=== PATIENT | male | born 1935 | race Caucasian/White ===

== ENCOUNTER 2017-12-22 13:00 | Inpatient (IN) | payer MEDICARE, OTHER ==
[~2017-12-22] VITALS: Ht 172.7 cm; Wt 73.9 kg
[2017-12-22] VITALS (15 sets, daily range): BP systolic 91–165; BP diastolic 51–82
[2017-12-22] MEDS ORDERED: NS 1000ml 2,200 ML IVLG ONE (13:15)
[2017-12-22] MEDS ORDERED: Piperacillin/Tazobactam 3.375 GM in NS 110 ML IVPB ONE (13:15)
[2017-12-22] MEDS ORDERED: Vancomycin 1.5gm/D5W 250ml 250 ML IVPB ONE (13:15)
--- NOTE | 2017-12-22 13:18 | Emergency Room Report ---
History of Present Illness General Chief Complaint: Dyspnea/Respdistress Source: EMS Present Illness HPI 82-year-old male presents with respiratory arrest and agonal respirations according to EMS after choking in the senior care while eating. Patient became pulseless here in the department and underwent a round of CPR while being bag mask ventilations and concomitantly intubated. He had return of spontaneous circulation immediately after one round of compressions and a single dose of epi. Allergies: Coded Allergies: No Known Allergies (Unverified , 12/22/17) Patient History Past Medical History: see triage record Reviewed Nursing Documentation: PMH: Agreed, PSxH: Agreed Nursing Documentation-PMH Hx Hypertension: Yes Review of Systems All Other Systems: negative except mentioned in HPI Physical Exam Vital Signs Date Time Temp Pulse Resp B/P (MAP) Pulse Ox O2 Delivery O2 Flow Rate FiO2 12/22/17 12:56 97.5 109 11 73/38 Sp02 EP Interpretation: reviewed, abnormal General Appearance: severe distress, lethargic Head: normocephalic, atraumatic Eyes: bilateral eye normal inspection, bilateral eye PERRL ENT: normal ENT inspection, normal pharynx - ricotta cheese like food in oropharynx, dry mucus membranes Neck: normal inspection, full range of motion, supple, supple/symm/no masses Respiratory: chest non-tender, lungs clear, no rhonchi - bilateral coarse rhonchi, chest symmetrical, palpation of chest normal Cardiovascular #1: normal peripheral pulses, regular rate, rhythm Cardiovascular #2: 2+ carotid (R), 2+ carotid (L) Gastrointestinal: normal inspection, non tender, soft, no mass, no guarding, no rebound Rectal: deferred Genitourinary: normal inspection, no CVA tenderness Musculoskeletal: back normal, gait/station normal, normal range of motion, non- tender, no calf tenderness Neurologic: responsive - unresponsive, GCS 3T Psychiatric: judgement/insight normal, memory normal, mood/affect normal, no suicidal/homicidal ideation Skin: normal color, no rash, warm/dry, normal turgor, pallor, cyanosis - facial cyanosis Lymphatic: no adenopathy Procedures Critical Care Time Critical Care Time 35 minutes excluding all procedures for need for emergent eval and management given his critical risk of airway, respiratory, and circulatory systems failing Central Line Central Line : Consent: Emergent Central Line Lumen: triple Maximal Sterile Barrier Tech: yes cap, yes mask, yes sterile gown, yes sterile gloves, yes large sterile sheet, yes hand hygiene, yes chlorhexidine prep No Max Barrier Tech Because: emergency insertion Central Line Postion: femoral (R) Anesthesia: Lidocaine Complications: none Central Line Post Position: sutured, good blood return Attempts: One Complications: None Intubation Intubation : Consent: Emergent Intubation Method: orotracheal Tube Size (cm): 7.0 Medications: Etomidate, Succinylcholine Breath Sounds after Intubation: equal Intubation Complications: no complications Post Intubation Xray: Yes Attempts: One Patient Tolerated: Well Complications: None Medical Decision Making Diagnostic Impression: Primary Impression: Respiratory distress Additional Impressions: Aspiration into airway Aspiration into respiratory tract ER Course patient coded and had immediate ROSC with one round of CPR and Epi, was intubate prior to code, and had orders initiated including broad-spectrum antibx for aspiration pneumonia. He remained hemodynamically stable and was admitted to the ICU after I spoke with Dr. Soliz. Chest X-Ray Diagnostic Results Chest X-Ray Diagnostic Results #1: Chest X-Ray Ordered: Yes # of Views/Limited/Complete: 1 View Indication: Shortness of Breath EP Interpretation: Yes Interpretation: other - ETT above mary Chest X-Ray Diagnostic Results #2: Chest X-Ray Ordered: Yes # of Views/Limited/Complete: 1 View Indication: Shortness of Breath EP Interpretation: Yes Interpretation: other - ET tube advanced now beyond clavicles and above the mary, evidence of aspiration with bilateral consolidation Last Vital Signs Date Time Temp Pulse Resp B/P (MAP) Pulse Ox O2 Delivery O2 Flow Rate FiO2 12/22/17 12:56 97.5 109 11 73/38 Status: improved Reevaluation Impression Potassium elevated, but this is likely hemolysis, redraw sent to the lab Disposition: ADMITTED INPATIENT Condition: Critical Physician Consult: Dr. Soliz agreed to admit this patient to the ICU ARMOND GARCIA M.D Dec 22, 2017 13:18
[2017-12-22 13:26] LABS: BASOPHILS % (AUTO) 0.8 % (0.0-2.0); EOSINOPHILS % (AUTO) 3.1 % (0.0-3.0); HEMATOCRIT 44.7 % (42.0-52.0); HEMOGLOBIN 13.5 G/DL (14.2-18.0); LYMPHOCYTES % (AUTO) 46.1 % (20.0-45.0); MEAN CORPUSCULAR VOLUME 86 FL (80-99); MONOCYTES % (AUTO) 8.9 % (1.0-10.0); NEUTROPHILS % (AUTO) 41.1 % (45.0-75.0); PLATELET COUNT 228 K/UL (150-450); RED BLOOD COUNT 5.23 M/UL (4.70-6.10); RED CELL DISTRIBUTION WIDTH 12.5 % (11.6-14.8); WHITE BLOOD COUNT 11.5 K/UL (4.8-10.8)
[2017-12-22] MEDS ORDERED: LISINOPRIL5 MG ORAL (13:30)
[2017-12-22] MEDS ORDERED: ASPIR 8181 MG ORAL (13:30)
[2017-12-22] MEDS ORDERED: MILK OF MA400 MG/51 ORAL (13:30)
[2017-12-22] MEDS ORDERED: MULTIVITAMINS1 EA13 ORAL (13:30)
[2017-12-22] MEDS ORDERED: METOPROLOL TART25 MG ORAL (13:30)
[2017-12-22] MEDS ORDERED: KLONOPIN0.5 MG ORAL (13:30)
[2017-12-22] MEDS ORDERED: TAMSULOSIN HCL0.4 MG ORAL (13:30)
[2017-12-22] MEDS ORDERED: Zosyn 3.375gm inj ONE (13:38)
[2017-12-22] MEDS ORDERED: Succinylcholine 20mg/ml 10ml vial ONE (13:46)
[2017-12-22] MEDS ORDERED: Etomidate 40mg/20ml Inj IV ONE (13:46)
[2017-12-22 13:51] LABS: ALANINE AMINOTRANSFERASE 21 U/L (12-78); ALBUMIN 3.1 G/DL (3.4-5.0); ALBUMIN/GLOBULIN RATIO 0.8 (1.0-2.7); ALKALINE PHOSPHATASE 60 U/L (46-116); ANION GAP 6 mmol/L (5-15); ASPARTATE AMINO TRANSFERASE 42 U/L (15-37); BILIRUBIN,TOTAL 0.5 MG/DL (0.2-1.0); BLOOD UREA NITROGEN 16 mg/dL (7-18); CALCIUM 8.3 MG/DL (8.5-10.1); CARBON DIOXIDE 25 MMOL/L (21-32); CHLORIDE 106 MMOL/L (98-107); CREATINE KINASE 123 U/L (26-308); CREATININE 1.1 MG/DL (0.55-1.30); SODIUM 137 MMOL/L (136-145); TRIGLYCERIDES 71 MG/DL (30-150)
[2017-12-22 13:52] LABS: POTASSIUM 8.3 MMOL/L (3.5-5.1)
[2017-12-22] MEDS ORDERED: ZYPREXA2.5 MG ORAL (14:26)
[2017-12-22] MEDS ORDERED: TYLENOL EXTRA500 MG ORAL (14:26)
[2017-12-22] MEDS ORDERED: fentaNYL 100 mcg/2 mL IV ONE ×2 (14:35→15:15)
[2017-12-22 14:38] LABS: APPEARANCE,URINE CLEAR; BILIRUBIN, URINE NEGATIVE (NEGATIVE); COLOR,URINE PALE YELLOW; GLUCOSE, URINE (UA) 3+ (NEGATIVE); KETONES,URINE NEGATIVE (NEGATIVE); LEUKOCYTE ESTERASE ,URINE 2+ (NEGATIVE); NITRITE,URINE NEGATIVE (NEGATIVE); PH,URINE 6 (4.5-8.0); PROTEIN,URINE 3+ (NEGATIVE); UROBILINOGEN,URINE NORMAL MG/DL (0.0-1.0)
--- NOTE | 2017-12-22 15:56 | Diagnostic Imaging Report ---
Indication: Shortness breath, status post endotracheal tube placement Technique: One view of the chest Comparison: none Findings: There is an endotracheal tube in place, tip projecting at or just above the thoracic inlet and likely at the level of the vocal cords. Interstitial and alveolar infiltrates are seen in the right upper lobe. Perihilar infiltrate and possible mass/adenopathy is demonstrated on the left. There is also diffuse interstitial disease bilaterally. The pleural spaces are clear. The heart size is normal. There are overlying defibrillator paddles Impression: High position of endotracheal tube, as described Bilateral residual and alveolar infiltrates versus edema, as described. Left perihilar disease, most likely consolidation but underlying mass is stable. Recommend follow-up to resolution.
--- NOTE | 2017-12-22 16:27 | Consultation ---
Consult Note Consult Note 82-year-old male presents with respiratory arrest and agonal respirations after choking episode in the intermediate while eating. Patient became pulseless in the ER department and underwent a round of CPR and was intubated. Patient recovered and now admitted to ICU. I was called to assist with the ventilator. Patient unable to give any history at this time. Allergies: No Known Allergies (Unverified , 12/22/17) PMH hypertension possible dementia possible psychiatric disorder MEDS and ALLERGIES reviewed PHYSICAL Sp02 EP Interpretation: reviewed, normal General Appearance: unresponsive Head: normocephalic, atraumatic Eyes: bilateral eye normal inspection Neck: normal inspection, carotid 2+ Respiratory: decreased breath sounds, minimal rhonchi Cardiovascular #1: regular rate, rhythm, no murmur without MRG Gastrointestinal: non tender, soft, non-distended, no HSM Musculoskeletal: no CC Neurologic: reduced LOC Laboratory Tests Test 12/22/17 13:11 12/22/17 14:10 12/22/17 15:00 White Blood Count 11.5 K/UL (4.8-10.8) H Red Blood Count 5.23 M/UL (4.70-6.10) Hemoglobin 13.5 G/DL (14.2-18.0) L Hematocrit 44.7 % (42.0-52.0) Mean Corpuscular Volume 86 FL (80-99) Mean Corpuscular Hemoglobin 25.9 PG (27.0-31.0) L Mean Corpuscular Hemoglobin Concent 30.2 G/DL (32.0-36.0) L Red Cell Distribution Width 12.5 % (11.6-14.8) Platelet Count 228 K/UL (150-450) Mean Platelet Volume 6.8 FL (6.5-10.1) Neutrophils (%) (Auto) 41.1 % (45.0-75.0) L Lymphocytes (%) (Auto) 46.1 % (20.0-45.0) H Monocytes (%) (Auto) 8.9 % (1.0-10.0) Eosinophils (%) (Auto) 3.1 % (0.0-3.0) H Basophils (%) (Auto) 0.8 % (0.0-2.0) Prothrombin Time 10.2 SEC (9.30-11.50) Prothromb Time International Ratio 1.0 (0.9-1.1) Activated Partial Thromboplast Time 27 SEC (23-33) Sodium Level 137 MMOL/L (136-145) Potassium Level 8.3 MMOL/L (3.5-5.1) *H 3.3 MMOL/L (3.5-5.1) #L Chloride Level 106 MMOL/L (98-107) Carbon Dioxide Level 25 MMOL/L (21-32) Anion Gap 6 mmol/L (5-15) Blood Urea Nitrogen 16 mg/dL (7-18) Creatinine 1.1 MG/DL (0.55-1.30) Estimat Glomerular Filtration Rate mL/min (>60) Glucose Level 186 MG/DL (74-106) H Lactic Acid Level 6.50 mmol/L (0.66-2.22) H 1.20 mmol/L (0.66-2.22) Calcium Level 8.3 MG/DL (8.5-10.1) L Total Bilirubin 0.5 MG/DL (0.2-1.0) Aspartate Amino Transf (AST/SGOT) 42 U/L (15-37) H Alanine Aminotransferase (ALT/SGPT) 21 U/L (12-78) Alkaline Phosphatase 60 U/L (46-116) Total Creatine Kinase 123 U/L (26-308) Creatine Kinase MB 2.0 NG/ML (0.0-3.6) Creatine Kinase MB Relative Index 1.6 Troponin I 0.003 ng/mL (0.000-0.056) Pro-B-Type Natriuretic Peptide 134 pg/mL (0-125) H Total Protein 7.1 G/DL (6.4-8.2) Albumin 3.1 G/DL (3.4-5.0) L Globulin 4.0 g/dL Albumin/Globulin Ratio 0.8 (1.0-2.7) L Triglycerides Level 71 MG/DL (30-150) Urine Color Pale yellow Urine Appearance Clear Urine pH 6 (4.5-8.0) Urine Specific [place] 1.020 (1.005-1.035) Urine Protein 3+ (NEGATIVE) H Urine Glucose (UA) 3+ (NEGATIVE) H Urine Ketones Negative (NEGATIVE) Urine Occult Blood 1+ (NEGATIVE) H Urine Nitrite Negative (NEGATIVE) Urine Bilirubin Negative (NEGATIVE) Urine Urobilinogen Normal MG/DL (0.0-1.0) Urine Leukocyte Esterase 2+ (NEGATIVE) H Urine RBC 0-2 /HPF (0 - 0) H Urine WBC 10-15 /HPF (0 - 0) H Urine Squamous Epithelial Cells Occasional /LPF Urine Bacteria Occasional /HPF (NONE) IMPRESSION Respiratory failure choking episode hyperkalemia s/p CPA possible anoxia hypertension PLAN ventilator support support care DVT prophylaxis IV hydation monitor clinically impression, plan, and exam edited and reviewed in detail care discussed with CHIKI LIN Dec 22, 2017 16:27
[2017-12-22] MEDS: Dyna-Hex 2% Top Sol 2oz TOPIC SCH (20:04)
[2017-12-22] MEDS: Cefepime HCl 1 GM in NS 55 ML IVPB SCH (20:36)
[2017-12-22] MEDS: Heparin 5000 units/ml inj SUBQ SCH (20:37)
[2017-12-23] VITALS (39 sets, daily range): BP systolic 97–164; BP diastolic 47–96
[2017-12-23 04:35] LABS: HEMATOCRIT 33.8 % (42.0-52.0); HEMOGLOBIN 10.7 G/DL (14.2-18.0); MEAN CORPUSCULAR VOLUME 83 FL (80-99); PLATELET COUNT 169 K/UL (150-450); RED BLOOD COUNT 4.07 M/UL (4.70-6.10); RED CELL DISTRIBUTION WIDTH 11.9 % (11.6-14.8); WHITE BLOOD COUNT 10.5 K/UL (4.8-10.8)
[2017-12-23 04:47] LABS: ANION GAP 7 mmol/L (5-15); BLOOD UREA NITROGEN 13 mg/dL (7-18); CALCIUM 7.6 MG/DL (8.5-10.1); CARBON DIOXIDE 24 MMOL/L (21-32); CHLORIDE 107 MMOL/L (98-107); CREATININE 0.9 MG/DL (0.55-1.30); SODIUM 138 MMOL/L (136-145)
[2017-12-23] MEDS: Cefepime HCl 1 GM in NS 55 ML IVPB SCH ×2 (08:49→20:50)
[2017-12-23] MEDS: Pantoprazole Inj IVP SCH (08:52)
[2017-12-23] MEDS: Heparin 5000 units/ml inj SUBQ SCH ×2 (08:53→20:51)
--- NOTE | 2017-12-23 12:20 | Diagnostic Imaging Report ---
Indication: Dyspnea Technique: XRAY Chest 1v Comparison: 12/22/2017 Findings: Heart size and mediastinal contours are stable. ET tube tip above the mary. NG tube tip in the proximal stomach, side-port at the region of the gastroesophageal junction. Advancement recommended. There is interstitial opacification/edema, right greater than left. Patchy perihilar airspace opacities are again noted, slightly decreased. No pneumothorax. No acute osseous abnormality. Impression: Persistent interstitial and patchy perihilar airspace opacities, slightly decreased from the prior exam. Radiographic follow-up to resolution recommended. NG tube tip in the proximal stomach, side-port at the region of the gastroesophageal junction. Advancement is recommended.
--- NOTE | 2017-12-23 12:25 | Critical Care Progress Note ---
Assessment/Plan Assessment/Plan IMPRESSION Respiratory failure choking episode hyperkalemia s/p CPA possible anoxia hypertension PLAN ventilator support and monitor acid base support care DVT prophylaxis IV hydration monitor clinically continue to assist nutrition hope to wean next 48 hours follow up cultures impression, plan, and exam edited and reviewed in detail care discussed with RN medications/laboratory data/nursing notes/ICU care reviewed in detail note reviewed and edited care discussed with RN and RT ICU time spent 38 minutes Critical Care - Subjective Interval Events: overnight without distres care noted ICU care noted ROS Limited/Unobtainable: Yes Condition: critical EKG Rhythm: Sinus Rhythm I&O: Intake and Output 12/22/17 12/23/17 19:00 07:00 Intake Total 242.886 ml 1293.860 ml Output Total 405 ml 610 ml Balance -162.114 ml 683.860 ml Intake Oral 0 ml IV Total 192.886 ml 1263.860 ml Other 50 ml 30 ml Output Urine Total 405 ml 610 ml # Bowel Movements 1 Critical Care - Objective ET-Tube: 7.0 ET Position: 26 Last 24 Hour Vital Signs Date Time Temp Pulse Resp B/P (MAP) Pulse Ox O2 Delivery O2 Flow Rate FiO2 12/23/17 11:00 84 17 134/63 98 Mechanical Ventilator 28 12/23/17 10:31 71 15 28 12/23/17 10:30 83 17 108/54 100 Mechanical Ventilator 28 12/23/17 10:00 69 15 121/52 100 Mechanical Ventilator 28 12/23/17 10:00 15 12/23/17 09:45 73 15 119/57 99 Mechanical Ventilator 28 12/23/17 09:30 99.1 72 15 115/53 99 Mechanical Ventilator 28 12/23/17 09:15 70 15 106/48 99 Mechanical Ventilator 28 12/23/17 09:00 79 16 97/47 99 Mechanical Ventilator 28 12/23/17 08:52 14 12/23/17 08:39 81 16 28 12/23/17 08:18 28 12/23/17 08:17 28 12/23/17 08:00 84 17 129/73 99 Mechanical Ventilator 40 12/23/17 08:00 84 12/23/17 08:00 40 12/23/17 07:04 85 18 40 12/23/17 07:00 54 19 119/55 100 Mechanical Ventilator 40 12/23/17 06:00 19 1/27/18 06:00 87 19 112/54 100 Mechanical Ventilator 40 12/23/17 05:22 19 12/23/17 05:07 88 18 40 12/23/17 05:00 88 18 106/53 100 Mechanical Ventilator 40 12/23/17 05:00 21 12/23/17 04:00 100.0 98 21 114/53 100 Mechanical Ventilator 40 12/23/17 04:00 21 12/23/17 04:00 98 12/23/17 04:00 40 12/23/17 03:16 94 20 40 12/23/17 03:00 95 21 104/50 100 Mechanical Ventilator 40 12/23/17 03:00 21 12/23/17 02:00 90 21 117/50 100 Mechanical Ventilator 40 12/23/17 02:00 21 12/23/17 01:00 86 21 116/49 100 Mechanical Ventilator 40 12/23/17 01:00 21 12/23/17 00:52 85 21 40 12/23/17 00:00 99.7 83 20 103/59 100 Mechanical Ventilator 40 12/23/17 00:00 40 12/23/17 00:00 20 12/22/17 23:01 80 20 50 12/22/17 23:00 80 19 116/56 100 Mechanical Ventilator 50 12/22/17 23:00 19 12/22/17 22:00 77 17 108/51 100 Mechanical Ventilator 50 12/22/17 22:00 17 12/22/17 21:00 21 12/22/17 21:00 77 21 108/66 100 Mechanical Ventilator 50 12/22/17 20:59 77 20 50 12/22/17 20:01 19 12/22/17 20:00 77 12/22/17 20:00 50 12/22/17 20:00 77 20 112/57 100 Mechanical Ventilator 50 12/22/17 19:15 81 24 50 12/22/17 19:00 97.9 76 17 150/67 100 Mechanical Ventilator 50 12/22/17 19:00 17 12/22/17 18:00 66 20 101/53 100 Mechanical Ventilator 50 12/22/17 17:23 50 12/22/17 17:07 68 12/22/17 17:00 94.0 68 18 134/82 100 12/22/17 17:00 79 19 50 12/22/17 16:06 98.0 77 15 103/67 98 Mechanical Ventilator 12/22/17 15:56 98.0 77 16 98/65 98 Mechanical Ventilator 50 12/22/17 15:40 98.0 77 16 98/65 98 Mechanical Ventilator 12/22/17 15:23 97.5 12/22/17 15:15 77 15 91/52 97 Mechanical Ventilator 12/22/17 15:05 80 13 50 12/22/17 14:55 21 12/22/17 14:55 83 21 Mechanical Ventilator 50 12/22/17 14:45 98.0 80 18 93/53 97 Mechanical Ventilator 12/22/17 14:32 97.5 83 21 95/53 97 Mechanical Ventilator 12/22/17 14:15 97.5 85 20 103/65 96 Mechanical Ventilator 12/22/17 14:05 88 30 50 12/22/17 14:02 88 30 Mechanical Ventilator 50 12/22/17 14:02 21 12/22/17 14:00 97.5 86 20 146/75 96 Mechanical Ventilator 12/22/17 13:41 97.5 87 20 165/73 95 Mechanical Ventilator 12/22/17 13:40 20 12/22/17 13:34 20 12/22/17 12:56 97.5 109 11 73/38 Labs: Sp02 EP Interpretation: reviewed, normal General Appearance: unresponsive Head: normocephalic, atraumatic Eyes: bilateral eye normal inspection Neck: normal inspection, carotid 2+ Respiratory: decreased breath sounds, minimal rhonchi Cardiovascular #1: regular rate, rhythm, no murmur without MRG Gastrointestinal: non tender, soft, non-distended, no HSM Musculoskeletal: no CC Neurologic: reduced LOC Micro: Microbiology Date/Time Source Procedure Growth Status 12/22/17 13:11 Blood Blood Culture - Preliminary Resulted 12/22/17 14:15 Nasal Nares Influenza Types A,B Antigen (GUNJAN) - Final Complete 12/22/17 14:10 Urine,Clean Catch Urine Culture - Preliminary Resulted CHIKI VAZQUEZ Dec 23, 2017 12:25
[2017-12-23] MEDS ORDERED: 1/2 NS 1000ml IV ONE ×2 (15:36→15:38)
--- NOTE | 2017-12-23 15:36 | Infectious Diseases Prog Note ---
Assessment/Plan Assessment/Plan Full consult dictated: A) 1) sepsis, gram + bacteremia, aspiration pna, uti, leukocytosis, fevers 2) pmh noted 3) allergies - negative P) 1) vancomycin, cefepime and flagyl 2) check cultures, labs and chest x-ray 3) thank you Subjective Allergies: Coded Allergies: No Known Allergies (Unverified , 12/22/17) Objective Vital Signs Last 24 Hour Vital Signs Date Time Temp Pulse Resp B/P (MAP) Pulse Ox O2 Delivery O2 Flow Rate FiO2 12/23/17 14:32 73 12 21 12/23/17 14:30 85 17 146/72 99 Mechanical Ventilator 28 12/23/17 14:00 78 16 125/59 99 Mechanical Ventilator 28 12/23/17 13:30 80 14 121/56 99 Mechanical Ventilator 28 12/23/17 13:00 18 12/23/17 13:00 95 18 136/74 99 Mechanical Ventilator 28 12/23/17 12:36 17 12/23/17 12:30 98 18 162/80 99 Mechanical Ventilator 28 12/23/17 12:29 110 17 28 12/23/17 12:00 98 12/23/17 12:00 99.1 96 18 156/89 100 Mechanical Ventilator 28 12/23/17 11:30 90 19 151/71 100 Mechanical Ventilator 28 12/23/17 11:00 84 17 134/63 98 Mechanical Ventilator 28 12/23/17 11:00 17 12/23/17 10:31 71 15 28 12/23/17 10:30 83 17 108/54 100 Mechanical Ventilator 28 12/23/17 10:00 69 15 121/52 100 Mechanical Ventilator 28 12/23/17 10:00 15 12/23/17 09:45 73 15 119/57 99 Mechanical Ventilator 28 12/23/17 09:30 99.1 72 15 115/53 99 Mechanical Ventilator 28 12/23/17 09:15 70 15 106/48 99 Mechanical Ventilator 28 12/23/17 09:00 79 16 97/47 99 Mechanical Ventilator 28 12/23/17 08:52 14 12/23/17 08:39 81 16 28 12/23/17 08:18 28 12/23/17 08:17 28 12/23/17 08:00 84 17 129/73 99 Mechanical Ventilator 40 12/23/17 08:00 84 12/23/17 08:00 40 12/23/17 07:04 85 18 40 12/23/17 07:00 54 19 119/55 100 Mechanical Ventilator 40 12/23/17 06:00 19 12/23/17 06:00 87 19 112/54 100 Mechanical Ventilator 40 12/23/17 05:22 19 12/23/17 05:07 88 18 40 12/23/17 05:00 88 18 106/53 100 Mechanical Ventilator 40 12/23/17 05:00 21 12/23/17 04:00 100.0 98 21 114/53 100 Mechanical Ventilator 40 12/23/17 04:00 21 12/23/17 04:00 98 12/23/17 04:00 40 12/23/17 03:16 94 20 40 12/23/17 03:00 95 21 104/50 100 Mechanical Ventilator 40 12/23/17 03:00 21 12/23/17 02:00 90 21 117/50 100 Mechanical Ventilator 40 12/23/17 02:00 21 12/23/17 01:00 86 21 116/49 100 Mechanical Ventilator 40 12/23/17 01:00 21 12/23/17 00:52 85 21 40 12/23/17 00:00 99.7 83 20 103/59 100 Mechanical Ventilator 40 12/23/17 00:00 40 12/23/17 00:00 20 12/22/17 23:01 80 20 50 12/22/17 23:00 80 19 116/56 100 Mechanical Ventilator 50 12/22/17 23:00 19 12/22/17 22:00 77 17 108/51 100 Mechanical Ventilator 50 12/22/17 22:00 17 12/22/17 21:00 21 12/22/17 21:00 77 21 108/66 100 Mechanical Ventilator 50 12/22/17 20:59 77 20 50 12/22/17 20:01 19 12/22/17 20:00 77 12/22/17 20:00 50 12/22/17 20:00 77 20 112/57 100 Mechanical Ventilator 50 12/22/17 19:15 81 24 50 12/22/17 19:00 97.9 76 17 150/67 100 Mechanical Ventilator 50 12/22/17 19:00 17 12/22/17 18:00 66 20 101/53 100 Mechanical Ventilator 50 1/26/18 17:23 50 12/22/17 17:07 68 12/22/17 17:00 94.0 68 18 134/82 100 12/22/17 17:00 79 19 50 12/22/17 16:06 98.0 77 15 103/67 98 Mechanical Ventilator 12/22/17 15:56 98.0 77 16 98/65 98 Mechanical Ventilator 50 12/22/17 15:40 98.0 77 16 98/65 98 Mechanical Ventilator Height (Feet): 5 Height (Inches): 9.00 Weight (Pounds): 146 Microbiology Date/Time Source Procedure Growth Status 12/22/17 13:26 Blood Blood Culture - Preliminary Resulted 12/22/17 13:11 Blood Blood Culture - Preliminary Resulted 12/22/17 19:30 Sputum Induced Gram Stain - Final Resulted 12/22/17 19:30 Sputum Induced Sputum Culture Pending Resulted 12/22/17 14:15 Nasal Nares Influenza Types A,B Antigen (GUNJAN) - Final Complete 12/22/17 14:10 Urine,Clean Catch Urine Culture - Preliminary Resulted Laboratory Tests Test 12/22/17 17:14 12/23/17 04:00 Arterial Blood pH 7.336 (7.350-7.450) 7.430 (7.350-7.450) Arterial Blood Partial Pressure CO2 44.6 mmHg (35.0-45.0) 34.2 mmHg (35.0-45.0) L Arterial Blood Partial Pressure O2 86.8 mmHg (75.0-100.0) 154.4 mmHg (75.0-100.0) H Arterial Blood HCO3 23.3 mmol/L (22.0-26.0) 22.2 mmol/L (22.0-26.0) Arterial Blood Oxygen Saturation 95.7 % (92.0-98.0) 98.6 % (92.0-98.0) H Arterial Blood Base Excess -2.6 -1.5 Rhett Test Positive Positive White Blood Count 10.5 K/UL (4.8-10.8) Red Blood Count 4.07 M/UL (4.70-6.10) L Hemoglobin 10.7 G/DL (14.2-18.0) L Hematocrit 33.8 % (42.0-52.0) L Mean Corpuscular Volume 83 FL (80-99) Mean Corpuscular Hemoglobin 26.3 PG (27.0-31.0) L Mean Corpuscular Hemoglobin Concent 31.7 G/DL (32.0-36.0) L Red Cell Distribution Width 11.9 % (11.6-14.8) Platelet Count 169 K/UL (150-450) Mean Platelet Volume 6.8 FL (6.5-10.1) Neutrophils (%) (Auto) % (45.0-75.0) Lymphocytes (%) (Auto) % (20.0-45.0) Monocytes (%) (Auto) % (1.0-10.0) Eosinophils (%) (Auto) % (0.0-3.0) Basophils (%) (Auto) % (0.0-2.0) Differential Total Cells Counted 100 Neutrophils % (Manual) 90 % (45-75) H Lymphocytes % (Manual) 7 % (20-45) L Monocytes % (Manual) 3 % (1-10) Eosinophils % (Manual) 0 % (0-3) Basophils % (Manual) 0 % (0-2) Band Neutrophils 0 % (0-8) Platelet Estimate Adequate Platelet Morphology Normal Sodium Level 138 MMOL/L (136-145) Potassium Level 4.0 MMOL/L (3.5-5.1) Chloride Level 107 MMOL/L (98-107) Carbon Dioxide Level 24 MMOL/L (21-32) Anion Gap 7 mmol/L (5-15) Blood Urea Nitrogen 13 mg/dL (7-18) Creatinine 0.9 MG/DL (0.55-1.30) Estimat Glomerular Filtration Rate mL/min (>60) Glucose Level 105 MG/DL (74-106) Calcium Level 7.6 MG/DL (8.5-10.1) L Current Medications Medications (Trade) Dose Ordered Sig/Mckenzie Route PRN Reason Start Time Stop Time Status Last Admin Dose Admin Cefepime HCl 1 gm/ Sodium Chloride 55 ml @ 110 mls/hr EVERY 12 HOURS IVPB 12/22/17 21:00 12/29/17 20:59 12/23/17 08:49 Chlorhexidine Gluconate (Liz-Hex 2%) 1 applic Q24H TOPIC 12/22/17 20:00 01/21/18 19:59 12/22/17 20:04 Heparin Sodium (Porcine) (Heparin 5000 units/ml) 5,000 units EVERY 12 HOURS SUBQ 12/22/17 21:00 01/21/18 20:59 12/23/17 08:53 Metronidazole 100 ml @ 100 mls/hr Q8HR IVPB 12/22/17 22:00 12/29/17 21:59 12/23/17 14:39 Pantoprazole (Protonix) 40 mg DAILY IVP 12/23/17 09:00 01/22/18 08:59 12/23/17 08:52 Propofol 100 ml @ 0 mls/hr Q24H IV 12/23/17 07:30 12/25/17 07:29 12/23/17 08:52 Sodium Chloride 1,000 ml @ 100 mls/hr Q10H IV 12/22/17 16:30 01/21/18 16:29 12/23/17 12:36 Vancomycin HCl (Vanco rx to dose) 1 ea DAILY PRN MISC Per rx protocol 12/23/17 15:30 01/22/18 15:29 Vancomycin HCl 1 gm/Dextrose 275 ml @ 183.708 mls/hr Q24H IVPB 12/24/17 16:00 12/29/17 15:59 Vancomycin HCl/ Dextrose 250 ml @ 125 mls/hr ONCE ONCE IVPB 12/23/17 16:30 12/23/17 18:29 MIKKI VIVAS Dec 23, 2017 15:36
[2017-12-23] MEDS ORDERED: Tubing IV Secondary IV ONE (15:38)
[2017-12-23] MEDS ORDERED: Vancomycin 1.5 GM/D5W 250ML IVPB ONE (16:30)
--- NOTE | 2017-12-23 19:15 | History and Physical Report ---
DATE OF ADMISSION: 12/22/2017 CHIEF COMPLAINT: Choking on food. HISTORY OF PRESENT ILLNESS: This is an 82-year-old male, who is one of my patients from [facility]. The patient apparently choked on food, developed respiratory failure, and transported by paramedics to this hospital. The patient was already seen by Pulmonary Dr. Andrade. He had a full CPR in the ED. At this point, the microbiology show gram positive cocci blood cultures. The patient is intubated and he is on a ventilator. PAST MEDICAL HISTORY: 1. Organic brain syndrome. 2. Hypertensive cardiovascular disease. 3. Paranoid schizophrenia. 4. Hyperlipidemia. 5. Benign prostatic hypertrophy. MEDICATIONS: correction medications, Tylenol p.r.n., baby aspirin, Klonopin, lisinopril, milk of magnesia, metoprolol, multivitamin, Zyprexa, tamsulosin. ALLERGIES: No known drug allergies. FAMILY HISTORY: Unable to obtain secondary to mental status. REVIEW OF SYSTEMS: Unable to obtain secondary to mental status. PHYSICAL EXAMINATION: GENERAL: This is an elderly cachectic male, who is on the ventilator. VITAL SIGNS: Blood pressure 106/48, pulse 70, respirations 15, oxygen saturation is 99%. HEENT: Head is normocephalic and atraumatic. Pupils are equal, round, and reactive to light and accommodation consensually. The patient is intubated transorally. NECK: Supple. Trachea midline. There was no lymphadenopathy or thyromegaly. LUNGS: Bilateral rhonchi. HEART: Regular rate and rhythm without rubs, murmurs, or gallops. ABDOMEN: Soft and nontender. Bowel sounds were active. EXTREMITIES: No clubbing, cyanosis, or edema. NEUROLOGICAL: He is sedated. There are no gross focal findings. LABORATORY AND ANCILLARY DATA: From CBC white count 10,500, hemoglobin 10.7. On admission, his hemoglobin was 13.5. Serum chemistry within normal limits. Lactic acid on admission was 1.2. Urinalysis on admission was essentially negative. As mentioned, earlier blood culture is significantly positive for gram-positive cocci in clusters. EKG, sinus rhythm with premature atrial complexes, low-voltage QRS, could not rule out old anteroseptal myocardial infarction. ASSESSMENT: 1. Aspiration episode with most likely aspiration and pneumonia in progress. 2. Gram-positive cocci sepsis, rule out pneumococcal sepsis versus Staphylococcus aureus sepsis. 3. Organic brain syndrome. 4. Hypertensive cardiovascular disease. 5. Paranoid schizophrenia. 6. Hyperlipidemia. 7. Benign prostatic hypertrophy. PLAN: 1. Currently, the patient is intubated. 2. Broad-spectrum IV antibiotics with MRSA or MSSA and also pneumococcal sepsis in mind. 3. Infectious Disease and Pulmonary consults. Ervin Mario M.D. DR: Navid JOB#: [id number] CC: HUONG
[2017-12-23] MEDS: Dyna-Hex 2% Top Sol 2oz TOPIC SCH (20:02)
[2017-12-24] VITALS (40 sets, daily range): BP systolic 117–173; BP diastolic 50–93
--- NOTE | 2017-12-24 01:45 | Consultation ---
DATE OF CONSULTATION: 12/23/2017 INFECTIOUS DISEASES CONSULTATION CONSULTING PHYSICIAN: Reggie Mckinley M.D. ATTENDING PHYSICIAN: Ervin Mario M.D. REASON FOR CONSULTATION: Gram-positive bacteremia, sepsis, fevers, leukocytosis, pneumonia, and UTI. PATIENT'S CHIEF COMPLAINT COMING TO HOSPITAL: Choking episode and respiratory failure. HISTORY OF PRESENT ILLNESS: This is an 82-year-old male, who comes in from the [facility], who had a choking episode and now is in respiratory failure. The patient is on a bed in [facility] ICU. Infectious Disease consultation was requested because the patient also has gram-positive bacteremia. The patient's workup also shows in addition to pneumonia, he has UTI. The patient is septic with fevers and leukocytosis. He is currently not on pressors. He is on vent. The patient was placed on vancomycin, Rocephin, and Flagyl pending workup. MAR was noted. Orders were noted. Notes were reviewed. Case was discussed with RN. PAST MEDICAL HISTORY: The patient's past medical history obtained from the records includes history of the following. The patient has history of dementia, history of BPH, history of hypertension, osteoarthritis, paranoid schizophrenia, anemia, anxiety disorder, and hyperlipidemia. MEDICATIONS: Upon reviewing the MAR, he is on the following medications. He is on vancomycin. He is on Protonix. He is on propofol. He is on Flagyl, Rocephin, and vancomycin. He is on chlorhexidine. He is on potassium and sodium. Outside medications were noted and reconciliated. ALLERGIES: No known drug allergies. SOCIAL HISTORY: Per the records. No mention of smoking, alcohol, or drug abuse. FAMILY HISTORY: Per the records. No mention of exposure to tuberculosis or cancer. REVIEW OF SYSTEMS: CONSTITUTIONAL: The patient has generalized weakness and fatigue. He is poorly responsive. He also had fever. No pressors at this time. HEAD AND NECK: Orally intubated. CARDIAC: No pressors. GASTROINTESTINAL: No nausea, vomiting, or diarrhea. GENITOURINARY: He has a Anderson. PULMONARY: He is on a vent. Some secretions. SKIN: No new rash. NEUROLOGICAL: No seizures. PHYSICAL EXAMINATION: VITAL SIGNS: Temperature is 99.1 degrees, T-max is 100.0 degrees, pulse rate has been as high as 110, respiratory rate 12, blood pressure 146/72, saturation 99% on FiO2 of 21% to 28%. He is currently on a vent, in respiratory failure. HEAD AND NECK: Oral exam, no thrush. Eye exam, no icterus. Normocephalic. He is orally intubated. could not assess. Neck is supple. HEART: Regular. No obvious gallop or murmur. ABDOMEN: Soft. Positive bowel sounds. LUNGS: Few bilateral rhonchi and rales. SKIN: No rash. No scars. MUSCULOSKELETAL: No effusion. Legs are without cellulitis. PERIPHERAL VASCULAR: No cyanosis or gangrene. RECTAL: Deferred. GENITOURINARY: He has Anderson. Urine is slightly cloudy. LINES: Line sites without phlebitis. NEUROLOGICAL: Awake and responsive. LABORATORY DATA: Laboratory data as follows. White count was 11.5 and now it is 10.5, hemoglobin 10.7. Creatinine is 0.9. Chest x-ray shows persistent interstitial and patchy perihilar airspace disease chest x-ray was noted and reviewed. Previous chest x-ray showed bilateral alveolar infiltrates. Report was noted. White count on admission 11.5. UA had 10-15 white blood cells, 2+ leukocyte esterase. Cultures at this time, blood cultures in both bottles had gram-positive cocci in clusters, identification pending. Urine culture pending. Influenza is negative. Sputum culture is pending. ASSESSMENT AND PLAN: 1. The patient has gram-positive bacteremia, sepsis, leukocytosis, and fevers, likely aspiration pneumonia with possible healthcare-acquired pneumonia. The patient had a choking episode, which suggests aspiration pneumonia. There is risk of methicillin-resistant Staphylococcus aureus and gram-negatives also. The patient has what looks like urinary tract infection in addition to pneumonia with sepsis. Continue vancomycin, Rocephin, and Flagyl for possible antibiotic coverage. Check identification of blood cultures. Check urine culture and sputum culture. Check followup labs. Check chest x-ray. Continue vancomycin, Rocephin, and Flagyl for now. Continue intensive care unit care. 2. Respiratory failure, on ventilator. 3. Dementia. 4. Benign prostatic hypertrophy. 5. Essential hypertension. 6. Osteoarthritis. 7. Paranoid schizophrenia. 8. Anemia. 9. Anxiety. 10. Hyperlipidemia. 11. No known allergies. 12. Social history negative. 13. Family history noncontributory. 14. MAR was noted. 15. Case was discussed with RN. 16. Continue treatment per primary consultants. 17. Intensive care unit care. 18. Skin care protocol. 19. Notes and records were noted. 20. Orders were entered. Reggie Mckinley M.D. DR: William JOB#: [id number] CC:
[2017-12-24 04:29] LABS: BASOPHILS % (AUTO) 0.5 % (0.0-2.0); EOSINOPHILS % (AUTO) 1.6 % (0.0-3.0); HEMATOCRIT 35.3 % (42.0-52.0); HEMOGLOBIN 11.1 G/DL (14.2-18.0); LYMPHOCYTES % (AUTO) 16.1 % (20.0-45.0); MEAN CORPUSCULAR VOLUME 83 FL (80-99); MONOCYTES % (AUTO) 9.8 % (1.0-10.0); PLATELET COUNT 184 K/UL (150-450); RED BLOOD COUNT 4.27 M/UL (4.70-6.10); RED CELL DISTRIBUTION WIDTH 11.8 % (11.6-14.8); WHITE BLOOD COUNT 7.5 K/UL (4.8-10.8)
[2017-12-24 04:36] LABS: ANION GAP 6 mmol/L (5-15); BLOOD UREA NITROGEN 9 mg/dL (7-18); CALCIUM 8.2 MG/DL (8.5-10.1); CARBON DIOXIDE 27 MMOL/L (21-32); CHLORIDE 109 MMOL/L (98-107); CREATININE 0.8 MG/DL (0.55-1.30); POTASSIUM 3.5 MMOL/L (3.5-5.1); SODIUM 142 MMOL/L (136-145)
[2017-12-24] MEDS: Cefepime HCl 1 GM in NS 55 ML IVPB SCH ×2 (08:49→20:40)
[2017-12-24] MEDS: Pantoprazole Inj IVP SCH (08:49)
[2017-12-24] MEDS: Heparin 5000 units/ml inj SUBQ SCH ×2 (08:51→20:47)
--- NOTE | 2017-12-24 09:28 | General Progress Note ---
Assessment/Plan Assessment/Plan Resp. Failure secondary to massive aspiration - Vent. Trying to wean. Aspiration Pneumonia - IV Abx Gram Positive sepsis secondary to avove. R/O MRSA or VRE sepsis Subjective Allergies: Coded Allergies: No Known Allergies (Unverified , 12/22/17) Subjective Obtunded Objective Last 24 Hour Vital Signs Date Time Temp Pulse Resp B/P (MAP) Pulse Ox O2 Delivery O2 Flow Rate FiO2 12/24/17 07:00 84 18 121/65 97 Mechanical Ventilator 21 12/24/17 07:00 18 12/24/17 06:51 89 16 21 12/24/17 06:00 82 19 132/63 97 Mechanical Ventilator 21 12/24/17 06:00 19 12/24/17 05:08 89 17 21 12/24/17 05:00 20 12/24/17 05:00 88 19 158/68 95 Mechanical Ventilator 21 12/24/17 04:00 98.8 91 19 170/73 96 Mechanical Ventilator 21 12/24/17 04:00 21 12/24/17 04:00 19 12/24/17 04:00 91 12/24/17 03:31 23 12/24/17 03:01 87 16 21 12/24/17 03:00 92 19 158/61 100 Mechanical Ventilator 21 12/24/17 03:00 20 12/24/17 02:00 91 19 147/80 97 Mechanical Ventilator 21 12/24/17 02:00 19 12/24/17 01:00 87 18 173/89 98 Mechanical Ventilator 21 12/24/17 01:00 20 12/24/17 01:00 92 16 21 12/24/17 00:00 99.0 85 18 129/93 97 Mechanical Ventilator 21 12/24/17 00:00 19 12/24/17 00:00 21 12/24/17 00:00 85 12/23/17 23:08 88 19 21 12/23/17 23:01 18 12/23/17 23:00 90 18 150/78 97 Mechanical Ventilator 21 12/23/17 22:30 88 18 145/80 97 Mechanical Ventilator 21 12/23/17 22:00 90 18 140/81 97 Mechanical Ventilator 21 12/23/17 22:00 18 12/23/17 21:30 96 18 143/81 97 Mechanical Ventilator 21 12/23/17 21:19 72 16 21 12/23/17 21:00 18 12/23/17 21:00 90 18 130/65 97 Mechanical Ventilator 21 12/23/17 20:30 90 18 140/70 97 Mechanical Ventilator 21 12/23/17 20:00 21 12/23/17 20:00 99.7 92 17 146/67 97 Mechanical Ventilator 21 12/23/17 20:00 17 12/23/17 20:00 88 12/23/17 19:13 86 16 21 12/23/17 19:00 86 16 143/64 97 Mechanical Ventilator 21 12/23/17 18:30 85 15 137/63 96 Mechanical Ventilator 21 12/23/17 18:00 88 16 143/67 98 Mechanical Ventilator 21 12/23/17 17:30 81 15 135/62 98 Mechanical Ventilator 21 12/23/17 17:00 100 18 160/96 96 Mechanical Ventilator 21 12/23/17 16:58 76 16 21 12/23/17 16:52 16 12/23/17 16:30 98.7 74 14 135/65 99 Mechanical Ventilator 28 12/23/17 16:00 79 12/23/17 16:00 18 12/23/17 16:00 21 12/23/17 16:00 76 15 140/60 98 Mechanical Ventilator 28 12/23/17 15:30 80 17 140/63 97 Mechanical Ventilator 28 12/23/17 15:00 81 16 164/78 97 Mechanical Ventilator 28 12/23/17 15:00 17 12/23/17 14:39 16 12/23/17 14:32 73 12 21 12/23/17 14:30 85 17 146/72 99 Mechanical Ventilator 28 12/23/17 14:00 78 16 125/59 99 Mechanical Ventilator 28 12/23/17 13:30 80 14 121/56 99 Mechanical Ventilator 28 12/23/17 13:00 18 12/23/17 13:00 95 18 136/74 99 Mechanical Ventilator 28 12/23/17 12:36 17 12/23/17 12:30 98 18 162/80 99 Mechanical Ventilator 28 12/23/17 12:29 110 17 28 12/23/17 12:00 98 12/23/17 12:00 28 12/23/17 12:00 99.1 96 18 156/89 100 Mechanical Ventilator 28 12/23/17 11:30 90 19 151/71 100 Mechanical Ventilator 28 12/23/17 11:00 84 17 134/63 98 Mechanical Ventilator 28 12/23/17 11:00 17 12/23/17 10:31 71 15 28 12/23/17 10:30 83 17 108/54 100 Mechanical Ventilator 28 12/23/17 10:00 69 15 121/52 100 Mechanical Ventilator 28 12/23/17 10:00 15 12/23/17 09:45 73 15 119/57 99 Mechanical Ventilator 28 12/23/17 09:30 99.1 72 15 115/53 99 Mechanical Ventilator 28 Intake and Output 12/23/17 12/24/17 19:00 07:00 Intake Total 1181.96 ml 1738.488 ml Output Total 1500 ml 475 ml Balance -318.04 ml 1263.488 ml Free Water 30 ml IV Total 1121.96 ml 1368.488 ml Tube Feeding 60 ml 340 ml Output Urine Total 1500 ml 475 ml # Bowel Movements 1 Laboratory Tests 12/24/17 03:35: White Blood Count 7.5, Red Blood Count 4.27L, Hemoglobin 11.1L, Hematocrit 35.3L , Mean Corpuscular Volume 83, Mean Corpuscular Hemoglobin 26.1L, Mean Corpuscular Hemoglobin Concent 31.5L, Red Cell Distribution Width 11.8, Platelet Count 184, Mean Platelet Volume 6.5, Neutrophils (%) (Auto) 72.0, Lymphocytes (%) (Auto) 16.1L, Monocytes (%) (Auto) 9.8, Eosinophils (%) (Auto) 1.6, Basophils (%) (Auto) 0.5, Sodium Level 142, Potassium Level 3.5, Chloride Level 109H, Carbon Dioxide Level 27, Anion Gap 6, Blood Urea Nitrogen 9, Creatinine 0.8, Estimat Glomerular Filtration Rate , Glucose Level 90, Calcium Level 8.2L, Magnesium Level 1.6L Height (Feet): 5 Height (Inches): 9.00 Weight (Pounds): 139 Objective On Vent CV RR Lungs B Ronchi Abd SNT. BS + No HSM. E No CCE Neuro Nonfocal. JAYSHREE RODRIGUEZ Dec 24, 2017 09:28
--- NOTE | 2017-12-24 11:17 | Critical Care Progress Note ---
Assessment/Plan Assessment/Plan IMPRESSION Respiratory failure choking episode hyperkalemia s/p CPA possible anoxia hypertension PLAN ventilator support and monitor acid base support care DVT prophylaxis IV hydration noted monitor clinically continue to assist nutrition and monitor hope to wean in am follow up cultures guarded but improved impression, plan, and exam edited and reviewed in detail care discussed with RN medications/laboratory data/nursing notes/ICU care reviewed in detail note reviewed and edited care discussed with RN and RT ICU time spent 40 minutes Critical Care - Subjective Interval Events: care noted no distress on the ventilator ROS Limited/Unobtainable: Yes EKG Rhythm: Sinus Rhythm Residuals: minimal Tube Feeding Tolerated: yes I&O: Intake and Output 12/23/17 12/24/17 19:00 07:00 Intake Total 1181.96 ml 1738.488 ml Output Total 1500 ml 475 ml Balance -318.04 ml 1263.488 ml Free Water 30 ml IV Total 1121.96 ml 1368.488 ml Tube Feeding 60 ml 340 ml Output Urine Total 1500 ml 475 ml # Bowel Movements 1 Critical Care - Objective ET-Tube: 7.0 ET Position: 26 Last 24 Hour Vital Signs Date Time Temp Pulse Resp B/P (MAP) Pulse Ox O2 Delivery O2 Flow Rate FiO2 12/24/17 10:59 90 21 21 12/24/17 09:25 100 21 21 12/24/17 07:00 84 18 121/65 97 Mechanical Ventilator 21 12/24/17 07:00 18 12/24/17 06:51 89 16 21 12/24/17 06:00 82 19 132/63 97 Mechanical Ventilator 21 12/24/17 06:00 19 12/24/17 05:08 89 17 21 12/24/17 05:00 20 12/24/17 05:00 88 19 158/68 95 Mechanical Ventilator 21 12/24/17 04:00 98.8 91 19 170/73 96 Mechanical Ventilator 21 12/24/17 04:00 21 12/24/17 04:00 19 12/24/17 04:00 91 12/24/17 03:31 23 12/24/17 03:01 87 16 21 12/24/17 03:00 92 19 158/61 100 Mechanical Ventilator 21 12/24/17 03:00 20 12/24/17 02:00 91 19 147/80 97 Mechanical Ventilator 21 1/28/18 02:00 19 12/24/17 01:00 87 18 173/89 98 Mechanical Ventilator 21 12/24/17 01:00 20 12/24/17 01:00 92 16 21 12/24/17 00:00 99.0 85 18 129/93 97 Mechanical Ventilator 21 12/24/17 00:00 19 12/24/17 00:00 21 12/24/17 00:00 85 12/23/17 23:08 88 19 21 12/23/17 23:01 18 12/23/17 23:00 90 18 150/78 97 Mechanical Ventilator 21 12/23/17 22:30 88 18 145/80 97 Mechanical Ventilator 21 12/23/17 22:00 90 18 140/81 97 Mechanical Ventilator 21 12/23/17 22:00 18 12/23/17 21:30 96 18 143/81 97 Mechanical Ventilator 21 12/23/17 21:19 72 16 21 12/23/17 21:00 18 12/23/17 21:00 90 18 130/65 97 Mechanical Ventilator 21 12/23/17 20:30 90 18 140/70 97 Mechanical Ventilator 21 12/23/17 20:00 21 12/23/17 20:00 99.7 92 17 146/67 97 Mechanical Ventilator 21 12/23/17 20:00 17 12/23/17 20:00 88 12/23/17 19:13 86 16 21 12/23/17 19:00 86 16 143/64 97 Mechanical Ventilator 21 12/23/17 18:30 85 15 137/63 96 Mechanical Ventilator 21 12/23/17 18:00 88 16 143/67 98 Mechanical Ventilator 21 12/23/17 17:30 81 15 135/62 98 Mechanical Ventilator 21 12/23/17 17:00 100 18 160/96 96 Mechanical Ventilator 21 12/23/17 16:58 76 16 21 12/23/17 16:52 16 12/23/17 16:30 98.7 74 14 135/65 99 Mechanical Ventilator 28 12/23/17 16:00 79 12/23/17 16:00 18 12/23/17 16:00 21 12/23/17 16:00 76 15 140/60 98 Mechanical Ventilator 28 12/23/17 15:30 80 17 140/63 97 Mechanical Ventilator 28 12/23/17 15:00 81 16 164/78 97 Mechanical Ventilator 28 12/23/17 15:00 17 12/23/17 14:39 16 12/23/17 14:32 73 12 21 12/23/17 14:30 85 17 146/72 99 Mechanical Ventilator 28 12/23/17 14:00 78 16 125/59 99 Mechanical Ventilator 28 12/23/17 13:30 80 14 121/56 99 Mechanical Ventilator 28 12/23/17 13:00 18 12/23/17 13:00 95 18 136/74 99 Mechanical Ventilator 28 12/23/17 12:36 17 12/23/17 12:30 98 18 162/80 99 Mechanical Ventilator 28 12/23/17 12:29 110 17 28 12/23/17 12:00 98 12/23/17 12:00 28 12/23/17 12:00 99.1 96 18 156/89 100 Mechanical Ventilator 28 12/23/17 11:30 90 19 151/71 100 Mechanical Ventilator 28 Labs: Labs Test 12/22/17 13:11 12/22/17 14:10 12/22/17 15:00 12/22/17 17:14 White Blood Count 11.5 K/UL (4.8-10.8) Red Blood Count 5.23 M/UL (4.70-6.10) Hemoglobin 13.5 G/DL (14.2-18.0) Hematocrit 44.7 % (42.0-52.0) Mean Corpuscular Volume 86 FL (80-99) Mean Corpuscular Hemoglobin 25.9 PG (27.0-31.0) Mean Corpuscular Hemoglobin Concent 30.2 G/DL (32.0-36.0) Red Cell Distribution Width 12.5 % (11.6-14.8) Platelet Count 228 K/UL (150-450) Mean Platelet Volume 6.8 FL (6.5-10.1) Neutrophils (%) (Auto) 41.1 % (45.0-75.0) Lymphocytes (%) (Auto) 46.1 % (20.0-45.0) Monocytes (%) (Auto) 8.9 % (1.0-10.0) Eosinophils (%) (Auto) 3.1 % (0.0-3.0) Basophils (%) (Auto) 0.8 % (0.0-2.0) Prothrombin Time 10.2 SEC (9.30-11.50) Prothromb Time International Ratio 1.0 (0.9-1.1) Activated Partial Thromboplast Time 27 SEC (23-33) Sodium Level 137 MMOL/L (136-145) Potassium Level 8.3 MMOL/L (3.5-5.1) 3.3 MMOL/L (3.5-5.1) Chloride Level 106 MMOL/L (98-107) Carbon Dioxide Level 25 MMOL/L (21-32) Anion Gap 6 mmol/L (5-15) Blood Urea Nitrogen 16 mg/dL (7-18) Creatinine 1.1 MG/DL (0.55-1.30) Estimat Glomerular Filtration Rate mL/min (>60) Glucose Level 186 MG/DL (74-106) Lactic Acid Level 6.50 mmol/L (0.66-2.22) 1.20 mmol/L (0.66-2.22) Calcium Level 8.3 MG/DL (8.5-10.1) Total Bilirubin 0.5 MG/DL (0.2-1.0) Aspartate Amino Transf (AST/SGOT) 42 U/L (15-37) Alanine Aminotransferase (ALT/SGPT) 21 U/L (12-78) Alkaline Phosphatase 60 U/L (46-116) Total Creatine Kinase 123 U/L (26-308) Creatine Kinase MB 2.0 NG/ML (0.0-3.6) Creatine Kinase MB Relative Index 1.6 Troponin I 0.003 ng/mL (0.000-0.056) Pro-B-Type Natriuretic Peptide 134 pg/mL (0-125) Total Protein 7.1 G/DL (6.4-8.2) Albumin 3.1 G/DL (3.4-5.0) Globulin 4.0 g/dL Albumin/Globulin Ratio 0.8 (1.0-2.7) Triglycerides Level 71 MG/DL (30-150) Urine Color Pale yellow Urine Appearance Clear Urine pH 6 (4.5-8.0) Urine Specific Olds 1.020 (1.005-1.035) Urine Protein 3+ (NEGATIVE) Urine Glucose (UA) 3+ (NEGATIVE) Urine Ketones Negative (NEGATIVE) Urine Occult Blood 1+ (NEGATIVE) Urine Nitrite Negative (NEGATIVE) Urine Bilirubin Negative (NEGATIVE) Urine Urobilinogen Normal MG/DL (0.0-1.0) Urine Leukocyte Esterase 2+ (NEGATIVE) Urine RBC 0-2 /HPF (0 - 0) Urine WBC 10-15 /HPF (0 - 0) Urine Squamous Epithelial Cells Occasional /LPF Urine Bacteria Occasional /HPF (NONE) Arterial Blood pH 7.336 (7.350-7.450) Arterial Blood Partial Pressure CO2 44.6 mmHg (35.0-45.0) Arterial Blood Partial Pressure O2 86.8 mmHg (75.0-100.0) Arterial Blood HCO3 23.3 mmol/L (22.0-26.0) Arterial Blood Oxygen Saturation 95.7 % (92.0-98.0) Arterial Blood Base Excess -2.6 Rhett Test Positive Test 12/23/17 04:00 12/24/17 03:35 White Blood Count 10.5 K/UL (4.8-10.8) 7.5 K/UL (4.8-10.8) Red Blood Count 4.07 M/UL (4.70-6.10) 4.27 M/UL (4.70-6.10) Hemoglobin 10.7 G/DL (14.2-18.0) 11.1 G/DL (14.2-18.0) Hematocrit 33.8 % (42.0-52.0) 35.3 % (42.0-52.0) Mean Corpuscular Volume 83 FL (80-99) 83 FL (80-99) Mean Corpuscular Hemoglobin 26.3 PG (27.0-31.0) 26.1 PG (27.0-31.0) Mean Corpuscular Hemoglobin Concent 31.7 G/DL (32.0-36.0) 31.5 G/DL (32.0-36.0) Red Cell Distribution Width 11.9 % (11.6-14.8) 11.8 % (11.6-14.8) Platelet Count 169 K/UL (150-450) 184 K/UL (150-450) Mean Platelet Volume 6.8 FL (6.5-10.1) 6.5 FL (6.5-10.1) Neutrophils (%) (Auto) % (45.0-75.0) 72.0 % (45.0-75.0) Lymphocytes (%) (Auto) % (20.0-45.0) 16.1 % (20.0-45.0) Monocytes (%) (Auto) % (1.0-10.0) 9.8 % (1.0-10.0) Eosinophils (%) (Auto) % (0.0-3.0) 1.6 % (0.0-3.0) Basophils (%) (Auto) % (0.0-2.0) 0.5 % (0.0-2.0) Differential Total Cells Counted 100 Neutrophils % (Manual) 90 % (45-75) Lymphocytes % (Manual) 7 % (20-45) Monocytes % (Manual) 3 % (1-10) Eosinophils % (Manual) 0 % (0-3) Basophils % (Manual) 0 % (0-2) Band Neutrophils 0 % (0-8) Platelet Estimate Adequate Platelet Morphology Normal Arterial Blood pH 7.430 (7.350-7.450) Arterial Blood Partial Pressure CO2 34.2 mmHg (35.0-45.0) Arterial Blood Partial Pressure O2 154.4 mmHg (75.0-100.0) Arterial Blood HCO3 22.2 mmol/L (22.0-26.0) Arterial Blood Oxygen Saturation 98.6 % (92.0-98.0) Arterial Blood Base Excess -1.5 Rhett Test Positive Sodium Level 138 MMOL/L (136-145) 142 MMOL/L (136-145) Potassium Level 4.0 MMOL/L (3.5-5.1) 3.5 MMOL/L (3.5-5.1) Chloride Level 107 MMOL/L (98-107) 109 MMOL/L (98-107) Carbon Dioxide Level 24 MMOL/L (21-32) 27 MMOL/L (21-32) Anion Gap 7 mmol/L (5-15) 6 mmol/L (5-15) Blood Urea Nitrogen 13 mg/dL (7-18) 9 mg/dL (7-18) Creatinine 0.9 MG/DL (0.55-1.30) 0.8 MG/DL (0.55-1.30) Estimat Glomerular Filtration Rate mL/min (>60) mL/min (>60) Glucose Level 105 MG/DL (74-106) 90 MG/DL (74-106) Calcium Level 7.6 MG/DL (8.5-10.1) 8.2 MG/DL (8.5-10.1) Magnesium Level 1.6 MG/DL (1.8-2.4) Objective: Sp02 EP Interpretation: reviewed, normal General Appearance: unresponsive Head: normocephalic, atraumatic Eyes: bilateral eye normal inspection Neck: normal inspection, carotid 2+ Respiratory: decreased breath sounds, minimal rhonchi Cardiovascular #1: regular rate, rhythm, no murmur without MRG Gastrointestinal: non tender, soft, non-distended, no HSM Musculoskeletal: no CC Neurologic: reduced LOC Micro: Microbiology Date/Time Source Procedure Growth Status 12/22/17 13:26 Blood Blood Culture - Preliminary Staphylococcus Species Resulted 12/22/17 13:11 Blood Blood Culture - Preliminary Staphylococcus Species Resulted 12/22/17 19:30 Sputum Induced Gram Stain - Final Resulted 12/22/17 19:30 Sputum Induced Sputum Culture Pending Resulted 12/22/17 15:12 Nasal Nares MRSA Culture - Final NO METHICILLIN RESISTANT STAPH AUREUS... Complete 12/22/17 14:15 Nasal Nares Influenza Types A,B Antigen (GUNJAN) - Final Complete 12/22/17 14:10 Urine,Clean Catch Urine Culture - Preliminary Gram Negative Bacillus 1 Resulted 12/22/17 15:12 Rectum VRE Culture - Final NO VANCOMYCIN RESISTANT ENTEROCOCCUS ... Complete CHIKI VAZQUEZ Dec 24, 2017 11:17
[2017-12-24] MEDS: Vancomycin 1gm/D5W 275ml IVPB SCH ×2 (16:01)
[2017-12-24] MEDS: Dyna-Hex 2% Top Sol 2oz TOPIC SCH (19:55)
[2017-12-25] VITALS (40 sets, daily range): BP systolic 120–167; BP diastolic 54–81
--- NOTE | 2017-12-25 07:09 | General Progress Note ---
Assessment/Plan Assessment/Plan Resp. Failure secondary to massive aspiration - Vent. Trying to wean. Aspiration Pneumonia - IV Abx Gram Positive sepsis secondary to avove. R/O MRSA or VRE sepsis Check Labs Subjective Allergies: Coded Allergies: No Known Allergies (Unverified , 12/22/17) Subjective Obtunded Objective Last 24 Hour Vital Signs Date Time Temp Pulse Resp B/P (MAP) Pulse Ox O2 Delivery O2 Flow Rate FiO2 12/25/17 06:00 77 19 136/55 100 Mechanical Ventilator 21 12/25/17 06:00 18 12/25/17 05:37 76 20 21 12/25/17 05:30 80 18 134/55 100 Mechanical Ventilator 21 12/25/17 05:00 72 18 139/55 100 Mechanical Ventilator 21 12/25/17 05:00 18 12/25/17 04:00 73 12/25/17 04:00 20 12/25/17 04:00 21 12/25/17 04:00 99.0 73 17 134/55 100 Mechanical Ventilator 21 12/25/17 03:43 80 18 21 12/25/17 03:30 79 18 138/55 100 Mechanical Ventilator 21 12/25/17 03:00 18 12/25/17 03:00 86 19 166/71 100 Mechanical Ventilator 21 12/25/17 03:00 97 16 160/74 97 Mechanical Ventilator 21 12/25/17 02:30 98 20 167/65 95 Mechanical Ventilator 21 12/25/17 02:00 18 12/25/17 02:00 97 16 160/74 97 Mechanical Ventilator 21 12/25/17 01:30 94 18 125/60 97 Mechanical Ventilator 21 12/25/17 01:16 87 22 21 12/25/17 01:00 18 12/25/17 01:00 76 16 128/61 97 Mechanical Ventilator 21 12/25/17 00:30 77 16 130/61 97 Mechanical Ventilator 21 12/25/17 00:00 21 12/25/17 00:00 18 12/25/17 00:00 99.2 78 18 124/54 97 Mechanical Ventilator 21 12/25/17 00:00 78 12/24/17 23:30 80 18 126/56 96 Mechanical Ventilator 21 12/24/17 23:17 82 17 21 12/24/17 23:00 82 20 130/53 96 Mechanical Ventilator 21 12/24/17 23:00 18 12/24/17 22:30 85 20 143/66 97 Mechanical Ventilator 21 12/24/17 22:00 86 20 153/67 96 Mechanical Ventilator 21 12/24/17 22:00 17 12/24/17 21:30 86 18 147/67 97 Mechanical Ventilator 21 12/24/17 21:18 84 19 21 12/24/17 21:00 95 22 118/57 97 Mechanical Ventilator 21 12/24/17 21:00 17 12/24/17 20:30 95 22 118/57 97 Mechanical Ventilator 21 12/24/17 20:00 92 12/24/17 20:00 89 22 153/70 98 Mechanical Ventilator 21 12/24/17 20:00 21 12/24/17 20:00 18 12/24/17 19:28 22 12/24/17 19:20 88 21 21 12/24/17 19:00 89 22 153/70 98 Mechanical Ventilator 21 12/24/17 18:30 84 22 119/53 97 Mechanical Ventilator 21 12/24/17 18:00 99.7 86 22 139/63 97 Mechanical Ventilator 21 12/24/17 17:30 89 22 130/58 97 Mechanical Ventilator 21 12/24/17 17:00 100 23 154/78 96 Mechanical Ventilator 21 12/24/17 16:44 97 21 21 12/24/17 16:30 97 23 144/67 96 Mechanical Ventilator 21 12/24/17 16:01 23 12/24/17 16:00 21 12/24/17 16:00 95 12/24/17 16:00 100.0 95 24 141/68 97 Mechanical Ventilator 21 12/24/17 15:30 97 23 140/60 96 Mechanical Ventilator 21 12/24/17 15:00 104 23 163/70 96 Mechanical Ventilator 21 12/24/17 14:50 102 24 21 12/24/17 14:30 94 21 138/70 97 Mechanical Ventilator 21 12/24/17 14:00 93 18 147/67 97 Mechanical Ventilator 21 12/24/17 13:30 86 18 125/62 97 Mechanical Ventilator 21 12/24/17 13:00 82 18 117/63 97 Mechanical Ventilator 21 12/24/17 12:59 85 17 21 12/24/17 12:37 22 12/24/17 12:30 80 18 140/51 98 Mechanical Ventilator 21 12/24/17 12:00 98.7 81 18 129/54 98 Mechanical Ventilator 21 12/24/17 12:00 21 12/24/17 12:00 20 12/24/17 12:00 92 12/24/17 11:30 80 18 125/50 98 Mechanical Ventilator 21 12/24/17 11:00 75 16 123/52 97 Mechanical Ventilator 21 12/24/17 10:59 90 21 21 12/24/17 10:30 95 18 137/56 98 Mechanical Ventilator 21 12/24/17 10:00 97 18 143/91 95 Mechanical Ventilator 21 12/24/17 10:00 18 12/24/17 09:30 85 18 124/55 97 Mechanical Ventilator 21 12/24/17 09:25 100 21 21 12/24/17 09:00 82 18 130/58 98 Mechanical Ventilator 21 12/24/17 08:30 84 18 136/58 98 Mechanical Ventilator 21 12/24/17 08:00 86 12/24/17 08:00 21 12/24/17 08:00 98.5 81 18 127/56 98 Mechanical Ventilator 21 12/24/17 07:30 83 16 130/61 98 Mechanical Ventilator 21 Intake and Output 12/24/17 12/25/17 19:00 07:00 Intake Total 2139.941 ml 1859.653 ml Output Total 1790 ml 800 ml Balance 349.941 ml 1059.653 ml Free Water 50 ml 85 ml IV Total 1474.941 ml 1169.653 ml Tube Feeding 615 ml 605 ml Output Urine Total 1790 ml 800 ml Height (Feet): 5 Height (Inches): 9.00 Weight (Pounds): 143 Objective On Vent CV RR Lungs B Ronchi Abd SNT. BS + No HSM. E No CCE Neuro Nonfocal. JAYSHREE RODRIGUEZ Dec 25, 2017 07:09
--- NOTE | 2017-12-25 08:29 | Critical Care Progress Note ---
Assessment/Plan Assessment/Plan IMPRESSION Respiratory failure choking episode hyperkalemia s/p CPA possible anoxia hypertension PLAN ventilator support and monitor acid base support care DVT prophylaxis IV hydration noted monitor clinically continue to assist nutrition and monitor hope to wean today follow up cultures guarded but improved impression, plan, and exam edited and reviewed in detail care discussed with RN medications/laboratory data/nursing notes/ICU care reviewed in detail note reviewed and edited care discussed with RN and RT ICU time spent 38 minutes Critical Care - Subjective Interval Events: care noted findings noted ICU care noted ROS Limited/Unobtainable: Yes Condition: critical EKG Rhythm: Sinus Rhythm I&O: Intake and Output 12/24/17 12/25/17 19:00 07:00 Intake Total 2139.941 ml 2122.614 ml Output Total 1790 ml 880 ml Balance 349.941 ml 1242.614 ml Free Water 50 ml 85 ml IV Total 1474.941 ml 1377.614 ml Tube Feeding 615 ml 660 ml Output Urine Total 1790 ml 880 ml Critical Care - Objective ET-Tube: 7.0 ET Position: 26 Last 24 Hour Vital Signs Date Time Temp Pulse Resp B/P (MAP) Pulse Ox O2 Delivery O2 Flow Rate FiO2 12/25/17 08:14 21 12/25/17 08:00 82 12/25/17 08:00 21 12/25/17 08:00 98.6 82 21 136/59 97 Mechanical Ventilator 12/25/17 07:16 92 22 21 12/25/17 07:00 93 21 133/58 96 Mechanical Ventilator 12/25/17 07:00 21 12/25/17 06:00 77 19 136/55 100 Mechanical Ventilator 12/25/17 06:00 18 12/25/17 05:37 76 20 21 12/25/17 05:30 80 18 134/55 100 Mechanical Ventilator 12/25/17 05:00 72 18 139/55 100 Mechanical Ventilator 12/25/17 05:00 18 12/25/17 04:00 73 12/25/17 04:00 20 12/25/17 04:00 21 12/25/17 04:00 99.0 73 17 134/55 100 Mechanical Ventilator 12/25/17 03:43 80 18 21 12/25/17 03:30 79 18 138/55 100 Mechanical Ventilator 21 12/25/17 03:00 18 12/25/17 03:00 86 19 166/71 100 Mechanical Ventilator 21 12/25/17 03:00 97 16 160/74 97 Mechanical Ventilator 21 12/25/17 02:30 98 20 167/65 95 Mechanical Ventilator 21 12/25/17 02:00 18 12/25/17 02:00 97 16 160/74 97 Mechanical Ventilator 21 12/25/17 01:30 94 18 125/60 97 Mechanical Ventilator 21 12/25/17 01:16 87 22 21 12/25/17 01:00 18 12/25/17 01:00 76 16 128/61 97 Mechanical Ventilator 21 12/25/17 00:30 77 16 130/61 97 Mechanical Ventilator 21 12/25/17 00:00 21 12/25/17 00:00 18 12/25/17 00:00 99.2 78 18 124/54 97 Mechanical Ventilator 21 12/25/17 00:00 78 12/24/17 23:30 80 18 126/56 96 Mechanical Ventilator 21 12/24/17 23:17 82 17 21 12/24/17 23:00 82 20 130/53 96 Mechanical Ventilator 21 12/24/17 23:00 18 12/24/17 22:30 85 20 143/66 97 Mechanical Ventilator 21 12/24/17 22:00 86 20 153/67 96 Mechanical Ventilator 21 12/24/17 22:00 17 12/24/17 21:30 86 18 147/67 97 Mechanical Ventilator 21 12/24/17 21:18 84 19 21 12/24/17 21:00 95 22 118/57 97 Mechanical Ventilator 21 12/24/17 21:00 17 12/24/17 20:30 95 22 118/57 97 Mechanical Ventilator 21 12/24/17 20:00 92 12/24/17 20:00 89 22 153/70 98 Mechanical Ventilator 21 12/24/17 20:00 21 12/24/17 20:00 18 12/24/17 19:28 22 12/24/17 19:20 88 21 21 12/24/17 19:00 89 22 153/70 98 Mechanical Ventilator 21 12/24/17 18:30 84 22 119/53 97 Mechanical Ventilator 21 12/24/17 18:00 99.7 86 22 139/63 97 Mechanical Ventilator 21 12/24/17 17:30 89 22 130/58 97 Mechanical Ventilator 21 12/24/17 17:00 100 23 154/78 96 Mechanical Ventilator 21 12/24/17 16:44 97 21 21 12/24/17 16:30 97 23 144/67 96 Mechanical Ventilator 21 12/24/17 16:01 23 18 16:00 21 12/24/17 16:00 95 12/24/17 16:00 100.0 95 24 141/68 97 Mechanical Ventilator 21 12/24/17 15:30 97 23 140/60 96 Mechanical Ventilator 21 12/24/17 15:00 104 23 163/70 96 Mechanical Ventilator 21 12/24/17 14:50 102 24 21 12/24/17 14:30 94 21 138/70 97 Mechanical Ventilator 21 12/24/17 14:00 93 18 147/67 97 Mechanical Ventilator 21 12/24/17 13:30 86 18 125/62 97 Mechanical Ventilator 21 12/24/17 13:00 82 18 117/63 97 Mechanical Ventilator 21 12/24/17 12:59 85 17 21 12/24/17 12:37 22 12/24/17 12:30 80 18 140/51 98 Mechanical Ventilator 21 12/24/17 12:00 98.7 81 18 129/54 98 Mechanical Ventilator 21 12/24/17 12:00 21 12/24/17 12:00 20 12/24/17 12:00 92 12/24/17 11:30 80 18 125/50 98 Mechanical Ventilator 21 12/24/17 11:00 75 16 123/52 97 Mechanical Ventilator 21 12/24/17 10:59 90 21 21 12/24/17 10:30 95 18 137/56 98 Mechanical Ventilator 21 12/24/17 10:00 97 18 143/91 95 Mechanical Ventilator 21 12/24/17 10:00 18 12/24/17 09:30 85 18 124/55 97 Mechanical Ventilator 21 12/24/17 09:25 100 21 21 12/24/17 09:00 82 18 130/58 98 Mechanical Ventilator 21 12/24/17 08:30 84 18 136/58 98 Mechanical Ventilator 21 Labs: Labs Test 12/22/17 13:11 12/22/17 14:10 12/22/17 15:00 12/22/17 17:14 White Blood Count 11.5 K/UL (4.8-10.8) Red Blood Count 5.23 M/UL (4.70-6.10) Hemoglobin 13.5 G/DL (14.2-18.0) Hematocrit 44.7 % (42.0-52.0) Mean Corpuscular Volume 86 FL (80-99) Mean Corpuscular Hemoglobin 25.9 PG (27.0-31.0) Mean Corpuscular Hemoglobin Concent 30.2 G/DL (32.0-36.0) Red Cell Distribution Width 12.5 % (11.6-14.8) Platelet Count 228 K/UL (150-450) Mean Platelet Volume 6.8 FL (6.5-10.1) Neutrophils (%) (Auto) 41.1 % (45.0-75.0) Lymphocytes (%) (Auto) 46.1 % (20.0-45.0) Monocytes (%) (Auto) 8.9 % (1.0-10.0) Eosinophils (%) (Auto) 3.1 % (0.0-3.0) Basophils (%) (Auto) 0.8 % (0.0-2.0) Prothrombin Time 10.2 SEC (9.30-11.50) Prothromb Time International Ratio 1.0 (0.9-1.1) Activated Partial Thromboplast Time 27 SEC (23-33) Sodium Level 137 MMOL/L (136-145) Potassium Level 8.3 MMOL/L (3.5-5.1) 3.3 MMOL/L (3.5-5.1) Chloride Level 106 MMOL/L (98-107) Carbon Dioxide Level 25 MMOL/L (21-32) Anion Gap 6 mmol/L (5-15) Blood Urea Nitrogen 16 mg/dL (7-18) Creatinine 1.1 MG/DL (0.55-1.30) Estimat Glomerular Filtration Rate mL/min (>60) Glucose Level 186 MG/DL (74-106) Lactic Acid Level 6.50 mmol/L (0.66-2.22) 1.20 mmol/L (0.66-2.22) Calcium Level 8.3 MG/DL (8.5-10.1) Total Bilirubin 0.5 MG/DL (0.2-1.0) Aspartate Amino Transf (AST/SGOT) 42 U/L (15-37) Alanine Aminotransferase (ALT/SGPT) 21 U/L (12-78) Alkaline Phosphatase 60 U/L (46-116) Total Creatine Kinase 123 U/L (26-308) Creatine Kinase MB 2.0 NG/ML (0.0-3.6) Creatine Kinase MB Relative Index 1.6 Troponin I 0.003 ng/mL (0.000-0.056) Pro-B-Type Natriuretic Peptide 134 pg/mL (0-125) Total Protein 7.1 G/DL (6.4-8.2) Albumin 3.1 G/DL (3.4-5.0) Globulin 4.0 g/dL Albumin/Globulin Ratio 0.8 (1.0-2.7) Triglycerides Level 71 MG/DL (30-150) Urine Color Pale yellow Urine Appearance Clear Urine pH 6 (4.5-8.0) Urine Specific Crane 1.020 (1.005-1.035) Urine Protein 3+ (NEGATIVE) Urine Glucose (UA) 3+ (NEGATIVE) Urine Ketones Negative (NEGATIVE) Urine Occult Blood 1+ (NEGATIVE) Urine Nitrite Negative (NEGATIVE) Urine Bilirubin Negative (NEGATIVE) Urine Urobilinogen Normal MG/DL (0.0-1.0) Urine Leukocyte Esterase 2+ (NEGATIVE) Urine RBC 0-2 /HPF (0 - 0) Urine WBC 10-15 /HPF (0 - 0) Urine Squamous Epithelial Cells Occasional /LPF Urine Bacteria Occasional /HPF (NONE) Arterial Blood pH 7.336 (7.350-7.450) Arterial Blood Partial Pressure CO2 44.6 mmHg (35.0-45.0) Arterial Blood Partial Pressure O2 86.8 mmHg (75.0-100.0) Arterial Blood HCO3 23.3 mmol/L (22.0-26.0) Arterial Blood Oxygen Saturation 95.7 % (92.0-98.0) Arterial Blood Base Excess -2.6 Rhett Test Positive Test 12/23/17 04:00 12/24/17 03:35 White Blood Count 10.5 K/UL (4.8-10.8) 7.5 K/UL (4.8-10.8) Red Blood Count 4.07 M/UL (4.70-6.10) 4.27 M/UL (4.70-6.10) Hemoglobin 10.7 G/DL (14.2-18.0) 11.1 G/DL (14.2-18.0) Hematocrit 33.8 % (42.0-52.0) 35.3 % (42.0-52.0) Mean Corpuscular Volume 83 FL (80-99) 83 FL (80-99) Mean Corpuscular Hemoglobin 26.3 PG (27.0-31.0) 26.1 PG (27.0-31.0) Mean Corpuscular Hemoglobin Concent 31.7 G/DL (32.0-36.0) 31.5 G/DL (32.0-36.0) Red Cell Distribution Width 11.9 % (11.6-14.8) 11.8 % (11.6-14.8) Platelet Count 169 K/UL (150-450) 184 K/UL (150-450) Mean Platelet Volume 6.8 FL (6.5-10.1) 6.5 FL (6.5-10.1) Neutrophils (%) (Auto) % (45.0-75.0) 72.0 % (45.0-75.0) Lymphocytes (%) (Auto) % (20.0-45.0) 16.1 % (20.0-45.0) Monocytes (%) (Auto) % (1.0-10.0) 9.8 % (1.0-10.0) Eosinophils (%) (Auto) % (0.0-3.0) 1.6 % (0.0-3.0) Basophils (%) (Auto) % (0.0-2.0) 0.5 % (0.0-2.0) Differential Total Cells Counted 100 Neutrophils % (Manual) 90 % (45-75) Lymphocytes % (Manual) 7 % (20-45) Monocytes % (Manual) 3 % (1-10) Eosinophils % (Manual) 0 % (0-3) Basophils % (Manual) 0 % (0-2) Band Neutrophils 0 % (0-8) Platelet Estimate Adequate Platelet Morphology Normal Arterial Blood pH 7.430 (7.350-7.450) Arterial Blood Partial Pressure CO2 34.2 mmHg (35.0-45.0) Arterial Blood Partial Pressure O2 154.4 mmHg (75.0-100.0) Arterial Blood HCO3 22.2 mmol/L (22.0-26.0) Arterial Blood Oxygen Saturation 98.6 % (92.0-98.0) Arterial Blood Base Excess -1.5 Rhett Test Positive Sodium Level 138 MMOL/L (136-145) 142 MMOL/L (136-145) Potassium Level 4.0 MMOL/L (3.5-5.1) 3.5 MMOL/L (3.5-5.1) Chloride Level 107 MMOL/L (98-107) 109 MMOL/L (98-107) Carbon Dioxide Level 24 MMOL/L (21-32) 27 MMOL/L (21-32) Anion Gap 7 mmol/L (5-15) 6 mmol/L (5-15) Blood Urea Nitrogen 13 mg/dL (7-18) 9 mg/dL (7-18) Creatinine 0.9 MG/DL (0.55-1.30) 0.8 MG/DL (0.55-1.30) Estimat Glomerular Filtration Rate mL/min (>60) mL/min (>60) Glucose Level 105 MG/DL (74-106) 90 MG/DL (74-106) Calcium Level 7.6 MG/DL (8.5-10.1) 8.2 MG/DL (8.5-10.1) Magnesium Level 1.6 MG/DL (1.8-2.4) Objective: Sp02 EP Interpretation: reviewed, normal General Appearance: unresponsive Head: normocephalic, atraumatic Eyes: bilateral eye normal inspection Neck: normal inspection, carotid 2+ Respiratory: decreased breath sounds, minimal rhonchi; ETT in place Cardiovascular #1: regular rate, rhythm, no murmur without MRG Gastrointestinal: non tender, soft, non-distended, no HSM Musculoskeletal: no CC Neurologic: reduced LOC reviewed and edited Micro: Microbiology Date/Time Source Procedure Growth Status 12/22/17 13:26 Blood Blood Culture - Final Staph Hominis Ssp Hominis Complete 12/22/17 13:11 Blood Blood Culture - Final Staph Hominis Ssp Hominis Complete 12/22/17 19:30 Sputum Induced Gram Stain - Final Complete 12/22/17 19:30 Sputum Induced Sputum Culture - Final NORMAL UPPER RESPIRATORY CECILIO AT 46 ... Complete 1/26/18 15:12 Nasal Nares MRSA Culture - Final NO METHICILLIN RESISTANT STAPH AUREUS... Complete 12/22/17 14:15 Nasal Nares Influenza Types A,B Antigen (GUNJAN) - Final Complete 12/22/17 14:10 Urine,Clean Catch Urine Culture - Final Citrobacter Koseri Complete 12/22/17 15:12 Rectum VRE Culture - Final NO VANCOMYCIN RESISTANT ENTEROCOCCUS ... Complete CHIKI VAZQUEZ Dec 25, 2017 08:29
[2017-12-25] MEDS: Cefepime HCl 1 GM in NS 55 ML IVPB SCH ×2 (09:06→20:55)
[2017-12-25] MEDS: Pantoprazole Inj IVP SCH (09:44)
[2017-12-25] MEDS: Heparin 5000 units/ml inj SUBQ SCH ×2 (09:46→20:56)
--- NOTE | 2017-12-25 11:39 | Diagnostic Imaging Report ---
APPROVED REPORT CPT Code: 74388 Present Symptoms Lower Extremity Pain: Bilateral BILATERAL: Imaging reveals a patent deep venous system bilaterally. There is no evidence of thrombus within the femoral, popliteal or tibial segments. The greater saphenous veins are also within normal limits. Doppler indicates normal spontaneous flow within these segments.
[2017-12-25] MEDS: Vancomycin 1gm/D5W 275ml IVPB SCH ×2 (16:20)
--- NOTE | 2017-12-25 17:36 | Infectious Diseases Prog Note ---
Assessment/Plan Assessment/Plan ASSESSMENT AND PLAN: 1. 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 Respiratory failure, on ventilator. 3. Dementia. 4. Benign prostatic hypertrophy. 5. Essential hypertension. 6. Osteoarthritis. 7. Paranoid schizophrenia. 8. Anemia. 9. Anxiety. 10. Hyperlipidemia. 11. No known allergies. 12. Social history negative. 13. Family history noncontributory. 14. MAR was noted. 15. Case was discussed with RN. 16. Continue treatment per primary consultants. 17. Intensive care unit care. 18. Skin care protocol. 19. Notes and records were noted. 20. Orders were entered. Subjective Constitutional: Reports: fever, fatigue, other - extubated HEENT: Reports: congestion - mild Respiratory: Reports: shortness of breath - mild Cardiovascular: Denies: chest pain Gastrointestinal/Abdominal: Denies: nausea, vomiting, diarrhea Genitourinary: Reports: other - + aguilera Neurologic: Denies: headache Psychiatric: Denies: depression Skin: Denies: rash Hematologic: Denies: bleeding Musculoskeletal: Denies: pain Allergies: Coded Allergies: No Known Allergies (Unverified , 12/22/17) Objective Vital Signs Last 24 Hour Vital Signs Date Time Temp Pulse Resp B/P (MAP) Pulse Ox O2 Delivery O2 Flow Rate FiO2 12/25/17 16:15 2.0 12/25/17 16:15 17 12/25/17 16:15 92 17 155/68 96 Nasal Cannula 2.0 12/25/17 16:00 94 12/25/17 16:00 98.9 94 18 159/68 96 Mechanical Ventilator 12/25/17 15:15 89 25 21 12/25/17 15:00 90 19 138/68 98 Mechanical Ventilator 12/25/17 14:00 22 12/25/17 14:00 83 24 145/77 97 Mechanical Ventilator 12/25/17 13:36 21 12/25/17 13:13 85 24 21 12/25/17 13:00 19 12/25/17 13:00 79 19 147/75 96 Mechanical Ventilator 12/25/17 12:00 23 12/25/17 12:00 98.4 85 23 147/81 98 Mechanical Ventilator 21 12/25/17 12:00 85 12/25/17 11:19 81 21 21 12/25/17 11:00 80 22 131/59 97 Mechanical Ventilator 21 12/25/17 11:00 22 12/25/17 10:30 82 23 138/62 98 Mechanical Ventilator 21 12/25/17 10:15 80 24 141/66 98 Mechanical Ventilator 21 12/25/17 10:00 86 25 150/62 96 Mechanical Ventilator 21 12/25/17 10:00 25 12/25/17 09:45 86 25 148/64 98 Mechanical Ventilator 21 12/25/17 09:33 21 12/25/17 09:33 99 12/25/17 09:30 83 17 150/61 99 Mechanical Ventilator 21 12/25/17 09:30 17 12/25/17 09:16 80 23 21 12/25/17 09:06 21 12/25/17 09:00 79 21 146/63 97 Mechanical Ventilator 21 12/25/17 08:45 84 21 133/59 96 Mechanical Ventilator 21 12/25/17 08:30 83 21 135/59 98 Mechanical Ventilator 21 12/25/17 08:15 81 21 134/59 96 Mechanical Ventilator 21 12/25/17 08:14 21 12/25/17 08:00 82 12/25/17 08:00 21 12/25/17 08:00 98.6 82 21 136/59 97 Mechanical Ventilator 21 12/25/17 07:45 80 21 131/56 98 Mechanical Ventilator 21 12/25/17 07:30 84 21 134/66 97 Mechanical Ventilator 21 12/25/17 07:16 92 22 21 12/25/17 07:15 88 21 130/60 97 Mechanical Ventilator 21 12/25/17 07:00 93 21 133/58 96 Mechanical Ventilator 21 12/25/17 07:00 21 12/25/17 06:00 77 19 136/55 100 Mechanical Ventilator 21 12/25/17 06:00 18 12/25/17 05:37 76 20 21 12/25/17 05:30 80 18 134/55 100 Mechanical Ventilator 21 12/25/17 05:00 72 18 139/55 100 Mechanical Ventilator 21 12/25/17 05:00 18 12/25/17 04:00 73 12/25/17 04:00 20 12/25/17 04:00 21 12/25/17 04:00 99.0 73 17 134/55 100 Mechanical Ventilator 21 12/25/17 03:43 80 18 21 12/25/17 03:30 79 18 138/55 100 Mechanical Ventilator 21 12/25/17 03:00 18 12/25/17 03:00 86 19 166/71 100 Mechanical Ventilator 21 12/25/17 03:00 97 16 160/74 97 Mechanical Ventilator 21 12/25/17 02:30 98 20 167/65 95 Mechanical Ventilator 21 12/25/17 02:00 18 12/25/17 02:00 97 16 160/74 97 Mechanical Ventilator 21 12/25/17 01:30 94 18 125/60 97 Mechanical Ventilator 21 12/25/17 01:16 87 22 21 12/25/17 01:00 18 12/25/17 01:00 76 16 128/61 97 Mechanical Ventilator 21 12/25/17 00:30 77 16 130/61 97 Mechanical Ventilator 21 12/25/17 00:00 21 12/25/17 00:00 18 12/25/17 00:00 99.2 78 18 124/54 97 Mechanical Ventilator 21 12/25/17 00:00 78 12/24/17 23:30 80 18 126/56 96 Mechanical Ventilator 21 12/24/17 23:17 82 17 21 12/24/17 23:00 82 20 130/53 96 Mechanical Ventilator 21 12/24/17 23:00 18 12/24/17 22:30 85 20 143/66 97 Mechanical Ventilator 21 12/24/17 22:00 86 20 153/67 96 Mechanical Ventilator 21 12/24/17 22:00 17 12/24/17 21:30 86 18 147/67 97 Mechanical Ventilator 21 12/24/17 21:18 84 19 21 12/24/17 21:00 95 22 118/57 97 Mechanical Ventilator 21 12/24/17 21:00 17 12/24/17 20:30 95 22 118/57 97 Mechanical Ventilator 21 12/24/17 20:00 92 12/24/17 20:00 89 22 153/70 98 Mechanical Ventilator 21 12/24/17 20:00 21 12/24/17 20:00 18 12/24/17 19:28 22 12/24/17 19:20 88 21 21 12/24/17 19:00 89 22 153/70 98 Mechanical Ventilator 21 12/24/17 18:30 84 22 119/53 97 Mechanical Ventilator 21 12/24/17 18:00 99.7 86 22 139/63 97 Mechanical Ventilator 21 12/24/17 17:30 89 22 130/58 97 Mechanical Ventilator 21 Height (Feet): 5 Height (Inches): 9.00 Weight (Pounds): 143 General Appearance: other - mild congestion HEENT: normocephalic, atraumatic, anicteric, mucous membranes moist Respiratory/Chest: crackles/rales, rhonchi - bilaterally Cardiovascular: normal rate, regular rhythm, no gallop/murmur, no JVD Abdomen: normal bowel sounds, soft, non tender, no organomegaly, non distended Genitourinary: other - + aguilera Extremities: no cyanosis Skin: no rash 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 ET tube tip above the mary. NG tube tip in the proximal stomach, side-port at the region of the gastroesophageal junction. Advancement recommended. There is interstitial opacification/edema, right greater than left. Patchy perihilar airspace opacities are again noted, slightly decreased. No pneumothorax. No acute osseous abnormality. Impression: Persistent interstitial and patchy perihilar airspace opacities, slightly decreased from the prior exam. Radiographic follow-up to resolution recommended. NG tube tip in the proximal stomach, side-port at the region of the gastroesophageal junction. Advancement is recommended. Microbiology Date/Time Source Procedure Growth Status 12/22/17 13:26 Blood Blood Culture - Final Staph Hominis Ssp Hominis Complete 12/22/17 19:30 Sputum Induced Gram Stain - Final Complete 12/22/17 19:30 Sputum Induced Sputum Culture - Final NORMAL UPPER RESPIRATORY CECILIO AT 48 ... Complete 12/22/17 14:10 Urine,Clean Catch Urine Culture - Final Citrobacter Koseri Complete 12/22/17 15:12 Rectum VRE Culture - Final NO VANCOMYCIN RESISTANT ENTEROCOCCUS ... Complete Microbiology Date/Time Source Procedure Growth Status 12/22/17 19:30 Sputum Induced Gram Stain - Final Complete 12/22/17 19:30 Sputum Induced Sputum Culture - Final NORMAL UPPER RESPIRATORY CECILIO AT 48 ... Complete Labs Test 12/23/17 04:00 12/24/17 03:35 12/25/17 15:04 White Blood Count 10.5 K/UL (4.8-10.8) 7.5 K/UL (4.8-10.8) Red Blood Count 4.07 M/UL (4.70-6.10) 4.27 M/UL (4.70-6.10) Hemoglobin 10.7 G/DL (14.2-18.0) 11.1 G/DL (14.2-18.0) Hematocrit 33.8 % (42.0-52.0) 35.3 % (42.0-52.0) Mean Corpuscular Volume 83 FL (80-99) 83 FL (80-99) Mean Corpuscular Hemoglobin 26.3 PG (27.0-31.0) 26.1 PG (27.0-31.0) Mean Corpuscular Hemoglobin Concent 31.7 G/DL (32.0-36.0) 31.5 G/DL (32.0-36.0) Red Cell Distribution Width 11.9 % (11.6-14.8) 11.8 % (11.6-14.8) Platelet Count 169 K/UL (150-450) 184 K/UL (150-450) Mean Platelet Volume 6.8 FL (6.5-10.1) 6.5 FL (6.5-10.1) Neutrophils (%) (Auto) % (45.0-75.0) 72.0 % (45.0-75.0) Lymphocytes (%) (Auto) % (20.0-45.0) 16.1 % (20.0-45.0) Monocytes (%) (Auto) % (1.0-10.0) 9.8 % (1.0-10.0) Eosinophils (%) (Auto) % (0.0-3.0) 1.6 % (0.0-3.0) Basophils (%) (Auto) % (0.0-2.0) 0.5 % (0.0-2.0) Differential Total Cells Counted 100 Neutrophils % (Manual) 90 % (45-75) Lymphocytes % (Manual) 7 % (20-45) Monocytes % (Manual) 3 % (1-10) Eosinophils % (Manual) 0 % (0-3) Basophils % (Manual) 0 % (0-2) Band Neutrophils 0 % (0-8) Platelet Estimate Adequate Platelet Morphology Normal Arterial Blood pH 7.430 (7.350-7.450) 7.480 (7.350-7.450) Arterial Blood Partial Pressure CO2 34.2 mmHg (35.0-45.0) 36.8 mmHg (35.0-45.0) Arterial Blood Partial Pressure O2 154.4 mmHg (75.0-100.0) 82.2 mmHg (75.0-100.0) Arterial Blood HCO3 22.2 mmol/L (22.0-26.0) 27.1 mmol/L (22.0-26.0) Arterial Blood Oxygen Saturation 98.6 % (92.0-98.0) 95.9 % (92.0-98.0) Arterial Blood Base Excess -1.5 3.7 Rhett Test Positive Positive Sodium Level 138 MMOL/L (136-145) 142 MMOL/L (136-145) Potassium Level 4.0 MMOL/L (3.5-5.1) 3.5 MMOL/L (3.5-5.1) Chloride Level 107 MMOL/L (98-107) 109 MMOL/L (98-107) Carbon Dioxide Level 24 MMOL/L (21-32) 27 MMOL/L (21-32) Anion Gap 7 mmol/L (5-15) 6 mmol/L (5-15) Blood Urea Nitrogen 13 mg/dL (7-18) 9 mg/dL (7-18) Creatinine 0.9 MG/DL (0.55-1.30) 0.8 MG/DL (0.55-1.30) Estimat Glomerular Filtration Rate mL/min (>60) mL/min (>60) Glucose Level 105 MG/DL (74-106) 90 MG/DL (74-106) Calcium Level 7.6 MG/DL (8.5-10.1) 8.2 MG/DL (8.5-10.1) Magnesium Level 1.6 MG/DL (1.8-2.4) Laboratory Tests Test 12/25/17 15:04 Arterial Blood pH 7.480 (7.350-7.450) Arterial Blood Partial Pressure CO2 36.8 mmHg (35.0-45.0) Arterial Blood Partial Pressure O2 82.2 mmHg (75.0-100.0) Arterial Blood HCO3 27.1 mmol/L (22.0-26.0) H Arterial Blood Oxygen Saturation 95.9 % (92.0-98.0) Arterial Blood Base Excess 3.7 Rhett Test Positive Current Medications Medications (Trade) Dose Ordered Sig/Mckenzie Route PRN Reason Start Time Stop Time Status Last Admin Dose Admin Cefepime HCl 1 gm/ Sodium Chloride 55 ml @ 110 mls/hr EVERY 12 HOURS IVPB 12/22/17 21:00 12/29/17 20:59 12/25/17 09:06 Chlorhexidine Gluconate (Liz-Hex 2%) 1 applic Q24H TOPIC 12/22/17 20:00 01/21/18 19:59 12/24/17 19:55 Heparin Sodium (Porcine) (Heparin 5000 units/ml) 5,000 units EVERY 12 HOURS SUBQ 12/22/17 21:00 01/21/18 20:59 12/25/17 09:46 Metronidazole 100 ml @ 100 mls/hr Q8HR IVPB 12/22/17 22:00 12/29/17 21:59 12/25/17 13:56 Pantoprazole (Protonix) 40 mg DAILY IVP 12/23/17 09:00 01/22/18 08:59 12/25/17 09:44 Sodium Chloride 1,000 ml @ 100 mls/hr Q10H IV 12/22/17 16:30 01/21/18 16:29 12/25/17 14:29 Vancomycin HCl (Vanco rx to dose) 1 ea DAILY PRN MISC Per rx protocol 12/23/17 15:30 01/22/18 15:29 Vancomycin HCl 1 gm/Dextrose 275 ml @ 183.708 mls/hr Q24H IVPB 12/24/17 16:00 12/29/17 15:59 12/25/17 16:20 MIKKI VIVAS Dec 25, 2017 17:36
[2017-12-25] MEDS: Dyna-Hex 2% Top Sol 2oz TOPIC SCH (20:27)
[2017-12-26] VITALS (24 sets, daily range): BP systolic 121–163; BP diastolic 57–111
[2017-12-26 04:45] LABS: BASOPHILS % (AUTO) 0.4 % (0.0-2.0); EOSINOPHILS % (AUTO) 1.4 % (0.0-3.0); HEMATOCRIT 34.4 % (42.0-52.0); HEMOGLOBIN 10.8 G/DL (14.2-18.0); LYMPHOCYTES % (AUTO) 12.1 % (20.0-45.0); MEAN CORPUSCULAR VOLUME 83 FL (80-99); MONOCYTES % (AUTO) 7.1 % (1.0-10.0); NEUTROPHILS % (AUTO) 79.1 % (45.0-75.0); PLATELET COUNT 165 K/UL (150-450); RED BLOOD COUNT 4.15 M/UL (4.70-6.10); WHITE BLOOD COUNT 7.7 K/UL (4.8-10.8)
[2017-12-26 05:11] LABS: ANION GAP 6 mmol/L (5-15); BLOOD UREA NITROGEN 13 mg/dL (7-18); CARBON DIOXIDE 27 MMOL/L (21-32); CHLORIDE 106 MMOL/L (98-107); CREATININE 0.8 MG/DL (0.55-1.30); PHOSPHORUS 2.6 MG/DL (2.5-4.9); SODIUM 139 MMOL/L (136-145)
[2017-12-26] MEDS: Cefepime HCl 1 GM in NS 55 ML IVPB SCH ×2 (08:33→20:43)
[2017-12-26] MEDS: Pantoprazole Inj IVP SCH (08:33)
--- NOTE | 2017-12-26 08:33 | Critical Care Progress Note ---
Assessment/Plan Assessment/Plan IMPRESSION Respiratory failure choking episode hyperkalemia s/p CPA possible anoxia hypertension patchy infiltrates PLAN ventilator support off support care DVT prophylaxis monitor imaging monitor clinically continue to assist nutrition and monitor monitor off vent follow up cultures guarded but improved impression, plan, and exam edited and reviewed in detail care discussed with RN medications/laboratory data/nursing notes/ICU care reviewed in detail note reviewed and edited care discussed with RN and RT ICU time spent 38 minutes Critical Care - Subjective Interval Events: care noted off oxygen confused ROS Limited/Unobtainable: Yes Condition: critical EKG Rhythm: Sinus Rhythm I&O: Intake and Output 12/25/17 12/26/17 19:00 07:00 Intake Total 2881.324 ml 1920 ml Output Total 890 ml 1660 ml Balance 1991.324 ml 260 ml Free Water 540 ml 60 ml IV Total 1681.324 ml 1200 ml Tube Feeding 660 ml 660 ml Output Urine Total 890 ml 1660 ml Stool Total 0 ml Critical Care - Objective ET-Tube: 7.0 ET Position: 26 Last 24 Hour Vital Signs Date Time Temp Pulse Resp B/P (MAP) Pulse Ox O2 Delivery O2 Flow Rate FiO2 12/26/17 07:46 Nasal Cannula 2.0 28 12/26/17 07:46 95 Nasal Cannula 2.0 12/26/17 06:00 79 20 138/57 94 Nasal Cannula 2.0 12/26/17 05:00 80 20 130/86 94 Nasal Cannula 2.0 12/26/17 04:00 71 12/26/17 04:00 99.0 80 20 155/80 94 Nasal Cannula 2.0 12/26/17 03:00 83 20 143/81 94 Nasal Cannula 2.0 12/26/17 02:00 83 20 143/81 94 Nasal Cannula 2.0 12/26/17 01:00 85 20 133/63 94 Nasal Cannula 2.0 12/26/17 00:00 99.4 91 20 140/81 94 Nasal Cannula 2.0 12/25/17 23:00 91 20 149/81 93 Nasal Cannula 2.0 12/25/17 22:00 74 20 120/74 95 Nasal Cannula 2.0 12/25/17 21:00 75 20 130/76 95 Nasal Cannula 2.0 12/25/17 20:00 80 12/25/17 20:00 99.0 83 21 133/71 95 Nasal Cannula 2.0 12/25/17 19:00 87 20 160/68 97 Nasal Cannula 2.0 12/25/17 18:00 91 18 160/68 98 Nasal Cannula 2.0 12/25/17 17:00 85 18 139/55 96 Nasal Cannula 2.0 12/25/17 16:17 Nasal Cannula 2.0 12/25/17 16:15 Nasal Cannula 2.0 12/25/17 16:15 2.0 12/25/17 16:15 17 12/25/17 16:15 97 Nasal Cannula 2.0 12/25/17 16:15 92 17 155/68 96 Nasal Cannula 2.0 12/25/17 16:00 94 12/25/17 16:00 98.9 94 18 159/68 96 Mechanical Ventilator 21 12/25/17 15:15 89 25 21 12/25/17 15:00 90 19 138/68 98 Mechanical Ventilator 21 12/25/17 14:00 22 12/25/17 14:00 83 24 145/77 97 Mechanical Ventilator 21 12/25/17 13:36 21 12/25/17 13:13 85 24 21 12/25/17 13:00 19 12/25/17 13:00 79 19 147/75 96 Mechanical Ventilator 21 12/25/17 12:00 23 12/25/17 12:00 98.4 85 23 147/81 98 Mechanical Ventilator 21 12/25/17 12:00 85 12/25/17 11:19 81 21 21 12/25/17 11:00 80 22 131/59 97 Mechanical Ventilator 21 12/25/17 11:00 22 12/25/17 10:30 82 23 138/62 98 Mechanical Ventilator 21 12/25/17 10:15 80 24 141/66 98 Mechanical Ventilator 21 12/25/17 10:00 86 25 150/62 96 Mechanical Ventilator 21 12/25/17 10:00 25 12/25/17 09:45 86 25 148/64 98 Mechanical Ventilator 21 12/25/17 09:33 21 12/25/17 09:33 99 12/25/17 09:30 83 17 150/61 99 Mechanical Ventilator 21 12/25/17 09:30 17 12/25/17 09:16 80 23 21 12/25/17 09:06 21 12/25/17 09:00 79 21 146/63 97 Mechanical Ventilator 21 12/25/17 08:45 84 21 133/59 96 Mechanical Ventilator 21 Labs: Labs Test 12/24/17 03:35 12/25/17 15:04 12/26/17 03:20 White Blood Count 7.5 K/UL (4.8-10.8) 7.7 K/UL (4.8-10.8) Red Blood Count 4.27 M/UL (4.70-6.10) 4.15 M/UL (4.70-6.10) Hemoglobin 11.1 G/DL (14.2-18.0) 10.8 G/DL (14.2-18.0) Hematocrit 35.3 % (42.0-52.0) 34.4 % (42.0-52.0) Mean Corpuscular Volume 83 FL (80-99) 83 FL (80-99) Mean Corpuscular Hemoglobin 26.1 PG (27.0-31.0) 26.1 PG (27.0-31.0) Mean Corpuscular Hemoglobin Concent 31.5 G/DL (32.0-36.0) 31.5 G/DL (32.0-36.0) Red Cell Distribution Width 11.8 % (11.6-14.8) 12.0 % (11.6-14.8) Platelet Count 184 K/UL (150-450) 165 K/UL (150-450) Mean Platelet Volume 6.5 FL (6.5-10.1) 6.3 FL (6.5-10.1) Neutrophils (%) (Auto) 72.0 % (45.0-75.0) 79.1 % (45.0-75.0) Lymphocytes (%) (Auto) 16.1 % (20.0-45.0) 12.1 % (20.0-45.0) Monocytes (%) (Auto) 9.8 % (1.0-10.0) 7.1 % (1.0-10.0) Eosinophils (%) (Auto) 1.6 % (0.0-3.0) 1.4 % (0.0-3.0) Basophils (%) (Auto) 0.5 % (0.0-2.0) 0.4 % (0.0-2.0) Sodium Level 142 MMOL/L (136-145) 139 MMOL/L (136-145) Potassium Level 3.5 MMOL/L (3.5-5.1) 4.0 MMOL/L (3.5-5.1) Chloride Level 109 MMOL/L (98-107) 106 MMOL/L (98-107) Carbon Dioxide Level 27 MMOL/L (21-32) 27 MMOL/L (21-32) Anion Gap 6 mmol/L (5-15) 6 mmol/L (5-15) Blood Urea Nitrogen 9 mg/dL (7-18) 13 mg/dL (7-18) Creatinine 0.8 MG/DL (0.55-1.30) 0.8 MG/DL (0.55-1.30) Estimat Glomerular Filtration Rate mL/min (>60) mL/min (>60) Glucose Level 90 MG/DL (74-106) 108 MG/DL (74-106) Calcium Level 8.2 MG/DL (8.5-10.1) 8.0 MG/DL (8.5-10.1) Magnesium Level 1.6 MG/DL (1.8-2.4) 1.6 MG/DL (1.8-2.4) Arterial Blood pH 7.480 (7.350-7.450) Arterial Blood Partial Pressure CO2 36.8 mmHg (35.0-45.0) Arterial Blood Partial Pressure O2 82.2 mmHg (75.0-100.0) Arterial Blood HCO3 27.1 mmol/L (22.0-26.0) Arterial Blood Oxygen Saturation 95.9 % (92.0-98.0) Arterial Blood Base Excess 3.7 Rhett Test Positive Phosphorus Level 2.6 MG/DL (2.5-4.9) Objective: Sp02 EP Interpretation: reviewed, normal General Appearance: confused Head: normocephalic, atraumatic Eyes: bilateral eye normal inspection Neck: normal inspection, carotid 2+ Respiratory: decreased breath sounds, minimal rhonchi; extubated Cardiovascular #1: regular rate, rhythm, no murmur without MRG Gastrointestinal: non tender, soft, non-distended, no HSM Musculoskeletal: no CC Neurologic: reduced LOC reviewed and edited CHIKI VAZQUEZ Dec 26, 2017 08:33
[2017-12-26] MEDS: Heparin 5000 units/ml inj SUBQ SCH ×2 (08:37→20:44)
--- NOTE | 2017-12-26 09:52 | Diagnostic Imaging Report ---
Indication: Dyspnea Technique: One view of the chest Comparison: 12/23/2017 Findings: Right upper lung airspace opacity has improved. Interstitial and airspace opacities are again demonstrated in the left perihilar region, perhaps somewhat increased. The left lateral hemidiaphragm is somewhat obscured, small pleural effusion or basilar atelectasis possible. Nasogastric tube remains. Previously demonstrated endotracheal tube is no longer visualized Impression: Improving right upper lobe infiltrate Persistent and possibly increased left perihilar and left basilar parenchymal opacities and possible small left pleural effusion Interim endotracheal tube removal
--- NOTE | 2017-12-26 11:34 | General Progress Note ---
Assessment/Plan Assessment/Plan Resp. Failure secondary to massive aspiration - extubated Aspiration Pneumonia - IV Abx Gram Positive sepsis secondary to above. R/O MRSA or VRE sepsis Check Labs To Med Surg Subjective Allergies: Coded Allergies: No Known Allergies (Unverified , 12/22/17) Subjective More alert, extubated . Objective Last 24 Hour Vital Signs Date Time Temp Pulse Resp B/P (MAP) Pulse Ox O2 Delivery O2 Flow Rate FiO2 12/26/17 11:00 85 18 147/82 97 Nasal Cannula 2.0 12/26/17 10:00 81 19 128/62 98 Nasal Cannula 2.0 12/26/17 09:00 83 20 136/70 97 Nasal Cannula 2.0 12/26/17 08:00 98.8 80 20 143/78 96 Nasal Cannula 2.0 12/26/17 07:47 80 12/26/17 07:46 Nasal Cannula 2.0 28 12/26/17 07:46 95 Nasal Cannula 2.0 12/26/17 07:00 81 20 158/57 96 Nasal Cannula 2.0 12/26/17 06:00 79 20 138/57 94 Nasal Cannula 2.0 12/26/17 05:00 80 20 130/86 94 Nasal Cannula 2.0 12/26/17 04:00 71 12/26/17 04:00 99.0 80 20 155/80 94 Nasal Cannula 2.0 12/26/17 03:00 83 20 143/81 94 Nasal Cannula 2.0 12/26/17 02:00 83 20 143/81 94 Nasal Cannula 2.0 12/26/17 01:00 85 20 133/63 94 Nasal Cannula 2.0 12/26/17 00:00 99.4 91 20 140/81 94 Nasal Cannula 2.0 12/25/17 23:00 91 20 149/81 93 Nasal Cannula 2.0 12/25/17 22:00 74 20 120/74 95 Nasal Cannula 2.0 12/25/17 21:00 75 20 130/76 95 Nasal Cannula 2.0 12/25/17 20:00 80 12/25/17 20:00 99.0 83 21 133/71 95 Nasal Cannula 2.0 12/25/17 19:00 87 20 160/68 97 Nasal Cannula 2.0 12/25/17 18:00 91 18 160/68 98 Nasal Cannula 2.0 12/25/17 17:00 85 18 139/55 96 Nasal Cannula 2.0 12/25/17 16:17 Nasal Cannula 2.0 12/25/17 16:15 Nasal Cannula 2.0 12/25/17 16:15 2.0 12/25/17 16:15 17 12/25/17 16:15 97 Nasal Cannula 2.0 12/25/17 16:15 92 17 155/68 96 Nasal Cannula 2.0 12/25/17 16:00 94 12/25/17 16:00 98.9 94 18 159/68 96 Mechanical Ventilator 21 12/25/17 15:15 89 25 21 12/25/17 15:00 90 19 138/68 98 Mechanical Ventilator 21 12/25/17 14:00 22 12/25/17 14:00 83 24 145/77 97 Mechanical Ventilator 21 12/25/17 13:36 21 12/25/17 13:13 85 24 21 12/25/17 13:00 19 12/25/17 13:00 79 19 147/75 96 Mechanical Ventilator 21 12/25/17 12:00 23 12/25/17 12:00 98.4 85 23 147/81 98 Mechanical Ventilator 21 12/25/17 12:00 85 Intake and Output 12/25/17 12/26/17 19:00 07:00 Intake Total 2881.324 ml 1920 ml Output Total 890 ml 1660 ml Balance 1991.324 ml 260 ml Free Water 540 ml 60 ml IV Total 1681.324 ml 1200 ml Tube Feeding 660 ml 660 ml Output Urine Total 890 ml 1660 ml Stool Total 0 ml Laboratory Tests 12/25/17 15:04: Arterial Blood pH 7.480H, Arterial Blood Partial Pressure CO2 36.8, Arterial Blood Partial Pressure O2 82.2, Arterial Blood HCO3 27.1H, Arterial Blood Oxygen Saturation 95.9, Arterial Blood Base Excess 3.7, Rhett Test Positive 12/26/17 03:20: White Blood Count 7.7, Red Blood Count 4.15L, Hemoglobin 10.8L, Hematocrit 34.4L , Mean Corpuscular Volume 83, Mean Corpuscular Hemoglobin 26.1L, Mean Corpuscular Hemoglobin Concent 31.5L, Red Cell Distribution Width 12.0, Platelet Count 165, Mean Platelet Volume 6.3L, Neutrophils (%) (Auto) 79.1H, Lymphocytes (%) (Auto) 12.1L, Monocytes (%) (Auto) 7.1, Eosinophils (%) (Auto) 1.4, Basophils (%) (Auto) 0.4, Sodium Level 139, Potassium Level 4.0, Chloride Level 106, Carbon Dioxide Level 27, Anion Gap 6, Blood Urea Nitrogen 13, Creatinine 0.8, Estimat Glomerular Filtration Rate , Glucose Level 108H, Calcium Level 8.0L, Phosphorus Level 2.6, Magnesium Level 1.6L Height (Feet): 5 Height (Inches): 9.00 Weight (Pounds): 141 Objective Extubated CV RR Lungs B Ronchi Abd SNT. BS + No HSM. E No CCE Neuro Nonfocal. JAYSHREE RODRIGUEZ Dec 26, 2017 11:34
[2017-12-26] MEDS ORDERED: 1/2 NS 1000ml IV ONE (14:57)
[2017-12-26] MEDS: Vancomycin 1gm/D5W 275ml IVPB SCH ×2 (16:33)
[2017-12-26] MEDS ORDERED: Haloperidol 5mg/ml Inj IM PRN (17:00)
[2017-12-27] VITALS (10 sets, daily range): BP systolic 138–155; BP diastolic 65–91
[2017-12-27] MEDS ORDERED: Haloperidol 5mg/ml Inj IM PRN (09:00)
--- NOTE | 2017-12-27 09:17 | Critical Care Progress Note ---
Assessment/Plan Assessment/Plan IMPRESSION Respiratory failure choking episode hyperkalemia s/p CPA possible anoxia hypertension patchy infiltrates PLAN ventilator support off and monitor haldol PRN consider psych follow up support care DVT prophylaxis monitor imaging monitor clinically continue to assist nutrition and monitor as is for now follow up cultures guarded but improved impression, plan, and exam edited and reviewed in detail care discussed with RN medications/laboratory data/nursing notes/ICU care reviewed in detail note reviewed and edited care discussed with RN and RT ICU time spent 38 minutes Critical Care - Subjective Interval Events: care noted in detail no distress on oxygen confused and agitated ROS Limited/Unobtainable: Yes EKG Rhythm: Sinus Rhythm I&O: Intake and Output 12/26/17 12/27/17 19:00 07:00 Intake Total 1475.000 ml 815 ml Output Total 1250 ml 950 ml Balance 225.000 ml -135 ml Free Water 60 ml IV Total 755.000 ml 155 ml Tube Feeding 660 ml 660 ml Output Urine Total 1250 ml 950 ml # Bowel Movements 4 6 Critical Care - Objective CXR: improved RUL ET-Tube: 7.0 ET Position: 26 Last 24 Hour Vital Signs Date Time Temp Pulse Resp B/P (MAP) Pulse Ox O2 Delivery O2 Flow Rate FiO2 12/27/17 08:00 97.9 87 19 140/67 95 12/27/17 05:00 88 16 155/81 97 Nasal Cannula 2.0 12/27/17 04:00 81 12/27/17 04:00 99.0 81 20 150/71 97 Nasal Cannula 2.0 12/27/17 03:00 82 21 150/91 98 Nasal Cannula 2.0 12/27/17 02:00 84 20 138/66 97 Nasal Cannula 2.0 12/27/17 01:00 87 23 138/67 98 Nasal Cannula 2.0 12/27/17 00:00 98.5 87 19 139/65 98 Nasal Cannula 2.0 12/27/17 00:00 87 12/26/17 23:00 80 19 121/76 98 Nasal Cannula 2.0 12/26/17 22:00 79 20 141/72 100 Nasal Cannula 2.0 12/26/17 21:00 78 17 148/65 100 Nasal Cannula 2.0 12/26/17 20:00 79 18 163/111 98 Nasal Cannula 2.0 12/26/17 20:00 79 12/26/17 19:30 98 Nasal Cannula 2.0 28 12/26/17 19:30 Nasal Cannula 2.0 28 12/26/17 19:00 98.6 79 20 143/70 98 Nasal Cannula 2.0 12/26/17 18:00 81 20 139/61 99 Nasal Cannula 2.0 12/26/17 17:00 88 20 141/67 97 Nasal Cannula 2.0 12/26/17 16:00 98.8 85 20 142/61 97 Nasal Cannula 2.0 12/26/17 15:47 89 12/26/17 15:00 79 20 137/63 98 Nasal Cannula 2.0 12/26/17 14:00 78 21 132/59 95 Nasal Cannula 2.0 12/26/17 13:00 80 21 135/61 93 Nasal Cannula 2.0 12/26/17 12:00 99.2 83 21 156/63 97 Nasal Cannula 2.0 12/26/17 11:50 89 12/26/17 11:00 85 18 147/82 97 Nasal Cannula 2.0 12/26/17 10:00 81 19 128/62 98 Nasal Cannula 2.0 Objective: Sp02 EP Interpretation: reviewed, normal General Appearance: confused Head: normocephalic, atraumatic Eyes: bilateral eye normal inspection Neck: normal inspection, carotid 2+ Respiratory: decreased breath sounds, minimal rhonchi; stable Cardiovascular #1: regular rate, rhythm, no murmur without MRG Gastrointestinal: non tender, soft, non-distended, no HSM Musculoskeletal: no CC Neurologic: agitated and confused reviewed and edited Micro: Microbiology Date/Time Source Procedure Growth Status 12/25/17 18:30 Blood Blood Culture - Preliminary NO GROWTH AFTER 24 HOURS Resulted 12/25/17 17:45 Blood Blood Culture - Preliminary NO GROWTH AFTER 24 HOURS Resulted CHIKI VAZQUEZ Dec 27, 2017 09:16
[2017-12-27] MEDS: Cefepime HCl 1 GM in NS 55 ML IVPB SCH ×2 (09:38→21:11)
[2017-12-27] MEDS: Pantoprazole Inj IVP SCH (09:40)
[2017-12-27] MEDS: Heparin 5000 units/ml inj SUBQ SCH ×2 (09:43→20:58)
--- NOTE | 2017-12-27 10:39 | General Progress Note ---
Assessment/Plan Assessment/Plan Resp. Failure secondary to massive aspiration - extubated Aspiration Pneumonia - IV Abx Gram Positive sepsis secondary to above. R/O MRSA or VRE sepsis Check Labs Failed bedside swallow. Needs PEG. Subjective Allergies: Coded Allergies: No Known Allergies (Unverified , 12/22/17) Subjective More alert, extubated . NGT in. On Med Surg. Objective Last 24 Hour Vital Signs Date Time Temp Pulse Resp B/P (MAP) Pulse Ox O2 Delivery O2 Flow Rate FiO2 12/27/17 08:00 97.9 87 19 140/67 95 12/27/17 05:00 88 16 155/81 97 Nasal Cannula 2.0 12/27/17 04:00 81 12/27/17 04:00 99.0 81 20 150/71 97 Nasal Cannula 2.0 12/27/17 03:00 82 21 150/91 98 Nasal Cannula 2.0 12/27/17 02:00 84 20 138/66 97 Nasal Cannula 2.0 12/27/17 01:00 87 23 138/67 98 Nasal Cannula 2.0 12/27/17 00:00 98.5 87 19 139/65 98 Nasal Cannula 2.0 12/27/17 00:00 87 12/26/17 23:00 80 19 121/76 98 Nasal Cannula 2.0 12/26/17 22:00 79 20 141/72 100 Nasal Cannula 2.0 12/26/17 21:00 78 17 148/65 100 Nasal Cannula 2.0 12/26/17 20:00 79 18 163/111 98 Nasal Cannula 2.0 12/26/17 20:00 79 12/26/17 19:30 98 Nasal Cannula 2.0 28 12/26/17 19:30 Nasal Cannula 2.0 28 12/26/17 19:00 98.6 79 20 143/70 98 Nasal Cannula 2.0 12/26/17 18:00 81 20 139/61 99 Nasal Cannula 2.0 12/26/17 17:00 88 20 141/67 97 Nasal Cannula 2.0 12/26/17 16:00 98.8 85 20 142/61 97 Nasal Cannula 2.0 12/26/17 15:47 89 12/26/17 15:00 79 20 137/63 98 Nasal Cannula 2.0 12/26/17 14:00 78 21 132/59 95 Nasal Cannula 2.0 12/26/17 13:00 80 21 135/61 93 Nasal Cannula 2.0 12/26/17 12:00 99.2 83 21 156/63 97 Nasal Cannula 2.0 12/26/17 11:50 89 12/26/17 11:00 85 18 147/82 97 Nasal Cannula 2.0 Intake and Output 12/26/17 12/27/17 19:00 07:00 Intake Total 1475.000 ml 815 ml Output Total 1250 ml 950 ml Balance 225.000 ml -135 ml Free Water 60 ml IV Total 755.000 ml 155 ml Tube Feeding 660 ml 660 ml Output Urine Total 1250 ml 950 ml # Bowel Movements 4 6 Height (Feet): 5 Height (Inches): 9.00 Weight (Pounds): 147 Objective Extubated. Not cooperative bedside swallow. CV RR Lungs B Ronchi Abd SNT. BS + No HSM. E No CCE Neuro Nonfocal. JAYSHREE RODRIGUEZ Dec 27, 2017 10:39
--- NOTE | 2017-12-27 12:28 | GI Initial Consult Note ---
MaryTracey Ignacio N.PGumaro 12/27/17 1228: History of Present Illness General Date patient seen: Dec 27, 2017 Time patient seen: 12:24 Reason for Hospitalization: Dyspnea/Respdistress Referring physician: JAYSHREE JANG Reason for Consultation: PEG Present Illness HPI This is an 82-year-old male, who is one of my patients from [facility]. The patient apparently choked on food, developed respiratory failure, and transported by paramedics to this hospital. The patient was already seen by Pulmonary Dr. Andrade. He had a full CPR in the ED. At this point, the microbiology show gram positive cocci blood cultures. The patient is intubated and he is on a ventilator. GI consulted for PEG evaluation. HPI noted above. ROS limited, seen on floor awake NAD with no active s/sx of N/V/D. ST evaluation reviewed with initial impression of SEVERE OROPHARYNGEAL DYSPHAGIA WHICH INCLUDES DECREASED MENTATION, SEVERE SENSORI/MOTOR DEFICITS WHICH PREVENTS PATIENT FROM INDEPENDENTLY CLEARING UPPER AIRWAY SECRETIONS. PEG recommended. Patient presents today with anemia and hypomagnesemia. Unknown history of endoscopies / colonoscopies. Home Meds Reported Medications Olanzapine* (ZYPREXA*) 2.5 Mg Tablet, 2.5 MG ORAL DAILY, #30 TAB 0 Refills 12/22/17 Acetaminophen* (TYLENOL EXTRA STRENGTH*) 500 Mg Tablet, 500 MG ORAL Q4HR Y for Mild Pain/Temp > 100.5, TAB 0 Refills 12/22/17 Multivitamin with Minerals (Multivitamins with Minerals) 1 Each Tablet, 1 TAB ORAL DAILY, TAB 12/22/17 Magnesium Hydroxide* (MILK OF MAGNESIA*) 400 Mg/5 Ml Oral.susp, 30 ML ORAL DAILY , ML 12/22/17 Metoprolol Tartrate* (METOPROLOL TARTRATE*) 25 Mg Tablet, 25 MG ORAL EVERY 12 HOURS, TAB 12/22/17 Lisinopril (LISINOPRIL*) 5 Mg Tablet, 5 MG ORAL DAILY, TAB 12/22/17 Clonazepam* (KLONOPIN*) 0.5 Mg Tablet, 0.5 MG ORAL BID, #15 TAB 0 Refills 12/22/17 Tamsulosin Hcl (TAMSULOSIN HCL*) 0.4 Mg Cap.er.24h, 0.4 MG ORAL BEDTIME, CAP 12/22/17 Aspirin* (ASPIR 81*) 81 Mg Tablet.dr, 81 MG ORAL DAILY, TAB 12/22/17 Med list reviewed/reconciled: Yes Allergies: Coded Allergies: No Known Allergies (Unverified , 12/22/17) Patient History Limited by: medical condition History Provided By: Medical Record [facility] Narrative 1. Organic brain syndrome. 2. Hypertensive cardiovascular disease. 3. Paranoid schizophrenia. 4. Hyperlipidemia. 5. Benign prostatic hypertrophy. Review of Systems All Other Systems: limited Physical Exam Vital Signs Date Time Temp Pulse Resp B/P (MAP) Pulse Ox O2 Delivery O2 Flow Rate FiO2 12/23/17 07:00 54 19 119/55 100 Mechanical Ventilator 40 12/23/17 09:30 99.1 12/25/17 16:15 2.0 Sp02 EP Interpretation: normal General Appearance: well appearing, no apparent distress, alert Head: normocephalic EENT: normal ENT inspection Neck: supple Respiratory: normal breath sounds, no respiratory distress Cardiovascular: normal rate Gastrointestinal: soft Skin: normal inspection, normal color, no rash, warm/dry Lymphatic: normal inspection, no adenopathy Current Medications Current Medications Medications (Trade) Dose Ordered Sig/Mckenzie Route PRN Reason Start Time Stop Time Status Last Admin Dose Admin Cefepime HCl 1 gm/ Sodium Chloride 55 ml @ 110 mls/hr EVERY 12 HOURS IVPB 12/27/17 09:00 12/29/17 20:59 12/27/17 09:38 Haloperidol Lactate (Haldol) 2.5 mg Q4H PRN IM Agitation 12/27/17 09:00 01/25/18 16:59 Heparin Sodium (Porcine) (Heparin 5000 units/ml) 5,000 units EVERY 12 HOURS SUBQ 12/27/17 09:00 01/21/18 20:59 12/27/17 09:43 Metronidazole 100 ml @ 100 mls/hr Q8HR IVPB 12/27/17 14:00 12/29/17 21:59 Pantoprazole (Protonix) 40 mg DAILY IVP 12/27/17 09:00 01/22/18 08:59 12/27/17 09:40 Vancomycin HCl (Vanco rx to dose) 1 ea DAILY PRN MISC Per rx protocol 12/27/17 09:00 01/22/18 15:29 Vancomycin HCl 1 gm/Dextrose 275 ml @ 183.708 mls/hr Q24H IVPB 12/27/17 16:00 12/29/17 15:59 GI: Plan Problems: (1) Dysphagia (2) Encounter for PEG (percutaneous endoscopic gastrostomy) (3) Anemia Plan NGT removed by patient, on restraints. PEG scheduled for tomorrow. - NPO + IVFs - hold all blood thinners tonight anemia work up OB stool r/o GI bleed monitor H&H, prn transfusions bowel regime ppi fu labs Discussed with Dr. Barajas. Thank you for this patient referral, we will follow. TIFFANIE BARAJAS 12/28/17 1516: History of Present Illness General Reason for Hospitalization: Dyspnea/Respdistress Present Illness Home Meds Reported Medications Olanzapine* (ZYPREXA*) 2.5 Mg Tablet, 2.5 MG ORAL DAILY, #30 TAB 0 Refills 12/22/17 Acetaminophen* (TYLENOL EXTRA STRENGTH*) 500 Mg Tablet, 500 MG ORAL Q4HR Y for Mild Pain/Temp > 100.5, TAB 0 Refills 12/22/17 Multivitamin with Minerals (Multivitamins with Minerals) 1 Each Tablet, 1 TAB ORAL DAILY, TAB 12/22/17 Magnesium Hydroxide* (MILK OF MAGNESIA*) 400 Mg/5 Ml Oral.susp, 30 ML ORAL DAILY , ML 12/22/17 Metoprolol Tartrate* (METOPROLOL TARTRATE*) 25 Mg Tablet, 25 MG ORAL EVERY 12 HOURS, TAB 12/22/17 Lisinopril (LISINOPRIL*) 5 Mg Tablet, 5 MG ORAL DAILY, TAB 12/22/17 Clonazepam* (KLONOPIN*) 0.5 Mg Tablet, 0.5 MG ORAL BID, #15 TAB 0 Refills 12/22/17 Tamsulosin Hcl (TAMSULOSIN HCL*) 0.4 Mg Cap.er.24h, 0.4 MG ORAL BEDTIME, CAP 12/22/17 Aspirin* (ASPIR 81*) 81 Mg Tablet.dr, 81 MG ORAL DAILY, TAB 12/22/17 Allergies: Coded Allergies: No Known Allergies (Unverified , 12/22/17) GI: Plan Plan The patient was seen and examined at bedside and all new and available data was reviewed in the patients chart. I agree with the above findings, impression and plan. (Patient seen earlier today. Signature stamp does not reflect patient encounter time.). - [facility] Ignacio Moore Dec 27, 2017 12:28 TIFFANIE BARAJAS Dec 28, 2017 15:16
--- NOTE | 2017-12-27 14:45 | Infectious Diseases Prog Note ---
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 Respiratory failure, on ventilator. 3. Dementia. 4. Benign prostatic hypertrophy. 5. Essential hypertension. 6. Osteoarthritis. 7. Paranoid schizophrenia. 8. Anemia. 9. Anxiety. 10. Hyperlipidemia. 11. No known allergies. 12. Social history negative. 13. Family history noncontributory. 14. MAR was noted. 15. Case was discussed with RN. 16. Continue treatment per primary consultants. 17. Intensive care unit care. 18. Skin care protocol. 19. Notes and records were noted. 20. Orders were entered. Subjective Constitutional: Reports: fatigue, other - more alert, Denies: fever HEENT: Denies: congestion Respiratory: Denies: shortness of breath Cardiovascular: Denies: chest pain Gastrointestinal/Abdominal: Denies: nausea, vomiting, diarrhea Genitourinary: Reports: other - + aguilera Neurologic: Reports: weakness, other - more alert Psychiatric: Denies: depression Skin: Reports: no symptoms, Denies: rash Hematologic: Denies: bleeding Musculoskeletal: Denies: pain Allergies: Coded Allergies: No Known Allergies (Unverified , 12/22/17) Objective Vital Signs Last 24 Hour Vital Signs Date Time Temp Pulse Resp B/P (MAP) Pulse Ox O2 Delivery O2 Flow Rate FiO2 12/27/17 12:00 98.1 90 20 145/78 96 12/27/17 08:00 97.9 87 19 140/67 95 12/27/17 05:00 88 16 155/81 97 Nasal Cannula 2.0 12/27/17 04:00 81 12/27/17 04:00 99.0 81 20 150/71 97 Nasal Cannula 2.0 12/27/17 03:00 82 21 150/91 98 Nasal Cannula 2.0 12/27/17 02:00 84 20 138/66 97 Nasal Cannula 2.0 12/27/17 01:00 87 23 138/67 98 Nasal Cannula 2.0 12/27/17 00:00 98.5 87 19 139/65 98 Nasal Cannula 2.0 12/27/17 00:00 87 1/30/18 23:00 80 19 121/76 98 Nasal Cannula 2.0 12/26/17 22:00 79 20 141/72 100 Nasal Cannula 2.0 12/26/17 21:00 78 17 148/65 100 Nasal Cannula 2.0 12/26/17 20:00 79 18 163/111 98 Nasal Cannula 2.0 12/26/17 20:00 79 12/26/17 19:30 98 Nasal Cannula 2.0 28 12/26/17 19:30 Nasal Cannula 2.0 28 12/26/17 19:00 98.6 79 20 143/70 98 Nasal Cannula 2.0 12/26/17 18:00 81 20 139/61 99 Nasal Cannula 2.0 12/26/17 17:00 88 20 141/67 97 Nasal Cannula 2.0 12/26/17 16:00 98.8 85 20 142/61 97 Nasal Cannula 2.0 12/26/17 15:47 89 12/26/17 15:00 79 20 137/63 98 Nasal Cannula 2.0 Height (Feet): 5 Height (Inches): 9.00 Weight (Pounds): 147 General Appearance: no acute distress HEENT: normocephalic, atraumatic, anicteric, mucous membranes moist, EOMI, pharynx normal, supple, no JVD Respiratory/Chest: normal breath sounds, no respiratory distress, no accessory muscle use, crackles/rales, rhonchi - bilaterally Cardiovascular: normal rate, regular rhythm, no gallop/murmur, no JVD Abdomen: normal bowel sounds, soft, non tender, no organomegaly, non distended Genitourinary: other - + aguilera - urine clearer Extremities: no cyanosis Skin: no rash 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 ET tube tip above the mary. NG tube tip in the proximal stomach, side-port at the region of the gastroesophageal junction. Advancement recommended. There is interstitial opacification/edema, right greater than left. Patchy perihilar airspace opacities are again noted, slightly decreased. No pneumothorax. No acute osseous abnormality. Impression: Persistent interstitial and patchy perihilar airspace opacities, slightly decreased from the prior exam. Radiographic follow-up to resolution recommended. NG tube tip in the proximal stomach, side-port at the region of the gastroesophageal junction. Advancement is recommended. 12/26 - chest x-ray - Impression: Improving right upper lobe infiltrate Persistent and possibly increased left perihilar and left basilar parenchymal opacities and possible small left pleural effusion Interim endotracheal tube removal Microbiology Date/Time Source Procedure Growth Status 12/25/17 18:30 Blood Blood Culture - Preliminary NO GROWTH AFTER 24 HOURS Resulted 12/25/17 17:45 Blood Blood Culture - Preliminary NO GROWTH AFTER 24 HOURS Resulted previous cultures - noted Labs Test 12/25/17 15:04 12/26/17 03:20 Arterial Blood pH 7.480 (7.350-7.450) Arterial Blood Partial Pressure CO2 36.8 mmHg (35.0-45.0) Arterial Blood Partial Pressure O2 82.2 mmHg (75.0-100.0) Arterial Blood HCO3 27.1 mmol/L (22.0-26.0) Arterial Blood Oxygen Saturation 95.9 % (92.0-98.0) Arterial Blood Base Excess 3.7 Rhett Test Positive White Blood Count 7.7 K/UL (4.8-10.8) Red Blood Count 4.15 M/UL (4.70-6.10) Hemoglobin 10.8 G/DL (14.2-18.0) Hematocrit 34.4 % (42.0-52.0) Mean Corpuscular Volume 83 FL (80-99) Mean Corpuscular Hemoglobin 26.1 PG (27.0-31.0) Mean Corpuscular Hemoglobin Concent 31.5 G/DL (32.0-36.0) Red Cell Distribution Width 12.0 % (11.6-14.8) Platelet Count 165 K/UL (150-450) Mean Platelet Volume 6.3 FL (6.5-10.1) Neutrophils (%) (Auto) 79.1 % (45.0-75.0) Lymphocytes (%) (Auto) 12.1 % (20.0-45.0) Monocytes (%) (Auto) 7.1 % (1.0-10.0) Eosinophils (%) (Auto) 1.4 % (0.0-3.0) Basophils (%) (Auto) 0.4 % (0.0-2.0) Sodium Level 139 MMOL/L (136-145) Potassium Level 4.0 MMOL/L (3.5-5.1) Chloride Level 106 MMOL/L (98-107) Carbon Dioxide Level 27 MMOL/L (21-32) Anion Gap 6 mmol/L (5-15) Blood Urea Nitrogen 13 mg/dL (7-18) Creatinine 0.8 MG/DL (0.55-1.30) Estimat Glomerular Filtration Rate mL/min (>60) Glucose Level 108 MG/DL (74-106) Calcium Level 8.0 MG/DL (8.5-10.1) Phosphorus Level 2.6 MG/DL (2.5-4.9) Magnesium Level 1.6 MG/DL (1.8-2.4) Microbiology Date/Time Source Procedure Growth Status 12/25/17 18:30 Blood Blood Culture - Preliminary NO GROWTH AFTER 24 HOURS Resulted 12/22/17 19:30 Sputum Induced Gram Stain - Final Complete 12/22/17 19:30 Sputum Induced Sputum Culture - Final NORMAL UPPER RESPIRATORY CECILIO AT 48 ... Complete 12/22/17 14:10 Urine,Clean Catch Urine Culture - Final Citrobacter Koseri Complete 12/22/17 15:12 Rectum VRE Culture - Final NO VANCOMYCIN RESISTANT ENTEROCOCCUS ... Complete Current Medications Medications (Trade) Dose Ordered Sig/Mckenzie Route PRN Reason Start Time Stop Time Status Last Admin Dose Admin Cefepime HCl 1 gm/ Sodium Chloride 55 ml @ 110 mls/hr EVERY 12 HOURS IVPB 12/27/17 09:00 12/29/17 20:59 12/27/17 09:38 Haloperidol Lactate (Haldol) 2.5 mg Q4H PRN IM Agitation 12/27/17 09:00 01/25/18 16:59 Heparin Sodium (Porcine) (Heparin 5000 units/ml) 5,000 units EVERY 12 HOURS SUBQ 12/27/17 09:00 01/21/18 20:59 12/27/17 09:43 Metronidazole 100 ml @ 100 mls/hr Q8HR IVPB 12/27/17 14:00 12/29/17 21:59 Pantoprazole (Protonix) 40 mg DAILY IVP 12/27/17 09:00 01/22/18 08:59 12/27/17 09:40 Vancomycin HCl (Vanco rx to dose) 1 ea DAILY PRN MISC Per rx protocol 12/27/17 09:00 01/22/18 15:29 Vancomycin HCl 1 gm/Dextrose 275 ml @ 183.708 mls/hr Q24H IVPB 12/27/17 16:00 12/29/17 15:59 MIKKI VIVAS Dec 27, 2017 14:45
[2017-12-27] MEDS: Vancomycin 1 GM in D5W 275 ML IVPB SCH ×5 (17:23→17:31)
[2017-12-27] MEDS ORDERED: Sterile Water For Irrig 2000ml IRRIG ONE (17:32)
[2017-12-28] VITALS (10 sets, daily range): BP systolic 122–150; BP diastolic 62–82
[2017-12-28] MEDS: Vancomycin 1 GM in D5W 275 ML IVPB SCH ×2 (05:10→17:00)
[2017-12-28 07:05] LABS: BASOPHILS % (AUTO) 1.3 % (0.0-2.0); EOSINOPHILS % (AUTO) 3.7 % (0.0-3.0); HEMATOCRIT 38.6 % (42.0-52.0); HEMOGLOBIN 12.5 G/DL (14.2-18.0); LYMPHOCYTES % (AUTO) 14.3 % (20.0-45.0); MEAN CORPUSCULAR VOLUME 82 FL (80-99); MONOCYTES % (AUTO) 14.1 % (1.0-10.0); NEUTROPHILS % (AUTO) 66.6 % (45.0-75.0); PLATELET COUNT 211 K/UL (150-450); RED BLOOD COUNT 4.69 M/UL (4.70-6.10); RED CELL DISTRIBUTION WIDTH 11.8 % (11.6-14.8); WHITE BLOOD COUNT 5.1 K/UL (4.8-10.8)
[2017-12-28 07:37] LABS: ANION GAP 8 mmol/L (5-15); BLOOD UREA NITROGEN 14 mg/dL (7-18); CALCIUM 8.3 MG/DL (8.5-10.1); CARBON DIOXIDE 26 MMOL/L (21-32); CHLORIDE 103 MMOL/L (98-107); CREATININE 0.7 MG/DL (0.55-1.30); FERRITIN 208 NG/ML (8-388); POTASSIUM 3.9 MMOL/L (3.5-5.1); SODIUM 136 MMOL/L (136-145)
[2017-12-28 07:46] LABS: % IRON SATURATION 15 % (15-50); IRON 23 ug/dL (50-175); TOTAL IRON BINDING CAPACITY 157 ug/dL (250-450)
--- NOTE | 2017-12-28 08:09 | Critical Care Progress Note ---
Assessment/Plan Assessment/Plan IMPRESSION Respiratory failure choking episode hyperkalemia s/p CPA possible anoxia hypertension patchy infiltrates PLAN ventilator support off and monitor haldol PRN consider psych follow up support care DVT prophylaxis monitor imaging for change monitor clinically continue to assist nutrition and monitor as is for now follow up cultures guarded but stable in med floor impression, plan, and exam edited and reviewed in detail care discussed with RN medications/laboratory data/nursing notes/ICU care reviewed in detail note reviewed and edited care discussed with RN and RT ICU time spent 38 minutes Critical Care - Subjective Interval Events: care noted confused EKG Rhythm: Sinus Rhythm I&O: Intake and Output 12/27/17 12/28/17 19:00 07:00 Output Total 1400 ml 750 ml Balance -1400 ml -750 ml Output Urine Total 1400 ml 750 ml # Bowel Movements 2 2 Critical Care - Objective ET-Tube: 7.0 ET Position: 26 Last 24 Hour Vital Signs Date Time Temp Pulse Resp B/P (MAP) Pulse Ox O2 Delivery O2 Flow Rate FiO2 12/28/17 04:00 97.9 88 20 150/75 98 12/28/17 00:00 97.7 82 18 147/80 97 12/27/17 20:00 97.7 81 19 144/79 94 12/27/17 16:00 97.7 83 20 140/74 96 12/27/17 12:00 98.1 90 20 145/78 96 Labs: Labs Test 12/25/17 15:04 12/26/17 03:20 12/27/17 15:20 12/27/17 15:30 Arterial Blood pH 7.480 (7.350-7.450) Arterial Blood Partial Pressure CO2 36.8 mmHg (35.0-45.0) Arterial Blood Partial Pressure O2 82.2 mmHg (75.0-100.0) Arterial Blood HCO3 27.1 mmol/L (22.0-26.0) Arterial Blood Oxygen Saturation 95.9 % (92.0-98.0) Arterial Blood Base Excess 3.7 Rhett Test Positive White Blood Count 7.7 K/UL (4.8-10.8) Red Blood Count 4.15 M/UL (4.70-6.10) Hemoglobin 10.8 G/DL (14.2-18.0) Hematocrit 34.4 % (42.0-52.0) Mean Corpuscular Volume 83 FL (80-99) Mean Corpuscular Hemoglobin 26.1 PG (27.0-31.0) Mean Corpuscular Hemoglobin Concent 31.5 G/DL (32.0-36.0) Red Cell Distribution Width 12.0 % (11.6-14.8) Platelet Count 165 K/UL (150-450) Mean Platelet Volume 6.3 FL (6.5-10.1) Neutrophils (%) (Auto) 79.1 % (45.0-75.0) Lymphocytes (%) (Auto) 12.1 % (20.0-45.0) Monocytes (%) (Auto) 7.1 % (1.0-10.0) Eosinophils (%) (Auto) 1.4 % (0.0-3.0) Basophils (%) (Auto) 0.4 % (0.0-2.0) Sodium Level 139 MMOL/L (136-145) Potassium Level 4.0 MMOL/L (3.5-5.1) Chloride Level 106 MMOL/L (98-107) Carbon Dioxide Level 27 MMOL/L (21-32) Anion Gap 6 mmol/L (5-15) Blood Urea Nitrogen 13 mg/dL (7-18) Creatinine 0.8 MG/DL (0.55-1.30) Estimat Glomerular Filtration Rate mL/min (>60) Glucose Level 108 MG/DL (74-106) Calcium Level 8.0 MG/DL (8.5-10.1) Phosphorus Level 2.6 MG/DL (2.5-4.9) Magnesium Level 1.6 MG/DL (1.8-2.4) Vancomycin Level Trough 3.0 ug/mL (5.0-12.0) Test 12/28/17 04:55 White Blood Count 5.1 K/UL (4.8-10.8) Red Blood Count 4.69 M/UL (4.70-6.10) Hemoglobin 12.5 G/DL (14.2-18.0) Hematocrit 38.6 % (42.0-52.0) Mean Corpuscular Volume 82 FL (80-99) Mean Corpuscular Hemoglobin 26.7 PG (27.0-31.0) Mean Corpuscular Hemoglobin Concent 32.4 G/DL (32.0-36.0) Red Cell Distribution Width 11.8 % (11.6-14.8) Platelet Count 211 K/UL (150-450) Mean Platelet Volume 6.5 FL (6.5-10.1) Neutrophils (%) (Auto) 66.6 % (45.0-75.0) Lymphocytes (%) (Auto) 14.3 % (20.0-45.0) Monocytes (%) (Auto) 14.1 % (1.0-10.0) Eosinophils (%) (Auto) 3.7 % (0.0-3.0) Basophils (%) (Auto) 1.3 % (0.0-2.0) Prothrombin Time 10.8 SEC (9.30-11.50) Prothromb Time International Ratio 1.0 (0.9-1.1) Activated Partial Thromboplast Time 29 SEC (23-33) Sodium Level 136 MMOL/L (136-145) Potassium Level 3.9 MMOL/L (3.5-5.1) Chloride Level 103 MMOL/L (98-107) Carbon Dioxide Level 26 MMOL/L (21-32) Anion Gap 8 mmol/L (5-15) Blood Urea Nitrogen 14 mg/dL (7-18) Creatinine 0.7 MG/DL (0.55-1.30) Estimat Glomerular Filtration Rate mL/min (>60) Glucose Level 117 MG/DL (74-106) Calcium Level 8.3 MG/DL (8.5-10.1) Iron Level 23 ug/dL (50-175) Total Iron Binding Capacity 157 ug/dL (250-450) Percent Iron Saturation 15 % (15-50) Unsaturated Iron Binding 134 ug/dL (112-346) Ferritin 208 NG/ML (8-388) Vitamin B12 Level 876 PG/ML (193-986) Folate 17.9 NG/ML (8.6-58.9) Thyroid Stimulating Hormone (TSH) 1.366 uiU/mL (0.358-3.740) Free Thyroxine 1.56 NG/DL (0.76-1.46) Objective: Sp02 EP Interpretation: reviewed, normal General Appearance: confused Head: normocephalic, atraumatic Eyes: bilateral eye normal inspection Neck: normal inspection, carotid 2+ Respiratory: decreased breath sounds, minimal rhonchi; stable Cardiovascular #1: regular rate, rhythm, no murmur without MRG Gastrointestinal: non tender, soft, non-distended, no HSM Musculoskeletal: no CC Neurologic: agitated and confused reviewed and edited Micro: Microbiology Date/Time Source Procedure Growth Status 12/25/17 18:30 Blood Blood Culture - Preliminary NO GROWTH AFTER 48 HOURS Resulted 12/25/17 17:45 Blood Blood Culture - Preliminary NO GROWTH AFTER 48 HOURS Resulted CHIKI VAZQUEZ Dec 28, 2017 08:09
[2017-12-28] MEDS: Pantoprazole Inj IVP SCH (08:20)
[2017-12-28] MEDS: Cefepime HCl 1 GM in NS 55 ML IVPB SCH ×2 (08:20→21:00)
[2017-12-28] MEDS: Heparin 5000 units/ml inj SUBQ SCH ×2 (08:21→20:45)
--- NOTE | 2017-12-28 11:27 | Anethesia Preoperative Eval ---
Anesthesia Pre-op PMH/ROS General Date of Evaluation: Dec 28, 2017 Time of Evaluation: 11:02 Anesthesiologist: olga ASA Score: ASA 3 Mallampati Score Class I : Soft palate, uvula, fauces, pillars visible Class II: Soft palate, uvula, fauces visible Class III: Soft palate, base of uvula visible Class IV: Only hard plate visible Mallampati Classification: Class II Surgeon: rory Diagnosis: dysphagia Surgical Procedure: egd/peg Anesthesia History: none Social History: smoking - nonsmoker Family History: no anesthesia problems Allergies: Coded Allergies: No Known Allergies (Unverified , 12/22/17) Medications: see eMAR Past Medical History Cardiovascular: Reports: HTN, OR Pulmonary: Reports: other - respiratory distress Gastrointestinal/Genitourinary: Reports: other - dysphagia, bph Neurologic/Psychiatric: Reports: dementia, depression/anxiety Anesthesia Pre-op Phys. Exam Physician Exam Last Vital Signs Date Time Temp Pulse Resp B/P (MAP) Pulse Ox O2 Delivery O2 Flow Rate FiO2 12/28/17 04:00 97.9 88 20 150/75 98 12/27/17 05:00 Nasal Cannula 2.0 12/26/17 19:30 28 Constitutional: NAD Neurologic: CN 2-12 intact Cardiovascular: RRR Respiratory: CTA Gastrointestinal: S/NT/ND Airway Exam Mallampati Score: Class II MO: limited Neck: supple TMD: 2fb ROM: limited Teeth: missing, broken Anesthesia Pre-op A/P Labs Hematology Test 12/28/17 04:55 White Blood Count 5.1 K/UL (4.8-10.8) Red Blood Count 4.69 M/UL (4.70-6.10) L Hemoglobin 12.5 G/DL (14.2-18.0) L Hematocrit 38.6 % (42.0-52.0) L Mean Corpuscular Volume 82 FL (80-99) Mean Corpuscular Hemoglobin 26.7 PG (27.0-31.0) L Mean Corpuscular Hemoglobin Concent 32.4 G/DL (32.0-36.0) Red Cell Distribution Width 11.8 % (11.6-14.8) Platelet Count 211 K/UL (150-450) Mean Platelet Volume 6.5 FL (6.5-10.1) Neutrophils (%) (Auto) 66.6 % (45.0-75.0) Lymphocytes (%) (Auto) 14.3 % (20.0-45.0) L Monocytes (%) (Auto) 14.1 % (1.0-10.0) H Eosinophils (%) (Auto) 3.7 % (0.0-3.0) H Basophils (%) (Auto) 1.3 % (0.0-2.0) Reticulocyte Count Pending Coagulation Test 12/28/17 04:55 Prothrombin Time 10.8 SEC (9.30-11.50) Prothromb Time International Ratio 1.0 (0.9-1.1) Activated Partial Thromboplast Time 29 SEC (23-33) Chemistry Test 12/28/17 04:55 Sodium Level 136 MMOL/L (136-145) Potassium Level 3.9 MMOL/L (3.5-5.1) Chloride Level 103 MMOL/L (98-107) Carbon Dioxide Level 26 MMOL/L (21-32) Anion Gap 8 mmol/L (5-15) Blood Urea Nitrogen 14 mg/dL (7-18) Creatinine 0.7 MG/DL (0.55-1.30) Estimat Glomerular Filtration Rate mL/min (>60) Glucose Level 117 MG/DL (74-106) H Calcium Level 8.3 MG/DL (8.5-10.1) L Iron Level 23 ug/dL (50-175) L Total Iron Binding Capacity 157 ug/dL (250-450) L Percent Iron Saturation 15 % (15-50) Unsaturated Iron Binding 134 ug/dL (112-346) Ferritin 208 NG/ML (8-388) Vitamin B12 Level 876 PG/ML (193-986) Folate 17.9 NG/ML (8.6-58.9) Thyroid Stimulating Hormone (TSH) 1.366 uiU/mL (0.358-3.740) Free Thyroxine 1.56 NG/DL (0.76-1.46) H Risk Assessment & Plan Assessment: asa3 Plan: mac Status Change Before Surgery: No Pre-Antibiotics Drug: VALDEMAR Turcios Dec 28, 2017 11:27
[2017-12-28] MEDS ORDERED: Propofol 200mg/20ml IV ONE (11:30)
[2017-12-28] MEDS ORDERED: Lidocaine 1% MPF 10mg/ml 5ml ONE (11:30)
[2017-12-28] MEDS ORDERED: fentaNYL 100 mcg/2 mL IV PRN (11:45)
[2017-12-28] MEDS ORDERED: Midazolam 2mg/2ml Inj IVP PRN (11:45)
[2017-12-28] MEDS ORDERED: Atropine Inj 1mg/10ml Syr IV PRN (11:45)
[2017-12-28] MEDS ORDERED: DiphenhydrAMINE 50mg/ml Inj IVP PRN (11:45)
--- NOTE | 2017-12-28 11:52 | Pre-Procedure Note/Attestation ---
Pre-Procedure Note/Attestation Complete Prior to Procedure Planned Procedure: not applicable Procedure Narrative: EGD/PEG Indications for Procedure Pre-Operative Diagnosis: DYSPHAGIA Attestation I attest that I discussed the nature of the procedure; its benefits; risks and complications; and alternatives (and the risks and benefits of such alternatives ), prior to the procedure, with the patient (or the patient's legal benefits representative). I attest that, if there was a reasonable possibility of needing a blood transfusion, the patient (or the patient's legal benefits representative) was given the [facility] standardized written summary, pursuant to the Michi Haile Blood Safety Act ([place] Health and Safety Code # 1645, as amended). I attest that I re-evaluated the patient just prior to the surgery and that there has been no change in the patient's H&P, except as documented below: TIFFANIE BARAJAS Dec 28, 2017 11:52
[2017-12-28] MEDS ORDERED: NS 500ML IV ONE (11:55)
--- NOTE | 2017-12-28 11:56 | General Progress Note ---
Assessment/Plan Problem List: (1) Aspiration into respiratory tract ICD Codes: T17.908A - Unspecified foreign body in respiratory tract, part unspecified causing other injury, initial encounter SNOMED: 587468172 (2) Respiratory distress ICD Codes: R06.03 - Acute respiratory distress SNOMED: 341167984 (3) Anemia ICD Codes: D64.9 - Anemia, unspecified SNOMED: 645827132 (4) Dysphagia ICD Codes: R13.10 - Dysphagia, unspecified SNOMED: 26272521, 738051983 (5) Encounter for PEG (percutaneous endoscopic gastrostomy) ICD Codes: Z43.1 - Encounter for attention to gastrostomy SNOMED: 617220969, 060650935 Assessment/Plan PLAN FOR peg PLACEMENT TODAY Subjective ROS Limited/Unobtainable: No Allergies: Coded Allergies: No Known Allergies (Unverified , 12/22/17) Objective Last 24 Hour Vital Signs Date Time Temp Pulse Resp B/P (MAP) Pulse Ox O2 Delivery O2 Flow Rate FiO2 12/28/17 07:55 98 Nasal Cannula 2.0 28 12/28/17 07:55 Nasal Cannula 2.0 28 12/28/17 04:00 97.9 88 20 150/75 98 12/28/17 00:00 97.7 82 18 147/80 97 12/27/17 20:00 97.7 81 19 144/79 94 12/27/17 16:00 97.7 83 20 140/74 96 12/27/17 12:00 98.1 90 20 145/78 96 Intake and Output 12/27/17 12/28/17 19:00 07:00 Output Total 1400 ml 750 ml Balance -1400 ml -750 ml Output Urine Total 1400 ml 750 ml # Bowel Movements 2 2 Laboratory Tests 12/27/17 15:20: Vancomycin Level Trough 3.0L 12/27/17 15:30: Stool Occult Blood Negative 12/28/17 04:55: White Blood Count 5.1, Red Blood Count 4.69L, Hemoglobin 12.5L, Hematocrit 38.6L , Mean Corpuscular Volume 82, Mean Corpuscular Hemoglobin 26.7L, Mean Corpuscular Hemoglobin Concent 32.4, Red Cell Distribution Width 11.8, Platelet Count 211, Mean Platelet Volume 6.5, Neutrophils (%) (Auto) 66.6, Lymphocytes (% ) (Auto) 14.3L, Monocytes (%) (Auto) 14.1H, Eosinophils (%) (Auto) 3.7H, Basophils (%) (Auto) 1.3, Reticulocyte Count 0.7, Prothrombin Time 10.8, Prothromb Time International Ratio 1.0, Activated Partial Thromboplast Time 29, Sodium Level 136, Potassium Level 3.9, Chloride Level 103, Carbon Dioxide Level 26, Anion Gap 8, Blood Urea Nitrogen 14, Creatinine 0.7, Estimat Glomerular Filtration Rate , Glucose Level 117H, Calcium Level 8.3L, Iron Level 23L, Total Iron Binding Capacity 157L, Percent Iron Saturation 15, Unsaturated Iron Binding 134, Ferritin 208, Vitamin B12 Level 876, Folate 17.9, Thyroid Stimulating Hormone (TSH) 1.366, Free Thyroxine 1.56H Height (Feet): 5 Height (Inches): 8.00 Weight (Pounds): 170 General Appearance: no apparent distress EENT: normal ENT inspection Neck: supple Cardiovascular: normal rate Respiratory/Chest: decreased breath sounds Abdomen: normal bowel sounds, non tender, soft Extremities: non-tender TIFFANIE BARAJAS Dec 28, 2017 11:56
--- NOTE | 2017-12-28 12:09 | Endoscopy Procedure Note ---
Endoscopy Procedure Note Indication for Procedure: DYSPHAGIA Procedures Performed: EGD, PEG Operative Findings/Diagnosis: gu, S/P PEG Specimen: yes Pt Tolerated Procedure Well: Yes Estimated Blood Loss: none Anesthesiologist: YINA Anesthesia: MAC Implant(s) used?: No 50 yrs or older w/o bx or poly: Not Applicable 10yrs. F/U not recommended: Not Applicable TIFFANIE BARAJAS Dec 28, 2017 12:09
--- NOTE | 2017-12-28 12:35 | Immediate Post-Op Evaluation ---
Immediate Post-Op Evalulation Immediate Post-Op Evalulation Procedure: egd/peg Date of Evaluation: Dec 28, 2017 Time of Evaluation: 12:35 IV Fluids: 100ml 0.9ns Blood Products: none Estimated Blood Loss: negligible Blood Pressure Systolic: 135 Blood Pressure Diastolic: 71 Pulse Rate: 80 Respiratory Rate: 18 O2 Sat by Pulse Oximetry: 100 Temperature (Fahrenheit): 98.9 Pain Score (1-10): 0 Nausea: No Vomiting: No Complications none Patient Status: awake, reacts, patent Hydration Status: adequate Drug: VALDEMAR Turcios Dec 28, 2017 12:35
--- NOTE | 2017-12-28 12:36 | 48 Hour Post Anesthesia Eval ---
Post Anesthesia Evaluation Procedure: egd/peg Date of Evaluation: Dec 28, 2017 Time of Evaluation: 12:37 Blood Pressure Systolic: 122 0: 68 Pulse Rate: 74 Respiratory Rate: 18 Temperature (Fahrenheit): 98.9 O2 Sat by Pulse Oximetry: 100 Airway: patent Nausea: No Vomiting: No Pain Intensity: 0 Hydration Status: adequate Cardiopulmonary Status: stable Mental Status/LOC: patient returned to baseline Post-Anesthesia Complications: none Follow-up care needed: N/A VALDEMAR MADSEN Dec 28, 2017 12:36
--- NOTE | 2017-12-28 14:57 | General Progress Note ---
Assessment/Plan Assessment/Plan Resp. Failure secondary to massive aspiration - extubated Aspiration Pneumonia - IV Abx Gram Positive sepsis secondary to above. R/O MRSA or VRE sepsis Check Labs Post PEG. DC to SNF in AM if stable. Subjective Allergies: Coded Allergies: No Known Allergies (Unverified , 12/22/17) Subjective Post PEG. Objective Last 24 Hour Vital Signs Date Time Temp Pulse Resp B/P (MAP) Pulse Ox O2 Delivery O2 Flow Rate FiO2 12/28/17 13:45 98.0 79 18 137/62 100 Nasal Cannula 3.0 12/28/17 12:50 98.7 77 16 140/77 100 Nasal Cannula 3.0 12/28/17 12:40 79 16 134/68 100 Nasal Cannula 3.0 12/28/17 12:36 74 18 100 12/28/17 12:35 80 18 100 12/28/17 12:33 75 18 122/68 100 Nasal Cannula 3.0 12/28/17 12:28 76 17 130/69 100 Nasal Cannula 3.0 12/28/17 12:23 98.9 77 18 135/71 100 Nasal Cannula 3.0 12/28/17 07:55 98 Nasal Cannula 2.0 28 12/28/17 07:55 Nasal Cannula 2.0 28 12/28/17 04:00 97.9 88 20 150/75 98 12/28/17 00:00 97.7 82 18 147/80 97 12/27/17 20:00 97.7 81 19 144/79 94 12/27/17 16:00 97.7 83 20 140/74 96 Intake and Output 12/27/17 12/28/17 19:00 07:00 Output Total 1400 ml 750 ml Balance -1400 ml -750 ml Output Urine Total 1400 ml 750 ml # Bowel Movements 2 2 Laboratory Tests 12/27/17 15:20: Vancomycin Level Trough 3.0L 12/27/17 15:30: Stool Occult Blood Negative 12/28/17 04:55: White Blood Count 5.1, Red Blood Count 4.69L, Hemoglobin 12.5L, Hematocrit 38.6L , Mean Corpuscular Volume 82, Mean Corpuscular Hemoglobin 26.7L, Mean Corpuscular Hemoglobin Concent 32.4, Red Cell Distribution Width 11.8, Platelet Count 211, Mean Platelet Volume 6.5, Neutrophils (%) (Auto) 66.6, Lymphocytes (% ) (Auto) 14.3L, Monocytes (%) (Auto) 14.1H, Eosinophils (%) (Auto) 3.7H, Basophils (%) (Auto) 1.3, Reticulocyte Count 0.7, Prothrombin Time 10.8, Prothromb Time International Ratio 1.0, Activated Partial Thromboplast Time 29, Sodium Level 136, Potassium Level 3.9, Chloride Level 103, Carbon Dioxide Level 26, Anion Gap 8, Blood Urea Nitrogen 14, Creatinine 0.7, Estimat Glomerular Filtration Rate , Glucose Level 117H, Calcium Level 8.3L, Iron Level 23L, Total Iron Binding Capacity 157L, Percent Iron Saturation 15, Unsaturated Iron Binding 134, Ferritin 208, Vitamin B12 Level 876, Folate 17.9, Thyroid Stimulating Hormone (TSH) 1.366, Free Thyroxine 1.56H Height (Feet): 5 Height (Inches): 8.00 Weight (Pounds): 170 Objective Lungs B Ronchi Abd SNT. BS + No HSM. PEG in E No CCE Neuro Nonfocal. JAYSHREE RODRIGUEZ Dec 28, 2017 14:57
[2017-12-28] MEDS: Vancomycin 1.5 GM/D5W 250ML IVPB SCH (18:40)
[2017-12-29] MEDS: Vancomycin 1.5 GM/D5W 250ML IVPB SCH (06:07)
[2017-12-29 08:00] VITALS: BP 121/69
[2017-12-29] MEDS: Pantoprazole Inj IVP SCH (08:25)
[2017-12-29] MEDS: Cefepime HCl 1 GM in NS 55 ML IVPB SCH (08:25)
[2017-12-29] MEDS: Heparin 5000 units/ml inj SUBQ SCH (08:29)
--- NOTE | 2017-12-29 08:33 | Critical Care Progress Note ---
Assessment/Plan Assessment/Plan IMPRESSION Respiratory failure choking episode hyperkalemia s/p CPA possible anoxia hypertension patchy infiltrates PLAN ventilator support off and monitor haldol PRN support care DVT prophylaxis monitor imaging for change monitor clinically continue to assist nutrition and monitor as is for now follow up cultures guarded but stable in med floor and hope to proceed with dc planning impression, plan, and exam edited and reviewed in detail care discussed with RN medications/laboratory data/nursing notes/ICU care reviewed in detail note reviewed and edited care discussed with RN and RT ICU time spent 38 minutes Critical Care - Subjective Interval Events: all noted confused no distress ROS Limited/Unobtainable: Yes EKG Rhythm: Sinus Rhythm I&O: Intake and Output 12/28/17 12/29/17 19:00 07:00 Intake Total 375 ml 660 ml Output Total 940 ml Balance -565 ml 660 ml Free Water 100 ml IV Total 255 ml Tube Feeding 120 ml 560 ml Output Urine Total 940 ml # Bowel Movements 1 1 Critical Care - Objective ET-Tube: 7.0 ET Position: 26 Last 24 Hour Vital Signs Date Time Temp Pulse Resp B/P (MAP) Pulse Ox O2 Delivery O2 Flow Rate FiO2 12/29/17 08:00 97.5 79 19 121/69 96 12/28/17 20:00 98.1 78 19 143/63 99 12/28/17 19:54 98 Nasal Cannula 2.0 28 12/28/17 19:54 Nasal Cannula 2.0 28 12/28/17 16:00 98.1 93 21 143/82 98 12/28/17 13:45 98.0 79 18 137/62 100 Nasal Cannula 3.0 12/28/17 12:50 98.7 77 16 140/77 100 Nasal Cannula 3.0 12/28/17 12:40 79 16 134/68 100 Nasal Cannula 3.0 12/28/17 12:36 74 18 100 12/28/17 12:35 80 18 100 12/28/17 12:33 75 18 122/68 100 Nasal Cannula 3.0 12/28/17 12:28 76 17 130/69 100 Nasal Cannula 3.0 12/28/17 12:23 98.9 77 18 135/71 100 Nasal Cannula 3.0 Labs: Laboratory Tests Test 12/28/17 16:43 Vancomycin Level Trough 6.3 ug/mL (5.0-12.0) Objective: Sp02 EP Interpretation: reviewed, normal General Appearance: confused Head: normocephalic, atraumatic Eyes: bilateral eye normal inspection Neck: normal inspection, carotid 2+ Respiratory: decreased breath sounds, occasional rhonchi; stable Cardiovascular #1: regular rate, rhythm, no murmur without MRG Gastrointestinal: non tender, soft, non-distended, no HSM Musculoskeletal: no CC Neurologic: agitated and confused reviewed and edited CHIKI VAZQUEZ Dec 29, 2017 08:33
[2017-12-29 09:02] LABS: BASOPHILS % (AUTO) 1.2 % (0.0-2.0); EOSINOPHILS % (AUTO) 2.8 % (0.0-3.0); HEMATOCRIT 35.5 % (42.0-52.0); HEMOGLOBIN 11.9 G/DL (14.2-18.0); LYMPHOCYTES % (AUTO) 14.9 % (20.0-45.0); MEAN CORPUSCULAR VOLUME 83 FL (80-99); MONOCYTES % (AUTO) 11.5 % (1.0-10.0); NEUTROPHILS % (AUTO) 69.6 % (45.0-75.0); PLATELET COUNT 251 K/UL (150-450); RED CELL DISTRIBUTION WIDTH 11.8 % (11.6-14.8); WHITE BLOOD COUNT 5.6 K/UL (4.8-10.8)
[2017-12-29 09:24] LABS: ANION GAP 6 mmol/L (5-15); BLOOD UREA NITROGEN 15 mg/dL (7-18); CALCIUM 7.7 MG/DL (8.5-10.1); CARBON DIOXIDE 26 MMOL/L (21-32); CHLORIDE 101 MMOL/L (98-107); CREATININE 0.7 MG/DL (0.55-1.30); POTASSIUM 3.7 MMOL/L (3.5-5.1); SODIUM 133 MMOL/L (136-145)
--- NOTE | 2017-12-29 10:33 | General Progress Note ---
Assessment/Plan Assessment/Plan Resp. Failure secondary to massive aspiration - doing well post extubation. Aspiration Pneumonia - IV Abx Gram Positive sepsis resolving. Check Labs Post PEG. DC to [facility] Subjective Allergies: Coded Allergies: No Known Allergies (Unverified , 12/22/17) Subjective Post PEG. Confused. Objective Last 24 Hour Vital Signs Date Time Temp Pulse Resp B/P (MAP) Pulse Ox O2 Delivery O2 Flow Rate FiO2 12/29/17 08:00 97.5 79 19 121/69 96 12/28/17 20:00 98.1 78 19 143/63 99 12/28/17 19:54 98 Nasal Cannula 2.0 28 12/28/17 19:54 Nasal Cannula 2.0 28 12/28/17 16:00 98.1 93 21 143/82 98 12/28/17 13:45 98.0 79 18 137/62 100 Nasal Cannula 3.0 12/28/17 12:50 98.7 77 16 140/77 100 Nasal Cannula 3.0 12/28/17 12:40 79 16 134/68 100 Nasal Cannula 3.0 12/28/17 12:36 74 18 100 12/28/17 12:35 80 18 100 12/28/17 12:33 75 18 122/68 100 Nasal Cannula 3.0 12/28/17 12:28 76 17 130/69 100 Nasal Cannula 3.0 12/28/17 12:23 98.9 77 18 135/71 100 Nasal Cannula 3.0 Intake and Output 12/28/17 12/29/17 19:00 07:00 Intake Total 375 ml 660 ml Output Total 940 ml Balance -565 ml 660 ml Free Water 100 ml IV Total 255 ml Tube Feeding 120 ml 560 ml Output Urine Total 940 ml # Bowel Movements 1 1 Laboratory Tests 12/28/17 16:43: Vancomycin Level Trough 6.3 12/29/17 07:20: White Blood Count 5.6, Red Blood Count 4.30L, Hemoglobin 11.9L, Hematocrit 35.5L , Mean Corpuscular Volume 83, Mean Corpuscular Hemoglobin 27.6, Mean Corpuscular Hemoglobin Concent 33.4, Red Cell Distribution Width 11.8, Platelet Count 251, Mean Platelet Volume 6.8, Neutrophils (%) (Auto) 69.6, Lymphocytes (% ) (Auto) 14.9L, Monocytes (%) (Auto) 11.5H, Eosinophils (%) (Auto) 2.8, Basophils (%) (Auto) 1.2, Sodium Level 133L, Potassium Level 3.7, Chloride Level 101, Carbon Dioxide Level 26, Anion Gap 6, Blood Urea Nitrogen 15, Creatinine 0.7, Estimat Glomerular Filtration Rate , Glucose Level 147H, Calcium Level 7.7L Height (Feet): 5 Height (Inches): 8.00 Weight (Pounds): 163 Objective Lungs B Ronchi Christian SNT. BS + No HSM. PEG in E No CCE Neuro Nonfocal. JAYSHREE RODRIGUEZ Dec 29, 2017 10:33
[2017-12-29] MEDS ORDERED: HALDOL INJECT5 MG/ML IM (10:37)
[2017-12-29] MEDS ORDERED: HEPARIN SO5000 UNIT2 SUBQ (10:37)
[2017-12-29] MEDS ORDERED: MYLANTA30 M1 ORAL (10:37)
--- NOTE | 2017-12-29 12:30 | GI Progress Note ---
Assessment/Plan Problems: (1) Anemia ICD Codes: D64.9 - Anemia, unspecified SNOMED: 778930019 (2) Dysphagia ICD Codes: R13.10 - Dysphagia, unspecified SNOMED: 13271957, 562441110 (3) Encounter for PEG (percutaneous endoscopic gastrostomy) ICD Codes: Z43.1 - Encounter for attention to gastrostomy SNOMED: 319566208, 272506660 Status: stable Status Narrative Discussed with Dr. Medeiros. Assessment/Plan Endoscopy Procedure Note Indication for Procedure: DYSPHAGIA Procedures Performed: EGD, PEG Operative Findings/Diagnosis: gu, S/P PEG TIFFANIE MEDEIROS - Dec 28, 2017 12:[address] GT site care daily/prn prn transfusions cont ppi electrolyte replacement fu labs The patient was seen and examined at bedside and all new and available data was reviewed in the patients chart. I agree with the above findings, impression and plan. (Patient seen earlier today. Signature stamp does not reflect patient encounter time.). - Nell Medeiros MD Subjective Subjective limited Objective Last 24 Hour Vital Signs Date Time Temp Pulse Resp B/P (MAP) Pulse Ox O2 Delivery O2 Flow Rate FiO2 12/29/17 08:00 97.5 79 19 121/69 96 12/28/17 20:00 98.1 78 19 143/63 99 12/28/17 19:54 98 Nasal Cannula 2.0 28 12/28/17 19:54 Nasal Cannula 2.0 28 12/28/17 16:00 98.1 93 21 143/82 98 12/28/17 13:45 98.0 79 18 137/62 100 Nasal Cannula 3.0 12/28/17 12:50 98.7 77 16 140/77 100 Nasal Cannula 3.0 12/28/17 12:40 79 16 134/68 100 Nasal Cannula 3.0 12/28/17 12:36 74 18 100 12/28/17 12:35 80 18 100 12/28/17 12:33 75 18 122/68 100 Nasal Cannula 3.0 Intake and Output 12/28/17 12/29/17 19:00 07:00 Intake Total 375 ml 715 ml Output Total 940 ml Balance -565 ml 715 ml Free Water 100 ml IV Total 255 ml Tube Feeding 120 ml 615 ml Output Urine Total 940 ml # Bowel Movements 1 1 Laboratory Tests Test 12/28/17 16:43 12/29/17 07:20 Vancomycin Level Trough 6.3 ug/mL (5.0-12.0) White Blood Count 5.6 K/UL (4.8-10.8) Red Blood Count 4.30 M/UL (4.70-6.10) L Hemoglobin 11.9 G/DL (14.2-18.0) L Hematocrit 35.5 % (42.0-52.0) L Mean Corpuscular Volume 83 FL (80-99) Mean Corpuscular Hemoglobin 27.6 PG (27.0-31.0) Mean Corpuscular Hemoglobin Concent 33.4 G/DL (32.0-36.0) Red Cell Distribution Width 11.8 % (11.6-14.8) Platelet Count 251 K/UL (150-450) Mean Platelet Volume 6.8 FL (6.5-10.1) Neutrophils (%) (Auto) 69.6 % (45.0-75.0) Lymphocytes (%) (Auto) 14.9 % (20.0-45.0) L Monocytes (%) (Auto) 11.5 % (1.0-10.0) H Eosinophils (%) (Auto) 2.8 % (0.0-3.0) Basophils (%) (Auto) 1.2 % (0.0-2.0) Sodium Level 133 MMOL/L (136-145) L Potassium Level 3.7 MMOL/L (3.5-5.1) Chloride Level 101 MMOL/L (98-107) Carbon Dioxide Level 26 MMOL/L (21-32) Anion Gap 6 mmol/L (5-15) Blood Urea Nitrogen 15 mg/dL (7-18) Creatinine 0.7 MG/DL (0.55-1.30) Estimat Glomerular Filtration Rate mL/min (>60) Glucose Level 147 MG/DL (74-106) H Calcium Level 7.7 MG/DL (8.5-10.1) L Height (Feet): 5 Height (Inches): 8.00 Weight (Pounds): 163 General Appearance: no apparent distress Cardiovascular: normal rate Respiratory/Chest: normal breath sounds, no respiratory distress Abdominal Exam: normal bowel sounds, non tender, soft, GT site - c/d/i Extremities: non-tender Tracey Hernandez N.P. Dec 29, 2017 12:30 TIFFANIE MEDEIROS Jan 01, 2018 06:34
--- NOTE | 2017-12-29 12:56 | Procedure Note ---
DATE OF PROCEDURE: 12/28/2017 SURGEON: Davian Medeiros M.D. PROCEDURE: Upper endoscopy with biopsy and G-tube placement. ANESTHESIOLOGIST: Misty Calle M.D. INSTRUMENT: Olympus adult flexible upper endoscope. INDICATION: Dysphagia. REASON FOR PROCEDURE: The procedure, risks, benefits, and possible consequences, including hemorrhage, aspiration, perforation and infection, and alternative treatments, were explained to the patient/legal guardian by Dr. Davian Medeiros and the patient/legal guardian understood and accepted these risks. PROCEDURE: After informed consent was obtained and the patient was adequately sedated, Olympus upper endoscope was advanced from mouth into the second portion of the duodenum and retroflexion was performed in the stomach. The patient had multiple linear ulcerations, this is most probably stress-induced ulcerations that are linear, clear based, and no active bleeding at this time. Biopsy from antrum was obtained to rule out H. pylori infection. Then, under endoscopic guidance under sterile condition, a 20-Tajik pull type of G-tube was successfully placed in the epigastric area. The distance from the tip of the tube to skin was about 2.5 cm in size. The patient tolerated the procedure very well without any complication. SUMMARY OF FINDINGS: 1. Status post successful percutaneous endoscopic gastrostomy placement. 2. Linear gastric ulceration, most probably stress-induced ulcerations. RECOMMENDATIONS: 1. Follow up biopsy results and treat accordingly. 2. Continue on PPI twice a day. 3. Start G-tube feeding later today. 4. Abdominal binder. 5. Elevate the head of the bed at all times. 6. G-tube flush. 7. G-tube care. 8. The patient currently on antibiotics. We will continue. Davian Medeiros M.D. DR: NANETTE JOB#: [id number] CC:
--- NOTE | 2017-12-29 14:00 | Infectious Diseases Prog Note ---
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 Respiratory failure, on ventilator. 3. Dementia. 4. Benign prostatic hypertrophy. 5. Essential hypertension. 6. Osteoarthritis. 7. Paranoid schizophrenia. 8. Anemia. 9. Anxiety. 10. Hyperlipidemia. 11. No known allergies. 12. Social history negative. 13. Family history noncontributory. 14. MAR was noted. 15. Case was discussed with RN. 16. Continue treatment per primary consultants. 17. Intensive care unit care. 18. Skin care protocol. 19. Notes and records were noted. 20. Orders were entered. Subjective Constitutional: Reports: fatigue, Denies: fever HEENT: Denies: congestion Respiratory: Denies: shortness of breath, productive cough Cardiovascular: Denies: chest pain Gastrointestinal/Abdominal: Denies: nausea, vomiting, diarrhea Genitourinary: Reports: other - + aguilera Neurologic: Denies: headache Psychiatric: Reports: other - na Skin: Denies: rash Hematologic: Denies: bleeding Musculoskeletal: Denies: pain Allergies: Coded Allergies: No Known Allergies (Unverified , 12/22/17) Objective Vital Signs Last 24 Hour Vital Signs Date Time Temp Pulse Resp B/P (MAP) Pulse Ox O2 Delivery O2 Flow Rate FiO2 12/29/17 08:00 97.5 79 19 121/69 96 12/28/17 20:00 98.1 78 19 143/63 99 12/28/17 19:54 98 Nasal Cannula 2.0 28 12/28/17 19:54 Nasal Cannula 2.0 28 12/28/17 16:00 98.1 93 21 143/82 98 Height (Feet): 5 Height (Inches): 8.00 Weight (Pounds): 163 General Appearance: no acute distress HEENT: normocephalic, atraumatic, anicteric, mucous membranes moist Respiratory/Chest: crackles/rales, rhonchi - bilaterally Cardiovascular: normal rate, regular rhythm, no gallop/murmur, no JVD Abdomen: normal bowel sounds, soft, non tender, no organomegaly, non distended Genitourinary: other - +aguilera - urine slt cloudy Extremities: no cyanosis Skin: no rash, no ulcers Neurologic/Psychiatric: alert, responsive Lymphatic: no neck adenopathy Musculoskeletal: no effusion Objective 12/23 - chest x-ray - Findings: Heart size and mediastinal contours are stable. ET tube tip above the mary. NG tube tip in the proximal stomach, side-port at the region of the gastroesophageal junction. Advancement recommended. There is interstitial opacification/edema, right greater than left. Patchy perihilar airspace opacities are again noted, slightly decreased. No pneumothorax. No acute osseous abnormality. Impression: Persistent interstitial and patchy perihilar airspace opacities, slightly decreased from the prior exam. Radiographic follow-up to resolution recommended. NG tube tip in the proximal stomach, side-port at the region of the gastroesophageal junction. Advancement is recommended. 12/26 - chest x-ray - Impression: Improving right upper lobe infiltrate Persistent and possibly increased left perihilar and left basilar parenchymal opacities and possible small left pleural effusion Interim endotracheal tube removal Microbiology Date/Time Source Procedure Growth Status 12/25/17 18:30 Blood Blood Culture - Preliminary NO GROWTH AFTER 72 HOURS Resulted 12/22/17 19:30 Sputum Induced Gram Stain - Final Complete 12/22/17 19:30 Sputum Induced Sputum Culture - Final NORMAL UPPER RESPIRATORY CECILIO AT 48 ... Complete 12/22/17 14:10 Urine,Clean Catch Urine Culture - Final Citrobacter Koseri Complete 12/22/17 15:12 Rectum VRE Culture - Final NO VANCOMYCIN RESISTANT ENTEROCOCCUS ... Complete Laboratory Tests Test 12/28/17 16:43 12/29/17 07:20 Vancomycin Level Trough 6.3 ug/mL (5.0-12.0) White Blood Count 5.6 K/UL (4.8-10.8) Red Blood Count 4.30 M/UL (4.70-6.10) L Hemoglobin 11.9 G/DL (14.2-18.0) L Hematocrit 35.5 % (42.0-52.0) L Mean Corpuscular Volume 83 FL (80-99) Mean Corpuscular Hemoglobin 27.6 PG (27.0-31.0) Mean Corpuscular Hemoglobin Concent 33.4 G/DL (32.0-36.0) Red Cell Distribution Width 11.8 % (11.6-14.8) Platelet Count 251 K/UL (150-450) Mean Platelet Volume 6.8 FL (6.5-10.1) Neutrophils (%) (Auto) 69.6 % (45.0-75.0) Lymphocytes (%) (Auto) 14.9 % (20.0-45.0) L Monocytes (%) (Auto) 11.5 % (1.0-10.0) H Eosinophils (%) (Auto) 2.8 % (0.0-3.0) Basophils (%) (Auto) 1.2 % (0.0-2.0) Sodium Level 133 MMOL/L (136-145) L Potassium Level 3.7 MMOL/L (3.5-5.1) Chloride Level 101 MMOL/L (98-107) Carbon Dioxide Level 26 MMOL/L (21-32) Anion Gap 6 mmol/L (5-15) Blood Urea Nitrogen 15 mg/dL (7-18) Creatinine 0.7 MG/DL (0.55-1.30) Estimat Glomerular Filtration Rate mL/min (>60) Glucose Level 147 MG/DL (74-106) H Calcium Level 7.7 MG/DL (8.5-10.1) L Current Medications Medications (Trade) Dose Ordered Sig/Mckenzie Route PRN Reason Start Time Stop Time Status Last Admin Dose Admin Al Hydroxide/Mg Hydroxide (Mylanta) 15 ml Q1H PRN ORAL gi upset 12/28/17 11:45 Atropine Sulfate (Atropine) 0.5 mg Q5M PRN IV bpm less than 45 12/28/17 11:45 Cefepime HCl 1 gm/ Sodium Chloride 55 ml @ 110 mls/hr EVERY 12 HOURS IVPB 12/27/17 09:00 12/29/17 20:59 12/29/17 08:25 Diphenhydramine HCl (Benadryl) 25 mg Q15M PRN IVP Itching 12/28/17 11:45 Fentanyl Citrate (Sublimaze 100 mcg/2 mL) 25 mcg Q10M PRN IV Moderate Pain (Pain Scale 4-6) 12/28/17 11:45 Haloperidol Lactate (Haldol) 2.5 mg Q4H PRN IM Agitation 12/27/17 09:00 3/1/18 16:59 12/27/17 20:56 Heparin Sodium (Porcine) (Heparin 5000 units/ml) 5,000 units EVERY 12 HOURS SUBQ 12/27/17 09:00 01/21/18 20:59 12/29/17 08:29 Hydralazine HCl (Apresoline) 5 mg Q30M PRN IV SBP>160 OR___/DBP>90 OR___ 12/28/17 11:45 Metronidazole 100 ml @ 100 mls/hr Q8HR IVPB 12/27/17 22:00 12/29/17 21:59 12/29/17 13:04 Midazolam HCl (Versed 2mg/2ml vial) 1 mg Q15M PRN IVP For Anxiety 12/28/17 11:45 Ondansetron HCl (Zofran) 4 mg Q1H PRN IVP Nausea & Vomiting 12/28/17 11:45 Pantoprazole (Protonix) 40 mg DAILY IVP 12/27/17 09:00 01/22/18 08:59 12/29/17 08:25 Vancomycin HCl (Vanco rx to dose) 1 ea DAILY PRN MISC Per rx protocol 12/27/17 09:00 01/22/18 15:29 Vancomycin HCl/ Dextrose 250 ml @ 125 mls/hr Q12HR@0600,1800 IVPB 12/28/17 18:00 01/02/18 17:59 12/29/17 06:07 MIKKI VIVAS Dec 29, 2017 14:00
--- NOTE | 2017-12-29 14:17 | Diagnostic Imaging Report ---
Indication: Dyspnea Comparison: 12/26/2017 A single view chest radiograph was obtained. Findings: No definite infiltrate or pulmonary vascular congestion identified. The heart is enlarged. The aorta is mildly enlarged consistent with atherosclerotic vascular disease. Gastrostomy noted. The bones are osteopenic. Impression: No acute disease
[2017-12-29] MEDS ORDERED: Tubing IV Secondary IV ONE (16:04)
[2017-12-29] MEDS ORDERED: NS 500ML ONE (16:04)
[2017-12-29] MEDS ORDERED: Cefepime HCl 1 GM in NS 55 ML IVPB SCH (21:00)
--- NOTE | 2018-01-02 10:17 | Discharge Summary ---
Discharge Summary Hospital Course Date of Admission Dec 22, 2017 at 14:06 Date of Discharge Dec 29, 2017 at 16:05 Admitting Diagnosis respiratory distress HPI Rachana Smith is a 82 year old male who was admitted on Dec 22, 2017 at 14:06 for Respiratory Distress Hospital Course dc summary #[id number] Discharge Medications New Medications: Al Hydroxide/mg Hydroxide (Mag-Al Liquid) 30 Ml Oral.susp 15 ML ORAL Q1H PRN, #120 ML Haloperidol Lactate (Haloperidol Lactate) 5 Mg/1 Ml Vial 2.5 MG IM Q4H PRN, #10 VIAL Heparin Sod (Porcine) (Heparin Sodium*) 5 000/1 Ml Vial 5000 UNITS SUBQ EVERY 12 HOURS, #60 VIAL Discharge Condition Upon Discharge: stable Discharge Disposition Patient was discharged to SNF/Subacute Facility(03) Discharge Diagnoses: Discharge Instructions Discharge Instructions Special Instructions I have been assigned to complete a D/C Summary on this account. I was not involved in the patient management Chelsey Kumar NP (Vanchtein) Jan 02, 2018 10:17
--- NOTE | 2018-01-03 03:00 | Discharge Summary 2 SIG ---
DATE OF ADMISSION: 12/22/2017 DATE OF DISCHARGE: 12/29/2017 REASON FOR ADMISSION: 82-year-old male with a history of hypertension, hyperlipidemia, BPH, and organic brain syndrome, presented from the custodial facility after choking episode with respiratory distress . The patient required emergency oral intubation in the emergency room and placement of central line. Upon arrival, the patient had leukocytosis. Lactic acid -6.5. Potassium- 8.3. Troponin negative. ProBNP -134. Urinalysis showed evidence of pyuria and occasional bacteria. Chest x-ray revealed bilateral residual and alveolar infiltrates versus edema. Left perihilar disease, most likely consolidation. ADMITTING DIAGNOSES: , 1. Respiratory failure requiring intubation secondary to choking episode. 2. Status post cardiopulmonary arrest. 3. Aspiration. 4. Hyperkalemia. 5. Hypotension with history of hypertension. 6. Possible anoxia. 7. Possible sepsis. 8. Possible pneumonia. 9. Possible urinary tract infection. HOSPITAL COURSE: The patient was admitted to intensive care unit. Pulmonary and ID consults were requested. Ventilator support and pulmonary toilet were provided. The patient was closely followed by rn on site. The patient had regular ABGs and chest x-rays. The patient was on the IV fluids. Hyperkalemia was treated initially and resolved. Renal parameters and electrolytes were closely monitored. Nephrotoxics were avoided. Nutritional support provided. DVT prophylaxis provided. Eventually, the patient was able to be extubated. The patient was on the intravenous antibiotics. ID closely followed. Blood culture initially grew Staphylococcus hominis and urine culture grew Citrobacter. Influenza screen was negative. Sputum culture was negative. Surveillance blood culture were preliminary negative. Further antibiotic regimen as per ID recommendations. Continue antibiotics at the custodial facility to complete m the course. The patient with high aspiration risk. GI consult requested. The patient subsequently undergone esophagogastroduodenoscopy with percutaneous endoscopic gastrostomy placement. Abdominal binder applied. The patient was started slowly on tube feeding and advanced as tolerated. Patient was able to tolerate tube feeding. Pathology of the stomach antrum showed mild chronic gastritis, but was negative for Helicobacter infection. Strict aspiration and reflux precautions were maintained. G-tube site care provided. Hypotension resolved with IV fluids. Pulse oximetry prior to discharge was 98 % on two liters of nasal cannula. Leukocytosis resolved. Blood pressure -121/69. Hemoglobin and hematocrit were closely monitored. No need for transfusion. Stool OB was negative. Anemia workup revealed findings consistent with anemia of chronic disease. The patient was stable for discharge back to custodial facility. FINAL DIAGNOSES: 1. Acute respiratory failure requiring intubation (secondary to choking episode). 2. Status post cardiopulmonary arrest. 3. Status post extubation. 4. Aspiration. 5. Probably sepsis with bacteremia, Staphylococcus hominis. 6. Citrobacter urinary tract infection. 7. Probable aspiration pneumonia. 8. Hyperkalemia, resolved. 9. Hypotension, resolved. 10. Hypertensive heart disease. 11. Possible anoxia. 12. Dysphagia. 13. Status post esophagogastroduodenoscopy with percutaneous endoscopic gastrostomy. 14. Paranoid schizophrenia. 15. Dementia. 16. Anemia. DISCHARGE MEDICATIONS: See medication reconciliation list. DISCHARGE INSTRUCTIONS: The patient was discharged to custodial facility. FOLLOWUP: Follow up with medical doctor at the facility. Ervin Mario M.D. I have been assigned to dictate discharge summary on this account and I was not involved in the patient's management. Chelsey Kumar (Vanchtein) N.PGumaro DR: JETT JOB#: [id number] CC: HUONG
== END 2017-12-29 16:05 | DRG 208 ==
LOC: EDBD 13:00 → EMR 13:45 → ICU 14:06 → EDBEDREQ 14:16 → ICU 16:32 → 4W 12-27 05:38
PROC: 06HM33Z Insertion of Infusion Device into Right Femoral Vein, Percutaneous Approach (ICD-10-PCS; principal; 2017-12-22)
PROC: 5A1945Z Respiratory Ventilation, 24-96 Consecutive Hours (ICD-10-PCS; principal; 2017-12-22)
PROC: 5A12012 Performance of Cardiac Output, Single, Manual (ICD-10-PCS; principal; 2017-12-22)
PROC: 0BH17EZ Insertion of Endotracheal Airway into Trachea, Via Natural or Artificial Opening (ICD-10-PCS; principal; 2017-12-22)
PROC: 0DB78ZX Excision of Stomach, Pylorus, Via Natural or Artificial Opening Endoscopic, Diagnostic (ICD-10-PCS; 2017-12-28 11:59)
PROC: 0DH68UZ Insertion of Feeding Device into Stomach, Via Natural or Artificial Opening Endoscopic (ICD-10-PCS; 2017-12-28 11:59)
DX: J96.01 Acute respiratory failure with hypoxia (principal); J69.0 Pneumonitis due to inhalation of food and vomit; A41.89 Other specified sepsis; F20.0 Paranoid schizophrenia; E87.5 Hyperkalemia; R13.10 Dysphagia, unspecified; K25.9 Gastric ulcer, unspecified as acute or chronic, without hemorrhage or perforation; N39.0 Urinary tract infection, site not specified; F03.90 Unspecified dementia, unspecified severity, without behavioral disturbance, psychotic disturbance, mood disturbance, and anxiety; D64.9 Anemia, unspecified; T17.928A Food in respiratory tract, part unspecified causing other injury, initial encounter; N40.0 Benign prostatic hyperplasia without lower urinary tract symptoms; M19.90 Unspecified osteoarthritis, unspecified site; E78.5 Hyperlipidemia, unspecified; F41.9 Anxiety disorder, unspecified; X58.XXXA Exposure to other specified factors, initial encounter; Y92.129 Unspecified place in nursing home as the place of occurrence of the external cause; I11.9 Hypertensive heart disease without heart failure; F09 Unspecified mental disorder due to known physiological condition
CPT/HCPCS: 36415; 36600; 71045; 80048; 80053; 80202; 81003; 82270; 82550; 82553; 82607; 82728; 82746; 82803; 83540; 83550; 83605; 83735; 83880; 84100; 84132; 84439; 84443; 84478; 84484; 85007; 85025; 85044; 85610; 85730; 86710; 86850; 86900; 86901; 87040; 87070; 87081; 87086; 87181; 87205; 93005; 93970; 94002; 94003; 94150; 94664; 94760; 99291; J8499

== ENCOUNTER 2018-04-17 14:42 | Inpatient (IN) | payer MEDICARE, OTHER ==
[~2018-04-17] VITALS: Ht 165.1 cm; Wt 53.6 kg
[~2018-04-17 14:42] MED LIST: ASPIR 8181 MG ORAL; HALDOL INJECT5 MG/ML IM; HEPARIN SO5000 UNIT2 SUBQ; KLONOPIN0.5 MG ORAL; LISINOPRIL5 MG ORAL; METOPROLOL TART25 MG ORAL; MILK OF MA400 MG/51 ORAL; MULTIVITAMINS1 EA13 ORAL; MYLANTA30 M1 ORAL; TAMSULOSIN HCL0.4 MG ORAL; TYLENOL EXTRA500 MG ORAL; ZYPREXA2.5 MG ORAL
--- NOTE | 2018-04-17 14:53 | Emergency Room Report ---
History of Present Illness General Chief Complaint: General Complaint Source: Medical Record, EMS Present Illness HPI Patient presents from nursing facility with complaints of fever Patient himself has underlying encephalopathy Unable to provide history History of present illness remains significantly limited Unclear the duration of fever Patient has been more altered than usual as well Unknown regarding vomiting or diarrhea Allergies: Coded Allergies: No Known Allergies (Unverified , 12/22/17) Patient History Limited by: medical condition Past Medical History: see triage record Pertinent Family History: unable to obtain Reviewed Nursing Documentation: PMH: Agreed; PSxH: Agreed Nursing Documentation-PMH Hx Hypertension: Yes - [place] Hx COPD: Yes - ARDS, Pneumonitis Hx Dementia: Yes Review of Systems All Other Systems: limited - Other than the ones mentioned in the history of present illness all others are reviewed however they do stay limited due to the patient's mental status Physical Exam Vital Signs Date Time Temp Pulse Resp B/P (MAP) Pulse Ox O2 Delivery O2 Flow Rate FiO2 04/17/18 14:36 101.2 130 28 174/88 82 Room Air 101.1 Sp02 EP Interpretation: reviewed, abnormal - Document percentage is low on interpretation, on 3 L nasal cannula patient saturating at 93% which is normal General Appearance: mild distress - Appears uncomfortable Head: normocephalic, atraumatic Eyes: bilateral eye PERRL, bilateral eye EOMI ENT: dry mucus membranes Neck: supple, thyroid normal Respiratory: no respiratory distress, no retraction, no accessory muscle use, crackles - Both lower lobes Cardiovascular #1: regular rate, rhythm, no edema Gastrointestinal: non tender, soft Musculoskeletal: other - Patient does not follow commands however, reaches up purposefully with upper extremities Neurologic: responsive - To verbal and physical stimuli Skin: palpation normal, other - Poor turgor Lymphatic: no adenopathy Procedures Critical Care Time Critical Care Time 70 minutes for multiple re-evaluations Initial critical presentation findings concerning for cardiopulmonary acute pathology and possible not including any procedural time Medical Decision Making Diagnostic Impression: Primary Impression: Pneumonia Additional Impression: Respiratory distress ER Course Patient is a fairly complex patient with multiple differential to consideration including but not limited to cardiac cardiopulmonary and vascular emergencies Patient had ABG obtained Placed on BiPAP emergently Has been doing significantly better X-ray shows left-sided infiltrate In discussion with the patient's primary physician he was intubated last time in the hospital here At this time repeat ABG was done and shows improved findings patient remains awake and alert and at this time has not required intubation Patient provided with broad-spectrum antibiotics and admitted to stepdown unit for higher level of care Labs Test 04/17/18 15:10 04/17/18 15:20 04/17/18 16:40 04/17/18 16:50 White Blood Count 7.5 K/UL (4.8-10.8) Red Blood Count 5.67 M/UL (4.70-6.10) Hemoglobin 14.5 G/DL (14.2-18.0) Hematocrit 46.1 % (42.0-52.0) Mean Corpuscular Volume 81 FL (80-99) Mean Corpuscular Hemoglobin 25.5 PG (27.0-31.0) Mean Corpuscular Hemoglobin Concent 31.4 G/DL (32.0-36.0) Red Cell Distribution Width 15.9 % (11.6-14.8) Platelet Count 261 K/UL (150-450) Mean Platelet Volume 7.9 FL (6.5-10.1) Neutrophils (%) (Auto) 87.6 % (45.0-75.0) Lymphocytes (%) (Auto) 6.2 % (20.0-45.0) Monocytes (%) (Auto) 5.3 % (1.0-10.0) Eosinophils (%) (Auto) 0.0 % (0.0-3.0) Basophils (%) (Auto) 0.9 % (0.0-2.0) Sodium Level 139 MMOL/L (136-145) Potassium Level 4.1 MMOL/L (3.5-5.1) Chloride Level 103 MMOL/L (98-107) Carbon Dioxide Level 24 MMOL/L (21-32) Anion Gap 12 mmol/L (5-15) Blood Urea Nitrogen 28 mg/dL (7-18) Creatinine 1.0 MG/DL (0.55-1.30) Estimat Glomerular Filtration Rate mL/min (>60) Glucose Level 136 MG/DL (74-106) Lactic Acid Level 3.80 mmol/L (0.66-2.22) 3.90 mmol/L (0.66-2.22) Calcium Level 9.2 MG/DL (8.5-10.1) Total Bilirubin 0.9 MG/DL (0.2-1.0) Aspartate Amino Transf (AST/SGOT) 30 U/L (15-37) Alanine Aminotransferase (ALT/SGPT) 36 U/L (12-78) Alkaline Phosphatase 69 U/L (46-116) Total Creatine Kinase 89 U/L (26-308) Creatine Kinase MB 0.9 NG/ML (0.0-3.6) Creatine Kinase MB Relative Index 1.0 Troponin I 0.019 ng/mL (0.000-0.056) Pro-B-Type Natriuretic Peptide 231 pg/mL (0-125) Total Protein 8.0 G/DL (6.4-8.2) Albumin 2.9 G/DL (3.4-5.0) Globulin 5.1 g/dL Albumin/Globulin Ratio 0.6 (1.0-2.7) Lipase 154 U/L (73-393) Arterial Blood pH 7.519 (7.350-7.450) Arterial Blood Partial Pressure CO2 31.5 mmHg (35.0-45.0) Arterial Blood Partial Pressure O2 55.8 mmHg (75.0-100.0) Arterial Blood HCO3 25.1 mmol/L (22.0-26.0) Arterial Blood Oxygen Saturation 90.1 % (92.0-98.0) Arterial Blood Base Excess 2.9 Rhett Test Positive Urine Color Yellow Urine Appearance Slightly cloudy Urine pH 5 (4.5-8.0) Urine Specific [place] 1.020 (1.005-1.035) Urine Protein 2+ (NEGATIVE) Urine Glucose (UA) Negative (NEGATIVE) Urine Ketones Negative (NEGATIVE) Urine Occult Blood Negative (NEGATIVE) Urine Nitrite Negative (NEGATIVE) Urine Bilirubin Negative (NEGATIVE) Urine Urobilinogen 1 MG/DL (0.0-1.0) Urine Leukocyte Esterase 1+ (NEGATIVE) Urine RBC 0-2 /HPF (0 - 0) Urine WBC 2-4 /HPF (0 - 0) Urine Squamous Epithelial Cells None /LPF (NONE/OCC) Urine Calcium Oxalate Crystals Few /LPF (NONE) Urine Bacteria Moderate /HPF (NONE) Test 04/17/18 17:20 Arterial Blood pH 7.471 (7.350-7.450) Arterial Blood Partial Pressure CO2 31.9 mmHg (35.0-45.0) Arterial Blood Partial Pressure O2 70.3 mmHg (75.0-100.0) Arterial Blood HCO3 22.7 mmol/L (22.0-26.0) Arterial Blood Oxygen Saturation 93.7 % (92.0-98.0) Arterial Blood Base Excess -0.2 Rhett Test Positive Rhythm Strip Diag. Results EP Interpretation: yes Rate: 110 Rhythm: no PVC's, no ectopy, other - Sinus tach Chest X-Ray Diagnostic Results Chest X-Ray Diagnostic Results : Chest X-Ray Ordered: Yes # of Views/Limited/Complete: 1 View Indication: Chest Pain EP Interpretation: Yes Interpretation: no effusion, no pneumothorax, other - Left-sided infiltrate Impression: Other - Pneumonia Electronically Signed by: Kat Kruse DO Last Vital Signs Date Time Temp Pulse Resp B/P (MAP) Pulse Ox O2 Delivery O2 Flow Rate FiO2 04/17/18 14:36 101.2 130 28 174/88 82 Room Air 101.1 Status: improved Disposition: ADMITTED INPATIENT Condition: Critical Kat Kruse DO April 17, 2018 14:53
[2018-04-17] MEDS ORDERED: NS 1000ml 1,700 ML IVLG ONE (15:00)
[2018-04-17] MEDS ORDERED: Solu-MEDROL 125mg Inj IVP ONE (15:00)
[2018-04-17] MEDS ORDERED: Albuterol ud Inhalation HHN ONE (15:00)
[2018-04-17 15:30] VITALS: BP 90/57
[2018-04-17] MEDS ORDERED: Acetaminophen 650 MG SUPP RECTAL ONE (15:45)
[2018-04-17 15:46] LABS: HEMATOCRIT 46.1 % (42.0-52.0); HEMOGLOBIN 14.5 G/DL (14.2-18.0); MEAN CORPUSCULAR VOLUME 81 FL (80-99); PLATELET COUNT 261 K/UL (150-450); RED BLOOD COUNT 5.67 M/UL (4.70-6.10); RED CELL DISTRIBUTION WIDTH 15.9 % (11.6-14.8); WHITE BLOOD COUNT 7.5 K/UL (4.8-10.8)
[2018-04-17 15:50] LABS: BASOPHILS % (AUTO) 0.9 % (0.0-2.0); LYMPHOCYTES % (AUTO) 6.2 % (20.0-45.0); MONOCYTES % (AUTO) 5.3 % (1.0-10.0); NEUTROPHILS % (AUTO) 87.6 % (45.0-75.0)
[2018-04-17 16:02] LABS: ANION GAP 12 mmol/L (5-15); BLOOD UREA NITROGEN 28 mg/dL (7-18); CALCIUM 9.2 MG/DL (8.5-10.1); CARBON DIOXIDE 24 MMOL/L (21-32); CHLORIDE 103 MMOL/L (98-107); POTASSIUM 4.1 MMOL/L (3.5-5.1); SODIUM 139 MMOL/L (136-145)
[2018-04-17 16:08] LABS: ALANINE AMINOTRANSFERASE 36 U/L (12-78); ALBUMIN 2.9 G/DL (3.4-5.0); ALBUMIN/GLOBULIN RATIO 0.6 (1.0-2.7); ALKALINE PHOSPHATASE 69 U/L (46-116); ASPARTATE AMINO TRANSFERASE 30 U/L (15-37); BILIRUBIN,TOTAL 0.9 MG/DL (0.2-1.0); CKMB 0.9 NG/ML (0.0-3.6); CREATINE KINASE 89 U/L (26-308)
[2018-04-17] MEDS ORDERED: Vancomycin 1 GM in NS 275 ML IVPB ONE (16:15)
[2018-04-17] MEDS ORDERED: Piperacillin/Tazobactam 3.375 GM in NS 110 ML IVPB ONE (16:15)
--- NOTE | 2018-04-17 17:18 | Diagnostic Imaging Report ---
Indication: Chest pain Technique: One view of the chest Comparison: 12/29/2017 Findings: There is extensive infiltrate throughout the left mid and lower lung. The right lung and bilateral pleural spaces are clear. The heart size is normal Impression: Extensive left lung infiltrate, likely pneumonia, new since previous exam of December 2017
[2018-04-17 17:27] LABS: APPEARANCE,URINE SLIGHTLY CLOUDY; BILIRUBIN, URINE NEGATIVE (NEGATIVE); GLUCOSE, URINE (UA) NEGATIVE (NEGATIVE); KETONES,URINE NEGATIVE (NEGATIVE); LEUKOCYTE ESTERASE ,URINE 1+ (NEGATIVE); NITRITE,URINE NEGATIVE (NEGATIVE); PH,URINE 5 (4.5-8.0); PROTEIN,URINE 2+ (NEGATIVE); UROBILINOGEN,URINE 1 MG/DL (0.0-1.0)
[2018-04-17 17:30] LABS: COLOR,URINE YELLOW
[2018-04-17 18:00] VITALS: BP 124/63
[2018-04-17] MEDS ORDERED: NORCO 10-325 T1 EACH GT (18:16)
[2018-04-17] MEDS ORDERED: MULTI-DELYN237 ML GT (18:16)
[2018-04-17] MEDS ORDERED: WARFARIN SODIUM6 MG GT (18:16)
[2018-04-17] MEDS ORDERED: FLEET ENEMA133 ML RECTAL (18:16)
[2018-04-17] MEDS ORDERED: DUONEB 0.5-3(2.53 ML HHN (18:16)
[2018-04-17] MEDS ORDERED: CULTURELLE1 EACH GT (18:16)
[2018-04-17] MEDS ORDERED: MILK OF MA400 MG/51 GT (18:16)
[2018-04-17] MEDS ORDERED: DULCOLAX10 MG RC (18:16)
[2018-04-17] MEDS ORDERED: VITAMIN C500 M1 GT (18:17)
[2018-04-17] MEDS ORDERED: PROTONIX40 M2 GT (18:17)
[2018-04-17] MEDS ORDERED: NORCO 5-325 TA1 EACH GT (18:17)
[2018-04-17] MEDS ORDERED: ZYPREXA2.5 MG ORAL (18:17)
[2018-04-17] MEDS ORDERED: ZOFRAN4 M3 GT (18:17)
[2018-04-17] MEDS ORDERED: PRO-STAT AWC LI30 ML GT (18:17)
[2018-04-17] MEDS ORDERED: ACETAMINOPHEN325 M1 GT (18:17)
[2018-04-17 19:40] VITALS: BP 107/81
[2018-04-17 20:16] VITALS: BP 139/86
[2018-04-17 20:40] VITALS: BP 139/85
[2018-04-17] MEDS ORDERED: Albuterol/Ipratropium 3ml neb HHN PRN (21:00)
[2018-04-17] MEDS ORDERED: Enoxaparin 40mg Inj SUBQ SCH (22:00)
[2018-04-17] MEDS: 1/2NS w/KCl 20mEq 1000ml 1,000 ML IV SCH (22:32)
[2018-04-17] MEDS: Zoysn 3.37gm in NS 100ML IVPB SCH (22:40)
[2018-04-18] VITALS: BP 150/80
[2018-04-18] MEDS ORDERED: Piperacillin/Tazobactam 2.25 GM in D5W 55 ML IV SCH ×2
[2018-04-18 04:00] VITALS: BP 141/83
[2018-04-18 04:34] LABS: HEMATOCRIT 34.7 % (42.0-52.0); HEMOGLOBIN 11.2 G/DL (14.2-18.0); MEAN CORPUSCULAR VOLUME 80 FL (80-99); PLATELET COUNT 201 K/UL (150-450); RED BLOOD COUNT 4.31 M/UL (4.70-6.10); RED CELL DISTRIBUTION WIDTH 15.9 % (11.6-14.8); WHITE BLOOD COUNT 9.9 K/UL (4.8-10.8)
[2018-04-18 04:47] LABS: ANION GAP 9 mmol/L (5-15); BLOOD UREA NITROGEN 27 mg/dL (7-18); CALCIUM 8.4 MG/DL (8.5-10.1); CARBON DIOXIDE 23 MMOL/L (21-32); CHLORIDE 109 MMOL/L (98-107); CREATININE 0.8 MG/DL (0.55-1.30); POTASSIUM 3.8 MMOL/L (3.5-5.1); SODIUM 141 MMOL/L (136-145)
[2018-04-18] MEDS: Zoysn 3.37gm in NS 100ML IVPB SCH ×3 (05:30→22:00)
[2018-04-18 08:00] VITALS: BP 146/78
[2018-04-18] MEDS: Pantoprazole Inj IV SCH (08:36)
--- NOTE | 2018-04-18 09:24 | Consultation ---
Consult Note Consult Note 82 year old male present with shortness of breath and extensive left sided pneumonia. Patient initially placed on BIPAP but currently on NC oxygen and stable Patient started on antibiotics I was called to evaluate and recommend further ER notes reviewed care reviewed Patient is a poor historian and unable to assist no fevers noted Past Medical History: ARDS, pneumonia, COPD, dementia, [place], hypertension, [place] Pertinent Family History: unable to obtain Reviewed of systems: unable Physical WDWN NAD; on oxygen with some congestion reduced breath sounds with rhonchi left [id number] mildly tachy without MRG NABS nontender no HSM; GT no CCE; reduced ROM reduced LOC 143/81 106 98.4 14 94% Laboratory Tests Test 04/17/18 15:10 04/17/18 15:20 04/17/18 16:40 04/17/18 16:50 White Blood Count 7.5 K/UL (4.8-10.8) Red Blood Count 5.67 M/UL (4.70-6.10) Hemoglobin 14.5 G/DL (14.2-18.0) Hematocrit 46.1 % (42.0-52.0) Mean Corpuscular Volume 81 FL (80-99) Mean Corpuscular Hemoglobin 25.5 PG (27.0-31.0) L Mean Corpuscular Hemoglobin Concent 31.4 G/DL (32.0-36.0) L Red Cell Distribution Width 15.9 % (11.6-14.8) H Platelet Count 261 K/UL (150-450) Mean Platelet Volume 7.9 FL (6.5-10.1) Neutrophils (%) (Auto) 87.6 % (45.0-75.0) H Lymphocytes (%) (Auto) 6.2 % (20.0-45.0) L Monocytes (%) (Auto) 5.3 % (1.0-10.0) Eosinophils (%) (Auto) 0.0 % (0.0-3.0) Basophils (%) (Auto) 0.9 % (0.0-2.0) Sodium Level 139 MMOL/L (136-145) Potassium Level 4.1 MMOL/L (3.5-5.1) Chloride Level 103 MMOL/L (98-107) Carbon Dioxide Level 24 MMOL/L (21-32) Anion Gap 12 mmol/L (5-15) Blood Urea Nitrogen 28 mg/dL (7-18) H Creatinine 1.0 MG/DL (0.55-1.30) Estimat Glomerular Filtration Rate mL/min (>60) Glucose Level 136 MG/DL (74-106) H Lactic Acid Level 3.80 mmol/L (0.66-2.22) H 3.90 mmol/L (0.66-2.22) H Calcium Level 9.2 MG/DL (8.5-10.1) Total Bilirubin 0.9 MG/DL (0.2-1.0) Aspartate Amino Transf (AST/SGOT) 30 U/L (15-37) Alanine Aminotransferase (ALT/SGPT) 36 U/L (12-78) Alkaline Phosphatase 69 U/L (46-116) Total Creatine Kinase 89 U/L (26-308) Creatine Kinase MB 0.9 NG/ML (0.0-3.6) Creatine Kinase MB Relative Index 1.0 Troponin I 0.019 ng/mL (0.000-0.056) Pro-B-Type Natriuretic Peptide 231 pg/mL (0-125) H Total Protein 8.0 G/DL (6.4-8.2) Albumin 2.9 G/DL (3.4-5.0) L Globulin 5.1 g/dL Albumin/Globulin Ratio 0.6 (1.0-2.7) L Lipase 154 U/L (73-393) Arterial Blood pH 7.519 (7.350-7.450) Arterial Blood Partial Pressure CO2 31.5 mmHg (35.0-45.0) L Arterial Blood Partial Pressure O2 55.8 mmHg (75.0-100.0) L Arterial Blood HCO3 25.1 mmol/L (22.0-26.0) Arterial Blood Oxygen Saturation 90.1 % (92.0-98.0) L Arterial Blood Base Excess 2.9 Rhett Test Positive Urine Color Yellow Urine Appearance Slightly cloudy Urine pH 5 (4.5-8.0) Urine Specific [place] 1.020 (1.005-1.035) Urine Protein 2+ (NEGATIVE) H Urine Glucose (UA) Negative (NEGATIVE) Urine Ketones Negative (NEGATIVE) Urine Occult Blood Negative (NEGATIVE) Urine Nitrite Negative (NEGATIVE) Urine Bilirubin Negative (NEGATIVE) Urine Urobilinogen 1 MG/DL (0.0-1.0) H Urine Leukocyte Esterase 1+ (NEGATIVE) H Urine RBC 0-2 /HPF (0 - 0) H Urine WBC 2-4 /HPF (0 - 0) Urine Squamous Epithelial Cells None /LPF (NONE/OCC) Urine Calcium Oxalate Crystals Few /LPF (NONE) Urine Bacteria Moderate /HPF (NONE) H Test 04/17/18 17:20 04/18/18 04:00 Arterial Blood pH 7.471 (7.350-7.450) Arterial Blood Partial Pressure CO2 31.9 mmHg (35.0-45.0) L Arterial Blood Partial Pressure O2 70.3 mmHg (75.0-100.0) L Arterial Blood HCO3 22.7 mmol/L (22.0-26.0) Arterial Blood Oxygen Saturation 93.7 % (92.0-98.0) Arterial Blood Base Excess -0.2 Rhett Test Positive White Blood Count 9.9 K/UL (4.8-10.8) Red Blood Count 4.31 M/UL (4.70-6.10) L Hemoglobin 11.2 G/DL (14.2-18.0) L Hematocrit 34.7 % (42.0-52.0) L Mean Corpuscular Volume 80 FL (80-99) Mean Corpuscular Hemoglobin 26.0 PG (27.0-31.0) L Mean Corpuscular Hemoglobin Concent 32.3 G/DL (32.0-36.0) Red Cell Distribution Width 15.9 % (11.6-14.8) H Platelet Count 201 K/UL (150-450) Mean Platelet Volume 8.4 FL (6.5-10.1) Neutrophils (%) (Auto) % (45.0-75.0) Lymphocytes (%) (Auto) % (20.0-45.0) Monocytes (%) (Auto) % (1.0-10.0) Eosinophils (%) (Auto) % (0.0-3.0) Basophils (%) (Auto) % (0.0-2.0) Sodium Level 141 MMOL/L (136-145) Potassium Level 3.8 MMOL/L (3.5-5.1) Chloride Level 109 MMOL/L (98-107) H Carbon Dioxide Level 23 MMOL/L (21-32) Anion Gap 9 mmol/L (5-15) Blood Urea Nitrogen 27 mg/dL (7-18) H Creatinine 0.8 MG/DL (0.55-1.30) Estimat Glomerular Filtration Rate mL/min (>60) Glucose Level 142 MG/DL (74-106) H Calcium Level 8.4 MG/DL (8.5-10.1) L IMPRESSION extensive left sided pneumonia respiratory failure hypoxemia chronic encephalopathy aspiration GT PLAN agree with management ABG noted repeat cxr follow up culture ID evaluation IV antibiotics as is DVT prophylaxis impression, plan, and exam edited and reviewed in detail care discussed with Tim Jefferson MD April 18, 2018 09:24
--- NOTE | 2018-04-18 11:36 | Diagnostic Imaging Report ---
Indication: Dyspnea Comparison: 04/17/2018 A single view chest radiograph was obtained. Findings: There is infiltrate in the left lung consistent with pneumonia. Findings are unchanged. The heart is borderline enlarged. IMPRESSION: Extensive the left pneumonia. No change
[2018-04-18 12:00] VITALS: BP 138/89
[2018-04-18 12:53] LABS: INR 1.2 (0.9-1.1)
--- NOTE | 2018-04-18 13:02 | History and Physical Report ---
DATE OF ADMISSION: 04/17/2018 CHIEF COMPLAINT: Shortness of breath. HISTORY OF PRESENT ILLNESS: This is an 82-year-old male from [facility]. I was called yesterday by the nursing staff at [facility]. The patient became extremely short of breath and developed fever. The patient was admitted to [facility] about two months ago with aspiration pneumonia with similar presentation. He was admitted there for about three weeks and he was transferred back to [facility] after that admission. The patient re-presented to the emergency department with full-blown respiratory failure and was placed on BiPAP. The patient was seen already by Dr. Andrade, in Pulmonary consult. PAST MEDICAL HISTORY: 1. Organic brain syndrome. 2. COPD. 3. Status post G-tube placement. 4. History of DVT. 5. Psychosis. 6. Benign prostatic hypertrophy. 7. Malnutrition. 8. Onychomycosis. MEDICATIONS: 1. Coumadin, dose adjusted by the patient's INR. 2. [place] p.r.n. 3. supplements. 4. Protonix. 5. Tylenol p.r.n. 6. Vitamin C. 7. Zofran p.r.n. 8. Zyprexa. ALLERGIES: No known drug allergies. FAMILY HISTORY: Unable to obtain due to mental status. SOCIAL HISTORY: Unable to obtain due to mental status. REVIEW OF SYSTEMS: Unable to obtain due to mental status. PHYSICAL EXAMINATION: GENERAL: This is an elderly cachectic male, who is in no acute distress. VITAL SIGNS: Blood pressure 146/78, pulse 117, sinus tachycardia, respirations 16, and temperature 98.8 axillary. HEENT: The head is normocephalic and atraumatic. Pupils are equal, round, and reactive to light and accommodation consensually. NECK: Supple. Trachea midline. There was no lymphadenopathy or thyromegaly. LUNGS: Bilateral rhonchi. HEART: Tachycardia. S1 and S2. No rubs, murmurs, or gallops. ABDOMEN: Scaphoid, soft, and nontender. Bowel sounds were active. EXTREMITIES: He has onychomycosis. There is no clubbing, cyanosis, or edema. NEUROLOGICAL: He is confused. There were no gross focal findings. LABORATORY AND ANCILLARY DATA: CBC essentially within normal limits, although the hemoglobin on presentation was 14.5, today 11.2. Serum chemistry, BUN 27, creatinine 0.8, and glucose 142. Urinalysis essentially within normal limits. Chest x-ray, extensive left lung infiltrate likely pneumonia. ASSESSMENT: 1. Extensive left pneumonia. 2. Organic brain syndrome. 3. COPD. 4. Status post G-tube placement. 5. History of DVT. 6. Psychosis. 7. Benign prostatic hypertrophy. 8. Malnutrition. 9. Onychomycosis. PLAN: 1. IV antibiotics. 2. IV fluids. 3. Resume tube feeding. 4. Resume halfway medications. Ervin Mario M.D. DR: CLIFF JOB#: [id number] CC:
[2018-04-18] MEDS ORDERED: Enoxaparin 60mg Inj SUBQ SCH (15:00)
[2018-04-18 16:30] VITALS: BP 137/78
[2018-04-18] MEDS ORDERED: Warfarin Sodium 3mg ORAL ONE (17:00)
[2018-04-18] MEDS: 1/2NS w/KCl 20mEq 1000ml 1,000 ML IV SCH (18:00)
[2018-04-18] MEDS: Vancomycin 1gm/D5W 275ml IVPB SCH ×2 (18:00)
[2018-04-18 20:00] VITALS: BP 143/83
[2018-04-19] VITALS: BP 146/77
[2018-04-19 04:00] VITALS: BP 133/77
[2018-04-19] MEDS: Zoysn 3.37gm in NS 100ML IVPB SCH ×3 (05:54→21:22)
[2018-04-19 08:00] VITALS: BP 145/80
--- NOTE | 2018-04-19 08:12 | Pulmonology Progress Note ---
Assessment/Plan Assessment/Plan IMPRESSION extensive left sided pneumonia (lobar/basilar) respiratory failure hypoxemia chronic encephalopathy aspiration pneumonia GT reduced LOC PLAN in ASAF ABG noted and will monitor repeat cxr for clearing follow up culture ID evaluation IV antibiotics as is suction as needed d/w nursing DVT prophylaxis impression, plan, and exam edited and reviewed in detail care discussed with RN Subjective ROS Limited/Unobtainable: Yes Allergies: Coded Allergies: No Known Allergies (Unverified , 12/22/17) Subjective agitated on oxygen Objective Last 24 Hour Vital Signs Date Time Temp Pulse Resp B/P (MAP) Pulse Ox O2 Delivery O2 Flow Rate FiO2 04/19/18 07:20 83 18 Nasal Cannula 2.0 28 04/19/18 07:20 96 Nasal Cannula 2.0 28 04/19/18 07:20 Nasal Cannula 2.0 28 04/19/18 04:00 102 04/19/18 04:00 98.3 94 18 133/77 98 Nasal Cannula 4.0 98.3 04/19/18 00:00 98.4 94 22 146/77 96 Nasal Cannula 4.0 98.4 04/18/18 20:00 101 04/18/18 20:00 98.4 105 22 143/83 96 Nasal Cannula 4.0 98.4 04/18/18 18:59 Room Air 04/18/18 18:59 95 Room Air 21 04/18/18 18:59 89 18 Room Air 04/18/18 16:30 96.0 111 22 137/78 96 Room Air 96.0 04/18/18 16:00 4.0 04/18/18 15:27 106 04/18/18 12:00 4.0 04/18/18 12:00 98.9 116 20 138/89 94 Nasal Cannula 4.0 98.9 04/18/18 11:58 94 Nasal Cannula 2.0 28 04/18/18 11:58 Nasal Cannula 2.0 28 04/18/18 11:51 114 Intake and Output 04/18/18 04/19/18 19:00 07:00 Intake Total 1172.5 ml 1520.0 ml Output Total 900 ml 800 ml Balance 272.5 ml 720.0 ml Free Water 150 ml 350 ml IV Total 792.5 ml 660.0 ml Tube Feeding 230 ml 510 ml Output Urine Total 900 ml 800 ml # Bowel Movements 1 Objective WDWN NAD coarse breath sounds bilaterally without rhonchi or wheeze [id number] without MRG NABS nontender no HSM no CCE GT confused nonfocal Microbiology Date/Time Source Procedure Growth Status 04/17/18 15:10 Blood Blood Culture - Preliminary NO GROWTH AFTER 24 HOURS Resulted 04/17/18 14:55 Blood Blood Culture - Preliminary NO GROWTH AFTER 24 HOURS Resulted 04/17/18 16:50 Urine,Clean Catch Urine Culture - Preliminary NO GROWTH Resulted Laboratory Tests 04/18/18 09:22: Arterial Blood pH 7.482H, Arterial Blood Partial Pressure CO2 30.6L, Arterial Blood Partial Pressure O2 64.3L, Arterial Blood HCO3 22.4, Arterial Blood Oxygen Saturation 92.7, Arterial Blood Base Excess -0.3, Rhett Test Positive 04/18/18 12:15: Prothrombin Time 12.6H, Prothromb Time International Ratio 1.2H Current Medications Medications (Trade) Dose Ordered Sig/Mckenzie Route PRN Reason Start Time Stop Time Status Last Admin Dose Admin Acetaminophen (Tylenol) 650 mg Q4H PRN ORAL Mild Pain (Pain Scale 1-3) 04/17/18 21:00 05/17/18 20:59 04/18/18 02:41 Albuterol/ Ipratropium (Albuterol/ Ipratropium) 3 ml Q4HR PRN HHN Shortness of Breath 04/17/18 21:00 04/22/18 20:59 Dextrose (Dextrose 50%) 25 ml STAT PRN IV Hypoglycemia 04/17/18 21:00 05/17/18 20:59 Dextrose (Dextrose 50%) 50 ml STAT PRN IV Hypoglycemia 04/17/18 21:00 05/17/18 20:59 Enoxaparin Sodium (Lovenox) 60 mg Q12HR SUBQ 04/19/18 09:00 05/19/18 08:59 Pantoprazole (Protonix) 40 mg DAILY IV 04/18/18 09:00 05/18/18 08:59 04/18/18 08:36 Piperacillin Sod/ Tazobactam Sod 3.375 gm/Sodium Chloride 110 ml @ 27.5 mls/hr EVERY 8 HOURS IVPB 04/17/18 22:30 04/22/18 23:59 04/19/18 05:54 Sodium 1,000 ml @ 50 mls/hr Q20H IV 04/17/18 22:30 05/17/18 22:29 04/18/18 18:00 Vancomycin HCl (Vanco rx to dose) 1 ea DAILY PRN MISC Per rx protocol 04/17/18 21:00 05/17/18 20:59 Vancomycin HCl 1 gm/Dextrose 275 ml @ 183.708 mls/hr Q24H IVPB 04/18/18 18:00 04/23/18 23:59 04/18/18 18:00 Warfarin Sodium (Coumadin per pharmacy) 1 ea DAILY PRN MISC Per rx protocol 04/18/18 10:15 05/18/18 10:14 Tim Andrade MD April 19, 2018 08:12
[2018-04-19] MEDS: Pantoprazole Inj IV SCH (10:19)
[2018-04-19] MEDS: Enoxaparin 60mg Inj SUBQ SCH ×2 (10:21→21:23)
[2018-04-19 12:00] VITALS: BP 151/81
--- NOTE | 2018-04-19 12:37 | Physician Query ---
--------- THIS DOCUMENT IS A PERMANENT PART OF THE MEDICAL RECORD --------- PLEASE COMPLETE THE FORM BEFORE SIGNING Date: 04/19/2018 [employer] Bug[employer] Operator/CDS's Name: Roberto Alexander [employer] Bug[employer] Operator/CDS's Phone #: [phone] Andrade Exercise your independent professional judgment when responding to query. Questions asked do not imply particular answer is desired or expected. We greatly appreciate your clarification on this issue. Clinical Documentation States: Consult notes from 04/18/2018 impression includes "Extensive left sided pneumonia", also includes "aspiration". H&P documents patient was admitted to [facility] 2 months ago with aspiration pneumonia with similar presentation. Clinical Findings Show: Symptoms: Shortness of breath Antibiotics: Zosyn, Vancomycin Imaging: extensive infiltrate throughout the left mid and lower lung Can you please further specify known or suspected condition/type: [] Aspiration Pneumonia [] Lobar/Basilar Pneumonia [] Bacterial, other Specify organism if possible: [] Community Acquired Pneumonia [] Candidal Pneumonia [] Gram Negative Pneumonia [] Gram Positive Pneumonia [] MRSA Pneumonia [] Postoperative Pneumonia [] Pseudomonas Pneumonia [] Unable to determine [] Other Please also document response in your Progress Notes and/or Discharge Summary and indicate if the condition was present on admission. MTDD
[2018-04-19 14:02] LABS: INR 1.4 (0.9-1.1)
[2018-04-19 16:00] VITALS: BP 142/78
--- NOTE | 2018-04-19 16:07 | General Progress Note ---
Assessment/Plan Assessment/Plan Aspiration Pneumonia - IV Abx Subjective Allergies: Coded Allergies: No Known Allergies (Unverified , 12/22/17) Subjective Less SOB. Objective Last 24 Hour Vital Signs Date Time Temp Pulse Resp B/P (MAP) Pulse Ox O2 Delivery O2 Flow Rate FiO2 04/19/18 12:00 77 04/19/18 08:00 92 04/19/18 08:00 98.2 94 19 145/80 98 Nasal Cannula 4.0 98.2 04/19/18 07:20 83 18 Nasal Cannula 2.0 28 04/19/18 07:20 96 Nasal Cannula 2.0 28 04/19/18 07:20 Nasal Cannula 2.0 28 04/19/18 04:00 102 04/19/18 04:00 98.3 94 18 133/77 98 Nasal Cannula 4.0 98.3 04/19/18 00:00 98.4 94 22 146/77 96 Nasal Cannula 4.0 98.4 04/18/18 20:00 101 04/18/18 20:00 98.4 105 22 143/83 96 Nasal Cannula 4.0 98.4 04/18/18 18:59 Room Air 04/18/18 18:59 95 Room Air 21 04/18/18 18:59 89 18 Room Air 04/18/18 16:30 96.0 111 22 137/78 96 Room Air 96.0 Intake and Output 04/18/18 04/19/18 19:00 07:00 Intake Total 1172.5 ml 1520.0 ml Output Total 900 ml 800 ml Balance 272.5 ml 720.0 ml Free Water 150 ml 350 ml IV Total 792.5 ml 660.0 ml Tube Feeding 230 ml 510 ml Output Urine Total 900 ml 800 ml # Bowel Movements 1 Laboratory Tests 04/19/18 12:10: Prothrombin Time 14.7H, Prothromb Time International Ratio 1.4H Height (Feet): 5 Height (Inches): 5.00 Weight (Pounds): 125 Objective CV RR Lungs B Ronchi Abd SNT. BS + E No CCE Ervin Mario MD April 19, 2018 16:07
[2018-04-19] MEDS: 1/2NS w/KCl 20mEq 1000ml 1,000 ML IV SCH (16:12)
[2018-04-19] MEDS ORDERED: Warfarin Sodium 3mg ORAL ONE (17:00)
[2018-04-19] MEDS: Vancomycin 1gm/D5W 275ml IVPB SCH ×2 (17:39)
[2018-04-19 20:00] VITALS: BP 139/78
[2018-04-20] VITALS: BP 142/77
[2018-04-20 04:00] VITALS: BP 150/77
[2018-04-20 06:06] LABS: INR 1.5 (0.9-1.1)
[2018-04-20] MEDS: Zoysn 3.37gm in NS 100ML IVPB SCH ×3 (06:31→22:30)
[2018-04-20] MEDS: Vancomycin 1gm/D5W 275ml IVPB SCH ×4 (06:31→18:49)
[2018-04-20 08:00] VITALS: BP 155/96
--- NOTE | 2018-04-20 08:23 | Pulmonology Progress Note ---
Assessment/Plan Assessment/Plan IMPRESSION extensive left sided pneumonia (lobar/basilar) respiratory failure hypoxemia chronic encephalopathy aspiration pneumonia GT reduced LOC PLAN continue same ABG noted and will monitor repeat cxr for clearing and intervention follow up cultures reviewed IV antibiotics noted suction as needed d/w nursing DVT prophylaxis impression, plan, and exam edited and reviewed in detail care discussed with RN Subjective ROS Limited/Unobtainable: Yes Allergies: Coded Allergies: No Known Allergies (Unverified , 12/22/17) Subjective calmer no distress some congestion on oxygen Objective Last 24 Hour Vital Signs Date Time Temp Pulse Resp B/P (MAP) Pulse Ox O2 Delivery O2 Flow Rate FiO2 04/20/18 04:00 98.1 88 20 150/77 98 Nasal Cannula 4.0 98.1 04/20/18 04:00 90 04/20/18 00:00 94 04/20/18 00:00 98.6 88 20 142/77 98 Nasal Cannula 4.0 98.6 04/19/18 20:00 100 04/19/18 20:00 98.6 100 19 139/78 98 Nasal Cannula 4.0 98.6 04/19/18 19:30 90 18 Nasal Cannula 2.0 28 04/19/18 19:30 97 Nasal Cannula 2.0 28 04/19/18 19:30 Nasal Cannula 2.0 28 04/19/18 16:00 98.6 102 22 142/78 98 Nasal Cannula 4.0 98.6 04/19/18 16:00 109 04/19/18 12:00 77 04/19/18 12:00 99.3 102 19 151/81 98 Nasal Cannula 4.0 99.3 Intake and Output 04/19/18 04/20/18 19:00 07:00 Intake Total 1515 ml 1255 ml Output Total 850 ml 1200 ml Balance 665 ml 55 ml Free Water 300 ml 250 ml IV Total 600 ml 550 ml Tube Feeding 615 ml 455 ml Output Urine Total 850 ml 1200 ml # Bowel Movements 2 Objective WDWN NAD moderate breath sounds bilaterally with some rhonchi [id number] without MRG NABS nontender no HSM no CCE GT confused nonfocal Microbiology Date/Time Source Procedure Growth Status 04/17/18 15:10 Blood Blood Culture - Preliminary NO GROWTH AFTER 48 HOURS Resulted 04/17/18 14:55 Blood Blood Culture - Preliminary NO GROWTH AFTER 48 HOURS Resulted 04/17/18 16:35 Nasal Nares MRSA Culture - Final Staphylococcus Aureus - Mrsa Complete 04/17/18 16:50 Urine,Clean Catch Urine Culture - Final NO GROWTH AFTER 48 HOURS Complete 04/17/18 16:35 Rectum VRE Culture - Final Enterococcus Faecalis - Vre Complete Laboratory Tests 04/19/18 12:10: Prothrombin Time 14.7H, Prothromb Time International Ratio 1.4H 04/19/18 17:29: Vancomycin Level Trough 3.3L 04/20/18 04:30: Prothrombin Time 16.1H, Prothromb Time International Ratio 1.5H Current Medications Medications (Trade) Dose Ordered Sig/Mckenzie Route PRN Reason Start Time Stop Time Status Last Admin Dose Admin Acetaminophen (Tylenol) 650 mg Q4H PRN ORAL Mild Pain (Pain Scale 1-3) 04/17/18 21:00 05/17/18 20:59 04/18/18 02:41 Albuterol/ Ipratropium (Albuterol/ Ipratropium) 3 ml Q4HR PRN HHN Shortness of Breath 04/17/18 21:00 04/22/18 20:59 Dextrose (Dextrose 50%) 25 ml STAT PRN IV Hypoglycemia 04/17/18 21:00 05/17/18 20:59 Dextrose (Dextrose 50%) 50 ml STAT PRN IV Hypoglycemia 04/17/18 21:00 05/17/18 20:59 Enoxaparin Sodium (Lovenox) 60 mg Q12HR SUBQ 04/19/18 09:00 05/19/18 08:59 04/19/18 21:23 Pantoprazole (Protonix) 40 mg DAILY IV 04/18/18 09:00 05/18/18 08:59 04/19/18 10:19 Piperacillin Sod/ Tazobactam Sod 3.375 gm/Sodium Chloride 110 ml @ 27.5 mls/hr EVERY 8 HOURS IVPB 04/17/18 22:30 04/22/18 23:59 04/20/18 06:31 Sodium 1,000 ml @ 50 mls/hr Q20H IV 04/17/18 22:30 05/17/18 22:29 04/19/18 16:12 Vancomycin HCl (Vanco rx to dose) 1 ea DAILY PRN MISC Per rx protocol 04/17/18 21:00 05/17/18 20:59 Vancomycin HCl 1 gm/Dextrose 275 ml @ 183.708 mls/hr Q12HR@0600,1800 IVPB 04/20/18 06:00 04/25/18 05:59 04/20/18 06:31 Warfarin Sodium (Coumadin per pharmacy) 1 ea DAILY PRN MISC Per rx protocol 04/18/18 10:15 05/18/18 10:14 Tim Andrade MD April 20, 2018 08:23
[2018-04-20] MEDS: Enoxaparin 60mg Inj SUBQ SCH (09:00)
[2018-04-20 09:03] LABS: BASOPHILS % (AUTO) 0.5 % (0.0-2.0); EOSINOPHILS % (AUTO) 0.5 % (0.0-3.0); HEMATOCRIT 35.7 % (42.0-52.0); HEMOGLOBIN 11.2 G/DL (14.2-18.0); LYMPHOCYTES % (AUTO) 14.2 % (20.0-45.0); MEAN CORPUSCULAR VOLUME 82 FL (80-99); MONOCYTES % (AUTO) 6.5 % (1.0-10.0); NEUTROPHILS % (AUTO) 78.3 % (45.0-75.0); PLATELET COUNT 210 K/UL (150-450); RED BLOOD COUNT 4.36 M/UL (4.70-6.10); RED CELL DISTRIBUTION WIDTH 15.8 % (11.6-14.8); WHITE BLOOD COUNT 6.6 K/UL (4.8-10.8)
[2018-04-20] MEDS: Pantoprazole Inj IV SCH (10:15)
[2018-04-20] MEDS: 1/2NS w/KCl 20mEq 1000ml 1,000 ML IV SCH (11:49)
[2018-04-20 12:00] VITALS: BP 145/66
[2018-04-20 16:00] VITALS: BP 147/98
--- NOTE | 2018-04-20 16:29 | General Progress Note ---
Assessment/Plan Assessment/Plan Aspiration Pneumonia - IV Abx On Coumadin per Pharmacy due to h/o DVT. DW Pul. Subjective Allergies: Coded Allergies: No Known Allergies (Unverified , 12/22/17) Subjective Less SOB. Objective Last 24 Hour Vital Signs Date Time Temp Pulse Resp B/P (MAP) Pulse Ox O2 Delivery O2 Flow Rate FiO2 04/20/18 12:00 97.9 82 22 145/66 97 Nasal Cannula 2.0 97.9 04/20/18 12:00 70 04/20/18 08:29 97 Nasal Cannula 2.0 28 04/20/18 08:29 Nasal Cannula 2.0 28 04/20/18 08:29 88 18 Nasal Cannula 2.0 28 04/20/18 08:00 98.1 94 18 155/96 98 Nasal Cannula 2.0 98.1 04/20/18 08:00 84 04/20/18 04:00 98.1 88 20 150/77 98 Nasal Cannula 4.0 98.1 04/20/18 04:00 90 04/20/18 00:00 94 04/20/18 00:00 98.6 88 20 142/77 98 Nasal Cannula 4.0 98.6 04/19/18 20:00 100 04/19/18 20:00 98.6 100 19 139/78 98 Nasal Cannula 4.0 98.6 04/19/18 19:30 90 18 Nasal Cannula 2.0 28 04/19/18 19:30 97 Nasal Cannula 2.0 28 04/19/18 19:30 Nasal Cannula 2.0 28 Intake and Output 04/19/18 04/20/18 19:00 07:00 Intake Total 1515 ml 1255 ml Output Total 850 ml 1200 ml Balance 665 ml 55 ml Free Water 300 ml 250 ml IV Total 600 ml 550 ml Tube Feeding 615 ml 455 ml Output Urine Total 850 ml 1200 ml # Bowel Movements 2 Laboratory Tests 04/19/18 17:29: Vancomycin Level Trough 3.3L 04/20/18 04:30: White Blood Count 6.6, Red Blood Count 4.36L, Hemoglobin 11.2L, Hematocrit 35.7L , Mean Corpuscular Volume 82, Mean Corpuscular Hemoglobin 25.7L, Mean Corpuscular Hemoglobin Concent 31.4L, Red Cell Distribution Width 15.8H, Platelet Count 210, Mean Platelet Volume 7.6, Neutrophils (%) (Auto) 78.3H, Lymphocytes (%) (Auto) 14.2L, Monocytes (%) (Auto) 6.5, Eosinophils (%) (Auto) 0.5, Basophils (%) (Auto) 0.5, Prothrombin Time 16.1H, Prothromb Time International Ratio 1.5H Height (Feet): 5 Height (Inches): 5.00 Weight (Pounds): 125 Objective CV RR Lungs B Alana Gonzales SNT. BS + E No CCE Ervin Mario MD April 20, 2018 16:29
[2018-04-20] MEDS ORDERED: Warfarin Sodium 7.5mg ORAL SCH (17:00)
[2018-04-20 20:00] VITALS: BP 149/79
[2018-04-21] VITALS: BP 148/87
[2018-04-21 04:00] VITALS: BP 150/85
[2018-04-21] MEDS: Vancomycin 1gm/D5W 275ml IVPB SCH ×4 (05:06→19:12)
[2018-04-21 05:55] LABS: INR 1.4 (0.9-1.1)
[2018-04-21] MEDS: 1/2NS w/KCl 20mEq 1000ml 1,000 ML IV SCH (06:01)
[2018-04-21 06:04] LABS: BASOPHILS % (AUTO) 0.7 % (0.0-2.0); EOSINOPHILS % (AUTO) 3.1 % (0.0-3.0); HEMOGLOBIN 11.6 G/DL (14.2-18.0); LYMPHOCYTES % (AUTO) 17.8 % (20.0-45.0); MEAN CORPUSCULAR VOLUME 80 FL (80-99); MONOCYTES % (AUTO) 8.6 % (1.0-10.0); NEUTROPHILS % (AUTO) 69.9 % (45.0-75.0); PLATELET COUNT 224 K/UL (150-450); RED BLOOD COUNT 4.61 M/UL (4.70-6.10); WHITE BLOOD COUNT 6.3 K/UL (4.8-10.8)
[2018-04-21] MEDS: Zoysn 3.37gm in NS 100ML IVPB SCH ×3 (06:37→22:22)
[2018-04-21 08:00] VITALS: BP 164/78
[2018-04-21] MEDS: Pantoprazole Inj IV SCH (08:42)
[2018-04-21] MEDS: Enoxaparin 60mg Inj SUBQ SCH ×3 (10:00→21:00)
--- NOTE | 2018-04-21 10:29 | General Progress Note ---
Assessment/Plan Assessment/Plan Aspiration Pneumonia - IV Abx On Coumadin per Pharmacy due to h/o DVT. DW Pul. Subjective Allergies: Coded Allergies: No Known Allergies (Unverified , 12/22/17) Subjective Less SOB. Objective Last 24 Hour Vital Signs Date Time Temp Pulse Resp B/P (MAP) Pulse Ox O2 Delivery O2 Flow Rate FiO2 04/21/18 08:00 93 04/21/18 08:00 98.2 102 20 164/78 100 Nasal Cannula 2.0 98.2 04/21/18 07:35 96 16 Nasal Cannula 3.0 32 04/21/18 07:35 98 Nasal Cannula 3.0 32 04/21/18 07:35 Nasal Cannula 3.0 32 04/21/18 04:00 89 04/21/18 04:00 98.1 96 20 150/85 99 Nasal Cannula 2.0 98.1 04/21/18 00:00 98.1 85 20 148/87 99 Nasal Cannula 2.0 98.1 04/21/18 00:00 84 04/20/18 23:36 97.5 04/20/18 22:37 97.5 04/20/18 20:00 98.0 97 20 149/79 99 Nasal Cannula 2.0 98.0 04/20/18 20:00 97 04/20/18 19:59 98 Nasal Cannula 2.0 28 04/20/18 19:59 87 18 Nasal Cannula 2.0 28 04/20/18 19:59 Nasal Cannula 2.0 28 04/20/18 16:00 89 04/20/18 16:00 97.5 97 16 147/98 97 Nasal Cannula 2.0 97.5 04/20/18 12:00 97.9 82 22 145/66 97 Nasal Cannula 2.0 97.9 04/20/18 12:00 70 Intake and Output 04/20/18 04/21/18 19:00 07:00 Intake Total 1957.500 ml 1710.000 ml Output Total 1000 ml 1200 ml Balance 957.500 ml 510.000 ml Free Water 150 ml 300 ml IV Total 1027.500 ml 825.000 ml Tube Feeding 780 ml 585 ml Output Urine Total 1000 ml 1200 ml # Bowel Movements 2 2 Laboratory Tests 04/21/18 03:50: White Blood Count 6.3, Red Blood Count 4.61L, Hemoglobin 11.6L, Hematocrit 37.0L , Mean Corpuscular Volume 80, Mean Corpuscular Hemoglobin 25.3L, Mean Corpuscular Hemoglobin Concent 31.4L, Red Cell Distribution Width 15.0H, Platelet Count 224, Mean Platelet Volume 7.7, Neutrophils (%) (Auto) 69.9, Lymphocytes (%) (Auto) 17.8L, Monocytes (%) (Auto) 8.6, Eosinophils (%) (Auto) 3.1H, Basophils (%) (Auto) 0.7, Prothrombin Time 15.2H, Prothromb Time International Ratio 1.4H Height (Feet): 5 Height (Inches): 5.00 Weight (Pounds): 125 Objective CV RR Lungs B Alana Gonzales SNT. BS + E No CCE Ervin Mario MD April 21, 2018 10:29
[2018-04-21] MEDS ORDERED: NS 275ml ONE (11:09)
[2018-04-21] MEDS ORDERED: Tubing IV Secondary IV ONE (11:09)
[2018-04-21 12:00] VITALS: BP 141/79
--- NOTE | 2018-04-21 15:52 | Pulmonology Progress Note ---
Assessment/Plan Assessment/Plan IMPRESSION extensive left sided pneumonia (lobar/basilar) respiratory failure hypoxemia chronic encephalopathy aspiration pneumonia GT reduced LOC PLAN continue same for now ordered cxr for clearing and intervention follow up cultures reviewed IV antibiotics noted suction as needed d/w nursing DVT prophylaxis impression, plan, and exam edited and reviewed in detail care discussed with RN Subjective ROS Limited/Unobtainable: Yes Allergies: Coded Allergies: No Known Allergies (Unverified , 12/22/17) Subjective calmer no distress overall some congestion noted on oxygen Objective Last 24 Hour Vital Signs Date Time Temp Pulse Resp B/P (MAP) Pulse Ox O2 Delivery O2 Flow Rate FiO2 04/21/18 12:00 98.1 94 20 141/79 98 Nasal Cannula 2.0 98.1 04/21/18 11:54 93 04/21/18 08:00 93 04/21/18 08:00 98.2 102 20 164/78 100 Nasal Cannula 2.0 98.2 04/21/18 07:35 96 16 Nasal Cannula 3.0 32 04/21/18 07:35 98 Nasal Cannula 3.0 32 04/21/18 07:35 Nasal Cannula 3.0 32 04/21/18 04:00 89 04/21/18 04:00 98.1 96 20 150/85 99 Nasal Cannula 2.0 98.1 04/21/18 00:00 98.1 85 20 148/87 99 Nasal Cannula 2.0 98.1 04/21/18 00:00 84 04/20/18 23:36 97.5 04/20/18 22:37 97.5 04/20/18 20:00 98.0 97 20 149/79 99 Nasal Cannula 2.0 98.0 04/20/18 20:00 97 04/20/18 19:59 98 Nasal Cannula 2.0 28 04/20/18 19:59 87 18 Nasal Cannula 2.0 28 04/20/18 19:59 Nasal Cannula 2.0 28 04/20/18 16:00 89 04/20/18 16:00 97.5 97 16 147/98 97 Nasal Cannula 2.0 97.5 Intake and Output 04/20/18 04/21/18 19:00 07:00 Intake Total 1957.500 ml 1710.000 ml Output Total 1000 ml 1200 ml Balance 957.500 ml 510.000 ml Free Water 150 ml 300 ml IV Total 1027.500 ml 825.000 ml Tube Feeding 780 ml 585 ml Output Urine Total 1000 ml 1200 ml # Bowel Movements 2 2 Objective WDWN NAD moderate breath sounds bilaterally with some rhonchi [id number] without MRG NABS nontender no HSM no CCE GT confused nonfocal Laboratory Tests 04/21/18 03:50: White Blood Count 6.3, Red Blood Count 4.61L, Hemoglobin 11.6L, Hematocrit 37.0L , Mean Corpuscular Volume 80, Mean Corpuscular Hemoglobin 25.3L, Mean Corpuscular Hemoglobin Concent 31.4L, Red Cell Distribution Width 15.0H, Platelet Count 224, Mean Platelet Volume 7.7, Neutrophils (%) (Auto) 69.9, Lymphocytes (%) (Auto) 17.8L, Monocytes (%) (Auto) 8.6, Eosinophils (%) (Auto) 3.1H, Basophils (%) (Auto) 0.7, Prothrombin Time 15.2H, Prothromb Time International Ratio 1.4H Current Medications Medications (Trade) Dose Ordered Sig/Mckenzie Route PRN Reason Start Time Stop Time Status Last Admin Dose Admin Acetaminophen (Tylenol) 650 mg Q4H PRN ORAL Mild Pain (Pain Scale 1-3) 04/17/18 21:00 05/17/18 20:59 04/20/18 22:37 Albuterol/ Ipratropium (Albuterol/ Ipratropium) 3 ml Q4HR PRN HHN Shortness of Breath 04/17/18 21:00 04/22/18 20:59 Dextrose (Dextrose 50%) 25 ml STAT PRN IV Hypoglycemia 04/17/18 21:00 05/17/18 20:59 Dextrose (Dextrose 50%) 50 ml STAT PRN IV Hypoglycemia 04/17/18 21:00 05/17/18 20:59 Enoxaparin Sodium (Lovenox) 60 mg Q12HR SUBQ 04/19/18 09:00 05/19/18 08:59 Future hold 04/21/18 10:00 Pantoprazole (Protonix) 40 mg DAILY IV 04/18/18 09:00 05/18/18 08:59 04/21/18 08:42 Piperacillin Sod/ Tazobactam Sod 3.375 gm/Sodium Chloride 110 ml @ 27.5 mls/hr EVERY 8 HOURS IVPB 04/17/18 22:30 04/22/18 23:59 04/21/18 14:56 Sodium 1,000 ml @ 50 mls/hr Q20H IV 04/17/18 22:30 05/17/18 22:29 04/21/18 06:01 Vancomycin HCl (Vanco rx to dose) 1 ea DAILY PRN MISC Per rx protocol 04/17/18 21:00 05/17/18 20:59 Vancomycin HCl 1 gm/Dextrose 275 ml @ 183.708 mls/hr Q12HR@0600,1800 IVPB 04/20/18 06:00 04/25/18 05:59 04/21/18 05:06 Warfarin Sodium (Coumadin per pharmacy) 1 ea DAILY PRN MISC Per rx protocol 04/18/18 10:15 05/18/18 10:14 Warfarin Sodium (Coumadin) 7.5 mg COUMADIN ONCE ORAL 04/21/18 17:00 04/21/18 17:01 Tim Andrade MD April 21, 2018 15:52
[2018-04-21 16:00] VITALS: BP 135/78
[2018-04-21] MEDS ORDERED: Warfarin Sodium 7.5mg ORAL ONE (17:00)
[2018-04-21 20:00] VITALS: BP 147/84
[2018-04-22] VITALS: BP 160/85
[2018-04-22] MEDS: 1/2NS w/KCl 20mEq 1000ml 1,000 ML IV SCH ×2 (02:30→21:56)
[2018-04-22 04:00] VITALS: BP 151/80
[2018-04-22] MEDS: Zoysn 3.37gm in NS 100ML IVPB SCH ×3 (05:00→21:55)
[2018-04-22] MEDS: Vancomycin 1gm/D5W 275ml IVPB SCH ×4 (05:00→18:18)
[2018-04-22 06:18] LABS: INR 1.8 (0.9-1.1)
--- NOTE | 2018-04-22 06:55 | Pulmonology Progress Note ---
Assessment/Plan Assessment/Plan IMPRESSION extensive left sided pneumonia (lobar/basilar) respiratory failure hypoxemia chronic encephalopathy aspiration pneumonia GT reduced LOC PLAN continue same for now ordered cxr for clearing and intervention- 04/21 follow up cultures IV antibiotics noted suction as needed and monitor for change d/w nursing DVT prophylaxis impression, plan, and exam edited and reviewed in detail care discussed with RN Subjective ROS Limited/Unobtainable: Yes Allergies: Coded Allergies: No Known Allergies (Unverified , 12/22/17) Subjective calm and comfortable no distress overall on oxygen Objective Last 24 Hour Vital Signs Date Time Temp Pulse Resp B/P (MAP) Pulse Ox O2 Delivery O2 Flow Rate FiO2 04/22/18 04:00 98.1 89 20 151/80 98 Nasal Cannula 2.0 98.1 04/22/18 04:00 91 04/22/18 00:00 94 04/22/18 00:00 97.6 91 20 160/85 100 Nasal Cannula 2.0 97.6 04/21/18 20:00 98.4 93 24 147/84 96 Nasal Cannula 2.0 98.4 04/21/18 20:00 92 04/21/18 19:04 89 18 Nasal Cannula 3.0 32 04/21/18 19:04 Nasal Cannula 3.0 32 04/21/18 19:04 98 Nasal Cannula 3.0 32 04/21/18 16:17 90 04/21/18 16:00 98.3 92 21 135/78 96 Nasal Cannula 2.0 98.3 04/21/18 12:00 98.1 94 20 141/79 98 Nasal Cannula 2.0 98.1 04/21/18 11:54 93 04/21/18 08:00 93 04/21/18 08:00 98.2 102 20 164/78 100 Nasal Cannula 2.0 98.2 04/21/18 07:35 96 16 Nasal Cannula 3.0 32 04/21/18 07:35 98 Nasal Cannula 3.0 32 04/21/18 07:35 Nasal Cannula 3.0 32 Intake and Output 04/21/18 04/22/18 19:00 07:00 Intake Total 1800.0 ml 1650.0 ml Output Total 2000 ml 850 ml Balance -200.0 ml 800.0 ml Free Water 200 ml 100 ml IV Total 820.0 ml 835.0 ml Tube Feeding 780 ml 715 ml Output Urine Total 2000 ml 850 ml # Bowel Movements 3 1 Objective WDWN NAD moderate breath sounds bilaterally with only a few rhonchi [id number] without MRG NABS nontender no HSM no CCE GT confused; reduced ROM nonfocal Laboratory Tests 04/22/18 05:50: Prothrombin Time 18.7H, Prothromb Time International Ratio 1.8H Current Medications Medications (Trade) Dose Ordered Sig/Mckenzie Route PRN Reason Start Time Stop Time Status Last Admin Dose Admin Acetaminophen (Tylenol) 650 mg Q4H PRN ORAL Mild Pain (Pain Scale 1-3) 04/17/18 21:00 05/17/18 20:59 04/20/18 22:37 Albuterol/ Ipratropium (Albuterol/ Ipratropium) 3 ml Q4HR PRN HHN Shortness of Breath 04/17/18 21:00 04/22/18 20:59 Dextrose (Dextrose 50%) 25 ml STAT PRN IV Hypoglycemia 04/17/18 21:00 05/17/18 20:59 Dextrose (Dextrose 50%) 50 ml STAT PRN IV Hypoglycemia 04/17/18 21:00 05/17/18 20:59 Enoxaparin Sodium (Lovenox) 60 mg Q12HR SUBQ 04/19/18 09:00 05/19/18 08:59 Future hold 04/21/18 21:00 Pantoprazole (Protonix) 40 mg DAILY IV 04/18/18 09:00 05/18/18 08:59 04/21/18 08:42 Piperacillin Sod/ Tazobactam Sod 3.375 gm/Sodium Chloride 110 ml @ 27.5 mls/hr EVERY 8 HOURS IVPB 04/17/18 22:30 04/22/18 23:59 04/22/18 05:00 Sodium 1,000 ml @ 50 mls/hr Q20H IV 04/17/18 22:30 05/17/18 22:29 04/22/18 02:30 Vancomycin HCl (Vanco rx to dose) 1 ea DAILY PRN MISC Per rx protocol 04/17/18 21:00 05/17/18 20:59 Vancomycin HCl 1 gm/Dextrose 275 ml @ 183.708 mls/hr Q12HR@0600,1800 IVPB 04/20/18 06:00 04/25/18 05:59 04/22/18 05:00 Warfarin Sodium (Coumadin per pharmacy) 1 ea DAILY PRN MISC Per rx protocol 04/18/18 10:15 05/18/18 10:14 Tim Andrade MD April 22, 2018 06:55
[2018-04-22 08:00] VITALS: BP 148/84
--- NOTE | 2018-04-22 08:44 | Diagnostic Imaging Report ---
EXAM: XR Chest, 1 View CLINICAL HISTORY: SOB TECHNIQUE: Frontal view of the chest. COMPARISON: 04/18/18. FINDINGS: Extensive consolidation again noted to the left lung, more pronounced in the lower zones. Given differences in technique, this is not significantly changed in the interval. Redemonstrated unfolding of the thoracic aorta, though part of this appearance is clearly attributable to rotation. IMPRESSION: No significant interval change in left lung consolidation
[2018-04-22] MEDS: Pantoprazole Inj IV SCH (09:33)
[2018-04-22] MEDS: Enoxaparin 60mg Inj SUBQ SCH ×2 (09:36→21:58)
--- NOTE | 2018-04-22 11:46 | General Progress Note ---
Assessment/Plan Assessment/Plan Aspiration Pneumonia - IV Abx On Coumadin per Pharmacy due to h/o DVT. DW Pul. Subjective Allergies: Coded Allergies: No Known Allergies (Unverified , 12/22/17) Subjective Less SOB. Much more alert. Objective Last 24 Hour Vital Signs Date Time Temp Pulse Resp B/P (MAP) Pulse Ox O2 Delivery O2 Flow Rate FiO2 04/22/18 08:00 98.3 95 19 148/84 97 Room Air 98.3 04/22/18 07:54 95 04/22/18 04:00 98.1 89 20 151/80 98 Nasal Cannula 2.0 98.1 04/22/18 04:00 91 04/22/18 00:00 94 04/22/18 00:00 97.6 91 20 160/85 100 Nasal Cannula 2.0 97.6 04/21/18 20:00 98.4 93 24 147/84 96 Nasal Cannula 2.0 98.4 04/21/18 20:00 92 04/21/18 19:04 89 18 Nasal Cannula 3.0 32 04/21/18 19:04 Nasal Cannula 3.0 32 04/21/18 19:04 98 Nasal Cannula 3.0 32 04/21/18 16:17 90 04/21/18 16:00 98.3 92 21 135/78 96 Nasal Cannula 2.0 98.3 04/21/18 12:00 98.1 94 20 141/79 98 Nasal Cannula 2.0 98.1 04/21/18 11:54 93 Intake and Output 04/21/18 04/22/18 19:00 07:00 Intake Total 1800.0 ml 1792.5 ml Output Total 2000 ml 850 ml Balance -200.0 ml 942.5 ml Free Water 200 ml 100 ml IV Total 820.0 ml 912.5 ml Tube Feeding 780 ml 780 ml Output Urine Total 2000 ml 850 ml # Bowel Movements 3 1 Laboratory Tests 04/22/18 05:50: Prothrombin Time 18.7H, Prothromb Time International Ratio 1.8H Height (Feet): 5 Height (Inches): 5.00 Weight (Pounds): 125 Objective CV RR Lungs B Ronchi Abd SNT. BS + E No CCE Ervin Mario MD April 22, 2018 11:46
[2018-04-22 12:00] VITALS: BP 151/88
[2018-04-22 16:00] VITALS: BP 143/80
[2018-04-22] MEDS ORDERED: Warfarin Sodium 3mg ORAL ONE (17:00)
[2018-04-22 20:00] VITALS: BP 152/84
[2018-04-23] VITALS: BP 165/93
[2018-04-23 04:00] VITALS: BP 124/59
[2018-04-23 05:18] LABS: INR 2.2 (0.9-1.1)
[2018-04-23] MEDS: Zoysn 3.37gm in NS 100ML IVPB SCH ×2 (05:55→17:40)
[2018-04-23] MEDS: Vancomycin 1250mg/D5W 250ml IVPB SCH ×2 (06:40→17:57)
[2018-04-23 08:00] VITALS: BP 166/85
--- NOTE | 2018-04-23 08:14 | Pulmonology Progress Note ---
Assessment/Plan Assessment/Plan IMPRESSION extensive left sided pneumonia (lobar/basilar) respiratory failure hypoxemia chronic encephalopathy aspiration pneumonia GT reduced LOC PLAN continue same for now cxr wtih some infiltrates- no change follow up cultures IV antibiotics noted suction as needed and monitor for change d/w nursing monitor fluid status feeds; elevate head DVT prophylaxis impression, plan, and exam edited and reviewed in detail care discussed with RN Subjective ROS Limited/Unobtainable: Yes Allergies: Coded Allergies: No Known Allergies (Unverified , 12/22/17) Subjective calm and comfortable minimal congestion no distress overall on oxygen Objective Last 24 Hour Vital Signs Date Time Temp Pulse Resp B/P (MAP) Pulse Ox O2 Delivery O2 Flow Rate FiO2 04/23/18 04:00 98.7 95 20 124/59 99 Nasal Cannula 3.0 98.7 04/23/18 03:42 92 04/23/18 00:00 71 04/23/18 00:00 98.0 81 22 165/93 99 Nasal Cannula 3.0 98.0 04/22/18 20:00 98.5 89 18 152/84 99 Nasal Cannula 3.0 98.5 04/22/18 19:28 89 04/22/18 19:02 Nasal Cannula 3.0 32 04/22/18 19:02 91 20 Room Air 3.0 32 04/22/18 19:02 96 3.0 32 04/22/18 16:00 91 04/22/18 16:00 98.8 94 20 143/80 98 Nasal Cannula 2.0 98.8 04/22/18 12:00 97.7 93 19 151/88 97 Room Air 97.7 04/22/18 11:48 91 04/22/18 09:16 95 3.0 32 04/22/18 09:16 94 20 Room Air 3.0 32 04/22/18 09:16 Nasal Cannula 3.0 32 Intake and Output 04/22/18 04/23/18 19:00 07:00 Intake Total 1897.7 ml 1660.21 ml Output Total 1900 ml 1600 ml Balance -2.3 ml 60.21 ml Free Water 300 ml 450 ml IV Total 817.7 ml 690.21 ml Tube Feeding 780 ml 520 ml Output Urine Total 1900 ml 1600 ml # Bowel Movements 1 4 Objective WDWN NAD moderate breath sounds bilaterally with some scattered rhonchi [id number] without MRG NABS nontender no HSM no CCE GT confused; reduced ROM nonfocal Laboratory Tests 04/22/18 17:00: Vancomycin Level Trough 13.7H 04/23/18 04:05: Prothrombin Time 22.7H, Prothromb Time International Ratio 2.2H Current Medications Medications (Trade) Dose Ordered Sig/Mckenzie Route PRN Reason Start Time Stop Time Status Last Admin Dose Admin Acetaminophen (Tylenol) 650 mg Q4H PRN ORAL Mild Pain (Pain Scale 1-3) 04/17/18 21:00 05/17/18 20:59 04/20/18 22:37 Dextrose (Dextrose 50%) 25 ml STAT PRN IV Hypoglycemia 04/17/18 21:00 05/17/18 20:59 Dextrose (Dextrose 50%) 50 ml STAT PRN IV Hypoglycemia 04/17/18 21:00 05/17/18 20:59 Enoxaparin Sodium (Lovenox) 60 mg Q12HR SUBQ 04/19/18 09:00 05/19/18 08:59 Future hold 04/22/18 21:58 Pantoprazole (Protonix) 40 mg DAILY IV 04/18/18 09:00 05/18/18 08:59 04/22/18 09:33 Piperacillin Sod/ Tazobactam Sod 3.375 gm/Sodium Chloride 110 ml @ 27.5 mls/hr EVERY 8 HOURS IVPB 04/17/18 22:30 04/27/18 22:29 04/23/18 05:55 Sodium 1,000 ml @ 50 mls/hr Q20H IV 04/17/18 22:30 05/17/18 22:29 04/22/18 21:56 Vancomycin HCl (Vanco rx to dose) 1 ea DAILY PRN MISC Per rx protocol 04/17/18 21:00 05/17/18 20:59 Vancomycin HCl/ Dextrose 250 ml @ 166.667 mls/hr Q12H IVPB 04/23/18 06:00 04/28/18 23:59 04/23/18 06:40 Warfarin Sodium (Coumadin per pharmacy) 1 ea DAILY PRN MISC Per rx protocol 04/18/18 10:15 05/18/18 10:14 Tim Andrade MD April 23, 2018 08:14
[2018-04-23] MEDS: Pantoprazole Inj IV SCH (08:29)
[2018-04-23] MEDS: Enoxaparin 60mg Inj SUBQ SCH ×2 (08:33→21:20)
[2018-04-23 11:25] VITALS: BP 150/83
--- NOTE | 2018-04-23 12:31 | General Progress Note ---
Assessment/Plan Assessment/Plan Aspiration Pneumonia - IV Abx On Coumadin per Pharmacy due to h/o DVT. INR therapeutic. Subjective Allergies: Coded Allergies: No Known Allergies (Unverified , 12/22/17) Subjective Less SOB. Much more alert. Objective Last 24 Hour Vital Signs Date Time Temp Pulse Resp B/P (MAP) Pulse Ox O2 Delivery O2 Flow Rate FiO2 04/23/18 11:25 97.7 81 20 150/83 84 Nasal Cannula 1.0 97.7 04/23/18 08:56 Nasal Cannula 1.0 24 04/23/18 08:56 100 Nasal Cannula 1.0 24 04/23/18 08:55 88 20 Room Air 1.0 24 04/23/18 08:00 86 04/23/18 08:00 97.3 84 20 166/85 99 Nasal Cannula 3.0 97.3 04/23/18 04:00 98.7 95 20 124/59 99 Nasal Cannula 3.0 98.7 04/23/18 03:42 92 04/23/18 00:00 71 04/23/18 00:00 98.0 81 22 165/93 99 Nasal Cannula 3.0 98.0 04/22/18 20:00 98.5 89 18 152/84 99 Nasal Cannula 3.0 98.5 04/22/18 19:28 89 04/22/18 19:02 Nasal Cannula 3.0 32 04/22/18 19:02 91 20 Room Air 3.0 32 04/22/18 19:02 96 3.0 32 04/22/18 16:00 91 04/22/18 16:00 98.8 94 20 143/80 98 Nasal Cannula 2.0 98.8 Intake and Output 04/22/18 04/23/18 19:00 07:00 Intake Total 1897.7 ml 1660.21 ml Output Total 1900 ml 1600 ml Balance -2.3 ml 60.21 ml Free Water 300 ml 450 ml IV Total 817.7 ml 690.21 ml Tube Feeding 780 ml 520 ml Output Urine Total 1900 ml 1600 ml # Bowel Movements 1 4 Laboratory Tests 04/22/18 17:00: Vancomycin Level Trough 13.7H 04/23/18 04:05: Prothrombin Time 22.7H, Prothromb Time International Ratio 2.2H Height (Feet): 5 Height (Inches): 5.00 Weight (Pounds): 125 Objective CV RR Lungs B Alana Gonzales SNT. BS + E No CCE Ervin Mario MD April 23, 2018 12:31
[2018-04-23 16:00] VITALS: BP 138/87
[2018-04-23] MEDS ORDERED: Warfarin Sodium 3mg ORAL ONE (17:00)
[2018-04-23] MEDS: 1/2NS w/KCl 20mEq 1000ml 1,000 ML IV SCH (18:30)
[2018-04-23 20:00] VITALS: BP 128/99
[2018-04-24] VITALS: BP 162/93
[2018-04-24] MEDS: 1/2NS w/KCl 20mEq 1000ml 1,000 ML IV SCH ×2 (00:01→22:52)
[2018-04-24] MEDS: Zoysn 3.37gm in NS 100ML IVPB SCH ×3 (01:59→17:54)
[2018-04-24 03:20] LABS: INR 2.3 (0.9-1.1)
[2018-04-24 04:00] VITALS: BP 142/85
[2018-04-24] MEDS: Vancomycin 1250mg/D5W 250ml IVPB SCH ×2 (05:32→17:32)
[2018-04-24 08:00] VITALS: BP 134/89
--- NOTE | 2018-04-24 09:03 | General Progress Note ---
Assessment/Plan Assessment/Plan Aspiration Pneumonia - IV Abx On Coumadin per Pharmacy due to h/o DVT. INR therapeutic. Receck CXR Subjective Allergies: Coded Allergies: No Known Allergies (Unverified , 12/22/17) Subjective Less SOB. Much more alert. Objective Last 24 Hour Vital Signs Date Time Temp Pulse Resp B/P (MAP) Pulse Ox O2 Delivery O2 Flow Rate FiO2 04/24/18 06:40 82 18 Room Air 1.0 24 04/24/18 06:40 98 Nasal Cannula 1.0 24 04/24/18 06:40 Nasal Cannula 1.0 24 04/24/18 04:00 106 04/24/18 04:00 97.0 113 24 142/85 97 Nasal Cannula 1.0 97.0 04/24/18 00:00 98.1 97 20 162/93 99 Nasal Cannula 1.0 98.1 04/23/18 23:52 99 04/23/18 20:59 Nasal Cannula 1.0 24 04/23/18 20:59 98 Nasal Cannula 1.0 24 04/23/18 20:59 86 18 Room Air 1.0 24 04/23/18 20:00 98.4 88 22 128/99 99 Nasal Cannula 1.0 98.4 04/23/18 19:46 87 04/23/18 16:00 85 04/23/18 16:00 97.5 89 18 138/87 97 Nasal Cannula 1.0 97.5 04/23/18 12:00 81 04/23/18 11:25 97.7 81 20 150/83 84 Nasal Cannula 1.0 97.7 Intake and Output 04/23/18 04/24/18 19:00 07:00 Intake Total 1180 ml 1625.067 ml Output Total 2500 ml 1200 ml Balance -1320 ml 425.067 ml Free Water 400 ml 400 ml IV Total 705.067 ml Tube Feeding 780 ml 520 ml Output Urine Total 2500 ml 1200 ml # Bowel Movements 2 Laboratory Tests 04/24/18 01:35: Prothrombin Time 23.9H, Prothromb Time International Ratio 2.3H Height (Feet): 5 Height (Inches): 5.00 Weight (Pounds): 125 Objective CV RR Lungs B Ronchi Abd SNT. BS + E No CCE Ervin Mario MD April 24, 2018 09:03
[2018-04-24] MEDS: Pantoprazole Inj IV SCH (09:26)
--- NOTE | 2018-04-24 11:30 | Diagnostic Imaging Report ---
Indication: Dyspnea Comparison: 04/22/2018 A single view chest radiograph was obtained. Findings: Reticular densities noted focally at the left lung base. Consider pneumonia or infiltrate. There is no change. IMPRESSION: Suspected left basal infiltrate
--- NOTE | 2018-04-24 11:48 | Pulmonology Progress Note ---
Assessment/Plan Assessment/Plan IMPRESSION extensive left sided pneumonia (lobar/basilar) respiratory failure hypoxemia chronic encephalopathy aspiration pneumonia GT reduced LOC PLAN continue same for now cxr improved; expect clearing to lag follow up cultures IV antibiotics noted suction as needed and monitor for change aspiration precautions monitor fluid status feeds; elevate head DVT prophylaxis as is feeds impression, plan, and exam edited and reviewed in detail care discussed with RN Subjective ROS Limited/Unobtainable: Yes Allergies: Coded Allergies: No Known Allergies (Unverified , 12/22/17) Subjective calm and comfortable reduced congestion no distress overall on oxygen and feeds Objective Last 24 Hour Vital Signs Date Time Temp Pulse Resp B/P (MAP) Pulse Ox O2 Delivery O2 Flow Rate FiO2 04/24/18 08:00 107 04/24/18 08:00 97.8 112 26 134/89 98 Nasal Cannula 1.0 97.8 04/24/18 06:40 82 18 Room Air 1.0 24 04/24/18 06:40 98 Nasal Cannula 1.0 24 04/24/18 06:40 Nasal Cannula 1.0 24 04/24/18 04:00 106 04/24/18 04:00 97.0 113 24 142/85 97 Nasal Cannula 1.0 97.0 04/24/18 00:00 98.1 97 20 162/93 99 Nasal Cannula 1.0 98.1 04/23/18 23:52 99 04/23/18 20:59 Nasal Cannula 1.0 24 04/23/18 20:59 98 Nasal Cannula 1.0 24 04/23/18 20:59 86 18 Room Air 1.0 24 04/23/18 20:00 98.4 88 22 128/99 99 Nasal Cannula 1.0 98.4 04/23/18 19:46 87 04/23/18 16:00 85 04/23/18 16:00 97.5 89 18 138/87 97 Nasal Cannula 1.0 97.5 04/23/18 12:00 81 Intake and Output 04/23/18 04/24/18 19:00 07:00 Intake Total 1180 ml 1625.067 ml Output Total 2500 ml 1200 ml Balance -1320 ml 425.067 ml Free Water 400 ml 400 ml IV Total 705.067 ml Tube Feeding 780 ml 520 ml Output Urine Total 2500 ml 1200 ml # Bowel Movements 2 Objective WDWN NAD moderate breath sounds bilaterally- improved with minimal rhonchi [id number] without MRG NABS nontender no HSM no CCE GT confused; reduced ROM nonfocal Laboratory Tests 04/24/18 01:35: Prothrombin Time 23.9H, Prothromb Time International Ratio 2.3H Current Medications Medications (Trade) Dose Ordered Sig/Mckenzie Route PRN Reason Start Time Stop Time Status Last Admin Dose Admin Acetaminophen (Tylenol) 650 mg Q4H PRN ORAL Mild Pain (Pain Scale 1-3) 04/17/18 21:00 05/17/18 20:59 04/20/18 22:37 Dextrose (Dextrose 50%) 25 ml STAT PRN IV Hypoglycemia 04/17/18 21:00 05/17/18 20:59 Dextrose (Dextrose 50%) 50 ml STAT PRN IV Hypoglycemia 04/17/18 21:00 05/17/18 20:59 Pantoprazole (Protonix) 40 mg DAILY IV 04/18/18 09:00 05/18/18 08:59 04/24/18 09:26 Piperacillin Sod/ Tazobactam Sod 3.375 gm/Sodium Chloride 110 ml @ 27.5 mls/hr Q8HR@0200,1000,1800 IVPB 04/24/18 02:00 05/01/18 01:59 04/24/18 09:31 Sodium 1,000 ml @ 50 mls/hr Q20H IV 04/17/18 22:30 05/17/18 22:29 04/24/18 00:01 Vancomycin HCl (Vanco rx to dose) 1 ea DAILY PRN MISC Per rx protocol 04/17/18 21:00 05/17/18 20:59 Vancomycin HCl/ Dextrose 250 ml @ 166.667 mls/hr Q12H IVPB 04/23/18 06:00 04/28/18 23:59 04/24/18 05:32 Warfarin Sodium (Coumadin per pharmacy) 1 ea DAILY PRN MISC Per rx protocol 04/18/18 10:15 05/18/18 10:14 Warfarin Sodium (Coumadin) 6 mg COUMADIN ONCE ORAL 04/24/18 17:00 04/24/18 17:01 Tim Andrade MD April 24, 2018 11:48
[2018-04-24 12:00] VITALS: BP 127/76
[2018-04-24 16:00] VITALS: BP 120/78
[2018-04-24] MEDS ORDERED: Warfarin Sodium 3mg ORAL ONE (17:00)
[2018-04-24 19:48] VITALS: BP 124/76
[2018-04-25 00:48] VITALS: BP 136/88
[2018-04-25] MEDS: Piperacillin/Tazobactam 3.375 GM in NS 110 ML IVPB SCH ×3 (02:07→17:09)
[2018-04-25 04:00] VITALS: BP 122/73
[2018-04-25] MEDS: Vancomycin 1250mg/D5W 250ml 250 ML IVPB SCH ×2 (06:20→17:09)
[2018-04-25 08:00] VITALS: BP 132/74
[2018-04-25] MEDS ORDERED: Pantoprazole Inj IV SCH (09:00)
--- NOTE | 2018-04-25 09:14 | Pulmonology Progress Note ---
Assessment/Plan Assessment/Plan IMPRESSION extensive left sided pneumonia (lobar/basilar) respiratory failure hypoxemia chronic encephalopathy aspiration pneumonia GT reduced LOC PLAN continue same and monitor cxr -repeat in am follow up cultures IV antibiotics reviewed suction PRN aspiration precautions as is monitor fluid status feeds; elevate head DVT prophylaxis as is feeds as tolerate impression, plan, and exam edited and reviewed in detail care discussed with RN Subjective ROS Limited/Unobtainable: Yes Allergies: Coded Allergies: No Known Allergies (Unverified , 12/22/17) Subjective calm and comfortable minimal congestion no distress overall on oxygen and feeds Objective Last 24 Hour Vital Signs Date Time Temp Pulse Resp B/P (MAP) Pulse Ox O2 Delivery O2 Flow Rate FiO2 04/25/18 04:00 97.7 111 20 122/73 97 Nasal Cannula 1.0 97.7 04/25/18 03:50 110 04/25/18 00:48 97.7 123 20 136/88 96 Nasal Cannula 1.0 97.7 04/24/18 23:51 104 04/24/18 19:48 98.2 101 20 124/76 97 Nasal Cannula 1.0 98.2 04/24/18 19:36 Nasal Cannula 1.0 24 04/24/18 19:36 98 Nasal Cannula 1.0 24 04/24/18 19:35 84 18 Room Air 1.0 24 04/24/18 19:18 108 04/24/18 16:00 105 04/24/18 16:00 98.4 107 24 120/78 97 Nasal Cannula 1.0 98.4 04/24/18 12:00 98.2 104 24 127/76 97 Nasal Cannula 1.0 98.2 04/24/18 12:00 102 Intake and Output 04/24/18 04/25/18 19:00 07:00 Intake Total 1180 ml 1541.2 ml Output Total 1002 ml Balance 178 ml 1541.2 ml Free Water 400 ml 400 ml IV Total 621.2 ml Tube Feeding 780 ml 520 ml Output Urine Total 1000 ml Stool Total 2 ml # Voids 5 # Bowel Movements 2 3 Objective WDWN NAD moderate breath sounds bilaterally- minimal rhonchi [id number] without MRG NABS nontender no HSM no CCE GT confused; reduced ROM nonfocal Laboratory Tests 04/25/18 06:56: Prothrombin Time 31.7H, Prothromb Time International Ratio 3.0H Current Medications Medications (Trade) Dose Ordered Sig/Mckenzie Route PRN Reason Start Time Stop Time Status Last Admin Dose Admin Acetaminophen (Tylenol) 650 mg Q4H PRN ORAL Mild Pain (Pain Scale 1-3) 04/24/18 21:00 05/17/18 20:59 Dextrose (Dextrose 50%) 25 ml STAT PRN IV Hypoglycemia 04/24/18 21:00 05/17/18 20:59 Dextrose (Dextrose 50%) 50 ml STAT PRN IV Hypoglycemia 04/24/18 21:00 05/17/18 20:59 Pantoprazole (Protonix) 40 mg DAILY IV 04/25/18 09:00 05/18/18 08:59 04/25/18 09:04 Piperacillin Sod/ Tazobactam Sod 3.375 gm/Sodium Chloride 110 ml @ 27.5 mls/hr Q8HR@0200,1000,1800 IVPB 04/25/18 02:00 05/01/18 01:59 04/25/18 02:07 Sodium 1,000 ml @ 50 mls/hr Q20H IV 04/24/18 20:30 05/17/18 20:29 04/24/18 22:52 Vancomycin HCl (Vanco rx to dose) 1 ea DAILY PRN MISC Per rx protocol 04/25/18 09:00 05/17/18 20:59 Vancomycin HCl/ Dextrose 250 ml @ 166.667 mls/hr Q12H IVPB 04/25/18 06:00 04/28/18 23:59 04/25/18 06:20 Warfarin Sodium (Coumadin per pharmacy) 1 ea DAILY PRN MISC Per rx protocol 04/25/18 09:00 05/18/18 10:14 Tim Andrade MD April 25, 2018 09:14
[2018-04-25 12:00] VITALS: BP 142/73
[2018-04-25 14:58] LABS: CREATININE 0.6 MG/DL (0.55-1.30)
[2018-04-25 16:00] VITALS: BP 129/80
[2018-04-25] MEDS: 1/2NS w/KCl 20mEq 1000ml 1,000 ML IV SCH (16:29)
[2018-04-25] MEDS ORDERED: Warfarin Sodium 5mg ORAL SCH (17:00)
--- NOTE | 2018-04-25 17:29 | General Progress Note ---
Assessment/Plan Assessment/Plan Aspiration Pneumonia - IV Abx On Coumadin per Pharmacy due to h/o DVT. INR therapeutic. Repeat CXR improved. To [facility]m. Subjective Allergies: Coded Allergies: No Known Allergies (Unverified , 12/22/17) Subjective Less SOB. Much more alert. Objective Last 24 Hour Vital Signs Date Time Temp Pulse Resp B/P (MAP) Pulse Ox O2 Delivery O2 Flow Rate FiO2 04/25/18 16:00 98.4 100 20 129/80 99 Nasal Cannula 1.0 98.4 04/25/18 12:00 94 04/25/18 12:00 97.9 101 20 142/73 100 Nasal Cannula 1.0 97.9 04/25/18 08:00 103 04/25/18 08:00 98.2 101 20 132/74 100 Nasal Cannula 1.0 98.2 04/25/18 04:00 97.7 111 20 122/73 97 Nasal Cannula 1.0 97.7 04/25/18 03:50 110 04/25/18 00:48 97.7 123 20 136/88 96 Nasal Cannula 1.0 97.7 04/24/18 23:51 104 04/24/18 19:48 98.2 101 20 124/76 97 Nasal Cannula 1.0 98.2 04/24/18 19:36 Nasal Cannula 1.0 24 04/24/18 19:36 98 Nasal Cannula 1.0 24 04/24/18 19:35 84 18 Room Air 1.0 24 04/24/18 19:18 108 Intake and Output 04/24/18 04/25/18 19:00 07:00 Intake Total 1180 ml 1541.2 ml Output Total 1002 ml Balance 178 ml 1541.2 ml Free Water 400 ml 400 ml IV Total 621.2 ml Tube Feeding 780 ml 520 ml Output Urine Total 1000 ml Stool Total 2 ml # Voids 5 # Bowel Movements 2 3 Laboratory Tests 04/25/18 06:56: Prothrombin Time 31.7H, Prothromb Time International Ratio 3.0H, Creatinine 0.6 , Estimat Glomerular Filtration Rate Height (Feet): 5 Height (Inches): 5.00 Weight (Pounds): 130 Objective CV RR Lungs B Ronchi Abd SNT. BS + E No CCE Ervin Mario MD April 25, 2018 17:29
[2018-04-25 20:00] VITALS: BP 132/82
[2018-04-26] VITALS: BP 145/75
[2018-04-26] MEDS: Piperacillin/Tazobactam 3.375 GM in NS 110 ML IVPB SCH ×3 (02:08→17:31)
[2018-04-26 04:00] VITALS: BP 152/86
[2018-04-26] MEDS: Vancomycin 1250mg/D5W 250ml 250 ML IVPB SCH ×2 (05:30→17:31)
[2018-04-26 07:54] LABS: BASOPHILS % (AUTO) 0.5 % (0.0-2.0); EOSINOPHILS % (AUTO) 2.7 % (0.0-3.0); HEMATOCRIT 35.3 % (42.0-52.0); HEMOGLOBIN 11.5 G/DL (14.2-18.0); LYMPHOCYTES % (AUTO) 9.5 % (20.0-45.0); MEAN CORPUSCULAR VOLUME 80 FL (80-99); MONOCYTES % (AUTO) 6.8 % (1.0-10.0); NEUTROPHILS % (AUTO) 80.4 % (45.0-75.0); PLATELET COUNT 283 K/UL (150-450); RED BLOOD COUNT 4.39 M/UL (4.70-6.10); RED CELL DISTRIBUTION WIDTH 15.3 % (11.6-14.8); WHITE BLOOD COUNT 10.4 K/UL (4.8-10.8)
[2018-04-26 08:00] VITALS: BP 132/70
[2018-04-26 08:00] LABS: INR 2.5 (0.9-1.1)
[2018-04-26 08:09] LABS: ANION GAP 7 mmol/L (5-15); BLOOD UREA NITROGEN 7 mg/dL (7-18); CALCIUM 7.7 MG/DL (8.5-10.1); CARBON DIOXIDE 24 MMOL/L (21-32); CHLORIDE 105 MMOL/L (98-107); CREATININE 0.6 MG/DL (0.55-1.30); POTASSIUM 3.9 MMOL/L (3.5-5.1); SODIUM 136 MMOL/L (136-145)
--- NOTE | 2018-04-26 08:33 | Pulmonology Progress Note ---
Assessment/Plan Assessment/Plan IMPRESSION extensive left sided pneumonia (lobar/basilar) respiratory failure hypoxemia chronic encephalopathy aspiration pneumonia GT reduced LOC PLAN continue same and monitor cxr -repeat pending follow up cultures IV antibiotics reviewed suction PRN labs stable aspiration precautions as is monitor fluid status feeds; elevate head DVT prophylaxis as is feeds as tolerate dc planning impression, plan, and exam edited and reviewed in detail care discussed with RN Subjective ROS Limited/Unobtainable: Yes Allergies: Coded Allergies: No Known Allergies (Unverified , 12/22/17) Subjective calm and comfortable improving congestion no distress overall on oxygen and feeds Objective Last 24 Hour Vital Signs Date Time Temp Pulse Resp B/P (MAP) Pulse Ox O2 Delivery O2 Flow Rate FiO2 04/26/18 04:00 97.5 63 20 152/86 92 Nasal Cannula 1.0 97.5 04/26/18 03:53 92 04/26/18 00:00 93 04/26/18 00:00 97.0 96 20 145/75 96 Nasal Cannula 1.0 97.0 04/25/18 20:00 94 04/25/18 20:00 98.1 99 20 132/82 95 Nasal Cannula 1.0 98.1 04/25/18 18:27 Nasal Cannula 1.0 24 04/25/18 18:27 100 Nasal Cannula 1.0 24 04/25/18 18:26 97 24 Nasal Cannula 1.0 24 04/25/18 16:00 95 04/25/18 16:00 98.4 100 20 129/80 99 Nasal Cannula 1.0 98.4 04/25/18 12:00 94 04/25/18 12:00 97.9 101 20 142/73 100 Nasal Cannula 1.0 97.9 Intake and Output 04/25/18 04/26/18 19:00 07:00 Intake Total 1049.300 ml 1190.0 ml Output Total 1200 ml Balance -150.700 ml 1190.0 ml Free Water 400 ml IV Total 1049.300 ml 530.0 ml Tube Feeding 260 ml Output Urine Total 1200 ml # Bowel Movements 2 1 Objective WDWN NAD moderate breath sounds bilaterally- occasional rhonchi [id number] without MRG NABS nontender no HSM no CCE GT confused; reduced ROM nonfocal Laboratory Tests 04/26/18 07:30: White Blood Count 10.4, Red Blood Count 4.39L, Hemoglobin 11.5L, Hematocrit 35.3L, Mean Corpuscular Volume 80, Mean Corpuscular Hemoglobin 26.3L, Mean Corpuscular Hemoglobin Concent 32.6, Red Cell Distribution Width 15.3H, Platelet Count 283, Mean Platelet Volume 6.8, Neutrophils (%) (Auto) 80.4H, Lymphocytes (%) (Auto) 9.5L, Monocytes (%) (Auto) 6.8, Eosinophils (%) (Auto) 2.7, Basophils (%) (Auto) 0.5, Prothrombin Time 26.2H, Prothromb Time International Ratio 2.5H, Sodium Level 136, Potassium Level 3.9, Chloride Level 105, Carbon Dioxide Level 24, Anion Gap 7, Blood Urea Nitrogen 7, Creatinine 0.6 , Estimat Glomerular Filtration Rate , Glucose Level 134H, Calcium Level 7.7L Current Medications Medications (Trade) Dose Ordered Sig/Mckenzie Route PRN Reason Start Time Stop Time Status Last Admin Dose Admin Acetaminophen (Tylenol) 650 mg Q4H PRN ORAL Mild Pain (Pain Scale 1-3) 04/24/18 21:00 05/17/18 20:59 Dextrose (Dextrose 50%) 25 ml STAT PRN IV Hypoglycemia 04/24/18 21:00 05/17/18 20:59 Dextrose (Dextrose 50%) 50 ml STAT PRN IV Hypoglycemia 04/24/18 21:00 05/17/18 20:59 Pantoprazole (Protonix) 40 mg DAILY ORAL 04/26/18 09:00 05/26/18 08:59 Piperacillin Sod/ Tazobactam Sod 3.375 gm/Sodium Chloride 110 ml @ 27.5 mls/hr Q8HR@0200,1000,1800 IVPB 04/25/18 02:00 05/01/18 01:59 04/26/18 02:08 Sodium 1,000 ml @ 50 mls/hr Q20H IV 04/24/18 20:30 05/17/18 20:29 04/25/18 16:29 Vancomycin HCl (Vanco rx to dose) 1 ea DAILY PRN MISC Per rx protocol 04/25/18 09:00 05/17/18 20:59 Vancomycin HCl/ Dextrose 250 ml @ 166.667 mls/hr Q12H IVPB 04/25/18 06:00 04/28/18 23:59 04/26/18 05:30 Warfarin Sodium (Coumadin per pharmacy) 1 ea DAILY PRN MISC Per rx protocol 04/25/18 09:00 05/18/18 10:14 Warfarin Sodium (Coumadin) 5 mg COUMADIN ONCE ORAL 04/26/18 17:00 04/26/18 17:01 Tim Andrade MD April 26, 2018 08:33
[2018-04-26 12:00] VITALS: BP 127/84
[2018-04-26] MEDS: 1/2NS w/KCl 20mEq 1000ml 1,000 ML IV SCH (12:57)
[2018-04-26 16:00] VITALS: BP 129/92
--- NOTE | 2018-04-26 16:32 | General Progress Note ---
Assessment/Plan Assessment/Plan Aspiration Pneumonia - IV Abx On Coumadin per Pharmacy due to h/o DVT. INR therapeutic. Repeat CXR improved. To [facility]m. V Tach - Cardiology to advise. Subjective Allergies: Coded Allergies: No Known Allergies (Unverified , 12/22/17) Subjective Less SOB. Much more alert. Objective Last 24 Hour Vital Signs Date Time Temp Pulse Resp B/P (MAP) Pulse Ox O2 Delivery O2 Flow Rate FiO2 04/26/18 12:00 97.9 93 20 127/84 100 Nasal Cannula 1.0 97.9 04/26/18 08:00 90 04/26/18 08:00 98.0 89 20 132/70 97 Nasal Cannula 1.0 98.0 04/26/18 04:00 97.5 63 20 152/86 92 Nasal Cannula 1.0 97.5 04/26/18 03:53 92 04/26/18 00:00 93 04/26/18 00:00 97.0 96 20 145/75 96 Nasal Cannula 1.0 97.0 04/25/18 20:00 94 04/25/18 20:00 98.1 99 20 132/82 95 Nasal Cannula 1.0 98.1 04/25/18 18:27 Nasal Cannula 1.0 24 04/25/18 18:27 100 Nasal Cannula 1.0 24 04/25/18 18:26 97 24 Nasal Cannula 1.0 24 Intake and Output 04/25/18 04/26/18 19:00 07:00 Intake Total 1049.300 ml 1190.0 ml Output Total 1200 ml Balance -150.700 ml 1190.0 ml Free Water 400 ml IV Total 1049.300 ml 530.0 ml Tube Feeding 260 ml Output Urine Total 1200 ml # Bowel Movements 2 1 Laboratory Tests 04/26/18 07:30: White Blood Count 10.4, Red Blood Count 4.39L, Hemoglobin 11.5L, Hematocrit 35.3L, Mean Corpuscular Volume 80, Mean Corpuscular Hemoglobin 26.3L, Mean Corpuscular Hemoglobin Concent 32.6, Red Cell Distribution Width 15.3H, Platelet Count 283, Mean Platelet Volume 6.8, Neutrophils (%) (Auto) 80.4H, Lymphocytes (%) (Auto) 9.5L, Monocytes (%) (Auto) 6.8, Eosinophils (%) (Auto) 2.7, Basophils (%) (Auto) 0.5, Prothrombin Time 26.2H, Prothromb Time International Ratio 2.5H, Sodium Level 136, Potassium Level 3.9, Chloride Level 105, Carbon Dioxide Level 24, Anion Gap 7, Blood Urea Nitrogen 7, Creatinine 0.6 , Estimat Glomerular Filtration Rate , Glucose Level 134H, Calcium Level 7.7L Height (Feet): 5 Height (Inches): 5.00 Weight (Pounds): 130 Objective Monitor - episode of Vtach CV RR Lungs B Derianchi Christian SNT. BS + E No CCE Ervin Mario MD April 26, 2018 16:32
[2018-04-26] MEDS ORDERED: Warfarin Sodium 5mg ORAL ONE (17:00)
[2018-04-26 20:00] VITALS: BP 145/74
--- NOTE | 2018-04-26 22:28 | Cardiology Progress Note ---
Subjective Subjective [id number] The patient had two episodes of non sustained v tach, 5 beats twice. His Echo recently done at [facility] revealed EF 50%. Will check Mg level and add low dose of b -blcokers, Thank you Objective Last 24 Hour Vital Signs Date Time Temp Pulse Resp B/P (MAP) Pulse Ox O2 Delivery O2 Flow Rate FiO2 04/26/18 20:10 Nasal Cannula 1.0 24 04/26/18 20:10 98 Nasal Cannula 1.0 24 04/26/18 20:00 97.1 96 20 145/74 98 Nasal Cannula 1.0 97.1 04/26/18 20:00 92 04/26/18 16:00 98.2 91 20 129/92 100 Nasal Cannula 1.0 98.2 04/26/18 16:00 90 04/26/18 12:00 91 04/26/18 12:00 97.9 93 20 127/84 100 Nasal Cannula 1.0 97.9 04/26/18 08:00 90 04/26/18 08:00 98.0 89 20 132/70 97 Nasal Cannula 1.0 98.0 04/26/18 04:00 97.5 63 20 152/86 92 Nasal Cannula 1.0 97.5 04/26/18 03:53 92 04/26/18 00:00 93 04/26/18 00:00 97.0 96 20 145/75 96 Nasal Cannula 1.0 97.0 Intake and Output 04/25/18 04/26/18 19:00 07:00 Intake Total 1049.300 ml 1190.0 ml Output Total 1200 ml Balance -150.700 ml 1190.0 ml Free Water 400 ml IV Total 1049.300 ml 530.0 ml Tube Feeding 260 ml Output Urine Total 1200 ml # Bowel Movements 2 1 Laboratory Tests Test 04/26/18 07:30 White Blood Count 10.4 K/UL (4.8-10.8) Red Blood Count 4.39 M/UL (4.70-6.10) L Hemoglobin 11.5 G/DL (14.2-18.0) L Hematocrit 35.3 % (42.0-52.0) L Mean Corpuscular Volume 80 FL (80-99) Mean Corpuscular Hemoglobin 26.3 PG (27.0-31.0) L Mean Corpuscular Hemoglobin Concent 32.6 G/DL (32.0-36.0) Red Cell Distribution Width 15.3 % (11.6-14.8) H Platelet Count 283 K/UL (150-450) Mean Platelet Volume 6.8 FL (6.5-10.1) Neutrophils (%) (Auto) 80.4 % (45.0-75.0) H Lymphocytes (%) (Auto) 9.5 % (20.0-45.0) L Monocytes (%) (Auto) 6.8 % (1.0-10.0) Eosinophils (%) (Auto) 2.7 % (0.0-3.0) Basophils (%) (Auto) 0.5 % (0.0-2.0) Prothrombin Time 26.2 SEC (9.30-11.50) H Prothromb Time International Ratio 2.5 (0.9-1.1) H Sodium Level 136 MMOL/L (136-145) Potassium Level 3.9 MMOL/L (3.5-5.1) Chloride Level 105 MMOL/L (98-107) Carbon Dioxide Level 24 MMOL/L (21-32) Anion Gap 7 mmol/L (5-15) Blood Urea Nitrogen 7 mg/dL (7-18) Creatinine 0.6 MG/DL (0.55-1.30) Estimat Glomerular Filtration Rate mL/min (>60) Glucose Level 134 MG/DL (74-106) H Calcium Level 7.7 MG/DL (8.5-10.1) L Magnesium Level 2.0 MG/DL (1.8-2.4) Sally Doty MD April 26, 2018 22:28
[2018-04-26] MEDS: Metoprolol Tartrate 12.5mg TAB ORAL SCH (23:09)
[2018-04-27] VITALS: BP 137/69
[2018-04-27] MEDS: Piperacillin/Tazobactam 3.375 GM in NS 110 ML IVPB SCH ×3 (02:50→17:52)
[2018-04-27 04:00] VITALS: BP 142/79
[2018-04-27 06:02] LABS: INR 2.4 (0.9-1.1)
--- NOTE | 2018-04-27 06:16 | Consultation ---
DATE OF CONSULTATION: 04/26/2018 CARDIOLOGY CONSULTATION CONSULTING PHYSICIAN: Sally Doty M.D. REFERRING PHYSICIAN: Ervin Mario M.D. REASON FOR EVALUATION: Ventricular tachycardia. HISTORY OF PRESENT ILLNESS: The patient was admitted with acute respiratory distress. The admission was on 04/17/2018. He is treated for left lower lobe pneumonia and today on the monitor, there were noted that he had two episodes of nonsustained ventricular tachycardia, total number of 5 and the rate approximately 170 beats per minute, otherwise the patient is in sinus rhythm. The patient is nonverbal. He is a intermediate resident. The patient is demented and he is not able to give any history. His. PAST MEDICAL HISTORY: Significant for deep vein thrombosis, he is on Coumadin. He has a G tube, contractures, psychosis, dementia, chronic obstructive pulmonary disease, and recurrent pneumonia. MEDICATIONS: At present time include Zosyn, intravenous fluids, vancomycin, Tylenol, Protonix, and Coumadin. HABITS: Unknown. ALLERGIES: Unknown. Documented as no known allergies. REVIEW OF SYSTEMS: The patient is bedridden. He is incontinent. He has a G tube. He is cachectic. He is nonverbal, unable to give review of systems. PHYSICAL EXAMINATION: GENERAL: This is elderly male, lying in bed. VITAL SIGNS: His blood pressure is 140/70, his heart rate is 90, his temperature is normal, and oxygen saturation on 1 liter is 98%. HEENT: PERRLA. EOMI. NECK: Neck veins are not distended. He has brisk carotid upstrokes bilaterally. Neck is very stiff. LUNGS: He has posterior crackles more on the left. HEART: Regular with accentuated A2. ABDOMEN: Soft. G-tube present. EXTREMITIES: Lower extremity contracted. rash and no dependent edema. LABORATORY AND DIAGNOSTIC DATA: His laboratory data reviewed. White count 10.4, hemoglobin 11.5, and platelets 283. His lactic acid was 3.9 upon admission. His chest x-ray shows left lower lobe infiltrate. His INR is 2.5 and his urinalysis is noted. His ECG shows possible inferior infarct. I also reviewed his records from [facility]. He was there in December 2017 also for bilateral pneumonia and at that time the echocardiogram was done, which revealed ejection fraction of 50% with diastolic dysfunction, otherwise there was no any significant abnormality. There was no evidence of wall motion abnormality. There was no evidence of pulmonary hypertension. 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 Now reviewing his tracing, again the patient had evidence of on the rhythm strip, sinus tachycardia, sinus rhythm with short runs of VT, which were nonsustained. RECOMMENDATION: Based on that, he has preserved left ventricular ejection fraction and also for the reason that the patient is very ill, weak, bedridden, and probably to me any aggressive measures should be undertaken, I am going to give him a very low dose of metoprolol 12.5 mg twice a day and monitor his heart rate and his blood pressure. I am not going to repeat his echo, which was done in December because I believe that resolve did not change since the previous time. Thank you very much for your consultation. Sally Doty M.D. DR: OLEGARIO JOB#: [id number] CC:
[2018-04-27] MEDS: Vancomycin 1250mg/D5W 250ml 250 ML IVPB SCH ×2 (07:05→19:14)
[2018-04-27 08:00] VITALS: BP 157/88
--- NOTE | 2018-04-27 08:09 | Pulmonology Progress Note ---
Assessment/Plan Assessment/Plan IMPRESSION extensive left sided pneumonia (lobar/basilar) respiratory failure hypoxemia chronic encephalopathy aspiration pneumonia GT reduced LOC PLAN dc iv fluids continue same and monitor cxr -monitor follow up cultures IV antibiotics reviewed suction PRN labs stable aspiration precautions as is monitor fluid status feeds; elevate head DVT prophylaxis as is feeds as tolerate dc planning labs reviewed impression, plan, and exam edited and reviewed in detail care discussed with RN Subjective ROS Limited/Unobtainable: Yes Allergies: Coded Allergies: No Known Allergies (Unverified , 12/22/17) Subjective no distress no congestion on oxygen and feeds Objective Last 24 Hour Vital Signs Date Time Temp Pulse Resp B/P (MAP) Pulse Ox O2 Delivery O2 Flow Rate FiO2 04/27/18 04:00 90 04/27/18 04:00 97.7 95 20 142/79 100 Nasal Cannula 1.0 97.7 04/27/18 00:00 97.5 98 20 137/69 98 Nasal Cannula 1.0 97.5 04/27/18 00:00 92 04/26/18 23:09 92 145/74 04/26/18 20:10 Nasal Cannula 1.0 24 04/26/18 20:10 98 Nasal Cannula 1.0 24 04/26/18 20:00 97.1 96 20 145/74 98 Nasal Cannula 1.0 97.1 04/26/18 20:00 92 04/26/18 16:00 98.2 91 20 129/92 100 Nasal Cannula 1.0 98.2 04/26/18 16:00 90 04/26/18 12:00 91 04/26/18 12:00 97.9 93 20 127/84 100 Nasal Cannula 1.0 97.9 Intake and Output 04/26/18 04/27/18 19:00 07:00 Intake Total 769.634 ml 2060.867 ml Output Total 1800 ml 1000 ml Balance -1030.366 ml 1060.867 ml Free Water 400 ml IV Total 704.634 ml 945.867 ml Tube Feeding 65 ml 715 ml Output Urine Total 1800 ml 1000 ml # Bowel Movements 1 1 Objective WDWN NAD moderate breath sounds bilaterally- without wheeze or rhonchi [id number] without MRG NABS nontender no HSM no CCE GT confused; reduced ROM nonfocal reviewed Laboratory Tests 04/27/18 05:25: Prothrombin Time 25.9H, Prothromb Time International Ratio 2.4H Current Medications Medications (Trade) Dose Ordered Sig/Mckenzie Route PRN Reason Start Time Stop Time Status Last Admin Dose Admin Acetaminophen (Tylenol) 650 mg Q4H PRN ORAL Mild Pain (Pain Scale 1-3) 04/24/18 21:00 05/17/18 20:59 Dextrose (Dextrose 50%) 25 ml STAT PRN IV Hypoglycemia 04/24/18 21:00 05/17/18 20:59 Dextrose (Dextrose 50%) 50 ml STAT PRN IV Hypoglycemia 04/24/18 21:00 05/17/18 20:59 Metoprolol Tartrate (Lopressor) 12.5 mg Q12HR ORAL 04/26/18 22:30 05/26/18 22:29 04/26/18 23:09 Pantoprazole (Protonix) 40 mg DAILY ORAL 04/26/18 09:00 05/26/18 08:59 04/26/18 08:42 Piperacillin Sod/ Tazobactam Sod 3.375 gm/Sodium Chloride 110 ml @ 27.5 mls/hr Q8HR@0200,1000,1800 IVPB 04/25/18 02:00 05/01/18 01:59 04/27/18 02:50 Sodium 1,000 ml @ 50 mls/hr Q20H IV 04/24/18 20:30 05/17/18 20:29 04/26/18 12:57 Vancomycin HCl (Vanco rx to dose) 1 ea DAILY PRN MISC Per rx protocol 04/25/18 09:00 05/17/18 20:59 Vancomycin HCl/ Dextrose 250 ml @ 166.667 mls/hr Q12H IVPB 04/25/18 06:00 04/28/18 23:59 04/27/18 07:05 Warfarin Sodium (Coumadin per pharmacy) 1 ea DAILY PRN MISC Per rx protocol 04/25/18 09:00 05/18/18 10:14 Warfarin Sodium (Coumadin) 6 mg COUMADIN ORAL 04/27/18 17:00 04/27/18 18:00 Tim Andrade MD Apr 27, 2018 08:09
[2018-04-27] MEDS: Metoprolol Tartrate 12.5mg TAB ORAL SCH ×2 (09:06→20:28)
[2018-04-27 12:00] VITALS: BP 144/82
--- NOTE | 2018-04-27 13:45 | General Progress Note ---
Assessment/Plan Assessment/Plan Aspiration Pneumonia - IV Abx On Coumadin per Pharmacy due to h/o DVT. INR therapeutic. Repeat CXR improved. To [facility] Pulm. V Tach - Cardiologynoted. DC to SNF. Subjective Allergies: Coded Allergies: No Known Allergies (Unverified , 12/22/17) Subjective Less SOB. Much more alert. Objective Last 24 Hour Vital Signs Date Time Temp Pulse Resp B/P (MAP) Pulse Ox O2 Delivery O2 Flow Rate FiO2 04/27/18 12:00 97.7 92 19 144/82 100 Nasal Cannula 1.0 97.7 04/27/18 12:00 90 04/27/18 09:06 98 157/88 04/27/18 08:04 Nasal Cannula 1.0 24 04/27/18 08:04 98 Nasal Cannula 1.0 24 04/27/18 08:00 97.7 98 18 157/88 100 Nasal Cannula 1.0 97.7 04/27/18 08:00 91 04/27/18 04:00 90 04/27/18 04:00 97.7 95 20 142/79 100 Nasal Cannula 1.0 97.7 04/27/18 00:00 97.5 98 20 137/69 98 Nasal Cannula 1.0 97.5 04/27/18 00:00 92 04/26/18 23:09 92 145/74 04/26/18 20:10 Nasal Cannula 1.0 24 04/26/18 20:10 98 Nasal Cannula 1.0 24 04/26/18 20:00 97.1 96 20 145/74 98 Nasal Cannula 1.0 97.1 04/26/18 20:00 92 04/26/18 16:00 98.2 91 20 129/92 100 Nasal Cannula 1.0 98.2 04/26/18 16:00 90 Intake and Output 04/26/18 04/27/18 19:00 07:00 Intake Total 769.634 ml 2060.867 ml Output Total 1800 ml 1000 ml Balance -1030.366 ml 1060.867 ml Free Water 400 ml IV Total 704.634 ml 945.867 ml Tube Feeding 65 ml 715 ml Output Urine Total 1800 ml 1000 ml # Bowel Movements 1 1 Laboratory Tests 04/27/18 05:25: Prothrombin Time 25.9H, Prothromb Time International Ratio 2.4H Height (Feet): 5 Height (Inches): 5.00 Weight (Pounds): 130 Objective Monitor - episode of Vtach CV RR Lungs B Alana Gonzales SNT. BS + E No CCE Ervin Mario MD Apr 27, 2018 13:45
[2018-04-27] MEDS ORDERED: LOPRESSOR25 M1 ORAL (13:47)
[2018-04-27] MEDS ORDERED: PROTONIX40 MG ORAL (13:47)
[2018-04-27] MEDS ORDERED: ACETAMINOPHEN325 M1 ORAL (13:47)
[2018-04-27] MEDS ORDERED: Warfarin per pharmacy MISC (13:47)
[2018-04-27] MEDS ORDERED: COUMADIN3 MG ORAL (13:47)
[2018-04-27 16:00] VITALS: BP 149/73
[2018-04-27] MEDS ORDERED: Warfarin Sodium 3mg ORAL SCH (17:00)
[2018-04-27 19:53] VITALS: BP 144/75
[2018-04-28] VITALS: BP 136/75
[2018-04-28] MEDS: Piperacillin/Tazobactam 3.375 GM in NS 110 ML IVPB SCH ×3 (02:04→18:00)
[2018-04-28 04:00] VITALS: BP 120/75
[2018-04-28] MEDS: Vancomycin 1250mg/D5W 250ml 250 ML IVPB SCH ×2 (06:00→17:11)
[2018-04-28 08:00] VITALS: BP 129/100
[2018-04-28] MEDS: Metoprolol Tartrate 12.5mg TAB ORAL SCH ×2 (10:19→21:37)
--- NOTE | 2018-04-28 11:24 | General Progress Note ---
Assessment/Plan Assessment/Plan Aspiration Pneumonia - IV Abx On Coumadin per Pharmacy due to h/o DVT. INR therapeutic. Repeat CXR improved. To [facility]. V Tach - Cardiologynoted. DC to SNF on hold. TF resumed slowly 10 cc/hr. Subjective Allergies: Coded Allergies: No Known Allergies (Unverified , 12/22/17) Subjective High gastric residuals. TF on hold! Objective Last 24 Hour Vital Signs Date Time Temp Pulse Resp B/P (MAP) Pulse Ox O2 Delivery O2 Flow Rate FiO2 04/28/18 10:19 97 129/100 04/28/18 08:00 97.3 97 20 129/100 98 Nasal Cannula 1.0 97.3 04/28/18 04:00 98.7 96 20 120/75 97 Nasal Cannula 1.0 98.7 04/28/18 04:00 96 04/28/18 00:00 90 04/28/18 00:00 97.9 91 20 136/75 97 Nasal Cannula 1.0 97.9 04/27/18 20:28 102 144/75 04/27/18 20:00 101 04/27/18 19:53 98.7 102 20 144/75 97 Nasal Cannula 1.0 98.7 04/27/18 19:30 98 Nasal Cannula 2.0 28 04/27/18 19:30 Nasal Cannula 2.0 28 04/27/18 16:00 89 04/27/18 16:00 97.7 99 19 149/73 97 Nasal Cannula 1.0 97.7 04/27/18 12:00 97.7 92 19 144/82 100 Nasal Cannula 1.0 97.7 04/27/18 12:00 90 Intake and Output 04/27/18 04/28/18 19:00 07:00 Output Total 1200 ml 600 ml Balance -1200 ml -600 ml Output Urine Total 1200 ml 600 ml # Bowel Movements 1 1 Laboratory Tests 04/27/18 17:15: Vancomycin Level Trough 20.0H Height (Feet): 5 Height (Inches): 5.00 Weight (Pounds): 130 Objective Monitor - episode of Vtach CV RR Lungs B Ronchi Abd SNT. BS + E No CCE Ervin Mario MD Apr 28, 2018 11:24
[2018-04-28 11:50] LABS: INR 2.1 (0.9-1.1)
[2018-04-28 12:00] VITALS: BP 150/84
--- NOTE | 2018-04-28 13:11 | Pulmonology Progress Note ---
Assessment/Plan Assessment/Plan IMPRESSION extensive left sided pneumonia (lobar/basilar) respiratory failure hypoxemia chronic encephalopathy aspiration pneumonia GT reduced LOC PLAN continue same and monitor for change cxr -monitor follow up cultures for change IV antibiotics reviewed suction PRN labs stable aspiration precautions as is feeds tolerated; elevate head DVT prophylaxis as is feeds as tolerate dc planning labs reviewed impression, plan, and exam edited and reviewed in detail care discussed with RN Subjective ROS Limited/Unobtainable: Yes Allergies: Coded Allergies: No Known Allergies (Unverified , 12/22/17) Subjective no distress no significant congestion on oxygen and feeds Objective Last 24 Hour Vital Signs Date Time Temp Pulse Resp B/P (MAP) Pulse Ox O2 Delivery O2 Flow Rate FiO2 04/28/18 12:00 97.3 94 20 150/84 97 Nasal Cannula 1.0 97.3 04/28/18 12:00 88 04/28/18 10:19 97 129/100 04/28/18 08:00 97.3 97 20 129/100 98 Nasal Cannula 1.0 97.3 04/28/18 08:00 96 04/28/18 04:00 98.7 96 20 120/75 97 Nasal Cannula 1.0 98.7 04/28/18 04:00 96 04/28/18 00:00 90 04/28/18 00:00 97.9 91 20 136/75 97 Nasal Cannula 1.0 97.9 04/27/18 20:28 102 144/75 04/27/18 20:00 101 04/27/18 19:53 98.7 102 20 144/75 97 Nasal Cannula 1.0 98.7 04/27/18 19:30 98 Nasal Cannula 2.0 28 04/27/18 19:30 Nasal Cannula 2.0 28 04/27/18 16:00 89 04/27/18 16:00 97.7 99 19 149/73 97 Nasal Cannula 1.0 97.7 Intake and Output 04/27/18 04/28/18 19:00 07:00 Output Total 1200 ml 600 ml Balance -1200 ml -600 ml Output Urine Total 1200 ml 600 ml # Bowel Movements 1 1 Objective WDWN NAD moderate breath sounds bilaterally- without wheeze or rhonchi [id number] without MRG NABS nontender no HSM no CCE GT confused; reduced ROM nonfocal reviewed Laboratory Tests 04/27/18 17:15: Vancomycin Level Trough 20.0H 04/28/18 11:10: Prothrombin Time 22.3H, Prothromb Time International Ratio 2.1H Current Medications Medications (Trade) Dose Ordered Sig/Mckenzie Route PRN Reason Start Time Stop Time Status Last Admin Dose Admin Acetaminophen (Tylenol) 650 mg Q4H PRN ORAL Mild Pain (Pain Scale 1-3) 04/24/18 21:00 05/17/18 20:59 Dextrose (Dextrose 50%) 25 ml STAT PRN IV Hypoglycemia 04/24/18 21:00 05/17/18 20:59 Dextrose (Dextrose 50%) 50 ml STAT PRN IV Hypoglycemia 04/24/18 21:00 05/17/18 20:59 Metoprolol Tartrate (Lopressor) 12.5 mg Q12HR ORAL 04/26/18 22:30 05/26/18 22:29 04/28/18 10:19 Pantoprazole (Protonix) 40 mg DAILY ORAL 04/26/18 09:00 05/26/18 08:59 04/28/18 10:19 Piperacillin Sod/ Tazobactam Sod 3.375 gm/Sodium Chloride 110 ml @ 27.5 mls/hr Q8HR@0200,1000,1800 IVPB 04/25/18 02:00 05/01/18 01:59 04/28/18 10:20 Vancomycin HCl (Vanco rx to dose) 1 ea DAILY PRN MISC Per rx protocol 04/25/18 09:00 05/17/18 20:59 Vancomycin HCl/ Dextrose 250 ml @ 166.667 mls/hr Q12H IVPB 04/25/18 06:00 04/30/18 05:59 04/28/18 06:00 Warfarin Sodium (Coumadin per pharmacy) 1 ea DAILY PRN MISC Per rx protocol 04/25/18 09:00 05/18/18 10:14 Warfarin Sodium (Coumadin) 6 mg COUMADIN ONCE ORAL 04/28/18 17:00 04/28/18 17:01 Tim Andrade MD Apr 28, 2018 13:11
[2018-04-28 15:47] VITALS: BP 128/89
[2018-04-28] MEDS ORDERED: Warfarin Sodium 3mg ORAL ONE (17:00)
--- NOTE | 2018-04-28 17:06 | Cardiology Progress Note ---
Assessment/Plan Assessment/Plan nsvt pneumonia (lobar/basilar) chronic encephalopathy tele reviewed seems to be sinus no further vt / nsvt noted electolytes are ok Subjective ROS Limited/Unobtainable: Yes Objective Last 24 Hour Vital Signs Date Time Temp Pulse Resp B/P (MAP) Pulse Ox O2 Delivery O2 Flow Rate FiO2 04/28/18 15:47 97.8 90 20 128/89 98 Nasal Cannula 1.0 97.8 04/28/18 15:43 90 04/28/18 12:00 97.3 94 20 150/84 97 Nasal Cannula 1.0 97.3 04/28/18 12:00 88 04/28/18 10:19 97 129/100 04/28/18 08:00 97.3 97 20 129/100 98 Nasal Cannula 1.0 97.3 04/28/18 08:00 96 04/28/18 04:00 98.7 96 20 120/75 97 Nasal Cannula 1.0 98.7 04/28/18 04:00 96 04/28/18 00:00 90 04/28/18 00:00 97.9 91 20 136/75 97 Nasal Cannula 1.0 97.9 04/27/18 20:28 102 144/75 04/27/18 20:00 101 04/27/18 19:53 98.7 102 20 144/75 97 Nasal Cannula 1.0 98.7 04/27/18 19:30 98 Nasal Cannula 2.0 28 04/27/18 19:30 Nasal Cannula 2.0 28 General Appearance: no apparent distress Neck: supple Cardiovascular: normal rate Respiratory/Chest: lungs clear Abdomen: normal bowel sounds, non tender, soft Extremities: no swelling, other - contracted Intake and Output 04/27/18 04/28/18 19:00 07:00 Output Total 1200 ml 600 ml Balance -1200 ml -600 ml Output Urine Total 1200 ml 600 ml # Bowel Movements 1 1 Laboratory Tests Test 04/27/18 17:15 04/28/18 11:10 Vancomycin Level Trough 20.0 ug/mL (5.0-12.0) H Prothrombin Time 22.3 SEC (9.30-11.50) H Prothromb Time International Ratio 2.1 (0.9-1.1) H Arnulfo Rodarte MD Apr 28, 2018 17:06
[2018-04-28 20:00] VITALS: BP 148/74
[2018-04-29] VITALS: BP 156/90
[2018-04-29] MEDS: Piperacillin/Tazobactam 3.375 GM in NS 110 ML IVPB SCH ×3 (02:00→17:29)
[2018-04-29 04:00] VITALS: BP 144/92
[2018-04-29] MEDS: Vancomycin 1250mg/D5W 250ml 250 ML IVPB SCH (06:00)
[2018-04-29 08:40] LABS: BASOPHILS % (AUTO) 0.7 % (0.0-2.0); EOSINOPHILS % (AUTO) 1.1 % (0.0-3.0); HEMOGLOBIN 11.6 G/DL (14.2-18.0); LYMPHOCYTES % (AUTO) 11.5 % (20.0-45.0); MEAN CORPUSCULAR VOLUME 81 FL (80-99); MONOCYTES % (AUTO) 9.2 % (1.0-10.0); NEUTROPHILS % (AUTO) 77.6 % (45.0-75.0); PLATELET COUNT 355 K/UL (150-450); RED BLOOD COUNT 4.47 M/UL (4.70-6.10); WHITE BLOOD COUNT 8.9 K/UL (4.8-10.8)
[2018-04-29 08:45] LABS: INR 2.4 (0.9-1.1)
[2018-04-29 09:14] LABS: ANION GAP 8 mmol/L (5-15); BLOOD UREA NITROGEN 14 mg/dL (7-18); CALCIUM 8.5 MG/DL (8.5-10.1); CARBON DIOXIDE 25 MMOL/L (21-32); CHLORIDE 106 MMOL/L (98-107); POTASSIUM 3.5 MMOL/L (3.5-5.1); SODIUM 139 MMOL/L (136-145)
[2018-04-29] MEDS: Metoprolol Tartrate 12.5mg TAB ORAL SCH ×2 (10:28→22:00)
--- NOTE | 2018-04-29 10:28 | General Progress Note ---
Assessment/Plan Assessment/Plan Aspiration Pneumonia - IV Abx On Coumadin per Pharmacy due to h/o DVT. INR therapeutic. Repeat CXR improved. To [facility]. V Tach - Cardiology noted. DC to SNF on hold. TF resumed @ 60 ml/hr. DC planning Subjective Allergies: Coded Allergies: No Known Allergies (Unverified , 12/22/17) Subjective TF @ 60 ml/hr tolerated Objective Last 24 Hour Vital Signs Date Time Temp Pulse Resp B/P (MAP) Pulse Ox O2 Delivery O2 Flow Rate FiO2 04/29/18 04:00 108 04/29/18 04:00 98.6 111 22 144/92 99 Nasal Cannula 1.0 98.6 04/29/18 00:00 105 04/29/18 00:00 97.7 111 20 156/90 100 Nasal Cannula 1.0 97.7 04/28/18 21:37 110 148/74 04/28/18 20:00 107 04/28/18 20:00 97.7 110 22 148/74 98 Nasal Cannula 1.0 97.7 04/28/18 16:45 98 Nasal Cannula 1.0 24 04/28/18 16:45 Nasal Cannula 1.0 24 04/28/18 15:47 97.8 90 20 128/89 98 Nasal Cannula 1.0 97.8 04/28/18 15:43 90 04/28/18 12:00 97.3 94 20 150/84 97 Nasal Cannula 1.0 97.3 04/28/18 12:00 88 Intake and Output 04/28/18 04/29/18 19:00 07:00 Output Total 500 ml 1550 ml Balance -500 ml -1550 ml Output Urine Total 500 ml 1550 ml # Bowel Movements 1 1 Laboratory Tests 04/28/18 11:10: Prothrombin Time 22.3H, Prothromb Time International Ratio 2.1H 04/29/18 07:58: Prothrombin Time 25.4H, Prothromb Time International Ratio 2.4H, White Blood Count 8.9, Red Blood Count 4.47L, Hemoglobin 11.6L, Hematocrit 36.0L, Mean Corpuscular Volume 81, Mean Corpuscular Hemoglobin 26.1L, Mean Corpuscular Hemoglobin Concent 32.4, Red Cell Distribution Width 15.0H, Platelet Count 355, Mean Platelet Volume 6.6, Neutrophils (%) (Auto) 77.6H, Lymphocytes (%) (Auto) 11.5L, Monocytes (%) (Auto) 9.2, Eosinophils (%) (Auto) 1.1, Basophils (%) (Auto ) 0.7, Sodium Level 139, Potassium Level 3.5, Chloride Level 106, Carbon Dioxide Level 25, Anion Gap 8, Blood Urea Nitrogen 14, Creatinine 1.0, Estimat Glomerular Filtration Rate , Glucose Level 165H, Calcium Level 8.5 Height (Feet): 5 Height (Inches): 5.00 Weight (Pounds): 130 Objective Monitor - episode of Vtach CV RR Lungs B Alana Gonzales SNT. BS + E No CCE Ervin Mario MD Apr 29, 2018 10:28
[2018-04-29] MEDS ORDERED: Tubing IV Secondary IV ONE ×2 (10:51→11:09)
[2018-04-29] MEDS ORDERED: NS 275ml ONE ×2 (10:51→11:09)
[2018-04-29] MEDS ORDERED: Sterile Water Irrig 1000ml IRRIG ONE ×2 (10:51→11:09)
[2018-04-29 12:00] VITALS: BP 143/74
--- NOTE | 2018-04-29 12:49 | Cardiology Progress Note ---
Assessment/Plan Assessment/Plan nsvt pneumonia (lobar/basilar) chronic encephalopathy tele reviewed seems to be sinus no further vt / nsvt noted electolytes are ok Subjective ROS Limited/Unobtainable: Yes Objective Last 24 Hour Vital Signs Date Time Temp Pulse Resp B/P (MAP) Pulse Ox O2 Delivery O2 Flow Rate FiO2 04/29/18 12:00 97.5 101 24 143/74 98 97.5 04/29/18 10:28 108 144/92 04/29/18 04:00 108 04/29/18 04:00 98.6 111 22 144/92 99 Nasal Cannula 1.0 98.6 04/29/18 00:00 105 04/29/18 00:00 97.7 111 20 156/90 100 Nasal Cannula 1.0 97.7 04/28/18 21:37 110 148/74 04/28/18 20:00 107 04/28/18 20:00 97.7 110 22 148/74 98 Nasal Cannula 1.0 97.7 04/28/18 16:45 98 Nasal Cannula 1.0 24 04/28/18 16:45 Nasal Cannula 1.0 24 04/28/18 15:47 97.8 90 20 128/89 98 Nasal Cannula 1.0 97.8 04/28/18 15:43 90 General Appearance: no apparent distress Intake and Output 04/28/18 04/29/18 19:00 07:00 Output Total 500 ml 1550 ml Balance -500 ml -1550 ml Output Urine Total 500 ml 1550 ml # Bowel Movements 1 1 Laboratory Tests Test 04/29/18 07:58 White Blood Count 8.9 K/UL (4.8-10.8) Red Blood Count 4.47 M/UL (4.70-6.10) L Hemoglobin 11.6 G/DL (14.2-18.0) L Hematocrit 36.0 % (42.0-52.0) L Mean Corpuscular Volume 81 FL (80-99) Mean Corpuscular Hemoglobin 26.1 PG (27.0-31.0) L Mean Corpuscular Hemoglobin Concent 32.4 G/DL (32.0-36.0) Red Cell Distribution Width 15.0 % (11.6-14.8) H Platelet Count 355 K/UL (150-450) Mean Platelet Volume 6.6 FL (6.5-10.1) Neutrophils (%) (Auto) 77.6 % (45.0-75.0) H Lymphocytes (%) (Auto) 11.5 % (20.0-45.0) L Monocytes (%) (Auto) 9.2 % (1.0-10.0) Eosinophils (%) (Auto) 1.1 % (0.0-3.0) Basophils (%) (Auto) 0.7 % (0.0-2.0) Prothrombin Time 25.4 SEC (9.30-11.50) H Prothromb Time International Ratio 2.4 (0.9-1.1) H Sodium Level 139 MMOL/L (136-145) Potassium Level 3.5 MMOL/L (3.5-5.1) Chloride Level 106 MMOL/L (98-107) Carbon Dioxide Level 25 MMOL/L (21-32) Anion Gap 8 mmol/L (5-15) Blood Urea Nitrogen 14 mg/dL (7-18) Creatinine 1.0 MG/DL (0.55-1.30) Estimat Glomerular Filtration Rate mL/min (>60) Glucose Level 165 MG/DL (74-106) H Calcium Level 8.5 MG/DL (8.5-10.1) Arnulfo Rodarte MD Apr 29, 2018 12:49
--- NOTE | 2018-04-29 14:03 | Pulmonology Progress Note ---
Assessment/Plan Assessment/Plan IMPRESSION extensive left sided pneumonia (lobar/basilar) respiratory failure hypoxemia chronic encephalopathy aspiration pneumonia GT reduced LOC PLAN dc planning cxr -monitor for clearing regimen of antibiotics reviewed suction PRN labs stable aspiration precautions as is feeds tolerated; elevate head DVT prophylaxis as is feeds as tolerate impression, plan, and exam edited and reviewed in detail care discussed with RN Subjective ROS Limited/Unobtainable: Yes Allergies: Coded Allergies: No Known Allergies (Unverified , 12/22/17) Subjective no distress no significant congestion on oxygen and feeds same Objective Last 24 Hour Vital Signs Date Time Temp Pulse Resp B/P (MAP) Pulse Ox O2 Delivery O2 Flow Rate FiO2 04/29/18 12:00 90 04/29/18 12:00 97.5 101 24 143/74 98 97.5 04/29/18 10:28 108 144/92 04/29/18 08:00 105 04/29/18 04:00 108 04/29/18 04:00 98.6 111 22 144/92 99 Nasal Cannula 1.0 98.6 04/29/18 00:00 105 04/29/18 00:00 97.7 111 20 156/90 100 Nasal Cannula 1.0 97.7 04/28/18 21:37 110 148/74 04/28/18 20:00 107 04/28/18 20:00 97.7 110 22 148/74 98 Nasal Cannula 1.0 97.7 04/28/18 16:45 98 Nasal Cannula 1.0 24 04/28/18 16:45 Nasal Cannula 1.0 24 04/28/18 15:47 97.8 90 20 128/89 98 Nasal Cannula 1.0 97.8 04/28/18 15:43 90 Intake and Output 04/28/18 04/29/18 19:00 07:00 Output Total 500 ml 1550 ml Balance -500 ml -1550 ml Output Urine Total 500 ml 1550 ml # Bowel Movements 1 1 Objective WDWN NAD moderate breath sounds bilaterally- without wheeze or rhonchi [id number] without MRG NABS nontender no HSM no CCE GT confused; reduced ROM nonfocal reviewed Laboratory Tests 04/29/18 07:58: White Blood Count 8.9, Red Blood Count 4.47L, Hemoglobin 11.6L, Hematocrit 36.0L , Mean Corpuscular Volume 81, Mean Corpuscular Hemoglobin 26.1L, Mean Corpuscular Hemoglobin Concent 32.4, Red Cell Distribution Width 15.0H, Platelet Count 355, Mean Platelet Volume 6.6, Neutrophils (%) (Auto) 77.6H, Lymphocytes (%) (Auto) 11.5L, Monocytes (%) (Auto) 9.2, Eosinophils (%) (Auto) 1.1, Basophils (%) (Auto) 0.7, Prothrombin Time 25.4H, Prothromb Time International Ratio 2.4H, Sodium Level 139, Potassium Level 3.5, Chloride Level 106, Carbon Dioxide Level 25, Anion Gap 8, Blood Urea Nitrogen 14, Creatinine 1.0, Estimat Glomerular Filtration Rate , Glucose Level 165H, Calcium Level 8.5 Current Medications Medications (Trade) Dose Ordered Sig/Mckenzie Route PRN Reason Start Time Stop Time Status Last Admin Dose Admin Acetaminophen (Tylenol) 650 mg Q4H PRN ORAL Mild Pain (Pain Scale 1-3) 04/24/18 21:00 05/17/18 20:59 Dextrose (Dextrose 50%) 25 ml STAT PRN IV Hypoglycemia 04/24/18 21:00 05/17/18 20:59 Dextrose (Dextrose 50%) 50 ml STAT PRN IV Hypoglycemia 04/24/18 21:00 05/17/18 20:59 Metoprolol Tartrate (Lopressor) 12.5 mg Q12HR ORAL 04/26/18 22:30 05/26/18 22:29 04/29/18 10:28 Pantoprazole (Protonix) 40 mg DAILY ORAL 04/26/18 09:00 05/26/18 08:59 04/29/18 10:29 Piperacillin Sod/ Tazobactam Sod 3.375 gm/Sodium Chloride 110 ml @ 27.5 mls/hr Q8HR@0200,1000,1800 IVPB 04/25/18 02:00 05/01/18 01:59 04/29/18 10:30 Vancomycin HCl (Vanco rx to dose) 1 ea DAILY PRN MISC Per rx protocol 04/25/18 09:00 05/17/18 20:59 Vancomycin HCl/ Dextrose 250 ml @ 166.667 mls/hr Q12H IVPB 04/25/18 06:00 05/04/18 05:59 04/29/18 06:00 Warfarin Sodium (Coumadin per pharmacy) 1 ea DAILY PRN MISC Per rx protocol 04/25/18 09:00 05/18/18 10:14 Warfarin Sodium (Coumadin) 5 mg COUMADIN ONCE ORAL 04/29/18 17:00 04/29/18 17:01 Tim Andrade MD Apr 29, 2018 14:03
[2018-04-29 16:00] VITALS: BP 149/79
[2018-04-29] MEDS ORDERED: Warfarin Sodium 5mg ORAL ONE (17:00)
[2018-04-29 20:00] VITALS: BP 133/75
[2018-04-29] MEDS: Vancomycin 750mg/NS 250ml IVPB SCH (23:19)
[2018-04-30] VITALS: BP 122/70
[2018-04-30] MEDS: Piperacillin/Tazobactam 3.375 GM in NS 110 ML IVPB SCH ×3 (01:22→18:41)
[2018-04-30 04:00] VITALS: BP 148/74
[2018-04-30 06:49] LABS: INR 2.4 (0.9-1.1)
[2018-04-30 08:00] VITALS: BP 155/87
--- NOTE | 2018-04-30 08:05 | Pulmonology Progress Note ---
Assessment/Plan Assessment/Plan IMPRESSION extensive left sided pneumonia (lobar/basilar) respiratory failure hypoxemia chronic encephalopathy aspiration pneumonia GT reduced LOC PLAN dc planning noted cxr with need for snf follow up regimen of antibiotics reviewed suction PRN labs noted aspiration precautions as is feeds tolerated; per review DVT prophylaxis as is feeds as tolerate impression, plan, and exam edited and reviewed in detail care discussed with RN Subjective Allergies: Coded Allergies: No Known Allergies (Unverified , 12/22/17) Subjective no distress no significant congestion on oxygen and feeds care noted Objective Last 24 Hour Vital Signs Date Time Temp Pulse Resp B/P (MAP) Pulse Ox O2 Delivery O2 Flow Rate FiO2 04/30/18 04:00 98.6 88 24 148/74 100 Nasal Cannula 1.0 98.6 04/30/18 04:00 80 04/30/18 00:00 89 04/30/18 00:00 97.9 91 24 122/70 100 Nasal Cannula 1.0 97.9 04/29/18 22:00 92 133/75 04/29/18 20:00 98.5 92 24 133/75 99 Nasal Cannula 1.0 98.5 04/29/18 20:00 84 04/29/18 19:30 98 Nasal Cannula 2.0 28 04/29/18 19:30 Nasal Cannula 2.0 28 04/29/18 16:00 91 04/29/18 16:00 97.8 98 24 149/79 98 Nasal Cannula 1.0 97.8 04/29/18 12:00 90 04/29/18 12:00 97.5 101 24 143/74 98 97.5 04/29/18 10:28 108 144/92 Intake and Output 04/29/18 04/30/18 19:00 07:00 Output Total 700 ml 700 ml Balance -700 ml -700 ml Output Urine Total 700 ml 700 ml # Bowel Movements 1 1 Objective WDWN NAD moderate breath sounds bilaterally- without wheeze or rhonchi [id number] without MRG NABS nontender no HSM no CCE GT confused; reduced ROM nonfocal reviewed Laboratory Tests 04/29/18 17:50: Vancomycin Level Trough 23.8H 04/30/18 05:33: Prothrombin Time 25.5H, Prothromb Time International Ratio 2.4H Current Medications Medications (Trade) Dose Ordered Sig/Mckenzie Route PRN Reason Start Time Stop Time Status Last Admin Dose Admin Acetaminophen (Tylenol) 650 mg Q4H PRN ORAL Mild Pain (Pain Scale 1-3) 04/24/18 21:00 05/17/18 20:59 Dextrose (Dextrose 50%) 25 ml STAT PRN IV Hypoglycemia 04/24/18 21:00 05/17/18 20:59 Dextrose (Dextrose 50%) 50 ml STAT PRN IV Hypoglycemia 04/24/18 21:00 05/17/18 20:59 Metoprolol Tartrate (Lopressor) 12.5 mg Q12HR ORAL 04/26/18 22:30 05/26/18 22:29 04/29/18 22:00 Pantoprazole (Protonix) 40 mg DAILY ORAL 04/26/18 09:00 05/26/18 08:59 04/29/18 10:29 Piperacillin Sod/ Tazobactam Sod 3.375 gm/Sodium Chloride 110 ml @ 27.5 mls/hr Q8HR@0200,1000,1800 IVPB 04/25/18 02:00 05/01/18 01:59 04/30/18 01:22 Vancomycin HCl (Vanco rx to dose) 1 ea DAILY PRN MISC Per rx protocol 04/25/18 09:00 05/17/18 20:59 Vancomycin/Sodium Chloride 250 ml @ 166.667 mls/hr Q12HR@0000,1200 IVPB 04/30/18 00:00 05/05/18 00:00 04/29/18 23:19 Warfarin Sodium (Coumadin per pharmacy) 1 ea DAILY PRN MISC Per rx protocol 04/25/18 09:00 05/18/18 10:14 Warfarin Sodium (Coumadin) 5 mg COUMADIN ORAL 04/30/18 17:00 04/30/18 18:30 Tim Andrade MD Apr 30, 2018 08:05
--- NOTE | 2018-04-30 08:28 | General Progress Note ---
Assessment/Plan Assessment/Plan Aspiration Pneumonia - IV Abx On Coumadin per Pharmacy due to h/o DVT. INR therapeutic. Repeat CXR improved. To [facility]. V Tach - Cardiology noted. DC to SNF toda? [facility] "No beds". TF resumed @ 30 ml/hr. High residuals. Needs PEJ. GI to advise re PEJ. DC planning Subjective Allergies: Coded Allergies: No Known Allergies (Unverified , 12/22/17) Subjective TF @ 60 ml/hr tolerated Objective Last 24 Hour Vital Signs Date Time Temp Pulse Resp B/P (MAP) Pulse Ox O2 Delivery O2 Flow Rate FiO2 04/30/18 04:00 98.6 88 24 148/74 100 Nasal Cannula 1.0 98.6 04/30/18 04:00 80 04/30/18 00:00 89 04/30/18 00:00 97.9 91 24 122/70 100 Nasal Cannula 1.0 97.9 04/29/18 22:00 92 133/75 04/29/18 20:00 98.5 92 24 133/75 99 Nasal Cannula 1.0 98.5 04/29/18 20:00 84 04/29/18 19:30 98 Nasal Cannula 2.0 28 04/29/18 19:30 Nasal Cannula 2.0 28 04/29/18 16:00 91 04/29/18 16:00 97.8 98 24 149/79 98 Nasal Cannula 1.0 97.8 04/29/18 12:00 90 04/29/18 12:00 97.5 101 24 143/74 98 97.5 04/29/18 10:28 108 144/92 Intake and Output 04/29/18 04/30/18 19:00 07:00 Output Total 700 ml 700 ml Balance -700 ml -700 ml Output Urine Total 700 ml 700 ml # Bowel Movements 1 1 Laboratory Tests 04/29/18 17:50: Vancomycin Level Trough 23.8H 04/30/18 05:33: Prothrombin Time 25.5H, Prothromb Time International Ratio 2.4H Height (Feet): 5 Height (Inches): 5.00 Weight (Pounds): 130 Objective Monitor - episode of Vtach CV RR Lungs B Ronchi Abd SNT. BS + E No CCE Ervin Mario MD Apr 30, 2018 08:28
[2018-04-30] MEDS ORDERED: Metoclopramide 10mg/10ml Liq GT SCH (09:00)
[2018-04-30] MEDS: Metoprolol Tartrate 12.5mg TAB ORAL SCH ×2 (09:06→20:47)
--- NOTE | 2018-04-30 10:31 | GI Initial Consult Note ---
History of Present Illness General Date patient seen: Apr 30, 2018 Time patient seen: 11:58 Reason for Hospitalization: General Complaint Referring physician: ERVIN MARIO Reason for Consultation: GTFs Present Illness HPI This is an 82-year-old male from [facility]. I was called yesterday by the nursing staff at [facility]. The patient became extremely short of breath and developed fever. The patient was admitted to [facility] about two months ago with aspiration pneumonia with similar presentation. He was admitted there for about three weeks and he was transferred back to [facility] after that admission. The patient re-presented to the emergency department with full-blown respiratory failure and was placed on BiPAP. GI consulted for GTF management. ROS limited. Hx of dysphagia, s/p EGD PEG back in December 2017 also dx with a gastric ulcer. Patient currently pending dc to SNF, GI asked to evaluate patient for reports of high residuals for the GTFs. Pt seen, labs reviewed. Endoscopy hx as noted below. Indication for Procedure: DYSPHAGIA Procedures Performed: EGD, PEG Operative Findings/Diagnosis: gu, S/P PEG TIFFANIE BARAJAS - Dec 28, 2017 12:09 Home Meds Active Scripts Warfarin Sod* (COUMADIN*) 3 Mg Tablet, 6 MG ORAL COUMADIN for 30 Days, TAB Prov:Ervin Mario MD 04/27/18 [Warfarin per pharmacy] 1 [facility] No Conflict Check, 1 [place] [facility] [place] 30 Days Prov:Ervin Mario MD 04/27/18 Pantoprazole* (PROTONIX*) 40 Mg Tablet.dr, 40 MG ORAL DAILY for 30 Days, TAB Prov:Ervin Mario MD 04/27/18 Metoprolol Tartrate (Metoprolol Tartrate) 25 Mg Tablet, 12.5 MG ORAL Q12HR for 30 Days, TAB Prov:Ervin Mario MD 04/27/18 Acetaminophen* (ACETAMINOPHEN 325MG TABLET*) 325 Mg Tablet, 650 MG ORAL Q4H PRN for 30 Days, TAB Prov:Ervin Mario MD 04/27/18 Discontinued Reported Medications Olanzapine* (ZYPREXA*) 2.5 Mg Tablet, 2.5 MG ORAL BID 04/17/18 Ondansetron* (ZOFRAN*) 4 Mg Tablet, 4 MG GT Q8HR PRN for Nausea & Vomiting 04/17/18 Ascorbic Acid* (VITAMIN C*) 500 Mg Tablet, 500 MG GT DAILY 04/17/18 Acetaminophen* (ACETAMINOPHEN 325MG TABLET*) 325 Mg Tablet, 325 MG GT Q4H PRN for MILD PAIN/TEMP >101 04/17/18 Pantoprazole Sodium (Protonix) 40 Mg Granpkt., 40 MG GT DAILY for GIVEN @ 1830 04/17/18 Amino Acids/Protein Hydrolys (PRO-STAT AWC LIQUID PACKET) 30 Ml Liquid.pkt, 30 ML GT DAILY 04/17/18 Hydrocodone Bit/Acetaminophen 5-325* ([place] 5-325*) 1 Each Tablet, 1 TAB GT Q4H PRN for MODERATE PAIN 04/17/18 Hydrocodone Bit/Acetaminophen 10-325* ([place] 10-325*) 1 Each Tablet, 1 TAB GT Q4H PRN for SEVERE PAIN PRN PAIN 04/17/18 Multivitamin Liquid* (MULTI-DELYN*) 237 Ml Liquid, 5 ML GT DAILY 04/17/18 Magnesium Hydroxide* (MILK OF MAGNESIA*) 400 Mg/5 Ml Oral.susp, 30 ML GT BEDTIME PRN for IF STOOL SOFTNER INEFFECTIVE 04/17/18 Lactobacillus Rhamnosus Gg* (CULTURELLE*) 1 Each Capsule, 1 CAP GT BID 04/17/18 Na Phos,M-B/Na Phos,Di-Ba* (FLEET ENEMA*) 133 Ml Enema, 133 ML RECTAL EVERY OTHER DAY PRN for IF DULCOLAX INEFFECTIVE 04/17/18 Ipratropium/Albuterol Sulfate (DuoNeb 0.5-3(2.5)mg/3ml) 3 Ml Ampul.neb, 3 ML HHN Q6HR PRN for SOB/WHEEZING 04/17/18 Bisacodyl (DULCOLAX) 10 Mg Supp.rect, 10 MG RC BEDTIME PRN for IF MOM INEFFECTIVE 04/17/18 Warfarin Sod* (WARFARIN SOD*) 6 Mg Tablet, 6 MG GT DAILY for GIVEN @ 1700 04/17/18 Lisinopril (LISINOPRIL*) 5 Mg Tablet, 5 MG ORAL DAILY, TAB 12/22/17 Aspirin* (ASPIR 81*) 81 Mg Tablet., 81 MG ORAL DAILY, TAB 12/22/17 Med list reviewed/reconciled: Yes Allergies: Coded Allergies: No Known Allergies (Unverified , 12/22/17) Patient History Limited by: medical condition History Provided By: Medical Record [facility] Narrative PAST MEDICAL HISTORY: 1. Organic brain syndrome. 2. COPD. 3. Status post G-tube placement. 4. History of DVT. 5. Psychosis. 6. Benign prostatic hypertrophy. 7. Malnutrition. 8. Onychomycosis. Review of Systems All Other Systems: limited Physical Exam Vital Signs Date Time Temp Pulse Resp B/P (MAP) Pulse Ox O2 Delivery O2 Flow Rate FiO2 04/26/18 08:00 98.0 89 20 132/70 97 Nasal Cannula 1.0 98.0 04/26/18 20:10 24 Sp02 EP Interpretation: reviewed, normal Labs Laboratory Tests Test 04/29/18 17:50 04/30/18 05:33 Vancomycin Level Trough 23.8 ug/mL (5.0-12.0) H Prothrombin Time 25.5 SEC (9.30-11.50) H Prothromb Time International Ratio 2.4 (0.9-1.1) H General Appearance: well appearing, no apparent distress, alert Head: normocephalic EENT: PERRL/EOMI, normal ENT inspection Neck: supple Respiratory: normal breath sounds, no respiratory distress Cardiovascular: normal rate Gastrointestinal: normal inspection, non tender, soft, normal bowel sounds, non -distended, gt - present, c/d/i Rectal: deferred Genitourinary: deferred Musculoskeletal: normal inspection, back normal Neurologic: alert, responsive Skin: normal inspection, normal color, no rash, warm/dry, palpation normal, well hydrated Lymphatic: normal inspection, no adenopathy Current Medications Current Medications Medications (Trade) Dose Ordered Sig/Mckenzie Route PRN Reason Start Time Stop Time Status Last Admin Dose Admin Acetaminophen (Tylenol) 650 mg Q4H PRN ORAL Mild Pain (Pain Scale 1-3) 04/24/18 21:00 05/17/18 20:59 Dextrose (Dextrose 50%) 25 ml STAT PRN IV Hypoglycemia 04/24/18 21:00 05/17/18 20:59 Dextrose (Dextrose 50%) 50 ml STAT PRN IV Hypoglycemia 04/24/18 21:00 05/17/18 20:59 Metoclopramide HCl (Reglan) 10 mg AC+HS GT 04/30/18 16:30 05/30/18 16:29 Metoprolol Tartrate (Lopressor) 12.5 mg Q12HR ORAL 04/26/18 22:30 05/26/18 22:29 04/30/18 09:06 Pantoprazole (Protonix) 40 mg DAILY ORAL 04/26/18 09:00 05/26/18 08:59 04/30/18 09:06 Piperacillin Sod/ Tazobactam Sod 3.375 gm/Sodium Chloride 110 ml @ 27.5 mls/hr Q8HR@0200,1000,1800 IVPB 04/25/18 02:00 05/01/18 01:59 04/30/18 09:05 Vancomycin HCl (Vanco rx to dose) 1 ea DAILY PRN MISC Per rx protocol 04/25/18 09:00 05/17/18 20:59 Vancomycin/Sodium Chloride 250 ml @ 166.667 mls/hr Q12HR@0000,1200 IVPB 04/30/18 00:00 05/05/18 00:00 04/29/18 23:19 Warfarin Sodium (Coumadin per pharmacy) 1 ea DAILY PRN MISC Per rx protocol 04/25/18 09:00 05/18/18 10:14 Warfarin Sodium (Coumadin) 5 mg COUMADIN ORAL 04/30/18 17:00 04/30/18 18:30 GI: Plan Problems: (1) Gastroparesis (2) Dysphagia (3) Anemia (4) Encounter for PEG (percutaneous endoscopic gastrostomy) Plan s/p EGD PEG in December 2017. per report, patient is not tolerating GTFs labs reviewed >> Hyperglycemia >> possible gastroparesis 2/2 to DM will consider GJ placement if trial diet change + reglan does not work. d/w with RD, will change feeding to Glucerna given elevated glucose levels will add sliding scale, order HgA1C cont reglan ATC ppi GTFs per RD to goal prn transfusions fu labs Discussed with Dr. Barajas. Thank you for this patient referral, we will follow. The patient was seen and examined at bedside and all new and available data was reviewed in the patients chart. I agree with the above findings, impression and plan. (Patient seen earlier today. Signature stamp does not reflect patient encounter time.). - MD Mary YañezUnited [facility] [employer] Apr 30, 2018 10:31
--- NOTE | 2018-04-30 11:37 | Consultation ---
History of Present Illness General Date patient seen: Apr 30, 2018 Chief Complaint: General Complaint Present Illness HPI 82-year-old male with mmp who was admitted for shortness of breath and fever. The pt has been restraints for the past several days. the pt is agitated and confused. The pt was unable to provide hx. The pt was grabbing others. The was unable to answer the questions. The pt has impairment of memory. Allergies: Coded Allergies: No Known Allergies (Unverified , 12/22/17) Medication History Scheduled Metoprolol Tartrate (Metoprolol Tartrate), 12.5 MG ORAL Q12HR Pantoprazole* (Protonix*), 40 MG ORAL DAILY Warfarin Sod* (Coumadin*), 6 MG ORAL COUMADIN Scheduled PRN Acetaminophen* (Acetaminophen 325MG Tablet*), 650 MG ORAL Q4H PRN [Warfarin per pharmacy], 1 EA MISC DAILY PRN Discontinued Medications Acetaminophen* (Acetaminophen 325MG Tablet*), 325 MG GT Q4H PRN for MILD PAIN/ TEMP >101, (Reported) Discontinued Reason: MD discontinued med Amino Acids/Protein Hydrolys (Pro-Stat Awc Liquid Packet), 30 ML GT DAILY, ( Reported) Discontinued Reason: MD discontinued med Ascorbic Acid* (Vitamin C*), 500 MG GT DAILY, (Reported) Discontinued Reason: MD discontinued med Aspirin* (Aspir 81*), 81 MG ORAL DAILY, (Reported) Discontinued Reason: MD discontinued med Bisacodyl (Dulcolax), 10 MG RC BEDTIME PRN for IF MOM INEFFECTIVE, (Reported) Discontinued Reason: MD discontinued med Hydrocodone Bit/Acetaminophen 10-325* ([place] 10-325*), 1 TAB GT Q4H PRN for SEVERE PAIN, (Reported) Discontinued Reason: MD discontinued med Hydrocodone Bit/Acetaminophen 5-325* ([place] 5-325*), 1 TAB GT Q4H PRN for MODERATE PAIN, (Reported) Discontinued Reason: MD discontinued med Ipratropium/Albuterol Sulfate (DuoNeb 0.5-3(2.5)mg/3ml), 3 ML HHN Q6HR PRN for SOB/WHEEZING, (Reported) Discontinued Reason: MD discontinued med Lactobacillus Rhamnosus Gg* (Culturelle*), 1 CAP GT BID, (Reported) Discontinued Reason: MD discontinued med Lisinopril (Lisinopril*), 5 MG ORAL DAILY, (Reported) Discontinued Reason: MD discontinued med Magnesium Hydroxide* (Milk Of Magnesia*), 30 ML GT BEDTIME PRN for IF STOOL SOFTNER INEFFECTIVE, (Reported) Discontinued Reason: MD discontinued med Multivitamin Liquid* (Multi-Delyn*), 5 ML GT DAILY, (Reported) Discontinued Reason: MD discontinued med Na Phos,M-B/Na Phos,Di-Ba* (Fleet Enema*), 133 ML RECTAL EVERY OTHER DAY PRN for IF DULCOLAX INEFFECTIVE, (Reported) Discontinued Reason: MD discontinued med Olanzapine* (Zyprexa*), 2.5 MG ORAL BID, (Reported) Discontinued Reason: MD discontinued med Ondansetron* (Zofran*), 4 MG GT Q8HR PRN for Nausea & Vomiting, (Reported) Discontinued Reason: MD discontinued med Pantoprazole Sodium (Protonix), 40 MG GT DAILY, (Reported) Discontinued Reason: MD discontinued med Warfarin Sod* (Warfarin Sod*), 6 MG GT DAILY, (Reported) Discontinued Reason: MD discontinued med Patient History Limited by: medical condition History Provided By: Medical Record, PMD Healthcare decision maker KALEBRIANNA GREGORIO (SON) / Resuscitation status Full Code Advanced Directive on File Past Medical/Surgical History Past Medical/Surgical History: (1) Anemia (2) Dysphagia (3) Encounter for PEG (percutaneous endoscopic gastrostomy) (4) Sepsis (5) Respiratory distress (6) Pneumonia Review of Systems Psychiatric: Reports: prior hx, anxiety, hallucinations Physical Exam General Appearance: alert, confused, agitated Neurologic: disoriented Last 24 Hour Vital Signs Date Time Temp Pulse Resp B/P (MAP) Pulse Ox O2 Delivery O2 Flow Rate FiO2 04/30/18 09:06 112 155/87 04/30/18 08:00 99 04/30/18 08:00 97.1 112 21 155/87 98 Nasal Cannula 1.0 97.1 04/30/18 04:00 98.6 88 24 148/74 100 Nasal Cannula 1.0 98.6 04/30/18 04:00 80 04/30/18 00:00 89 04/30/18 00:00 97.9 91 24 122/70 100 Nasal Cannula 1.0 97.9 04/29/18 22:00 92 133/75 04/29/18 20:00 98.5 92 24 133/75 99 Nasal Cannula 1.0 98.5 04/29/18 20:00 84 04/29/18 19:30 98 Nasal Cannula 2.0 28 04/29/18 19:30 Nasal Cannula 2.0 28 04/29/18 16:00 91 04/29/18 16:00 97.8 98 24 149/79 98 Nasal Cannula 1.0 97.8 04/29/18 12:00 90 04/29/18 12:00 97.5 101 24 143/74 98 97.5 Intake and Output 04/29/18 04/30/18 19:00 07:00 Output Total 700 ml 700 ml Balance -700 ml -700 ml Output Urine Total 700 ml 700 ml # Bowel Movements 1 1 Laboratory Tests Test 04/29/18 17:50 04/30/18 05:33 Vancomycin Level Trough 23.8 ug/mL (5.0-12.0) H Prothrombin Time 25.5 SEC (9.30-11.50) H Prothromb Time International Ratio 2.4 (0.9-1.1) H Height (Feet): 5 Height (Inches): 5.00 Weight (Pounds): 130 Medications Current Medications Medications (Trade) Dose Ordered Sig/Mckenzie Route PRN Reason Start Time Stop Time Status Last Admin Dose Admin Acetaminophen (Tylenol) 650 mg Q4H PRN ORAL Mild Pain (Pain Scale 1-3) 04/24/18 21:00 05/17/18 20:59 Dextrose (Dextrose 50%) 25 ml STAT PRN IV Hypoglycemia 04/24/18 21:00 05/17/18 20:59 Dextrose (Dextrose 50%) 50 ml STAT PRN IV Hypoglycemia 04/24/18 21:00 05/17/18 20:59 Metoclopramide HCl (Reglan) 10 mg AC+HS GT 04/30/18 16:30 05/30/18 16:29 Metoprolol Tartrate (Lopressor) 12.5 mg Q12HR ORAL 04/26/18 22:30 05/26/18 22:29 04/30/18 09:06 Pantoprazole (Protonix) 40 mg DAILY ORAL 04/26/18 09:00 05/26/18 08:59 04/30/18 09:06 Piperacillin Sod/ Tazobactam Sod 3.375 gm/Sodium Chloride 110 ml @ 27.5 mls/hr Q8HR@0200,1000,1800 IVPB 04/25/18 02:00 05/01/18 01:59 04/30/18 09:05 Quetiapine Fumarate (SEROquel) 25 mg EVERY 6 HOURS PRN ORAL For Anxiety 04/30/18 11:30 05/30/18 11:29 UNV Vancomycin HCl (Vanco rx to dose) 1 ea DAILY PRN MISC Per rx protocol 04/25/18 09:00 05/17/18 20:59 Vancomycin/Sodium Chloride 250 ml @ 166.667 mls/hr Q12HR@0000,1200 IVPB 04/30/18 00:00 05/05/18 00:00 04/29/18 23:19 Warfarin Sodium (Coumadin per pharmacy) 1 ea DAILY PRN MISC Per rx protocol 04/25/18 09:00 05/18/18 10:14 Warfarin Sodium (Coumadin) 5 mg COUMADIN ORAL 04/30/18 17:00 04/30/18 18:30 Assessment/Plan Assessment/Plan encephalopathy Agitation -Seroquel 25mg gt q 6hr -the pt will be continued on restraints for Nan Coronado M.D. Apr 30, 2018 11:37
[2018-04-30 12:00] VITALS: BP 126/69
[2018-04-30] MEDS: Vancomycin 750mg/NS 250ml IVPB SCH ×2 (13:47→23:45)
[2018-04-30 16:00] VITALS: BP 127/67
[2018-04-30] MEDS ORDERED: Warfarin Sodium 5mg ORAL SCH (17:00)
[2018-04-30] MEDS: Metoclopramide 10mg/10ml Liq GT SCH ×2 (17:02→20:46)
[2018-04-30 20:00] VITALS: BP 142/92
[2018-05-01] VITALS: BP 148/80
[2018-05-01 04:00] VITALS: BP 137/72
[2018-05-01] MEDS: Metoclopramide 10mg/10ml Liq GT SCH ×4 (05:53→20:59)
[2018-05-01 07:24] LABS: BASOPHILS % (AUTO) 1.3 % (0.0-2.0); EOSINOPHILS % (AUTO) 1.1 % (0.0-3.0); HEMATOCRIT 34.5 % (42.0-52.0); HEMOGLOBIN 11.4 G/DL (14.2-18.0); MEAN CORPUSCULAR VOLUME 81 FL (80-99); MONOCYTES % (AUTO) 10.9 % (1.0-10.0); NEUTROPHILS % (AUTO) 73.7 % (45.0-75.0); PLATELET COUNT 340 K/UL (150-450); RED BLOOD COUNT 4.27 M/UL (4.70-6.10); RED CELL DISTRIBUTION WIDTH 15.3 % (11.6-14.8); WHITE BLOOD COUNT 7.6 K/UL (4.8-10.8)
[2018-05-01 07:35] LABS: ANION GAP 8 mmol/L (5-15); BLOOD UREA NITROGEN 15 mg/dL (7-18); CALCIUM 8.7 MG/DL (8.5-10.1); CARBON DIOXIDE 27 MMOL/L (21-32); CHLORIDE 110 MMOL/L (98-107); CREATININE 0.9 MG/DL (0.55-1.30); POTASSIUM 3.6 MMOL/L (3.5-5.1); SODIUM 145 MMOL/L (136-145)
[2018-05-01 07:55] LABS: INR 2.9 (0.9-1.1)
[2018-05-01 08:00] VITALS: BP 165/93
--- NOTE | 2018-05-01 08:23 | General Progress Note ---
Assessment/Plan Assessment/Plan Aspiration Pneumonia - IV Abx On Coumadin per Pharmacy due to h/o DVT. INR therapeutic. Repeat CXR improved. To [facility]. V Tach - Cardiology noted. DC to SNF? [facility] "No beds". TF resumed @ 30 ml/hr. High residuals. Needs PEJ. GI to advise re PEJ. DC planning Subjective Allergies: Coded Allergies: No Known Allergies (Unverified , 12/22/17) Subjective TF @ 60 ml/hr tolerated Objective Last 24 Hour Vital Signs Date Time Temp Pulse Resp B/P (MAP) Pulse Ox O2 Delivery O2 Flow Rate FiO2 05/01/18 04:00 104 05/01/18 04:00 97.5 104 18 137/72 96 Room Air 97.5 05/01/18 00:00 98 05/01/18 00:00 98.1 98 20 148/80 97 Room Air 98.1 04/30/18 20:47 97 142/92 04/30/18 20:00 94 04/30/18 20:00 97.9 97 17 142/92 98 Room Air 97.9 04/30/18 16:00 91 04/30/18 16:00 98.8 93 20 127/67 97 98.8 04/30/18 12:00 98.1 83 18 126/69 99 98.1 04/30/18 12:00 85 04/30/18 09:06 112 155/87 Intake and Output 04/30/18 05/01/18 19:00 07:00 Intake Total 995 ml Output Total 1000 ml 900 ml Balance -1000 ml 95 ml Free Water 300 ml IV Total 360 ml Tube Feeding 335 ml Output Urine Total 1000 ml 900 ml # Bowel Movements 1 1 Laboratory Tests 04/30/18 23:20: Vancomycin Level Trough 22.0H 05/01/18 06:00: White Blood Count 7.6, Red Blood Count 4.27L, Hemoglobin 11.4L, Hematocrit 34.5L , Mean Corpuscular Volume 81, Mean Corpuscular Hemoglobin 26.6L, Mean Corpuscular Hemoglobin Concent 32.8, Red Cell Distribution Width 15.3H, Platelet Count 340, Mean Platelet Volume 6.1L, Neutrophils (%) (Auto) 73.7, Lymphocytes (%) (Auto) 13.0L, Monocytes (%) (Auto) 10.9H, Eosinophils (%) (Auto ) 1.1, Basophils (%) (Auto) 1.3, Prothrombin Time 30.4H, Prothromb Time International Ratio 2.9H, Sodium Level 145, Potassium Level 3.6, Chloride Level 110H, Carbon Dioxide Level 27, Anion Gap 8, Blood Urea Nitrogen 15, Creatinine 0.9, Estimat Glomerular Filtration Rate , Glucose Level 119H, Hemoglobin A1c 6.0 , Calcium Level 8.7 Height (Feet): 5 Height (Inches): 5.00 Weight (Pounds): 130 Objective Monitor - episode of Vtach CV RR Lungs B Alana Gonzales SNT. BS + E No CCE Ervin Mario MD May 01, 2018 08:23
[2018-05-01] MEDS: Metoprolol Tartrate 12.5mg TAB ORAL SCH ×2 (08:55→21:00)
[2018-05-01 12:00] VITALS: BP 155/84
--- NOTE | 2018-05-01 15:06 | General Progress Note ---
Assessment/Plan Assessment/Plan encephalopathy Agitation -Seroquel 25mg gt q 6hr - continued on restraints for now Subjective Date patient seen: May 01, 2018 Neurologic/Psychiatric: Reports: anxiety Allergies: Coded Allergies: No Known Allergies (Unverified , 12/22/17) Subjective the pt still anxious however much less Objective Last 24 Hour Vital Signs Date Time Temp Pulse Resp B/P (MAP) Pulse Ox O2 Delivery O2 Flow Rate FiO2 05/01/18 12:00 98.7 101 20 155/84 100 Room Air 98.7 05/01/18 12:00 97 05/01/18 08:55 105 165/93 05/01/18 08:00 101 05/01/18 08:00 98.4 105 20 165/93 98 Room Air 98.4 05/01/18 04:00 104 05/01/18 04:00 97.5 104 18 137/72 96 Room Air 97.5 05/01/18 00:00 98 05/01/18 00:00 98.1 98 20 148/80 97 Room Air 98.1 04/30/18 20:47 97 142/92 04/30/18 20:00 94 04/30/18 20:00 97.9 97 17 142/92 98 Room Air 97.9 04/30/18 16:00 91 04/30/18 16:00 98.8 93 20 127/67 97 98.8 Intake and Output 04/30/18 05/01/18 19:00 07:00 Intake Total 995 ml Output Total 1000 ml 900 ml Balance -1000 ml 95 ml Free Water 300 ml IV Total 360 ml Tube Feeding 335 ml Output Urine Total 1000 ml 900 ml # Bowel Movements 1 1 Laboratory Tests 04/30/18 23:20: Vancomycin Level Trough 22.0H 05/01/18 06:00: White Blood Count 7.6, Red Blood Count 4.27L, Hemoglobin 11.4L, Hematocrit 34.5L , Mean Corpuscular Volume 81, Mean Corpuscular Hemoglobin 26.6L, Mean Corpuscular Hemoglobin Concent 32.8, Red Cell Distribution Width 15.3H, Platelet Count 340, Mean Platelet Volume 6.1L, Neutrophils (%) (Auto) 73.7, Lymphocytes (%) (Auto) 13.0L, Monocytes (%) (Auto) 10.9H, Eosinophils (%) (Auto ) 1.1, Basophils (%) (Auto) 1.3, Prothrombin Time 30.4H, Prothromb Time International Ratio 2.9H, Sodium Level 145, Potassium Level 3.6, Chloride Level 110H, Carbon Dioxide Level 27, Anion Gap 8, Blood Urea Nitrogen 15, Creatinine 0.9, Estimat Glomerular Filtration Rate , Glucose Level 119H, Hemoglobin A1c 6.0 , Calcium Level 8.7 05/01/18 11:50: Random Vancomycin Level 18.2 Height (Feet): 5 Height (Inches): 5.00 Weight (Pounds): 130 General Appearance: WD/WN, no apparent distress, alert, confused, agitated Nan Foreman M.D. May 01, 2018 15:06
[2018-05-01] MEDS: Vancomycin 750mg/NS 250ml IVPB SCH (15:44)
--- NOTE | 2018-05-01 15:55 | GI Progress Note ---
Assessment/Plan Problems: (1) Encounter for PEG (percutaneous endoscopic gastrostomy) ICD Codes: Z43.1 - Encounter for attention to gastrostomy SNOMED: 517789573, 153094523 (2) Dysphagia ICD Codes: R13.10 - Dysphagia, unspecified SNOMED: 72905928, 850096496 (3) Anemia ICD Codes: D64.9 - Anemia, unspecified SNOMED: 308809874 (4) Gastroparesis ICD Codes: K31.84 - Gastroparesis SNOMED: 514487213 Status: stable Status Narrative Discussed with Dr. Medeiros. Assessment/Plan s/p EGD PEG in December 2017. per report, patient is not tolerating GTFs >> pt now has normal residuals labs reviewed >> Hyperglycemia >> Hg A1C normal will consider GJ placement if residuals are high >> at this time most likely will defer placement cont GTFs per RD to goal on reglan ATC ppi prn transfusions fu labs The patient was seen and examined at bedside and all new and available data was reviewed in the patients chart. I agree with the above findings, impression and plan. (Patient seen earlier today. Signature stamp does not reflect patient encounter time.). - Davian Medeiros MD Subjective Subjective limited Objective Last 24 Hour Vital Signs Date Time Temp Pulse Resp B/P (MAP) Pulse Ox O2 Delivery O2 Flow Rate FiO2 05/01/18 12:00 98.7 101 20 155/84 100 Room Air 98.7 05/01/18 12:00 97 05/01/18 08:55 105 165/93 05/01/18 08:00 101 05/01/18 08:00 98.4 105 20 165/93 98 Room Air 98.4 05/01/18 04:00 104 05/01/18 04:00 97.5 104 18 137/72 96 Room Air 97.5 05/01/18 00:00 98 05/01/18 00:00 98.1 98 20 148/80 97 Room Air 98.1 04/30/18 20:47 97 142/92 04/30/18 20:00 94 04/30/18 20:00 97.9 97 17 142/92 98 Room Air 97.9 04/30/18 16:00 91 04/30/18 16:00 98.8 93 20 127/67 97 98.8 Intake and Output 04/30/18 05/01/18 19:00 07:00 Intake Total 995 ml Output Total 1000 ml 900 ml Balance -1000 ml 95 ml Free Water 300 ml IV Total 360 ml Tube Feeding 335 ml Output Urine Total 1000 ml 900 ml # Bowel Movements 1 1 Laboratory Tests Test 04/30/18 23:20 05/01/18 06:00 05/01/18 11:50 Vancomycin Level Trough 22.0 ug/mL (5.0-12.0) H White Blood Count 7.6 K/UL (4.8-10.8) Red Blood Count 4.27 M/UL (4.70-6.10) L Hemoglobin 11.4 G/DL (14.2-18.0) L Hematocrit 34.5 % (42.0-52.0) L Mean Corpuscular Volume 81 FL (80-99) Mean Corpuscular Hemoglobin 26.6 PG (27.0-31.0) L Mean Corpuscular Hemoglobin Concent 32.8 G/DL (32.0-36.0) Red Cell Distribution Width 15.3 % (11.6-14.8) H Platelet Count 340 K/UL (150-450) Mean Platelet Volume 6.1 FL (6.5-10.1) L Neutrophils (%) (Auto) 73.7 % (45.0-75.0) Lymphocytes (%) (Auto) 13.0 % (20.0-45.0) L Monocytes (%) (Auto) 10.9 % (1.0-10.0) H Eosinophils (%) (Auto) 1.1 % (0.0-3.0) Basophils (%) (Auto) 1.3 % (0.0-2.0) Prothrombin Time 30.4 SEC (9.30-11.50) H Prothromb Time International Ratio 2.9 (0.9-1.1) H Sodium Level 145 MMOL/L (136-145) Potassium Level 3.6 MMOL/L (3.5-5.1) Chloride Level 110 MMOL/L (98-107) H Carbon Dioxide Level 27 MMOL/L (21-32) Anion Gap 8 mmol/L (5-15) Blood Urea Nitrogen 15 mg/dL (7-18) Creatinine 0.9 MG/DL (0.55-1.30) Estimat Glomerular Filtration Rate mL/min (>60) Glucose Level 119 MG/DL (74-106) H Hemoglobin A1c 6.0 % (4.3-6.0) Calcium Level 8.7 MG/DL (8.5-10.1) Random Vancomycin Level 18.2 ug/mL Height (Feet): 5 Height (Inches): 5.00 Weight (Pounds): 130 General Appearance: WD/WN, no apparent distress, alert Cardiovascular: normal rate Respiratory/Chest: normal breath sounds, no respiratory distress Abdominal Exam: normal bowel sounds, non tender, soft, GT site - c/d/i Extremities: non-tender Mega Hernandez NP May 01, 2018 15:55
[2018-05-01 16:00] VITALS: BP 145/94
--- NOTE | 2018-05-01 16:57 | Pulmonology Progress Note ---
Assessment/Plan Assessment/Plan IMPRESSION extensive left sided pneumonia (lobar/basilar) respiratory failure hypoxemia chronic encephalopathy aspiration pneumonia GT reduced LOC PLAN dc planning noted cxr as needed regimen of antibiotics reviewed suction PRN labs noted aspiration precautions as is feeds tolerated; per review DVT prophylaxis as is impression, plan, and exam edited and reviewed in detail care discussed with RN Subjective ROS Limited/Unobtainable: Yes Allergies: Coded Allergies: No Known Allergies (Unverified , 12/22/17) Subjective no distress no significant congestion overnight on oxygen and feeds care noted Objective Last 24 Hour Vital Signs Date Time Temp Pulse Resp B/P (MAP) Pulse Ox O2 Delivery O2 Flow Rate FiO2 05/01/18 12:00 98.7 101 20 155/84 100 Room Air 98.7 05/01/18 12:00 97 05/01/18 08:55 105 165/93 05/01/18 08:00 101 05/01/18 08:00 98.4 105 20 165/93 98 Room Air 98.4 05/01/18 04:00 104 05/01/18 04:00 97.5 104 18 137/72 96 Room Air 97.5 05/01/18 00:00 98 05/01/18 00:00 98.1 98 20 148/80 97 Room Air 98.1 04/30/18 20:47 97 142/92 04/30/18 20:00 94 04/30/18 20:00 97.9 97 17 142/92 98 Room Air 97.9 Intake and Output 04/30/18 05/01/18 19:00 07:00 Intake Total 995 ml Output Total 1000 ml 900 ml Balance -1000 ml 95 ml Free Water 300 ml IV Total 360 ml Tube Feeding 335 ml Output Urine Total 1000 ml 900 ml # Bowel Movements 1 1 Objective WDWN NAD moderate breath sounds bilaterally- without wheeze or rhonchi [id number] without MRG NABS nontender no HSM no CCE GT confused; reduced ROM nonfocal reviewed Laboratory Tests 04/30/18 23:20: Vancomycin Level Trough 22.0H 05/01/18 06:00: White Blood Count 7.6, Red Blood Count 4.27L, Hemoglobin 11.4L, Hematocrit 34.5L , Mean Corpuscular Volume 81, Mean Corpuscular Hemoglobin 26.6L, Mean Corpuscular Hemoglobin Concent 32.8, Red Cell Distribution Width 15.3H, Platelet Count 340, Mean Platelet Volume 6.1L, Neutrophils (%) (Auto) 73.7, Lymphocytes (%) (Auto) 13.0L, Monocytes (%) (Auto) 10.9H, Eosinophils (%) (Auto ) 1.1, Basophils (%) (Auto) 1.3, Prothrombin Time 30.4H, Prothromb Time International Ratio 2.9H, Sodium Level 145, Potassium Level 3.6, Chloride Level 110H, Carbon Dioxide Level 27, Anion Gap 8, Blood Urea Nitrogen 15, Creatinine 0.9, Estimat Glomerular Filtration Rate , Glucose Level 119H, Hemoglobin A1c 6.0 , Calcium Level 8.7 05/01/18 11:50: Random Vancomycin Level 18.2 Current Medications Medications (Trade) Dose Ordered Sig/Mckenzie Route PRN Reason Start Time Stop Time Status Last Admin Dose Admin Acetaminophen (Tylenol) 650 mg Q4H PRN ORAL Mild Pain (Pain Scale 1-3) 04/24/18 21:00 05/17/18 20:59 Dextrose (Dextrose 50%) 25 ml STAT PRN IV Hypoglycemia 04/24/18 21:00 05/17/18 20:59 Dextrose (Dextrose 50%) 50 ml STAT PRN IV Hypoglycemia 04/24/18 21:00 05/17/18 20:59 Metoclopramide HCl (Reglan) 10 mg AC+HS GT 04/30/18 16:30 05/30/18 16:29 05/01/18 15:43 Metoprolol Tartrate (Lopressor) 12.5 mg Q12HR ORAL 04/26/18 22:30 05/26/18 22:29 05/01/18 08:55 Pantoprazole (Protonix) 40 mg DAILY ORAL 04/26/18 09:00 05/26/18 08:59 05/01/18 08:55 Piperacillin Sod/ Tazobactam Sod 3.375 gm/Sodium Chloride 110 ml @ 27.5 mls/hr Q8HR@0000,0800,1600 IVPB 05/01/18 16:00 05/08/18 15:59 Quetiapine Fumarate (SEROquel) 25 mg Q6H PRN ORAL For Anxiety 04/30/18 12:00 05/30/18 11:59 04/30/18 12:04 Vancomycin HCl (Vanco rx to dose) 1 ea DAILY PRN MISC Per rx protocol 04/25/18 09:00 05/17/18 20:59 Vancomycin/Sodium Chloride 250 ml @ 166.667 mls/hr Q12HR@0200,1400 IVPB 05/01/18 14:00 05/06/18 13:59 05/01/18 15:44 Warfarin Sodium (Coumadin per pharmacy) 1 ea DAILY PRN MISC Per rx protocol 04/25/18 09:00 05/18/18 10:14 Warfarin Sodium (Coumadin) 4 mg COUMADIN ONCE PO 05/01/18 17:00 05/01/18 17:01 Tim Andrade MD May 01, 2018 16:57
[2018-05-01] MEDS ORDERED: Warfarin Sodium 4mg PO ONE (17:00)
[2018-05-01] MEDS: Piperacillin/Tazobactam 3.375 GM in NS 110 ML IVPB SCH (18:20)
[2018-05-01 20:00] VITALS: BP 152/90
[2018-05-02] VITALS: BP 129/67
[2018-05-02] MEDS: Piperacillin/Tazobactam 3.375 GM in NS 110 ML IVPB SCH ×4 (00:56→23:47)
[2018-05-02] MEDS: Vancomycin 750mg/NS 250ml IVPB SCH ×2 (02:38→14:24)
[2018-05-02 04:00] VITALS: BP 158/81
[2018-05-02] MEDS: Metoclopramide 10mg/10ml Liq GT SCH ×4 (05:34→20:25)
[2018-05-02 07:59] LABS: BASOPHILS % (AUTO) 0.9 % (0.0-2.0); EOSINOPHILS % (AUTO) 0.6 % (0.0-3.0); HEMATOCRIT 34.5 % (42.0-52.0); HEMOGLOBIN 10.9 G/DL (14.2-18.0); LYMPHOCYTES % (AUTO) 12.2 % (20.0-45.0); MEAN CORPUSCULAR VOLUME 81 FL (80-99); MONOCYTES % (AUTO) 10.9 % (1.0-10.0); NEUTROPHILS % (AUTO) 75.5 % (45.0-75.0); PLATELET COUNT 358 K/UL (150-450); RED BLOOD COUNT 4.28 M/UL (4.70-6.10); RED CELL DISTRIBUTION WIDTH 15.5 % (11.6-14.8); WHITE BLOOD COUNT 7.2 K/UL (4.8-10.8)
[2018-05-02 08:00] VITALS: BP 155/108
[2018-05-02 08:09] LABS: INR 2.8 (0.9-1.1)
[2018-05-02 08:32] LABS: ANION GAP 8 mmol/L (5-15); BLOOD UREA NITROGEN 15 mg/dL (7-18); CALCIUM 8.6 MG/DL (8.5-10.1); CARBON DIOXIDE 27 MMOL/L (21-32); CHLORIDE 111 MMOL/L (98-107); CREATININE 0.9 MG/DL (0.55-1.30); POTASSIUM 3.7 MMOL/L (3.5-5.1); SODIUM 146 MMOL/L (136-145)
[2018-05-02] MEDS: Metoprolol Tartrate 12.5mg TAB ORAL SCH ×2 (09:39→20:25)
--- NOTE | 2018-05-02 10:17 | GI Progress Note ---
Assessment/Plan Problems: (1) Encounter for PEG (percutaneous endoscopic gastrostomy) ICD Codes: Z43.1 - Encounter for attention to gastrostomy SNOMED: 378609090, 603375083 (2) Dysphagia ICD Codes: R13.10 - Dysphagia, unspecified SNOMED: 51498500, 807694984 (3) Anemia ICD Codes: D64.9 - Anemia, unspecified SNOMED: 055949755 (4) Gastroparesis ICD Codes: K31.84 - Gastroparesis SNOMED: 834305601 Status: stable Status Narrative Discussed with Dr. Medeiros. Assessment/Plan s/p EGD PEG in December 2017. per report, patient is not tolerating GTFs >> pt now has normal residuals labs reviewed >> Hyperglycemia >> Hg A1C normal cont GTFs per RD to goal, tolerating on reglan ATC ppi prn transfusions fu labs dc planning The patient was seen and examined at bedside and all new and available data was reviewed in the patients chart. I agree with the above findings, impression and plan. (Patient seen earlier today. Signature stamp does not reflect patient encounter time.). - Davian Medeiros MD Subjective Subjective limited Objective Last 24 Hour Vital Signs Date Time Temp Pulse Resp B/P (MAP) Pulse Ox O2 Delivery O2 Flow Rate FiO2 05/02/18 09:39 113 155/108 05/02/18 08:00 97.5 113 20 155/108 100 Room Air 97.5 05/02/18 04:00 97.7 100 20 158/81 96 Room Air 97.7 05/02/18 04:00 101 05/02/18 00:00 99.3 92 20 129/67 98 Room Air 99.3 05/02/18 00:00 93 05/01/18 21:00 110 152/90 05/01/18 20:00 99.0 110 20 152/90 96 Room Air 99.0 05/01/18 20:00 103 05/01/18 16:00 104 05/01/18 16:00 97.6 105 20 145/94 96 Room Air 97.6 05/01/18 12:00 98.7 101 20 155/84 100 Room Air 98.7 05/01/18 12:00 97 Intake and Output 05/01/18 05/02/18 19:00 07:00 Intake Total 325 ml Output Total 600 ml 600 ml Balance -600 ml -275 ml Tube Feeding 325 ml Output Urine Total 600 ml 600 ml # Bowel Movements 1 1 Laboratory Tests Test 05/01/18 11:50 05/02/18 07:16 Random Vancomycin Level 18.2 ug/mL White Blood Count 7.2 K/UL (4.8-10.8) Red Blood Count 4.28 M/UL (4.70-6.10) L Hemoglobin 10.9 G/DL (14.2-18.0) L Hematocrit 34.5 % (42.0-52.0) L Mean Corpuscular Volume 81 FL (80-99) Mean Corpuscular Hemoglobin 25.5 PG (27.0-31.0) L Mean Corpuscular Hemoglobin Concent 31.6 G/DL (32.0-36.0) L Red Cell Distribution Width 15.5 % (11.6-14.8) H Platelet Count 358 K/UL (150-450) Mean Platelet Volume 6.6 FL (6.5-10.1) Neutrophils (%) (Auto) 75.5 % (45.0-75.0) H Lymphocytes (%) (Auto) 12.2 % (20.0-45.0) L Monocytes (%) (Auto) 10.9 % (1.0-10.0) H Eosinophils (%) (Auto) 0.6 % (0.0-3.0) Basophils (%) (Auto) 0.9 % (0.0-2.0) Prothrombin Time 29.2 SEC (9.30-11.50) H Prothromb Time International Ratio 2.8 (0.9-1.1) H Sodium Level 146 MMOL/L (136-145) H Potassium Level 3.7 MMOL/L (3.5-5.1) Chloride Level 111 MMOL/L (98-107) H Carbon Dioxide Level 27 MMOL/L (21-32) Anion Gap 8 mmol/L (5-15) Blood Urea Nitrogen 15 mg/dL (7-18) Creatinine 0.9 MG/DL (0.55-1.30) Estimat Glomerular Filtration Rate mL/min (>60) Glucose Level 114 MG/DL (74-106) H Calcium Level 8.6 MG/DL (8.5-10.1) Height (Feet): 5 Height (Inches): 5.00 Weight (Pounds): 118 General Appearance: alert Cardiovascular: normal rate Respiratory/Chest: normal breath sounds, no respiratory distress Abdominal Exam: site - c/d/i Mega Hernandez NP May 02, 2018 10:17
--- NOTE | 2018-05-02 10:21 | Pulmonology Progress Note ---
Assessment/Plan Assessment/Plan IMPRESSION extensive left sided pneumonia (lobar/basilar) respiratory failure hypoxemia chronic encephalopathy aspiration pneumonia GT reduced LOC PLAN dc planning noted cxr as needed for now regimen of antibiotics reviewed suction PRN labs noted and reviewed aspiration precautions as is feeds tolerated; per review overnight DVT prophylaxis as is impression, plan, and exam edited and reviewed in detail care discussed with RN Subjective ROS Limited/Unobtainable: Yes Allergies: Coded Allergies: No Known Allergies (Unverified , 12/22/17) Subjective no distress no significant change on oxygen and feeds care noted Objective Last 24 Hour Vital Signs Date Time Temp Pulse Resp B/P (MAP) Pulse Ox O2 Delivery O2 Flow Rate FiO2 05/02/18 09:39 113 155/108 05/02/18 08:00 97.5 113 20 155/108 100 Room Air 97.5 05/02/18 04:00 97.7 100 20 158/81 96 Room Air 97.7 05/02/18 04:00 101 05/02/18 00:00 99.3 92 20 129/67 98 Room Air 99.3 05/02/18 00:00 93 05/01/18 21:00 110 152/90 05/01/18 20:00 99.0 110 20 152/90 96 Room Air 99.0 05/01/18 20:00 103 05/01/18 16:00 104 05/01/18 16:00 97.6 105 20 145/94 96 Room Air 97.6 05/01/18 12:00 98.7 101 20 155/84 100 Room Air 98.7 05/01/18 12:00 97 Intake and Output 05/01/18 05/02/18 19:00 07:00 Intake Total 325 ml Output Total 600 ml 600 ml Balance -600 ml -275 ml Tube Feeding 325 ml Output Urine Total 600 ml 600 ml # Bowel Movements 1 1 Objective WDWN NAD moderate breath sounds bilaterally- without wheeze or rhonchi [id number] without MRG NABS nontender no HSM no CCE GT confused; reduced ROM nonfocal reviewed Laboratory Tests 05/01/18 11:50: Random Vancomycin Level 18.2 05/02/18 07:16: White Blood Count 7.2, Red Blood Count 4.28L, Hemoglobin 10.9L, Hematocrit 34.5L , Mean Corpuscular Volume 81, Mean Corpuscular Hemoglobin 25.5L, Mean Corpuscular Hemoglobin Concent 31.6L, Red Cell Distribution Width 15.5H, Platelet Count 358, Mean Platelet Volume 6.6, Neutrophils (%) (Auto) 75.5H, Lymphocytes (%) (Auto) 12.2L, Monocytes (%) (Auto) 10.9H, Eosinophils (%) (Auto ) 0.6, Basophils (%) (Auto) 0.9, Prothrombin Time 29.2H, Prothromb Time International Ratio 2.8H, Sodium Level 146H, Potassium Level 3.7, Chloride Level 111H, Carbon Dioxide Level 27, Anion Gap 8, Blood Urea Nitrogen 15, Creatinine 0.9, Estimat Glomerular Filtration Rate , Glucose Level 114H, Calcium Level 8.6 Current Medications Medications (Trade) Dose Ordered Sig/Mckenzie Route PRN Reason Start Time Stop Time Status Last Admin Dose Admin Acetaminophen (Tylenol) 650 mg Q4H PRN ORAL Mild Pain (Pain Scale 1-3) 04/24/18 21:00 05/17/18 20:59 Dextrose (Dextrose 50%) 25 ml STAT PRN IV Hypoglycemia 04/24/18 21:00 05/17/18 20:59 Dextrose (Dextrose 50%) 50 ml STAT PRN IV Hypoglycemia 04/24/18 21:00 05/17/18 20:59 Metoclopramide HCl (Reglan) 10 mg AC+HS GT 04/30/18 16:30 05/30/18 16:29 05/02/18 05:34 Metoprolol Tartrate (Lopressor) 12.5 mg Q12HR ORAL 04/26/18 22:30 05/26/18 22:29 05/02/18 09:39 Pantoprazole (Protonix) 40 mg DAILY ORAL 04/26/18 09:00 05/26/18 08:59 05/02/18 09:39 Piperacillin Sod/ Tazobactam Sod 3.375 gm/Sodium Chloride 110 ml @ 27.5 mls/hr Q8HR@0000,0800,1600 IVPB 05/01/18 16:00 05/08/18 15:59 05/02/18 09:38 Quetiapine Fumarate (SEROquel) 25 mg Q6H PRN ORAL For Anxiety 04/30/18 12:00 05/30/18 11:59 04/30/18 12:04 Vancomycin HCl (Vanco rx to dose) 1 ea DAILY PRN MISC Per rx protocol 04/25/18 09:00 05/17/18 20:59 Vancomycin/Sodium Chloride 250 ml @ 166.667 mls/hr Q12HR@0200,1400 IVPB 05/01/18 14:00 05/06/18 13:59 05/02/18 02:38 Warfarin Sodium (Coumadin per pharmacy) 1 ea DAILY PRN MISC Per rx protocol 04/25/18 09:00 05/18/18 10:14 Warfarin Sodium (Coumadin) 4 mg COUMADIN ONCE PO 05/02/18 17:00 05/02/18 17:01 Tim Andrade MD May 02, 2018 10:21
[2018-05-02 12:00] VITALS: BP 148/86
--- NOTE | 2018-05-02 12:17 | General Progress Note ---
Assessment/Plan Status: stable Assessment/Plan encephalopathy Agitation -Seroquel 25mg gt q 6hr - continued on restraints for now Subjective Date patient seen: May 02, 2018 Neurologic/Psychiatric: Reports: anxiety, depressed, emotional problems Allergies: Coded Allergies: No Known Allergies (Unverified , 12/22/17) Subjective the pt was calm during my eval. d/w nurse to dc restraints. Objective Last 24 Hour Vital Signs Date Time Temp Pulse Resp B/P (MAP) Pulse Ox O2 Delivery O2 Flow Rate FiO2 05/02/18 09:39 113 155/108 05/02/18 08:00 97.5 113 20 155/108 100 Room Air 97.5 05/02/18 07:38 108 05/02/18 04:00 97.7 100 20 158/81 96 Room Air 97.7 05/02/18 04:00 101 05/02/18 00:00 99.3 92 20 129/67 98 Room Air 99.3 05/02/18 00:00 93 05/01/18 21:00 110 152/90 05/01/18 20:00 99.0 110 20 152/90 96 Room Air 99.0 05/01/18 20:00 103 05/01/18 16:00 104 05/01/18 16:00 97.6 105 20 145/94 96 Room Air 97.6 Intake and Output 05/01/18 05/02/18 19:00 07:00 Intake Total 390 ml Output Total 600 ml 600 ml Balance -600 ml -210 ml Tube Feeding 390 ml Output Urine Total 600 ml 600 ml # Bowel Movements 1 1 Laboratory Tests 05/02/18 07:16: White Blood Count 7.2, Red Blood Count 4.28L, Hemoglobin 10.9L, Hematocrit 34.5L , Mean Corpuscular Volume 81, Mean Corpuscular Hemoglobin 25.5L, Mean Corpuscular Hemoglobin Concent 31.6L, Red Cell Distribution Width 15.5H, Platelet Count 358, Mean Platelet Volume 6.6, Neutrophils (%) (Auto) 75.5H, Lymphocytes (%) (Auto) 12.2L, Monocytes (%) (Auto) 10.9H, Eosinophils (%) (Auto ) 0.6, Basophils (%) (Auto) 0.9, Prothrombin Time 29.2H, Prothromb Time International Ratio 2.8H, Sodium Level 146H, Potassium Level 3.7, Chloride Level 111H, Carbon Dioxide Level 27, Anion Gap 8, Blood Urea Nitrogen 15, Creatinine 0.9, Estimat Glomerular Filtration Rate , Glucose Level 114H, Calcium Level 8.6 Height (Feet): 5 Height (Inches): 5.00 Weight (Pounds): 118 General Appearance: no apparent distress, alert, confused Nan Foreman M.D. May 02, 2018 12:17
--- NOTE | 2018-05-02 14:03 | General Progress Note ---
Assessment/Plan Assessment/Plan Aspiration Pneumonia - IV Abx On Coumadin per Pharmacy due to h/o DVT. INR therapeutic. Repeat CXR improved. To [facility]. V Tach - Cardiology noted. DC to SNF? [facility] "No beds". TF resumed @ 30 ml/hr. High residuals. Needs PEJ. GI to advise re PEJ. DC planning Subjective Allergies: Coded Allergies: No Known Allergies (Unverified , 12/22/17) Subjective TF @ 60 ml/hr tolerated Objective Last 24 Hour Vital Signs Date Time Temp Pulse Resp B/P (MAP) Pulse Ox O2 Delivery O2 Flow Rate FiO2 05/02/18 12:00 97.7 106 20 148/86 99 Room Air 97.7 05/02/18 11:53 111 05/02/18 09:39 113 155/108 05/02/18 08:00 97.5 113 20 155/108 100 Room Air 97.5 05/02/18 07:38 108 05/02/18 04:00 97.7 100 20 158/81 96 Room Air 97.7 05/02/18 04:00 101 05/02/18 00:00 99.3 92 20 129/67 98 Room Air 99.3 05/02/18 00:00 93 05/01/18 21:00 110 152/90 05/01/18 20:00 99.0 110 20 152/90 96 Room Air 99.0 05/01/18 20:00 103 05/01/18 16:00 104 05/01/18 16:00 97.6 105 20 145/94 96 Room Air 97.6 Intake and Output 05/01/18 05/02/18 19:00 07:00 Intake Total 390 ml Output Total 600 ml 600 ml Balance -600 ml -210 ml Tube Feeding 390 ml Output Urine Total 600 ml 600 ml # Bowel Movements 1 1 Laboratory Tests 05/02/18 07:16: White Blood Count 7.2, Red Blood Count 4.28L, Hemoglobin 10.9L, Hematocrit 34.5L , Mean Corpuscular Volume 81, Mean Corpuscular Hemoglobin 25.5L, Mean Corpuscular Hemoglobin Concent 31.6L, Red Cell Distribution Width 15.5H, Platelet Count 358, Mean Platelet Volume 6.6, Neutrophils (%) (Auto) 75.5H, Lymphocytes (%) (Auto) 12.2L, Monocytes (%) (Auto) 10.9H, Eosinophils (%) (Auto ) 0.6, Basophils (%) (Auto) 0.9, Prothrombin Time 29.2H, Prothromb Time International Ratio 2.8H, Sodium Level 146H, Potassium Level 3.7, Chloride Level 111H, Carbon Dioxide Level 27, Anion Gap 8, Blood Urea Nitrogen 15, Creatinine 0.9, Estimat Glomerular Filtration Rate , Glucose Level 114H, Calcium Level 8.6 Height (Feet): 5 Height (Inches): 5.00 Weight (Pounds): 118 Objective Monitor - episode of Vtach CV RR Lungs B Alana Gonzales SNT. BS + E No CCE Ervin Mario MD May 02, 2018 14:03
[2018-05-02] MEDS ORDERED: Tubing IV Secondary IV ONE (15:35)
[2018-05-02] MEDS ORDERED: NS 500ML ONE (15:35)
[2018-05-02 16:00] VITALS: BP 137/81
[2018-05-02] MEDS ORDERED: Warfarin Sodium 4mg PO ONE (17:00)
[2018-05-02 20:00] VITALS: BP 145/76
[2018-05-03] VITALS: BP 146/81
[2018-05-03] MEDS: Vancomycin 750mg/NS 250ml IVPB SCH ×2 (02:01→14:13)
[2018-05-03 04:00] VITALS: BP 123/86
[2018-05-03] MEDS: Metoclopramide 10mg/10ml Liq GT SCH ×4 (06:01→21:47)
[2018-05-03 06:49] LABS: INR 2.8 (0.9-1.1)
[2018-05-03 06:58] LABS: ANION GAP 7 mmol/L (5-15); BLOOD UREA NITROGEN 15 mg/dL (7-18); CALCIUM 9.1 MG/DL (8.5-10.1); CARBON DIOXIDE 29 MMOL/L (21-32); CHLORIDE 112 MMOL/L (98-107); POTASSIUM 3.9 MMOL/L (3.5-5.1); SODIUM 147 MMOL/L (136-145)
[2018-05-03 06:59] LABS: BASOPHILS % (AUTO) 0.5 % (0.0-2.0); EOSINOPHILS % (AUTO) 2.1 % (0.0-3.0); HEMATOCRIT 35.7 % (42.0-52.0); HEMOGLOBIN 12.1 G/DL (14.2-18.0); LYMPHOCYTES % (AUTO) 16.8 % (20.0-45.0); MEAN CORPUSCULAR VOLUME 81 FL (80-99); MONOCYTES % (AUTO) 11.5 % (1.0-10.0); NEUTROPHILS % (AUTO) 69.1 % (45.0-75.0); PLATELET COUNT 349 K/UL (150-450); RED BLOOD COUNT 4.39 M/UL (4.70-6.10); RED CELL DISTRIBUTION WIDTH 15.1 % (11.6-14.8); WHITE BLOOD COUNT 6.4 K/UL (4.8-10.8)
[2018-05-03 08:00] VITALS: BP 120/82
[2018-05-03] MEDS: Piperacillin/Tazobactam 3.375 GM in NS 110 ML IVPB SCH ×2 (10:34→16:28)
[2018-05-03] MEDS: Metoprolol Tartrate 12.5mg TAB ORAL SCH ×2 (10:35→21:47)
--- NOTE | 2018-05-03 11:22 | GI Progress Note ---
Assessment/Plan Problems: (1) Encounter for PEG (percutaneous endoscopic gastrostomy) ICD Codes: Z43.1 - Encounter for attention to gastrostomy SNOMED: 874078720, 174348925 (2) Dysphagia ICD Codes: R13.10 - Dysphagia, unspecified SNOMED: 86727867, 193298774 (3) Anemia ICD Codes: D64.9 - Anemia, unspecified SNOMED: 365464219 (4) Gastroparesis ICD Codes: K31.84 - Gastroparesis SNOMED: 336599585 Status: stable Status Narrative Discussed with Dr. Medeiros. Assessment/Plan s/p EGD PEG in December 2017. per report, patient is not tolerating GTFs >> pt now has normal residuals labs reviewed >> Hyperglycemia >> Hg A1C normal cont GTFs per RD to goal, tolerating cont reglan ATC ppi prn transfusions fu labs dc planning The patient was seen and examined at bedside and all new and available data was reviewed in the patients chart. I agree with the above findings, impression and plan. (Patient seen earlier today. Signature stamp does not reflect patient encounter time.). - Davian Medeiros MD Subjective Subjective limited Objective Last 24 Hour Vital Signs Date Time Temp Pulse Resp B/P (MAP) Pulse Ox O2 Delivery O2 Flow Rate FiO2 05/03/18 10:35 90 120/82 05/03/18 04:00 97.7 92 20 123/86 98 Room Air 97.7 05/03/18 04:00 94 05/03/18 00:00 89 05/03/18 00:00 97.8 91 20 146/81 97 Room Air 97.8 05/02/18 21:00 95 Nasal Cannula 1.0 24 05/02/18 21:00 Nasal Cannula 1.0 24 05/02/18 20:25 97 145/76 05/02/18 20:00 96 05/02/18 20:00 97.7 97 20 145/76 97 Room Air 97.7 05/02/18 16:00 97.7 106 20 137/81 98 Room Air 97.7 05/02/18 15:17 103 05/02/18 12:00 97.7 106 20 148/86 99 Room Air 97.7 05/02/18 11:53 111 Intake and Output 05/02/18 05/03/18 19:00 07:00 Intake Total 1435.834 ml 425 ml Output Total 550 ml 1000 ml Balance 885.834 ml -575 ml Free Water 250 ml 100 ml IV Total 470.834 ml Tube Feeding 715 ml 325 ml Output Urine Total 550 ml 1000 ml Laboratory Tests Test 05/03/18 01:15 05/03/18 05:10 Vancomycin Level Trough 18.8 ug/mL (5.0-12.0) H White Blood Count 6.4 K/UL (4.8-10.8) Red Blood Count 4.39 M/UL (4.70-6.10) L Hemoglobin 12.1 G/DL (14.2-18.0) L Hematocrit 35.7 % (42.0-52.0) L Mean Corpuscular Volume 81 FL (80-99) Mean Corpuscular Hemoglobin 27.5 PG (27.0-31.0) Mean Corpuscular Hemoglobin Concent 33.8 G/DL (32.0-36.0) Red Cell Distribution Width 15.1 % (11.6-14.8) H Platelet Count 349 K/UL (150-450) Mean Platelet Volume 6.7 FL (6.5-10.1) Neutrophils (%) (Auto) 69.1 % (45.0-75.0) Lymphocytes (%) (Auto) 16.8 % (20.0-45.0) L Monocytes (%) (Auto) 11.5 % (1.0-10.0) H Eosinophils (%) (Auto) 2.1 % (0.0-3.0) Basophils (%) (Auto) 0.5 % (0.0-2.0) Prothrombin Time 29.3 SEC (9.30-11.50) H Prothromb Time International Ratio 2.8 (0.9-1.1) H Sodium Level 147 MMOL/L (136-145) H Potassium Level 3.9 MMOL/L (3.5-5.1) Chloride Level 112 MMOL/L (98-107) H Carbon Dioxide Level 29 MMOL/L (21-32) Anion Gap 7 mmol/L (5-15) Blood Urea Nitrogen 15 mg/dL (7-18) Creatinine 1.0 MG/DL (0.55-1.30) Estimat Glomerular Filtration Rate mL/min (>60) Glucose Level 112 MG/DL (74-106) H Calcium Level 9.1 MG/DL (8.5-10.1) Height (Feet): 5 Height (Inches): 5.00 Weight (Pounds): 118 General Appearance: alert Cardiovascular: normal rate Respiratory/Chest: normal breath sounds, no respiratory distress Abdominal Exam: normal bowel sounds, non tender, soft, GT site - c/d/i Extremities: non-tender Mega Hernandez NP May 03, 2018 11:22
--- NOTE | 2018-05-03 11:34 | General Progress Note ---
Assessment/Plan Status: stable, progressing Assessment/Plan encephalopathy Agitation -Seroquel 25mg gt q 6hr -dc restraints Subjective Date patient seen: May 03, 2018 Allergies: Coded Allergies: No Known Allergies (Unverified , 12/22/17) Subjective the pt was calm. no restraints. Objective Last 24 Hour Vital Signs Date Time Temp Pulse Resp B/P (MAP) Pulse Ox O2 Delivery O2 Flow Rate FiO2 05/03/18 10:35 90 120/82 05/03/18 04:00 97.7 92 20 123/86 98 Room Air 97.7 05/03/18 04:00 94 05/03/18 00:00 89 05/03/18 00:00 97.8 91 20 146/81 97 Room Air 97.8 05/02/18 21:00 95 Nasal Cannula 1.0 24 05/02/18 21:00 Nasal Cannula 1.0 24 05/02/18 20:25 97 145/76 05/02/18 20:00 96 05/02/18 20:00 97.7 97 20 145/76 97 Room Air 97.7 05/02/18 16:00 97.7 106 20 137/81 98 Room Air 97.7 05/02/18 15:17 103 05/02/18 12:00 97.7 106 20 148/86 99 Room Air 97.7 05/02/18 11:53 111 Intake and Output 05/02/18 05/03/18 19:00 07:00 Intake Total 1435.834 ml 425 ml Output Total 550 ml 1000 ml Balance 885.834 ml -575 ml Free Water 250 ml 100 ml IV Total 470.834 ml Tube Feeding 715 ml 325 ml Output Urine Total 550 ml 1000 ml Laboratory Tests 05/03/18 01:15: Vancomycin Level Trough 18.8H 05/03/18 05:10: White Blood Count 6.4, Red Blood Count 4.39L, Hemoglobin 12.1L, Hematocrit 35.7L , Mean Corpuscular Volume 81, Mean Corpuscular Hemoglobin 27.5, Mean Corpuscular Hemoglobin Concent 33.8, Red Cell Distribution Width 15.1H, Platelet Count 349, Mean Platelet Volume 6.7, Neutrophils (%) (Auto) 69.1, Lymphocytes (%) (Auto) 16.8L, Monocytes (%) (Auto) 11.5H, Eosinophils (%) (Auto ) 2.1, Basophils (%) (Auto) 0.5, Prothrombin Time 29.3H, Prothromb Time International Ratio 2.8H, Sodium Level 147H, Potassium Level 3.9, Chloride Level 112H, Carbon Dioxide Level 29, Anion Gap 7, Blood Urea Nitrogen 15, Creatinine 1.0, Estimat Glomerular Filtration Rate , Glucose Level 112H, Calcium Level 9.1 Height (Feet): 5 Height (Inches): 5.00 Weight (Pounds): 118 General Appearance: WD/WN, no apparent distress, lethargic, confused Nan Foreman M.D. May 03, 2018 11:34
[2018-05-03 12:00] VITALS: BP 162/90
[2018-05-03 16:00] VITALS: BP 121/85
--- NOTE | 2018-05-03 16:36 | General Progress Note ---
Assessment/Plan Assessment/Plan Aspiration Pneumonia - IV Abx On Coumadin per Pharmacy due to h/o DVT. INR therapeutic. Repeat CXR improved. To [facility]. V Tach - Cardiology noted. DC to SNF? [facility] "No beds". TF resumed @ 30 ml/hr. High residuals. Needs PEJ. GI to advise re PEJ. DC planning Subjective Allergies: Coded Allergies: No Known Allergies (Unverified , 12/22/17) Subjective TF @ 60 ml/hr tolerated Objective Last 24 Hour Vital Signs Date Time Temp Pulse Resp B/P (MAP) Pulse Ox O2 Delivery O2 Flow Rate FiO2 05/03/18 12:00 97.7 92 20 162/90 97 Room Air 97.7 05/03/18 12:00 89 05/03/18 10:35 90 120/82 05/03/18 08:00 94 05/03/18 08:00 97.6 90 20 120/82 98 Room Air 97.6 05/03/18 04:00 97.7 92 20 123/86 98 Room Air 97.7 05/03/18 04:00 94 05/03/18 00:00 89 05/03/18 00:00 97.8 91 20 146/81 97 Room Air 97.8 05/02/18 21:00 95 Nasal Cannula 1.0 24 05/02/18 21:00 Nasal Cannula 1.0 24 05/02/18 20:25 97 145/76 05/02/18 20:00 96 05/02/18 20:00 97.7 97 20 145/76 97 Room Air 97.7 Intake and Output 05/02/18 05/03/18 19:00 07:00 Intake Total 1435.834 ml 425 ml Output Total 550 ml 1000 ml Balance 885.834 ml -575 ml Free Water 250 ml 100 ml IV Total 470.834 ml Tube Feeding 715 ml 325 ml Output Urine Total 550 ml 1000 ml Laboratory Tests 05/03/18 01:15: Vancomycin Level Trough 18.8H 05/03/18 05:10: White Blood Count 6.4, Red Blood Count 4.39L, Hemoglobin 12.1L, Hematocrit 35.7L , Mean Corpuscular Volume 81, Mean Corpuscular Hemoglobin 27.5, Mean Corpuscular Hemoglobin Concent 33.8, Red Cell Distribution Width 15.1H, Platelet Count 349, Mean Platelet Volume 6.7, Neutrophils (%) (Auto) 69.1, Lymphocytes (%) (Auto) 16.8L, Monocytes (%) (Auto) 11.5H, Eosinophils (%) (Auto ) 2.1, Basophils (%) (Auto) 0.5, Prothrombin Time 29.3H, Prothromb Time International Ratio 2.8H, Sodium Level 147H, Potassium Level 3.9, Chloride Level 112H, Carbon Dioxide Level 29, Anion Gap 7, Blood Urea Nitrogen 15, Creatinine 1.0, Estimat Glomerular Filtration Rate , Glucose Level 112H, Calcium Level 9.1 Height (Feet): 5 Height (Inches): 5.00 Weight (Pounds): 118 Objective Monitor - episode of Vtach CV RR Lungs B Alana Gonzales SNT. BS + E No CCE Ervin Mario MD May 03, 2018 16:36
[2018-05-03] MEDS ORDERED: Warfarin Sodium 3mg ORAL SCH (17:00)
--- NOTE | 2018-05-03 17:03 | Pulmonology Progress Note ---
Assessment/Plan Assessment/Plan IMPRESSION extensive left sided pneumonia (lobar/basilar) respiratory failure hypoxemia chronic encephalopathy aspiration pneumonia GT reduced LOC PLAN dc planning agreed to by pulm cxr as needed for now- monitor for change regimen of antibiotics reviewed suction PRN and elevate head labs noted and reviewed aspiration precautions as is feeds as tolerated; DVT prophylaxis as is impression, plan, and exam edited and reviewed in detail care discussed with RN Subjective Allergies: Coded Allergies: No Known Allergies (Unverified , 12/22/17) Subjective no distress no significant change on oxygen and feeds as prior care noted and reviewed Objective Last 24 Hour Vital Signs Date Time Temp Pulse Resp B/P (MAP) Pulse Ox O2 Delivery O2 Flow Rate FiO2 05/03/18 12:00 97.7 92 20 162/90 97 Room Air 97.7 05/03/18 12:00 89 05/03/18 10:35 90 120/82 05/03/18 08:00 94 05/03/18 08:00 97.6 90 20 120/82 98 Room Air 97.6 05/03/18 04:00 97.7 92 20 123/86 98 Room Air 97.7 05/03/18 04:00 94 05/03/18 00:00 89 05/03/18 00:00 97.8 91 20 146/81 97 Room Air 97.8 05/02/18 21:00 95 Nasal Cannula 1.0 24 05/02/18 21:00 Nasal Cannula 1.0 24 05/02/18 20:25 97 145/76 05/02/18 20:00 96 05/02/18 20:00 97.7 97 20 145/76 97 Room Air 97.7 Intake and Output 05/02/18 05/03/18 19:00 07:00 Intake Total 1435.834 ml 425 ml Output Total 550 ml 1000 ml Balance 885.834 ml -575 ml Free Water 250 ml 100 ml IV Total 470.834 ml Tube Feeding 715 ml 325 ml Output Urine Total 550 ml 1000 ml Objective WDWN NAD moderate breath sounds bilaterally- without wheeze or rhonchi [id number] without MRG NABS nontender no HSM no CCE GT confused; reduced ROM nonfocal reviewed Laboratory Tests 05/03/18 01:15: Vancomycin Level Trough 18.8H 05/03/18 05:10: White Blood Count 6.4, Red Blood Count 4.39L, Hemoglobin 12.1L, Hematocrit 35.7L , Mean Corpuscular Volume 81, Mean Corpuscular Hemoglobin 27.5, Mean Corpuscular Hemoglobin Concent 33.8, Red Cell Distribution Width 15.1H, Platelet Count 349, Mean Platelet Volume 6.7, Neutrophils (%) (Auto) 69.1, Lymphocytes (%) (Auto) 16.8L, Monocytes (%) (Auto) 11.5H, Eosinophils (%) (Auto ) 2.1, Basophils (%) (Auto) 0.5, Prothrombin Time 29.3H, Prothromb Time International Ratio 2.8H, Sodium Level 147H, Potassium Level 3.9, Chloride Level 112H, Carbon Dioxide Level 29, Anion Gap 7, Blood Urea Nitrogen 15, Creatinine 1.0, Estimat Glomerular Filtration Rate , Glucose Level 112H, Calcium Level 9.1 Current Medications Medications (Trade) Dose Ordered Sig/Mckenzie Route PRN Reason Start Time Stop Time Status Last Admin Dose Admin Acetaminophen (Tylenol) 650 mg Q4H PRN ORAL Mild Pain (Pain Scale 1-3) 04/24/18 21:00 05/17/18 20:59 Dextrose (Dextrose 50%) 25 ml STAT PRN IV Hypoglycemia 04/24/18 21:00 05/17/18 20:59 Dextrose (Dextrose 50%) 50 ml STAT PRN IV Hypoglycemia 04/24/18 21:00 05/17/18 20:59 Metoclopramide HCl (Reglan) 10 mg AC+HS GT 04/30/18 16:30 05/30/18 16:29 05/03/18 16:28 Metoprolol Tartrate (Lopressor) 12.5 mg Q12HR ORAL 04/26/18 22:30 05/26/18 22:29 05/03/18 10:35 Pantoprazole (Protonix) 40 mg DAILY ORAL 04/26/18 09:00 05/26/18 08:59 05/03/18 10:34 Piperacillin Sod/ Tazobactam Sod 3.375 gm/Sodium Chloride 110 ml @ 27.5 mls/hr Q8HR@0000,0800,1600 IVPB 05/01/18 16:00 05/08/18 15:59 05/03/18 16:28 Quetiapine Fumarate (SEROquel) 25 mg Q6H PRN ORAL For Anxiety 04/30/18 12:00 05/30/18 11:59 05/03/18 14:13 Vancomycin HCl (Vanco rx to dose) 1 ea DAILY PRN MISC Per rx protocol 04/25/18 09:00 05/17/18 20:59 Vancomycin/Sodium Chloride 250 ml @ 166.667 mls/hr Q12HR@0200,1400 IVPB 05/01/18 14:00 05/06/18 13:59 05/03/18 14:13 Warfarin Sodium (Coumadin per pharmacy) 1 ea DAILY PRN MISC Per rx protocol 04/25/18 09:00 05/18/18 10:14 Warfarin Sodium (Coumadin) 3 mg COUMADIN ORAL 05/03/18 17:00 05/03/18 18:00 Tim Andrade MD May 03, 2018 17:03
[2018-05-03 20:00] VITALS: BP 140/80
[2018-05-04] VITALS: BP 145/90
[2018-05-04] MEDS: Piperacillin/Tazobactam 3.375 GM in NS 110 ML IVPB SCH ×5 (02:01→23:41)
[2018-05-04] MEDS: Vancomycin 750mg/NS 250ml IVPB SCH ×2 (02:02→15:02)
[2018-05-04 04:00] VITALS: BP 132/78
[2018-05-04] MEDS: Metoclopramide 10mg/10ml Liq GT SCH ×4 (05:34→20:55)
--- NOTE | 2018-05-04 07:50 | General Progress Note ---
Assessment/Plan Assessment/Plan Aspiration Pneumonia - IV Abx On Coumadin per Pharmacy due to h/o DVT. INR therapeutic. Repeat CXR improved. To [facility]. V Tach - Cardiology noted. DC to SNF? [facility] "No beds". TF resumed @ 30 ml/hr. High residuals. Needs PEJ. GI to advise re PEJ. DC planning. [facility] [place] Subjective Allergies: Coded Allergies: No Known Allergies (Unverified , 12/22/17) Subjective TF @ 60 ml/hr tolerated Objective Last 24 Hour Vital Signs Date Time Temp Pulse Resp B/P (MAP) Pulse Ox O2 Delivery O2 Flow Rate FiO2 05/04/18 00:00 97.3 87 23 145/90 98 Room Air 97.3 05/04/18 00:00 102 05/03/18 21:47 121 121/85 05/03/18 20:00 101 05/03/18 20:00 98.2 87 22 140/80 98 Room Air 98.2 05/03/18 16:00 121 05/03/18 16:00 98.1 87 18 121/85 98 Room Air 98.1 05/03/18 12:00 97.7 92 20 162/90 97 Room Air 97.7 05/03/18 12:00 89 05/03/18 10:35 90 120/82 05/03/18 08:00 94 05/03/18 08:00 97.6 90 20 120/82 98 Room Air 97.6 Intake and Output 05/03/18 05/04/18 19:00 07:00 Intake Total 65 ml 620 ml Output Total 700 ml Balance -635 ml 620 ml Free Water 100 ml Tube Feeding 65 ml 520 ml Output Urine Total 700 ml Height (Feet): 5 Height (Inches): 5.00 Weight (Pounds): 118 Objective Monitor - episode of Vtach CV RR Lungs B Alana BATISTAT. BS + E No YONGE Ervin Mario MD May 04, 2018 07:50
[2018-05-04 08:00] VITALS: BP 147/86
[2018-05-04] MEDS: Metoprolol Tartrate 12.5mg TAB ORAL SCH ×2 (09:11→20:55)
[2018-05-04] MEDS ORDERED: NS 500ML ONE (09:47)
[2018-05-04] MEDS ORDERED: Tubing IV Secondary IV ONE (09:47)
[2018-05-04] MEDS ORDERED: Sterile Water For Irrig 2000ml IRRIG ONE (09:47)
[2018-05-04 09:56] LABS: ANION GAP 9 mmol/L (5-15); BLOOD UREA NITROGEN 16 mg/dL (7-18); CALCIUM 8.4 MG/DL (8.5-10.1); CARBON DIOXIDE 27 MMOL/L (21-32); CHLORIDE 110 MMOL/L (98-107); CREATININE 0.8 MG/DL (0.55-1.30); POTASSIUM 3.9 MMOL/L (3.5-5.1); SODIUM 146 MMOL/L (136-145)
[2018-05-04 09:57] LABS: BASOPHILS % (AUTO) 0.7 % (0.0-2.0); EOSINOPHILS % (AUTO) 4.5 % (0.0-3.0); HEMATOCRIT 36.1 % (42.0-52.0); HEMOGLOBIN 11.5 G/DL (14.2-18.0); LYMPHOCYTES % (AUTO) 19.5 % (20.0-45.0); MEAN CORPUSCULAR VOLUME 81 FL (80-99); MONOCYTES % (AUTO) 11.3 % (1.0-10.0); PLATELET COUNT 346 K/UL (150-450); RED BLOOD COUNT 4.43 M/UL (4.70-6.10); RED CELL DISTRIBUTION WIDTH 15.1 % (11.6-14.8); WHITE BLOOD COUNT 5.6 K/UL (4.8-10.8)
[2018-05-04 09:59] LABS: INR 2.7 (0.9-1.1)
--- NOTE | 2018-05-04 10:36 | GI Progress Note ---
Assessment/Plan Problems: (1) Encounter for PEG (percutaneous endoscopic gastrostomy) ICD Codes: Z43.1 - Encounter for attention to gastrostomy SNOMED: 267324051, 179673672 (2) Dysphagia ICD Codes: R13.10 - Dysphagia, unspecified SNOMED: 93666215, 816140793 (3) Anemia ICD Codes: D64.9 - Anemia, unspecified SNOMED: 344554721 (4) Gastroparesis ICD Codes: K31.84 - Gastroparesis SNOMED: 851687870 Status: stable Status Narrative Discussed with Dr. Medeiros. Assessment/Plan s/p EGD PEG in December 2017. per report, patient is not tolerating GTFs >> pt now has normal residuals labs reviewed >> Hyperglycemia >> Hg A1C normal cont GTFs per RD to goal, tolerating cont reglan ATC ppi prn transfusions fu labs dc planning The patient was seen and examined at bedside and all new and available data was reviewed in the patients chart. I agree with the above findings, impression and plan. (Patient seen earlier today. Signature stamp does not reflect patient encounter time.). - Davian Medeiros MD Subjective Subjective limited Objective Last 24 Hour Vital Signs Date Time Temp Pulse Resp B/P (MAP) Pulse Ox O2 Delivery O2 Flow Rate FiO2 05/04/18 09:11 99 132/78 05/04/18 08:00 98.4 102 20 147/86 98 Room Air 98.4 05/04/18 04:00 97.8 87 21 132/78 98 Room Air 97.8 05/04/18 04:00 99 05/04/18 00:00 97.3 87 23 145/90 98 Room Air 97.3 05/04/18 00:00 102 05/03/18 21:47 121 121/85 05/03/18 20:00 101 05/03/18 20:00 98.2 87 22 140/80 98 Room Air 98.2 05/03/18 16:00 121 05/03/18 16:00 98.1 87 18 121/85 98 Room Air 98.1 05/03/18 12:00 97.7 92 20 162/90 97 Room Air 97.7 05/03/18 12:00 89 Intake and Output 05/03/18 05/04/18 19:00 07:00 Intake Total 65 ml 980 ml Output Total 700 ml Balance -635 ml 980 ml Free Water 200 ml Tube Feeding 65 ml 780 ml Output Urine Total 700 ml Laboratory Tests Test 05/04/18 08:10 White Blood Count 5.6 K/UL (4.8-10.8) Red Blood Count 4.43 M/UL (4.70-6.10) L Hemoglobin 11.5 G/DL (14.2-18.0) L Hematocrit 36.1 % (42.0-52.0) L Mean Corpuscular Volume 81 FL (80-99) Mean Corpuscular Hemoglobin 25.9 PG (27.0-31.0) L Mean Corpuscular Hemoglobin Concent 31.8 G/DL (32.0-36.0) L Red Cell Distribution Width 15.1 % (11.6-14.8) H Platelet Count 346 K/UL (150-450) Mean Platelet Volume 6.6 FL (6.5-10.1) Neutrophils (%) (Auto) 64.0 % (45.0-75.0) Lymphocytes (%) (Auto) 19.5 % (20.0-45.0) L Monocytes (%) (Auto) 11.3 % (1.0-10.0) H Eosinophils (%) (Auto) 4.5 % (0.0-3.0) H Basophils (%) (Auto) 0.7 % (0.0-2.0) Prothrombin Time 28.4 SEC (9.30-11.50) H Prothromb Time International Ratio 2.7 (0.9-1.1) H Sodium Level 146 MMOL/L (136-145) H Potassium Level 3.9 MMOL/L (3.5-5.1) Chloride Level 110 MMOL/L (98-107) H Carbon Dioxide Level 27 MMOL/L (21-32) Anion Gap 9 mmol/L (5-15) Blood Urea Nitrogen 16 mg/dL (7-18) Creatinine 0.8 MG/DL (0.55-1.30) Estimat Glomerular Filtration Rate mL/min (>60) Glucose Level 112 MG/DL (74-106) H Calcium Level 8.4 MG/DL (8.5-10.1) L Height (Feet): 5 Height (Inches): 5.00 Weight (Pounds): 118 General Appearance: WD/WN, no apparent distress, alert Cardiovascular: normal rate Respiratory/Chest: normal breath sounds, no respiratory distress Abdominal Exam: normal bowel sounds, non tender, soft, GT site - c/d/i Extremities: non-tender Mega Hernandez NP May 04, 2018 10:36
--- NOTE | 2018-05-04 10:39 | General Progress Note ---
Assessment/Plan Assessment/Plan encephalopathy Agitation -Seroquel 25mg gt q 6hr -dc restraints Subjective Date patient seen: May 04, 2018 Neurologic/Psychiatric: Reports: anxiety, depressed, emotional problems Allergies: Coded Allergies: No Known Allergies (Unverified , 12/22/17) Subjective the pt was calm. no restraints. Objective Last 24 Hour Vital Signs Date Time Temp Pulse Resp B/P (MAP) Pulse Ox O2 Delivery O2 Flow Rate FiO2 05/04/18 09:11 99 132/78 05/04/18 08:00 98.4 102 20 147/86 98 Room Air 98.4 05/04/18 04:00 97.8 87 21 132/78 98 Room Air 97.8 05/04/18 04:00 99 05/04/18 00:00 97.3 87 23 145/90 98 Room Air 97.3 05/04/18 00:00 102 05/03/18 21:47 121 121/85 05/03/18 20:00 101 05/03/18 20:00 98.2 87 22 140/80 98 Room Air 98.2 05/03/18 16:00 121 05/03/18 16:00 98.1 87 18 121/85 98 Room Air 98.1 05/03/18 12:00 97.7 92 20 162/90 97 Room Air 97.7 05/03/18 12:00 89 Intake and Output 05/03/18 05/04/18 19:00 07:00 Intake Total 65 ml 980 ml Output Total 700 ml Balance -635 ml 980 ml Free Water 200 ml Tube Feeding 65 ml 780 ml Output Urine Total 700 ml Laboratory Tests 05/04/18 08:10: White Blood Count 5.6, Red Blood Count 4.43L, Hemoglobin 11.5L, Hematocrit 36.1L , Mean Corpuscular Volume 81, Mean Corpuscular Hemoglobin 25.9L, Mean Corpuscular Hemoglobin Concent 31.8L, Red Cell Distribution Width 15.1H, Platelet Count 346, Mean Platelet Volume 6.6, Neutrophils (%) (Auto) 64.0, Lymphocytes (%) (Auto) 19.5L, Monocytes (%) (Auto) 11.3H, Eosinophils (%) (Auto ) 4.5H, Basophils (%) (Auto) 0.7, Prothrombin Time 28.4H, Prothromb Time International Ratio 2.7H, Sodium Level 146H, Potassium Level 3.9, Chloride Level 110H, Carbon Dioxide Level 27, Anion Gap 9, Blood Urea Nitrogen 16, Creatinine 0.8, Estimat Glomerular Filtration Rate , Glucose Level 112H, Calcium Level 8.4L Height (Feet): 5 Height (Inches): 5.00 Weight (Pounds): 118 Nan Foreman M.D. May 04, 2018 10:39
[2018-05-04 12:00] VITALS: BP 139/78
[2018-05-04] MEDS: Vancomycin 750mg/NS 250ml 250 ML IVPB SCH (15:00)
[2018-05-04 16:00] VITALS: BP 145/83
[2018-05-04] MEDS ORDERED: Warfarin Sodium 4mg PO SCH (17:00)
--- NOTE | 2018-05-04 17:10 | Pulmonology Progress Note ---
Assessment/Plan Assessment/Plan IMPRESSION extensive left sided pneumonia (lobar/basilar) respiratory failure hypoxemia chronic encephalopathy aspiration pneumonia GT reduced LOC PLAN dc planning as per primary team PRN imaging regimen of antibiotics reviewed suction PRN and elevate head labs noted and reviewed meds noted feeds as tolerated; DVT prophylaxis as is impression, plan, and exam edited and reviewed in detail care discussed with RN Subjective ROS Limited/Unobtainable: Yes Allergies: Coded Allergies: No Known Allergies (Unverified , 12/22/17) Subjective no change on oxygen and feeds care noted and reviewed minimal congestion Objective Last 24 Hour Vital Signs Date Time Temp Pulse Resp B/P (MAP) Pulse Ox O2 Delivery O2 Flow Rate FiO2 05/04/18 16:00 98.2 100 20 145/83 96 98.2 05/04/18 12:00 97.7 96 20 139/78 97 97.7 05/04/18 09:11 99 132/78 05/04/18 08:00 98.4 102 20 147/86 98 Room Air 98.4 05/04/18 04:00 97.8 87 21 132/78 98 Room Air 97.8 05/04/18 04:00 99 05/04/18 00:00 97.3 87 23 145/90 98 Room Air 97.3 05/04/18 00:00 102 05/03/18 21:47 121 121/85 05/03/18 20:00 101 05/03/18 20:00 98.2 87 22 140/80 98 Room Air 98.2 Intake and Output 05/03/18 05/04/18 19:00 07:00 Intake Total 65 ml 980 ml Output Total 700 ml Balance -635 ml 980 ml Free Water 200 ml Tube Feeding 65 ml 780 ml Output Urine Total 700 ml Objective WDWN NAD moderate breath sounds bilaterally- without wheeze or rhonchi [id number] without MRG NABS nontender no HSM no CCE GT confused; reduced ROM nonfocal reviewed Laboratory Tests 05/04/18 08:10: White Blood Count 5.6, Red Blood Count 4.43L, Hemoglobin 11.5L, Hematocrit 36.1L , Mean Corpuscular Volume 81, Mean Corpuscular Hemoglobin 25.9L, Mean Corpuscular Hemoglobin Concent 31.8L, Red Cell Distribution Width 15.1H, Platelet Count 346, Mean Platelet Volume 6.6, Neutrophils (%) (Auto) 64.0, Lymphocytes (%) (Auto) 19.5L, Monocytes (%) (Auto) 11.3H, Eosinophils (%) (Auto ) 4.5H, Basophils (%) (Auto) 0.7, Prothrombin Time 28.4H, Prothromb Time International Ratio 2.7H, Sodium Level 146H, Potassium Level 3.9, Chloride Level 110H, Carbon Dioxide Level 27, Anion Gap 9, Blood Urea Nitrogen 16, Creatinine 0.8, Estimat Glomerular Filtration Rate , Glucose Level 112H, Calcium Level 8.4L Current Medications Medications (Trade) Dose Ordered Sig/Mckenzie Route PRN Reason Start Time Stop Time Status Last Admin Dose Admin Acetaminophen (Tylenol) 650 mg Q4H PRN ORAL Mild Pain (Pain Scale 1-3) 05/04/18 11:31 05/17/18 11:30 Dextrose (Dextrose 50%) 25 ml STAT PRN IV Hypoglycemia 05/04/18 11:31 05/17/18 11:30 Dextrose (Dextrose 50%) 50 ml STAT PRN IV Hypoglycemia 05/04/18 11:31 05/17/18 11:30 Metoclopramide HCl (Reglan) 10 mg AC+HS GT 05/04/18 11:30 05/30/18 16:29 05/04/18 17:01 Metoprolol Tartrate (Lopressor) 12.5 mg Q12HR ORAL 05/04/18 21:00 05/26/18 22:29 Pantoprazole (Protonix) 40 mg DAILY ORAL 05/05/18 09:00 05/26/18 08:59 Piperacillin Sod/ Tazobactam Sod 3.375 gm/Sodium Chloride 110 ml @ 27.5 mls/hr Q8HR@0000,0800,1600 IVPB 05/04/18 16:00 05/08/18 23:59 05/04/18 17:00 Quetiapine Fumarate (SEROquel) 25 mg Q6H PRN ORAL For Anxiety 05/04/18 12:00 05/30/18 11:59 Vancomycin HCl (Vanco rx to dose) 1 ea DAILY PRN MISC Per rx protocol 05/04/18 11:32 06/03/18 11:31 Vancomycin/Sodium Chloride 250 ml @ 166.667 mls/hr Q12HR@0200,1400 IVPB 05/04/18 14:00 05/06/18 23:59 05/04/18 15:00 Warfarin Sodium (Coumadin per pharmacy) 1 ea DAILY PRN MISC Per rx protocol 05/04/18 11:33 06/03/18 11:32 Warfarin Sodium (Coumadin) 4 mg COUMADIN PO 05/04/18 17:00 05/09/18 16:59 Tim Andrade MD May 04, 2018 17:10
[2018-05-04] MEDS: Warfarin Sodium 4mg PO SCH (17:22)
[2018-05-04 20:41] VITALS: BP 152/87
[2018-05-05] VITALS: BP 143/86
[2018-05-05] MEDS: Vancomycin 750mg/NS 250ml 250 ML IVPB SCH ×2 (02:03→13:19)
[2018-05-05 04:00] VITALS: BP 153/85
[2018-05-05] MEDS: Metoclopramide 10mg/10ml Liq GT SCH ×4 (06:17→21:03)
[2018-05-05 08:00] VITALS: BP 145/82
[2018-05-05] MEDS: Piperacillin/Tazobactam 3.375 GM in NS 110 ML IVPB SCH ×2 (08:28→15:50)
[2018-05-05] MEDS: Metoprolol Tartrate 12.5mg TAB ORAL SCH ×2 (08:28→21:04)
[2018-05-05 08:32] LABS: BASOPHILS % (AUTO) 0.5 % (0.0-2.0); EOSINOPHILS % (AUTO) 3.7 % (0.0-3.0); HEMATOCRIT 34.2 % (42.0-52.0); HEMOGLOBIN 11.4 G/DL (14.2-18.0); LYMPHOCYTES % (AUTO) 15.3 % (20.0-45.0); MEAN CORPUSCULAR VOLUME 81 FL (80-99); MONOCYTES % (AUTO) 8.7 % (1.0-10.0); NEUTROPHILS % (AUTO) 71.9 % (45.0-75.0); PLATELET COUNT 340 K/UL (150-450); RED BLOOD COUNT 4.23 M/UL (4.70-6.10); RED CELL DISTRIBUTION WIDTH 14.9 % (11.6-14.8); WHITE BLOOD COUNT 6.2 K/UL (4.8-10.8)
[2018-05-05 08:59] LABS: ANION GAP 7 mmol/L (5-15); BLOOD UREA NITROGEN 16 mg/dL (7-18); CALCIUM 8.7 MG/DL (8.5-10.1); CARBON DIOXIDE 28 MMOL/L (21-32); CHLORIDE 110 MMOL/L (98-107); CREATININE 0.9 MG/DL (0.55-1.30); POTASSIUM 3.7 MMOL/L (3.5-5.1); SODIUM 145 MMOL/L (136-145)
--- NOTE | 2018-05-05 09:18 | Pulmonology Progress Note ---
Assessment/Plan Assessment/Plan IMPRESSION extensive left sided pneumonia (lobar/basilar) respiratory failure hypoxemia chronic encephalopathy aspiration pneumonia GT reduced LOC PLAN dc planning as per primary team PRN imaging if increased congestion regimen of antibiotics reviewed suction PRN and elevate head labs noted and reviewed meds noted feeds as tolerated; reviewed DVT prophylaxis as is impression, plan, and exam edited and reviewed in detail care discussed with RN Subjective ROS Limited/Unobtainable: Yes Allergies: Coded Allergies: No Known Allergies (Unverified , 12/22/17) Subjective no change on oxygen and feeds as prior care noted and reviewed minimal congestion noted Objective Last 24 Hour Vital Signs Date Time Temp Pulse Resp B/P (MAP) Pulse Ox O2 Delivery O2 Flow Rate FiO2 05/05/18 08:28 87 153/85 05/05/18 04:00 98.2 87 20 153/85 98 98.2 05/05/18 00:00 97.9 85 19 143/86 100 97.9 05/04/18 20:55 92 152/87 05/04/18 20:41 98.1 92 20 152/87 95 98.1 05/04/18 16:00 98.2 100 20 145/83 96 98.2 05/04/18 12:00 97.7 96 20 139/78 97 97.7 Intake and Output 05/04/18 05/05/18 19:00 07:00 Intake Total 480 ml 65 ml Output Total 1200 ml 800 ml Balance -720 ml -735 ml Free Water 25 ml Tube Feeding 455 ml 65 ml Output Urine Total 1200 ml 800 ml Objective WDWN NAD moderate breath sounds bilaterally- without wheeze or rhonchi [id number] without MRG NABS nontender no HSM; no distention; feeding tub no CCE GT confused; reduced ROM nonfocal; awake reviewed Laboratory Tests 05/05/18 06:55: White Blood Count 6.2, Red Blood Count 4.23L, Hemoglobin 11.4L, Hematocrit 34.2L , Mean Corpuscular Volume 81, Mean Corpuscular Hemoglobin 27.0, Mean Corpuscular Hemoglobin Concent 33.4, Red Cell Distribution Width 14.9H, Platelet Count 340, Mean Platelet Volume 6.6, Neutrophils (%) (Auto) 71.9, Lymphocytes (%) (Auto) 15.3L, Monocytes (%) (Auto) 8.7, Eosinophils (%) (Auto) 3.7H, Basophils (%) (Auto) 0.5, Prothrombin Time [Pending], Prothromb Time International Ratio [Pending], Sodium Level 145, Potassium Level 3.7, Chloride Level 110H, Carbon Dioxide Level 28, Anion Gap 7, Blood Urea Nitrogen 16, Creatinine 0.9, Estimat Glomerular Filtration Rate , Glucose Level 123H, Calcium Level 8.7 Current Medications Medications (Trade) Dose Ordered Sig/Mckenzie Route PRN Reason Start Time Stop Time Status Last Admin Dose Admin Acetaminophen (Tylenol) 650 mg Q4H PRN ORAL Mild Pain (Pain Scale 1-3) 05/04/18 11:31 05/17/18 11:30 Dextrose (Dextrose 50%) 25 ml STAT PRN IV Hypoglycemia 05/04/18 11:31 05/17/18 11:30 Dextrose (Dextrose 50%) 50 ml STAT PRN IV Hypoglycemia 05/04/18 11:31 05/17/18 11:30 Metoclopramide HCl (Reglan) 10 mg AC+HS GT 05/04/18 11:30 05/30/18 16:29 05/05/18 06:17 Metoprolol Tartrate (Lopressor) 12.5 mg Q12HR ORAL 05/04/18 21:00 05/26/18 22:29 05/05/18 08:28 Pantoprazole (Protonix) 40 mg DAILY ORAL 05/05/18 09:00 05/26/18 08:59 05/05/18 08:29 Piperacillin Sod/ Tazobactam Sod 3.375 gm/Sodium Chloride 110 ml @ 27.5 mls/hr Q8HR@0000,0800,1600 IVPB 05/04/18 16:00 05/08/18 23:59 05/05/18 08:28 Quetiapine Fumarate (SEROquel) 25 mg Q6H PRN ORAL For Anxiety 05/04/18 12:00 05/30/18 11:59 Vancomycin HCl (Vanco rx to dose) 1 ea DAILY PRN MISC Per rx protocol 05/04/18 11:32 06/03/18 11:31 Vancomycin/Sodium Chloride 250 ml @ 166.667 mls/hr Q12HR@0200,1400 IVPB 05/04/18 14:00 05/06/18 23:59 05/05/18 02:03 Warfarin Sodium (Coumadin per pharmacy) 1 ea DAILY PRN MISC Per rx protocol 05/04/18 11:33 06/03/18 11:32 Warfarin Sodium (Coumadin) 4 mg COUMADIN PO 05/04/18 17:00 05/09/18 16:59 05/04/18 17:22 Tim Andrade MD May 05, 2018 09:18
--- NOTE | 2018-05-05 09:47 | General Progress Note ---
Assessment/Plan Problem List: (1) Gastroparesis ICD Codes: K31.84 - Gastroparesis SNOMED: 328641450 (2) Encounter for PEG (percutaneous endoscopic gastrostomy) ICD Codes: Z43.1 - Encounter for attention to gastrostomy SNOMED: 969936019, 862688518 (3) Dysphagia ICD Codes: R13.10 - Dysphagia, unspecified SNOMED: 12862209, 603944718 (4) Anemia ICD Codes: D64.9 - Anemia, unspecified SNOMED: 122039565 Assessment/Plan tolerating TF continue current regimen hold JT placement plans for now Subjective ROS Limited/Unobtainable: No Allergies: Coded Allergies: No Known Allergies (Unverified , 12/22/17) Objective Last 24 Hour Vital Signs Date Time Temp Pulse Resp B/P (MAP) Pulse Ox O2 Delivery O2 Flow Rate FiO2 05/05/18 08:28 87 153/85 05/05/18 08:00 97.9 91 20 145/82 100 97.9 05/05/18 04:00 98.2 87 20 153/85 98 98.2 05/05/18 00:00 97.9 85 19 143/86 100 97.9 05/04/18 20:55 92 152/87 05/04/18 20:41 98.1 92 20 152/87 95 98.1 05/04/18 16:00 98.2 100 20 145/83 96 98.2 05/04/18 12:00 97.7 96 20 139/78 97 97.7 Intake and Output 05/04/18 05/05/18 18:59 06:59 Intake Total 480 ml 65 ml Output Total 1200 ml 800 ml Balance -720 ml -735 ml Free Water 25 ml Tube Feeding 455 ml 65 ml Output Urine Total 1200 ml 800 ml Laboratory Tests 05/05/18 06:55: White Blood Count 6.2, Red Blood Count 4.23L, Hemoglobin 11.4L, Hematocrit 34.2L , Mean Corpuscular Volume 81, Mean Corpuscular Hemoglobin 27.0, Mean Corpuscular Hemoglobin Concent 33.4, Red Cell Distribution Width 14.9H, Platelet Count 340, Mean Platelet Volume 6.6, Neutrophils (%) (Auto) 71.9, Lymphocytes (%) (Auto) 15.3L, Monocytes (%) (Auto) 8.7, Eosinophils (%) (Auto) 3.7H, Basophils (%) (Auto) 0.5, Prothrombin Time [Pending], Prothromb Time International Ratio [Pending], Sodium Level 145, Potassium Level 3.7, Chloride Level 110H, Carbon Dioxide Level 28, Anion Gap 7, Blood Urea Nitrogen 16, Creatinine 0.9, Estimat Glomerular Filtration Rate , Glucose Level 123H, Calcium Level 8.7 Height (Feet): 5 Height (Inches): 5.00 Weight (Pounds): 118 General Appearance: no apparent distress EENT: normal ENT inspection Neck: supple Cardiovascular: normal rate Respiratory/Chest: decreased breath sounds Abdomen: normal bowel sounds, non tender, soft Extremities: non-tender Davian Medeiros MD May 05, 2018 09:47
[2018-05-05 10:08] LABS: INR 2.5 (0.9-1.1)
[2018-05-05 12:00] VITALS: BP 141/87
--- NOTE | 2018-05-05 12:03 | General Progress Note ---
Assessment/Plan Assessment/Plan Aspiration Pneumonia - IV Abx On Coumadin per Pharmacy due to h/o DVT. INR therapeutic. Repeat CXR improved. To [facility]. V Tach - Cardiology noted. DC to SNF? [facility] "No beds". TF resumed @ 30 ml/hr. High residuals. Needs PEJ. GI to advise re PEJ. DC planning. [facility]. Reluctant to take Pt. Subjective Allergies: Coded Allergies: No Known Allergies (Unverified , 12/22/17) Subjective TF @ 60 ml/hr tolerated Objective Last 24 Hour Vital Signs Date Time Temp Pulse Resp B/P (MAP) Pulse Ox O2 Delivery O2 Flow Rate FiO2 05/05/18 08:28 87 153/85 05/05/18 08:00 97.9 91 20 145/82 100 97.9 05/05/18 04:00 98.2 87 20 153/85 98 98.2 05/05/18 00:00 97.9 85 19 143/86 100 97.9 05/04/18 20:55 92 152/87 05/04/18 20:41 98.1 92 20 152/87 95 98.1 05/04/18 16:00 98.2 100 20 145/83 96 98.2 Intake and Output 05/04/18 05/05/18 19:00 07:00 Intake Total 480 ml 65 ml Output Total 1200 ml 800 ml Balance -720 ml -735 ml Free Water 25 ml Tube Feeding 455 ml 65 ml Output Urine Total 1200 ml 800 ml Laboratory Tests 05/05/18 06:55: White Blood Count 6.2, Red Blood Count 4.23L, Hemoglobin 11.4L, Hematocrit 34.2L , Mean Corpuscular Volume 81, Mean Corpuscular Hemoglobin 27.0, Mean Corpuscular Hemoglobin Concent 33.4, Red Cell Distribution Width 14.9H, Platelet Count 340, Mean Platelet Volume 6.6, Neutrophils (%) (Auto) 71.9, Lymphocytes (%) (Auto) 15.3L, Monocytes (%) (Auto) 8.7, Eosinophils (%) (Auto) 3.7H, Basophils (%) (Auto) 0.5, Prothrombin Time 26.1H, Prothromb Time International Ratio 2.5H, Sodium Level 145, Potassium Level 3.7, Chloride Level 110H, Carbon Dioxide Level 28, Anion Gap 7, Blood Urea Nitrogen 16, Creatinine 0.9, Estimat Glomerular Filtration Rate , Glucose Level 123H, Calcium Level 8.7 Height (Feet): 5 Height (Inches): 5.00 Weight (Pounds): 118 Objective Monitor - episode of Vtach CV RR Lungs B Alana Gonzales SNT. BS + E No CCE Ervin Mario MD May 05, 2018 12:03
[2018-05-05 16:00] VITALS: BP 136/82
[2018-05-05] MEDS: Warfarin Sodium 4mg PO SCH (17:00)
[2018-05-05 20:00] VITALS: BP 149/98
[2018-05-06] VITALS: BP 158/98
[2018-05-06] MEDS: Piperacillin/Tazobactam 3.375 GM in NS 110 ML IVPB SCH ×3 (00:06→16:03)
[2018-05-06] MEDS: Vancomycin 750mg/NS 250ml 250 ML IVPB SCH ×2 (01:36→13:02)
[2018-05-06 04:00] VITALS: BP 155/93
[2018-05-06] MEDS: Metoclopramide 10mg/10ml Liq GT SCH ×4 (05:38→21:12)
[2018-05-06 08:00] VITALS: BP 143/82
[2018-05-06] MEDS: Metoprolol Tartrate 12.5mg TAB ORAL SCH ×2 (08:05→21:12)
--- NOTE | 2018-05-06 08:19 | General Progress Note ---
Assessment/Plan Problem List: (1) Gastroparesis ICD Codes: K31.84 - Gastroparesis SNOMED: 151853026 (2) Encounter for PEG (percutaneous endoscopic gastrostomy) ICD Codes: Z43.1 - Encounter for attention to gastrostomy SNOMED: 243524723, 489217965 (3) Dysphagia ICD Codes: R13.10 - Dysphagia, unspecified SNOMED: 67083531, 708510562 (4) Anemia ICD Codes: D64.9 - Anemia, unspecified SNOMED: 671335208 Assessment/Plan tolerating TF continue current regimen hold JT placement plans for now Subjective ROS Limited/Unobtainable: No Allergies: Coded Allergies: No Known Allergies (Unverified , 12/22/17) Objective Last 24 Hour Vital Signs Date Time Temp Pulse Resp B/P (MAP) Pulse Ox O2 Delivery O2 Flow Rate FiO2 05/06/18 08:05 100 155/93 05/06/18 04:00 98.8 100 20 155/93 99 Nasal Cannula 2.0 98.8 05/06/18 00:00 98.9 104 18 158/98 97 98.9 05/05/18 21:04 110 149/98 05/05/18 20:00 98.8 110 20 149/98 97 98.8 05/05/18 16:00 98.2 100 20 136/82 98 98.2 05/05/18 12:00 97.9 93 20 141/87 100 97.9 05/05/18 08:28 87 153/85 Intake and Output 05/05/18 05/06/18 19:00 07:00 Intake Total 860 ml 1040 ml Output Total 1200 ml Balance 860 ml -160 ml Free Water 210 ml 260 ml Tube Feeding 650 ml 780 ml Blood Product 0 ml Output Urine Total 1200 ml # Bowel Movements 1 Laboratory Tests 05/06/18 06:50: Prothrombin Time [Pending], Prothromb Time International Ratio [Pending] Height (Feet): 5 Height (Inches): 5.00 Weight (Pounds): 118 General Appearance: no apparent distress EENT: normal ENT inspection Neck: supple Cardiovascular: normal rate Respiratory/Chest: decreased breath sounds Abdomen: normal bowel sounds, non tender, soft Extremities: non-tender Davian Medeiros MD May 06, 2018 08:19
[2018-05-06 08:29] LABS: INR 2.2 (0.9-1.1)
--- NOTE | 2018-05-06 11:09 | Pulmonology Progress Note ---
Assessment/Plan Assessment/Plan IMPRESSION extensive left sided pneumonia (lobar/basilar) respiratory failure hypoxemia chronic encephalopathy aspiration pneumonia GT reduced LOC PLAN dc planning as per primary team PRN imaging if increased congestion continue same pulmonary management as is labs noted and reviewed meds noted feeds as tolerated; reviewed DVT prophylaxis impression, plan, and exam edited and reviewed in detail care discussed with RN Subjective ROS Limited/Unobtainable: Yes Allergies: Coded Allergies: No Known Allergies (Unverified , 12/22/17) Subjective no change respiratory management noted and reviewed care noted and reviewed stable congestion Objective Last 24 Hour Vital Signs Date Time Temp Pulse Resp B/P (MAP) Pulse Ox O2 Delivery O2 Flow Rate FiO2 05/06/18 08:05 100 155/93 05/06/18 08:00 97.5 87 20 143/82 99 Nasal Cannula 2.0 97.5 05/06/18 04:00 98.8 100 20 155/93 99 Nasal Cannula 2.0 98.8 05/06/18 00:00 98.9 104 18 158/98 97 98.9 05/05/18 21:04 110 149/98 05/05/18 20:00 98.8 110 20 149/98 97 98.8 05/05/18 16:00 98.2 100 20 136/82 98 98.2 05/05/18 12:00 97.9 93 20 141/87 100 97.9 Intake and Output 05/05/18 05/06/18 19:00 07:00 Intake Total 860 ml 1040 ml Output Total 1200 ml Balance 860 ml -160 ml Free Water 210 ml 260 ml Tube Feeding 650 ml 780 ml Blood Product 0 ml Output Urine Total 1200 ml # Bowel Movements 1 Objective WDWN NAD moderate breath sounds bilaterally- without wheeze or rhonchi [id number] without MRG NABS nontender no HSM; no distention; feeding tub no CCE GT confused; reduced ROM nonfocal; awake reviewed Laboratory Tests 05/06/18 06:50: Prothrombin Time 23.0H, Prothromb Time International Ratio 2.2H Current Medications Medications (Trade) Dose Ordered Sig/Mckenzie Route PRN Reason Start Time Stop Time Status Last Admin Dose Admin Acetaminophen (Tylenol) 650 mg Q4H PRN ORAL Mild Pain (Pain Scale 1-3) 05/04/18 11:31 05/17/18 11:30 Dextrose (Dextrose 50%) 25 ml STAT PRN IV Hypoglycemia 05/04/18 11:31 05/17/18 11:30 Dextrose (Dextrose 50%) 50 ml STAT PRN IV Hypoglycemia 05/04/18 11:31 05/17/18 11:30 Metoclopramide HCl (Reglan) 10 mg AC+HS GT 05/04/18 11:30 05/30/18 16:29 05/06/18 11:01 Metoprolol Tartrate (Lopressor) 12.5 mg Q12HR ORAL 05/04/18 21:00 05/26/18 22:29 05/06/18 08:05 Pantoprazole (Protonix) 40 mg DAILY ORAL 05/05/18 09:00 05/26/18 08:59 05/06/18 08:05 Piperacillin Sod/ Tazobactam Sod 3.375 gm/Sodium Chloride 110 ml @ 27.5 mls/hr Q8HR@0000,0800,1600 IVPB 05/04/18 16:00 05/08/18 23:59 05/06/18 07:56 Quetiapine Fumarate (SEROquel) 25 mg Q6H PRN ORAL For Anxiety 05/04/18 12:00 05/30/18 11:59 Vancomycin HCl (Vanco rx to dose) 1 ea DAILY PRN MISC Per rx protocol 05/04/18 11:32 06/03/18 11:31 Vancomycin/Sodium Chloride 250 ml @ 166.667 mls/hr Q12HR@0200,1400 IVPB 05/04/18 14:00 05/06/18 23:59 05/06/18 01:36 Warfarin Sodium (Coumadin per pharmacy) 1 ea DAILY PRN MISC Per rx protocol 05/04/18 11:33 06/03/18 11:32 Warfarin Sodium (Coumadin) 4 mg COUMADIN PO 05/04/18 17:00 05/09/18 16:59 05/05/18 17:00 Tim Andrade MD May 06, 2018 11:09
[2018-05-06 12:09] VITALS: BP 138/76
--- NOTE | 2018-05-06 13:02 | General Progress Note ---
Assessment/Plan Assessment/Plan Aspiration Pneumonia - IV Abx On Coumadin per Pharmacy due to h/o DVT. INR therapeutic. Repeat CXR improved. To [facility] V Tach - Cardiology noted. DC to SNF? [facility] "No beds". TF resumed @ 30 ml/hr. High residuals. Needs PEJ. GI to advise re PEJ. DC planning. DW CV [place]. Reluctant to take Pt. Subjective Allergies: Coded Allergies: No Known Allergies (Unverified , 12/22/17) Subjective TF @ 60 ml/hr tolerated Objective Last 24 Hour Vital Signs Date Time Temp Pulse Resp B/P (MAP) Pulse Ox O2 Delivery O2 Flow Rate FiO2 05/06/18 12:09 97.8 89 19 138/76 99 Nasal Cannula 2.0 97.8 05/06/18 08:05 100 155/93 05/06/18 08:00 97.5 87 20 143/82 99 Nasal Cannula 2.0 97.5 05/06/18 04:00 98.8 100 20 155/93 99 Nasal Cannula 2.0 98.8 05/06/18 00:00 98.9 104 18 158/98 97 98.9 05/05/18 21:04 110 149/98 05/05/18 20:00 98.8 110 20 149/98 97 98.8 05/05/18 16:00 98.2 100 20 136/82 98 98.2 Intake and Output 05/05/18 05/06/18 19:00 07:00 Intake Total 860 ml 1040 ml Output Total 1200 ml Balance 860 ml -160 ml Free Water 210 ml 260 ml Tube Feeding 650 ml 780 ml Blood Product 0 ml Output Urine Total 1200 ml # Bowel Movements 1 Laboratory Tests 05/06/18 06:50: Prothrombin Time 23.0H, Prothromb Time International Ratio 2.2H Height (Feet): 5 Height (Inches): 5.00 Weight (Pounds): 118 Objective Monitor - episode of Vtach CV RR Lungs B Ronchi Abd SNT. BS + E No CCE Ervin Mario MD May 06, 2018 13:02
[2018-05-06 15:44] VITALS: BP 150/84
[2018-05-06] MEDS: Warfarin Sodium 4mg PO SCH (16:38)
[2018-05-06 20:17] VITALS: BP 153/82
[2018-05-07] VITALS (8 sets, daily range): BP systolic 127–166; BP diastolic 75–99
[2018-05-07] MEDS: Piperacillin/Tazobactam 3.375 GM in NS 110 ML IVPB SCH ×2 (00:01→08:00)
[2018-05-07 06:58] LABS: INR 2.1 (0.9-1.1)
[2018-05-07] MEDS: Metoclopramide 10mg/10ml Liq GT SCH ×4 (07:17→20:49)
--- NOTE | 2018-05-07 08:40 | Pulmonology Progress Note ---
Assessment/Plan Assessment/Plan IMPRESSION extensive left sided pneumonia (lobar/basilar) respiratory failure hypoxemia chronic encephalopathy aspiration pneumonia GT reduced LOC PLAN dc planning dc antibiotics PRN imaging if increased congestion continue same; noted labs pulmonary management as is labs noted and reviewed meds noted tolerating feeds DVT prophylaxis impression, plan, and exam edited and reviewed in detail care discussed with RN Subjective ROS Limited/Unobtainable: Yes Allergies: Coded Allergies: No Known Allergies (Unverified , 12/22/17) Subjective no change d/w primary MD care noted and reviewed stable without worsening congestion Objective Last 24 Hour Vital Signs Date Time Temp Pulse Resp B/P (MAP) Pulse Ox O2 Delivery O2 Flow Rate FiO2 05/07/18 04:03 98 Nasal Cannula 2.0 05/07/18 04:03 98.0 91 19 127/87 98 98.0 05/07/18 00:24 96 Nasal Cannula 2.0 05/07/18 00:09 98.5 91 20 155/85 96 98.5 05/06/18 21:12 91 153/82 05/06/18 20:46 Nasal Cannula 2.0 28 05/06/18 20:46 91 20 Nasal Cannula 2.0 28 05/06/18 20:46 97 2.0 28 05/06/18 20:17 98 Nasal Cannula 2.0 05/06/18 20:17 97.9 88 20 153/82 98 97.9 05/06/18 15:44 98.4 94 20 150/84 98 98.4 05/06/18 14:31 Nasal Cannula 2.0 28 05/06/18 12:31 97 Nasal Cannula 2.0 21 05/06/18 12:30 93 20 Nasal Cannula 2.0 28 05/06/18 12:09 97.8 89 19 138/76 99 Nasal Cannula 2.0 97.8 Intake and Output 05/06/18 05/07/18 19:00 07:00 Intake Total 1279.167 ml 1232.5 ml Output Total 1280 ml 850 ml Balance -0.833 ml 382.5 ml Free Water 400 ml 380 ml IV Total 359.167 ml 137.5 ml Tube Feeding 520 ml 715 ml Output Urine Total 1280 ml 850 ml # Bowel Movements 1 1 Objective WDWN NAD moderate breath sounds bilaterally- without wheeze or rhonchi [id number] without MRG NABS nontender no HSM; no distention; feeding tub no CCE GT no change in ROM nonfocal; awake but nonverbal reviewed Laboratory Tests 05/07/18 06:05: Prothrombin Time 22.6H, Prothromb Time International Ratio 2.1H Current Medications Medications (Trade) Dose Ordered Sig/Mckenzie Route PRN Reason Start Time Stop Time Status Last Admin Dose Admin Acetaminophen (Tylenol) 650 mg Q4H PRN ORAL Mild Pain (Pain Scale 1-3) 05/04/18 11:31 05/17/18 11:30 Dextrose (Dextrose 50%) 25 ml STAT PRN IV Hypoglycemia 05/04/18 11:31 05/17/18 11:30 Dextrose (Dextrose 50%) 50 ml STAT PRN IV Hypoglycemia 05/04/18 11:31 05/17/18 11:30 Metoclopramide HCl (Reglan) 10 mg AC+HS GT 05/04/18 11:30 05/30/18 16:29 05/07/18 07:17 Metoprolol Tartrate (Lopressor) 12.5 mg Q12HR ORAL 05/04/18 21:00 05/26/18 22:29 05/06/18 21:12 Pantoprazole (Protonix) 40 mg DAILY ORAL 05/05/18 09:00 05/26/18 08:59 05/06/18 08:05 Piperacillin Sod/ Tazobactam Sod 3.375 gm/Dextrose 110 ml @ 27.5 mls/hr Q8HR@0000,0800,1600 IVPB 05/08/18 00:00 05/15/18 00:00 Piperacillin Sod/ Tazobactam Sod 3.375 gm/Sodium Chloride 110 ml @ 27.5 mls/hr Q8HR@0000,0800,1600 IVPB 05/04/18 16:00 05/07/18 23:59 05/07/18 00:01 Quetiapine Fumarate (SEROquel) 25 mg Q6H PRN ORAL For Anxiety 05/04/18 12:00 05/30/18 11:59 Warfarin Sodium (Coumadin per pharmacy) 1 ea DAILY PRN MISC Per rx protocol 05/04/18 11:33 06/03/18 11:32 Warfarin Sodium (Coumadin) 4 mg COUMADIN PO 05/04/18 17:00 05/09/18 16:59 05/06/18 16:38 Tim Andrade MD May 07, 2018 08:40
[2018-05-07] MEDS: Metoprolol Tartrate 12.5mg TAB ORAL SCH ×2 (09:00→20:49)
--- NOTE | 2018-05-07 10:41 | GI Progress Note ---
Assessment/Plan Problems: (1) Encounter for PEG (percutaneous endoscopic gastrostomy) ICD Codes: Z43.1 - Encounter for attention to gastrostomy SNOMED: 853671396, 794218752 (2) Dysphagia ICD Codes: R13.10 - Dysphagia, unspecified SNOMED: 92790755, 846979881 (3) Anemia ICD Codes: D64.9 - Anemia, unspecified SNOMED: 484925904 (4) Gastroparesis ICD Codes: K31.84 - Gastroparesis SNOMED: 560430008 Status: stable Status Narrative Discussed with Dr. Medeiros. Assessment/Plan s/p EGD PEG in December 2017. per report, patient is not tolerating GTFs >> pt now has normal residuals labs reviewed >> Hyperglycemia >> Hg A1C normal tolerating TF continue current regimen hold JT placement plans for now dc planning The patient was seen and examined at bedside and all new and available data was reviewed in the patients chart. I agree with the above findings, impression and plan. (Patient seen earlier today. Signature stamp does not reflect patient encounter time.). - Davian Medeiros MD Subjective Subjective limited Objective Last 24 Hour Vital Signs Date Time Temp Pulse Resp B/P (MAP) Pulse Ox O2 Delivery O2 Flow Rate FiO2 05/07/18 09:00 96 166/90 05/07/18 08:00 98.3 96 20 166/90 99 98.3 05/07/18 04:03 98 Nasal Cannula 2.0 05/07/18 04:03 98.0 91 19 127/87 98 98.0 05/07/18 00:24 96 Nasal Cannula 2.0 05/07/18 00:09 98.5 91 20 155/85 96 98.5 05/06/18 21:12 91 153/82 05/06/18 20:46 Nasal Cannula 2.0 28 05/06/18 20:46 91 20 Nasal Cannula 2.0 28 05/06/18 20:46 97 2.0 28 05/06/18 20:17 98 Nasal Cannula 2.0 05/06/18 20:17 97.9 88 20 153/82 98 97.9 05/06/18 15:44 98.4 94 20 150/84 98 98.4 05/06/18 14:31 Nasal Cannula 2.0 28 05/06/18 12:31 97 Nasal Cannula 2.0 21 05/06/18 12:30 93 20 Nasal Cannula 2.0 28 05/06/18 12:09 97.8 89 19 138/76 99 Nasal Cannula 2.0 97.8 Intake and Output 05/06/18 05/07/18 19:00 07:00 Intake Total 1279.167 ml 1232.5 ml Output Total 1280 ml 850 ml Balance -0.833 ml 382.5 ml Free Water 400 ml 380 ml IV Total 359.167 ml 137.5 ml Tube Feeding 520 ml 715 ml Output Urine Total 1280 ml 850 ml # Bowel Movements 1 1 Laboratory Tests Test 05/07/18 06:05 Prothrombin Time 22.6 SEC (9.30-11.50) H Prothromb Time International Ratio 2.1 (0.9-1.1) H Height (Feet): 5 Height (Inches): 5.00 Weight (Pounds): 118 General Appearance: WD/WN, no apparent distress, alert Cardiovascular: normal rate Respiratory/Chest: normal breath sounds, no respiratory distress Abdominal Exam: normal bowel sounds, non tender, soft, GT site - c/d/i Extremities: normal range of motion, non-tender Mega Hernandez NP May 07, 2018 10:41
[2018-05-07] MEDS ORDERED: Tubing Blood Filter IV ONE (15:26)
[2018-05-07] MEDS ORDERED: NS 500ML ONE (15:26)
[2018-05-07] MEDS: Warfarin Sodium 4mg PO SCH (16:49)
--- NOTE | 2018-05-07 17:17 | General Progress Note ---
Assessment/Plan Status: stable Assessment/Plan encephalopathy Agitation -Seroquel 25mg gt q 6hr -dc restraints Subjective Date patient seen: May 07, 2018 Neurologic/Psychiatric: Reports: anxiety, depressed, emotional problems Allergies: Coded Allergies: No Known Allergies (Unverified , 12/22/17) Subjective the pt was calm. no restraints. Objective Last 24 Hour Vital Signs Date Time Temp Pulse Resp B/P (MAP) Pulse Ox O2 Delivery O2 Flow Rate FiO2 05/07/18 16:50 145/75 05/07/18 15:58 98.2 99 26 166/99 99 Nasal Cannula 2.0 98.2 05/07/18 12:01 Nasal Cannula 2.0 05/07/18 12:00 98.5 100 19 146/94 100 98.5 05/07/18 09:00 96 166/90 05/07/18 08:01 Nasal Cannula 2.0 05/07/18 08:00 98.3 96 20 166/90 99 98.3 05/07/18 04:03 98 Nasal Cannula 2.0 05/07/18 04:03 98.0 91 19 127/87 98 98.0 05/07/18 00:24 96 Nasal Cannula 2.0 05/07/18 00:09 98.5 91 20 155/85 96 98.5 05/06/18 21:12 91 153/82 05/06/18 20:46 Nasal Cannula 2.0 28 05/06/18 20:46 91 20 Nasal Cannula 2.0 28 05/06/18 20:46 97 2.0 28 05/06/18 20:17 98 Nasal Cannula 2.0 05/06/18 20:17 97.9 88 20 153/82 98 97.9 Intake and Output 05/06/18 05/07/18 19:00 07:00 Intake Total 1279.167 ml 1232.5 ml Output Total 1280 ml 850 ml Balance -0.833 ml 382.5 ml Free Water 400 ml 380 ml IV Total 359.167 ml 137.5 ml Tube Feeding 520 ml 715 ml Output Urine Total 1280 ml 850 ml # Bowel Movements 1 1 Laboratory Tests 05/07/18 06:05: Prothrombin Time 22.6H, Prothromb Time International Ratio 2.1H Height (Feet): 5 Height (Inches): 5.00 Weight (Pounds): 118 General Appearance: no apparent distress, alert, confused Nan Foreman M.D. May 07, 2018 17:17
--- NOTE | 2018-05-07 21:12 | General Progress Note ---
Assessment/Plan Problem List: (1) Alzheimer disease ICD Codes: G30.9 - Alzheimer's disease, unspecified; F02.80 - Dementia in other diseases classified elsewhere without behavioral disturbance SNOMED: 12761760 (2) Respiratory distress ICD Codes: R06.03 - Acute respiratory distress SNOMED: 345139104 (3) Pneumonia ICD Codes: J18.9 - Pneumonia, unspecified organism SNOMED: 515858760 (4) Encounter for PEG (percutaneous endoscopic gastrostomy) ICD Codes: Z43.1 - Encounter for attention to gastrostomy SNOMED: 252664263, 144285364 (5) Anemia ICD Codes: D64.9 - Anemia, unspecified SNOMED: 157031686 Assessment/Plan pneummonia better, placement Subjective ROS Limited/Unobtainable: Yes Allergies: Coded Allergies: No Known Allergies (Unverified , 12/22/17) Objective Last 24 Hour Vital Signs Date Time Temp Pulse Resp B/P (MAP) Pulse Ox O2 Delivery O2 Flow Rate FiO2 05/07/18 20:49 114 165/99 05/07/18 16:50 145/75 05/07/18 15:58 98.2 99 26 166/99 99 Nasal Cannula 2.0 98.2 05/07/18 12:01 Nasal Cannula 2.0 05/07/18 12:00 98.5 100 19 146/94 100 98.5 05/07/18 09:00 96 166/90 05/07/18 08:01 Nasal Cannula 2.0 05/07/18 08:00 98.3 96 20 166/90 99 98.3 05/07/18 04:03 98 Nasal Cannula 2.0 05/07/18 04:03 98.0 91 19 127/87 98 98.0 05/07/18 00:24 96 Nasal Cannula 2.0 05/07/18 00:09 98.5 91 20 155/85 96 98.5 05/06/18 21:12 91 153/82 Intake and Output 05/06/18 05/07/18 19:00 07:00 Intake Total 1279.167 ml 1232.5 ml Output Total 1280 ml 850 ml Balance -0.833 ml 382.5 ml Free Water 400 ml 380 ml IV Total 359.167 ml 137.5 ml Tube Feeding 520 ml 715 ml Output Urine Total 1280 ml 850 ml # Bowel Movements 1 1 Laboratory Tests 05/07/18 06:05: Prothrombin Time 22.6H, Prothromb Time International Ratio 2.1H Height (Feet): 5 Height (Inches): 5.00 Weight (Pounds): 118 General Appearance: no apparent distress, confused EENT: normal ENT inspection Neck: normal alignment Cardiovascular: regular rhythm Respiratory/Chest: lungs clear, decreased breath sounds Abdomen: non tender, soft Extremities: other - muscle atrophy Neurologic: disoriented MARITA FUENTES May 07, 2018 21:12
[2018-05-08] VITALS: BP 159/89
[2018-05-08] MEDS ORDERED: Piperacillin/Tazobactam 3.375 GM in D5W 110 ML IVPB SCH ×2
[2018-05-08 04:00] VITALS: BP 137/95
[2018-05-08] MEDS: Metoclopramide 10mg/10ml Liq GT SCH ×3 (06:21→16:26)
[2018-05-08 07:20] LABS: ANION GAP 5 mmol/L (5-15); BLOOD UREA NITROGEN 18 mg/dL (7-18); CALCIUM 8.8 MG/DL (8.5-10.1); CARBON DIOXIDE 30 MMOL/L (21-32); CHLORIDE 109 MMOL/L (98-107); CREATININE 0.9 MG/DL (0.55-1.30); POTASSIUM 4.5 MMOL/L (3.5-5.1); SODIUM 144 MMOL/L (136-145)
[2018-05-08 07:43] LABS: BASOPHILS % (AUTO) 0.7 % (0.0-2.0); EOSINOPHILS % (AUTO) 3.9 % (0.0-3.0); HEMATOCRIT 39.9 % (42.0-52.0); HEMOGLOBIN 12.6 G/DL (14.2-18.0); LYMPHOCYTES % (AUTO) 14.9 % (20.0-45.0); MEAN CORPUSCULAR VOLUME 82 FL (80-99); MONOCYTES % (AUTO) 9.5 % (1.0-10.0); NEUTROPHILS % (AUTO) 71.1 % (45.0-75.0); PLATELET COUNT 339 K/UL (150-450); RED BLOOD COUNT 4.87 M/UL (4.70-6.10); RED CELL DISTRIBUTION WIDTH 15.2 % (11.6-14.8); WHITE BLOOD COUNT 7.4 K/UL (4.8-10.8)
[2018-05-08 07:53] LABS: INR 2.3 (0.9-1.1)
[2018-05-08 08:00] VITALS: BP 158/91
[2018-05-08] MEDS: Metoprolol Tartrate 12.5mg TAB ORAL SCH (09:36)
--- NOTE | 2018-05-08 10:11 | Pulmonology Progress Note ---
Assessment/Plan Assessment/Plan IMPRESSION extensive left sided pneumonia (lobar/basilar) respiratory failure hypoxemia chronic encephalopathy aspiration pneumonia GT reduced LOC PLAN dc planning per primary off antibiotics PRN imaging if increased congestion continue same; noted labs pulmonary management as is labs noted and reviewed meds noted tolerating feeds at present DVT prophylaxis impression, plan, and exam edited and reviewed in detail care discussed with RN Subjective ROS Limited/Unobtainable: Yes Allergies: Coded Allergies: No Known Allergies (Unverified , 12/22/17) Subjective no change overnight events care noted and reviewed stable at present Objective Last 24 Hour Vital Signs Date Time Temp Pulse Resp B/P (MAP) Pulse Ox O2 Delivery O2 Flow Rate FiO2 05/08/18 09:36 106 158/91 05/08/18 08:00 97.7 106 18 158/91 97 Nasal Cannula 2.0 97.7 05/08/18 04:00 98.6 110 20 137/95 99 Nasal Cannula 2.0 98.6 05/08/18 00:00 98.8 98 20 159/89 99 Nasal Cannula 2.0 98.8 05/07/18 22:00 154/76 05/07/18 20:49 114 165/99 05/07/18 20:00 98.4 20 165/99 98 Nasal Cannula 2.0 98.4 05/07/18 16:50 145/75 05/07/18 15:58 98.2 99 26 166/99 99 Nasal Cannula 2.0 98.2 05/07/18 12:01 Nasal Cannula 2.0 05/07/18 12:00 98.5 100 19 146/94 100 98.5 Intake and Output 05/07/18 05/08/18 19:00 07:00 Intake Total 870 ml 1135 ml Output Total 650 ml 700 ml Balance 220 ml 435 ml Free Water 220 ml 420 ml Tube Feeding 650 ml 715 ml Output Urine Total 650 ml 700 ml # Bowel Movements 1 1 Objective WDWN NAD moderate breath sounds bilaterally- without wheeze or rhonchi [id number] without MRG NABS nontender no HSM; no distention; feeding tub no CCE GT no change in ROM nonfocal; awake but nonverbal reviewed Laboratory Tests 05/08/18 06:10: White Blood Count 7.4, Red Blood Count 4.87, Hemoglobin 12.6L, Hematocrit 39.9L , Mean Corpuscular Volume 82, Mean Corpuscular Hemoglobin 25.9L, Mean Corpuscular Hemoglobin Concent 31.6L, Red Cell Distribution Width 15.2H, Platelet Count 339, Mean Platelet Volume 7.3, Neutrophils (%) (Auto) 71.1, Lymphocytes (%) (Auto) 14.9L, Monocytes (%) (Auto) 9.5, Eosinophils (%) (Auto) 3.9H, Basophils (%) (Auto) 0.7, Prothrombin Time 24.4H, Prothromb Time International Ratio 2.3H, Sodium Level 144, Potassium Level 4.5, Chloride Level 109H, Carbon Dioxide Level 30, Anion Gap 5, Blood Urea Nitrogen 18, Creatinine 0.9, Estimat Glomerular Filtration Rate , Glucose Level 122H, Calcium Level 8.8 Current Medications Medications (Trade) Dose Ordered Sig/Mckenzie Route PRN Reason Start Time Stop Time Status Last Admin Dose Admin Acetaminophen (Tylenol) 650 mg Q4H PRN ORAL Mild Pain (Pain Scale 1-3) 05/04/18 11:31 05/17/18 11:30 Dextrose (Dextrose 50%) 25 ml STAT PRN IV Hypoglycemia 05/04/18 11:31 05/17/18 11:30 Dextrose (Dextrose 50%) 50 ml STAT PRN IV Hypoglycemia 05/04/18 11:31 05/17/18 11:30 Metoclopramide HCl (Reglan) 10 mg AC+HS GT 05/04/18 11:30 05/30/18 16:29 05/08/18 06:21 Metoprolol Tartrate (Lopressor) 12.5 mg Q12HR ORAL 05/04/18 21:00 05/26/18 22:29 05/08/18 09:36 Pantoprazole (Protonix) 40 mg DAILY ORAL 05/05/18 09:00 05/26/18 08:59 05/08/18 09:36 Quetiapine Fumarate (SEROquel) 25 mg Q6H PRN ORAL For Anxiety 05/04/18 12:00 05/30/18 11:59 05/07/18 16:48 Warfarin Sodium (Coumadin per pharmacy) 1 ea DAILY PRN MISC Per rx protocol 05/04/18 11:33 06/03/18 11:32 Warfarin Sodium (Coumadin) 4 mg COUMADIN PO 05/04/18 17:00 05/09/18 16:59 05/07/18 16:49 Tim Andrade MD May 08, 2018 10:11
[2018-05-08 12:00] VITALS: BP 149/81
--- NOTE | 2018-05-08 12:56 | General Progress Note ---
Assessment/Plan Status: stable Assessment/Plan encephalopathy Agitation -Seroquel 25mg gt q 6hr -dc restraints Subjective Date patient seen: May 08, 2018 Neurologic/Psychiatric: Reports: anxiety, depressed, emotional problems Allergies: Coded Allergies: No Known Allergies (Unverified , 12/22/17) Subjective the pt was calm. no restraints. Objective Last 24 Hour Vital Signs Date Time Temp Pulse Resp B/P (MAP) Pulse Ox O2 Delivery O2 Flow Rate FiO2 05/08/18 09:36 106 158/91 05/08/18 08:00 97.7 106 18 158/91 97 Nasal Cannula 2.0 97.7 05/08/18 04:00 98.6 110 20 137/95 99 Nasal Cannula 2.0 98.6 05/08/18 00:00 98.8 98 20 159/89 99 Nasal Cannula 2.0 98.8 05/07/18 22:00 154/76 05/07/18 20:49 114 165/99 05/07/18 20:00 98.4 20 165/99 98 Nasal Cannula 2.0 98.4 05/07/18 16:50 145/75 05/07/18 15:58 98.2 99 26 166/99 99 Nasal Cannula 2.0 98.2 Intake and Output 05/07/18 05/08/18 19:00 07:00 Intake Total 870 ml 1135 ml Output Total 650 ml 700 ml Balance 220 ml 435 ml Free Water 220 ml 420 ml Tube Feeding 650 ml 715 ml Output Urine Total 650 ml 700 ml # Bowel Movements 1 1 Laboratory Tests 05/08/18 06:10: White Blood Count 7.4, Red Blood Count 4.87, Hemoglobin 12.6L, Hematocrit 39.9L , Mean Corpuscular Volume 82, Mean Corpuscular Hemoglobin 25.9L, Mean Corpuscular Hemoglobin Concent 31.6L, Red Cell Distribution Width 15.2H, Platelet Count 339, Mean Platelet Volume 7.3, Neutrophils (%) (Auto) 71.1, Lymphocytes (%) (Auto) 14.9L, Monocytes (%) (Auto) 9.5, Eosinophils (%) (Auto) 3.9H, Basophils (%) (Auto) 0.7, Prothrombin Time 24.4H, Prothromb Time International Ratio 2.3H, Sodium Level 144, Potassium Level 4.5, Chloride Level 109H, Carbon Dioxide Level 30, Anion Gap 5, Blood Urea Nitrogen 18, Creatinine 0.9, Estimat Glomerular Filtration Rate , Glucose Level 122H, Calcium Level 8.8 Height (Feet): 5 Height (Inches): 5.00 Weight (Pounds): 118 General Appearance: no apparent distress, alert, confused Nan Foreman M.D. May 08, 2018 12:56
--- NOTE | 2018-05-08 14:30 | GI Progress Note ---
Assessment/Plan Problems: (1) Encounter for PEG (percutaneous endoscopic gastrostomy) ICD Codes: Z43.1 - Encounter for attention to gastrostomy SNOMED: 339221008, 801766686 (2) Dysphagia ICD Codes: R13.10 - Dysphagia, unspecified SNOMED: 36309507, 849895282 (3) Anemia ICD Codes: D64.9 - Anemia, unspecified SNOMED: 600312579 (4) Gastroparesis ICD Codes: K31.84 - Gastroparesis SNOMED: 311642216 Status: stable Status Narrative Discussed with Dr. Medeiros. Assessment/Plan s/p EGD PEG in December 2017. per report, patient is not tolerating GTFs >> pt now has normal residuals labs reviewed >> Hyperglycemia >> Hg A1C normal supportive care tolerating TF continue current regimen hold JT placement plans for now dc planning The patient was seen and examined at bedside and all new and available data was reviewed in the patients chart. I agree with the above findings, impression and plan. (Patient seen earlier today. Signature stamp does not reflect patient encounter time.). - Davian Medeiros MD Subjective Subjective limited Objective Last 24 Hour Vital Signs Date Time Temp Pulse Resp B/P (MAP) Pulse Ox O2 Delivery O2 Flow Rate FiO2 05/08/18 12:00 97.9 102 20 149/81 99 Nasal Cannula 2.0 97.9 05/08/18 09:36 106 158/91 05/08/18 08:00 97.7 106 18 158/91 97 Nasal Cannula 2.0 97.7 05/08/18 04:00 98.6 110 20 137/95 99 Nasal Cannula 2.0 98.6 05/08/18 00:00 98.8 98 20 159/89 99 Nasal Cannula 2.0 98.8 05/07/18 22:00 154/76 05/07/18 20:49 114 165/99 05/07/18 20:00 98.4 20 165/99 98 Nasal Cannula 2.0 98.4 05/07/18 16:50 145/75 05/07/18 15:58 98.2 99 26 166/99 99 Nasal Cannula 2.0 98.2 Intake and Output 05/07/18 05/08/18 19:00 07:00 Intake Total 870 ml 1135 ml Output Total 650 ml 700 ml Balance 220 ml 435 ml Free Water 220 ml 420 ml Tube Feeding 650 ml 715 ml Output Urine Total 650 ml 700 ml # Bowel Movements 1 1 Laboratory Tests Test 05/08/18 06:10 White Blood Count 7.4 K/UL (4.8-10.8) Red Blood Count 4.87 M/UL (4.70-6.10) Hemoglobin 12.6 G/DL (14.2-18.0) L Hematocrit 39.9 % (42.0-52.0) L Mean Corpuscular Volume 82 FL (80-99) Mean Corpuscular Hemoglobin 25.9 PG (27.0-31.0) L Mean Corpuscular Hemoglobin Concent 31.6 G/DL (32.0-36.0) L Red Cell Distribution Width 15.2 % (11.6-14.8) H Platelet Count 339 K/UL (150-450) Mean Platelet Volume 7.3 FL (6.5-10.1) Neutrophils (%) (Auto) 71.1 % (45.0-75.0) Lymphocytes (%) (Auto) 14.9 % (20.0-45.0) L Monocytes (%) (Auto) 9.5 % (1.0-10.0) Eosinophils (%) (Auto) 3.9 % (0.0-3.0) H Basophils (%) (Auto) 0.7 % (0.0-2.0) Prothrombin Time 24.4 SEC (9.30-11.50) H Prothromb Time International Ratio 2.3 (0.9-1.1) H Sodium Level 144 MMOL/L (136-145) Potassium Level 4.5 MMOL/L (3.5-5.1) Chloride Level 109 MMOL/L (98-107) H Carbon Dioxide Level 30 MMOL/L (21-32) Anion Gap 5 mmol/L (5-15) Blood Urea Nitrogen 18 mg/dL (7-18) Creatinine 0.9 MG/DL (0.55-1.30) Estimat Glomerular Filtration Rate mL/min (>60) Glucose Level 122 MG/DL (74-106) H Calcium Level 8.8 MG/DL (8.5-10.1) Height (Feet): 5 Height (Inches): 5.00 Weight (Pounds): 118 General Appearance: WD/WN, no apparent distress, alert Cardiovascular: normal rate Respiratory/Chest: normal breath sounds, no respiratory distress Abdominal Exam: normal bowel sounds, non tender, soft, GT site - c/d/i Extremities: non-tender Mega Hernandez NP May 08, 2018 14:30
[2018-05-08 16:14] VITALS: BP 154/94
[2018-05-08] MEDS: Warfarin Sodium 4mg PO SCH (16:26)
--- NOTE | 2018-05-09 04:45 | Discharge Summary ---
DATE OF ADMISSION: 04/17/2018 DATE OF DISCHARGE: 05/08/2018 PERTINENT HISTORY: See the note of Dr. Hinds. I am covering for him on discharge. The patient is an 82-year-old man from an ECF, became short of breath, tachypneic, and had respiratory failure and placed on BiPAP in the emergency room. 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 PERTINENT PHYSICAL FINDINGS: LUNGS: Showed bilateral rhonchi. HEART: Regular rhythm and tachycardic. ABDOMEN: Soft. Gastrostomy. NEUROLOGIC: He is disoriented. EXTREMITIES: Showed severe muscle wasting. COURSE IN THE HOSPITAL: The patient had severe left-sided pneumonia and aspiration pneumonia and chronic obstructive pulmonary disease. He was also dehydrated and given IV fluids. He was started on broad-spectrum antibiotics. He was colonized with VRE and MRSA. The patient had a gradual improvement of his pulmonary status. He requires tube feedings, supportive care, continuation of Coumadin for DVT. On the day of discharge, his vital signs were stable. Lungs few rhonchi, no distress. Heart, regular rhythm. Abdomen, soft. Extremities with contractures and muscle wasting. He was discharged back to the [facility] in stable, but severely disabled condition. FINAL DIAGNOSES: 1. Aspiration pneumonia, ECF acquired. 2. Chronic obstructive pulmonary disease. 3. Acute respiratory failure. 4. Moderate to severe protein-calorie malnutrition. 5. Dysphagia with gastrostomy tube feeding. 6. History of DVT. 7. History of psychosis. 8. History of organic brain syndrome. 9. History of benign prostatic hypertrophy. 10. Urinary retention. 11. Failure to thrive. DISCHARGE DISPOSITION: To the [facility]. DISCHARGE MEDICATIONS: Per the computer list. FOLLOWUP: Follow up by Dr. Hinds in the facility. Thiago Garcia M.D. DR: DARREN JOB#: [id number] CC:
== END 2018-05-08 17:10 | DRG 177 ==
LOC: EDBD 14:42 → EDBEDREQ 15:00 → EMR 15:15 → 2W 15:50 → EDBEDREQ 15:59 → 2W 04-19 18:36 → 2E 04-24 20:18 → 4W 05-04 10:33
DX: J69.0 Pneumonitis due to inhalation of food and vomit (principal); G93.40 Encephalopathy, unspecified; J96.01 Acute respiratory failure with hypoxia; E43 Unspecified severe protein-calorie malnutrition; Z68.1 Body mass index [BMI] 19.9 or less, adult; I47.2 Ventricular tachycardia; J44.9 Chronic obstructive pulmonary disease, unspecified; Z93.1 Gastrostomy status; Z86.718 Personal history of other venous thrombosis and embolism; F09 Unspecified mental disorder due to known physiological condition; G30.9 Alzheimer's disease, unspecified; F02.80 Dementia in other diseases classified elsewhere, unspecified severity, without behavioral disturbance, psychotic disturbance, mood disturbance, and anxiety; N40.1 Benign prostatic hyperplasia with lower urinary tract symptoms; R33.8 Other retention of urine; B35.1 Tinea unguium; R13.10 Dysphagia, unspecified; D64.9 Anemia, unspecified; K31.84 Gastroparesis; F29 Unspecified psychosis not due to a substance or known physiological condition; E86.0 Dehydration; R62.7 Adult failure to thrive; R73.9 Hyperglycemia, unspecified
CPT/HCPCS: 36415; 36600; 71045; 80048; 80053; 80202; 81003; 82550; 82553; 82565; 82803; 82962; 83036; 83605; 83690; 83735; 83880; 84484; 85025; 85610; 87040; 87081; 87086; 93005; 94640; 94664; 94760; 99291

== ENCOUNTER 2018-11-29 00:55 | Inpatient (IN) | payer MEDICARE, OTHER ==
[~2018-11-29] VITALS: Ht 165.1 cm; Wt 61.2 kg
[~2018-11-29 00:55] MED LIST changes: +ACETAMINOPHEN325 M1 GT; +ACETAMINOPHEN325 M1 ORAL; +COUMADIN3 MG ORAL; +CULTURELLE1 EACH GT; +DULCOLAX10 MG RC; +DUONEB 0.5-3(2.53 ML HHN; +FLEET ENEMA133 ML RECTAL; +LOPRESSOR25 M1 ORAL; +MILK OF MA400 MG/51 GT; +MULTI-DELYN237 ML GT; +NORCO 10-325 T1 EACH GT; +NORCO 5-325 TA1 EACH GT; +PRO-STAT AWC LI30 ML GT; +PROTONIX40 M2 GT; +PROTONIX40 MG ORAL; +VITAMIN C500 M1 GT; +WARFARIN SODIUM6 MG GT; +Warfarin per pharmacy MISC; +ZOFRAN4 M3 GT
[2018-11-29 01:08] VITALS: BP 124/70
[2018-11-29] MEDS ORDERED: Pantoprazole Inj IV ONE (01:15)
[2018-11-29] MEDS ORDERED: Isovue-300 100ml vial INJ PRN (01:15)
[2018-11-29 01:33] LABS: BASOPHILS % (AUTO) 0.4 % (0.0-2.0); EOSINOPHILS % (AUTO) 0.2 % (0.0-3.0); HEMATOCRIT 40.4 % (42.0-52.0); LYMPHOCYTES % (AUTO) 10.5 % (20.0-45.0); MEAN CORPUSCULAR VOLUME 79 FL (80-99); MONOCYTES % (AUTO) 5.7 % (1.0-10.0); NEUTROPHILS % (AUTO) 83.2 % (45.0-75.0); PLATELET COUNT 210 K/UL (150-450); RED BLOOD COUNT 5.09 M/UL (4.70-6.10); RED CELL DISTRIBUTION WIDTH 14.9 % (11.6-14.8); WHITE BLOOD COUNT 7.2 K/UL (4.8-10.8)
[2018-11-29 01:47] LABS: ANION GAP 8 mmol/L (5-15); BLOOD UREA NITROGEN 22 mg/dL (7-18); CALCIUM 9.4 MG/DL (8.5-10.1); CARBON DIOXIDE 29 MMOL/L (21-32); CHLORIDE 101 MMOL/L (98-107); CREATININE 0.9 MG/DL (0.55-1.30); POTASSIUM 4.6 MMOL/L (3.5-5.1); SODIUM 138 MMOL/L (136-145)
[2018-11-29 01:48] LABS: INR 1.2 (0.9-1.1)
[2018-11-29 01:53] LABS: ALANINE AMINOTRANSFERASE 23 U/L (12-78); ALBUMIN 3.2 G/DL (3.4-5.0); ALBUMIN/GLOBULIN RATIO 0.6 (1.0-2.7); ALKALINE PHOSPHATASE 91 U/L (46-116); ASPARTATE AMINO TRANSFERASE 21 U/L (15-37); BILIRUBIN,TOTAL 0.4 MG/DL (0.2-1.0)
[2018-11-29 02:10] LABS: APPEARANCE,URINE CLEAR; BILIRUBIN, URINE NEGATIVE (NEGATIVE); COLOR,URINE YELLOW; GLUCOSE, URINE (UA) NEGATIVE (NEGATIVE); KETONES,URINE NEGATIVE (NEGATIVE); LEUKOCYTE ESTERASE ,URINE NEGATIVE (NEGATIVE); NITRITE,URINE NEGATIVE (NEGATIVE); PH,URINE 7 (4.5-8.0); UROBILINOGEN,URINE NORMAL MG/DL (0.0-1.0)
[2018-11-29 02:11] LABS: PROTEIN,URINE NEGATIVE (NEGATIVE)
[2018-11-29] MEDS ORDERED: VITAMIN C500 M1 ORAL (02:29)
[2018-11-29] MEDS ORDERED: COUMADIN5 MG ORAL (02:30)
--- NOTE | 2018-11-29 03:30 | Emergency Room Report ---
History of Present Illness General Chief Complaint: Vomiting Present Illness HPI Patient is a 83-year-old male brought in by EMS from nursing facility. Patient was noted to have increased coffee-ground colored emesis. Patient prior history of G-tube dependence. He was noted to have one episode of dark colored vomit. Patient had prior history of chronic muscle weakness. Patient was noted to be somewhat verbal. History is limited by patient poor historian. Allergies: Coded Allergies: No Known Allergies (Unverified , 12/22/17) Patient History Past Medical History: see triage record Reviewed Nursing Documentation: PMH: Agreed; PSxH: Agreed Nursing Documentation-PMH Hx Cardiac Problems: Yes Hx Hypertension: Yes Hx COPD: Yes Hx Cancer: No Hx Gastrointestinal Problems: Yes - GERD History Of Psychiatric Problem: Yes Hx Neurological Problems: Yes Hx Dementia: Yes Hx Memory Loss: Yes Hx Speech Problem: Yes Hx Dysphasia: Yes Hx Weakness: Yes Review of Systems All Other Systems: limited - by poor historian Physical Exam Vital Signs Date Time Temp Pulse Resp B/P (MAP) Pulse Ox O2 Delivery O2 Flow Rate FiO2 11/29/18 00:56 97.7 92 16 115/65 93 Room Air Sp02 EP Interpretation: reviewed, normal General Appearance: no apparent distress, alert, Chronically Ill Head: atraumatic ENT: hearing grossly normal, normal voice, dry mucus membranes Neck: normal inspection, supple, no bony tend, limited range of motion Respiratory: normal inspection, normal breath sounds, no respiratory distress, no retraction, no wheezing Cardiovascular #1: regular rate, rhythm, no edema Gastrointestinal: normal inspection, normal bowel sounds, non tender, soft, no guarding, no hernia, other - gtube Rectal: deferred Genitourinary: no CVA tenderness Musculoskeletal: decreased range of motion Neurologic: alert, responsive, motor weakness - bilateral lower extremities Psychiatric: mood/affect normal Skin: other - bilateral leg ulcers Medical Decision Making Diagnostic Impression: Primary Impression: Upper GI bleed Additional Impressions: Fecal impaction Dehydration ER Course Patient presented for coffee-ground emesis Differential diagnosis include was not limited to anemia, bowel obstruction, ulceration, among others. Because of complexity of patient's case laboratory testing and imaging studies were ordered. Laboratory testing showed adequate hemoglobin. Patient was noted to have a large amount of impacted stool in the rectum on CT imaging percutaneous gastrostomy tube appears to abut the anterior wall of the stomach there is no evidence of free air or small bowel dilation. Patient's urinary bladder showed evidence of moderate distended bladder with mild wall thickening and peripheral calcifications consistent with possible bad bladder stones chronic dislocation of the right hip. Patient was discussed with Dr. Hinds for inpatient management. Labs Test 11/29/18 01:15 11/29/18 02:00 White Blood Count 7.2 K/UL (4.8-10.8) Red Blood Count 5.09 M/UL (4.70-6.10) Hemoglobin 13.0 G/DL (14.2-18.0) Hematocrit 40.4 % (42.0-52.0) Mean Corpuscular Volume 79 FL (80-99) Mean Corpuscular Hemoglobin 25.5 PG (27.0-31.0) Mean Corpuscular Hemoglobin Concent 32.1 G/DL (32.0-36.0) Red Cell Distribution Width 14.9 % (11.6-14.8) Platelet Count 210 K/UL (150-450) Mean Platelet Volume 7.9 FL (6.5-10.1) Neutrophils (%) (Auto) 83.2 % (45.0-75.0) Lymphocytes (%) (Auto) 10.5 % (20.0-45.0) Monocytes (%) (Auto) 5.7 % (1.0-10.0) Eosinophils (%) (Auto) 0.2 % (0.0-3.0) Basophils (%) (Auto) 0.4 % (0.0-2.0) Prothrombin Time 12.1 SEC (9.30-11.50) Prothromb Time International Ratio 1.2 (0.9-1.1) Activated Partial Thromboplast Time 29 SEC (23-33) Sodium Level 138 MMOL/L (136-145) Potassium Level 4.6 MMOL/L (3.5-5.1) Chloride Level 101 MMOL/L (98-107) Carbon Dioxide Level 29 MMOL/L (21-32) Anion Gap 8 mmol/L (5-15) Blood Urea Nitrogen 22 mg/dL (7-18) Creatinine 0.9 MG/DL (0.55-1.30) Estimat Glomerular Filtration Rate mL/min (>60) Glucose Level 102 MG/DL (74-106) Calcium Level 9.4 MG/DL (8.5-10.1) Total Bilirubin 0.4 MG/DL (0.2-1.0) Aspartate Amino Transf (AST/SGOT) 21 U/L (15-37) Alanine Aminotransferase (ALT/SGPT) 23 U/L (12-78) Alkaline Phosphatase 91 U/L (46-116) Troponin I 0.018 ng/mL (0.000-0.056) Total Protein 8.2 G/DL (6.4-8.2) Albumin 3.2 G/DL (3.4-5.0) Globulin 5.0 g/dL Albumin/Globulin Ratio 0.6 (1.0-2.7) Lipase 203 U/L (73-393) Urine Color Yellow Urine Appearance Clear Urine pH 7 (4.5-8.0) Urine Specific [place] 1.010 (1.005-1.035) Urine Protein Negative (NEGATIVE) Urine Glucose (UA) Negative (NEGATIVE) Urine Ketones Negative (NEGATIVE) Urine Blood Negative (NEGATIVE) Urine Nitrite Negative (NEGATIVE) Urine Bilirubin Negative (NEGATIVE) Urine Urobilinogen Normal MG/DL (0.0-1.0) Urine Leukocyte Esterase Negative (NEGATIVE) Last Vital Signs Date Time Temp Pulse Resp B/P (MAP) Pulse Ox O2 Delivery O2 Flow Rate FiO2 11/29/18 02:10 89 18 Room Air 11/29/18 01:08 98.4 124/70 96 Status: improved Disposition: ADMITTED INPATIENT Referrals: Ervin Mario MD (PCP) Jung Díaz MD Nov 29, 2018 03:30
[2018-11-29 04:15] VITALS: BP 138/87
[2018-11-29 04:36] VITALS: BP 135/79
[2018-11-29] MEDS ORDERED: TYLENOL EXTRA500 MG ORAL (05:19)
[2018-11-29] MEDS ORDERED: Pantoprazole Inj IVP SCH (10:00)
--- NOTE | 2018-11-29 10:27 | GI Initial Consult Note ---
History of Present Illness General Date patient seen: Nov 29, 2018 Time patient seen: 10:22 Reason for Hospitalization: Vomiting Referring physician: ERVIN JANG Reason for Consultation: UGIB Present Illness HPI Patient is a 83-year-old male brought in by EMS from nursing facility. Patient was noted to have increased coffee-ground colored emesis. Patient prior history of G-tube dependence. He was noted to have one episode of dark colored vomit. Patient had prior history of chronic muscle weakness. Patient was noted to be somewhat verbal. History is limited by patient poor historian. GI consulted for upper GI bleed. ROS limited, patient was seen awake no apparent distress, no active signs and symptoms of nausea vomiting. Noted that the patient is G-tube dependent. Currently n.p.o. at this time. Labs reviewed ; presents with microcytic anemia hypoalbuminemia unknown history of endoscopic or colonoscopy at this time. Home Meds Active Scripts Pantoprazole* (PROTONIX*) 40 Mg Tablet.dr, 40 MG ORAL DAILY for 30 Days, TAB Prov:Ervin Mario MD 04/27/18 Metoprolol Tartrate (Metoprolol Tartrate) 25 Mg Tablet, 12.5 MG ORAL Q12HR for 30 Days, TAB Prov:Ervin Mario MD 04/27/18 Reported Medications Acetaminophen* (TYLENOL EXTRA STRENGTH*) 500 Mg Tablet, 500 MG ORAL Q6H PRN for Mild Pain/Temp > 100.5, TAB 0 Refills 11/29/18 Warfarin Sod* (COUMADIN*) 5 Mg Tablet, 5 MG ORAL BEDTIME, TAB 11/29/18 Ascorbic Acid* (VITAMIN C*) 500 Mg Tablet, 500 MG ORAL DAILY, #30 TAB 0 Refills 11/29/18 Med list reviewed/reconciled: Yes Allergies: Coded Allergies: No Known Allergies (Unverified , 12/22/17) Patient History Limited by: medical condition History Provided By: Medical Record PMH Narrative Hx Cardiac Problems: Yes Hx Hypertension: Yes Hx COPD: Yes Hx Cancer: No Hx Gastrointestinal Problems: Yes - GERD History Of Psychiatric Problem: Yes Hx Neurological Problems: Yes Hx Dementia: Yes Hx Memory Loss: Yes Hx Speech Problem: Yes Hx Dysphasia: Yes Hx Weakness: Yes Social History: Denies: smoking, alcohol use, drug use, other Review of Systems All Other Systems: negative except mentioned in HPI Physical Exam Vital Signs Date Time Temp Pulse Resp B/P (MAP) Pulse Ox O2 Delivery O2 Flow Rate FiO2 11/29/18 00:56 97.7 92 16 115/65 93 Room Air Sp02 EP Interpretation: reviewed, normal Labs Laboratory Tests Test 11/29/18 01:15 11/29/18 02:00 White Blood Count 7.2 K/UL (4.8-10.8) Red Blood Count 5.09 M/UL (4.70-6.10) Hemoglobin 13.0 G/DL (14.2-18.0) L Hematocrit 40.4 % (42.0-52.0) L Mean Corpuscular Volume 79 FL (80-99) L Mean Corpuscular Hemoglobin 25.5 PG (27.0-31.0) L Mean Corpuscular Hemoglobin Concent 32.1 G/DL (32.0-36.0) Red Cell Distribution Width 14.9 % (11.6-14.8) H Platelet Count 210 K/UL (150-450) Mean Platelet Volume 7.9 FL (6.5-10.1) Neutrophils (%) (Auto) 83.2 % (45.0-75.0) H Lymphocytes (%) (Auto) 10.5 % (20.0-45.0) L Monocytes (%) (Auto) 5.7 % (1.0-10.0) Eosinophils (%) (Auto) 0.2 % (0.0-3.0) Basophils (%) (Auto) 0.4 % (0.0-2.0) Prothrombin Time 12.1 SEC (9.30-11.50) H Prothromb Time International Ratio 1.2 (0.9-1.1) H Activated Partial Thromboplast Time 29 SEC (23-33) Sodium Level 138 MMOL/L (136-145) Potassium Level 4.6 MMOL/L (3.5-5.1) Chloride Level 101 MMOL/L (98-107) Carbon Dioxide Level 29 MMOL/L (21-32) Anion Gap 8 mmol/L (5-15) Blood Urea Nitrogen 22 mg/dL (7-18) H Creatinine 0.9 MG/DL (0.55-1.30) Estimat Glomerular Filtration Rate mL/min (>60) Glucose Level 102 MG/DL (74-106) Calcium Level 9.4 MG/DL (8.5-10.1) Total Bilirubin 0.4 MG/DL (0.2-1.0) Aspartate Amino Transf (AST/SGOT) 21 U/L (15-37) Alanine Aminotransferase (ALT/SGPT) 23 U/L (12-78) Alkaline Phosphatase 91 U/L (46-116) Troponin I 0.018 ng/mL (0.000-0.056) Total Protein 8.2 G/DL (6.4-8.2) Albumin 3.2 G/DL (3.4-5.0) L Globulin 5.0 g/dL Albumin/Globulin Ratio 0.6 (1.0-2.7) L Lipase 203 U/L (73-393) Urine Color Yellow Urine Appearance Clear Urine pH 7 (4.5-8.0) Urine Specific [place] 1.010 (1.005-1.035) Urine Protein Negative (NEGATIVE) Urine Glucose (UA) Negative (NEGATIVE) Urine Ketones Negative (NEGATIVE) Urine Blood Negative (NEGATIVE) Urine Nitrite Negative (NEGATIVE) Urine Bilirubin Negative (NEGATIVE) Urine Urobilinogen Normal MG/DL (0.0-1.0) Urine Leukocyte Esterase Negative (NEGATIVE) General Appearance: no apparent distress Head: normocephalic EENT: PERRL/EOMI, normal ENT inspection Neck: supple Respiratory: normal breath sounds, no respiratory distress Cardiovascular: normal rate Gastrointestinal: soft, normal bowel sounds, non-distended, gt Rectal: deferred Genitourinary: deferred Musculoskeletal: normal inspection, back normal Neurologic: alert Skin: normal inspection, normal color, no rash, warm/dry, palpation normal, well hydrated Lymphatic: normal inspection, no adenopathy Current Medications Current Medications Medications (Trade) Dose Ordered Sig/Mckenzie Route PRN Reason Start Time Stop Time Status Last Admin Dose Admin Acetaminophen (Tylenol) 500 mg Q6H PRN ORAL Mild Pain/Temp > 100.5 11/29/18 10:30 12/29/18 10:29 Ascorbic Acid (Vitamin C) 500 mg DAILY ORAL 11/29/18 10:30 12/29/18 10:29 Dextrose/ Electrolytes 1,000 ml @ 40 mls/hr Q24H IV 11/29/18 11:30 12/29/18 11:29 Iopamidol (Isovue-300 100ml) 100 ml NOW PRN INJ Radiology Procedure 11/29/18 01:15 Metoprolol Tartrate (Lopressor) 12.5 mg Q12HR ORAL 11/29/18 10:30 12/29/18 10:29 Pantoprazole (Protonix) 40 mg EVERY 12 HOURS IVP 11/29/18 10:00 12/29/18 09:59 GI: Plan Problems: (1) Anemia (2) Dysphagia (3) Encounter for PEG (percutaneous endoscopic gastrostomy) (4) Gastroparesis (5) Upper GI bleed Plan EGD to be scheduled tomorrow pending consent. Maintain n.p.o. plus IV fluids anemia work up OB stool r/o GI bleed monitor H&H, prn transfusions bowel regime ppi BID fu labs We will follow with additional recommendations post procedure Discussed with Dr. Medeiros. Thank you for this patient referral, we will follow. The patient was seen and examined at bedside and all new and available data was reviewed in the patients chart. I agree with the above findings, impression and plan. (Patient seen earlier today. Signature stamp does not reflect patient encounter time.). - MD Mary Yañez,[facility] CHEMICAL TECHNICIAN Nov 29, 2018 10:27
[2018-11-29] MEDS ORDERED: 1/2NS w/KCl 20mEq 1000ml 1,000 ML IV SCH (10:30)
[2018-11-29] MEDS ORDERED: Acetaminophen 500mg (ES) tab ORAL PRN (10:30)
[2018-11-29] MEDS ORDERED: Metoprolol Tartrate 12.5mg TAB ORAL SCH (10:30)
[2018-11-29] MEDS ORDERED: Ascorbic Acid 500mg tab ORAL SCH (10:30)
--- NOTE | 2018-11-29 11:43 | Diagnostic Imaging Report ---
Indication: Abdominal pain Technique: Continuous helical transaxial imaging of the abdomen and pelvis was obtained from the lung bases to the pubic symphysis during intravenous contrast administration. Coronal 2-D reformats were also obtained. Study obtained in a Siemens sensation [address] Automatic Exposure Control was utilized. Total Dose length Product (DLP): 689.[address] Dose Index Volume (CTDIvol): 13.45 mGy Comparison: None Findings: Mild posterior basilar reticulation consistent with atelectasis noted. There is a calcified granuloma at the left lung base noted. Gastrostomy tube is present appears to be in somewhat peripheral in location at the margin of the anterior wall. The tip of the catheter is likely intraluminal. Please correlate clinically. If there is concern for malposition suggest gastrostomy contrast administration and KUB or repeat CT.. Gallbladder is unremarkable. There is artifact limiting evaluation of the portions of the abdominal anatomy including the liver and spleen. There is a moderate to severe fecal impaction with distention of the rectum measuring about 9 cm transversely with stool. There are multiple stones within the urinary bladder. The urinary bladder is distended. Aortoiliac calcifications are moderate. There is no hydronephrosis. There is no evidence of bowel obstruction. Appendix not definitely seen. Severe degenerative changes of both hips are noted on the examination IMPRESSION: Severe fecal impaction. Multiple bladder stones. Slightly thickened urinary bladder wall may be due to cystitis. 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 Left inguinal hernia containing fluid. Hiatal hernia Basal atelectasis versus scarring Gastrostomy tube noted. The balloon position appears fairly peripheral. Suggest gastrostomy contrast administration and repeat CT or KUB. The CT scanner at [facility] is accredited by the [employer] and the scans are performed using dose optimization techniques as appropriate to a performed exam including Automatic Exposure control.
[2018-11-29 12:00] VITALS: BP 157/84
[2018-11-29] MEDS: D5 1/2NS w/KCl 20mEq 1,000 ML IV SCH (13:06)
[2018-11-29] MEDS: Pantoprazole Inj IVP SCH ×2 (13:14→21:08)
[2018-11-29] MEDS ORDERED: Acetaminophen 650mg/20.3ml GT PRN (14:00)
[2018-11-29] MEDS: Ascorbic Acid 500mg tab GT SCH (15:30)
[2018-11-29] MEDS: Metoprolol Tartrate 12.5mg TAB GT SCH ×2 (15:30→21:07)
[2018-11-29 15:57] VITALS: BP 136/74
[2018-11-29 21:00] VITALS: BP 149/89
[2018-11-30] VITALS (12 sets, daily range): BP systolic 94–159; BP diastolic 58–99
--- NOTE | 2018-11-30 00:42 | History and Physical Report ---
DATE OF ADMISSION: 11/29/2018 CHIEF COMPLAINT: Coffee-ground emesis. HISTORY OF PRESENT ILLNESS: This is an 83-year-old male from [facility]. The patient was brought in due to coffee-ground emesis. The patient is demented and unable to give any further information. PAST MEDICAL HISTORY: 1. Organic brain syndrome. 2. Status post G-tube. 3. Multiple decubitus ulcer. 4. History of extensive bilateral DVTs. 5. Dysphagia. 6. Benign prostatic hypertrophy. 7. Hypertensive cardiovascular disease. 8. History of gastroesophageal reflux disease. MEDICATIONS: long term medications, Tylenol, vitamins C, ProStat liquid, omeprazole, Coumadin, and metoprolol. ALLERGIES: No known drug allergies. FAMILY HISTORY: Unable to obtain due to mental status. SOCIAL HISTORY: Unable to obtain due to mental status. REVIEW OF SYSTEMS: Unable to obtain due to mental status. PHYSICAL EXAMINATION: GENERAL: This is an elderly male, who is in no acute distress. VITAL SIGNS: Blood pressure 136/74, mean arterial pressure 94, pulse is 108, sinus tachycardia, respirations 21, and temperature 98.6 Fahrenheit. HEENT: The head is normocephalic and atraumatic. Pupils are equal, round, and reactive to light and accommodation consensually. NECK: Supple. Trachea midline. There was no lymphadenopathy or thyromegaly. LUNGS: Bilateral rhonchi. HEART: Tachycardia. S1 and S2. No rubs, murmurs, or gallops. ABDOMEN: Soft and nontender. Bowel sounds were active. EXTREMITIES: He has multiple contractures. He has advanced muscle wasting. NEUROLOGICAL: He is confused. There were no gross focal findings. LABORATORY AND ANCILLARY DATA: Hemoglobin 13, white count 7.2. BUN 22. Electrolytes within normal limits. Albumin 3.8. CT scan of the abdomen and pelvis. ASSESSMENT: 1. Upper gastrointestinal bleed. 2. Organic brain syndrome. 3. Status post G-tube. 4. Multiple decubitus ulcer. 5. History of extensive bilateral DVTs. 6. Dysphagia. 7. Benign prostatic hypertrophy. 8. Hypertensive cardiovascular disease. 9. History of gastroesophageal reflux disease. PLAN: 1. Upper endoscopy by GI. 2. Keep NPO. 3. Resume other medications. 4. Caution with Coumadin. Ervin Mario M.D. DR: AC JOB#: [id number] CC: HUONG
[2018-11-30] MEDS: Ascorbic Acid 500mg tab GT SCH (08:05)
[2018-11-30] MEDS: Pantoprazole Inj IVP SCH ×2 (08:05→21:27)
[2018-11-30] MEDS: Metoprolol Tartrate 12.5mg TAB GT SCH ×2 (08:06→21:27)
[2018-11-30 08:26] LABS: BASOPHILS % (AUTO) 0.7 % (0.0-2.0); EOSINOPHILS % (AUTO) 0.8 % (0.0-3.0); HEMATOCRIT 36.3 % (42.0-52.0); HEMOGLOBIN 11.6 G/DL (14.2-18.0); INR 1.2 (0.9-1.1); LYMPHOCYTES % (AUTO) 14.3 % (20.0-45.0); MEAN CORPUSCULAR VOLUME 80 FL (80-99); MONOCYTES % (AUTO) 7.3 % (1.0-10.0); PLATELET COUNT 205 K/UL (150-450); RED BLOOD COUNT 4.55 M/UL (4.70-6.10); RED CELL DISTRIBUTION WIDTH 14.9 % (11.6-14.8); WHITE BLOOD COUNT 5.7 K/UL (4.8-10.8)
--- NOTE | 2018-11-30 08:31 | General Progress Note ---
Assessment/Plan Assessment/Plan Upper GI Bleed. Coumadin on Hold. Recheck Duplex. For EGD. Subjective Allergies: Coded Allergies: No Known Allergies (Unverified , 12/22/17) Subjective Confused Objective Last 24 Hour Vital Signs Date Time Temp Pulse Resp B/P (MAP) Pulse Ox O2 Delivery O2 Flow Rate FiO2 11/30/18 08:06 94 159/99 11/30/18 04:00 98.0 80 19 151/89 (109) 97 11/30/18 04:00 74 11/30/18 00:00 97.8 83 18 148/92 (110) 97 11/30/18 00:00 81 11/29/18 21:07 107 149/89 11/29/18 21:00 Room Air 11/29/18 21:00 93 11/29/18 21:00 98.0 93 20 149/89 (109) 93 11/29/18 15:57 98.6 108 21 136/74 (94) 97 11/29/18 15:40 105 11/29/18 15:30 100 157/84 11/29/18 12:00 98.0 100 20 157/84 (108) 96 11/29/18 11:48 99 11/29/18 09:00 Room Air Intake and Output 11/29/18 11/30/18 19:00 07:00 Intake Total 236 ml 200 ml Balance 236 ml 200 ml Intake IV Total 236 ml 200 ml # Voids 1 3 Laboratory Tests 11/30/18 07:40: White Blood Count [Pending], Red Blood Count [Pending], Hemoglobin [Pending], Hematocrit [Pending], Mean Corpuscular Volume [Pending], Mean Corpuscular Hemoglobin [Pending], Mean Corpuscular Hemoglobin Concent [Pending], Red Cell Distribution Width [Pending], Platelet Count [Pending], Mean Platelet Volume [ Pending], Neutrophils (%) (Auto) [Pending], Lymphocytes (%) (Auto) [Pending], Monocytes (%) (Auto) [Pending], Eosinophils (%) (Auto) [Pending], Basophils (%) (Auto) [Pending], Reticulocyte Count [Pending], Prothrombin Time [Pending], Prothromb Time International Ratio [Pending], Activated Partial Thromboplast Time [Pending], Sodium Level [Pending], Potassium Level [Pending], Chloride Level [Pending], Carbon Dioxide Level [Pending], Blood Urea Nitrogen [Pending], Creatinine [Pending], Estimat Glomerular Filtration Rate [Pending], Glucose Level [Pending], Calcium Level [Pending], Magnesium Level [Pending], Iron Level [Pending], Unsaturated Iron Binding [Pending], Ferritin [Pending], Total Bilirubin [Pending], Aspartate Amino Transf (AST/SGOT) [Pending], Alanine Aminotransferase (ALT/SGPT) [Pending], Alkaline Phosphatase [Pending], Total Protein [Pending], Albumin [Pending], Globulin [Pending], Carcinoembryonic Antigen [Pending], Vitamin B12 Level [Pending], Folate [Pending], Thyroid Stimulating Hormone (TSH) [Pending], Free Thyroxine [Pending] Height (Feet): 5 Height (Inches): 5.00 Weight (Pounds): 135 Objective CV RR Lungs CTAP Abd SNT, BS +. No HSM. E Muscle wasting, contractures Ervin Mario MD Nov 30, 2018 08:31
[2018-11-30 08:47] LABS: % IRON SATURATION 14 % (15-50); IRON 38 ug/dL (50-175); TOTAL IRON BINDING CAPACITY 278 ug/dL (250-450)
[2018-11-30 08:57] LABS: ALANINE AMINOTRANSFERASE 23 U/L (12-78); ALBUMIN 2.8 G/DL (3.4-5.0); ALBUMIN/GLOBULIN RATIO 0.6 (1.0-2.7); ALKALINE PHOSPHATASE 80 U/L (46-116); ANION GAP 8 mmol/L (5-15); ASPARTATE AMINO TRANSFERASE 25 U/L (15-37); BILIRUBIN,TOTAL 0.7 MG/DL (0.2-1.0); BLOOD UREA NITROGEN 16 mg/dL (7-18); CARBON DIOXIDE 26 MMOL/L (21-32); CHLORIDE 104 MMOL/L (98-107); CREATININE 0.8 MG/DL (0.55-1.30); FERRITIN 83 NG/ML (8-388); SODIUM 138 MMOL/L (136-145)
[2018-11-30] MEDS: D5 1/2NS w/KCl 20mEq 1,000 ML IV SCH (10:42)
--- NOTE | 2018-11-30 11:38 | Pre-Procedure Note/Attestation ---
Pre-Procedure Note/Attestation Complete Prior to Procedure Planned Procedure: not applicable Procedure Narrative: egd Indications for Procedure Pre-Operative Diagnosis: gib Attestation I attest that I discussed the nature of the procedure; its benefits; risks and complications; and alternatives (and the risks and benefits of such alternatives ), prior to the procedure, with the patient (or the patient's legal international account representative). I attest that, if there was a reasonable possibility of needing a blood transfusion, the patient (or the patient's legal international account representative) was given the [facility] standardized written summary, pursuant to the Michi Haile Blood Safety Act ([place] Health and Safety Code # 1645, as amended). I attest that I re-evaluated the patient just prior to the surgery and that there has been no change in the patient's H&P, except as documented below: Davian Medeiros MD Nov 30, 2018 11:38
[2018-11-30] MEDS ORDERED: NS 500ML IVPB ONE (11:55)
[2018-11-30] MEDS ORDERED: Propofol 200mg/20ml IV ONE (12:00)
--- NOTE | 2018-11-30 12:11 | Anethesia Preoperative Eval ---
Anesthesia Pre-op PMH/ROS General Date of Evaluation: Nov 30, 2018 Time of Evaluation: 11:58 ASA Score: ASA 3 Mallampati Score Class I : Soft palate, uvula, fauces, pillars visible Class II: Soft palate, uvula, fauces visible Class III: Soft palate, base of uvula visible Class IV: Only hard plate visible Mallampati Classification: Class II Surgeon: Waldemar Diagnosis: GI bleed Surgical Procedure: EGD Anesthesia History: none Social History: smoking Family History: no anesthesia problems Allergies: Coded Allergies: No Known Allergies (Unverified , 12/22/17) Medications: see eMAR Patient NPO?: Yes NPO Date: Nov 30, 2018 NPO Time: 00:00 Past Medical History Cardiovascular: Reports: HTN; Denies: CAD, [place], valve dz, arrhythmia, other Pulmonary: Denies: asthma, COPD, [place], other Gastrointestinal/Genitourinary: Reports: GERD, other - BPH, dysphagia, GI bleed ; Denies: CRI, ESRD Neurologic/Psychiatric: Reports: dementia, other - organic brain disease; Denies: CVA, depression/anxiety, TIA HEENT: Denies: cataract (L), cataract (R), glaucoma, TUSCARORA (L), TUSCARORA (R), other Hematology/Immune: Reports: anemia, DVT; Denies: bleeding disorder, other Musculoskeletal/Integumentary: Reports: other - multiple decuitis ulcers; Denies: OA, RA, DJD, DDD, edema PMH Narrative: as above PSxH Narrative: see H & P Anesthesia Pre-op Phys. Exam Physician Exam Last Vital Signs Date Time Temp Pulse Resp B/P (MAP) Pulse Ox O2 Delivery O2 Flow Rate FiO2 11/30/18 09:00 Room Air 11/30/18 08:06 94 159/99 11/30/18 08:00 97.7 19 98 Constitutional: NAD Neurologic: CN 2-12 intact Cardiovascular: RRR Respiratory: CTA Gastrointestinal: S/NT/ND Airway Exam Mallampati Score: Class II MO: limited Neck: limited TMD: 3 FB ROM: limited Teeth: missing, broken, loose Dentures: no upper, no lower Anesthesia Pre-op A/P Labs Hematology Test 11/30/18 07:40 White Blood Count 5.7 K/UL (4.8-10.8) Red Blood Count 4.55 M/UL (4.70-6.10) L Hemoglobin 11.6 G/DL (14.2-18.0) L Hematocrit 36.3 % (42.0-52.0) L Mean Corpuscular Volume 80 FL (80-99) Mean Corpuscular Hemoglobin 25.6 PG (27.0-31.0) L Mean Corpuscular Hemoglobin Concent 32.1 G/DL (32.0-36.0) Red Cell Distribution Width 14.9 % (11.6-14.8) H Platelet Count 205 K/UL (150-450) Mean Platelet Volume 7.0 FL (6.5-10.1) Neutrophils (%) (Auto) 77.0 % (45.0-75.0) H Lymphocytes (%) (Auto) 14.3 % (20.0-45.0) L Monocytes (%) (Auto) 7.3 % (1.0-10.0) Eosinophils (%) (Auto) 0.8 % (0.0-3.0) Basophils (%) (Auto) 0.7 % (0.0-2.0) Reticulocyte Count Pending Coagulation Test 11/30/18 07:40 Prothrombin Time 12.4 SEC (9.30-11.50) H Prothromb Time International Ratio 1.2 (0.9-1.1) H Activated Partial Thromboplast Time 31 SEC (23-33) Chemistry Test 11/30/18 07:40 Sodium Level 138 MMOL/L (136-145) Potassium Level 4.0 MMOL/L (3.5-5.1) Chloride Level 104 MMOL/L (98-107) Carbon Dioxide Level 26 MMOL/L (21-32) Anion Gap 8 mmol/L (5-15) Blood Urea Nitrogen 16 mg/dL (7-18) Creatinine 0.8 MG/DL (0.55-1.30) Estimat Glomerular Filtration Rate mL/min (>60) Glucose Level 78 MG/DL (74-106) Calcium Level 9.0 MG/DL (8.5-10.1) Magnesium Level 1.8 MG/DL (1.8-2.4) Iron Level 38 ug/dL (50-175) L Total Iron Binding Capacity 278 ug/dL (250-450) Percent Iron Saturation 14 % (15-50) L Unsaturated Iron Binding 240 ug/dL (112-346) Ferritin 83 NG/ML (8-388) Total Bilirubin 0.7 MG/DL (0.2-1.0) Aspartate Amino Transf (AST/SGOT) 25 U/L (15-37) Alanine Aminotransferase (ALT/SGPT) 23 U/L (12-78) Alkaline Phosphatase 80 U/L (46-116) Total Protein 7.4 G/DL (6.4-8.2) Albumin 2.8 G/DL (3.4-5.0) L Globulin 4.6 g/dL Albumin/Globulin Ratio 0.6 (1.0-2.7) L Carcinoembryonic Antigen Pending Vitamin B12 Level 1223 PG/ML (193-986) H Folate 56.3 NG/ML (8.6-58.9) Thyroid Stimulating Hormone (TSH) 1.131 uiU/mL (0.358-3.740) Free Thyroxine 1.29 NG/DL (0.76-1.46) Risk Assessment & Plan Status Change Before Surgery: No Pre-Antibiotics Given Within 1 Hr of Incision: Jennifer Cruz CRNA Nov 30, 2018 12:11
--- NOTE | 2018-11-30 12:18 | Endoscopy Procedure Note ---
Endoscopy Procedure Note General Indication for Procedure: gib Procedures Performed: EGD Operative Findings/Diagnosis: HH,gastritis, esophagitis Specimen: yes Pt Tolerated Procedure Well: Yes Estimated Blood Loss: none Anesthesia Anesthesiologist: levy Anesthesia: MAC Inserted Devices Implant(s) used?: No GI Core Measures 50 yrs or older w/o bx or poly: Not Applicable 10yrs. F/U not recommended: Not Applicable Davian Medeiros MD Nov 30, 2018 12:18
--- NOTE | 2018-11-30 12:36 | Immediate Post-Op Evaluation ---
Immediate Post-Op Evalulation Immediate Post-Op Evalulation Procedure: EGD Date of Evaluation: Nov 30, 2018 Time of Evaluation: 12:21 IV Fluids: LR 300 ml Blood Pressure Systolic: 102 Blood Pressure Diastolic: 62 Pulse Rate: 86 Respiratory Rate: 16 O2 Sat by Pulse Oximetry: 99 Temperature (Fahrenheit): 97.2 Pain Score (1-10): 0 Nausea: No Vomiting: No Complications none Patient Status: awake, reacts, patent Hydration Status: adequate Given Within 1 Hr of Incision: Jennifer Cruz CRNA Nov 30, 2018 12:36
--- NOTE | 2018-11-30 12:50 | 48 Hour Post Anesthesia Eval ---
Post Anesthesia Evaluation Procedure: EGD Date of Evaluation: Nov 30, 2018 Time of Evaluation: 12:49 Blood Pressure Systolic: 136 0: 72 Pulse Rate: 86 Respiratory Rate: 21 Temperature (Fahrenheit): 97.2 O2 Sat by Pulse Oximetry: 97 Airway: patent Nausea: No Vomiting: No Pain Intensity: 0 Hydration Status: adequate Cardiopulmonary Status: stable Mental Status/LOC: patient returned to baseline Follow-up Care/Observations: per hospitalist Post-Anesthesia Complications: none Jennifer Frausto CRNA Nov 30, 2018 12:50
--- NOTE | 2018-11-30 15:15 | Procedure Note ---
DATE OF PROCEDURE: 11/30/2018 SURGEON: Davian Medeiros M.D. PROCEDURE: Upper endoscopy with biopsy. ANESTHESIA: Per Jennifer RIZVI. INSTRUMENT: Olympus adult flexible upper endoscope. INDICATION: Upper GI bleeding. REASON FOR PROCEDURE: The procedure, risks, benefits, and possible consequences, including hemorrhage, aspiration, perforation and infection, and alternative treatments, were explained to the patient/legal guardian by Dr. Davian Medeiros and the patient/legal guardian understood and accepted these risks. DESCRIPTION OF PROCEDURE: After informed consent was obtained and the patient was adequately sedated, Olympus upper endoscope was advanced from the mouth into the second portion of duodenum and retroflexion was performed in the stomach. The patient has evidence of 3 centimeter hiatal hernia from 40 to 43 centimeter. There was a minimum distal esophagitis without any active bleeding at this time. In the stomach, there was diffuse atrophic gastritis. Random biopsy from antrum and body was obtained to rule out H. pylori infection. Then, we pushed the G-tube into look at under the G-tube to see if there is any source of bleeding there, there was none. There was no blood or blood products in the stomach. Duodenal mucosa also grossly looked within normal limits. At this time, the upper endoscope was retrieved and procedure was terminated. SUMMARY OF FINDINGS: 1. A 3 centimeter hiatal hernia. 2. Minimum distal esophagitis. 3. Atrophic gastritis status post biopsy. RECOMMENDATIONS: 1. Follow up biopsy results and treat accordingly. 2. We will resume G-tube feeding. 3. Monitor labs. 4. Consider colonoscopy if needed. I want to thank, Dr. Mario, for this kind referral. Davian Medeiros M.D. DR: Britta JOB#: [id number] CC: Ervin Mario M.D.; Fax#: [phone]
[2018-12-01] VITALS: BP 145/73
[2018-12-01 04:00] VITALS: BP 149/103
[2018-12-01 07:51] LABS: BASOPHILS % (AUTO) 0.5 % (0.0-2.0); EOSINOPHILS % (AUTO) 0.2 % (0.0-3.0); HEMATOCRIT 35.4 % (42.0-52.0); HEMOGLOBIN 11.4 G/DL (14.2-18.0); LYMPHOCYTES % (AUTO) 15.5 % (20.0-45.0); MEAN CORPUSCULAR VOLUME 80 FL (80-99); MONOCYTES % (AUTO) 11.1 % (1.0-10.0); NEUTROPHILS % (AUTO) 72.6 % (45.0-75.0); PLATELET COUNT 188 K/UL (150-450); RED BLOOD COUNT 4.44 M/UL (4.70-6.10); RED CELL DISTRIBUTION WIDTH 14.9 % (11.6-14.8); WHITE BLOOD COUNT 6.1 K/UL (4.8-10.8)
[2018-12-01 08:00] VITALS: BP 156/85
[2018-12-01 08:07] LABS: ANION GAP 7 mmol/L (5-15); BLOOD UREA NITROGEN 16 mg/dL (7-18); CALCIUM 8.5 MG/DL (8.5-10.1); CARBON DIOXIDE 26 MMOL/L (21-32); CHLORIDE 104 MMOL/L (98-107); CREATININE 0.8 MG/DL (0.55-1.30); POTASSIUM 3.9 MMOL/L (3.5-5.1); SODIUM 137 MMOL/L (136-145)
[2018-12-01] MEDS: Metoprolol Tartrate 12.5mg TAB GT SCH ×2 (09:26→21:22)
[2018-12-01] MEDS: Pantoprazole Inj IVP SCH (09:27)
[2018-12-01] MEDS: Ascorbic Acid 500mg tab GT SCH (09:27)
--- NOTE | 2018-12-01 11:07 | General Progress Note ---
Assessment/Plan Problem List: (1) Upper GI bleed ICD Codes: K92.2 - Gastrointestinal hemorrhage, unspecified SNOMED: 06610630 (2) Dysphagia ICD Codes: R13.10 - Dysphagia, unspecified SNOMED: 31633984, 551251051 (3) Anemia ICD Codes: D64.9 - Anemia, unspecified SNOMED: 957610644 (4) Alzheimer disease ICD Codes: G30.9 - Alzheimer's disease, unspecified; F02.80 - Dementia in other diseases classified elsewhere without behavioral disturbance SNOMED: 14974789 Assessment/Plan s/p EGD yesterday no active upper GIB change ppi to daily stable H&H fu labs GTF Subjective ROS Limited/Unobtainable: No Allergies: Coded Allergies: No Known Allergies (Unverified , 12/22/17) Objective Last 24 Hour Vital Signs Date Time Temp Pulse Resp B/P (MAP) Pulse Ox O2 Delivery O2 Flow Rate FiO2 12/01/18 09:26 98 156/85 12/01/18 09:00 Room Air 12/01/18 08:00 98.5 98 19 156/85 (108) 98 12/01/18 08:00 91 12/01/18 04:00 104 12/01/18 04:00 98.4 98 17 149/103 (118) 95 12/01/18 00:00 88 12/01/18 00:00 99.3 88 18 145/73 (97) 97 11/30/18 21:27 108 143/76 11/30/18 21:00 Room Air 11/30/18 20:00 99.8 107 18 143/76 (98) 95 11/30/18 20:00 107 11/30/18 16:00 116 11/30/18 15:56 98.4 102 19 143/63 (89) 95 11/30/18 14:15 136/83 (100) 11/30/18 12:50 97.0 86 20 120/63 98 Room Air 11/30/18 12:50 86 21 97 11/30/18 12:40 90 21 136/72 97 Room Air 11/30/18 12:36 86 16 99 11/30/18 12:30 79 19 111/62 100 Nasal Cannula 3 11/30/18 12:25 81 23 106/64 100 Nasal Cannula 3 11/30/18 12:21 97.2 84 24 94/58 99 Nasal Cannula 3 11/30/18 12:00 97.8 88 19 155/74 (101) 95 Intake and Output 11/30/18 12/01/18 19:00 07:00 Intake Total 350 ml 1675 ml Output Total 0 ml Balance 350 ml 1675 ml Intake Free Water 450 ml IV Total 350 ml 665 ml Tube Feeding 560 ml Output Estimated Blood Loss 0 ml # Voids 3 2 Laboratory Tests 12/01/18 05:51: White Blood Count 6.1, Red Blood Count 4.44L, Hemoglobin 11.4L, Hematocrit 35.4L , Mean Corpuscular Volume 80, Mean Corpuscular Hemoglobin 25.7L, Mean Corpuscular Hemoglobin Concent 32.2, Red Cell Distribution Width 14.9H, Platelet Count 188, Mean Platelet Volume 7.9, Neutrophils (%) (Auto) 72.6, Lymphocytes (%) (Auto) 15.5L, Monocytes (%) (Auto) 11.1H, Eosinophils (%) (Auto ) 0.2, Basophils (%) (Auto) 0.5, Sodium Level 137, Potassium Level 3.9, Chloride Level 104, Carbon Dioxide Level 26, Anion Gap 7, Blood Urea Nitrogen 16 , Creatinine 0.8, Estimat Glomerular Filtration Rate , Glucose Level 123H, Calcium Level 8.5 Height (Feet): 5 Height (Inches): 5.00 Weight (Pounds): 135 General Appearance: alert EENT: normal ENT inspection Neck: supple Cardiovascular: normal rate Respiratory/Chest: decreased breath sounds Abdomen: normal bowel sounds, non tender, soft Extremities: non-tender Davian Medeiros MD Dec 01, 2018 11:07
[2018-12-01 12:00] VITALS: BP 154/80
[2018-12-01] MEDS: D5 1/2NS w/KCl 20mEq 1,000 ML IV SCH (13:46)
--- NOTE | 2018-12-01 14:26 | General Progress Note ---
Assessment/Plan Assessment/Plan Upper GI Bleed. Coumadin on Hold. Recheck Duplex. EGD Esopago-gastritis. Holding coumadin. Has IVC Filter. Subjective Allergies: Coded Allergies: No Known Allergies (Unverified , 12/22/17) Subjective Confused Objective Last 24 Hour Vital Signs Date Time Temp Pulse Resp B/P (MAP) Pulse Ox O2 Delivery O2 Flow Rate FiO2 12/01/18 12:00 98.4 83 20 154/80 (104) 96 12/01/18 09:26 98 156/85 12/01/18 09:00 Room Air 12/01/18 08:00 98.5 98 19 156/85 (108) 98 12/01/18 08:00 91 12/01/18 04:00 104 12/01/18 04:00 98.4 98 17 149/103 (118) 95 12/01/18 00:00 88 12/01/18 00:00 99.3 88 18 145/73 (97) 97 11/30/18 21:27 108 143/76 11/30/18 21:00 Room Air 11/30/18 20:00 99.8 107 18 143/76 (98) 95 11/30/18 20:00 107 11/30/18 16:00 116 11/30/18 15:56 98.4 102 19 143/63 (89) 95 Intake and Output 11/30/18 12/01/18 19:00 07:00 Intake Total 350 ml 1675 ml Output Total 0 ml Balance 350 ml 1675 ml Intake Free Water 450 ml IV Total 350 ml 665 ml Tube Feeding 560 ml Output Estimated Blood Loss 0 ml # Voids 3 2 Laboratory Tests 12/01/18 05:51: White Blood Count 6.1, Red Blood Count 4.44L, Hemoglobin 11.4L, Hematocrit 35.4L , Mean Corpuscular Volume 80, Mean Corpuscular Hemoglobin 25.7L, Mean Corpuscular Hemoglobin Concent 32.2, Red Cell Distribution Width 14.9H, Platelet Count 188, Mean Platelet Volume 7.9, Neutrophils (%) (Auto) 72.6, Lymphocytes (%) (Auto) 15.5L, Monocytes (%) (Auto) 11.1H, Eosinophils (%) (Auto ) 0.2, Basophils (%) (Auto) 0.5, Sodium Level 137, Potassium Level 3.9, Chloride Level 104, Carbon Dioxide Level 26, Anion Gap 7, Blood Urea Nitrogen 16 , Creatinine 0.8, Estimat Glomerular Filtration Rate , Glucose Level 123H, Calcium Level 8.5 Height (Feet): 5 Height (Inches): 5.00 Weight (Pounds): 135 Objective CV RR Lungs CTAP Abd SNT, BS +. No HSM. E Muscle wasting, contractures Ervin Mario MD Dec 01, 2018 14:26
[2018-12-01 16:00] VITALS: BP 141/74
[2018-12-01] MEDS: Docusate 100mg cap ORAL SCH (17:36)
[2018-12-01 20:00] VITALS: BP 116/67
[2018-12-01] MEDS ORDERED: Miralax 17gm pkt ORAL SCH (21:00)
[2018-12-01] MEDS ORDERED: Iron Sucrose 100 MG in NS 55 ML IV SCH (21:00)
[2018-12-02] VITALS: BP 153/76
[2018-12-02 04:00] VITALS: BP 151/85
[2018-12-02 06:27] LABS: BASOPHILS % (AUTO) 1.1 % (0.0-2.0); EOSINOPHILS % (AUTO) 1.1 % (0.0-3.0); HEMATOCRIT 34.2 % (42.0-52.0); HEMOGLOBIN 10.9 G/DL (14.2-18.0); LYMPHOCYTES % (AUTO) 17.9 % (20.0-45.0); MEAN CORPUSCULAR VOLUME 79 FL (80-99); MONOCYTES % (AUTO) 9.2 % (1.0-10.0); NEUTROPHILS % (AUTO) 70.7 % (45.0-75.0); PLATELET COUNT 173 K/UL (150-450); RED BLOOD COUNT 4.32 M/UL (4.70-6.10); RED CELL DISTRIBUTION WIDTH 14.5 % (11.6-14.8)
[2018-12-02 06:52] LABS: ANION GAP 8 mmol/L (5-15); BLOOD UREA NITROGEN 13 mg/dL (7-18); CALCIUM 8.2 MG/DL (8.5-10.1); CARBON DIOXIDE 24 MMOL/L (21-32); CHLORIDE 102 MMOL/L (98-107); CREATININE 0.7 MG/DL (0.55-1.30); POTASSIUM 4.3 MMOL/L (3.5-5.1); SODIUM 134 MMOL/L (136-145)
--- NOTE | 2018-12-02 06:55 | General Progress Note ---
Assessment/Plan Problem List: (1) Upper GI bleed ICD Codes: K92.2 - Gastrointestinal hemorrhage, unspecified SNOMED: 48323255 (2) Dysphagia ICD Codes: R13.10 - Dysphagia, unspecified SNOMED: 29686036, 974459204 (3) Anemia ICD Codes: D64.9 - Anemia, unspecified SNOMED: 171767368 (4) Alzheimer disease ICD Codes: G30.9 - Alzheimer's disease, unspecified; F02.80 - Dementia in other diseases classified elsewhere without behavioral disturbance SNOMED: 18576513 Assessment/Plan s/p EGD no active upper GIB change ppi to daily stable H&H fu labs GTF Subjective ROS Limited/Unobtainable: No Allergies: Coded Allergies: No Known Allergies (Unverified , 12/22/17) Objective Last 24 Hour Vital Signs Date Time Temp Pulse Resp B/P (MAP) Pulse Ox O2 Delivery O2 Flow Rate FiO2 12/02/18 04:00 98.3 93 20 151/85 (107) 96 12/02/18 04:00 93 12/02/18 00:00 79 12/02/18 00:00 98.5 79 20 153/76 (101) 98 12/01/18 21:22 86 119/65 12/01/18 21:00 Room Air 12/01/18 20:00 84 12/01/18 20:00 97.4 88 20 116/67 (83) 96 12/01/18 16:00 79 12/01/18 16:00 98.8 87 20 141/74 (96) 96 12/01/18 12:00 73 12/01/18 12:00 98.4 83 20 154/80 (104) 96 12/01/18 09:26 98 156/85 12/01/18 09:00 Room Air 12/01/18 08:00 98.5 98 19 156/85 (108) 98 12/01/18 08:00 91 Intake and Output 12/01/18 12/02/18 19:00 07:00 Intake Total 160 ml Balance 160 ml IV Total 160 ml # Voids 3 Laboratory Tests 12/02/18 06:10: White Blood Count 7.0, Red Blood Count 4.32L, Hemoglobin 10.9L, Hematocrit 34.2L , Mean Corpuscular Volume 79L, Mean Corpuscular Hemoglobin 25.2L, Mean Corpuscular Hemoglobin Concent 31.9L, Red Cell Distribution Width 14.5, Platelet Count 173, Mean Platelet Volume 6.4L, Neutrophils (%) (Auto) 70.7, Lymphocytes (%) (Auto) 17.9L, Monocytes (%) (Auto) 9.2, Eosinophils (%) (Auto) 1.1, Basophils (%) (Auto) 1.1, Sodium Level 134L, Potassium Level 4.3, Chloride Level 102, Carbon Dioxide Level 24, Anion Gap 8, Blood Urea Nitrogen 13, Creatinine 0.7, Estimat Glomerular Filtration Rate , Glucose Level 114H, Calcium Level 8.2L Height (Feet): 5 Height (Inches): 5.00 Weight (Pounds): 135 General Appearance: no apparent distress EENT: normal ENT inspection Neck: supple Cardiovascular: normal rate Respiratory/Chest: decreased breath sounds Abdomen: normal bowel sounds, non tender, soft Extremities: non-tender Davian Medeiros MD Dec 02, 2018 06:55
[2018-12-02 08:00] VITALS: BP 136/88
[2018-12-02] MEDS: Ascorbic Acid 500mg tab GT SCH (08:57)
[2018-12-02] MEDS: Metoprolol Tartrate 12.5mg TAB GT SCH (08:57)
[2018-12-02] MEDS: Docusate 100mg cap ORAL SCH (08:57)
[2018-12-02] MEDS ORDERED: Sterile Water Irrig 1000ml IRRIG ONE (10:57)
[2018-12-02 12:00] VITALS: BP 136/80
[2018-12-02] MEDS: D5 1/2NS w/KCl 20mEq 1,000 ML IV SCH (12:09)
--- NOTE | 2018-12-02 12:16 | General Progress Note ---
Assessment/Plan Assessment/Plan Upper GI Bleed. Coumadin on Hold. Recheck Duplex. EGD Esophago-gastritis. Holding coumadin. Has IVC Filter. No need to resume. Dc to SNF. Subjective Allergies: Coded Allergies: No Known Allergies (Unverified , 12/22/17) Subjective Confused Objective Last 24 Hour Vital Signs Date Time Temp Pulse Resp B/P (MAP) Pulse Ox O2 Delivery O2 Flow Rate FiO2 12/02/18 09:00 Room Air 12/02/18 08:57 105 136/88 12/02/18 08:00 97.3 93 20 136/88 (104) 97 105 12/02/18 08:00 105 12/02/18 04:00 98.3 93 20 151/85 (107) 96 12/02/18 04:00 93 12/02/18 00:00 79 12/02/18 00:00 98.5 79 20 153/76 (101) 98 12/01/18 21:22 86 119/65 12/01/18 21:00 Room Air 12/01/18 20:00 84 12/01/18 20:00 97.4 88 20 116/67 (83) 96 12/01/18 16:00 79 12/01/18 16:00 98.8 87 20 141/74 (96) 96 Intake and Output 12/01/18 12/02/18 19:00 07:00 Intake Total 160 ml 1380 ml Balance 160 ml 1380 ml Intake Free Water 300 ml IV Total 160 ml 420 ml Tube Feeding 660 ml # Voids 3 3 Laboratory Tests 12/02/18 06:10: White Blood Count 7.0, Red Blood Count 4.32L, Hemoglobin 10.9L, Hematocrit 34.2L , Mean Corpuscular Volume 79L, Mean Corpuscular Hemoglobin 25.2L, Mean Corpuscular Hemoglobin Concent 31.9L, Red Cell Distribution Width 14.5, Platelet Count 173, Mean Platelet Volume 6.4L, Neutrophils (%) (Auto) 70.7, Lymphocytes (%) (Auto) 17.9L, Monocytes (%) (Auto) 9.2, Eosinophils (%) (Auto) 1.1, Basophils (%) (Auto) 1.1, Sodium Level 134L, Potassium Level 4.3, Chloride Level 102, Carbon Dioxide Level 24, Anion Gap 8, Blood Urea Nitrogen 13, Creatinine 0.7, Estimat Glomerular Filtration Rate , Glucose Level 114H, Calcium Level 8.2L Height (Feet): 5 Height (Inches): 5.00 Weight (Pounds): 135 Objective CV RR Lungs CTAP Abd SNT, BS +. No HSM. E Muscle wasting, contractures Ervin Mario MD Dec 02, 2018 12:16
[2018-12-02 16:00] VITALS: BP 110/91
--- NOTE | 2018-12-04 11:02 | Discharge Summary ---
Discharge Summary Discharge Summary _ Extremity DATE OF ADMISSION: 11/29/2018 DATE OF DISCHARGE: 12/02/2018 DISCHARGED BY: Dr. Mario REASON FOR ADMISSION: 83 years old male with past medical history of organic brain syndrome, dysphagia , G-tube feeding, multiple decubitus ulcer, history of extensive bilateral DVT, dysphagia, BPH, hypertensive cardiovascular disease, history of GERD, resident of senior living [facility], presented to emergency department for evaluation due to coffee-ground emesis. Vital signs were stable. Laboratory workup revealed no leukocytosis, hemoglobin 13, hematocrit 40.4. Troponin negative. EKG revealed normal sinus rhythm, no acute ischemic changes. BUN 22 creatinine 0.9. Stable electrolytes , LFT and lipase. Urinalysis revealed no evidence of UTI. CT abdomen and pelvis revealed severe fecal impaction. Patient admitted with diagnoses of upper GI bleeding for further evaluation and management. CONSULTANTS: GI specialist Dr. Medeiros [facility] COURSE: Patient admitted to telemetry floor. GI consult was requested. Patient was kept n.p.o. and started on the IV hydration. Patient subsequently undergone upper endoscopy on 11/30, which revealed 3 cm hiatal hernia, minimal distal esophagitis, atrophic gastritis, status post biopsy. No active GI bleeding noted. Gastric biopsy revealed mild chronic gastritis , no H. pylori infection was identified. Patient started on proton pump inhibitor. Patient slowly started on NG tube feeding with strict aspiration /reflux precaution and was advanced as tolerated. Meticulous bowel regimen instituted. Hemoglobin and hematocrit were closely monitored with goal to keep hemoglobin above 7. Anemia workup was suggestive of anemia of chronic disease. Low iorn noted as well. Patient received 1 bag of IV iron. CEA was within normal limits. Prior to discharge hemoglobin 10.9 hematocrit 24.2. Coumadin was stopped. Patient had IVC filter. No need to resume Coumadin. Blood pressure was managed with beta-abel and remained stable. Wound care provided as per protocol. Supportive care provided. Patient clinically stabilized: no further emesis, had bowel movement. Patient was ready for transfer back to senior living facility for continuation of care. FINAL DIAGNOSES: Upper GI bleeding Status post EGD Minimal distal esophagitis Atrophic gastritis Fecal impaction Dysphagia Anemia G-tube feeding History of extensive bilateral DVT Hypertensive cardiovascular disease History of GERD Multiply decubitus ulcers DISCHARGE MEDICATIONS: See Medication Reconciliation list. DISCHARGE INSTRUCTIONS: Patient was discharged to the senior living facility. Follow up with medical doctor at the facility. I have been assigned to dictate discharge summary for this account. I was not involved in the patient's management. Chelsey Kumar NP Dec 04, 2018 11:02
== END 2018-12-02 17:30 | DRG 378 ==
LOC: EDBD 00:55 → EMR 01:11 → 2E 02:37 → EDBEDREQ 03:23
PROC: 0DB68ZX Excision of Stomach, Via Natural or Artificial Opening Endoscopic, Diagnostic (ICD-10-PCS; principal; 2018-11-30 12:12)
PROC: 0DB78ZX Excision of Stomach, Pylorus, Via Natural or Artificial Opening Endoscopic, Diagnostic (ICD-10-PCS; principal; 2018-11-30 12:12)
DX: K92.2 Gastrointestinal hemorrhage, unspecified (principal); Z43.1 Encounter for attention to gastrostomy; K20.9 Esophagitis, unspecified; K29.40 Chronic atrophic gastritis without bleeding; R13.10 Dysphagia, unspecified; L89.899 Pressure ulcer of other site, unspecified stage; K21.9 Gastro-esophageal reflux disease without esophagitis; D63.8 Anemia in other chronic diseases classified elsewhere; I25.10 Atherosclerotic heart disease of native coronary artery without angina pectoris; K44.9 Diaphragmatic hernia without obstruction or gangrene; G30.9 Alzheimer's disease, unspecified; F02.80 Dementia in other diseases classified elsewhere, unspecified severity, without behavioral disturbance, psychotic disturbance, mood disturbance, and anxiety; Z86.718 Personal history of other venous thrombosis and embolism; F09 Unspecified mental disorder due to known physiological condition; N40.0 Benign prostatic hyperplasia without lower urinary tract symptoms
CPT/HCPCS: 36415; 74177; 80048; 80053; 81003; 82378; 82607; 82728; 82746; 83540; 83550; 83690; 83735; 84439; 84443; 84484; 85025; 85044; 85610; 85730; 86850; 86900; 86901; 94003; 94150; 96361; 96374; 96375; 99285; J2405

== ENCOUNTER 2019-02-25 08:41 | Emergency (ER) | payer MEDICARE, OTHER ==
[~2019-02-25] VITALS: Ht 180.3 cm; Wt 81.6 kg
[~2019-02-25 08:41] MED LIST changes: +COUMADIN5 MG ORAL; +VITAMIN C500 M1 ORAL
--- NOTE | 2019-02-25 08:43 | NUR ---
ED Nurse Note: brought in by [facility] ambulance from [facility] due to GT replacement, unknown size. Torned, old GT remains at the [facility]. No s/s of distress.
[2019-02-25] MEDS ORDERED: DOCUSATE SODIU100 M2 ORAL (08:49)
--- NOTE | 2019-02-25 09:31 | Emergency Room Report ---
History of Present Illness General Chief Complaint: Malfunctioning Gastric Tube Source: Medical Record, EMS Present Illness HPI Patient was sent from [facility] after G-tube was accidentally broken. The patient was sent in for G-tube replacement. There was no drainage from the G- tube site. Patient had not been vomiting. There was no fever. Patient was noted to have prior history of dementia and history is markedly limited by patient's mental status. Allergies: Coded Allergies: No Known Allergies (Unverified , 02/25/19) Patient History Past Medical History: see triage record Reviewed Nursing Documentation: PMH: Agreed; PSxH: Agreed Nursing Documentation-PMH Past Medical History: No History, Except For Hx Cardiac Problems: Yes Hx Hypertension: Yes Hx COPD: Yes Hx Cancer: No Hx Gastrointestinal Problems: Yes - GERD Hx Neurological Problems: Yes Hx Dementia: Yes Hx Memory Loss: Yes Hx Speech Problem: Yes Hx Dysphasia: Yes Hx Weakness: Yes Review of Systems All Other Systems: limited - Review of systems: Review systems is limited by patient's being a poor historian Physical Exam Vital Signs Date Time Temp Pulse Resp B/P (MAP) Pulse Ox O2 Delivery O2 Flow Rate FiO2 02/25/19 08:43 97.2 104 12 122/78 98 Room Air General Appearance: alert, GCS 15, Chronically Ill Head: normocephalic, atraumatic ENT: normal voice, dry mucus membranes Neck: supple, limited range of motion Respiratory: no respiratory distress, speaking full sentences Cardiovascular #1: normal peripheral pulses, no edema Gastrointestinal: non tender, soft Musculoskeletal: normal inspection, no calf tenderness Neurologic: alert Psychiatric: depressed affect Skin: no rash Medical Decision Making Diagnostic Impression: Primary Impression: Alzheimer disease Additional Impression: PEG (percutaneous endoscopic gastrostomy) adjustment/replacement/removal ER Course Patient presented for G-tube replacement. Gastrostomy tube was replaced with sterile technique. The old G-tube stump was removed with axial traction. G- tube is replaced with a 20 Upper Sorbian G-tube was secured to 4 cm post procedure x- ray showed adequate gastrostomy tube placement. Patient tolerated well without complications. Patient was given metoprolol due to scheduled medication. The patient was discharged back to [facility]. Patient was return for persistent vomiting, other concerns. Patient was discharged with [facility] ambulance. Last Vital Signs Date Time Temp Pulse Resp B/P (MAP) Pulse Ox O2 Delivery O2 Flow Rate FiO2 02/25/19 08:43 97.2 104 12 122/78 98 Room Air Status: improved Disposition: XFER SNF Condition: Stable Referrals: Ervin Mario MD (PCP) Jung Díaz MD Feb 25, 2019 09:31
--- NOTE | 2019-02-25 09:31 | NUR ---
ED Nurse Note: GT 20Fr placed in by ERMMihai. Contacted Radiology for KUB
[2019-02-25 10:11] VITALS: BP 134/87
[2019-02-25] MEDS ORDERED: Metoprolol Tartrate 12.5mg TAB GT ONE (10:15)
--- NOTE | 2019-02-25 11:05 | Diagnostic Imaging Report ---
Indication: Post gastrostomy replacement Technique: Supine view of the abdomen after injection of water-soluble contrast into gastrostomy Comparison: none Findings: Contrast opacifies the stomach. No contrast extravasation is demonstrated. The bowel gas pattern is unremarkable. Impression: Satisfactory position of gastrostomy tube
[2019-02-25 11:32] VITALS: BP 118/74
[2019-02-25 11:38] VITALS: BP 118/74
--- NOTE | 2019-02-25 11:38 | NUR ---
ED Nurse Note: REPORT GIVEN TO [facility]. NO BELONGINGS CAME WITH THE PT. GT INTACT. NO S/S OF DISTRESS. VSS.
== END 2019-02-25 11:48 | disposition home or self-care (01) ==
LOC: EDBD 08:41 → EMR 09:00
DX: Z43.1 Encounter for attention to gastrostomy (principal); G30.9 Alzheimer's disease, unspecified; F02.80 Dementia in other diseases classified elsewhere, unspecified severity, without behavioral disturbance, psychotic disturbance, mood disturbance, and anxiety; I10 Essential (primary) hypertension; J44.9 Chronic obstructive pulmonary disease, unspecified; K21.9 Gastro-esophageal reflux disease without esophagitis
CPT/HCPCS: 74018; 99283

== ENCOUNTER 2019-02-28 00:36 | Inpatient (IN) | payer MEDICARE, OTHER ==
[~2019-02-28] VITALS: Ht 162.6 cm; Wt 56.5 kg
[2019-02-28] VITALS (31 sets, daily range): BP systolic 64–146; BP diastolic 40–124
[~2019-02-28 00:36] MED LIST changes: +DOCUSATE SODIU100 M2 ORAL
--- NOTE | 2019-02-28 00:40 | NUR ---
ER Nurse Note: Pt RIPA from [facility] c/o shortness of breath. Per EMS, pt O2 sat 85%. Pt lung sounds not clear with crackles and rhonchi. Pt on 15L venturi mask. Pt a&ox0, has a cough, uses accessory muscles. Temp 101.6 F rectal; ERMD aware. Pt is contracted in all extremities, with a aguilera cath patent, with a g-tube in upper quadrant, residual 5ml. ERMD at pt side; will continue to monitor.
[2019-02-28] MEDS ORDERED: Acetaminophen 500mg (ES) tab ORAL ONE (00:45)
--- NOTE | 2019-02-28 00:52 | Emergency Room Report ---
History of Present Illness General Chief Complaint: Dyspnea/Respdistress Source: Medical Record, EMS Present Illness HPI This is an 83-year-old male with a history of A. fib, COPD, feeding tube. He presents with chief complaint of shortness of breath. Onset tonight. Unknown fever. Unable to get any history from this patient because of his condition and nonverbal. Allergies: Coded Allergies: No Known Allergies (Unverified , 02/25/19) Patient History Past Medical History: see triage record, old chart reviewed, AFib, COPD Past Surgical History: other Pertinent Family History: none Social History: Denies: smoking Immunizations: UTD, other Reviewed Nursing Documentation: PMH: Agreed; PSxH: Agreed Nursing Documentation-PMH Hx Cardiac Problems: Yes Hx Hypertension: Yes Hx Asthma: No - hx resp failure and asp pneumonia Hx COPD: Yes Hx Cancer: No Hx Gastrointestinal Problems: Yes - g-tube,gerd History Of Psychiatric Problem: Yes - schizophrenia Hx Neurological Problems: Yes Hx Dementia: Yes Hx Memory Loss: Yes Hx Speech Problem: Yes Hx Dysphasia: Yes Hx Weakness: Yes Review of Systems Constitutional: Reports: weakness Respiratory: Reports: cough, shortness of breath All Other Systems: limited - Secondary to condition Physical Exam Vital Signs Date Time Temp Pulse Resp B/P (MAP) Pulse Ox O2 Delivery O2 Flow Rate FiO2 02/28/19 00:21 141 40 146/124 88 Room Air vitals with fever, hypoxia and tachycardia Sp02 EP Interpretation: abnormal General Appearance: moderate distress, cachetic, Chronically Ill Head: normocephalic, atraumatic Eyes: bilateral eye PERRL, bilateral eye EOMI ENT: hearing grossly normal, dry mucus membranes Neck: full range of motion, supple, no meningismus Respiratory: chest non-tender, respiratory distress, decreased breath sounds, accessory muscle use, crackles, rhonchi Cardiovascular #1: regular rate, rhythm, no murmur, tachycardia Gastrointestinal: normal bowel sounds, non tender, no mass, no organomegaly, no bruit, non-distended Musculoskeletal: back normal, other - Contracted Psychiatric: mood/affect normal Skin: warm/dry Procedures Critical Care Time Critical Care Time Critical care is mandated in this patient who presented with septic shock secondary to pneumonia. Patient require my urgent intervention to attenuate the risks of metabolic collapse which may lead to cardiovascular collapse and . Critical care time is 75 minutes excluding any reportable procedure. Critical care time included evaluation, multiple reevaluation, looking at old charts, interpreting laboratory and diagnostic data, discussing case with patient and family and consultants, and charting. Central Line Central Line : Consent: Other - Unable to get consent from patient Central Line Lumen: triple Maximal Sterile Barrier Tech: yes cap, yes mask, yes sterile gown, yes sterile gloves, yes large sterile sheet, yes hand hygiene, yes chlorhexidine prep Central Line Postion: internal jugular (L) Complications: none Central Line Post Position: sutured, good blood return, position confirmed w / CXR Attempts: One Patient Tolerated: Well Complications: None Medical Decision Making Diagnostic Impression: Primary Impression: Septic shock Additional Impressions: Healthcare-associated pneumonia Acute and chronic respiratory failure with hypoxia ARF (acute renal failure) Qualified Codes: N17.9 - Acute kidney failure, unspecified Anemia Qualified Codes: D64.9 - Anemia, unspecified Asymptomatic bacteriuria ER Course Patient presents with fever and hypoxia and hypotension. Patient has septic shock. Heart rate responded with Tylenol and IV fluid. Blood pressure improved but continued to dip down in the 80s and 90s. I place a central line and started on Levothroid. Patient condition is critical. He has bilateral infiltrate on the chest x-ray. I discussed the case with Dr. Jacobo who will admit. Lab Results Impression labs with acute renal failure EKG Diagnostic Results Rate: tachycardiac Rhythm: NSR ST Segments: other - NSST changes Rhythm Strip Diag. Results EP Interpretation: yes Rate: 120 Rhythm: NSR, no PVC's, no ectopy Chest X-Ray Diagnostic Results Chest X-Ray Diagnostic Results #1: Chest X-Ray Ordered: Yes # of Views/Limited/Complete: 1 View Indication: Shortness of Breath EP Interpretation: Yes Interpretation: no effusion, no pneumothorax, other - Bilateral infiltrates Impression: Other - b/l infiltrates Electronically Signed by: Viet Hernandez MD Chest X-Ray Diagnostic Results #2: Chest X-Ray Ordered: Yes # of Views/Limited/Complete: 1 View Indication: Shortness of Breath EP Interpretation: Yes Interpretation: no effusion, no pneumothorax, other - s/p central line. b/l infiltrates Impression: Other - s/p central line. b/l infiltrates Electronically Signed by: Viet Hernandez MD Last Vital Signs Date Time Temp Pulse Resp B/P (MAP) Pulse Ox O2 Delivery O2 Flow Rate FiO2 02/28/19 00:21 141 40 146/124 88 Room Air Status: improved Disposition: ADMITTED INPATIENT Condition: Critical Viet Hernandez MD Feb 28, 2019 00:52
[2019-02-28 00:56] LABS: HEMOGLOBIN 11.9 G/DL (14.2-18.0); MEAN CORPUSCULAR VOLUME 78 FL (80-99); PLATELET COUNT 347 K/UL (150-450); RED BLOOD COUNT 4.75 M/UL (4.70-6.10); RED CELL DISTRIBUTION WIDTH 15.3 % (11.6-14.8); WHITE BLOOD COUNT 14.8 K/UL (4.8-10.8)
[2019-02-28] MEDS ORDERED: Piperacillin/Tazobactam 3.375 GM in NS 110 ML IVPB ONE (01:00)
[2019-02-28 01:06] LABS: ANION GAP 18 mmol/L (5-15); BLOOD UREA NITROGEN 82 mg/dL (7-18); CALCIUM 8.7 MG/DL (8.5-10.1); CARBON DIOXIDE 23 MMOL/L (21-32); CHLORIDE 108 MMOL/L (98-107); POTASSIUM 3.9 MMOL/L (3.5-5.1); SODIUM 148 MMOL/L (136-145)
[2019-02-28 01:15] LABS: BILIRUBIN, URINE NEGATIVE (NEGATIVE); GLUCOSE, URINE (UA) NEGATIVE (NEGATIVE); KETONES,URINE NEGATIVE (NEGATIVE); NITRITE,URINE NEGATIVE (NEGATIVE); PH,URINE 9 (4.5-8.0); PROTEIN,URINE 4+ (NEGATIVE); UROBILINOGEN,URINE NORMAL MG/DL (0.0-1.0)
[2019-02-28 01:16] LABS: APPEARANCE,URINE CLOUDY; COLOR,URINE YELLOW; LEUKOCYTE ESTERASE ,URINE 1+ (NEGATIVE)
[2019-02-28 01:19] LABS: ALANINE AMINOTRANSFERASE 35 U/L (12-78); ALBUMIN 1.7 G/DL (3.4-5.0); ALBUMIN/GLOBULIN RATIO 0.3 (1.0-2.7); ALKALINE PHOSPHATASE 133 U/L (46-116); ASPARTATE AMINO TRANSFERASE 28 U/L (15-37); BILIRUBIN,TOTAL 0.4 MG/DL (0.2-1.0); CKMB 2.7 NG/ML (0.0-3.6); CREATINE KINASE 322 U/L (26-308)
[2019-02-28 01:21] LABS: INR 1.2 (0.9-1.1)
--- NOTE | 2019-02-28 03:22 | NUR ---
ER Nurse Note: Pt BP decreasing. ERMD aware; 18gauge inserted in EJ infusing NS. After Pt has a boot on left foot; left foot is wrapped with kerlix covering three wounds on the foot. Right grewal wound, redness, dressing applied. Discoloration on the right sacral. Will continue to montior.
--- NOTE | 2019-02-28 04:09 | NUR ---
ER Nurse Note: Central line inserted by ERMD. Chest x-ray confirmed placement of central line; cleared to use. Pt on norepinephrine 8mcg/min. Pt moaning, mouth breathing. Will continue to montior.
--- NOTE | 2019-02-28 04:22 | NUR ---
ED Nurse Note: covering for primary nurse while on break, pt in bed awake with eyes open, moaning and groaning, pt is on cardiac monitoring and levophed for pressure, running at 8mcg, pt b/p =106/61, 105, tolerating well, will re-check per protocol, pt repositioned and turned with pillow support, central line in left neck intact and patent, will continue to closely monitor.
--- NOTE | 2019-02-28 04:37 | NUR ---
ED Nurse Note: Pt b/p decreasing after 2-3 cycles, levophed titrated up by 2mcg, will re-check every 5 minutes per protocol and adjust as needed.
--- NOTE | 2019-02-28 05:20 | NUR ---
ER Nurse Note: Titrated levo drip to 14mcg/min. Will continue to montior pt and BP.
--- NOTE | 2019-02-28 05:45 | NUR ---
NURSE NOTES:Received from ER 83 y.o male with Dx resp, failure , sepsis and PNA. pt is incomprehensible and respond to pain stimuli only, pt was hypotensive in Er and currently of Levophed drip at 20mcg/min infusing to left IJ. TLC. site with drsg dry and intact, Pt is contracted with multiple wounds, Picture taken done, Tx was initiated , Dr Mario was notified with orders given. St on the monitor Bp labile, afebrile.Anderson to gravity with concentrated pus colored urine. _ Will continue to monitor.
--- NOTE | 2019-02-28 05:50 | NUR ---
ER Nurse Note: Report given to JOSE Rob in ICU for continuity of care. Pt on levo drip, 14 mcg/min.;m BP 95/56. No belongings with pt.
--- NOTE | 2019-02-28 07:52 | NUR ---
HAND-OFF: Report given to belinda garcia using sbar.
[2019-02-28] MEDS ORDERED: Vancomycin 1gm/D5W 275ml IVPB SCH ×2 (08:00)
--- NOTE | 2019-02-28 08:00 | NUR ---
NURSE NOTES: Received patient from JOSE Rodriguez. Pt is obtunded, non verbal, here for severe sepsis and pneumonia. BP 87/60, HR 119, temp of 100, RR 30, 02 96% with 10L non rebreather. Pt has g-tube, clamped and NPO at the moment. Pt has aguilera, no output, dr aware. Pt is contracted with multiple wounds, will consult with wound care nurse. 3 peripheral IV's and central line on left EJ TLC. Levo running at 30 mcg. Safety measures in place. Will contact Dr. Dave for more orders. will continue to monitor.
--- NOTE | 2019-02-28 08:48 | NUR ---
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 [place] [facility] [place]:DYSPNEA/RESPIRATORY SI:SEVER SEPSIS . ACUTE ON CHRONIC RESPIRATORY FAILURE WITH HYPOXIA . PNEUMONIA VS: BP 146/124, P 141, T 101.6, RR 40, SpO2 88 V.MASK 15.0L O2 WBC 14.8, Hgb 11.9, Hct 37.0, Na 148, BUN 82, CR 3.0, Urine Protein 4+ IS:NS x1.6L IVLG LEVOFLOXACIN 100ml IVPB PIPERACILLIN/TAZOBACTAM/NS 110ml IVPB NOREPINEPHRINE BITARTRATE 250ml IV ADMITTED TO ICU DC: PLAN RETURN TO [facility]
[2019-02-28] MEDS: DOPamine 400mg/250ml 250 ML IV SCH (09:56)
[2019-02-28] MEDS: Piperacillin/Tazobactam 3.375 GM in NS 110 ML IVPB SCH ×2 (10:00→21:00)
--- NOTE | 2019-02-28 10:00 | NUR ---
NURSE NOTES: Pt switched to venturi mask 50%. Will continue plan of care.
--- NOTE | 2019-02-28 10:04 | Diagnostic Imaging Report ---
Indication: Status post central line placement Technique: One view of the chest Comparison: 3 hours earlier Findings: Interim placement left jugular central venous catheter, tip which projects at the level of the mid superior vena cava. There is apparent increasing bilateral perihilar interstitial and airspace disease, although this may in part be an artifact of less optimal exposure technique. No pneumothorax. Pleural spaces are clear. The heart size is normal Impression: Satisfactory left jugular central venous catheter placement, no radiographically evident complication Stable or slightly worse bilateral interstitial and airspace infiltrates versus edema
--- NOTE | 2019-02-28 10:08 | Diagnostic Imaging Report ---
Indication: Shortness of breath Technique: One view of the chest Comparison: 04/24/2018 Findings: Interim development of bilateral interstitial edema. Pleural spaces are clear. The heart size is normal. The aorta is tortuous ectatic and calcified. Impression: Bilateral interstitial edema, developing since 04/24/2018
[2019-02-28] MEDS: Albuterol/Ipratropium 3ml neb HHN SCH ×4 (11:05→22:42)
--- NOTE | 2019-02-28 12:00 | NUR ---
NURSE NOTES: Additional order of dopamine added, BP 118/60.
--- NOTE | 2019-02-28 13:02 | Pulmonolgy Critical Care Note ---
Critical Care - Asmt/Plan Assessment/Plan: Pulmonary CCM Consultation HPI Patient is an 83-year-old male with a history of Dementia, Schizophrenia, Bed bound in Custodial, HTN, Atrial fibrillation, COPD, previous pneumonia, feeding tube. Admitted with multiple decubitus ulcers, poorly nourished, shortness of breath. Noted to be septic in the ED with evidence of pneumonia, multiple skin wounds. Unable to get any history from this patient because of his condition and nonverbal. Allergies: No Known Allergies Patient History Past Medical History: Dementia, Schizophrenia, Bed bound in Custodial, Hypertension, Atrial fibrillation, COPD, previous pneumonia, feeding tube Past Surgical History: G tube All Other Systems: limited - Secondary to condition Physical Exam Vital Signs Noted, on pressors Date Time Temp Pulse Resp B/P (MAP) Pulse Ox O2 Delivery O2 Flow Rate FiO2 02/28/19 00:21 141 40 146/124 88 Room Air General Appearance: moderate distress, cachetic, Chronically Ill, wasted Head: normocephalic, atraumatic Eyes: bilateral eye PERRL, bilateral eye EOMI ENT: hearing grossly normal, dry mucus membranes Neck: full range of motion, supple, no meningismus Respiratory: chest non-tender, no current respiratory distress on O2, occaional rhonchi Cardiovascular: regular, rhythm, no murmur, tachycardia Gastrointestinal: normal bowel sounds, non tender, no mass, no organomegaly, no bruit, non-distended Musculoskeletal: back normal, other - Contracted Psychiatric: mood/affect normal Skin: warm/dry, multiple decubitus ulcer LE, sacral area Impression: Pneumonia Septic shock Acute and chronic respiratory failure with hypoxia Acute renal failure Anemia Dementia Schizophrenia Previous Hypertension H/o Atrial fibrillation COPD Previous aspiration pneumonia S/p feeding tube Plan IV Antibiotics IV Fluids Levophed PRN O2 PRN PPX HHN EKG Rate: tachycardiac Rhythm: NSR ST Segments: other - NSST changes Chest X-Ray: no effusion, no pneumothorax, other - Bilateral infiltrates Critical Care - Objective Last 24 Hour Vital Signs Date Time Temp Pulse Resp B/P (MAP) Pulse Ox O2 Delivery O2 Flow Rate FiO2 02/28/19 11:10 110 22 95 Nasal Cannula 4.0 36 02/28/19 11:06 111 22 Nasal Cannula 4.0 36 02/28/19 11:05 111 22 95 Nasal Cannula 4.0 36 02/28/19 09:56 82/54 02/28/19 09:04 99 Nasal Cannula 4.0 36 02/28/19 09:04 Nasal Cannula 4.0 36 02/28/19 08:00 Nasal Cannula 2.0 02/28/19 07:45 82/54 02/28/19 07:29 80 02/28/19 07:15 101 29 82/54 (63) 02/28/19 07:03 102 28 81/47 (58) 02/28/19 07:00 101 25 64/46 (52) 02/28/19 06:59 101 26 80/48 (59) 02/28/19 06:45 99 27 02/28/19 06:40 99 26 74/40 (51) 100 02/28/19 06:37 69/51 (57) 02/28/19 05:50 100.5 100 24 95/56 100 Venturi Mask 15.0 02/28/19 05:50 100.5 100 24 95/56 100 Venturi Mask 15.0 02/28/19 05:47 95/56 02/28/19 05:32 92/54 02/28/19 05:17 86/52 02/28/19 05:03 100.5 02/28/19 05:02 88/54 02/28/19 04:47 93/74 02/28/19 04:42 83/66 02/28/19 04:37 77/55 02/28/19 04:22 100.5 105 29 106/61 100 Venturi Mask 15.0 02/28/19 04:22 106/61 02/28/19 04:07 88/52 02/28/19 03:04 Nasal Cannula 2.0 02/28/19 03:01 100.5 106 23 91/45 100 Venturi Mask 15.0 02/28/19 02:03 110 28 122/58 100 15.0 02/28/19 00:40 141 40 Room Air 02/28/19 00:40 101.6 114 40 146/124 88 Room Air 02/28/19 00:21 141 40 146/124 88 Room Air Micro: Microbiology Date/Time Source Procedure Growth Status 02/28/19 05:50 Rectum Received Critical Care - Subjective ROS Limited/Unobtainable: Yes Condition: critical IV Access: central FI02: 36 Sputum Amount: None I&O: Intake and Output 02/27/19 02/28/19 19:00 07:00 Intake Total 8810 ml Output Total 100 ml Balance 8710 ml Intake IV Total 8810 ml Output Urine Total 100 ml Christopher Rogers MD Feb 28, 2019 13:02
--- NOTE | 2019-02-28 13:52 | NUR ---
RD ASSESSMENT & RECOMMENDATIONS SEE CARE ACTIVITY FOR COMPLETE ASSESSMENT DAILY ESTIMATED NEEDS: Needs based on advanced wounds / 53.1kg 30-35 kcals/kg 1593- 1858 total kcals 1.5-2.0 g protein/kg 79-106 g total protein 25-30 mL/kg 5001-6307 total fluid mLs NUTRITION DIAGNOSIS: * Swallowing difficulty R/T dysphagia as evidenced by pt GT dep. * Increased kcal/pro needs R/T wound healing as evidenced by pt admitted w/ multiple advanced wounds @ lt foot, lt trochanter, sacral and rt grewal, pending eval. CURRENT TF:NPO ENTERAL NUTRITION RECOMMENDATIONS: Jevity 1.2 @ 60ml/hr x 24 hrs + Prosource 1pkt BID to provide 1440ml, 1728kcal, 79g + 22g prot, 1162ml free water WITH HEMODYNAMIC STABILITY, initiate TF * Initiate Jevity 1.2 @ 20ml/hr x 6 hrs, advance 10ml q 4-6 hrs as tolerated to goal rate. * Add Prosource 1pkt BID to meet protein needs * HOB over 30 degrees/ water flush per MD --- WITHOUT HEMODYNAMIC STABILITY * Rec trophic feeds of Jevity 1.2 @ 10-15ml/hr x 24 hrs ADDITIONAL RECOMMENDATIONS: * Calibrated bedscale wt for accurate CBW * WOUND HEALING: add Simon 1pkt BID, Vit C 500mg BID :follow up w/ wound care eval * Monitor lytes, replete as needed * Monitor HD stability and ability to feed . .
--- NOTE | 2019-02-28 14:00 | NUR ---
NURSE NOTES: Contacted Dr. Bae regarding pt having no output all day. bladder scanner was done and no risidual. Dr aware and stated to continue to monitor.
--- NOTE | 2019-02-28 15:05 | NUR ---
NURSE NOTES:WOUND CARE NOTES:Pt presented on admission with contractures both lower ext with multiple necrotic wounds L trochanter,R tibia, and L foot. Lateral L foot (L)3.5cm x (W)11cm.90%Soft necrosis with surrounding slough along borders.Wound is malodorous. Small amt brown exudate noted.Greyish colour periwound. L Lateral metatarsal to L hallux (L)4.3cm x (W)6.9cm . Base of wound necrotic with area of fluctuance at lateral aspect L1st metatarsal.Wound is malodorous with small amt brownish exudate Greyish colour periwound. Lateral L heel (L)3cm x (W)6.6cm.100%Unstable necrosis base of wound with surrounding mixed soft slough with erythema.Wound is malodorous. Wound is malodorous with small amt brownish exudate. Plantar L foot (L)2.5cm x (W)1.5cm Unstable necrosis with indurated borders. No exudate noted. All 5 metatarsals are burgess in colour. Full thickness pressure injury R tibia(L)6.5cm x (W)1cm. elongated wound with indurated red borders,10% necrosis at proximal end with #2 areas of slough-approx 10% with erythema that is dry remaining base of wound .No odor noted. Non-blanchable erythema with scattered purple areas medial L tibia(L)5.7cm x (W)4.5cm.Site without fluctuance or induration .No elevation in skin temp. Dorsal R 2nd metatarsal head maroon with fluctuance.(L)0.8cm x (W)1.3cm. R heel boggy with non-blanchable erythema. Pressure injury to L trochanter 90% necrotic,dry with pink epithelialized borders. Dark skin tone without erythema or induration periwound .In close proximity is an area with pink epithelial tissue with a linear area in center that is brown but dry and adherent to base. Resolving pressure injury to sacrum.95% epithelial at base of wound .Small area at coccyx measuring(L)0.4cm x (W)0.3cm with yellow slough.No exudate noted. Areas of hyperpigmentation scarring noted to R and L ischial areas. Tx.Plan:Cleanse L trochanter with Saline. Apply Therahoney to L trochanter.Apply Cavilon Skin Barrier periwound. Cover with Optifoam drsg. Change daily and PRN. Cleanse R tibia with Saline.Apply Therahoney. Cavilon Skin Barrier periwound.Cover with Optifoam drsg. Change Daily and prn. Apply Cavilon Skin Barrier to L medial /idalia L tibia .Cover with Optifoam drsg. Change every 7 days and prn. Apply Cavilon Skin BArrier to R heel. Cover with Optifoam drsg.Change every 7 days and PRN. Cleanse coccygeal wound with saline. Apply Therahoney.Apply Triad Paste periwound to sacrum. Cover with Optifoam drsg. Change Daily and prn. APM/KAVON Mattress overlay. Reposition at least every 2hours or as tolerated. Place Pillow between knees . Off-load heels with pillow. Addendum: 03/01/19 at 0842 by Kelsey Ramirez LVN ADDENDUM TO ABOVE WOUND NOTES :TX.ORDERS: Cleanse L trochanter with Saline.Apply Dakin's 0.125% daysi soaked gauze to L trochanter. Apply Cavilon Skin Barrier periwound. Cover with Optifoam drsg. Change daily and prn. Cleanse R Tibia with Saline.Apply Dakin's 0.125% daysi soaked gauze to R tibia.Apply Cavilon Skin Barrier Periwound.Cover with OPtifoam drsg Daily and prn.
--- NOTE | 2019-02-28 16:00 | NUR ---
NURSE NOTES: pt intubated at 1555 with ETT 7.5 placed 26cm at the lip. chest xray ordered. vent settings per Dr. Quiñones AC 16 600 100% +5 and to titrate fio2 accordingly. will continue plan of care.
--- NOTE | 2019-02-28 16:07 | Operative Note - PDOC ---
Operative Note Operative Note Date of Operation/Procedure: Feb 28, 2019 Pre-op Diagnosis: respiratory distress, hypoxia, tachycardia, hypotension, sepsis, critical care Procedure: endotracheal tube intubation Post-op Diagnosis: same as pre-op Surgeon: yuni Anesthesia: other - etomidate / suc Specimen: none Complications: none Condition: unstable Estimated Blood Loss: none Drains: none Implant(s) used?: No Indications for Procedure 83 year old male with multiple medical comorbidities admitted to ICU in septic shock with tachycardia, hypotension, sepsis, went into respiratory depression with hypoxia requiring bag mask ventilation. Intubation indicated and recommended. patient medicated and procedure performed at bedside. Description of Procedure patient placed in supine position. bag masked until oxygenated. given etomidate and succinylcholine. once ready suction performed and cords visualized with MAC blade. 7.5F ET tube placed without complication. tube at 26cm at lip. color changed noted. oxygenation improved. bilateral breath sounds with end tidal co2. CXR ordered. tube secured. Rios Quiñones Feb 28, 2019 16:07
--- NOTE | 2019-02-28 16:43 | Consultation ---
History of Present Illness General Date patient seen: Feb 28, 2019 Chief Complaint: Dyspnea/Respdistress Present Illness HPI This is a 83-year-old male who presented to [facility] with acute worsening respiratory distress and shortness of breath. Patient was noted to be septic tachycardic hypotensive tachypneic with a leukocytosis and abnormal electrolytes. Patient was admitted to the intensive care unit for care and management. Surgery was called to assist with care. Patient identified to have multiple large abnormal wounds on the lower extremities. Furthermore during evaluation patient was noted to be acutely desaturating and decompensating requiring bag mask ventilation while on pressors and decompensating. Patient was intubated at bedside by myself.. See note for details Allergies: Coded Allergies: No Known Allergies (Unverified , 02/25/19) Medication History Scheduled Ascorbic Acid* (Vitamin C*), 500 MG ORAL DAILY, (Reported) Docusate Sodium (Docusate Sodium), 100 MG ORAL DAILY, (Reported) Metoprolol Tartrate (Metoprolol Tartrate), 12.5 MG ORAL Q12HR Pantoprazole* (Protonix*), 40 MG ORAL DAILY Scheduled PRN Acetaminophen* (Tylenol Extra Strength*), 500 MG ORAL Q6H PRN for Mild Pain/ Temp > 100.5, (Reported) Patient History Limited by: medical condition History Provided By: Medical Record, PMD Healthcare decision maker N Resuscitation status Advanced Directive on File Past Medical/Surgical History Past Medical/Surgical History: (1) Sepsis (2) Dysphagia (3) Gastroparesis (4) Encounter for PEG (percutaneous endoscopic gastrostomy) (5) Alzheimer disease (6) Septic shock (7) Asymptomatic bacteriuria (8) ARF (acute renal failure) (9) Healthcare-associated pneumonia (10) Acute and chronic respiratory failure with hypoxia (11) Anemia (12) Pneumonia (13) Severe sepsis Review of Systems ROS Narrative Cannot obtain given patient's current medical status. Physical Exam General Appearance: moderate distress Lines, tubes and drains: peripheral, central line HEENT: normocephalic, mucous membranes moist Neck: normal inspection, other - Lines Respiratory/Chest: respiratory distress, accessory muscle use, stridor Cardiovascular/Chest: tachycardia Abdomen: soft, no organomegaly, no mass Extremities: inflammation, other Skin Exam: other Last 24 Hour Vital Signs Date Time Temp Pulse Resp B/P (MAP) Pulse Ox O2 Delivery O2 Flow Rate FiO2 02/28/19 16:17 125 31 100 02/28/19 16:11 Mechanical Ventilator 100 02/28/19 16:11 Mechanical Ventilator 100 02/28/19 14:00 99 30 115/60 (78) 96 02/28/19 13:00 98 30 118/64 (82) 95 02/28/19 12:00 Venturi Mask 10.0 02/28/19 12:00 99 02/28/19 12:00 115/60 02/28/19 12:00 98.9 101 30 121/60 (80) 95 02/28/19 11:10 110 22 95 Nasal Cannula 4.0 36 02/28/19 11:06 111 22 Nasal Cannula 4.0 36 02/28/19 11:05 111 22 95 Nasal Cannula 4.0 36 02/28/19 11:00 105 30 92/50 (64) 95 02/28/19 10:00 105 30 110/59 (76) 95 02/28/19 09:56 82/54 02/28/19 09:04 99 Nasal Cannula 4.0 36 02/28/19 09:04 Nasal Cannula 4.0 36 02/28/19 09:00 105 30 101/59 (73) 95 02/28/19 08:00 110 02/28/19 08:00 98.7 101 30 99/60 (73) 95 02/28/19 08:00 Nasal Cannula 2.0 02/28/19 07:45 82/54 02/28/19 07:29 80 02/28/19 07:15 101 29 82/54 (63) 02/28/19 07:03 102 28 81/47 (58) 02/28/19 07:00 101 25 64/46 (52) 02/28/19 06:59 101 26 80/48 (59) 02/28/19 06:45 99 27 02/28/19 06:40 99 26 74/40 (51) 100 02/28/19 06:37 69/51 (57) 02/28/19 05:50 100.5 100 24 95/56 100 Venturi Mask 15.0 02/28/19 05:50 100.5 100 24 95/56 100 Venturi Mask 15.0 02/28/19 05:47 95/56 02/28/19 05:32 92/54 02/28/19 05:17 86/52 02/28/19 05:03 100.5 02/28/19 05:02 88/54 02/28/19 04:47 93/74 02/28/19 04:42 83/66 02/28/19 04:37 77/55 02/28/19 04:22 100.5 105 29 106/61 100 Venturi Mask 15.0 02/28/19 04:22 106/61 02/28/19 04:07 88/52 02/28/19 03:04 Nasal Cannula 2.0 02/28/19 03:01 100.5 106 23 91/45 100 Venturi Mask 15.0 02/28/19 02:03 110 28 122/58 100 15.0 02/28/19 00:40 141 40 Room Air 02/28/19 00:40 101.6 114 40 146/124 88 Room Air 02/28/19 00:21 141 40 146/124 88 Room Air Intake and Output 02/27/19 02/28/19 19:00 07:00 Intake Total 8810 ml Output Total 100 ml Balance 8710 ml Intake IV Total 8810 ml Output Urine Total 100 ml Laboratory Tests Test 02/28/19 00:35 02/28/19 02:08 02/28/19 08:15 02/28/19 09:17 White Blood Count 14.8 K/UL (4.8-10.8) H Red Blood Count 4.75 M/UL (4.70-6.10) Hemoglobin 11.9 G/DL (14.2-18.0) L Hematocrit 37.0 % (42.0-52.0) L Mean Corpuscular Volume 78 FL (80-99) L Mean Corpuscular Hemoglobin 25.1 PG (27.0-31.0) L Mean Corpuscular Hemoglobin Concent 32.2 G/DL (32.0-36.0) Red Cell Distribution Width 15.3 % (11.6-14.8) H Platelet Count 347 K/UL (150-450) Mean Platelet Volume 6.5 FL (6.5-10.1) Neutrophils (%) (Auto) % (45.0-75.0) Lymphocytes (%) (Auto) % (20.0-45.0) Monocytes (%) (Auto) % (1.0-10.0) Eosinophils (%) (Auto) % (0.0-3.0) Basophils (%) (Auto) % (0.0-2.0) Prothrombin Time 12.1 SEC (9.30-11.50) H Prothromb Time International Ratio 1.2 (0.9-1.1) H Activated Partial Thromboplast Time 26 SEC (23-33) Urine Color Yellow Urine Appearance Cloudy Urine pH 9 (4.5-8.0) Urine Specific [place] 1.015 (1.005-1.035) Urine Protein 4+ (NEGATIVE) H Urine Glucose (UA) Negative (NEGATIVE) Urine Ketones Negative (NEGATIVE) Urine Blood Negative (NEGATIVE) Urine Nitrite Negative (NEGATIVE) Urine Bilirubin Negative (NEGATIVE) Urine Urobilinogen Normal MG/DL (0.0-1.0) Urine Leukocyte Esterase 1+ (NEGATIVE) H Urine RBC 0-2 /HPF (0 - 0) H Urine WBC 0-2 /HPF (0 - 0) Urine Squamous Epithelial Cells None /LPF (NONE/OCC) Urine Triple Phosphate Crystals Moderate /LPF (NONE) H Urine Amorphous Sediment Many /LPF (NONE) H Urine Bacteria Many /HPF (NONE) H Sodium Level 148 MMOL/L (136-145) H Potassium Level 3.9 MMOL/L (3.5-5.1) Chloride Level 108 MMOL/L (98-107) H Carbon Dioxide Level 23 MMOL/L (21-32) Anion Gap 18 mmol/L (5-15) H Blood Urea Nitrogen 82 mg/dL (7-18) H Creatinine 3.0 MG/DL (0.55-1.30) H Estimat Glomerular Filtration Rate mL/min (>60) Glucose Level 103 MG/DL (74-106) Lactic Acid Level 12.40 mmol/L (0.4-2.0) H 5.80 mmol/L (0.66-2.22) H 5.10 mmol/L (0.4-2.0) H Calcium Level 8.7 MG/DL (8.5-10.1) Total Bilirubin 0.4 MG/DL (0.2-1.0) Aspartate Amino Transf (AST/SGOT) 28 U/L (15-37) Alanine Aminotransferase (ALT/SGPT) 35 U/L (12-78) Alkaline Phosphatase 133 U/L (46-116) H Total Creatine Kinase 322 U/L (26-308) H Creatine Kinase MB 2.7 NG/ML (0.0-3.6) Creatine Kinase MB Relative Index 0.8 Troponin I 0.050 ng/mL (0.000-0.056) 0.433 ng/mL (0.000-0.056) Total Protein 6.8 G/DL (6.4-8.2) Albumin 1.7 G/DL (3.4-5.0) L Globulin 5.1 g/dL Albumin/Globulin Ratio 0.3 (1.0-2.7) L Arterial Blood pH 7.429 (7.350-7.450) Arterial Blood Partial Pressure CO2 27.9 mmHg (35.0-45.0) L Arterial Blood Partial Pressure O2 90.0 mmHg (75.0-100.0) Arterial Blood HCO3 18.1 mmol/L (22.0-26.0) L Arterial Blood Oxygen Saturation 96.1 % (95-100) Arterial Blood Base Excess -5.3 (-2-2) L Rhett Test Positive Test 02/28/19 14:00 Troponin I 1.426 ng/mL (0.000-0.056) Microbiology Date/Time Source Procedure Growth Status 02/28/19 05:50 Rectum Received Height (Feet): 5 Height (Inches): 4.00 Weight (Pounds): 119 Medications Current Medications Medications (Trade) Dose Ordered Sig/Mckenzie Route PRN Reason Start Time Stop Time Status Last Admin Dose Admin Albuterol/ Ipratropium (Albuterol/ Ipratropium) 3 ml Q4HRT HHN 02/28/19 11:00 03/05/19 10:59 02/28/19 11:05 Dopamine HCl/ Dextrose 250 ml @ 0 mls/hr Q24H IV 02/28/19 09:45 03/30/19 09:44 02/28/19 09:56 Heparin Sodium (Porcine) (Heparin 5000 units/ml) 5,000 units EVERY 12 HOURS SUBQ 02/28/19 21:00 03/30/19 20:59 Norepinephrine Bitartrate 4 mg/ Dextrose 250 ml @ 0 mls/hr Q24H IV 02/28/19 07:45 03/30/19 07:44 02/28/19 12:00 Pantoprazole (Protonix) 40 mg DAILY IVP 03/01/19 09:00 03/31/19 08:59 Piperacillin Sod/ Tazobactam Sod 3.375 gm/Sodium Chloride 110 ml @ 27.5 mls/hr Q12HR IVPB 02/28/19 10:00 03/07/19 09:59 02/28/19 10:00 Sodium Chloride 1,000 ml @ 150 mls/hr Q6H40M IV 03/01/19 07:45 03/31/19 07:44 Vancomycin HCl (Vanco rx to dose) 1 ea DAILY PRN MISC Per rx protocol 02/28/19 07:45 03/30/19 07:44 Assessment/Plan Problem List: (1) Ulcer of lower extremity excluding decubitus ulcer Assessment & Plan: Pt presented on admission with contractures both lower ext with multiple necrotic wounds L trochanter,R tibia, and L foot. Lateral L foot (L)3.5cm x (W)11cm.90%Soft necrosis with surrounding slough along borders.Wound is malodorous. Small amt brown exudate noted.Greyish colour periwound. L Lateral metatarsal to L hallux (L)4.3cm x (W)6.9cm . Base of wound necrotic with area of fluctuance at lateral aspect L1st metatarsal.Wound is malodorous with small amt brownish exudate Greyish colour periwound. Lateral L heel (L)3cm x (W)6.6cm.100%Unstable necrosis base of wound with surrounding mixed soft slough with erythema.Wound is malodorous. Wound is malodorous with small amt brownish exudate. Plantar L foot (L)2.5cm x (W)1.5cm Unstable necrosis with indurated borders. No exudate noted. All 5 metatarsals are burgess in color. Full thickness pressure injury R tibia(L)6.5cm x (W)1cm. elongated wound with indurated red borders,10% necrosis at proximal end with #2 areas of slough- approx 10% with erythema that is dry remaining base of wound .No odor noted. Non-blanchable erythema with scattered purple areas medial L tibia(L)5.7cm x (W) 4.5cm.Site without fluctuance or induration .No elevation in skin temp. Dorsal R 2nd metatarsal head maroon with fluctuance.(L)0.8cm x (W)1.3cm. R heel boggy with non-blanchable erythema. Pressure injury to L trochanter 90% necrotic,dry with pink epithelialized borders. Dark skin tone without erythema or induration periwound .In close proximity is an area with pink epithelial tissue with a linear area in center that is brown but dry and adherent to base. Resolving pressure injury to sacrum.95% epithelial at base of wound .Small area at coccyx measuring(L)0.4cm x (W)0.3cm with yellow slough.No exudate noted. Areas of hyperpigmentation scarring noted to R and L ischial areas. Tx.Plan: Cleanse L trochanter with Saline. Apply Dakins 1/4% soaked gauze to L trochanter.Apply Cavilon Skin Barrier periwound. Cover with Optifoam drsg. Change daily and PRN. Cleanse R tibia with Saline.Apply Dakins 1/4% soaked gauze. Cavilon Skin Barrier periwound.Cover with Optifoam drsg. Change Daily and prn. Apply Cavilon Skin Barrier to L medial /idalia L tibia .Cover with Optifoam drsg. Change every 7 days and prn. Apply Cavilon Skin Barrier to R heel. Cover with Optifoam drsg.Change every 7 days and PRN. Cleanse coccygeal wound with saline. Apply Therahoney.Apply Triad Paste periwound to sacrum. Cover with Optifoam drsg. Change Daily and prn. APM/KAVON Mattress overlay. Reposition at least every 2hours or as tolerated. Place Pillow between knees . Off-load heels with pillow. ICD Codes: L97.909 - Non-pressure chronic ulcer of unspecified part of unspecified lower leg with unspecified severity SNOMED: 943339570 (2) Septic shock Assessment & Plan: Intubated for airway protection in ICU see note for details cont with vent CXR ABG with trend and wean vent settings trend labs wean pressors fluids willy will monitor prognosis guarded ICD Codes: A41.9 - Sepsis, unspecified organism; R65.21 - Severe sepsis with septic shock SNOMED: 60563648, 775691218 (3) Asymptomatic bacteriuria ICD Codes: R82.71 - Bacteriuria; R65.21 - Severe sepsis with septic shock SNOMED: 065996958, 444088899 (4) ARF (acute renal failure) ICD Codes: N17.9 - Acute kidney failure, unspecified SNOMED: 22630000, 124905512 Qualifiers: Qualified Codes: N17.9 - Acute kidney failure, unspecified (5) Healthcare-associated pneumonia ICD Codes: J18.9 - Pneumonia, unspecified organism; R65.21 - Severe sepsis with septic shock SNOMED: 252443604, 922006565 (6) Acute and chronic respiratory failure with hypoxia ICD Codes: J96.21 - Acute and chronic respiratory failure with hypoxia SNOMED: 55953945, 605059844 (7) Anemia ICD Codes: D64.9 - Anemia, unspecified SNOMED: 365695855 Qualifiers: Qualified Codes: D64.9 - Anemia, unspecified (8) Alzheimer disease ICD Codes: G30.9 - Alzheimer's disease, unspecified; F02.80 - Dementia in other diseases classified elsewhere without behavioral disturbance SNOMED: 95441629 (9) Dysphagia ICD Codes: R13.10 - Dysphagia, unspecified SNOMED: 04432818, 861651463 (10) Sepsis ICD Codes: A41.9 - Sepsis, unspecified organism SNOMED: 45256993 (11) Pneumonia ICD Codes: J18.9 - Pneumonia, unspecified organism SNOMED: 690923296 (12) Gastroparesis ICD Codes: K31.84 - Gastroparesis SNOMED: 761986413 (13) Severe sepsis ICD Codes: A41.9 - Sepsis, unspecified organism; R65.20 - Severe sepsis without septic shock SNOMED: 08059019 (14) Encounter for PEG (percutaneous endoscopic gastrostomy) ICD Codes: Z43.1 - Encounter for attention to gastrostomy SNOMED: 423189067, 255103473 (15) Decubitus ulcer of trochanteric region of left hip ICD Codes: L89.229 - Pressure ulcer of left hip, unspecified stage SNOMED: 629699492 Rios Quiñones Feb 28, 2019 16:43
--- NOTE | 2019-02-28 16:59 | NUR ---
RESPIRATORY NOTE: called to ICU that pt was going to be intubated. pt intubated at 1555 with ETT 7.5 placed 26cm at the lip. waiting on x-ray if ett is placed appropriately. ETT is secured via anchor fast. no prior redness or skin tears before intubation. vent settings per Dr. Quiñones AC 16 600 100% +5 and to titrate fio2 accordingly. alarms are set and audible with vent plugged into red outlet. ambu bag at bedside. will cont to monitor.
--- NOTE | 2019-02-28 17:30 | History and Physical Report ---
DATE OF ADMISSION: 02/28/2019 CHIEF COMPLAINT: Altered level of consciousness and shortness of breath. HISTORY OF PRESENT ILLNESS: This is an 83-year-old male from [facility], who was transferred via 911 due to shortness of breath and altered level of consciousness. The patient is an 83-year-old male who is a bedridden person. He has multiple medical problems. His main issue is multiple decubitus ulcers mainly sacral. The patient was transferred via 911 due to altered level of consciousness. PAST MEDICAL HISTORY: 1. Organic brain syndrome. 2. COPD. 3. Multiple decubitus ulcers mainly sacral. 4. 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 MEDICATIONS: Tylenol p.r.n., ascorbic acid, multivitamin, metoprolol, Protonix, tube feeding. ALLERGIES: No known drug allergies. FAMILY HISTORY: Unobtainable. SOCIAL HISTORY: Unobtainable. The patient has a conservator. PHYSICAL EXAMINATION: GENERAL: This is an elderly male, who is extremely marantic. The patient is otherwise in no acute distress. VITAL SIGNS: Blood pressure is 80 over 40 to 50 on pressors. Heart rate is 100, sinus tachycardia, respirations 20, temperature is 97.6. HEENT: The head is normocephalic and atraumatic. Pupils are equal, round, and reactive to light. NECK: Supple. Trachea midline. There was no lymphadenopathy or thyromegaly. LUNGS: Bilateral rhonchi. SKIN: He has multiple decubitus ulcers including stage IV sacral decubitus, ankle pressure ulcers. ABDOMEN: Soft and nontender. Bowel sounds were active. He has a G-tube. EXTREMITIES: Otherwise notable for advanced muscle wasting. NEUROLOGIC: The patient is alert, but confused. There were no gross focal findings. LABORATORY AND ANCILLARY DATA: CBC shows white count 14,800, hemoglobin 11.9, platelet count 349,000. Chemistry, sodium 148, potassium 3.9, BUN 82, creatinine 3. Alkaline phosphatase 133. CPK 322. Lactic acid 12.4 initially and then 5.8. Chest x-ray showed bilateral infiltrates. ASSESSMENT: Septic shock due to pneumonia and infected decubitus ulcers. PLAN: 1. ICU care. The patient is Full Code. 2. IV antibiotics. 3. ID consult. 4. Keep NPO. 5. Wound care by General Surgery. Ervin Mario M.D. DR: YESICA JOB#: [id number] CC:
--- NOTE | 2019-02-28 18:19 | Cardiology Progress Note ---
Subjective Subjective [id number] Objective Last 24 Hour Vital Signs Date Time Temp Pulse Resp B/P (MAP) Pulse Ox O2 Delivery O2 Flow Rate FiO2 02/28/19 18:02 110/62 02/28/19 17:31 109 34 50 02/28/19 17:00 120 30 112/62 (79) 96 02/28/19 17:00 50 02/28/19 16:17 125 31 100 02/28/19 16:11 Mechanical Ventilator 100 02/28/19 16:11 Mechanical Ventilator 100 02/28/19 16:00 116 02/28/19 16:00 Mechanical Ventilator 15.0 02/28/19 16:00 100 02/28/19 16:00 98.6 116 30 118/63 (81) 95 02/28/19 15:00 106 30 110/80 (90) 96 02/28/19 14:00 99 30 115/60 (78) 96 02/28/19 13:00 98 30 118/64 (82) 95 02/28/19 12:00 Venturi Mask 10.0 02/28/19 12:00 99 02/28/19 12:00 115/60 02/28/19 12:00 98.9 101 30 121/60 (80) 95 02/28/19 11:10 110 22 95 Nasal Cannula 4.0 36 02/28/19 11:06 111 22 Nasal Cannula 4.0 36 02/28/19 11:05 111 22 95 Nasal Cannula 4.0 36 02/28/19 11:00 105 30 92/50 (64) 95 02/28/19 10:00 105 30 110/59 (76) 95 02/28/19 09:56 82/54 02/28/19 09:04 99 Nasal Cannula 4.0 36 02/28/19 09:04 Nasal Cannula 4.0 36 02/28/19 09:00 105 30 101/59 (73) 95 02/28/19 08:00 110 02/28/19 08:00 98.7 101 30 99/60 (73) 95 02/28/19 08:00 Nasal Cannula 2.0 02/28/19 07:45 82/54 02/28/19 07:29 80 02/28/19 07:15 101 29 82/54 (63) 02/28/19 07:03 102 28 81/47 (58) 02/28/19 07:00 101 25 64/46 (52) 02/28/19 06:59 101 26 80/48 (59) 02/28/19 06:45 99 27 02/28/19 06:40 99 26 74/40 (51) 100 02/28/19 06:37 69/51 (57) 02/28/19 05:50 100.5 100 24 95/56 100 Venturi Mask 15.0 02/28/19 05:50 100.5 100 24 95/56 100 Venturi Mask 15.0 02/28/19 05:47 95/56 02/28/19 05:32 92/54 02/28/19 05:17 86/52 02/28/19 05:03 100.5 02/28/19 05:02 88/54 02/28/19 04:47 93/74 02/28/19 04:42 83/66 02/28/19 04:37 77/55 02/28/19 04:22 100.5 105 29 106/61 100 Venturi Mask 15.0 02/28/19 04:22 106/61 02/28/19 04:07 88/52 02/28/19 03:04 Nasal Cannula 2.0 02/28/19 03:01 100.5 106 23 91/45 100 Venturi Mask 15.0 02/28/19 02:03 110 28 122/58 100 15.0 02/28/19 00:40 141 40 Room Air 02/28/19 00:40 101.6 114 40 146/124 88 Room Air 02/28/19 00:21 141 40 146/124 88 Room Air Intake and Output 02/27/19 02/28/19 19:00 07:00 Intake Total 8810 ml Output Total 100 ml Balance 8710 ml Intake IV Total 8810 ml Output Urine Total 100 ml Laboratory Tests Test 02/28/19 00:35 02/28/19 02:08 02/28/19 08:15 02/28/19 09:17 White Blood Count 14.8 K/UL (4.8-10.8) H Red Blood Count 4.75 M/UL (4.70-6.10) Hemoglobin 11.9 G/DL (14.2-18.0) L Hematocrit 37.0 % (42.0-52.0) L Mean Corpuscular Volume 78 FL (80-99) L Mean Corpuscular Hemoglobin 25.1 PG (27.0-31.0) L Mean Corpuscular Hemoglobin Concent 32.2 G/DL (32.0-36.0) Red Cell Distribution Width 15.3 % (11.6-14.8) H Platelet Count 347 K/UL (150-450) Mean Platelet Volume 6.5 FL (6.5-10.1) Neutrophils (%) (Auto) % (45.0-75.0) Lymphocytes (%) (Auto) % (20.0-45.0) Monocytes (%) (Auto) % (1.0-10.0) Eosinophils (%) (Auto) % (0.0-3.0) Basophils (%) (Auto) % (0.0-2.0) Prothrombin Time 12.1 SEC (9.30-11.50) H Prothromb Time International Ratio 1.2 (0.9-1.1) H Activated Partial Thromboplast Time 26 SEC (23-33) Urine Color Yellow Urine Appearance Cloudy Urine pH 9 (4.5-8.0) Urine Specific [place] 1.015 (1.005-1.035) Urine Protein 4+ (NEGATIVE) H Urine Glucose (UA) Negative (NEGATIVE) Urine Ketones Negative (NEGATIVE) Urine Blood Negative (NEGATIVE) Urine Nitrite Negative (NEGATIVE) Urine Bilirubin Negative (NEGATIVE) Urine Urobilinogen Normal MG/DL (0.0-1.0) Urine Leukocyte Esterase 1+ (NEGATIVE) H Urine RBC 0-2 /HPF (0 - 0) H Urine WBC 0-2 /HPF (0 - 0) Urine Squamous Epithelial Cells None /LPF (NONE/OCC) Urine Triple Phosphate Crystals Moderate /LPF (NONE) H Urine Amorphous Sediment Many /LPF (NONE) H Urine Bacteria Many /HPF (NONE) H Sodium Level 148 MMOL/L (136-145) H Potassium Level 3.9 MMOL/L (3.5-5.1) Chloride Level 108 MMOL/L (98-107) H Carbon Dioxide Level 23 MMOL/L (21-32) Anion Gap 18 mmol/L (5-15) H Blood Urea Nitrogen 82 mg/dL (7-18) H Creatinine 3.0 MG/DL (0.55-1.30) H Estimat Glomerular Filtration Rate mL/min (>60) Glucose Level 103 MG/DL (74-106) Lactic Acid Level 12.40 mmol/L (0.4-2.0) H 5.80 mmol/L (0.66-2.22) H 5.10 mmol/L (0.4-2.0) H Calcium Level 8.7 MG/DL (8.5-10.1) Total Bilirubin 0.4 MG/DL (0.2-1.0) Aspartate Amino Transf (AST/SGOT) 28 U/L (15-37) Alanine Aminotransferase (ALT/SGPT) 35 U/L (12-78) Alkaline Phosphatase 133 U/L (46-116) H Total Creatine Kinase 322 U/L (26-308) H Creatine Kinase MB 2.7 NG/ML (0.0-3.6) Creatine Kinase MB Relative Index 0.8 Troponin I 0.050 ng/mL (0.000-0.056) 0.433 ng/mL (0.000-0.056) Total Protein 6.8 G/DL (6.4-8.2) Albumin 1.7 G/DL (3.4-5.0) L Globulin 5.1 g/dL Albumin/Globulin Ratio 0.3 (1.0-2.7) L Arterial Blood pH 7.429 (7.350-7.450) Arterial Blood Partial Pressure CO2 27.9 mmHg (35.0-45.0) L Arterial Blood Partial Pressure O2 90.0 mmHg (75.0-100.0) Arterial Blood HCO3 18.1 mmol/L (22.0-26.0) L Arterial Blood Oxygen Saturation 96.1 % (95-100) Arterial Blood Base Excess -5.3 (-2-2) L Rhett Test Positive Test 02/28/19 14:00 02/28/19 16:45 Troponin I 1.426 ng/mL (0.000-0.056) Arterial Blood pH 7.342 (7.350-7.450) Arterial Blood Partial Pressure CO2 30.0 mmHg (35.0-45.0) L Arterial Blood Partial Pressure O2 139.6 mmHg (75.0-100.0) H Arterial Blood HCO3 15.9 mmol/L (22.0-26.0) *L Arterial Blood Oxygen Saturation 98.3 % (95-100) Arterial Blood Base Excess -8.7 (-2-2) L Rhett Test Positive Microbiology Date/Time Source Procedure Growth Status 02/28/19 05:50 Rectum Received Sally Doty MD Feb 28, 2019 18:19
--- NOTE | 2019-02-28 19:20 | NUR ---
NURSE NOTES: Received patient from JOSE Roblero. Pt is obtunded, non verbal, admitted for severe sepsis and pneumonia. BP 92/58, HR 113, temp of 100, RR32. ETT 7.5/26cm lip line, AC 16, TV 500 Fi02 50% Peep of 5. Pt has g-tube, clamped and NPO. Pt has Anderson, no output, aware per Osbaldo GARCIA. Pt is contracted with multiple wounds, Ordered P200 mattress for wound management. left EJ TLC and Right EJ intact running. On Levo running at 22 mcg/min, Dopamine 10mcg/kg/min, 1/2 NS at 150cc/hr. Safety measures in place. Bed in low position bed alarm on and in low position. Contact isolation maintained and observed. will continue to monitor.
[2019-02-28] MEDS ORDERED: Dyna-Hex 2% Top Sol 2oz TOPIC SCH (20:30)
[2019-02-28] MEDS: Heparin 5000 units/ml inj SUBQ SCH (21:00)
--- NOTE | 2019-02-28 22:00 | Consultation ---
DATE OF CONSULTATION: 02/28/2019 INFECTIOUS DISEASES CONSULTATION This consult is for coverage of Dr. Gomez. CONSULTING PHYSICIAN: Lev Pardo M.D. PRIMARY ATTENDING PHYSICIAN: Ervin Mario M.D. REASON FOR CONSULTATION: Septic shock and pneumonia. HISTORY OF PRESENT ILLNESS: This is an 83-year-old male who is a halfway resident, admitted early this morning with shortness of breath, was found to have fever of 101.6 in ER, had a pulse rate of 141, blood pressure as low as 64/46. The patient has left IJ central line placement, started on antibiotic, started on vasopressor, and transferred to ICU. The patient is not a source of history. PAST MEDICAL HISTORY: Significant for COPD, atrial fibrillation, status post G-tube, dementia, BPH, history of anemia, history of GI bleeding, history of pneumonia in the past, pressure ulcers, and contracture. ALLERGIES: No known drug allergies. MEDICATIONS: Protonix, sodium chloride, heparin, albuterol, ipratropium inhaler, Zosyn, dopamine, vancomycin, norepinephrine. SOCIAL HISTORY: longterm resident. with poor mental and functional status. REVIEW OF SYSTEMS: Unobtainable. PHYSICAL EXAMINATION: VITAL SIGNS: Temperature 100.5, pulse is 110, and blood pressure is 82/54. GENERAL APPEARANCE: Seems to be thin, cachectic. HEAD AND NECK: [place] conjunctiva, ascites, dry mouth. HEART: Tachycardic. LUNGS: Clear. ABDOMEN: Soft. G-tube in place. EXTREMITIES: Has contracted legs. SKIN: Necrobiotic lesion in the left foot area. NEUROLOGIC: Opens eyes, noncommunicative. LABORATORY AND DIAGNOSTIC DATA: Labs; WBC 14.8, hemoglobin 11.9, hematocrit 37, platelets 247,000. Lactic acid is 5.1 coming from 12.4 at the time of admission. , potassium 3.9, chloride 108, bicarbonate 23, BUN 82, creatinine 3, alkaline phosphatase 133, CK 220. Troponin is 0.433. UA showed wbc of 0 to 2, rbc of 0 to 2, and leukocyte esterase 1+. Chest x-ray showed bilateral interstitial and airspace infiltrate versus edema. IMPRESSION: 1. Sepsis with septic shock. Source of infection seems to be pneumonia. 2. Acute renal failure. 3. 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 4. Encephalopathy. 5. Dementia. 6. History of schizophrenia. 7. Status post G-tube placement. RECOMMENDATIONS: Continue with vancomycin and Zosyn. We will ask for urine Legionella antigen. We will ask for sputum culture. We will follow up the blood culture , the clinical course and chest x-ray. At the end of my exam, I thank Dr. Mario for involving me in the care of this patient. Lev Pardo M.D. DR: VLAD JOB#: [id number] CC: HUONG
--- NOTE | 2019-02-28 22:42 | NUR ---
NURSE NOTES: Dr. Rogers came and made aware of ABG result at 1900 per MD changed the fi02 to 450% and ABG in am noted and carried out. RT made aware.
[2019-03-01] VITALS (49 sets, daily range): BP systolic 91–174; BP diastolic 54–127
--- NOTE | 2019-03-01 | NUR ---
NURSE NOTES: Titrate Levophed to 20mcg/min BP 156/58.
[2019-03-01] MEDS: DOPamine 400mg/250ml 250 ML IV SCH ×2 (00:33→19:49)
--- NOTE | 2019-03-01 01:00 | NUR ---
NURSE NOTES: Titrate Dopamine to 8mcg/kg/min and titarte Levophed to 18mcg/min BP 159/84 after repositioning. Charge nurse aware.
--- NOTE | 2019-03-01 01:15 | Consultation ---
DATE OF CONSULTATION: 02/28/2019 CARDIOLOGY CONSULTATION CONSULTING PHYSICIAN: Sally Doty M.D. REFERRING PHYSICIAN: Ervin Mario M.D. REASON FOR EVALUATION: Elevated troponin. HISTORY OF PRESENT ILLNESS: This is a very unfortunate elderly man [id number]/\[id number] was brought from the custodial. He is 83-year-old. He is unresponsive in my understanding at the baseline and he was intubated because of respiratory distress. The patient apparently was brought with a fever, low blood pressure, tachycardia, and respiratory distress. He was hypoxemic. In the emergency department, he required intubation and he was diagnosed with septic shock and placed in ICU. Again, the history is obtainable only from chart review because the patient is unresponsive and as I can see, he is not on any sedation, so this is his probably baseline. He had multiple admissions here for sepsis. He has a history of advanced dementia. He is contractured and he had multiple severe decubitus ulcers. PAST MEDICAL HISTORY: Also significant for atrial fibrillation, COPD, dysphagia, and he has a G-tube. FAMILY HISTORY: Previous drug abuse history. ALLERGIES: Documented that he was not allergic to any medications. REVIEW OF SYSTEMS: Unobtainable as the patient is intubated and he is unresponsive. PHYSICAL EXAMINATION: GENERAL: This is a very ill-appearing, tachypneic, and cachectic man, lying in bed, intubated. VITAL SIGNS: Blood pressure at the present time is 110/60, heart rate is 110 beats per minute, sinus tachycardia, and his oxygen saturation is 98% on 50% FiO2. He is on the ventilator. HEENT: His eyes are closed and his pupils are reactive to light bilaterally. There is no facial droop. There is no rash. NECK: Neck veins are not distended. LUNGS: He has few crackles bilaterally, but no wheezing. HEART: Regular. PMI is in the sixth intercostal space in anterior axillary line. He has slightly diminished S1. He is tachycardic. He has physiologic split of S2. ABDOMEN: Soft. There is a G-tube present. There are no masses palpable. EXTREMITIES: Lower extremities severely contracted in all joints and there are multiple ulcers, which are covered with dressing including sacral and bilateral leg areas. NEUROLOGIC: He is very obtunded and unresponsive. DIAGNOSTIC DATA: His EKG shows sinus tachycardia with Q-waves in II, III, and aVF and poor R-wave progression in precordial leads, slightly decreased voltage. His chest x-ray suggests pneumonia. There is possible atelectasis/infiltrate at the left base and repeated chest x-ray reveals presence of worsening congestive heart failure. LABORATORY DATA: Remarkable for white count 14.8, his hemoglobin 11.9, and platelets 347,000. His troponin was elevated to 1.426, the first one was 0.433 troponin I. His lactic acid was 12.4. His INR was 1.2. Urinalysis is unremarkable. His blood gas was noted. Initial blood gas showed pCO2 was 27, pO2 was 90, and pH 7.42 and a second blood gas at 4:30 revealed presence of pH 7.34, pCO2 was 30, and PO2 was 139 with bicarbonate 15.9. His chemistry revealed creatinine was 3 and BUN is 82. Alkaline phosphatase 133 and total 322. His I's and Os based on current registry, he has a Anderson catheter and the urine output is 100 mL for the last 24 hours. IMPRESSION AND RECOMMENDATION: 1. Septic shock. 2. Sinus tachycardia due to septic shock. 3. Dementia. 4. Advanced decubitus ulcers. 5. Cachexia. 6. Elevated troponin, probably due to MO, type 2. 7. Pneumonia. 8. Respiratory failure. 9. History of atrial fibrillation. PLAN: The patient now in supportive therapy. He is on phenylephrine drip and dopamine drip, and his blood pressure has barely achieved the tolerable result. He is also on IV hydration and he is on respirator and he is on antibiotics for his sepsis. The patient's prognosis is extremely poor due to his cachexia, bedridden status, and respiratory failure. I have agreed with the current vasoactive medications. There is nothing I can add to this considering that he is hypotensive and his tachycardia is an appropriate response to his general condition. The only thing I am going to change is I am going to order 2D echocardiogram and the patient is going to be managed mostly for his noncardiac issues. Thank you very much for your consultation. I will follow this patient with you. Sally Doty M.D. DR: DIMITRY JOB#: [id number] CC:
--- NOTE | 2019-03-01 01:20 | NUR ---
NURSE NOTES: patient still no urine output, bladder scan done with 975cc urine in the bladder, changed Anderson to 18 tajik/10cc balloon with 1000cc tea color urine output with sediments. rechecked bladder scan 0 ml urine in the bladder. urine send to lab. charge nurse aware.
--- NOTE | 2019-03-01 03:00 | NUR ---
NURSE NOTES: Repositioned. Continue on Dopamine 6 mcg/kg/min, and Levophed 18mcg/min BP 91/55 HR 96. Continue cooling measure. No s/s of acute distress noted. Will follow up P200 mattress.
[2019-03-01] MEDS: Albuterol/Ipratropium 3ml neb HHN SCH ×6 (03:12→22:58)
--- NOTE | 2019-03-01 04:00 | NUR ---
NURSE NOTES: Bed bath given. wound care done. temp 98.1 axillary. will continue plan of care.
[2019-03-01 04:21] LABS: HEMATOCRIT 29.2 % (42.0-52.0); HEMOGLOBIN 9.3 G/DL (14.2-18.0); MEAN CORPUSCULAR VOLUME 76 FL (80-99); PLATELET COUNT 223 K/UL (150-450); RED BLOOD COUNT 3.82 M/UL (4.70-6.10); RED CELL DISTRIBUTION WIDTH 15.1 % (11.6-14.8)
[2019-03-01 04:27] LABS: WHITE BLOOD COUNT 36.1 K/UL (4.8-10.8)
[2019-03-01 04:41] LABS: ANION GAP 14 mmol/L (5-15); BLOOD UREA NITROGEN 72 mg/dL (7-18); CARBON DIOXIDE 19 MMOL/L (21-32); CHLORIDE 108 MMOL/L (98-107); CREATININE 2.1 MG/DL (0.55-1.30); PHOSPHORUS 3.4 MG/DL (2.5-4.9); POTASSIUM 3.4 MMOL/L (3.5-5.1); SODIUM 140 MMOL/L (136-145)
--- NOTE | 2019-03-01 06:00 | NUR ---
NURSE NOTES: Repositioned. no s/s of acute distress noted
[2019-03-01] MEDS ORDERED: Levophed 4mg/4mL Inj IV ONE (06:16)
--- NOTE | 2019-03-01 07:28 | NUR ---
HAND-OFF: Report given to Lelia GARCIA.
--- NOTE | 2019-03-01 08:00 | NUR ---
NURSE NOTES: Received patient, opens eyes, non responsive. SR on caridac monitor. INtubated 7.5/26 cm lilline. AC 16 VT 450 FiO2 40% peep of 5. Patient is NPO at the time. Anderson catheter intact. L IJ TLC, R EJ 18. Patient on / NS at 150 cc/hr. Dpamine at 6 mcg/hr. Levophed at 16 mcg/hr. BP stable at this time. G tube clamped. Hyperactive bowel sounds present. Contracted on upper and lower extremities. VSS. No distress noted. Will continue to monitor patient.
--- NOTE | 2019-03-01 08:29 | Critical Care Progress Note ---
Assessment/Plan Assessment/Plan Pneumonia Septic shock Acute and chronic respiratory failure with hypoxia Acute renal failure Anemia Dementia Schizophrenia Previous Hypertension H/o Atrial fibrillation COPD Previous aspiration pneumonia S/p feeding tube PLAN care noted IV antibiotics respiratory care Ventilatory support monitor RR SNF meds supportive care suction no wean for now stabilize further and reassess monitor imaging oxygen therapy prognosis guarded remains critical medications/laboratory data/nursing notes/ICU care reviewed in detail note reviewed and edited care discussed with RN and RT ICU time spent 45 minutes Critical Care - Subjective Interval Events: on vent care noted and reviewed ROS Limited/Unobtainable: Yes Condition: critical EKG Rhythm: Sinus Rhythm I&O: Intake and Output 02/28/19 03/01/19 18:59 06:59 Intake Total 504.052 ml 2602.497 ml Output Total 0 ml 2300 ml Balance 504.052 ml 302.497 ml Intake IV Total 504.052 ml 2602.497 ml Output Urine Total 0 ml 2300 ml # Bowel Movements 4 Critical Care - Objective CXR: bilateral infiltrates ?edema ET-Tube: 7.5 ET Position: 26 Last 24 Hour Vital Signs Date Time Temp Pulse Resp B/P (MAP) Pulse Ox O2 Delivery O2 Flow Rate FiO2 03/01/19 07:03 96 20 100 Mechanical Ventilator 40 03/01/19 07:00 108/62 03/01/19 07:00 108/62 03/01/19 07:00 94 13 108/62 (77) 100 03/01/19 06:53 94 31 100 Mechanical Ventilator 40 03/01/19 06:52 94 31 40 50 03/01/19 06:30 99 24 100 03/01/19 06:30 99 24 133/69 (90) 100 03/01/19 06:20 123/66 03/01/19 06:00 126/80 03/01/19 06:00 126/80 03/01/19 06:00 98 24 123/66 (85) 100 03/01/19 05:30 98 25 117/64 (81) 100 03/01/19 05:11 97 25 40 50 03/01/19 05:00 99 23 114/57 (76) 100 03/01/19 05:00 139/65 03/01/19 05:00 139/65 03/01/19 04:30 97 22 139/65 (89) 100 03/01/19 04:00 98.1 104 23 120/67 (84) 100 03/01/19 04:00 Endotracheal Tube 03/01/19 04:00 96 03/01/19 04:00 120/67 03/01/19 04:00 120/67 03/01/19 03:30 99 27 91/55 (67) 100 03/01/19 03:21 99 25 100 Mechanical Ventilator 40 03/01/19 03:11 93 31 99 Mechanical Ventilator 40 03/01/19 03:10 93 31 40 50 03/01/19 03:00 94 26 121/63 (82) 100 03/01/19 03:00 121/63 03/01/19 03:00 121/63 03/01/19 02:30 99 30 116/58 (77) 100 03/01/19 02:00 116/58 03/01/19 02:00 116/58 03/01/19 02:00 102 31 103/54 (70) 99 03/01/19 01:30 118 35 102/55 (71) 98 03/01/19 01:29 112 34 40 50 03/01/19 01:20 Endotracheal Tube 03/01/19 01:05 131 41 159/84 (109) 92 03/01/19 01:00 159/84 03/01/19 01:00 159/84 03/01/19 01:00 107 37 174/127 (143) 99 03/01/19 00:40 106 36 124/58 (80) 99 03/01/19 00:33 139/60 03/01/19 00:30 111 43 156/58 (90) 99 03/01/19 00:00 112 03/01/19 00:00 99.4 112 39 139/60 (86) 99 03/01/19 00:00 Endotracheal Tube 03/01/19 00:00 156/58 03/01/19 00:00 156/58 02/28/19 23:30 112 39 130/74 (92) 99 02/28/19 23:00 117/72 02/28/19 23:00 117/72 02/28/19 23:00 110 36 117/72 (87) 99 02/28/19 22:50 110 29 100 Mechanical Ventilator 40 02/28/19 22:40 112 41 99 Mechanical Ventilator 40 4/4/19 22:39 112 41 40 50 02/28/19 22:30 113 38 97/48 (64) 99 02/28/19 22:17 103/60 02/28/19 22:16 97/48 02/28/19 22:00 111 37 121/65 (83) 99 02/28/19 22:00 97/48 02/28/19 22:00 97/48 02/28/19 21:30 111 35 114/64 (81) 98 02/28/19 21:00 112 36 102/61 (75) 98 02/28/19 21:00 114/64 02/28/19 21:00 114/64 02/28/19 20:57 116 37 50 50 02/28/19 20:30 109 33 116/70 (85) 100 02/28/19 20:00 98.8 108 31 103/60 (74) 100 02/28/19 20:00 103/60 02/28/19 20:00 103/60 02/28/19 20:00 108 02/28/19 20:00 Endotracheal Tube 02/28/19 19:25 112 17 100 Mechanical Ventilator 50 02/28/19 19:12 117 33 96 Mechanical Ventilator 50 02/28/19 19:10 117 33 50 50 02/28/19 19:00 104/58 02/28/19 19:00 104/58 02/28/19 19:00 120 30 98/64 (75) 96 02/28/19 18:02 110/62 02/28/19 18:00 119 30 110/62 (78) 96 02/28/19 17:31 109 34 50 02/28/19 17:00 120 30 112/62 (79) 96 02/28/19 17:00 50 02/28/19 16:17 125 31 100 02/28/19 16:11 Mechanical Ventilator 100 02/28/19 16:11 Mechanical Ventilator 100 02/28/19 16:00 116 02/28/19 16:00 Mechanical Ventilator 15.0 02/28/19 16:00 100 02/28/19 16:00 98.6 116 30 118/63 (81) 95 02/28/19 15:00 106 30 110/80 (90) 96 02/28/19 14:00 99 30 115/60 (78) 96 02/28/19 13:00 98 30 118/64 (82) 95 02/28/19 12:00 Venturi Mask 10.0 02/28/19 12:00 99 02/28/19 12:00 115/60 02/28/19 12:00 98.9 101 30 121/60 (80) 95 02/28/19 11:10 110 22 95 Nasal Cannula 4.0 36 02/28/19 11:06 111 22 Nasal Cannula 4.0 36 02/28/19 11:05 111 22 95 Nasal Cannula 4.0 36 02/28/19 11:00 105 30 92/50 (64) 95 02/28/19 10:00 105 30 110/59 (76) 95 02/28/19 09:56 82/54 02/28/19 09:04 99 Nasal Cannula 4.0 36 02/28/19 09:04 Nasal Cannula 4.0 36 02/28/19 09:00 105 30 101/59 (73) 95 Labs: Laboratory Tests Test 02/28/19 09:17 02/28/19 14:00 02/28/19 16:45 02/28/19 19:00 Arterial Blood pH 7.429 (7.350-7.450) 7.342 (7.350-7.450) 7.469 (7.350-7.450) Arterial Blood Partial Pressure CO2 27.9 mmHg (35.0-45.0) L 30.0 mmHg (35.0-45.0) L 23.1 mmHg (35.0-45.0) *L Arterial Blood Partial Pressure O2 90.0 mmHg (75.0-100.0) 139.6 mmHg (75.0-100.0) H 80.0 mmHg (75.0-100.0) Arterial Blood HCO3 18.1 mmol/L (22.0-26.0) L 15.9 mmol/L (22.0-26.0) *L 16.4 mmol/L (22.0-26.0) *L Arterial Blood Oxygen Saturation 96.1 % (95-100) 98.3 % (95-100) 96.0 % (95-100) Arterial Blood Base Excess -5.3 (-2-2) L -8.7 (-2-2) L -5.8 (-2-2) L Rhett Test Positive Positive Positive Troponin I 1.426 ng/mL (0.000-0.056) Test 02/28/19 19:37 02/28/19 21:10 03/01/19 01:00 03/01/19 03:25 Lactic Acid Level 3.20 mmol/L (0.4-2.0) H 2.90 mmol/L (0.66-2.22) H Urine Legionella Antigen Pending White Blood Count 36.1 K/UL (4.8-10.8) #*H Red Blood Count 3.82 M/UL (4.70-6.10) L Hemoglobin 9.3 G/DL (14.2-18.0) L Hematocrit 29.2 % (42.0-52.0) L Mean Corpuscular Volume 76 FL (80-99) L Mean Corpuscular Hemoglobin 24.4 PG (27.0-31.0) L Mean Corpuscular Hemoglobin Concent 31.9 G/DL (32.0-36.0) L Red Cell Distribution Width 15.1 % (11.6-14.8) H Platelet Count 223 K/UL (150-450) Mean Platelet Volume 6.8 FL (6.5-10.1) Neutrophils (%) (Auto) % (45.0-75.0) Lymphocytes (%) (Auto) % (20.0-45.0) Monocytes (%) (Auto) % (1.0-10.0) Eosinophils (%) (Auto) % (0.0-3.0) Basophils (%) (Auto) % (0.0-2.0) Neutrophils % (Manual) Pending Lymphocytes % (Manual) Pending Platelet Estimate Pending Platelet Morphology Pending Sodium Level 140 MMOL/L (136-145) Potassium Level 3.4 MMOL/L (3.5-5.1) L Chloride Level 108 MMOL/L (98-107) H Carbon Dioxide Level 19 MMOL/L (21-32) L Anion Gap 14 mmol/L (5-15) Blood Urea Nitrogen 72 mg/dL (7-18) H Creatinine 2.1 MG/DL (0.55-1.30) H Estimat Glomerular Filtration Rate mL/min (>60) Glucose Level 88 MG/DL (74-106) Calcium Level 7.0 MG/DL (8.5-10.1) L Phosphorus Level 3.4 MG/DL (2.5-4.9) Magnesium Level 1.7 MG/DL (1.8-2.4) L Test 03/01/19 04:40 03/01/19 06:50 Lactic Acid Level 1.80 mmol/L (0.4-2.0) Arterial Blood pH 7.460 (7.350-7.450) Arterial Blood Partial Pressure CO2 27.3 mmHg (35.0-45.0) L Arterial Blood Partial Pressure O2 246.0 mmHg (75.0-100.0) H Arterial Blood HCO3 19.4 mmol/L (22.0-26.0) L Arterial Blood Oxygen Saturation 99.1 % (95-100) Arterial Blood Base Excess -3.3 (-2-2) L Rhett Test Positive Objective: WDWN NAD chronically ill orally intubated reduced breath sounds bilaterally without rhonchi or wheeze [id number] without MRG NABS nontender no HSM no CCE nonfocal but poorly responsive reduced ROM- contractures skin noted reviewed and edited tubes noted Micro: Microbiology Date/Time Source Procedure Growth Status 02/28/19 00:35 Blood Blood Culture - Preliminary NO GROWTH AFTER 24 HOURS Resulted 02/28/19 00:30 Blood Blood Culture - Preliminary NO GROWTH AFTER 24 HOURS Resulted 02/28/19 13:06 Sputum Gram Stain - Final Resulted 02/28/19 13:06 Sputum Sputum Culture Pending Resulted 02/28/19 05:50 Rectum Received Tim Andrade MD Mar 01, 2019 08:29
[2019-03-01] MEDS: Heparin 5000 units/ml inj SUBQ SCH ×2 (09:12→20:52)
[2019-03-01] MEDS: Piperacillin/Tazobactam 3.375 GM in NS 110 ML IVPB SCH (09:12)
[2019-03-01] MEDS: Pantoprazole Inj IVP SCH (09:12)
--- NOTE | 2019-03-01 10:00 | NUR ---
NURSE NOTES: Patient turned and repositioned. VSS. No distress noted. Will continue to monitor patient.
--- NOTE | 2019-03-01 10:44 | Infectious Diseases Prog Note ---
Assessment/Plan Assessment/Plan antibiotics : vancomycin iv, zosyn A 1. pneumonia 2. gram negative UTI 3. leucocytosis increased 4. shock 5. respiratory failure 6. schizophrenia 7. renal failure improving 8. dementia P 1. continue iv vancomycin 2. d/c zosyn 3. start meropenem 4. will follow up cultures Subjective ROS Limited/Unobtainable: Yes Allergies: Coded Allergies: No Known Allergies (Unverified , 02/25/19) Objective Vital Signs Last 24 Hour Vital Signs Date Time Temp Pulse Resp B/P (MAP) Pulse Ox O2 Delivery O2 Flow Rate FiO2 03/01/19 10:38 98 25 100 Mechanical Ventilator 40 03/01/19 10:00 90 18 117/66 (83) 100 03/01/19 09:30 91 18 111/64 (80) 100 03/01/19 09:00 97 18 112/66 (81) 100 03/01/19 08:35 97 31 40 50 03/01/19 08:30 88 14 105/60 (75) 100 03/01/19 08:00 94 03/01/19 08:00 Endotracheal Tube 03/01/19 08:00 98.8 90 15 110/64 (79) 100 03/01/19 07:30 95 13 110/65 (80) 100 03/01/19 07:03 96 20 100 Mechanical Ventilator 40 03/01/19 07:00 108/62 03/01/19 07:00 108/62 03/01/19 07:00 94 13 108/62 (77) 100 03/01/19 06:53 94 31 100 Mechanical Ventilator 40 03/01/19 06:52 94 31 40 50 03/01/19 06:30 99 24 100 03/01/19 06:30 99 24 133/69 (90) 100 03/01/19 06:20 123/66 03/01/19 06:00 126/80 03/01/19 06:00 126/80 03/01/19 06:00 98 24 123/66 (85) 100 03/01/19 05:30 98 25 117/64 (81) 100 03/01/19 05:11 97 25 40 50 03/01/19 05:00 99 23 114/57 (76) 100 03/01/19 05:00 139/65 03/01/19 05:00 139/65 03/01/19 04:30 97 22 139/65 (89) 100 03/01/19 04:00 98.1 104 23 120/67 (84) 100 03/01/19 04:00 Endotracheal Tube 03/01/19 04:00 96 03/01/19 04:00 120/67 03/01/19 04:00 120/67 03/01/19 03:30 99 27 91/55 (67) 100 03/01/19 03:21 99 25 100 Mechanical Ventilator 40 03/01/19 03:11 93 31 99 Mechanical Ventilator 40 03/01/19 03:10 93 31 40 50 03/01/19 03:00 94 26 121/63 (82) 100 03/01/19 03:00 121/63 03/01/19 03:00 121/63 03/01/19 02:30 99 30 116/58 (77) 100 03/01/19 02:00 116/58 03/01/19 02:00 116/58 03/01/19 02:00 102 31 103/54 (70) 99 03/01/19 01:30 118 35 102/55 (71) 98 03/01/19 01:29 112 34 40 50 03/01/19 01:20 Endotracheal Tube 03/01/19 01:05 131 41 159/84 (109) 92 03/01/19 01:00 159/84 03/01/19 01:00 159/84 03/01/19 01:00 107 37 174/127 (143) 99 03/01/19 00:40 106 36 124/58 (80) 99 03/01/19 00:33 139/60 03/01/19 00:30 111 43 156/58 (90) 99 03/01/19 00:00 112 03/01/19 00:00 99.4 112 39 139/60 (86) 99 03/01/19 00:00 Endotracheal Tube 03/01/19 00:00 156/58 03/01/19 00:00 156/58 02/28/19 23:30 112 39 130/74 (92) 99 02/28/19 23:00 117/72 02/28/19 23:00 117/72 02/28/19 23:00 110 36 117/72 (87) 99 02/28/19 22:50 110 29 100 Mechanical Ventilator 40 02/28/19 22:40 112 41 99 Mechanical Ventilator 40 02/28/19 22:39 112 41 40 50 02/28/19 22:30 113 38 97/48 (64) 99 02/28/19 22:17 103/60 02/28/19 22:16 97/48 02/28/19 22:00 111 37 121/65 (83) 99 02/28/19 22:00 97/48 02/28/19 22:00 97/48 02/28/19 21:30 111 35 114/64 (81) 98 02/28/19 21:00 112 36 102/61 (75) 98 02/28/19 21:00 114/64 02/28/19 21:00 114/64 02/28/19 20:57 116 37 50 50 02/28/19 20:30 109 33 116/70 (85) 100 02/28/19 20:00 98.8 108 31 103/60 (74) 100 02/28/19 20:00 103/60 02/28/19 20:00 103/60 02/28/19 20:00 108 02/28/19 20:00 Endotracheal Tube 02/28/19 19:25 112 17 100 Mechanical Ventilator 50 02/28/19 19:12 117 33 96 Mechanical Ventilator 50 02/28/19 19:10 117 33 50 50 02/28/19 19:00 104/58 02/28/19 19:00 104/58 02/28/19 19:00 120 30 98/64 (75) 96 02/28/19 18:02 110/62 02/28/19 18:00 119 30 110/62 (78) 96 02/28/19 17:31 109 34 50 02/28/19 17:00 120 30 112/62 (79) 96 02/28/19 17:00 50 02/28/19 16:17 125 31 100 02/28/19 16:11 Mechanical Ventilator 100 02/28/19 16:11 Mechanical Ventilator 100 02/28/19 16:00 116 02/28/19 16:00 Mechanical Ventilator 15.0 02/28/19 16:00 100 02/28/19 16:00 98.6 116 30 118/63 (81) 95 02/28/19 15:00 106 30 110/80 (90) 96 02/28/19 14:00 99 30 115/60 (78) 96 02/28/19 13:00 98 30 118/64 (82) 95 02/28/19 12:00 Venturi Mask 10.0 02/28/19 12:00 99 02/28/19 12:00 115/60 02/28/19 12:00 98.9 101 30 121/60 (80) 95 02/28/19 11:10 110 22 95 Nasal Cannula 4.0 36 02/28/19 11:06 111 22 Nasal Cannula 4.0 36 02/28/19 11:05 111 22 95 Nasal Cannula 4.0 36 02/28/19 11:00 105 30 92/50 (64) 95 Height (Feet): 5 Height (Inches): 4.00 Weight (Pounds): 118 HEENT: other - intubated Respiratory/Chest: lungs clear Cardiovascular: normal rate, regular rhythm, no gallop/murmur Abdomen: soft, non tender, other - GT Extremities: no edema, other - left IJ catheter Microbiology Date/Time Source Procedure Growth Status 02/28/19 00:35 Blood Blood Culture - Preliminary NO GROWTH AFTER 24 HOURS Resulted 02/28/19 00:30 Blood Blood Culture - Preliminary NO GROWTH AFTER 24 HOURS Resulted 02/28/19 13:06 Sputum Gram Stain - Final Resulted 02/28/19 13:06 Sputum Sputum Culture Pending Resulted 02/28/19 00:35 Urine,Clean Catch Urine Culture - Preliminary Gram Negative Bacillus 1 Resulted 02/28/19 05:50 Rectum Received Laboratory Tests Test 02/28/19 14:00 02/28/19 16:45 02/28/19 19:00 02/28/19 19:37 Troponin I 1.426 ng/mL (0.000-0.056) Arterial Blood pH 7.342 (7.350-7.450) 7.469 (7.350-7.450) Arterial Blood Partial Pressure CO2 30.0 mmHg (35.0-45.0) L 23.1 mmHg (35.0-45.0) *L Arterial Blood Partial Pressure O2 139.6 mmHg (75.0-100.0) H 80.0 mmHg (75.0-100.0) Arterial Blood HCO3 15.9 mmol/L (22.0-26.0) *L 16.4 mmol/L (22.0-26.0) *L Arterial Blood Oxygen Saturation 98.3 % (95-100) 96.0 % (95-100) Arterial Blood Base Excess -8.7 (-2-2) L -5.8 (-2-2) L Rhett Test Positive Positive Lactic Acid Level 3.20 mmol/L (0.4-2.0) H Test 02/28/19 21:10 03/01/19 01:00 03/01/19 03:25 03/01/19 04:40 Lactic Acid Level 2.90 mmol/L (0.66-2.22) H 1.80 mmol/L (0.4-2.0) Urine Legionella Antigen Pending White Blood Count 36.1 K/UL (4.8-10.8) #*H Red Blood Count 3.82 M/UL (4.70-6.10) L Hemoglobin 9.3 G/DL (14.2-18.0) L Hematocrit 29.2 % (42.0-52.0) L Mean Corpuscular Volume 76 FL (80-99) L Mean Corpuscular Hemoglobin 24.4 PG (27.0-31.0) L Mean Corpuscular Hemoglobin Concent 31.9 G/DL (32.0-36.0) L Red Cell Distribution Width 15.1 % (11.6-14.8) H Platelet Count 223 K/UL (150-450) Mean Platelet Volume 6.8 FL (6.5-10.1) Neutrophils (%) (Auto) % (45.0-75.0) Lymphocytes (%) (Auto) % (20.0-45.0) Monocytes (%) (Auto) % (1.0-10.0) Eosinophils (%) (Auto) % (0.0-3.0) Basophils (%) (Auto) % (0.0-2.0) Differential Total Cells Counted 100 Neutrophils % (Manual) 94 % (45-75) H Lymphocytes % (Manual) 3 % (20-45) L Monocytes % (Manual) 1 % (1-10) Eosinophils % (Manual) 0 % (0-3) Basophils % (Manual) 0 % (0-2) Band Neutrophils 2 % (0-8) Platelet Estimate Adequate Platelet Morphology Normal Hypochromasia 2+ Anisocytosis 1+ Microcytosis 1+ Sodium Level 140 MMOL/L (136-145) Potassium Level 3.4 MMOL/L (3.5-5.1) L Chloride Level 108 MMOL/L (98-107) H Carbon Dioxide Level 19 MMOL/L (21-32) L Anion Gap 14 mmol/L (5-15) Blood Urea Nitrogen 72 mg/dL (7-18) H Creatinine 2.1 MG/DL (0.55-1.30) H Estimat Glomerular Filtration Rate mL/min (>60) Glucose Level 88 MG/DL (74-106) Calcium Level 7.0 MG/DL (8.5-10.1) L Phosphorus Level 3.4 MG/DL (2.5-4.9) Magnesium Level 1.7 MG/DL (1.8-2.4) L Test 03/01/19 06:50 03/01/19 08:54 Arterial Blood pH 7.460 (7.350-7.450) 7.490 (7.350-7.450) Arterial Blood Partial Pressure CO2 27.3 mmHg (35.0-45.0) L 26.3 mmHg (35.0-45.0) L Arterial Blood Partial Pressure O2 246.0 mmHg (75.0-100.0) H 122.3 mmHg (75.0-100.0) H Arterial Blood HCO3 19.4 mmol/L (22.0-26.0) L 20.0 mmol/L (22.0-26.0) L Arterial Blood Oxygen Saturation 99.1 % (95-100) 98.1 % (95-100) Arterial Blood Base Excess -3.3 (-2-2) L -2.3 (-2-2) L Rhett Test Positive Positive Current Medications Medications (Trade) Dose Ordered Sig/Mckenzie Route PRN Reason Start Time Stop Time Status Last Admin Dose Admin Albuterol/ Ipratropium (Albuterol/ Ipratropium) 3 ml Q4HRT HHN 02/28/19 11:00 03/05/19 10:59 03/01/19 10:37 Chlorhexidine Gluconate (Liz-Hex 2%) 1 applic DAILY@2000 TOPIC 03/01/19 20:00 03/31/19 19:59 Dopamine HCl/ Dextrose 250 ml @ 0 mls/hr Q24H IV 02/28/19 09:45 03/30/19 09:44 03/01/19 00:33 Heparin Sodium (Porcine) (Heparin 5000 units/ml) 5,000 units EVERY 12 HOURS SUBQ 02/28/19 21:00 03/30/19 20:59 03/01/19 09:12 Norepinephrine Bitartrate 4 mg/ Dextrose 250 ml @ 0 mls/hr Q24H IV 02/28/19 07:45 03/30/19 07:44 03/01/19 06:20 Pantoprazole (Protonix) 40 mg DAILY IVP 03/01/19 09:00 03/31/19 08:59 03/01/19 09:12 Piperacillin Sod/ Tazobactam Sod 3.375 gm/Sodium Chloride 110 ml @ 27.5 mls/hr Q12HR IVPB 02/28/19 10:00 03/07/19 09:59 03/01/19 09:12 Sodium Chloride 1,000 ml @ 150 mls/hr Q6H40M IV 03/01/19 07:45 03/31/19 07:44 03/01/19 09:12 Vancomycin HCl (Vanco rx to dose) 1 ea DAILY PRN MISC Per rx protocol 02/28/19 07:45 03/30/19 07:44 Manan Gomez MD Mar 01, 2019 10:44
--- NOTE | 2019-03-01 11:14 | NUR ---
RD ASSESSMENT & RECOMMENDATIONS SEE CARE ACTIVITY FOR COMPLETE ASSESSMENT DAILY ESTIMATED NEEDS: Needs based on advanced wounds, CRITICAL CARE / 53.1kg 25-30 kcals/kg 5614-3212 total kcals 1.5-2.0 g protein/kg 79-106 g total protein 25-30 mL/kg 3455-8558 total fluid mLs NUTRITION DIAGNOSIS: * Swallowing difficulty R/T dysphagia as evidenced by pt GT dep, now orally intubated, hypotensive on pressors, NPO. * Increased kcal/pro needs R/T wound healing as evidenced by pt admitted w/ multiple advanced wounds including necrotic left foot amd lt trochanter wounds, full thickness injury to Rt tibia, refer to wc eval. CURRENT TF:NPO ENTERAL NUTRITION RECOMMENDATIONS: Jevity 1.2 @ 55ml/hr x 24 hrs + Prosource 1pkt BID to provide 1320ml, 1584kcal, 73g + 22g prot, 1065ml free water WITH HEMODYNAMIC STABILITY, initiate TF * Initiate Jevity 1.2 @ 15ml/hr x 6 hrs, advance 10ml q 4-6 hrs as tolerated to goal rate. * Add Prosource 1pkt BID to meet protein needs * HOB over 30 degrees/ water flush per MD --- WITHOUT HEMODYNAMIC STABILITY * Rec trophic feeds of Jevity 1.2 @ 10-15ml/hr x 24 hrs ADDITIONAL RECOMMENDATIONS: * Calibrated bedscale wt for accurate CBW * WOUND HEALING: add Simon 1pkt BID, Vit C 500mg BID * Monitor lytes, replete as needed * Monitor HD stability and ability to feed . . .
--- NOTE | 2019-03-01 11:40 | Surgery Progress Note ---
Surgery Progress Note Subjective Procedure Performed endotracheal tube intubation Additional Comments intubated, on vent support. on pressors. ill appearing in ICU Objective Last 24 Hour Vital Signs Date Time Temp Pulse Resp B/P (MAP) Pulse Ox O2 Delivery O2 Flow Rate FiO2 03/01/19 11:00 90 18 118/64 (82) 100 03/01/19 10:44 96 23 100 Mechanical Ventilator 40 03/01/19 10:40 93 21 40 50 03/01/19 10:38 98 25 100 Mechanical Ventilator 40 03/01/19 10:30 88 18 115/64 (81) 100 03/01/19 10:00 90 18 117/66 (83) 100 03/01/19 09:30 91 18 111/64 (80) 100 03/01/19 09:00 97 18 112/66 (81) 100 03/01/19 08:35 97 31 40 50 03/01/19 08:30 88 14 105/60 (75) 100 03/01/19 08:00 94 03/01/19 08:00 Endotracheal Tube 03/01/19 08:00 98.8 90 15 110/64 (79) 100 03/01/19 07:30 95 13 110/65 (80) 100 03/01/19 07:03 96 20 100 Mechanical Ventilator 40 03/01/19 07:00 108/62 03/01/19 07:00 108/62 03/01/19 07:00 94 13 108/62 (77) 100 03/01/19 06:53 94 31 100 Mechanical Ventilator 40 03/01/19 06:52 94 31 40 50 03/01/19 06:30 99 24 100 03/01/19 06:30 99 24 133/69 (90) 100 03/01/19 06:20 123/66 03/01/19 06:00 126/80 03/01/19 06:00 126/80 03/01/19 06:00 98 24 123/66 (85) 100 03/01/19 05:30 98 25 117/64 (81) 100 03/01/19 05:11 97 25 40 50 03/01/19 05:00 99 23 114/57 (76) 100 03/01/19 05:00 139/65 03/01/19 05:00 139/65 03/01/19 04:30 97 22 139/65 (89) 100 03/01/19 04:00 98.1 104 23 120/67 (84) 100 03/01/19 04:00 Endotracheal Tube 03/01/19 04:00 96 03/01/19 04:00 120/67 03/01/19 04:00 120/67 03/01/19 03:30 99 27 91/55 (67) 100 03/01/19 03:21 99 25 100 Mechanical Ventilator 40 03/01/19 03:11 93 31 99 Mechanical Ventilator 40 03/01/19 03:10 93 31 40 50 03/01/19 03:00 94 26 121/63 (82) 100 03/01/19 03:00 121/63 03/01/19 03:00 121/63 03/01/19 02:30 99 30 116/58 (77) 100 03/01/19 02:00 116/58 03/01/19 02:00 116/58 03/01/19 02:00 102 31 103/54 (70) 99 03/01/19 01:30 118 35 102/55 (71) 98 03/01/19 01:29 112 34 40 50 03/01/19 01:20 Endotracheal Tube 03/01/19 01:05 131 41 159/84 (109) 92 03/01/19 01:00 159/84 03/01/19 01:00 159/84 03/01/19 01:00 107 37 174/127 (143) 99 03/01/19 00:40 106 36 124/58 (80) 99 03/01/19 00:33 139/60 03/01/19 00:30 111 43 156/58 (90) 99 03/01/19 00:00 112 03/01/19 00:00 99.4 112 39 139/60 (86) 99 03/01/19 00:00 Endotracheal Tube 03/01/19 00:00 156/58 03/01/19 00:00 156/58 02/28/19 23:30 112 39 130/74 (92) 99 02/28/19 23:00 117/72 02/28/19 23:00 117/72 02/28/19 23:00 110 36 117/72 (87) 99 02/28/19 22:50 110 29 100 Mechanical Ventilator 40 02/28/19 22:40 112 41 99 Mechanical Ventilator 40 02/28/19 22:39 112 41 40 50 02/28/19 22:30 113 38 97/48 (64) 99 02/28/19 22:17 103/60 02/28/19 22:16 97/48 02/28/19 22:00 111 37 121/65 (83) 99 02/28/19 22:00 97/48 02/28/19 22:00 97/48 02/28/19 21:30 111 35 114/64 (81) 98 02/28/19 21:00 112 36 102/61 (75) 98 02/28/19 21:00 114/64 02/28/19 21:00 114/64 02/28/19 20:57 116 37 50 50 02/28/19 20:30 109 33 116/70 (85) 100 02/28/19 20:00 98.8 108 31 103/60 (74) 100 02/28/19 20:00 103/60 02/28/19 20:00 103/60 02/28/19 20:00 108 02/28/19 20:00 Endotracheal Tube 02/28/19 19:25 112 17 100 Mechanical Ventilator 50 02/28/19 19:12 117 33 96 Mechanical Ventilator 50 02/28/19 19:10 117 33 50 50 02/28/19 19:00 104/58 02/28/19 19:00 104/58 02/28/19 19:00 120 30 98/64 (75) 96 02/28/19 18:02 110/62 02/28/19 18:00 119 30 110/62 (78) 96 02/28/19 17:31 109 34 50 02/28/19 17:00 120 30 112/62 (79) 96 02/28/19 17:00 50 02/28/19 16:17 125 31 100 02/28/19 16:11 Mechanical Ventilator 100 02/28/19 16:11 Mechanical Ventilator 100 02/28/19 16:00 116 02/28/19 16:00 Mechanical Ventilator 15.0 02/28/19 16:00 100 02/28/19 16:00 98.6 116 30 118/63 (81) 95 02/28/19 15:00 106 30 110/80 (90) 96 02/28/19 14:00 99 30 115/60 (78) 96 02/28/19 13:00 98 30 118/64 (82) 95 02/28/19 12:00 Venturi Mask 10.0 02/28/19 12:00 99 02/28/19 12:00 115/60 02/28/19 12:00 98.9 101 30 121/60 (80) 95 I&O Intake and Output 02/28/19 03/01/19 18:59 06:59 Intake Total 504.052 ml 2602.497 ml Output Total 0 ml 2300 ml Balance 504.052 ml 302.497 ml Intake IV Total 504.052 ml 2602.497 ml Output Urine Total 0 ml 2300 ml # Bowel Movements 4 Dressing: saturated Wound: other Drains: other Cardiovascular: RSR Respiratory: decreased breath sounds Abdomen: soft, present bowel sounds, non-distended Extremities: edema, cyanosis, other Laboratory Tests Test 02/28/19 14:00 02/28/19 16:45 02/28/19 19:00 02/28/19 19:37 Troponin I 1.426 ng/mL (0.000-0.056) Arterial Blood pH 7.342 (7.350-7.450) 7.469 (7.350-7.450) Arterial Blood Partial Pressure CO2 30.0 mmHg (35.0-45.0) L 23.1 mmHg (35.0-45.0) *L Arterial Blood Partial Pressure O2 139.6 mmHg (75.0-100.0) H 80.0 mmHg (75.0-100.0) Arterial Blood HCO3 15.9 mmol/L (22.0-26.0) *L 16.4 mmol/L (22.0-26.0) *L Arterial Blood Oxygen Saturation 98.3 % (95-100) 96.0 % (95-100) Arterial Blood Base Excess -8.7 (-2-2) L -5.8 (-2-2) L Rhett Test Positive Positive Lactic Acid Level 3.20 mmol/L (0.4-2.0) H Test 02/28/19 21:10 03/01/19 01:00 03/01/19 03:25 03/01/19 04:40 Lactic Acid Level 2.90 mmol/L (0.66-2.22) H 1.80 mmol/L (0.4-2.0) Urine Legionella Antigen Pending White Blood Count 36.1 K/UL (4.8-10.8) #*H Red Blood Count 3.82 M/UL (4.70-6.10) L Hemoglobin 9.3 G/DL (14.2-18.0) L Hematocrit 29.2 % (42.0-52.0) L Mean Corpuscular Volume 76 FL (80-99) L Mean Corpuscular Hemoglobin 24.4 PG (27.0-31.0) L Mean Corpuscular Hemoglobin Concent 31.9 G/DL (32.0-36.0) L Red Cell Distribution Width 15.1 % (11.6-14.8) H Platelet Count 223 K/UL (150-450) Mean Platelet Volume 6.8 FL (6.5-10.1) Neutrophils (%) (Auto) % (45.0-75.0) Lymphocytes (%) (Auto) % (20.0-45.0) Monocytes (%) (Auto) % (1.0-10.0) Eosinophils (%) (Auto) % (0.0-3.0) Basophils (%) (Auto) % (0.0-2.0) Differential Total Cells Counted 100 Neutrophils % (Manual) 94 % (45-75) H Lymphocytes % (Manual) 3 % (20-45) L Monocytes % (Manual) 1 % (1-10) Eosinophils % (Manual) 0 % (0-3) Basophils % (Manual) 0 % (0-2) Band Neutrophils 2 % (0-8) Platelet Estimate Adequate Platelet Morphology Normal Hypochromasia 2+ Anisocytosis 1+ Microcytosis 1+ Sodium Level 140 MMOL/L (136-145) Potassium Level 3.4 MMOL/L (3.5-5.1) L Chloride Level 108 MMOL/L (98-107) H Carbon Dioxide Level 19 MMOL/L (21-32) L Anion Gap 14 mmol/L (5-15) Blood Urea Nitrogen 72 mg/dL (7-18) H Creatinine 2.1 MG/DL (0.55-1.30) H Estimat Glomerular Filtration Rate mL/min (>60) Glucose Level 88 MG/DL (74-106) Calcium Level 7.0 MG/DL (8.5-10.1) L Phosphorus Level 3.4 MG/DL (2.5-4.9) Magnesium Level 1.7 MG/DL (1.8-2.4) L Test 03/01/19 06:50 03/01/19 08:54 Arterial Blood pH 7.460 (7.350-7.450) 7.490 (7.350-7.450) Arterial Blood Partial Pressure CO2 27.3 mmHg (35.0-45.0) L 26.3 mmHg (35.0-45.0) L Arterial Blood Partial Pressure O2 246.0 mmHg (75.0-100.0) H 122.3 mmHg (75.0-100.0) H Arterial Blood HCO3 19.4 mmol/L (22.0-26.0) L 20.0 mmol/L (22.0-26.0) L Arterial Blood Oxygen Saturation 99.1 % (95-100) 98.1 % (95-100) Arterial Blood Base Excess -3.3 (-2-2) L -2.3 (-2-2) L Rhett Test Positive Positive Plan Problems: (1) Ulcer of lower extremity excluding decubitus ulcer Assessment & Plan: Pt presented on admission with contractures both lower ext with multiple necrotic wounds L trochanter,R tibia, and L foot. Lateral L foot (L)3.5cm x (W)11cm.90%Soft necrosis with surrounding slough along borders.Wound is malodorous. Small amt brown exudate noted.Greyish colour periwound. L Lateral metatarsal to L hallux (L)4.3cm x (W)6.9cm . Base of wound necrotic with area of fluctuance at lateral aspect L1st metatarsal.Wound is malodorous with small amt brownish exudate Greyish colour periwound. Lateral L heel (L)3cm x (W)6.6cm.100%Unstable necrosis base of wound with surrounding mixed soft slough with erythema.Wound is malodorous. Wound is malodorous with small amt brownish exudate. Plantar L foot (L)2.5cm x (W)1.5cm Unstable necrosis with indurated borders. No exudate noted. All 5 metatarsals are burgess in color. Full thickness pressure injury R tibia(L)6.5cm x (W)1cm. elongated wound with indurated red borders,10% necrosis at proximal end with #2 areas of slough- approx 10% with erythema that is dry remaining base of wound .No odor noted. Non-blanchable erythema with scattered purple areas medial L tibia(L)5.7cm x (W) 4.5cm.Site without fluctuance or induration .No elevation in skin temp. Dorsal R 2nd metatarsal head maroon with fluctuance.(L)0.8cm x (W)1.3cm. R heel boggy with non-blanchable erythema. Pressure injury to L trochanter 90% necrotic,dry with pink epithelialized borders. Dark skin tone without erythema or induration periwound .In close proximity is an area with pink epithelial tissue with a linear area in center that is brown but dry and adherent to base. Resolving pressure injury to sacrum.95% epithelial at base of wound .Small area at coccyx measuring(L)0.4cm x (W)0.3cm with yellow slough.No exudate noted. Areas of hyperpigmentation scarring noted to R and L ischial areas. Tx.Plan: Cleanse L trochanter with Saline. Apply Dakins 1/4% soaked gauze to L trochanter.Apply Cavilon Skin Barrier periwound. Cover with Optifoam drsg. Change daily and PRN. Cleanse R tibia with Saline.Apply Dakins 1/4% soaked gauze. Cavilon Skin Barrier periwound.Cover with Optifoam drsg. Change Daily and prn. Apply Cavilon Skin Barrier to L medial /idalia L tibia .Cover with Optifoam drsg. Change every 7 days and prn. Apply Cavilon Skin Barrier to R heel. Cover with Optifoam drsg.Change every 7 days and PRN. Cleanse coccygeal wound with saline. Apply Therahoney.Apply Triad Paste periwound to sacrum. Cover with Optifoam drsg. Change Daily and prn. APM/KAVON Mattress overlay. Reposition at least every 2hours or as tolerated. Place Pillow between knees . Off-load heels with pillow. (2) Septic shock Assessment & Plan: Intubated for airway protection in ICU see note for details cont with vent CXR ABG with trend and wean vent settings trend labs wean pressors fluids aguilera will monitor prognosis guarded (3) Asymptomatic bacteriuria (4) ARF (acute renal failure) (5) Healthcare-associated pneumonia (6) Acute and chronic respiratory failure with hypoxia (7) Anemia (8) Alzheimer disease (9) Dysphagia (10) Sepsis (11) Pneumonia (12) Gastroparesis (13) Severe sepsis (14) Encounter for PEG (percutaneous endoscopic gastrostomy) (15) Decubitus ulcer of trochanteric region of left hip Rios Quiñones Mar 01, 2019 11:40
--- NOTE | 2019-03-01 12:00 | NUR ---
NURSE NOTES: VSS. No distress noted. Turned and repositioned. Will continue plan of care.
[2019-03-01] MEDS: Meropenem 500 MG in NS 55 ML IV SCH ×2 (12:36→20:52)
[2019-03-01] MEDS: Dakin's 0.125% Soln (Quarter Strength) 16oz TOPIC SCH (13:00)
--- NOTE | 2019-03-01 14:00 | NUR ---
NURSE NOTES: Patient turned and repositioned. No new orders at this time. P200 mattress delivered and placed under patient. Will continue to monitor patient.
--- NOTE | 2019-03-01 14:33 | Diagnostic Imaging Report ---
Indication: Post intubation Technique: One view of the chest Comparison: 12 hours earlier Findings: Interim endotracheal intubation, endotracheal tube tip projecting approximately 4 cm above the mary. There is a left jugular central venous catheter, tip projected at the level of the mid superior vena cava. There is again demonstrated bilateral interstitial edema, stable or slightly improved. There is suggestion of a small right-sided pleural effusion Impression: Satisfactory endotracheal intubation Stable or slightly improved bilateral interstitial edema This agrees with the preliminary interpretation provided overnight by [facility] teleradiology service.
--- NOTE | 2019-03-01 15:03 | NUR ---
Social Service Note SW confirmed with Public Guardian Tanesha Lim [phone] patient is conserved under Probate Conservatorship. She will or the Office of the Public Guardian will give all consents for patient. If patient's son calls Norberto Smith he can receives updates but cannot provide consent. Patient is full code. Patient is a resident of [facility] 04/[facility]. Patient will continue to require terminal press operator placement upon discharge. Will monitor.
--- NOTE | 2019-03-01 15:40 | General Progress Note ---
Assessment/Plan Assessment/Plan MOF, septic shock - IVF, IV Abx Urosepsis - IV Abx VDRF - vent. Infected decubs - GS following Subjective Allergies: Coded Allergies: No Known Allergies (Unverified , 02/25/19) Subjective Obtunded, Nonverbal. Objective Last 24 Hour Vital Signs Date Time Temp Pulse Resp B/P (MAP) Pulse Ox O2 Delivery O2 Flow Rate FiO2 03/01/19 15:00 99 18 117/66 (83) 100 03/01/19 14:53 104 26 100 Mechanical Ventilator 40 03/01/19 14:43 101 26 100 Mechanical Ventilator 40 03/01/19 14:42 102 24 40 50 03/01/19 14:30 102 18 118/65 (82) 100 03/01/19 14:00 104 18 115/62 (79) 100 03/01/19 13:30 90 18 118/64 (82) 100 03/01/19 13:04 107 26 40 50 03/01/19 13:00 87 18 114/66 (82) 100 03/01/19 12:30 88 18 116/65 (82) 100 03/01/19 12:00 Endotracheal Tube 03/01/19 12:00 98.7 80 18 110/64 (79) 100 03/01/19 12:00 90 03/01/19 11:30 84 18 113/60 (77) 100 03/01/19 11:00 90 18 118/64 (82) 100 03/01/19 10:44 96 23 100 Mechanical Ventilator 40 03/01/19 10:40 93 21 40 50 03/01/19 10:38 98 25 100 Mechanical Ventilator 40 03/01/19 10:30 88 18 115/64 (81) 100 03/01/19 10:00 90 18 117/66 (83) 100 03/01/19 09:30 91 18 111/64 (80) 100 03/01/19 09:00 97 18 112/66 (81) 100 03/01/19 08:35 97 31 40 50 03/01/19 08:30 88 14 105/60 (75) 100 03/01/19 08:00 94 03/01/19 08:00 Endotracheal Tube 03/01/19 08:00 98.8 90 15 110/64 (79) 100 03/01/19 07:30 95 13 110/65 (80) 100 03/01/19 07:03 96 20 100 Mechanical Ventilator 40 03/01/19 07:00 108/62 03/01/19 07:00 108/62 03/01/19 07:00 94 13 108/62 (77) 100 03/01/19 06:53 94 31 100 Mechanical Ventilator 40 03/01/19 06:52 94 31 40 50 03/01/19 06:30 99 24 100 03/01/19 06:30 99 24 133/69 (90) 100 03/01/19 06:20 123/66 03/01/19 06:00 126/80 03/01/19 06:00 126/80 03/01/19 06:00 98 24 123/66 (85) 100 03/01/19 05:30 98 25 117/64 (81) 100 03/01/19 05:11 97 25 40 50 03/01/19 05:00 99 23 114/57 (76) 100 03/01/19 05:00 139/65 03/01/19 05:00 139/65 03/01/19 04:30 97 22 139/65 (89) 100 03/01/19 04:00 98.1 104 23 120/67 (84) 100 03/01/19 04:00 Endotracheal Tube 03/01/19 04:00 96 03/01/19 04:00 120/67 03/01/19 04:00 120/67 03/01/19 03:30 99 27 91/55 (67) 100 03/01/19 03:21 99 25 100 Mechanical Ventilator 40 03/01/19 03:11 93 31 99 Mechanical Ventilator 40 03/01/19 03:10 93 31 40 50 03/01/19 03:00 94 26 121/63 (82) 100 03/01/19 03:00 121/63 03/01/19 03:00 121/63 03/01/19 02:30 99 30 116/58 (77) 100 03/01/19 02:00 116/58 03/01/19 02:00 116/58 03/01/19 02:00 102 31 103/54 (70) 99 03/01/19 01:30 118 35 102/55 (71) 98 03/01/19 01:29 112 34 40 50 03/01/19 01:20 Endotracheal Tube 03/01/19 01:05 131 41 159/84 (109) 92 03/01/19 01:00 159/84 03/01/19 01:00 159/84 03/01/19 01:00 107 37 174/127 (143) 99 03/01/19 00:40 106 36 124/58 (80) 99 03/01/19 00:33 139/60 03/01/19 00:30 111 43 156/58 (90) 99 03/01/19 00:00 112 03/01/19 00:00 99.4 112 39 139/60 (86) 99 03/01/19 00:00 Endotracheal Tube 03/01/19 00:00 156/58 03/01/19 00:00 156/58 02/28/19 23:30 112 39 130/74 (92) 99 02/28/19 23:00 117/72 02/28/19 23:00 117/72 02/28/19 23:00 110 36 117/72 (87) 99 02/28/19 22:50 110 29 100 Mechanical Ventilator 40 02/28/19 22:40 112 41 99 Mechanical Ventilator 40 02/28/19 22:39 112 41 40 50 02/28/19 22:30 113 38 97/48 (64) 99 02/28/19 22:17 103/60 02/28/19 22:16 97/48 02/28/19 22:00 111 37 121/65 (83) 99 02/28/19 22:00 97/48 02/28/19 22:00 97/48 02/28/19 21:30 111 35 114/64 (81) 98 02/28/19 21:00 112 36 102/61 (75) 98 02/28/19 21:00 114/64 02/28/19 21:00 114/64 02/28/19 20:57 116 37 50 50 02/28/19 20:30 109 33 116/70 (85) 100 02/28/19 20:00 98.8 108 31 103/60 (74) 100 02/28/19 20:00 103/60 02/28/19 20:00 103/60 02/28/19 20:00 108 02/28/19 20:00 Endotracheal Tube 02/28/19 19:25 112 17 100 Mechanical Ventilator 50 02/28/19 19:12 117 33 96 Mechanical Ventilator 50 02/28/19 19:10 117 33 50 50 02/28/19 19:00 104/58 02/28/19 19:00 104/58 02/28/19 19:00 120 30 98/64 (75) 96 02/28/19 18:02 110/62 02/28/19 18:00 119 30 110/62 (78) 96 02/28/19 17:31 109 34 50 02/28/19 17:00 120 30 112/62 (79) 96 02/28/19 17:00 50 02/28/19 16:17 125 31 100 02/28/19 16:11 Mechanical Ventilator 100 02/28/19 16:11 Mechanical Ventilator 100 02/28/19 16:00 116 02/28/19 16:00 Mechanical Ventilator 15.0 02/28/19 16:00 100 02/28/19 16:00 98.6 116 30 118/63 (81) 95 Intake and Output 02/28/19 03/01/19 19:00 07:00 Intake Total 606.793 ml 2721.901 ml Output Total 0 ml 2700 ml Balance 606.793 ml 21.901 ml Intake IV Total 606.793 ml 2721.901 ml Output Urine Total 0 ml 2700 ml # Bowel Movements 4 Laboratory Tests 02/28/19 16:45: Arterial Blood pH 7.342L, Arterial Blood Partial Pressure CO2 30.0L, Arterial Blood Partial Pressure O2 139.6H, Arterial Blood HCO3 15.9*L, Arterial Blood Oxygen Saturation 98.3, Arterial Blood Base Excess -8.7L, Rhett Test Positive 02/28/19 19:00: Arterial Blood pH 7.469H, Arterial Blood Partial Pressure CO2 23.1*L, Arterial Blood Partial Pressure O2 80.0, Arterial Blood HCO3 16.4*L, Arterial Blood Oxygen Saturation 96.0, Arterial Blood Base Excess -5.8L, Rhett Test Positive 02/28/19 19:37: Lactic Acid Level 3.20H 02/28/19 21:10: Lactic Acid Level 2.90H 03/01/19 01:00: Urine Legionella Antigen [Pending] 03/01/19 03:25: White Blood Count 36.1#*H, Red Blood Count 3.82L, Hemoglobin 9.3L, Hematocrit 29.2L, Mean Corpuscular Volume 76L, Mean Corpuscular Hemoglobin 24.4L, Mean Corpuscular Hemoglobin Concent 31.9L, Red Cell Distribution Width 15.1H, Platelet Count 223, Mean Platelet Volume 6.8, Neutrophils (%) (Auto) , Lymphocytes (%) (Auto) , Monocytes (%) (Auto) , Eosinophils (%) (Auto) , Basophils (%) (Auto) , Differential Total Cells Counted 100, Neutrophils % ( Manual) 94H, Lymphocytes % (Manual) 3L, Monocytes % (Manual) 1, Eosinophils % ( Manual) 0, Basophils % (Manual) 0, Band Neutrophils 2, Platelet Estimate Adequate, Platelet Morphology Normal, Hypochromasia 2+, Anisocytosis 1+, Microcytosis 1+, Sodium Level 140, Potassium Level 3.4L, Chloride Level 108H, Carbon Dioxide Level 19L, Anion Gap 14, Blood Urea Nitrogen 72H, Creatinine 2.1H , Estimat Glomerular Filtration Rate , Glucose Level 88, Calcium Level 7.0L, Phosphorus Level 3.4, Magnesium Level 1.7L 03/01/19 04:40: Lactic Acid Level 1.80 03/01/19 06:50: Arterial Blood pH 7.460H, Arterial Blood Partial Pressure CO2 27.3L, Arterial Blood Partial Pressure O2 246.0H, Arterial Blood HCO3 19.4L, Arterial Blood Oxygen Saturation 99.1, Arterial Blood Base Excess -3.3L, Rhett Test Positive 03/01/19 08:54: Arterial Blood pH 7.490H, Arterial Blood Partial Pressure CO2 26.3L, Arterial Blood Partial Pressure O2 122.3H, Arterial Blood HCO3 20.0L, Arterial Blood Oxygen Saturation 98.1, Arterial Blood Base Excess -2.3L, Rhett Test Positive Height (Feet): 5 Height (Inches): 4.00 Weight (Pounds): 118 Objective Intubated, On Vent. CV RR Lungs B Ronchi. Abd SNT. BS + E Contractures. No CCE. Sacral decub. Neuro - obtunded - non focal. FC cloudy, concentrated urine. Ervin Mario MD Mar 01, 2019 15:39
[2019-03-01] MEDS ORDERED: NS 275ml ONE (15:48)
--- NOTE | 2019-03-01 16:00 | NUR ---
NURSE NOTES: VSS. No new orders. Will continue plan of care.
[2019-03-01] MEDS ORDERED: 1/2 NS 1000ml IV ONE (16:22)
[2019-03-01] MEDS ORDERED: Tubing IV Secondary IV ONE (16:22)
--- NOTE | 2019-03-01 18:00 | NUR ---
NURSE NOTES: Coverage received for potassium and magnesium from Dr. Gamboa. WIll continue plan of care.
--- NOTE | 2019-03-01 19:23 | NUR ---
RESPIRATORY NOTE: Received pt. on 840 vent. Vent settings are:A/C rate of 16, Vt 450, FI02 40%, PEEP +5. No respiratory distress noted, pt. Sp02 @ 100%. Ambu bag @ BS. Vent plugged on red outlet. Will continue to monitor pt.
--- NOTE | 2019-03-01 19:23 | NUR ---
HAND-OFF: Report given to Alicia GARCIA VSS No distresss noted.
--- NOTE | 2019-03-01 19:35 | NUR ---
NURSE NOTES: Received patient from JOSE Rowell. Pt is obtunded, non verbal. ETT 7.5/26cm lip line, AC 16, TV 450 Fi02 40% Peep of 5. Pt has g-tube, clamped and NPO. Anderson draining with yellow urine. Pt is contracted with multiple wounds, on P200 mattress for wound management. left EJ TLC and Right EJ intact running. On Levo running at 10 mcg/min, Dopamine 6mcg/kg/min, 1/2 NS at 100cc/hr. Will replace magnesium per MD. Safety measures in place. Bed in low position bed alarm on and in low position. Contact isolation maintained and observed. will continue to monitor.
[2019-03-01] MEDS: Dyna-Hex 2% Top Sol 2oz TOPIC SCH (19:48)
--- NOTE | 2019-03-01 21:35 | NUR ---
NURSE NOTES: Repositioned. CHG bath given. Levophed titrate to 8mcg/min, dopamine titrate to 4mcg/min. BP 114/64 HR 94. Patient in bed no s/s of acute distress noted. Will continue plan of care.
--- NOTE | 2019-03-01 21:47 | Cardiology Progress Note ---
Assessment/Plan Assessment/Plan septic shock, respiratory failure, severe chronic disease, his tachycarda is secondary to sepsis, the patient is on pressores Subjective Subjective the patient was seen in t he morning, he is unresponsive and not communicating Objective Last 24 Hour Vital Signs Date Time Temp Pulse Resp B/P (MAP) Pulse Ox O2 Delivery O2 Flow Rate FiO2 03/01/19 21:24 94 23 40 50 03/01/19 21:00 101/56 03/01/19 21:00 101/56 03/01/19 21:00 98 24 101/56 (71) 100 03/01/19 20:30 101 23 96/56 (69) 99 03/01/19 20:00 98.8 106 27 109/64 (79) 100 03/01/19 20:00 95/56 03/01/19 20:00 95/56 03/01/19 20:00 Endotracheal Tube 03/01/19 19:49 140/106 03/01/19 19:35 101 22 100 Mechanical Ventilator 40 03/01/19 19:25 95 17 40 50 03/01/19 19:21 95 23 100 Mechanical Ventilator 40 03/01/19 19:00 100 18 112/65 (81) 100 03/01/19 19:00 140/106 03/01/19 18:30 101 18 110/60 (77) 100 03/01/19 18:00 106 18 115/64 (81) 100 03/01/19 17:30 102 18 111/65 (80) 100 03/01/19 17:00 105 18 122/66 (84) 100 03/01/19 16:46 106 23 40 50 03/01/19 16:30 107 18 120/64 (82) 100 03/01/19 16:00 88 03/01/19 16:00 Endotracheal Tube 03/01/19 16:00 98.9 91 18 110/60 (77) 100 03/01/19 15:59 40 03/01/19 15:55 110/50 03/01/19 15:30 95 18 115/65 (82) 100 03/01/19 15:00 99 18 117/66 (83) 100 03/01/19 14:53 104 26 100 Mechanical Ventilator 40 03/01/19 14:43 101 26 100 Mechanical Ventilator 40 03/01/19 14:42 102 24 40 50 03/01/19 14:30 102 18 118/65 (82) 100 03/01/19 14:00 104 18 115/62 (79) 100 03/01/19 13:30 90 18 118/64 (82) 100 03/01/19 13:04 107 26 40 50 03/01/19 13:00 87 18 114/66 (82) 100 03/01/19 12:30 88 18 116/65 (82) 100 03/01/19 12:00 Endotracheal Tube 03/01/19 12:00 98.7 80 18 110/64 (79) 100 03/01/19 12:00 90 03/01/19 11:30 84 18 113/60 (77) 100 03/01/19 11:00 90 18 118/64 (82) 100 03/01/19 10:44 96 23 100 Mechanical Ventilator 40 03/01/19 10:40 93 21 40 50 03/01/19 10:38 98 25 100 Mechanical Ventilator 40 03/01/19 10:30 88 18 115/64 (81) 100 03/01/19 10:00 90 18 117/66 (83) 100 03/01/19 09:30 91 18 111/64 (80) 100 03/01/19 09:00 97 18 112/66 (81) 100 03/01/19 08:35 97 31 40 50 03/01/19 08:30 88 14 105/60 (75) 100 03/01/19 08:00 94 03/01/19 08:00 Endotracheal Tube 03/01/19 08:00 98.8 90 15 110/64 (79) 100 03/01/19 07:30 95 13 110/65 (80) 100 03/01/19 07:03 96 20 100 Mechanical Ventilator 40 03/01/19 07:00 108/62 03/01/19 07:00 108/62 03/01/19 07:00 94 13 108/62 (77) 100 03/01/19 06:53 94 31 100 Mechanical Ventilator 40 03/01/19 06:52 94 31 40 50 03/01/19 06:30 99 24 100 03/01/19 06:30 99 24 133/69 (90) 100 03/01/19 06:20 123/66 03/01/19 06:00 126/80 4/5/19 06:00 126/80 03/01/19 06:00 98 24 123/66 (85) 100 03/01/19 05:30 98 25 117/64 (81) 100 03/01/19 05:11 97 25 40 50 03/01/19 05:00 99 23 114/57 (76) 100 03/01/19 05:00 139/65 03/01/19 05:00 139/65 03/01/19 04:30 97 22 139/65 (89) 100 03/01/19 04:00 98.1 104 23 120/67 (84) 100 03/01/19 04:00 Endotracheal Tube 03/01/19 04:00 96 03/01/19 04:00 120/67 03/01/19 04:00 120/67 03/01/19 03:30 99 27 91/55 (67) 100 03/01/19 03:21 99 25 100 Mechanical Ventilator 40 03/01/19 03:11 93 31 99 Mechanical Ventilator 40 03/01/19 03:10 93 31 40 50 03/01/19 03:00 94 26 121/63 (82) 100 03/01/19 03:00 121/63 03/01/19 03:00 121/63 03/01/19 02:30 99 30 116/58 (77) 100 03/01/19 02:00 116/58 03/01/19 02:00 116/58 03/01/19 02:00 102 31 103/54 (70) 99 03/01/19 01:30 118 35 102/55 (71) 98 03/01/19 01:29 112 34 40 50 03/01/19 01:20 Endotracheal Tube 03/01/19 01:05 131 41 159/84 (109) 92 03/01/19 01:00 159/84 03/01/19 01:00 159/84 03/01/19 01:00 107 37 174/127 (143) 99 03/01/19 00:40 106 36 124/58 (80) 99 03/01/19 00:33 139/60 03/01/19 00:30 111 43 156/58 (90) 99 03/01/19 00:00 112 03/01/19 00:00 99.4 112 39 139/60 (86) 99 03/01/19 00:00 Endotracheal Tube 03/01/19 00:00 156/58 03/01/19 00:00 156/58 02/28/19 23:30 112 39 130/74 (92) 99 02/28/19 23:00 117/72 02/28/19 23:00 117/72 02/28/19 23:00 110 36 117/72 (87) 99 02/28/19 22:50 110 29 100 Mechanical Ventilator 40 02/28/19 22:40 112 41 99 Mechanical Ventilator 40 02/28/19 22:39 112 41 40 50 02/28/19 22:30 113 38 97/48 (64) 99 02/28/19 22:17 103/60 02/28/19 22:16 97/48 02/28/19 22:00 111 37 121/65 (83) 99 02/28/19 22:00 97/48 02/28/19 22:00 97/48 General Appearance: on vent, other - cachectic EENT: other Neck: no JVD Rhythm: ST Cardiovascular: tachycardia, systolic murmur Respiratory/Chest: crackles/rales Abdomen: decreased bowel sounds Extremities: other - contractures Intake and Output 02/28/19 03/01/19 19:00 07:00 Intake Total 606.793 ml 2721.901 ml Output Total 0 ml 2700 ml Balance 606.793 ml 21.901 ml Intake IV Total 606.793 ml 2721.901 ml Output Urine Total 0 ml 2700 ml # Bowel Movements 4 Laboratory Tests Test 03/01/19 01:00 03/01/19 03:25 03/01/19 04:40 03/01/19 06:50 Urine Legionella Antigen Pending White Blood Count 36.1 K/UL (4.8-10.8) #*H Red Blood Count 3.82 M/UL (4.70-6.10) L Hemoglobin 9.3 G/DL (14.2-18.0) L Hematocrit 29.2 % (42.0-52.0) L Mean Corpuscular Volume 76 FL (80-99) L Mean Corpuscular Hemoglobin 24.4 PG (27.0-31.0) L Mean Corpuscular Hemoglobin Concent 31.9 G/DL (32.0-36.0) L Red Cell Distribution Width 15.1 % (11.6-14.8) H Platelet Count 223 K/UL (150-450) Mean Platelet Volume 6.8 FL (6.5-10.1) Neutrophils (%) (Auto) % (45.0-75.0) Lymphocytes (%) (Auto) % (20.0-45.0) Monocytes (%) (Auto) % (1.0-10.0) Eosinophils (%) (Auto) % (0.0-3.0) Basophils (%) (Auto) % (0.0-2.0) Differential Total Cells Counted 100 Neutrophils % (Manual) 94 % (45-75) H Lymphocytes % (Manual) 3 % (20-45) L Monocytes % (Manual) 1 % (1-10) Eosinophils % (Manual) 0 % (0-3) Basophils % (Manual) 0 % (0-2) Band Neutrophils 2 % (0-8) Platelet Estimate Adequate Platelet Morphology Normal Hypochromasia 2+ Anisocytosis 1+ Microcytosis 1+ Sodium Level 140 MMOL/L (136-145) Potassium Level 3.4 MMOL/L (3.5-5.1) L Chloride Level 108 MMOL/L (98-107) H Carbon Dioxide Level 19 MMOL/L (21-32) L Anion Gap 14 mmol/L (5-15) Blood Urea Nitrogen 72 mg/dL (7-18) H Creatinine 2.1 MG/DL (0.55-1.30) H Estimat Glomerular Filtration Rate mL/min (>60) Glucose Level 88 MG/DL (74-106) Calcium Level 7.0 MG/DL (8.5-10.1) L Phosphorus Level 3.4 MG/DL (2.5-4.9) Magnesium Level 1.7 MG/DL (1.8-2.4) L Lactic Acid Level 1.80 mmol/L (0.4-2.0) Arterial Blood pH 7.460 (7.350-7.450) Arterial Blood Partial Pressure CO2 27.3 mmHg (35.0-45.0) L Arterial Blood Partial Pressure O2 246.0 mmHg (75.0-100.0) H Arterial Blood HCO3 19.4 mmol/L (22.0-26.0) L Arterial Blood Oxygen Saturation 99.1 % (95-100) Arterial Blood Base Excess -3.3 (-2-2) L Rhett Test Positive Test 03/01/19 08:54 Arterial Blood pH 7.490 (7.350-7.450) Arterial Blood Partial Pressure CO2 26.3 mmHg (35.0-45.0) L Arterial Blood Partial Pressure O2 122.3 mmHg (75.0-100.0) H Arterial Blood HCO3 20.0 mmol/L (22.0-26.0) L Arterial Blood Oxygen Saturation 98.1 % (95-100) Arterial Blood Base Excess -2.3 (-2-2) L Rhett Test Positive Microbiology Date/Time Source Procedure Growth Status 02/28/19 00:35 Blood Blood Culture - Preliminary Resulted 02/28/19 00:30 Blood Blood Culture - Preliminary Resulted 02/28/19 00:00 Wound Gram Stain - Final Resulted 02/28/19 00:00 Wound Culture - Preliminary Gram Negative Bacillus 1 Resulted 02/28/19 13:06 Sputum Gram Stain - Final Resulted 02/28/19 13:06 Sputum Sputum Culture Pending Resulted 02/28/19 00:35 Urine,Clean Catch Urine Culture - Preliminary Gram Negative Bacillus 1 Resulted 02/28/19 05:50 Rectum Received Sally Doty MD Mar 01, 2019 21:47
--- NOTE | 2019-03-01 23:40 | NUR ---
NURSE NOTES: Repositioned. no s/s of acute distress noted. Anderson draining. will continue plan of care.
[2019-03-02] VITALS (45 sets, daily range): BP systolic 92–134; BP diastolic 51–111
--- NOTE | 2019-03-02 | NUR ---
NURSE NOTES: Titrate Dopamine drip to 2mcg/kg/min, Levophed 6mcg/min BP 11/65 HR 110, no s/s of acute distress. HOB elevated. Will continue plan of care. Addendum: 03/02/19 at 0554 by IGGY RICHARDSON RN RN [id number]/65
--- NOTE | 2019-03-02 02:00 | NUR ---
NURSE NOTES: Continue patient on Dopamine drip 2mcg/kg/min, Levophed 6mcg/min BP 109/57 HR 104, no s/s of acute distress. HOB elevated.No moaning no facial grimaces. Will continue plan of care.
[2019-03-02] MEDS: Albuterol/Ipratropium 3ml neb HHN SCH ×5 (03:25→19:03)
--- NOTE | 2019-03-02 04:00 | NUR ---
NURSE NOTES: Held Dopamine drip Titrate Levophed 4 mcg/min BP 118/78 HR 103, no s/s of acute distress. HOB elevated.No moaning no facial grimaces. Bed bath given, wound care done. Will continue plan of care.
--- NOTE | 2019-03-02 06:00 | NUR ---
NURSE NOTES: Held Levophed BP 112/55 HR 108, will continue to monitor patient.
[2019-03-02 06:03] LABS: HEMATOCRIT 28.2 % (42.0-52.0); MEAN CORPUSCULAR VOLUME 77 FL (80-99); PLATELET COUNT 166 K/UL (150-450); RED BLOOD COUNT 3.67 M/UL (4.70-6.10); WHITE BLOOD COUNT 15.1 K/UL (4.8-10.8)
[2019-03-02 06:28] LABS: ANION GAP 11 mmol/L (5-15); BLOOD UREA NITROGEN 36 mg/dL (7-18); CALCIUM 7.3 MG/DL (8.5-10.1); CARBON DIOXIDE 21 MMOL/L (21-32); CHLORIDE 113 MMOL/L (98-107); SODIUM 146 MMOL/L (136-145)
[2019-03-02 06:36] LABS: POTASSIUM 2.5 MMOL/L (3.5-5.1)
--- NOTE | 2019-03-02 07:20 | NUR ---
HAND-OFF: Report given to JOSE Stephens.Endorsed lab result na 146 and potassium 2.5 to follow up with .
--- NOTE | 2019-03-02 07:30 | NUR ---
RESPIRATORY NOTE: Received pt on ordered vent settings. Pt endotracheal tube is patent and secured. Suctioned pt prn. Vent alarms are on and audible. Vent is plugged into red outlet. Will monitor pt progress.
--- NOTE | 2019-03-02 07:45 | NUR ---
NURSE NOTES: Report received from Alicia GARCIA. Pt awake, opens open, does not respond or follow commands. Pt connected to monitoring and evaluation advisor, SR. Pt orally intubated ETT 7.5, 26 cm at the lip line, AC 16, TV 450, 40% fiO2 at PEEP 5. GT noted and clamped. Pt kept NPO at this time. Anderson noted and intact draining deangelo urine with sediment to gravity. Pt on P200 mattress. LIJ with 1/2 NS running at 100 cc/hr. Safety measures in place with bed locked and in lowest position, side rails x 3 up and bed alarm on. Will continue to monitor and continue plan of care.
[2019-03-02] MEDS: Dakin's 0.125% Soln (Quarter Strength) 16oz TOPIC SCH (08:11)
[2019-03-02] MEDS: Meropenem 500 MG in NS 55 ML IV SCH (08:11)
[2019-03-02] MEDS: Pantoprazole Inj IVP SCH (08:11)
[2019-03-02] MEDS: Heparin 5000 units/ml inj SUBQ SCH ×2 (08:13→20:05)
--- NOTE | 2019-03-02 09:30 | NUR ---
NURSE NOTES: Pt turned and repositioned. Pt suctioned. Oral care done. Will continue to monitor.
[2019-03-02] MEDS: Vancomycin 750mg/NS 275ml IVPB SCH ×2 (09:56)
--- NOTE | 2019-03-02 10:25 | Infectious Diseases Prog Note ---
Assessment/Plan Assessment/Plan antibiotics : vancomycin iv, meropenem A 1. gram negative sepsis 2. proteus UTI 3. leucocytosis improving 4. shock 5. respiratory failure 6. schizophrenia 7. renal failure improving 8. dementia P 1. continue iv vancomycin, meropenem 2. will follow up cultures Subjective ROS Limited/Unobtainable: Yes Allergies: Coded Allergies: No Known Allergies (Unverified , 02/25/19) Objective Vital Signs Last 24 Hour Vital Signs Date Time Temp Pulse Resp B/P (MAP) Pulse Ox O2 Delivery O2 Flow Rate FiO2 03/02/19 09:16 99 24 40 50 03/02/19 09:00 99 24 112/65 (81) 99 03/02/19 08:00 103 03/02/19 08:00 Endotracheal Tube 03/02/19 08:00 98.6 107 27 115/61 (79) 99 03/02/19 07:39 98 16 100 Mechanical Ventilator 40 03/02/19 07:31 98 25 100 Mechanical Ventilator 40 03/02/19 07:30 98 25 40 50 03/02/19 07:30 105 27 111/54 (73) 99 03/02/19 07:15 111 25 113/70 (84) 99 03/02/19 07:00 106 26 92/72 (79) 99 03/02/19 06:45 104 26 130/51 (77) 100 03/02/19 06:30 105 26 109/54 (72) 99 03/02/19 06:15 108 27 112/55 (74) 99 03/02/19 06:00 112/55 03/02/19 06:00 110 27 120/62 (81) 99 03/02/19 05:45 107 26 106/55 (72) 99 03/02/19 05:30 110 27 104/54 (71) 98 03/02/19 05:15 116 32 117/62 (80) 97 03/02/19 05:05 115 29 113/58 (76) 97 03/02/19 05:00 104/54 03/02/19 05:00 104/54 03/02/19 04:45 115 28 104/70 (81) 99 03/02/19 04:31 101 26 40 50 03/02/19 04:30 113 24 127/76 (93) 100 03/02/19 04:15 106 24 118/78 (91) 100 03/02/19 04:00 98.8 102 20 106/58 (74) 100 03/02/19 04:00 Endotracheal Tube 03/02/19 04:00 110 03/02/19 04:00 118/78 03/02/19 04:00 118/78 03/02/19 03:45 99 21 108/63 (78) 100 03/02/19 03:36 98 16 100 Mechanical Ventilator 40 03/02/19 03:30 96 17 100/60 (73) 100 03/02/19 03:26 96 25 100 Mechanical Ventilator 40 03/02/19 03:26 97 24 40 50 03/02/19 03:15 95 23 104/58 (73) 100 03/02/19 03:00 99 23 98/59 (72) 100 03/02/19 03:00 108/63 03/02/19 03:00 108/63 03/02/19 02:30 105 24 100 03/02/19 02:15 102 24 109/57 (74) 100 03/02/19 02:00 106 26 104/58 (73) 100 03/02/19 02:00 109/57 03/02/19 02:00 109/57 03/02/19 01:45 111 26 96/61 (73) 99 03/02/19 01:30 112 26 111/74 (86) 99 03/02/19 01:15 109 25 96/56 (69) 98 03/02/19 01:00 116 27 117/60 (79) 98 03/02/19 01:00 96/56 03/02/19 01:00 96/56 03/02/19 00:52 117 24 40 50 03/02/19 00:45 115 22 103/81 (88) 97 03/02/19 00:30 112 26 110/63 (79) 98 03/02/19 00:15 109 26 100/59 (73) 97 03/02/19 00:00 98.7 109 26 111/65 (80) 97 03/02/19 00:00 94 03/02/19 00:00 111/65 03/02/19 00:00 111/55 03/02/19 00:00 Endotracheal Tube 03/01/19 23:30 110 23 116/63 (80) 98 03/01/19 23:15 98 22 100 Mechanical Ventilator 40 03/01/19 23:00 116/63 03/01/19 23:00 116/63 03/01/19 23:00 94 03/01/19 23:00 94 16 105/61 (76) 100 03/01/19 22:58 95 25 100 Mechanical Ventilator 40 03/01/19 22:56 94 22 40 50 03/01/19 22:30 98 23 104/61 (75) 100 03/01/19 22:00 104/61 03/01/19 22:00 104/61 03/01/19 22:00 100 25 114/64 (81) 100 03/01/19 21:30 94 21 108/60 (76) 100 03/01/19 21:24 94 23 40 50 03/01/19 21:00 101/56 03/01/19 21:00 101/56 03/01/19 21:00 98 24 101/56 (71) 100 03/01/19 20:30 101 23 96/56 (69) 99 03/01/19 20:00 98.8 106 27 109/64 (79) 100 03/01/19 20:00 95/56 03/01/19 20:00 95/56 03/01/19 20:00 Endotracheal Tube 03/01/19 19:49 140/106 03/01/19 19:35 101 22 100 Mechanical Ventilator 40 03/01/19 19:30 103 03/01/19 19:25 95 17 40 50 03/01/19 19:21 95 23 100 Mechanical Ventilator 40 03/01/19 19:00 100 18 112/65 (81) 100 03/01/19 19:00 140/106 03/01/19 18:30 101 18 110/60 (77) 100 03/01/19 18:00 106 18 115/64 (81) 100 03/01/19 17:30 102 18 111/65 (80) 100 03/01/19 17:00 105 18 122/66 (84) 100 03/01/19 16:46 106 23 40 50 03/01/19 16:30 107 18 120/64 (82) 100 03/01/19 16:00 88 03/01/19 16:00 Endotracheal Tube 03/01/19 16:00 98.9 91 18 110/60 (77) 100 03/01/19 15:59 40 03/01/19 15:55 110/50 03/01/19 15:30 95 18 115/65 (82) 100 03/01/19 15:00 99 18 117/66 (83) 100 03/01/19 14:53 104 26 100 Mechanical Ventilator 40 03/01/19 14:43 101 26 100 Mechanical Ventilator 40 03/01/19 14:42 102 24 40 50 03/01/19 14:30 102 18 118/65 (82) 100 03/01/19 14:00 104 18 115/62 (79) 100 03/01/19 13:30 90 18 118/64 (82) 100 03/01/19 13:04 107 26 40 50 03/01/19 13:00 87 18 114/66 (82) 100 03/01/19 12:30 88 18 116/65 (82) 100 03/01/19 12:00 Endotracheal Tube 03/01/19 12:00 98.7 80 18 110/64 (79) 100 03/01/19 12:00 90 03/01/19 11:30 84 18 113/60 (77) 100 03/01/19 11:00 90 18 118/64 (82) 100 03/01/19 10:44 96 23 100 Mechanical Ventilator 40 03/01/19 10:40 93 21 40 50 03/01/19 10:38 98 25 100 Mechanical Ventilator 40 03/01/19 10:30 88 18 115/64 (81) 100 Height (Feet): 5 Height (Inches): 4.00 Weight (Pounds): 118 HEENT: other - intubated Respiratory/Chest: lungs clear Cardiovascular: normal rate, regular rhythm, no gallop/murmur Abdomen: soft, non tender, other - GT Extremities: no edema - left IJ catheter Microbiology Date/Time Source Procedure Growth Status 02/28/19 00:35 Blood Blood Culture - Preliminary Gram Negative Carlos Resulted 02/28/19 00:30 Blood Blood Culture - Preliminary Gram Negative Carlos Resulted 02/28/19 00:00 Wound Gram Stain - Final Complete 02/28/19 00:00 Wound Culture - Final Proteus Mirabilis Complete 02/28/19 13:06 Sputum Gram Stain - Final Resulted 02/28/19 13:06 Sputum Culture - Preliminary Usual Upper Respiratory Liana Resulted 02/28/19 05:50 Nasal Nares MRSA Culture - Final NO METHICILLIN RESISTANT STAPH AUREUS... Complete 02/28/19 00:35 Urine,Clean Catch Urine Culture - Final Proteus Mirabilis Complete 02/28/19 05:50 Rectum - Final NO CARBAPENEM-RESISTANT ENTEROBACTERI... 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 Complete Laboratory Tests Test 03/02/19 05:10 White Blood Count 15.1 K/UL (4.8-10.8) #H Red Blood Count 3.67 M/UL (4.70-6.10) L Hemoglobin 9.0 G/DL (14.2-18.0) L Hematocrit 28.2 % (42.0-52.0) L Mean Corpuscular Volume 77 FL (80-99) L Mean Corpuscular Hemoglobin 24.6 PG (27.0-31.0) L Mean Corpuscular Hemoglobin Concent 32.0 G/DL (32.0-36.0) Red Cell Distribution Width 15.0 % (11.6-14.8) H Platelet Count 166 K/UL (150-450) Mean Platelet Volume 7.5 FL (6.5-10.1) Neutrophils (%) (Auto) % (45.0-75.0) Lymphocytes (%) (Auto) % (20.0-45.0) Monocytes (%) (Auto) % (1.0-10.0) Eosinophils (%) (Auto) % (0.0-3.0) Basophils (%) (Auto) % (0.0-2.0) Differential Total Cells Counted 100 Neutrophils % (Manual) 85 % (45-75) H Lymphocytes % (Manual) 6 % (20-45) L Monocytes % (Manual) 1 % (1-10) Eosinophils % (Manual) 0 % (0-3) Basophils % (Manual) 0 % (0-2) Band Neutrophils 8 % (0-8) Platelet Estimate Adequate Platelet Morphology Normal Anisocytosis 1+ Microcytosis 1+ Sodium Level 146 MMOL/L (136-145) H Potassium Level 2.5 MMOL/L (3.5-5.1) *L Chloride Level 113 MMOL/L (98-107) H Carbon Dioxide Level 21 MMOL/L (21-32) Anion Gap 11 mmol/L (5-15) Blood Urea Nitrogen 36 mg/dL (7-18) H Creatinine 1.0 MG/DL (0.55-1.30) # Estimat Glomerular Filtration Rate mL/min (>60) Glucose Level 96 MG/DL (74-106) Calcium Level 7.3 MG/DL (8.5-10.1) L Magnesium Level Pending Random Vancomycin Level 4.3 ug/mL Current Medications Medications (Trade) Dose Ordered Sig/Mckenzie Route PRN Reason Start Time Stop Time Status Last Admin Dose Admin Albuterol/ Ipratropium (Albuterol/ Ipratropium) 3 ml Q4HRT HHN 02/28/19 11:00 03/05/19 10:59 03/02/19 07:31 Chlorhexidine Gluconate (Liz-Hex 2%) 1 applic DAILY@2000 TOPIC 03/01/19 20:00 03/31/19 19:59 03/01/19 19:48 Dopamine HCl/ Dextrose 250 ml @ 0 mls/hr Q24H IV 02/28/19 09:45 03/30/19 09:44 03/01/19 19:49 Heparin Sodium (Porcine) (Heparin 5000 units/ml) 5,000 units EVERY 12 HOURS SUBQ 02/28/19 21:00 03/30/19 20:59 03/02/19 08:13 Meropenem 500 mg/ Sodium Chloride 55 ml @ 110 mls/hr Q12HR IV 03/01/19 12:00 03/06/19 11:59 03/02/19 08:11 Norepinephrine Bitartrate 4 mg/ Dextrose 250 ml @ 0 mls/hr Q24H IV 02/28/19 07:45 03/30/19 07:44 03/01/19 15:55 Pantoprazole (Protonix) 40 mg DAILY IVP 03/01/19 09:00 03/31/19 08:59 03/02/19 08:11 Sodium Hypochlorite (Dakin's Quarter Strength) 1 applic DAILY TOPIC 03/01/19 13:00 03/31/19 12:59 03/02/19 08:11 Sodium Chloride 1,000 ml @ 100 mls/hr Q10H IV 03/02/19 07:45 03/31/19 07:44 03/02/19 06:19 Vancomycin HCl (Vanco rx to dose) 1 ea DAILY PRN MISC Per rx protocol 02/28/19 07:45 03/30/19 07:44 Vancomycin HCl 750 mg/Sodium Chloride 275 ml @ 183.333 mls/hr Q24H IVPB 03/02/19 10:00 03/07/19 09:59 03/02/19 09:56 Manan Gomez MD Mar 02, 2019 10:25
--- NOTE | 2019-03-02 10:54 | NUR ---
NURSE NOTES: Discussed with Dr Mario pt's low potassium. ordered to replace KCL and also magnesium level. Will continue to monitor.
[2019-03-02] MEDS ORDERED: Potassium Chloride 30 MEQ in 1/2 NS 1000ml 1,000 ML IV SCH (12:00)
--- NOTE | 2019-03-02 12:41 | Critical Care Progress Note ---
Assessment/Plan Assessment/Plan Pneumonia Septic shock Acute and chronic respiratory failure with hypoxia Acute renal failure Anemia Dementia Schizophrenia Previous Hypertension H/o Atrial fibrillation COPD Previous aspiration pneumonia S/p feeding tube PLAN care noted IV antibiotics respiratory care Ventilatory support monitor RR SNF meds supportive care suction no wean for now stabilize further and reassess monitor imaging oxygen therapy prognosis guarded remains critical medications/laboratory data/nursing notes/ICU care reviewed in detail note reviewed and edited care discussed with RN and RT ICU time spent 45 minutes Critical Care - Subjective Interval Events: doing poorly on vent unrensponsive ROS Limited/Unobtainable: Yes Condition: critical EKG Rhythm: Sinus Rhythm I&O: Intake and Output 03/01/19 03/02/19 18:59 06:59 Intake Total 746.450 ml 1678.511 ml Output Total 1660 ml 1560 ml Balance -913.550 ml 118.511 ml Intake IV Total 746.450 ml 1678.511 ml Output Urine Total 1660 ml 1560 ml # Bowel Movements 3 4 Critical Care - Objective ET-Tube: 7.5 ET Position: 26 Last 24 Hour Vital Signs Date Time Temp Pulse Resp B/P (MAP) Pulse Ox O2 Delivery O2 Flow Rate FiO2 03/02/19 11:01 98 16 100 Mechanical Ventilator 40 03/02/19 10:51 99 22 100 Mechanical Ventilator 40 03/02/19 10:50 94 22 40 50 03/02/19 10:00 101 26 119/56 (77) 99 03/02/19 09:16 99 24 40 50 03/02/19 09:00 99 24 112/65 (81) 99 03/02/19 08:00 103 03/02/19 08:00 Endotracheal Tube 03/02/19 08:00 98.6 107 27 115/61 (79) 99 03/02/19 07:39 98 16 100 Mechanical Ventilator 40 03/02/19 07:31 98 25 100 Mechanical Ventilator 40 03/02/19 07:30 98 25 40 50 03/02/19 07:30 105 27 111/54 (73) 99 03/02/19 07:15 111 25 113/70 (84) 99 03/02/19 07:00 106 26 92/72 (79) 99 03/02/19 06:45 104 26 130/51 (77) 100 03/02/19 06:30 105 26 109/54 (72) 99 03/02/19 06:15 108 27 112/55 (74) 99 03/02/19 06:00 112/55 03/02/19 06:00 110 27 120/62 (81) 99 03/02/19 05:45 107 26 106/55 (72) 99 03/02/19 05:30 110 27 104/54 (71) 98 03/02/19 05:15 116 32 117/62 (80) 97 03/02/19 05:05 115 29 113/58 (76) 97 03/02/19 05:00 104/54 03/02/19 05:00 104/54 03/02/19 04:45 115 28 104/70 (81) 99 03/02/19 04:31 101 26 40 50 03/02/19 04:30 113 24 127/76 (93) 100 03/02/19 04:15 106 24 118/78 (91) 100 03/02/19 04:00 98.8 102 20 106/58 (74) 100 03/02/19 04:00 Endotracheal Tube 03/02/19 04:00 110 03/02/19 04:00 118/78 03/02/19 04:00 118/78 03/02/19 03:45 99 21 108/63 (78) 100 03/02/19 03:36 98 16 100 Mechanical Ventilator 40 03/02/19 03:30 96 17 100/60 (73) 100 03/02/19 03:26 96 25 100 Mechanical Ventilator 40 03/02/19 03:26 97 24 40 50 03/02/19 03:15 95 23 104/58 (73) 100 03/02/19 03:00 99 23 98/59 (72) 100 03/02/19 03:00 108/63 03/02/19 03:00 108/63 03/02/19 02:30 105 24 100 03/02/19 02:15 102 24 109/57 (74) 100 03/02/19 02:00 106 26 104/58 (73) 100 03/02/19 02:00 109/57 03/02/19 02:00 109/57 03/02/19 01:45 111 26 96/61 (73) 99 03/02/19 01:30 112 26 111/74 (86) 99 4/6/19 01:15 109 25 96/56 (69) 98 03/02/19 01:00 116 27 117/60 (79) 98 03/02/19 01:00 96/56 03/02/19 01:00 96/56 03/02/19 00:52 117 24 40 50 03/02/19 00:45 115 22 103/81 (88) 97 03/02/19 00:30 112 26 110/63 (79) 98 03/02/19 00:15 109 26 100/59 (73) 97 03/02/19 00:00 98.7 109 26 111/65 (80) 97 03/02/19 00:00 94 03/02/19 00:00 111/65 03/02/19 00:00 111/55 03/02/19 00:00 Endotracheal Tube 03/01/19 23:30 110 23 116/63 (80) 98 03/01/19 23:15 98 22 100 Mechanical Ventilator 40 03/01/19 23:00 116/63 03/01/19 23:00 116/63 03/01/19 23:00 94 03/01/19 23:00 94 16 105/61 (76) 100 03/01/19 22:58 95 25 100 Mechanical Ventilator 40 03/01/19 22:56 94 22 40 50 03/01/19 22:30 98 23 104/61 (75) 100 03/01/19 22:00 104/61 03/01/19 22:00 104/61 03/01/19 22:00 100 25 114/64 (81) 100 03/01/19 21:30 94 21 108/60 (76) 100 03/01/19 21:24 94 23 40 50 03/01/19 21:00 101/56 03/01/19 21:00 101/56 03/01/19 21:00 98 24 101/56 (71) 100 03/01/19 20:30 101 23 96/56 (69) 99 03/01/19 20:00 98.8 106 27 109/64 (79) 100 03/01/19 20:00 95/56 03/01/19 20:00 95/56 03/01/19 20:00 Endotracheal Tube 03/01/19 19:49 140/106 03/01/19 19:35 101 22 100 Mechanical Ventilator 40 03/01/19 19:30 103 4/5/19 19:25 95 17 40 50 03/01/19 19:21 95 23 100 Mechanical Ventilator 40 03/01/19 19:00 100 18 112/65 (81) 100 03/01/19 19:00 140/106 03/01/19 18:30 101 18 110/60 (77) 100 03/01/19 18:00 106 18 115/64 (81) 100 03/01/19 17:30 102 18 111/65 (80) 100 03/01/19 17:00 105 18 122/66 (84) 100 03/01/19 16:46 106 23 40 50 03/01/19 16:30 107 18 120/64 (82) 100 03/01/19 16:00 88 03/01/19 16:00 Endotracheal Tube 03/01/19 16:00 98.9 91 18 110/60 (77) 100 03/01/19 15:59 40 03/01/19 15:55 110/50 03/01/19 15:30 95 18 115/65 (82) 100 03/01/19 15:00 99 18 117/66 (83) 100 03/01/19 14:53 104 26 100 Mechanical Ventilator 40 03/01/19 14:43 101 26 100 Mechanical Ventilator 40 03/01/19 14:42 102 24 40 50 03/01/19 14:30 102 18 118/65 (82) 100 03/01/19 14:00 104 18 115/62 (79) 100 03/01/19 13:30 90 18 118/64 (82) 100 03/01/19 13:04 107 26 40 50 03/01/19 13:00 87 18 114/66 (82) 100 Labs: Labs Test 02/28/19 00:35 02/28/19 02:08 02/28/19 08:15 02/28/19 09:17 White Blood Count 14.8 K/UL (4.8-10.8) Red Blood Count 4.75 M/UL (4.70-6.10) Hemoglobin 11.9 G/DL (14.2-18.0) Hematocrit 37.0 % (42.0-52.0) Mean Corpuscular Volume 78 FL (80-99) Mean Corpuscular Hemoglobin 25.1 PG (27.0-31.0) Mean Corpuscular Hemoglobin Concent 32.2 G/DL (32.0-36.0) Red Cell Distribution Width 15.3 % (11.6-14.8) Platelet Count 347 K/UL (150-450) Mean Platelet Volume 6.5 FL (6.5-10.1) Neutrophils (%) (Auto) % (45.0-75.0) Lymphocytes (%) (Auto) % (20.0-45.0) Monocytes (%) (Auto) % (1.0-10.0) Eosinophils (%) (Auto) % (0.0-3.0) Basophils (%) (Auto) % (0.0-2.0) Prothrombin Time 12.1 SEC (9.30-11.50) Prothromb Time International Ratio 1.2 (0.9-1.1) Activated Partial Thromboplast Time 26 SEC (23-33) Urine Color Yellow Urine Appearance Cloudy Urine pH 9 (4.5-8.0) Urine Specific [place] 1.015 (1.005-1.035) Urine Protein 4+ (NEGATIVE) Urine Glucose (UA) Negative (NEGATIVE) Urine Ketones Negative (NEGATIVE) Urine Blood Negative (NEGATIVE) Urine Nitrite Negative (NEGATIVE) Urine Bilirubin Negative (NEGATIVE) Urine Urobilinogen Normal MG/DL (0.0-1.0) Urine Leukocyte Esterase 1+ (NEGATIVE) Urine RBC 0-2 /HPF (0 - 0) Urine WBC 0-2 /HPF (0 - 0) Urine Squamous Epithelial Cells None /LPF (NONE/OCC) Urine Triple Phosphate Crystals Moderate /LPF (NONE) Urine Amorphous Sediment Many /LPF (NONE) Urine Bacteria Many /HPF (NONE) Sodium Level 148 MMOL/L (136-145) Potassium Level 3.9 MMOL/L (3.5-5.1) Chloride Level 108 MMOL/L (98-107) Carbon Dioxide Level 23 MMOL/L (21-32) Anion Gap 18 mmol/L (5-15) Blood Urea Nitrogen 82 mg/dL (7-18) Creatinine 3.0 MG/DL (0.55-1.30) Estimat Glomerular Filtration Rate mL/min (>60) Glucose Level 103 MG/DL (74-106) Lactic Acid Level 12.40 mmol/L (0.4-2.0) 5.80 mmol/L (0.66-2.22) 5.10 mmol/L (0.4-2.0) Calcium Level 8.7 MG/DL (8.5-10.1) Total Bilirubin 0.4 MG/DL (0.2-1.0) Aspartate Amino Transf (AST/SGOT) 28 U/L (15-37) Alanine Aminotransferase (ALT/SGPT) 35 U/L (12-78) Alkaline Phosphatase 133 U/L (46-116) Total Creatine Kinase 322 U/L (26-308) Creatine Kinase MB 2.7 NG/ML (0.0-3.6) Creatine Kinase MB Relative Index 0.8 Troponin I 0.050 ng/mL (0.000-0.056) 0.433 ng/mL (0.000-0.056) Total Protein 6.8 G/DL (6.4-8.2) Albumin 1.7 G/DL (3.4-5.0) Globulin 5.1 g/dL Albumin/Globulin Ratio 0.3 (1.0-2.7) Arterial Blood pH 7.429 (7.350-7.450) Arterial Blood Partial Pressure CO2 27.9 mmHg (35.0-45.0) Arterial Blood Partial Pressure O2 90.0 mmHg (75.0-100.0) Arterial Blood HCO3 18.1 mmol/L (22.0-26.0) Arterial Blood Oxygen Saturation 96.1 % (95-100) Arterial Blood Base Excess -5.3 (-2-2) Rhett Test Positive Test 02/28/19 14:00 02/28/19 16:45 02/28/19 19:00 02/28/19 19:37 Troponin I 1.426 ng/mL (0.000-0.056) Arterial Blood pH 7.342 (7.350-7.450) 7.469 (7.350-7.450) Arterial Blood Partial Pressure CO2 30.0 mmHg (35.0-45.0) 23.1 mmHg (35.0-45.0) Arterial Blood Partial Pressure O2 139.6 mmHg (75.0-100.0) 80.0 mmHg (75.0-100.0) Arterial Blood HCO3 15.9 mmol/L (22.0-26.0) 16.4 mmol/L (22.0-26.0) Arterial Blood Oxygen Saturation 98.3 % (95-100) 96.0 % (95-100) Arterial Blood Base Excess -8.7 (-2-2) -5.8 (-2-2) Rhett Test Positive Positive Lactic Acid Level 3.20 mmol/L (0.4-2.0) Test 02/28/19 21:10 03/01/19 01:00 03/01/19 03:25 03/01/19 04:40 Lactic Acid Level 2.90 mmol/L (0.66-2.22) 1.80 mmol/L (0.4-2.0) White Blood Count 36.1 K/UL (4.8-10.8) Red Blood Count 3.82 M/UL (4.70-6.10) Hemoglobin 9.3 G/DL (14.2-18.0) Hematocrit 29.2 % (42.0-52.0) Mean Corpuscular Volume 76 FL (80-99) Mean Corpuscular Hemoglobin 24.4 PG (27.0-31.0) Mean Corpuscular Hemoglobin Concent 31.9 G/DL (32.0-36.0) Red Cell Distribution Width 15.1 % (11.6-14.8) Platelet Count 223 K/UL (150-450) Mean Platelet Volume 6.8 FL (6.5-10.1) Neutrophils (%) (Auto) % (45.0-75.0) Lymphocytes (%) (Auto) % (20.0-45.0) Monocytes (%) (Auto) % (1.0-10.0) Eosinophils (%) (Auto) % (0.0-3.0) Basophils (%) (Auto) % (0.0-2.0) Differential Total Cells Counted 100 Neutrophils % (Manual) 94 % (45-75) Lymphocytes % (Manual) 3 % (20-45) Monocytes % (Manual) 1 % (1-10) Eosinophils % (Manual) 0 % (0-3) Basophils % (Manual) 0 % (0-2) Band Neutrophils 2 % (0-8) Platelet Estimate Adequate Platelet Morphology Normal Hypochromasia 2+ Anisocytosis 1+ Microcytosis 1+ Sodium Level 140 MMOL/L (136-145) Potassium Level 3.4 MMOL/L (3.5-5.1) Chloride Level 108 MMOL/L (98-107) Carbon Dioxide Level 19 MMOL/L (21-32) Anion Gap 14 mmol/L (5-15) Blood Urea Nitrogen 72 mg/dL (7-18) Creatinine 2.1 MG/DL (0.55-1.30) Estimat Glomerular Filtration Rate mL/min (>60) Glucose Level 88 MG/DL (74-106) Calcium Level 7.0 MG/DL (8.5-10.1) Phosphorus Level 3.4 MG/DL (2.5-4.9) Magnesium Level 1.7 MG/DL (1.8-2.4) Test 03/01/19 06:50 03/01/19 08:54 03/02/19 05:10 Arterial Blood pH 7.460 (7.350-7.450) 7.490 (7.350-7.450) Arterial Blood Partial Pressure CO2 27.3 mmHg (35.0-45.0) 26.3 mmHg (35.0-45.0) Arterial Blood Partial Pressure O2 246.0 mmHg (75.0-100.0) 122.3 mmHg (75.0-100.0) Arterial Blood HCO3 19.4 mmol/L (22.0-26.0) 20.0 mmol/L (22.0-26.0) Arterial Blood Oxygen Saturation 99.1 % (95-100) 98.1 % (95-100) Arterial Blood Base Excess -3.3 (-2-2) -2.3 (-2-2) Rhett Test Positive Positive White Blood Count 15.1 K/UL (4.8-10.8) Red Blood Count 3.67 M/UL (4.70-6.10) Hemoglobin 9.0 G/DL (14.2-18.0) Hematocrit 28.2 % (42.0-52.0) Mean Corpuscular Volume 77 FL (80-99) Mean Corpuscular Hemoglobin 24.6 PG (27.0-31.0) Mean Corpuscular Hemoglobin Concent 32.0 G/DL (32.0-36.0) Red Cell Distribution Width 15.0 % (11.6-14.8) Platelet Count 166 K/UL (150-450) Mean Platelet Volume 7.5 FL (6.5-10.1) Neutrophils (%) (Auto) % (45.0-75.0) Lymphocytes (%) (Auto) % (20.0-45.0) Monocytes (%) (Auto) % (1.0-10.0) Eosinophils (%) (Auto) % (0.0-3.0) Basophils (%) (Auto) % (0.0-2.0) Differential Total Cells Counted 100 Neutrophils % (Manual) 85 % (45-75) Lymphocytes % (Manual) 6 % (20-45) Monocytes % (Manual) 1 % (1-10) Eosinophils % (Manual) 0 % (0-3) Basophils % (Manual) 0 % (0-2) Band Neutrophils 8 % (0-8) Platelet Estimate Adequate Platelet Morphology Normal Anisocytosis 1+ Microcytosis 1+ Sodium Level 146 MMOL/L (136-145) Potassium Level 2.5 MMOL/L (3.5-5.1) Chloride Level 113 MMOL/L (98-107) Carbon Dioxide Level 21 MMOL/L (21-32) Anion Gap 11 mmol/L (5-15) Blood Urea Nitrogen 36 mg/dL (7-18) Creatinine 1.0 MG/DL (0.55-1.30) Estimat Glomerular Filtration Rate mL/min (>60) Glucose Level 96 MG/DL (74-106) Calcium Level 7.3 MG/DL (8.5-10.1) Magnesium Level 2.7 MG/DL (1.8-2.4) Random Vancomycin Level 4.3 ug/mL Objective: WDWN NAD chronically ill orally intubated reduced breath sounds bilaterally without rhonchi or wheeze [id number] without MRG NABS nontender no HSM no CCE nonfocal but poorly responsive reduced ROM- contractures skin noted reviewed and edited tubes noted Micro: Microbiology Date/Time Source Procedure Growth Status 02/28/19 00:35 Blood Blood Culture - Preliminary Gram Negative Carlos Resulted 02/28/19 00:30 Blood Blood Culture - Preliminary Gram Negative Carlos Resulted 02/28/19 00:00 Wound Gram Stain - Final Complete 02/28/19 00:00 Wound Culture - Final Proteus Mirabilis Complete 02/28/19 13:06 Sputum Gram Stain - Final Resulted 02/28/19 13:06 Sputum Culture - Preliminary Usual Upper Respiratory Liana Resulted 02/28/19 05:50 Nasal Nares MRSA Culture - Final NO METHICILLIN RESISTANT STAPH AUREUS... Complete 02/28/19 00:35 Urine,Clean Catch Urine Culture - Final Proteus Mirabilis Complete 02/28/19 05:50 Rectum - Final NO CARBAPENEM-RESISTANT ENTEROBACTERI... 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 Complete Tim Andrade MD Mar 02, 2019 12:41
--- NOTE | 2019-03-02 13:24 | NUR ---
NURSE NOTES: Pt turned and repositioned. Suctioned pt endotracheally. VSS. Will continue to monitor.
--- NOTE | 2019-03-02 15:39 | NUR ---
NURSE NOTES: Pt resting comfortably. No acute distress. Will continue to monitor.
--- NOTE | 2019-03-02 16:01 | Surgery Progress Note ---
Surgery Progress Note Subjective Procedure Performed endotracheal tube intubation Additional Comments off pressors. still on vent support. otherwise exam unchanged. Objective Last 24 Hour Vital Signs Date Time Temp Pulse Resp B/P (MAP) Pulse Ox O2 Delivery O2 Flow Rate FiO2 03/02/19 15:59 40 03/02/19 15:06 98 16 100 Mechanical Ventilator 40 03/02/19 15:00 95 15 114/58 (76) 100 03/02/19 14:57 98 24 100 Mechanical Ventilator 40 03/02/19 14:57 95 24 40 50 03/02/19 14:00 101 23 115/76 (89) 100 03/02/19 13:00 97 27 113/59 (77) 100 03/02/19 12:36 96 23 40 50 03/02/19 12:00 Endotracheal Tube 03/02/19 12:00 99 03/02/19 12:00 98.6 98 21 102/62 (75) 99 03/02/19 11:01 98 16 100 Mechanical Ventilator 40 03/02/19 11:00 101 12 106/59 (75) 100 03/02/19 10:51 99 22 100 Mechanical Ventilator 40 03/02/19 10:50 94 22 40 50 03/02/19 10:00 101 26 119/56 (77) 99 03/02/19 09:16 99 24 40 50 03/02/19 09:00 99 24 112/65 (81) 99 03/02/19 08:00 103 03/02/19 08:00 Endotracheal Tube 03/02/19 08:00 98.6 107 27 115/61 (79) 99 03/02/19 07:39 98 16 100 Mechanical Ventilator 40 03/02/19 07:31 98 25 100 Mechanical Ventilator 40 03/02/19 07:30 98 25 40 50 03/02/19 07:30 105 27 111/54 (73) 99 03/02/19 07:15 111 25 113/70 (84) 99 03/02/19 07:00 106 26 92/72 (79) 99 03/02/19 06:45 104 26 130/51 (77) 100 03/02/19 06:30 105 26 109/54 (72) 99 03/02/19 06:15 108 27 112/55 (74) 99 03/02/19 06:00 112/55 03/02/19 06:00 110 27 120/62 (81) 99 03/02/19 05:45 107 26 106/55 (72) 99 03/02/19 05:30 110 27 104/54 (71) 98 03/02/19 05:15 116 32 117/62 (80) 97 03/02/19 05:05 115 29 113/58 (76) 97 03/02/19 05:00 104/54 03/02/19 05:00 104/54 03/02/19 04:45 115 28 104/70 (81) 99 03/02/19 04:31 101 26 40 50 03/02/19 04:30 113 24 127/76 (93) 100 03/02/19 04:15 106 24 118/78 (91) 100 03/02/19 04:00 98.8 102 20 106/58 (74) 100 03/02/19 04:00 Endotracheal Tube 03/02/19 04:00 110 03/02/19 04:00 118/78 03/02/19 04:00 118/78 03/02/19 03:45 99 21 108/63 (78) 100 03/02/19 03:36 98 16 100 Mechanical Ventilator 40 03/02/19 03:30 96 17 100/60 (73) 100 03/02/19 03:26 96 25 100 Mechanical Ventilator 40 03/02/19 03:26 97 24 40 50 03/02/19 03:15 95 23 104/58 (73) 100 03/02/19 03:00 99 23 98/59 (72) 100 03/02/19 03:00 108/63 03/02/19 03:00 108/63 03/02/19 02:30 105 24 100 03/02/19 02:15 102 24 109/57 (74) 100 03/02/19 02:00 106 26 104/58 (73) 100 03/02/19 02:00 109/57 03/02/19 02:00 109/57 03/02/19 01:45 111 26 96/61 (73) 99 03/02/19 01:30 112 26 111/74 (86) 99 03/02/19 01:15 109 25 96/56 (69) 98 03/02/19 01:00 116 27 117/60 (79) 98 03/02/19 01:00 96/56 03/02/19 01:00 96/56 03/02/19 00:52 117 24 40 50 03/02/19 00:45 115 22 103/81 (88) 97 03/02/19 00:30 112 26 110/63 (79) 98 03/02/19 00:15 109 26 100/59 (73) 97 03/02/19 00:00 98.7 109 26 111/65 (80) 97 03/02/19 00:00 94 03/02/19 00:00 111/65 03/02/19 00:00 111/55 03/02/19 00:00 Endotracheal Tube 03/01/19 23:30 110 23 116/63 (80) 98 03/01/19 23:15 98 22 100 Mechanical Ventilator 40 03/01/19 23:00 116/63 03/01/19 23:00 116/63 03/01/19 23:00 94 03/01/19 23:00 94 16 105/61 (76) 100 03/01/19 22:58 95 25 100 Mechanical Ventilator 40 03/01/19 22:56 94 22 40 50 03/01/19 22:30 98 23 104/61 (75) 100 03/01/19 22:00 104/61 03/01/19 22:00 104/61 03/01/19 22:00 100 25 114/64 (81) 100 03/01/19 21:30 94 21 108/60 (76) 100 03/01/19 21:24 94 23 40 50 03/01/19 21:00 101/56 03/01/19 21:00 101/56 03/01/19 21:00 98 24 101/56 (71) 100 03/01/19 20:30 101 23 96/56 (69) 99 03/01/19 20:00 98.8 106 27 109/64 (79) 100 03/01/19 20:00 95/56 03/01/19 20:00 95/56 03/01/19 20:00 Endotracheal Tube 03/01/19 19:49 140/106 03/01/19 19:35 101 22 100 Mechanical Ventilator 40 03/01/19 19:30 103 03/01/19 19:25 95 17 40 50 03/01/19 19:21 95 23 100 Mechanical Ventilator 40 4/5/19 19:00 100 18 112/65 (81) 100 03/01/19 19:00 140/106 03/01/19 18:30 101 18 110/60 (77) 100 03/01/19 18:00 106 18 115/64 (81) 100 03/01/19 17:30 102 18 111/65 (80) 100 03/01/19 17:00 105 18 122/66 (84) 100 03/01/19 16:46 106 23 40 50 03/01/19 16:30 107 18 120/64 (82) 100 I&O Intake and Output 03/01/19 03/02/19 18:59 06:59 Intake Total 746.450 ml 1678.511 ml Output Total 1660 ml 1560 ml Balance -913.550 ml 118.511 ml Intake IV Total 746.450 ml 1678.511 ml Output Urine Total 1660 ml 1560 ml # Bowel Movements 3 4 Dressing: saturated Wound: other Drains: other Cardiovascular: RSR Respiratory: decreased breath sounds Abdomen: soft, present bowel sounds, non-distended, decreased bowel sounds Extremities: edema, other Laboratory Tests Test 03/02/19 05:10 White Blood Count 15.1 K/UL (4.8-10.8) #H Red Blood Count 3.67 M/UL (4.70-6.10) L Hemoglobin 9.0 G/DL (14.2-18.0) L Hematocrit 28.2 % (42.0-52.0) L Mean Corpuscular Volume 77 FL (80-99) L Mean Corpuscular Hemoglobin 24.6 PG (27.0-31.0) L Mean Corpuscular Hemoglobin Concent 32.0 G/DL (32.0-36.0) Red Cell Distribution Width 15.0 % (11.6-14.8) H Platelet Count 166 K/UL (150-450) Mean Platelet Volume 7.5 FL (6.5-10.1) Neutrophils (%) (Auto) % (45.0-75.0) Lymphocytes (%) (Auto) % (20.0-45.0) Monocytes (%) (Auto) % (1.0-10.0) Eosinophils (%) (Auto) % (0.0-3.0) Basophils (%) (Auto) % (0.0-2.0) Differential Total Cells Counted 100 Neutrophils % (Manual) 85 % (45-75) H Lymphocytes % (Manual) 6 % (20-45) L Monocytes % (Manual) 1 % (1-10) Eosinophils % (Manual) 0 % (0-3) Basophils % (Manual) 0 % (0-2) Band Neutrophils 8 % (0-8) Platelet Estimate Adequate Platelet Morphology Normal Anisocytosis 1+ Microcytosis 1+ Sodium Level 146 MMOL/L (136-145) H Potassium Level 2.5 MMOL/L (3.5-5.1) *L Chloride Level 113 MMOL/L (98-107) H Carbon Dioxide Level 21 MMOL/L (21-32) Anion Gap 11 mmol/L (5-15) Blood Urea Nitrogen 36 mg/dL (7-18) H Creatinine 1.0 MG/DL (0.55-1.30) # Estimat Glomerular Filtration Rate mL/min (>60) Glucose Level 96 MG/DL (74-106) Calcium Level 7.3 MG/DL (8.5-10.1) L Magnesium Level 2.7 MG/DL (1.8-2.4) H Random Vancomycin Level 4.3 ug/mL Plan Problems: (1) Ulcer of lower extremity excluding decubitus ulcer Assessment & Plan: Pt presented on admission with contractures both lower ext with multiple necrotic wounds L trochanter,R tibia, and L foot. Lateral L foot (L)3.5cm x (W)11cm.90%Soft necrosis with surrounding slough along borders.Wound is malodorous. Small amt brown exudate noted.Greyish colour periwound. L Lateral metatarsal to L hallux (L)4.3cm x (W)6.9cm . Base of wound necrotic with area of fluctuance at lateral aspect L1st metatarsal.Wound is malodorous with small amt brownish exudate Greyish colour periwound. Lateral L heel (L)3cm x (W)6.6cm.100%Unstable necrosis base of wound with surrounding mixed soft slough with erythema.Wound is malodorous. Wound is malodorous with small amt brownish exudate. Plantar L foot (L)2.5cm x (W)1.5cm Unstable necrosis with indurated borders. No exudate noted. All 5 metatarsals are burgess in color. Full thickness pressure injury R tibia(L)6.5cm x (W)1cm. elongated wound with indurated red borders,10% necrosis at proximal end with #2 areas of slough- approx 10% with erythema that is dry remaining base of wound .No odor noted. Non-blanchable erythema with scattered purple areas medial L tibia(L)5.7cm x (W) 4.5cm.Site without fluctuance or induration .No elevation in skin temp. Dorsal R 2nd metatarsal head maroon with fluctuance.(L)0.8cm x (W)1.3cm. R heel boggy with non-blanchable erythema. Pressure injury to L trochanter 90% necrotic,dry with pink epithelialized borders. Dark skin tone without erythema or induration periwound .In close proximity is an area with pink epithelial tissue with a linear area in center that is brown but dry and adherent to base. Resolving pressure injury to sacrum.95% epithelial at base of wound .Small area at coccyx measuring(L)0.4cm x (W)0.3cm with yellow slough.No exudate noted. Areas of hyperpigmentation scarring noted to R and L ischial areas. Tx.Plan: Cleanse L trochanter with Saline. Apply Dakins 1/4% soaked gauze to L trochanter.Apply Cavilon Skin Barrier periwound. Cover with Optifoam drsg. Change daily and PRN. Cleanse R tibia with Saline.Apply Dakins 1/4% soaked gauze. Cavilon Skin Barrier periwound.Cover with Optifoam drsg. Change Daily and prn. Apply Cavilon Skin Barrier to L medial /idalia L tibia .Cover with Optifoam drsg. Change every 7 days and prn. Apply Cavilon Skin Barrier to R heel. Cover with Optifoam drsg.Change every 7 days and PRN. Cleanse coccygeal wound with saline. Apply Therahoney.Apply Triad Paste periwound to sacrum. Cover with Optifoam drsg. Change Daily and prn. APM/KAVON Mattress overlay. Reposition at least every 2hours or as tolerated. Place Pillow between knees . Off-load heels with pillow. (2) Septic shock Assessment & Plan: Intubated for airway protection in ICU see note for details cont with vent CXR ABG with trend and wean vent settings trend labs wean pressors fluids aguilera will monitor prognosis guarded (3) Asymptomatic bacteriuria (4) ARF (acute renal failure) (5) Healthcare-associated pneumonia (6) Acute and chronic respiratory failure with hypoxia (7) Anemia (8) Alzheimer disease (9) Dysphagia (10) Sepsis (11) Pneumonia (12) Gastroparesis (13) Severe sepsis (14) Encounter for PEG (percutaneous endoscopic gastrostomy) (15) Decubitus ulcer of trochanteric region of left hip Rios Quiñones Mar 02, 2019 16:01
--- NOTE | 2019-03-02 17:22 | NUR ---
NURSE NOTES: VSS. No acute distress. Will continue to monitor.
--- NOTE | 2019-03-02 19:06 | NUR ---
RESPIRATORY NOTE: Received pt. on 840 vent. Vent settings are: A/C rate of 16, Vt 450, FI02 40%, PEEP +5. No respiratory distress noted, sP02 @ 100%. Ambu bag @ BS. Vent plugged on red outlet. Will continue to monitor pt.
--- NOTE | 2019-03-02 19:22 | NUR ---
HAND-OFF: Report given to Alicia GARCIA.
--- NOTE | 2019-03-02 19:30 | NUR ---
NURSE NOTES: Received patient from JOSE Stephens. Pt is obtunded, non verbal. ETT 7.5/26cm lip line, AC 16, TV 450 Fi02 40% Peep of 5. Pt has g-tube, clamped and NPO. Anderson draining with yellow urine. Pt is contracted with multiple wounds, on P200 mattress for wound management. left EJ TLC and Right EJ intact running KCL 30 mEq in 0.45% NS at 75cc/hr. Safety measures in place. Bed in low position bed alarm on and in low position. Contact isolation maintained and observed. will continue to monitor plan of care.
[2019-03-02] MEDS: Dyna-Hex 2% Top Sol 2oz TOPIC SCH (20:03)
[2019-03-02] MEDS: Meropenem 1 GM in NS 55 ML IV SCH (20:03)
--- NOTE | 2019-03-02 20:05 | General Progress Note ---
Assessment/Plan Problem List: (1) Hypokalemia ICD Codes: E87.6 - Hypokalemia SNOMED: 67821408 (2) Proteus septicemia ICD Codes: A41.59 - Other Gram-negative sepsis SNOMED: 266712276 (3) Pyelonephritis ICD Codes: N12 - Tubulo-interstitial nephritis, not specified as acute or chronic SNOMED: 34254740 (4) Septic shock ICD Codes: A41.9 - Sepsis, unspecified organism; R65.21 - Severe sepsis with septic shock SNOMED: 01472793, 295533256 (5) ARF (acute renal failure) ICD Codes: N17.9 - Acute kidney failure, unspecified SNOMED: 86209051, 273112661 Qualifiers: Qualified Codes: N17.9 - Acute kidney failure, unspecified (6) Acute and chronic respiratory failure with hypoxia ICD Codes: J96.21 - Acute and chronic respiratory failure with hypoxia SNOMED: 90436446, 955296415 (7) Anemia ICD Codes: D64.9 - Anemia, unspecified SNOMED: 798472194 Qualifiers: Qualified Codes: D64.9 - Anemia, unspecified (8) Alzheimer disease ICD Codes: G30.9 - Alzheimer's disease, unspecified; F02.80 - Dementia in other diseases classified elsewhere without behavioral disturbance SNOMED: 15616887 (9) Decubitus ulcer of trochanteric region of left hip ICD Codes: L89.229 - Pressure ulcer of left hip, unspecified stage SNOMED: 570997484 Assessment/Plan vent care, antibiotics kcl, decub care Subjective ROS Limited/Unobtainable: Yes Allergies: Coded Allergies: No Known Allergies (Unverified , 02/25/19) Objective Last 24 Hour Vital Signs Date Time Temp Pulse Resp B/P (MAP) Pulse Ox O2 Delivery O2 Flow Rate FiO2 03/02/19 19:11 91 16 100 Mechanical Ventilator 40 03/02/19 19:04 92 24 40 50 03/02/19 19:03 92 25 98 Mechanical Ventilator 40 03/02/19 19:00 91 26 116/71 (86) 100 03/02/19 18:00 94 28 120/70 (87) 100 03/02/19 17:00 90 26 132/98 (109) 100 03/02/19 16:00 Endotracheal Tube 03/02/19 16:00 91 03/02/19 16:00 98.3 92 25 113/63 (80) 100 03/02/19 15:59 40 03/02/19 15:06 98 16 100 Mechanical Ventilator 40 03/02/19 15:00 95 15 114/58 (76) 100 03/02/19 14:57 98 24 100 Mechanical Ventilator 40 03/02/19 14:57 95 24 40 50 03/02/19 14:00 101 23 115/76 (89) 100 03/02/19 13:00 97 27 113/59 (77) 100 03/02/19 12:36 96 23 40 50 03/02/19 12:00 Endotracheal Tube 03/02/19 12:00 99 03/02/19 12:00 98.6 98 21 102/62 (75) 99 03/02/19 11:01 98 16 100 Mechanical Ventilator 40 03/02/19 11:00 101 12 106/59 (75) 100 03/02/19 10:51 99 22 100 Mechanical Ventilator 40 03/02/19 10:50 94 22 40 50 03/02/19 10:00 101 26 119/56 (77) 99 03/02/19 09:16 99 24 40 50 03/02/19 09:00 99 24 112/65 (81) 99 03/02/19 08:00 103 03/02/19 08:00 Endotracheal Tube 03/02/19 08:00 98.6 107 27 115/61 (79) 99 03/02/19 07:39 98 16 100 Mechanical Ventilator 40 03/02/19 07:31 98 25 100 Mechanical Ventilator 40 03/02/19 07:30 98 25 40 50 03/02/19 07:30 105 27 111/54 (73) 99 03/02/19 07:15 111 25 113/70 (84) 99 03/02/19 07:00 106 26 92/72 (79) 99 03/02/19 06:45 104 26 130/51 (77) 100 03/02/19 06:30 105 26 109/54 (72) 99 03/02/19 06:15 108 27 112/55 (74) 99 03/02/19 06:00 112/55 03/02/19 06:00 110 27 120/62 (81) 99 03/02/19 05:45 107 26 106/55 (72) 99 03/02/19 05:30 110 27 104/54 (71) 98 03/02/19 05:15 116 32 117/62 (80) 97 03/02/19 05:05 115 29 113/58 (76) 97 03/02/19 05:00 104/54 03/02/19 05:00 104/54 03/02/19 04:45 115 28 104/70 (81) 99 03/02/19 04:31 101 26 40 50 03/02/19 04:30 113 24 127/76 (93) 100 03/02/19 04:15 106 24 118/78 (91) 100 03/02/19 04:00 98.8 102 20 106/58 (74) 100 03/02/19 04:00 Endotracheal Tube 03/02/19 04:00 110 03/02/19 04:00 118/78 03/02/19 04:00 118/78 03/02/19 03:45 99 21 108/63 (78) 100 03/02/19 03:36 98 16 100 Mechanical Ventilator 40 03/02/19 03:30 96 17 100/60 (73) 100 03/02/19 03:26 96 25 100 Mechanical Ventilator 40 03/02/19 03:26 97 24 40 50 03/02/19 03:15 95 23 104/58 (73) 100 03/02/19 03:00 99 23 98/59 (72) 100 03/02/19 03:00 108/63 03/02/19 03:00 108/63 03/02/19 02:30 105 24 100 03/02/19 02:15 102 24 109/57 (74) 100 03/02/19 02:00 106 26 104/58 (73) 100 03/02/19 02:00 109/57 03/02/19 02:00 109/57 03/02/19 01:45 111 26 96/61 (73) 99 03/02/19 01:30 112 26 111/74 (86) 99 03/02/19 01:15 109 25 96/56 (69) 98 03/02/19 01:00 116 27 117/60 (79) 98 03/02/19 01:00 96/56 03/02/19 01:00 96/56 03/02/19 00:52 117 24 40 50 03/02/19 00:45 115 22 103/81 (88) 97 03/02/19 00:30 112 26 110/63 (79) 98 03/02/19 00:15 109 26 100/59 (73) 97 03/02/19 00:00 98.7 109 26 111/65 (80) 97 03/02/19 00:00 94 03/02/19 00:00 111/65 03/02/19 00:00 111/55 03/02/19 00:00 Endotracheal Tube 03/01/19 23:30 110 23 116/63 (80) 98 03/01/19 23:15 98 22 100 Mechanical Ventilator 40 03/01/19 23:00 116/63 03/01/19 23:00 116/63 03/01/19 23:00 94 03/01/19 23:00 94 16 105/61 (76) 100 03/01/19 22:58 95 25 100 Mechanical Ventilator 40 03/01/19 22:56 94 22 40 50 03/01/19 22:30 98 23 104/61 (75) 100 03/01/19 22:00 104/61 03/01/19 22:00 104/61 03/01/19 22:00 100 25 114/64 (81) 100 03/01/19 21:30 94 21 108/60 (76) 100 03/01/19 21:24 94 23 40 50 03/01/19 21:00 101/56 03/01/19 21:00 101/56 03/01/19 21:00 98 24 101/56 (71) 100 03/01/19 20:30 101 23 96/56 (69) 99 Intake and Output 03/01/19 03/02/19 19:00 07:00 Intake Total 561.805 ml 1709.311 ml Output Total 1380 ml 1540 ml Balance -818.195 ml 169.311 ml Intake IV Total 561.805 ml 1709.311 ml Output Urine Total 1380 ml 1540 ml # Bowel Movements 3 4 Laboratory Tests 03/02/19 05:10: White Blood Count 15.1#H, Red Blood Count 3.67L, Hemoglobin 9.0L, Hematocrit 28.2L, Mean Corpuscular Volume 77L, Mean Corpuscular Hemoglobin 24.6L, Mean Corpuscular Hemoglobin Concent 32.0, Red Cell Distribution Width 15.0H, Platelet Count 166, Mean Platelet Volume 7.5, Neutrophils (%) (Auto) , Lymphocytes (%) (Auto) , Monocytes (%) (Auto) , Eosinophils (%) (Auto) , Basophils (%) (Auto) , Differential Total Cells Counted 100, Neutrophils % ( Manual) 85H, Lymphocytes % (Manual) 6L, Monocytes % (Manual) 1, Eosinophils % ( Manual) 0, Basophils % (Manual) 0, Band Neutrophils 8, Platelet Estimate Adequate, Platelet Morphology Normal, Anisocytosis 1+, Microcytosis 1+, Sodium Level 146H, Potassium Level 2.5*L, Chloride Level 113H, Carbon Dioxide Level 21 , Anion Gap 11, Blood Urea Nitrogen 36H, Creatinine 1.0#, Estimat Glomerular Filtration Rate , Glucose Level 96, Calcium Level 7.3L, Magnesium Level 2.7H, Random Vancomycin Level 4.3 Height (Feet): 5 Height (Inches): 4.00 Weight (Pounds): 118 General Appearance: cachetic EENT: other - intubated Neck: normal alignment Cardiovascular: normal rate, regular rhythm Respiratory/Chest: rhonchi - bilaterally Abdomen: non tender, soft Edema: no edema noted Arm (L), no edema noted Arm (R), no edema noted Leg (L), no edema noted Leg (R), no edema noted Pedal (L), no edema noted Pedal (R), no edema noted Generalized Neurologic: disoriented Skin: other - Thiago Ramirez MD Mar 02, 2019 20:05
--- NOTE | 2019-03-02 20:55 | Cardiology Progress Note ---
Assessment/Plan Problem List: (1) Sinus tachycardia (2) Septic shock (3) ARF (acute renal failure) (4) Healthcare-associated pneumonia (5) Acute and chronic respiratory failure with hypoxia Status: stable, unchanged Assessment/Plan Pt currently off pressors. Sinus tach previously likely due to sepsis, dopamine effects Mild troponin elevation without wma on ECHO - c/w demand ischemia. EKG ( unable to locate on computer or in chart) Medical therapy for CAD when more hemodyn stable. Continue vent support, iv abx, g tube feeds per primary team Subjective ROS Limited/Unobtainable: Yes Subjective Cardiology for Dr. Doty Pt intubated, not responsive Objective Last 24 Hour Vital Signs Date Time Temp Pulse Resp B/P (MAP) Pulse Ox O2 Delivery O2 Flow Rate FiO2 03/02/19 20:00 Endotracheal Tube 03/02/19 20:00 99.0 95 25 111/58 (75) 99 03/02/19 19:11 91 16 100 Mechanical Ventilator 40 03/02/19 19:04 92 24 40 50 03/02/19 19:03 92 25 98 Mechanical Ventilator 40 03/02/19 19:00 91 26 116/71 (86) 100 03/02/19 18:00 94 28 120/70 (87) 100 03/02/19 17:00 90 26 132/98 (109) 100 03/02/19 16:00 Endotracheal Tube 03/02/19 16:00 91 03/02/19 16:00 98.3 92 25 113/63 (80) 100 03/02/19 15:59 40 03/02/19 15:06 98 16 100 Mechanical Ventilator 40 03/02/19 15:00 95 15 114/58 (76) 100 03/02/19 14:57 98 24 100 Mechanical Ventilator 40 03/02/19 14:57 95 24 40 50 03/02/19 14:00 101 23 115/76 (89) 100 03/02/19 13:00 97 27 113/59 (77) 100 03/02/19 12:36 96 23 40 50 03/02/19 12:00 Endotracheal Tube 03/02/19 12:00 99 03/02/19 12:00 98.6 98 21 102/62 (75) 99 03/02/19 11:01 98 16 100 Mechanical Ventilator 40 03/02/19 11:00 101 12 106/59 (75) 100 03/02/19 10:51 99 22 100 Mechanical Ventilator 40 03/02/19 10:50 94 22 40 50 03/02/19 10:00 101 26 119/56 (77) 99 03/02/19 09:16 99 24 40 50 03/02/19 09:00 99 24 112/65 (81) 99 03/02/19 08:00 103 03/02/19 08:00 Endotracheal Tube 03/02/19 08:00 98.6 107 27 115/61 (79) 99 03/02/19 07:39 98 16 100 Mechanical Ventilator 40 03/02/19 07:31 98 25 100 Mechanical Ventilator 40 03/02/19 07:30 98 25 40 50 03/02/19 07:30 105 27 111/54 (73) 99 03/02/19 07:15 111 25 113/70 (84) 99 03/02/19 07:00 106 26 92/72 (79) 99 03/02/19 06:45 104 26 130/51 (77) 100 03/02/19 06:30 105 26 109/54 (72) 99 03/02/19 06:15 108 27 112/55 (74) 99 03/02/19 06:00 112/55 03/02/19 06:00 110 27 120/62 (81) 99 03/02/19 05:45 107 26 106/55 (72) 99 03/02/19 05:30 110 27 104/54 (71) 98 03/02/19 05:15 116 32 117/62 (80) 97 03/02/19 05:05 115 29 113/58 (76) 97 03/02/19 05:00 104/54 03/02/19 05:00 104/54 03/02/19 04:45 115 28 104/70 (81) 99 03/02/19 04:31 101 26 40 50 03/02/19 04:30 113 24 127/76 (93) 100 03/02/19 04:15 106 24 118/78 (91) 100 03/02/19 04:00 98.8 102 20 106/58 (74) 100 03/02/19 04:00 Endotracheal Tube 03/02/19 04:00 110 03/02/19 04:00 118/78 03/02/19 04:00 118/78 03/02/19 03:45 99 21 108/63 (78) 100 03/02/19 03:36 98 16 100 Mechanical Ventilator 40 03/02/19 03:30 96 17 100/60 (73) 100 03/02/19 03:26 96 25 100 Mechanical Ventilator 40 03/02/19 03:26 97 24 40 50 03/02/19 03:15 95 23 104/58 (73) 100 03/02/19 03:00 99 23 98/59 (72) 100 03/02/19 03:00 108/63 03/02/19 03:00 108/63 03/02/19 02:30 105 24 100 03/02/19 02:15 102 24 109/57 (74) 100 03/02/19 02:00 106 26 104/58 (73) 100 03/02/19 02:00 109/57 03/02/19 02:00 109/57 03/02/19 01:45 111 26 96/61 (73) 99 03/02/19 01:30 112 26 111/74 (86) 99 03/02/19 01:15 109 25 96/56 (69) 98 03/02/19 01:00 116 27 117/60 (79) 98 03/02/19 01:00 96/56 03/02/19 01:00 96/56 03/02/19 00:52 117 24 40 50 03/02/19 00:45 115 22 103/81 (88) 97 03/02/19 00:30 112 26 110/63 (79) 98 03/02/19 00:15 109 26 100/59 (73) 97 03/02/19 00:00 98.7 109 26 111/65 (80) 97 03/02/19 00:00 94 03/02/19 00:00 111/65 03/02/19 00:00 111/55 03/02/19 00:00 Endotracheal Tube 03/01/19 23:30 110 23 116/63 (80) 98 03/01/19 23:15 98 22 100 Mechanical Ventilator 40 03/01/19 23:00 116/63 03/01/19 23:00 116/63 03/01/19 23:00 94 03/01/19 23:00 94 16 105/61 (76) 100 03/01/19 22:58 95 25 100 Mechanical Ventilator 40 03/01/19 22:56 94 22 40 50 03/01/19 22:30 98 23 104/61 (75) 100 03/01/19 22:00 104/61 03/01/19 22:00 104/61 03/01/19 22:00 100 25 114/64 (81) 100 03/01/19 21:30 94 21 108/60 (76) 100 03/01/19 21:24 94 23 40 50 03/01/19 21:00 101/56 03/01/19 21:00 101/56 03/01/19 21:00 98 24 101/56 (71) 100 General Appearance: cachetic, on vent EENT: PERRL/EOMI, other - et tube Neck: no JVD, other - R Ej and L ij catheters Rhythm: ST Cardiovascular: regular rhythm, no gallop/murmur Respiratory/Chest: other - bilat rhonchi Abdomen: normal bowel sounds, non tender, other - + g tube Extremities: other - no edema. Bilat LE flexion contractures Intake and Output 03/01/19 03/02/19 19:00 07:00 Intake Total 561.805 ml 1709.311 ml Output Total 1380 ml 1540 ml Balance -818.195 ml 169.311 ml Intake IV Total 561.805 ml 1709.311 ml Output Urine Total 1380 ml 1540 ml # Bowel Movements 3 4 Laboratory Tests Test 03/02/19 05:10 White Blood Count 15.1 K/UL (4.8-10.8) #H Red Blood Count 3.67 M/UL (4.70-6.10) L Hemoglobin 9.0 G/DL (14.2-18.0) L Hematocrit 28.2 % (42.0-52.0) L Mean Corpuscular Volume 77 FL (80-99) L Mean Corpuscular Hemoglobin 24.6 PG (27.0-31.0) L Mean Corpuscular Hemoglobin Concent 32.0 G/DL (32.0-36.0) Red Cell Distribution Width 15.0 % (11.6-14.8) H Platelet Count 166 K/UL (150-450) Mean Platelet Volume 7.5 FL (6.5-10.1) Neutrophils (%) (Auto) % (45.0-75.0) Lymphocytes (%) (Auto) % (20.0-45.0) Monocytes (%) (Auto) % (1.0-10.0) Eosinophils (%) (Auto) % (0.0-3.0) Basophils (%) (Auto) % (0.0-2.0) Differential Total Cells Counted 100 Neutrophils % (Manual) 85 % (45-75) H Lymphocytes % (Manual) 6 % (20-45) L Monocytes % (Manual) 1 % (1-10) Eosinophils % (Manual) 0 % (0-3) Basophils % (Manual) 0 % (0-2) Band Neutrophils 8 % (0-8) Platelet Estimate Adequate Platelet Morphology Normal Anisocytosis 1+ Microcytosis 1+ Sodium Level 146 MMOL/L (136-145) H Potassium Level 2.5 MMOL/L (3.5-5.1) *L Chloride Level 113 MMOL/L (98-107) H Carbon Dioxide Level 21 MMOL/L (21-32) Anion Gap 11 mmol/L (5-15) Blood Urea Nitrogen 36 mg/dL (7-18) H Creatinine 1.0 MG/DL (0.55-1.30) # Estimat Glomerular Filtration Rate mL/min (>60) Glucose Level 96 MG/DL (74-106) Calcium Level 7.3 MG/DL (8.5-10.1) L Magnesium Level 2.7 MG/DL (1.8-2.4) H Random Vancomycin Level 4.3 ug/mL Microbiology Date/Time Source Procedure Growth Status 02/28/19 00:35 Blood Blood Culture - Preliminary Gram Negative Carlos Resulted 02/28/19 00:30 Blood Blood Culture - Preliminary Gram Negative Carlos Resulted 02/28/19 00:00 Wound Gram Stain - Final Complete 02/28/19 00:00 Wound Culture - Final Proteus Mirabilis Complete 02/28/19 13:06 Sputum Gram Stain - Final Resulted 02/28/19 13:06 Sputum Culture - Preliminary Usual Upper Respiratory Liana Resulted 02/28/19 05:50 Nasal Nares MRSA Culture - Final NO METHICILLIN RESISTANT STAPH AUREUS... Complete 02/28/19 00:35 Urine,Clean Catch Urine Culture - Final Proteus Mirabilis Complete 02/28/19 05:50 Rectum - Final NO CARBAPENEM-RESISTANT ENTEROBACTERI... 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
[2019-03-02] MEDS: Potassium Chloride 40 MEQ in 1/2 NS 1000ml 1,000 ML IV SCH (21:30)
--- NOTE | 2019-03-02 21:30 | NUR ---
NURSE NOTES: Repositioned. CHG bath given. Patient in bed no s/s of acute distress noted. Will continue plan of care.
--- NOTE | 2019-03-02 23:30 | NUR ---
NURSE NOTES: Repositioned. no s/s of acute distress noted. Anderson draining. will continue plan of care.
[2019-03-03] VITALS (27 sets, daily range): BP systolic 91–150; BP diastolic 46–119
[2019-03-03] MEDS: Albuterol/Ipratropium 3ml neb HHN SCH ×7 (01:27→22:47)
--- NOTE | 2019-03-03 01:30 | NUR ---
NURSE NOTES: Repositioned. No moaning no facial grimaces.no s/s of acute distress noted. Anderson draining. will continue plan of care.
--- NOTE | 2019-03-03 03:30 | NUR ---
NURSE NOTES: Repositioned. Bed bath given. Oral care done. comfort measure provided.Will continue plan of care.
--- NOTE | 2019-03-03 05:30 | NUR ---
NURSE NOTES: Pt turned and repositioned. Suctioned pt endotracheally. Will continue to monitor patient. contact isolation maintained and observed.
[2019-03-03 06:00] LABS: HEMATOCRIT 29.4 % (42.0-52.0); HEMOGLOBIN 9.4 G/DL (14.2-18.0); MEAN CORPUSCULAR VOLUME 78 FL (80-99); PLATELET COUNT 137 K/UL (150-450); RED BLOOD COUNT 3.77 M/UL (4.70-6.10); RED CELL DISTRIBUTION WIDTH 15.2 % (11.6-14.8); WHITE BLOOD COUNT 10.2 K/UL (4.8-10.8)
[2019-03-03 06:20] LABS: ANION GAP 10 mmol/L (5-15); BLOOD UREA NITROGEN 26 mg/dL (7-18); CALCIUM 7.4 MG/DL (8.5-10.1); CARBON DIOXIDE 21 MMOL/L (21-32); CHLORIDE 116 MMOL/L (98-107); CREATININE 0.8 MG/DL (0.55-1.30); POTASSIUM 3.6 MMOL/L (3.5-5.1); SODIUM 147 MMOL/L (136-145)
--- NOTE | 2019-03-03 06:30 | NUR ---
NURSE NOTES: Pt turned and repositioned. Oral care and Suctioned. Will continue to monitor.
--- NOTE | 2019-03-03 07:30 | NUR ---
HAND-OFF: Report given to Lewis GARCIA.
--- NOTE | 2019-03-03 08:07 | NUR ---
NURSE NOTES: Report received from JOSE Vargas. Pt is on bed, awake, non-verbal. Pt is still vent-dependent setting A/C 16, TV 450, FiO2 40%, PEEP 5. ETT tube 7.5 and 26cm at lips. G-Tube patent. Anderson catheter in place, draining with gravity. Multiple wounds reported and noted on pt on coccyx area, hip, and bilateral feet. R EJ IV on saline lock and L EJ TCL running KCL 40mEq 0.45% NS. Pt is on Contact Precaution started in previous shift. Will cont to monitor.
--- NOTE | 2019-03-03 08:20 | NUR ---
RESPIRATORY NOTE: Pt received on charted vent settings. No respiratory distress noted. ETT secured with anchor fast. Vent plugged into red outlet. Ambu bag @ bedside. Alarms set and audible. Will continue to monitor.
[2019-03-03] MEDS: Heparin 5000 units/ml inj SUBQ SCH ×3 (09:00→21:29)
[2019-03-03] MEDS: Pantoprazole Inj IVP SCH (09:06)
[2019-03-03] MEDS: Meropenem 1 GM in NS 55 ML IV SCH (09:07)
[2019-03-03] MEDS: DOPamine 400mg/250ml 250 ML IV SCH (09:10)
--- NOTE | 2019-03-03 09:22 | Critical Care Progress Note ---
Assessment/Plan Assessment/Plan Pneumonia Septic shock Acute and chronic respiratory failure with hypoxia Acute renal failure Anemia Dementia Schizophrenia Previous Hypertension H/o Atrial fibrillation COPD Previous aspiration pneumonia S/p feeding tube PLAN care noted start feeds IV antibiotics respiratory care Ventilatory support monitor RR SNF meds supportive care suction start wean as able stabilize further and reassess monitor imaging for change oxygen therapy prognosis guarded remains critical and requires ICU care medications/laboratory data/nursing notes/ICU care reviewed in detail note reviewed and edited care discussed with RN and RT ICU time spent 45 minutes Critical Care - Subjective Interval Events: more alert no distress on vent off feeds ROS Limited/Unobtainable: Yes Condition: critical EKG Rhythm: Sinus Rhythm I&O: Intake and Output 03/02/19 03/03/19 19:00 07:00 Intake Total 630.000 ml 762 ml Output Total 1050 ml 995 ml Balance -420.000 ml -233 ml Intake IV Total 630.000 ml 762 ml Output Urine Total 1050 ml 995 ml # Bowel Movements 3 Critical Care - Objective ET-Tube: 7.5 ET Position: 26 Last 24 Hour Vital Signs Date Time Temp Pulse Resp B/P (MAP) Pulse Ox O2 Delivery O2 Flow Rate FiO2 03/03/19 08:00 98.6 98 20 107/74 (85) 100 03/03/19 08:00 Endotracheal Tube 03/03/19 08:00 40 03/03/19 07:50 98 24 99 Mechanical Ventilator 40 03/03/19 07:45 125/65 03/03/19 07:41 97 24 100 Mechanical Ventilator 40 03/03/19 07:41 97 24 40 03/03/19 07:00 103 18 125/65 (85) 100 03/03/19 06:00 108 20 126/70 (88) 100 03/03/19 05:21 107 21 40 50 03/03/19 05:00 109 17 126/65 (85) 99 03/03/19 04:00 Endotracheal Tube 03/03/19 04:00 99 03/03/19 04:00 40 03/03/19 04:00 98.4 102 24 109/60 (76) 99 03/03/19 03:34 102 17 99 Mechanical Ventilator 40 03/03/19 03:30 103 16 112/66 (81) 100 03/03/19 03:19 101 24 99 Mechanical Ventilator 40 03/03/19 03:15 99 26 120/69 (86) 99 03/03/19 03:13 107 23 40 50 03/03/19 03:00 103 21 122/68 (86) 99 03/03/19 02:00 101 18 109/67 (81) 98 03/03/19 01:36 98 18 100 Mechanical Ventilator 40 03/03/19 01:28 97 25 98 Mechanical Ventilator 40 03/03/19 01:25 97 23 40 50 03/03/19 01:00 98 18 109/67 (81) 98 03/03/19 00:00 Endotracheal Tube 03/03/19 00:00 101 03/03/19 00:00 98.5 107 15 91/78 (82) 91 03/02/19 23:00 91 23 112/59 (76) 99 03/02/19 22:37 98 24 40 50 03/02/19 22:00 92 22 134/111 (119) 99 03/02/19 21:21 94 25 40 50 03/02/19 21:00 97 24 119/65 (83) 100 03/02/19 20:00 Endotracheal Tube 03/02/19 20:00 95 03/02/19 20:00 99.0 95 25 111/58 (75) 99 03/02/19 19:11 91 16 100 Mechanical Ventilator 40 03/02/19 19:04 92 24 40 50 03/02/19 19:03 92 25 98 Mechanical Ventilator 40 03/02/19 19:00 91 26 116/71 (86) 100 03/02/19 18:00 94 28 120/70 (87) 100 03/02/19 17:00 90 26 132/98 (109) 100 03/02/19 16:00 Endotracheal Tube 03/02/19 16:00 91 03/02/19 16:00 98.3 92 25 113/63 (80) 100 03/02/19 15:59 40 03/02/19 15:06 98 16 100 Mechanical Ventilator 40 03/02/19 15:00 95 15 114/58 (76) 100 03/02/19 14:57 98 24 100 Mechanical Ventilator 40 03/02/19 14:57 95 24 40 50 03/02/19 14:00 101 23 115/76 (89) 100 03/02/19 13:00 97 27 113/59 (77) 100 03/02/19 12:36 96 23 40 50 03/02/19 12:00 Endotracheal Tube 03/02/19 12:00 99 03/02/19 12:00 98.6 98 21 102/62 (75) 99 03/02/19 11:01 98 16 100 Mechanical Ventilator 40 03/02/19 11:00 101 12 106/59 (75) 100 03/02/19 10:51 99 22 100 Mechanical Ventilator 40 03/02/19 10:50 94 22 40 50 03/02/19 10:00 101 26 119/56 (77) 99 Labs: Labs Test 02/28/19 14:00 02/28/19 16:45 02/28/19 19:00 02/28/19 19:37 Troponin I 1.426 ng/mL (0.000-0.056) Arterial Blood pH 7.342 (7.350-7.450) 7.469 (7.350-7.450) Arterial Blood Partial Pressure CO2 30.0 mmHg (35.0-45.0) 23.1 mmHg (35.0-45.0) Arterial Blood Partial Pressure O2 139.6 mmHg (75.0-100.0) 80.0 mmHg (75.0-100.0) Arterial Blood HCO3 15.9 mmol/L (22.0-26.0) 16.4 mmol/L (22.0-26.0) Arterial Blood Oxygen Saturation 98.3 % (95-100) 96.0 % (95-100) Arterial Blood Base Excess -8.7 (-2-2) -5.8 (-2-2) Rhett Test Positive Positive Lactic Acid Level 3.20 mmol/L (0.4-2.0) Test 02/28/19 21:10 03/01/19 01:00 03/01/19 03:25 03/01/19 04:40 Lactic Acid Level 2.90 mmol/L (0.66-2.22) 1.80 mmol/L (0.4-2.0) White Blood Count 36.1 K/UL (4.8-10.8) Red Blood Count 3.82 M/UL (4.70-6.10) Hemoglobin 9.3 G/DL (14.2-18.0) Hematocrit 29.2 % (42.0-52.0) Mean Corpuscular Volume 76 FL (80-99) Mean Corpuscular Hemoglobin 24.4 PG (27.0-31.0) Mean Corpuscular Hemoglobin Concent 31.9 G/DL (32.0-36.0) Red Cell Distribution Width 15.1 % (11.6-14.8) Platelet Count 223 K/UL (150-450) Mean Platelet Volume 6.8 FL (6.5-10.1) Neutrophils (%) (Auto) % (45.0-75.0) Lymphocytes (%) (Auto) % (20.0-45.0) Monocytes (%) (Auto) % (1.0-10.0) Eosinophils (%) (Auto) % (0.0-3.0) Basophils (%) (Auto) % (0.0-2.0) Differential Total Cells Counted 100 Neutrophils % (Manual) 94 % (45-75) Lymphocytes % (Manual) 3 % (20-45) Monocytes % (Manual) 1 % (1-10) Eosinophils % (Manual) 0 % (0-3) Basophils % (Manual) 0 % (0-2) Band Neutrophils 2 % (0-8) Platelet Estimate Adequate Platelet Morphology Normal Hypochromasia 2+ Anisocytosis 1+ Microcytosis 1+ Sodium Level 140 MMOL/L (136-145) Potassium Level 3.4 MMOL/L (3.5-5.1) Chloride Level 108 MMOL/L (98-107) Carbon Dioxide Level 19 MMOL/L (21-32) Anion Gap 14 mmol/L (5-15) Blood Urea Nitrogen 72 mg/dL (7-18) Creatinine 2.1 MG/DL (0.55-1.30) Estimat Glomerular Filtration Rate mL/min (>60) Glucose Level 88 MG/DL (74-106) Calcium Level 7.0 MG/DL (8.5-10.1) Phosphorus Level 3.4 MG/DL (2.5-4.9) Magnesium Level 1.7 MG/DL (1.8-2.4) Test 03/01/19 06:50 03/01/19 08:54 03/02/19 05:10 03/03/19 05:25 Arterial Blood pH 7.460 (7.350-7.450) 7.490 (7.350-7.450) Arterial Blood Partial Pressure CO2 27.3 mmHg (35.0-45.0) 26.3 mmHg (35.0-45.0) Arterial Blood Partial Pressure O2 246.0 mmHg (75.0-100.0) 122.3 mmHg (75.0-100.0) Arterial Blood HCO3 19.4 mmol/L (22.0-26.0) 20.0 mmol/L (22.0-26.0) Arterial Blood Oxygen Saturation 99.1 % (95-100) 98.1 % (95-100) Arterial Blood Base Excess -3.3 (-2-2) -2.3 (-2-2) Rhett Test Positive Positive White Blood Count 15.1 K/UL (4.8-10.8) 10.2 K/UL (4.8-10.8) Red Blood Count 3.67 M/UL (4.70-6.10) 3.77 M/UL (4.70-6.10) Hemoglobin 9.0 G/DL (14.2-18.0) 9.4 G/DL (14.2-18.0) Hematocrit 28.2 % (42.0-52.0) 29.4 % (42.0-52.0) Mean Corpuscular Volume 77 FL (80-99) 78 FL (80-99) Mean Corpuscular Hemoglobin 24.6 PG (27.0-31.0) 25.0 PG (27.0-31.0) Mean Corpuscular Hemoglobin Concent 32.0 G/DL (32.0-36.0) 32.0 G/DL (32.0-36.0) Red Cell Distribution Width 15.0 % (11.6-14.8) 15.2 % (11.6-14.8) Platelet Count 166 K/UL (150-450) 137 K/UL (150-450) Mean Platelet Volume 7.5 FL (6.5-10.1) 7.3 FL (6.5-10.1) Neutrophils (%) (Auto) % (45.0-75.0) % (45.0-75.0) Lymphocytes (%) (Auto) % (20.0-45.0) % (20.0-45.0) Monocytes (%) (Auto) % (1.0-10.0) % (1.0-10.0) Eosinophils (%) (Auto) % (0.0-3.0) % (0.0-3.0) Basophils (%) (Auto) % (0.0-2.0) % (0.0-2.0) Differential Total Cells Counted 100 Neutrophils % (Manual) 85 % (45-75) Lymphocytes % (Manual) 6 % (20-45) Monocytes % (Manual) 1 % (1-10) Eosinophils % (Manual) 0 % (0-3) Basophils % (Manual) 0 % (0-2) Band Neutrophils 8 % (0-8) Platelet Estimate Adequate Platelet Morphology Normal Anisocytosis 1+ Microcytosis 1+ Sodium Level 146 MMOL/L (136-145) 147 MMOL/L (136-145) Potassium Level 2.5 MMOL/L (3.5-5.1) 3.6 MMOL/L (3.5-5.1) Chloride Level 113 MMOL/L (98-107) 116 MMOL/L (98-107) Carbon Dioxide Level 21 MMOL/L (21-32) 21 MMOL/L (21-32) Anion Gap 11 mmol/L (5-15) 10 mmol/L (5-15) Blood Urea Nitrogen 36 mg/dL (7-18) 26 mg/dL (7-18) Creatinine 1.0 MG/DL (0.55-1.30) 0.8 MG/DL (0.55-1.30) Estimat Glomerular Filtration Rate mL/min (>60) mL/min (>60) Glucose Level 96 MG/DL (74-106) 51 MG/DL (74-106) Calcium Level 7.3 MG/DL (8.5-10.1) 7.4 MG/DL (8.5-10.1) Magnesium Level 2.7 MG/DL (1.8-2.4) Random Vancomycin Level 4.3 ug/mL Objective: WDWN NAD chronically ill orally intubated reduced breath sounds bilaterally without rhonchi or wheeze [id number] without MRG NABS nontender no HSM no CCE nonfocal but poorly responsive reduced ROM- contractures skin noted reviewed and edited tubes noted Micro: Microbiology Date/Time Source Procedure Growth Status 02/28/19 13:06 Sputum Gram Stain - Final Complete 02/28/19 13:06 Sputum Culture - Final Usual Upper Respiratory Liana Complete Tim Andrade MD Mar 03, 2019 09:22
--- NOTE | 2019-03-03 09:27 | NUR ---
NURSE NOTES: Dr. Nunn at bedside, ordered tube feeding @ 40ml/hr. Order carried out. Will cont to monitor.
[2019-03-03] MEDS: Dakin's 0.125% Soln (Quarter Strength) 16oz TOPIC SCH (10:06)
[2019-03-03] MEDS: Vancomycin 750mg/NS 275ml IVPB SCH ×2 (10:06)
--- NOTE | 2019-03-03 11:34 | NUR ---
NURSE NOTES: OG tube inserted, lawn and garden technician called for KUB confirmation.
--- NOTE | 2019-03-03 11:55 | Infectious Diseases Prog Note ---
Assessment/Plan Assessment/Plan A: 1. Proteus sepsis 2. proteus UTI 3. leucocytosis resolved 4. shock, off pressors 5. respiratory failure 6. schizophrenia 7. renal failure improving 8. 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 continue iv vancomycin, 2. Change meropenem to Rocephin Subjective ROS Limited/Unobtainable: Yes Constitutional: Reports: no symptoms Allergies: Coded Allergies: No Known Allergies (Unverified , 02/25/19) Objective Vital Signs Last 24 Hour Vital Signs Date Time Temp Pulse Resp B/P (MAP) Pulse Ox O2 Delivery O2 Flow Rate FiO2 03/03/19 11:10 102 24 100 Mechanical Ventilator 40 03/03/19 11:04 100 24 100 Mechanical Ventilator 40 03/03/19 11:04 109 31 40 03/03/19 11:00 103 22 124/77 (93) 100 03/03/19 10:00 111 22 131/76 (94) 99 03/03/19 09:15 101 24 40 03/03/19 09:00 96 13 119/66 (83) 100 03/03/19 08:00 98.6 98 20 107/74 (85) 100 03/03/19 08:00 Endotracheal Tube 03/03/19 08:00 40 03/03/19 07:50 98 24 99 Mechanical Ventilator 40 03/03/19 07:45 125/65 03/03/19 07:41 97 24 100 Mechanical Ventilator 40 03/03/19 07:41 97 24 40 03/03/19 07:00 103 18 125/65 (85) 100 03/03/19 06:00 108 20 126/70 (88) 100 03/03/19 05:21 107 21 40 50 03/03/19 05:00 109 17 126/65 (85) 99 03/03/19 04:00 Endotracheal Tube 03/03/19 04:00 99 03/03/19 04:00 40 03/03/19 04:00 98.4 102 24 109/60 (76) 99 03/03/19 03:34 102 17 99 Mechanical Ventilator 40 03/03/19 03:30 103 16 112/66 (81) 100 03/03/19 03:19 101 24 99 Mechanical Ventilator 40 03/03/19 03:15 99 26 120/69 (86) 99 03/03/19 03:13 107 23 40 50 03/03/19 03:00 103 21 122/68 (86) 99 03/03/19 02:00 101 18 109/67 (81) 98 03/03/19 01:36 98 18 100 Mechanical Ventilator 40 03/03/19 01:28 97 25 98 Mechanical Ventilator 40 03/03/19 01:25 97 23 40 50 03/03/19 01:00 98 18 109/67 (81) 98 03/03/19 00:00 Endotracheal Tube 03/03/19 00:00 101 03/03/19 00:00 98.5 107 15 91/78 (82) 91 03/02/19 23:00 91 23 112/59 (76) 99 03/02/19 22:37 98 24 40 50 03/02/19 22:00 92 22 134/111 (119) 99 03/02/19 21:21 94 25 40 50 03/02/19 21:00 97 24 119/65 (83) 100 03/02/19 20:00 Endotracheal Tube 03/02/19 20:00 95 03/02/19 20:00 99.0 95 25 111/58 (75) 99 03/02/19 19:11 91 16 100 Mechanical Ventilator 40 03/02/19 19:04 92 24 40 50 03/02/19 19:03 92 25 98 Mechanical Ventilator 40 03/02/19 19:00 91 26 116/71 (86) 100 03/02/19 18:00 94 28 120/70 (87) 100 03/02/19 17:00 90 26 132/98 (109) 100 03/02/19 16:00 Endotracheal Tube 03/02/19 16:00 91 03/02/19 16:00 98.3 92 25 113/63 (80) 100 03/02/19 15:59 40 03/02/19 15:06 98 16 100 Mechanical Ventilator 40 03/02/19 15:00 95 15 114/58 (76) 100 03/02/19 14:57 98 24 100 Mechanical Ventilator 40 03/02/19 14:57 95 24 40 50 03/02/19 14:00 101 23 115/76 (89) 100 03/02/19 13:00 97 27 113/59 (77) 100 03/02/19 12:36 96 23 40 50 03/02/19 12:00 Endotracheal Tube 03/02/19 12:00 99 03/02/19 12:00 98.6 98 21 102/62 (75) 99 Height (Feet): 5 Height (Inches): 4.00 Weight (Pounds): 117 General Appearance: no acute distress HEENT: other - orally intubated Respiratory/Chest: lungs clear Cardiovascular: tachycardia Abdomen: soft, non tender, other - orogastric tube Skin: ulcers, other - necrotic in left foot, contracted legs Neurologic/Psychiatric: other - opens eyes Musculoskeletal: atrophy Microbiology Date/Time Source Procedure Growth Status 02/28/19 13:06 Sputum Gram Stain - Final Complete 02/28/19 13:06 Sputum Culture - Final Usual Upper Respiratory Liana Complete Laboratory Tests Test 03/03/19 05:25 White Blood Count 10.2 K/UL (4.8-10.8) Red Blood Count 3.77 M/UL (4.70-6.10) L Hemoglobin 9.4 G/DL (14.2-18.0) L Hematocrit 29.4 % (42.0-52.0) L Mean Corpuscular Volume 78 FL (80-99) L Mean Corpuscular Hemoglobin 25.0 PG (27.0-31.0) L Mean Corpuscular Hemoglobin Concent 32.0 G/DL (32.0-36.0) Red Cell Distribution Width 15.2 % (11.6-14.8) H Platelet Count 137 K/UL (150-450) L Mean Platelet Volume 7.3 FL (6.5-10.1) Neutrophils (%) (Auto) % (45.0-75.0) Lymphocytes (%) (Auto) % (20.0-45.0) Monocytes (%) (Auto) % (1.0-10.0) Eosinophils (%) (Auto) % (0.0-3.0) Basophils (%) (Auto) % (0.0-2.0) Sodium Level 147 MMOL/L (136-145) H Potassium Level 3.6 MMOL/L (3.5-5.1) Chloride Level 116 MMOL/L (98-107) H Carbon Dioxide Level 21 MMOL/L (21-32) Anion Gap 10 mmol/L (5-15) Blood Urea Nitrogen 26 mg/dL (7-18) H Creatinine 0.8 MG/DL (0.55-1.30) Estimat Glomerular Filtration Rate mL/min (>60) Glucose Level 51 MG/DL (74-106) L Calcium Level 7.4 MG/DL (8.5-10.1) L Current Medications Medications (Trade) Dose Ordered Sig/Mckenzie Route PRN Reason Start Time Stop Time Status Last Admin Dose Admin Albuterol/ Ipratropium (Albuterol/ Ipratropium) 3 ml Q4HRT HHN 02/28/19 11:00 03/05/19 10:59 03/03/19 11:06 Chlorhexidine Gluconate (Liz-Hex 2%) 1 applic DAILY@2000 TOPIC 03/01/19 20:00 03/31/19 19:59 03/02/19 20:03 Dopamine HCl/ Dextrose 250 ml @ 0 mls/hr Q24H IV 02/28/19 09:45 03/30/19 09:44 03/01/19 19:49 Heparin Sodium (Porcine) (Heparin 5000 units/ml) 5,000 units EVERY 12 HOURS SUBQ 02/28/19 21:00 03/30/19 20:59 03/03/19 09:14 Meropenem 1 gm/ Sodium Chloride 55 ml @ 110 mls/hr Q12HR IV 03/02/19 21:00 03/07/19 20:59 03/03/19 09:07 Norepinephrine Bitartrate 4 mg/ Dextrose 250 ml @ 0 mls/hr Q24H IV 02/28/19 07:45 03/30/19 07:44 03/01/19 15:55 Pantoprazole (Protonix) 40 mg DAILY IVP 03/01/19 09:00 03/31/19 08:59 03/03/19 09:06 Potassium Chloride 40 meq/ Sodium Chloride 1,020 ml @ 75 mls/hr [id number] IV 03/02/19 21:30 04/01/19 21:29 03/02/19 21:30 Sodium Hypochlorite (Dakin's Quarter Strength) 1 applic DAILY TOPIC 03/01/19 13:00 03/31/19 12:59 03/03/19 10:06 Vancomycin HCl (Vanco rx to dose) 1 ea DAILY PRN MISC Per rx protocol 02/28/19 07:45 03/30/19 07:44 Vancomycin HCl 750 mg/Sodium Chloride 275 ml @ 183.333 mls/hr Q24H IVPB 03/02/19 10:00 03/07/19 09:59 03/03/19 10:06 Lev Pardo MD Mar 03, 2019 11:55
[2019-03-03] MEDS: Potassium Chloride 40 MEQ in 1/2 NS 1000ml 1,000 ML IV SCH (11:56)
[2019-03-03] MEDS ORDERED: cefTRIAXone 2 GM in D5W 55 ML IVPB ONE (12:00)
--- NOTE | 2019-03-03 12:14 | General Progress Note ---
Assessment/Plan Problem List: (1) Hypokalemia ICD Codes: E87.6 - Hypokalemia SNOMED: 97252678 (2) Proteus septicemia ICD Codes: A41.59 - Other Gram-negative sepsis SNOMED: 867201013 (3) Pyelonephritis ICD Codes: N12 - Tubulo-interstitial nephritis, not specified as acute or chronic SNOMED: 71233491 (4) Septic shock ICD Codes: A41.9 - Sepsis, unspecified organism; R65.21 - Severe sepsis with septic shock SNOMED: 28561056, 779162149 (5) ARF (acute renal failure) ICD Codes: N17.9 - Acute kidney failure, unspecified SNOMED: 57471057, 771917373 Qualifiers: Qualified Codes: N17.9 - Acute kidney failure, unspecified (6) Acute and chronic respiratory failure with hypoxia ICD Codes: J96.21 - Acute and chronic respiratory failure with hypoxia SNOMED: 25378914, 025096009 (7) Anemia ICD Codes: D64.9 - Anemia, unspecified SNOMED: 075667825 Qualifiers: Qualified Codes: D64.9 - Anemia, unspecified (8) Alzheimer disease ICD Codes: G30.9 - Alzheimer's disease, unspecified; F02.80 - Dementia in other diseases classified elsewhere without behavioral disturbance SNOMED: 32882150 (9) Decubitus ulcer of trochanteric region of left hip ICD Codes: L89.229 - Pressure ulcer of left hip, unspecified stage SNOMED: 741440922 Assessment/Plan vent care, antibiotics kcl, decub care Subjective ROS Limited/Unobtainable: Yes Allergies: Coded Allergies: No Known Allergies (Unverified , 02/25/19) Objective Last 24 Hour Vital Signs Date Time Temp Pulse Resp B/P (MAP) Pulse Ox O2 Delivery O2 Flow Rate FiO2 03/03/19 11:10 102 24 100 Mechanical Ventilator 40 03/03/19 11:04 100 24 100 Mechanical Ventilator 40 03/03/19 11:04 109 31 40 03/03/19 11:00 103 22 124/77 (93) 100 03/03/19 10:00 111 22 131/76 (94) 99 03/03/19 09:15 101 24 40 03/03/19 09:00 96 13 119/66 (83) 100 03/03/19 08:00 98.6 98 20 107/74 (85) 100 03/03/19 08:00 Endotracheal Tube 03/03/19 08:00 40 03/03/19 07:50 98 24 99 Mechanical Ventilator 40 03/03/19 07:45 125/65 03/03/19 07:41 97 24 100 Mechanical Ventilator 40 03/03/19 07:41 97 24 40 03/03/19 07:00 103 18 125/65 (85) 100 03/03/19 06:00 108 20 126/70 (88) 100 03/03/19 05:21 107 21 40 50 03/03/19 05:00 109 17 126/65 (85) 99 03/03/19 04:00 Endotracheal Tube 03/03/19 04:00 99 03/03/19 04:00 40 03/03/19 04:00 98.4 102 24 109/60 (76) 99 03/03/19 03:34 102 17 99 Mechanical Ventilator 40 03/03/19 03:30 103 16 112/66 (81) 100 03/03/19 03:19 101 24 99 Mechanical Ventilator 40 03/03/19 03:15 99 26 120/69 (86) 99 03/03/19 03:13 107 23 40 50 03/03/19 03:00 103 21 122/68 (86) 99 03/03/19 02:00 101 18 109/67 (81) 98 03/03/19 01:36 98 18 100 Mechanical Ventilator 40 03/03/19 01:28 97 25 98 Mechanical Ventilator 40 03/03/19 01:25 97 23 40 50 03/03/19 01:00 98 18 109/67 (81) 98 03/03/19 00:00 Endotracheal Tube 03/03/19 00:00 101 03/03/19 00:00 98.5 107 15 91/78 (82) 91 03/02/19 23:00 91 23 112/59 (76) 99 03/02/19 22:37 98 24 40 50 03/02/19 22:00 92 22 134/111 (119) 99 03/02/19 21:21 94 25 40 50 03/02/19 21:00 97 24 119/65 (83) 100 03/02/19 20:00 Endotracheal Tube 03/02/19 20:00 95 03/02/19 20:00 99.0 95 25 111/58 (75) 99 03/02/19 19:11 91 16 100 Mechanical Ventilator 40 03/02/19 19:04 92 24 40 50 03/02/19 19:03 92 25 98 Mechanical Ventilator 40 03/02/19 19:00 91 26 116/71 (86) 100 03/02/19 18:00 94 28 120/70 (87) 100 03/02/19 17:00 90 26 132/98 (109) 100 03/02/19 16:00 Endotracheal Tube 03/02/19 16:00 91 03/02/19 16:00 98.3 92 25 113/63 (80) 100 03/02/19 15:59 40 03/02/19 15:06 98 16 100 Mechanical Ventilator 40 03/02/19 15:00 95 15 114/58 (76) 100 03/02/19 14:57 98 24 100 Mechanical Ventilator 40 03/02/19 14:57 95 24 40 50 03/02/19 14:00 101 23 115/76 (89) 100 03/02/19 13:00 97 27 113/59 (77) 100 03/02/19 12:36 96 23 40 50 Intake and Output 03/02/19 03/03/19 18:59 06:59 Intake Total 698.300 ml 687 ml Output Total 1050 ml 1045 ml Balance -351.700 ml -358 ml Intake IV Total 698.300 ml 687 ml Output Urine Total 1050 ml 1045 ml # Bowel Movements 3 Laboratory Tests 03/03/19 05:25: White Blood Count 10.2, Red Blood Count 3.77L, Hemoglobin 9.4L, Hematocrit 29.4L , Mean Corpuscular Volume 78L, Mean Corpuscular Hemoglobin 25.0L, Mean Corpuscular Hemoglobin Concent 32.0, Red Cell Distribution Width 15.2H, Platelet Count 137L, Mean Platelet Volume 7.3, Neutrophils (%) (Auto) , Lymphocytes (%) (Auto) , Monocytes (%) (Auto) , Eosinophils (%) (Auto) , Basophils (%) (Auto) , Sodium Level 147H, Potassium Level 3.6, Chloride Level 116H, Carbon Dioxide Level 21, Anion Gap 10, Blood Urea Nitrogen 26H, Creatinine 0.8, Estimat Glomerular Filtration Rate , Glucose Level 51L, Calcium Level 7.4L Height (Feet): 5 Height (Inches): 4.00 Weight (Pounds): 117 General Appearance: confused EENT: other Neck: normal alignment Cardiovascular: normal rate, regular rhythm Respiratory/Chest: rhonchi - bilaterally Abdomen: non tender, soft Extremities: other - contracted Neurologic: disoriented Thiago Garcia MD Mar 03, 2019 12:14
--- NOTE | 2019-03-03 13:00 | NUR ---
NURSE NOTES: Vent setting changed to CPAP 5, Pressure Support 8, PEEP 5 by RT at bedside. Pt tolerates well at this time.
--- NOTE | 2019-03-03 13:04 | Diagnostic Imaging Report ---
INDICATION: Nasogastric tube placement COMPARISON: Radiograph dated 02/25/19 FINDINGS: Single frontal view of the abdomen demonstrates a a nasogastric tube in the gastric cavity. A gastrostomy tube is seen. IMPRESSION: Nasogastric tube in gastric cavity. Stable gastrostomy tube.
--- NOTE | 2019-03-03 13:39 | NUR ---
NURSE NOTES: OG tube advanced 12cm per Radiology report, pt tolerated well.
[2019-03-03] MEDS: cefTRIAXone 2gm/D5W 110ml IVPB SCH ×2 (13:45)
--- NOTE | 2019-03-03 15:17 | NUR ---
NURSE NOTES: Pt sleeping in bed comfortably, no sign of acute distress. IV lines intact, medications running with no difficulty. Anderson draining with gravity. Will cont to monitor.
--- NOTE | 2019-03-03 15:51 | Cardiology Progress Note ---
Assessment/Plan Problem List: (1) Sinus tachycardia Assessment & Plan: resolving. felt due to sepsis/ metabolic factors and meds ( dopamine) (2) Septic shock (3) ARF (acute renal failure) (4) Healthcare-associated pneumonia (5) Acute and chronic respiratory failure with hypoxia (6) Hypokalemia Assessment & Plan: supplemented Status: stable, progressing Assessment/Plan Pt currently off pressors. Sinus rates have decreased and overall appears improving. Mild troponin elevation without wma on ECHO - c/w demand ischemia. EKG w SR w low voltage QRS and PRWP anteriorly. Medical therapy for CAD when more hemodynamically stable and bp improved. Continue vent support - wean as tolerated, per pulmonary. Continue iv abx, g tube feeds per primary team Subjective ROS Limited/Unobtainable: Yes Subjective Cardiology for Dr. Doty Pt intubated, alert Objective Last 24 Hour Vital Signs Date Time Temp Pulse Resp B/P (MAP) Pulse Ox O2 Delivery O2 Flow Rate FiO2 03/03/19 15:23 90 24 100 Mechanical Ventilator 40 03/03/19 15:20 100 18 100 Mechanical Ventilator 40 03/03/19 15:20 91 17 40 03/03/19 15:00 98.5 89 17 134/68 (90) 100 03/03/19 14:00 94 16 124/63 (83) 91 03/03/19 14:00 95 16 124/63 (83) 96 03/03/19 13:30 98 19 100 03/03/19 13:01 95 20 40 03/03/19 13:00 97 16 111/92 (98) 100 03/03/19 13:00 97 16 111/92 (98) 100 03/03/19 12:59 100 03/03/19 12:30 94 17 100 03/03/19 12:00 40 03/03/19 12:00 Endotracheal Tube 03/03/19 12:00 101 6 111/62 (78) 100 03/03/19 12:00 95 03/03/19 11:10 102 24 100 Mechanical Ventilator 40 03/03/19 11:04 100 24 100 Mechanical Ventilator 40 03/03/19 11:04 109 31 40 03/03/19 11:00 103 22 124/77 (93) 100 03/03/19 10:00 111 22 131/76 (94) 99 03/03/19 09:15 101 24 40 03/03/19 09:00 96 13 119/66 (83) 100 03/03/19 08:00 98.6 98 20 107/74 (85) 100 03/03/19 08:00 94 03/03/19 08:00 Endotracheal Tube 03/03/19 08:00 40 03/03/19 07:50 98 24 99 Mechanical Ventilator 40 03/03/19 07:45 125/65 03/03/19 07:41 97 24 100 Mechanical Ventilator 40 03/03/19 07:41 97 24 40 03/03/19 07:00 103 18 125/65 (85) 100 03/03/19 06:00 108 20 126/70 (88) 100 03/03/19 05:21 107 21 40 50 03/03/19 05:00 109 17 126/65 (85) 99 03/03/19 04:00 Endotracheal Tube 03/03/19 04:00 99 03/03/19 04:00 40 03/03/19 04:00 98.4 102 24 109/60 (76) 99 03/03/19 03:34 102 17 99 Mechanical Ventilator 40 03/03/19 03:30 103 16 112/66 (81) 100 03/03/19 03:19 101 24 99 Mechanical Ventilator 40 03/03/19 03:15 99 26 120/69 (86) 99 03/03/19 03:13 107 23 40 50 03/03/19 03:00 103 21 122/68 (86) 99 03/03/19 02:00 101 18 109/67 (81) 98 03/03/19 01:36 98 18 100 Mechanical Ventilator 40 03/03/19 01:28 97 25 98 Mechanical Ventilator 40 03/03/19 01:25 97 23 40 50 03/03/19 01:00 98 18 109/67 (81) 98 03/03/19 00:00 Endotracheal Tube 03/03/19 00:00 101 03/03/19 00:00 98.5 107 15 91/78 (82) 91 03/02/19 23:00 91 23 112/59 (76) 99 03/02/19 22:37 98 24 40 50 03/02/19 22:00 92 22 134/111 (119) 99 03/02/19 21:21 94 25 40 50 03/02/19 21:00 97 24 119/65 (83) 100 03/02/19 20:00 Endotracheal Tube 03/02/19 20:00 95 03/02/19 20:00 99.0 95 25 111/58 (75) 99 03/02/19 19:11 91 16 100 Mechanical Ventilator 40 03/02/19 19:04 92 24 40 50 03/02/19 19:03 92 25 98 Mechanical Ventilator 40 03/02/19 19:00 91 26 116/71 (86) 100 03/02/19 18:00 94 28 120/70 (87) 100 03/02/19 17:00 90 26 132/98 (109) 100 03/02/19 16:00 Endotracheal Tube 03/02/19 16:00 91 03/02/19 16:00 98.3 92 25 113/63 (80) 100 03/02/19 15:59 40 General Appearance: on vent EENT: PERRL/EOMI, other - et tube Neck: other - R EJ and L IJ catheters Rhythm: NSR Cardiovascular: normal rate, no gallop/murmur Respiratory/Chest: other - dec bs at bases Abdomen: non tender, soft, other - + g tube Extremities: no swelling, other - bilat LE contractures Intake and Output 03/02/19 03/03/19 18:59 06:59 Intake Total 698.300 ml 687 ml Output Total 1050 ml 1045 ml Balance -351.700 ml -358 ml Intake IV Total 698.300 ml 687 ml Output Urine Total 1050 ml 1045 ml # Bowel Movements 3 Laboratory Tests Test 03/03/19 05:25 White Blood Count 10.2 K/UL (4.8-10.8) Red Blood Count 3.77 M/UL (4.70-6.10) L Hemoglobin 9.4 G/DL (14.2-18.0) L Hematocrit 29.4 % (42.0-52.0) L Mean Corpuscular Volume 78 FL (80-99) L Mean Corpuscular Hemoglobin 25.0 PG (27.0-31.0) L Mean Corpuscular Hemoglobin Concent 32.0 G/DL (32.0-36.0) Red Cell Distribution Width 15.2 % (11.6-14.8) H Platelet Count 137 K/UL (150-450) L Mean Platelet Volume 7.3 FL (6.5-10.1) Neutrophils (%) (Auto) % (45.0-75.0) Lymphocytes (%) (Auto) % (20.0-45.0) Monocytes (%) (Auto) % (1.0-10.0) Eosinophils (%) (Auto) % (0.0-3.0) Basophils (%) (Auto) % (0.0-2.0) Sodium Level 147 MMOL/L (136-145) H Potassium Level 3.6 MMOL/L (3.5-5.1) Chloride Level 116 MMOL/L (98-107) H Carbon Dioxide Level 21 MMOL/L (21-32) Anion Gap 10 mmol/L (5-15) Blood Urea Nitrogen 26 mg/dL (7-18) H Creatinine 0.8 MG/DL (0.55-1.30) Estimat Glomerular Filtration Rate mL/min (>60) Glucose Level 51 MG/DL (74-106) L Calcium Level 7.4 MG/DL (8.5-10.1) Elaina Jim MD Mar 03, 2019 15:50
--- NOTE | 2019-03-03 16:28 | NUR ---
NURSE NOTES: Oral care performed, bed bath given. Pt tolerated well with procedures.
--- NOTE | 2019-03-03 18:17 | NUR ---
NURSE NOTES: Pt sleeping comfortably, all brakes engaged. No sign of acute distress.
--- NOTE | 2019-03-03 18:21 | Surgery Progress Note ---
Surgery Progress Note Subjective Procedure Performed endotracheal tube intubation Additional Comments leukocytosis resolved. labs improved. otherwise still in ICU ill appearing Objective Last 24 Hour Vital Signs Date Time Temp Pulse Resp B/P (MAP) Pulse Ox O2 Delivery O2 Flow Rate FiO2 03/03/19 18:00 98.0 92 20 131/77 (95) 100 03/03/19 17:19 98 21 40 03/03/19 17:00 98.0 95 19 150/46 (80) 100 03/03/19 16:00 Endotracheal Tube 03/03/19 16:00 40 03/03/19 16:00 98.0 93 20 127/76 (93) 100 03/03/19 15:59 93 03/03/19 15:23 90 24 100 Mechanical Ventilator 40 03/03/19 15:20 100 18 100 Mechanical Ventilator 40 03/03/19 15:20 91 17 40 03/03/19 15:00 98.5 89 17 134/68 (90) 100 03/03/19 14:00 94 16 124/63 (83) 91 03/03/19 14:00 95 16 124/63 (83) 96 03/03/19 13:30 98 19 100 03/03/19 13:01 95 20 40 03/03/19 13:00 97 16 111/92 (98) 100 03/03/19 13:00 97 16 111/92 (98) 100 03/03/19 12:59 100 03/03/19 12:30 94 17 100 03/03/19 12:00 40 03/03/19 12:00 Endotracheal Tube 03/03/19 12:00 101 6 111/62 (78) 100 03/03/19 12:00 95 03/03/19 11:10 102 24 100 Mechanical Ventilator 40 03/03/19 11:04 100 24 100 Mechanical Ventilator 40 03/03/19 11:04 109 31 40 03/03/19 11:00 103 22 124/77 (93) 100 03/03/19 10:00 111 22 131/76 (94) 99 03/03/19 09:15 101 24 40 03/03/19 09:00 96 13 119/66 (83) 100 03/03/19 08:00 98.6 98 20 107/74 (85) 100 03/03/19 08:00 94 03/03/19 08:00 Endotracheal Tube 03/03/19 08:00 40 03/03/19 07:50 98 24 99 Mechanical Ventilator 40 03/03/19 07:45 125/65 03/03/19 07:41 97 24 100 Mechanical Ventilator 40 03/03/19 07:41 97 24 40 03/03/19 07:00 103 18 125/65 (85) 100 03/03/19 06:00 108 20 126/70 (88) 100 03/03/19 05:21 107 21 40 50 03/03/19 05:00 109 17 126/65 (85) 99 03/03/19 04:00 Endotracheal Tube 03/03/19 04:00 99 03/03/19 04:00 40 03/03/19 04:00 98.4 102 24 109/60 (76) 99 03/03/19 03:34 102 17 99 Mechanical Ventilator 40 03/03/19 03:30 103 16 112/66 (81) 100 03/03/19 03:19 101 24 99 Mechanical Ventilator 40 03/03/19 03:15 99 26 120/69 (86) 99 03/03/19 03:13 107 23 40 50 03/03/19 03:00 103 21 122/68 (86) 99 03/03/19 02:00 101 18 109/67 (81) 98 03/03/19 01:36 98 18 100 Mechanical Ventilator 40 03/03/19 01:28 97 25 98 Mechanical Ventilator 40 03/03/19 01:25 97 23 40 50 03/03/19 01:00 98 18 109/67 (81) 98 03/03/19 00:00 Endotracheal Tube 03/03/19 00:00 101 03/03/19 00:00 98.5 107 15 91/78 (82) 91 03/02/19 23:00 91 23 112/59 (76) 99 03/02/19 22:37 98 24 40 50 03/02/19 22:00 92 22 134/111 (119) 99 03/02/19 21:21 94 25 40 50 03/02/19 21:00 97 24 119/65 (83) 100 03/02/19 20:00 Endotracheal Tube 03/02/19 20:00 95 03/02/19 20:00 99.0 95 25 111/58 (75) 99 03/02/19 19:11 91 16 100 Mechanical Ventilator 40 03/02/19 19:04 92 24 40 50 03/02/19 19:03 92 25 98 Mechanical Ventilator 40 03/02/19 19:00 91 26 116/71 (86) 100 I&O Intake and Output 03/02/19 03/03/19 18:59 06:59 Intake Total 698.300 ml 687 ml Output Total 1050 ml 1045 ml Balance -351.700 ml -358 ml Intake IV Total 698.300 ml 687 ml Output Urine Total 1050 ml 1045 ml # Bowel Movements 3 Dressing: saturated Wound: other Drains: other Cardiovascular: RSR Respiratory: decreased breath sounds Abdomen: soft, non-distended, decreased bowel sounds Extremities: no cyanosis Laboratory Tests Test 03/03/19 05:25 White Blood Count 10.2 K/UL (4.8-10.8) Red Blood Count 3.77 M/UL (4.70-6.10) L Hemoglobin 9.4 G/DL (14.2-18.0) L Hematocrit 29.4 % (42.0-52.0) L Mean Corpuscular Volume 78 FL (80-99) L Mean Corpuscular Hemoglobin 25.0 PG (27.0-31.0) L Mean Corpuscular Hemoglobin Concent 32.0 G/DL (32.0-36.0) Red Cell Distribution Width 15.2 % (11.6-14.8) H Platelet Count 137 K/UL (150-450) L Mean Platelet Volume 7.3 FL (6.5-10.1) Neutrophils (%) (Auto) % (45.0-75.0) Lymphocytes (%) (Auto) % (20.0-45.0) Monocytes (%) (Auto) % (1.0-10.0) Eosinophils (%) (Auto) % (0.0-3.0) Basophils (%) (Auto) % (0.0-2.0) Sodium Level 147 MMOL/L (136-145) H Potassium Level 3.6 MMOL/L (3.5-5.1) Chloride Level 116 MMOL/L (98-107) H Carbon Dioxide Level 21 MMOL/L (21-32) Anion Gap 10 mmol/L (5-15) Blood Urea Nitrogen 26 mg/dL (7-18) H Creatinine 0.8 MG/DL (0.55-1.30) Estimat Glomerular Filtration Rate mL/min (>60) Glucose Level 51 MG/DL (74-106) L Calcium Level 7.4 MG/DL (8.5-10.1) L Plan Problems: (1) Ulcer of lower extremity excluding decubitus ulcer Assessment & Plan: Pt presented on admission with contractures both lower ext with multiple necrotic wounds L trochanter,R tibia, and L foot. Lateral L foot (L)3.5cm x (W)11cm.90%Soft necrosis with surrounding slough along borders.Wound is malodorous. Small amt brown exudate noted.Greyish colour periwound. L Lateral metatarsal to L hallux (L)4.3cm x (W)6.9cm . Base of wound necrotic with area of fluctuance at lateral aspect L1st metatarsal.Wound is malodorous with small amt brownish exudate Greyish colour periwound. Lateral L heel (L)3cm x (W)6.6cm.100%Unstable necrosis base of wound with surrounding mixed soft slough with erythema.Wound is malodorous. Wound is malodorous with small amt brownish exudate. Plantar L foot (L)2.5cm x (W)1.5cm Unstable necrosis with indurated borders. No exudate noted. All 5 metatarsals are burgess in color. Full thickness pressure injury R tibia(L)6.5cm x (W)1cm. elongated wound with indurated red borders,10% necrosis at proximal end with #2 areas of slough- approx 10% with erythema that is dry remaining base of wound .No odor noted. Non-blanchable erythema with scattered purple areas medial L tibia(L)5.7cm x (W) 4.5cm.Site without fluctuance or induration .No elevation in skin temp. Dorsal R 2nd metatarsal head maroon with fluctuance.(L)0.8cm x (W)1.3cm. R heel boggy with non-blanchable erythema. Pressure injury to L trochanter 90% necrotic,dry with pink epithelialized borders. Dark skin tone without erythema or induration periwound .In close proximity is an area with pink epithelial tissue with a linear area in center that is brown but dry and adherent to base. Resolving pressure injury to sacrum.95% epithelial at base of wound .Small area at coccyx measuring(L)0.4cm x (W)0.3cm with yellow slough.No exudate noted. Areas of hyperpigmentation scarring noted to R and L ischial areas. Tx.Plan: Cleanse L trochanter with Saline. Apply Dakins 1/4% soaked gauze to L trochanter.Apply Cavilon Skin Barrier periwound. Cover with Optifoam drsg. Change daily and PRN. Cleanse R tibia with Saline.Apply Dakins 1/4% soaked gauze. Cavilon Skin Barrier periwound.Cover with Optifoam drsg. Change Daily and prn. Apply Cavilon Skin Barrier to L medial /idalia L tibia .Cover with Optifoam drsg. Change every 7 days and prn. Apply Cavilon Skin Barrier to R heel. Cover with Optifoam drsg.Change every 7 days and PRN. Cleanse coccygeal wound with saline. Apply Therahoney.Apply Triad Paste periwound to sacrum. Cover with Optifoam drsg. Change Daily and prn. APM/KAVON Mattress overlay. Reposition at least every 2hours or as tolerated. Place Pillow between knees . Off-load heels with pillow. (2) Septic shock Assessment & Plan: Intubated for airway protection in ICU see note for details cont with vent CXR ABG with trend and wean vent settings trend labs wean pressors fluids aguilera will monitor prognosis guarded (3) Asymptomatic bacteriuria (4) ARF (acute renal failure) (5) Healthcare-associated pneumonia (6) Acute and chronic respiratory failure with hypoxia (7) Anemia (8) Alzheimer disease (9) Dysphagia (10) Sepsis (11) Pneumonia (12) Gastroparesis (13) Severe sepsis (14) Encounter for PEG (percutaneous endoscopic gastrostomy) (15) Decubitus ulcer of trochanteric region of left hip Rios Quiñones Mar 03, 2019 18:21
--- NOTE | 2019-03-03 20:30 | NUR ---
NURSE NOTES: Received patient from JOSE Rob. Pt is non verbal. ETT 7.5/26cm lip line, AC 16, TV 450 Fi02 40% Peep of 5. Anderson draining with yellow urine. Pt is contracted with multiple wounds, on P200 mattress for wound management. Left IJ TLC and Right EJ intact running KCL 30 mEq in 0.45% NS at 75cc/hr. Safety measures in place. Bed in low position, alarm on. Contact isolation maintained and observed. will continue to monitor plan of care.
[2019-03-03] MEDS: Dyna-Hex 2% Top Sol 2oz TOPIC SCH (21:28)
[2019-03-04] VITALS (24 sets, daily range): BP systolic 112–144; BP diastolic 55–81
[2019-03-04] MEDS: Potassium Chloride 40 MEQ in 1/2 NS 1000ml 1,000 ML IV SCH ×2 (01:39→14:18)
[2019-03-04] MEDS: Albuterol/Ipratropium 3ml neb HHN SCH ×6 (03:27→23:36)
[2019-03-04 05:42] LABS: HEMATOCRIT 29.7 % (42.0-52.0); HEMOGLOBIN 9.3 G/DL (14.2-18.0); MEAN CORPUSCULAR VOLUME 79 FL (80-99); PLATELET COUNT 139 K/UL (150-450); RED BLOOD COUNT 3.74 M/UL (4.70-6.10); RED CELL DISTRIBUTION WIDTH 15.8 % (11.6-14.8); WHITE BLOOD COUNT 9.7 K/UL (4.8-10.8)
--- NOTE | 2019-03-04 07:31 | NUR ---
RESPIRATORY NOTE: received pt on current vent settings, intubated with ETT 7.5, placed 26cm at the lip, secure via anchor fast. no redness or skin tears visible around facial area. pt is in no resp distress at this time. small amount of clear/white sections upon sxn. vent is plugged into red outlet with alarms set and audible will follow orders to wean later this morning. will cont to monitor.
--- NOTE | 2019-03-04 07:33 | NUR ---
HAND-OFF: Report given to JOSE Peters. Pt. stable at hand-off. Will con to monitor.
--- NOTE | 2019-03-04 07:34 | NUR ---
NURSE NOTES: Received report from Josi GARCIA. Pt is asleep, awakens to touch, laying in semi-steward's position. Pt is intubated, ETT 7.5, at 26cm right lipline, AC 16 FIO2 40%, Peep 5.0, TV450, with O2sat at 98-100%. clinical research monitor displays NSR, with HR 90's. OG tube in place, infusing feeding Vital AF 1.2 at 40ml/hour (pt business intelligence administrator report, residual during business intelligence administrator was 20). Pt is tolerating feeding well with no episode or s/s of N/V and residual of 0. Abdomen is soft, round, nontender to touch. Previously placed G-tube is present, however not being used currently, with dressing at site, dry/intact. Anderson catheter is in place, draining cloudy/yellow urine. Skin has dressings in place on right and left trochanter, left foot, sacrum and right grewal; dry/intact. Bed is locked with three side rails up and call light within easy reach. Will continue to monitor pt and follow plan of care per MD orders and protocol.
--- NOTE | 2019-03-04 08:00 | NUR ---
NURSE NOTES: Bilateral soft wrist restraints placed on pt, for attempting to pull out ETT. Skin integrity at restraint site is within normal limits. Will continue to monitor pt.
--- NOTE | 2019-03-04 08:49 | NUR ---
RESPIRATORY NOTE: placed pt on CPAP with PS 8. tolerating well with spont Vt of 500-600. RN, notified
--- NOTE | 2019-03-04 09:11 | Critical Care Progress Note ---
Assessment/Plan Assessment/Plan Pneumonia Septic shock Acute and chronic respiratory failure with hypoxia Acute renal failure Anemia Dementia Schizophrenia Previous Hypertension H/o Atrial fibrillation COPD Previous aspiration pneumonia S/p feeding tube PLAN ICU care reviewed in detail feeds IV antibiotics respiratory care Ventilatory support monitor vitals closely SNF meds supportive care suction as needed wean as able and extubate stabilize further and reassess monitor imaging for change oxygen therapy prognosis guarded remains critical and requires ICU care medications/laboratory data/nursing notes/ICU care reviewed in detail note reviewed and edited care discussed with RN and RT ICU time spent 40 minutes Critical Care - Subjective Interval Events: on CPAP awake in bed in ICU ROS Limited/Unobtainable: Yes Condition: critical EKG Rhythm: Sinus Rhythm I&O: Intake and Output 03/03/19 03/04/19 19:00 07:00 Intake Total 1439.666 ml 1410 ml Output Total 1210 ml 640 ml Balance 229.666 ml 770 ml Intake IV Total 1279.666 ml 1050 ml Tube Feeding 160 ml 360 ml Output Urine Total 1210 ml 640 ml Critical Care - Objective ET-Tube: 7.5 ET Position: 26 Last 24 Hour Vital Signs Date Time Temp Pulse Resp B/P (MAP) Pulse Ox O2 Delivery O2 Flow Rate FiO2 03/04/19 08:44 99 19 40 03/04/19 08:43 100 03/04/19 07:29 92 16 100 Mechanical Ventilator 40 03/04/19 07:13 91 20 100 Mechanical Ventilator 40 03/04/19 07:13 90 22 40 03/04/19 07:00 98 15 134/70 (91) 100 03/04/19 06:00 92 6 130/63 (85) 100 03/04/19 05:00 96 13 130/63 (85) 03/04/19 04:59 102 26 40 03/04/19 04:00 Endotracheal Tube 03/04/19 04:00 40 03/04/19 04:00 97.8 102 15 128/78 (95) 100 03/04/19 04:00 98 03/04/19 03:28 94 24 100 Mechanical Ventilator 40 03/04/19 03:28 94 24 40 03/04/19 03:17 92 24 99 Mechanical Ventilator 40 03/04/19 03:00 91 18 112/75 (87) 100 03/04/19 02:00 86 13 144/66 (92) 100 03/04/19 01:30 84 21 40 03/04/19 01:00 84 11 125/55 (78) 100 03/04/19 00:00 98.4 89 18 114/59 (77) 100 03/04/19 00:00 90 03/04/19 00:00 Endotracheal Tube 03/03/19 23:00 89 15 112/70 (84) 100 03/03/19 22:49 87 23 40 03/03/19 22:48 92 23 100 Mechanical Ventilator 40 03/03/19 22:37 90 23 100 Mechanical Ventilator 40 03/03/19 22:00 87 15 116/58 (77) 100 03/03/19 21:30 87 22 40 03/03/19 21:00 88 14 107/54 (71) 100 03/03/19 20:00 40 03/03/19 20:00 84 03/03/19 20:00 98.2 86 9 112/55 (74) 100 03/03/19 20:00 Endotracheal Tube 03/03/19 19:28 Mechanical Ventilator 03/03/19 19:27 Mechanical Ventilator 03/03/19 19:21 90 24 40 03/03/19 19:00 91 18 119/76 (90) 100 03/03/19 18:58 98.0 89 20 150/119 (129) 100 03/03/19 18:00 98.0 92 20 131/77 (95) 100 03/03/19 17:19 98 21 40 03/03/19 17:00 98.0 95 19 150/46 (80) 100 03/03/19 16:00 Endotracheal Tube 03/03/19 16:00 40 03/03/19 16:00 98.0 93 20 127/76 (93) 100 03/03/19 15:59 93 03/03/19 15:23 90 24 100 Mechanical Ventilator 40 03/03/19 15:20 100 18 100 Mechanical Ventilator 40 03/03/19 15:20 91 17 40 03/03/19 15:00 98.5 89 17 134/68 (90) 100 03/03/19 14:00 94 16 124/63 (83) 91 03/03/19 14:00 95 16 124/63 (83) 96 03/03/19 13:30 98 19 100 03/03/19 13:01 95 20 40 03/03/19 13:00 97 16 111/92 (98) 100 03/03/19 13:00 97 16 111/92 (98) 100 03/03/19 12:59 100 03/03/19 12:30 94 17 100 03/03/19 12:00 40 03/03/19 12:00 Endotracheal Tube 03/03/19 12:00 101 6 111/62 (78) 100 03/03/19 12:00 95 03/03/19 11:10 102 24 100 Mechanical Ventilator 40 03/03/19 11:04 100 24 100 Mechanical Ventilator 40 03/03/19 11:04 109 31 40 03/03/19 11:00 103 22 124/77 (93) 100 03/03/19 10:00 111 22 131/76 (94) 99 03/03/19 09:15 101 24 40 Labs: Laboratory Tests Test 03/04/19 04:40 03/04/19 07:55 White Blood Count 9.7 K/UL (4.8-10.8) Red Blood Count 3.74 M/UL (4.70-6.10) L Hemoglobin 9.3 G/DL (14.2-18.0) L Hematocrit 29.7 % (42.0-52.0) L Mean Corpuscular Volume 79 FL (80-99) L Mean Corpuscular Hemoglobin 25.0 PG (27.0-31.0) L Mean Corpuscular Hemoglobin Concent 31.5 G/DL (32.0-36.0) L Red Cell Distribution Width 15.8 % (11.6-14.8) H Platelet Count 139 K/UL (150-450) L Mean Platelet Volume 7.1 FL (6.5-10.1) Neutrophils (%) (Auto) % (45.0-75.0) Lymphocytes (%) (Auto) % (20.0-45.0) Monocytes (%) (Auto) % (1.0-10.0) Eosinophils (%) (Auto) % (0.0-3.0) Basophils (%) (Auto) % (0.0-2.0) Arterial Blood pH 7.436 (7.350-7.450) Arterial Blood Partial Pressure CO2 31.5 mmHg (35.0-45.0) L Arterial Blood Partial Pressure O2 112.3 mmHg (75.0-100.0) H Arterial Blood HCO3 20.7 mmol/L (22.0-26.0) L Arterial Blood Oxygen Saturation 97.5 % (95-100) Arterial Blood Base Excess -2.9 (-2-2) L Rhett Test Positive Objective: WDWN NAD chronically ill orally intubated reduced breath sounds bilaterally without rhonchi or wheeze [id number] without MRG NABS nontender no HSM no CCE nonfocal more alert reduced ROM- contractures skin noted reviewed and edited tubes noted Tim Andrade MD Mar 04, 2019 09:11
[2019-03-04] MEDS: Pantoprazole Inj IVP SCH (09:19)
[2019-03-04] MEDS: Vancomycin 750mg/NS 275ml IVPB SCH ×2 (09:19)
[2019-03-04] MEDS: Dakin's 0.125% Soln (Quarter Strength) 16oz TOPIC SCH (09:20)
[2019-03-04] MEDS: Heparin 5000 units/ml inj SUBQ SCH ×2 (09:21→21:18)
[2019-03-04] MEDS: DOPamine 400mg/250ml 250 ML IV SCH (09:45)
--- NOTE | 2019-03-04 09:54 | NUR ---
[employer] SI:SEVER SEPSIS . ACUTE ON CHRONIC RESPIRATORY FAILURE WITH HYPOXIA . PNEUMONIA VS: BP 134/70, P 99, T 97.8, RR 6, SpO2 100 on VENT AC 16, TV 450, PEEP 5.0, FIO2 40 RBC 3.74, Hgb 9.3, Hct 29.7, Na 147, BUN 26 ABDOMINAL XRAY IMPRESSION: Nasogastric tube in gastric cavity. Stable gastrostomy tube. IS:ALBUTEROL 3ml HHN HEPARIN SUBQ PROTONIX 40mg IVP VANCOMYCIN 275ml IVPB KCL 1020ml IV CEFTRIAXONE 110ml IVPB ICU STATUS
--- NOTE | 2019-03-04 09:56 | NUR ---
RADIOLOGY DEPT., CHEST X-RAY DONE.-P.DYE
--- NOTE | 2019-03-04 10:00 | NUR ---
NURSE NOTES: Pt was seen by Dr Andrade. Pt is on CPAP with pressure support at 8, O2Sat 99%, with no respiratory distress. Will continue to monitor.
--- NOTE | 2019-03-04 10:34 | NUR ---
RD ASSESSMENT & RECOMMENDATIONS SEE CARE ACTIVITY FOR COMPLETE ASSESSMENT DAILY ESTIMATED NEEDS: Needs based on advanced wounds, CRITICAL CARE / 53.1kg 25-30 kcals/kg 7852-6531 total kcals 1.5-2.0 g protein/kg 79-106 g total protein 25-30 mL/kg 0157-9196 total fluid mLs NUTRITION DIAGNOSIS: * Swallowing difficulty R/T dysphagia as evidenced by pt GT dep, now orally intubated- on CPAP, off pressor support, GT feeds initiated.(UPDATED) * Increased kcal/pro needs R/T wound healing as evidenced by pt admitted w/ multiple advanced wounds including necrotic left foot amd lt trochanter wounds, full thickness injury to Rt tibia, refer to wc eval. CURRENT TF:Vital 1.2 @40ml ENTERAL NUTRITION RECOMMENDATIONS: Jevity 1.2 @ 55ml/hr x 24 hrs + Prosource 1pkt BID to provide 1320ml, 1584kcal, 73g + 22g prot, 1065ml free water WITH HEMODYNAMIC STABILITY, rec TF change to JEVITY 1.2 * Initiate Jevity 1.2 @ 15ml/hr x 6 hrs, advance 10ml q 4-6 hrs as tolerated to goal rate. * Add Prosource 1pkt BID to meet protein needs * HOB over 30 degrees/ water flush per MD --- WITHOUT HEMODYNAMIC STABILITY * Rec trophic feeds of Jevity 1.2 @ 10-15ml/hr x 24 hrs ADDITIONAL RECOMMENDATIONS: * Calibrated bedscale wt for accurate CBW * WOUND HEALING: add Simon 1pkt BID, Vit C 500mg BID * Monitor lytes, replete as needed -> elev NA-> rec to increase water flushes * Monitor HD stability and ability to feed . .
--- NOTE | 2019-03-04 11:53 | Diagnostic Imaging Report ---
Indication: Shortness of breath Technique: One view of the chest Comparison: For 03/16/2019 Findings: Interim nasogastric intubation,, coiled deep within the stomach. Stable satisfactory endotracheal tube and left jugular central venous catheter position. There is suggestion of increasing consolidation, atelectasis, and likely pleural fluid at the left lung base. The right lung and pleural space are clear and there is better aeration of the right lung base Impression: Satisfactory nasogastric intubation Increasing left basilar infiltrate and pleural fluid
--- NOTE | 2019-03-04 12:15 | NUR ---
NURSE NOTES: Pt is awake, resting in semi-steward's position, currently on CPAP with pressure support 5, with O2sat at 98-100%. conveyor monitor displays NSR, with HR 90's. OG feeding was replaced with GT feeding. Pt is tolerating GT feeding, with no residual, or s/s of nausea/vomiting. Anderson catheter is draining cloudy/yellow urine. Wound dressings have been changed. Oral care provided.
[2019-03-04] MEDS: cefTRIAXone 2gm/D5W 110ml IVPB SCH ×2 (13:02)
--- NOTE | 2019-03-04 13:27 | Infectious Diseases Prog Note ---
Assessment/Plan Assessment/Plan A: 1. Proteus sepsis 2. proteus UTI 3. leucocytosis resolved 4. shock, off pressors 5. respiratory failure 6. schizophrenia 7. renal failure improving 8. 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 continue iv vancomycin & Rocephin Subjective ROS Limited/Unobtainable: Yes Respiratory: Reports: other - on weaning process Allergies: Coded Allergies: No Known Allergies (Unverified , 02/25/19) Objective Vital Signs Last 24 Hour Vital Signs Date Time Temp Pulse Resp B/P (MAP) Pulse Ox O2 Delivery O2 Flow Rate FiO2 03/04/19 13:00 94 19 134/67 (89) 100 03/04/19 12:51 96 15 03/04/19 12:00 Endotracheal Tube 03/04/19 12:00 97.5 96 18 131/66 (87) 100 03/04/19 11:19 93 18 100 Mechanical Ventilator 40 03/04/19 11:07 90 19 03/04/19 11:07 91 19 100 Mechanical Ventilator 40 03/04/19 11:00 95 16 135/67 (89) 100 03/04/19 10:00 92 17 135/67 (89) 100 03/04/19 09:00 95 17 133/60 (84) 100 03/04/19 09:00 40 03/04/19 08:44 99 19 40 03/04/19 08:43 100 03/04/19 08:00 Endotracheal Tube 03/04/19 08:00 93 03/04/19 08:00 97.6 98 18 119/68 (85) 100 03/04/19 08:00 40 03/04/19 07:29 92 16 100 Mechanical Ventilator 40 03/04/19 07:13 91 20 100 Mechanical Ventilator 40 03/04/19 07:13 90 22 40 03/04/19 07:00 98 15 134/70 (91) 100 03/04/19 06:00 92 6 130/63 (85) 100 03/04/19 05:00 96 13 130/63 (85) 03/04/19 04:59 102 26 40 03/04/19 04:00 Endotracheal Tube 03/04/19 04:00 40 03/04/19 04:00 97.8 102 15 128/78 (95) 100 03/04/19 04:00 98 03/04/19 03:28 94 24 100 Mechanical Ventilator 40 03/04/19 03:28 94 24 40 03/04/19 03:17 92 24 99 Mechanical Ventilator 40 03/04/19 03:00 91 18 112/75 (87) 100 03/04/19 02:00 86 13 144/66 (92) 100 03/04/19 01:30 84 21 40 03/04/19 01:00 84 11 125/55 (78) 100 03/04/19 00:00 98.4 89 18 114/59 (77) 100 03/04/19 00:00 90 03/04/19 00:00 Endotracheal Tube 03/03/19 23:00 89 15 112/70 (84) 100 03/03/19 22:49 87 23 40 03/03/19 22:48 92 23 100 Mechanical Ventilator 40 03/03/19 22:37 90 23 100 Mechanical Ventilator 40 03/03/19 22:00 87 15 116/58 (77) 100 03/03/19 21:30 87 22 40 03/03/19 21:00 88 14 107/54 (71) 100 03/03/19 20:00 40 03/03/19 20:00 84 03/03/19 20:00 98.2 86 9 112/55 (74) 100 03/03/19 20:00 Endotracheal Tube 03/03/19 19:28 Mechanical Ventilator 03/03/19 19:27 Mechanical Ventilator 03/03/19 19:21 90 24 40 03/03/19 19:00 91 18 119/76 (90) 100 03/03/19 18:58 98.0 89 20 150/119 (129) 100 03/03/19 18:00 98.0 92 20 131/77 (95) 100 03/03/19 17:19 98 21 40 03/03/19 17:00 98.0 95 19 150/46 (80) 100 03/03/19 16:00 Endotracheal Tube 03/03/19 16:00 40 03/03/19 16:00 98.0 93 20 127/76 (93) 100 03/03/19 15:59 93 03/03/19 15:23 90 24 100 Mechanical Ventilator 40 03/03/19 15:20 100 18 100 Mechanical Ventilator 40 03/03/19 15:20 91 17 40 03/03/19 15:00 98.5 89 17 134/68 (90) 100 03/03/19 14:00 94 16 124/63 (83) 91 03/03/19 14:00 95 16 124/63 (83) 96 03/03/19 13:30 98 19 100 Height (Feet): 5 Height (Inches): 4.00 Weight (Pounds): 120 General Appearance: no acute distress HEENT: mucous membranes moist, other - orally intubated Respiratory/Chest: lungs clear, other - on ventilator Cardiovascular: normal rate, other - IJ central line Abdomen: soft, non tender, other - GT feeding Extremities: no edema, other - contracted legs Skin: ulcers Neurologic/Psychiatric: unresponsiveness Laboratory Tests Test 03/04/19 04:40 03/04/19 07:55 White Blood Count 9.7 K/UL (4.8-10.8) Red Blood Count 3.74 M/UL (4.70-6.10) L Hemoglobin 9.3 G/DL (14.2-18.0) L Hematocrit 29.7 % (42.0-52.0) L Mean Corpuscular Volume 79 FL (80-99) L Mean Corpuscular Hemoglobin 25.0 PG (27.0-31.0) L Mean Corpuscular Hemoglobin Concent 31.5 G/DL (32.0-36.0) L Red Cell Distribution Width 15.8 % (11.6-14.8) H Platelet Count 139 K/UL (150-450) L Mean Platelet Volume 7.1 FL (6.5-10.1) Neutrophils (%) (Auto) % (45.0-75.0) Lymphocytes (%) (Auto) % (20.0-45.0) Monocytes (%) (Auto) % (1.0-10.0) Eosinophils (%) (Auto) % (0.0-3.0) Basophils (%) (Auto) % (0.0-2.0) Arterial Blood pH 7.436 (7.350-7.450) Arterial Blood Partial Pressure CO2 31.5 mmHg (35.0-45.0) L Arterial Blood Partial Pressure O2 112.3 mmHg (75.0-100.0) H Arterial Blood HCO3 20.7 mmol/L (22.0-26.0) L Arterial Blood Oxygen Saturation 97.5 % (95-100) Arterial Blood Base Excess -2.9 (-2-2) L Rhett Test Positive Current Medications Medications (Trade) Dose Ordered Sig/Mckenzie Route PRN Reason Start Time Stop Time Status Last Admin Dose Admin Albuterol/ Ipratropium (Albuterol/ Ipratropium) 3 ml Q4HRT HHN 02/28/19 11:00 03/05/19 10:59 03/04/19 11:07 Ceftriaxone Sodium 2 gm/ Dextrose 110 ml @ 220 mls/hr Q24H IVPB 03/03/19 13:00 03/10/19 12:59 03/04/19 13:02 Chlorhexidine Gluconate (Liz-Hex 2%) 1 applic DAILY@2000 TOPIC 03/01/19 20:00 03/31/19 19:59 03/03/19 21:28 Dopamine HCl/ Dextrose 250 ml @ 0 mls/hr Q24H IV 02/28/19 09:45 03/30/19 09:44 03/01/19 19:49 Heparin Sodium (Porcine) (Heparin 5000 units/ml) 5,000 units EVERY 12 HOURS SUBQ 02/28/19 21:00 03/30/19 20:59 03/04/19 09:21 Norepinephrine Bitartrate 4 mg/ Dextrose 250 ml @ 0 mls/hr Q24H IV 02/28/19 07:45 03/30/19 07:44 03/01/19 15:55 Pantoprazole (Protonix) 40 mg DAILY IVP 03/01/19 09:00 03/31/19 08:59 03/04/19 09:19 Potassium Chloride 40 meq/ Sodium Chloride 1,020 ml @ 75 mls/hr [id number] IV 03/02/19 21:30 04/01/19 21:29 03/04/19 01:39 Sodium Hypochlorite (Dakin's Quarter Strength) 1 applic DAILY TOPIC 03/01/19 13:00 03/31/19 12:59 03/04/19 09:20 Vancomycin HCl (Vanco rx to dose) 1 ea DAILY PRN MISC Per rx protocol 02/28/19 07:45 03/30/19 07:44 Vancomycin HCl 750 mg/Sodium Chloride 275 ml @ 183.333 mls/hr Q24H IVPB 03/02/19 10:00 03/07/19 09:59 03/04/19 09:19 Lev Pardo MD Mar 04, 2019 13:27
--- NOTE | 2019-03-04 14:53 | Surgery Progress Note ---
Surgery Progress Note Subjective Procedure Performed endotracheal tube intubation Additional Comments ill appearing in ICU. still unresponsive Objective Last 24 Hour Vital Signs Date Time Temp Pulse Resp B/P (MAP) Pulse Ox O2 Delivery O2 Flow Rate FiO2 03/04/19 14:42 97 19 100 Mechanical Ventilator 40 03/04/19 14:41 97 20 03/04/19 14:00 94 17 139/70 (93) 100 03/04/19 13:00 94 19 134/67 (89) 100 03/04/19 12:51 96 15 03/04/19 12:00 Endotracheal Tube 03/04/19 12:00 97.5 96 18 131/66 (87) 100 03/04/19 11:19 93 18 100 Mechanical Ventilator 40 03/04/19 11:07 90 19 03/04/19 11:07 91 19 100 Mechanical Ventilator 40 03/04/19 11:00 95 16 135/67 (89) 100 03/04/19 10:00 92 17 135/67 (89) 100 03/04/19 09:00 95 17 133/60 (84) 100 03/04/19 09:00 40 03/04/19 08:44 99 19 40 03/04/19 08:43 100 03/04/19 08:00 Endotracheal Tube 03/04/19 08:00 93 03/04/19 08:00 97.6 98 18 119/68 (85) 100 03/04/19 08:00 40 03/04/19 07:29 92 16 100 Mechanical Ventilator 40 03/04/19 07:13 91 20 100 Mechanical Ventilator 40 03/04/19 07:13 90 22 40 03/04/19 07:00 98 15 134/70 (91) 100 03/04/19 06:00 92 6 130/63 (85) 100 03/04/19 05:00 96 13 130/63 (85) 03/04/19 04:59 102 26 40 03/04/19 04:00 Endotracheal Tube 03/04/19 04:00 40 03/04/19 04:00 97.8 102 15 128/78 (95) 100 03/04/19 04:00 98 03/04/19 03:28 94 24 100 Mechanical Ventilator 40 03/04/19 03:28 94 24 40 03/04/19 03:17 92 24 99 Mechanical Ventilator 40 03/04/19 03:00 91 18 112/75 (87) 100 03/04/19 02:00 86 13 144/66 (92) 100 03/04/19 01:30 84 21 40 03/04/19 01:00 84 11 125/55 (78) 100 03/04/19 00:00 98.4 89 18 114/59 (77) 100 03/04/19 00:00 90 03/04/19 00:00 Endotracheal Tube 03/03/19 23:00 89 15 112/70 (84) 100 03/03/19 22:49 87 23 40 03/03/19 22:48 92 23 100 Mechanical Ventilator 40 03/03/19 22:37 90 23 100 Mechanical Ventilator 40 03/03/19 22:00 87 15 116/58 (77) 100 03/03/19 21:30 87 22 40 03/03/19 21:00 88 14 107/54 (71) 100 03/03/19 20:00 40 03/03/19 20:00 84 03/03/19 20:00 98.2 86 9 112/55 (74) 100 03/03/19 20:00 Endotracheal Tube 03/03/19 19:28 Mechanical Ventilator 03/03/19 19:27 Mechanical Ventilator 03/03/19 19:21 90 24 40 03/03/19 19:00 91 18 119/76 (90) 100 03/03/19 18:58 98.0 89 20 150/119 (129) 100 03/03/19 18:00 98.0 92 20 131/77 (95) 100 03/03/19 17:19 98 21 40 03/03/19 17:00 98.0 95 19 150/46 (80) 100 03/03/19 16:00 Endotracheal Tube 03/03/19 16:00 40 03/03/19 16:00 98.0 93 20 127/76 (93) 100 03/03/19 15:59 93 03/03/19 15:23 90 24 100 Mechanical Ventilator 40 03/03/19 15:20 100 18 100 Mechanical Ventilator 40 03/03/19 15:20 91 17 40 03/03/19 15:00 98.5 89 17 134/68 (90) 100 I&O Intake and Output 03/03/19 03/04/19 18:59 06:59 Intake Total 1514.666 ml 1295 ml Output Total 1260 ml 590 ml Balance 254.666 ml 705 ml Intake IV Total 1354.666 ml 975 ml Tube Feeding 160 ml 320 ml Output Urine Total 1260 ml 590 ml Dressing: other Wound: other Drains: other Cardiovascular: RSR Respiratory: decreased breath sounds Abdomen: soft, present bowel sounds, decreased bowel sounds Extremities: no cyanosis Laboratory Tests Test 03/04/19 04:40 03/04/19 07:55 White Blood Count 9.7 K/UL (4.8-10.8) Red Blood Count 3.74 M/UL (4.70-6.10) L Hemoglobin 9.3 G/DL (14.2-18.0) L Hematocrit 29.7 % (42.0-52.0) L Mean Corpuscular Volume 79 FL (80-99) L Mean Corpuscular Hemoglobin 25.0 PG (27.0-31.0) L Mean Corpuscular Hemoglobin Concent 31.5 G/DL (32.0-36.0) L Red Cell Distribution Width 15.8 % (11.6-14.8) H Platelet Count 139 K/UL (150-450) L Mean Platelet Volume 7.1 FL (6.5-10.1) Neutrophils (%) (Auto) % (45.0-75.0) Lymphocytes (%) (Auto) % (20.0-45.0) Monocytes (%) (Auto) % (1.0-10.0) Eosinophils (%) (Auto) % (0.0-3.0) Basophils (%) (Auto) % (0.0-2.0) Arterial Blood pH 7.436 (7.350-7.450) Arterial Blood Partial Pressure CO2 31.5 mmHg (35.0-45.0) L Arterial Blood Partial Pressure O2 112.3 mmHg (75.0-100.0) H Arterial Blood HCO3 20.7 mmol/L (22.0-26.0) L Arterial Blood Oxygen Saturation 97.5 % (95-100) Arterial Blood Base Excess -2.9 (-2-2) L Rhett Test Positive Plan Problems: (1) Ulcer of lower extremity excluding decubitus ulcer Assessment & Plan: Pt presented on admission with contractures both lower ext with multiple necrotic wounds L trochanter,R tibia, and L foot. Lateral L foot (L)3.5cm x (W)11cm.90%Soft necrosis with surrounding slough along borders.Wound is malodorous. Small amt brown exudate noted.Greyish colour periwound. L Lateral metatarsal to L hallux (L)4.3cm x (W)6.9cm . Base of wound necrotic with area of fluctuance at lateral aspect L1st metatarsal.Wound is malodorous with small amt brownish exudate Greyish colour periwound. Lateral L heel (L)3cm x (W)6.6cm.100%Unstable necrosis base of wound with surrounding mixed soft slough with erythema.Wound is malodorous. Wound is malodorous with small amt brownish exudate. Plantar L foot (L)2.5cm x (W)1.5cm Unstable necrosis with indurated borders. No exudate noted. All 5 metatarsals are burgess in color. Full thickness pressure injury R tibia(L)6.5cm x (W)1cm. elongated wound with indurated red borders,10% necrosis at proximal end with #2 areas of slough- approx 10% with erythema that is dry remaining base of wound .No odor noted. Non-blanchable erythema with scattered purple areas medial L tibia(L)5.7cm x (W) 4.5cm.Site without fluctuance or induration .No elevation in skin temp. Dorsal R 2nd metatarsal head maroon with fluctuance.(L)0.8cm x (W)1.3cm. R heel boggy with non-blanchable erythema. Pressure injury to L trochanter 90% necrotic,dry with pink epithelialized borders. Dark skin tone without erythema or induration periwound .In close proximity is an area with pink epithelial tissue with a linear area in center that is brown but dry and adherent to base. Resolving pressure injury to sacrum.95% epithelial at base of wound .Small area at coccyx measuring(L)0.4cm x (W)0.3cm with yellow slough.No exudate noted. Areas of hyperpigmentation scarring noted to R and L ischial areas. Tx.Plan: Cleanse L trochanter with Saline. Apply Dakins 1/4% soaked gauze to L trochanter.Apply Cavilon Skin Barrier periwound. Cover with Optifoam drsg. Change daily and PRN. Cleanse R tibia with Saline.Apply Dakins 1/4% soaked gauze. Cavilon Skin Barrier periwound.Cover with Optifoam drsg. Change Daily and prn. Apply Cavilon Skin Barrier to L medial /idalia L tibia .Cover with Optifoam drsg. Change every 7 days and prn. Apply Cavilon Skin Barrier to R heel. Cover with Optifoam drsg.Change every 7 days and PRN. Cleanse coccygeal wound with saline. Apply Therahoney.Apply Triad Paste periwound to sacrum. Cover with Optifoam drsg. Change Daily and prn. APM/KAVON Mattress overlay. Reposition at least every 2hours or as tolerated. Place Pillow between knees . Off-load heels with pillow. (2) Septic shock Assessment & Plan: Intubated for airway protection in ICU see note for details cont with vent CXR ABG with trend and wean vent settings trend labs wean pressors fluids aguilera will monitor prognosis guarded (3) Asymptomatic bacteriuria (4) ARF (acute renal failure) (5) Healthcare-associated pneumonia (6) Acute and chronic respiratory failure with hypoxia (7) Anemia (8) Alzheimer disease (9) Dysphagia (10) Sepsis (11) Pneumonia (12) Gastroparesis (13) Severe sepsis (14) Encounter for PEG (percutaneous endoscopic gastrostomy) (15) Decubitus ulcer of trochanteric region of left hip Rios Quiñones Mar 04, 2019 14:53
[2019-03-04] MEDS ORDERED: Morphine Sulfate 2mg/ml Inj(IV/IM USE ONLY) IVP PRN ×2 (15:15→15:45)
--- NOTE | 2019-03-04 16:00 | NUR ---
NURSE NOTES: Pt has been on CIPAP with pressure support 5, with O2Sat 97-100s, was weaned from AC16 per MD resp-weaning order. Vitals BP 130's/60's, HR 90's, R18-19. ABGs drawn and results reported to Dr Andrade. Waiting for approval to extubate pt.
--- NOTE | 2019-03-04 16:13 | General Progress Note ---
Assessment/Plan Assessment/Plan MOF, septic shock - IVF, IV Abx, emerging from. Urosepsis - IV Abx VDRF - vent.Hope to extubate. Infected decubs - GS following Subjective Allergies: Coded Allergies: No Known Allergies (Unverified , 02/25/19) Subjective Obtunded, Nonverbal. Objective Last 24 Hour Vital Signs Date Time Temp Pulse Resp B/P (MAP) Pulse Ox O2 Delivery O2 Flow Rate FiO2 03/04/19 14:54 97 19 100 Mechanical Ventilator 40 03/04/19 14:42 97 19 100 Mechanical Ventilator 40 03/04/19 14:41 97 20 03/04/19 14:00 94 17 139/70 (93) 100 03/04/19 13:00 94 19 134/67 (89) 100 03/04/19 12:51 96 15 03/04/19 12:00 Endotracheal Tube 03/04/19 12:00 97.5 96 18 131/66 (87) 100 03/04/19 11:19 93 18 100 Mechanical Ventilator 40 03/04/19 11:07 90 19 03/04/19 11:07 91 19 100 Mechanical Ventilator 40 03/04/19 11:00 95 16 135/67 (89) 100 03/04/19 10:00 92 17 135/67 (89) 100 03/04/19 09:00 95 17 133/60 (84) 100 03/04/19 09:00 40 03/04/19 08:44 99 19 40 03/04/19 08:43 100 03/04/19 08:00 Endotracheal Tube 03/04/19 08:00 93 03/04/19 08:00 97.6 98 18 119/68 (85) 100 03/04/19 08:00 40 03/04/19 07:29 92 16 100 Mechanical Ventilator 40 03/04/19 07:13 91 20 100 Mechanical Ventilator 40 03/04/19 07:13 90 22 40 03/04/19 07:00 98 15 134/70 (91) 100 03/04/19 06:00 92 6 130/63 (85) 100 03/04/19 05:00 96 13 130/63 (85) 03/04/19 04:59 102 26 40 03/04/19 04:00 Endotracheal Tube 03/04/19 04:00 40 03/04/19 04:00 97.8 102 15 128/78 (95) 100 03/04/19 04:00 98 03/04/19 03:28 94 24 100 Mechanical Ventilator 40 03/04/19 03:28 94 24 40 03/04/19 03:17 92 24 99 Mechanical Ventilator 40 03/04/19 03:00 91 18 112/75 (87) 100 03/04/19 02:00 86 13 144/66 (92) 100 03/04/19 01:30 84 21 40 03/04/19 01:00 84 11 125/55 (78) 100 03/04/19 00:00 98.4 89 18 114/59 (77) 100 03/04/19 00:00 90 03/04/19 00:00 Endotracheal Tube 03/03/19 23:00 89 15 112/70 (84) 100 03/03/19 22:49 87 23 40 03/03/19 22:48 92 23 100 Mechanical Ventilator 40 03/03/19 22:37 90 23 100 Mechanical Ventilator 40 03/03/19 22:00 87 15 116/58 (77) 100 03/03/19 21:30 87 22 40 03/03/19 21:00 88 14 107/54 (71) 100 03/03/19 20:00 40 03/03/19 20:00 84 03/03/19 20:00 98.2 86 9 112/55 (74) 100 03/03/19 20:00 Endotracheal Tube 03/03/19 19:28 Mechanical Ventilator 03/03/19 19:27 Mechanical Ventilator 03/03/19 19:21 90 24 40 03/03/19 19:00 91 18 119/76 (90) 100 03/03/19 18:58 98.0 89 20 150/119 (129) 100 03/03/19 18:00 98.0 92 20 131/77 (95) 100 03/03/19 17:19 98 21 40 03/03/19 17:00 98.0 95 19 150/46 (80) 100 Intake and Output 03/03/19 03/04/19 19:00 07:00 Intake Total 1439.666 ml 1410 ml Output Total 1210 ml 640 ml Balance 229.666 ml 770 ml Intake IV Total 1279.666 ml 1050 ml Tube Feeding 160 ml 360 ml Output Urine Total 1210 ml 640 ml Laboratory Tests 03/04/19 04:40: White Blood Count 9.7, Red Blood Count 3.74L, Hemoglobin 9.3L, Hematocrit 29.7L , Mean Corpuscular Volume 79L, Mean Corpuscular Hemoglobin 25.0L, Mean Corpuscular Hemoglobin Concent 31.5L, Red Cell Distribution Width 15.8H, Platelet Count 139L, Mean Platelet Volume 7.1, Neutrophils (%) (Auto) , Lymphocytes (%) (Auto) , Monocytes (%) (Auto) , Eosinophils (%) (Auto) , Basophils (%) (Auto) 03/04/19 07:55: Arterial Blood pH 7.436, Arterial Blood Partial Pressure CO2 31.5L, Arterial Blood Partial Pressure O2 112.3H, Arterial Blood HCO3 20.7L, Arterial Blood Oxygen Saturation 97.5, Arterial Blood Base Excess -2.9L, Rhett Test Positive 03/04/19 14:45: Arterial Blood pH 7.462H, Arterial Blood Partial Pressure CO2 30.6L, Arterial Blood Partial Pressure O2 122.2H, Arterial Blood HCO3 21.4L, Arterial Blood Oxygen Saturation 97.9, Arterial Blood Base Excess -1.8, Rhett Test Positive Height (Feet): 5 Height (Inches): 4.00 Weight (Pounds): 120 Objective Intubated, On Vent. CV RR Lungs B Ronchi. Abd SNT. BS + E Contractures. No CCE. Sacral decub. Neuro - obtunded - non focal. FC cloudy, concentrated urine. Ervin Mario MD Mar 04, 2019 16:13
--- NOTE | 2019-03-04 16:30 | NUR ---
NURSE NOTES: RT at bedside, pt was extubated per Dr Andrade's order, to maintain sats >92. Currently O2sat 100%, R20, BP130/74, HR93. Pt is placed on Venturi mask 50% FIO2. Will continue to monitor.
--- NOTE | 2019-03-04 17:06 | NUR ---
RESPIRATORY NOTE: orders followed to extubate pt. pt extubated at 1630 with RN at bedside. no stridor heard post extubation and no resp distress. pt is now on 40% VM with current spo2 of 100%.
--- NOTE | 2019-03-04 18:00 | NUR ---
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 Currently no residual.
--- NOTE | 2019-03-04 19:32 | Cardiology Report ---
APPROVED REPORT EKG Measurement Heart [id number] Normal sinus rhythm Low voltage QRS Possible Inferior infarct, age undetermined Cannot rule out Anteroseptal infarct, age undetermined Abnormal ECG
--- NOTE | 2019-03-04 19:40 | NUR ---
NURSE NOTES: Received Pt is sleeping on the bed and confused and forgetful. On O2 8L via venturi mask and FiO2 40% and SaO2 100% noted. On G-tube feeding with Jevity 1.2@ 15cc/hr running and tolerated well. No residual noted. On Bilateral soft restraint. Checked comfort and circulation. Trying to release restraint when during care but he still trying to touch central line and venturi mask. On Anderson cath and patent and yellowish urine urinated well. Dressing is clean and dry on wound area. Dressing is clean and dry on Lt. IJ TLC area and no sign of infiltration noted. Changed position. Placed fall precaution. Will continue to care plan.
--- NOTE | 2019-03-04 19:43 | NUR ---
HAND-OFF: Report given to Phil GARCIA. Pt is resting in bed in stable condition. Endorsed plan of care.
--- NOTE | 2019-03-04 20:00 | NUR ---
NURSE NOTES: On G-tube feeding with Jevity 1.2@ 15cc/hr and tolerated well. No residual noted. increased 10cc more and running with 25cc/hr. On O2 8l via Venturi mask and SaO2 100% noted. Changed position. Will continue to monitor any change of condition.
[2019-03-04] MEDS: Dyna-Hex 2% Top Sol 2oz TOPIC SCH (20:02)
--- NOTE | 2019-03-04 21:17 | Cardiology Progress Note ---
Assessment/Plan Assessment/Plan the patient is recovering from septic shock, and he is stable from cardiac standpoint, off pressors Subjective Subjective Looks better, more alert, still non communicating Objective Last 24 Hour Vital Signs Date Time Temp Pulse Resp B/P (MAP) Pulse Ox O2 Delivery O2 Flow Rate FiO2 03/04/19 19:30 94 17 100 Venturi Mask 40 03/04/19 19:01 94 19 100 Venturi Mask 8.0 40 03/04/19 19:00 93 18 129/72 (91) 100 03/04/19 18:00 103 23 138/81 (100) 100 03/04/19 17:05 100 Venturi Mask 8.0 40 03/04/19 17:05 Venturi Mask 8.0 40 03/04/19 17:00 98 19 125/75 (92) 99 03/04/19 16:57 Venturi Mask 8.0 40 03/04/19 16:30 8.0 40 03/04/19 16:00 Endotracheal Tube 03/04/19 16:00 96 03/04/19 16:00 40 03/04/19 16:00 98.8 96 18 137/74 (95) 100 03/04/19 15:00 95 20 134/73 (93) 100 03/04/19 14:54 97 19 100 Mechanical Ventilator 40 03/04/19 14:42 97 19 100 Mechanical Ventilator 40 03/04/19 14:41 97 20 03/04/19 14:00 94 17 139/70 (93) 100 03/04/19 13:00 94 19 134/67 (89) 100 03/04/19 12:51 96 15 03/04/19 12:00 Endotracheal Tube 03/04/19 12:00 97 03/04/19 12:00 97.5 96 18 131/66 (87) 100 03/04/19 11:19 93 18 100 Mechanical Ventilator 40 03/04/19 11:07 90 19 03/04/19 11:07 91 19 100 Mechanical Ventilator 40 03/04/19 11:00 95 16 135/67 (89) 100 03/04/19 10:00 92 17 135/67 (89) 100 03/04/19 09:00 95 17 133/60 (84) 100 03/04/19 09:00 40 03/04/19 08:44 99 19 40 03/04/19 08:43 100 03/04/19 08:00 Endotracheal Tube 03/04/19 08:00 93 03/04/19 08:00 97.6 98 18 119/68 (85) 100 03/04/19 08:00 40 03/04/19 07:29 92 16 100 Mechanical Ventilator 40 03/04/19 07:13 91 20 100 Mechanical Ventilator 40 03/04/19 07:13 90 22 40 03/04/19 07:00 98 15 134/70 (91) 100 03/04/19 06:00 92 6 130/63 (85) 100 03/04/19 05:00 96 13 130/63 (85) 03/04/19 04:59 102 26 40 03/04/19 04:00 Endotracheal Tube 03/04/19 04:00 40 03/04/19 04:00 97.8 102 15 128/78 (95) 100 03/04/19 04:00 98 03/04/19 03:28 94 24 100 Mechanical Ventilator 40 03/04/19 03:28 94 24 40 03/04/19 03:17 92 24 99 Mechanical Ventilator 40 03/04/19 03:00 91 18 112/75 (87) 100 03/04/19 02:00 86 13 144/66 (92) 100 03/04/19 01:30 84 21 40 03/04/19 01:00 84 11 125/55 (78) 100 03/04/19 00:00 98.4 89 18 114/59 (77) 100 03/04/19 00:00 90 03/04/19 00:00 Endotracheal Tube 03/03/19 23:00 89 15 112/70 (84) 100 03/03/19 22:49 87 23 40 03/03/19 22:48 92 23 100 Mechanical Ventilator 40 03/03/19 22:37 90 23 100 Mechanical Ventilator 40 03/03/19 22:00 87 15 116/58 (77) 100 03/03/19 21:30 87 22 40 General Appearance: alert, on vent EENT: PERRL/EOMI Neck: no JVD Rhythm: NSR Cardiovascular: tachycardia Respiratory/Chest: crackles/rales Abdomen: soft Extremities: other - severe contractures Intake and Output 03/03/19 03/04/19 18:59 06:59 Intake Total 1514.666 ml 1295 ml Output Total 1260 ml 590 ml Balance 254.666 ml 705 ml Intake IV Total 1354.666 ml 975 ml Tube Feeding 160 ml 320 ml Output Urine Total 1260 ml 590 ml Laboratory Tests Test 03/04/19 04:40 03/04/19 07:55 03/04/19 14:45 White Blood Count 9.7 K/UL (4.8-10.8) Red Blood Count 3.74 M/UL (4.70-6.10) L Hemoglobin 9.3 G/DL (14.2-18.0) L Hematocrit 29.7 % (42.0-52.0) L Mean Corpuscular Volume 79 FL (80-99) L Mean Corpuscular Hemoglobin 25.0 PG (27.0-31.0) L Mean Corpuscular Hemoglobin Concent 31.5 G/DL (32.0-36.0) L Red Cell Distribution Width 15.8 % (11.6-14.8) H Platelet Count 139 K/UL (150-450) L Mean Platelet Volume 7.1 FL (6.5-10.1) Neutrophils (%) (Auto) % (45.0-75.0) Lymphocytes (%) (Auto) % (20.0-45.0) Monocytes (%) (Auto) % (1.0-10.0) Eosinophils (%) (Auto) % (0.0-3.0) Basophils (%) (Auto) % (0.0-2.0) Arterial Blood pH 7.436 (7.350-7.450) 7.462 (7.350-7.450) Arterial Blood Partial Pressure CO2 31.5 mmHg (35.0-45.0) L 30.6 mmHg (35.0-45.0) L Arterial Blood Partial Pressure O2 112.3 mmHg (75.0-100.0) H 122.2 mmHg (75.0-100.0) H Arterial Blood HCO3 20.7 mmol/L (22.0-26.0) L 21.4 mmol/L (22.0-26.0) L Arterial Blood Oxygen Saturation 97.5 % (95-100) 97.9 % (95-100) Arterial Blood Base Excess -2.9 (-2-2) L -1.8 (-2-2) Rhett Test Positive Positive Sally Doty MD Mar 04, 2019 21:17
[2019-03-05] VITALS (24 sets, daily range): BP systolic 88–161; BP diastolic 56–78
--- NOTE | 2019-03-05 | NUR ---
NURSE NOTES: Pt is sleeping on the bed and but still confused. No sign of respiratory distress noted. Changed position. Provided good sleep environment. Will continue to care plan.
--- NOTE | 2019-03-05 02:00 | NUR ---
NURSE NOTES: Dislodged central line dressing. Changed dressing on Lt. IJ TLC. No sign of infiltration noted. Changed position. V/S stable. No sign of acute respiratory distress noted.
[2019-03-05] MEDS: Albuterol/Ipratropium 3ml neb HHN SCH ×2 (03:31→07:49)
[2019-03-05] MEDS: Potassium Chloride 40 MEQ in 1/2 NS 1000ml 1,000 ML IV SCH ×2 (03:38→17:36)
--- NOTE | 2019-03-05 04:00 | NUR ---
NURSE NOTES: Morning care was done. Cleaned Pt and applied lotion and cream. Given oral suction. Provided oral suction. SaO2 100% noted with On O2 8L via nasal cannula. Changed position. Tolerated well with G-tube feeding. No residual noted. Increased to 35cc/hr. Will continue to care plan.
--- NOTE | 2019-03-05 06:00 | NUR ---
NURSE NOTES: Repositioned. No sign of acute distress noted. Will continue to care plan.
--- NOTE | 2019-03-05 07:20 | NUR ---
HAND-OFF: Report given to JOSE Monk. Pt is sleeping on the bed and no sign of acute distress noted.
--- NOTE | 2019-03-05 07:21 | NUR ---
NURSE NOTES: Received report on pt from Sharon GARCIA. Pt is asleep in semi-steward's position, awakens to touch/voice. Currently on Venturi mask at 8L/40% FIO2, with O2 sat 100%. Rhonchi auscultated on expiration on bilateral upper lobes. 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 Bounding radial pulse palpated on bilateral UE. Left upper extremity edema present. GT feeding on Jevity 1.2 at 35ml/hour, slowly titrating to goal of 55/hour per dietary, at 10mL Q4-6hrs. Pt is tolerating feeding well with no episode or s/s of nausea/vomiting and with 0 residual. Abdomen is round, soft/nontender to touch. Active bowel sounds auscultated in all quadrants. Anderson catheter is in place 16F, draining lightly cloudy/yellow urine. Bilateral soft wrist restraints are in place, with skin integrity at restraint-site within normal limits. Skin has dressings on left foot, bilateral trochanter, sacrum and grewal, dry/intact. Pt is on P200 pressure releaving mattress. BLE are severely contracted. Central line IV access is present on left IJ, infusing 0.45%NS with KCL 40meq @75mL/hour. Bed is locked with three side rails up and call light within easy reach. Will continue to monitor pt and follow plan of care per MD orders and protocol.
--- NOTE | 2019-03-05 08:38 | Critical Care Progress Note ---
Assessment/Plan Assessment/Plan Pneumonia Septic shock Acute and chronic respiratory failure with hypoxia s/p extubation Acute renal failure Anemia Dementia Schizophrenia Previous Hypertension H/o Atrial fibrillation COPD Previous aspiration pneumonia S/p feeding tube PLAN ICU care reviewed in detail feeds as able IV antibiotics respiratory care Ventilatory support off monitor vitals closely SNF meds supportive care suction as needed monitor oxygen needs stabilize further and reassess monitor imaging for change oxygen therapy as is prognosis guarded transition out of ICU medications/laboratory data/nursing notes/ICU care reviewed in detail note reviewed and edited care discussed with RN and RT ICU time spent 40 minutes Critical Care - Subjective Interval Events: extubated comfortable on NC ROS Limited/Unobtainable: Yes Condition: critical EKG Rhythm: Sinus Rhythm Residuals: minimal Tube Feeding Tolerated: yes I&O: Intake and Output 03/04/19 03/05/19 19:00 07:00 Intake Total 1891.666 ml 1085 ml Output Total 1125 ml 2160 ml Balance 766.666 ml -1075 ml Intake IV Total 1486.666 ml 785 ml Tube Feeding 405 ml 300 ml Output Urine Total 1125 ml 2160 ml Critical Care - Objective ET-Tube: 7.5 ET Position: 26 Last 24 Hour Vital Signs Date Time Temp Pulse Resp B/P (MAP) Pulse Ox O2 Delivery O2 Flow Rate FiO2 03/05/19 07:58 96 20 99 Nasal Cannula 2.0 28 03/05/19 07:49 Venturi Mask 8.0 40 03/05/19 07:49 98 Venturi Mask 8.0 40 03/05/19 07:49 90 20 97 Venturi Mask 8.0 40 03/05/19 07:00 92 19 113/63 (80) 99 03/05/19 06:00 84 19 114/56 (75) 99 03/05/19 05:00 92 112/59 (76) 100 03/05/19 04:00 Venturi Mask 8.0 03/05/19 04:00 98.4 92 116/58 (77) 100 03/05/19 04:00 89 03/05/19 03:56 92 22 99 Venturi Mask 40 03/05/19 03:31 93 17 98 Venturi Mask 8.0 40 03/05/19 03:00 92 116/59 (78) 100 03/05/19 02:00 92 119/62 (81) 99 03/05/19 01:00 91 19 112/64 (80) 100 03/05/19 00:00 97.5 91 19 113/62 (79) 100 03/05/19 00:00 Venturi Mask 8.0 03/05/19 00:00 93 03/04/19 23:46 92 19 100 Venturi Mask 40 03/04/19 23:36 90 19 100 Venturi Mask 8.0 40 03/04/19 23:00 90 20 119/65 (83) 100 03/04/19 22:00 92 19 122/64 (83) 100 03/04/19 21:00 93 19 120/68 (85) 100 03/04/19 20:00 Venturi Mask 8.0 03/04/19 20:00 97.5 93 18 136/65 (88) 100 03/04/19 20:00 97 03/04/19 19:30 94 17 100 Venturi Mask 40 03/04/19 19:01 94 19 100 Venturi Mask 8.0 40 03/04/19 19:00 93 18 129/72 (91) 100 03/04/19 18:00 103 23 138/81 (100) 100 03/04/19 17:05 100 Venturi Mask 8.0 40 03/04/19 17:05 Venturi Mask 8.0 40 03/04/19 17:00 98 19 125/75 (92) 99 03/04/19 16:57 Venturi Mask 8.0 40 03/04/19 16:30 8.0 40 03/04/19 16:00 Endotracheal Tube 03/04/19 16:00 96 03/04/19 16:00 40 03/04/19 16:00 98.8 96 18 137/74 (95) 100 03/04/19 15:00 95 20 134/73 (93) 100 03/04/19 14:54 97 19 100 Mechanical Ventilator 40 03/04/19 14:42 97 19 100 Mechanical Ventilator 40 03/04/19 14:41 97 20 03/04/19 14:00 94 17 139/70 (93) 100 03/04/19 13:00 94 19 134/67 (89) 100 03/04/19 12:51 96 15 03/04/19 12:00 Endotracheal Tube 03/04/19 12:00 97 03/04/19 12:00 97.5 96 18 131/66 (87) 100 03/04/19 11:19 93 18 100 Mechanical Ventilator 40 03/04/19 11:07 90 19 03/04/19 11:07 91 19 100 Mechanical Ventilator 40 03/04/19 11:00 95 16 135/67 (89) 100 03/04/19 10:00 92 17 135/67 (89) 100 03/04/19 09:00 95 17 133/60 (84) 100 03/04/19 09:00 40 03/04/19 08:44 99 19 40 03/04/19 08:43 100 Labs: Labs Test 03/03/19 05:25 03/04/19 04:40 03/04/19 07:55 03/04/19 14:45 White Blood Count 10.2 K/UL (4.8-10.8) 9.7 K/UL (4.8-10.8) Red Blood Count 3.77 M/UL (4.70-6.10) 3.74 M/UL (4.70-6.10) Hemoglobin 9.4 G/DL (14.2-18.0) 9.3 G/DL (14.2-18.0) Hematocrit 29.4 % (42.0-52.0) 29.7 % (42.0-52.0) Mean Corpuscular Volume 78 FL (80-99) 79 FL (80-99) Mean Corpuscular Hemoglobin 25.0 PG (27.0-31.0) 25.0 PG (27.0-31.0) Mean Corpuscular Hemoglobin Concent 32.0 G/DL (32.0-36.0) 31.5 G/DL (32.0-36.0) Red Cell Distribution Width 15.2 % (11.6-14.8) 15.8 % (11.6-14.8) Platelet Count 137 K/UL (150-450) 139 K/UL (150-450) Mean Platelet Volume 7.3 FL (6.5-10.1) 7.1 FL (6.5-10.1) Neutrophils (%) (Auto) % (45.0-75.0) % (45.0-75.0) Lymphocytes (%) (Auto) % (20.0-45.0) % (20.0-45.0) Monocytes (%) (Auto) % (1.0-10.0) % (1.0-10.0) Eosinophils (%) (Auto) % (0.0-3.0) % (0.0-3.0) Basophils (%) (Auto) % (0.0-2.0) % (0.0-2.0) Sodium Level 147 MMOL/L (136-145) Potassium Level 3.6 MMOL/L (3.5-5.1) Chloride Level 116 MMOL/L (98-107) Carbon Dioxide Level 21 MMOL/L (21-32) Anion Gap 10 mmol/L (5-15) Blood Urea Nitrogen 26 mg/dL (7-18) Creatinine 0.8 MG/DL (0.55-1.30) Estimat Glomerular Filtration Rate mL/min (>60) Glucose Level 51 MG/DL (74-106) Calcium Level 7.4 MG/DL (8.5-10.1) Arterial Blood pH 7.436 (7.350-7.450) 7.462 (7.350-7.450) Arterial Blood Partial Pressure CO2 31.5 mmHg (35.0-45.0) 30.6 mmHg (35.0-45.0) Arterial Blood Partial Pressure O2 112.3 mmHg (75.0-100.0) 122.2 mmHg (75.0-100.0) Arterial Blood HCO3 20.7 mmol/L (22.0-26.0) 21.4 mmol/L (22.0-26.0) Arterial Blood Oxygen Saturation 97.5 % (95-100) 97.9 % (95-100) Arterial Blood Base Excess -2.9 (-2-2) -1.8 (-2-2) Rhett Test Positive Positive Objective: WDWN NAD chronically ill extubated reduced breath sounds bilaterally without rhonchi or wheeze [id number] without MRG NABS nontender no HSM no CCE nonfocal and same reduced ROM- contractures skin noted reviewed and edited tubes noted Tim Andrade MD Mar 05, 2019 08:38
--- NOTE | 2019-03-05 09:00 | NUR ---
NURSE NOTES: Oral care given. Pt cleaned and repositioned. Vital signs are within normal limits. Pt is resting in semi-steawrd's position in stable condition. Will continue to monitor.
[2019-03-05] MEDS: DOPamine 400mg/250ml 250 ML IV SCH (09:45)
[2019-03-05] MEDS: Vancomycin 750mg/NS 275ml IVPB SCH ×2 (09:46)
[2019-03-05] MEDS: Pantoprazole Inj IVP SCH (09:47)
[2019-03-05] MEDS: Heparin 5000 units/ml inj SUBQ SCH ×2 (09:48→20:46)
[2019-03-05] MEDS: Dakin's 0.125% Soln (Quarter Strength) 16oz TOPIC SCH (09:48)
[2019-03-05 09:49] LABS: BASOPHILS % (AUTO) 1.2 % (0.0-2.0); EOSINOPHILS % (AUTO) 2.6 % (0.0-3.0); HEMATOCRIT 27.7 % (42.0-52.0); HEMOGLOBIN 8.8 G/DL (14.2-18.0); LYMPHOCYTES % (AUTO) 15.4 % (20.0-45.0); MEAN CORPUSCULAR VOLUME 77 FL (80-99); MONOCYTES % (AUTO) 9.9 % (1.0-10.0); NEUTROPHILS % (AUTO) 70.9 % (45.0-75.0); PLATELET COUNT 137 K/UL (150-450); RED BLOOD COUNT 3.61 M/UL (4.70-6.10); RED CELL DISTRIBUTION WIDTH 14.7 % (11.6-14.8); WHITE BLOOD COUNT 6.4 K/UL (4.8-10.8)
[2019-03-05 09:55] LABS: ANION GAP 4 mmol/L (5-15); BLOOD UREA NITROGEN 10 mg/dL (7-18); CALCIUM 7.2 MG/DL (8.5-10.1); CARBON DIOXIDE 28 MMOL/L (21-32); CHLORIDE 113 MMOL/L (98-107); CREATININE 0.6 MG/DL (0.55-1.30); POTASSIUM 4.6 MMOL/L (3.5-5.1); SODIUM 145 MMOL/L (136-145)
--- NOTE | 2019-03-05 10:13 | Infectious Diseases Prog Note ---
Assessment/Plan Assessment/Plan antibiotics : ceftriaxone A 1. proteus sepsis secondary to UTI 2. proteus UTI 3. leucocytosis resolved 4. shock resolved 5. respiratory failure resolved 6. schizophrenia 7. renal failure improving 8. dementia P 1. continue iv ceftriaxone 4 more days 2. will follow up cultures Subjective Constitutional: Denies: fever, chills Respiratory: Denies: shortness of breath, dry cough Gastrointestinal/Abdominal: Denies: nausea, vomiting, diarrhea Musculoskeletal: Denies: pain Allergies: Coded Allergies: No Known Allergies (Unverified , 02/25/19) Objective Vital Signs Last 24 Hour Vital Signs Date Time Temp Pulse Resp B/P (MAP) Pulse Ox O2 Delivery O2 Flow Rate FiO2 03/05/19 09:00 93 22 119/63 (81) 96 03/05/19 08:00 97.7 97 23 119/65 (83) 96 03/05/19 07:58 96 20 99 Nasal Cannula 2.0 28 03/05/19 07:49 Venturi Mask 8.0 40 03/05/19 07:49 98 Venturi Mask 8.0 40 03/05/19 07:49 90 20 97 Venturi Mask 8.0 40 03/05/19 07:00 92 19 113/63 (80) 99 03/05/19 06:00 84 19 114/56 (75) 99 03/05/19 05:00 92 112/59 (76) 100 03/05/19 04:00 Venturi Mask 8.0 03/05/19 04:00 98.4 92 116/58 (77) 100 03/05/19 04:00 89 03/05/19 03:56 92 22 99 Venturi Mask 40 03/05/19 03:31 93 17 98 Venturi Mask 8.0 40 03/05/19 03:00 92 19 116/59 (78) 100 03/05/19 02:00 92 19 119/62 (81) 99 03/05/19 01:00 91 19 112/64 (80) 100 03/05/19 00:00 97.5 91 19 113/62 (79) 100 03/05/19 00:00 Venturi Mask 8.0 03/05/19 00:00 93 03/04/19 23:46 92 19 100 Venturi Mask 40 03/04/19 23:36 90 19 100 Venturi Mask 8.0 40 03/04/19 23:00 90 20 119/65 (83) 100 03/04/19 22:00 92 19 122/64 (83) 100 03/04/19 21:00 93 19 120/68 (85) 100 03/04/19 20:00 Venturi Mask 8.0 03/04/19 20:00 97.5 93 18 136/65 (88) 100 03/04/19 20:00 97 03/04/19 19:30 94 17 100 Venturi Mask 40 03/04/19 19:01 94 19 100 Venturi Mask 8.0 40 03/04/19 19:00 93 18 129/72 (91) 100 03/04/19 18:00 103 23 138/81 (100) 100 03/04/19 17:05 100 Venturi Mask 8.0 40 03/04/19 17:05 Venturi Mask 8.0 40 03/04/19 17:00 98 19 125/75 (92) 99 03/04/19 16:57 Venturi Mask 8.0 40 03/04/19 16:30 8.0 40 03/04/19 16:00 Endotracheal Tube 03/04/19 16:00 96 03/04/19 16:00 40 03/04/19 16:00 98.8 96 18 137/74 (95) 100 03/04/19 15:00 95 20 134/73 (93) 100 03/04/19 14:54 97 19 100 Mechanical Ventilator 40 03/04/19 14:42 97 19 100 Mechanical Ventilator 40 03/04/19 14:41 97 20 03/04/19 14:00 94 17 139/70 (93) 100 03/04/19 13:00 94 19 134/67 (89) 100 03/04/19 12:51 96 15 03/04/19 12:00 Endotracheal Tube 03/04/19 12:00 97 03/04/19 12:00 97.5 96 18 131/66 (87) 100 03/04/19 11:19 93 18 100 Mechanical Ventilator 40 03/04/19 11:07 90 19 03/04/19 11:07 91 19 100 Mechanical Ventilator 40 03/04/19 11:00 95 16 135/67 (89) 100 Height (Feet): 5 Height (Inches): 4.00 Weight (Pounds): 122 Respiratory/Chest: lungs clear Cardiovascular: normal rate, regular rhythm, no gallop/murmur Abdomen: soft, non tender, other - GT Extremities: no edema, other - left IJ catheter Laboratory Tests Test 03/04/19 14:45 03/05/19 09:00 Arterial Blood pH 7.462 (7.350-7.450) Arterial Blood Partial Pressure CO2 30.6 mmHg (35.0-45.0) L Arterial Blood Partial Pressure O2 122.2 mmHg (75.0-100.0) H Arterial Blood HCO3 21.4 mmol/L (22.0-26.0) L Arterial Blood Oxygen Saturation 97.9 % (95-100) Arterial Blood Base Excess -1.8 (-2-2) Rhett Test Positive White Blood Count 6.4 K/UL (4.8-10.8) Red Blood Count 3.61 M/UL (4.70-6.10) L Hemoglobin 8.8 G/DL (14.2-18.0) L Hematocrit 27.7 % (42.0-52.0) L Mean Corpuscular Volume 77 FL (80-99) L Mean Corpuscular Hemoglobin 24.4 PG (27.0-31.0) L Mean Corpuscular Hemoglobin Concent 31.9 G/DL (32.0-36.0) L Red Cell Distribution Width 14.7 % (11.6-14.8) Platelet Count 137 K/UL (150-450) L Mean Platelet Volume 6.9 FL (6.5-10.1) Neutrophils (%) (Auto) 70.9 % (45.0-75.0) Lymphocytes (%) (Auto) 15.4 % (20.0-45.0) L Monocytes (%) (Auto) 9.9 % (1.0-10.0) Eosinophils (%) (Auto) 2.6 % (0.0-3.0) Basophils (%) (Auto) 1.2 % (0.0-2.0) Sodium Level 145 MMOL/L (136-145) Potassium Level 4.6 MMOL/L (3.5-5.1) Chloride Level 113 MMOL/L (98-107) H Carbon Dioxide Level 28 MMOL/L (21-32) Anion Gap 4 mmol/L (5-15) L Blood Urea Nitrogen 10 mg/dL (7-18) Creatinine 0.6 MG/DL (0.55-1.30) Estimat Glomerular Filtration Rate mL/min (>60) Glucose Level 101 MG/DL (74-106) Calcium Level 7.2 MG/DL (8.5-10.1) L Vancomycin Level Trough 5.8 ug/mL (5.0-12.0) Current Medications Medications (Trade) Dose Ordered Sig/Mckenzie Route PRN Reason Start Time Stop Time Status Last Admin Dose Admin Albuterol/ Ipratropium (Albuterol/ Ipratropium) 3 ml Q4HRT HHN 02/28/19 11:00 03/05/19 10:59 03/05/19 07:49 Ceftriaxone Sodium 2 gm/ Dextrose 110 ml @ 220 mls/hr Q24H IVPB 03/03/19 13:00 03/10/19 12:59 03/04/19 13:02 Chlorhexidine Gluconate (Liz-Hex 2%) 1 applic DAILY@2000 TOPIC 03/01/19 20:00 03/31/19 19:59 03/04/19 20:02 Dopamine HCl/ Dextrose 250 ml @ 0 mls/hr Q24H IV 02/28/19 09:45 03/30/19 09:44 03/01/19 19:49 Heparin Sodium (Porcine) (Heparin 5000 units/ml) 5,000 units EVERY 12 HOURS SUBQ 02/28/19 21:00 03/30/19 20:59 03/05/19 09:48 Morphine Sulfate (Morphine Sulfate) 2 mg Q4H PRN IVP Severe Pain (Pain Scale 7-10) 03/04/19 15:45 03/11/19 15:44 Norepinephrine Bitartrate 4 mg/ Dextrose 250 ml @ 0 mls/hr Q24H IV 02/28/19 07:45 03/30/19 07:44 03/01/19 15:55 Pantoprazole (Protonix) 40 mg DAILY IVP 03/01/19 09:00 03/31/19 08:59 03/05/19 09:47 Potassium Chloride 40 meq/ Sodium Chloride 1,020 ml @ 75 mls/hr [id number] IV 03/02/19 21:30 04/01/19 21:29 03/05/19 03:38 Sodium Hypochlorite (Dakin's Quarter Strength) 1 applic DAILY TOPIC 03/01/19 13:00 03/31/19 12:59 03/05/19 09:48 Vancomycin HCl (Vanco rx to dose) 1 ea DAILY PRN MISC Per rx protocol 02/28/19 07:45 03/30/19 07:44 Vancomycin HCl 750 mg/Sodium Chloride 275 ml @ 183.333 mls/hr Q24H IVPB 03/02/19 10:00 03/07/19 09:59 03/05/19 09:46 Manan Gomez MD Mar 05, 2019 10:13
--- NOTE | 2019-03-05 11:00 | NUR ---
NURSE NOTES: Order received from Dr Mario for Venous/Arterial Duplex on UE for pitting edema of left UE. Order processed.
--- NOTE | 2019-03-05 12:25 | General Progress Note ---
Assessment/Plan Assessment/Plan Emerged from septic shock. Recovered from respiratory failure . L arm edema - R/O DVT-- Duplex VDRF - vent.Hope to extubate. Infected decubs - GS following Subjective Allergies: Coded Allergies: No Known Allergies (Unverified , 02/25/19) Subjective Extubated x 12h Objective Last 24 Hour Vital Signs Date Time Temp Pulse Resp B/P (MAP) Pulse Ox O2 Delivery O2 Flow Rate FiO2 03/05/19 12:00 97.7 93 25 118/65 (82) 97 03/05/19 11:02 Nasal Cannula 2.0 28 03/05/19 11:00 88 20 133/73 (93) 98 03/05/19 10:00 91 21 112/62 (79) 98 03/05/19 09:00 93 22 119/63 (81) 96 03/05/19 08:00 97.7 97 23 119/65 (83) 96 03/05/19 08:00 Nasal Cannula 2.0 03/05/19 08:00 92 03/05/19 07:58 96 20 99 Nasal Cannula 2.0 28 03/05/19 07:49 Venturi Mask 8.0 40 03/05/19 07:49 98 Venturi Mask 8.0 40 03/05/19 07:49 90 20 97 Venturi Mask 8.0 40 03/05/19 07:00 92 19 113/63 (80) 99 03/05/19 06:00 84 19 114/56 (75) 99 03/05/19 05:00 92 19 112/59 (76) 100 03/05/19 04:00 Venturi Mask 8.0 03/05/19 04:00 98.4 92 19 116/58 (77) 100 03/05/19 04:00 89 03/05/19 03:56 92 22 99 Venturi Mask 40 03/05/19 03:31 93 17 98 Venturi Mask 8.0 40 03/05/19 03:00 92 19 116/59 (78) 100 03/05/19 02:00 92 19 119/62 (81) 99 03/05/19 01:00 91 19 112/64 (80) 100 03/05/19 00:00 97.5 91 19 113/62 (79) 100 03/05/19 00:00 Venturi Mask 8.0 03/05/19 00:00 93 03/04/19 23:46 92 19 100 Venturi Mask 40 03/04/19 23:36 90 19 100 Venturi Mask 8.0 40 03/04/19 23:00 90 20 119/65 (83) 100 03/04/19 22:00 92 19 122/64 (83) 100 03/04/19 21:00 93 19 120/68 (85) 100 03/04/19 20:00 Venturi Mask 8.0 03/04/19 20:00 97.5 93 18 136/65 (88) 100 03/04/19 20:00 97 03/04/19 19:30 94 17 100 Venturi Mask 40 03/04/19 19:01 94 19 100 Venturi Mask 8.0 40 03/04/19 19:00 93 18 129/72 (91) 100 03/04/19 18:00 103 23 138/81 (100) 100 03/04/19 17:05 100 Venturi Mask 8.0 40 03/04/19 17:05 Venturi Mask 8.0 40 03/04/19 17:00 98 19 125/75 (92) 99 03/04/19 16:57 Venturi Mask 8.0 40 03/04/19 16:30 8.0 40 03/04/19 16:00 Endotracheal Tube 03/04/19 16:00 96 03/04/19 16:00 40 03/04/19 16:00 98.8 96 18 137/74 (95) 100 03/04/19 15:00 95 20 134/73 (93) 100 03/04/19 14:54 97 19 100 Mechanical Ventilator 40 03/04/19 14:42 97 19 100 Mechanical Ventilator 40 03/04/19 14:41 97 20 03/04/19 14:00 94 17 139/70 (93) 100 03/04/19 13:00 94 19 134/67 (89) 100 03/04/19 12:51 96 15 Intake and Output 03/04/19 03/05/19 19:00 07:00 Intake Total 1891.666 ml 1085 ml Output Total 1125 ml 2160 ml Balance 766.666 ml -1075 ml Intake IV Total 1486.666 ml 785 ml Tube Feeding 405 ml 300 ml Output Urine Total 1125 ml 2160 ml Laboratory Tests 03/04/19 14:45: Arterial Blood pH 7.462H, Arterial Blood Partial Pressure CO2 30.6L, Arterial Blood Partial Pressure O2 122.2H, Arterial Blood HCO3 21.4L, Arterial Blood Oxygen Saturation 97.9, Arterial Blood Base Excess -1.8, Rhett Test Positive 03/05/19 09:00: White Blood Count 6.4, Red Blood Count 3.61L, Hemoglobin 8.8L, Hematocrit 27.7L , Mean Corpuscular Volume 77L, Mean Corpuscular Hemoglobin 24.4L, Mean Corpuscular Hemoglobin Concent 31.9L, Red Cell Distribution Width 14.7, Platelet Count 137L, Mean Platelet Volume 6.9, Neutrophils (%) (Auto) 70.9, Lymphocytes (%) (Auto) 15.4L, Monocytes (%) (Auto) 9.9, Eosinophils (%) (Auto) 2.6, Basophils (%) (Auto) 1.2, Sodium Level 145, Potassium Level 4.6, Chloride Level 113H, Carbon Dioxide Level 28, Anion Gap 4L, Blood Urea Nitrogen 10, Creatinine 0.6, Estimat Glomerular Filtration Rate , Glucose Level 101, Calcium Level 7.2L, Vancomycin Level Trough 5.8 Height (Feet): 5 Height (Inches): 4.00 Weight (Pounds): 122 Objective Extubated. On O2 2 L /min NC CV RR Lungs B Ronchi. Abd SNT. BS + E Contractures. L arm +3 edema. Has L IJ Central Line Sacral decub. Neuro - obtunded - non focal. FC cloudy, concentrated urine. Ervin Mario MD Mar 05, 2019 12:25
[2019-03-05] MEDS ORDERED: Albuterol/Ipratropium 3ml neb HHN PRN (12:30)
--- NOTE | 2019-03-05 12:30 | NUR ---
NURSE NOTES: Pt is resting in semi-steward's position. On 2L of oxygen via nasal cannula with O2 sat 96-100%. satellite project site monitor displays normal sinus rhythm. Venous and Arterial duplex resulted negative per industrial controls technician at bedside, (ordered for left upper extremity edema). GT feeding increased to 45ml/hour, slowly being titrated to goal of 55/hour per dietary, at 10mL Q4-6hrs. Pt is tolerating feeding well with no episode or s/s of nausea/vomiting and with 0 residual. Anderson catheter is draining lightly cloudy/yellow urine. Bilateral soft wrist restraints are in place, with skin integrity at restraint-site within normal limits. Pt continues to receive 0.45%NS with KCL 40meq @75mL/hour via left IJ central line. Vital signs are within normal limits. Will continue to monitor.
[2019-03-05] MEDS: cefTRIAXone 2gm/D5W 110ml IVPB SCH ×2 (13:47)
--- NOTE | 2019-03-05 14:00 | NUR ---
NURSE NOTES: Pt was seen by Dr Mario. No new orders at this time. Oral care given. Pt continues on 2L of oxygen via nasal cannula, with no respiratory distress, with O2sat 97-100%. No signs/symptoms of pain or discomfort noted/present. Pt repositioned.
--- NOTE | 2019-03-05 18:00 | NUR ---
NURSE NOTES: Pt cleaned, repositioned, oral care done. Wound care done per order/dressings changed. Jevity GT feeding increased to 55ml/hour goal per order, pt is tolerating well with no residual and no s/s of nausea/vomiting. Pt had BM soft/brown/formed. Anderson catheter is draining lightly cloudy/yellow urine, with hourly output of 100-300/hour. wholesale agronomist displays NSR, with O2sat 97-100% on 2L of oxygen via nasal cannula. IV access/left IJ continues to infuse 0.45%NS with 40meq KCL at 75ml/hour per order.
--- NOTE | 2019-03-05 18:15 | NUR ---
NURSE NOTES: Pt was assessed by Dr Doty. No new orders at this time.
--- NOTE | 2019-03-05 19:05 | NUR ---
HAND-OFF: Report given to Ramon GARCIA. Pt is resting in bed in stable condition. Endorsed plan of care.
--- NOTE | 2019-03-05 19:27 | Surgery Progress Note ---
Surgery Progress Note Subjective Procedure Performed endotracheal tube intubation Additional Comments extubated and doing well. feeds going well. labs improved. overall improved. Objective Last 24 Hour Vital Signs Date Time Temp Pulse Resp B/P (MAP) Pulse Ox O2 Delivery O2 Flow Rate FiO2 03/05/19 19:00 97 24 130/77 (94) 100 03/05/19 18:00 91 22 129/72 (91) 97 03/05/19 18:00 Nasal Cannula 2.0 03/05/19 17:00 89 27 129/71 (90) 96 03/05/19 16:00 98.0 88 25 126/69 (88) 98 03/05/19 16:00 Nasal Cannula 2.0 03/05/19 16:00 88 03/05/19 15:08 90 20 Nasal Cannula 2.0 28 03/05/19 15:00 90 26 133/67 (89) 97 03/05/19 14:00 90 25 115/78 (90) 97 03/05/19 13:00 90 25 88/67 (74) 97 03/05/19 12:00 92 03/05/19 12:00 97.7 93 25 118/65 (82) 97 03/05/19 12:00 Nasal Cannula 2.0 03/05/19 11:02 Nasal Cannula 2.0 28 03/05/19 11:00 88 20 133/73 (93) 98 03/05/19 10:00 91 21 112/62 (79) 98 03/05/19 09:00 93 22 119/63 (81) 96 03/05/19 08:00 97.7 97 23 119/65 (83) 96 03/05/19 08:00 Nasal Cannula 2.0 03/05/19 08:00 92 03/05/19 07:58 96 20 99 Nasal Cannula 2.0 28 03/05/19 07:49 Venturi Mask 8.0 40 03/05/19 07:49 98 Venturi Mask 8.0 40 03/05/19 07:49 90 20 97 Venturi Mask 8.0 40 03/05/19 07:00 92 19 113/63 (80) 99 03/05/19 06:00 84 19 114/56 (75) 99 03/05/19 05:00 92 19 112/59 (76) 100 03/05/19 04:00 Venturi Mask 8.0 03/05/19 04:00 98.4 92 19 116/58 (77) 100 03/05/19 04:00 89 03/05/19 03:56 92 22 99 Venturi Mask 40 03/05/19 03:31 93 17 98 Venturi Mask 8.0 40 03/05/19 03:00 92 19 116/59 (78) 100 03/05/19 02:00 92 19 119/62 (81) 99 03/05/19 01:00 91 19 112/64 (80) 100 03/05/19 00:00 97.5 91 19 113/62 (79) 100 03/05/19 00:00 Venturi Mask 8.0 03/05/19 00:00 93 03/04/19 23:46 92 19 100 Venturi Mask 40 03/04/19 23:36 90 19 100 Venturi Mask 8.0 40 03/04/19 23:00 90 20 119/65 (83) 100 03/04/19 22:00 92 19 122/64 (83) 100 03/04/19 21:00 93 19 120/68 (85) 100 03/04/19 20:00 Venturi Mask 8.0 03/04/19 20:00 97.5 93 18 136/65 (88) 100 03/04/19 20:00 97 03/04/19 19:30 94 17 100 Venturi Mask 40 I&O Intake and Output 03/04/19 03/05/19 18:59 06:59 Intake Total 1916.666 ml 1140 ml Output Total 1085 ml 2050 ml Balance 831.666 ml -910 ml Intake IV Total 1486.666 ml 860 ml Tube Feeding 430 ml 280 ml Output Urine Total 1085 ml 2050 ml Dressing: saturated Wound: other Drains: other Cardiovascular: RSR Respiratory: clear, decreased breath sounds Abdomen: soft, non-tender, present bowel sounds, non-distended Extremities: no tenderness, no cyanosis Laboratory Tests Test 03/05/19 09:00 White Blood Count 6.4 K/UL (4.8-10.8) Red Blood Count 3.61 M/UL (4.70-6.10) L Hemoglobin 8.8 G/DL (14.2-18.0) L Hematocrit 27.7 % (42.0-52.0) L Mean Corpuscular Volume 77 FL (80-99) L Mean Corpuscular Hemoglobin 24.4 PG (27.0-31.0) L Mean Corpuscular Hemoglobin Concent 31.9 G/DL (32.0-36.0) L Red Cell Distribution Width 14.7 % (11.6-14.8) Platelet Count 137 K/UL (150-450) L Mean Platelet Volume 6.9 FL (6.5-10.1) Neutrophils (%) (Auto) 70.9 % (45.0-75.0) Lymphocytes (%) (Auto) 15.4 % (20.0-45.0) L Monocytes (%) (Auto) 9.9 % (1.0-10.0) Eosinophils (%) (Auto) 2.6 % (0.0-3.0) Basophils (%) (Auto) 1.2 % (0.0-2.0) Sodium Level 145 MMOL/L (136-145) Potassium Level 4.6 MMOL/L (3.5-5.1) Chloride Level 113 MMOL/L (98-107) H Carbon Dioxide Level 28 MMOL/L (21-32) Anion Gap 4 mmol/L (5-15) L Blood Urea Nitrogen 10 mg/dL (7-18) Creatinine 0.6 MG/DL (0.55-1.30) Estimat Glomerular Filtration Rate mL/min (>60) Glucose Level 101 MG/DL (74-106) Calcium Level 7.2 MG/DL (8.5-10.1) L Vancomycin Level Trough 5.8 ug/mL (5.0-12.0) Plan Problems: (1) Ulcer of lower extremity excluding decubitus ulcer Assessment & Plan: Pt presented on admission with contractures both lower ext with multiple necrotic wounds L trochanter,R tibia, and L foot. Lateral L foot (L)3.5cm x (W)11cm.90%Soft necrosis with surrounding slough along borders.Wound is malodorous. Small amt brown exudate noted.Greyish colour periwound. L Lateral metatarsal to L hallux (L)4.3cm x (W)6.9cm . Base of wound necrotic with area of fluctuance at lateral aspect L1st metatarsal.Wound is malodorous with small amt brownish exudate Greyish colour periwound. Lateral L heel (L)3cm x (W)6.6cm.100%Unstable necrosis base of wound with surrounding mixed soft slough with erythema.Wound is malodorous. Wound is malodorous with small amt brownish exudate. Plantar L foot (L)2.5cm x (W)1.5cm Unstable necrosis with indurated borders. No exudate noted. All 5 metatarsals are burgess in color. Full thickness pressure injury R tibia(L)6.5cm x (W)1cm. elongated wound with indurated red borders,10% necrosis at proximal end with #2 areas of slough- approx 10% with erythema that is dry remaining base of wound .No odor noted. Non-blanchable erythema with scattered purple areas medial L tibia(L)5.7cm x (W) 4.5cm.Site without fluctuance or induration .No elevation in skin temp. Dorsal R 2nd metatarsal head maroon with fluctuance.(L)0.8cm x (W)1.3cm. R heel boggy with non-blanchable erythema. Pressure injury to L trochanter 90% necrotic,dry with pink epithelialized borders. Dark skin tone without erythema or induration periwound .In close proximity is an area with pink epithelial tissue with a linear area in center that is brown but dry and adherent to base. Resolving pressure injury to sacrum.95% epithelial at base of wound .Small area at coccyx measuring(L)0.4cm x (W)0.3cm with yellow slough.No exudate noted. Areas of hyperpigmentation scarring noted to R and L ischial areas. Tx.Plan: Cleanse L trochanter with Saline. Apply Dakins 1/4% soaked gauze to L trochanter.Apply Cavilon Skin Barrier periwound. Cover with Optifoam drsg. Change daily and PRN. Cleanse R tibia with Saline.Apply Dakins 1/4% soaked gauze. Cavilon Skin Barrier periwound.Cover with Optifoam drsg. Change Daily and prn. Apply Cavilon Skin Barrier to L medial /idalia L tibia .Cover with Optifoam drsg. Change every 7 days and prn. Apply Cavilon Skin Barrier to R heel. Cover with Optifoam drsg.Change every 7 days and PRN. Cleanse coccygeal wound with saline. Apply Therahoney.Apply Triad Paste periwound to sacrum. Cover with Optifoam drsg. Change Daily and prn. APM/KAVON Mattress overlay. Reposition at least every 2hours or as tolerated. Place Pillow between knees . Off-load heels with pillow. (2) Septic shock Assessment & Plan: Intubated for airway protection in ICU - now extubated and doing well cont with O2 as nneded CXR trend labs off pressors fluids will monitor prognosis guarded (3) Asymptomatic bacteriuria (4) ARF (acute renal failure) (5) Healthcare-associated pneumonia (6) Acute and chronic respiratory failure with hypoxia (7) Anemia (8) Alzheimer disease (9) Dysphagia (10) Sepsis (11) Pneumonia (12) Gastroparesis (13) Severe sepsis (14) Encounter for PEG (percutaneous endoscopic gastrostomy) (15) Decubitus ulcer of trochanteric region of left hip Rios Quiñones Mar 05, 2019 19:27
--- NOTE | 2019-03-05 19:30 | NUR ---
NURSE NOTES: Recvd.quiet in bed,awake,verbally responsive,S/P extubated yesterday.On 2L/NC inh.Sat.96-98%.Stiff and contracted.Pos.chg.Occ.forget limitations.Bila.soft wrist restraints on prev.self injury.Enc.deep breathing/coughing ex.GT-Feeding in progress,IV inf.viaTLC (L)IJ.F/Cath.patent diuresis well.See I/O.Bila.upper ext.swollen kept elevated.
[2019-03-05] MEDS: Dyna-Hex 2% Top Sol 2oz TOPIC SCH (19:58)
[2019-03-05] MEDS ORDERED: Tubing IV Secondary IV ONE (21:40)
[2019-03-05] MEDS ORDERED: 1/2 NS 1000ml IV ONE (21:43)
[2019-03-05] MEDS ORDERED: D5W 275ml ONE (21:45)
--- NOTE | 2019-03-05 22:00 | NUR ---
NURSE NOTES: HS care rendered.Pos.chg.Backrub with lotion.Due meds admin.Cont.on IV Hydration.Angel.GT-Feeding.
--- NOTE | 2019-03-05 22:01 | Cardiology Progress Note ---
Assessment/Plan Assessment/Plan the patient is recovering from septic shock, and he is stable from cardiac standpoint, off pressors Subjective Subjective the patient is extubated, he is breathing comfortably, more alert and opens his eyes, but not communicating Objective Last 24 Hour Vital Signs Date Time Temp Pulse Resp B/P (MAP) Pulse Ox O2 Delivery O2 Flow Rate FiO2 03/05/19 20:00 98 03/05/19 20:00 98.6 98 17 141/70 (93) 100 03/05/19 20:00 Nasal Cannula 2.0 03/05/19 19:00 97 24 130/77 (94) 100 03/05/19 18:00 91 22 129/72 (91) 97 03/05/19 18:00 Nasal Cannula 2.0 03/05/19 17:00 89 27 129/71 (90) 96 03/05/19 16:00 98.0 88 25 126/69 (88) 98 03/05/19 16:00 Nasal Cannula 2.0 03/05/19 16:00 88 03/05/19 15:08 90 20 Nasal Cannula 2.0 28 03/05/19 15:00 90 26 133/67 (89) 97 03/05/19 14:00 90 25 115/78 (90) 97 03/05/19 13:00 90 25 88/67 (74) 97 03/05/19 12:00 92 03/05/19 12:00 97.7 93 25 118/65 (82) 97 03/05/19 12:00 Nasal Cannula 2.0 03/05/19 11:02 Nasal Cannula 2.0 28 03/05/19 11:00 88 20 133/73 (93) 98 03/05/19 10:00 91 21 112/62 (79) 98 03/05/19 09:00 93 22 119/63 (81) 96 03/05/19 08:00 97.7 97 23 119/65 (83) 96 03/05/19 08:00 Nasal Cannula 2.0 03/05/19 08:00 92 03/05/19 07:58 96 20 99 Nasal Cannula 2.0 28 03/05/19 07:49 Venturi Mask 8.0 40 03/05/19 07:49 98 Venturi Mask 8.0 40 03/05/19 07:49 90 20 97 Venturi Mask 8.0 40 03/05/19 07:00 92 19 113/63 (80) 99 03/05/19 06:00 84 19 114/56 (75) 99 03/05/19 05:00 92 19 112/59 (76) 100 03/05/19 04:00 Venturi Mask 8.0 03/05/19 04:00 98.4 92 19 116/58 (77) 100 03/05/19 04:00 89 03/05/19 03:56 92 22 99 Venturi Mask 40 03/05/19 03:31 93 17 98 Venturi Mask 8.0 40 03/05/19 03:00 92 19 116/59 (78) 100 03/05/19 02:00 92 19 119/62 (81) 99 03/05/19 01:00 91 19 112/64 (80) 100 03/05/19 00:00 97.5 91 19 113/62 (79) 100 03/05/19 00:00 Venturi Mask 8.0 03/05/19 00:00 93 03/04/19 23:46 92 19 100 Venturi Mask 40 03/04/19 23:36 90 19 100 Venturi Mask 8.0 40 03/04/19 23:00 90 20 119/65 (83) 100 General Appearance: lethargic EENT: PERRL/EOMI Neck: no JVD Rhythm: NSR Cardiovascular: normal rate Respiratory/Chest: lungs clear Abdomen: decreased bowel sounds, other - g-tube Extremities: non-tender Intake and Output 03/04/19 03/05/19 18:59 06:59 Intake Total 1916.666 ml 1140 ml Output Total 1085 ml 2050 ml Balance 831.666 ml -910 ml Intake IV Total 1486.666 ml 860 ml Tube Feeding 430 ml 280 ml Output Urine Total 1085 ml 2050 ml Laboratory Tests Test 03/05/19 09:00 White Blood Count 6.4 K/UL (4.8-10.8) Red Blood Count 3.61 M/UL (4.70-6.10) L Hemoglobin 8.8 G/DL (14.2-18.0) L Hematocrit 27.7 % (42.0-52.0) L Mean Corpuscular Volume 77 FL (80-99) L Mean Corpuscular Hemoglobin 24.4 PG (27.0-31.0) L Mean Corpuscular Hemoglobin Concent 31.9 G/DL (32.0-36.0) L Red Cell Distribution Width 14.7 % (11.6-14.8) Platelet Count 137 K/UL (150-450) L Mean Platelet Volume 6.9 FL (6.5-10.1) Neutrophils (%) (Auto) 70.9 % (45.0-75.0) Lymphocytes (%) (Auto) 15.4 % (20.0-45.0) L Monocytes (%) (Auto) 9.9 % (1.0-10.0) Eosinophils (%) (Auto) 2.6 % (0.0-3.0) Basophils (%) (Auto) 1.2 % (0.0-2.0) Sodium Level 145 MMOL/L (136-145) Potassium Level 4.6 MMOL/L (3.5-5.1) Chloride Level 113 MMOL/L (98-107) H Carbon Dioxide Level 28 MMOL/L (21-32) Anion Gap 4 mmol/L (5-15) L Blood Urea Nitrogen 10 mg/dL (7-18) Creatinine 0.6 MG/DL (0.55-1.30) Estimat Glomerular Filtration Rate mL/min (>60) Glucose Level 101 MG/DL (74-106) Calcium Level 7.2 MG/DL (8.5-10.1) L Vancomycin Level Trough 5.8 ug/mL (5.0-12.0) Sally Doty MD Mar 05, 2019 22:01
[2019-03-06] VITALS (18 sets, daily range): BP systolic 104–157; BP diastolic 68–96
--- NOTE | 2019-03-06 00:10 | NUR ---
NURSE NOTES: See V/S.Scope rhythm same.Pos.chg.Neuro status unchanged.No resp.distress.Cont.plan of care.
--- NOTE | 2019-03-06 02:15 | NUR ---
NURSE NOTES: Repositioned,kept comfortable.Suctioned nasally tk.yellowish sec.GT-Feeding Angel.
--- NOTE | 2019-03-06 04:20 | NUR ---
NURSE NOTES: No Resp.distress.Sat.96-98% on 2L/NC.VSS.Scope Rhythm same.Pos. chg.q2hrs.Fareed Severino chg.Bedsores Tx done,collin montenegrog.Angel.Gt-Feeding.See I/O.
[2019-03-06] MEDS: Potassium Chloride 40 MEQ in 1/2 NS 1000ml 1,000 ML IV SCH ×3 (06:06→20:33)
--- NOTE | 2019-03-06 07:30 | NUR ---
HAND-OFF: Report given to JOSE STEVE.
--- NOTE | 2019-03-06 07:34 | NUR ---
NURSE NOTES: Received patient from JOSE Navarro. Pt is sleeping comfortably on bed, all brakes engaged, 3 siderails up. Pt open eyes spontaneously, awaken easily with voice, mumbles when asked questions by staffs. Pt is on nasal canula 2L, tolerating well with SAT 95-100%. L Internal Jugular TLC with 1/2 NS 40mEq KCl running. IV site intact, line patent. F-tub patent, site intact running Jivity 1.2 at 55 ml/hr, no residual. Anderson is draining with gravity, output 150ml at this time. Wounds on L foot and bilateral trochanters, and L lower leg checked, bandaged by maintenance supervisor 2nd shift nurse. Vital signs at this time: Axillary temp 98.3F, BP 117/74, HR 100, RR 22, SAT 98%. Will cont to monitor.
[2019-03-06] MEDS: DOPamine 400mg/250ml 250 ML IV SCH (07:51)
[2019-03-06] MEDS: Pantoprazole Inj IVP SCH (08:31)
[2019-03-06] MEDS: Dakin's 0.125% Soln (Quarter Strength) 16oz TOPIC SCH (08:31)
[2019-03-06] MEDS: Heparin 5000 units/ml inj SUBQ SCH ×2 (08:32→20:20)
--- NOTE | 2019-03-06 08:52 | NUR ---
NURSE NOTES: Pt had a bowel movement. Soft brown stool noted. Pt cleaned and linen changed.
--- NOTE | 2019-03-06 10:20 | Infectious Diseases Prog Note ---
Assessment/Plan Assessment/Plan antibiotics : ceftriaxone A 1. proteus sepsis secondary to UTI 2. proteus UTI 3. leucocytosis resolved 4. shock resolved 5. respiratory failure resolved 6. schizophrenia 7. renal failure improving 8. dementia P 1. continue iv ceftriaxone 3 more days 2. will follow up cultures Subjective ROS Limited/Unobtainable: Yes Allergies: Coded Allergies: No Known Allergies (Unverified , 02/25/19) Objective Vital Signs Last 24 Hour Vital Signs Date Time Temp Pulse Resp B/P (MAP) Pulse Ox O2 Delivery O2 Flow Rate FiO2 03/06/19 10:00 102 27 133/76 (95) 99 03/06/19 09:00 101 25 111/74 (86) 98 03/06/19 08:04 98 Nasal Cannula 2.0 28 03/06/19 08:04 Nasal Cannula 2.0 28 03/06/19 08:02 98 22 129/77 (94) 98 03/06/19 08:00 96 03/06/19 08:00 Nasal Cannula 2.0 03/06/19 07:51 117/74 03/06/19 07:45 117/74 03/06/19 07:00 100 21 117/74 (88) 97 03/06/19 06:00 100 24 133/69 (90) 97 03/06/19 05:00 101 28 125/72 (89) 96 03/06/19 04:00 98.3 101 27 118/70 (86) 97 03/06/19 04:00 Nasal Cannula 2.0 03/06/19 04:00 101 03/06/19 03:00 104 29 109/71 (84) 96 03/06/19 02:00 104 03/06/19 02:00 98.5 104 25 125/96 (106) 96 03/06/19 01:00 106 27 130/71 (90) 98 03/06/19 00:00 111 03/06/19 00:00 Nasal Cannula 2.0 03/06/19 00:00 111 26 126/74 (91) 98 03/05/19 23:00 100 23 161/66 (97) 97 03/05/19 23:00 100 27 100 Nasal Cannula 2.0 28 03/05/19 22:52 102 24 97 Nasal Cannula 2.0 28 03/05/19 22:33 Nasal Cannula 2.0 28 03/05/19 22:32 100 Nasal Cannula 2.0 28 03/05/19 22:00 101 26 144/74 (97) 98 03/05/19 21:00 100 25 144/74 (97) 98 03/05/19 20:00 98 03/05/19 20:00 98.6 98 17 141/70 (93) 100 03/05/19 20:00 Nasal Cannula 2.0 03/05/19 19:00 97 24 130/77 (94) 100 03/05/19 18:00 91 22 129/72 (91) 97 03/05/19 18:00 Nasal Cannula 2.0 03/05/19 17:00 89 27 129/71 (90) 96 03/05/19 16:00 98.0 88 25 126/69 (88) 98 03/05/19 16:00 Nasal Cannula 2.0 03/05/19 16:00 88 03/05/19 15:08 90 20 Nasal Cannula 2.0 28 03/05/19 15:00 90 26 133/67 (89) 97 03/05/19 14:00 90 25 115/78 (90) 97 03/05/19 13:00 90 25 88/67 (74) 97 03/05/19 12:00 92 03/05/19 12:00 97.7 93 25 118/65 (82) 97 03/05/19 12:00 Nasal Cannula 2.0 03/05/19 11:02 Nasal Cannula 2.0 28 03/05/19 11:00 88 20 133/73 (93) 98 Height (Feet): 5 Height (Inches): 4.00 Weight (Pounds): 119 Respiratory/Chest: lungs clear Cardiovascular: normal rate, regular rhythm, no gallop/murmur Abdomen: soft, non tender, other - GT Extremities: no edema, other - left IJ catheter Current Medications Medications (Trade) Dose Ordered Sig/Mckenzie Route PRN Reason Start Time Stop Time Status Last Admin Dose Admin Albuterol/ Ipratropium (Albuterol/ Ipratropium) 3 ml Q4HRT PRN HHN Shortness of Breath 03/05/19 12:30 03/10/19 12:29 03/05/19 22:55 Ceftriaxone Sodium 2 gm/ Dextrose 110 ml @ 220 mls/hr Q24H IVPB 03/03/19 13:00 03/10/19 12:59 03/05/19 13:47 Chlorhexidine Gluconate (Liz-Hex 2%) 1 applic DAILY@2000 TOPIC 03/01/19 20:00 03/31/19 19:59 03/05/19 19:58 Dopamine HCl/ Dextrose 250 ml @ 0 mls/hr Q24H IV 02/28/19 09:45 03/30/19 09:44 03/01/19 19:49 Heparin Sodium (Porcine) (Heparin 5000 units/ml) 5,000 units EVERY 12 HOURS SUBQ 02/28/19 21:00 03/30/19 20:59 03/06/19 08:32 Morphine Sulfate (Morphine Sulfate) 2 mg Q4H PRN IVP Severe Pain (Pain Scale 7-10) 03/04/19 15:45 03/11/19 15:44 Norepinephrine Bitartrate 4 mg/ Dextrose 250 ml @ 0 mls/hr Q24H IV 02/28/19 07:45 03/30/19 07:44 03/01/19 15:55 Pantoprazole (Protonix) 40 mg DAILY IVP 03/01/19 09:00 03/31/19 08:59 03/06/19 08:31 Potassium Chloride 40 meq/ Sodium Chloride 1,020 ml @ 75 mls/hr [id number] IV 03/02/19 21:30 04/01/19 21:29 03/06/19 06:06 Sodium Hypochlorite (Dakin's Quarter Strength) 1 applic DAILY TOPIC 03/01/19 13:00 03/31/19 12:59 03/06/19 08:31 Manan Gomez MD Mar 06, 2019 10:20
--- NOTE | 2019-03-06 11:02 | NUR ---
NURSE NOTES: Pt sleeping, all brakes are engaged. Medications running without any difficulty. IV line intact. Will cont to monitor.
--- NOTE | 2019-03-06 13:02 | NUR ---
CRITICAL CARE PHYSICIAN ASSISTANTBACK SIZER SI:SEVER SEPSIS . ACUTE ON CHRONIC RESPIRATORY FAILURE WITH HYPOXIA . PNEUMONIA VS: BP 132/68, P 102, T 98.3, RR 27, SpO2 100 on 2.0L O2 NC IS:POTASSIUM CHLORIDE 1020ml IV SODIUM HYPOCHLORITE TOPICAL PROTONIX 40mg IVP HEPARIN SUBQ ICU STATUS
[2019-03-06] MEDS: cefTRIAXone 2gm/D5W 110ml IVPB SCH ×2 (13:06)
--- NOTE | 2019-03-06 13:14 | Surgery Progress Note ---
Surgery Progress Note Subjective Procedure Performed endotracheal tube intubation Additional Comments doing well since extubation. labs noted. anemia. leukocytosis improved. no bmp yet. exam stable. tachy at times Objective Last 24 Hour Vital Signs Date Time Temp Pulse Resp B/P (MAP) Pulse Ox O2 Delivery O2 Flow Rate FiO2 03/06/19 12:00 93 23 132/68 (89) 100 03/06/19 12:00 93 03/06/19 12:00 Nasal Cannula 2.0 03/06/19 11:00 98 25 120/69 (86) 99 03/06/19 10:00 102 27 133/76 (95) 99 03/06/19 09:00 101 25 111/74 (86) 98 03/06/19 08:04 98 Nasal Cannula 2.0 28 03/06/19 08:04 Nasal Cannula 2.0 28 03/06/19 08:02 98 22 129/77 (94) 98 03/06/19 08:00 96 03/06/19 08:00 Nasal Cannula 2.0 03/06/19 07:51 117/74 03/06/19 07:45 117/74 03/06/19 07:00 100 21 117/74 (88) 97 03/06/19 06:00 100 24 133/69 (90) 97 03/06/19 05:00 101 28 125/72 (89) 96 03/06/19 04:00 98.3 101 27 118/70 (86) 97 03/06/19 04:00 Nasal Cannula 2.0 03/06/19 04:00 101 03/06/19 03:00 104 29 109/71 (84) 96 03/06/19 02:00 104 03/06/19 02:00 98.5 104 25 125/96 (106) 96 03/06/19 01:00 106 27 130/71 (90) 98 03/06/19 00:00 111 03/06/19 00:00 Nasal Cannula 2.0 03/06/19 00:00 111 26 126/74 (91) 98 03/05/19 23:00 100 23 161/66 (97) 97 03/05/19 23:00 100 27 100 Nasal Cannula 2.0 28 03/05/19 22:52 102 24 97 Nasal Cannula 2.0 28 03/05/19 22:33 Nasal Cannula 2.0 28 03/05/19 22:32 100 Nasal Cannula 2.0 28 03/05/19 22:00 101 26 144/74 (97) 98 03/05/19 21:00 100 25 144/74 (97) 98 03/05/19 20:00 98 03/05/19 20:00 98.6 98 17 141/70 (93) 100 03/05/19 20:00 Nasal Cannula 2.0 03/05/19 19:00 97 24 130/77 (94) 100 03/05/19 18:00 91 22 129/72 (91) 97 03/05/19 18:00 Nasal Cannula 2.0 03/05/19 17:00 89 27 129/71 (90) 96 03/05/19 16:00 98.0 88 25 126/69 (88) 98 03/05/19 16:00 Nasal Cannula 2.0 03/05/19 16:00 88 03/05/19 15:08 90 20 Nasal Cannula 2.0 28 03/05/19 15:00 90 26 133/67 (89) 97 03/05/19 14:00 90 25 115/78 (90) 97 I&O Intake and Output 03/05/19 03/06/19 19:00 07:00 Intake Total 1660 ml 1590 ml Output Total 1790 ml 1220 ml Balance -130 ml 370 ml Intake Free Water 30 ml IV Total 1120 ml 900 ml Tube Feeding 540 ml 660 ml Output Urine Total 1790 ml 1220 ml # Bowel Movements 1 Drains: other Cardiovascular: RSR Respiratory: decreased breath sounds Abdomen: soft, present bowel sounds, non-distended Extremities: no tenderness, no cyanosis Plan Problems: (1) Ulcer of lower extremity excluding decubitus ulcer Assessment & Plan: Pt presented on admission with contractures both lower ext with multiple necrotic wounds L trochanter,R tibia, and L foot. Lateral L foot (L)3.5cm x (W)11cm.90%Soft necrosis with surrounding slough along borders.Wound is malodorous. Small amt brown exudate noted.Greyish colour periwound. L Lateral metatarsal to L hallux (L)4.3cm x (W)6.9cm . Base of wound necrotic with area of fluctuance at lateral aspect L1st metatarsal.Wound is malodorous with small amt brownish exudate Greyish colour periwound. Lateral L heel (L)3cm x (W)6.6cm.100%Unstable necrosis base of wound with surrounding mixed soft slough with erythema.Wound is malodorous. Wound is malodorous with small amt brownish exudate. Plantar L foot (L)2.5cm x (W)1.5cm Unstable necrosis with indurated borders. No exudate noted. All 5 metatarsals are burgess in color. Full thickness pressure injury R tibia(L)6.5cm x (W)1cm. elongated wound with indurated red borders,10% necrosis at proximal end with #2 areas of slough- approx 10% with erythema that is dry remaining base of wound .No odor noted. Non-blanchable erythema with scattered purple areas medial L tibia(L)5.7cm x (W) 4.5cm.Site without fluctuance or induration .No elevation in skin temp. Dorsal R 2nd metatarsal head maroon with fluctuance.(L)0.8cm x (W)1.3cm. R heel boggy with non-blanchable erythema. Pressure injury to L trochanter 90% necrotic,dry with pink epithelialized borders. Dark skin tone without erythema or induration periwound .In close proximity is an area with pink epithelial tissue with a linear area in center that is brown but dry and adherent to base. Resolving pressure injury to sacrum.95% epithelial at base of wound .Small area at coccyx measuring(L)0.4cm x (W)0.3cm with yellow slough.No exudate noted. Areas of hyperpigmentation scarring noted to R and L ischial areas. Tx.Plan: Cleanse L trochanter with Saline. Apply Dakins 1/4% soaked gauze to L trochanter.Apply Cavilon Skin Barrier periwound. Cover with Optifoam drsg. Change daily and PRN. Cleanse R tibia with Saline.Apply Dakins 1/4% soaked gauze. Cavilon Skin Barrier periwound.Cover with Optifoam drsg. Change Daily and prn. Apply Cavilon Skin Barrier to L medial /idalia L tibia .Cover with Optifoam drsg. Change every 7 days and prn. Apply Cavilon Skin Barrier to R heel. Cover with Optifoam drsg.Change every 7 days and PRN. Cleanse coccygeal wound with saline. Apply Therahoney.Apply Triad Paste periwound to sacrum. Cover with Optifoam drsg. Change Daily and prn. APM/KAVON Mattress overlay. Reposition at least every 2hours or as tolerated. Place Pillow between knees . Off-load heels with pillow. (2) Septic shock Assessment & Plan: Intubated for airway protection in ICU - now extubated and doing well cont with O2 as nneded CXR trend labs off pressors fluids will monitor prognosis guarded (3) Asymptomatic bacteriuria (4) ARF (acute renal failure) (5) Healthcare-associated pneumonia (6) Acute and chronic respiratory failure with hypoxia (7) Anemia (8) Alzheimer disease (9) Dysphagia (10) Sepsis (11) Pneumonia (12) Gastroparesis (13) Severe sepsis (14) Encounter for PEG (percutaneous endoscopic gastrostomy) (15) Decubitus ulcer of trochanteric region of left hip Rios Quiñones Mar 06, 2019 13:14
--- NOTE | 2019-03-06 13:15 | General Progress Note ---
Assessment/Plan Assessment/Plan Emerged from septic shock. Recovered from respiratory failure . L arm edema - R/O DVT-- Duplex Neg. Infected decubs - GS following To [facility]. Subjective Allergies: Coded Allergies: No Known Allergies (Unverified , 02/25/19) Subjective Extubated x 36h Objective Last 24 Hour Vital Signs Date Time Temp Pulse Resp B/P (MAP) Pulse Ox O2 Delivery O2 Flow Rate FiO2 03/06/19 12:00 93 23 132/68 (89) 100 03/06/19 12:00 93 03/06/19 12:00 Nasal Cannula 2.0 03/06/19 11:00 98 25 120/69 (86) 99 03/06/19 10:00 102 27 133/76 (95) 99 03/06/19 09:00 101 25 111/74 (86) 98 03/06/19 08:04 98 Nasal Cannula 2.0 28 03/06/19 08:04 Nasal Cannula 2.0 28 03/06/19 08:02 98 22 129/77 (94) 98 03/06/19 08:00 96 03/06/19 08:00 Nasal Cannula 2.0 03/06/19 07:51 117/74 03/06/19 07:45 117/74 03/06/19 07:00 100 21 117/74 (88) 97 03/06/19 06:00 100 24 133/69 (90) 97 03/06/19 05:00 101 28 125/72 (89) 96 03/06/19 04:00 98.3 101 27 118/70 (86) 97 03/06/19 04:00 Nasal Cannula 2.0 03/06/19 04:00 101 03/06/19 03:00 104 29 109/71 (84) 96 03/06/19 02:00 104 03/06/19 02:00 98.5 104 25 125/96 (106) 96 03/06/19 01:00 106 27 130/71 (90) 98 03/06/19 00:00 111 03/06/19 00:00 Nasal Cannula 2.0 03/06/19 00:00 111 26 126/74 (91) 98 03/05/19 23:00 100 23 161/66 (97) 97 03/05/19 23:00 100 27 100 Nasal Cannula 2.0 28 03/05/19 22:52 102 24 97 Nasal Cannula 2.0 28 03/05/19 22:33 Nasal Cannula 2.0 28 03/05/19 22:32 100 Nasal Cannula 2.0 28 03/05/19 22:00 101 26 144/74 (97) 98 03/05/19 21:00 100 25 144/74 (97) 98 03/05/19 20:00 98 03/05/19 20:00 98.6 98 17 141/70 (93) 100 03/05/19 20:00 Nasal Cannula 2.0 03/05/19 19:00 97 24 130/77 (94) 100 03/05/19 18:00 91 22 129/72 (91) 97 03/05/19 18:00 Nasal Cannula 2.0 03/05/19 17:00 89 27 129/71 (90) 96 03/05/19 16:00 98.0 88 25 126/69 (88) 98 03/05/19 16:00 Nasal Cannula 2.0 03/05/19 16:00 88 03/05/19 15:08 90 20 Nasal Cannula 2.0 28 03/05/19 15:00 90 26 133/67 (89) 97 03/05/19 14:00 90 25 115/78 (90) 97 Intake and Output 03/05/19 03/06/19 19:00 07:00 Intake Total 1660 ml 1590 ml Output Total 1790 ml 1220 ml Balance -130 ml 370 ml Intake Free Water 30 ml IV Total 1120 ml 900 ml Tube Feeding 540 ml 660 ml Output Urine Total 1790 ml 1220 ml # Bowel Movements 1 Height (Feet): 5 Height (Inches): 4.00 Weight (Pounds): 119 Objective Extubated. On O2 2 L /min NC CV RR Lungs B Ronchi. Abd SNT. BS + E Contractures. L arm +3 edema. Has L IJ Central Line Sacral decub. Neuro - obtunded - non focal. FC cloudy, concentrated urine. Ervin Mario MD Mar 06, 2019 13:15
--- NOTE | 2019-03-06 13:19 | NUR ---
NURSE NOTES: Dr. Mario at bedside assessing patient.
--- NOTE | 2019-03-06 15:05 | NUR ---
TRANSFER TO FLOOR: Patient transferred to [facility], per 's order. Report given to JOSE Carmona. Belongings and medications given to RN. Family and or S/O informed of transfer.
--- NOTE | 2019-03-06 15:10 | NUR ---
NURSE NOTES: Received report from Kristen Saucedo RN. Patient alert and oriented to name, able to follow commands but unable to make needs known. Receiving O2 via nasal cannula @ 2L/min, respirations even and unlabored. GT feeding of Jevity 1.2 @ 55 cc/hr, no residuals noted. HoB elevated. Anderson catheter patent and draining well. Left IJ TLC infusing 1/2NS with 40 meq KCl @ 75 cc/hr, asymptomatic. Bilateral wrist restraints in place, skin intact, peripheral pulses present, no redness or edema noted. Bed locked in lowest position with side rails up x 3. All needs attended to. Call light within reach. Will continue to monitor.
[2019-03-06] MEDS ORDERED: Albuterol/Ipratropium 3ml neb HHN PRN (15:59)
[2019-03-06] MEDS ORDERED: Morphine Sulfate 2mg/ml Inj(IV/IM USE ONLY) IVP PRN (16:01)
--- NOTE | 2019-03-06 18:00 | NUR ---
NURSE NOTES: New wound on base of right big toe found upon wound care dressing changes. Wound is intact .5 cm by 2 cm red in the middle and dark maroon on both ends. Injury offloaded but patient is severely contracted on bilateral lower extremities. Wound care protocol initiated. Dressing placed on wound. Will continue to monitor and turn patient.
--- NOTE | 2019-03-06 18:30 | Critical Care Progress Note ---
Assessment/Plan Assessment/Plan Pneumonia Septic shock Acute and chronic respiratory failure with hypoxia s/p extubation Acute renal failure Anemia Dementia Schizophrenia Previous Hypertension H/o Atrial fibrillation COPD Previous aspiration pneumonia S/p feeding tube PLAN may transition out of ICU feeds as able IV antibiotics respiratory care Ventilatory support off and stable monitor vitals closely SNF meds supportive care suction as needed aspiration precautions monitor oxygen needs stabilize further and reassess monitor imaging for change oxygen therapy as is prognosis guarded transition out of ICU medications/laboratory data/nursing notes/ICU care reviewed in detail note reviewed and edited care discussed with RN and RT ICU time spent 38 minutes Critical Care - Subjective Interval Events: overall same no distress on NC ROS Limited/Unobtainable: Yes Condition: improving EKG Rhythm: Sinus Rhythm I&O: Intake and Output 03/05/19 03/06/19 19:00 07:00 Intake Total 1660 ml 1590 ml Output Total 1790 ml 1220 ml Balance -130 ml 370 ml Intake Free Water 30 ml IV Total 1120 ml 900 ml Tube Feeding 540 ml 660 ml Output Urine Total 1790 ml 1220 ml # Bowel Movements 1 Critical Care - Objective ET-Tube: 7.5 ET Position: 26 Last 24 Hour Vital Signs Date Time Temp Pulse Resp B/P (MAP) Pulse Ox O2 Delivery O2 Flow Rate FiO2 03/06/19 16:00 97.9 99 22 129/83 (98) 98 03/06/19 16:00 Nasal Cannula 2.0 03/06/19 15:26 94 03/06/19 15:15 99 03/06/19 15:00 98.4 97 20 114/72 (86) 100 03/06/19 14:00 98.4 93 22 110/69 (83) 100 03/06/19 13:00 98.3 93 21 104/77 (86) 100 03/06/19 12:00 93 23 132/68 (89) 100 03/06/19 12:00 93 03/06/19 12:00 Nasal Cannula 2.0 03/06/19 11:00 98 25 120/69 (86) 99 03/06/19 10:00 102 27 133/76 (95) 99 03/06/19 09:00 101 25 111/74 (86) 98 03/06/19 08:04 98 Nasal Cannula 2.0 28 03/06/19 08:04 Nasal Cannula 2.0 28 03/06/19 08:02 98 22 129/77 (94) 98 03/06/19 08:00 96 03/06/19 08:00 Nasal Cannula 2.0 03/06/19 07:51 117/74 03/06/19 07:45 117/74 03/06/19 07:00 100 21 117/74 (88) 97 03/06/19 06:00 100 24 133/69 (90) 97 03/06/19 05:00 101 28 125/72 (89) 96 03/06/19 04:00 98.3 101 27 118/70 (86) 97 03/06/19 04:00 Nasal Cannula 2.0 03/06/19 04:00 101 03/06/19 03:00 104 29 109/71 (84) 96 03/06/19 02:00 104 03/06/19 02:00 98.5 104 25 125/96 (106) 96 03/06/19 01:00 106 27 130/71 (90) 98 03/06/19 00:00 111 03/06/19 00:00 Nasal Cannula 2.0 03/06/19 00:00 111 26 126/74 (91) 98 03/05/19 23:00 100 23 161/66 (97) 97 03/05/19 23:00 100 27 100 Nasal Cannula 2.0 28 03/05/19 22:52 102 24 97 Nasal Cannula 2.0 28 03/05/19 22:33 Nasal Cannula 2.0 28 03/05/19 22:32 100 Nasal Cannula 2.0 28 03/05/19 22:00 101 26 144/74 (97) 98 03/05/19 21:00 100 25 144/74 (97) 98 03/05/19 20:00 98 03/05/19 20:00 98.6 98 17 141/70 (93) 100 03/05/19 20:00 Nasal Cannula 2.0 03/05/19 19:00 97 24 130/77 (94) 100 Objective: WDWN NAD chronically ill extubated reduced breath sounds bilaterally without rhonchi or wheeze [id number] without MRG NABS nontender no HSM no CCE nonfocal and same reduced ROM- contractures skin noted reviewed and edited tubes noted Tim Andrade MD Mar 06, 2019 18:30
--- NOTE | 2019-03-06 19:36 | NUR ---
HAND-OFF: Report given to Clemente Gutierrez RN.
--- NOTE | 2019-03-06 19:37 | NUR ---
NURSE NOTES: Report received from Oj Marks RN. Pt opens eyes spontaneously, follows commands, non-verbal. manager monitoring shows SR. Pt on 2LNC, showing no signs of acute distress. A GT is in place with jevity 1.2 running @ 55 ml/hr. Anderson catheter present and draining appropriately. See WCP for skin alterations. Pt has a LIJ TLC with 1/2 [id number] running @ 75 ml/hr. Bilateral wrist restraints present for pulling of lines. Bed in lowest position, bed alarms placed, call light within reach. Will continue to monitor and with patients plan of care.
[2019-03-06] MEDS: Dyna-Hex 2% Top Sol 2oz TOPIC SCH (20:19)
--- NOTE | 2019-03-06 22:24 | Cardiology Progress Note ---
Assessment/Plan Assessment/Plan the patient is recovering from septic shock, and he is stable from cardiac standpoint, Subjective Subjective the patient is extubated, he is breathing comfortably, more alert and opens his eyes, but not communicating transferred to step down from ICU Objective Last 24 Hour Vital Signs Date Time Temp Pulse Resp B/P (MAP) Pulse Ox O2 Delivery O2 Flow Rate FiO2 03/06/19 20:00 98.7 100 20 157/81 (106) 97 03/06/19 20:00 Nasal Cannula 2.0 03/06/19 20:00 95 03/06/19 19:05 96 Nasal Cannula 2.0 28 03/06/19 19:05 Nasal Cannula 2.0 28 03/06/19 16:00 97.9 99 22 129/83 (98) 98 03/06/19 16:00 Nasal Cannula 2.0 03/06/19 15:26 94 03/06/19 15:15 99 03/06/19 15:00 98.4 97 20 114/72 (86) 100 03/06/19 14:00 98.4 93 22 110/69 (83) 100 03/06/19 13:00 98.3 93 21 104/77 (86) 100 03/06/19 12:00 93 23 132/68 (89) 100 03/06/19 12:00 93 03/06/19 12:00 Nasal Cannula 2.0 03/06/19 11:00 98 25 120/69 (86) 99 03/06/19 10:00 102 27 133/76 (95) 99 03/06/19 09:00 101 25 111/74 (86) 98 03/06/19 08:04 98 Nasal Cannula 2.0 28 03/06/19 08:04 Nasal Cannula 2.0 28 03/06/19 08:02 98 22 129/77 (94) 98 03/06/19 08:00 96 03/06/19 08:00 Nasal Cannula 2.0 03/06/19 07:51 117/74 03/06/19 07:45 117/74 03/06/19 07:00 100 21 117/74 (88) 97 03/06/19 06:00 100 24 133/69 (90) 97 03/06/19 05:00 101 28 125/72 (89) 96 03/06/19 04:00 98.3 101 27 118/70 (86) 97 03/06/19 04:00 Nasal Cannula 2.0 03/06/19 04:00 101 03/06/19 03:00 104 29 109/71 (84) 96 03/06/19 02:00 104 03/06/19 02:00 98.5 104 25 125/96 (106) 96 03/06/19 01:00 106 27 130/71 (90) 98 03/06/19 00:00 111 03/06/19 00:00 Nasal Cannula 2.0 03/06/19 00:00 111 26 126/74 (91) 98 03/05/19 23:00 100 23 161/66 (97) 97 03/05/19 23:00 100 27 100 Nasal Cannula 2.0 28 03/05/19 22:52 102 24 97 Nasal Cannula 2.0 28 03/05/19 22:33 Nasal Cannula 2.0 28 03/05/19 22:32 100 Nasal Cannula 2.0 28 General Appearance: lethargic EENT: PERRL/EOMI Neck: supple Rhythm: NSR Cardiovascular: tachycardia Respiratory/Chest: rhonchi - bilaterally Abdomen: distended Extremities: other - contracted Intake and Output 03/05/19 03/06/19 19:00 07:00 Intake Total 1660 ml 1590 ml Output Total 1790 ml 1220 ml Balance -130 ml 370 ml Intake Free Water 30 ml IV Total 1120 ml 900 ml Tube Feeding 540 ml 660 ml Output Urine Total 1790 ml 1220 ml # Bowel Movements 1 Sally Doty MD Mar 06, 2019 22:24
[2019-03-07] VITALS: BP 149/79
[2019-03-07 04:00] VITALS: BP 137/89
--- NOTE | 2019-03-07 07:20 | NUR ---
HAND-OFF: Report given to Charissa Smith. Report given at bedside. Pt showing no signs of acute distress.
--- NOTE | 2019-03-07 07:21 | NUR ---
NURSE NOTES: Received patient from JOSE Nascimento. patient VS stable at this time with no sign of acute distress. Patient sleeping at this time. Patient on 2L NC at this time. Patient opens eyes to name and shaking but does not respond to questions and only repeats single words. Patient showing sinus tachycardia on the registered nurse cardiac telemetry at a rate of 100. Patient has a left internal jugular central line that is patent, asymptomatic, and running 0.45% NS with 40mEq KCl at 75mL/hr at this time. Patient has a large gangrenous wound that covers the whole right side of his right foot. Patient has a left hip stage 3 pressure ulcer. Patient has a right metatarsal venous wound. Patient has a right hip heeled wound. Patient has several right grewal venous wounds. Patient's facial hair has caused the central line dressing to peel off. I will replace the central line dressing when possible. patient on bilateral soft wrist restraints. Patient witnessed attempting to pull at his central line and anderson. Patient has anderson for urine retention at this time. Anderson asymptomatic and patent at this time. Patient bed in low position with bed alarm on and call light in reach at this time.
--- NOTE | 2019-03-07 07:40 | General Progress Note ---
Assessment/Plan Assessment/Plan Emerged from septic shock. Recovered from respiratory failure . L arm edema - R/O DVT-- Duplex Neg. Infected decubs - GS following In [facility]. Check labs.. Subjective Allergies: Coded Allergies: No Known Allergies (Unverified , 02/25/19) Subjective Extubated x 60 h Objective Last 24 Hour Vital Signs Date Time Temp Pulse Resp B/P (MAP) Pulse Ox O2 Delivery O2 Flow Rate FiO2 03/07/19 04:10 98 03/07/19 04:00 Nasal Cannula 2.0 03/07/19 04:00 98.8 99 22 137/89 (105) 96 03/07/19 00:00 98.1 104 22 149/79 (102) 94 03/07/19 00:00 Nasal Cannula 2.0 03/06/19 23:27 101 03/06/19 20:00 98.7 100 20 157/81 (106) 97 03/06/19 20:00 Nasal Cannula 2.0 03/06/19 20:00 95 03/06/19 19:05 96 Nasal Cannula 2.0 28 03/06/19 19:05 Nasal Cannula 2.0 28 03/06/19 16:00 97.9 99 22 129/83 (98) 98 03/06/19 16:00 Nasal Cannula 2.0 03/06/19 15:26 94 03/06/19 15:15 99 03/06/19 15:00 98.4 97 20 114/72 (86) 100 03/06/19 14:00 98.4 93 22 110/69 (83) 100 03/06/19 13:00 98.3 93 21 104/77 (86) 100 03/06/19 12:00 93 23 132/68 (89) 100 03/06/19 12:00 93 03/06/19 12:00 Nasal Cannula 2.0 03/06/19 11:00 98 25 120/69 (86) 99 03/06/19 10:00 102 27 133/76 (95) 99 03/06/19 09:00 101 25 111/74 (86) 98 03/06/19 08:04 98 Nasal Cannula 2.0 28 03/06/19 08:04 Nasal Cannula 2.0 28 03/06/19 08:02 98 22 129/77 (94) 98 03/06/19 08:00 96 03/06/19 08:00 Nasal Cannula 2.0 03/06/19 07:51 117/74 03/06/19 07:45 11774 Intake and Output 03/06/19 03/07/19 19:00 07:00 Intake Total 1535 ml 755 ml Output Total 1300 ml 1625 ml Balance 235 ml -870 ml Intake Free Water 50 ml 150 ml IV Total 825 ml Tube Feeding 660 ml 605 ml Output Urine Total 1300 ml 1625 ml Height (Feet): 5 Height (Inches): 4.00 Weight (Pounds): 121 Objective Extubated. On O2 2 L /min NC CV RR Lungs B Ronchi. Abd SNT. BS + E Contractures. L arm +3 edema. Has L IJ Central Line Sacral decub. Neuro - obtunded - non focal. FC cloudy, concentrated urine. Ervin Mario MD Mar 07, 2019 07:40
[2019-03-07 08:00] VITALS: BP 151/73
--- NOTE | 2019-03-07 08:00 | NUR ---
NURSE NOTES: Attempted to sign 72 hour prolonged restraint intervention documentation, but it kept showing an error message stating "After 72 hours restraints removed required" although I had documented already in that area. Will call IT when possible.
--- NOTE | 2019-03-07 08:00 | NUR ---
NURSE NOTES: Attempted to sign 72 hour renewal non-behavioral restraint intervention with charge nurse, JOSE Mosquera at [phone]. Intervention would not save.
--- NOTE | 2019-03-07 08:35 | Critical Care Progress Note ---
Assessment/Plan Assessment/Plan Pneumonia Septic shock Acute and chronic respiratory failure with hypoxia s/p extubation Acute renal failure Anemia Dementia Schizophrenia Previous Hypertension H/o Atrial fibrillation COPD Previous aspiration pneumonia S/p feeding tube PLAN in [facility] feeds as able IV antibiotics respiratory care monitor vitals closely SNF meds supportive care suction as needed aspiration precautions monitor oxygen needs and reduce stabilize further and reassess monitor imaging for change oxygen therapy as is prognosis guarded impression, plan, and exam edited and reviewed in detail care discussed with obstetrics gynecology physician - Subjective ROS Limited/Unobtainable: Yes Condition: improving EKG Rhythm: Sinus Rhythm Residuals: minimal Tube Feeding Tolerated: yes I&O: Intake and Output 03/06/19 03/07/19 19:00 07:00 Intake Total 1535 ml 755 ml Output Total 1300 ml 1625 ml Balance 235 ml -870 ml Intake Free Water 50 ml 150 ml IV Total 825 ml Tube Feeding 660 ml 605 ml Output Urine Total 1300 ml 1625 ml Critical Care - Objective ET-Tube: 7.5 ET Position: 26 Last 24 Hour Vital Signs Date Time Temp Pulse Resp B/P (MAP) Pulse Ox O2 Delivery O2 Flow Rate FiO2 03/07/19 04:10 98 03/07/19 04:00 Nasal Cannula 2.0 03/07/19 04:00 98.8 99 22 137/89 (105) 96 03/07/19 00:00 98.1 104 22 149/79 (102) 94 03/07/19 00:00 Nasal Cannula 2.0 03/06/19 23:27 101 03/06/19 20:00 98.7 100 20 157/81 (106) 97 03/06/19 20:00 Nasal Cannula 2.0 03/06/19 20:00 95 03/06/19 19:05 96 Nasal Cannula 2.0 28 03/06/19 19:05 Nasal Cannula 2.0 28 03/06/19 16:00 97.9 99 22 129/83 (98) 98 03/06/19 16:00 Nasal Cannula 2.0 03/06/19 15:26 94 03/06/19 15:15 99 03/06/19 15:00 98.4 97 20 114/72 (86) 100 03/06/19 14:00 98.4 93 22 110/69 (83) 100 03/06/19 13:00 98.3 93 21 104/77 (86) 100 03/06/19 12:00 93 23 132/68 (89) 100 03/06/19 12:00 93 03/06/19 12:00 Nasal Cannula 2.0 03/06/19 11:00 98 25 120/69 (86) 99 03/06/19 10:00 102 27 133/76 (95) 99 03/06/19 09:00 101 25 111/74 (86) 98 Labs: Labs Test 03/04/19 14:45 03/05/19 09:00 Arterial Blood pH 7.462 (7.350-7.450) Arterial Blood Partial Pressure CO2 30.6 mmHg (35.0-45.0) Arterial Blood Partial Pressure O2 122.2 mmHg (75.0-100.0) Arterial Blood HCO3 21.4 mmol/L (22.0-26.0) Arterial Blood Oxygen Saturation 97.9 % (95-100) Arterial Blood Base Excess -1.8 (-2-2) Rhett Test Positive White Blood Count 6.4 K/UL (4.8-10.8) Red Blood Count 3.61 M/UL (4.70-6.10) Hemoglobin 8.8 G/DL (14.2-18.0) Hematocrit 27.7 % (42.0-52.0) Mean Corpuscular Volume 77 FL (80-99) Mean Corpuscular Hemoglobin 24.4 PG (27.0-31.0) Mean Corpuscular Hemoglobin Concent 31.9 G/DL (32.0-36.0) Red Cell Distribution Width 14.7 % (11.6-14.8) Platelet Count 137 K/UL (150-450) Mean Platelet Volume 6.9 FL (6.5-10.1) Neutrophils (%) (Auto) 70.9 % (45.0-75.0) Lymphocytes (%) (Auto) 15.4 % (20.0-45.0) Monocytes (%) (Auto) 9.9 % (1.0-10.0) Eosinophils (%) (Auto) 2.6 % (0.0-3.0) Basophils (%) (Auto) 1.2 % (0.0-2.0) Sodium Level 145 MMOL/L (136-145) Potassium Level 4.6 MMOL/L (3.5-5.1) Chloride Level 113 MMOL/L (98-107) Carbon Dioxide Level 28 MMOL/L (21-32) Anion Gap 4 mmol/L (5-15) Blood Urea Nitrogen 10 mg/dL (7-18) Creatinine 0.6 MG/DL (0.55-1.30) Estimat Glomerular Filtration Rate mL/min (>60) Glucose Level 101 MG/DL (74-106) Calcium Level 7.2 MG/DL (8.5-10.1) Vancomycin Level Trough 5.8 ug/mL (5.0-12.0) Objective: WDWN NAD chronically ill extubated reduced breath sounds bilaterally without rhonchi or wheeze [id number] without MRG NABS nontender no HSM no CCE nonfocal and same reduced ROM- contractures skin noted reviewed and edited tubes noted Tim Andrade MD Mar 07, 2019 08:35
--- NOTE | 2019-03-07 09:15 | NUR ---
NURSE NOTES: Dakin's solution not in the patient's cassette. Called pharmacy to get a new bottle sent up.
[2019-03-07] MEDS: Pantoprazole Inj IVP SCH (09:46)
[2019-03-07] MEDS: Heparin 5000 units/ml inj SUBQ SCH ×2 (09:48→20:03)
--- NOTE | 2019-03-07 10:48 | Infectious Diseases Prog Note ---
Assessment/Plan Assessment/Plan antibiotics : ceftriaxone A 1. proteus sepsis secondary to UTI 2. proteus UTI 3. leucocytosis resolved 4. shock resolved 5. respiratory failure resolved 6. schizophrenia 7. renal failure improving 8. dementia P 1. continue iv ceftriaxone 2 more days 2. will follow up cultures Subjective ROS Limited/Unobtainable: Yes Allergies: Coded Allergies: No Known Allergies (Unverified , 02/25/19) Objective Vital Signs Last 24 Hour Vital Signs Date Time Temp Pulse Resp B/P (MAP) Pulse Ox O2 Delivery O2 Flow Rate FiO2 03/07/19 04:10 98 03/07/19 04:00 Nasal Cannula 2.0 03/07/19 04:00 98.8 99 22 137/89 (105) 96 03/07/19 00:00 98.1 104 22 149/79 (102) 94 03/07/19 00:00 Nasal Cannula 2.0 03/06/19 23:27 101 03/06/19 20:00 98.7 100 20 157/81 (106) 97 03/06/19 20:00 Nasal Cannula 2.0 03/06/19 20:00 95 03/06/19 19:05 96 Nasal Cannula 2.0 28 03/06/19 19:05 Nasal Cannula 2.0 28 03/06/19 16:00 97.9 99 22 129/83 (98) 98 03/06/19 16:00 Nasal Cannula 2.0 03/06/19 15:26 94 03/06/19 15:15 99 03/06/19 15:00 98.4 97 20 114/72 (86) 100 03/06/19 14:00 98.4 93 22 110/69 (83) 100 03/06/19 13:00 98.3 93 21 104/77 (86) 100 03/06/19 12:00 93 23 132/68 (89) 100 03/06/19 12:00 93 03/06/19 12:00 Nasal Cannula 2.0 03/06/19 11:00 98 25 120/69 (86) 99 Height (Feet): 5 Height (Inches): 4.00 Weight (Pounds): 121 Respiratory/Chest: lungs clear Cardiovascular: normal rate, regular rhythm, no gallop/murmur Abdomen: soft, non tender, other - GT Extremities: no edema, other - left IJ catheter Current Medications Medications (Trade) Dose Ordered Sig/Mckenzie Route PRN Reason Start Time Stop Time Status Last Admin Dose Admin Albuterol/ Ipratropium (Albuterol/ Ipratropium) 3 ml Q4H PRN HHN Shortness of Breath 03/06/19 15:59 03/11/19 15:58 Ceftriaxone Sodium 2 gm/ Dextrose 110 ml @ 220 mls/hr Q24H IVPB 03/07/19 13:00 03/10/19 12:59 Chlorhexidine Gluconate (Liz-Hex 2%) 1 applic DAILY@2000 TOPIC 03/06/19 20:00 03/31/19 19:59 03/06/19 20:19 Heparin Sodium (Porcine) (Heparin 5000 units/ml) 5,000 units EVERY 12 HOURS SUBQ 03/06/19 21:00 04/05/19 20:59 03/07/19 09:48 Morphine Sulfate (Morphine Sulfate) 2 mg Q4H PRN IVP Severe Pain (Pain Scale 7-10) 03/06/19 16:01 03/11/19 16:00 Pantoprazole (Protonix) 40 mg DAILY IVP 03/07/19 09:00 03/31/19 08:59 03/07/19 09:46 Potassium Chloride 40 meq/ Sodium Chloride 1,020 ml @ 75 mls/hr [id number] IV 03/06/19 16:00 04/01/19 21:29 03/06/19 20:33 Sodium Hypochlorite (Dakin's Quarter Strength) 1 applic DAILY TOPIC 03/07/19 09:00 03/31/19 12:59 Manan Gomez MD Mar 07, 2019 10:48
--- NOTE | 2019-03-07 11:30 | NUR ---
NURSE NOTES: Called pharmacy to follow up regarding Dakin's solution since it has not yet been brought up from pharmacy. Victoriano stated that it would be brought up soon.
[2019-03-07 12:00] VITALS: BP 136/81
[2019-03-07] MEDS: Dakin's 0.125% Soln (Quarter Strength) 16oz TOPIC SCH (12:28)
--- NOTE | 2019-03-07 12:46 | Diagnostic Imaging Report ---
APPROVED REPORT CPT Code: 33471 Symptoms Other : Left arm swelling Comments Technically difficult to image internal jugular veins due to right side bandage and left side line BILATERAL UPPER EXTREMITY: Imaging of the subclavian, axillary, brachial, radial and ulnar arteries is within normal limits. There is no evidence of stenosis or occlusions within these segments. The Doppler waveforms of both upper extremities are multiphasic, consistent with normal inflow to both upper extremities.
[2019-03-07] MEDS: cefTRIAXone 2 GM in D5W 110 ML IVPB SCH (13:29)
--- NOTE | 2019-03-07 14:10 | NUR ---
RD ASSESSMENT & RECOMMENDATIONS SEE CARE ACTIVITY FOR COMPLETE ASSESSMENT DAILY ESTIMATED NEEDS: Needs based on advanced wounds, CRITICAL CARE / 53.1kg 25-30 kcals/kg [id number] total kcals 1.5-2.0 g protein/kg 79-106 g total protein 25-30 mL/kg [id number] total fluid mLs NUTRITION DIAGNOSIS: * Swallowing difficulty R/T dysphagia as evidenced by pt GT dep, now s/p extubation, off pressor support, on GT feeding. * Increased kcal/pro needs R/T wound healing as evidenced by pt admitted w/ multiple advanced wounds including necrotic left foot amd lt trochanter wounds, full thickness injury to Rt tibia, refer to wc eval. CURRENT TF:Jevity 1.2 @ 55ml/hr x 24 hrs ENTERAL NUTRITION RECOMMENDATIONS: Jevity 1.2 @ 55ml/hr x 24 hrs + Prosource 1pkt BID to provide 1320ml, 1584kcal, 73g + 22g prot, 1065ml free water * Add Prosource 1pkt BID to meet protein needs * HOB over 30 degrees/ water flush per MD ADDITIONAL RECOMMENDATIONS: * Calibrated bedscale wt for accurate CBW * WOUND HEALING: add Simon 1pkt BID, Vit C 500mg BID * Monitor lytes, replete as needed * Check f/up BMP . . .
--- NOTE | 2019-03-07 15:48 | Surgery Progress Note ---
Surgery Progress Note Subjective Procedure Performed endotracheal tube intubation Additional Comments doing well since extubation. downgraded. no acute events. labs noted. Objective Last 24 Hour Vital Signs Date Time Temp Pulse Resp B/P (MAP) Pulse Ox O2 Delivery O2 Flow Rate FiO2 03/07/19 12:00 97.7 99 24 136/81 (99) 98 03/07/19 09:00 104 03/07/19 08:00 96 03/07/19 08:00 97.5 98 16 151/73 (99) 100 03/07/19 04:10 98 03/07/19 04:00 Nasal Cannula 2.0 03/07/19 04:00 98.8 99 22 137/89 (105) 96 03/07/19 00:00 98.1 104 22 149/79 (102) 94 03/07/19 00:00 Nasal Cannula 2.0 03/06/19 23:27 101 03/06/19 20:00 98.7 100 20 157/81 (106) 97 03/06/19 20:00 Nasal Cannula 2.0 03/06/19 20:00 95 03/06/19 19:05 96 Nasal Cannula 2.0 28 03/06/19 19:05 Nasal Cannula 2.0 28 03/06/19 16:00 97.9 99 22 129/83 (98) 98 03/06/19 16:00 Nasal Cannula 2.0 I&O Intake and Output 03/06/19 03/07/19 19:00 07:00 Intake Total 1535 ml 755 ml Output Total 1300 ml 1625 ml Balance 235 ml -870 ml Intake Free Water 50 ml 150 ml IV Total 825 ml Tube Feeding 660 ml 605 ml Output Urine Total 1300 ml 1625 ml Dressing: saturated Wound: other Drains: other Cardiovascular: RSR Respiratory: decreased breath sounds Abdomen: soft, present bowel sounds, non-distended Extremities: no tenderness, no cyanosis Plan Problems: (1) Ulcer of lower extremity excluding decubitus ulcer Assessment & Plan: Pt presented on admission with contractures both lower ext with multiple necrotic wounds L trochanter,R tibia, and L foot. Lateral L foot (L)3.5cm x (W)11cm.90%Soft necrosis with surrounding slough along borders.Wound is malodorous. Small amt brown exudate noted.Greyish colour periwound. L Lateral metatarsal to L hallux (L)4.3cm x (W)6.9cm . Base of wound necrotic with area of fluctuance at lateral aspect L1st metatarsal.Wound is malodorous with small amt brownish exudate Greyish colour periwound. Lateral L heel (L)3cm x (W)6.6cm.100%Unstable necrosis base of wound with surrounding mixed soft slough with erythema.Wound is malodorous. Wound is malodorous with small amt brownish exudate. Plantar L foot (L)2.5cm x (W)1.5cm Unstable necrosis with indurated borders. No exudate noted. All 5 metatarsals are burgess in color. Full thickness pressure injury R tibia(L)6.5cm x (W)1cm. elongated wound with indurated red borders,10% necrosis at proximal end with #2 areas of slough- approx 10% with erythema that is dry remaining base of wound .No odor noted. Non-blanchable erythema with scattered purple areas medial L tibia(L)5.7cm x (W) 4.5cm.Site without fluctuance or induration .No elevation in skin temp. Dorsal R 2nd metatarsal head maroon with fluctuance.(L)0.8cm x (W)1.3cm. R heel boggy with non-blanchable erythema. Pressure injury to L trochanter 90% necrotic,dry with pink epithelialized borders. Dark skin tone without erythema or induration periwound .In close proximity is an area with pink epithelial tissue with a linear area in center that is brown but dry and adherent to base. Resolving pressure injury to sacrum.95% epithelial at base of wound .Small area at coccyx measuring(L)0.4cm x (W)0.3cm with yellow slough.No exudate noted. Areas of hyperpigmentation scarring noted to R and L ischial areas. Tx.Plan: Cleanse L trochanter with Saline. Apply Dakins 1/4% soaked gauze to L trochanter.Apply Cavilon Skin Barrier periwound. Cover with Optifoam drsg. Change daily and PRN. Cleanse R tibia with Saline.Apply Dakins 1/4% soaked gauze. Cavilon Skin Barrier periwound.Cover with Optifoam drsg. Change Daily and prn. Apply Cavilon Skin Barrier to L medial /idalia L tibia .Cover with Optifoam drsg. Change every 7 days and prn. Apply Cavilon Skin Barrier to R heel. Cover with Optifoam drsg.Change every 7 days and PRN. Cleanse coccygeal wound with saline. Apply Therahoney.Apply Triad Paste periwound to sacrum. Cover with Optifoam drsg. Change Daily and prn. APM/KAVON Mattress overlay. Reposition at least every 2hours or as tolerated. Place Pillow between knees . Off-load heels with pillow. (2) Septic shock Assessment & Plan: Intubated for airway protection in ICU - since extubated and doing well cont with O2 as needed fluids okay for diet will monitor prognosis guarded (3) Asymptomatic bacteriuria (4) ARF (acute renal failure) (5) Healthcare-associated pneumonia (6) Acute and chronic respiratory failure with hypoxia (7) Anemia (8) Alzheimer disease (9) Dysphagia (10) Sepsis (11) Pneumonia (12) Gastroparesis (13) Severe sepsis (14) Encounter for PEG (percutaneous endoscopic gastrostomy) (15) Decubitus ulcer of trochanteric region of left hip Rios Quiñones Mar 07, 2019 15:48
[2019-03-07 16:00] VITALS: BP 146/87
[2019-03-07] MEDS ORDERED: NS 275ml ONE (19:12)
[2019-03-07] MEDS ORDERED: Tubing IV Secondary IV ONE (19:19)
--- NOTE | 2019-03-07 19:30 | NUR ---
HAND-OFF: Report given to JOSE Nascimento. Patient VS stable at this time with no sign of acute distress.
--- NOTE | 2019-03-07 19:30 | NUR ---
NURSE NOTES: Report received from Charissa Smith RN. Pt opens eyes spontaneously, oriented to name but unable to respond with full sentences otherwise. ice cream maker shows ST. Pt on 2LNC, showing no signs of acute distress at the moment. A GT is in place with jevity 1.2 running @ 55 ml/hr. Anderson catheter present and draining appropriately, being used for retention. See WCP for skin alterations. Pt has a LIJ TLC with 1/2 [id number] running @ 75 ml/hr. Bilateral wrist restraints present for pulling of lines. No signs of skin breakdown or redness/swelling. Bed in lowest position, bed alarms placed, call light within reach. Will continue to monitor and with patients plan of care.
[2019-03-07 20:00] VITALS: BP 141/82
[2019-03-07] MEDS: Dyna-Hex 2% Top Sol 2oz TOPIC SCH (20:02)
[2019-03-07] MEDS: Potassium Chloride 40 MEQ in 1/2 NS 1000ml 1,000 ML IV SCH (20:02)
--- NOTE | 2019-03-07 21:17 | Cardiology Progress Note ---
Assessment/Plan Assessment/Plan the patient is stable from cardiac standpoint Subjective Subjective the patient is resting in his bed, seems to be comfortable Objective Last 24 Hour Vital Signs Date Time Temp Pulse Resp B/P (MAP) Pulse Ox O2 Delivery O2 Flow Rate FiO2 03/07/19 20:30 102 22 Nasal Cannula 2.0 28 03/07/19 20:29 Nasal Cannula 2.0 28 03/07/19 20:29 97 Nasal Cannula 2.0 28 03/07/19 16:00 97.7 100 20 146/87 (106) 100 03/07/19 16:00 Nasal Cannula 2.0 03/07/19 16:00 98 03/07/19 12:00 Nasal Cannula 2.0 03/07/19 12:00 97.7 99 24 136/81 (99) 98 03/07/19 11:47 101 03/07/19 09:00 104 03/07/19 08:00 96 03/07/19 08:00 Nasal Cannula 2.0 03/07/19 08:00 97.5 98 16 151/73 (99) 100 03/07/19 04:10 98 03/07/19 04:00 Nasal Cannula 2.0 03/07/19 04:00 98.8 99 22 137/89 (105) 96 03/07/19 00:00 98.1 104 22 149/79 (102) 94 03/07/19 00:00 Nasal Cannula 2.0 03/06/19 23:27 101 General Appearance: lethargic, other - not communicative EENT: PERRL/EOMI Neck: no JVD Rhythm: NSR Cardiovascular: tachycardia Respiratory/Chest: crackles/rales Abdomen: soft Extremities: other - contracted Intake and Output 03/06/19 03/07/19 19:00 07:00 Intake Total 1535 ml 885 ml Output Total 1300 ml 1625 ml Balance 235 ml -740 ml Intake Free Water 50 ml 150 ml IV Total 825 ml 75 ml Tube Feeding 660 ml 660 ml Output Urine Total 1300 ml 1625 ml Sally Doty MD Mar 07, 2019 21:17
[2019-03-08] VITALS: BP 129/80
[2019-03-08 04:00] VITALS: BP 132/83
[2019-03-08 05:04] LABS: BASOPHILS % (AUTO) 0.6 % (0.0-2.0); EOSINOPHILS % (AUTO) 2.4 % (0.0-3.0); HEMATOCRIT 28.6 % (42.0-52.0); HEMOGLOBIN 9.1 G/DL (14.2-18.0); LYMPHOCYTES % (AUTO) 18.2 % (20.0-45.0); MEAN CORPUSCULAR VOLUME 76 FL (80-99); MONOCYTES % (AUTO) 9.2 % (1.0-10.0); NEUTROPHILS % (AUTO) 69.6 % (45.0-75.0); PLATELET COUNT 273 K/UL (150-450); RED BLOOD COUNT 3.76 M/UL (4.70-6.10); RED CELL DISTRIBUTION WIDTH 15.3 % (11.6-14.8); WHITE BLOOD COUNT 5.9 K/UL (4.8-10.8)
[2019-03-08 05:25] LABS: ALANINE AMINOTRANSFERASE 30 U/L (12-78); ALBUMIN 1.4 G/DL (3.4-5.0); ALBUMIN/GLOBULIN RATIO 0.3 (1.0-2.7); ALKALINE PHOSPHATASE 75 U/L (46-116); ANION GAP 6 mmol/L (5-15); ASPARTATE AMINO TRANSFERASE 23 U/L (15-37); BILIRUBIN,TOTAL 0.2 MG/DL (0.2-1.0); BLOOD UREA NITROGEN 9 mg/dL (7-18); CALCIUM 6.9 MG/DL (8.5-10.1); CARBON DIOXIDE 26 MMOL/L (21-32); CHLORIDE 105 MMOL/L (98-107); CREATININE 0.6 MG/DL (0.55-1.30); PHOSPHORUS 2.7 MG/DL (2.5-4.9); POTASSIUM 4.4 MMOL/L (3.5-5.1); SODIUM 137 MMOL/L (136-145)
--- NOTE | 2019-03-08 07:15 | NUR ---
NURSE NOTES: Received patient from JOSE Nascimento. Patient VS stable at this time with no sign of acute distress. Patient sleeping at this time. Patient on 2L NC at this time. Patient opens eyes to name and shaking but does not respond to questions and only repeats single words. 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 Patient has a left internal jugular TLC that is patent, asymptomatic, and saline locked at this time. Patient has newly inserted peripheral lines. Patient has a left hand 22G and right forearm 20G PIV that are patent and asymptomatic at this time. Patient running 0.45% NS with 40mEq KCl at 75mL/hr at this time. Patient has a large gangrenous wound that covers the whole right side of his right foot. Patient has a left hip stage 3 pressure ulcer. Patient has a right metatarsal venous wound. Patient has a right hip heeled wound. Patient has several right grewal venous wounds. patient on bilateral soft wrist restraints. Patient witnessed attempting to pull at his central line and anderson. Patient has anderson for urine retention at this time due to him being witnessed pulling on his central line and anderson. Patient has a Anderson asymptomatic and patent at this time. Patient bed in low position with bed alarm on and call light in reach at this time.
[2019-03-08 08:00] VITALS: BP 127/77
--- NOTE | 2019-03-08 08:14 | General Progress Note ---
Assessment/Plan Assessment/Plan Emerged from septic shock. Recovered from respiratory failure . L arm edema - R/O DVT-- Duplex Neg. Infected decubs - GS following In ASAF. Check labs.. Subjective Allergies: Coded Allergies: No Known Allergies (Unverified , 02/25/19) Subjective Extubated x 82 h Objective Last 24 Hour Vital Signs Date Time Temp Pulse Resp B/P (MAP) Pulse Ox O2 Delivery O2 Flow Rate FiO2 03/08/19 04:00 103 03/08/19 04:00 98.6 103 24 132/83 (99) 98 03/08/19 04:00 Nasal Cannula 2.0 03/08/19 00:00 109 03/08/19 00:00 98.4 109 20 129/80 (96) 97 03/08/19 00:00 Nasal Cannula 2.0 03/07/19 20:30 102 22 Nasal Cannula 2.0 28 03/07/19 20:29 Nasal Cannula 2.0 28 03/07/19 20:29 97 Nasal Cannula 2.0 28 03/07/19 20:00 Nasal Cannula 2.0 03/07/19 20:00 98.1 107 24 141/82 (101) 98 03/07/19 20:00 102 03/07/19 16:00 97.7 100 20 146/87 (106) 100 03/07/19 16:00 Nasal Cannula 2.0 03/07/19 16:00 98 03/07/19 12:00 Nasal Cannula 2.0 03/07/19 12:00 97.7 99 24 136/81 (99) 98 03/07/19 11:47 101 03/07/19 09:00 104 Intake and Output 03/07/19 03/08/19 18:59 06:59 Intake Total 1770 ml 1585 ml Output Total 1200 ml 2300 ml Balance 570 ml -715 ml Intake Free Water 100 ml 100 ml IV Total 1010 ml 825 ml Tube Feeding 660 ml 660 ml Output Urine Total 1200 ml 2300 ml # Bowel Movements 1 Laboratory Tests 03/08/19 04:50: White Blood Count 5.9, Red Blood Count 3.76L, Hemoglobin 9.1L, Hematocrit 28.6L , Mean Corpuscular Volume 76L, Mean Corpuscular Hemoglobin 24.3L, Mean Corpuscular Hemoglobin Concent 32.0, Red Cell Distribution Width 15.3H, Platelet Count 273, Mean Platelet Volume 7.1, Neutrophils (%) (Auto) 69.6, Lymphocytes (%) (Auto) 18.2L, Monocytes (%) (Auto) 9.2, Eosinophils (%) (Auto) 2.4, Basophils (%) (Auto) 0.6, Sodium Level 137, Potassium Level 4.4, Chloride Level 105, Carbon Dioxide Level 26, Anion Gap 6, Blood Urea Nitrogen 9, Creatinine 0.6, Estimat Glomerular Filtration Rate , Glucose Level 85, Calcium Level 6.9L, Phosphorus Level 2.7, Magnesium Level 1.4L, Total Bilirubin 0.2, Aspartate Amino Transf (AST/SGOT) 23, Alanine Aminotransferase (ALT/SGPT) 30, Alkaline Phosphatase 75, Total Protein 5.7L, Albumin 1.4L, Globulin 4.3, Albumin /Globulin Ratio 0.3L Height (Feet): 5 Height (Inches): 4.00 Weight (Pounds): 118 Objective Extubated. On O2 2 L /min NC CV RR Lungs B Ronchi. Abd SNT. BS + E Contractures. L arm +3 edema. Has L IJ Central Line Sacral decub. Neuro - obtunded - non focal. FC cloudy, concentrated urine. Ervin Mario MD Mar 08, 2019 08:14
--- NOTE | 2019-03-08 08:16 | NUR ---
NURSE NOTES: Asked Dr. Mario if we could discontinue the left IJ TLC central line now that the patient has [address] Mario said that he would like to keep the central line while the patient is on antibiotics.
[2019-03-08] MEDS: Pantoprazole Inj IVP SCH (09:18)
[2019-03-08] MEDS: Dakin's 0.125% Soln (Quarter Strength) 16oz TOPIC SCH (09:18)
[2019-03-08] MEDS: Heparin 5000 units/ml inj SUBQ SCH ×2 (09:21→23:33)
--- NOTE | 2019-03-08 10:20 | Infectious Diseases Prog Note ---
Assessment/Plan Assessment/Plan A: 1. Proteus sepsis 2. proteus UTI 3. leucocytosis resolved 4. shock, off pressors 5. respiratory failure 6. schizophrenia 7. renal failure improving 8. 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 continue Rocephin X 1 day Subjective ROS Limited/Unobtainable: Yes Neurologic: Reports: confusion, other - on restraint Allergies: Coded Allergies: No Known Allergies (Unverified , 02/25/19) Objective Vital Signs Last 24 Hour Vital Signs Date Time Temp Pulse Resp B/P (MAP) Pulse Ox O2 Delivery O2 Flow Rate FiO2 03/08/19 04:00 103 03/08/19 04:00 98.6 103 24 132/83 (99) 98 03/08/19 04:00 Nasal Cannula 2.0 03/08/19 00:00 109 03/08/19 00:00 98.4 109 20 129/80 (96) 97 03/08/19 00:00 Nasal Cannula 2.0 03/07/19 20:30 102 22 Nasal Cannula 2.0 28 03/07/19 20:29 Nasal Cannula 2.0 28 03/07/19 20:29 97 Nasal Cannula 2.0 28 03/07/19 20:00 Nasal Cannula 2.0 03/07/19 20:00 98.1 107 24 141/82 (101) 98 03/07/19 20:00 102 03/07/19 16:00 97.7 100 20 146/87 (106) 100 03/07/19 16:00 Nasal Cannula 2.0 03/07/19 16:00 98 03/07/19 12:00 Nasal Cannula 2.0 03/07/19 12:00 97.7 99 24 136/81 (99) 98 03/07/19 11:47 101 Height (Feet): 5 Height (Inches): 4.00 Weight (Pounds): 118 General Appearance: no acute distress HEENT: mucous membranes moist Respiratory/Chest: lungs clear Cardiovascular: tachycardia, other - Left IJ central line Abdomen: soft, non tender Extremities: no edema, other - legs cotraction Skin: ulcers Neurologic/Psychiatric: disoriented Laboratory Tests Test 03/08/19 04:50 White Blood Count 5.9 K/UL (4.8-10.8) Red Blood Count 3.76 M/UL (4.70-6.10) L Hemoglobin 9.1 G/DL (14.2-18.0) L Hematocrit 28.6 % (42.0-52.0) L Mean Corpuscular Volume 76 FL (80-99) L Mean Corpuscular Hemoglobin 24.3 PG (27.0-31.0) L Mean Corpuscular Hemoglobin Concent 32.0 G/DL (32.0-36.0) Red Cell Distribution Width 15.3 % (11.6-14.8) H Platelet Count 273 K/UL (150-450) Mean Platelet Volume 7.1 FL (6.5-10.1) Neutrophils (%) (Auto) 69.6 % (45.0-75.0) Lymphocytes (%) (Auto) 18.2 % (20.0-45.0) L Monocytes (%) (Auto) 9.2 % (1.0-10.0) Eosinophils (%) (Auto) 2.4 % (0.0-3.0) Basophils (%) (Auto) 0.6 % (0.0-2.0) Sodium Level 137 MMOL/L (136-145) Potassium Level 4.4 MMOL/L (3.5-5.1) Chloride Level 105 MMOL/L (98-107) Carbon Dioxide Level 26 MMOL/L (21-32) Anion Gap 6 mmol/L (5-15) Blood Urea Nitrogen 9 mg/dL (7-18) Creatinine 0.6 MG/DL (0.55-1.30) Estimat Glomerular Filtration Rate mL/min (>60) Glucose Level 85 MG/DL (74-106) Calcium Level 6.9 MG/DL (8.5-10.1) L Phosphorus Level 2.7 MG/DL (2.5-4.9) Magnesium Level 1.4 MG/DL (1.8-2.4) L Total Bilirubin 0.2 MG/DL (0.2-1.0) Aspartate Amino Transf (AST/SGOT) 23 U/L (15-37) Alanine Aminotransferase (ALT/SGPT) 30 U/L (12-78) Alkaline Phosphatase 75 U/L (46-116) Total Protein 5.7 G/DL (6.4-8.2) L Albumin 1.4 G/DL (3.4-5.0) L Globulin 4.3 g/dL Albumin/Globulin Ratio 0.3 (1.0-2.7) L Current Medications Medications (Trade) Dose Ordered Sig/Mckenzie Route PRN Reason Start Time Stop Time Status Last Admin Dose Admin Albuterol/ Ipratropium (Albuterol/ Ipratropium) 3 ml Q4H PRN HHN Shortness of Breath 03/06/19 15:59 03/11/19 15:58 Ceftriaxone Sodium 2 gm/ Dextrose 110 ml @ 220 mls/hr Q24H IVPB 03/07/19 13:00 03/10/19 12:59 03/07/19 13:29 Chlorhexidine Gluconate (Liz-Hex 2%) 1 applic DAILY@2000 TOPIC 03/06/19 20:00 03/31/19 19:59 03/07/19 20:02 Heparin Sodium (Porcine) (Heparin 5000 units/ml) 5,000 units EVERY 12 HOURS SUBQ 03/06/19 21:00 04/05/19 20:59 03/08/19 09:21 Magnesium Sulfate 100 ml @ 100 mls/hr Q1H IVPB 03/08/19 08:30 03/08/19 12:29 03/08/19 09:18 Morphine Sulfate (Morphine Sulfate) 2 mg Q4H PRN IVP Severe Pain (Pain Scale 7-10) 03/06/19 16:01 03/11/19 16:00 Pantoprazole (Protonix) 40 mg DAILY IVP 03/07/19 09:00 03/31/19 08:59 03/08/19 09:18 Potassium Chloride 40 meq/ Sodium Chloride 1,020 ml @ 75 mls/hr [id number] IV 03/06/19 16:00 04/01/19 21:29 03/07/19 20:02 Sodium Hypochlorite (Dakin's Quarter Strength) 1 applic DAILY TOPIC 03/07/19 09:00 03/31/19 12:59 03/08/19 09:18 Lev Pardo MD Mar 08, 2019 10:20
--- NOTE | 2019-03-08 10:47 | Pulmonolgy Critical Care Note ---
Critical Care - Asmt/Plan Assessment/Plan: Pulmonary CCM Progress Noted HPI Patient is an 83-year-old male with a history of Dementia, Schizophrenia, Bed bound in Group Home, HTN, Atrial fibrillation, COPD, previous pneumonia, feeding tube. Admitted with multiple decubitus ulcers, poorly nourished, shortness of breath. Noted to be septic in the ED with evidence of pneumonia, multiple skin wounds. Unable to get any history from this patient because of his condition and nonverbal. Allergies: No Known Allergies Past Medical History: Dementia, Schizophrenia, Bed bound in Group Home, Hypertension, Atrial fibrillation, COPD, previous pneumonia, feeding tube Past Surgical History: G tube All Other Systems: limited - Secondary to condition Physical Exam Vital Signs Noted General Appearance: moderate distress, cachetic, Chronically Ill, wasted Head: normocephalic, atraumatic Eyes: bilateral eye PERRL, bilateral eye EOMI ENT: hearing grossly normal, dry mucus membranes Neck: full range of motion, supple, no meningismus Respiratory: chest non-tender, no current respiratory distress on O2, occaional rhonchi Cardiovascular: regular, rhythm, no murmur, tachycardia Gastrointestinal: normal bowel sounds, non tender, no mass, no organomegaly, no bruit, non-distended Musculoskeletal: back normal, other - Contracted Psychiatric: mood/affect normal Skin: warm/dry, multiple decubitus ulcer LE, sacral area Neuro: nonfocal and same reduced ROM- contractures reviewed and edited tubes noted Impression: Pneumonia Septic shock resolved Acute and chronic respiratory failure with hypoxia Acute renal failure Anemia Dementia Schizophrenia Hypertension H/o Atrial fibrillation COPD Previous aspiration pneumonia S/p feeding tube Plan IV Antibiotics in ASAF feeds as able respiratory care monitor vitals closely SNF meds supportive care suction as needed aspiration precautions monitor oxygen needs and reduce stabilize further and reassess monitor imaging for change oxygen therapy as is prognosis guarded impression, plan, and exam edited and reviewed in detail care discussed with RN Subjective ROS Limited/Unobtainable: Yes Condition: improving EKG Rhythm: Sinus Rhythm Residuals: minimal Tube Feeding Tolerated: yes Labs Test 03/04/19 14:45 03/05/19 09:00 Arterial Blood pH 7.462 (7.350-7.450) Arterial Blood Partial Pressure CO2 30.6 mmHg (35.0-45.0) Arterial Blood Partial Pressure O2 122.2 mmHg (75.0-100.0) Arterial Blood HCO3 21.4 mmol/L (22.0-26.0) Arterial Blood Oxygen Saturation 97.9 % (95-100) Arterial Blood Base Excess -1.8 (-2-2) Rhett Test Positive White Blood Count 6.4 K/UL (4.8-10.8) Red Blood Count 3.61 M/UL (4.70-6.10) Hemoglobin 8.8 G/DL (14.2-18.0) Hematocrit 27.7 % (42.0-52.0) Mean Corpuscular Volume 77 FL (80-99) Mean Corpuscular Hemoglobin 24.4 PG (27.0-31.0) Mean Corpuscular Hemoglobin Concent 31.9 G/DL (32.0-36.0) Red Cell Distribution Width 14.7 % (11.6-14.8) Platelet Count 137 K/UL (150-450) Mean Platelet Volume 6.9 FL (6.5-10.1) Neutrophils (%) (Auto) 70.9 % (45.0-75.0) Lymphocytes (%) (Auto) 15.4 % (20.0-45.0) Monocytes (%) (Auto) 9.9 % (1.0-10.0) Eosinophils (%) (Auto) 2.6 % (0.0-3.0) Basophils (%) (Auto) 1.2 % (0.0-2.0) Sodium Level 145 MMOL/L (136-145) Potassium Level 4.6 MMOL/L (3.5-5.1) Chloride Level 113 MMOL/L (98-107) Carbon Dioxide Level 28 MMOL/L (21-32) Anion Gap 4 mmol/L (5-15) Blood Urea Nitrogen 10 mg/dL (7-18) Creatinine 0.6 MG/DL (0.55-1.30) Estimat Glomerular Filtration Rate mL/min (>60) Glucose Level 101 MG/DL (74-106) Calcium Level 7.2 MG/DL (8.5-10.1) Vancomycin Level Trough 5.8 ug/mL (5.0-12.0) Critical Care - Objective Last 24 Hour Vital Signs Date Time Temp Pulse Resp B/P (MAP) Pulse Ox O2 Delivery O2 Flow Rate FiO2 03/08/19 04:00 103 03/08/19 04:00 98.6 103 24 132/83 (99) 98 03/08/19 04:00 Nasal Cannula 2.0 03/08/19 00:00 109 03/08/19 00:00 98.4 109 20 129/80 (96) 97 03/08/19 00:00 Nasal Cannula 2.0 03/07/19 20:30 102 22 Nasal Cannula 2.0 28 03/07/19 20:29 Nasal Cannula 2.0 28 03/07/19 20:29 97 Nasal Cannula 2.0 28 03/07/19 20:00 Nasal Cannula 2.0 03/07/19 20:00 98.1 107 24 141/82 (101) 98 03/07/19 20:00 102 03/07/19 16:00 97.7 100 20 146/87 (106) 100 03/07/19 16:00 Nasal Cannula 2.0 03/07/19 16:00 98 03/07/19 12:00 Nasal Cannula 2.0 03/07/19 12:00 97.7 99 24 136/81 (99) 98 03/07/19 11:47 101 Critical Care - Subjective ROS Limited/Unobtainable: No Condition: improving FI02: 28 Vent Support Breath Rate: 16 Vent Support Mode: CPAP Vent Tidal Volume: 450 Sputum Amount: None PEEP: 5.0 PIP: 11 Tube Feeding Amount: 55 I&O: Intake and Output 03/07/19 03/08/19 19:00 07:00 Intake Total 1770 ml 1455 ml Output Total 1200 ml 2300 ml Balance 570 ml -845 ml Intake Free Water 100 ml 100 ml IV Total 1010 ml 750 ml Tube Feeding 660 ml 605 ml Output Urine Total 1200 ml 2300 ml # Bowel Movements 1 ET-Tube: 7.5 ET Position: 26 Christopher Rogers MD Mar 08, 2019 10:47
[2019-03-08] MEDS ORDERED: Potassium Chloride 40 MEQ in 1/2 NS 1000ml 1,000 ML IV SCH ×2 (11:00→20:30)
--- NOTE | 2019-03-08 11:04 | Surgery Progress Note ---
Surgery Progress Note Subjective Procedure Performed endotracheal tube intubation Additional Comments recovering slowly. labs improved. exam stable. will continue to monitor. Objective Last 24 Hour Vital Signs Date Time Temp Pulse Resp B/P (MAP) Pulse Ox O2 Delivery O2 Flow Rate FiO2 03/08/19 04:00 103 03/08/19 04:00 98.6 103 24 132/83 (99) 98 03/08/19 04:00 Nasal Cannula 2.0 03/08/19 00:00 109 03/08/19 00:00 98.4 109 20 129/80 (96) 97 03/08/19 00:00 Nasal Cannula 2.0 03/07/19 20:30 102 22 Nasal Cannula 2.0 28 03/07/19 20:29 Nasal Cannula 2.0 28 03/07/19 20:29 97 Nasal Cannula 2.0 28 03/07/19 20:00 Nasal Cannula 2.0 03/07/19 20:00 98.1 107 24 141/82 (101) 98 03/07/19 20:00 102 03/07/19 16:00 97.7 100 20 146/87 (106) 100 03/07/19 16:00 Nasal Cannula 2.0 03/07/19 16:00 98 03/07/19 12:00 Nasal Cannula 2.0 03/07/19 12:00 97.7 99 24 136/81 (99) 98 03/07/19 11:47 101 I&O Intake and Output 03/07/19 03/08/19 19:00 07:00 Intake Total 1770 ml 1455 ml Output Total 1200 ml 2300 ml Balance 570 ml -845 ml Intake Free Water 100 ml 100 ml IV Total 1010 ml 750 ml Tube Feeding 660 ml 605 ml Output Urine Total 1200 ml 2300 ml # Bowel Movements 1 Dressing: saturated Wound: other Drains: other Cardiovascular: RSR Respiratory: clear, decreased breath sounds Abdomen: soft, present bowel sounds Extremities: cyanosis, other Laboratory Tests Test 03/08/19 04:50 White Blood Count 5.9 K/UL (4.8-10.8) Red Blood Count 3.76 M/UL (4.70-6.10) L Hemoglobin 9.1 G/DL (14.2-18.0) L Hematocrit 28.6 % (42.0-52.0) L Mean Corpuscular Volume 76 FL (80-99) L Mean Corpuscular Hemoglobin 24.3 PG (27.0-31.0) L Mean Corpuscular Hemoglobin Concent 32.0 G/DL (32.0-36.0) Red Cell Distribution Width 15.3 % (11.6-14.8) H Platelet Count 273 K/UL (150-450) Mean Platelet Volume 7.1 FL (6.5-10.1) Neutrophils (%) (Auto) 69.6 % (45.0-75.0) Lymphocytes (%) (Auto) 18.2 % (20.0-45.0) L Monocytes (%) (Auto) 9.2 % (1.0-10.0) Eosinophils (%) (Auto) 2.4 % (0.0-3.0) Basophils (%) (Auto) 0.6 % (0.0-2.0) Sodium Level 137 MMOL/L (136-145) Potassium Level 4.4 MMOL/L (3.5-5.1) Chloride Level 105 MMOL/L (98-107) Carbon Dioxide Level 26 MMOL/L (21-32) Anion Gap 6 mmol/L (5-15) Blood Urea Nitrogen 9 mg/dL (7-18) Creatinine 0.6 MG/DL (0.55-1.30) Estimat Glomerular Filtration Rate mL/min (>60) Glucose Level 85 MG/DL (74-106) Calcium Level 6.9 MG/DL (8.5-10.1) L Phosphorus Level 2.7 MG/DL (2.5-4.9) Magnesium Level 1.4 MG/DL (1.8-2.4) L Total Bilirubin 0.2 MG/DL (0.2-1.0) Aspartate Amino Transf (AST/SGOT) 23 U/L (15-37) Alanine Aminotransferase (ALT/SGPT) 30 U/L (12-78) Alkaline Phosphatase 75 U/L (46-116) Total Protein 5.7 G/DL (6.4-8.2) L Albumin 1.4 G/DL (3.4-5.0) L Globulin 4.3 g/dL Albumin/Globulin Ratio 0.3 (1.0-2.7) L Plan Problems: (1) Ulcer of lower extremity excluding decubitus ulcer Assessment & Plan: Pt presented on admission with contractures both lower ext with multiple necrotic wounds L trochanter,R tibia, and L foot. Lateral L foot (L)3.5cm x (W)11cm.90%Soft necrosis with surrounding slough along borders.Wound is malodorous. Small amt brown exudate noted.Greyish colour periwound. L Lateral metatarsal to L hallux (L)4.3cm x (W)6.9cm . Base of wound necrotic with area of fluctuance at lateral aspect L1st metatarsal.Wound is malodorous with small amt brownish exudate Greyish colour periwound. Lateral L heel (L)3cm x (W)6.6cm.100%Unstable necrosis base of wound with surrounding mixed soft slough with erythema.Wound is malodorous. Wound is malodorous with small amt brownish exudate. Plantar L foot (L)2.5cm x (W)1.5cm Unstable necrosis with indurated borders. No exudate noted. All 5 metatarsals are burgess in color. Full thickness pressure injury R tibia(L)6.5cm x (W)1cm. elongated wound with indurated red borders,10% necrosis at proximal end with #2 areas of slough- approx 10% with erythema that is dry remaining base of wound .No odor noted. Non-blanchable erythema with scattered purple areas medial L tibia(L)5.7cm x (W) 4.5cm.Site without fluctuance or induration .No elevation in skin temp. Dorsal R 2nd metatarsal head maroon with fluctuance.(L)0.8cm x (W)1.3cm. R heel boggy with non-blanchable erythema. Pressure injury to L trochanter 90% necrotic,dry with pink epithelialized borders. Dark skin tone without erythema or induration periwound .In close proximity is an area with pink epithelial tissue with a linear area in center that is brown but dry and adherent to base. Resolving pressure injury to sacrum.95% epithelial at base of wound .Small area at coccyx measuring(L)0.4cm x (W)0.3cm with yellow slough.No exudate noted. Areas of hyperpigmentation scarring noted to R and L ischial areas. Tx.Plan: Cleanse Left foot with saline. apply Dakins soaked gauze to left foot wound. cover with dry gauze and abd, wrap with kerlix Cleanse L trochanter with Saline. Apply Therahoney to L trochanter.Apply Cavilon Skin Barrier periwound. Cover with Optifoam drsg. Change daily and PRN. Cleanse R tibia with Saline.Apply therahoney. Cavilon Skin Barrier periwound.Cover with Optifoam drsg. Change Daily and prn. Apply Cavilon Skin Barrier to L medial /idalia L tibia .Cover with Optifoam drsg. Change every 7 days and prn. Apply Cavilon Skin Barrier to R heel. Cover with Optifoam drsg.Change every 7 days and PRN. Cleanse coccygeal wound with saline. Apply Therahoney.Apply Triad Paste periwound to sacrum. Cover with Optifoam drsg. Change Daily and prn. APM/KAVON Mattress overlay. Reposition at least every 2hours or as tolerated. Place Pillow between knees . Off-load heels with pillow. (2) Septic shock Assessment & Plan: Intubated for airway protection in ICU - since extubated and doing well cont with O2 as needed. labs improved iv abx fluids okay for diet will monitor prognosis guarded (3) Asymptomatic bacteriuria (4) ARF (acute renal failure) (5) Healthcare-associated pneumonia (6) Acute and chronic respiratory failure with hypoxia (7) Anemia (8) Alzheimer disease (9) Dysphagia (10) Sepsis (11) Pneumonia (12) Gastroparesis (13) Severe sepsis (14) Encounter for PEG (percutaneous endoscopic gastrostomy) (15) Decubitus ulcer of trochanteric region of left hip Rios Quiñones Mar 08, 2019 11:04
[2019-03-08 12:00] VITALS: BP 114/65
[2019-03-08] MEDS: cefTRIAXone 2 GM in D5W 110 ML IVPB SCH (13:43)
[2019-03-08] MEDS ORDERED: NS 275ml ONE (15:48)
[2019-03-08 16:00] VITALS: BP 125/81
--- NOTE | 2019-03-08 19:45 | NUR ---
HAND-OFF: Report given to Shey GARCIA, pt. transferred to Telemetry room 203-1- pt. remains stable and no signs of distress noted.
--- NOTE | 2019-03-08 19:45 | NUR ---
NURSE NOTES: pt. transferred to Telemetry room 203-1- report given to Shey GARCIA- pt. remains stable and no signs of distress noted.
--- NOTE | 2019-03-08 19:45 | NUR ---
NURSE NOTES: Received report from Jessica RN, pt. in bed awake- open eyes- no signs or symptoms of acute cardiac or respiratory distress noted, bed in lowest position and call light within easy reach, pt. appears to be sating well on 2L NC on humidifier at 97%- no distress noted, G tube running Jevity 1.2 @55cc/hr- no residual noted, Anderson intact and draining to gravity, dressings appear to be dry and intact, Bilateral wrists intact and pulses palpable, left hand 22G IV intact and patent, RFA 20G IV intact and patent, Rt. IJ TLC intact and patent, safety measures continued, will continue with plan of care. Per endorsement doctors wants to keep IJ in for now.
--- NOTE | 2019-03-08 19:49 | NUR ---
HAND-OFF: Report given to JOSE Nelson. Vital signs stable at this time with no sign of acute distress. Patien ready to be transferred to Telemetry 203 bed 2. Endorsed to follow up.
[2019-03-08 20:00] VITALS: BP 133/76
--- NOTE | 2019-03-08 20:18 | NUR ---
NURSE NOTES: Received report from JOSE Nelson. Patient was transferred to Telemetry unit from SDU without incident. No signs of acute distress or pain noted at this time. On 2L nasal cannula. AOx1; unable to make needs known. Left internal jugular triple lumen central catheter noted; patent and flushed. No erythema, bleeding, or infiltration noted. G-tube flushed and auscultated; patent. Jevity 1.2 running at 55 mls/hr. Wound dressings dry and intact. Anderson catheter draining well to gravity. Belongings list checked with transferring RN. No belongings. Patient on P200 low air loss mattress for appropriate wound management. Bed at lowest position, brakes on, siderails up x3. Call light within reach. Will continue to monitor.
[2019-03-08] MEDS ORDERED: Albuterol/Ipratropium 3ml neb HHN PRN (21:00)
[2019-03-08] MEDS ORDERED: Morphine Sulfate 2mg/ml Inj(IV/IM USE ONLY) IVP PRN (21:00)
--- NOTE | 2019-03-08 22:54 | NUR ---
NURSE NOTES: Paged Dr. Mario to clarify with him if patient's 40 mEQ KCL in 1/2 NS fluids still need to be continued since patient's current potassium level is 4.4.
--- NOTE | 2019-03-08 22:58 | NUR ---
NURSE NOTES: Received order from Dr. Mario to continue fluids, but to decrease the fluids from 40 mEq KCl in 1/2 NS to 20 mEq KCl in 1/2 NS. Noted and carried out.
[2019-03-08] MEDS ORDERED: 1/2NS w/KCl 20mEq 1000ml 1,000 ML IV ONE (23:07)
[2019-03-08] MEDS: Dyna-Hex 2% Top Sol 2oz TOPIC SCH (23:32)
[2019-03-08] MEDS: 1/2NS w/KCl 20mEq 1000ml 1,000 ML IV SCH (23:32)
[2019-03-09] VITALS: BP 118/77
[2019-03-09 04:00] VITALS: BP 130/77
--- NOTE | 2019-03-09 04:43 | NUR ---
NURSE NOTES: Patient is asleep lying semi-steward's; resting comfortably. No signs of acute distress or pain noted at this time. On 2L nasal cannula. Jevity 1.2 running at 55 mls/hr. Anderson catheter draining well to gravity.
[2019-03-09 07:33] LABS: BASOPHILS % (AUTO) 0.7 % (0.0-2.0); EOSINOPHILS % (AUTO) 0.4 % (0.0-3.0); HEMATOCRIT 27.6 % (42.0-52.0); HEMOGLOBIN 8.9 G/DL (14.2-18.0); LYMPHOCYTES % (AUTO) 10.8 % (20.0-45.0); MEAN CORPUSCULAR VOLUME 76 FL (80-99); MONOCYTES % (AUTO) 8.4 % (1.0-10.0); NEUTROPHILS % (AUTO) 79.8 % (45.0-75.0); PLATELET COUNT 314 K/UL (150-450); RED BLOOD COUNT 3.64 M/UL (4.70-6.10); RED CELL DISTRIBUTION WIDTH 15.5 % (11.6-14.8); WHITE BLOOD COUNT 8.2 K/UL (4.8-10.8)
[2019-03-09 07:45] LABS: ALANINE AMINOTRANSFERASE 23 U/L (12-78); ALBUMIN 1.3 G/DL (3.4-5.0); ALBUMIN/GLOBULIN RATIO 0.3 (1.0-2.7); ALKALINE PHOSPHATASE 67 U/L (46-116); ANION GAP 4 mmol/L (5-15); ASPARTATE AMINO TRANSFERASE 21 U/L (15-37); BILIRUBIN,TOTAL 0.3 MG/DL (0.2-1.0); BLOOD UREA NITROGEN 13 mg/dL (7-18); CALCIUM 7.2 MG/DL (8.5-10.1); CARBON DIOXIDE 27 MMOL/L (21-32); CHLORIDE 104 MMOL/L (98-107); CREATININE 0.7 MG/DL (0.55-1.30); POTASSIUM 4.5 MMOL/L (3.5-5.1); SODIUM 135 MMOL/L (136-145)
--- NOTE | 2019-03-09 07:52 | NUR ---
HAND-OFF: Report given to JOSE Rueda. Patient is asleep lying semi-steward's; resting comfortably. Anderson catheter draining well to gravity. In stable condition.
[2019-03-09 08:00] VITALS: BP 147/78
--- NOTE | 2019-03-09 08:00 | NUR ---
NURSE NOTES: Pt obtunded/asleep in bed, breathing easily on 2 lpm nasal cannula. Vital signs stable, with ST @ 107 on the monitor. IV access left hand and right forearm flushed with 10 ml NS and locked. Left IJ triple lumen with 1/2 NS + 20K running at 50 ml/hr, the other 2 lumen flushed and locked. Anderson cath in place, patent and draining clear yellow urine into collection bag at foot of bed. G-tube in place with Jevity 1.2 running at 55 ml/hr, 0 residual and 30 ml free water flush given. Pt is severely contracted BLE, on low air-loss mattress. Bed left in low position, exit alarm set, side rails up x 3 and call light left near pt's hand.
[2019-03-09] MEDS: Pantoprazole Inj IVP SCH (09:06)
[2019-03-09] MEDS: Heparin 5000 units/ml inj SUBQ SCH ×2 (09:07→21:31)
[2019-03-09] MEDS: Dakin's 0.125% Soln (Quarter Strength) 16oz TOPIC SCH (09:08)
[2019-03-09 12:00] VITALS: BP 114/65
[2019-03-09] MEDS: 1/2NS w/KCl 20mEq 1000ml 1,000 ML IV SCH (12:16)
--- NOTE | 2019-03-09 12:56 | General Progress Note ---
Assessment/Plan Assessment/Plan Emerged from septic shock. Recovered from respiratory failure . L arm edema - R/O DVT-- Duplex Neg. Infected decubs - GS following In [facility]. Check labs. OK V Tach - per Card.. Subjective Allergies: Coded Allergies: No Known Allergies (Unverified , 02/25/19) Subjective Confused. Run of V Tach Objective Last 24 Hour Vital Signs Date Time Temp Pulse Resp B/P (MAP) Pulse Ox O2 Delivery O2 Flow Rate FiO2 03/09/19 12:00 96 03/09/19 09:00 Nasal Cannula 2.0 03/09/19 08:00 97.8 112 20 147/78 (101) 98 03/09/19 08:00 112 03/09/19 07:23 108 22 Nasal Cannula 2.0 28 03/09/19 07:23 96 Nasal Cannula 2.0 28 03/09/19 07:23 Nasal Cannula 2.0 28 03/09/19 04:00 111 03/09/19 04:00 98.0 107 17 130/77 (94) 96 03/09/19 00:00 98.0 113 17 118/77 (91) 95 03/09/19 00:00 107 03/08/19 21:00 Nasal Cannula 2.0 03/08/19 20:30 Nasal Cannula 2.0 28 03/08/19 20:30 105 22 Nasal Cannula 2.0 28 03/08/19 20:30 96 Nasal Cannula 2.0 28 03/08/19 20:00 100 03/08/19 20:00 99.0 104 16 133/76 (95) 99 03/08/19 16:00 98.1 104 24 125/81 (96) 98 03/08/19 16:00 Nasal Cannula 2.0 03/08/19 16:00 93 Intake and Output 03/08/19 03/09/19 19:00 07:00 Intake Total 1570 ml 1585 ml Output Total 2100 ml 1600 ml Balance -530 ml -15 ml Intake Free Water 200 ml 120 ml IV Total 710 ml 860 ml Tube Feeding 660 ml 605 ml Output Urine Total 2100 ml 1600 ml Laboratory Tests 03/09/19 06:36: White Blood Count 8.2, Red Blood Count 3.64L, Hemoglobin 8.9L, Hematocrit 27.6L , Mean Corpuscular Volume 76L, Mean Corpuscular Hemoglobin 24.3L, Mean Corpuscular Hemoglobin Concent 32.2, Red Cell Distribution Width 15.5H, Platelet Count 314, Mean Platelet Volume 7.0, Neutrophils (%) (Auto) 79.8H, Lymphocytes (%) (Auto) 10.8L, Monocytes (%) (Auto) 8.4, Eosinophils (%) (Auto) 0.4, Basophils (%) (Auto) 0.7, Sodium Level 135L, Potassium Level 4.5, Chloride Level 104, Carbon Dioxide Level 27, Anion Gap 4L, Blood Urea Nitrogen 13, Creatinine 0.7, Estimat Glomerular Filtration Rate , Glucose Level 92, Calcium Level 7.2L, Magnesium Level 2.1, Total Bilirubin 0.3, Aspartate Amino Transf ( AST/SGOT) 21, Alanine Aminotransferase (ALT/SGPT) 23, Alkaline Phosphatase 67, Total Protein 5.8L, Albumin 1.3L, Globulin 4.5, Albumin/Globulin Ratio 0.3L Height (Feet): 5 Height (Inches): 4.00 Weight (Pounds): 139 Objective Extubated. On O2 2 L /min NC CV RR Lungs B Ronchi. Abd SNT. BS + E Contractures. L arm +3 edema. Has L IJ Central Line Sacral decub. Neuro - obtunded - non focal. FC cloudy, concentrated urine. Ervin Mario MD Mar 09, 2019 12:56
--- NOTE | 2019-03-09 12:56 | NUR ---
NURSE NOTES: Pt had 7 sec run of V-tach then spontaneously converted back to SR @ 96. Dr Doty notified, no new orders. Addendum: 03/09/19 at 1301 by MISTY JUNG RN Rhythm was 7 sec of PSVT
[2019-03-09] MEDS ORDERED: cefTRIAXone 2 GM in D5W 110 ML IVPB SCH (13:00)
--- NOTE | 2019-03-09 13:03 | General Progress Note ---
Assessment/Plan Assessment/Plan Emerged from septic shock. Recovered from respiratory failure . L arm edema - R/O DVT-- Duplex Neg. Infected decubs - GS following In ASAF. Check labs. OK Short SVT. Stable for DC Subjective Allergies: Coded Allergies: No Known Allergies (Unverified , 02/25/19) Subjective Confused. Run of SVT Objective Last 24 Hour Vital Signs Date Time Temp Pulse Resp B/P (MAP) Pulse Ox O2 Delivery O2 Flow Rate FiO2 03/09/19 12:00 96 03/09/19 09:00 Nasal Cannula 2.0 03/09/19 08:00 97.8 112 20 147/78 (101) 98 03/09/19 08:00 112 03/09/19 07:23 108 22 Nasal Cannula 2.0 28 03/09/19 07:23 96 Nasal Cannula 2.0 28 03/09/19 07:23 Nasal Cannula 2.0 28 03/09/19 04:00 111 03/09/19 04:00 98.0 107 17 130/77 (94) 96 03/09/19 00:00 98.0 113 17 118/77 (91) 95 03/09/19 00:00 107 03/08/19 21:00 Nasal Cannula 2.0 03/08/19 20:30 Nasal Cannula 2.0 28 03/08/19 20:30 105 22 Nasal Cannula 2.0 28 03/08/19 20:30 96 Nasal Cannula 2.0 28 03/08/19 20:00 100 03/08/19 20:00 99.0 104 16 133/76 (95) 99 03/08/19 16:00 98.1 104 24 125/81 (96) 98 03/08/19 16:00 Nasal Cannula 2.0 03/08/19 16:00 93 Intake and Output 03/08/19 03/09/19 19:00 07:00 Intake Total 1570 ml 1585 ml Output Total 2100 ml 1600 ml Balance -530 ml -15 ml Intake Free Water 200 ml 120 ml IV Total 710 ml 860 ml Tube Feeding 660 ml 605 ml Output Urine Total 2100 ml 1600 ml Laboratory Tests 03/09/19 06:36: White Blood Count 8.2, Red Blood Count 3.64L, Hemoglobin 8.9L, Hematocrit 27.6L , Mean Corpuscular Volume 76L, Mean Corpuscular Hemoglobin 24.3L, Mean Corpuscular Hemoglobin Concent 32.2, Red Cell Distribution Width 15.5H, Platelet Count 314, Mean Platelet Volume 7.0, Neutrophils (%) (Auto) 79.8H, Lymphocytes (%) (Auto) 10.8L, Monocytes (%) (Auto) 8.4, Eosinophils (%) (Auto) 0.4, Basophils (%) (Auto) 0.7, Sodium Level 135L, Potassium Level 4.5, Chloride Level 104, Carbon Dioxide Level 27, Anion Gap 4L, Blood Urea Nitrogen 13, Creatinine 0.7, Estimat Glomerular Filtration Rate , Glucose Level 92, Calcium Level 7.2L, Magnesium Level 2.1, Total Bilirubin 0.3, Aspartate Amino Transf ( AST/SGOT) 21, Alanine Aminotransferase (ALT/SGPT) 23, Alkaline Phosphatase 67, Total Protein 5.8L, Albumin 1.3L, Globulin 4.5, Albumin/Globulin Ratio 0.3L Height (Feet): 5 Height (Inches): 4.00 Weight (Pounds): 139 Objective Extubated. On O2 2 L /min NC CV RR Lungs B Ronchi. Abd SNT. BS + E Contractures. L arm +3 edema. Has L IJ Central Line Sacral decub. Neuro - obtunded - non focal. FC cloudy, concentrated urine. Ervin Mario MD Mar 09, 2019 13:03
[2019-03-09] MEDS ORDERED: HEPARIN SO5000 UNIT2 SUBQ (13:05)
[2019-03-09] MEDS ORDERED: DUONEB 0.5-3(2.53 ML HHN (13:05)
[2019-03-09 16:00] VITALS: BP 122/69
--- NOTE | 2019-03-09 17:16 | Pulmonolgy Critical Care Note ---
Critical Care - Asmt/Plan Assessment/Plan: Pulmonary CCM Progress Noted HPI Patient is an 83-year-old male with a history of Dementia, Schizophrenia, Bed bound in Custodial, HTN, Atrial fibrillation, COPD, previous pneumonia, feeding tube. Admitted with multiple decubitus ulcers, poorly nourished, shortness of breath. Noted to be septic in the ED with evidence of pneumonia, multiple skin wounds. Unable to get any history from this patient because of his condition and nonverbal. Allergies: No Known Allergies Past Medical History: Dementia, Schizophrenia, Bed bound in Custodial, Hypertension, Atrial fibrillation, COPD, previous pneumonia, feeding tube Past Surgical History: G tube All Other Systems: limited - Secondary to condition Physical Exam Vital Signs Noted General Appearance: moderate distress, cachetic, Chronically Ill, wasted Head: normocephalic, atraumatic Eyes: bilateral eye PERRL, bilateral eye EOMI ENT: hearing grossly normal, dry mucus membranes Neck: full range of motion, supple, no meningismus Respiratory: chest non-tender, no current respiratory distress on O2, occaional rhonchi Cardiovascular: regular, rhythm, no murmur, tachycardia Gastrointestinal: normal bowel sounds, non tender, no mass, no organomegaly, no bruit, non-distended Musculoskeletal: back normal, other - Contracted Psychiatric: mood/affect normal Skin: warm/dry, multiple decubitus ulcer LE, sacral area Neuro: nonfocal and same reduced ROM- contractures reviewed and edited tubes noted Impression: Pneumonia Septic shock resolved Acute and chronic respiratory failure with hypoxia Acute renal failure Anemia Dementia Schizophrenia Hypertension H/o Atrial fibrillation COPD Previous aspiration pneumonia S/p feeding tube Plan IV Antibiotics in ASAF feeds as able respiratory care monitor vitals closely SNF meds supportive care suction as needed aspiration precautions monitor oxygen needs and reduce stabilize further and reassess monitor imaging for change oxygen therapy as is prognosis guarded impression, plan, and exam edited and reviewed in detail care discussed with RN Subjective ROS Limited/Unobtainable: Yes Condition: improving EKG Rhythm: Sinus Rhythm Residuals: minimal Tube Feeding Tolerated: yes Labs Test 03/04/19 14:45 03/05/19 09:00 Arterial Blood pH 7.462 (7.350-7.450) Arterial Blood Partial Pressure CO2 30.6 mmHg (35.0-45.0) Arterial Blood Partial Pressure O2 122.2 mmHg (75.0-100.0) Arterial Blood HCO3 21.4 mmol/L (22.0-26.0) Arterial Blood Oxygen Saturation 97.9 % (95-100) Arterial Blood Base Excess -1.8 (-2-2) Rhett Test Positive White Blood Count 6.4 K/UL (4.8-10.8) Red Blood Count 3.61 M/UL (4.70-6.10) Hemoglobin 8.8 G/DL (14.2-18.0) Hematocrit 27.7 % (42.0-52.0) Mean Corpuscular Volume 77 FL (80-99) Mean Corpuscular Hemoglobin 24.4 PG (27.0-31.0) Mean Corpuscular Hemoglobin Concent 31.9 G/DL (32.0-36.0) Red Cell Distribution Width 14.7 % (11.6-14.8) Platelet Count 137 K/UL (150-450) Mean Platelet Volume 6.9 FL (6.5-10.1) Neutrophils (%) (Auto) 70.9 % (45.0-75.0) Lymphocytes (%) (Auto) 15.4 % (20.0-45.0) Monocytes (%) (Auto) 9.9 % (1.0-10.0) Eosinophils (%) (Auto) 2.6 % (0.0-3.0) Basophils (%) (Auto) 1.2 % (0.0-2.0) Sodium Level 145 MMOL/L (136-145) Potassium Level 4.6 MMOL/L (3.5-5.1) Chloride Level 113 MMOL/L (98-107) Carbon Dioxide Level 28 MMOL/L (21-32) Anion Gap 4 mmol/L (5-15) Blood Urea Nitrogen 10 mg/dL (7-18) Creatinine 0.6 MG/DL (0.55-1.30) Estimat Glomerular Filtration Rate mL/min (>60) Glucose Level 101 MG/DL (74-106) Calcium Level 7.2 MG/DL (8.5-10.1) Vancomycin Level Trough 5.8 ug/mL (5.0-12.0) Critical Care - Objective Last 24 Hour Vital Signs Date Time Temp Pulse Resp B/P (MAP) Pulse Ox O2 Delivery O2 Flow Rate FiO2 03/09/19 16:00 97.1 93 22 122/69 (86) 98 03/09/19 16:00 93 03/09/19 12:00 96 03/09/19 12:00 98.1 96 20 114/65 (81) 96 03/09/19 09:00 Nasal Cannula 2.0 03/09/19 08:00 97.8 112 20 147/78 (101) 98 03/09/19 08:00 112 03/09/19 07:23 108 22 Nasal Cannula 2.0 28 03/09/19 07:23 96 Nasal Cannula 2.0 28 03/09/19 07:23 Nasal Cannula 2.0 28 03/09/19 04:00 111 03/09/19 04:00 98.0 107 17 130/77 (94) 96 03/09/19 00:00 98.0 113 17 118/77 (91) 95 03/09/19 00:00 107 03/08/19 21:00 Nasal Cannula 2.0 03/08/19 20:30 Nasal Cannula 2.0 28 03/08/19 20:30 105 22 Nasal Cannula 2.0 28 03/08/19 20:30 96 Nasal Cannula 2.0 28 03/08/19 20:00 100 03/08/19 20:00 99.0 104 16 133/76 (95) 99 Critical Care - Subjective ROS Limited/Unobtainable: No FI02: 28 Vent Support Breath Rate: 16 Vent Support Mode: CPAP Vent Tidal Volume: 450 Sputum Amount: None PEEP: 5.0 PIP: 11 Tube Feeding Amount: 55 I&O: Intake and Output 03/08/19 03/09/19 19:00 07:00 Intake Total 1570 ml 1585 ml Output Total 2100 ml 1600 ml Balance -530 ml -15 ml Intake Free Water 200 ml 120 ml IV Total 710 ml 860 ml Tube Feeding 660 ml 605 ml Output Urine Total 2100 ml 1600 ml ET-Tube: 7.5 ET Position: 26 Christopher Rogers MD Mar 09, 2019 17:16
--- NOTE | 2019-03-09 18:24 | Cardiology Progress Note ---
Assessment/Plan Assessment/Plan one epiosde of SVT, will follow, if has recurrent epioses, will ask pulmonary to decrease frequency or dose of bronchodilators Subjective Subjective the patient is more alert, he is trying to speak and interact Objective Last 24 Hour Vital Signs Date Time Temp Pulse Resp B/P (MAP) Pulse Ox O2 Delivery O2 Flow Rate FiO2 03/09/19 16:00 97.1 93 22 122/69 (86) 98 03/09/19 16:00 93 03/09/19 12:00 96 03/09/19 12:00 98.1 96 20 114/65 (81) 96 03/09/19 09:00 Nasal Cannula 2.0 03/09/19 08:00 97.8 112 20 147/78 (101) 98 03/09/19 08:00 112 03/09/19 07:23 108 22 Nasal Cannula 2.0 28 03/09/19 07:23 96 Nasal Cannula 2.0 28 03/09/19 07:23 Nasal Cannula 2.0 28 03/09/19 04:00 111 03/09/19 04:00 98.0 107 17 130/77 (94) 96 03/09/19 00:00 98.0 113 17 118/77 (91) 95 03/09/19 00:00 107 03/08/19 21:00 Nasal Cannula 2.0 03/08/19 20:30 Nasal Cannula 2.0 28 03/08/19 20:30 105 22 Nasal Cannula 2.0 28 03/08/19 20:30 96 Nasal Cannula 2.0 28 03/08/19 20:00 100 03/08/19 20:00 99.0 104 16 133/76 (95) 99 General Appearance: other - ill apearing, not in acute distress EENT: PERRL/EOMI Neck: supple, no JVD Rhythm: NSR Cardiovascular: normal rate Respiratory/Chest: rhonchi - bilaterally Abdomen: soft Extremities: other - sevee contracture and ulcers Intake and Output 03/08/19 03/09/19 19:00 07:00 Intake Total 1570 ml 1585 ml Output Total 2100 ml 1600 ml Balance -530 ml -15 ml Intake Free Water 200 ml 120 ml IV Total 710 ml 860 ml Tube Feeding 660 ml 605 ml Output Urine Total 2100 ml 1600 ml Laboratory Tests Test 4/13/19 06:36 White Blood Count 8.2 K/UL (4.8-10.8) Red Blood Count 3.64 M/UL (4.70-6.10) L Hemoglobin 8.9 G/DL (14.2-18.0) L Hematocrit 27.6 % (42.0-52.0) L Mean Corpuscular Volume 76 FL (80-99) L Mean Corpuscular Hemoglobin 24.3 PG (27.0-31.0) L Mean Corpuscular Hemoglobin Concent 32.2 G/DL (32.0-36.0) Red Cell Distribution Width 15.5 % (11.6-14.8) H Platelet Count 314 K/UL (150-450) Mean Platelet Volume 7.0 FL (6.5-10.1) Neutrophils (%) (Auto) 79.8 % (45.0-75.0) H Lymphocytes (%) (Auto) 10.8 % (20.0-45.0) L Monocytes (%) (Auto) 8.4 % (1.0-10.0) Eosinophils (%) (Auto) 0.4 % (0.0-3.0) Basophils (%) (Auto) 0.7 % (0.0-2.0) Sodium Level 135 MMOL/L (136-145) L Potassium Level 4.5 MMOL/L (3.5-5.1) Chloride Level 104 MMOL/L (98-107) Carbon Dioxide Level 27 MMOL/L (21-32) Anion Gap 4 mmol/L (5-15) L Blood Urea Nitrogen 13 mg/dL (7-18) Creatinine 0.7 MG/DL (0.55-1.30) Estimat Glomerular Filtration Rate mL/min (>60) Glucose Level 92 MG/DL (74-106) Calcium Level 7.2 MG/DL (8.5-10.1) L Magnesium Level 2.1 MG/DL (1.8-2.4) Total Bilirubin 0.3 MG/DL (0.2-1.0) Aspartate Amino Transf (AST/SGOT) 21 U/L (15-37) Alanine Aminotransferase (ALT/SGPT) 23 U/L (12-78) Alkaline Phosphatase 67 U/L (46-116) Total Protein 5.8 G/DL (6.4-8.2) L Albumin 1.3 G/DL (3.4-5.0) L Globulin 4.5 g/dL Albumin/Globulin Ratio 0.3 (1.0-2.7) L episode of SVT with rapid ventricular rate this morning Sally Doty MD Mar 09, 2019 18:24
--- NOTE | 2019-03-09 19:17 | NUR ---
NURSE NOTES: Received report from JOSE Rueda. Patient is awake lying semi-steward's; resting comfortably. No signs of acute distress or pain noted at this time. On 2L nasal cannula. AOx1; unable to verbalize needs. Left internal jugular triple lumen central catheter noted; patent and flushed. No erythema, bleeding, or infiltration noted. G-tube flushed and auscultated; patent. Jevity 1.2 running at 55 mls/hr. Wound dressings dry and intact. Anderson catheter draining well to gravity. Patient on P200 low air loss mattress for appropriate wound management. Bed at lowest position, brakes on, siderails up x3. Call light within reach. Will continue to monitor.
[2019-03-09 20:00] VITALS: BP 136/78
[2019-03-09] MEDS ORDERED: Sterile Water Irrig 1000ml IRRIG ONE (20:42)
[2019-03-09] MEDS: Dyna-Hex 2% Top Sol 2oz TOPIC SCH (21:30)
[2019-03-09] MEDS ORDERED: NS 275ml ONE (21:40)
[2019-03-09] MEDS ORDERED: Tubing IV Secondary IV ONE (21:40)
[2019-03-10] VITALS: BP 117/68
[2019-03-10] MEDS: 1/2NS w/KCl 20mEq 1000ml 1,000 ML IV SCH (01:58)
[2019-03-10 04:00] VITALS: BP 137/77
--- NOTE | 2019-03-10 04:17 | NUR ---
NURSE NOTES: Patient is asleep lying semi-steward's; resting comfortably. No signs of acute distress or pain noted at this time. Jevity 1.2 running at 55 mls/hr. Anderson catheter draining well to gravity.
[2019-03-10 08:00] VITALS: BP 114/67
--- NOTE | 2019-03-10 08:02 | NUR ---
HAND-OFF: Report given to JOSE Blackburn. Patient is asleep lying semi-steward's; resting comfortably. Jevity 1.2 running at 55 mls/hr. Anderson catheter draining well to gravity. In stable condition.
--- NOTE | 2019-03-10 08:14 | NUR ---
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 Bed locked and in lowest position. Call light with in reach. will continue plan of care Will do lateral foot wound care, the rest were done by Night RN.
[2019-03-10] MEDS: Pantoprazole Inj IVP SCH (09:13)
[2019-03-10] MEDS: Heparin 5000 units/ml inj SUBQ SCH (09:14)
[2019-03-10] MEDS: Dakin's 0.125% Soln (Quarter Strength) 16oz TOPIC SCH (09:15)
[2019-03-10 12:00] VITALS: BP 121/68
--- NOTE | 2019-03-10 12:02 | Infectious Diseases Prog Note ---
Assessment/Plan Assessment/Plan A: 1. Proteus sepsis 2. proteus UTI 3. leucocytosis resolved 4. shock, off pressors 5. respiratory failure 6. schizophrenia 7. renal failure improving 8. 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 discontinue Rocephin 2. observe off antibiotics Subjective ROS Limited/Unobtainable: Yes Neurologic: Reports: confusion, other - on restraint Allergies: Coded Allergies: No Known Allergies (Unverified , 02/25/19) Objective Vital Signs Last 24 Hour Vital Signs Date Time Temp Pulse Resp B/P (MAP) Pulse Ox O2 Delivery O2 Flow Rate FiO2 03/10/19 09:00 Nasal Cannula 2.0 Nasal Cannula 2.0 03/10/19 08:12 Nasal Cannula 2.0 28 03/10/19 08:12 96 Nasal Cannula 2.0 28 03/10/19 08:11 88 20 Nasal Cannula 2.0 28 03/10/19 08:00 98.2 96 20 114/67 (83) 97 03/10/19 08:00 91 03/10/19 04:00 98.3 102 18 137/77 (97) 96 03/10/19 04:00 97 03/10/19 00:00 98.7 98 16 117/68 (84) 96 03/10/19 00:00 93 03/09/19 21:00 Nasal Cannula 2.0 03/09/19 20:00 98.6 94 16 136/78 (97) 94 03/09/19 20:00 91 03/09/19 19:41 96 Nasal Cannula 2.0 28 03/09/19 19:41 94 22 Nasal Cannula 2.0 28 03/09/19 19:41 Nasal Cannula 2.0 28 03/09/19 16:00 97.1 93 22 122/69 (86) 98 03/09/19 16:00 93 Height (Feet): 5 Height (Inches): 4.00 Weight (Pounds): 124 General Appearance: no acute distress HEENT: mucous membranes moist Respiratory/Chest: lungs clear Cardiovascular: normal rate, other - left IJ central line Abdomen: soft, non tender, other - GT feeding Extremities: no edema Neurologic/Psychiatric: disoriented Current Medications Medications (Trade) Dose Ordered Sig/Mckenzie Route PRN Reason Start Time Stop Time Status Last Admin Dose Admin Albuterol/ Ipratropium (Albuterol/ Ipratropium) 3 ml Q4H PRN HHN Shortness of Breath 03/08/19 21:00 03/13/19 20:59 Ceftriaxone Sodium 2 gm/ Dextrose 110 ml @ 220 mls/hr Q24H IVPB 03/09/19 13:00 03/10/19 12:59 03/09/19 12:17 Chlorhexidine Gluconate (Liz-Hex 2%) 1 applic DAILY@2000 TOPIC 03/08/19 23:15 04/07/19 23:14 03/09/19 21:30 Heparin Sodium (Porcine) (Heparin 5000 units/ml) 5,000 units EVERY 12 HOURS SUBQ 03/08/19 21:00 04/05/19 20:59 03/10/19 09:14 Morphine Sulfate (Morphine Sulfate) 2 mg Q4H PRN IVP Severe Pain (Pain Scale 7-10) 03/08/19 21:00 03/15/19 20:59 Pantoprazole (Protonix) 40 mg DAILY IVP 03/09/19 09:00 03/31/19 08:59 03/10/19 09:13 Sodium 1,000 ml @ 75 mls/hr [id number] IV 03/08/19 23:15 04/07/19 23:14 03/10/19 01:58 Sodium Hypochlorite (Dakin's Quarter Strength) 1 applic DAILY TOPIC 03/09/19 09:00 03/31/19 12:59 03/10/19 09:15 Lev Pardo MD Mar 10, 2019 12:02
--- NOTE | 2019-03-10 12:28 | Nephrology Progress Note ---
Assessment/Plan Assessment 1. Proteus sepsis 2. UTI 3. leucocytosis resolved 4. shock, off pressors 5. respiratory failure 6. schizophrenia 7. renal failure improving 8. dementia Plan Plan continue iv anabiotic monitoring electrolyte and renal function nutritional support Subjective Constitutional: Reports: no symptoms HEENT: Reports: no symptoms Genitourinary: Reports: no symptoms Neurologic/Psychiatric: Reports: no symptoms Subjective pt is nor verbal Objective Objective Last 24 Hour Vital Signs Date Time Temp Pulse Resp B/P (MAP) Pulse Ox O2 Delivery O2 Flow Rate FiO2 03/10/19 09:00 Nasal Cannula 2.0 Nasal Cannula 2.0 03/10/19 08:12 Nasal Cannula 2.0 28 03/10/19 08:12 96 Nasal Cannula 2.0 28 03/10/19 08:11 88 20 Nasal Cannula 2.0 28 03/10/19 08:00 98.2 96 20 114/67 (83) 97 03/10/19 08:00 91 03/10/19 04:00 98.3 102 18 137/77 (97) 96 03/10/19 04:00 97 03/10/19 00:00 98.7 98 16 117/68 (84) 96 03/10/19 00:00 93 03/09/19 21:00 Nasal Cannula 2.0 03/09/19 20:00 98.6 94 16 136/78 (97) 94 03/09/19 20:00 91 03/09/19 19:41 96 Nasal Cannula 2.0 28 03/09/19 19:41 94 22 Nasal Cannula 2.0 28 03/09/19 19:41 Nasal Cannula 2.0 28 03/09/19 16:00 97.1 93 22 122/69 (86) 98 03/09/19 16:00 93 Intake and Output 03/09/19 03/10/19 18:59 06:59 Intake Total 1800 ml 1608 ml Output Total 1300 ml 2000 ml Balance 500 ml -392 ml Intake Free Water 240 ml 120 ml IV Total 900 ml 828 ml Tube Feeding 660 ml 660 ml Output Urine Total 1300 ml 2000 ml Height (Feet): 5 Height (Inches): 4.00 Weight (Pounds): 124 Objective HEENT:no juvp Lung : CTA CVS :RRR ,S1,S2 ABD: soft not tender not distended EXT; NO edema no clubbing BahmaniRayna MD Mar 10, 2019 12:28
--- NOTE | 2019-03-10 14:13 | Cardiology Progress Note ---
Assessment/Plan Assessment/Plan no more SVT according to the monitor, discontinue IVF, the patient tolerates G tube feeding Subjective Subjective the patient is more alert, he is trying to speak and interact Objective Last 24 Hour Vital Signs Date Time Temp Pulse Resp B/P (MAP) Pulse Ox O2 Delivery O2 Flow Rate FiO2 03/10/19 09:00 Nasal Cannula 2.0 Nasal Cannula 2.0 03/10/19 08:12 Nasal Cannula 2.0 28 03/10/19 08:12 96 Nasal Cannula 2.0 28 03/10/19 08:11 88 20 Nasal Cannula 2.0 28 03/10/19 08:00 98.2 96 20 114/67 (83) 97 03/10/19 08:00 91 03/10/19 04:00 98.3 102 18 137/77 (97) 96 03/10/19 04:00 97 03/10/19 00:00 98.7 98 16 117/68 (84) 96 03/10/19 00:00 93 03/09/19 21:00 Nasal Cannula 2.0 03/09/19 20:00 98.6 94 16 136/78 (97) 94 03/09/19 20:00 91 03/09/19 19:41 96 Nasal Cannula 2.0 28 03/09/19 19:41 94 22 Nasal Cannula 2.0 28 03/09/19 19:41 Nasal Cannula 2.0 28 03/09/19 16:00 97.1 93 22 122/69 (86) 98 03/09/19 16:00 93 General Appearance: alert EENT: PERRL/EOMI Neck: no JVD Rhythm: NSR Cardiovascular: normal rate Respiratory/Chest: crackles/rales - at bases only Abdomen: soft Extremities: other - severe deformity Intake and Output 03/09/19 03/10/19 18:59 06:59 Intake Total 1800 ml 1608 ml Output Total 1300 ml 2000 ml Balance 500 ml -392 ml Intake Free Water 240 ml 120 ml IV Total 900 ml 828 ml Tube Feeding 660 ml 660 ml Output Urine Total 1300 ml 2000 ml Sally Doty MD Mar 10, 2019 14:13
[2019-03-10 16:00] VITALS: BP 131/78
--- NOTE | 2019-03-10 17:19 | NUR ---
NURSE NOTES: contacted [facility] and gave report to Laura GARCIA. pt will be leaving [place] around 1800 when ambulance picks him up. Pt will be admitted to room 213A per Laura at [facility].
--- NOTE | 2019-03-10 18:15 | Pulmonolgy Critical Care Note ---
Critical Care - Asmt/Plan Assessment/Plan: Pulmonary CCM Progress Noted HPI Patient is an 83-year-old male with a history of Dementia, Schizophrenia, Bed bound in Care Home, HTN, Atrial fibrillation, COPD, previous pneumonia, feeding tube. Admitted with multiple decubitus ulcers, poorly nourished, shortness of breath. Noted to be septic in the ED with evidence of pneumonia, multiple skin wounds. Unable to get any history from this patient because of his condition and nonverbal. Stable overnight Allergies: No Known Allergies Past Medical History: Dementia, Schizophrenia, Bed bound in Care Home, Hypertension, Atrial fibrillation, COPD, previous pneumonia, feeding tube Past Surgical History: G tube All Other Systems: limited - Secondary to condition Physical Exam Vital Signs Noted General Appearance: moderate distress, cachetic, Chronically Ill, wasted Head: normocephalic, atraumatic Eyes: bilateral eye PERRL, bilateral eye EOMI ENT: hearing grossly normal, dry mucus membranes Neck: full range of motion, supple, no meningismus Respiratory: chest non-tender, no current respiratory distress on O2, occaional rhonchi Cardiovascular: regular, rhythm, no murmur, tachycardia Gastrointestinal: normal bowel sounds, non tender, no mass, no organomegaly, no bruit, non-distended Musculoskeletal: back normal, other - Contracted Psychiatric: mood/affect normal Skin: warm/dry, multiple decubitus ulcer LE, sacral area Neuro: nonfocal and same reduced ROM- contractures reviewed and edited tubes noted Impression: Pneumonia Septic shock resolved Acute and chronic respiratory failure with hypoxia Acute renal failure Anemia Dementia Schizophrenia Hypertension H/o Atrial fibrillation COPD Previous aspiration pneumonia S/p feeding tube Plan IV Antibiotics in ASAF feeds as able respiratory care monitor vitals closely SNF meds supportive care suction as needed aspiration precautions monitor oxygen needs and reduce stabilize further and reassess monitor imaging for change oxygen therapy as is prognosis guarded impression, plan, and exam edited and reviewed in detail care discussed with RN Subjective ROS Limited/Unobtainable: Yes Condition: improving EKG Rhythm: Sinus Rhythm Residuals: minimal Tube Feeding Tolerated: yes Labs Test 03/04/19 14:45 03/05/19 09:00 Arterial Blood pH 7.462 (7.350-7.450) Arterial Blood Partial Pressure CO2 30.6 mmHg (35.0-45.0) Arterial Blood Partial Pressure O2 122.2 mmHg (75.0-100.0) Arterial Blood HCO3 21.4 mmol/L (22.0-26.0) Arterial Blood Oxygen Saturation 97.9 % (95-100) Arterial Blood Base Excess -1.8 (-2-2) Rhett Test Positive White Blood Count 6.4 K/UL (4.8-10.8) Red Blood Count 3.61 M/UL (4.70-6.10) Hemoglobin 8.8 G/DL (14.2-18.0) Hematocrit 27.7 % (42.0-52.0) Mean Corpuscular Volume 77 FL (80-99) Mean Corpuscular Hemoglobin 24.4 PG (27.0-31.0) Mean Corpuscular Hemoglobin Concent 31.9 G/DL (32.0-36.0) Red Cell Distribution Width 14.7 % (11.6-14.8) Platelet Count 137 K/UL (150-450) Mean Platelet Volume 6.9 FL (6.5-10.1) Neutrophils (%) (Auto) 70.9 % (45.0-75.0) Lymphocytes (%) (Auto) 15.4 % (20.0-45.0) Monocytes (%) (Auto) 9.9 % (1.0-10.0) Eosinophils (%) (Auto) 2.6 % (0.0-3.0) Basophils (%) (Auto) 1.2 % (0.0-2.0) Sodium Level 145 MMOL/L (136-145) Potassium Level 4.6 MMOL/L (3.5-5.1) Chloride Level 113 MMOL/L (98-107) Carbon Dioxide Level 28 MMOL/L (21-32) Anion Gap 4 mmol/L (5-15) Blood Urea Nitrogen 10 mg/dL (7-18) Creatinine 0.6 MG/DL (0.55-1.30) Estimat Glomerular Filtration Rate mL/min (>60) Glucose Level 101 MG/DL (74-106) Calcium Level 7.2 MG/DL (8.5-10.1) Vancomycin Level Trough 5.8 ug/mL (5.0-12.0) Critical Care - Objective Last 24 Hour Vital Signs Date Time Temp Pulse Resp B/P (MAP) Pulse Ox O2 Delivery O2 Flow Rate FiO2 03/10/19 12:00 98.1 99 20 121/68 (85) 98 03/10/19 12:00 96 03/10/19 09:00 Nasal Cannula 2.0 Nasal Cannula 2.0 03/10/19 08:12 Nasal Cannula 2.0 28 03/10/19 08:12 96 Nasal Cannula 2.0 28 03/10/19 08:11 88 20 Nasal Cannula 2.0 28 03/10/19 08:00 98.2 96 20 114/67 (83) 97 03/10/19 08:00 91 03/10/19 04:00 98.3 102 18 137/77 (97) 96 03/10/19 04:00 97 03/10/19 00:00 98.7 98 16 117/68 (84) 96 03/10/19 00:00 93 03/09/19 21:00 Nasal Cannula 2.0 03/09/19 20:00 98.6 94 16 136/78 (97) 94 03/09/19 20:00 91 03/09/19 19:41 96 Nasal Cannula 2.0 28 03/09/19 19:41 94 22 Nasal Cannula 2.0 28 03/09/19 19:41 Nasal Cannula 2.0 28 Critical Care - Subjective ROS Limited/Unobtainable: No FI02: 28 Vent Support Breath Rate: 16 Vent Support Mode: CPAP Vent Tidal Volume: 450 Sputum Amount: None PEEP: 5.0 PIP: 11 Tube Feeding Amount: 55 I&O: Intake and Output 03/09/19 03/10/19 19:00 07:00 Intake Total 1800 ml 1553 ml Output Total 1300 ml 2000 ml Balance 500 ml -447 ml Intake Free Water 240 ml 120 ml IV Total 900 ml 828 ml Tube Feeding 660 ml 605 ml Output Urine Total 1300 ml 2000 ml ET-Tube: 7.5 ET Position: 26 Christopher Rogers MD Mar 10, 2019 18:14
--- NOTE | 2019-03-10 19:27 | NUR ---
NURSE NOTES: DC. Mr. Smith's both IV's as well as central line. Central line tip is intact. Applied pressure on site and 4x4 on the area site is not bleeding.
--- NOTE | 2019-03-10 20:08 | NUR ---
pt transported in [facility] via ambulance to [facility]. Pt in stable condition. hall monitor off.
--- NOTE | 2019-03-12 11:30 | Discharge Summary ---
Discharge Summary Discharge Summary _ DATE OF ADMISSION: 02/28/2019 DATE OF DISCHARGE: 03/10/2019 DISCHARGED BY: Dr. Mario REASON FOR ADMISSION: 83 years old male with past medical history of COPD, organic brain syndrome, multiple decubitus ulcer, status post IVC filter secondary to DVT, resident of retirement facility, was brought for evaluation due to shortness of breath and altered level of consciousness. Upon evaluation patient was febrile, hypotensive, tachycardic and tachypneic. Central line was placed for anticipated pressors. Chest x-ray confirmed placement of left jugular central venous catheter with no radiographic evidence of complication. Bilateral interstitial and airspace infiltrates versus edema noted. Laboratory workup revealed leukocytosis WBC 14.8, hemoglobin 11.9, hematocrit 37. Platelet count 347. INR 1.2. Chemistry revealed sodium 148, potassium 3.9. BUN 82, creatinine 3.0. Alkaline phosphatase 133. Initial troponin negative. EKG revealed sinus tachycardia, no acute ischemic changes. Total CK 322. Albumin 1.7. Lactic acid 12.4 Urinalysis revealed evidence of probable UTI. Heart rate responded to IV hydration. Blood pressure improved but continued to trend down. Patient started on pressor. Patient pancultured and started on empiric antibiotics. Patient was admitted to ICU for further management. CONSULTANTS: stagecraft professor Dr. Doty pulmonary Dr. Lupe NORTON specialist Dr. Gomez surgery Dr. Quiñones [facility] COURSE: Patient admitted to ICU. Patient was on IV hydration. Hemodynamic status was closely monitored with goal to keep the mean arterial blood pressure above 65. Patient required 2 different pressors. Patient noted to be in respiratory distress. Patient subsequently was orally intubated later the same day. Chest x-ray confirmed placement of endotracheal tube Repeated lactic acid 5.8. Patient started on empiric antibiotics. Ventilator support and pulmonary toilet provided. Patient was followed-up with ABG and chest x-ray. Ventilator settings titrated as needed. Troponin trended up to 0.433. Later troponin-1.426. Per cardiology, elevated troponin was probably due to IA type II . Sinus tachycardia was due to septic shock. Echocardiogram revealed ejection fraction of 55% with no evidence of wall motion abnormality. Moderate left ventricular hypertrophy. Right ventricular systolic pressure 12. Patient eventually was able to be weaned from pressors and ventilator . Supplemental oxygen provided as needed to keep pulse oximetry above 92%. Prior to discharge pulse oximetry stable on oxygen 2 L via nasal cannula. Leukocytosis initially trended up 36.1. Patient had fevers. Infectious disease specialist closely followed. Blood culture revealed Proteus mirabilis Urine culture revealed Proteus mirabilis. Sputum culture was negative. Wound culture revealed Proteus mirabilis. Antibiotic provided as per ID recommendations. Leukocytosis resolved, no further fevers. Patient completed treatment with antibiotics. Infectious disease doctor recommended to observe patient off antibiotics. Surgeon follow for multiply decubitus ulcer present on admission, including left foot, left trochanter and right tibia. Wound care provided as per general surgeon recommendation. Continue wound care at the facility. Renal parameters and electrolytes were closely monitored. Electrolytes corrected as needed. Nephrotoxins were avoided. Acute renal failure resolved , was likely due to septic shock and hypovolemia. GI prophylaxis provided. Patient started on G-tube feeding and was advanced as tolerated. Tube feeding and protein supplements provided as per registered dietitian recommendations to improve nutritional status. Strict aspiration precautions were maintained. Patient was able to tolerate G-tube feeding. Pain management was addressed. Supportive care provided. Patient clinically stabilized : no fevers, no leukocytosis , more awake and interactive, hemodynamically stable. Patient was stable for discharge to retirement facility for continuation of care. FINAL DIAGNOSES: Septic shock -resolved Sepsis with Proteus bacteremia Proteus UTI/pyelonephritis Healthcare associated pneumonia Multiply decubitus ulcers, present on admission ( left trochanter, right tibia , left foot) Acute and chronic respiratory failure with hypoxia Sinus tachycardia (due to septic shock)-resolved Elevated troponin - probably due to IA type II Cachexia with severe protein calorie malnutrition History of atrial fibrillation Acute renal failure- resolved COPD Dysphagia, feeding by G-tube Schizophrenia Dementia DISCHARGE MEDICATIONS: See Medication Reconciliation list. DISCHARGE INSTRUCTIONS: Patient was discharged to the retirement facility. Follow up with medical doctor at the facility. I have been assigned to dictate discharge summary for this account. I was not involved in the patient's management. Chelsey Kumar NP Mar 12, 2019 11:30
== END 2019-03-10 19:54 | DRG 870 ==
LOC: EDBD 00:36 → EDBEDREQ 01:55 → EMR 02:08 → ICU 02:16 → EDBEDREQ 02:20 → 2W 03-06 15:02 → 2E 03-08 19:40
PROC: 0BH17EZ Insertion of Endotracheal Airway into Trachea, Via Natural or Artificial Opening (ICD-10-PCS; principal; 2019-02-28)
PROC: 05HN33Z Insertion of Infusion Device into Left Internal Jugular Vein, Percutaneous Approach (ICD-10-PCS; principal; 2019-02-28)
PROC: 5A1955Z Respiratory Ventilation, Greater than 96 Consecutive Hours (ICD-10-PCS; principal; 2019-02-28)
DX: A41.89 Other specified sepsis (principal); R65.21 Severe sepsis with septic shock; J18.9 Pneumonia, unspecified organism; J96.21 Acute and chronic respiratory failure with hypoxia; I21.A1 Myocardial infarction type 2; E43 Unspecified severe protein-calorie malnutrition; J44.0 Chronic obstructive pulmonary disease with (acute) lower respiratory infection; Z99.11 Dependence on respirator [ventilator] status; N17.9 Acute kidney failure, unspecified; G93.40 Encephalopathy, unspecified; R64 Cachexia; N39.0 Urinary tract infection, site not specified; Z74.01 Bed confinement status; L89.159 Pressure ulcer of sacral region, unspecified stage; L89.229 Pressure ulcer of left hip, unspecified stage; G30.9 Alzheimer's disease, unspecified; F02.80 Dementia in other diseases classified elsewhere, unspecified severity, without behavioral disturbance, psychotic disturbance, mood disturbance, and anxiety; Z86.718 Personal history of other venous thrombosis and embolism; I48.91 Unspecified atrial fibrillation; Z93.1 Gastrostomy status; D64.9 Anemia, unspecified; K31.84 Gastroparesis; N40.0 Benign prostatic hyperplasia without lower urinary tract symptoms; Z68.21 Body mass index [BMI] 21.0-21.9, adult; F20.9 Schizophrenia, unspecified; Y95 Nosocomial condition; E86.1 Hypovolemia
CPT/HCPCS: 36415; 36600; 71045; 74018; 80048; 80053; 80202; 81003; 82164; 82550; 82553; 82803; 83605; 83735; 84100; 84484; 85007; 85025; 85610; 85730; 87040; 87070; 87081; 87086; 87181; 87205; 93005; 93306; 93930; 93970; 94002; 94003; 94640; 94664; 94760; 96361; 96365; 96367; 96368; 99291; J7620

== ENCOUNTER 2019-03-18 12:11 | Emergency (ER) | payer MEDICARE, OTHER ==
[~2019-03-18] VITALS: Ht 162.6 cm; Wt 54.4 kg
[~2019-03-18 12:11] MED LIST changes: +DOCUSATE SODIU100 M2 GT; -DOCUSATE SODIU100 M2 ORAL
[2019-03-18 12:15] VITALS: BP 127/74
--- NOTE | 2019-03-18 13:35 | Emergency Room Report ---
History of Present Illness General Chief Complaint: Malfunctioning Gastric Tube Source: Medical Record, EMS Present Illness HPI Patient sent in for malfunctioning gastrostomy tube. It is been left in place but is not infusing. The patient is chronically disabled and unable to give medical history. There is no evidence of fever or vomiting. Dementia. Above-knee amputations. Allergies: Coded Allergies: No Known Allergies (Unverified , 02/25/19) Patient History Limited by: medical condition Past Medical History: see triage record Social History Narrative half-way facility Reviewed Nursing Documentation: PMH: Agreed; PSxH: Agreed Nursing Documentation-PMH Past Medical History: No History, Except For Hx Cardiac Problems: Yes Hx Hypertension: Yes Hx Asthma: No - hx resp failure and asp pneumonia Hx COPD: Yes Hx Cancer: No Hx Gastrointestinal Problems: Yes - g-tube,gerd Hx Neurological Problems: Yes Hx Dementia: Yes Hx Alzheimer's Disease: Yes Hx Memory Loss: Yes Hx Speech Problem: Yes Hx Dysphasia: Yes Hx Weakness: Yes Review of Systems All Other Systems: limited Physical Exam Vital Signs Date Time Temp Pulse Resp B/P (MAP) Pulse Ox O2 Delivery O2 Flow Rate FiO2 03/18/19 12:15 99.3 108 18 127/74 96 Nasal Cannula 2.0 Sp02 EP Interpretation: reviewed, normal General Appearance: no apparent distress, alert, Chronically Ill Head: normocephalic, atraumatic Eyes: bilateral eye normal inspection, bilateral eye PERRL ENT: moist mucus membranes Neck: other - Some rigidity Respiratory: lungs clear, no respiratory distress, speaking full sentences Cardiovascular #1: regular rate, rhythm Cardiovascular #2: 2+ radial (R) Gastrointestinal: normal bowel sounds, non tender, soft, non-distended, other - Gastrostomy tube with blockage Musculoskeletal: other - Above-knee amputations bilaterally Neurologic: alert, motor strength/tone normal - Upper extremities, sensory intact Psychiatric: depressed affect Skin: other - No inflammation gastrostomy tube site Procedures Additional Procedure Procedure Narrative G tube placement: Healed gastrostomy tube was removed. This came out with some difficulty after deflating the balloon. Patient had some mild pain with that. The new gastrostomy tube was inserted with ease. The balloon was inflated. A new gastrostomy tube infused well Medical Decision Making Diagnostic Impression: Primary Impression: Malfunction of gastrostomy tube Additional Impression: Alzheimer disease Qualified Codes: G30.9 - Alzheimer's disease, unspecified; F02.80 - Dementia in other diseases classified elsewhere without behavioral disturbance ER Course Patient here for gastrostomy tube replacement. Slightly tachycardic but not febrile. Abdomen soft. Gastrostomy tube removed and new gastrostomy tube placed. Abdominal film with appropriate placement. Patient stable for outpatient observation and treatment. Other X-Ray Diagnostic Results Other X-Ray Diagnostic Results : X-Ray ordered: abd # of Views/Limited Vs Complete: 1 View Indication: Other EP Interpretation: Yes Interpretation: nonspecific bowel gas, no sbo, other - Gastrografin and stomach without leak Impression: Other Electronically Signed by: Electronically signed by Christopher Tran MD Last Vital Signs Date Time Temp Pulse Resp B/P (MAP) Pulse Ox O2 Delivery O2 Flow Rate FiO2 03/18/19 14:57 99.0 106 20 140/75 100 Nasal Cannula 2.0 Status: improved Disposition: XFER SNF Condition: Improved Christopher Tran MD Mar 18, 2019 13:34
[2019-03-18 14:19] VITALS: BP 140/75
--- NOTE | 2019-03-18 14:52 | Diagnostic Imaging Report ---
Indication: Post gastrostomy replacement Technique: Supine view of the abdomen after injection of water-soluble contrast into gastrostomy Comparison: For 06/15/2019 Findings: Contrast opacifies the stomach. No contrast extravasation is demonstrated. The bowel gas pattern is unremarkable. Previously demonstrated nasogastric tube has been removed. Impression: Satisfactory position of gastrostomy tube
[2019-03-18 14:57] VITALS: BP 140/75
== END 2019-03-18 14:57 ==
LOC: EDBD 12:11 → EMR 14:55
DX: K94.23 Gastrostomy malfunction (principal); G30.9 Alzheimer's disease, unspecified; F02.80 Dementia in other diseases classified elsewhere, unspecified severity, without behavioral disturbance, psychotic disturbance, mood disturbance, and anxiety; J44.9 Chronic obstructive pulmonary disease, unspecified; K21.9 Gastro-esophageal reflux disease without esophagitis; R00.0 Tachycardia, unspecified
CPT/HCPCS: 74018; 99284

== ENCOUNTER 2019-04-23 15:34 | Inpatient (IN) | payer MEDICARE, OTHER ==
[~2019-04-23] VITALS: Ht 175.3 cm; Wt 48.5 kg
[~2019-04-23 15:34] MED LIST changes: -DOCUSATE SODIU100 M2 GT; +DOCUSATE SODIU100 M2 ORAL
[2019-04-23 16:00] VITALS: BP 95/54
--- NOTE | 2019-04-23 16:00 | NUR ---
ED Nurse Note: pt was brought in by ambulance c/o sob started today, pt was on 4L/min o2 upon arrival with 95 %os sat. pt noted to have g tube and bilateral lower leg contracture, pt noted to have pressure wound on right leg, left hip and left foot. pt noted to have 101 F temp per rectal. ermd made aware. will continue to monitor. blood drawn and was sent to lab, urine sample was sent to lab.
--- NOTE | 2019-04-23 16:25 | Diagnostic Imaging Report ---
Indication: Dyspnea Comparison: 03/04/2019 A single view chest radiograph was obtained. Findings: Moderate focus of airspace disease in the left perihilar region is present. Pneumonia suspected. Heart size is normal. Bones are osteopenic. IMPRESSION: Focal airspace disease left perihilar region. Pneumonia suspected. Correlate clinically.
[2019-04-23 16:50] LABS: HEMATOCRIT 30.7 % (42.0-52.0); HEMOGLOBIN 9.7 G/DL (14.2-18.0); MEAN CORPUSCULAR VOLUME 73 FL (80-99); PLATELET COUNT 384 K/UL (150-450); RED BLOOD COUNT 4.23 M/UL (4.70-6.10); RED CELL DISTRIBUTION WIDTH 17.3 % (11.6-14.8); WHITE BLOOD COUNT 11.8 K/UL (4.8-10.8)
[2019-04-23 16:57] LABS: ANION GAP 14 mmol/L (5-15); BLOOD UREA NITROGEN 50 mg/dL (7-18); CALCIUM 8.4 MG/DL (8.5-10.1); CARBON DIOXIDE 23 MMOL/L (21-32); CHLORIDE 100 MMOL/L (98-107); CREATININE 1.8 MG/DL (0.55-1.30); POTASSIUM 5.4 MMOL/L (3.5-5.1); SODIUM 137 MMOL/L (136-145)
--- NOTE | 2019-04-23 17:00 | Emergency Room Report ---
History of Present Illness General Chief Complaint: Dyspnea/Respdistress Source: Medical Record, EMS Present Illness HPI This [facility] He has multiple chronic medical problems to include COPD, dementia, hypertension. History of sepsis, DVT and respiratory failure. Patient is unable to give any type of history. He presents to [facility] the [facility] for difficulty breathing and increased oxygen requirement according to the nursing facility. The patient does not have the capacity to give any type of history. Allergies: Coded Allergies: No Known Allergies (Unverified , 02/25/19) Patient History Past Medical History: see triage record, HTN, [place], CAD, asthma, COPD, GERD, GI bleed, dementia, psych hx Past Surgical History: other - G-tube Social History: Denies: smoking, alcohol use, drug use Reviewed Nursing Documentation: PMH: Agreed; PSxH: Agreed Nursing Documentation-PMH Past Medical History: No History, Except For Hx Hypertension: Yes - OA, BPH, GI bleed, OA Hx Asthma: No - hx resp failure and asp pneumonia Hx COPD: Yes - PNA, Resp. Failure Hx Cancer: No Hx Gastrointestinal Problems: Yes - GERD History Of Psychiatric Problem: Yes - Schizo, Alzheimer's Hx Neurological Problems: Yes Hx Dementia: Yes Hx Alzheimer's Disease: Yes Hx Memory Loss: Yes Hx Speech Problem: Yes Hx Dysphasia: Yes Hx Weakness: Yes Review of Systems All Other Systems: limited Physical Exam Vital Signs Date Time Temp Pulse Resp B/P (MAP) Pulse Ox O2 Delivery O2 Flow Rate FiO2 04/23/19 15:31 110 48 90/55 (67) 98 Nasal Cannula 4.0 Sp02 EP Interpretation: reviewed, abnormal - on face mask General Appearance: no apparent distress, alert, GCS 15, non-toxic Head: normocephalic, atraumatic ENT: no angioedema Neck: full range of motion Respiratory: no respiratory distress, no retraction, no accessory muscle use, rhonchi Cardiovascular #1: no edema, tachycardia Gastrointestinal: normal bowel sounds, non tender, soft, non-distended, no guarding, no rebound, other - PEG Rectal: deferred Musculoskeletal: other - contracted Neurologic: alert, responsive, grossly normal Skin: warm/dry, well hydrated, other - See RN skin exam (Multiple DU) Medical Decision Making Diagnostic Impression: Primary Impression: Pneumonia Additional Impressions: Severe sepsis Lactic acid acidosis Pyelonephritis Anemia ER Course Has severe sepsis. He is found to have pneumonia and pyelonephritis. Patient initially was hypotensive but patient's blood pressure did respond to aggressive IV fluid resuscitation. Patient was given broad-spectrum antibiotics. Patient was maintaining his oxygen saturations in the high 90s with a facemask. He did not have any respiratory distress while in the emergency department, therefore, I did not feel that this patient need to be intubated. Patient is admitted to the ICU stepdown for severe sepsis. This patient is critically ill. This patient required complex medical decision- making, aggressive intervention, extensive laboratory workup and monitoring. Critical care time: 40 minutes. Laboratory Tests Test 04/23/19 16:15 04/23/19 16:45 04/23/19 17:50 White Blood Count 11.8 K/UL (4.8-10.8) H Red Blood Count 4.23 M/UL (4.70-6.10) L Hemoglobin 9.7 G/DL (14.2-18.0) L Hematocrit 30.7 % (42.0-52.0) L Mean Corpuscular Volume 73 FL (80-99) L Mean Corpuscular Hemoglobin 23.0 PG (27.0-31.0) L Mean Corpuscular Hemoglobin Concent 31.6 G/DL (32.0-36.0) L Red Cell Distribution Width 17.3 % (11.6-14.8) H Platelet Count 384 K/UL (150-450) Mean Platelet Volume 5.4 FL (6.5-10.1) L Neutrophils (%) (Auto) % (45.0-75.0) Lymphocytes (%) (Auto) % (20.0-45.0) Monocytes (%) (Auto) % (1.0-10.0) Eosinophils (%) (Auto) % (0.0-3.0) Basophils (%) (Auto) % (0.0-2.0) Neutrophils % (Manual) Pending Lymphocytes % (Manual) Pending Platelet Estimate Pending Platelet Morphology Pending Sodium Level 137 MMOL/L (136-145) Potassium Level 5.4 MMOL/L (3.5-5.1) H Chloride Level 100 MMOL/L (98-107) Carbon Dioxide Level 23 MMOL/L (21-32) Anion Gap 14 mmol/L (5-15) Blood Urea Nitrogen 50 mg/dL (7-18) H Creatinine 1.8 MG/DL (0.55-1.30) H Estimate Glomerular Filtration Rate mL/min (>60) Glucose Level 117 MG/DL (74-106) H Lactic Acid Level 8.30 mmol/L (0.4-2.0) H Pending Calcium Level 8.4 MG/DL (8.5-10.1) L Total Bilirubin 0.4 MG/DL (0.2-1.0) Aspartate Amino Transferase (AST) 37 U/L (15-37) Alanine Aminotransferase (ALT) 44 U/L (12-78) Alkaline Phosphatase 77 U/L (46-116) Total Creatine Kinase 143 U/L (26-308) Creatine Kinase MB 1.3 NG/ML (0.0-3.6) Creatine Kinase MB Relative Index 0.9 Troponin I 0.045 ng/mL (0.000-0.056) Total Protein 6.6 G/DL (6.4-8.2) Albumin 1.6 G/DL (3.4-5.0) L Globulin 5.0 g/dL Albumin/Globulin Ratio 0.3 (1.0-2.7) L Urine Color Brown Urine Appearance Slightly cloudy Urine pH 5 (4.5-8.0) Urine Specific [place] 1.015 (1.005-1.035) Urine Protein 2+ (NEGATIVE) H Urine Glucose (UA) Negative (NEGATIVE) Urine Ketones 1+ (NEGATIVE) H Urine Blood 4+ (NEGATIVE) H Urine Nitrite Negative (NEGATIVE) Urine Bilirubin Negative (NEGATIVE) Urine Urobilinogen 1 MG/DL (0.0-1.0) H Urine Leukocyte Esterase 3+ (NEGATIVE) H Urine RBC 10-15 /HPF (0 - 0) H Urine WBC Tntc /HPF (0 - 0) H Urine Squamous Epithelial Cells None /LPF (NONE/OCC) Urine Bacteria Many /HPF (NONE) H Microbiology Date/Time Source Procedure Growth Status 04/23/19 16:50 Nasal Nares - Final Complete 04/23/19 16:50 Nasal Nares - Final Complete EKG Diagnostic Results Rate: tachycardiac Rhythm: other - S.tachycardia ST Segments: no acute changes Rhythm Strip Diag. Results EP Interpretation: yes Rate: 110's Rhythm: no PVC's, no ectopy, other - S.tachcyardia Chest X-Ray Diagnostic Results Chest X-Ray Diagnostic Results : Chest X-Ray Ordered: Yes # of Views/Limited/Complete: 1 View EP Interpretation: Yes Interpretation: other - LML opacicfication Impression: Other - See above Last Vital Signs Date Time Temp Pulse Resp B/P (MAP) Pulse Ox O2 Delivery O2 Flow Rate FiO2 04/23/19 15:31 110 48 90/55 (67) 98 Nasal Cannula 4.0 Disposition: ADMITTED INPATIENT Condition: Critical Kalpana Rosario DO April 23, 2019 17:00
[2019-04-23 17:11] LABS: ALANINE AMINOTRANSFERASE 44 U/L (12-78); ALBUMIN 1.6 G/DL (3.4-5.0); ALBUMIN/GLOBULIN RATIO 0.3 (1.0-2.7); ALKALINE PHOSPHATASE 77 U/L (46-116); ASPARTATE AMINO TRANSFERASE 37 U/L (15-37); BILIRUBIN,TOTAL 0.4 MG/DL (0.2-1.0); CKMB 1.3 NG/ML (0.0-3.6); CREATINE KINASE 143 U/L (26-308)
--- NOTE | 2019-04-23 17:20 | NUR ---
ED Nurse Note: pt was medicated, pt is febrile, tylenol given per suppository.
[2019-04-23 17:28] LABS: APPEARANCE,URINE SLIGHTLY CLOUDY; BILIRUBIN, URINE NEGATIVE (NEGATIVE); COLOR,URINE BROWN; GLUCOSE, URINE (UA) NEGATIVE (NEGATIVE); KETONES,URINE 1+ (NEGATIVE); LEUKOCYTE ESTERASE ,URINE 3+ (NEGATIVE); NITRITE,URINE NEGATIVE (NEGATIVE); PH,URINE 5 (4.5-8.0); PROTEIN,URINE 2+ (NEGATIVE); UROBILINOGEN,URINE 1 MG/DL (0.0-1.0)
[2019-04-23] MEDS ORDERED: Acetaminophen 650 MG SUPP RECTAL ONE (17:30)
[2019-04-23] MEDS ORDERED: Meropenem 1 GM in NS 55 ML IVPB ONE (17:30)
[2019-04-23 18:00] VITALS: BP 97/65
--- NOTE | 2019-04-23 18:40 | NUR ---
Note brandon in EDM - 04/23/19 at 1843 by DAVID ED Nurse Note: pt was brought in by ambulance c/o sob started today, pt was on 4L/min o2 upon arrivan with 95 %os sat. pt noted to have g tube and bilateral lower leg contracture, pt noted to have pressure wound on right leg, left hip and left foot. pt noted to have 101 F temp per rectal. ermd made aware. will continue to monitor.
[2019-04-23 19:00] VITALS: BP 120/86
--- NOTE | 2019-04-23 19:15 | NUR ---
HAND-OFF: Report given to Candis GARCIA. pt is in bed, still on Oxygen @ 4L/min, pt is not in acute distress.
--- NOTE | 2019-04-23 19:19 | NUR ---
ED Nurse Note: Received report from Lela RN. Pt in bed asleep, resting. No distress noted. Pics taken, swabs complete, awaiting to give report to unit after change of shift. Will continue to monitor.
[2019-04-23 20:00] VITALS: BP 120/86
[2019-04-23 21:00] VITALS: BP 101/59
--- NOTE | 2019-04-23 21:05 | NUR ---
TRANSFER TO FLOOR: Patient transferred to [facility] as ordered, per MD Mario . Report given to Belkys GARCIA. No Belongings and medications. Pt stable.
--- NOTE | 2019-04-23 21:10 | NUR ---
NURSE NOTES: Patient arrived from ER via stretcher accompanied by JOSE Chirinos and pharmaceutical laboratory techniciantoni Wu. Bed side report received from JOSE Chirinos. Inventory signed ( NONE). Patient is non verbal, withdrawals to pain, eyes open spontaneously. On oxygen 3 L/min via NC with sp02 96%. No S/Sx of pain is noted vis FLACC scale. Routine admission care provided. IV site noted to Left AC 20g, intact. Condom cath placed on patient. Wound care picture taken. Placed patient's bed in lowest position. Call light is within easy reach while in bed. will continue to monitor.
[2019-04-23 21:30] VITALS: BP 123/68
--- NOTE | 2019-04-23 21:30 | NUR ---
NURSE NOTES: Received Call from Dr Andrade, admission order received. order noted and carried out.
[2019-04-24] VITALS: BP 127/68
[2019-04-24] MEDS: Vancomycin 500mg/D5W 110ml IVPB SCH ×4 (00:06→23:01)
--- NOTE | 2019-04-24 02:30 | Consultation ---
DATE OF CONSULTATION: 04/23/2019 PULMONARY CONSULTATION REASON FOR CONSULTATION: Respiratory failure. HISTORY OF PRESENT ILLNESS: The patient is an 83-year-old male with multiple medical problems, prior history of respiratory failure, prior history of pneumonia with history of COPD. The patient presents from intermediate facility with worsening shortness of breath, worsening oxygen desaturation. The patient was seen and evaluated in the emergency room and admitted for further care and management. On further evaluation, chest x-ray obtained showing focal airspace disease in the left lung. The patient was seen and evaluated and admitted for IV antibiotics. Care discussed and reviewed. The patient is unable to give much in the way of history that is fairly acute in nature. The patient has multitude medical problems as outlined. The patient has had [facility]. PAST MEDICAL HISTORY: Notable for septic shock, urinary tract infection, pneumonia, , acute on chronic respiratory failure, elevated troponin, cachexia, COPD, dysphagia, G-tube, schizophrenia, and dementia. MEDICATIONS: Reviewed. ALLERGIES: Reviewed. SOCIAL HISTORY: The patient is a [facility] patient. bedbound, nonverbal. REVIEW OF SYSTEMS: Unobtainable due to the patient's present state. PHYSICAL EXAMINATION: GENERAL: An ill-appearing male overall without significant distress. On initial evaluation, the patient appears to be somewhat tachypneic, pleasantly. VITAL SIGNS: T-max 101, heart rate 119, respiratory rate 30, blood pressure 95/45, sats 95% on 4 liters . HEENT: Overall negative. NECK: Supple. No adenopathy. LUNGS: The patient without any accessory muscle use. LUNGS: Scattered rhonchi. Moderate air entry. CARDIAC: Somewhat tachycardic without murmurs, rubs, gallops. ABDOMEN: Soft, nontender. G-tube in place. EXTREMITIES: Reduced range of motion. NEUROLOGICALLY: Poorly responsive. LABORATORY DATA: Reviewed. Potassium 5.4, BUN 50, creatinine 1.8. Lactic acid 8.3. Albumin is 1.6. White cell count is 11.8, hemoglobin 9.7, platelets of 384. Chest x-ray, patchy infiltrates. IMPRESSION: 1. Acute on chronic respiratory failure. 2. Acute on chronic renal failure. 3. Profound lactic acidemia, possibly due to underlying sepsis. 4. Hyperkalemia. 5. Leukocytosis. 6. Anemia. 7. COPD per history. RECOMMENDATIONS: Supportive care. Arterial blood gases. Meropenem to continue. Vancomycin to continue. Arterial blood gases and x-rays. DVT prophylaxis. Monitor need for higher level care. Monitor need for intensive care unit management and intubation. The patient's code status to be addressed. Prognosis is overall guarded at present. We will follow clinically and recommend further for further changes and interventions. Tim Andrade M.D. DR: Katja JOB#: [id number] CC:
[2019-04-24 04:00] VITALS: BP 127/72
[2019-04-24 05:21] LABS: HEMATOCRIT 28.7 % (42.0-52.0); MEAN CORPUSCULAR VOLUME 75 FL (80-99); PLATELET COUNT 325 K/UL (150-450); RED BLOOD COUNT 3.85 M/UL (4.70-6.10); RED CELL DISTRIBUTION WIDTH 18.1 % (11.6-14.8); WHITE BLOOD COUNT 13.3 K/UL (4.8-10.8)
[2019-04-24 05:35] LABS: ANION GAP 10 mmol/L (5-15); BLOOD UREA NITROGEN 43 mg/dL (7-18); CALCIUM 8.4 MG/DL (8.5-10.1); CARBON DIOXIDE 24 MMOL/L (21-32); CHLORIDE 105 MMOL/L (98-107); CREATININE 1.1 MG/DL (0.55-1.30); POTASSIUM 3.9 MMOL/L (3.5-5.1); SODIUM 139 MMOL/L (136-145)
--- NOTE | 2019-04-24 07:05 | NUR ---
RADIOLOGY DEPT., CHEST X-RAY PERFORMED IN ER PRIOR TO ADMIT.ELLEN
--- NOTE | 2019-04-24 07:06 | NUR ---
HAND-OFF: Report given to Jacey Arechiga RN.
--- NOTE | 2019-04-24 07:07 | NUR ---
NURSE NOTES: RECEIVED PATIENT FROM Luisa NIETO RN. PATIENT IS LYING IN BED, ASLEEP, NONVERBAL. HOOKED TO CERTIFIED PROFESSIONAL ERGONOMIST. ON 3L NC. NO SIGNS OF DISTRESS. GT IN PLACE, GTF JEVITY 1.2 AT 55ML/HR. NOTED CONDOM CATH. SKIN ALTERATION NOTED. IV ON L AC G20. BED AT LOWEST POSITION. SIDE RAILS UP. CALL LIGHT WITHIN REACH. WILL CONTINUE TO MONITOR.
[2019-04-24 08:00] VITALS: BP 123/74
[2019-04-24] MEDS: Ascorbic Acid 500mg tab GT SCH (08:43)
[2019-04-24] MEDS: Metoprolol 25mg tab GT SCH ×2 (08:44→20:22)
[2019-04-24] MEDS: Heparin 5000 units/ml inj SUBQ SCH ×2 (08:45→20:23)
--- NOTE | 2019-04-24 08:59 | NUR ---
NURSE NOTES: DR VAZQUEZ MADE AWARE OF ABG RESULT. AWAITING CALL BACK . WILL CONTINUE TO MONITOR.
--- NOTE | 2019-04-24 10:16 | Pulmonology Progress Note ---
Assessment/Plan Assessment/Plan Pulmonary Progress Note HPI: The patient is an 83-year-old male with multiple medical problems, prior history of respiratory failure, prior history of pneumonia with history of COPD. The patient presents from longterm facility with worsening shortness of breath, worsening oxygen desaturation. The patient was seen and evaluated in the emergency room and admitted for further care and management. On further evaluation, chest x-ray obtained showing focal airspace disease in the left lung. The patient was seen and evaluated and admitted for IV antibiotics. Care discussed and reviewed. The patient is unable to give much in the way of history that is fairly acute in nature. The patient has multitude medical problems as outlined. The patient has had recent admission to the [facility] approximately 1 month ago. PAST MEDICAL HISTORY: Sepsis, urinary tract infection, pneumonia, acute on chronic respiratory failure, elevated troponin, cachexia, COPD, dysphagia, G-tube, schizophrenia, and dementia. MEDICATIONS: Reviewed. ALLERGIES: Reviewed. SOCIAL HISTORY: The patient is a [facility] patient. bedbound, nonverbal. REVIEW OF SYSTEMS: Unobtainable due to the patient's present state. PHYSICAL EXAMINATION: GENERAL: An ill-appearing male overall without significant distress. VITAL SIGNS NOTED HEENT: Overall negative. NECK: Supple. No adenopathy. LUNGS: The patient without any accessory muscle use. LUNGS: Scattered rhonchi. Moderate air entry. CARDIAC: Somewhat tachycardic without murmurs, rubs, gallops. ABDOMEN: Soft, nontender. G-tube in place. EXTREMITIES: Reduced range of motion. NEUROLOGICALLY: Poorly responsive. LABORATORY DATA: Reviewed. Potassium 5.4, BUN 50, creatinine 1.8. Lactic acid 8.3. Albumin is 1.6. White cell count is 11.8, hemoglobin 9.7, platelets of 384. Chest x-ray, patchy infiltrates. IMPRESSION: 1. Acute on chronic respiratory failure, Pneumonia 2. Acute on chronic renal failure. 3. Sepsis. 4. Hyperkalemia. 5. Leukocytosis. 6. Anemia. 7. COPD per history. RECOMMENDATIONS: Supportive care. Monitor O2 sats. Meropenem, Vancomycin to continue. Labs/imaging. DVT prophylaxis. Monitor need for higher level care. Monitor need for intensive care unit management and intubation. The patient's code status to be addressed. Prognosis is overall guarded at present. We will follow clinically and recommend further for further changes and interventions. Subjective ROS Limited/Unobtainable: No Allergies: Coded Allergies: No Known Allergies (Unverified , 02/25/19) Objective Last 24 Hour Vital Signs Date Time Temp Pulse Resp B/P (MAP) Pulse Ox O2 Delivery O2 Flow Rate FiO2 04/24/19 08:44 118 123/74 04/24/19 08:00 97.9 121 34 123/74 (90) 97 04/24/19 07:56 98 Nasal Cannula 2.0 28 04/24/19 04:00 Nasal Cannula 3.0 04/24/19 04:00 98.1 117 36 127/72 (90) 98 04/24/19 04:00 3.0 04/24/19 03:18 118 04/24/19 00:00 Nasal Cannula 3.0 04/24/19 00:00 3.0 04/24/19 00:00 98.1 120 30 127/68 (87) 97 04/23/19 23:33 111 04/23/19 22:37 Nasal Cannula 3.0 04/23/19 21:30 97.9 114 32 123/68 (86) 93 04/23/19 21:06 101.0 118 40 101/59 96 Simple Mask 4.0 04/23/19 21:00 101.0 118 40 101/59 96 Nasal Cannula 4.0 04/23/19 20:00 101.0 116 36 120/86 96 Nasal Cannula 4.0 04/23/19 19:00 101.0 111 35 120/86 96 Nasal Cannula 4.0 04/23/19 18:00 101.0 04/23/19 18:00 101.0 115 40 97/65 96 Room Air 04/23/19 16:00 119 30 Nasal Cannula 4.0 04/23/19 16:00 101.0 119 30 95/54 95 Room Air 04/23/19 15:31 110 48 90/55 (67) 98 Nasal Cannula 4.0 Intake and Output 04/23/19 04/24/19 19:00 07:00 Intake Total 3105 ml 805 ml Balance 3105 ml 805 ml Intake Free Water 200 ml IV Total 3105 ml 110 ml Tube Feeding 495 ml # Voids 1 # Bowel Movements 1 Microbiology Date/Time Source Procedure Growth Status 04/23/19 16:50 Nasal Nares - Final Complete 04/23/19 16:50 Nasal Nares - Final Complete 04/23/19 16:45 Urine,Clean Catch Urine Culture - Preliminary Resulted 04/23/19 20:25 Rectum Received Laboratory Tests 04/23/19 16:15: White Blood Count 11.8H, Red Blood Count 4.23L, Hemoglobin 9.7L, Hematocrit 30.7L, Mean Corpuscular Volume 73L, Mean Corpuscular Hemoglobin 23.0L, Mean Corpuscular Hemoglobin Concent 31.6L, Red Cell Distribution Width 17.3H, Platelet Count 384, Mean Platelet Volume 5.4L, Neutrophils (%) (Auto) , Lymphocytes (%) (Auto) , Monocytes (%) (Auto) , Eosinophils (%) (Auto) , Basophils (%) (Auto) , Differential Total Cells Counted 100, Neutrophils % ( Manual) 40L, Lymphocytes % (Manual) 24, Monocytes % (Manual) 9, Eosinophils % ( Manual) 0, Basophils % (Manual) 0, Band Neutrophils 27H, Platelet Estimate Adequate, Platelet Morphology Normal, Hypochromasia 1+, Anisocytosis 1+, Sodium Level 137, Potassium Level 5.4H, Chloride Level 100, Carbon Dioxide Level 23, Anion Gap 14, Blood Urea Nitrogen 50H, Creatinine 1.8H, Estimat Glomerular Filtration Rate , Glucose Level 117H, Lactic Acid Level 8.30H, Calcium Level 8.4L, Total Bilirubin 0.4, Aspartate Amino Transf (AST/SGOT) 37, Alanine Aminotransferase (ALT/SGPT) 44, Alkaline Phosphatase 77, Total Creatine Kinase 143, Creatine Kinase MB 1.3, Creatine Kinase MB Relative Index 0.9, Troponin I 0.045, Total Protein 6.6, Albumin 1.6L, Globulin 5.0, Albumin/Globulin Ratio 0.3L 04/23/19 16:45: Urine Color Brown, Urine Appearance Slightly cloudy, Urine pH 5, Urine Specific [place] 1.015, Urine Protein 2+H, Urine Glucose (UA) Negative, Urine Ketones 1+H , Urine Blood 4+H, Urine Nitrite Negative, Urine Bilirubin Negative, Urine Urobilinogen 1H, Urine Leukocyte Esterase 3+H, Urine RBC 10-15H, Urine WBC TntcH , Urine Squamous Epithelial Cells None, Urine Bacteria ManyH 04/23/19 17:50: Lactic Acid Level 7.00H 04/24/19 04:10: White Blood Count 13.3H, Red Blood Count 3.85L, Hemoglobin 9.0L, Hematocrit 28.7L, Mean Corpuscular Volume 75L, Mean Corpuscular Hemoglobin 23.5L, Mean Corpuscular Hemoglobin Concent 31.5L, Red Cell Distribution Width 18.1H, Platelet Count 325, Mean Platelet Volume 6.5, Neutrophils (%) (Auto) , Lymphocytes (%) (Auto) , Monocytes (%) (Auto) , Eosinophils (%) (Auto) , Basophils (%) (Auto) , Neutrophils % (Manual) [Pending], Lymphocytes % (Manual) [Pending], Platelet Estimate [Pending], Platelet Morphology [Pending], Sodium Level 139, Potassium Level 3.9, Chloride Level 105, Carbon Dioxide Level 24, Anion Gap 10, Blood Urea Nitrogen 43H, Creatinine 1.1, Estimat Glomerular Filtration Rate , Glucose Level 158H, Calcium Level 8.4L 04/24/19 07:55: Arterial Blood pH 7.542H, Arterial Blood Partial Pressure CO2 24.8*L, Arterial Blood Partial Pressure O2 76.0, Arterial Blood HCO3 20.8L, Arterial Blood Oxygen Saturation 95.5, Arterial Blood Base Excess -0.8, Rhett Test Positive Current Medications Medications (Trade) Dose Ordered Sig/Mckenzie Route PRN Reason Start Time Stop Time Status Last Admin Dose Admin Acetaminophen (Tylenol) 500 mg Q6H PRN ORAL Mild Pain/Temp > 100.5 04/23/19 22:00 05/23/19 21:59 Ascorbic Acid (Vitamin C) 500 mg DAILY GT 04/24/19 09:00 05/24/19 08:59 04/24/19 08:43 Heparin Sodium (Porcine) (Heparin 5000 units/ml) 5,000 units EVERY 12 HOURS SUBQ 04/24/19 09:00 05/24/19 08:59 04/24/19 08:45 Meropenem 1 gm/ Sodium Chloride 55 ml @ 110 mls/hr Q24H IVPB 04/24/19 18:00 04/29/19 17:59 Metoprolol Tartrate (Lopressor) 12.5 mg Q12HR GT 04/24/19 09:00 05/24/19 08:59 04/24/19 08:44 Pantoprazole (Protonix) 40 mg DAILY ORAL 04/24/19 09:00 05/24/19 08:59 04/24/19 08:44 Sodium Hypochlorite (Dakin's Half Strength) 1 applic BID TOPIC 04/24/19 11:00 05/24/19 10:59 Vancomycin HCl (Vanco rx to dose) 1 ea DAILY PRN MISC Per rx protocol 04/23/19 22:00 05/23/19 21:59 Vancomycin HCl 500 mg/Dextrose 110 ml @ 110 mls/hr Q24H IVPB 04/23/19 23:00 04/28/19 22:59 04/24/19 00:06 Christopher Rogers MD April 24, 2019 10:16
--- NOTE | 2019-04-24 10:18 | NUR ---
RD ASSESSMENT & RECOMMENDATIONS SEE CARE ACTIVITY FOR COMPLETE ASSESSMENT DAILY ESTIMATED NEEDS: Needs based on Wounds, underweight 50.5kg 30-35 kcals/kg 8075-0513 total kcals 1.5-2.0 g protein/kg 76-101 g total protein 25-30 mL/kg 9090-8254 total fluid mLs NUTRITION DIAGNOSIS: * Increased kcal/pro needs R/T wound healing as evidenced by pt admitted w/ multiple advanced wounds including L hip, L foot wound, pending eval. * Swallowing difficulty R/T dysphagia as evidenced by pt GT dep for all nutritional needs. CURRENT TF:Jevity 1.2 @ 55ml/hr x 24 hrs ENTERAL NUTRITION RECOMMENDATIONS: Jevity 1.2 @ 55ml/hr x 24 hrs + Prosource 1pkt daily to provide 1320ml, 1584kcal, 73g + 11g prot, 1065ml free water * Add Prosource 1pkt daily to better meet protein needs * HOB over 30 degrees/ water flush per MD ----- ADDITIONAL RECOMMENDATIONS: * Calibrated bedscale wt for accurate CBW * WOUND HEALING: add Simon 1pkt BID, Vit C 500mg BID + ZnSO4 220mg daily x10 days * Monitor lytes, replete as needed * Monitor tolerance to TF . .
[2019-04-24] MEDS ORDERED: Dakin's 0.25% (Half Strength) 16oz TOPIC SCH (11:00)
[2019-04-24 12:00] VITALS: BP 114/69
--- NOTE | 2019-04-24 12:36 | NUR ---
CASE MANGER REVIEW 83 Y/O MALE BIBA FROM [facility] TO [facility] [place] [place] CC:DYSPNEA/RESPIRATORY DISTRESS SI:SEPSIS . PNA . LACTIC ACIDOSIS VS: BP 90/55, P 119, T 101.0, RR 48, SpO2 98 on 4.0L NC WBC 13.3, RBC 3.85, H&H 9.0/28.7, BUN 43 CXR: Focal airspace disease left perihilar region. Pneumonia suspected. IS:NS x1.5L IVLG MEROPENEM 55ml IVPB TYLENOL 650mg ADMITTED TO SDU DCP: RETURN TO [facility]
--- NOTE | 2019-04-24 13:00 | NUR ---
NURSE NOTES: DRESSING CHANGED DONE. ORDERED FULL MATTRESS. WILL CONTINUE TO MONITOR.
--- NOTE | 2019-04-24 13:30 | NUR ---
NURSE NOTES: SEEN AND EXAMINED BY DR MARROQUIN,.MADE AWARE OF ABG. NO NEW ORDER. WILL CONTINUE OT MONITOR.
--- NOTE | 2019-04-24 13:54 | NUR ---
RADIOLOGY DEPT., LEFT HIP ATTEMPTED.PT TOO CONSTRICTED FOR PROPER HIP IMAGING.-P.DYE
[2019-04-24 16:00] VITALS: BP 123/73
--- NOTE | 2019-04-24 16:07 | NUR ---
NURSE NOTES:WOUND CARE NOTES:Pt presented on admission with multiple pressure injuries.Pt contracted in foetal position. Non-blanchable erythema noted to cleft of R ear. L ear is pink. Full thickness pressure injury with undermining L trochanter with mixed necrosis and loose fibrinous slough. Wound is malodorous. Periwound pink and indurated. (L)4cm x (W)3.5cm, undermining clockwise 12-12 by 2.2cm @3o'clock. An area of non-blanchable erythema without fluctuance or induration noted to medial posterior upper thigh. Two areas that area that area maroon and indurated noted to R hip /R trochanteric.(proximal) (L)2.5cm x (W)3.9cm. R trochanteric(L)3.5cm x (W)4.5cm.Resolving pressure injury also noted to R trochanter inferiorly but in close proximity to DTPI.[place] epithelial that is dry with surrounding hyperpigmentation noted. Hyperpigmentation from previous pressure injury with surrounding brown pigmentation noted to Sacrum. Full thickness pressure injury noted to idalia R tibia. Base of wound 75% viable with 25% slough.(+) Epibole along edges. No odor noted .Small amt brownish exudate noted.Non-blanchable erythema without fluctuance/induration or elevation in skin temp periwound. Non-blanchable erythema with delineated borders noted to R heel and plantar R heel . Base of wound is fluctuant. (L)5.5cm x (W)6.5cm.Periwound pale but blanchable. Non-blanchable erythema noted to lateral R foot .Base of wound fluctuant.(L)1.5cm x (W)2cm.Periwound pale but blanchable. Full thickness pressure injury noted L hallux extending into plantar aspect. 50%mixed slough necrosis noted .(+) maceration along edges.Small amt lewis coloured exudate noted .Wound is malodorous.(L)3.5cm x (W)6cm. Full thickness wound lateral L foot extending from base of 5th metatarsal to L heel. Wound is100% necrotic and is malodorous . L foot is swollen and All metatarsals noted to have dusky colour. (L)8cm x (W)18cm . Tx.Plan: Cleanse wounds R tibia and L foot with Dakin's daysi 0.25% .Apply Dakin's moist Gauze.Apply Triad periwound. Cover with ABD pads and wrap with Kerlix Q shift and prn. Apply triad paste to sacrum and medial L thigh. . Cover each site with Optifoam drsg. Change every 3 days and prn. Apply Triad paste to R hip /R trochanter .Cover with Optifoam drsg. Change every 3 days and prn Apply Cavilon to R heel and plantar R heel .Cover with Optifoam drsg. Change every 7 days and prn. Apply Cavilon to R heel daily and prn. Reposition at least every 2hours or as tolerated. PLease use ONLY pillows between knees and behind knees for off-loading. Air fluidized mattress.
--- NOTE | 2019-04-24 16:28 | Consultation ---
History of Present Illness General Chief Complaint: Dyspnea/Respdistress Present Illness HPI 83-year-old male with multiple medical problems, prior history of respiratory failure, prior history of pneumonia with history of COPD who presents from intermediate facility with worsening shortness of breath, worsening oxygen desaturation. Patient known to me from prior admission and with extensive wounds requiring care. On admission wounds noted to be worse and surgery called to evaluate and assist with care. patient seen, chart reviewed, patient examined. Allergies: Coded Allergies: No Known Allergies (Unverified , 02/25/19) Medication History Scheduled Docusate Sodium (Docusate Sodium), 100 MG ORAL DAILY, (Reported) Heparin Sod (Porcine) (Heparin Sodium*), 5,000 UNITS SUBQ EVERY 12 HOURS Lactose-Reduced Food/Fiber (Jevity 1.2 Mega Liquid), 55 ML PO EVERY HOUR, ( Reported) Metoprolol Tartrate* (Metoprolol Tartrate*), 25 MG ORAL EVERY 12 HOURS, ( Reported) Pantoprazole* (Protonix*), 40 MG ORAL DAILY Scheduled PRN Acetaminophen* (Tylenol Extra Strength*), 500 MG ORAL Q6H PRN for Mild Pain/ Temp > 100.5, (Reported) Ipratropium/Albuterol Sulfate (DuoNeb 0.5-3(2.5)mg/3ml), 3 ML HHN Q4H PRN Discontinued Medications Ascorbic Acid* (Vitamin C*), 500 MG ORAL DAILY, (Reported) Discontinued Reason: Pt stopped taking med Metoprolol Tartrate (Metoprolol Tartrate), 12.5 MG ORAL Q12HR Discontinued Reason: Medication dose changed Patient History Limited by: medical condition History Provided By: Medical Record, PMD Healthcare decision maker Resuscitation status Full Code Advanced Directive on File Yes Past Medical/Surgical History Past Medical/Surgical History: (1) Dysphagia (2) Sepsis (3) Gastroparesis (4) Encounter for PEG (percutaneous endoscopic gastrostomy) (5) Ulcer of lower extremity excluding decubitus ulcer (6) Decubitus ulcer of trochanteric region of left hip (7) Hypokalemia (8) Proteus septicemia (9) Sinus tachycardia (10) Hypokalemia (11) Malfunction of gastrostomy tube (12) Alzheimer disease (13) Lactic acid acidosis (14) Anemia (15) Pyelonephritis (16) Pneumonia (17) Severe sepsis Review of Systems ROS Narrative cannot obtain given medical condition Physical Exam General Appearance: no apparent distress Lines, tubes and drains: peripheral HEENT: mucous membranes moist Neck: normal inspection Respiratory/Chest: no respiratory distress, no accessory muscle use, decreased breath sounds Cardiovascular/Chest: normal rate, regular rhythm Abdomen: soft, no organomegaly, no mass, feeding tube, other Extremities: other Skin Exam: cyanotic Neurologic: unresponsiveness Last 24 Hour Vital Signs Date Time Temp Pulse Resp B/P (MAP) Pulse Ox O2 Delivery O2 Flow Rate FiO2 04/24/19 12:00 115 04/24/19 12:00 98.4 120 30 114/69 (84) 96 04/24/19 12:00 Nasal Cannula 3.0 04/24/19 08:44 118 123/74 04/24/19 08:00 97.9 121 34 123/74 (90) 97 04/24/19 08:00 Nasal Cannula 3.0 04/24/19 07:56 98 Nasal Cannula 2.0 28 04/24/19 07:35 119 04/24/19 04:00 Nasal Cannula 3.0 04/24/19 04:00 98.1 117 36 127/72 (90) 98 04/24/19 04:00 3.0 04/24/19 03:18 118 04/24/19 00:00 Nasal Cannula 3.0 04/24/19 00:00 3.0 04/24/19 00:00 98.1 120 30 127/68 (87) 97 04/23/19 23:33 111 04/23/19 22:37 Nasal Cannula 3.0 04/23/19 21:30 97.9 114 32 123/68 (86) 93 04/23/19 21:06 101.0 118 40 101/59 96 Simple Mask 4.0 04/23/19 21:00 101.0 118 40 101/59 96 Nasal Cannula 4.0 04/23/19 20:00 101.0 116 36 120/86 96 Nasal Cannula 4.0 04/23/19 19:00 101.0 111 35 120/86 96 Nasal Cannula 4.0 04/23/19 18:00 101.0 04/23/19 18:00 101.0 115 40 97/65 96 Room Air Intake and Output 04/23/19 04/24/19 19:00 07:00 Intake Total 3105 ml 805 ml Balance 3105 ml 805 ml Intake Free Water 200 ml IV Total 3105 ml 110 ml Tube Feeding 495 ml # Voids 1 # Bowel Movements 1 Laboratory Tests Test 04/23/19 16:45 04/23/19 17:50 04/24/19 04:10 04/24/19 07:55 Urine Color Brown Urine Appearance Slightly cloudy Urine pH 5 (4.5-8.0) Urine Specific [place] 1.015 (1.005-1.035) Urine Protein 2+ (NEGATIVE) H Urine Glucose (UA) Negative (NEGATIVE) Urine Ketones 1+ (NEGATIVE) H Urine Blood 4+ (NEGATIVE) H Urine Nitrite Negative (NEGATIVE) Urine Bilirubin Negative (NEGATIVE) Urine Urobilinogen 1 MG/DL (0.0-1.0) H Urine Leukocyte Esterase 3+ (NEGATIVE) H Urine RBC 10-15 /HPF (0 - 0) H Urine WBC Tntc /HPF (0 - 0) H Urine Squamous Epithelial Cells None /LPF (NONE/OCC) Urine Bacteria Many /HPF (NONE) H Lactic Acid Level 7.00 mmol/L (0.66-2.22) H White Blood Count 13.3 K/UL (4.8-10.8) H Red Blood Count 3.85 M/UL (4.70-6.10) L Hemoglobin 9.0 G/DL (14.2-18.0) L Hematocrit 28.7 % (42.0-52.0) L Mean Corpuscular Volume 75 FL (80-99) L Mean Corpuscular Hemoglobin 23.5 PG (27.0-31.0) L Mean Corpuscular Hemoglobin Concent 31.5 G/DL (32.0-36.0) L Red Cell Distribution Width 18.1 % (11.6-14.8) H Platelet Count 325 K/UL (150-450) Mean Platelet Volume 6.5 FL (6.5-10.1) Neutrophils (%) (Auto) % (45.0-75.0) Lymphocytes (%) (Auto) % (20.0-45.0) Monocytes (%) (Auto) % (1.0-10.0) Eosinophils (%) (Auto) % (0.0-3.0) Basophils (%) (Auto) % (0.0-2.0) Differential Total Cells Counted 100 Neutrophils % (Manual) 73 % (45-75) Lymphocytes % (Manual) 6 % (20-45) L Monocytes % (Manual) 4 % (1-10) Eosinophils % (Manual) 0 % (0-3) Basophils % (Manual) 0 % (0-2) Band Neutrophils 17 % (0-8) H Platelet Estimate Adequate Platelet Morphology Normal Hypochromasia 2+ Anisocytosis 2+ Microcytosis 1+ Sodium Level 139 MMOL/L (136-145) Potassium Level 3.9 MMOL/L (3.5-5.1) Chloride Level 105 MMOL/L (98-107) Carbon Dioxide Level 24 MMOL/L (21-32) Anion Gap 10 mmol/L (5-15) Blood Urea Nitrogen 43 mg/dL (7-18) H Creatinine 1.1 MG/DL (0.55-1.30) Estimat Glomerular Filtration Rate mL/min (>60) Glucose Level 158 MG/DL (74-106) H Calcium Level 8.4 MG/DL (8.5-10.1) L Arterial Blood pH 7.542 (7.350-7.450) Arterial Blood Partial Pressure CO2 24.8 mmHg (35.0-45.0) *L Arterial Blood Partial Pressure O2 76.0 mmHg (75.0-100.0) Arterial Blood HCO3 20.8 mmol/L (22.0-26.0) L Arterial Blood Oxygen Saturation 95.5 % (95-100) Arterial Blood Base Excess -0.8 (-2-2) Rhett Test Positive Microbiology Date/Time Source Procedure Growth Status 04/23/19 16:50 Nasal Nares - Final Complete 04/23/19 16:50 Nasal Nares - Final Complete 04/23/19 16:45 Urine,Clean Catch Urine Culture - Preliminary Resulted 04/23/19 20:25 Rectum Received Height (Feet): 5 Height (Inches): 9.00 Weight (Pounds): 107 Medications Current Medications Medications (Trade) Dose Ordered Sig/Mckenzie Route PRN Reason Start Time Stop Time Status Last Admin Dose Admin Acetaminophen (Tylenol) 500 mg Q6H PRN ORAL Mild Pain/Temp > 100.5 04/23/19 22:00 05/23/19 21:59 Ascorbic Acid (Vitamin C) 500 mg DAILY GT 5/29/19 09:00 05/24/19 08:59 04/24/19 08:43 Heparin Sodium (Porcine) (Heparin 5000 units/ml) 5,000 units EVERY 12 HOURS SUBQ 04/24/19 09:00 05/24/19 08:59 04/24/19 08:45 Meropenem 1 gm/ Sodium Chloride 55 ml @ 110 mls/hr Q24H IVPB 04/24/19 18:00 04/29/19 17:59 Metoprolol Tartrate (Lopressor) 12.5 mg Q12HR GT 04/24/19 09:00 05/24/19 08:59 04/24/19 08:44 Pantoprazole (Protonix) 40 mg DAILY ORAL 04/24/19 09:00 05/24/19 08:59 04/24/19 08:44 Sodium Hypochlorite (Dakin's Half Strength) 1 applic BID TOPIC 04/24/19 11:00 05/24/19 10:59 Vancomycin HCl (Vanco rx to dose) 1 ea DAILY PRN MISC Per rx protocol 04/23/19 22:00 05/23/19 21:59 Vancomycin HCl 500 mg/Dextrose 110 ml @ 110 mls/hr Q24H IVPB 04/23/19 23:00 04/28/19 22:59 04/24/19 00:06 Assessment/Plan Problem List: (1) Sepsis Assessment & Plan: Lactic acidosis leukocytosis renal insufficiency UTI PNA -IV fluids -IV abx -I&O -trend labs -cont with current care will monitor ICD Codes: A41.9 - Sepsis, unspecified organism SNOMED: 72176316 (2) Decubitus ulcer of trochanteric region of left hip Assessment & Plan: Pt presented on admission with multiple pressure injuries.Pt contracted in foetal position. Non-blanchable erythema noted to cleft of R ear. L ear is pink. Full thickness pressure injury with undermining L trochanter with mixed necrosis and loose fibrinous slough. Wound is malodorous. Periwound pink and indurated. (L)4cm x (W)3.5cm, undermining clockwise 12-12 by 2.2cm @3o'clock. An area of non-blanchable erythema without fluctuance or induration noted to medial posterior upper thigh. Two areas that area that area maroon and indurated noted to R hip /R trochanteric.(proximal) (L)2.5cm x (W)3.9cm. R trochanteric(L)3.5cm x (W) 4.5cm.Resolving pressure injury also noted to R trochanter inferiorly but in close proximity to DTPI.[place] epithelial that is dry with surrounding hyperpigmentation noted. Hyperpigmentation from previous pressure injury with surrounding brown pigmentation noted to Sacrum. Full thickness pressure injury noted to idalia R tibia. Base of wound 75% viable with 25% slough.(+) Epibole along edges. No odor noted .Small amt brownish exudate noted.Non-blanchable erythema without fluctuance/induration or elevation in skin temp periwound. Non-blanchable erythema with delineated borders noted to R heel and plantar R heel . Base of wound is fluctuant. (L)5.5cm x (W)6.5cm.Periwound pale but blanchable. Non-blanchable erythema noted to lateral R foot .Base of wound fluctuant.(L) 1.5cm x (W)2cm.Periwound pale but blanchable. Full thickness pressure injury noted L hallux extending into plantar aspect. 50% mixed slough necrosis noted .(+) maceration along edges.Small amt lewis coloured exudate noted .Wound is malodorous.(L)3.5cm x (W)6cm. Full thickness wound lateral L foot extending from base of 5th metatarsal to L heel. Wound is100% necrotic and is malodorous . L foot is swollen and All metatarsals noted to have dusky colour. (L)8cm x (W)18cm . Tx.Plan: Cleanse wounds R tibia and L foot with Dakin's daysi 0.25% .Apply Dakin's moist Gauze.Apply Triad periwound. Cover with ABD pads and wrap with Kerlix Q shift and prn. Apply triad paste to sacrum and medial L thigh. . Cover each site with Optifoam drsg. Change every 3 days and prn. Apply Triad paste to R hip /R trochanter .Cover with Optifoam drsg. Change every 3 days and prn Apply Cavilon to R heel and plantar R heel .Cover with Optifoam drsg. Change every 7 days and prn. Apply Cavilon to R heel daily and prn. Reposition at least every 2hours or as tolerated. Please use only pillows between knees and behind knees for off-loading. Air fluidized mattress. ICD Codes: L89.229 - Pressure ulcer of left hip, unspecified stage SNOMED: 466093262 (3) Ulcer of lower extremity excluding decubitus ulcer ICD Codes: L97.909 - Non-pressure chronic ulcer of unspecified part of unspecified lower leg with unspecified severity SNOMED: 571040402 (4) Lactic acid acidosis ICD Codes: E87.2 - Acidosis SNOMED: [id number] Rios Quiñones April 24, 2019 16:28
--- NOTE | 2019-04-24 16:30 | Cardiology Report ---
APPROVED REPORT EKG Measurement Heart [id number] ID [id number] Sinus tachycardia Low voltage QRS Septal infarct, age undetermined Inferior infarct, age undetermined Abnormal ECG
--- NOTE | 2019-04-24 17:30 | History and Physical Report ---
DATE OF ADMISSION: 04/23/2019 CHIEF COMPLAINT: Respiratory distress and altered level of consciousness. HISTORY OF PRESENT ILLNESS: This is an 83-year-old male from [facility]. I saw the patient yesterday in [facility] where the RN freeman my attention to this patient having very difficulty breathing. The patient was indeed in severe respiratory distress and was sent to this hospital ER. The patient is demented and unable to give any further information. PAST MEDICAL HISTORY: 1. Organic brain syndrome. 2. COPD. 3. Multiple contractures. 4. Stage IV sacral decubitus. 5. Left heel gangrene. MEDICATIONS: 1. Multivitamins. 2. Tube feeding. 3. Subcutaneous heparin. 4. DuoNeb inhalation. 5. Metoprolol. 6. Protonix. ALLERGIES: No known drug allergies. FAMILY HISTORY: Unable to obtain due to mental status. SOCIAL HISTORY: Unable to obtain due to mental status. REVIEW OF SYSTEMS: Unable to obtain due to mental status. PHYSICAL EXAMINATION: GENERAL: This is an elderly cachectic male who is in moderate respiratory distress. VITAL SIGNS: Blood pressure 123/74, pulse 118, sinus tachycardia, respirations 34, unlabored, temperature 97.9 axillary. HEENT: The head is normocephalic and atraumatic. NECK: Supple. Trachea midline. There was no lymphadenopathy or thyromegaly. LUNGS: Bilateral wheezes and rhonchi. HEART: Tachycardia. S1 and S2. No rubs, murmurs, or gallops. ABDOMEN: Soft and nontender. Bowel sounds were active. EXTREMITIES: His left heel has gangrene. SKIN: He has stage IV decubitus ulcer. NEUROLOGIC: He is obtunded. LABORATORY AND ANCILLARY DATA: CBC shows white count of 13,300, hematocrit 28.7. Chemistry, BUN 43, creatinine 1.1, and glucose 158. Chest x-ray, focal disease, left perihilar region, pneumonia suspected. Urinalysis too numerous to count white blood cells. ASSESSMENT: 1. Septicemia, multifocal and possible multiple etiologies. 2. Organic brain syndrome. 3. COPD. 4. Multiple contractures. 5. Stage IV sacral decubitus. 6. Left heel gangrene. PLAN: 1. Broad-spectrum IV antibiotics. 2. ID consult. 3. Pulmonary consult. 4. Wound consult. 5. Podiatry consult. Ervin Mario M.D. DR: YESICA JOB#: [id number] CC: HUONG
--- NOTE | 2019-04-24 17:45 | Consultation ---
DATE OF CONSULTATION: 04/24/2019 INFECTIOUS DISEASE CONSULTATION This consult is for coverage of Dr. Gomez. CONSULTING PHYSICIAN: Lev Pardo M.D. PRIMARY ATTENDING PHYSICIAN: Ervin Mario M.D. REASON FOR CONSULT: Sepsis, pneumonia, UTI, infected pressure ulcer. HISTORY OF PRESENT ILLNESS: This is an 83-year-old white male admitted yesterday from a nursing facility because of difficulty breathing. He had increase in oxygen requirement. The patient is not a source of history. The patient had fever of 101 in the hospital, pulse was up to 120, and lactic acidosis, leukocytosis, and acute renal failure. PAST MEDICAL HISTORY: Significant for COPD, Alzheimer's dementia, hypertension, atrial fibrillation, BPH, contracture of the legs, and the previous admission to [facility] in February 2019 with septic shock, sepsis with Proteus mirabilis. He has history of VRE colonization. ALLERGIES: No known drug allergy. MEDICATIONS: Meropenem, sodium, Meropenem, vitamin C, heparin, metoprolol, Protonix, and vancomycin. SOCIAL HISTORY: snf resident. . No other history is obtainable. PHYSICAL EXAMINATION: VITAL SIGNS: Current temperature is 98.4, pulse 120, respirations 30, and blood pressure 114/69. GENERAL APPEARANCE: Seems to be thin and cachectic. HEAD AND NECK: Getting oxygen by nasal cannula. HEART: Tachycardic. LUNGS: Clear. ABDOMEN: Soft. G-tube in place. EXTREMITIES: Contracted legs. SKIN: Necrotic ulcer in the left foot, deep wounds likely with osteomyelitis in both feet. A small right foot ulceration. NEUROLOGIC: Nonresponsive. LABORATORY AND DIAGNOSTIC DATA: WBC 13.3, hemoglobin 9, hematocrit 28.7, and platelets 325. Sodium 139, potassium 3.9, chloride 105, bicarb 24, BUN 43, and creatinine 1.1. Creatinine at the time of admission was 1.8. Lactic acid, the latest one was 7. Albumin is 1.6. UA showed wbc's too numerous to count, rbc's 10 to 15, leukocyte esterase 2+, nitrite negative. Chest x-ray showed focal airspace to left parahilar region, pneumonia suspected. IMPRESSION: Sepsis with fever, tachycardia, tachypnea, and lactic acidosis. The patient has pneumonia, has pyuria, urinary tract infection, infected pressure ulcer, likely osteomyelitis in the left foot and left hip. He has history of chronic obstructive pulmonary disease, advanced dementia, hypertension, and history of benign prostatic hypertrophy. RECOMMENDATION: We will continue with vancomycin and meropenem. We will follow up the cultures. The patient likely will need amputation of left lower extremity. We will order left hip x-ray to rule out osteomyelitis. At the end of my exam, I thank Dr. Mario for involving me in the care of this patient. Lev Pardo M.D. DR: FLOYD JOB#: [id number] CC: HUONG
--- NOTE | 2019-04-24 17:55 | NUR ---
NURSE NOTES: TURNED AND REPOSITIONED PATIENT. ORAL CARE DONE. SUCTIONED PATIENT ORALLY. WILL CONTINUE TO MONITOR.
[2019-04-24] MEDS ORDERED: Meropenem 1 GM in NS 55 ML IVPB SCH (18:00)
--- NOTE | 2019-04-24 18:02 | Diagnostic Imaging Report ---
Indication: Left hip infection Technique: One view of the left hip Comparison: none Findings: Exam is very limited, as the patient is very contracted., There is a large lateral ulcer overlying the greater trochanter. The cortex is somewhat indistinct in a few areas, and on one of the images also were appears to be very close to the bone surface. The hip joint appears to be subluxed superiorly and laterally. There is marked degenerative change of the joint, with degenerative remodeling of the femoral head and acetabulum. No gross fracture demonstrated. Considerable stool is seen in the rectum Impression: Very limited exam, as described Large ulcer superficial to the greater trochanter. Equivocal slight indistinctness of the cortical surface of the greater trochanter. If real, could indicate osteomyelitis changes. Consider MRI or bone scan for more specific characterization Subluxation of the hip joint, presumably related to contracture, with degenerative change and degenerative remodeling No gross acute bony trauma
--- NOTE | 2019-04-24 19:08 | NUR ---
HAND-OFF: Report given to Tanner Romano RN.
--- NOTE | 2019-04-24 19:10 | NUR ---
NURSE NOTES: Received report from Jacey RN, pt. in bed with eyes open- non-verbal- Flat affect, no signs or symptoms of acute cardiac or respiratory distress noted, cardiac monitoring on, bed in lowest position and call light within easy reach, bed alarm on, side rails up x's 3 and safety brakes engaged, comfort measures provided and all needs attended too, pt. is clean and dry, pt. appears to be sating well on 3L cannula at 97%- no distress noted, G tube running Jevity 1.2 at 55cc/hr- no residual noted, condom cath intact and draining to gravity, dressings clean and dry, left AC 20 IV intact and patent, safety measures continued, will continue with plan of care.
[2019-04-24] MEDS ORDERED: METOPROLOL TART25 MG ORAL (19:24)
[2019-04-24] MEDS ORDERED: JEVITY 1.2 CA1500 ML PO (19:27)
[2019-04-24 20:00] VITALS: BP 123/63
[2019-04-24] MEDS: Acetaminophen 650mg/20.3ml ORAL PRN (20:22)
[2019-04-24] MEDS: Dakin's 0.25% (Half Strength) 16oz TOPIC SCH (20:24)
[2019-04-25] VITALS: BP 120/82
[2019-04-25 04:00] VITALS: BP 116/71
--- NOTE | 2019-04-25 07:03 | NUR ---
HAND-OFF: Report given to Brad RN, pt. remains stable and no signs of distress noted- aware to f/u on potassium trending down.
--- NOTE | 2019-04-25 07:42 | NUR ---
NURSE NOTES: received report from JOSE Nelson. patient is nonverbal but opens eyes and is arousable to touch. no signs/symptoms of pain noted. patient is on 3 liters nasal cannula. no signs and symtoms of distress noted. G-tube is patent and intact and currently running feeding at 55 cc/hr. condom catheter is patent, intact and draining. IV site is patent and intact. bed in lowest position and locked, siderails up X2, call light within reach. will continue to monitor.
[2019-04-25 08:00] VITALS: BP 137/73
[2019-04-25] MEDS: Ascorbic Acid 500mg tab GT SCH (09:10)
[2019-04-25] MEDS: Metoprolol 25mg tab GT SCH ×2 (09:10→20:34)
[2019-04-25] MEDS: Heparin 5000 units/ml inj SUBQ SCH ×2 (09:12→20:35)
[2019-04-25] MEDS: Acetaminophen 650mg/20.3ml ORAL PRN (09:13)
[2019-04-25] MEDS: Dakin's 0.25% (Half Strength) 16oz TOPIC SCH ×2 (09:16→20:36)
--- NOTE | 2019-04-25 11:20 | Infectious Diseases Prog Note ---
Assessment/Plan Assessment/Plan IMPRESSION: Sepsis Lactic acidosis. Pneumonia, has pyuria, Urinary tract infection, Infected pressure ulcer, likely osteomyelitis in the left foot and left hip. Chronic obstructive pulmonary disease, advanced Dementia, Hypertension, History of benign prostatic hypertrophy. RECOMMENDATION: We will continue with vancomycin and meropenem. We will follow up the cultures Subjective ROS Limited/Unobtainable: Yes Respiratory: Reports: productive cough Allergies: Coded Allergies: No Known Allergies (Unverified , 02/25/19) Objective Vital Signs Last 24 Hour Vital Signs Date Time Temp Pulse Resp B/P (MAP) Pulse Ox O2 Delivery O2 Flow Rate FiO2 04/25/19 09:10 112 137/73 04/25/19 08:00 Nasal Cannula 3.0 04/25/19 08:00 99.0 121 25 137/73 (94) 96 04/25/19 08:00 112 04/25/19 06:45 95 Nasal Cannula 2.0 28 04/25/19 04:00 105 04/25/19 04:00 Nasal Cannula 3.0 04/25/19 04:00 97.7 102 24 116/71 (86) 96 04/25/19 00:00 Nasal Cannula 3.0 04/25/19 00:00 103 04/25/19 00:00 97.5 101 20 120/82 (95) 95 04/24/19 20:52 98.4 04/24/19 20:22 91 126/63 04/24/19 20:02 96 Nasal Cannula 2.0 28 04/24/19 20:00 99.8 92 24 123/63 (83) 97 04/24/19 20:00 Nasal Cannula 3.0 04/24/19 20:00 119 04/24/19 16:00 Nasal Cannula 3.0 04/24/19 16:00 116 04/24/19 16:00 98.4 120 30 123/73 (90) 92 04/24/19 12:00 115 04/24/19 12:00 98.4 120 30 114/69 (84) 96 04/24/19 12:00 Nasal Cannula 3.0 Height (Feet): 5 Height (Inches): 9.00 Weight (Pounds): 107 General Appearance: no acute distress HEENT: other - dry mouth Respiratory/Chest: lungs clear Cardiovascular: tachycardia Abdomen: soft, non tender, other - GT feeding Extremities: no edema, other - Contracted kness Neurologic/Psychiatric: alert, aphasia Microbiology Date/Time Source Procedure Growth Status 04/23/19 16:30 Blood Blood Culture - Preliminary NO GROWTH AFTER 24 HOURS Resulted 04/23/19 16:15 Blood Blood Culture - Preliminary NO GROWTH AFTER 24 HOURS Resulted 04/23/19 16:50 Nasal Nares - Final Complete 04/23/19 16:50 Nasal Nares - Final Complete 04/23/19 16:45 Urine,Clean Catch Urine Culture - Preliminary Gram Negative Bacillus 1 Resulted 04/23/19 20:25 Rectum Received Current Medications Medications (Trade) Dose Ordered Sig/Mckenzie Route PRN Reason Start Time Stop Time Status Last Admin Dose Admin Acetaminophen (Tylenol) 500 mg Q6H PRN ORAL Mild Pain/Temp > 100.5 04/23/19 22:00 05/23/19 21:59 04/25/19 09:13 Ascorbic Acid (Vitamin C) 500 mg DAILY GT 04/24/19 09:00 05/24/19 08:59 04/25/19 09:10 Heparin Sodium (Porcine) (Heparin 5000 units/ml) 5,000 units EVERY 12 HOURS SUBQ 04/24/19 09:00 05/24/19 08:59 04/25/19 09:12 Meropenem 1 gm/ Sodium Chloride 55 ml @ 110 mls/hr Q24H IVPB 04/24/19 18:00 04/29/19 17:59 04/24/19 17:33 Metoprolol Tartrate (Lopressor) 12.5 mg Q12HR GT 04/24/19 09:00 05/24/19 08:59 04/25/19 09:10 Pantoprazole (Protonix) 40 mg DAILY ORAL 04/24/19 09:00 05/24/19 08:59 04/25/19 09:10 Sodium Hypochlorite (Dakin's Half Strength) 1 applic Q12HR TOPIC 04/24/19 21:00 05/24/19 10:59 04/25/19 09:16 Vancomycin HCl (Vanco rx to dose) 1 ea DAILY PRN MISC Per rx protocol 04/23/19 22:00 05/23/19 21:59 Vancomycin HCl 500 mg/Dextrose 110 ml @ 110 mls/hr Q24H IVPB 04/23/19 23:00 04/28/19 22:59 04/24/19 23:01 Lev Pardo MD April 25, 2019 11:20
[2019-04-25 11:43] VITALS: BP 114/67
--- NOTE | 2019-04-25 13:07 | Pulmonology Progress Note ---
Assessment/Plan Assessment/Plan IMPRESSION: 1. Acute on chronic respiratory failure. 2. Acute on chronic renal failure. 3. Profound lactic acidemia, possibly due to underlying sepsis. 4. Hyperkalemia. 5. Leukocytosis. 6. Anemia. 7. COPD per history. PLAN care noted respiratory care antibiotics aspiration precautions oxygen therapy monitor as is impression, plan, and exam edited and reviewed in detail care discussed with RN Subjective Allergies: Coded Allergies: No Known Allergies (Unverified , 02/25/19) Subjective care noted and reviewed withdrawn no distress on oxygen Objective Last 24 Hour Vital Signs Date Time Temp Pulse Resp B/P (MAP) Pulse Ox O2 Delivery O2 Flow Rate FiO2 04/25/19 12:00 Nasal Cannula 3.0 04/25/19 11:43 97.9 96 26 114/67 (83) 99 04/25/19 09:43 97.2 04/25/19 09:10 112 137/73 04/25/19 08:00 Nasal Cannula 3.0 04/25/19 08:00 99.0 121 25 137/73 (94) 96 04/25/19 08:00 112 04/25/19 06:45 95 Nasal Cannula 2.0 28 04/25/19 04:00 105 04/25/19 04:00 Nasal Cannula 3.0 04/25/19 04:00 97.7 102 24 116/71 (86) 96 04/25/19 00:00 Nasal Cannula 3.0 04/25/19 00:00 103 04/25/19 00:00 97.5 101 20 120/82 (95) 95 04/24/19 20:22 91 126/63 04/24/19 20:02 96 Nasal Cannula 2.0 28 04/24/19 20:00 99.8 92 24 123/63 (83) 97 04/24/19 20:00 Nasal Cannula 3.0 04/24/19 20:00 119 04/24/19 16:00 Nasal Cannula 3.0 04/24/19 16:00 116 04/24/19 16:00 98.4 120 30 123/73 (90) 92 Intake and Output 04/24/19 04/25/19 19:00 07:00 Intake Total 970 ml 1115 ml Output Total 450 ml 500 ml Balance 520 ml 615 ml Intake Free Water 200 ml 400 ml IV Total 110 ml 110 ml Tube Feeding 660 ml 605 ml Output Urine Total 450 ml 500 ml # Bowel Movements 4 3 Objective GENERAL: An ill-appearing male overall without significant distress. HEENT: Overall negative. NECK: Supple. No adenopathy. LUNGS: The patient without any accessory muscle use. LUNGS: Scattered rhonchi. Moderate air entry. no wheeze CARDIAC: Somewhat tachycardic without murmurs, rubs, gallops. ABDOMEN: Soft, nontender. G-tube in place. EXTREMITIES: Reduced range of motion. NEUROLOGICALLY: Poorly responsive. Microbiology Date/Time Source Procedure Growth Status 04/23/19 16:30 Blood Blood Culture - Preliminary NO GROWTH AFTER 24 HOURS Resulted 04/23/19 16:15 Blood Blood Culture - Preliminary NO GROWTH AFTER 24 HOURS Resulted 04/23/19 16:50 Nasal Nares - Final Complete 04/23/19 16:50 Nasal Nares - Final Complete 04/23/19 16:45 Urine,Clean Catch Urine Culture - Preliminary Gram Negative Bacillus 1 Resulted 04/23/19 20:25 Rectum Received Current Medications Medications (Trade) Dose Ordered Sig/Mckenzie Route PRN Reason Start Time Stop Time Status Last Admin Dose Admin Acetaminophen (Tylenol) 500 mg Q6H PRN ORAL Mild Pain/Temp > 100.5 04/23/19 22:00 05/23/19 21:59 04/25/19 09:13 Ascorbic Acid (Vitamin C) 500 mg DAILY GT 04/24/19 09:00 05/24/19 08:59 04/25/19 09:10 Heparin Sodium (Porcine) (Heparin 5000 units/ml) 5,000 units EVERY 12 HOURS SUBQ 04/24/19 09:00 05/24/19 08:59 04/25/19 09:12 Meropenem 1 gm/ Sodium Chloride 55 ml @ 110 mls/hr Q24H IVPB 04/24/19 18:00 04/29/19 17:59 04/24/19 17:33 Metoprolol Tartrate (Lopressor) 12.5 mg Q12HR GT 04/24/19 09:00 05/24/19 08:59 04/25/19 09:10 Pantoprazole (Protonix) 40 mg DAILY ORAL 04/24/19 09:00 05/24/19 08:59 04/25/19 09:10 Sodium Hypochlorite (Dakin's Half Strength) 1 applic Q12HR TOPIC 04/24/19 21:00 05/24/19 10:59 04/25/19 09:16 Vancomycin HCl (Vanco rx to dose) 1 ea DAILY PRN MISC Per rx protocol 04/23/19 22:00 05/23/19 21:59 Vancomycin HCl 500 mg/Dextrose 110 ml @ 110 mls/hr Q24H IVPB 04/23/19 23:00 04/28/19 22:59 04/24/19 23:01 Tim Andrade MD April 25, 2019 13:07
--- NOTE | 2019-04-25 15:43 | Surgery Progress Note ---
Surgery Progress Note Subjective Additional Comments no acute events. stable. comfortable. labs noted. Objective Last 24 Hour Vital Signs Date Time Temp Pulse Resp B/P (MAP) Pulse Ox O2 Delivery O2 Flow Rate FiO2 04/25/19 12:00 92 04/25/19 12:00 Nasal Cannula 3.0 04/25/19 11:43 97.9 96 26 114/67 (83) 99 04/25/19 09:43 97.2 04/25/19 09:10 112 137/73 04/25/19 08:00 Nasal Cannula 3.0 04/25/19 08:00 99.0 121 25 137/73 (94) 96 04/25/19 08:00 112 04/25/19 06:45 95 Nasal Cannula 2.0 28 04/25/19 04:00 105 04/25/19 04:00 Nasal Cannula 3.0 04/25/19 04:00 97.7 102 24 116/71 (86) 96 04/25/19 00:00 Nasal Cannula 3.0 04/25/19 00:00 103 04/25/19 00:00 97.5 101 20 120/82 (95) 95 04/24/19 20:22 91 126/63 04/24/19 20:02 96 Nasal Cannula 2.0 28 04/24/19 20:00 99.8 92 24 123/63 (83) 97 04/24/19 20:00 Nasal Cannula 3.0 04/24/19 20:00 119 04/24/19 16:00 Nasal Cannula 3.0 04/24/19 16:00 116 04/24/19 16:00 98.4 120 30 123/73 (90) 92 I&O Intake and Output 04/24/19 04/25/19 19:00 07:00 Intake Total 970 ml 1115 ml Output Total 450 ml 500 ml Balance 520 ml 615 ml Intake Free Water 200 ml 400 ml IV Total 110 ml 110 ml Tube Feeding 660 ml 605 ml Output Urine Total 450 ml 500 ml # Bowel Movements 4 3 Drains: other Cardiovascular: RSR Respiratory: clear Abdomen: soft, non-tender, decreased bowel sounds Extremities: edema, cyanosis, other Plan Problems: (1) Sepsis Assessment & Plan: Lactic acidosis leukocytosis renal insufficiency UTI PNA -IV fluids -IV abx -I&O -trend labs -cont with current care will monitor (2) Decubitus ulcer of trochanteric region of left hip Assessment & Plan: Pt presented on admission with multiple pressure injuries.Pt contracted in foetal position. Non-blanchable erythema noted to cleft of R ear. L ear is pink. Full thickness pressure injury with undermining L trochanter with mixed necrosis and loose fibrinous slough. Wound is malodorous. Periwound pink and indurated. (L)4cm x (W)3.5cm, undermining clockwise 12-12 by 2.2cm @3o'clock. An area of non-blanchable erythema without fluctuance or induration noted to medial posterior upper thigh. Two areas that area that area maroon and indurated noted to R hip /R trochanteric.(proximal) (L)2.5cm x (W)3.9cm. R trochanteric(L)3.5cm x (W) 4.5cm.Resolving pressure injury also noted to R trochanter inferiorly but in close proximity to DTPI.[place] epithelial that is dry with surrounding hyperpigmentation noted. Hyperpigmentation from previous pressure injury with surrounding brown pigmentation noted to Sacrum. Full thickness pressure injury noted to idalia R tibia. Base of wound 75% viable with 25% slough.(+) Epibole along edges. No odor noted .Small amt brownish exudate noted.Non-blanchable erythema without fluctuance/induration or elevation in skin temp periwound. Non-blanchable erythema with delineated borders noted to R heel and plantar R heel . Base of wound is fluctuant. (L)5.5cm x (W)6.5cm.Periwound pale but blanchable. Non-blanchable erythema noted to lateral R foot .Base of wound fluctuant.(L) 1.5cm x (W)2cm.Periwound pale but blanchable. Full thickness pressure injury noted L hallux extending into plantar aspect. 50% mixed slough necrosis noted .(+) maceration along edges.Small amt lewis coloured exudate noted .Wound is malodorous.(L)3.5cm x (W)6cm. Full thickness wound lateral L foot extending from base of 5th metatarsal to L heel. Wound is100% necrotic and is malodorous . L foot is swollen and All metatarsals noted to have dusky colour. (L)8cm x (W)18cm . Tx.Plan: Cleanse wounds R tibia and L foot with Dakin's daysi 0.25% .Apply Dakin's moist Gauze.Apply Triad periwound. Cover with ABD pads and wrap with Kerlix Q shift and prn. Apply triad paste to sacrum and medial L thigh. . Cover each site with Optifoam drsg. Change every 3 days and prn. Apply Triad paste to R hip /R trochanter .Cover with Optifoam drsg. Change every 3 days and prn Apply Cavilon to R heel and plantar R heel .Cover with Optifoam drsg. Change every 7 days and prn. Apply Cavilon to R heel daily and prn. Reposition at least every 2hours or as tolerated. Please use only pillows between knees and behind knees for off-loading. Air fluidized mattress. (3) Ulcer of lower extremity excluding decubitus ulcer (4) Lactic acid acidosis (5) Gastroparesis Assessment & Plan: DAILY ESTIMATED NEEDS: Needs based on Wounds, underweight 50.5kg 30-35 kcals/kg 1548-3660 total kcals 1.5-2.0 g protein/kg 76-101 g total protein 25-30 mL/kg 8127-0729 total fluid mLs NUTRITION DIAGNOSIS: * Increased kcal/pro needs R/T wound healing as evidenced by pt admitted w/ multiple advanced wounds including L hip, L foot wound, pending eval. * Swallowing difficulty R/T dysphagia as evidenced by pt GT dep for all nutritional needs. CURRENT TF:Jevity 1.2 @ 55ml/hr x 24 hrs ENTERAL NUTRITION RECOMMENDATIONS: Jevity 1.2 @ 55ml/hr x 24 hrs + Prosource 1pkt daily to provide 1320ml, 1584kcal, 73g + 11g prot, 1065ml free water * Add Prosource 1pkt daily to better meet protein needs * HOB over 30 degrees/ water flush per MD ----- ADDITIONAL RECOMMENDATIONS: * Calibrated bedscale wt for accurate CBW * WOUND HEALING: add Simon 1pkt BID, Vit C 500mg BID + ZnSO4 220mg daily x10 days * Monitor lytes, replete as needed * Monitor tolerance to TF Rios Quiñones April 25, 2019 15:43
[2019-04-25 16:00] VITALS: BP 138/91
--- NOTE | 2019-04-25 16:47 | General Progress Note ---
Assessment/Plan Assessment/Plan: Multifactorial sepsis UTI, Gangrene Lt ankle, Sacral decub., pneumonia - IV Abx per IV Volume depletion -IVF Subjective Allergies: Coded Allergies: No Known Allergies (Unverified , 02/25/19) Subjective Confused Objective Last 24 Hour Vital Signs Date Time Temp Pulse Resp B/P (MAP) Pulse Ox O2 Delivery O2 Flow Rate FiO2 04/25/19 16:00 Nasal Cannula 3.0 04/25/19 16:00 98.3 115 24 138/91 (107) 94 04/25/19 12:00 92 04/25/19 12:00 Nasal Cannula 3.0 04/25/19 11:43 97.9 96 26 114/67 (83) 99 04/25/19 09:43 97.2 04/25/19 09:10 112 137/73 04/25/19 08:00 Nasal Cannula 3.0 04/25/19 08:00 99.0 121 25 137/73 (94) 96 04/25/19 08:00 112 04/25/19 06:45 95 Nasal Cannula 2.0 28 04/25/19 04:00 105 04/25/19 04:00 Nasal Cannula 3.0 04/25/19 04:00 97.7 102 24 116/71 (86) 96 04/25/19 00:00 Nasal Cannula 3.0 04/25/19 00:00 103 04/25/19 00:00 97.5 101 20 120/82 (95) 95 04/24/19 20:22 91 126/63 04/24/19 20:02 96 Nasal Cannula 2.0 28 04/24/19 20:00 99.8 92 24 123/63 (83) 97 04/24/19 20:00 Nasal Cannula 3.0 04/24/19 20:00 119 Intake and Output 04/24/19 04/25/19 19:00 07:00 Intake Total 970 ml 1115 ml Output Total 450 ml 500 ml Balance 520 ml 615 ml Intake Free Water 200 ml 400 ml IV Total 110 ml 110 ml Tube Feeding 660 ml 605 ml Output Urine Total 450 ml 500 ml # Bowel Movements 4 3 Height (Feet): 5 Height (Inches): 9.00 Weight (Pounds): 107 Objective CV RR Lungs B Ronchi Abd SNT. BS + E Lt. ankle gangrene. Sacral decub Shechter,Pagiel MD April 25, 2019 16:47
[2019-04-25] MEDS: Meropenem 1gm/NS 110ml IVPB SCH ×2 (17:08)
--- NOTE | 2019-04-25 18:06 | Consultation ---
History of Present Illness General Date patient seen: April 25, 2019 Time patient seen: 18:00 Chief Complaint: Dyspnea/Respdistress Present Illness HPI 83-year-old male with multiple medical comorbidities, admitted for worsening pneumonia, sepsis from nursing home facility with worsening shortness of breath. Allergies: Coded Allergies: No Known Allergies (Unverified , 02/25/19) Medication History Scheduled Docusate Sodium (Docusate Sodium), 100 MG ORAL DAILY, (Reported) Heparin Sod (Porcine) (Heparin Sodium*), 5,000 UNITS SUBQ EVERY 12 HOURS Lactose-Reduced Food/Fiber (Jevity 1.2 Mega Liquid), 55 ML PO EVERY HOUR, ( Reported) Metoprolol Tartrate* (Metoprolol Tartrate*), 25 MG ORAL EVERY 12 HOURS, ( Reported) Pantoprazole* (Protonix*), 40 MG ORAL DAILY Scheduled PRN Acetaminophen* (Tylenol Extra Strength*), 500 MG ORAL Q6H PRN for Mild Pain/ Temp > 100.5, (Reported) Ipratropium/Albuterol Sulfate (DuoNeb 0.5-3(2.5)mg/3ml), 3 ML HHN Q4H PRN Discontinued Medications Ascorbic Acid* (Vitamin C*), 500 MG ORAL DAILY, (Reported) Discontinued Reason: Pt stopped taking med Metoprolol Tartrate (Metoprolol Tartrate), 12.5 MG ORAL Q12HR Discontinued Reason: Medication dose changed Patient History Healthcare decision maker Resuscitation status Full Code Advanced Directive on File Yes Physical Exam Physical Exam Narrative Focused BL LE Right leg: mid-tibia anterior superficial ulceration, no acute SOI are noted, no active purulent drainage or ascending cellulitis. Left foot: Significant lateral foot ulceration extending from proximal calc to distal 5th metatarsal. (+) malodor, wound base is necrotic, with exposed bone, ( -) active purulent drainage, unable to palpable pulses, Increase temp differential, toes 1-5 are noted to be dusky. Last 24 Hour Vital Signs Date Time Temp Pulse Resp B/P (MAP) Pulse Ox O2 Delivery O2 Flow Rate FiO2 04/25/19 16:00 Nasal Cannula 3.0 04/25/19 16:00 98.3 115 24 138/91 (107) 94 04/25/19 16:00 102 04/25/19 12:00 92 04/25/19 12:00 Nasal Cannula 3.0 04/25/19 11:43 97.9 96 26 114/67 (83) 99 04/25/19 09:43 97.2 04/25/19 09:10 112 137/73 04/25/19 08:00 Nasal Cannula 3.0 04/25/19 08:00 99.0 121 25 137/73 (94) 96 04/25/19 08:00 112 04/25/19 06:45 95 Nasal Cannula 2.0 28 04/25/19 04:00 105 04/25/19 04:00 Nasal Cannula 3.0 04/25/19 04:00 97.7 102 24 116/71 (86) 96 04/25/19 00:00 Nasal Cannula 3.0 04/25/19 00:00 103 04/25/19 00:00 97.5 101 20 120/82 (95) 95 04/24/19 20:22 91 126/63 04/24/19 20:02 96 Nasal Cannula 2.0 28 04/24/19 20:00 99.8 92 24 123/63 (83) 97 04/24/19 20:00 Nasal Cannula 3.0 04/24/19 20:00 119 Intake and Output 04/24/19 04/25/19 19:00 07:00 Intake Total 970 ml 1115 ml Output Total 450 ml 500 ml Balance 520 ml 615 ml Intake Free Water 200 ml 400 ml IV Total 110 ml 110 ml Tube Feeding 660 ml 605 ml Output Urine Total 450 ml 500 ml # Bowel Movements 4 3 Height (Feet): 5 Height (Inches): 9.00 Weight (Pounds): 107 Medications Current Medications Medications (Trade) Dose Ordered Sig/Mckenzie Route PRN Reason Start Time Stop Time Status Last Admin Dose Admin Acetaminophen (Tylenol) 500 mg Q6H PRN ORAL Mild Pain/Temp > 100.5 04/23/19 22:00 05/23/19 21:59 04/25/19 09:13 Ascorbic Acid (Vitamin C) 500 mg DAILY GT 04/24/19 09:00 05/24/19 08:59 04/25/19 09:10 Heparin Sodium (Porcine) (Heparin 5000 units/ml) 5,000 units EVERY 12 HOURS SUBQ 04/24/19 09:00 05/24/19 08:59 04/25/19 09:12 Meropenem 1 gm/ Sodium Chloride 110 ml @ 220 mls/hr Q12HR@0500,1700 IVPB 04/25/19 17:00 04/30/19 16:59 04/25/19 17:08 Metoprolol Tartrate (Lopressor) 12.5 mg Q12HR GT 04/24/19 09:00 05/24/19 08:59 04/25/19 09:10 Pantoprazole (Protonix) 40 mg DAILY ORAL 04/24/19 09:00 05/24/19 08:59 04/25/19 09:10 Sodium Hypochlorite (Dakin's Half Strength) 1 applic Q12HR TOPIC 04/24/19 21:00 05/24/19 10:59 04/25/19 09:16 Vancomycin HCl (Vanco rx to dose) 1 ea DAILY PRN MISC Per rx protocol 04/23/19 22:00 05/23/19 21:59 Vancomycin HCl 500 mg/Dextrose 110 ml @ 110 mls/hr Q24H IVPB 04/23/19 23:00 04/28/19 22:59 04/24/19 23:01 Assessment/Plan Assessment/Plan: A: left foot Lateral foot ulceration, infected R mid tibia ulceration, stable Pneumonia Sepsis Resp failure COPD P: - Pt seen and evaluated - wbc, 13.3 - temp, 98.3 - Cont betadine dressing to LLE - Cont offloading measures - IV ABx per ID, blood Cx results. - Cont current tx plan from other specialists - Pt LLE non-salvable with extensive soft tissue loss, if Left foot is source of sepsis then recommend BKA of LLE - No acute surgical intervention required by podiatry - Podiatry will cont to monitor. Cristian Connor DPM April 25, 2019 18:06
--- NOTE | 2019-04-25 18:58 | NUR ---
HAND-OFF: Report given to JOSE Mark. Stable condition.
--- NOTE | 2019-04-25 18:59 | NUR ---
NURSE NOTES: Received report from Alexy Rodriguez RN. Patient seen in bed in semi steward position with GTF on and GT site is intact. On oxygen 3L/min via N/C with sp02 97%. IV site to legft ac 20g is intact. noted with condom cath and urine is draining. PAtient is non verbal, flat affect. no S/Sx of pain is noted via FLACC scale. bed is in lowest position. Call light is within easy reach while in bed. will continue to monitor.
[2019-04-25 20:00] VITALS: BP 131/85
[2019-04-25] MEDS ORDERED: Vancomycin 1 GM in D5W 275 ML IVPB SCH (23:00)
--- NOTE | 2019-04-25 23:30 | NUR ---
NURSE NOTES: Vanco trough is 3. Spoke to pipeline pharmacist. dose is now increased.
[2019-04-26] VITALS: BP 136/78
[2019-04-26 04:00] VITALS: BP 144/78
[2019-04-26] MEDS: Meropenem 1gm/NS 110ml IVPB SCH ×2 (04:01)
[2019-04-26 05:46] LABS: BASOPHILS % (AUTO) 0.6 % (0.0-2.0); EOSINOPHILS % (AUTO) 0.1 % (0.0-3.0); HEMATOCRIT 27.6 % (42.0-52.0); HEMOGLOBIN 8.5 G/DL (14.2-18.0); LYMPHOCYTES % (AUTO) 9.6 % (20.0-45.0); MEAN CORPUSCULAR VOLUME 75 FL (80-99); MONOCYTES % (AUTO) 5.3 % (1.0-10.0); NEUTROPHILS % (AUTO) 84.5 % (45.0-75.0); PLATELET COUNT 324 K/UL (150-450); RED CELL DISTRIBUTION WIDTH 18.4 % (11.6-14.8); WHITE BLOOD COUNT 7.9 K/UL (4.8-10.8)
--- NOTE | 2019-04-26 07:20 | NUR ---
NURSE NOTES: Report given to JOSE Salazar
--- NOTE | 2019-04-26 07:20 | NUR ---
NURSE NOTES: Received bedside report from Belkys GARCIA. Pt. in bed, asleep but respond to tactile stimuli. No SOB noted. On 3LPM via NC. No grimacing noted. On GTF in placed patent/intact running Jevity 1.2 at 55cc/hr. HOB elevated at all times. IV site at left AC #20g. in placed. Bed in low position, locked. Call light within reach. Will cont. to monitor.
[2019-04-26 08:00] VITALS: BP 150/89
[2019-04-26] MEDS: Ascorbic Acid 500mg tab GT SCH (09:04)
[2019-04-26] MEDS: Metoprolol 25mg tab GT SCH (09:05)
[2019-04-26] MEDS: Dakin's 0.25% (Half Strength) 16oz TOPIC SCH ×2 (09:05→21:47)
[2019-04-26] MEDS: Heparin 5000 units/ml inj SUBQ SCH ×2 (09:07→21:32)
--- NOTE | 2019-04-26 10:02 | NUR ---
RD ASSESSMENT & RECOMMENDATIONS SEE CARE ACTIVITY FOR COMPLETE ASSESSMENT DAILY ESTIMATED NEEDS: Needs based on Wounds, underweight 50.5kg 30-35 kcals/kg 9890-7430 total kcals 1.5-2.0 g protein/kg 76-101 g total protein 25-30 mL/kg 0641-8894 total fluid mLs NUTRITION DIAGNOSIS: * Increased kcal/pro needs R/T wound healing as evidenced by pt admitted w/ multiple full thickness wounds, refer to WC eval. * Swallowing difficulty R/T dysphagia as evidenced by pt GT dep for all nutritional needs. ENTERAL NUTRITION RECOMMENDATIONS: Jevity 1.2 @ 55ml/hr x 24 hrs + Prosource 1pkt daily to provide 1320ml, 1584kcal, 73g + 11g prot, 1065ml free water * Add Prosource 1pkt daily to better meet protein needs * HOB over 30 degrees/ water flush per MD ADDITIONAL RECOMMENDATIONS: * Calibrated bedscale wt for accurate CBW * WOUND HEALING: add Simon 1pkt BID, Vit C 500mg BID + ZnSO4 220mg daily x10 days * Monitor lytes, replete as needed (low Mg) * Monitor tolerance to TF . .
--- NOTE | 2019-04-26 11:06 | Infectious Diseases Prog Note ---
"Assessment/Plan Assessment/Plan antibiotics : vancomycin iv, meropenem A 1. morganella | gram positive UTI 2. pneumonia 3. leucocytosis resolved 4. left hip and foot likely osteomyelitis 5. COPD 6. hypertension 7. dementia P 1. continue iv vancomycin 2. d/c meropenem 3. start cefepime 4. will follow up cultures Subjective ROS Limited/Unobtainable: Yes Allergies: Coded Allergies: No Known Allergies (Unverified , 02/25/19) Objective Vital Signs Last 24 Hour Vital Signs Date Time Temp Pulse Resp B/P (MAP) Pulse Ox O2 Delivery O2 Flow Rate FiO2 04/26/19 09:05 115 150/89 04/26/19 08:00 99.7 115 24 150/89 (109) 94 04/26/19 08:00 Nasal Cannula 3.0 04/26/19 07:48 117 04/26/19 07:25 96 Nasal Cannula 2.0 28 04/26/19 04:00 Nasal Cannula 3.0 04/26/19 04:00 99.2 112 28 144/78 (100) 97 04/26/19 03:44 112 04/26/19 00:00 Nasal Cannula 3.0 04/26/19 00:00 98.8 104 28 136/78 (97) 97 04/25/19 23:56 104 04/25/19 21:16 95 Nasal Cannula 3.0 32 04/25/19 20:34 100 140/92 04/25/19 20:00 98.1 114 28 131/85 (100) 98 04/25/19 20:00 Nasal Cannula 3.0 04/25/19 19:23 110 04/25/19 16:00 Nasal Cannula 3.0 04/25/19 16:00 98.3 115 24 138/91 (107) 94 04/25/19 16:00 102 04/25/19 12:00 92 04/25/19 12:00 Nasal Cannula 3.0 04/25/19 11:43 97.9 96 26 114/67 (83) 99 Height (Feet): 5 Height (Inches): 9.00 Weight (Pounds): 107 Respiratory/Chest: lungs clear, crackles/rales - GT Cardiovascular: normal rate, regular rhythm, no gallop/murmur Abdomen: soft, non tender, other - GT Extremities: no edema, other - contracted Skin: ulcers - on left hip, left foot Microbiology Date/Time Source Procedure Growth Status 04/23/19 16:30 Blood Blood Culture - Preliminary NO GROWTH AFTER 48 HOURS Resulted 04/23/19 16:15 Blood Blood Culture - Preliminary NO GROWTH AFTER 48 HOURS Resulted 04/23/19 20:25 Nasal Nares MRSA Culture - Final Staphylococcus Aureus - Mrsa Complete 04/23/19 16:50 Nasal Nares - Final Complete 04/23/19 16:50 Nasal Nares - Final Complete 04/23/19 16:45 Urine,Clean Catch Urine Culture - Preliminary Morganella Morg Spp Morganii Gram Positive Cocci Resulted 04/23/19 20:30 Rectum - Final NO CARBAPENEM-RESISTANT ENTEROBACTERI... Complete 04/23/19 20:25 Rectum VRE Culture - Final NO VANCOMYCIN RESISTANT ENTEROCOCCUS ... Complete Laboratory Tests Test 04/25/19 21:55 04/26/19 04:10 Vancomycin Level Trough 3.0 ug/mL (5.0-12.0) L White Blood Count 7.9 K/UL (4.8-10.8) Red Blood Count 3.70 M/UL (4.70-6.10) L Hemoglobin 8.5 G/DL (14.2-18.0) L Hematocrit 27.6 % (42.0-52.0) L Mean Corpuscular Volume 75 FL (80-99) L Mean Corpuscular Hemoglobin 22.9 PG (27.0-31.0) L Mean Corpuscular Hemoglobin Concent 30.7 G/DL (32.0-36.0) L Red Cell Distribution Width 18.4 % (11.6-14.8) H Platelet Count 324 K/UL (150-450) Mean Platelet Volume 6.5 FL (6.5-10.1) Neutrophils (%) (Auto) 84.5 % (45.0-75.0) H Lymphocytes (%) (Auto) 9.6 % (20.0-45.0) L Monocytes (%) (Auto) 5.3 % (1.0-10.0) Eosinophils (%) (Auto) 0.1 % (0.0-3.0) Basophils (%) (Auto) 0.6 % (0.0-2.0) Magnesium Level 1.7 MG/DL (1.8-2.4) L Current Medications Medications (Trade) Dose Ordered Sig/Mckenzie Route PRN Reason Start Time Stop Time Status Last Admin Dose Admin Acetaminophen (Tylenol) 500 mg Q6H PRN ORAL Mild Pain/Temp > 100.5 04/23/19 22:00 05/23/19 21:59 04/25/19 09:13 Ascorbic Acid (Vitamin C) 500 mg DAILY GT 04/24/19 09:00 05/24/19 08:59 04/26/19 09:04 Heparin Sodium (Porcine) (Heparin 5000 units/ml) 5,000 units EVERY 12 HOURS SUBQ 04/24/19 09:00 05/24/19 08:59 04/26/19 09:07 Meropenem 1 gm/ Sodium Chloride 110 ml @ 220 mls/hr Q12HR@0500,1700 IVPB 04/25/19 17:00 04/30/19 16:59 04/26/19 04:01 Metoprolol Tartrate (Lopressor) 12.5 mg Q12HR GT 04/24/19 09:00 05/24/19 08:59 04/26/19 09:05 Pantoprazole (Protonix) 40 mg DAILY ORAL 04/24/19 09:00 05/24/19 08:59 04/26/19 09:04 Sodium Hypochlorite (Dakin's Half Strength) 1 applic Q12HR TOPIC 04/24/19 21:00 05/24/19 10:59 04/26/19 09:05 Vancomycin HCl (Vanco rx to dose) 1 ea DAILY PRN MISC Per rx protocol 04/23/19 22:00 05/23/19 21:59 Vancomycin HCl 1 gm/Dextrose 275 ml @ 184 mls/hr Q24H IVPB 04/25/19 23:00 04/30/19 22:59 04/25/19 23:30 Manan Gomez MD April 26, 2019 11:06"
[2019-04-26 12:00] VITALS: BP 144/84
[2019-04-26] MEDS: Acetaminophen 650mg/20.3ml ORAL PRN (12:11)
--- NOTE | 2019-04-26 12:53 | Surgery Progress Note ---
Surgery Progress Note Subjective Additional Comments no acute events. appreciate podiatry in put attempted to call public guardian but out of town till april 29 leukocytosis resolved Objective Last 24 Hour Vital Signs Date Time Temp Pulse Resp B/P (MAP) Pulse Ox O2 Delivery O2 Flow Rate FiO2 04/26/19 12:00 Nasal Cannula 3.0 04/26/19 12:00 100.4 105 24 144/84 (104) 96 04/26/19 09:05 115 150/89 04/26/19 08:00 99.7 115 24 150/89 (109) 94 04/26/19 08:00 Nasal Cannula 3.0 04/26/19 07:48 117 04/26/19 07:25 96 Nasal Cannula 2.0 28 04/26/19 04:00 Nasal Cannula 3.0 04/26/19 04:00 99.2 112 28 144/78 (100) 97 04/26/19 03:44 112 04/26/19 00:00 Nasal Cannula 3.0 04/26/19 00:00 98.8 104 28 136/78 (97) 97 04/25/19 23:56 104 04/25/19 21:16 95 Nasal Cannula 3.0 32 04/25/19 20:34 100 140/92 04/25/19 20:00 98.1 114 28 131/85 (100) 98 04/25/19 20:00 Nasal Cannula 3.0 04/25/19 19:23 110 04/25/19 16:00 Nasal Cannula 3.0 04/25/19 16:00 98.3 115 24 138/91 (107) 94 04/25/19 16:00 102 I&O Intake and Output 04/25/19 04/26/19 19:00 07:00 Intake Total 1230 ml 1440 ml Output Total 325 ml 500 ml Balance 905 ml 940 ml Intake Free Water 460 ml 450 ml IV Total 110 ml 385 ml Tube Feeding 660 ml 605 ml Output Urine Total 325 ml 500 ml # Voids 3 1 # Bowel Movements 2 Dressing: saturated Wound: other Drains: other Cardiovascular: RSR Respiratory: clear Abdomen: soft, non-tender, present bowel sounds, other, non-distended Extremities: cyanosis Laboratory Tests Test 04/25/19 21:55 04/26/19 04:10 Vancomycin Level Trough 3.0 ug/mL (5.0-12.0) L White Blood Count 7.9 K/UL (4.8-10.8) Red Blood Count 3.70 M/UL (4.70-6.10) L Hemoglobin 8.5 G/DL (14.2-18.0) L Hematocrit 27.6 % (42.0-52.0) L Mean Corpuscular Volume 75 FL (80-99) L Mean Corpuscular Hemoglobin 22.9 PG (27.0-31.0) L Mean Corpuscular Hemoglobin Concent 30.7 G/DL (32.0-36.0) L Red Cell Distribution Width 18.4 % (11.6-14.8) H Platelet Count 324 K/UL (150-450) Mean Platelet Volume 6.5 FL (6.5-10.1) Neutrophils (%) (Auto) 84.5 % (45.0-75.0) H Lymphocytes (%) (Auto) 9.6 % (20.0-45.0) L Monocytes (%) (Auto) 5.3 % (1.0-10.0) Eosinophils (%) (Auto) 0.1 % (0.0-3.0) Basophils (%) (Auto) 0.6 % (0.0-2.0) Magnesium Level 1.7 MG/DL (1.8-2.4) L Plan Problems: (1) Sepsis Assessment & Plan: Lactic acidosis- resolving leukocytosis - resolving renal insufficiency UTI PNA -IV fluids -IV abx -I&O -trend labs -cont with current care will monitor (2) Decubitus ulcer of trochanteric region of left hip Assessment & Plan: Pt presented on admission with multiple pressure injuries.Pt contracted in foetal position. Non-blanchable erythema noted to cleft of R ear. L ear is pink. Full thickness pressure injury with undermining L trochanter with mixed necrosis and loose fibrinous slough. Wound is malodorous. Periwound pink and indurated. (L)4cm x (W)3.5cm, undermining clockwise 12-12 by 2.2cm @3o'clock. An area of non-blanchable erythema without fluctuance or induration noted to medial posterior upper thigh. Two areas that area that area maroon and indurated noted to R hip /R trochanteric.(proximal) (L)2.5cm x (W)3.9cm. R trochanteric(L)3.5cm x (W) 4.5cm.Resolving pressure injury also noted to R trochanter inferiorly but in close proximity to DTPI.[place] epithelial that is dry with surrounding hyperpigmentation noted. Hyperpigmentation from previous pressure injury with surrounding brown pigmentation noted to Sacrum. Full thickness pressure injury noted to idalia R tibia. Base of wound 75% viable with 25% slough.(+) Epibole along edges. No odor noted .Small amt brownish exudate noted.Non-blanchable erythema without fluctuance/induration or elevation in skin temp periwound. Non-blanchable erythema with delineated borders noted to R heel and plantar R heel . Base of wound is fluctuant. (L)5.5cm x (W)6.5cm.Periwound pale but blanchable. Non-blanchable erythema noted to lateral R foot .Base of wound fluctuant.(L) 1.5cm x (W)2cm.Periwound pale but blanchable. Full thickness pressure injury noted L hallux extending into plantar aspect. 50% mixed slough necrosis noted .(+) maceration along edges.Small amt lewis coloured exudate noted .Wound is malodorous.(L)3.5cm x (W)6cm. Full thickness wound lateral L foot extending from base of 5th metatarsal to L heel. Wound is100% necrotic and is malodorous . L foot is swollen and All metatarsals noted to have dusky colour. (L)8cm x (W)18cm . Tx.Plan: Cleanse wounds R tibia and L foot with Dakin's daysi 0.25% .Apply Dakin's moist Gauze.Apply Triad periwound. Cover with ABD pads and wrap with Kerlix Q shift and prn. Apply triad paste to sacrum and medial L thigh. . Cover each site with Optifoam drsg. Change every 3 days and prn. Apply Triad paste to R hip /R trochanter .Cover with Optifoam drsg. Change every 3 days and prn Apply Cavilon to R heel and plantar R heel .Cover with Optifoam drsg. Change every 7 days and prn. Apply Cavilon to R heel daily and prn. Reposition at least every 2hours or as tolerated. Please use only pillows between knees and behind knees for off-loading. Air fluidized mattress. Appreciate podiatry input. Agree with recommendation. extensive tissue loss on LLE. non salvageable. BKA vs AKA recommended Attempted to call public guardian but out of town until april 29. will call again monday. thank you (3) Ulcer of lower extremity excluding decubitus ulcer (4) Lactic acid acidosis (5) Gastroparesis Assessment & Plan: DAILY ESTIMATED NEEDS: Needs based on Wounds, underweight 50.5kg 30-35 kcals/kg 5105-1535 total kcals 1.5-2.0 g protein/kg 76-101 g total protein 25-30 mL/kg 2448-1482 total fluid mLs NUTRITION DIAGNOSIS: * Increased kcal/pro needs R/T wound healing as evidenced by pt admitted w/ multiple advanced wounds including L hip, L foot wound, pending eval. * Swallowing difficulty R/T dysphagia as evidenced by pt GT dep for all nutritional needs. CURRENT TF:Jevity 1.2 @ 55ml/hr x 24 hrs ENTERAL NUTRITION RECOMMENDATIONS: Jevity 1.2 @ 55ml/hr x 24 hrs + Prosource 1pkt daily to provide 1320ml, 1584kcal, 73g + 11g prot, 1065ml free water * Add Prosource 1pkt daily to better meet protein needs * HOB over 30 degrees/ water flush per MD ----- ADDITIONAL RECOMMENDATIONS: * Calibrated bedscale wt for accurate CBW * WOUND HEALING: add Simon 1pkt BID, Vit C 500mg BID + ZnSO4 220mg daily x10 days * Monitor lytes, replete as needed * Monitor tolerance to TF Rios Quiñones April 26, 2019 12:53
[2019-04-26] MEDS ORDERED: Cefepime HCl 2 GM in D5W 55 ML IVPB SCH (13:00)
--- NOTE | 2019-04-26 14:37 | General Progress Note ---
Assessment/Plan Assessment/Plan: Multifactorial sepsis UTI, Gangrene Lt ankle, Sacral decub., pneumonia - IV Abx per IV Volume depletion -IVF Subjective Allergies: Coded Allergies: No Known Allergies (Unverified , 02/25/19) Subjective Confused Objective Last 24 Hour Vital Signs Date Time Temp Pulse Resp B/P (MAP) Pulse Ox O2 Delivery O2 Flow Rate FiO2 04/26/19 12:41 99.5 04/26/19 12:00 Nasal Cannula 3.0 04/26/19 12:00 100.4 105 24 144/84 (104) 96 04/26/19 11:46 111 04/26/19 09:05 115 150/89 04/26/19 08:00 99.7 115 24 150/89 (109) 94 04/26/19 08:00 Nasal Cannula 3.0 04/26/19 07:48 117 04/26/19 07:25 96 Nasal Cannula 2.0 28 04/26/19 04:00 Nasal Cannula 3.0 04/26/19 04:00 99.2 112 28 144/78 (100) 97 04/26/19 03:44 112 04/26/19 00:00 Nasal Cannula 3.0 04/26/19 00:00 98.8 104 28 136/78 (97) 97 04/25/19 23:56 104 04/25/19 21:16 95 Nasal Cannula 3.0 32 04/25/19 20:34 100 140/92 04/25/19 20:00 98.1 114 28 131/85 (100) 98 04/25/19 20:00 Nasal Cannula 3.0 04/25/19 19:23 110 04/25/19 16:00 Nasal Cannula 3.0 04/25/19 16:00 98.3 115 24 138/91 (107) 94 04/25/19 16:00 102 Intake and Output 04/25/19 04/26/19 19:00 07:00 Intake Total 1230 ml 1440 ml Output Total 325 ml 500 ml Balance 905 ml 940 ml Intake Free Water 460 ml 450 ml IV Total 110 ml 385 ml Tube Feeding 660 ml 605 ml Output Urine Total 325 ml 500 ml # Voids 3 1 # Bowel Movements 2 Laboratory Tests 04/25/19 21:55: Vancomycin Level Trough 3.0L 04/26/19 04:10: White Blood Count 7.9, Red Blood Count 3.70L, Hemoglobin 8.5L, Hematocrit 27.6L , Mean Corpuscular Volume 75L, Mean Corpuscular Hemoglobin 22.9L, Mean Corpuscular Hemoglobin Concent 30.7L, Red Cell Distribution Width 18.4H, Platelet Count 324, Mean Platelet Volume 6.5, Neutrophils (%) (Auto) 84.5H, Lymphocytes (%) (Auto) 9.6L, Monocytes (%) (Auto) 5.3, Eosinophils (%) (Auto) 0.1, Basophils (%) (Auto) 0.6, Magnesium Level 1.7L Height (Feet): 5 Height (Inches): 9.00 Weight (Pounds): 107 Objective CV RR Lungs B Ronchi Abd SNT. BS + E Lt. ankle gangrene. Sacral decub Ervin Mario MD April 26, 2019 14:37
[2019-04-26 16:00] VITALS: BP 131/81
--- NOTE | 2019-04-26 18:15 | NUR ---
NURSE NOTES: Pt. transferred to 4E room 403-1 gave bedside report to La GARCIA. Pt. remain stable.
--- NOTE | 2019-04-26 18:44 | NUR ---
NURSE NOTES: Patient received from [facility] on oxygen at 2 liters via nasal cannula. Patient has no reports belongings. Report received from JOSE Guerin for continuity of care.
[2019-04-26] MEDS ORDERED: Acetaminophen 650mg/20.3ml ORAL PRN (19:00)
--- NOTE | 2019-04-26 19:29 | NUR ---
HAND-OFF: Report given to JOSE Kelyl.
[2019-04-26 20:00] VITALS: BP 153/90
[2019-04-26] MEDS: Metoprolol Tartrate 12.5mg TAB GT SCH (21:44)
[2019-04-26] MEDS ORDERED: Vancomycin 1 GM in D5W 275 ML IVPB SCH (23:00)
--- NOTE | 2019-04-26 23:16 | Pulmonology Progress Note ---
Assessment/Plan Assessment/Plan Pulmonary Progress Note HPI: The patient is an 83-year-old male with multiple medical problems, prior history of respiratory failure, prior history of pneumonia with history of COPD. The patient presents from group home facility with worsening shortness of breath, worsening oxygen desaturation. The patient was seen and evaluated in the emergency room and admitted for further care and management. On further evaluation, chest x-ray obtained showing focal airspace disease in the left lung. The patient was seen and evaluated and admitted for IV antibiotics. Care discussed and reviewed. The patient is unable to give much in the way of history that is fairly acute in nature. The patient has multitude medical problems as outlined. The patient has had recent admission to the [facility] center approximately 1 month ago. PAST MEDICAL HISTORY: Sepsis, urinary tract infection, pneumonia, acute on chronic respiratory failure, elevated troponin, cachexia, COPD, dysphagia, G-tube, schizophrenia, and dementia. MEDICATIONS: Reviewed. ALLERGIES: Reviewed. Progress Note date and time: 04/25/19 1307 Assessment/Plan Assessment/Plan IMPRESSION: 1. Acute on chronic respiratory failure. 2. Acute on chronic renal failure. 3. Profound lactic acidemia, possibly due to underlying sepsis. 4. Hyperkalemia. 5. Leukocytosis. 6. Anemia. 7. COPD per history. 8. Pulmonary Infiltrates PLAN care noted respiratory care Continue antibiotics aspiration precautions oxygen therapy monitor as is impression, plan, and exam edited and reviewed in detail care discussed with RN Subjective Allergies: Coded Allergies: No Known Allergies (Unverified , 02/25/19) Subjective care noted and reviewed withdrawn no distress on oxygen Objective Vital Signs Noted Objective GENERAL: An ill-appearing male overall without significant distress. HEENT: Overall negative. NECK: Supple. No adenopathy. LUNGS: The patient without any accessory muscle use. LUNGS: Scattered rhonchi. Moderate air entry. no wheeze CARDIAC: Somewhat tachycardic without murmurs, rubs, gallops. ABDOMEN: Soft, nontender. G-tube in place. EXTREMITIES: Reduced range of motion. NEUROLOGICALLY: Poorly responsive. Microbiology Date/Time Source Procedure Growth Status 04/23/19 16:30 Blood Blood Culture - Preliminary NO GROWTH AFTER 24 HOURS Resulted 04/23/19 16:15 Blood Blood Culture - Preliminary NO GROWTH AFTER 24 HOURS Resulted 04/23/19 16:50 Nasal Nares - Final Complete 04/23/19 16:50 Nasal Nares - Final Complete 04/23/19 16:45 Urine,Clean Catch Urine Culture - Preliminary Gram Negative Bacillus 1 Resulted 04/23/19 20:25 Rectum Received Current Medications Medications (Trade) Dose Ordered Sig/Mckenzie Route PRN Reason Start Time Stop Time Status Last Admin Dose Admin Acetaminophen (Tylenol) 500 mg Q6H PRN ORAL Mild Pain/Temp > 100.5 04/23/19 22:00 05/23/19 21:59 04/25/19 09:13 Ascorbic Acid (Vitamin C) 500 mg DAILY GT 04/24/19 09:00 05/24/19 08:59 04/25/19 09:10 Heparin Sodium (Porcine) (Heparin 5000 units/ml) 5,000 units EVERY 12 HOURS SUBQ 04/24/19 09:00 05/24/19 08:59 04/25/19 09:12 Meropenem 1 gm/ Sodium Chloride 55 ml @ 110 mls/hr Q24H IVPB 04/24/19 18:00 04/29/19 17:59 04/24/19 17:33 Metoprolol Tartrate (Lopressor) 12.5 mg Q12HR GT 04/24/19 09:00 05/24/19 08:59 04/25/19 09:10 Pantoprazole (Protonix) 40 mg DAILY ORAL 04/24/19 09:00 05/24/19 08:59 04/25/19 09:10 Sodium Hypochlorite (Dakin's Half Strength) 1 applic Q12HR TOPIC 04/24/19 21:00 05/24/19 10:59 04/25/19 09:16 Vancomycin HCl (Vanco rx to dose) 1 ea DAILY PRN MISC Per rx protocol 04/23/19 22:00 05/23/19 21:59 Vancomycin HCl 500 mg/Dextrose 110 ml @ 110 mls/hr Q24H IVPB 04/23/19 23:00 04/28/19 22:59 04/24/19 23:01 Subjective ROS Limited/Unobtainable: No Allergies: Coded Allergies: No Known Allergies (Unverified , 02/25/19) Objective Last 24 Hour Vital Signs Date Time Temp Pulse Resp B/P (MAP) Pulse Ox O2 Delivery O2 Flow Rate FiO2 04/26/19 21:44 108 153/90 04/26/19 20:00 98.6 108 22 153/90 (111) 99 04/26/19 16:00 98.1 105 22 131/81 (98) 97 04/26/19 16:00 Nasal Cannula 3.0 04/26/19 15:32 107 04/26/19 12:41 99.5 04/26/19 12:00 Nasal Cannula 3.0 04/26/19 12:00 100.4 105 24 144/84 (104) 96 04/26/19 11:46 111 04/26/19 09:05 115 150/89 04/26/19 08:00 99.7 115 24 150/89 (109) 94 04/26/19 08:00 Nasal Cannula 3.0 04/26/19 07:48 117 04/26/19 07:25 96 Nasal Cannula 2.0 28 04/26/19 04:00 Nasal Cannula 3.0 04/26/19 04:00 99.2 112 28 144/78 (100) 97 04/26/19 03:44 112 04/26/19 00:00 Nasal Cannula 3.0 04/26/19 00:00 98.8 104 28 136/78 (97) 97 04/25/19 23:56 104 Intake and Output 04/25/19 04/26/19 19:00 07:00 Intake Total 1230 ml 1440 ml Output Total 325 ml 500 ml Balance 905 ml 940 ml Intake Free Water 460 ml 450 ml IV Total 110 ml 385 ml Tube Feeding 660 ml 605 ml Output Urine Total 325 ml 500 ml # Voids 3 1 # Bowel Movements 2 Laboratory Tests 04/26/19 04:10: White Blood Count 7.9, Red Blood Count 3.70L, Hemoglobin 8.5L, Hematocrit 27.6L , Mean Corpuscular Volume 75L, Mean Corpuscular Hemoglobin 22.9L, Mean Corpuscular Hemoglobin Concent 30.7L, Red Cell Distribution Width 18.4H, Platelet Count 324, Mean Platelet Volume 6.5, Neutrophils (%) (Auto) 84.5H, Lymphocytes (%) (Auto) 9.6L, Monocytes (%) (Auto) 5.3, Eosinophils (%) (Auto) 0.1, Basophils (%) (Auto) 0.6, Magnesium Level 1.7L Current Medications Medications (Trade) Dose Ordered Sig/Mckenzie Route PRN Reason Start Time Stop Time Status Last Admin Dose Admin Acetaminophen (Tylenol) 500 mg Q6H PRN ORAL Mild Pain/Temp > 100.5 04/26/19 19:00 05/23/19 18:59 Ascorbic Acid (Vitamin C) 500 mg DAILY GT 04/27/19 09:00 05/24/19 08:59 Cefepime HCl 2 gm/ Dextrose 55 ml @ 110 mls/hr DAILY IVPB 04/27/19 09:00 05/03/19 12:59 Heparin Sodium (Porcine) (Heparin 5000 units/ml) 5,000 units EVERY 12 HOURS SUBQ 04/26/19 21:00 05/24/19 08:59 04/26/19 21:32 Lansoprazole (Prevacid) 30 mg DAILY GT 04/27/19 09:00 05/27/19 08:59 Metoprolol Tartrate (Lopressor) 12.5 mg Q12HR GT 04/26/19 21:00 05/24/19 08:59 04/26/19 21:44 Sodium Hypochlorite (Dakin's Half Strength) 1 applic Q12HR TOPIC 04/26/19 21:00 05/24/19 10:59 04/26/19 21:47 Vancomycin HCl (Vanco rx to dose) 1 ea DAILY PRN MISC Per rx protocol 04/27/19 09:00 05/23/19 21:59 Vancomycin HCl 1 gm/Dextrose 275 ml @ 184 mls/hr Q24H IVPB 04/26/19 23:00 04/30/19 22:59 Christopher Rogers MD April 26, 2019 23:16
[2019-04-27] VITALS: BP 143/94
[2019-04-27 04:00] VITALS: BP 137/79
[2019-04-27 06:43] LABS: BASOPHILS % (AUTO) 0.6 % (0.0-2.0); EOSINOPHILS % (AUTO) 0.9 % (0.0-3.0); HEMOGLOBIN 8.6 G/DL (14.2-18.0); LYMPHOCYTES % (AUTO) 10.6 % (20.0-45.0); MEAN CORPUSCULAR VOLUME 75 FL (80-99); MONOCYTES % (AUTO) 8.1 % (1.0-10.0); NEUTROPHILS % (AUTO) 79.8 % (45.0-75.0); PLATELET COUNT 311 K/UL (150-450); RED BLOOD COUNT 3.75 M/UL (4.70-6.10); RED CELL DISTRIBUTION WIDTH 18.2 % (11.6-14.8); WHITE BLOOD COUNT 7.8 K/UL (4.8-10.8)
--- NOTE | 2019-04-27 07:45 | NUR ---
NURSE NOTES: Received patient on bed, asleep. Gtube intact and patent. Condom catheter placed. IV site intact and patent. Dressings dry and intact. Bed in low and locked position, call light in reach. No signs of respiratory distress or pain. ROom board updated, will continue to monitor.
[2019-04-27 08:00] VITALS: BP 150/78
[2019-04-27] MEDS: Metoprolol Tartrate 12.5mg TAB GT SCH ×2 (09:36→20:42)
[2019-04-27] MEDS: Heparin 5000 units/ml inj SUBQ SCH ×2 (09:37→20:43)
[2019-04-27] MEDS: Ascorbic Acid 500mg tab GT SCH (09:46)
[2019-04-27] MEDS: Cefepime HCl 2 GM in D5W 55 ML IVPB SCH (10:31)
--- NOTE | 2019-04-27 10:42 | Pulmonology Progress Note ---
Assessment/Plan Assessment/Plan IMPRESSION: 1. Acute on chronic respiratory failure. 2. Acute on chronic renal failure. 3. Profound lactic acidemia, possibly due to underlying sepsis. 4. Hyperkalemia. 5. Leukocytosis. 6. Anemia. 7. COPD per history. PLAN care noted and reviewed respiratory care antibiotics aspiration precautions oxygen therapy monitor as is follow up imaging maintain meds and feeds impression, plan, and exam edited and reviewed in detail care discussed with RN Subjective ROS Limited/Unobtainable: Yes Allergies: Coded Allergies: No Known Allergies (Unverified , 02/25/19) Subjective care noted and reviewed withdrawn and same no distress on oxygen Objective Last 24 Hour Vital Signs Date Time Temp Pulse Resp B/P (MAP) Pulse Ox O2 Delivery O2 Flow Rate FiO2 04/27/19 09:36 113 150/78 04/27/19 04:00 98.1 109 20 137/79 (98) 96 04/27/19 00:00 98.2 109 20 143/94 (110) 96 04/26/19 21:44 108 153/90 04/26/19 20:00 Nasal Cannula 3.0 04/26/19 20:00 98.6 108 22 153/90 (111) 99 04/26/19 16:00 98.1 105 22 131/81 (98) 97 04/26/19 16:00 Nasal Cannula 3.0 04/26/19 15:32 107 04/26/19 12:41 99.5 04/26/19 12:00 Nasal Cannula 3.0 04/26/19 12:00 100.4 105 24 144/84 (104) 96 04/26/19 11:46 111 Intake and Output 04/26/19 04/27/19 19:00 07:00 Intake Total 850 ml 910 ml Output Total 550 ml 300 ml Balance 300 ml 610 ml Intake Free Water 300 ml 250 ml Tube Feeding 550 ml 660 ml Output Urine Total 550 ml 300 ml Objective GENERAL: An ill-appearing male overall without significant distress. HEENT: Overall negative. NECK: Supple. No adenopathy. LUNGS: The patient without any accessory muscle use. LUNGS: Some rhonchi. Moderate air entry. no wheeze CARDIAC: RRR without murmurs, rubs, gallops. ABDOMEN: Soft, nontender. G-tube in place. EXTREMITIES: Reduced range of motion. NEUROLOGICALLY: Poorly responsive. reviewed and edited Laboratory Tests 04/27/19 05:45: White Blood Count 7.8, Red Blood Count 3.75L, Hemoglobin 8.6L, Hematocrit 28.0L , Mean Corpuscular Volume 75L, Mean Corpuscular Hemoglobin 23.0L, Mean Corpuscular Hemoglobin Concent 30.9L, Red Cell Distribution Width 18.2H, Platelet Count 311, Mean Platelet Volume 5.9L, Neutrophils (%) (Auto) 79.8H, Lymphocytes (%) (Auto) 10.6L, Monocytes (%) (Auto) 8.1, Eosinophils (%) (Auto) 0.9, Basophils (%) (Auto) 0.6 Current Medications Medications (Trade) Dose Ordered Sig/Mckenzie Route PRN Reason Start Time Stop Time Status Last Admin Dose Admin Acetaminophen (Tylenol) 500 mg Q6H PRN ORAL Mild Pain/Temp > 100.5 04/26/19 19:00 05/23/19 18:59 Ascorbic Acid (Vitamin C) 500 mg DAILY GT 04/27/19 09:00 05/24/19 08:59 04/27/19 09:46 Cefepime HCl 2 gm/ Dextrose 55 ml @ 110 mls/hr DAILY IVPB 04/27/19 09:00 05/03/19 12:59 04/27/19 10:31 Heparin Sodium (Porcine) (Heparin 5000 units/ml) 5,000 units EVERY 12 HOURS SUBQ 04/26/19 21:00 05/24/19 08:59 04/27/19 09:37 Lansoprazole (Prevacid) 30 mg DAILY GT 04/27/19 09:00 05/27/19 08:59 04/27/19 09:37 Metoprolol Tartrate (Lopressor) 12.5 mg Q12HR GT 04/26/19 21:00 05/24/19 08:59 04/27/19 09:36 Sodium Hypochlorite (Dakin's Half Strength) 1 applic Q12HR TOPIC 04/26/19 21:00 05/24/19 10:59 04/26/19 21:47 Vancomycin HCl (Vanco rx to dose) 1 ea DAILY PRN MISC Per rx protocol 04/27/19 09:00 05/23/19 21:59 Vancomycin HCl 1 gm/Dextrose 275 ml @ 184 mls/hr Q24H IVPB 04/26/19 23:00 04/30/19 22:59 04/27/19 00:50 Tim Andrade MD Apr 27, 2019 10:42
[2019-04-27 12:00] VITALS: BP 137/74
--- NOTE | 2019-04-27 12:00 | NUR ---
NURSE NOTES: Suctioned patient. patient tolerated well.
--- NOTE | 2019-04-27 13:06 | General Progress Note ---
Assessment/Plan Assessment/Plan: Marasmus - TF Multifactorial sepsis UTI, Gangrene Lt ankle, Sacral decub., pneumonia - IV Abx per IV Volume depletion -IVF Hypomagnesemia - correct Subjective Allergies: Coded Allergies: No Known Allergies (Unverified , 02/25/19) Subjective Confused Objective Last 24 Hour Vital Signs Date Time Temp Pulse Resp B/P (MAP) Pulse Ox O2 Delivery O2 Flow Rate FiO2 04/27/19 09:36 113 150/78 04/27/19 09:00 Nasal Cannula 3.0 04/27/19 08:00 99.4 113 20 150/78 (102) 95 04/27/19 04:00 98.1 109 20 137/79 (98) 96 04/27/19 00:00 98.2 109 20 143/94 (110) 96 04/26/19 21:44 108 153/90 04/26/19 20:00 Nasal Cannula 3.0 04/26/19 20:00 98.6 108 22 153/90 (111) 99 04/26/19 16:00 98.1 105 22 131/81 (98) 97 04/26/19 16:00 Nasal Cannula 3.0 04/26/19 15:32 107 Intake and Output 04/26/19 04/27/19 19:00 07:00 Intake Total 850 ml 965 ml Output Total 550 ml 600 ml Balance 300 ml 365 ml Intake Free Water 300 ml 250 ml Tube Feeding 550 ml 715 ml Output Urine Total 550 ml 600 ml Laboratory Tests 04/27/19 05:45: White Blood Count 7.8, Red Blood Count 3.75L, Hemoglobin 8.6L, Hematocrit 28.0L , Mean Corpuscular Volume 75L, Mean Corpuscular Hemoglobin 23.0L, Mean Corpuscular Hemoglobin Concent 30.9L, Red Cell Distribution Width 18.2H, Platelet Count 311, Mean Platelet Volume 5.9L, Neutrophils (%) (Auto) 79.8H, Lymphocytes (%) (Auto) 10.6L, Monocytes (%) (Auto) 8.1, Eosinophils (%) (Auto) 0.9, Basophils (%) (Auto) 0.6 Height (Feet): 5 Height (Inches): 9.00 Weight (Pounds): 107 Objective [place] CV RR Lungs B Ronchi Abd SNT. BS + E Lt. ankle gangrene. Sacral decub Ervin Mario MD Apr 27, 2019 13:06
--- NOTE | 2019-04-27 13:53 | Surgery Progress Note ---
Surgery Progress Note Subjective Additional Comments no acute events labs stable dressings being changed Objective Last 24 Hour Vital Signs Date Time Temp Pulse Resp B/P (MAP) Pulse Ox O2 Delivery O2 Flow Rate FiO2 04/27/19 09:36 113 150/78 04/27/19 09:00 Nasal Cannula 3.0 04/27/19 08:00 99.4 113 20 150/78 (102) 95 04/27/19 04:00 98.1 109 20 137/79 (98) 96 04/27/19 00:00 98.2 109 20 143/94 (110) 96 04/26/19 21:44 108 153/90 04/26/19 20:00 Nasal Cannula 3.0 04/26/19 20:00 98.6 108 22 153/90 (111) 99 04/26/19 16:00 98.1 105 22 131/81 (98) 97 04/26/19 16:00 Nasal Cannula 3.0 04/26/19 15:32 107 I&O Intake and Output 04/26/19 04/27/19 19:00 07:00 Intake Total 850 ml 965 ml Output Total 550 ml 600 ml Balance 300 ml 365 ml Intake Free Water 300 ml 250 ml Tube Feeding 550 ml 715 ml Output Urine Total 550 ml 600 ml Laboratory Tests Test 04/27/19 05:45 White Blood Count 7.8 K/UL (4.8-10.8) Red Blood Count 3.75 M/UL (4.70-6.10) L Hemoglobin 8.6 G/DL (14.2-18.0) L Hematocrit 28.0 % (42.0-52.0) L Mean Corpuscular Volume 75 FL (80-99) L Mean Corpuscular Hemoglobin 23.0 PG (27.0-31.0) L Mean Corpuscular Hemoglobin Concent 30.9 G/DL (32.0-36.0) L Red Cell Distribution Width 18.2 % (11.6-14.8) H Platelet Count 311 K/UL (150-450) Mean Platelet Volume 5.9 FL (6.5-10.1) L Neutrophils (%) (Auto) 79.8 % (45.0-75.0) H Lymphocytes (%) (Auto) 10.6 % (20.0-45.0) L Monocytes (%) (Auto) 8.1 % (1.0-10.0) Eosinophils (%) (Auto) 0.9 % (0.0-3.0) Basophils (%) (Auto) 0.6 % (0.0-2.0) Plan Problems: (1) Sepsis Assessment & Plan: Lactic acidosis- resolving leukocytosis - resolving renal insufficiency UTI PNA -IV fluids -IV abx -I&O -trend labs -cont with current care will monitor (2) Decubitus ulcer of trochanteric region of left hip Assessment & Plan: Pt presented on admission with multiple pressure injuries.Pt contracted in foetal position. Non-blanchable erythema noted to cleft of R ear. L ear is pink. Full thickness pressure injury with undermining L trochanter with mixed necrosis and loose fibrinous slough. Wound is malodorous. Periwound pink and indurated. (L)4cm x (W)3.5cm, undermining clockwise 12-12 by 2.2cm @3o'clock. An area of non-blanchable erythema without fluctuance or induration noted to medial posterior upper thigh. Two areas that area that area maroon and indurated noted to R hip /R trochanteric.(proximal) (L)2.5cm x (W)3.9cm. R trochanteric(L)3.5cm x (W) 4.5cm.Resolving pressure injury also noted to R trochanter inferiorly but in close proximity to DTPI.Finklea epithelial that is dry with surrounding hyperpigmentation noted. Hyperpigmentation from previous pressure injury with surrounding brown pigmentation noted to Sacrum. Full thickness pressure injury noted to idalia R tibia. Base of wound 75% viable with 25% slough.(+) Epibole along edges. No odor noted .Small amt brownish exudate noted.Non-blanchable erythema without fluctuance/induration or elevation in skin temp periwound. Non-blanchable erythema with delineated borders noted to R heel and plantar R heel . Base of wound is fluctuant. (L)5.5cm x (W)6.5cm.Periwound pale but blanchable. Non-blanchable erythema noted to lateral R foot .Base of wound fluctuant.(L) 1.5cm x (W)2cm.Periwound pale but blanchable. Full thickness pressure injury noted L hallux extending into plantar aspect. 50% mixed slough necrosis noted .(+) maceration along edges.Small amt lewis coloured exudate noted .Wound is malodorous.(L)3.5cm x (W)6cm. Full thickness wound lateral L foot extending from base of 5th metatarsal to L heel. Wound is100% necrotic and is malodorous . L foot is swollen and All metatarsals noted to have dusky colour. (L)8cm x (W)18cm . Tx.Plan: Cleanse wounds R tibia and L foot with Dakin's daysi 0.25% .Apply Dakin's moist Gauze.Apply Triad periwound. Cover with ABD pads and wrap with Kerlix Q shift and prn. Apply triad paste to sacrum and medial L thigh. . Cover each site with Optifoam drsg. Change every 3 days and prn. Apply Triad paste to R hip /R trochanter .Cover with Optifoam drsg. Change every 3 days and prn Apply Cavilon to R heel and plantar R heel .Cover with Optifoam drsg. Change every 7 days and prn. Apply Cavilon to R heel daily and prn. Reposition at least every 2hours or as tolerated. Please use only pillows between knees and behind knees for off-loading. Air fluidized mattress. Appreciate podiatry input. Agree with recommendation. extensive tissue loss on LLE. non salvageable. BKA vs AKA recommended Attempted to call public guardian but out of town until april 29. will call again monday. thank you (3) Ulcer of lower extremity excluding decubitus ulcer (4) Lactic acid acidosis (5) Gastroparesis Assessment & Plan: DAILY ESTIMATED NEEDS: Needs based on Wounds, underweight 50.5kg 30-35 kcals/kg 3649-0397 total kcals 1.5-2.0 g protein/kg 76-101 g total protein 25-30 mL/kg 7088-1633 total fluid mLs NUTRITION DIAGNOSIS: * Increased kcal/pro needs R/T wound healing as evidenced by pt admitted w/ multiple advanced wounds including L hip, L foot wound, pending eval. * Swallowing difficulty R/T dysphagia as evidenced by pt GT dep for all nutritional needs. CURRENT TF:Jevity 1.2 @ 55ml/hr x 24 hrs ENTERAL NUTRITION RECOMMENDATIONS: Jevity 1.2 @ 55ml/hr x 24 hrs + Prosource 1pkt daily to provide 1320ml, 1584kcal, 73g + 11g prot, 1065ml free water * Add Prosource 1pkt daily to better meet protein needs * HOB over 30 degrees/ water flush per MD ----- ADDITIONAL RECOMMENDATIONS: * Calibrated bedscale wt for accurate CBW * WOUND HEALING: add Simon 1pkt BID, Vit C 500mg BID + ZnSO4 220mg daily x10 days * Monitor lytes, replete as needed * Monitor tolerance to TF Rios Quiñones Apr 27, 2019 13:53
--- NOTE | 2019-04-27 14:00 | NUR ---
NURSE NOTES: Suctioned patient. Patient tolerated well.
[2019-04-27] MEDS: Dakin's 0.25% (Half Strength) 16oz TOPIC SCH ×2 (14:01→20:42)
[2019-04-27] MEDS ORDERED: D5W 275ml ONE (15:15)
[2019-04-27] MEDS ORDERED: Tubing IV Secondary IV ONE (15:15)
[2019-04-27] MEDS ORDERED: NS 275ml ONE (15:15)
[2019-04-27 16:00] VITALS: BP 145/85
--- NOTE | 2019-04-27 16:15 | NUR ---
NURSE NOTES: Suctioned patient. Patient tolerated well. MD Mario made aware of patient being tachycardic. New orders were given. Charge nurser made aware.
[2019-04-27] MEDS ORDERED: Albuterol/Ipratropium 3ml neb HHN PRN (17:15)
[2019-04-27] MEDS ORDERED: Albuterol/Ipratropium 3ml neb HHN SCH (19:00)
--- NOTE | 2019-04-27 19:10 | NUR ---
NURSE NOTES: Pt received in bed, nasal cannuli 2L, Gtube feeding running, IV Mag running (last bag), head of bed elevated, wound dressings changed, will continue to monitor.
--- NOTE | 2019-04-27 19:17 | NUR ---
HAND-OFF: Report given to RN Luis.
[2019-04-27 20:00] VITALS: BP 113/77
[2019-04-28] VITALS: BP 117/76
[2019-04-28] MEDS: Vancomycin 1.5gm Premix 275 ML IVPB SCH ×2 (00:28→23:35)
--- NOTE | 2019-04-28 01:21 | NUR ---
NURSE NOTES: Left voicemail for Dr. Andrdae regarding arterial blood gas results.
[2019-04-28 04:00] VITALS: BP 121/79
[2019-04-28 06:51] LABS: BASOPHILS % (AUTO) 0.6 % (0.0-2.0); EOSINOPHILS % (AUTO) 1.4 % (0.0-3.0); HEMATOCRIT 28.5 % (42.0-52.0); HEMOGLOBIN 8.9 G/DL (14.2-18.0); LYMPHOCYTES % (AUTO) 14.6 % (20.0-45.0); MEAN CORPUSCULAR VOLUME 74 FL (80-99); MONOCYTES % (AUTO) 10.3 % (1.0-10.0); NEUTROPHILS % (AUTO) 73.1 % (45.0-75.0); PLATELET COUNT 348 K/UL (150-450); RED BLOOD COUNT 3.87 M/UL (4.70-6.10); RED CELL DISTRIBUTION WIDTH 18.4 % (11.6-14.8); WHITE BLOOD COUNT 7.3 K/UL (4.8-10.8)
[2019-04-28 07:09] LABS: ANION GAP 8 mmol/L (5-15); BLOOD UREA NITROGEN 23 mg/dL (7-18); CALCIUM 7.9 MG/DL (8.5-10.1); CARBON DIOXIDE 27 MMOL/L (21-32); CHLORIDE 108 MMOL/L (98-107); CREATININE 0.7 MG/DL (0.55-1.30); POTASSIUM 3.8 MMOL/L (3.5-5.1); SODIUM 143 MMOL/L (136-145)
--- NOTE | 2019-04-28 07:49 | NUR ---
HAND-OFF: Report given to JOSE Littlejohn.
[2019-04-28 08:00] VITALS: BP 126/81
--- NOTE | 2019-04-28 08:00 | NUR ---
NURSE NOTES: Pt received in bed, on nasal cannula 2L O2, has G-tube feeding receiving Jevity 1.2 running at 55 cc/hr, no residual. Pt has BLE contracted, non-verbal, no sign of respiratory distress notes. Head of bed elevated, siderails up, bed locked at the lowest position possible. Wound dressings at back, sacral, right hip and left foot changed, along with G-tube insertion dressing, with asseptic technique. Will continue to monitor pt and follow up with the plan of care.
--- NOTE | 2019-04-28 09:19 | Pulmonology Progress Note ---
Assessment/Plan Assessment/Plan IMPRESSION: 1. Acute on chronic respiratory failure. 2. Acute on chronic renal failure. 3. Profound lactic acidemia, possibly due to underlying sepsis. 4. Hyperkalemia. 5. Leukocytosis. 6. Anemia. 7. COPD per history. PLAN neb therapy cxr lasix suction care noted and reviewed respiratory care antibiotics aspiration precautions oxygen therapy monitor as is follow up imaging ordered maintain meds and feeds impression, plan, and exam edited and reviewed in detail care discussed with RN Subjective ROS Limited/Unobtainable: Yes Allergies: Coded Allergies: No Known Allergies (Unverified , 02/25/19) Subjective care noted and reviewed withdrawn and same some congestion started on neb therapy Objective Last 24 Hour Vital Signs Date Time Temp Pulse Resp B/P (MAP) Pulse Ox O2 Delivery O2 Flow Rate FiO2 04/28/19 04:00 99.0 107 22 121/79 (93) 94 04/28/19 00:00 98.5 108 19 117/76 (90) 95 04/27/19 21:00 Nasal Cannula 3.0 04/27/19 20:42 108 113/77 04/27/19 20:00 98.4 108 19 113/77 (89) 97 04/27/19 19:38 97 Room Air 04/27/19 16:00 97.1 116 20 145/85 (105) 98 04/27/19 12:00 97.7 112 20 137/74 (95) 94 04/27/19 09:36 113 150/78 Intake and Output 04/27/19 04/28/19 18:59 06:59 Intake Total 1515 ml 1105 ml Output Total 3800 ml 1300 ml Balance -2285 ml -195 ml Intake Free Water 500 ml 400 ml IV Total 355 ml 100 ml Tube Feeding 660 ml 605 ml Output Urine Total 3800 ml 1300 ml # Voids 3 Objective GENERAL: An ill-appearing male overall without significant distress. HEENT: Overall negative. NECK: Supple. No adenopathy. LUNGS: The patient without any accessory muscle use. LUNGS: scattered rhonchi. Moderate air entry. no wheeze CARDIAC: RRR without murmurs, rubs, gallops. ABDOMEN: Soft, nontender. G-tube in place. EXTREMITIES: Reduced range of motion. NEUROLOGICALLY: Poorly responsive. reviewed and edited Laboratory Tests 04/27/19 19:02: Arterial Blood pH 7.515H, Arterial Blood Partial Pressure CO2 30.7L, Arterial Blood Partial Pressure O2 77.6, Arterial Blood HCO3 24.2, Arterial Blood Oxygen Saturation 94.8L, Arterial Blood Base Excess 1.7, Rhett Test Positive 04/27/19 21:50: Vancomycin Level Trough 7.1 04/28/19 05:55: White Blood Count 7.3, Red Blood Count 3.87L, Hemoglobin 8.9L, Hematocrit 28.5L , Mean Corpuscular Volume 74L, Mean Corpuscular Hemoglobin 22.9L, Mean Corpuscular Hemoglobin Concent 31.1L, Red Cell Distribution Width 18.4H, Platelet Count 348, Mean Platelet Volume 6.9, Neutrophils (%) (Auto) 73.1, Lymphocytes (%) (Auto) 14.6L, Monocytes (%) (Auto) 10.3H, Eosinophils (%) (Auto ) 1.4, Basophils (%) (Auto) 0.6, Sodium Level 143, Potassium Level 3.8, Chloride Level 108H, Carbon Dioxide Level 27, Anion Gap 8, Blood Urea Nitrogen 23H, Creatinine 0.7, Estimat Glomerular Filtration Rate , Glucose Level 140H, Calcium Level 7.9L Current Medications Medications (Trade) Dose Ordered Sig/Mckenzie Route PRN Reason Start Time Stop Time Status Last Admin Dose Admin Acetaminophen (Tylenol) 500 mg Q6H PRN ORAL Mild Pain/Temp > 100.5 04/26/19 19:00 05/23/19 18:59 Albuterol/ Ipratropium (Albuterol/ Ipratropium) 3 ml Q4H PRN HHN Shortness of Breath 04/27/19 17:15 05/02/19 17:14 Ascorbic Acid (Vitamin C) 500 mg DAILY GT 04/27/19 09:00 05/24/19 08:59 04/27/19 09:46 Cefepime HCl 2 gm/ Dextrose 55 ml @ 110 mls/hr DAILY IVPB 04/27/19 09:00 05/03/19 12:59 04/27/19 10:31 Heparin Sodium (Porcine) (Heparin 5000 units/ml) 5,000 units EVERY 12 HOURS SUBQ 04/26/19 21:00 05/24/19 08:59 04/27/19 20:43 Lansoprazole (Prevacid) 30 mg DAILY GT 04/27/19 09:00 05/27/19 08:59 04/27/19 09:37 Metoprolol Tartrate (Lopressor) 12.5 mg Q12HR GT 04/26/19 21:00 05/24/19 08:59 04/27/19 20:42 Sodium Hypochlorite (Dakin's Half Strength) 1 applic Q12HR TOPIC 04/26/19 21:00 05/24/19 10:59 04/27/19 20:42 Vancomycin HCl (Vanco rx to dose) 1 ea DAILY PRN MISC Per rx protocol 04/27/19 09:00 05/23/19 21:59 Vancomycin HCl/ Dextrose 275 ml @ 184 mls/hr Q24H IVPB 04/27/19 23:00 05/02/19 22:59 04/28/19 00:28 Tim Andrade MD Apr 28, 2019 09:19
--- NOTE | 2019-04-28 09:29 | Infectious Diseases Prog Note ---
Assessment/Plan Assessment/Plan IMPRESSION: Sepsis Lactic acidosis. Pneumonia, Urinary tract infection, Infected pressure ulcer, likely osteomyelitis in the left foot and left hip. Chronic obstructive pulmonary disease, advanced Dementia, Hypertension, History of benign prostatic hypertrophy. MRSA carrier RECOMMENDATION: We will continue with Cefepime & wound care We will follow up the cultures Subjective ROS Limited/Unobtainable: Yes Constitutional: Denies: fever Respiratory: Reports: productive cough Allergies: Coded Allergies: No Known Allergies (Unverified , 02/25/19) Objective Vital Signs Last 24 Hour Vital Signs Date Time Temp Pulse Resp B/P (MAP) Pulse Ox O2 Delivery O2 Flow Rate FiO2 04/28/19 04:00 99.0 107 22 121/79 (93) 94 04/28/19 00:00 98.5 108 19 117/76 (90) 95 04/27/19 21:00 Nasal Cannula 3.0 04/27/19 20:42 108 113/77 04/27/19 20:00 98.4 108 19 113/77 (89) 97 04/27/19 19:38 97 Room Air 04/27/19 16:00 97.1 116 20 145/85 (105) 98 04/27/19 12:00 97.7 112 20 137/74 (95) 94 04/27/19 09:36 113 150/78 Height (Feet): 5 Height (Inches): 9.00 Weight (Pounds): 107 General Appearance: cachetic HEENT: mucous membranes moist Respiratory/Chest: lungs clear Cardiovascular: tachycardia Abdomen: soft, non tender, other - GT feeding Extremities: other - Contracted knees Skin: ulcers, other - Left foot & hip Neurologic/Psychiatric: aphasia Laboratory Tests Test 04/27/19 19:02 04/27/19 21:50 04/28/19 05:55 Arterial Blood pH 7.515 (7.350-7.450) Arterial Blood Partial Pressure CO2 30.7 mmHg (35.0-45.0) L Arterial Blood Partial Pressure O2 77.6 mmHg (75.0-100.0) Arterial Blood HCO3 24.2 mmol/L (22.0-26.0) Arterial Blood Oxygen Saturation 94.8 % (95-100) L Arterial Blood Base Excess 1.7 (-2-2) Rhett Test Positive Vancomycin Level Trough 7.1 ug/mL (5.0-12.0) White Blood Count 7.3 K/UL (4.8-10.8) Red Blood Count 3.87 M/UL (4.70-6.10) L Hemoglobin 8.9 G/DL (14.2-18.0) L Hematocrit 28.5 % (42.0-52.0) L Mean Corpuscular Volume 74 FL (80-99) L Mean Corpuscular Hemoglobin 22.9 PG (27.0-31.0) L Mean Corpuscular Hemoglobin Concent 31.1 G/DL (32.0-36.0) L Red Cell Distribution Width 18.4 % (11.6-14.8) H Platelet Count 348 K/UL (150-450) Mean Platelet Volume 6.9 FL (6.5-10.1) Neutrophils (%) (Auto) 73.1 % (45.0-75.0) Lymphocytes (%) (Auto) 14.6 % (20.0-45.0) L Monocytes (%) (Auto) 10.3 % (1.0-10.0) H Eosinophils (%) (Auto) 1.4 % (0.0-3.0) Basophils (%) (Auto) 0.6 % (0.0-2.0) Sodium Level 143 MMOL/L (136-145) Potassium Level 3.8 MMOL/L (3.5-5.1) Chloride Level 108 MMOL/L (98-107) H Carbon Dioxide Level 27 MMOL/L (21-32) Anion Gap 8 mmol/L (5-15) Blood Urea Nitrogen 23 mg/dL (7-18) H Creatinine 0.7 MG/DL (0.55-1.30) Estimat Glomerular Filtration Rate mL/min (>60) Glucose Level 140 MG/DL (74-106) H Calcium Level 7.9 MG/DL (8.5-10.1) L Current Medications Medications (Trade) Dose Ordered Sig/Mckenzie Route PRN Reason Start Time Stop Time Status Last Admin Dose Admin Acetaminophen (Tylenol) 500 mg Q6H PRN ORAL Mild Pain/Temp > 100.5 04/26/19 19:00 05/23/19 18:59 Albuterol/ Ipratropium (Albuterol/ Ipratropium) 3 ml Q4H PRN HHN Shortness of Breath 04/27/19 17:15 05/02/19 17:14 Ascorbic Acid (Vitamin C) 500 mg DAILY GT 04/27/19 09:00 05/24/19 08:59 04/27/19 09:46 Cefepime HCl 2 gm/ Dextrose 55 ml @ 110 mls/hr DAILY IVPB 04/27/19 09:00 05/03/19 12:59 04/27/19 10:31 Heparin Sodium (Porcine) (Heparin 5000 units/ml) 5,000 units EVERY 12 HOURS SUBQ 04/26/19 21:00 05/24/19 08:59 04/27/19 20:43 Lansoprazole (Prevacid) 30 mg DAILY GT 04/27/19 09:00 05/27/19 08:59 04/27/19 09:37 Metoprolol Tartrate (Lopressor) 12.5 mg Q12HR GT 04/26/19 21:00 05/24/19 08:59 04/27/19 20:42 Sodium Hypochlorite (Dakin's Half Strength) 1 applic Q12HR TOPIC 04/26/19 21:00 05/24/19 10:59 04/27/19 20:42 Vancomycin HCl (Vanco rx to dose) 1 ea DAILY PRN MISC Per rx protocol 04/27/19 09:00 05/23/19 21:59 Vancomycin HCl/ Dextrose 275 ml @ 184 mls/hr Q24H IVPB 04/27/19 23:00 05/02/19 22:59 04/28/19 00:28 Lev Pardo MD Apr 28, 2019 09:29
[2019-04-28] MEDS: Dakin's 0.25% (Half Strength) 16oz TOPIC SCH ×2 (09:37→20:57)
[2019-04-28] MEDS: Cefepime HCl 2 GM in D5W 55 ML IVPB SCH (09:38)
[2019-04-28] MEDS: Ascorbic Acid 500mg tab GT SCH (09:38)
[2019-04-28] MEDS: Metoprolol Tartrate 12.5mg TAB GT SCH ×2 (09:39→20:57)
[2019-04-28] MEDS: Heparin 5000 units/ml inj SUBQ SCH ×2 (09:41→20:55)
[2019-04-28 12:00] VITALS: BP 143/119
--- NOTE | 2019-04-28 14:12 | General Progress Note ---
Assessment/Plan Assessment/Plan: Marasmus - TF Multifactorial sepsis UTI, Gangrene Lt ankle, Sacral decub., pneumonia - IV Abx per IV Volume depletion -IVF Subjective Allergies: Coded Allergies: No Known Allergies (Unverified , 02/25/19) Subjective Confused Objective Last 24 Hour Vital Signs Date Time Temp Pulse Resp B/P (MAP) Pulse Ox O2 Delivery O2 Flow Rate FiO2 04/28/19 09:39 112 126/81 04/28/19 08:09 110 20 99 Nasal Cannula 2.0 28 04/28/19 08:08 96 Nasal Cannula 2.0 28 04/28/19 08:00 98.7 112 20 126/81 (96) 99 04/28/19 04:00 99.0 107 22 121/79 (93) 94 04/28/19 00:00 98.5 108 19 117/76 (90) 95 04/27/19 21:00 Nasal Cannula 3.0 04/27/19 20:42 108 113/77 04/27/19 20:00 98.4 108 19 113/77 (89) 97 04/27/19 19:38 97 Room Air 04/27/19 16:00 97.1 116 20 145/85 (105) 98 Intake and Output 04/27/19 04/28/19 19:00 07:00 Intake Total 1460 ml 1105 ml Output Total 3500 ml 1300 ml Balance -2040 ml -195 ml Intake Free Water 500 ml 400 ml IV Total 355 ml 100 ml Tube Feeding 605 ml 605 ml Output Urine Total 3500 ml 1300 ml # Voids 3 Laboratory Tests 04/27/19 19:02: Arterial Blood pH 7.515H, Arterial Blood Partial Pressure CO2 30.7L, Arterial Blood Partial Pressure O2 77.6, Arterial Blood HCO3 24.2, Arterial Blood Oxygen Saturation 94.8L, Arterial Blood Base Excess 1.7, Rhett Test Positive 04/27/19 21:50: Vancomycin Level Trough 7.1 04/28/19 05:55: White Blood Count 7.3, Red Blood Count 3.87L, Hemoglobin 8.9L, Hematocrit 28.5L , Mean Corpuscular Volume 74L, Mean Corpuscular Hemoglobin 22.9L, Mean Corpuscular Hemoglobin Concent 31.1L, Red Cell Distribution Width 18.4H, Platelet Count 348, Mean Platelet Volume 6.9, Neutrophils (%) (Auto) 73.1, Lymphocytes (%) (Auto) 14.6L, Monocytes (%) (Auto) 10.3H, Eosinophils (%) (Auto ) 1.4, Basophils (%) (Auto) 0.6, Sodium Level 143, Potassium Level 3.8, Chloride Level 108H, Carbon Dioxide Level 27, Anion Gap 8, Blood Urea Nitrogen 23H, Creatinine 0.7, Estimat Glomerular Filtration Rate , Glucose Level 140H, Calcium Level 7.9L Height (Feet): 5 Height (Inches): 9.00 Weight (Pounds): 107 Objective [place] CV RR Lungs B Ronchi Abd SNT. BS + E Lt. ankle gangrene. Sacral Ervin Booker MD Apr 28, 2019 14:12
[2019-04-28 16:00] VITALS: BP 134/81
--- NOTE | 2019-04-28 19:22 | NUR ---
NURSE NOTES: Pt received in bed with head of bed elevated, IV in place, gtube feeding running, dressings changed, be in lowest position, call light within reach, will continue to monitor.
--- NOTE | 2019-04-28 19:34 | NUR ---
HAND-OFF: Report given to JOSE Smith.
[2019-04-28 20:00] VITALS: BP 128/78
[2019-04-29] VITALS: BP 126/79
[2019-04-29 04:00] VITALS: BP 140/78
[2019-04-29 07:05] LABS: ANION GAP 4 mmol/L (5-15); BLOOD UREA NITROGEN 20 mg/dL (7-18); CALCIUM 7.9 MG/DL (8.5-10.1); CARBON DIOXIDE 29 MMOL/L (21-32); CHLORIDE 109 MMOL/L (98-107); CREATININE 0.7 MG/DL (0.55-1.30); POTASSIUM 4.1 MMOL/L (3.5-5.1); SODIUM 142 MMOL/L (136-145)
[2019-04-29 07:14] LABS: BASOPHILS % (AUTO) 0.8 % (0.0-2.0); EOSINOPHILS % (AUTO) 1.8 % (0.0-3.0); HEMATOCRIT 28.8 % (42.0-52.0); HEMOGLOBIN 8.9 G/DL (14.2-18.0); LYMPHOCYTES % (AUTO) 16.4 % (20.0-45.0); MEAN CORPUSCULAR VOLUME 74 FL (80-99); MONOCYTES % (AUTO) 9.1 % (1.0-10.0); PLATELET COUNT 324 K/UL (150-450); RED BLOOD COUNT 3.86 M/UL (4.70-6.10); RED CELL DISTRIBUTION WIDTH 18.5 % (11.6-14.8)
--- NOTE | 2019-04-29 07:28 | NUR ---
HAND-OFF: Report given to JOSE Littlejohn.
[2019-04-29 08:00] VITALS: BP 138/85
--- NOTE | 2019-04-29 08:13 | Pulmonology Progress Note ---
Assessment/Plan Assessment/Plan IMPRESSION: 1. Acute on chronic respiratory failure. 2. Acute on chronic renal failure. 3. Profound lactic acidemia, possibly due to underlying sepsis. 4. Hyperkalemia. 5. Leukocytosis. 6. Anemia. 7. COPD per history. PLAN neb therapy cxr noted lasix as per renal suction as needed care noted and reviewed respiratory care antibiotics aspiration precautions oxygen therapy monitor as is follow up imaging ordered- await results maintain meds and feeds impression, plan, and exam edited and reviewed in detail care discussed with RN Subjective ROS Limited/Unobtainable: Yes Allergies: Coded Allergies: No Known Allergies (Unverified , 02/25/19) Subjective care noted and reviewed altered some congestion started on neb therapy Objective Last 24 Hour Vital Signs Date Time Temp Pulse Resp B/P (MAP) Pulse Ox O2 Delivery O2 Flow Rate FiO2 04/29/19 04:00 99.3 106 22 140/78 (98) 97 04/29/19 00:00 99.5 104 20 126/79 (95) 95 04/28/19 21:00 Nasal Cannula 3.0 04/28/19 20:57 115 128/78 04/28/19 20:00 98.3 115 19 128/78 (95) 96 04/28/19 19:32 94 Nasal Cannula 2.0 28 04/28/19 19:32 105 20 94 Nasal Cannula 4.0 36 04/28/19 16:00 98.0 110 20 134/81 (98) 93 04/28/19 12:00 97.2 100 20 143/119 (127) 93 04/28/19 09:39 112 126/81 04/28/19 09:00 Nasal Cannula 3.0 Intake and Output 04/28/19 04/29/19 19:00 07:00 Intake Total 1090 ml 1373 ml Output Total 6300 ml 950 ml Balance -5210 ml 423 ml Intake Free Water 430 ml 400 ml IV Total 55 ml 368 ml Tube Feeding 605 ml 605 ml Output Urine Total 6300 ml 950 ml # Bowel Movements 1 1 Objective GENERAL: An ill-appearing male overall without significant distress. HEENT: Overall negative. NECK: Supple. No adenopathy. LUNGS: The patient without any accessory muscle use. LUNGS: scattered rhonchi. Moderate air entry. no wheeze CARDIAC: RRR without murmurs, rubs, gallops. ABDOMEN: Soft, nontender. G-tube in place. EXTREMITIES: Reduced range of motion. NEUROLOGICALLY: Poorly responsive. reviewed and edited Laboratory Tests 04/29/19 05:35: White Blood Count 7.0, Red Blood Count 3.86L, Hemoglobin 8.9L, Hematocrit 28.8L , Mean Corpuscular Volume 74L, Mean Corpuscular Hemoglobin 23.1L, Mean Corpuscular Hemoglobin Concent 31.0L, Red Cell Distribution Width 18.5H, Platelet Count 324, Mean Platelet Volume 6.7, Neutrophils (%) (Auto) 72.0, Lymphocytes (%) (Auto) 16.4L, Monocytes (%) (Auto) 9.1, Eosinophils (%) (Auto) 1.8, Basophils (%) (Auto) 0.8, Sodium Level 142, Potassium Level 4.1, Chloride Level 109H, Carbon Dioxide Level 29, Anion Gap 4L, Blood Urea Nitrogen 20H, Creatinine 0.7, Estimat Glomerular Filtration Rate , Glucose Level 118H, Calcium Level 7.9L, Magnesium Level 2.0 Current Medications Medications (Trade) Dose Ordered Sig/Mckenzie Route PRN Reason Start Time Stop Time Status Last Admin Dose Admin Acetaminophen (Tylenol) 500 mg Q6H PRN ORAL Mild Pain/Temp > 100.5 04/26/19 19:00 05/23/19 18:59 Albuterol/ Ipratropium (Albuterol/ Ipratropium) 3 ml Q4H PRN HHN Shortness of Breath 04/27/19 17:15 05/02/19 17:14 Ascorbic Acid (Vitamin C) 500 mg DAILY GT 04/27/19 09:00 05/24/19 08:59 04/28/19 09:38 Cefepime HCl 2 gm/ Dextrose 55 ml @ 110 mls/hr DAILY IVPB 04/27/19 09:00 05/03/19 12:59 04/28/19 09:38 Heparin Sodium (Porcine) (Heparin 5000 units/ml) 5,000 units EVERY 12 HOURS SUBQ 04/26/19 21:00 05/24/19 08:59 04/28/19 20:55 Lansoprazole (Prevacid) 30 mg DAILY GT 04/27/19 09:00 05/27/19 08:59 04/28/19 09:38 Metoprolol Tartrate (Lopressor) 12.5 mg Q12HR GT 04/26/19 21:00 05/24/19 08:59 04/28/19 20:57 Sodium Hypochlorite (Dakin's Half Strength) 1 applic Q12HR TOPIC 04/26/19 21:00 05/24/19 10:59 04/28/19 20:57 Vancomycin HCl (Vanco rx to dose) 1 ea DAILY PRN MISC Per rx protocol 04/27/19 09:00 05/23/19 21:59 Vancomycin HCl/ Dextrose 275 ml @ 184 mls/hr Q24H IVPB 04/27/19 23:00 05/02/19 22:59 04/28/19 23:35 Tim Andrade MD Apr 29, 2019 08:13
[2019-04-29] MEDS: Metoprolol Tartrate 12.5mg TAB GT SCH (09:29)
[2019-04-29] MEDS: Ascorbic Acid 500mg tab GT SCH (09:29)
[2019-04-29] MEDS: Cefepime HCl 2 GM in D5W 55 ML IVPB SCH (09:29)
[2019-04-29] MEDS: Heparin 5000 units/ml inj SUBQ SCH (09:30)
[2019-04-29] MEDS: Dakin's 0.25% (Half Strength) 16oz TOPIC SCH (09:30)
--- NOTE | 2019-04-29 11:29 | General Progress Note ---
Assessment/Plan Assessment/Plan: Marasmus - TF Multifactorial sepsis UTI, Gangrene Lt ankle, Sacral decub., pneumonia - IV Abx per IV Volume depletion -IVF- DC'ed DC to SNF. Subjective Allergies: Coded Allergies: No Known Allergies (Unverified , 02/25/19) Subjective Confused Objective Last 24 Hour Vital Signs Date Time Temp Pulse Resp B/P (MAP) Pulse Ox O2 Delivery O2 Flow Rate FiO2 04/29/19 09:45 101 16 94 Nasal Cannula 4.0 36 04/29/19 09:45 95 Nasal Cannula 2.0 28 04/29/19 09:29 113 138/85 04/29/19 09:00 Nasal Cannula 3.0 04/29/19 08:00 98.4 113 20 138/85 (102) 95 04/29/19 04:00 99.3 106 22 140/78 (98) 97 04/29/19 00:00 99.5 104 20 126/79 (95) 95 04/28/19 21:00 Nasal Cannula 3.0 04/28/19 20:57 115 128/78 04/28/19 20:00 98.3 115 19 128/78 (95) 96 04/28/19 19:32 94 Nasal Cannula 2.0 28 04/28/19 19:32 105 20 94 Nasal Cannula 4.0 36 04/28/19 16:00 98.0 110 20 134/81 (98) 93 04/28/19 12:00 97.2 100 20 143/119 (127) 93 Intake and Output 04/28/19 04/29/19 18:59 06:59 Intake Total 1145 ml 1373 ml Output Total 6300 ml 950 ml Balance -5155 ml 423 ml Intake Free Water 430 ml 400 ml IV Total 55 ml 368 ml Tube Feeding 660 ml 605 ml Output Urine Total 6300 ml 950 ml # Bowel Movements 1 1 Laboratory Tests 04/29/19 05:35: White Blood Count 7.0, Red Blood Count 3.86L, Hemoglobin 8.9L, Hematocrit 28.8L , Mean Corpuscular Volume 74L, Mean Corpuscular Hemoglobin 23.1L, Mean Corpuscular Hemoglobin Concent 31.0L, Red Cell Distribution Width 18.5H, Platelet Count 324, Mean Platelet Volume 6.7, Neutrophils (%) (Auto) 72.0, Lymphocytes (%) (Auto) 16.4L, Monocytes (%) (Auto) 9.1, Eosinophils (%) (Auto) 1.8, Basophils (%) (Auto) 0.8, Sodium Level 142, Potassium Level 4.1, Chloride Level 109H, Carbon Dioxide Level 29, Anion Gap 4L, Blood Urea Nitrogen 20H, Creatinine 0.7, Estimat Glomerular Filtration Rate , Glucose Level 118H, Calcium Level 7.9L, Magnesium Level 2.0 Height (Feet): 5 Height (Inches): 9.00 Weight (Pounds): 107 Objective [place] CV RR Lungs B Ronchi Abd SNT. BS + E Lt. ankle gangrene. Sacral lawandaub Ervin Mario MD Apr 29, 2019 11:29
[2019-04-29] MEDS ORDERED: DAKIN'S1 APPLIC TOPIC (11:32)
[2019-04-29] MEDS ORDERED: ASCORBIC ACID500 M4 GT (11:32)
[2019-04-29] MEDS ORDERED: Vanco pharmacy to dose MISC (11:32)
--- NOTE | 2019-04-29 11:56 | Diagnostic Imaging Report ---
Indication: Dyspnea Comparison: 04/23/2019 A single view chest radiograph was obtained. Findings: Extensive infiltrate noted in the central part of the left lung perihilar distribution. Heart size is prominent but stable. IMPRESSION: Extensive left perihilar infiltrate. No significant change
[2019-04-29 12:00] VITALS: BP 128/73
--- NOTE | 2019-04-29 13:34 | Infectious Diseases Prog Note ---
Assessment/Plan Assessment/Plan IMPRESSION: Sepsis Lactic acidosis. Pneumonia, Urinary tract infection, Infected pressure ulcer, likely osteomyelitis in the left foot and left hip. Chronic obstructive pulmonary disease, advanced Dementia, Hypertension, History of benign prostatic hypertrophy. MRSA carrier RECOMMENDATION: Discontinue with Cefepime & Vancomycin Levaquin 500 mg daily X 5 days wound care We will follow up the cultures Subjective ROS Limited/Unobtainable: Yes Allergies: Coded Allergies: No Known Allergies (Unverified , 02/25/19) Objective Vital Signs Last 24 Hour Vital Signs Date Time Temp Pulse Resp B/P (MAP) Pulse Ox O2 Delivery O2 Flow Rate FiO2 04/29/19 09:45 101 16 94 Nasal Cannula 4.0 36 04/29/19 09:45 95 Nasal Cannula 2.0 28 04/29/19 09:29 113 138/85 04/29/19 09:00 Nasal Cannula 3.0 04/29/19 08:00 98.4 113 20 138/85 (102) 95 04/29/19 04:00 99.3 106 22 140/78 (98) 97 04/29/19 00:00 99.5 104 20 126/79 (95) 95 04/28/19 21:00 Nasal Cannula 3.0 04/28/19 20:57 115 128/78 04/28/19 20:00 98.3 115 19 128/78 (95) 96 04/28/19 19:32 94 Nasal Cannula 2.0 28 04/28/19 19:32 105 20 94 Nasal Cannula 4.0 36 04/28/19 16:00 98.0 110 20 134/81 (98) 93 Height (Feet): 5 Height (Inches): 9.00 Weight (Pounds): 107 General Appearance: no acute distress, cachetic HEENT: mucous membranes moist Respiratory/Chest: lungs clear Cardiovascular: tachycardia Abdomen: soft, non tender, other - GT feeding Skin: ulcers Neurologic/Psychiatric: unresponsiveness, aphasia Laboratory Tests Test 04/29/19 05:35 White Blood Count 7.0 K/UL (4.8-10.8) Red Blood Count 3.86 M/UL (4.70-6.10) L Hemoglobin 8.9 G/DL (14.2-18.0) L Hematocrit 28.8 % (42.0-52.0) L Mean Corpuscular Volume 74 FL (80-99) L Mean Corpuscular Hemoglobin 23.1 PG (27.0-31.0) L Mean Corpuscular Hemoglobin Concent 31.0 G/DL (32.0-36.0) L Red Cell Distribution Width 18.5 % (11.6-14.8) H Platelet Count 324 K/UL (150-450) Mean Platelet Volume 6.7 FL (6.5-10.1) Neutrophils (%) (Auto) 72.0 % (45.0-75.0) Lymphocytes (%) (Auto) 16.4 % (20.0-45.0) L Monocytes (%) (Auto) 9.1 % (1.0-10.0) Eosinophils (%) (Auto) 1.8 % (0.0-3.0) Basophils (%) (Auto) 0.8 % (0.0-2.0) Sodium Level 142 MMOL/L (136-145) Potassium Level 4.1 MMOL/L (3.5-5.1) Chloride Level 109 MMOL/L (98-107) H Carbon Dioxide Level 29 MMOL/L (21-32) Anion Gap 4 mmol/L (5-15) L Blood Urea Nitrogen 20 mg/dL (7-18) H Creatinine 0.7 MG/DL (0.55-1.30) Estimat Glomerular Filtration Rate mL/min (>60) Glucose Level 118 MG/DL (74-106) H Calcium Level 7.9 MG/DL (8.5-10.1) L Magnesium Level 2.0 MG/DL (1.8-2.4) Current Medications Medications (Trade) Dose Ordered Sig/Mckenzie Route PRN Reason Start Time Stop Time Status Last Admin Dose Admin Acetaminophen (Tylenol) 500 mg Q6H PRN ORAL Mild Pain/Temp > 100.5 04/26/19 19:00 05/23/19 18:59 Albuterol/ Ipratropium (Albuterol/ Ipratropium) 3 ml Q4H PRN HHN Shortness of Breath 04/27/19 17:15 05/02/19 17:14 Ascorbic Acid (Vitamin C) 500 mg DAILY GT 04/27/19 09:00 05/24/19 08:59 04/29/19 09:29 Cefepime HCl 2 gm/ Dextrose 55 ml @ 110 mls/hr DAILY IVPB 04/27/19 09:00 05/03/19 12:59 04/29/19 09:29 Heparin Sodium (Porcine) (Heparin 5000 units/ml) 5,000 units EVERY 12 HOURS SUBQ 04/26/19 21:00 05/24/19 08:59 04/29/19 09:30 Lansoprazole (Prevacid) 30 mg DAILY GT 04/27/19 09:00 05/27/19 08:59 04/29/19 09:29 Metoprolol Tartrate (Lopressor) 12.5 mg Q12HR GT 04/26/19 21:00 05/24/19 08:59 04/29/19 09:29 Sodium Hypochlorite (Dakin's Half Strength) 1 applic Q12HR TOPIC 04/26/19 21:00 05/24/19 10:59 04/29/19 09:30 Vancomycin HCl (Vanco rx to dose) 1 ea DAILY PRN MISC Per rx protocol 04/27/19 09:00 05/23/19 21:59 Vancomycin HCl/ Dextrose 275 ml @ 184 mls/hr Q24H IVPB 04/27/19 23:00 05/02/19 22:59 04/28/19 23:35 Lev Pardo MD Apr 29, 2019 13:34
[2019-04-29] MEDS ORDERED: LEVAQUIN500 MG ORAL (15:13)
--- NOTE | 2019-04-29 15:15 | NUR ---
NURSE NOTES: pt is being prepared for discharge, done all dressings changes and taken picture. [facility] came but pt had dessaturation sat 83% and RR 41, succioned pt and kept head in high Read's with good outcome, star 93-94%, RR 20. Peripheral IV access has been dc'd as nurse noticed leakage and no IV atb/ IVF to be given to pt at SNF. [facility] left, nurse contacted to be sent another ambulance.
[2019-04-29 16:00] VITALS: BP 123/79
--- NOTE | 2019-04-29 19:30 | NUR ---
HAND-OFF: Report given to JOSE Jay.
--- NOTE | 2019-04-29 19:38 | NUR ---
NURSE NOTES: left message to public guardian Tanesha Lim at regarding pt's discharge back to [facility]. Tried to call/leave message to Norberto Smith at but voicemail is not active.
[2019-04-29] MEDS ORDERED: Tubing IV Secondary IV ONE (19:49)
--- NOTE | 2019-04-29 19:49 | NUR ---
DISCHARGE NURSE NOTES: PATIENT DISCHARGE, STABLE CONDITION, O2 SAT 97%. SPOKE TO TETE, FROM [facility]. PATIENT HAD NO IV ACCESS. ID BAND REMOVED. PATIENT HAS NO BELONGINGS. DISCHARGE PACKET GIVEN TO AMBULANCE PERSONNEL.
[2019-04-30] MEDS ORDERED: Levofloxacin 500mg tab ORAL SCH (09:00)
--- NOTE | 2019-04-30 11:55 | Discharge Summary ---
Discharge Summary Discharge Summary _ DATE OF ADMISSION: 04/23/2019 DATE OF DISCHARGE: DISCHARGED BY: Dr. Mario REASON FOR ADMISSION: 83 years old male with past medical history of COPD, stage IV sacral decubitus ulcer, left heel gangrene, organic brain syndrome, resident of [facility] facility, presented to the emergency department with respiratory distress. Patient demented and unable to provide any further history. Upon evaluation patient was febrile, tachycardic, hypoxic ,tachypneic , hypotensive. Chest x-ray demonstrated focal airspace disease in left perihilar region . Pneumonia was suspected. Laboratory work-up revealed leukocytosis , hemoglobin 9.7 ,hematocrit 30.7, platelet count 384. Lactic acid 8.3. Potassium 5.4 . BUN 50 , creatinine 1.8 . Albumin 1.6. Troponin - 0.045. EKG revealed sinus tachycardia , no acute ischemic changes. Urinalysis revealed gross evidence of UTI . Patient admitted with severe sepsis, lactic acid acidosis , pneumonia, acute kidney injury, UTI and anemia. CONSULTANTS: pulmonary Dr. Andrade ID specialist Dr. Gomez surgery Dr. Quiñones it software developer Dr. Connor HOSPITAL COURSE: Patient admitted to medical surgical floor and started on empiric antibiotics. ID consult was requested along with gas line installer. Blood cultures were negative. Urine culture revealed Morganella and Strep hemolyticus. Antibiotic regimen optimized as per ID specialist recommendation. Lactic acid was trending down. Leukocytosis and fevers resolved. Patient was on IV antibiotic while in the hospital and switched to oral antibiotic to complete the course at the facility. Per ID specialist, left foot and left hip probably with osteomyelitis. Supplemental oxygen titrated as needed to keep pulse oximetry above 92%. Pulmonary toilet provided as needed. Patient was followed-up with [facility]. Follow-up chest x-ray still demonstrated extensive left perihilar infiltrate. Pulmonary toilet with bronchodilator and chest physical therapy provided. Patient was suction as needed. Aspiration precaution maintained. DVT prophylaxis provided. Electrolytes were closely monitored. Hyperkalemia was treated. Nephrotoxics avoided as possible. Electrolytes further corrected as needed. With IV hydration BUN from 50 down to 20 and creatinine from 1.8 down to 0.7 . Acute renal failure was likely due to dehydration and resolved Wound care for multiple pressure ulcers, present on admission, provided as per general surgeon recommendation. Security System Analyst seen and evaluated patient for left foot gangrene. No acute surgical intervention required by it software developer. Patient will likely require an amputation of the foot. Patient had extensive tissue loss on left lower extremity , which was not salvageable . Surgeon recommended BKA versus AKA. Public guardian was attempted to be contacted by general surgeon , but was out of town till April 29. Strict aspiration precautions were maintained. Patient was able to tolerate tube feeding. Nutritional recommendation implemented and plan of care. Hemoglobin and hematocrit were closely monitored with goal to keep hemoglobin above 7. Hemoglobin and hematocrit remained at baseline, prior to discharge hemoglobin 8.9, hematocrit 28.8. Patient clinically stabilized. Patient was able to downgraded to oxygen 2 L via nasal cannula. Acute kidney injury resolved. Leukocytosis and fever resolved. Hemodynamic status stable. Patient was ready for transfer back to [facility] to complete antibiotic course. Continue wound care at the facility as recommended by general surgeon. Patient will need further attention to the left foot gangrene with probable surgical intervention. 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 DISCHARGE INSTRUCTIONS: Patient was discharged to the [facility] facility. Follow up with medical doctor at the facility. I have been assigned to dictate discharge summary for this account. I was not involved in the patient's management. Chelsey Kumar NP Apr 30, 2019 11:55
== END 2019-04-29 19:50 | DRG 871 ==
LOC: EDBD 15:34 → EDBEDREQ 17:36 → EMR 18:16 → 2W 18:27 → EDBEDREQ 18:53 → 4E 04-26 18:15
PROC: 3E033XZ Introduction of Vasopressor into Peripheral Vein, Percutaneous Approach (ICD-10-PCS; principal; 2019-04-24)
DX: A41.9 Sepsis, unspecified organism (principal); L89.154 Pressure ulcer of sacral region, stage 4; J18.9 Pneumonia, unspecified organism; J96.21 Acute and chronic respiratory failure with hypoxia; N17.9 Acute kidney failure, unspecified; M86.8X7 Other osteomyelitis, ankle and foot; M86.8X8 Other osteomyelitis, other site; N39.0 Urinary tract infection, site not specified; E87.2 Acidosis; I96 Gangrene, not elsewhere classified; R65.20 Severe sepsis without septic shock; L89.220 Pressure ulcer of left hip, unstageable; E86.0 Dehydration; B96.4 Proteus (mirabilis) (morganii) as the cause of diseases classified elsewhere; B95.4 Other streptococcus as the cause of diseases classified elsewhere; Z93.1 Gastrostomy status; E87.5 Hyperkalemia; N40.0 Benign prostatic hyperplasia without lower urinary tract symptoms; D72.829 Elevated white blood cell count, unspecified; I95.9 Hypotension, unspecified; R00.0 Tachycardia, unspecified; Z74.01 Bed confinement status; G30.9 Alzheimer's disease, unspecified; F02.80 Dementia in other diseases classified elsewhere, unspecified severity, without behavioral disturbance, psychotic disturbance, mood disturbance, and anxiety; J44.9 Chronic obstructive pulmonary disease, unspecified; I12.9 Hypertensive chronic kidney disease with stage 1 through stage 4 chronic kidney disease, or unspecified chronic kidney disease; N18.9 Chronic kidney disease, unspecified; L89.219 Pressure ulcer of right hip, unspecified stage; E83.42 Hypomagnesemia; D64.9 Anemia, unspecified; K31.84 Gastroparesis; F09 Unspecified mental disorder due to known physiological condition; Z22.322 Carrier or suspected carrier of Methicillin resistant Staphylococcus aureus
CPT/HCPCS: 36415; 36600; 71045; 80048; 80053; 80202; 81003; 82550; 82553; 82803; 83605; 83735; 84484; 85007; 85025; 86710; 87040; 87081; 87086; 87181; 93005; 94664; 96361; 96365; 99291

== ENCOUNTER 2019-05-21 12:37 | Inpatient (IN) | payer MEDICARE, OTHER ==
[~2019-05-21] VITALS: Ht 162.6 cm; Wt 54.0 kg
[~2019-05-21 12:37] MED LIST changes: +ASCORBIC ACID500 M4 GT; +DAKIN'S1 APPLIC TOPIC; +DOCUSATE SODIU100 M2 GT; -DOCUSATE SODIU100 M2 ORAL; +JEVITY 1.2 CA1500 ML PO; +LEVAQUIN500 MG ORAL; +Vanco pharmacy to dose MISC
[2019-05-21 13:30] VITALS: BP 132/70
--- NOTE | 2019-05-21 13:30 | NUR ---
ED Nurse Note: RECEIVED REPORT FROM JOSE TAM. PT WAS BROUGHT IN BY AMBULANCE FROM [facility] DUE TO ALOC. PER EMS, PT DOES NOT RESPOND MUCH TO FACILITY STAFF STARTING TODAY. MI IS AWAKE BUT NON VERBAL, UNABLE TO FOLLOW COMMANDS, NOTED CONTRACTURES ON BILATERAL LEGS AND WOUND DRESSINGS. ALSO NOTED G-TUBE IN PLACE. VSS.
[2019-05-21 13:41] LABS: APPEARANCE,URINE SLIGHTLY CLOUDY; BILIRUBIN, URINE NEGATIVE (NEGATIVE); GLUCOSE, URINE (UA) NEGATIVE (NEGATIVE); KETONES,URINE NEGATIVE (NEGATIVE); LEUKOCYTE ESTERASE ,URINE 3+ (NEGATIVE); NITRITE,URINE POSITIVE (NEGATIVE); PH,URINE 6 (4.5-8.0); PROTEIN,URINE 2+ (NEGATIVE); UROBILINOGEN,URINE NORMAL MG/DL (0.0-1.0)
--- NOTE | 2019-05-21 13:45 | NUR ---
ED Nurse Note: COLLECTED BLOOD/URINE THEN SENT.
--- NOTE | 2019-05-21 13:45 | NUR ---
ED Nurse Note: NOTED OPEN WOUNDS ON LEFT FOOT, LEFT BUTTOCKS X2 AND RIGHT LOWER LEG. PICTURES TAKEN AND UPLOADED.
[2019-05-21 13:58] LABS: ANION GAP 6 mmol/L (5-15); BLOOD UREA NITROGEN 20 mg/dL (7-18); CALCIUM 8.8 MG/DL (8.5-10.1); CARBON DIOXIDE 29 MMOL/L (21-32); CHLORIDE 103 MMOL/L (98-107); CREATININE 0.7 MG/DL (0.55-1.30); POTASSIUM 4.4 MMOL/L (3.5-5.1); SODIUM 138 MMOL/L (136-145)
--- NOTE | 2019-05-21 14:00 | Emergency Room Report ---
History of Present Illness General Chief Complaint: Altered Level of Consciousness Source: Medical Record, EMS Present Illness HPI Patient sent from care home facility for question of congestion and pneumonia. Recently discharged from the hospital. Also there is a question of whether he has altered mentation from his baseline. The patient has a history of schizophrenia and dementia and is unable to give any history. 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 Acute on chronic respiratory failure Acute on chronic renal failure-resolved Hyperkalemia Anemia COPD Hypertension BPH Dementia Profound lactic acidosis likely due to underlying sepsis Multiple pressure injuries, present on admission Dysphagia, G tube Allergies: Coded Allergies: No Known Allergies (Unverified , 02/25/19) Patient History Limited by: medical condition Past Medical History: see triage record, old chart reviewed Past Surgical History: other - Gastrostomy tube Social History: Denies: smoking Social History Narrative SNF Reviewed Nursing Documentation: PMH: Agreed; PSxH: Agreed Nursing Documentation-PMH Past Medical History: No History, Except For Hx Cardiac Problems: Yes - A-fib, Sepsis Hx Hypertension: Yes Hx Asthma: No - hx resp failure and asp pneumonia Hx COPD: Yes Hx Cancer: No Hx Gastrointestinal Problems: Yes - G-TUBE Hx Neurological Problems: Yes Hx Dementia: Yes Hx Alzheimer's Disease: Yes Hx Memory Loss: Yes Hx Speech Problem: Yes Hx Dysphasia: Yes Hx Weakness: Yes Review of Systems All Other Systems: limited Physical Exam Vital Signs Date Time Temp Pulse Resp B/P (MAP) Pulse Ox O2 Delivery O2 Flow Rate FiO2 05/21/19 12:38 97.9 92 20 120/73 (89) 95 Nasal Cannula 2.0 Sp02 EP Interpretation: reviewed, abnormal - as interpreted by me General Appearance: other - contorted extremities, Chronically Ill Eyes: bilateral eye normal inspection, bilateral eye PERRL ENT: dry mucus membranes Neck: other - some rigidity, no pain with PROM Respiratory: decreased breath sounds Cardiovascular #1: regular rate, rhythm Cardiovascular #2: 2+ radial (R) Gastrointestinal: soft, scaphoid Musculoskeletal: other - contractures Neurologic: other - lethargic Psychiatric: other - lethargic Skin: other - decubitus, venous ulcer left leg Medical Decision Making Diagnostic Impression: Primary Impression: UTI (urinary tract infection) Qualified Codes: N39.0 - Urinary tract infection, site not specified Additional Impressions: Altered level of consciousness Resolving left pneumonia Dehydration Ulcer of lower extremity excluding decubitus ulcer ER Course Patient presents with left congestion and altered mentation. Differential includes pneumonia, sepsis, other infection, acute myocardial infarction, electrolyte imbalance amongst others. He appears dehydrated. Evaluation with EKG, chest x-ray and labs. Treatment with hydration. If source of infection is identified antibiotics will be started. EKG with sinus rhythm without injury. Chest x-ray with left-sided infiltrate however this is improving from prior x-rays earlier in the month. Labs with normal white counts. CMP with elevated BUN. Urinalysis with pyuria. Hydration ongoing. Antibiotics begun. Patient mentation unchanged. Discussed with Dr. Mario. Admit telemetry. Laboratory Tests Test 05/21/19 13:05 05/21/19 13:20 White Blood Count 6.8 K/UL (4.8-10.8) Red Blood Count 4.52 M/UL (4.70-6.10) L Hemoglobin 10.1 G/DL (14.2-18.0) L Hematocrit 33.3 % (42.0-52.0) L Mean Corpuscular Volume 74 FL (80-99) L Mean Corpuscular Hemoglobin 22.3 PG (27.0-31.0) L Mean Corpuscular Hemoglobin Concent 30.2 G/DL (32.0-36.0) L Red Cell Distribution Width 19.2 % (11.6-14.8) H Platelet Count 333 K/UL (150-450) Mean Platelet Volume 6.3 FL (6.5-10.1) L Neutrophils (%) (Auto) 70.8 % (45.0-75.0) Lymphocytes (%) (Auto) 19.0 % (20.0-45.0) L Monocytes (%) (Auto) 8.5 % (1.0-10.0) Eosinophils (%) (Auto) 0.8 % (0.0-3.0) Basophils (%) (Auto) 0.9 % (0.0-2.0) Prothrombin Time 10.6 SEC (9.30-11.50) Prothrombin Time INR 1.0 (0.9-1.1) PTT 23 SEC (23-33) Sodium Level 138 MMOL/L (136-145) Potassium Level 4.4 MMOL/L (3.5-5.1) Chloride Level 103 MMOL/L (98-107) Carbon Dioxide Level 29 MMOL/L (21-32) Anion Gap 6 mmol/L (5-15) Blood Urea Nitrogen 20 mg/dL (7-18) H Creatinine 0.7 MG/DL (0.55-1.30) Estimate Glomerular Filtration Rate mL/min (>60) Glucose Level 104 MG/DL (74-106) Lactic Acid Level 1.10 mmol/L (0.4-2.0) Calcium Level 8.8 MG/DL (8.5-10.1) Total Bilirubin 0.2 MG/DL (0.2-1.0) Aspartate Amino Transferase (AST) 27 U/L (15-37) Alanine Aminotransferase (ALT) 24 U/L (12-78) Alkaline Phosphatase 88 U/L (46-116) Total Creatine Kinase 82 U/L (26-308) Troponin I 0.000 ng/mL (0.000-0.056) Pro-B-Type Natriuretic Peptide 788 pg/mL (0-125) H Total Protein 8.0 G/DL (6.4-8.2) Albumin 1.6 G/DL (3.4-5.0) L Globulin 6.4 g/dL Albumin/Globulin Ratio 0.2 (1.0-2.7) L Urine Color Yellow Urine Appearance Slightly cloudy Urine pH 6 (4.5-8.0) Urine Specific [place] 1.015 (1.005-1.035) Urine Protein 2+ (NEGATIVE) H Urine Glucose (UA) Negative (NEGATIVE) Urine Ketones Negative (NEGATIVE) Urine Blood 4+ (NEGATIVE) H Urine Nitrite Positive (NEGATIVE) H Urine Bilirubin Negative (NEGATIVE) Urine Urobilinogen Normal MG/DL (0.0-1.0) Urine Leukocyte Esterase 3+ (NEGATIVE) H Urine RBC 15-20 /HPF (0 - 0) H Urine WBC Tntc /HPF (0 - 0) H Urine Squamous Epithelial Cells Occasional /LPF Urine Bacteria Many /HPF (NONE) H EKG Diagnostic Results Rate: normal Rhythm: NSR ST Segments: no acute changes Rhythm Strip Diag. Results EP Interpretation: yes Rhythm: NSR, no PVC's, no ectopy Chest X-Ray Diagnostic Results Chest X-Ray Diagnostic Results : Chest X-Ray Ordered: Yes # of Views/Limited/Complete: 1 View Indication: Other EP Interpretation: Yes Interpretation: no effusion, no pneumothorax, other - Left infiltrate resolving somewhat Impression: Other Electronically Signed by: Electronically signed by Christopher Tran MD Last Vital Signs Date Time Temp Pulse Resp B/P (MAP) Pulse Ox O2 Delivery O2 Flow Rate FiO2 05/21/19 20:45 99 158/92 05/21/19 18:02 Room Air 05/21/19 16:30 98.6 18 97 2.0 Status: improved Disposition: ADMITTED INPATIENT Condition: Serious Referrals: Ervin Mario MD (PCP) Christopher Tran MD May 21, 2019 14:00
[2019-05-21 14:04] LABS: COLOR,URINE YELLOW
[2019-05-21 14:07] LABS: BASOPHILS % (AUTO) 0.9 % (0.0-2.0); EOSINOPHILS % (AUTO) 0.8 % (0.0-3.0); HEMATOCRIT 33.3 % (42.0-52.0); HEMOGLOBIN 10.1 G/DL (14.2-18.0); MEAN CORPUSCULAR VOLUME 74 FL (80-99); MONOCYTES % (AUTO) 8.5 % (1.0-10.0); NEUTROPHILS % (AUTO) 70.8 % (45.0-75.0); PLATELET COUNT 333 K/UL (150-450); RED BLOOD COUNT 4.52 M/UL (4.70-6.10); RED CELL DISTRIBUTION WIDTH 19.2 % (11.6-14.8); WHITE BLOOD COUNT 6.8 K/UL (4.8-10.8)
[2019-05-21 14:09] LABS: ALANINE AMINOTRANSFERASE 24 U/L (12-78); ALBUMIN 1.6 G/DL (3.4-5.0); ALBUMIN/GLOBULIN RATIO 0.2 (1.0-2.7); ALKALINE PHOSPHATASE 88 U/L (46-116); ASPARTATE AMINO TRANSFERASE 27 U/L (15-37); BILIRUBIN,TOTAL 0.2 MG/DL (0.2-1.0); CREATINE KINASE 82 U/L (26-308)
--- NOTE | 2019-05-21 14:22 | Diagnostic Imaging Report ---
Indication: Dyspnea Comparison: April 28, 2019 A single view chest radiograph was obtained. Findings: Patchy left perihilar infiltrate demonstrated. This appears slightly improved since the previous study. Follow-up is recommended as well as clinical correlation for pneumonia. Follow-up until resolution is highly recommended. Heart size is stable. Bones are osteopenic. IMPRESSION: Left perihilar infiltrate improved since the previous study but the significant disease still present. Please correlate clinically for pneumonia. Follow-up until complete resolution is highly advisable.
[2019-05-21] MEDS ORDERED: Piperacillin/Tazobactam 3.375 GM in NS 110 ML IVPB ONE (14:45)
[2019-05-21] MEDS ORDERED: Vancomycin 1 GM in NS 275 ML IVPB ONE (14:45)
[2019-05-21 15:30] VITALS: BP 153/80
--- NOTE | 2019-05-21 16:01 | NUR ---
ED Nurse Note: REPORT GIVEN TO SONIA GARCIA OF TELEMETRY UNIT.
--- NOTE | 2019-05-21 16:30 | NUR ---
ED Nurse Note: PT TRANSFERRED TO TELEMTRY UNIT VIA GURNEY WITH BELONGINGS SENT.
--- NOTE | 2019-05-21 16:40 | NUR ---
NURSE NOTES: Received report from JOSE Carlos. Patient transferred from ED to tele. personnel monitor on, belonging list checked with RN. Patient in bed resting no active s/s cardiac, respiratory distress notice at this time. AOx1, open eyes spontaneously, VS at the time of arrival, T 97.2, HR 95, BP 160/91, RR 18, on 2L oxygen via NC, O2 sat 100%. Physical assessment done, G-tube on mid abdomen, redness on sacral 6cm x 4cm,white old scar on right buttock 4cm x2cm,white to red on right hip 6cm, x4cm, wound with slough on left hip 9cm x7cm, skin tear on left hip, slough covered wound on left inner thigh, right lower leg open wound, ,side of left foot slough and open wound, left midiar plantar open wound. Bed in lowest position, side rails upx2, call light within reach. Will continue to monitor.
[2019-05-21] MEDS ORDERED: Acetaminophen 500mg (ES) tab ORAL PRN (17:00)
[2019-05-21] MEDS ORDERED: Albuterol/Ipratropium 3ml neb HHN PRN (17:00)
--- NOTE | 2019-05-21 17:30 | History and Physical Report ---
DATE OF ADMISSION: 05/21/2019 CHIEF COMPLAINT: Altered level of consciousness. HISTORY OF PRESENT ILLNESS: This is an 83-year-old male from [facility]. I was called earlier today by the nursing staff. The patient became altered. The patient was transferred to the emergency department here. The patient is nonverbal and unable to give any further information. PAST MEDICAL HISTORY: 1. Organic brain syndrome. 2. COPD. 3. Status post gastrostomy. 4. Anemia of chronic kidney disease. 5. Recurrent urinary tract infection. 6. Peripheral vascular disease. 7. Recurrent pneumonia. MEDICATIONS: care home medications, Tylenol p.r.n., vitamin C, sodium docusate, subcutaneous heparin, DuoNeb inhalation, Jevity tube feeding, Levaquin, Toprol XL, and Protonix. ALLERGIES: No known drug allergies. FAMILY HISTORY: Unable to obtain due to mental status. SOCIAL HISTORY: Unable to obtain due to mental status. REVIEW OF SYSTEMS: Unable to obtain due to mental status. PHYSICAL EXAMINATION: GENERAL: This is an elderly cachectic male, who is in no acute distress. VITAL SIGNS: Blood pressure 149/78, pulse is 78 and regular, respirations 18, and temperature is 98.6 oral. HEENT: The head is normocephalic and atraumatic. Pupils are equal, round, and reactive to light and accommodation consensually. NECK: Supple. Trachea midline. LUNGS: Bilateral rhonchi and wheezes. HEART: Regular rate and rhythm without rubs, murmurs, or gallops. ABDOMEN: Scaphoid, soft, and nontender. He has a G-tube. EXTREMITIES: Notable for contractures. He has bilateral heel ulcers. NEUROLOGIC: He is confused. There were no gross focal findings. LABORATORY AND ANCILLARY DATA: CBC, hemoglobin 10.1, otherwise within normal limits. Chemistry, BUN 20, otherwise within normal limits. Urinalysis, 15 to 20 rbc's and too numerous to count white blood cells. Chest x-ray, left perihilar infiltrate, improving since last admission. ASSESSMENT: 1. Suspected urosepsis. 2. Organic brain syndrome. 3. COPD. 4. Status post gastrostomy. 5. Anemia of chronic kidney disease. 6. Recurrent urinary tract infection. 7. Peripheral vascular disease. 8. Recurrent pneumonia. PLAN: 1. IV fluid rehydration. 2. Intravenous antibiotics. 3. Continue fdc medications. 4. ID consult. Ervin Mario M.D. DR: COREY JOB#: [id number] CC:
[2019-05-21] MEDS ORDERED: Vancomycin 1 GM in D5W 275 ML IVPB SCH (18:00)
[2019-05-21] MEDS: 1/2NS w/KCl 20mEq 1000ml 1,000 ML IV SCH (19:03)
--- NOTE | 2019-05-21 19:20 | NUR ---
NURSE NOTES: Received patient from Conor GARCIA. Patient is awake and oriented x1. Receiving Oxygen via Nasal cannula at 2L/min, patient is tolerating well. Gtube is patent and intact. Patient has a condom catheter that is intact and draining. IV site is Left hadn 20g receiving 1/2 NS with 20mEq KCl at 50cc/hr. Bed is locked, placed in lowest position, side rails up x3, call light within reach, bed alarm on. Will continue to monitor.
[2019-05-21 20:00] VITALS: BP 158/92
--- NOTE | 2019-05-21 20:01 | NUR ---
HAND-OFF: Report given to JOSE Wilcox.
[2019-05-21] MEDS: Metoprolol 25mg tab GT SCH (20:45)
[2019-05-21] MEDS: Dakin's 0.25% (Half Strength) 16oz TOPIC SCH (20:45)
[2019-05-21] MEDS: Heparin 5000 units/ml inj SUBQ SCH (20:46)
[2019-05-21] MEDS ORDERED: Piperacillin/Tazobactam 2.25 GM in D5W 55 ML IVPB SCH (22:00)
[2019-05-21] MEDS: Zosyn 3.375gm q8h **Extended infusion IVPB SCH ×2 (22:14)
--- NOTE | 2019-05-21 23:30 | NUR ---
NURSE NOTES: Feeding initiated jevity 1.2, current rate 15cc/hr. Will continue to monitor.
[2019-05-22] VITALS: BP 152/89
--- NOTE | 2019-05-22 03:30 | NUR ---
NURSE NOTES: Patient is tolerating feeding well at 15cc/hr. No residuals were found upon checking. Increased rate to 25cc/hr. Will continue to monitor.
[2019-05-22 04:00] VITALS: BP 138/69
[2019-05-22] MEDS: Zosyn 3.375gm q8h **Extended infusion IVPB SCH ×6 (05:40→21:37)
--- NOTE | 2019-05-22 07:10 | NUR ---
NURSE NOTES: I received the patient resting in bed. Patient alert and oriented to name. Patient does not display any signs of distress or SOB. Bed in the lowest position and call light within reach. I will continue to monitor the patient and implement care.
--- NOTE | 2019-05-22 07:32 | NUR ---
HAND-OFF: Report given to Namrata GARCIA. Patient in stable condition
[2019-05-22 08:00] VITALS: BP 144/79
[2019-05-22] MEDS: Docusate 100mg/10ml Liq GT SCH (08:43)
[2019-05-22] MEDS: Metoprolol 25mg tab GT SCH ×2 (08:43→21:38)
[2019-05-22] MEDS: Ascorbic Acid 500mg tab GT SCH (08:43)
[2019-05-22] MEDS: Dakin's 0.25% (Half Strength) 16oz TOPIC SCH ×2 (08:44→21:38)
[2019-05-22] MEDS: Heparin 5000 units/ml inj SUBQ SCH ×2 (08:44→21:39)
[2019-05-22 08:52] LABS: BASOPHILS % (AUTO) 1.1 % (0.0-2.0); EOSINOPHILS % (AUTO) 0.8 % (0.0-3.0); HEMATOCRIT 29.5 % (42.0-52.0); HEMOGLOBIN 9.1 G/DL (14.2-18.0); LYMPHOCYTES % (AUTO) 12.6 % (20.0-45.0); MEAN CORPUSCULAR VOLUME 73 FL (80-99); MONOCYTES % (AUTO) 8.1 % (1.0-10.0); NEUTROPHILS % (AUTO) 77.4 % (45.0-75.0); PLATELET COUNT 323 K/UL (150-450); RED BLOOD COUNT 4.03 M/UL (4.70-6.10); RED CELL DISTRIBUTION WIDTH 18.8 % (11.6-14.8); WHITE BLOOD COUNT 5.7 K/UL (4.8-10.8)
--- NOTE | 2019-05-22 08:58 | NUR ---
NURSE NOTES: Patient resting in bed and responds to name and light touch. Patient's P200 mattress turned on. Patient does not display any signs of distress. Patient tolerating tube feeding well.
[2019-05-22 09:06] LABS: ANION GAP 5 mmol/L (5-15); BLOOD UREA NITROGEN 15 mg/dL (7-18); CALCIUM 8.3 MG/DL (8.5-10.1); CARBON DIOXIDE 25 MMOL/L (21-32); CHLORIDE 106 MMOL/L (98-107); CREATININE 0.6 MG/DL (0.55-1.30); POTASSIUM 4.4 MMOL/L (3.5-5.1); SODIUM 136 MMOL/L (136-145)
--- NOTE | 2019-05-22 11:00 | NUR ---
NURSE NOTES: RN and wound care nurse changed patient's wound dressing and cleaned the patient. The patient tolerated the changing of his wound dressings. Condom cath applied to the patient. Bed in the lowest position and call light within reach. I will continue to monitor the patient and implement care.
[2019-05-22 12:00] VITALS: BP 132/72
--- NOTE | 2019-05-22 12:07 | NUR ---
NURSE NOTES: Dr. Gomez contacted about the patient's positive blood cultures. Patient resting in bed. Bed in the lowest position and call light within reach. I will continue to monitor the patient and await any new orders.
[2019-05-22] MEDS: 1/2NS w/KCl 20mEq 1000ml 1,000 ML IV SCH (14:00)
--- NOTE | 2019-05-22 14:18 | NUR ---
RD ASSESSMENT & RECOMMENDATIONS SEE CARE ACTIVITY FOR COMPLETE ASSESSMENT DAILY ESTIMATED NEEDS: Needs based on Advanced wounds, underweight 50.5kg 30-35 kcals/kg 4294-0852 total kcals 1.5-2.0 g protein/kg 76-101 g total protein 25-30 mL/kg 7704-6901 total fluid mLs NUTRITION DIAGNOSIS: * Increased kcal/pro needs R/T wound healing as evidenced by pt admitted w/ multiple advanced wounds, WC eval pending * Swallowing difficulty R/T dysphagia as evidenced by pt GT dep for all nutritional needs. CURRENT TF:Jevity 1.2 @ 45ml/hr x 24 hrs -> NOT ADEQUATE ENTERAL NUTRITION RECOMMENDATIONS: Jevity 1.2 @ 60ml/hr x 24 hrs + Prosource 1pkt daily to provide 1440ml, 1728kcal, 80g+11g prot, 1162ml free water * Increase goal rate to 60ml/hr x 24 hrs * Add Prosource 1pkt daily to better meet protein needs * HOB over 30 degrees/ water flush per MD ADDITIONAL RECOMMENDATIONS: * Calibrated bedscale wt for accurate CBW * WOUND HEALING: Continue Vit C + ZnSO4 220mg daily x10 days, Simon 1pkt BID * Monitor lytes, replete as needed * INCREASE TF RATE PER REC ABOVE . .
--- NOTE | 2019-05-22 15:45 | NUR ---
CASE MANAGEMENT:REVIEW 83 YR OLD MALE BIBA FROM [facility] CC; ALTERED SI: DEHYDRATION. UTI. ALOC 97.8 92 20 120/73 95% ON 2L/NC H/H-10.1/33.3 IS: 1L NS BOLUS X2 IV VANCOMYCIN X1 URINE CX CHEST XRAY BLOOD CX : TO TELEMETRY INTERQUAL CRITERIA MET
--- NOTE | 2019-05-22 15:48 | General Progress Note ---
Assessment/Plan Assessment/Plan: 1:2 bottles GPC in cluster. GPC bacteremia - on IV Abx per ID. Urosepsis " Skin ulcers - GS consults. Subjective Allergies: Coded Allergies: No Known Allergies (Unverified , 02/25/19) Subjective Obtunded Objective Last 24 Hour Vital Signs Date Time Temp Pulse Resp B/P (MAP) Pulse Ox O2 Delivery O2 Flow Rate FiO2 05/22/19 12:00 77 05/22/19 09:00 Nasal Cannula 2.0 05/22/19 08:43 101 144/79 05/22/19 08:00 101 05/22/19 08:00 97.5 101 18 144/79 (100) 97 05/22/19 04:00 96.9 100 18 138/69 (92) 97 05/22/19 03:26 90 05/22/19 00:00 97.3 103 18 152/89 (110) 97 05/21/19 23:42 93 Nasal Cannula 2.0 28 05/21/19 23:41 72 20 93 Nasal Cannula 2.0 28 05/21/19 23:40 102 05/21/19 21:00 Nasal Cannula 2.0 05/21/19 20:45 99 158/92 05/21/19 20:00 96.6 99 18 158/92 (114) 98 05/21/19 19:03 87 05/21/19 18:02 Room Air 05/21/19 16:30 98.6 78 18 149/78 97 Nasal Cannula 2.0 Intake and Output 05/21/19 05/22/19 19:00 07:00 Intake Total 1410 ml 66.08 ml Output Total 700 ml Balance 1410 ml -633.92 ml Intake IV Total 1410 ml 21.08 ml Tube Feeding 45 ml Output Urine Total 700 ml # Voids 1 # Bowel Movements 2 1 Laboratory Tests 05/22/19 08:26: White Blood Count 5.7, Red Blood Count 4.03L, Hemoglobin 9.1L, Hematocrit 29.5L , Mean Corpuscular Volume 73L, Mean Corpuscular Hemoglobin 22.5L, Mean Corpuscular Hemoglobin Concent 30.7L, Red Cell Distribution Width 18.8H, Platelet Count 323, Mean Platelet Volume 5.9L, Neutrophils (%) (Auto) 77.4H, Lymphocytes (%) (Auto) 12.6L, Monocytes (%) (Auto) 8.1, Eosinophils (%) (Auto) 0.8, Basophils (%) (Auto) 1.1, Sodium Level 136, Potassium Level 4.4, Chloride Level 106, Carbon Dioxide Level 25, Anion Gap 5, Blood Urea Nitrogen 15, Creatinine 0.6, Estimat Glomerular Filtration Rate , Glucose Level 114H, Calcium Level 8.3L Height (Feet): 5 Height (Inches): 4.00 Weight (Pounds): 119 Objective [place] CV RR Lungs B ronchi Abd Scaphoid, SNT. BS +. PEG in. Skin - multiple decubitus ulcers. E Extreme Muscle wasting. Contractures @ major joints. No CCE. Neuro obtunde. Nonfocal Ervin Mario MD May 22, 2019 15:48
[2019-05-22 16:00] VITALS: BP 139/72
--- NOTE | 2019-05-22 16:24 | NUR ---
NURSE NOTES:WOUND CARE NOTES: Pt presented on admission with contractures, multiple pressure injuries. Full thickness pressure injury noted to upper cleft L earlobe.Base of wound 90% viable and moist with 10% slough at base.(L)1.5cm x (W00.6cm x (D)0.6cm. Non-blanchable erythema noted to cleft of Earlobe. Full thickness pressure injury L ischium .Base of wound has 90%pink granulation,10% slough. Edges flat and adherent to base of wound.Dry pink epithelial borders. Periwound without erythema,induration .(L)2.5cm x (W)1.5cm. Resolving pressure injury R ischium. Dry pink epithelial base of wound .(L)4cm x (W)3.5cm. Hyperpigmentation from previous wounds noted to sacrum. Full thickness pressure injury with undermining L trochanter. Upper [place] granulation with bone exposure at base of wound. Small amt non-odorous serous exudate noted (L)3.5cm x (W)3.5cm x (D)1.4cm ,undermining clockwise 12-12 by 3.8cm @12o'clock.Periwound without erythema or induration. Full thickness pressure injury idalia R tibia(L)9cm x (W)2.5cm. 100% pink granulation noted to base of wound. Edges flat and adherent to base of wound .Bone is palpable. Small amt non-odorous serous exudate noted. full thickness pressure injury Lateral L foot extending from L heel to distal /lateral L foot . Base of wound has approx 60% beefy red granulation intertwined with areas of mixed slough and necrosis.Edges macerated .Mild odor noted. (L)(9cm x (W) 20cm.Periwound without erythema but L foot is edematous.Dorsal as[pect of L foot noted to have dark brown discoloration. Full thickness pressure injury noted to distal/plantar aspect of L foot. Base of wound has 10% biofilm. 50% pink granulation with pink epithelial borders. Mild odor noted .Small amt seropurulent exudate noted. (L)1.4cm x (W)2cm. Full thickness pressure injury noted to plantar L hallux. Base of wound has 20% burgess slough with surrounding pink granulation. (+) maceration along borders. Small amt seropurulent exudate noted. Mild odor noted.(L)4.5cm x (W)2.5cm. Tx.Plan: Cleanse wounds L foot with Dakin's 0.125% daysi. Apply Dakin's moist gauze to wounds. Cover with ABD pads and wrap with Kerlix Twice daily and PRN. Cleanse wound R tibia with Dakin's 0.125% daysi.Apply Dakin's moist Gauze to wound. Apply Moisture Barrier periwound. Cover with Optifoam drsg Twice daily and prn. Cleanse wounds L trochanter,L ischium with Dakin's 0.125% daysi. Apply Dakin's moist 2-2 gauze into wound. Apply Moisture Barrier paste periwound. Cover with Optifoam drsg Twice daaily and prn. Apply Moisture Barrier to R ischium and sacrum. Cover each site with Optifoam drsg. Change every 3 days and prn. Cleanse L earlobe with Saline. Apply Therahoney with rolled Gauze. Cover with Optifoam drsg Daily and prn. APM/KAVON mattress overlay. Soft Pillow behind Knees to off-load heels. Reposition at least every 2hours or as tolerated.
--- NOTE | 2019-05-22 16:45 | Consultation ---
DATE OF CONSULTATION: 05/22/2019 INFECTIOUS DISEASE CONSULTATION CONSULTING PHYSICIAN: Manan Gomez M.D. REFERRING PHYSICIAN: Ervin Mario M.D. REASON FOR CONSULTATION: Urinary tract infection and pneumonia. HISTORY OF PRESENT ILLNESS: This 83-year-old gentleman with history of dementia, COPD, status post G-tube placement, and chronic kidney disease, who comes in because of increasing altered mental status. He was found to have urinary tract infection and pneumonia, and an Infectious Disease consultation has been obtained for antibiotics. PAST MEDICAL HISTORY: 1. History of dementia. 2. COPD. 3. Status post G-tube placement. 4. Chronic kidney disease. 5. Urinary tract infection. 6. Peripheral vascular disease. 7. History of recurrent pneumonia. SOCIAL HISTORY: Unknown. FAMILY HISTORY: Unknown. REVIEW OF SYSTEMS: Unable to obtain currently. MEDICATIONS: As an inpatient, he is on IV vancomycin, ascorbic acid, docusate, Protonix, Zosyn, subcutaneous heparin, metoprolol, Tylenol, albuterol and ipratropium. ALLERGIES: No known drug allergies. PHYSICAL EXAMINATION: VITAL SIGNS: Temperature 97.5, T-max of 98.6, pulse 101, respirations 18, and blood pressure 144/79. O2 saturation of 97%. HEENT: Pupils are equally reactive to light and accommodation. NECK: Supple. No adenopathy. No JVD. CARDIOVASCULAR: Regular rate and rhythm. No murmurs. LUNGS: Clear to auscultation bilaterally. No crackles. No wheezes. ABDOMEN: Soft and nontender. G-tube site appears clean. EXTREMITIES: No cyanosis, no clubbing, no edema. Left foot ulcer noted on the lateral aspect and on the plantar. Extremities are contracted. LABORATORY AND DIAGNOSTIC DATA: White count 5.7, hemoglobin 9.1, hematocrit 29.5, MCV 73, platelet count 323, and neutrophils of 77%. Sodium 136, potassium 4.4, chloride 106, bicarb 25, BUN 15, and creatinine 0.6. Glucose 114. Calcium 8.3. Total bilirubin 0.2, AST 27, ALT 24, and alkaline phosphatase 88. CK 82. Troponin 0. Beta-natriuretic peptide 788. Total protein 8, albumin 1.6. UA showing too numerous to count white cells. Urine cultures are pending. Chest x-ray showing left perihilar infiltrate is improved. ASSESSMENT: This is an 83-year-old gentleman with history of dementia and chronic kidney disease, who comes in with altered mental status and is found to have, 1. Urinary tract infection. Cultures are pending. 2. He probably also has aspiration pneumonia. 3. Decubitus ulcers. PLAN: 1. Continue IV vancomycin and Zosyn for now. 2. We will follow up cultures and adjust antibiotics accordingly. I would like to thank, Dr. Mario, for this consultation. Manan Gomez M.D. DR: IMAN JOB#: [id number] CC:
--- NOTE | 2019-05-22 17:56 | Consultation ---
History of Present Illness General Chief Complaint: Altered Level of Consciousness Present Illness HPI This is a 83-year-old male well-known to me from prior visits who have cared for before that is a shelter resident with multiple medical comorbidities that presents with altered level of consciousness, UTI, pneumonia, abnormal labs. On admission identified to have multiple wounds requiring care and management. Surgery called to evaluate and assist with care. Patient seen, patient evaluated, chart reviewed. Allergies: Coded Allergies: No Known Allergies (Unverified , 02/25/19) Medication History Scheduled Ascorbic Acid* (Ascorbic Acid*), 500 MG GT DAILY Docusate Sodium (Docusate Sodium), 100 MG ORAL DAILY, (Reported) Heparin Sod (Porcine) (Heparin Sodium*), 5,000 UNITS SUBQ EVERY 12 HOURS Lactose-Reduced Food/Fiber (Jevity 1.2 Mega Liquid), 55 ML PO EVERY HOUR, ( Reported) Levofloxacin* (Levaquin*), 500 MG ORAL DAILY, (Reported) Metoprolol Tartrate* (Metoprolol Tartrate*), 25 MG ORAL EVERY 12 HOURS, ( Reported) Pantoprazole* (Protonix*), 40 MG ORAL DAILY Sodium Hypochlorite (Dakin's), 1 APPLIC TOPIC Q12HR Scheduled PRN Acetaminophen* (Tylenol Extra Strength*), 500 MG ORAL Q6H PRN for Mild Pain/ Temp > 100.5, (Reported) Ipratropium/Albuterol Sulfate (DuoNeb 0.5-3(2.5)mg/3ml), 3 ML HHN Q4H PRN [[facility] pharmacy to dose], 1 EA MISC DAILY PRN Patient History Limited by: medical condition History Provided By: Medical Record, PMD Healthcare decision maker Suraj Lim Resuscitation status Full Code Advanced Directive on File Yes Past Medical/Surgical History Past Medical/Surgical History: (1) Anemia (2) Pyelonephritis (3) Pneumonia (4) Severe sepsis (5) Sinus tachycardia (6) Hypokalemia (7) Hypokalemia (8) Alzheimer disease (9) Dysphagia (10) Sepsis (11) Gastroparesis (12) Encounter for PEG (percutaneous endoscopic gastrostomy) (13) Malfunction of gastrostomy tube (14) Proteus septicemia (15) Decubitus ulcer of trochanteric region of left hip (16) UTI (urinary tract infection) (17) Altered level of consciousness (18) Ulcer of lower extremity excluding decubitus ulcer (19) Dehydration Review of Systems ROS Narrative Cannot obtain given medical history Physical Exam General Appearance: no apparent distress Lines, tubes and drains: peripheral HEENT: mucous membranes moist Neck: normal inspection Respiratory/Chest: no respiratory distress, no accessory muscle use, decreased breath sounds Cardiovascular/Chest: normal rate Abdomen: soft, no organomegaly, no mass, feeding tube, other Extremities: trace edema Skin Exam: warm/dry, other Neurologic: other Last 24 Hour Vital Signs Date Time Temp Pulse Resp B/P (MAP) Pulse Ox O2 Delivery O2 Flow Rate FiO2 05/22/19 16:00 87 05/22/19 16:00 97.5 95 18 139/72 (94) 100 05/22/19 12:00 77 05/22/19 12:00 97.2 79 19 132/72 (92) 100 05/22/19 09:00 Nasal Cannula 2.0 05/22/19 08:43 101 144/79 05/22/19 08:00 101 05/22/19 08:00 97.5 101 18 144/79 (100) 97 05/22/19 04:00 96.9 100 18 138/69 (92) 97 05/22/19 03:26 90 05/22/19 00:00 97.3 103 18 152/89 (110) 97 05/21/19 23:42 93 Nasal Cannula 2.0 28 05/21/19 23:41 72 20 93 Nasal Cannula 2.0 28 05/21/19 23:40 102 05/21/19 21:00 Nasal Cannula 2.0 05/21/19 20:45 99 158/92 05/21/19 20:00 96.6 99 18 158/92 (114) 98 05/21/19 19:03 87 05/21/19 18:02 Room Air Intake and Output 05/21/19 05/22/19 19:00 07:00 Intake Total 1410 ml 66.08 ml Output Total 700 ml Balance 1410 ml -633.92 ml Intake IV Total 1410 ml 21.08 ml Tube Feeding 45 ml Output Urine Total 700 ml # Voids 1 # Bowel Movements 2 1 Laboratory Tests Test 05/22/19 08:26 White Blood Count 5.7 K/UL (4.8-10.8) Red Blood Count 4.03 M/UL (4.70-6.10) L Hemoglobin 9.1 G/DL (14.2-18.0) L Hematocrit 29.5 % (42.0-52.0) L Mean Corpuscular Volume 73 FL (80-99) L Mean Corpuscular Hemoglobin 22.5 PG (27.0-31.0) L Mean Corpuscular Hemoglobin Concent 30.7 G/DL (32.0-36.0) L Red Cell Distribution Width 18.8 % (11.6-14.8) H Platelet Count 323 K/UL (150-450) Mean Platelet Volume 5.9 FL (6.5-10.1) L Neutrophils (%) (Auto) 77.4 % (45.0-75.0) H Lymphocytes (%) (Auto) 12.6 % (20.0-45.0) L Monocytes (%) (Auto) 8.1 % (1.0-10.0) Eosinophils (%) (Auto) 0.8 % (0.0-3.0) Basophils (%) (Auto) 1.1 % (0.0-2.0) Sodium Level 136 MMOL/L (136-145) Potassium Level 4.4 MMOL/L (3.5-5.1) Chloride Level 106 MMOL/L (98-107) Carbon Dioxide Level 25 MMOL/L (21-32) Anion Gap 5 mmol/L (5-15) Blood Urea Nitrogen 15 mg/dL (7-18) Creatinine 0.6 MG/DL (0.55-1.30) Estimat Glomerular Filtration Rate mL/min (>60) Glucose Level 114 MG/DL (74-106) H Calcium Level 8.3 MG/DL (8.5-10.1) L Height (Feet): 5 Height (Inches): 4.00 Weight (Pounds): 119 Medications Current Medications Medications (Trade) Dose Ordered Sig/Mckenzie Route PRN Reason Start Time Stop Time Status Last Admin Dose Admin Acetaminophen (Tylenol) 500 mg Q6H PRN ORAL Mild Pain/Temp > 100.5 05/21/19 17:00 06/20/19 16:59 Albuterol/ Ipratropium (Albuterol/ Ipratropium) 3 ml Q4H PRN N Shortness of Breath 05/21/19 17:00 05/26/19 16:59 Ascorbic Acid (Vitamin C) 500 mg DAILY GT 05/22/19 09:00 06/21/19 08:59 05/22/19 08:43 Dextrose (Dextrose 50%) 25 ml Q30M PRN IV Hypoglycemia 05/21/19 17:00 06/20/19 16:59 Dextrose (Dextrose 50%) 50 ml Q30M PRN IV Hypoglycemia 05/21/19 17:00 06/20/19 16:59 Docusate Sodium (Colace) 100 mg DAILY GT 05/22/19 09:00 06/21/19 08:59 05/22/19 08:43 Heparin Sodium (Porcine) (Heparin 5000 units/ml) 5,000 units EVERY 12 HOURS SUBQ 05/21/19 21:00 06/20/19 20:59 05/22/19 08:44 Metoprolol Tartrate (Lopressor) 25 mg EVERY 12 HOURS GT 05/21/19 21:00 06/20/19 20:59 05/22/19 08:43 Pantoprazole (Protonix) 40 mg ACBREAKFAST ORAL 05/22/19 06:30 06/21/19 06:29 Piperacillin Sod/ Tazobactam Sod 3.375 gm/Sodium Chloride 110 ml @ 27.5 mls/hr EVERY 8 HOURS IVPB 05/21/19 22:00 05/26/19 21:59 05/22/19 14:40 Sodium 1,000 ml @ 50 mls/hr Q20H IV 05/21/19 18:00 06/20/19 17:59 05/21/19 19:03 Sodium Hypochlorite (Dakin's Half Strength) 1 applic Q12HR TOPIC 05/21/19 21:00 06/20/19 20:59 05/22/19 08:44 Vancomycin HCl (Vanco rx to dose) 1 ea DAILY PRN MISC . 05/22/19 13:30 06/21/19 13:29 Vancomycin HCl 1 gm/Dextrose 275 ml @ 183.708 mls/hr Q24H IVPB 05/22/19 18:00 05/27/19 17:59 Assessment/Plan Problem List: (1) UTI (urinary tract infection) Assessment & Plan: UA noted pending cultures ID per Abx ICD Codes: N39.0 - Urinary tract infection, site not specified SNOMED: 48862886 Qualifiers: Qualified Codes: N39.0 - Urinary tract infection, site not specified (2) Altered level of consciousness ICD Codes: R40.4 - Transient alteration of awareness SNOMED: 1051661 (3) Ulcer of lower extremity excluding decubitus ulcer ICD Codes: L97.909 - Non-pressure chronic ulcer of unspecified part of unspecified lower leg with unspecified severity SNOMED: 969073468 (4) Dehydration ICD Codes: E86.0 - Dehydration SNOMED: 19293696 (5) Sinus tachycardia ICD Codes: R00.0 - Tachycardia, unspecified SNOMED: 63224972 (6) Anemia ICD Codes: D64.9 - Anemia, unspecified SNOMED: 699030721 (7) Pyelonephritis ICD Codes: N12 - Tubulo-interstitial nephritis, not specified as acute or chronic SNOMED: 57960424 (8) Pneumonia ICD Codes: J18.9 - Pneumonia, unspecified organism SNOMED: 805919982 (9) Severe sepsis ICD Codes: A41.9 - Sepsis, unspecified organism; R65.20 - Severe sepsis without septic shock SNOMED: 35988970 (10) Hypokalemia ICD Codes: E87.6 - Hypokalemia SNOMED: 41236952 (11) Hypokalemia ICD Codes: E87.6 - Hypokalemia SNOMED: 71490088 (12) Alzheimer disease ICD Codes: G30.9 - Alzheimer's disease, unspecified; F02.80 - Dementia in other diseases classified elsewhere without behavioral disturbance SNOMED: 53995351 (13) Dysphagia ICD Codes: R13.10 - Dysphagia, unspecified SNOMED: 85992337, 337279501 (14) Sepsis ICD Codes: A41.9 - Sepsis, unspecified organism SNOMED: 96449275 (15) Gastroparesis Assessment & Plan: cont feeds as tolerated needs nutritional support for healing ICD Codes: K31.84 - Gastroparesis SNOMED: 594842637 (16) Encounter for PEG (percutaneous endoscopic gastrostomy) ICD Codes: Z43.1 - Encounter for attention to gastrostomy SNOMED: 066570971, 900750630 (17) Malfunction of gastrostomy tube ICD Codes: K94.23 - Gastrostomy malfunction SNOMED: 551406751 (18) Proteus septicemia ICD Codes: A41.59 - Other Gram-negative sepsis SNOMED: 092685677 (19) Decubitus ulcer of trochanteric region of left hip Assessment & Plan: Pt presented on admission with contractures, multiple pressure injuries. Full thickness pressure injury noted to upper cleft L earlobe.Base of wound 90% viable and moist with 10% slough at base.(L)1.5cm x (W00.6cm x (D)0.6cm. Non-blanchable erythema noted to cleft of Earlobe. Full thickness pressure injury L ischium .Base of wound has 90%pink granulation, 10% slough. Edges flat and adherent to base of wound.Dry pink epithelial borders. Periwound without erythema,induration .(L)2.5cm x (W)1.5cm. Resolving pressure injury R ischium. Dry pink epithelial base of wound .(L)4cm x (W)3.5cm. Hyperpigmentation from previous wounds noted to sacrum. Full thickness pressure injury with undermining L trochanter. [place] granulation with bone exposure at base of wound. Small amt non-odorous serous exudate noted (L)3.5cm x (W)3.5cm x (D)1.4cm ,undermining clockwise 12-12 by 3.8cm @12o' clock.Periwound without erythema or induration. Full thickness pressure injury idalia R tibia(L)9cm x (W)2.5cm. 100% pink granulation noted to base of wound. Edges flat and adherent to base of wound .Bone is palpable. Small amt non-odorous serous exudate noted. full thickness pressure injury Lateral L foot extending from L heel to distal / lateral L foot . Base of wound has approx 60% beefy red granulation intertwined with areas of mixed slough and necrosis.Edges macerated .Mild odor noted. (L)( 9cm x (W) 20cm.Periwound without erythema but L foot is edematous.Dorsal as[ pect of L foot noted to have dark brown discoloration. Full thickness pressure injury noted to distal/plantar aspect of L foot. Base of wound has 10% biofilm. 50% pink granulation with pink epithelial borders. Mild odor noted .Small amt seropurulent exudate noted. (L)1.4cm x (W)2cm. Full thickness pressure injury noted to plantar L hallux. Base of wound has 20% burgess slough with surrounding pink granulation. (+) maceration along borders. Small amt seropurulent exudate noted. Mild odor noted.(L)4.5cm x (W)2.5cm. Tx.Plan: Cleanse wounds L foot with Dakin's 0.125% daysi. Apply Dakin's moist gauze to wounds. Cover with ABD pads and wrap with Kerlix Twice daily and PRN. Cleanse wound R tibia with Dakin's 0.125% daysi.Apply Dakin's moist Gauze to wound. Apply Moisture Barrier periwound. Cover with Optifoam drsg Twice daily and prn. Cleanse wounds L trochanter,L ischium with Dakin's 0.125% daysi. Apply Dakin's moist 2-2 gauze into wound. Apply Moisture Barrier paste periwound. Cover with Optifoam drsg Twice daaily and prn. Apply Moisture Barrier to R ischium and sacrum. Cover each site with Optifoam drsg. Change every 3 days and prn. Cleanse L earlobe with Saline. Apply Therahoney with rolled Gauze. Cover with Optifoam drsg Daily and prn. APM/KAVON mattress overlay. Soft Pillow behind Knees to off-load heels. Reposition at least every 2hours or as tolerated. ICD Codes: L89.229 - Pressure ulcer of left hip, unspecified stage SNOMED: 931263323 Allan Quiñonesya May 22, 2019 17:56
[2019-05-22] MEDS: Vancomycin 1 GM in D5W 275 ML IVPB SCH (18:30)
[2019-05-22] MEDS ORDERED: METOPROLOL TART25 MG GT (19:37)
[2019-05-22] MEDS ORDERED: PROTONIX40 M2 GT (19:39)
--- NOTE | 2019-05-22 19:43 | NUR ---
HAND-OFF: Report given to JOSE Apple.
--- NOTE | 2019-05-22 19:45 | NUR ---
NURSE NOTES: Received report from JOSE Ott. Patient in bed asleep showing no signs of acute distress. AOx1. No acute pain noted m/b no facial grimace. Respiration even and non labored on 2L O2 via NC. VS stable. GTube feeding Jevity 1.2 @ 45cc/hr tolerated fairly with 0 residual. IV patent and intact on 0.45% NS w/ 20 meq KCL at 50ml/hr. Pt. on condom cath, patent, intact and draining. Wounds dressing intact. Bed in lowest position, wheels locked, alarm on. All needs attended and met. Will continue plan of care.
[2019-05-22 22:03] VITALS: BP 145/85
[2019-05-23] VITALS: BP 150/77
[2019-05-23 04:00] VITALS: BP 134/72
[2019-05-23] MEDS: Zosyn 3.375gm q8h **Extended infusion IVPB SCH ×6 (05:20→21:28)
[2019-05-23] MEDS: 1/2NS w/KCl 20mEq 1000ml 1,000 ML IV SCH (05:23)
--- NOTE | 2019-05-23 07:22 | NUR ---
HAND-OFF: Report given to JOSE Quintana.
--- NOTE | 2019-05-23 07:36 | NUR ---
NURSE NOTES: Received report from JOSE Apple. Pt is laying in bed. He is able to look at me when I call his name but does not respond. Pt is contracted. Bed id in lowest position, side rails up X2, and call light is within reach. WIll continue to monitor.
[2019-05-23 08:00] VITALS: BP 122/73
[2019-05-23] MEDS: Ascorbic Acid 500mg tab GT SCH (08:37)
[2019-05-23] MEDS: Docusate 100mg/10ml Liq GT SCH (08:37)
[2019-05-23] MEDS: Metoprolol 25mg tab GT SCH ×2 (08:37→21:15)
[2019-05-23] MEDS: Dakin's 0.25% (Half Strength) 16oz TOPIC SCH ×2 (08:37→21:15)
[2019-05-23] MEDS: Heparin 5000 units/ml inj SUBQ SCH ×2 (08:39→21:23)
--- NOTE | 2019-05-23 10:15 | Infectious Diseases Prog Note ---
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 AMS Alzheimer disease Pressure ulcers Anemia P: Continue Vancomycin & Zosyn Will f/u cultures Subjective ROS Limited/Unobtainable: Yes Constitutional: Denies: fever Gastrointestinal/Abdominal: Denies: diarrhea Allergies: Coded Allergies: No Known Allergies (Unverified , 02/25/19) Objective Vital Signs Last 24 Hour Vital Signs Date Time Temp Pulse Resp B/P (MAP) Pulse Ox O2 Delivery O2 Flow Rate FiO2 05/23/19 08:37 80 122/73 05/23/19 08:00 86 05/23/19 08:00 97.2 80 18 122/73 (89) 93 05/23/19 04:00 86 05/23/19 04:00 97.9 91 20 134/72 (92) 98 05/23/19 00:00 97.8 85 20 150/77 (101) 98 05/23/19 00:00 75 05/22/19 22:03 97.7 94 20 145/85 (105) 99 05/22/19 21:43 97 Nasal Cannula 2.0 28 05/22/19 21:38 94 145/85 05/22/19 21:00 Nasal Cannula 2.0 05/22/19 20:00 91 05/22/19 16:00 87 05/22/19 16:00 97.5 95 18 139/72 (94) 100 05/22/19 12:00 77 05/22/19 12:00 97.2 79 19 132/72 (92) 100 Height (Feet): 5 Height (Inches): 4.00 Weight (Pounds): 119 General Appearance: cachetic HEENT: mucous membranes moist Respiratory/Chest: lungs clear, other - oxygen by nasal cannula Cardiovascular: normal rate Abdomen: soft, non tender, other - GT feeding Extremities: no edema, other - contracted legs Skin: ulcers Neurologic/Psychiatric: aphasia Musculoskeletal: atrophy Microbiology Date/Time Source Procedure Growth Status 05/21/19 13:20 Blood Blood Culture - Preliminary Staphylococcus Species Resulted 05/21/19 13:05 Blood Blood Culture - Preliminary Staphylococcus Species Resulted 05/21/19 14:15 Nasal Nares MRSA Culture - Final Staphylococcus Aureus - Mrsa Complete 05/21/19 13:20 Urine,Clean Catch Urine Culture - Preliminary Gram Negative Carlos Resulted 05/21/19 14:15 Rectum VRE Culture - Final Enterococcus Faecium - Vre Resulted 05/21/19 14:15 Rectum Pending Resulted Current Medications Medications (Trade) Dose Ordered Sig/Mckenzie Route PRN Reason Start Time Stop Time Status Last Admin Dose Admin Acetaminophen (Tylenol) 500 mg Q6H PRN ORAL Mild Pain/Temp > 100.5 05/21/19 17:00 06/20/19 16:59 Albuterol/ Ipratropium (Albuterol/ Ipratropium) 3 ml Q4H PRN HHN Shortness of Breath 05/21/19 17:00 05/26/19 16:59 Ascorbic Acid (Vitamin C) 500 mg DAILY GT 05/22/19 09:00 06/21/19 08:59 05/23/19 08:37 Dextrose (Dextrose 50%) 25 ml Q30M PRN IV Hypoglycemia 05/21/19 17:00 06/20/19 16:59 Dextrose (Dextrose 50%) 50 ml Q30M PRN IV Hypoglycemia 05/21/19 17:00 06/20/19 16:59 Docusate Sodium (Colace) 100 mg DAILY GT 05/22/19 09:00 06/21/19 08:59 05/23/19 08:37 Heparin Sodium (Porcine) (Heparin 5000 units/ml) 5,000 units EVERY 12 HOURS SUBQ 05/21/19 21:00 06/20/19 20:59 05/23/19 08:39 Metoprolol Tartrate (Lopressor) 25 mg EVERY 12 HOURS GT 05/21/19 21:00 06/20/19 20:59 05/23/19 08:37 Pantoprazole (Protonix) 40 mg ACBREAKFAST ORAL 05/22/19 06:30 06/21/19 06:29 05/23/19 05:37 Piperacillin Sod/ Tazobactam Sod 3.375 gm/Sodium Chloride 110 ml @ 27.5 mls/hr EVERY 8 HOURS IVPB 05/21/19 22:00 05/26/19 21:59 05/23/19 05:20 Sodium 1,000 ml @ 50 mls/hr Q20H IV 05/21/19 18:00 06/20/19 17:59 05/23/19 05:23 Sodium Hypochlorite (Dakin's Half Strength) 1 applic Q12HR TOPIC 05/21/19 21:00 06/20/19 20:59 05/23/19 08:37 Vancomycin HCl (Vanco rx to dose) 1 ea DAILY PRN MISC . 05/22/19 13:30 06/21/19 13:29 Vancomycin HCl 1 gm/Dextrose 275 ml @ 183.708 mls/hr Q24H IVPB 05/22/19 18:00 05/27/19 17:59 05/22/19 18:30 Lev Pardo MD May 23, 2019 10:14
[2019-05-23 12:00] VITALS: BP 123/67
--- NOTE | 2019-05-23 14:35 | Surgery Progress Note ---
Surgery Progress Note Subjective Additional Comments no acute events. exam stable. Objective Last 24 Hour Vital Signs Date Time Temp Pulse Resp B/P (MAP) Pulse Ox O2 Delivery O2 Flow Rate FiO2 05/23/19 12:00 74 05/23/19 12:00 97.6 78 13 123/67 (85) 93 05/23/19 09:33 95 Nasal Cannula 2.0 28 05/23/19 09:00 Nasal Cannula 2.0 05/23/19 08:37 80 122/73 05/23/19 08:00 86 05/23/19 08:00 97.2 80 18 122/73 (89) 93 05/23/19 04:00 86 05/23/19 04:00 97.9 91 20 134/72 (92) 98 05/23/19 00:00 97.8 85 20 150/77 (101) 98 05/23/19 00:00 75 05/22/19 22:03 97.7 94 20 145/85 (105) 99 05/22/19 21:43 97 Nasal Cannula 2.0 28 05/22/19 21:38 94 145/85 05/22/19 21:00 Nasal Cannula 2.0 05/22/19 20:00 91 05/22/19 16:00 87 05/22/19 16:00 97.5 95 18 139/72 (94) 100 I&O Intake and Output 05/22/19 05/23/19 19:00 07:00 Intake Total 812.5 ml 30.83 ml Output Total 250 ml 600 ml Balance 562.5 ml -569.17 ml Intake IV Total 282.5 ml 30.83 ml Tube Feeding 530 ml Output Urine Total 250 ml 600 ml # Bowel Movements 1 Dressing: saturated Wound: other Drains: other Cardiovascular: RSR Respiratory: decreased breath sounds Abdomen: soft, present bowel sounds, non-distended Extremities: other Plan Problems: (1) UTI (urinary tract infection) Assessment & Plan: UA noted pending cultures ID per Abx (2) Altered level of consciousness (3) Ulcer of lower extremity excluding decubitus ulcer (4) Dehydration (5) Sinus tachycardia (6) Anemia (7) Pyelonephritis (8) Pneumonia (9) Severe sepsis (10) Hypokalemia (11) Hypokalemia (12) Alzheimer disease (13) Dysphagia (14) Sepsis (15) Gastroparesis Assessment & Plan: cont feeds as tolerated needs nutritional support for healing (16) Encounter for PEG (percutaneous endoscopic gastrostomy) (17) Malfunction of gastrostomy tube (18) Proteus septicemia (19) Decubitus ulcer of trochanteric region of left hip Assessment & Plan: Pt presented on admission with contractures, multiple pressure injuries. Full thickness pressure injury noted to upper cleft L earlobe.Base of wound 90% viable and moist with 10% slough at base.(L)1.5cm x (W00.6cm x (D)0.6cm. Non-blanchable erythema noted to cleft of Earlobe. Full thickness pressure injury L ischium .Base of wound has 90%pink granulation, 10% slough. Edges flat and adherent to base of wound.Dry pink epithelial borders. Periwound without erythema,induration .(L)2.5cm x (W)1.5cm. Resolving pressure injury R ischium. Dry pink epithelial base of wound .(L)4cm x (W)3.5cm. Hyperpigmentation from previous wounds noted to sacrum. Full thickness pressure injury with undermining L trochanter. [place] granulation with bone exposure at base of wound. Small amt non-odorous serous exudate noted (L)3.5cm x (W)3.5cm x (D)1.4cm ,undermining clockwise 12-12 by 3.8cm @12o' clock.Periwound without erythema or induration. Full thickness pressure injury idalia R tibia(L)9cm x (W)2.5cm. 100% pink granulation noted to base of wound. Edges flat and adherent to base of wound .Bone is palpable. Small amt non-odorous serous exudate noted. full thickness pressure injury Lateral L foot extending from L heel to distal / lateral L foot . Base of wound has approx 60% beefy red granulation intertwined with areas of mixed slough and necrosis.Edges macerated .Mild odor noted. (L)( 9cm x (W) 20cm.Periwound without erythema but L foot is edematous.Dorsal as[ pect of L foot noted to have dark brown discoloration. Full thickness pressure injury noted to distal/plantar aspect of L foot. Base of wound has 10% biofilm. 50% pink granulation with pink epithelial borders. Mild odor noted .Small amt seropurulent exudate noted. (L)1.4cm x (W)2cm. Full thickness pressure injury noted to plantar L hallux. Base of wound has 20% burgess slough with surrounding pink granulation. (+) maceration along borders. Small amt seropurulent exudate noted. Mild odor noted.(L)4.5cm x (W)2.5cm. Tx.Plan: Cleanse wounds L foot with Dakin's 0.125% daysi. Apply Dakin's moist gauze to wounds. Cover with ABD pads and wrap with Kerlix Twice daily and PRN. Cleanse wound R tibia with Dakin's 0.125% daysi.Apply Dakin's moist Gauze to wound. Apply Moisture Barrier periwound. Cover with Optifoam drsg Twice daily and prn. Cleanse wounds L trochanter,L ischium with Dakin's 0.125% daysi. Apply Dakin's moist 2-2 gauze into wound. Apply Moisture Barrier paste periwound. Cover with Optifoam drsg Twice daaily and prn. Apply Moisture Barrier to R ischium and sacrum. Cover each site with Optifoam drsg. Change every 3 days and prn. Cleanse L earlobe with Saline. Apply Therahoney with rolled Gauze. Cover with Optifoam drsg Daily and prn. APM/KAVON mattress overlay. Soft Pillow behind Knees to off-load heels. Reposition at least every 2hours or as tolerated. Rios Quiñones May 23, 2019 14:35
[2019-05-23 16:00] VITALS: BP 147/79
--- NOTE | 2019-05-23 16:50 | General Progress Note ---
Assessment/Plan Assessment/Plan: 1:2 bottles GPC in cluster. GPC bacteremia - on IV Abx per ID. Urosepsis GNR IV Abx per ID Skin ulcers - GS consults. Subjective Allergies: Coded Allergies: No Known Allergies (Unverified , 02/25/19) Subjective Obtunded Objective Last 24 Hour Vital Signs Date Time Temp Pulse Resp B/P (MAP) Pulse Ox O2 Delivery O2 Flow Rate FiO2 05/23/19 16:00 83 05/23/19 12:00 74 05/23/19 12:00 97.6 78 13 123/67 (85) 93 05/23/19 09:33 95 Nasal Cannula 2.0 28 05/23/19 09:00 Nasal Cannula 2.0 05/23/19 08:37 80 122/73 05/23/19 08:00 86 05/23/19 08:00 97.2 80 18 122/73 (89) 93 05/23/19 04:00 86 05/23/19 04:00 97.9 91 20 134/72 (92) 98 05/23/19 00:00 97.8 85 20 150/77 (101) 98 05/23/19 00:00 75 05/22/19 22:03 97.7 94 20 145/85 (105) 99 05/22/19 21:43 97 Nasal Cannula 2.0 28 05/22/19 21:38 94 145/85 05/22/19 21:00 Nasal Cannula 2.0 05/22/19 20:00 91 Intake and Output 05/22/19 05/23/19 19:00 07:00 Intake Total 812.5 ml 30.83 ml Output Total 250 ml 600 ml Balance 562.5 ml -569.17 ml Intake IV Total 282.5 ml 30.83 ml Tube Feeding 530 ml Output Urine Total 250 ml 600 ml # Bowel Movements 1 Height (Feet): 5 Height (Inches): 4.00 Weight (Pounds): 119 Objective [place] CV RR Lungs B ronchi Abd Scaphoid, SNT. BS +. PEG in. Skin - multiple decubitus ulcers. E Extreme Muscle wasting. Contractures @ major joints. No CCE. Neuro obtunde. Nonfocal Ervin Mario MD May 23, 2019 16:50
[2019-05-23] MEDS: Vancomycin 1 GM in D5W 275 ML IVPB SCH (17:43)
--- NOTE | 2019-05-23 19:15 | NUR ---
HAND-OFF: Report given to JOSE Vieira. Plan of care endorsed.
--- NOTE | 2019-05-23 19:16 | NUR ---
NURSE NOTES: Received pt from JOSE Tejeda. Pt is awake and resting in bed with HOB elevated, in no acute distress. Iv site intact and patent. G-tube feeding patent. Will continue with plan of care.
[2019-05-23 20:00] VITALS: BP 136/81
[2019-05-24] VITALS: BP 142/77
[2019-05-24 04:00] VITALS: BP 147/81
[2019-05-24] MEDS: 1/2NS w/KCl 20mEq 1000ml 1,000 ML IV SCH ×2 (06:00→19:00)
[2019-05-24] MEDS: Zosyn 3.375gm q8h **Extended infusion IVPB SCH ×2 (06:05)
--- NOTE | 2019-05-24 07:45 | NUR ---
HAND-OFF: Report given to JOSE Chao. Endorsed plan of care.
--- NOTE | 2019-05-24 07:46 | NUR ---
NURSE NOTES: Received pt from Dariel GARCIA. Patient is awake and resting in bed with HOB elevated, in no acute distress. IV site patent and intact. Bed is in lowest position, brakes engaged for safety. G-tube feeding patent. Will continue with plan of care.
[2019-05-24 08:00] VITALS: BP 152/88
[2019-05-24] MEDS: Ascorbic Acid 500mg tab GT SCH (09:00)
[2019-05-24] MEDS: Metoprolol 25mg tab GT SCH ×2 (09:01→20:55)
[2019-05-24] MEDS: Docusate 100mg/10ml Liq GT SCH (09:01)
[2019-05-24] MEDS: Heparin 5000 units/ml inj SUBQ SCH ×2 (09:02→20:56)
[2019-05-24] MEDS: Dakin's 0.25% (Half Strength) 16oz TOPIC SCH ×2 (09:04→20:56)
--- NOTE | 2019-05-24 10:34 | Infectious Diseases Prog Note ---
Assessment/Plan Assessment/Plan antibiotics : vancomycin iv, zosyn A 1. pseudomonas UTI 2. + blood cultures with staph hominis likely contaminated 3. COPD 4. 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 decubitus ulcers P 1. d/c iv vancomycin, zosyn 2. start and continue GT levoquin 3 more days 3. will follow up cultures Subjective ROS Limited/Unobtainable: Yes Allergies: Coded Allergies: No Known Allergies (Unverified , 02/25/19) Objective Vital Signs Last 24 Hour Vital Signs Date Time Temp Pulse Resp B/P (MAP) Pulse Ox O2 Delivery O2 Flow Rate FiO2 05/24/19 09:01 94 152/88 05/24/19 09:00 Nasal Cannula 2.0 05/24/19 08:00 92 05/24/19 08:00 97.5 94 18 152/88 (109) 99 05/24/19 07:37 96 Nasal Cannula 2.0 28 05/24/19 07:37 74 20 96 Nasal Cannula 2.0 28 05/24/19 04:00 80 05/24/19 04:00 98.1 80 17 147/81 (103) 100 05/24/19 00:00 98.3 83 17 142/77 (98) 100 05/24/19 00:00 83 05/23/19 21:15 97 136/81 05/23/19 21:00 Nasal Cannula 2.0 05/23/19 20:00 97.7 93 16 136/81 (99) 99 05/23/19 20:00 93 05/23/19 19:35 76 20 95 Nasal Cannula 2.0 28 05/23/19 19:35 95 Nasal Cannula 2.0 28 05/23/19 16:00 97.7 96 15 147/79 (101) 96 05/23/19 16:00 83 05/23/19 12:00 74 05/23/19 12:00 97.6 78 13 123/67 (85) 93 Height (Feet): 5 Height (Inches): 4.00 Weight (Pounds): 119 Respiratory/Chest: lungs clear Cardiovascular: normal rate, regular rhythm, no gallop/murmur Abdomen: soft, non tender, other - GT Extremities: no edema, other - contracted Microbiology Date/Time Source Procedure Growth Status 05/21/19 13:20 Blood Blood Culture - Final Staph Hominis Ssp Hominis Complete 05/21/19 13:05 Blood Blood Culture - Final Staph Hominis Ssp Hominis Complete 05/21/19 14:15 Nasal Nares MRSA Culture - Final Staphylococcus Aureus - Mrsa Complete 05/21/19 13:20 Urine,Clean Catch Urine Culture - Final Pseudomonas Aeruginosa Pseudomonas Aeruginosa#2 Complete 05/21/19 14:15 Rectum VRE Culture - Final Enterococcus Faecium - Vre Resulted 05/21/19 14:15 Rectum Pending Resulted Current Medications Medications (Trade) Dose Ordered Sig/Mckenzie Route PRN Reason Start Time Stop Time Status Last Admin Dose Admin Acetaminophen (Tylenol) 500 mg Q6H PRN ORAL Mild Pain/Temp > 100.5 05/21/19 17:00 06/20/19 16:59 Albuterol/ Ipratropium (Albuterol/ Ipratropium) 3 ml Q4H PRN HHN Shortness of Breath 05/21/19 17:00 05/26/19 16:59 Ascorbic Acid (Vitamin C) 500 mg DAILY GT 05/22/19 09:00 06/21/19 08:59 05/24/19 09:00 Dextrose (Dextrose 50%) 25 ml Q30M PRN IV Hypoglycemia 05/21/19 17:00 06/20/19 16:59 Dextrose (Dextrose 50%) 50 ml Q30M PRN IV Hypoglycemia 05/21/19 17:00 06/20/19 16:59 Docusate Sodium (Colace) 100 mg DAILY GT 05/22/19 09:00 06/21/19 08:59 05/24/19 09:01 Heparin Sodium (Porcine) (Heparin 5000 units/ml) 5,000 units EVERY 12 HOURS SUBQ 05/21/19 21:00 06/20/19 20:59 05/24/19 09:02 Metoprolol Tartrate (Lopressor) 25 mg EVERY 12 HOURS GT 05/21/19 21:00 06/20/19 20:59 05/24/19 09:01 Pantoprazole (Protonix) 40 mg ACBREAKFAST ORAL 05/22/19 06:30 06/21/19 06:29 05/24/19 06:05 Piperacillin Sod/ Tazobactam Sod 3.375 gm/Sodium Chloride 110 ml @ 27.5 mls/hr EVERY 8 HOURS IVPB 05/21/19 22:00 05/26/19 21:59 05/24/19 06:05 Sodium 1,000 ml @ 50 mls/hr Q20H IV 05/21/19 18:00 06/20/19 17:59 05/23/19 05:23 Sodium Hypochlorite (Dakin's Half Strength) 1 applic Q12HR TOPIC 05/21/19 21:00 06/20/19 20:59 05/24/19 09:04 Vancomycin HCl (Vanco rx to dose) 1 ea DAILY PRN MISC . 05/22/19 13:30 06/21/19 13:29 Vancomycin HCl 1 gm/Dextrose 275 ml @ 183.708 mls/hr Q24H IVPB 05/22/19 18:00 05/27/19 17:59 05/23/19 17:43 Manan Gomez MD May 24, 2019 10:34
--- NOTE | 2019-05-24 10:40 | NUR ---
RD ASSESSMENT & RECOMMENDATIONS SEE CARE ACTIVITY FOR COMPLETE ASSESSMENT DAILY ESTIMATED NEEDS: Needs based on multiple wounds, underweight 50.5kg 30-35 kcals/kg 5600-4269 total kcals 1.5-2.0 g protein/kg 76-101 g total protein 25-30 mL/kg 8190-5001 total fluid mLs NUTRITION DIAGNOSIS: * Increased kcal/pro needs R/T wound healing as evidenced by pt admitted w/ multiple full thickness wounds, refer to wound eval. * Swallowing difficulty R/T dysphagia as evidenced by pt GT dep for all nutritional needs. (CURRENT TF: Jevity 1.2 @ 45ml/hr x 24 hrs) ENTERAL NUTRITION RECOMMENDATIONS: Jevity 1.2 @ 60ml/hr x 24 hrs + Prosource 1pkt daily to provide 1440ml, 1728kcal, 80g+11g prot, 1162ml free water * REC TO INCREASE TF to goal rate of 60ml/hr x 24 hrs * Add Prosource 1pkt daily to better meet protein needs * HOB over 30 degrees/ water flush per MD ------ ADDITIONAL RECOMMENDATIONS: * Calibrated bedscale wt for accurate CBW * WOUND HEALING: Continue Vit C + ZnSO4 220mg daily x10 days, Simon 1pkt BID * Updated labs as able * INCREASE TF RATE PER REC ABOVE . .
[2019-05-24] MEDS: Levofloxacin 500mg tab ORAL SCH (10:56)
--- NOTE | 2019-05-24 11:28 | Surgery Progress Note ---
Surgery Progress Note Subjective Additional Comments micro noted with bacteremia on IV abx wound dressing changed. exam unchanged decompensated overall each admission Objective Last 24 Hour Vital Signs Date Time Temp Pulse Resp B/P (MAP) Pulse Ox O2 Delivery O2 Flow Rate FiO2 05/24/19 09:01 94 152/88 05/24/19 09:00 Nasal Cannula 2.0 05/24/19 08:00 92 05/24/19 08:00 97.5 94 18 152/88 (109) 99 05/24/19 07:37 96 Nasal Cannula 2.0 28 05/24/19 07:37 74 20 96 Nasal Cannula 2.0 28 05/24/19 04:00 80 05/24/19 04:00 98.1 80 17 147/81 (103) 100 05/24/19 00:00 98.3 83 17 142/77 (98) 100 05/24/19 00:00 83 05/23/19 21:15 97 136/81 05/23/19 21:00 Nasal Cannula 2.0 05/23/19 20:00 97.7 93 16 136/81 (99) 99 05/23/19 20:00 93 05/23/19 19:35 76 20 95 Nasal Cannula 2.0 28 05/23/19 19:35 95 Nasal Cannula 2.0 28 05/23/19 16:00 97.7 96 15 147/79 (101) 96 05/23/19 16:00 83 05/23/19 12:00 74 05/23/19 12:00 97.6 78 13 123/67 (85) 93 I&O Intake and Output 05/23/19 05/24/19 18:59 06:59 Output Total 700 ml 1000 ml Balance -700 ml -1000 ml Output Urine Total 700 ml 1000 ml Dressing: saturated Wound: other Drains: other Cardiovascular: RSR Respiratory: decreased breath sounds Abdomen: soft, present bowel sounds, non-distended Extremities: no cyanosis Plan Problems: (1) UTI (urinary tract infection) Assessment & Plan: UA noted cultures noted Abx as per ID (2) Altered level of consciousness (3) Ulcer of lower extremity excluding decubitus ulcer (4) Dehydration (5) Sinus tachycardia (6) Anemia (7) Pyelonephritis (8) Pneumonia (9) Severe sepsis (10) Hypokalemia (11) Hypokalemia (12) Alzheimer disease (13) Dysphagia (14) Sepsis (15) Gastroparesis Assessment & Plan: cont feeds as tolerated needs nutritional support for healing DAILY ESTIMATED NEEDS: Needs based on multiple wounds, underweight 50.5kg 30-35 kcals/kg 0856-0617 total kcals 1.5-2.0 g protein/kg 76-101 g total protein 25-30 mL/kg 2481-7872 total fluid mLs NUTRITION DIAGNOSIS: * Increased kcal/pro needs R/T wound healing as evidenced by pt admitted w/ multiple full thickness wounds, refer to wound eval. * Swallowing difficulty R/T dysphagia as evidenced by pt GT dep for all nutritional needs. (CURRENT TF: Jevity 1.2 @ 45ml/hr x 24 hrs) ENTERAL NUTRITION RECOMMENDATIONS: Jevity 1.2 @ 60ml/hr x 24 hrs + Prosource 1pkt daily to provide 1440ml, 1728kcal, 80g+11g prot, 1162ml free water * REC TO INCREASE TF to goal rate of 60ml/hr x 24 hrs * Add Prosource 1pkt daily to better meet protein needs * HOB over 30 degrees/ water flush per MD ------ ADDITIONAL RECOMMENDATIONS: * Calibrated bedscale wt for accurate CBW * WOUND HEALING: Continue Vit C + ZnSO4 220mg daily x10 days, Simon 1pkt BID * Updated labs as able * INCREASE TF RATE PER REC ABOVE (16) Encounter for PEG (percutaneous endoscopic gastrostomy) (17) Malfunction of gastrostomy tube (18) Proteus septicemia (19) Decubitus ulcer of trochanteric region of left hip Assessment & Plan: Pt presented on admission with contractures, multiple pressure injuries. Full thickness pressure injury noted to upper cleft L earlobe.Base of wound 90% viable and moist with 10% slough at base.(L)1.5cm x (W00.6cm x (D)0.6cm. Non-blanchable erythema noted to cleft of Earlobe. Full thickness pressure injury L ischium .Base of wound has 90%pink granulation, 10% slough. Edges flat and adherent to base of wound.Dry pink epithelial borders. Periwound without erythema,induration .(L)2.5cm x (W)1.5cm. Resolving pressure injury R ischium. Dry pink epithelial base of wound .(L)4cm x (W)3.5cm. Hyperpigmentation from previous wounds noted to sacrum. Full thickness pressure injury with undermining L trochanter. [place] granulation with bone exposure at base of wound. Small amt non-odorous serous exudate noted (L)3.5cm x (W)3.5cm x (D)1.4cm ,undermining clockwise 12-12 by 3.8cm @12o' clock.Periwound without erythema or induration. Full thickness pressure injury idalia R tibia(L)9cm x (W)2.5cm. 100% pink granulation noted to base of wound. Edges flat and adherent to base of wound .Bone is palpable. Small amt non-odorous serous exudate noted. full thickness pressure injury Lateral L foot extending from L heel to distal / lateral L foot . Base of wound has approx 60% beefy red granulation intertwined with areas of mixed slough and necrosis.Edges macerated .Mild odor noted. (L)( 9cm x (W) 20cm.Periwound without erythema but L foot is edematous.Dorsal as[ pect of L foot noted to have dark brown discoloration. Full thickness pressure injury noted to distal/plantar aspect of L foot. Base of wound has 10% biofilm. 50% pink granulation with pink epithelial borders. Mild odor noted .Small amt seropurulent exudate noted. (L)1.4cm x (W)2cm. Full thickness pressure injury noted to plantar L hallux. Base of wound has 20% burgess slough with surrounding pink granulation. (+) maceration along borders. Small amt seropurulent exudate noted. Mild odor noted.(L)4.5cm x (W)2.5cm. Tx.Plan: Cleanse wounds L foot with Dakin's 0.125% daysi. Apply Dakin's moist gauze to wounds. Cover with ABD pads and wrap with Kerlix Twice daily and PRN. Cleanse wound R tibia with Dakin's 0.125% daysi.Apply Dakin's moist Gauze to wound. Apply Moisture Barrier periwound. Cover with Optifoam drsg Twice daily and prn. Cleanse wounds L trochanter,L ischium with Dakin's 0.125% daysi. Apply Dakin's moist 2-2 gauze into wound. Apply Moisture Barrier paste periwound. Cover with Optifoam drsg Twice daaily and prn. Apply Moisture Barrier to R ischium and sacrum. Cover each site with Optifoam drsg. Change every 3 days and prn. Cleanse L earlobe with Saline. Apply Therahoney with rolled Gauze. Cover with Optifoam drsg Daily and prn. APM/KAVON mattress overlay. Soft Pillow behind Knees to off-load heels. Reposition at least every 2hours or as tolerated. Rios Quiñones May 24, 2019 11:28
[2019-05-24 12:00] VITALS: BP 142/77
--- NOTE | 2019-05-24 12:24 | Cardiology Report ---
APPROVED REPORT EKG Measurement Heart [id number] Normal sinus rhythm Septal infarct, age undetermined Inferior infarct, age undetermined Abnormal ECG
--- NOTE | 2019-05-24 15:36 | General Progress Note ---
Assessment/Plan Assessment/Plan: 1:2 bottles GPC in clusters. GPC bacteremia - on IV Abx per ID. Pseudomonas Urosepsis on Zosyn per ID. Marasmus - see Nutrition Rec. Skin ulcers - GS consults. Subjective Allergies: Coded Allergies: No Known Allergies (Unverified , 02/25/19) Subjective More alert Objective Last 24 Hour Vital Signs Date Time Temp Pulse Resp B/P (MAP) Pulse Ox O2 Delivery O2 Flow Rate FiO2 05/24/19 12:00 76 05/24/19 12:00 97.5 78 18 142/77 (98) 99 05/24/19 09:01 94 152/88 05/24/19 09:00 Nasal Cannula 2.0 05/24/19 08:00 92 05/24/19 08:00 97.5 94 18 152/88 (109) 99 05/24/19 07:37 96 Nasal Cannula 2.0 28 05/24/19 07:37 74 20 96 Nasal Cannula 2.0 28 05/24/19 04:00 80 05/24/19 04:00 98.1 80 17 147/81 (103) 100 05/24/19 00:00 98.3 83 17 142/77 (98) 100 05/24/19 00:00 83 05/23/19 21:15 97 136/81 05/23/19 21:00 Nasal Cannula 2.0 05/23/19 20:00 97.7 93 16 136/81 (99) 99 05/23/19 20:00 93 05/23/19 19:35 76 20 95 Nasal Cannula 2.0 28 05/23/19 19:35 95 Nasal Cannula 2.0 28 05/23/19 16:00 97.7 96 15 147/79 (101) 96 05/23/19 16:00 83 Intake and Output 05/23/19 05/24/19 18:59 06:59 Output Total 700 ml 1000 ml Balance -700 ml -1000 ml Output Urine Total 700 ml 1000 ml Height (Feet): 5 Height (Inches): 4.00 Weight (Pounds): 119 Objective [place] CV RR Lungs B ronchi Abd Scaphoid, SNT. BS +. PEG in. Skin - multiple decubitus ulcers. E Extreme Muscle wasting. Contractures @ major joints. No CCE. Neuro obtunded. Nonfocal Shechter,Pagiel MD May 24, 2019 15:36
[2019-05-24 16:00] VITALS: BP 138/77
--- NOTE | 2019-05-24 19:42 | NUR ---
NURSE NOTES: Received pt and report from JOSE Castro. Observed pt resting in bed with both eyes closed. Pt is A/Ox0; nonverbal. security expert in placed, IV site intact, asymptomatic, and patent; currently running 1/2 NS w/KCL 20 mEq @ 50cc/hr. Pt is on G-tube feeding of Jevity 1.2 @ 45cc/hr (goal). Bed is in the lowest position and locked, call light within reach. No signs/symptoms of acute distress noted at this time. Will continue plan of care.
--- NOTE | 2019-05-24 19:46 | NUR ---
HAND-OFF: Report given to Maria De Jesus RN.Patient is in stable condition
[2019-05-24 20:00] VITALS: BP 149/89
[2019-05-25] VITALS: BP 140/83
[2019-05-25 04:00] VITALS: BP 131/87
[2019-05-25 06:58] LABS: BASOPHILS % (AUTO) 0.6 % (0.0-2.0); EOSINOPHILS % (AUTO) 0.9 % (0.0-3.0); HEMATOCRIT 32.1 % (42.0-52.0); HEMOGLOBIN 9.7 G/DL (14.2-18.0); LYMPHOCYTES % (AUTO) 26.9 % (20.0-45.0); MEAN CORPUSCULAR VOLUME 75 FL (80-99); NEUTROPHILS % (AUTO) 62.6 % (45.0-75.0); PLATELET COUNT 363 K/UL (150-450); RED BLOOD COUNT 4.27 M/UL (4.70-6.10); RED CELL DISTRIBUTION WIDTH 19.3 % (11.6-14.8); WHITE BLOOD COUNT 5.4 K/UL (4.8-10.8)
--- NOTE | 2019-05-25 07:10 | NUR ---
NURSE NOTES: Received pt from Maria De Jesus RN. Patient is awake and resting in bed with HOB elevated, in no acute distress. IV site patent and intact. G-Tube is running at 45cc/hr and patient tolerating well. Bed is in lowest position, brakes engaged for safety. Will continue with plan of care.
--- NOTE | 2019-05-25 07:32 | NUR ---
HAND-OFF: Report given to JOSE Castro.
[2019-05-25 07:49] LABS: ANION GAP 7 mmol/L (5-15); BLOOD UREA NITROGEN 11 mg/dL (7-18); CALCIUM 8.2 MG/DL (8.5-10.1); CARBON DIOXIDE 25 MMOL/L (21-32); CHLORIDE 102 MMOL/L (98-107); CREATININE 0.6 MG/DL (0.55-1.30); POTASSIUM 4.2 MMOL/L (3.5-5.1); SODIUM 134 MMOL/L (136-145)
[2019-05-25 08:00] VITALS: BP 151/81
[2019-05-25] MEDS: Docusate 100mg/10ml Liq GT SCH (08:41)
[2019-05-25] MEDS: Ascorbic Acid 500mg tab GT SCH (08:41)
[2019-05-25] MEDS: Levofloxacin 500mg tab ORAL SCH (08:41)
[2019-05-25] MEDS: Metoprolol 25mg tab GT SCH ×2 (08:43→20:37)
[2019-05-25] MEDS: Dakin's 0.25% (Half Strength) 16oz TOPIC SCH ×2 (08:44→20:38)
[2019-05-25] MEDS: Heparin 5000 units/ml inj SUBQ SCH ×2 (08:44→20:36)
--- NOTE | 2019-05-25 10:07 | NUR ---
CASE MANAGEMENT: REVIEW 05/25/2019 SI: DEHYDRATION. UTI. ALOC 97.5 HR 104 RR 22 B/P 140/83 SATS 99% ON 2L/NC NA 134 CA 8.2 IS: IVF @ 50 mL/HR LOPRESSOR GT QAM LEVAQUIN PO QD : TO TELEMETRY
--- NOTE | 2019-05-25 11:17 | General Progress Note ---
Assessment/Plan Assessment/Plan: 1:2 bottles GPC in clusters. GPC bacteremia - on IV Abx per ID. Pseudomonas Urosepsis on Zosyn per ID. Marasmus - see Nutrition Rec. Skin ulcers - GS consulted. Subjective Allergies: Coded Allergies: No Known Allergies (Unverified , 02/25/19) Subjective More alert Objective Last 24 Hour Vital Signs Date Time Temp Pulse Resp B/P (MAP) Pulse Ox O2 Delivery O2 Flow Rate FiO2 05/25/19 09:00 Nasal Cannula 2.0 05/25/19 08:43 96 151/81 05/25/19 08:00 96 05/25/19 08:00 97.7 96 20 151/81 (104) 97 05/25/19 04:00 97.7 98 20 131/87 (102) 100 05/25/19 04:00 100 05/25/19 00:00 97.5 104 22 140/83 (102) 99 05/25/19 00:00 104 05/24/19 21:00 Nasal Cannula 2.0 05/24/19 20:55 98 149/89 05/24/19 20:28 98 20 97 Nasal Cannula 2.0 28 05/24/19 20:00 95 Nasal Cannula 2.0 28 05/24/19 20:00 97.4 108 20 149/89 (109) 99 05/24/19 20:00 106 05/24/19 16:00 98.1 94 18 138/77 (97) 98 05/24/19 16:00 95 05/24/19 12:00 76 05/24/19 12:00 97.5 78 18 142/77 (98) 99 Intake and Output 05/24/19 05/25/19 19:00 07:00 Intake Total 600 ml Output Total 600 ml 600 ml Balance -600 ml 0 ml Intake IV Total 600 ml Output Urine Total 600 ml 600 ml # Bowel Movements 1 Laboratory Tests 05/25/19 05:15: White Blood Count 5.4, Red Blood Count 4.27L, Hemoglobin 9.7L, Hematocrit 32.1L , Mean Corpuscular Volume 75L, Mean Corpuscular Hemoglobin 22.7L, Mean Corpuscular Hemoglobin Concent 30.1L, Red Cell Distribution Width 19.3H, Platelet Count 363, Mean Platelet Volume 5.9L, Neutrophils (%) (Auto) 62.6, Lymphocytes (%) (Auto) 26.9, Monocytes (%) (Auto) 9.0, Eosinophils (%) (Auto) 0.9, Basophils (%) (Auto) 0.6, Sodium Level 134L, Potassium Level 4.2, Chloride Level 102, Carbon Dioxide Level 25, Anion Gap 7, Blood Urea Nitrogen 11, Creatinine 0.6, Estimat Glomerular Filtration Rate , Glucose Level 87, Calcium Level 8.2L, Magnesium Level 1.8 Height (Feet): 5 Height (Inches): 4.00 Weight (Pounds): 119 Objective [place] CV RR Lungs B ronchi Abd Scaphoid, SNT. BS +. PEG in. Skin - multiple decubitus ulcers. E Extreme Muscle wasting. Contractures @ major joints. No CCE. Neuro obtunded. Nonfocal Ervin Mario MD May 25, 2019 11:17
[2019-05-25 12:00] VITALS: BP 140/77
--- NOTE | 2019-05-25 13:32 | Surgery Progress Note ---
Surgery Progress Note Subjective Additional Comments No acute events overnight, afebrile, hemodynamically stable, labs improving. Exam unchanged Objective Last 24 Hour Vital Signs Date Time Temp Pulse Resp B/P (MAP) Pulse Ox O2 Delivery O2 Flow Rate FiO2 05/25/19 12:00 77 05/25/19 12:00 97.3 75 20 140/77 (98) 100 05/25/19 09:00 Nasal Cannula 2.0 05/25/19 08:43 96 151/81 05/25/19 08:00 96 05/25/19 08:00 97.7 96 20 151/81 (104) 97 05/25/19 04:00 97.7 98 20 131/87 (102) 100 05/25/19 04:00 100 05/25/19 00:00 97.5 104 22 140/83 (102) 99 05/25/19 00:00 104 05/24/19 21:00 Nasal Cannula 2.0 05/24/19 20:55 98 149/89 05/24/19 20:28 98 20 97 Nasal Cannula 2.0 28 05/24/19 20:00 95 Nasal Cannula 2.0 28 05/24/19 20:00 97.4 108 20 149/89 (109) 99 05/24/19 20:00 106 05/24/19 16:00 98.1 94 18 138/77 (97) 98 05/24/19 16:00 95 I&O Intake and Output 05/24/19 05/25/19 19:00 07:00 Intake Total 600 ml Output Total 600 ml 600 ml Balance -600 ml 0 ml Intake IV Total 600 ml Output Urine Total 600 ml 600 ml # Bowel Movements 1 Dressing: saturated Wound: other Drains: other Cardiovascular: RSR Respiratory: decreased breath sounds Abdomen: soft, present bowel sounds, non-distended Extremities: no cyanosis, other Laboratory Tests Test 05/25/19 05:15 White Blood Count 5.4 K/UL (4.8-10.8) Red Blood Count 4.27 M/UL (4.70-6.10) L Hemoglobin 9.7 G/DL (14.2-18.0) L Hematocrit 32.1 % (42.0-52.0) L Mean Corpuscular Volume 75 FL (80-99) L Mean Corpuscular Hemoglobin 22.7 PG (27.0-31.0) L Mean Corpuscular Hemoglobin Concent 30.1 G/DL (32.0-36.0) L Red Cell Distribution Width 19.3 % (11.6-14.8) H Platelet Count 363 K/UL (150-450) Mean Platelet Volume 5.9 FL (6.5-10.1) L Neutrophils (%) (Auto) 62.6 % (45.0-75.0) Lymphocytes (%) (Auto) 26.9 % (20.0-45.0) Monocytes (%) (Auto) 9.0 % (1.0-10.0) Eosinophils (%) (Auto) 0.9 % (0.0-3.0) Basophils (%) (Auto) 0.6 % (0.0-2.0) Sodium Level 134 MMOL/L (136-145) L Potassium Level 4.2 MMOL/L (3.5-5.1) Chloride Level 102 MMOL/L (98-107) Carbon Dioxide Level 25 MMOL/L (21-32) Anion Gap 7 mmol/L (5-15) Blood Urea Nitrogen 11 mg/dL (7-18) Creatinine 0.6 MG/DL (0.55-1.30) Estimat Glomerular Filtration Rate mL/min (>60) Glucose Level 87 MG/DL (74-106) Calcium Level 8.2 MG/DL (8.5-10.1) L Magnesium Level 1.8 MG/DL (1.8-2.4) Plan Problems: (1) UTI (urinary tract infection) Assessment & Plan: UA noted cultures noted Abx as per ID (2) Altered level of consciousness (3) Ulcer of lower extremity excluding decubitus ulcer (4) Dehydration (5) Sinus tachycardia (6) Anemia (7) Pyelonephritis (8) Pneumonia (9) Severe sepsis (10) Hypokalemia (11) Hypokalemia (12) Alzheimer disease (13) Dysphagia (14) Sepsis (15) Gastroparesis Assessment & Plan: cont feeds as tolerated needs nutritional support for healing DAILY ESTIMATED NEEDS: Needs based on multiple wounds, underweight 50.5kg 30-35 kcals/kg 5748-6427 total kcals 1.5-2.0 g protein/kg 76-101 g total protein 25-30 mL/kg 6886-5850 total fluid mLs NUTRITION DIAGNOSIS: * Increased kcal/pro needs R/T wound healing as evidenced by pt admitted w/ multiple full thickness wounds, refer to wound eval. * Swallowing difficulty R/T dysphagia as evidenced by pt GT dep for all nutritional needs. (CURRENT TF: Jevity 1.2 @ 45ml/hr x 24 hrs) ENTERAL NUTRITION RECOMMENDATIONS: Jevity 1.2 @ 60ml/hr x 24 hrs + Prosource 1pkt daily to provide 1440ml, 1728kcal, 80g+11g prot, 1162ml free water * REC TO INCREASE TF to goal rate of 60ml/hr x 24 hrs * Add Prosource 1pkt daily to better meet protein needs * HOB over 30 degrees/ water flush per MD ------ ADDITIONAL RECOMMENDATIONS: * Calibrated bedscale wt for accurate CBW * WOUND HEALING: Continue Vit C + ZnSO4 220mg daily x10 days, Simon 1pkt BID * Updated labs as able * INCREASE TF RATE PER REC ABOVE (16) Encounter for PEG (percutaneous endoscopic gastrostomy) (17) Malfunction of gastrostomy tube (18) Proteus septicemia (19) Decubitus ulcer of trochanteric region of left hip Assessment & Plan: Pt presented on admission with contractures, multiple pressure injuries. Full thickness pressure injury noted to upper cleft L earlobe.Base of wound 90% viable and moist with 10% slough at base.(L)1.5cm x (W00.6cm x (D)0.6cm. Non-blanchable erythema noted to cleft of [place]. Full thickness pressure injury L ischium .Base of wound has 90%pink granulation, 10% slough. Edges flat and adherent to base of wound.Dry pink epithelial borders. Periwound without erythema,induration .(L)2.5cm x (W)1.5cm. Resolving pressure injury R ischium. Dry pink epithelial base of wound .(L)4cm x (W)3.5cm. Hyperpigmentation from previous wounds noted to sacrum. Full thickness pressure injury with undermining L trochanter. [place] granulation with bone exposure at base of wound. Small amt non-odorous serous exudate noted (L)3.5cm x (W)3.5cm x (D)1.4cm ,undermining clockwise 12-12 by 3.8cm @12o' clock.Periwound without erythema or induration. Full thickness pressure injury idalia R tibia(L)9cm x (W)2.5cm. 100% pink granulation noted to base of wound. Edges flat and adherent to base of wound .Bone is palpable. Small amt non-odorous serous exudate noted. full thickness pressure injury Lateral L foot extending from L heel to distal / lateral L foot . Base of wound has approx 60% beefy red granulation intertwined with areas of mixed slough and necrosis.Edges macerated .Mild odor noted. (L)( 9cm x (W) 20cm.Periwound without erythema but L foot is edematous.Dorsal as[ pect of L foot noted to have dark brown discoloration. Full thickness pressure injury noted to distal/plantar aspect of L foot. Base of wound has 10% biofilm. 50% pink granulation with pink epithelial borders. Mild odor noted .Small amt seropurulent exudate noted. (L)1.4cm x (W)2cm. Full thickness pressure injury noted to plantar L hallux. Base of wound has 20% burgess slough with surrounding pink granulation. (+) maceration along borders. Small amt seropurulent exudate noted. Mild odor noted.(L)4.5cm x (W)2.5cm. Tx.Plan: Cleanse wounds L foot with Dakin's 0.125% daysi. Apply Dakin's moist gauze to wounds. Cover with ABD pads and wrap with Kerlix Twice daily and PRN. Cleanse wound R tibia with Dakin's 0.125% daysi.Apply Dakin's moist Gauze to wound. Apply Moisture Barrier periwound. Cover with Optifoam drsg Twice daily and prn. Cleanse wounds L trochanter,L ischium with Dakin's 0.125% daysi. Apply Dakin's moist 2-2 gauze into wound. Apply Moisture Barrier paste periwound. Cover with Optifoam drsg Twice daaily and prn. Apply Moisture Barrier to R ischium and sacrum. Cover each site with Optifoam drsg. Change every 3 days and prn. Cleanse L earlobe with Saline. Apply Therahoney with rolled Gauze. Cover with Optifoam drsg Daily and prn. APM/KAVON mattress overlay. Soft Pillow behind Knees to off-load heels. Reposition at least every 2hours or as tolerated. Rios Quiñones May 25, 2019 13:32
[2019-05-25] MEDS: 1/2NS w/KCl 20mEq 1000ml 1,000 ML IV SCH (13:54)
[2019-05-25] MEDS ORDERED: Tubing IV Secondary IV ONE (15:35)
[2019-05-25 16:00] VITALS: BP 126/74
--- NOTE | 2019-05-25 19:10 | NUR ---
HAND-OFF: Report given to JOSE Lopez.Patient is in stable condition.
--- NOTE | 2019-05-25 19:30 | NUR ---
NURSE NOTES: received pt from Gabi Castro. pt in bed. no acute distress noted. no s/s of aspiration. bed locked and lowest position. bedside rail up x2.aspiration precaution in place. will continue to monitor pt for any change in condition.
[2019-05-25 20:00] VITALS: BP 138/91
[2019-05-26] VITALS: BP 133/84
--- NOTE | 2019-05-26 | NUR ---
NURSE NOTES: pt sleeping. no change in condition. no residual obtained from Gtube feeding. will continue to monitor for any change in condition.
[2019-05-26 04:00] VITALS: BP 133/78
--- NOTE | 2019-05-26 04:00 | NUR ---
NURSE NOTES: pt in bed sleeping. no residual from gtube feeding. wound care provided. will continue to monitor for any change in condition.
--- NOTE | 2019-05-26 06:28 | NUR ---
NURSE NOTES: pt remains stable, no change in condition, no residual from Gtube feeding. all needs met during my shift. bed locked and lowest position. bed side rail up x2. will endorse plan of care to incoming nurse.
--- NOTE | 2019-05-26 07:33 | NUR ---
NURSE NOTES: received patient report from harpreet garcia. patient is on bed awake. not in acute distress. in GTF feeding at prescribed rate. had 10 seconds of vtach at 0436 today, hotel night auditor nurse will leave a message to dr guerrero.bed is low and locked for safety. will continue plan of care.
--- NOTE | 2019-05-26 07:41 | NUR ---
NURSE NOTES: made DR Mario aware around 5 AM pt had 10 sec V Tach episode, after that no more episodes of v tach, day shift nurse Jessica aware.
--- NOTE | 2019-05-26 07:42 | NUR ---
HAND-OFF: Report given to JOSE Lopez.
[2019-05-26 08:00] VITALS: BP 144/84
[2019-05-26] MEDS: Levofloxacin 500mg tab ORAL SCH (08:47)
[2019-05-26] MEDS: Ascorbic Acid 500mg tab GT SCH (08:47)
[2019-05-26] MEDS: Metoprolol 25mg tab GT SCH ×2 (08:47→20:42)
[2019-05-26] MEDS: Docusate 100mg/10ml Liq GT SCH (08:47)
[2019-05-26] MEDS: Heparin 5000 units/ml inj SUBQ SCH ×2 (08:48→20:42)
[2019-05-26] MEDS: Dakin's 0.25% (Half Strength) 16oz TOPIC SCH ×2 (08:48→20:43)
--- NOTE | 2019-05-26 09:12 | Infectious Diseases Prog Note ---
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 AMS Alzheimer disease Pressure ulcers Anemia P: Continue Levaquin X 1 day Will f/u cultures Subjective ROS Limited/Unobtainable: Yes Constitutional: Denies: fever Allergies: Coded Allergies: No Known Allergies (Unverified , 02/25/19) Objective Vital Signs Last 24 Hour Vital Signs Date Time Temp Pulse Resp B/P (MAP) Pulse Ox O2 Delivery O2 Flow Rate FiO2 05/26/19 08:47 99 144/84 05/26/19 08:00 97.9 99 20 144/84 (104) 98 05/26/19 04:00 95 05/26/19 04:00 97.6 100 17 133/78 (96) 99 05/26/19 00:00 95 05/26/19 00:00 97.8 96 17 133/84 (100) 98 05/25/19 21:03 99 Nasal Cannula 2.0 28 05/25/19 21:03 89 20 99 Nasal Cannula 2.0 28 05/25/19 21:00 Nasal Cannula 2.0 05/25/19 20:37 102 138/91 05/25/19 20:00 97 05/25/19 20:00 98.9 107 17 138/91 (107) 94 05/25/19 16:00 96.8 79 20 126/74 (91) 100 05/25/19 16:00 80 05/25/19 12:00 77 05/25/19 12:00 97.3 75 20 140/77 (98) 100 Height (Feet): 5 Height (Inches): 4.00 Weight (Pounds): 119 General Appearance: no acute distress HEENT: mucous membranes moist Respiratory/Chest: lungs clear Cardiovascular: normal rate Abdomen: soft, non tender, other - GT feeding Extremities: no edema, other - contracted legs Skin: ulcers, other - more sever in left foot Neurologic/Psychiatric: aphasia Current Medications Medications (Trade) Dose Ordered Sig/Mckenzie Route PRN Reason Start Time Stop Time Status Last Admin Dose Admin Acetaminophen (Tylenol) 500 mg Q6H PRN ORAL Mild Pain/Temp > 100.5 05/21/19 17:00 06/20/19 16:59 Albuterol/ Ipratropium (Albuterol/ Ipratropium) 3 ml Q4H PRN HHN Shortness of Breath 05/21/19 17:00 05/26/19 16:59 Ascorbic Acid (Vitamin C) 500 mg DAILY GT 05/22/19 09:00 06/21/19 08:59 05/26/19 08:47 Dextrose (Dextrose 50%) 25 ml Q30M PRN IV Hypoglycemia 05/21/19 17:00 06/20/19 16:59 Dextrose (Dextrose 50%) 50 ml Q30M PRN IV Hypoglycemia 05/21/19 17:00 06/20/19 16:59 Docusate Sodium (Colace) 100 mg DAILY GT 05/22/19 09:00 06/21/19 08:59 05/26/19 08:47 Heparin Sodium (Porcine) (Heparin 5000 units/ml) 5,000 units EVERY 12 HOURS SUBQ 05/21/19 21:00 06/20/19 20:59 05/26/19 08:48 Lansoprazole (Prevacid) 30 mg ACBREAKFAST GT 05/26/19 06:30 06/25/19 06:29 05/26/19 05:40 Levofloxacin (Levaquin) 500 mg DAILY ORAL 05/24/19 10:45 05/27/19 23:59 05/26/19 08:47 Metoprolol Tartrate (Lopressor) 25 mg EVERY 12 HOURS GT 05/21/19 21:00 06/20/19 20:59 05/26/19 08:47 Sodium 1,000 ml @ 50 mls/hr Q20H IV 05/21/19 18:00 06/20/19 17:59 05/25/19 13:54 Sodium Hypochlorite (Dakin's Half Strength) 1 applic Q12HR TOPIC 05/21/19 21:00 06/20/19 20:59 05/26/19 08:48 Lev Pardo MD May 26, 2019 09:12
[2019-05-26 12:00] VITALS: BP 102/60
--- NOTE | 2019-05-26 12:17 | Surgery Progress Note ---
Surgery Progress Note Objective Last 24 Hour Vital Signs Date Time Temp Pulse Resp B/P (MAP) Pulse Ox O2 Delivery O2 Flow Rate FiO2 05/26/19 12:00 97.3 82 20 102/60 (74) 99 05/26/19 09:00 Nasal Cannula 2.0 05/26/19 08:47 99 144/84 05/26/19 08:10 80 20 96 Nasal Cannula 2.0 28 05/26/19 08:10 96 Nasal Cannula 2.0 28 05/26/19 08:00 97.9 99 20 144/84 (104) 98 05/26/19 08:00 87 05/26/19 04:00 95 05/26/19 04:00 97.6 100 17 133/78 (96) 99 05/26/19 00:00 95 05/26/19 00:00 97.8 96 17 133/84 (100) 98 05/25/19 21:03 99 Nasal Cannula 2.0 28 05/25/19 21:03 89 20 99 Nasal Cannula 2.0 28 05/25/19 21:00 Nasal Cannula 2.0 05/25/19 20:37 102 138/91 05/25/19 20:00 97 05/25/19 20:00 98.9 107 17 138/91 (107) 94 05/25/19 16:00 96.8 79 20 126/74 (91) 100 05/25/19 16:00 80 I&O Intake and Output 05/25/19 05/26/19 19:00 07:00 Intake Total 1090 ml Output Total 200 ml Balance 890 ml Intake IV Total 550 ml Tube Feeding 540 ml Output Urine Total 200 ml # Voids 3 Dressing: saturated Wound: clean Cardiovascular: RSR Respiratory: clear Abdomen: soft, flat, non-tender, present bowel sounds Extremities: no cyanosis, other Plan Problems: (1) UTI (urinary tract infection) Assessment & Plan: UA noted cultures noted Abx as per ID (2) Altered level of consciousness (3) Ulcer of lower extremity excluding decubitus ulcer (4) Dehydration (5) Sinus tachycardia (6) Anemia (7) Pyelonephritis (8) Pneumonia (9) Severe sepsis (10) Hypokalemia (11) Hypokalemia (12) Alzheimer disease (13) Dysphagia (14) Sepsis (15) Gastroparesis Assessment & Plan: cont feeds as tolerated needs nutritional support for healing DAILY ESTIMATED NEEDS: Needs based on multiple wounds, underweight 50.5kg 30-35 kcals/kg 5818-1353 total kcals 1.5-2.0 g protein/kg 76-101 g total protein 25-30 mL/kg 0890-6661 total fluid mLs NUTRITION DIAGNOSIS: * Increased kcal/pro needs R/T wound healing as evidenced by pt admitted w/ multiple full thickness wounds, refer to wound eval. * Swallowing difficulty R/T dysphagia as evidenced by pt GT dep for all nutritional needs. (CURRENT TF: Jevity 1.2 @ 45ml/hr x 24 hrs) ENTERAL NUTRITION RECOMMENDATIONS: Jevity 1.2 @ 60ml/hr x 24 hrs + Prosource 1pkt daily to provide 1440ml, 1728kcal, 80g+11g prot, 1162ml free water * REC TO INCREASE TF to goal rate of 60ml/hr x 24 hrs * Add Prosource 1pkt daily to better meet protein needs * HOB over 30 degrees/ water flush per MD ------ ADDITIONAL RECOMMENDATIONS: * Calibrated bedscale wt for accurate CBW * WOUND HEALING: Continue Vit C + ZnSO4 220mg daily x10 days, Simon 1pkt BID * Updated labs as able * INCREASE TF RATE PER REC ABOVE (16) Encounter for PEG (percutaneous endoscopic gastrostomy) (17) Malfunction of gastrostomy tube (18) Proteus septicemia (19) Decubitus ulcer of trochanteric region of left hip Assessment & Plan: Pt presented on admission with contractures, multiple pressure injuries. Full thickness pressure injury noted to upper cleft L earlobe.Base of wound 90% viable and moist with 10% slough at base.(L)1.5cm x (W00.6cm x (D)0.6cm. Non-blanchable erythema noted to cleft of Earlobe. Full thickness pressure injury L ischium .Base of wound has 90%pink granulation, 10% slough. Edges flat and adherent to base of wound.Dry pink epithelial borders. Periwound without erythema,induration .(L)2.5cm x (W)1.5cm. Resolving pressure injury R ischium. Dry pink epithelial base of wound .(L)4cm x (W)3.5cm. Hyperpigmentation from previous wounds noted to sacrum. Full thickness pressure injury with undermining L trochanter. Gaston granulation with bone exposure at base of wound. Small amt non-odorous serous exudate noted (L)3.5cm x (W)3.5cm x (D)1.4cm ,undermining clockwise 12-12 by 3.8cm @12o' clock.Periwound without erythema or induration. Full thickness pressure injury idalia R tibia(L)9cm x (W)2.5cm. 100% pink granulation noted to base of wound. Edges flat and adherent to base of wound .Bone is palpable. Small amt non-odorous serous exudate noted. full thickness pressure injury Lateral L foot extending from L heel to distal / lateral L foot . Base of wound has approx 60% beefy red granulation intertwined with areas of mixed slough and necrosis.Edges macerated .Mild odor noted. (L)( 9cm x (W) 20cm.Periwound without erythema but L foot is edematous.Dorsal as[ pect of L foot noted to have dark brown discoloration. Full thickness pressure injury noted to distal/plantar aspect of L foot. Base of wound has 10% biofilm. 50% pink granulation with pink epithelial borders. Mild odor noted .Small amt seropurulent exudate noted. (L)1.4cm x (W)2cm. Full thickness pressure injury noted to plantar L hallux. Base of wound has 20% burgess slough with surrounding pink granulation. (+) maceration along borders. Small amt seropurulent exudate noted. Mild odor noted.(L)4.5cm x (W)2.5cm. Tx.Plan: Cleanse wounds L foot with Dakin's 0.125% daysi. Apply Dakin's moist gauze to wounds. Cover with ABD pads and wrap with Kerlix Twice daily and PRN. Cleanse wound R tibia with Dakin's 0.125% daysi.Apply Dakin's moist Gauze to wound. Apply Moisture Barrier periwound. Cover with Optifoam drsg Twice daily and prn. Cleanse wounds L trochanter,L ischium with Dakin's 0.125% daysi. Apply Dakin's moist 2-2 gauze into wound. Apply Moisture Barrier paste periwound. Cover with Optifoam drsg Twice daaily and prn. Apply Moisture Barrier to R ischium and sacrum. Cover each site with Optifoam drsg. Change every 3 days and prn. Cleanse L earlobe with Saline. Apply Therahoney with rolled Gauze. Cover with Optifoam drsg Daily and prn. APM/KAVON mattress overlay. Soft Pillow behind Knees to off-load heels. Reposition at least every 2hours or as tolerated. Rios Qiuñones May 26, 2019 12:17
--- NOTE | 2019-05-26 12:57 | General Progress Note ---
Assessment/Plan Assessment/Plan: Pseudomonas Urosepsis on Zosyn per ID. Marasmus - see Nutrition Rec. Skin ulcers - GS consulted. Subjective Allergies: Coded Allergies: No Known Allergies (Unverified , 02/25/19) Subjective More alert Objective Last 24 Hour Vital Signs Date Time Temp Pulse Resp B/P (MAP) Pulse Ox O2 Delivery O2 Flow Rate FiO2 05/26/19 12:00 97.3 82 20 102/60 (74) 99 05/26/19 09:00 Nasal Cannula 2.0 05/26/19 08:47 99 144/84 05/26/19 08:10 80 20 96 Nasal Cannula 2.0 28 05/26/19 08:10 96 Nasal Cannula 2.0 28 05/26/19 08:00 97.9 99 20 144/84 (104) 98 05/26/19 08:00 87 05/26/19 04:00 95 05/26/19 04:00 97.6 100 17 133/78 (96) 99 05/26/19 00:00 95 05/26/19 00:00 97.8 96 17 133/84 (100) 98 05/25/19 21:03 99 Nasal Cannula 2.0 28 05/25/19 21:03 89 20 99 Nasal Cannula 2.0 28 05/25/19 21:00 Nasal Cannula 2.0 05/25/19 20:37 102 138/91 05/25/19 20:00 97 05/25/19 20:00 98.9 107 17 138/91 (107) 94 05/25/19 16:00 96.8 79 20 126/74 (91) 100 05/25/19 16:00 80 Intake and Output 05/25/19 05/26/19 19:00 07:00 Intake Total 1090 ml Output Total 200 ml Balance 890 ml Intake IV Total 550 ml Tube Feeding 540 ml Output Urine Total 200 ml # Voids 3 Height (Feet): 5 Height (Inches): 4.00 Weight (Pounds): 119 Objective Marantic CV RR Lungs B ronchi Abd Scaphoid, SNT. BS +. PEG in. Skin - multiple decubitus ulcers. E Extreme Muscle wasting. Contractures @ major joints. No CCE. Neuro obtunded. Nonfocal Ervin Mario MD May 26, 2019 12:57
--- NOTE | 2019-05-26 13:30 | NUR ---
NURSE NOTES: per dr guerrero, continue IV hydration with 20meqs KCL for K level 4.2 today. will continue to monitor.
[2019-05-26] MEDS: 1/2NS w/KCl 20mEq 1000ml 1,000 ML IV SCH (15:56)
[2019-05-26 16:00] VITALS: BP 134/72
--- NOTE | 2019-05-26 19:02 | NUR ---
HAND-OFF: Report given to harpreet garcia.
--- NOTE | 2019-05-26 19:15 | NUR ---
NURSE NOTES: received pt from Gabi Lopez. pt AOx1. nonverbal and very contracted. no acute distress. no change in condition during the day. bed locked and lowest position, bedside rail up x 2. aspiration precautions in place. will continue to monitor for any change in condition.
[2019-05-26 20:00] VITALS: BP 128/78
--- NOTE | 2019-05-26 23:09 | CDS Physician Query ---
Clarification is required for compliance, coding accuracy, and to reflect severity of illness for this patient Dear Dr. Mario Date: 05/26/2019 CDS Name: Roberto Alexander "Urosepsis" is documented in H&P and progress notes. On admission; RR: 20 HR: 92 Blood culture: Staph Hominis Rx: IV Zosyn, Vancomycin Please clarify if you mean: [ ] Urinary Tract Infection (UTI) only [ X] Sepsis due to UTI [ ] Septicemia due to UTI [ ] Other [ ] Clinically Undetermined Present on Admission: [ X ] Yes [ ] No [ ] Clinically Undetermined Physician signature Date Please also document in your Progress Notes and/or Discharge Summary and indicate if the condition was present on admission. MTDD
[2019-05-27] VITALS: BP 142/80
--- NOTE | 2019-05-27 00:26 | NUR ---
NURSE NOTES: pt in the bed resting comfortable. no change in condition. will continue to monitor for any change in condition.
[2019-05-27 04:00] VITALS: BP 143/85
--- NOTE | 2019-05-27 04:00 | NUR ---
NURSE NOTES: pt in bed resting, no change in condition. no s/s of painn or discomfort. no gtube feeding residual at this time. will continue to monitor for any change in condition.
--- NOTE | 2019-05-27 06:53 | NUR ---
NURSE NOTES: pt remains stable, no change in condition. gtube infusing gtube feeding, no residual during my shift. bed locked and lowest position, bedside rail up x 2, aspiration precaution in place. will endorse plan of care to incoming nurse.
--- NOTE | 2019-05-27 07:33 | NUR ---
HAND-OFF: Report given to JOSE Tovar.
--- NOTE | 2019-05-27 07:39 | NUR ---
NURSE NOTES: Patient is asleep. No s/s of distress. HOB is elevated. Tube feeding is running at 60ml/hr. IV is intact. Will continue to monitor.
[2019-05-27 08:00] VITALS: BP 142/84
[2019-05-27] MEDS: Levofloxacin 500mg tab ORAL SCH (08:13)
[2019-05-27] MEDS: Metoprolol 25mg tab GT SCH (08:14)
[2019-05-27] MEDS: Docusate 100mg/10ml Liq GT SCH (08:14)
[2019-05-27] MEDS: Ascorbic Acid 500mg tab GT SCH (08:14)
[2019-05-27] MEDS: Heparin 5000 units/ml inj SUBQ SCH (08:15)
[2019-05-27] MEDS: Dakin's 0.25% (Half Strength) 16oz TOPIC SCH (08:15)
--- NOTE | 2019-05-27 11:18 | NUR ---
RD ASSESSMENT & RECOMMENDATIONS SEE CARE ACTIVITY FOR COMPLETE ASSESSMENT DAILY ESTIMATED NEEDS: Needs based on multiple wounds, underweight 50.5kg 30-35 kcals/kg 7805-1755 total kcals 1.5-2.0 g protein/kg 76-101 g total protein 25-30 mL/kg 9015-7869 total fluid mLs NUTRITION DIAGNOSIS: * Increased kcal/pro needs R/T wound healing as evidenced by pt admitted w/ multiple full thickness wounds, refer to wound eval. * Swallowing difficulty R/T dysphagia as evidenced by pt GT dep for all nutritional needs. ENTERAL NUTRITION RECOMMENDATIONS: Jevity 1.2 @ 60ml/hr x 24 hrs + Prosource 1pkt daily to provide 1440ml, 1728kcal, 80g+11g prot, 1162ml free water * Maintain goal rate of 60ml/hr x 24 hrs * Add Prosource 1pkt daily to better meet protein needs * HOB over 30 degrees/ water flush per MD ADDITIONAL RECOMMENDATIONS: * Calibrated bedscale wt for accurate CBW * WOUND HEALING: Continue Vit C + ZnSO4 220mg daily x10 days, Simon 1pkt BID * Updated labs as able- monitor lytes, BG w/ increased TF rate * UPDATED bed scale wt . .
--- NOTE | 2019-05-27 11:18 | Infectious Diseases Prog Note ---
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 AMS Alzheimer disease Pressure ulcers Anemia P: Discontinue Levaquin Observe off antibiotic Subjective ROS Limited/Unobtainable: Yes Constitutional: Denies: fever Allergies: Coded Allergies: No Known Allergies (Unverified , 02/25/19) Objective Vital Signs Last 24 Hour Vital Signs Date Time Temp Pulse Resp B/P (MAP) Pulse Ox O2 Delivery O2 Flow Rate FiO2 05/27/19 08:14 105 134/71 05/27/19 08:00 97 05/27/19 08:00 98.0 107 18 142/84 (103) 97 05/27/19 08:00 Nasal Cannula 2.0 05/27/19 07:55 98 18 95 Nasal Cannula 2.0 28 05/27/19 07:54 95 Nasal Cannula 2.0 28 05/27/19 04:00 100 05/27/19 04:00 98.4 98 22 143/85 (104) 98 05/27/19 00:00 98.0 94 20 142/80 (100) 95 05/27/19 00:00 90 05/26/19 21:00 Nasal Cannula 2.0 05/26/19 20:42 103 128/78 05/26/19 20:00 98.0 103 20 128/78 (95) 95 05/26/19 20:00 97 05/26/19 19:30 71 18 94 Nasal Cannula 2.0 28 05/26/19 19:30 94 Nasal Cannula 2.0 28 05/26/19 16:00 92 05/26/19 16:00 97.9 94 20 134/72 (92) 95 05/26/19 12:00 97.3 82 20 102/60 (74) 99 05/26/19 12:00 78 Height (Feet): 5 Height (Inches): 4.00 Weight (Pounds): 119 General Appearance: cachetic HEENT: mucous membranes moist Respiratory/Chest: lungs clear Cardiovascular: normal rate Abdomen: soft, non tender, other - Gtfeeding Extremities: no edema, other - cotracture of legs Skin: ulcers Neurologic/Psychiatric: alert, aphasia Current Medications Medications (Trade) Dose Ordered Sig/Mckenzie Route PRN Reason Start Time Stop Time Status Last Admin Dose Admin Acetaminophen (Tylenol) 500 mg Q6H PRN ORAL Mild Pain/Temp > 100.5 05/21/19 17:00 06/20/19 16:59 Ascorbic Acid (Vitamin C) 500 mg DAILY GT 05/22/19 09:00 06/21/19 08:59 05/27/19 08:14 Dextrose (Dextrose 50%) 25 ml Q30M PRN IV Hypoglycemia 05/21/19 17:00 06/20/19 16:59 Dextrose (Dextrose 50%) 50 ml Q30M PRN IV Hypoglycemia 05/21/19 17:00 06/20/19 16:59 Docusate Sodium (Colace) 100 mg DAILY GT 05/22/19 09:00 06/21/19 08:59 05/27/19 08:14 Heparin Sodium (Porcine) (Heparin 5000 units/ml) 5,000 units EVERY 12 HOURS SUBQ 05/21/19 21:00 06/20/19 20:59 05/27/19 08:15 Lansoprazole (Prevacid) 30 mg ACBREAKFAST GT 05/26/19 06:30 06/25/19 06:29 05/27/19 05:45 Levofloxacin (Levaquin) 500 mg DAILY ORAL 05/24/19 10:45 05/27/19 23:59 05/27/19 08:13 Metoprolol Tartrate (Lopressor) 25 mg EVERY 12 HOURS GT 05/21/19 21:00 06/20/19 20:59 05/27/19 08:14 Sodium 1,000 ml @ 50 mls/hr Q20H IV 05/21/19 18:00 06/20/19 17:59 05/26/19 15:56 Sodium Hypochlorite (Dakin's Half Strength) 1 applic Q12HR TOPIC 05/21/19 21:00 06/20/19 20:59 05/27/19 08:15 Lev Pardo MD May 27, 2019 11:17
--- NOTE | 2019-05-27 11:29 | General Progress Note ---
Assessment/Plan Assessment/Plan: Pseudomonas Urosepsis on Zosyn per ID. Marasmus - see Nutrition Rec. Skin ulcers - GS consulted. Subjective Allergies: Coded Allergies: No Known Allergies (Unverified , 02/25/19) Subjective More alert Objective Last 24 Hour Vital Signs Date Time Temp Pulse Resp B/P (MAP) Pulse Ox O2 Delivery O2 Flow Rate FiO2 05/27/19 08:14 105 134/71 05/27/19 08:00 97 05/27/19 08:00 98.0 107 18 142/84 (103) 97 05/27/19 08:00 Nasal Cannula 2.0 05/27/19 07:55 98 18 95 Nasal Cannula 2.0 28 05/27/19 07:54 95 Nasal Cannula 2.0 28 05/27/19 04:00 100 05/27/19 04:00 98.4 98 22 143/85 (104) 98 05/27/19 00:00 98.0 94 20 142/80 (100) 95 05/27/19 00:00 90 05/26/19 21:00 Nasal Cannula 2.0 05/26/19 20:42 103 128/78 05/26/19 20:00 98.0 103 20 128/78 (95) 95 05/26/19 20:00 97 05/26/19 19:30 71 18 94 Nasal Cannula 2.0 28 05/26/19 19:30 94 Nasal Cannula 2.0 28 05/26/19 16:00 92 05/26/19 16:00 97.9 94 20 134/72 (92) 95 05/26/19 12:00 97.3 82 20 102/60 (74) 99 05/26/19 12:00 78 Intake and Output 05/26/19 05/27/19 19:00 07:00 Intake Total 1495 ml 1710 ml Output Total 950 ml 550 ml Balance 545 ml 1160 ml Intake Free Water 250 ml 500 ml IV Total 600 ml 550 ml Tube Feeding 645 ml 660 ml Output Urine Total 950 ml 550 ml # Voids 2 Height (Feet): 5 Height (Inches): 4.00 Weight (Pounds): 119 Objective Marantic CV RR Lungs B ronchi Abd Scaphoid, SNT. BS +. PEG in. Skin - multiple decubitus ulcers. E Extreme Muscle wasting. Contractures @ major joints. No CCE. Neuro obtunded. Nonfocal Ervin Mario MD May 27, 2019 11:29
--- NOTE | 2019-05-27 11:30 | General Progress Note ---
Assessment/Plan Assessment/Plan: Pseudomonas Urosepsis on Oral Levaquin. Marasmus - see Nutrition Rec. Skin ulcers - GS consulted. DC to SNF. Subjective Allergies: Coded Allergies: No Known Allergies (Unverified , 02/25/19) Subjective More alert Objective Last 24 Hour Vital Signs Date Time Temp Pulse Resp B/P (MAP) Pulse Ox O2 Delivery O2 Flow Rate FiO2 05/27/19 08:14 105 134/71 05/27/19 08:00 97 05/27/19 08:00 98.0 107 18 142/84 (103) 97 05/27/19 08:00 Nasal Cannula 2.0 05/27/19 07:55 98 18 95 Nasal Cannula 2.0 28 05/27/19 07:54 95 Nasal Cannula 2.0 28 05/27/19 04:00 100 05/27/19 04:00 98.4 98 22 143/85 (104) 98 05/27/19 00:00 98.0 94 20 142/80 (100) 95 05/27/19 00:00 90 05/26/19 21:00 Nasal Cannula 2.0 05/26/19 20:42 103 128/78 05/26/19 20:00 98.0 103 20 128/78 (95) 95 05/26/19 20:00 97 05/26/19 19:30 71 18 94 Nasal Cannula 2.0 28 05/26/19 19:30 94 Nasal Cannula 2.0 28 05/26/19 16:00 92 05/26/19 16:00 97.9 94 20 134/72 (92) 95 05/26/19 12:00 97.3 82 20 102/60 (74) 99 05/26/19 12:00 78 Intake and Output 05/26/19 05/27/19 19:00 07:00 Intake Total 1495 ml 1710 ml Output Total 950 ml 550 ml Balance 545 ml 1160 ml Intake Free Water 250 ml 500 ml IV Total 600 ml 550 ml Tube Feeding 645 ml 660 ml Output Urine Total 950 ml 550 ml # Voids 2 Height (Feet): 5 Height (Inches): 4.00 Weight (Pounds): 119 Objective Mar[place] CV RR Lungs B ronchi Abd Scaphoid, SNT. BS +. PEG in. Skin - multiple decubitus ulcers. E Extreme Muscle wasting. Contractures @ major joints. No CCE. Neuro obtunded. Nonfocal Ervin Mario MD May 27, 2019 11:30
--- NOTE | 2019-05-27 11:49 | NUR ---
DISCHARGE DISPOSITION: PLEASE READ PATIENT TO BE DISCHARGED TO [address] T: [phone]>> CALL FOR REPORT [facility] ETA 1400 [facility] NO FAMILY TO NOTIFY
[2019-05-27 12:00] VITALS: BP 150/91
[2019-05-27] MEDS: 1/2NS w/KCl 20mEq 1000ml 1,000 ML IV SCH (14:00)
--- NOTE | 2019-05-27 14:29 | Surgery Progress Note ---
Surgery Progress Note Subjective Symptoms: improved, tolerating diet, passing flatus Objective Last 24 Hour Vital Signs Date Time Temp Pulse Resp B/P (MAP) Pulse Ox O2 Delivery O2 Flow Rate FiO2 05/27/19 12:00 98.4 92 18 150/91 (110) 97 05/27/19 12:00 116 05/27/19 08:14 105 134/71 05/27/19 08:00 97 05/27/19 08:00 98.0 107 18 142/84 (103) 97 05/27/19 08:00 Nasal Cannula 2.0 05/27/19 07:55 98 18 95 Nasal Cannula 2.0 28 05/27/19 07:54 95 Nasal Cannula 2.0 28 05/27/19 04:00 100 05/27/19 04:00 98.4 98 22 143/85 (104) 98 05/27/19 00:00 98.0 94 20 142/80 (100) 95 05/27/19 00:00 90 05/26/19 21:00 Nasal Cannula 2.0 05/26/19 20:42 103 128/78 05/26/19 20:00 98.0 103 20 128/78 (95) 95 05/26/19 20:00 97 05/26/19 19:30 71 18 94 Nasal Cannula 2.0 28 05/26/19 19:30 94 Nasal Cannula 2.0 28 05/26/19 16:00 92 05/26/19 16:00 97.9 94 20 134/72 (92) 95 I&O Intake and Output 05/26/19 05/27/19 19:00 07:00 Intake Total 1495 ml 1710 ml Output Total 950 ml 550 ml Balance 545 ml 1160 ml Intake Free Water 250 ml 500 ml IV Total 600 ml 550 ml Tube Feeding 645 ml 660 ml Output Urine Total 950 ml 550 ml # Voids 2 Dressing: dry Wound: other Drains: other Cardiovascular: RSR Respiratory: clear Abdomen: soft, present bowel sounds Extremities: no cyanosis, other Plan Problems: (1) UTI (urinary tract infection) Assessment & Plan: UA noted cultures noted Abx as per ID (2) Altered level of consciousness (3) Ulcer of lower extremity excluding decubitus ulcer (4) Dehydration (5) Sinus tachycardia (6) Anemia (7) Pyelonephritis (8) Pneumonia (9) Severe sepsis (10) Hypokalemia (11) Hypokalemia (12) Alzheimer disease (13) Dysphagia (14) Sepsis (15) Gastroparesis Assessment & Plan: cont feeds as tolerated needs nutritional support for healing DAILY ESTIMATED NEEDS: Needs based on multiple wounds, underweight 50.5kg 30-35 kcals/kg 4814-8419 total kcals 1.5-2.0 g protein/kg 76-101 g total protein 25-30 mL/kg 3105-4588 total fluid mLs NUTRITION DIAGNOSIS: * Increased kcal/pro needs R/T wound healing as evidenced by pt admitted w/ multiple full thickness wounds, refer to wound eval. * Swallowing difficulty R/T dysphagia as evidenced by pt GT dep for all nutritional needs. (CURRENT TF: Jevity 1.2 @ 45ml/hr x 24 hrs) ENTERAL NUTRITION RECOMMENDATIONS: Jevity 1.2 @ 60ml/hr x 24 hrs + Prosource 1pkt daily to provide 1440ml, 1728kcal, 80g+11g prot, 1162ml free water * REC TO INCREASE TF to goal rate of 60ml/hr x 24 hrs * Add Prosource 1pkt daily to better meet protein needs * HOB over 30 degrees/ water flush per MD ------ ADDITIONAL RECOMMENDATIONS: * Calibrated bedscale wt for accurate CBW * WOUND HEALING: Continue Vit C + ZnSO4 220mg daily x10 days, Simon 1pkt BID * Updated labs as able * INCREASE TF RATE PER REC ABOVE (16) Encounter for PEG (percutaneous endoscopic gastrostomy) (17) Malfunction of gastrostomy tube (18) Proteus septicemia (19) Decubitus ulcer of trochanteric region of left hip Assessment & Plan: Pt presented on admission with contractures, multiple pressure injuries. Full thickness pressure injury noted to upper cleft L earlobe.Base of wound 90% viable and moist with 10% slough at base.(L)1.5cm x (W00.6cm x (D)0.6cm. Non-blanchable erythema noted to cleft of Earlobe. Full thickness pressure injury L ischium .Base of wound has 90%pink granulation, 10% slough. Edges flat and adherent to base of wound.Dry pink epithelial borders. Periwound without erythema,induration .(L)2.5cm x (W)1.5cm. Resolving pressure injury R ischium. Dry pink epithelial base of wound .(L)4cm x (W)3.5cm. Hyperpigmentation from previous wounds noted to sacrum. Full thickness pressure injury with undermining L trochanter. [place] granulation with bone exposure at base of wound. Small amt non-odorous serous exudate noted (L)3.5cm x (W)3.5cm x (D)1.4cm ,undermining clockwise 12-12 by 3.8cm @12o' clock.Periwound without erythema or induration. Full thickness pressure injury idalia R tibia(L)9cm x (W)2.5cm. 100% pink granulation noted to base of wound. Edges flat and adherent to base of wound .Bone is palpable. Small amt non-odorous serous exudate noted. full thickness pressure injury Lateral L foot extending from L heel to distal / lateral L foot . Base of wound has approx 60% beefy red granulation intertwined with areas of mixed slough and necrosis.Edges macerated .Mild odor noted. (L)( 9cm x (W) 20cm.Periwound without erythema but L foot is edematous.Dorsal as[ pect of L foot noted to have dark brown discoloration. Full thickness pressure injury noted to distal/plantar aspect of L foot. Base of wound has 10% biofilm. 50% pink granulation with pink epithelial borders. Mild odor noted .Small amt seropurulent exudate noted. (L)1.4cm x (W)2cm. Full thickness pressure injury noted to plantar L hallux. Base of wound has 20% burgess slough with surrounding pink granulation. (+) maceration along borders. Small amt seropurulent exudate noted. Mild odor noted.(L)4.5cm x (W)2.5cm. Tx.Plan: Cleanse wounds L foot with Dakin's 0.125% daysi. Apply Dakin's moist gauze to wounds. Cover with ABD pads and wrap with Kerlix Twice daily and PRN. Cleanse wound R tibia with Dakin's 0.125% daysi.Apply Dakin's moist Gauze to wound. Apply Moisture Barrier periwound. Cover with Optifoam drsg Twice daily and prn. Cleanse wounds L trochanter,L ischium with Dakin's 0.125% daysi. Apply Dakin's moist 2-2 gauze into wound. Apply Moisture Barrier paste periwound. Cover with Optifoam drsg Twice daaily and prn. Apply Moisture Barrier to R ischium and sacrum. Cover each site with Optifoam drsg. Change every 3 days and prn. Cleanse L earlobe with Saline. Apply Therahoney with rolled Gauze. Cover with Optifoam drsg Daily and prn. APM/KAVON mattress overlay. Soft Pillow behind Knees to off-load heels. Reposition at least every 2hours or as tolerated. okay to d/c from surgical standpoint cont with wound care as above in intermediate Rios Quiñones May 27, 2019 14:29
--- NOTE | 2019-05-27 15:12 | NUR ---
NURSE NOTES: Patient discharged to [facility] via ambulance. Discharge packet given to ambulance personnel. IV removed. Report given to Kamla. Patient stable upon discharge.
--- NOTE | 2019-05-28 13:14 | Discharge Summary ---
Discharge Summary Discharge Summary _ DATE OF ADMISSION: 05/21/2019 DATE OF DISCHARGE: 05/27/2019 DISCHARGED BY: Dr. Mario REASON FOR ADMISSION: 83 years old male, with past medical history of COPD, organic brain syndrome, status post gastrostomy, anemia of chronic kidney disease, peripheral vascular disease, recurrent UTI and pneumonia, resident of residential facility , was presented to emergency room due to altered mental status. Upon evaluation vital signs were stable. Laboratory work-up revealed no leukocytosis. Hemoglobin 10.1, hematocrit 33.3. Stable electrolytes and renal parameters. Troponin was negative. Albumin 1.6 Urinalysis was grossly positive for UTI. Chest x-ray demonstrated left perihilar infiltrate, possible pneumonia. Patient started on empiric antibiotic and admitted for further management. CONSULTANTS: ID specialist Dr. Colby surgery Dr. Quiñones [facility] COURSE: Patient admitted to telemetry floor and started on IV fluids and empiric antibiotic. Home medication from the residential facility were resumed. Infectious disease specialist closely followed. Blood culture revealed Staph hominis , likely contamination as per ID specialist. Urine culture revealed Pseudomonas aeruginosa of 2 different strains . Antibiotics provided as per ID specialist recommendation. Leukocytosis resolved , no fevers. Patient completed antibiotic course while in the hospital. Strict aspiration precaution were maintained. Tube formula provided as per dialysis registered nurse recommendations along with protein supplements to meet nutritional goals. Strict aspiration precaution maintain. Patient was able to tolerate tube feeding. Bowel regimen instituted. DVT and GI prophylaxis provided. Blood pressure was managed with beta-abel and remained stable. Pain management addressed as needed. Supplemental oxygen titrated as needed to keep pulse oximetry above 90%. No evidence of COPD exacerbation. Hemoglobin and hematocrit were closely monitored with goal to keep hemoglobin above 7. Prior to discharge hemoglobin 9.7, hematocrit 32.1. Surgeon followed for left hip trochanter pressure ulcer and other pressure ulcers, included left earlobe, left ischium, right ischium, right tibia, lateral left foot, present on admission. Wound care provided as per surgeon recommendation. Continue wound care at the facility. Patient clinically stabilized and was ready for transfer back to residential [facility] for continuation of care. FINAL DIAGNOSES: Sepsis due to UTI Pseudomonas aeruginosa UTI in setting of recurrent UTI Pneumonia in setting of recurrent pneumonia Altered mental status (probably due to sepsis and infection) on chronic organic brain syndrome Alzheimer's disease Anemia of chronic kidney disease Severe protein calorie malnutrition/marasmus COPD Dysphagia, status post gastrostomy tube Aspiration risk Peripheral vascular disease Decubitus ulcer of the trochanteric region of left hip present on admission( along with otehr multipl;e deep pressure ionjury) DISCHARGE MEDICATIONS: See Medication Reconciliation list. DISCHARGE INSTRUCTIONS: Patient was discharged to the residential facility. Follow up with medical doctor at the facility. I have been assigned to dictate discharge summary for this account. I was not involved in the patient's management. Chelsey Kumar NP May 28, 2019 13:14
== END 2019-05-27 15:13 | DRG 871 ==
LOC: EDBD 12:37 → EMR 13:35 → 2E 13:39 → EDBEDREQ 15:44 → 2E 17:59
DX: A41.9 Sepsis, unspecified organism (principal); L89.153 Pressure ulcer of sacral region, stage 3; L89.813 Pressure ulcer of head, stage 3; J18.9 Pneumonia, unspecified organism; E43 Unspecified severe protein-calorie malnutrition; N39.0 Urinary tract infection, site not specified; Z43.1 Encounter for attention to gastrostomy; L97.909 Non-pressure chronic ulcer of unspecified part of unspecified lower leg with unspecified severity; N12 Tubulo-interstitial nephritis, not specified as acute or chronic; Z68.1 Body mass index [BMI] 19.9 or less, adult; R13.10 Dysphagia, unspecified; E87.6 Hypokalemia; F09 Unspecified mental disorder due to known physiological condition; J44.9 Chronic obstructive pulmonary disease, unspecified; N18.9 Chronic kidney disease, unspecified; D63.1 Anemia in chronic kidney disease; I73.9 Peripheral vascular disease, unspecified; B96.5 Pseudomonas (aeruginosa) (mallei) (pseudomallei) as the cause of diseases classified elsewhere; G30.9 Alzheimer's disease, unspecified; F02.80 Dementia in other diseases classified elsewhere, unspecified severity, without behavioral disturbance, psychotic disturbance, mood disturbance, and anxiety; L89.229 Pressure ulcer of left hip, unspecified stage; L89.899 Pressure ulcer of other site, unspecified stage; E86.0 Dehydration; L89.329 Pressure ulcer of left buttock, unspecified stage; L89.319 Pressure ulcer of right buttock, unspecified stage; Z22.322 Carrier or suspected carrier of Methicillin resistant Staphylococcus aureus; K31.84 Gastroparesis
CPT/HCPCS: 36415; 71045; 80048; 80053; 81003; 82550; 83605; 83735; 83880; 84484; 85025; 85610; 85730; 87040; 87081; 87086; 87181; 93005; 94664; 96361; 96365; 96368; 99285

== ENCOUNTER 2019-06-21 23:40 | Inpatient (IN) | payer MEDICARE, OTHER ==
[~2019-06-21] VITALS: Ht 167.6 cm; Wt 56.2 kg
[~2019-06-21 23:40] MED LIST changes: +METOPROLOL TART25 MG GT
[2019-06-21 23:42] VITALS: BP 106/60
--- NOTE | 2019-06-21 23:42 | NUR ---
ED Nurse Note: PATIENT BIBA FROM [facility], WITH COMPLANTS OF RESPIRATORY DISTRESS, DESATURATION, PATIENT ON NON REBREATHER FIO2 41% 10L. PATIENT TOLERATING RESPIRATORY WELL, LABS COMPLETED, SWABS TAKEN, CULTURES SEND DOWN TO LAB.
[2019-06-21] MEDS ORDERED: Sodium Chloride 2,200 ML IVLG ONE (23:45)
--- NOTE | 2019-06-21 23:56 | Emergency Room Report ---
History of Present Illness General Chief Complaint: Dyspnea/Respdistress Source: Medical Record Present Illness HPI This an 83-year-old male from skilled nursing. He has a history of paraplegia, COPD and dementia. He presents with chief complaint of shortness of breath. Onset tonight. History is through nursing note and EMS. Patient unable to give history. Increasing shortness of breath all day. No fever. No nausea no vomiting. Per EMS he was hypoxic and placed on a nonrebreather. Allergies: Coded Allergies: No Known Allergies (Unverified , 02/25/19) Patient History Past Medical History: see triage record, old chart reviewed Past Surgical History: none Pertinent Family History: none Social History: Denies: smoking Immunizations: other Reviewed Nursing Documentation: PMH: Agreed; PSxH: Agreed Nursing Documentation-PMH Hx Hypertension: Yes Hx Asthma: No - hx resp failure and asp pneumonia Hx COPD: Yes - pneumonia Hx Diabetes: Yes Hx Cancer: No Hx Dementia: Yes Hx Alzheimer's Disease: Yes Hx Memory Loss: Yes Hx Speech Problem: Yes Hx Dysphasia: Yes Hx Weakness: Yes Review of Systems Respiratory: Reports: cough, shortness of breath All Other Systems: limited - secondary to condition Physical Exam Vital Signs Date Time Temp Pulse Resp B/P (MAP) Pulse Ox O2 Delivery O2 Flow Rate FiO2 06/21/19 23:39 100 24 106/60 (75) 96 Non-Rebreather 15.0 Vitals with hypoxia Sp02 EP Interpretation: reviewed, abnormal General Appearance: severe distress, cachetic, Chronically Ill Head: normocephalic, atraumatic Eyes: bilateral eye PERRL, bilateral eye EOMI ENT: dry mucus membranes Neck: full range of motion, supple, no meningismus Respiratory: chest non-tender, respiratory distress, decreased breath sounds, accessory muscle use, crackles, rhonchi Cardiovascular #1: regular rate, rhythm, no murmur Gastrointestinal: normal bowel sounds, non tender, no mass, no organomegaly, no bruit, non-distended Musculoskeletal: other - Contracted; decubitus ulcers Skin: no rash Procedures Critical Care Time Critical Care Time Critical care is mandated in this patient who presented with sepsis from PNA. Patient require my urgent intervention to attenuate the risks of metabolic collapse which may lead to cardiovascular collapse and . Critical care time is 35 minutes excluding any reportable procedure. Critical care time included evaluation, multiple reevaluation, looking at old charts, interpreting laboratory and diagnostic data, discussing case with patient and family and consultants, and charting. Medical Decision Making Diagnostic Impression: Primary Impression: Sepsis Qualified Codes: A41.9 - Sepsis, unspecified organism Additional Impressions: Respiratory distress HCAP (healthcare-associated pneumonia) Acute prerenal azotemia Anemia Qualified Codes: D64.9 - Anemia, unspecified UTI (urinary tract infection) Qualified Codes: N30.00 - Acute cystitis without hematuria ER Course Patient presents with sepsis secondary to pneumonia. There was copious amount of green mucus suctioned from his lungs. Wide spectrum antibiotics given. I added Vanco mycin to cover for MRSA because he has a PICC line. Prognosis is poor in this patient. I discussed the case with Dr. Maria who agreed to admit. Sepsis reevaluation VS: See nursing note General: More awake and responsive Lungs: Better air movement Heart: Regular rate and rhythm. ABd: Soft Ext: contracted. no edema Skin: no mottling. EKG Diagnostic Results Rate: normal Rhythm: NSR ST Segments: other - NSST changes Rhythm Strip Diag. Results EP Interpretation: yes Rate: 100 Rhythm: NSR, no PVC's, no ectopy Chest X-Ray Diagnostic Results Chest X-Ray Diagnostic Results : Chest X-Ray Ordered: Yes # of Views/Limited/Complete: 1 View Indication: Shortness of Breath EP Interpretation: Yes Interpretation: no effusion, no pneumothorax, no acute cardiopulmonary disease, other - b/l Impression: Other - b/l infiltrates Electronically Signed by: Viet Hernandez MD Last Vital Signs Date Time Temp Pulse Resp B/P (MAP) Pulse Ox O2 Delivery O2 Flow Rate FiO2 06/21/19 23:39 100 24 106/60 (75) 96 Non-Rebreather 15.0 Status: improved Disposition: ADMITTED INPATIENT Condition: Serious Viet Hernandez MD Jun 21, 2019 23:56
[2019-06-22 00:14] LABS: BASOPHILS % (AUTO) 0.5 % (0.0-2.0); EOSINOPHILS % (AUTO) 0.1 % (0.0-3.0); HEMATOCRIT 30.6 % (42.0-52.0); HEMOGLOBIN 9.7 G/DL (14.2-18.0); MEAN CORPUSCULAR VOLUME 76 FL (80-99); MONOCYTES % (AUTO) 6.6 % (1.0-10.0); NEUTROPHILS % (AUTO) 83.8 % (45.0-75.0); PLATELET COUNT 419 K/UL (150-450); RED BLOOD COUNT 4.02 M/UL (4.70-6.10); RED CELL DISTRIBUTION WIDTH 23.2 % (11.6-14.8); WHITE BLOOD COUNT 16.2 K/UL (4.8-10.8)
[2019-06-22] MEDS ORDERED: Cefepime HCl 1 GM in D5W 55 ML IVPB ONE (00:15)
[2019-06-22 00:20] LABS: ANION GAP 7 mmol/L (5-15); BLOOD UREA NITROGEN 26 mg/dL (7-18); CALCIUM 8.1 MG/DL (8.5-10.1); CARBON DIOXIDE 25 MMOL/L (21-32); CHLORIDE 107 MMOL/L (98-107); CREATININE 0.8 MG/DL (0.55-1.30); POTASSIUM 4.2 MMOL/L (3.5-5.1); SODIUM 138 MMOL/L (136-145)
[2019-06-22 00:33] LABS: APPEARANCE,URINE SLIGHTLY CLOUDY; BILIRUBIN, URINE NEGATIVE (NEGATIVE); GLUCOSE, URINE (UA) NEGATIVE (NEGATIVE); KETONES,URINE NEGATIVE (NEGATIVE); LEUKOCYTE ESTERASE ,URINE NEGATIVE (NEGATIVE); NITRITE,URINE NEGATIVE (NEGATIVE); PH,URINE 5 (4.5-8.0); PROTEIN,URINE 2+ (NEGATIVE); UROBILINOGEN,URINE NORMAL MG/DL (0.0-1.0)
[2019-06-22 00:34] LABS: ALANINE AMINOTRANSFERASE 23 U/L (12-78); ALBUMIN 1.7 G/DL (3.4-5.0); ALBUMIN/GLOBULIN RATIO 0.3 (1.0-2.7); ALKALINE PHOSPHATASE 100 U/L (46-116); ASPARTATE AMINO TRANSFERASE 20 U/L (15-37); BILIRUBIN,TOTAL 0.4 MG/DL (0.2-1.0); CKMB 2.6 NG/ML (0.0-3.6); CREATINE KINASE 52 U/L (26-308)
[2019-06-22 00:34] LABS: COLOR,URINE YELLOW
--- NOTE | 2019-06-22 00:42 | NUR ---
ED Nurse Note: PATIENT IS AWAKE, MOANING CONTINUOUSLY, VITAL SIGNS STABLE WITH NO S/S OF ACUTE DISTRESS. SHIELDS DC AND REPLACED.
[2019-06-22] MEDS ORDERED: Vancomycin 1.5 GM in NS 275 ML IVPB ONE (01:00)
--- NOTE | 2019-06-22 01:05 | Diagnostic Imaging Report ---
EXAM: XR Chest, 1 View CLINICAL HISTORY: SOB TECHNIQUE: Frontal view of the chest. COMPARISON: 05/21/19 FINDINGS: Lungs: Increased hazy opacity is projected in the left perihilar region which appears unchanged to slightly worse compared to the prior exam. This may be related to edema and/or infiltrate. A neoplastic process cannot be excluded. Probable linear atelectasis at the right lung base. Pleural space: No definite plain film evidence for pneumothorax. Evaluation for pneumothorax is limited due to the cardiac apices being obscured. Heart: Unremarkable. No cardiomegaly. Mediastinum: Unremarkable. Bones/joints: Degenerative changes of the acromioclavicular joints. Degenerative changes of the thoracic spine. Tubes, lines and devices: Right-sided venous line with tip projected over the right axillary region. IMPRESSION: 1. Increased hazy opacity is projected in the left perihilar region which appears unchanged to slightly worse compared to the prior exam. This may be related to edema and/or infiltrate. A neoplastic process cannot be excluded. 2. Probable linear atelectasis at the right lung base.
[2019-06-22] MEDS ORDERED: MEROPENEM-1 GM/50 ML IV (01:40)
--- NOTE | 2019-06-22 01:48 | NUR ---
ED Nurse Note: CALLED AND GAVE REPORT TO JOHN GARCIA.
--- NOTE | 2019-06-22 01:55 | NUR ---
ED Nurse Note: PATIENT TRANSPORTED TO FLOOR WITHOUT INCIDENT BYTricia HEREDIA AND RN.
[2019-06-22 02:00] VITALS: BP 116/71
--- NOTE | 2019-06-22 02:00 | NUR ---
NURSE NOTES: Report received from JOSE Narvaez. Pt transferred to the unit via [facility]. Belonging checked. vehicle monitor technician applied, SR noted. VS 116/71, HR 92, T 98.1, R 20. Multiple wounds noted and picture taken and uploaded. A/Ox1. SR with awake overnight monitor. GT intact and no residual noted. Abd, soft, non-tender. IV on R FA PICC, intact and patent. Bed in the lowest position. Side rails up x3. Will continue to monitor.
[2019-06-22 04:00] VITALS: BP 116/70
--- NOTE | 2019-06-22 04:00 | NUR ---
NURSE NOTES: called back and received admission order. Will follow the plan of care.
[2019-06-22 05:18] LABS: HEMATOCRIT 27.1 % (42.0-52.0); HEMOGLOBIN 8.3 G/DL (14.2-18.0); MEAN CORPUSCULAR VOLUME 77 FL (80-99); PLATELET COUNT 282 K/UL (150-450); RED BLOOD COUNT 3.51 M/UL (4.70-6.10); RED CELL DISTRIBUTION WIDTH 22.9 % (11.6-14.8); WHITE BLOOD COUNT 13.4 K/UL (4.8-10.8)
[2019-06-22 05:35] LABS: ANION GAP 8 mmol/L (5-15); BLOOD UREA NITROGEN 20 mg/dL (7-18); CALCIUM 7.2 MG/DL (8.5-10.1); CARBON DIOXIDE 20 MMOL/L (21-32); CHLORIDE 112 MMOL/L (98-107); CREATININE 0.5 MG/DL (0.55-1.30); POTASSIUM 3.8 MMOL/L (3.5-5.1); SODIUM 140 MMOL/L (136-145)
--- NOTE | 2019-06-22 07:10 | NUR ---
HAND-OFF: Report given to JOSE Salazar. No distress noted at this time.
--- NOTE | 2019-06-22 07:13 | NUR ---
NURSE NOTES: Received bedside report from Debbie RN. Pt. in bed, eyes open, non-verbal. No distress noted. On non-rebreathing mask 10LPM. No grimacing noted. PICC line at right upper arm with 1 lumen in placed patent/intact running 1/2NS at 50cc/hr. Tolerating well. HOB elevated at all times. Bed in low position, locked. Call light within reach. Will cont. to monitor.
[2019-06-22 08:00] VITALS: BP 127/70
[2019-06-22] MEDS: Heparin 5000 units/ml inj SUBQ SCH ×2 (08:38→20:54)
[2019-06-22 12:00] VITALS: BP 142/68
--- NOTE | 2019-06-22 13:49 | NUR ---
CASE MANAGEMENT: INITIAL REVIEW 83 YO M SAHIL FROM [facility] CC: DYSPNEA PMHx: HTN. COPD. PNA. DEMENTIA. SI:SEPSIS. PNA. T 98.1 HR 100 RR 24 B/P 106/60 SATS 96% ON 15L/NRB WBC 16.2 BUN 26 GLU 113 CA 8.1 IS: NS BOLUS X1 CEFEPIME IV X1 LEVOFLOXACIN IV X1 VANCOMYCIN IV X1 PATIENT ADMITTED TO SDU 06/22/2019 @ 0100 DCP: PATIENT TO BE DISCHARGED TO SNF ONCE MEDICALLY CLEARED PLAN OF CARE: WOUND CARE ID CONSULT PULMO CONSULT Addendum: 06/22/19 at 1402 by Kelly Cruz INTERQUAL MET
[2019-06-22] MEDS ORDERED: 1/2 NS 1000ml IV ONE (15:48)
[2019-06-22 16:00] VITALS: BP 135/74
--- NOTE | 2019-06-22 19:10 | NUR ---
NURSE NOTES: Pt report received from Isac RN ASAF. pt appears to be resting stable in bed. pt is alert and oriented times obtunded, and unable to follow commands. how ever, pts pupils are round and reactive to light and accommodating bilaterally. pt has a non rebreather mask attached giving 10L O2 and able to sat at 100%, no acute signs symptoms of distress noted. pt has a school bus monitor attached, showing normal sinus rhythm, no acute signs symptoms of cardiac distress noted. pt has a G tube, running Jevity 1.5 at 35cc, no acute signs symptoms shown at this rate. all safety precautions are active, bed locked and low, bed rails up times 3, bed armed. will carry out plan of care.
--- NOTE | 2019-06-22 19:36 | NUR ---
HAND-OFF: Report given to Brad Siegel RN. Pt. remain stable.
[2019-06-22 20:00] VITALS: BP 140/70
[2019-06-22] MEDS ORDERED: MEROPENEM1 GM IV (20:17)
[2019-06-22] MEDS ORDERED: BACTRIM DS TAB1 EAC1 ORAL (20:17)
[2019-06-22] MEDS: Cefepime HCl 1 GM in D5W 55 ML IVPB SCH (20:41)
--- NOTE | 2019-06-22 21:15 | History and Physical Report ---
DATE OF ADMISSION: 06/22/2019 CHIEF COMPLAINT: Altered level of consciousness and shortness of breath. HISTORY OF PRESENT ILLNESS: This is an 83-year-old male, who keeps going frequently between the shelter and the emergency room. The patient has been referred many times to [facility] for admission due to recurrence of respiratory distress and septicemia. The patient is conserved. His code status has been Full Code. Attempts to make the patient DNR so far notes clear. Previously his Guardian wanted Full Code .We are trying to get the legal conservator to agree for DNR, but so far I have not heard personally from the legal conservator agreeing for the patient's status to be changed to DNR. The [employer] in [facility] was in touch with the Conservator. So, so far, the patient is Full Code per previous decision of the patient's conservator. So, the patient was sent due to respiratory distress. The patient is unable to give any further information. PAST MEDICAL HISTORY: 1. COPD. 2. Organic brain syndrome. 3. Extreme marasmus. 4. Multiple decubitus ulcers as depicted by wound consultants and the pictures in the chart. 5. Recurrent urosepsis. MEDICATIONS: 1. Tube feeding. 2. Multivitamins. 3. Wound care. 4. IV antibiotics, meropenem. 5. Ascorbic acid. 6. Sodium docusate. 7. Subcutaneous heparin. 8. DuoNeb inhalation. 9. Metoprolol. 10. Protonix. ALLERGIES: No known drug allergies. FAMILY HISTORY: Unable to obtain due to mental status. SOCIAL HISTORY: Unable to obtain due to mental status. REVIEW OF SYSTEMS: Unable to obtain due to mental status. PHYSICAL EXAMINATION: GENERAL: This is an elderly extremely marantic male, who is in moderate respiratory distress. VITAL SIGNS: Blood pressure 127/70, pulse 94, respirations 24, and temperature 97.7. SKIN: He has multiple decubitus ulcers including sacral, bilateral heel, right hip, extensive left lateral foot. HEART: Regular rate and rhythm without rubs, murmurs, or gallops. LUNGS: Bilateral rhonchi and wheezes. ABDOMEN: Scaphoid, soft, and nontender. Bowel sounds were active. He has a G-tube. EXTREMITIES: He has multiple contractures. NEUROLOGIC: The patient is confused. There are no gross focal findings. LABORATORY AND ANCILLARY DATA: On admission, white count 05744, today 61625, hematocrit on admission 30.6, today 27.1, and platelet count within normal limits. Chemistry today, BUN 20 and creatinine 0.5. Lactic acid level is 1.8. Urinalysis, 2+ protein, sediment, 5 to 10 white blood cells. Cultures are pending. IMAGING REPORTS: A chest x-ray, increased hazy opacity in the left perihilar region unchanged to slightly worse compared to prior exam, may represent edema or infiltrate. ASSESSMENT: 1. Recurrent septicemia, multifactorial. 2. COPD. 3. Organic brain syndrome. 4. Extreme marasmus. 5. Multiple decubitus ulcers as depicted by wound consultants and the pictures in the chart. 6. Recurrent urosepsis. PLAN: 1. IV fluid rehydration. 2. Intravenous antibiotics. 3. ID, Pulmonary, and wound care consult. Ervin Mario M.D. DR: COREY JOB#: [id number] CC: HUONG
--- NOTE | 2019-06-22 22:02 | Consultation ---
History of Present Illness General Date patient seen: Jun 22, 2019 Chief Complaint: Dyspnea/Respdistress Present Illness HPI 83M well known to me from prior admissions. He is a [facility] resident with multiple medical comorbidities who is in and out of the hospital frequently. Overall deconditioned and attempts have been made for code status update but pending. Currently admitted for respiratory insufficiency. Surgery called to evaluate as patient still with many unhealing decubitus requiring care. patient seen, chart reviewed, patient examined. Allergies: Coded Allergies: No Known Allergies (Unverified , 02/25/19) Medication History Scheduled Ascorbic Acid* (Ascorbic Acid*), 500 MG GT DAILY Docusate Sodium (Docusate Sodium), 100 MG GT DAILY, (Reported) Heparin Sod (Porcine) (Heparin Sodium*), 5,000 UNITS SUBQ EVERY 12 HOURS Meropenem (Meropenem), 1 GM IV EVERY 8 HOURS, (Reported) Metoprolol Tartrate* (Metoprolol Tartrate*), 25 MG GT EVERY 12 HOURS, (Reported) Pantoprazole Sodium (Protonix), 40 MG GT ACBREAKFAST, (Reported) Trimethoprim/Sulfamethoxazole 160/800* (Bactrim Ds Tablet*), 1 TAB ORAL TWICE A DAY, (Reported) Scheduled PRN Acetaminophen* (Tylenol Extra Strength*), 500 MG ORAL Q6H PRN for Mild Pain/ Temp > 100.5, (Reported) Ipratropium/Albuterol Sulfate (DuoNeb 0.5-3(2.5)mg/3ml), 3 ML HHN Q4H PRN Discontinued Medications Meropenem-0.9% Sodium Chloride (Meropenem-0.9% NaCl 1 Gram/50), 1 GM IV, ( Reported) Discontinued Reason: Prescription changed Patient History Limited by: medical condition History Provided By: Medical Record, PMD Healthcare decision maker Resuscitation status Full Code Advanced Directive on File No Past Medical/Surgical History Past Medical/Surgical History: (1) Ulcer of lower extremity excluding decubitus ulcer (2) Sinus tachycardia (3) Pyelonephritis (4) Pneumonia (5) Severe sepsis (6) Hypokalemia (7) Hypokalemia (8) Alzheimer disease (9) Dysphagia (10) Gastroparesis (11) Encounter for PEG (percutaneous endoscopic gastrostomy) (12) Malfunction of gastrostomy tube (13) Proteus septicemia (14) Decubitus ulcer of trochanteric region of left hip (15) Anemia (16) HCAP (healthcare-associated pneumonia) (17) Acute prerenal azotemia (18) Respiratory distress (19) Sepsis (20) UTI (urinary tract infection) Review of Systems ROS Narrative cannot obtain given medical condition Physical Exam General Appearance: mild distress Lines, tubes and drains: peripheral HEENT: mucous membranes moist Neck: normal inspection Respiratory/Chest: other Cardiovascular/Chest: normal rate Abdomen: soft, feeding tube Genitourinary/Rectal: other Extremities: other Skin Exam: warm/dry Neurologic: unresponsiveness Last 24 Hour Vital Signs Date Time Temp Pulse Resp B/P (MAP) Pulse Ox O2 Delivery O2 Flow Rate FiO2 06/22/19 20:00 Non-Rebreather 10.0 06/22/19 20:00 97.9 77 19 140/70 (93) 99 06/22/19 20:00 10.0 06/22/19 20:00 90 06/22/19 16:00 Non-Rebreather 10.0 06/22/19 16:00 97.2 94 20 135/74 (94) 100 06/22/19 16:00 10.0 06/22/19 15:23 93 06/22/19 12:00 Non-Rebreather 10.0 06/22/19 12:00 97.7 92 24 142/68 (92) 100 06/22/19 12:00 10.0 06/22/19 11:45 99 06/22/19 08:00 10.0 06/22/19 08:00 Non-Rebreather 10.0 06/22/19 08:00 97.7 94 22 127/70 (89) 100 06/22/19 07:46 95 06/22/19 04:00 Non-Rebreather 10.0 06/22/19 04:00 10.0 06/22/19 04:00 92 06/22/19 04:00 97.2 95 22 116/70 (85) 100 06/22/19 02:48 Non-Rebreather 10.0 06/22/19 02:00 98.1 92 20 116/71 (86) 100 06/22/19 02:00 93 06/22/19 01:55 24 106/60 96 Non-Rebreather 15.0 06/21/19 23:42 100 24 Non-Rebreather 15.0 06/21/19 23:42 89 24 106/60 96 Non-Rebreather 15.0 06/21/19 23:39 100 24 106/60 (75) 96 Non-Rebreather 15.0 Intake and Output 06/21/19 06/22/19 19:00 07:00 Intake Total 2250 ml Output Total 350 ml Balance 1900 ml Intake Oral 0 ml Free Water 50 ml IV Total 2200 ml Output Urine Total 350 ml Laboratory Tests Test 06/21/19 23:45 06/22/19 00:05 06/22/19 05:07 White Blood Count 16.2 K/UL (4.8-10.8) H 13.4 K/UL (4.8-10.8) H Red Blood Count 4.02 M/UL (4.70-6.10) L 3.51 M/UL (4.70-6.10) L Hemoglobin 9.7 G/DL (14.2-18.0) L 8.3 G/DL (14.2-18.0) L Hematocrit 30.6 % (42.0-52.0) L 27.1 % (42.0-52.0) L Mean Corpuscular Volume 76 FL (80-99) L 77 FL (80-99) L Mean Corpuscular Hemoglobin 24.1 PG (27.0-31.0) L 23.6 PG (27.0-31.0) L Mean Corpuscular Hemoglobin Concent 31.7 G/DL (32.0-36.0) L 30.5 G/DL (32.0-36.0) L Red Cell Distribution Width 23.2 % (11.6-14.8) H 22.9 % (11.6-14.8) H Platelet Count 419 K/UL (150-450) 282 K/UL (150-450) Mean Platelet Volume 6.9 FL (6.5-10.1) 7.0 FL (6.5-10.1) Neutrophils (%) (Auto) 83.8 % (45.0-75.0) H % (45.0-75.0) Lymphocytes (%) (Auto) 9.0 % (20.0-45.0) L % (20.0-45.0) Monocytes (%) (Auto) 6.6 % (1.0-10.0) % (1.0-10.0) Eosinophils (%) (Auto) 0.1 % (0.0-3.0) % (0.0-3.0) Basophils (%) (Auto) 0.5 % (0.0-2.0) % (0.0-2.0) Sodium Level 138 MMOL/L (136-145) 140 MMOL/L (136-145) Potassium Level 4.2 MMOL/L (3.5-5.1) 3.8 MMOL/L (3.5-5.1) Chloride Level 107 MMOL/L (98-107) 112 MMOL/L (98-107) H Carbon Dioxide Level 25 MMOL/L (21-32) 20 MMOL/L (21-32) L Anion Gap 7 mmol/L (5-15) 8 mmol/L (5-15) Blood Urea Nitrogen 26 mg/dL (7-18) H 20 mg/dL (7-18) H Creatinine 0.8 MG/DL (0.55-1.30) 0.5 MG/DL (0.55-1.30) L Estimat Glomerular Filtration Rate mL/min (>60) mL/min (>60) Glucose Level 113 MG/DL (74-106) H 91 MG/DL (74-106) Lactic Acid Level 1.80 mmol/L (0.4-2.0) Calcium Level 8.1 MG/DL (8.5-10.1) L 7.2 MG/DL (8.5-10.1) L Total Bilirubin 0.4 MG/DL (0.2-1.0) Aspartate Amino Transf (AST/SGOT) 20 U/L (15-37) Alanine Aminotransferase (ALT/SGPT) 23 U/L (12-78) Alkaline Phosphatase 100 U/L (46-116) Total Creatine Kinase 52 U/L (26-308) Creatine Kinase MB 2.6 NG/ML (0.0-3.6) Creatine Kinase MB Relative Index 5.0 Troponin I 0.008 ng/mL (0.000-0.056) Total Protein 6.6 G/DL (6.4-8.2) Albumin 1.7 G/DL (3.4-5.0) L Globulin 4.9 g/dL Albumin/Globulin Ratio 0.3 (1.0-2.7) L Urine Color Yellow Urine Appearance Slightly cloudy Urine pH 5 (4.5-8.0) Urine Specific [place] 1.025 (1.005-1.035) Urine Protein 2+ (NEGATIVE) H Urine Glucose (UA) Negative (NEGATIVE) Urine Ketones Negative (NEGATIVE) Urine Blood 5+ (NEGATIVE) H Urine Nitrite Negative (NEGATIVE) Urine Bilirubin Negative (NEGATIVE) Urine Urobilinogen Normal MG/DL (0.0-1.0) Urine Leukocyte Esterase Negative (NEGATIVE) Urine RBC Tntc /HPF (0 - 0) H Urine WBC 5-10 /HPF (0 - 0) H Urine Squamous Epithelial Cells Occasional /LPF Urine Bacteria Few /HPF (NONE) Differential Total Cells Counted 100 Neutrophils % (Manual) 90 % (45-75) H Lymphocytes % (Manual) 5 % (20-45) L Monocytes % (Manual) 5 % (1-10) Eosinophils % (Manual) 0 % (0-3) Basophils % (Manual) 0 % (0-2) Band Neutrophils 0 % (0-8) Platelet Estimate Adequate Platelet Morphology Normal Hypochromasia 2+ Anisocytosis 2+ Microcytosis 2+ Microbiology Date/Time Source Procedure Growth Status 06/22/19 00:05 Sputum Gram Stain - Final Resulted 06/22/19 00:05 Sputum Sputum Culture Pending Resulted 06/22/19 01:34 Rectum Received Height (Feet): 5 Height (Inches): 6.00 Weight (Pounds): 112 Medications Current Medications Medications (Trade) Dose Ordered Sig/Mckenzie Route PRN Reason Start Time Stop Time Status Last Admin Dose Admin Cefepime HCl 1 gm/ Dextrose 55 ml @ 110 mls/hr Q24H IVPB 06/22/19 21:00 06/29/19 20:59 06/22/19 20:41 Heparin Sodium (Porcine) (Heparin 5000 units/ml) 5,000 units EVERY 12 HOURS SUBQ 06/22/19 09:00 07/22/19 08:59 06/22/19 20:54 Levofloxacin 50 ml @ 50 mls/hr Q24H IVPB 06/23/19 00:00 06/30/19 00:00 Sodium Chloride 1,000 ml @ 50 mls/hr Q20H IV 06/22/19 04:15 07/22/19 04:14 06/22/19 04:42 Vancomycin HCl (Vanco rx to dose) 1 ea DAILY PRN MISC Per rx protocol 06/22/19 04:15 07/22/19 04:14 Vancomycin HCl 750 mg/Sodium Chloride 275 ml @ 183.333 mls/hr Q24H IVPB 06/23/19 01:00 06/28/19 00:59 Assessment/Plan Problem List: (1) Respiratory distress ICD Codes: R06.03 - Acute respiratory distress SNOMED: 669869867, 017526565 (2) Sepsis Assessment & Plan: leukocytosis abnormal labs on IV abx ?pna trend labs iv fluids ICD Codes: A41.9 - Sepsis, unspecified organism SNOMED: 00619667 Qualifiers: Qualified Codes: A41.9 - Sepsis, unspecified organism (3) Decubitus ulcer of trochanteric region of left hip Assessment & Plan: Pt presented on admission with contractures, multiple pressure injuries. Full thickness pressure injury noted to upper cleft L earlobe.Base of wound 90% viable and moist with 10% slough at base.(L)1.5cm x (W00.6cm x (D)0.6cm. Non-blanchable erythema noted to cleft of Earlobe. Full thickness pressure injury L ischium .Base of wound has 90%pink granulation, 10% slough. Edges flat and adherent to base of wound.Dry pink epithelial borders. Periwound without erythema,induration .(L)2.5cm x (W)1.5cm. Resolving pressure injury R ischium. Dry pink epithelial base of wound .(L)4cm x (W)3.5cm. Hyperpigmentation from previous wounds noted to sacrum. Full thickness pressure injury with undermining L trochanter. [place] granulation with bone exposure at base of wound. Small amt non-odorous serous exudate noted (L)3.5cm x (W)3.5cm x (D)1.4cm ,undermining clockwise 12-12 by 3.8cm @12o' clock.Periwound without erythema or induration. Full thickness pressure injury idalia R tibia(L)9cm x (W)2.5cm. 100% pink granulation noted to base of wound. Edges flat and adherent to base of wound .Bone is palpable. Small amt non-odorous serous exudate noted. full thickness pressure injury Lateral L foot extending from L heel to distal / lateral L foot . Base of wound has approx 60% beefy red granulation intertwined with areas of mixed slough and necrosis.Edges macerated .Mild odor noted. (L)( 9cm x (W) 20cm.Periwound without erythema but L foot is edematous.Dorsal as[ pect of L foot noted to have dark brown discoloration. Full thickness pressure injury noted to distal/plantar aspect of L foot. Base of wound has 10% biofilm. 50% pink granulation with pink epithelial borders. Mild odor noted .Small amt seropurulent exudate noted. (L)1.4cm x (W)2cm. Full thickness pressure injury noted to plantar L hallux. Base of wound has 20% burgess slough with surrounding pink granulation. (+) maceration along borders. Small amt seropurulent exudate noted. Mild odor noted.(L)4.5cm x (W)2.5cm. Tx.Plan: Cleanse wounds L foot with Dakin's 0.125% daysi. Apply Dakin's moist gauze to wounds. Cover with ABD pads and wrap with Kerlix Twice daily and PRN. Cleanse wound R tibia with Dakin's 0.125% daysi.Apply Dakin's moist Gauze to wound. Apply Moisture Barrier periwound. Cover with Optifoam drsg Twice daily and prn. Cleanse wounds L trochanter,L ischium with Dakin's 0.125% daysi. Apply Dakin's moist 2-2 gauze into wound. Apply Moisture Barrier paste periwound. Cover with Optifoam drsg Twice daaily and prn. Apply Moisture Barrier to R ischium and sacrum. Cover each site with Optifoam drsg. Change every 3 days and prn. Cleanse L earlobe with Saline. Apply Therahoney with rolled Gauze. Cover with Optifoam drsg Daily and prn. APM/KAVON mattress overlay. Soft Pillow behind Knees to off-load heels. Reposition at least every 2hours or as tolerated. ICD Codes: L89.229 - Pressure ulcer of left hip, unspecified stage SNOMED: 244726357 Rios Quiñones Jun 22, 2019 22:02
[2019-06-23] VITALS: BP 136/88
[2019-06-23] MEDS: Vancomycin 750mg/NS 275ml IVPB SCH ×2 (01:33)
[2019-06-23 04:00] VITALS: BP 136/88
--- NOTE | 2019-06-23 06:35 | NUR ---
NURSE NOTES: Karlos from [employer]/ Lab called. Pt Blood Culture is Gram Positive Cocci.
--- NOTE | 2019-06-23 07:05 | NUR ---
HAND-OFF: Report given to Isac GARCIA ASAF.
--- NOTE | 2019-06-23 07:15 | NUR ---
NURSE NOTES: Received bedside report from Brad RN. Pt. in bed, eyes open, non-verbal. No distress noted. On non-rebreathing mask 10LPM. No grimacing noted. PICC line at right upper arm with 1 lumen in placed patent/intact running 1/2NS at 50cc/hr. Tolerating well. On GTF Jevity 1.2 at 35cc/hr continuous. HOB elevated at all times. Bed in low position, locked. Call light within reach. Will cont. to monitor.
[2019-06-23 08:00] VITALS: BP 126/72
[2019-06-23] MEDS ORDERED: Dakin's 0.125% Soln (Quarter Strength) 16oz TOPIC SCH (09:00)
[2019-06-23] MEDS: Heparin 5000 units/ml inj SUBQ SCH ×2 (09:17→20:32)
--- NOTE | 2019-06-23 09:34 | NUR ---
RD ASSESSMENT & RECOMMENDATIONS SEE CARE ACTIVITY FOR COMPLETE ASSESSMENT DAILY ESTIMATED NEEDS: Needs based on multiple wounds, underweight 51kg 30-35 kcals/kg 7468-4141 total kcals 1.5-2.0 g protein/kg 77-102 g total protein 25-30 mL/kg 4889-7808 total fluid mLs NUTRITION DIAGNOSIS: * Increased kcal/pro needs R/T wound healing and underweight status as evidenced by pt admitted w/ multiple full thickness wounds, refer to wound eval, pt @82% [place] Body Weight w/ severe wasting. * Swallowing difficulty R/T dysphagia as evidenced by pt GT dep for all nutritional needs. (CURRENT TF: Jevity 1.2 @ 35ml/hr x 24 hrs) ENTERAL NUTRITION RECOMMENDATIONS: Jevity 1.2 @ 60ml/hr x 24 hrs + Prosource 1pkt daily to provide 1440ml, 1728kcal, 80g+11g prot, 1162ml free water * REC TO INCREASE goal rate to 60ml/hr x 24 hrs * Add Prosource 1pkt daily to better meet protein needs * HOB over 30 degrees/ water flush per MD ------ ADDITIONAL RECOMMENDATIONS: * Calibrated bedscale wt for accurate CBW * WOUND HEALING: OLY BID via GT + VIT C 250MG BID + ZN SO4 220mg daily x10 days * TF recs as above to better meet est needs . .
--- NOTE | 2019-06-23 09:45 | General Progress Note ---
Assessment/Plan Assessment/Plan: Sepsis - BC 1:2 GPC in clusters. On broad-spectrum IV Abx per ID. Most likely due to infected decubiti, although pneumonia and Urosepsis are also potential sources. To clarify Code Status with [employer]. Subjective Allergies: Coded Allergies: No Known Allergies (Unverified , 02/25/19) Subjective Nonverbal. Objective Last 24 Hour Vital Signs Date Time Temp Pulse Resp B/P (MAP) Pulse Ox O2 Delivery O2 Flow Rate FiO2 06/23/19 08:00 96.8 97 21 126/72 (90) 100 06/23/19 04:00 10.0 06/23/19 04:00 Non-Rebreather 10.0 06/23/19 04:00 98.2 88 18 136/88 (104) 100 06/23/19 03:36 92 06/23/19 00:15 100 06/23/19 00:00 Non-Rebreather 10.0 06/23/19 00:00 10.0 06/23/19 00:00 98.1 88 19 136/88 (104) 100 06/23/19 00:00 100 06/22/19 20:00 Non-Rebreather 10.0 06/22/19 20:00 97.9 77 19 140/70 (93) 99 06/22/19 20:00 10.0 06/22/19 20:00 90 06/22/19 16:00 Non-Rebreather 10.0 06/22/19 16:00 97.2 94 20 135/74 (94) 100 06/22/19 16:00 10.0 06/22/19 15:23 93 06/22/19 12:00 Non-Rebreather 10.0 06/22/19 12:00 97.7 92 24 142/68 (92) 100 06/22/19 12:00 10.0 06/22/19 11:45 99 Intake and Output 06/22/19 06/23/19 19:00 07:00 Intake Total 1115 ml 1465 ml Output Total 900 ml 700 ml Balance 215 ml 765 ml Free Water 200 ml 200 ml IV Total 600 ml 880 ml Tube Feeding 315 ml 385 ml Output Urine Total 900 ml 700 ml Height (Feet): 5 Height (Inches): 6.00 Weight (Pounds): 112 Objective [place]. Cv RR Skin - multiple decubitus ulcers: Sacral, hip, heels. (see pictures). CV RR Lungs B [place]. Abd. SNT. BS + E Muscle wasting. No CCE. Neuro alert, nonverbal, nonfocal. Ervin Mario MD Jun 23, 2019 09:45
--- NOTE | 2019-06-23 10:45 | NUR ---
NURSE NOTES: Gave report to Sriram GARCIA.
--- NOTE | 2019-06-23 10:46 | NUR ---
NURSE NOTES: Received report from JOES Guerin. Patient is awake, non-verbal and is in stable condition. No acute distress/SOB noted with O2 10L/min via non-rebreather mask. No s/s of pain noted. Will continue plan of care.
[2019-06-23] MEDS: Albuterol ud Inhalation HHN SCH ×4 (11:16→23:13)
[2019-06-23 12:00] VITALS: BP 133/75
--- NOTE | 2019-06-23 12:58 | Surgery Progress Note ---
Surgery Progress Note Subjective Additional Comments No acute events. Patient still nonverbal. On facemask for oxygen. Exam unchanged. Dressing changes going very well with nursing staff for taking great care patient. Objective Last 24 Hour Vital Signs Date Time Temp Pulse Resp B/P (MAP) Pulse Ox O2 Delivery O2 Flow Rate FiO2 06/23/19 12:00 10.0 06/23/19 12:00 Non-Rebreather 10.0 06/23/19 12:00 97.0 96 19 133/75 (94) 100 06/23/19 11:27 92 20 100 Venturi Mask 10.0 45 06/23/19 11:17 92 20 100 Venturi Mask 10.0 45 06/23/19 08:00 96.8 97 21 126/72 (90) 100 06/23/19 08:00 10.0 06/23/19 08:00 Non-Rebreather 10.0 06/23/19 07:44 93 06/23/19 04:00 10.0 06/23/19 04:00 Non-Rebreather 10.0 06/23/19 04:00 98.2 88 18 136/88 (104) 100 06/23/19 03:36 92 06/23/19 00:15 100 06/23/19 00:00 Non-Rebreather 10.0 06/23/19 00:00 10.0 06/23/19 00:00 98.1 88 19 136/88 (104) 100 06/23/19 00:00 100 06/22/19 20:00 Non-Rebreather 10.0 06/22/19 20:00 97.9 77 19 140/70 (93) 99 06/22/19 20:00 10.0 06/22/19 20:00 90 06/22/19 16:00 Non-Rebreather 10.0 06/22/19 16:00 97.2 94 20 135/74 (94) 100 06/22/19 16:00 10.0 06/22/19 15:23 93 I&O Intake and Output 06/22/19 06/23/19 18:59 06:59 Intake Total 1030 ml 1550 ml Output Total 450 ml 1150 ml Balance 580 ml 400 ml Free Water 200 ml 200 ml IV Total 550 ml 930 ml Tube Feeding 280 ml 420 ml Output Urine Total 450 ml 1150 ml Dressing: saturated Wound: other Drains: other Cardiovascular: RSR Respiratory: decreased breath sounds Abdomen: soft, present bowel sounds, other, non-distended Extremities: other Plan Problems: (1) Respiratory distress (2) Sepsis Assessment & Plan: leukocytosis abnormal labs on IV abx ?pna trend labs iv fluids (3) Decubitus ulcer of trochanteric region of left hip Assessment & Plan: Pt presented on admission with contractures, multiple pressure injuries. Full thickness pressure injury noted to upper cleft L earlobe.Base of wound 90% viable and moist with 10% slough at base.(L)1.5cm x (W00.6cm x (D)0.6cm. Non-blanchable erythema noted to cleft of [place]. Full thickness pressure injury L ischium .Base of wound has 90%pink granulation, 10% slough. Edges flat and adherent to base of wound.Dry pink epithelial borders. Periwound without erythema,induration .(L)2.5cm x (W)1.5cm. Resolving pressure injury R ischium. Dry pink epithelial base of wound .(L)4cm x (W)3.5cm. Hyperpigmentation from previous wounds noted to sacrum. Full thickness pressure injury with undermining L trochanter. [place] granulation with bone exposure at base of wound. Small amt non-odorous serous exudate noted (L)3.5cm x (W)3.5cm x (D)1.4cm ,undermining clockwise 12-12 by 3.8cm @12o' clock.Periwound without erythema or induration. Full thickness pressure injury idalia R tibia(L)9cm x (W)2.5cm. 100% pink granulation noted to base of wound. Edges flat and adherent to base of wound .Bone is palpable. Small amt non-odorous serous exudate noted. full thickness pressure injury Lateral L foot extending from L heel to distal / lateral L foot . Base of wound has approx 60% beefy red granulation intertwined with areas of mixed slough and necrosis.Edges macerated .Mild odor noted. (L)( 9cm x (W) 20cm.Periwound without erythema but L foot is edematous.Dorsal as[ pect of L foot noted to have dark brown discoloration. Full thickness pressure injury noted to distal/plantar aspect of L foot. Base of wound has 10% biofilm. 50% pink granulation with pink epithelial borders. Mild odor noted .Small amt seropurulent exudate noted. (L)1.4cm x (W)2cm. Full thickness pressure injury noted to plantar L hallux. Base of wound has 20% burgess slough with surrounding pink granulation. (+) maceration along borders. Small amt seropurulent exudate noted. Mild odor noted.(L)4.5cm x (W)2.5cm. Tx.Plan: Cleanse wounds L foot with Dakin's 0.125% daysi. Apply Dakin's moist gauze to wounds. Cover with ABD pads and wrap with Kerlix Twice daily and PRN. Cleanse wound R tibia with Dakin's 0.125% daysi.Apply Dakin's moist Gauze to wound. Apply Moisture Barrier periwound. Cover with Optifoam drsg Twice daily and prn. Cleanse wounds L trochanter,L ischium with Dakin's 0.125% daysi. Apply Dakin's moist 2-2 gauze into wound. Apply Moisture Barrier paste periwound. Cover with Optifoam drsg Twice daaily and prn. Apply Moisture Barrier to R ischium and sacrum. Cover each site with Optifoam drsg. Change every 3 days and prn. Cleanse L earlobe with Saline. Apply Therahoney with rolled Gauze. Cover with Optifoam drsg Daily and prn. APM/KAVON mattress overlay. Soft Pillow behind Knees to off-load heels. Reposition at least every 2hours or as tolerated. Rios Quiñones Jun 23, 2019 12:58
[2019-06-23] MEDS ORDERED: 1/2 NS 1000ml IV ONE (15:18)
[2019-06-23] MEDS ORDERED: Tubing IV Secondary IV ONE (15:18)
--- NOTE | 2019-06-23 15:30 | NUR ---
NURSE NOTES: No change in condition. Still on O2 10L/min via venturi mask. Will continue plan of care.
[2019-06-23 16:00] VITALS: BP 108/71
--- NOTE | 2019-06-23 16:45 | Consultation ---
DATE OF CONSULTATION: 06/23/2019 PULMONARY CONSULTATION REASON FOR CONSULTATION: Respiratory failure and pneumonia. HISTORY OF PRESENT ILLNESS: This is an unfortunate 83-year-old male, who has been in the hospital several times. The patient was recently at an outside facility and was discharged today in stable condition. The patient now presents for pneumonia, congestion, and respiratory distress. The patient's care discussed and reviewed with us to follow from a pulmonary standpoint. The patient's emergency room notes were reviewed. History and physical were reviewed. The patient had been previously Do Not Resuscitate, but now changed to full code. The patient was noted to be in respiratory distress. He has longstanding history of COPD aspiration. Events were noted. The patient is unable to give much in the way of history. The patient's chart again reviewed. Care discussed with nursing staff. PAST MEDICAL HISTORY: COPD, organic brain syndrome, decubitus, aspiration, and recurrent urosepsis. MEDICATIONS: Reviewed. ALLERGIES: Reviewed. FAMILY HISTORY: Not available. SOCIAL HISTORY: He resides in a prison facility, essentially bedbound. REVIEW OF SYSTEMS: Unobtainable. PHYSICAL EXAMINATION: GENERAL: An ill-appearing male, overall nonresponsive. VITAL SIGNS: Currently on non-rebreather, blood pressure 136/72, pulse 97, respirations 21, and saturation 100%. HEENT: Negative. NECK: Supple. The patient seems to be kyphotic. LUNGS: Coarse breath sounds. Moderate air entry. Scattered rhonchi. CARDIAC: Normal S1 and S2. Regular rate and rhythm without murmurs, rubs, or gallops. ABDOMEN: Soft, nontender, nondistended. G-tube in place. EXTREMITIES: No cyanosis or clubbing. The patient is contracted and rigid. LABORATORY AND DIAGNOSTIC DATA: Reviewed. White count 13.4, hemoglobin 8.3, and platelets 282,000. Chemistries noted, bicarbonate 20, BUN 20,and creatinine 0.5. The patient's albumin is 1.7. X-ray with patchy infiltrate. IMPRESSION: 1. Respiratory failure, acute on chronic. 2. Pneumonia, likely aspiration. 3. Chronic obstructive pulmonary disease, chronic. 4. Multiple decubitus. 5. Multiple contractures. 6. Severe protein-calorie malnutrition. 7. Recurrent urosepsis. RECOMMENDATIONS: 1. Supportive care. 2. IV hydration. 3. BiPAP management if needed. 4. Oxygen therapy as needed, taper as able. 5. Empiric antibiotics and Infectious Diseases followup. 6. Follow up cultures and exam. 7. Follow up laboratories and exam. 8. Nutritional support and close followup and recommendations and aspiration precautions. 9. The patient's prognosis is overall poor. 10. We will follow clinically for change and respiratory management, provide nebulizer therapy as well, and maintain DVT prophylaxis. Tim Andrade M.D. DR: Madeline JOB#: [id number] CC: HUONG
--- NOTE | 2019-06-23 17:15 | Consultation ---
DATE OF CONSULTATION: 06/23/2019 INFECTIOUS DISEASES CONSULTATION This consult is for coverage of Dr. Gomez CONSULTING PHYSICIAN: Lev Pardo M.D. PRIMARY ATTENDING PHYSICIAN: Ervin Mario M.D. REASON FOR CONSULTATION: Bacteremia, pneumonia, likely urinary tract infection. HISTORY OF PRESENT ILLNESS: This is an 83-year-old senior care resident admitted yesterday because of shortness of breath, altered mental status. The patient also has leukocytosis 15.2. He is nonverbal and not a source of the history. He had multiple admission to [facility] this year in November, February, March, April with septic shock, pneumonia, and UTI. 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 ALLERGIES: No known drug allergies. MEDICATIONS: Getting albuterol, vancomycin, Levaquin, cefepime, heparin. SOCIAL HISTORY: detention resident, bedbound, has a conservator. The patient is Full Code. PHYSICAL EXAMINATION: VITAL SIGNS: Temperature 96.8, pulse 92, blood pressure 126/72. GENERAL APPEARANCE: Seems to be thin. HEAD AND NECK: Getting oxygen by the Venturi mask. HEART: Normal rate, has a PICC line in previous admission. LUNGS: Clear with decreased sounds on the bases. ABDOMEN: Soft. There is G-tube in place. EXTREMITIES: Severe contracture of legs. SKIN: Multiple pressure ulcer more significant in the left foot and hip area, but compared to the previous admission are improving. NEUROLOGIC: Nonverbal. LABORATORY AND DIAGNOSTIC DATA: Sodium 140, potassium 3.8, chloride 112, bicarb 20, BUN 20, creatinine 0.5, glucose 91. WBC 13.4, coming down from 16.5 at the time of admission, hemoglobin 8.3, hematocrit 27.1, platelets 282. UA showed rbc's too numerous to count, wbc's 5-10, blood positive, nitrite negative. Chest x-ray, increased left perihilar opacity. VRE screen is positive. Blood culture x1 growing gram-positive cocci. Sputum culture growing gram-negative rods with many WBC. IMPRESSION: Bacteremia with gram-positive cocci may be related to: 1. Line infection. 2. Pneumonia. 3. Hematuria, we will try to rule out UTI. 4. Advanced dementia. 5. VRE colonization. 6. Anemia. 7. Pressure ulcer, generally improving. 8. COPD. 9. Gastrostomy status. 10. Functional quadriplegia. RECOMMENDATIONS: We will continue with cefepime and vancomycin. We will follow up the culture. May need the change of the PICC line. At the end of my exam, I thank Dr. Mario, for involving me in the care of this patient. Lev Pardo M.D. DR: Sonia JOB#: [id number] CC:
--- NOTE | 2019-06-23 19:10 | NUR ---
NURSE NOTES: Pt report received from Sriram GARCIA ASAF. pt appears to be resting in bed comfortably no signs symptoms of distress noted. pt is alert and oriented times 1 and is unable to respond to commands, however pupils are round and reactive to light and accommodating bilaterally. pt is on a heavy equipment technician able to show NSR, no acute signs symptoms of distress noted. pt is on 2L NC and able to sat up to 100%, no signs symptoms of distress noted. pt has a aguilera, patented and able to drain to gravity, no distress noted. bed locked and low, bed armed, bed rails up times 3, call light is within easy reach. will proceed with plan of care. Addendum: 06/23/19 at 1959 by KAYLEE CAMERON RN NURSE NOTES: TIME:[id number] Pt report received from Sriram GARCIA ASAF. pt appears to be resting in bed comfortably no signs symptoms of distress noted. pt is alert and oriented times 1 and is unable to respond to commands, however pupils are round and reactive to light and accommodating bilaterally. pt is on a heavy equipment technician able to show NSR, no acute signs symptoms of distress noted. pt is on 10L Non rebreather and able to sat up to 100%, no signs symptoms of distress noted. pt has a aguilera, patented and able to drain to gravity, no distress noted. bed locked and low, bed armed, bed rails up times 3, call light is within easy reach. will proceed with plan of care.
--- NOTE | 2019-06-23 19:22 | NUR ---
HAND-OFF: Report given to JOSE Salinas. Endorsed plan of care.
--- NOTE | 2019-06-23 19:55 | NUR ---
NURSE NOTES: Rt Ross stated he is going to titrate O2 non rebreather to 6L. pt is satting 99%, pt is stable.
[2019-06-23 20:00] VITALS: BP 135/75
[2019-06-23] MEDS: Cefepime HCl 1 GM in D5W 55 ML IVPB SCH (20:29)
--- NOTE | 2019-06-23 23:30 | NUR ---
NURSE NOTES: Pt is now on 2L NC and able to sat up to 98%, no respiratory distress noted.
[2019-06-24] VITALS: BP 128/86
--- NOTE | 2019-06-24 01:06 | NUR ---
NURSE NOTES: called [facility]ong and spoke to arie to clarify vanco 750mg Iv dosage (time 06/24/19- 99) to give, awaiting call back from pharmacist. medication on hold until further notice.
--- NOTE | 2019-06-24 01:19 | NUR ---
NURSE NOTES: Spoke with Anastasia, Pharmacist from [facility] [employer]. she stated Vanco is ok to give.
[2019-06-24] MEDS: Vancomycin 750mg/NS 275ml IVPB SCH ×2 (01:25)
[2019-06-24] MEDS: Albuterol ud Inhalation HHN SCH ×6 (02:36→23:29)
[2019-06-24 04:00] VITALS: BP 133/91
--- NOTE | 2019-06-24 04:18 | NUR ---
NURSE NOTES: Hair from Microbiology/ lab called. pt is MDR sputum positive.
[2019-06-24 05:16] LABS: BASOPHILS % (AUTO) 0.7 % (0.0-2.0); EOSINOPHILS % (AUTO) 2.9 % (0.0-3.0); HEMATOCRIT 27.6 % (42.0-52.0); HEMOGLOBIN 8.4 G/DL (14.2-18.0); LYMPHOCYTES % (AUTO) 25.5 % (20.0-45.0); MEAN CORPUSCULAR VOLUME 77 FL (80-99); MONOCYTES % (AUTO) 8.9 % (1.0-10.0); NEUTROPHILS % (AUTO) 61.9 % (45.0-75.0); PLATELET COUNT 297 K/UL (150-450); RED BLOOD COUNT 3.59 M/UL (4.70-6.10); RED CELL DISTRIBUTION WIDTH 23.2 % (11.6-14.8); WHITE BLOOD COUNT 4.5 K/UL (4.8-10.8)
[2019-06-24 05:31] LABS: ANION GAP 6 mmol/L (5-15); BLOOD UREA NITROGEN 9 mg/dL (7-18); CALCIUM 7.9 MG/DL (8.5-10.1); CARBON DIOXIDE 25 MMOL/L (21-32); CHLORIDE 105 MMOL/L (98-107); CREATININE 0.4 MG/DL (0.55-1.30); POTASSIUM 3.8 MMOL/L (3.5-5.1); SODIUM 136 MMOL/L (136-145)
--- NOTE | 2019-06-24 07:20 | NUR ---
HAND-OFF: Report given to Charlene GARCIA ASAF.
--- NOTE | 2019-06-24 07:21 | NUR ---
NURSE NOTES: Received patient in bed. On nasal cannula at 2LPM. On continuous GTF. Anderson cath inplace. Contact isolation observed. Will continue plan of care.
[2019-06-24 08:00] VITALS: BP 146/90
--- NOTE | 2019-06-24 08:15 | Pulmonology Progress Note ---
Assessment/Plan Assessment/Plan IMPRESSION: 1. Respiratory failure, acute on chronic. 2. Pneumonia, likely aspiration. 3. Chronic obstructive pulmonary disease, chronic. 4. Multiple decubitus. 5. Multiple contractures. 6. Severe protein-calorie malnutrition. 7. Recurrent urosepsis. 9. MDR sputum 10. VRE PLAN isolation ID noted cultures reviewed antibiotics oxygen suction neb therapy aspiration precautions maintain meds monitor for change advanced directives impression, plan, and exam edited and reviewed in detail care discussed with RN Subjective ROS Limited/Unobtainable: Yes Allergies: Coded Allergies: No Known Allergies (Unverified , 02/25/19) Subjective in bed contracted mild congestion noted Objective Last 24 Hour Vital Signs Date Time Temp Pulse Resp B/P (MAP) Pulse Ox O2 Delivery O2 Flow Rate FiO2 06/24/19 08:00 97.7 96 24 146/90 (108) 100 06/24/19 04:00 Nasal Cannula 2.0 06/24/19 04:00 98.5 93 19 133/91 (105) 100 06/24/19 03:34 94 06/24/19 02:38 86 20 100 Nasal Cannula 2.0 28 06/24/19 02:26 85 20 99 Nasal Cannula 2.0 28 06/24/19 00:00 Nasal Cannula 2.0 06/24/19 00:00 98.2 73 19 128/86 (100) 99 06/23/19 23:24 86 06/23/19 23:14 85 20 100 Venturi Mask 6.0 35 06/23/19 23:03 83 20 98 Venturi Mask 6.0 35 06/23/19 20:00 Venturi Mask 10.0 06/23/19 20:00 10.0 06/23/19 20:00 98.5 83 19 135/75 (95) 99 06/23/19 19:53 98 Venturi Mask 6.0 35 06/23/19 19:51 92 20 100 Venturi Mask 6.0 35 06/23/19 19:38 88 20 98 Venturi Mask 6.0 35 06/23/19 19:01 85 06/23/19 16:00 86 06/23/19 16:00 Venturi Mask 10.0 06/23/19 16:00 98.7 87 19 108/71 (83) 100 06/23/19 16:00 10.0 06/23/19 15:13 89 20 100 Venturi Mask 10.0 45 06/23/19 15:03 87 20 100 Venturi Mask 10.0 45 06/23/19 12:00 10.0 06/23/19 12:00 Venturi Mask 10.0 06/23/19 12:00 97.0 96 19 133/75 (94) 100 06/23/19 12:00 87 06/23/19 11:27 92 20 100 Venturi Mask 10.0 45 06/23/19 11:17 92 20 100 Venturi Mask 10.0 45 Intake and Output 06/23/19 06/24/19 19:00 07:00 Intake Total 1120 ml 1650 ml Output Total 640 ml 700 ml Balance 480 ml 950 ml Free Water 100 ml 300 ml IV Total 600 ml 930 ml Tube Feeding 420 ml 420 ml Output Urine Total 640 ml 700 ml # Bowel Movements 1 Objective GENERAL: An ill-appearing male, overall nonresponsive. on oxygen HEENT: Negative. NECK: Supple. The patient seems to be kyphotic. LUNGS: Coarse breath sounds. Moderate air entry. persistent rhonchi. CARDIAC: Normal S1 and S2. Regular rate and rhythm without murmurs, rubs, or gallops. ABDOMEN: Soft, nontender, nondistended. G-tube in place. EXTREMITIES: No cyanosis or clubbing. The patient is contracted and rigid. reviewed and examined Microbiology Date/Time Source Procedure Growth Status 06/21/19 23:45 Blood Blood Culture - Preliminary NO GROWTH AFTER 48 HOURS Resulted 06/21/19 23:30 Blood Blood Culture - Preliminary Gram Positive Cocci Resulted 06/22/19 00:05 Sputum Gram Stain - Final Resulted 06/22/19 00:05 Sputum Culture - Preliminary A.baumanii Complx - Mdr Resulted 06/22/19 01:34 Rectum VRE Culture - Final Enterococcus Faecium - Vre Complete Laboratory Tests 06/24/19 03:30: White Blood Count 4.5L, Red Blood Count 3.59L, Hemoglobin 8.4L, Hematocrit 27.6L , Mean Corpuscular Volume 77L, Mean Corpuscular Hemoglobin 23.3L, Mean Corpuscular Hemoglobin Concent 30.3L, Red Cell Distribution Width 23.2H, Platelet Count 297, Mean Platelet Volume 5.8L, Neutrophils (%) (Auto) 61.9, Lymphocytes (%) (Auto) 25.5, Monocytes (%) (Auto) 8.9, Eosinophils (%) (Auto) 2.9, Basophils (%) (Auto) 0.7, Sodium Level 136, Potassium Level 3.8, Chloride Level 105, Carbon Dioxide Level 25, Anion Gap 6, Blood Urea Nitrogen 9, Creatinine 0.4L, Estimat Glomerular Filtration Rate , Glucose Level 95, Calcium Level 7.9L, Magnesium Level 1.8 Current Medications Medications (Trade) Dose Ordered Sig/Mckenzie Route PRN Reason Start Time Stop Time Status Last Admin Dose Admin Albuterol Sulfate (Proventil) 2.5 mg Q4HRT HHN 06/23/19 11:00 06/28/19 10:59 06/24/19 02:36 Cefepime HCl 1 gm/ Dextrose 55 ml @ 110 mls/hr Q24H IVPB 06/22/19 21:00 06/29/19 20:59 06/23/19 20:29 Heparin Sodium (Porcine) (Heparin 5000 units/ml) 5,000 units EVERY 12 HOURS SUBQ 06/22/19 09:00 07/22/19 08:59 06/23/19 20:32 Levofloxacin 50 ml @ 50 mls/hr Q24H IVPB 06/23/19 00:00 06/30/19 00:00 06/24/19 00:08 Sodium Hypochlorite (Dakin's Quarter Strength) 1 applic BEDTIME TOPIC 06/24/19 21:00 07/23/19 08:59 Sodium Chloride 1,000 ml @ 50 mls/hr Q20H IV 06/22/19 04:15 07/22/19 04:14 06/23/19 20:29 Vancomycin HCl (Vanco rx to dose) 1 ea DAILY PRN MISC Per rx protocol 06/22/19 04:15 07/22/19 04:14 Vancomycin HCl 750 mg/Sodium Chloride 275 ml @ 183.333 mls/hr Q24H IVPB 06/23/19 01:00 06/28/19 00:59 06/24/19 01:25 Tim Andrade MD Jun 24, 2019 08:15
--- NOTE | 2019-06-24 08:27 | NUR ---
RADIOLOGY DEPT., CHEST X-RAY DONE.-P.DYE
[2019-06-24] MEDS: Heparin 5000 units/ml inj SUBQ SCH ×2 (08:57→21:22)
--- NOTE | 2019-06-24 10:08 | Diagnostic Imaging Report ---
Indication: Shortness of breath Technique: One view of the chest Comparison: 06/22/2019 Findings: There is persistent atelectasis of the right lung base. The right costophrenic angle is slightly blunted, could indicate a small pleural effusion. Left mid and lower lung infiltrates persist, unchanged Impression: Possible developing small right pleural effusion Otherwise stable findings as described
--- NOTE | 2019-06-24 10:14 | General Progress Note ---
Assessment/Plan Assessment/Plan: Sepsis - BC 1:2 GPC in clusters. On broad-spectrum IV Abx per ID. Most likely due to infected decubiti, although pneumonia and Urosepsis are also potential sources. To clarify Code Status with Conservator. Left VM Subjective Allergies: Coded Allergies: No Known Allergies (Unverified , 02/25/19) Subjective Nonverbal. Objective Last 24 Hour Vital Signs Date Time Temp Pulse Resp B/P (MAP) Pulse Ox O2 Delivery O2 Flow Rate FiO2 06/24/19 08:00 97.7 96 24 146/90 (108) 100 06/24/19 08:00 Nasal Cannula 2.0 06/24/19 07:43 86 06/24/19 07:20 89 22 100 Nasal Cannula 2.0 06/24/19 07:15 99 Nasal Cannula 2.0 28 06/24/19 07:15 86 18 99 Nasal Cannula 2.0 28 06/24/19 04:00 Nasal Cannula 2.0 06/24/19 04:00 98.5 93 19 133/91 (105) 100 06/24/19 03:34 94 06/24/19 02:38 86 20 100 Nasal Cannula 2.0 28 06/24/19 02:26 85 20 99 Nasal Cannula 2.0 28 06/24/19 00:00 Nasal Cannula 2.0 06/24/19 00:00 98.2 73 19 128/86 (100) 99 06/23/19 23:24 86 06/23/19 23:14 85 20 100 Venturi Mask 6.0 35 06/23/19 23:03 83 20 98 Venturi Mask 6.0 35 06/23/19 20:00 Venturi Mask 10.0 06/23/19 20:00 10.0 06/23/19 20:00 98.5 83 19 135/75 (95) 99 06/23/19 19:53 98 Venturi Mask 6.0 35 06/23/19 19:51 92 20 100 Venturi Mask 6.0 35 06/23/19 19:38 88 20 98 Venturi Mask 6.0 35 06/23/19 19:01 85 06/23/19 16:00 86 06/23/19 16:00 Venturi Mask 10.0 06/23/19 16:00 98.7 87 19 108/71 (83) 100 06/23/19 16:00 10.0 06/23/19 15:13 89 20 100 Venturi Mask 10.0 45 06/23/19 15:03 87 20 100 Venturi Mask 10.0 45 06/23/19 12:00 10.0 06/23/19 12:00 Venturi Mask 10.0 06/23/19 12:00 97.0 96 19 133/75 (94) 100 06/23/19 12:00 87 06/23/19 11:27 92 20 100 Venturi Mask 10.0 45 06/23/19 11:17 92 20 100 Venturi Mask 10.0 45 Intake and Output 06/23/19 06/24/19 19:00 07:00 Intake Total 1120 ml 1685 ml Output Total 640 ml 700 ml Balance 480 ml 985 ml Free Water 100 ml 300 ml IV Total 600 ml 930 ml Tube Feeding 420 ml 455 ml Output Urine Total 640 ml 700 ml # Bowel Movements 1 Laboratory Tests 06/24/19 03:30: White Blood Count 4.5L, Red Blood Count 3.59L, Hemoglobin 8.4L, Hematocrit 27.6L , Mean Corpuscular Volume 77L, Mean Corpuscular Hemoglobin 23.3L, Mean Corpuscular Hemoglobin Concent 30.3L, Red Cell Distribution Width 23.2H, Platelet Count 297, Mean Platelet Volume 5.8L, Neutrophils (%) (Auto) 61.9, Lymphocytes (%) (Auto) 25.5, Monocytes (%) (Auto) 8.9, Eosinophils (%) (Auto) 2.9, Basophils (%) (Auto) 0.7, Sodium Level 136, Potassium Level 3.8, Chloride Level 105, Carbon Dioxide Level 25, Anion Gap 6, Blood Urea Nitrogen 9, Creatinine 0.4L, Estimat Glomerular Filtration Rate , Glucose Level 95, Calcium Level 7.9L, Magnesium Level 1.8 Height (Feet): 5 Height (Inches): 6.00 Weight (Pounds): 112 Objective [place]. Cv RR Skin - multiple decubitus ulcers: Sacral, hip, heels. (see pictures). CV RR Lungs B [place]. Abd. SNT. BS + E Muscle wasting. No CCE. Neuro alert, nonverbal, nonfocal. Ervin Mario MD Jun 24, 2019 10:14
--- NOTE | 2019-06-24 10:30 | NUR ---
NURSE NOTES: Dr. Lev Pardo made aware regarding blood culture result. He said that he will check patient. No new order at this time.
--- NOTE | 2019-06-24 11:08 | NUR ---
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 98.7 HR 96 RR 24 B/P 146/90 2L NC CA 7.9 CXR= POSSIBLE DEVELOPMENT OF RIGHT PLEURAL EFFUSION IS: IVF NS @ 50ML/HR LEVAQUIN IV VANCO IV CEFEPIME IV STEP DOWN STATUS
[2019-06-24 12:00] VITALS: BP 134/70
--- NOTE | 2019-06-24 12:00 | NUR ---
NURSE NOTES: Wound care nurse at bedside. Wound dressing changed per protocol.
--- NOTE | 2019-06-24 12:22 | Surgery Progress Note ---
Surgery Progress Note Subjective Additional Comments Patient seen and examined at bedside. No acute events. Leukocytosis trended down to near leukopenia. H&H stable. Electrolytes noted. Dressings changed. Objective Last 24 Hour Vital Signs Date Time Temp Pulse Resp B/P (MAP) Pulse Ox O2 Delivery O2 Flow Rate FiO2 06/24/19 11:07 92 18 100 Nasal Cannula 2.0 06/24/19 11:00 95 18 98 Nasal Cannula 2.0 06/24/19 08:00 97.7 96 24 146/90 (108) 100 06/24/19 08:00 Nasal Cannula 2.0 06/24/19 07:43 86 06/24/19 07:20 89 22 100 Nasal Cannula 2.0 06/24/19 07:15 99 Nasal Cannula 2.0 06/24/19 07:15 86 18 99 Nasal Cannula 2.0 06/24/19 04:00 Nasal Cannula 2.0 06/24/19 04:00 98.5 93 19 133/91 (105) 100 06/24/19 03:34 94 06/24/19 02:38 86 20 100 Nasal Cannula 2.0 06/24/19 02:26 85 20 99 Nasal Cannula 2.0 06/24/19 00:00 Nasal Cannula 2.0 06/24/19 00:00 98.2 73 19 128/86 (100) 99 06/23/19 23:24 86 06/23/19 23:14 85 20 100 Venturi Mask 6.0 35 06/23/19 23:03 83 20 98 Venturi Mask 6.0 35 06/23/19 20:00 Venturi Mask 10.0 06/23/19 20:00 10.0 06/23/19 20:00 98.5 83 19 135/75 (95) 99 06/23/19 19:53 98 Venturi Mask 6.0 35 06/23/19 19:51 92 20 100 Venturi Mask 6.0 35 06/23/19 19:38 88 20 98 Venturi Mask 6.0 35 06/23/19 19:01 85 06/23/19 16:00 86 06/23/19 16:00 Venturi Mask 10.0 06/23/19 16:00 98.7 87 19 108/71 (83) 100 06/23/19 16:00 10.0 06/23/19 15:13 89 20 100 Venturi Mask 10.0 45 06/23/19 15:03 87 20 100 Venturi Mask 10.0 45 I&O Intake and Output 06/23/19 06/24/19 18:59 06:59 Intake Total 1070 ml 1735 ml Output Total 640 ml 700 ml Balance 430 ml 1035 ml Free Water 100 ml 300 ml IV Total 550 ml 980 ml Tube Feeding 420 ml 455 ml Output Urine Total 640 ml 700 ml # Bowel Movements 1 Dressing: saturated Wound: other Drains: other Cardiovascular: RSR Respiratory: decreased breath sounds Abdomen: soft, present bowel sounds, other, non-distended Extremities: no cyanosis, other Laboratory Tests Test 06/24/19 03:30 White Blood Count 4.5 K/UL (4.8-10.8) L Red Blood Count 3.59 M/UL (4.70-6.10) L Hemoglobin 8.4 G/DL (14.2-18.0) L Hematocrit 27.6 % (42.0-52.0) L Mean Corpuscular Volume 77 FL (80-99) L Mean Corpuscular Hemoglobin 23.3 PG (27.0-31.0) L Mean Corpuscular Hemoglobin Concent 30.3 G/DL (32.0-36.0) L Red Cell Distribution Width 23.2 % (11.6-14.8) H Platelet Count 297 K/UL (150-450) Mean Platelet Volume 5.8 FL (6.5-10.1) L Neutrophils (%) (Auto) 61.9 % (45.0-75.0) Lymphocytes (%) (Auto) 25.5 % (20.0-45.0) Monocytes (%) (Auto) 8.9 % (1.0-10.0) Eosinophils (%) (Auto) 2.9 % (0.0-3.0) Basophils (%) (Auto) 0.7 % (0.0-2.0) Sodium Level 136 MMOL/L (136-145) Potassium Level 3.8 MMOL/L (3.5-5.1) Chloride Level 105 MMOL/L (98-107) Carbon Dioxide Level 25 MMOL/L (21-32) Anion Gap 6 mmol/L (5-15) Blood Urea Nitrogen 9 mg/dL (7-18) Creatinine 0.4 MG/DL (0.55-1.30) L Estimat Glomerular Filtration Rate mL/min (>60) Glucose Level 95 MG/DL (74-106) Calcium Level 7.9 MG/DL (8.5-10.1) L Magnesium Level 1.8 MG/DL (1.8-2.4) Plan Problems: (1) Respiratory distress (2) Sepsis Assessment & Plan: leukocytosis - now low abnormal labs improving on IV abx cxr noted trend labs iv fluids (3) Decubitus ulcer of trochanteric region of left hip Assessment & Plan: Pt presented on admission with contractures, multiple pressure injuries. Full thickness pressure injury noted to upper cleft L earlobe.Base of wound 90% viable and moist with 10% slough at base.(L)1.5cm x (W00.6cm x (D)0.6cm. Non-blanchable erythema noted to cleft of Earlobe. Full thickness pressure injury L ischium .Base of wound has 90%pink granulation, 10% slough. Edges flat and adherent to base of wound.Dry pink epithelial borders. Periwound without erythema,induration .(L)2.5cm x (W)1.5cm. Resolving pressure injury R ischium. Dry pink epithelial base of wound .(L)4cm x (W)3.5cm. Hyperpigmentation from previous wounds noted to sacrum. Full thickness pressure injury with undermining L trochanter. [place] granulation with bone exposure at base of wound. Small amt non-odorous serous exudate noted (L)3.5cm x (W)3.5cm x (D)1.4cm ,undermining clockwise 12-12 by 3.8cm @12o' clock.Periwound without erythema or induration. Full thickness pressure injury idalia R tibia(L)9cm x (W)2.5cm. 100% pink granulation noted to base of wound. Edges flat and adherent to base of wound .Bone is palpable. Small amt non-odorous serous exudate noted. full thickness pressure injury Lateral L foot extending from L heel to distal / lateral L foot . Base of wound has approx 60% beefy red granulation intertwined with areas of mixed slough and necrosis.Edges macerated .Mild odor noted. (L)( 9cm x (W) 20cm.Periwound without erythema but L foot is edematous.Dorsal as[ pect of L foot noted to have dark brown discoloration. Full thickness pressure injury noted to distal/plantar aspect of L foot. Base of wound has 10% biofilm. 50% pink granulation with pink epithelial borders. Mild odor noted .Small amt seropurulent exudate noted. (L)1.4cm x (W)2cm. Full thickness pressure injury noted to plantar L hallux. Base of wound has 20% burgess slough with surrounding pink granulation. (+) maceration along borders. Small amt seropurulent exudate noted. Mild odor noted.(L)4.5cm x (W)2.5cm. Tx.Plan: Cleanse wounds L foot with Dakin's 0.125% daysi. Apply Dakin's moist gauze to wounds. Cover with ABD pads and wrap with Kerlix Twice daily and PRN. Cleanse wound R tibia with Dakin's 0.125% daysi.Apply Dakin's moist Gauze to wound. Apply Moisture Barrier periwound. Cover with Optifoam drsg Twice daily and prn. Cleanse wounds L trochanter,L ischium with Dakin's 0.125% daysi. Apply Dakin's moist 2-2 gauze into wound. Apply Moisture Barrier paste periwound. Cover with Optifoam drsg Twice daaily and prn. Apply Moisture Barrier to R ischium and sacrum. Cover each site with Optifoam drsg. Change every 3 days and prn. Cleanse L earlobe with Saline. Apply Therahoney with rolled Gauze. Cover with Optifoam drsg Daily and prn. APM/KAVON mattress overlay. Soft Pillow behind Knees to off-load heels. Reposition at least every 2hours or as tolerated. Rios Quiñones Jun 24, 2019 12:22
--- NOTE | 2019-06-24 13:08 | Infectious Diseases Prog Note ---
Assessment/Plan Assessment/Plan IMPRESSION: 1.Bacteremia with gram-positive cocci , ? line infection 2. Pneumonia with MDR Acinetobacter 3. Hematuria, we will try to rule out UTI. 4. Advanced dementia. 5. VRE colonization. 6. Anemia. 7. Pressure ulcer, generally improving. 8. COPD. 9. 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 RECOMMENDATIONS: Discontinue Levaquin & cefepime Continue vancomycin Start on Polymyxin B Consider PICC line change Subjective ROS Limited/Unobtainable: Yes Constitutional: Reports: no symptoms Allergies: Coded Allergies: No Known Allergies (Unverified , 02/25/19) Objective Vital Signs Last 24 Hour Vital Signs Date Time Temp Pulse Resp B/P (MAP) Pulse Ox O2 Delivery O2 Flow Rate FiO2 06/24/19 12:00 98.0 95 23 134/70 (91) 100 06/24/19 11:07 92 18 100 Nasal Cannula 2.0 06/24/19 11:00 95 18 98 Nasal Cannula 2.0 06/24/19 08:00 97.7 96 24 146/90 (108) 100 06/24/19 08:00 Nasal Cannula 2.0 06/24/19 07:43 86 06/24/19 07:20 89 22 100 Nasal Cannula 2.0 06/24/19 07:15 99 Nasal Cannula 2.0 06/24/19 07:15 86 18 99 Nasal Cannula 2.0 06/24/19 04:00 Nasal Cannula 2.0 06/24/19 04:00 98.5 93 19 133/91 (105) 100 06/24/19 03:34 94 06/24/19 02:38 86 20 100 Nasal Cannula 2.0 28 06/24/19 02:26 85 20 99 Nasal Cannula 2.0 28 06/24/19 00:00 Nasal Cannula 2.0 06/24/19 00:00 98.2 73 19 128/86 (100) 99 06/23/19 23:24 86 06/23/19 23:14 85 20 100 Venturi Mask 6.0 35 06/23/19 23:03 83 20 98 Venturi Mask 6.0 35 06/23/19 20:00 Venturi Mask 10.0 06/23/19 20:00 10.0 06/23/19 20:00 98.5 83 19 135/75 (95) 99 06/23/19 19:53 98 Venturi Mask 6.0 35 06/23/19 19:51 92 20 100 Venturi Mask 6.0 35 06/23/19 19:38 88 20 98 Venturi Mask 6.0 35 06/23/19 19:01 85 06/23/19 16:00 86 06/23/19 16:00 Venturi Mask 10.0 06/23/19 16:00 98.7 87 19 108/71 (83) 100 06/23/19 16:00 10.0 06/23/19 15:13 89 20 100 Venturi Mask 10.0 45 06/23/19 15:03 87 20 100 Venturi Mask 10.0 45 Height (Feet): 5 Height (Inches): 6.00 Weight (Pounds): 112 General Appearance: cachetic HEENT: mucous membranes moist Respiratory/Chest: lungs clear Cardiovascular: normal rate, other - R arm PICC line Abdomen: soft, non tender, other - GT feeding Extremities: other - contracture of legs Skin: ulcers Neurologic/Psychiatric: aphasia, other - opens eyes Microbiology Date/Time Source Procedure Growth Status 06/21/19 23:45 Blood Blood Culture - Preliminary Resulted 06/21/19 23:30 Blood Blood Culture - Preliminary Gram Positive Cocci Resulted 06/22/19 00:05 Sputum Gram Stain - Final Resulted 06/22/19 00:05 Sputum Culture - Preliminary A.baumanii Complx - Mdr Resulted 06/22/19 01:34 Rectum VRE Culture - Final Enterococcus Faecium - Vre Complete Laboratory Tests Test 06/24/19 03:30 White Blood Count 4.5 K/UL (4.8-10.8) L Red Blood Count 3.59 M/UL (4.70-6.10) L Hemoglobin 8.4 G/DL (14.2-18.0) L Hematocrit 27.6 % (42.0-52.0) L Mean Corpuscular Volume 77 FL (80-99) L Mean Corpuscular Hemoglobin 23.3 PG (27.0-31.0) L Mean Corpuscular Hemoglobin Concent 30.3 G/DL (32.0-36.0) L Red Cell Distribution Width 23.2 % (11.6-14.8) H Platelet Count 297 K/UL (150-450) Mean Platelet Volume 5.8 FL (6.5-10.1) L Neutrophils (%) (Auto) 61.9 % (45.0-75.0) Lymphocytes (%) (Auto) 25.5 % (20.0-45.0) Monocytes (%) (Auto) 8.9 % (1.0-10.0) Eosinophils (%) (Auto) 2.9 % (0.0-3.0) Basophils (%) (Auto) 0.7 % (0.0-2.0) Sodium Level 136 MMOL/L (136-145) Potassium Level 3.8 MMOL/L (3.5-5.1) Chloride Level 105 MMOL/L (98-107) Carbon Dioxide Level 25 MMOL/L (21-32) Anion Gap 6 mmol/L (5-15) Blood Urea Nitrogen 9 mg/dL (7-18) Creatinine 0.4 MG/DL (0.55-1.30) L Estimat Glomerular Filtration Rate mL/min (>60) Glucose Level 95 MG/DL (74-106) Calcium Level 7.9 MG/DL (8.5-10.1) L Magnesium Level 1.8 MG/DL (1.8-2.4) Current Medications Medications (Trade) Dose Ordered Sig/Mckenzie Route PRN Reason Start Time Stop Time Status Last Admin Dose Admin Albuterol Sulfate (Proventil) 2.5 mg Q4HRT HHN 06/23/19 11:00 06/28/19 10:59 06/24/19 11:12 Cefepime HCl 1 gm/ Dextrose 55 ml @ 110 mls/hr Q24H IVPB 06/22/19 21:00 06/29/19 20:59 06/23/19 20:29 Heparin Sodium (Porcine) (Heparin 5000 units/ml) 5,000 units EVERY 12 HOURS SUBQ 06/22/19 09:00 07/22/19 08:59 06/24/19 08:57 Levofloxacin 50 ml @ 50 mls/hr Q24H IVPB 06/23/19 00:00 06/30/19 00:00 06/24/19 00:08 Sodium Hypochlorite (Dakin's Quarter Strength) 1 applic BEDTIME TOPIC 06/24/19 21:00 07/23/19 08:59 Sodium Chloride 1,000 ml @ 50 mls/hr Q20H IV 06/22/19 04:15 07/22/19 04:14 06/23/19 20:29 Vancomycin HCl (Vanco rx to dose) 1 ea DAILY PRN MISC Per rx protocol 06/22/19 04:15 07/22/19 04:14 Vancomycin HCl 750 mg/Sodium Chloride 275 ml @ 183.333 mls/hr Q24H IVPB 06/23/19 01:00 06/28/19 00:59 06/24/19 01:25 Lev Pardo MD Jun 24, 2019 13:08
--- NOTE | 2019-06-24 13:50 | NUR ---
NURSE NOTES:WOUND CARE NOTES: Pt presented on admission with contractures,multiple pressure injuries. Full thickness pressure injury noted to L ear. Base of wound is pink-moist with macerated borders. Small amt. non-odorous exudate noted.(L)1cm x (W)0.5cm x0.2cm. Full thickness sacral pressure injury noted. Base of wound 75% pink granulation ,25% slough .edges adherent to base of wound. Brown discoloration without fluctuance /induration noted periwound.(L)4cm x (W)6cm. Full thickness pressure injury with undermining L trochanter. Base of wound moist-pink , bone is palpable. Periwound is dark without erythema or induration.(L)5.5cm x (W)3cm x (D)0.8cm,undermining clockwise 12-12 by 4.1cm @11o'clock. Full thickness pressure injury L ischium .Base of wound 40% pink granulation ,60% slough ,erythematous borders. Periwound dark and indurated. (L)2cm x (W)2cm. Scrotal area area red. Full thickness pressure injury base of scrotum. Base of wound has 75% slough ,25% moist and viable. Full thickness pressure injury base of scrotum. Base of wound has 75% slough ,25% moist and viable. Full thickness wound idalia R tibia. [place] granulation at base of wound. Edges adherent. No odor or exudate noted. Periwound without erythema or elevation in skin temp.(L)4.5cm x (W)1.5cm. DTPI noted to lateral R heel. Base of wound purple and fluctuant with surrounding maroon borders.(L)2.3xcm x (W)3cm. Full thickness wound lateral/plantar L foot(L)7.4cm x (W)18.5cm x (D)1.4cm. [place] granulation at base of wound with scattered slough.Bone is palpable. Mild odor noted .Small amt seropurulent exudate noted. Edges macerated. Periwound is fluctuant. L st metatarsal flaccid. Full thickness ulcer noted to plantar L foot. Base of wound moist -viable with pink epithelial borders. Periwound is fluctuant. Small amt serous exudate noted. Full thickness wound medial L foot. 75% slough at base of wound,25% viable. Macerated borders. Mild odor noted. (L)3cm x (W)3cm. Stable dry eschar L hallux (L)0.6cm x (W)1cm. L 2nd -5th metatarsal are dusky in colour. Tx.Plan: Cleanse all wounds Buttocks with Dakin's 0.125% daysi. Apply Dakin's moist gauze to wounds. Cover with Optifoam drsgs. Cleanse wounds L foot with Dakin's 0.125% daysi. Apply Dakin's moist gauze to wounds. Cover with ABD pads and wrap with Kerlix daily and prn. Cleanse wounds R tibia, and R foot with Dakin's 0.125% daysi. Apply Dakin's moist gauze cover with Abd pads and wrap with Kerlix daily and prn. Apply Moisture Barrier Paste to wound on scrotum. Cover with Optifoam drsg. Daily and prn. APM/KAVON Mattress overlay. Reposition at least every 2hours or as tolerated. PLace pillow between knees. Off-load heels with pillow.
[2019-06-24] MEDS: Polymyxin B Sulfate 250,000 UNITS in D5W 275 ML IV SCH ×2 (14:23→21:20)
[2019-06-24 16:00] VITALS: BP 108/71
--- NOTE | 2019-06-24 17:00 | NUR ---
NURSE NOTES: Patient's son at bedside.
--- NOTE | 2019-06-24 19:10 | NUR ---
HAND-OFF: Report given to JOSE Adams.
--- NOTE | 2019-06-24 19:11 | NUR ---
NURSE NOTES: Received patient from Charlene RN, patient is awake and traces with eyes. Receiving oxygen via Nasal cannula at 2L/min, tolerating well, showing no signs of respiratory distress. Gtube is patent and receiving Gevity 1.2 at 35cc/hr, tolerating well, and no residuals. IV site is Right Upper Arm PICC, receiving 1/2 NS @50cc/hr. Bed is locked, palced in lowest position, side rails up x3, bed alarm on. Will continue to monitor.
[2019-06-24 20:00] VITALS: BP 145/92
[2019-06-24] MEDS: Dakin's 0.125% Soln (Quarter Strength) 16oz TOPIC SCH (21:21)
[2019-06-25] VITALS: BP 152/75
[2019-06-25] MEDS: Vancomycin 750mg/NS 275ml IVPB SCH ×2 (00:50)
[2019-06-25] MEDS: Vancomycin 500mg/D5W 110ml IVPB SCH ×4 (02:05→13:57)
[2019-06-25] MEDS: Albuterol ud Inhalation HHN SCH ×6 (03:41→22:46)
[2019-06-25 04:00] VITALS: BP 139/95
--- NOTE | 2019-06-25 07:30 | NUR ---
HAND-OFF: Report given to Chery Ayala RN. Patient in stable condition.
[2019-06-25 08:00] VITALS: BP 148/78
--- NOTE | 2019-06-25 08:05 | Pulmonology Progress Note ---
Assessment/Plan Assessment/Plan IMPRESSION: 1. Respiratory failure, acute on chronic. 2. Pneumonia, likely aspiration. 3. Chronic obstructive pulmonary disease, chronic. 4. Multiple decubitus. 5. Multiple contractures. 6. Severe protein-calorie malnutrition. 7. Recurrent urosepsis. 9. 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 cultures reviewed antibiotics noted oxygen low flow suction as needed neb therapy aspiration precautions maintain meds monitor for change advanced directives off load nutrition dc planning impression, plan, and exam edited and reviewed in detail care discussed with RN Subjective ROS Limited/Unobtainable: Yes Allergies: Coded Allergies: No Known Allergies (Unverified , 02/25/19) Subjective in bed contracted respiratory care reviewed imaging reviewed Objective Last 24 Hour Vital Signs Date Time Temp Pulse Resp B/P (MAP) Pulse Ox O2 Delivery O2 Flow Rate FiO2 06/25/19 06:58 74 18 100 Nasal Cannula 2.0 06/25/19 06:54 96 Room Air 21 06/25/19 06:52 76 20 96 Room Air 06/25/19 04:00 97.2 80 18 139/95 (110) 100 06/25/19 04:00 Nasal Cannula 2.0 06/25/19 03:49 74 18 100 Nasal Cannula 2.0 06/25/19 03:41 69 20 97 Nasal Cannula 2.0 06/25/19 03:23 68 06/25/19 00:00 96.8 77 20 152/75 (100) 99 06/25/19 00:00 Nasal Cannula 2.0 06/24/19 23:37 75 18 98 Nasal Cannula 2.0 06/24/19 23:29 83 20 99 Nasal Cannula 2.0 06/24/19 23:22 76 06/24/19 20:00 97.8 100 24 145/92 (109) 100 06/24/19 20:00 80 18 100 Nasal Cannula 2.0 06/24/19 20:00 Nasal Cannula 2.0 06/24/19 19:52 81 20 100 Nasal Cannula 2.0 06/24/19 19:52 100 Nasal Cannula 2.0 06/24/19 19:42 82 06/24/19 16:00 97.6 101 24 108/71 (83) 100 06/24/19 16:00 Nasal Cannula 2.0 06/24/19 15:44 87 06/24/19 15:24 88 18 100 Nasal Cannula 2.0 28 06/24/19 15:15 76 18 100 Nasal Cannula 2.0 28 06/24/19 12:00 98.0 95 23 134/70 (91) 100 06/24/19 12:00 Nasal Cannula 2.0 06/24/19 11:43 96 06/24/19 11:07 92 18 100 Nasal Cannula 2.0 28 06/24/19 11:00 95 18 98 Nasal Cannula 2.0 28 Intake and Output 06/24/19 06/25/19 19:00 07:00 Intake Total 1470 ml 1405 ml Output Total 800 ml 1600 ml Balance 670 ml -195 ml Free Water 100 ml IV Total 950 ml 985 ml Tube Feeding 420 ml 420 ml Output Urine Total 800 ml 1600 ml # Bowel Movements 2 Objective GENERAL: An ill-appearing male, overall nonresponsive. on oxygen HEENT: Negative. NECK: Supple. The patient remains kyphotic. LUNGS: Coarse breath sounds. Moderate air entry. some rhonchi. CARDIAC: Normal S1 and S2. Regular rate and rhythm without murmurs, rubs, or gallops. ABDOMEN: Soft, nontender, nondistended. G-tube in place. EXTREMITIES: No cyanosis or clubbing. The patient is contracted and rigid. reviewed and examined Laboratory Tests 06/25/19 00:20: Vancomycin Level Trough 6.9 Current Medications Medications (Trade) Dose Ordered Sig/Mckenzie Route PRN Reason Start Time Stop Time Status Last Admin Dose Admin Albuterol Sulfate (Proventil) 2.5 mg Q4HRT HHN 06/23/19 11:00 06/28/19 10:59 06/25/19 06:52 Heparin Sodium (Porcine) (Heparin 5000 units/ml) 5,000 units EVERY 12 HOURS SUBQ 06/22/19 09:00 07/22/19 08:59 06/24/19 21:22 Polymyxin B Sulfate 103740 units/Dextrose 275 ml @ 275 mls/hr EVERY 12 HOURS IV 06/24/19 14:00 07/01/19 13:59 06/24/19 21:20 Sodium Hypochlorite (Dakin's Quarter Strength) 1 applic BEDTIME TOPIC 06/24/19 21:00 07/23/19 08:59 06/24/19 21:21 Sodium Chloride 1,000 ml @ 50 mls/hr Q20H IV 06/22/19 04:15 07/22/19 04:14 06/24/19 16:33 Vancomycin HCl (Vanco rx to dose) 1 ea DAILY PRN MISC Per rx protocol 06/22/19 04:15 07/22/19 04:14 Vancomycin HCl 500 mg/Dextrose 110 ml @ 110 mls/hr Q12H IVPB 06/25/19 02:00 06/30/19 01:59 06/25/19 02:05 Tim Andrade MD Jun 25, 2019 08:05
--- NOTE | 2019-06-25 08:12 | NUR ---
NURSE NOTES: received pt in the bed, awake, nonverbal, vital signs stable, no co pain, no SOB, o2 2L via nasal canula, skin warm and dry to touch, multiple decub, dressing dry and intact, PICC line on RT upper arm, dressing dry and intact, Anderson catheter with yellow urine, tolerate GT feeding well, bed in low position, HOB elevated.
[2019-06-25] MEDS: Polymyxin B Sulfate 250,000 UNITS in D5W 275 ML IV SCH (08:54)
[2019-06-25] MEDS: Heparin 5000 units/ml inj SUBQ SCH ×2 (08:55→20:52)
--- NOTE | 2019-06-25 10:51 | NUR ---
RD ASSESSMENT & RECOMMENDATIONS SEE CARE ACTIVITY FOR COMPLETE ASSESSMENT DAILY ESTIMATED NEEDS: Needs based on multiple wounds, underweight 51kg 30-35 kcals/kg 3613-1189 total kcals 1.5-2.0 g protein/kg 77-102 g total protein 25-30 mL/kg 3566-4543 total fluid mLs NUTRITION DIAGNOSIS: * Increased kcal/pro needs R/T wound healing and underweight status as evidenced by pt admittedw/ multiple full thickness wounds, refer to wound eval, pt @82% [place] Body Weight w/ severe wasting. * Swallowing difficulty R/T dysphagia as evidenced by pt GT dep for all nutritional needs. CURRENT TF:Jevity 1.2 @ 35ml/hr x 24 hrs ENTERAL NUTRITION RECOMMENDATIONS: Jevity 1.2 @ 60ml/hr x 24 hrs + Prosource 1pkt daily to provide 1440ml, 1728kcal, 80g+11g prot, 1162ml free water * REC TO INCREASE goal rate to 60ml/hr x 24 hrs * Add Prosource 1pkt daily to better meet protein needs * HOB over 30 degrees/ water flush per MD ADDITIONAL RECOMMENDATIONS: * Calibrated bedscale wt for accurate CBW * WOUND HEALING: OLY BID via GT + VIT C 250MG BID + ZN SO4 220mg daily x10 days * TF recs as above to better meet est needs * Monitor lytes, replete as needed .
--- NOTE | 2019-06-25 11:03 | Infectious Diseases Prog Note ---
"Assessment/Plan Assessment/Plan antibiotics : vancomycin iv, colistin A 1. enterococcus | coag neg staph sepsis 2. acenitobacter pneumonia 3. leucocytosis resolved 4. dementia P 1. continue iv vancomycin 2. d/c colistin 3. start inhaled colistin 4. will follow up cultures Subjective ROS Limited/Unobtainable: Yes Allergies: Coded Allergies: No Known Allergies (Unverified , 02/25/19) Objective Vital Signs Last 24 Hour Vital Signs Date Time Temp Pulse Resp B/P (MAP) Pulse Ox O2 Delivery O2 Flow Rate FiO2 06/25/19 10:40 73 20 100 Nasal Cannula 2.0 06/25/19 10:36 77 20 99 Nasal Cannula 2.0 06/25/19 08:00 77 06/25/19 08:00 Nasal Cannula 2.0 06/25/19 08:00 97.4 76 18 148/78 (101) 99 06/25/19 06:58 74 18 100 Nasal Cannula 2.0 06/25/19 06:54 96 Room Air 06/25/19 06:52 76 20 96 Room Air 06/25/19 04:00 97.2 80 18 139/95 (110) 100 06/25/19 04:00 Nasal Cannula 2.0 06/25/19 03:49 74 18 100 Nasal Cannula 2.0 06/25/19 03:41 69 20 97 Nasal Cannula 2.0 06/25/19 03:23 68 06/25/19 00:00 96.8 77 20 152/75 (100) 99 06/25/19 00:00 Nasal Cannula 2.0 06/24/19 23:37 75 18 98 Nasal Cannula 2.0 06/24/19 23:29 83 20 99 Nasal Cannula 2.0 06/24/19 23:22 76 06/24/19 20:00 97.8 100 24 145/92 (109) 100 06/24/19 20:00 80 18 100 Nasal Cannula 2.0 06/24/19 20:00 Nasal Cannula 2.0 06/24/19 19:52 81 20 100 Nasal Cannula 2.0 06/24/19 19:52 100 Nasal Cannula 2.0 06/24/19 19:42 82 06/24/19 16:00 97.6 101 24 108/71 (83) 100 06/24/19 16:00 Nasal Cannula 2.0 06/24/19 15:44 87 06/24/19 15:24 88 18 100 Nasal Cannula 2.0 28 06/24/19 15:15 76 18 100 Nasal Cannula 2.0 28 06/24/19 12:00 98.0 95 23 134/70 (91) 100 06/24/19 12:00 Nasal Cannula 2.0 06/24/19 11:43 96 06/24/19 11:07 92 18 100 Nasal Cannula 2.0 28 06/24/19 11:00 95 18 98 Nasal Cannula 2.0 28 Height (Feet): 5 Height (Inches): 6.00 Weight (Pounds): 112 Respiratory/Chest: lungs clear Cardiovascular: normal rate, regular rhythm, no gallop/murmur Abdomen: soft, non tender, other - GT Extremities: no edema Laboratory Tests Test 06/25/19 00:20 Vancomycin Level Trough 6.9 ug/mL (5.0-12.0) Current Medications Medications (Trade) Dose Ordered Sig/Mckenzie Route PRN Reason Start Time Stop Time Status Last Admin Dose Admin Albuterol Sulfate (Proventil) 2.5 mg Q4HRT HHN 06/23/19 11:00 06/28/19 10:59 06/25/19 10:35 Heparin Sodium (Porcine) (Heparin 5000 units/ml) 5,000 units EVERY 12 HOURS SUBQ 06/22/19 09:00 07/22/19 08:59 06/25/19 08:55 Polymyxin B Sulfate 376514 units/Dextrose 275 ml @ 275 mls/hr EVERY 12 HOURS IV 06/24/19 14:00 07/01/19 13:59 06/25/19 08:54 Sodium Hypochlorite (Dakin's Quarter Strength) 1 applic BEDTIME TOPIC 06/24/19 21:00 07/23/19 08:59 06/24/19 21:21 Sodium Chloride 1,000 ml @ 50 mls/hr Q20H IV 06/22/19 04:15 07/22/19 04:14 06/24/19 16:33 Vancomycin HCl (Vanco rx to dose) 1 ea DAILY PRN MISC Per rx protocol 06/22/19 04:15 07/22/19 04:14 Vancomycin HCl 500 mg/Dextrose 110 ml @ 110 mls/hr Q12H IVPB 06/25/19 02:00 06/30/19 01:59 06/25/19 02:05 Manan Gomez MD Jun 25, 2019 11:03"
--- NOTE | 2019-06-25 11:44 | General Progress Note ---
Assessment/Plan Assessment/Plan: Sepsis - BC E. Fecalis!!!. On broad-spectrum IV Abx per ID. Most likely due to infected decubiti, although pneumonia and Urosepsis are also potential sources. To clarify Code Status with Conservator. Left VM . No response.... Needs to change PICC line MARILOU!!! Subjective Allergies: Coded Allergies: No Known Allergies (Unverified , 02/25/19) Subjective Nonverbal. Objective Last 24 Hour Vital Signs Date Time Temp Pulse Resp B/P (MAP) Pulse Ox O2 Delivery O2 Flow Rate FiO2 06/25/19 10:40 73 20 100 Nasal Cannula 2.0 28 06/25/19 10:36 77 20 99 Nasal Cannula 2.0 06/25/19 08:00 77 06/25/19 08:00 Nasal Cannula 2.0 06/25/19 08:00 97.4 76 18 148/78 (101) 99 06/25/19 06:58 74 18 100 Nasal Cannula 2.0 06/25/19 06:54 96 Room Air 06/25/19 06:52 76 20 96 Room Air 21 06/25/19 04:00 97.2 80 18 139/95 (110) 100 06/25/19 04:00 Nasal Cannula 2.0 06/25/19 03:49 74 18 100 Nasal Cannula 2.0 06/25/19 03:41 69 20 97 Nasal Cannula 2.0 06/25/19 03:23 68 06/25/19 00:00 96.8 77 20 152/75 (100) 99 06/25/19 00:00 Nasal Cannula 2.0 06/24/19 23:37 75 18 98 Nasal Cannula 2.0 06/24/19 23:29 83 20 99 Nasal Cannula 2.0 06/24/19 23:22 76 06/24/19 20:00 97.8 100 24 145/92 (109) 100 06/24/19 20:00 80 18 100 Nasal Cannula 2.0 06/24/19 20:00 Nasal Cannula 2.0 06/24/19 19:52 81 20 100 Nasal Cannula 2.0 06/24/19 19:52 100 Nasal Cannula 2.0 06/24/19 19:42 82 06/24/19 16:00 97.6 101 24 108/71 (83) 100 7/29/19 16:00 Nasal Cannula 2.0 06/24/19 15:44 87 06/24/19 15:24 88 18 100 Nasal Cannula 2.0 28 06/24/19 15:15 76 18 100 Nasal Cannula 2.0 06/24/19 12:00 98.0 95 23 134/70 (91) 100 06/24/19 12:00 Nasal Cannula 2.0 06/24/19 11:43 96 Intake and Output 06/24/19 06/25/19 19:00 07:00 Intake Total 1470 ml 1405 ml Output Total 800 ml 1600 ml Balance 670 ml -195 ml Free Water 100 ml IV Total 950 ml 985 ml Tube Feeding 420 ml 420 ml Output Urine Total 800 ml 1600 ml # Bowel Movements 2 Laboratory Tests 06/25/19 00:20: Vancomycin Level Trough 6.9 Height (Feet): 5 Height (Inches): 6.00 Weight (Pounds): 112 Objective [place]. Cv RR Skin - multiple decubitus ulcers: Sacral, hip, heels. (see pictures). CV RR Lungs B [place]. Abd. SNT. BS + E Muscle wasting. No CCE. Neuro alert, nonverbal, nonfocal. Ervin Mario MD Jun 25, 2019 11:44
[2019-06-25 12:00] VITALS: BP 145/77
--- NOTE | 2019-06-25 12:08 | NUR ---
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 97.4 HR 76 RR 18 B/P 148/78 2L NC O2 SAT @ 98% IS: IVF NS @ 50ML/HR COLISTIN INH VANCO IV HEPARIN SUBC STEP DOWN UNIT
--- NOTE | 2019-06-25 12:09 | Surgery Progress Note ---
Surgery Progress Note Subjective Additional Comments No acute events. Exam unchanged. Please see below Objective Last 24 Hour Vital Signs Date Time Temp Pulse Resp B/P (MAP) Pulse Ox O2 Delivery O2 Flow Rate FiO2 06/25/19 10:40 73 20 100 Nasal Cannula 2.0 28 06/25/19 10:36 77 20 99 Nasal Cannula 2.0 28 06/25/19 08:00 77 06/25/19 08:00 Nasal Cannula 2.0 06/25/19 08:00 97.4 76 18 148/78 (101) 99 06/25/19 06:58 74 18 100 Nasal Cannula 2.0 28 06/25/19 06:54 96 Room Air 21 06/25/19 06:52 76 20 96 Room Air 06/25/19 04:00 97.2 80 18 139/95 (110) 100 06/25/19 04:00 Nasal Cannula 2.0 06/25/19 03:49 74 18 100 Nasal Cannula 2.0 06/25/19 03:41 69 20 97 Nasal Cannula 2.0 06/25/19 03:23 68 06/25/19 00:00 96.8 77 20 152/75 (100) 99 06/25/19 00:00 Nasal Cannula 2.0 06/24/19 23:37 75 18 98 Nasal Cannula 2.0 06/24/19 23:29 83 20 99 Nasal Cannula 2.0 06/24/19 23:22 76 06/24/19 20:00 97.8 100 24 145/92 (109) 100 06/24/19 20:00 80 18 100 Nasal Cannula 2.0 06/24/19 20:00 Nasal Cannula 2.0 06/24/19 19:52 81 20 100 Nasal Cannula 2.0 06/24/19 19:52 100 Nasal Cannula 2.0 28 06/24/19 19:42 82 06/24/19 16:00 97.6 101 24 108/71 (83) 100 06/24/19 16:00 Nasal Cannula 2.0 06/24/19 15:44 87 06/24/19 15:24 88 18 100 Nasal Cannula 2.0 28 06/24/19 15:15 76 18 100 Nasal Cannula 2.0 28 I&O Intake and Output 06/24/19 06/25/19 19:00 07:00 Intake Total 1470 ml 1405 ml Output Total 800 ml 1600 ml Balance 670 ml -195 ml Free Water 100 ml IV Total 950 ml 985 ml Tube Feeding 420 ml 420 ml Output Urine Total 800 ml 1600 ml # Bowel Movements 2 Dressing: saturated Wound: other Drains: other Cardiovascular: RSR Respiratory: decreased breath sounds Abdomen: soft, present bowel sounds Extremities: other Laboratory Tests Test 06/25/19 00:20 Vancomycin Level Trough 6.9 ug/mL (5.0-12.0) Plan Problems: (1) Respiratory distress (2) Sepsis Assessment & Plan: leukocytosis - now low abnormal labs improving on IV abx cxr noted trend labs iv fluids in further evaluate the patient for the past few days it is likely that at some point he may need a lower extremity amputation. I sincerely agree with primary care's decision about considerations for change of CODE STATUS. Would exhaust all measures of working with health social work professor to stay and were most necessary to evaluate CODE STATUS prior to considerations of such aggressive intervention. (3) Decubitus ulcer of trochanteric region of left hip Assessment & Plan: Pt presented on admission with contractures, multiple pressure injuries. Full thickness pressure injury noted to upper cleft L earlobe.Base of wound 90% viable and moist with 10% slough at base.(L)1.5cm x (W00.6cm x (D)0.6cm. Non-blanchable erythema noted to cleft of Earlobe. Full thickness pressure injury L ischium .Base of wound has 90%pink granulation, 10% slough. Edges flat and adherent to base of wound.Dry pink epithelial borders. Periwound without erythema,induration .(L)2.5cm x (W)1.5cm. Resolving pressure injury R ischium. Dry pink epithelial base of wound .(L)4cm x (W)3.5cm. Hyperpigmentation from previous wounds noted to sacrum. Full thickness pressure injury with undermining L trochanter. [place] granulation with bone exposure at base of wound. Small amt non-odorous serous exudate noted (L)3.5cm x (W)3.5cm x (D)1.4cm ,undermining clockwise 12-12 by 3.8cm @12o' clock.Periwound without erythema or induration. Full thickness pressure injury idalia R tibia(L)9cm x (W)2.5cm. 100% pink granulation noted to base of wound. Edges flat and adherent to base of wound .Bone is palpable. Small amt non-odorous serous exudate noted. full thickness pressure injury Lateral L foot extending from L heel to distal / lateral L foot . Base of wound has approx 60% beefy red granulation intertwined with areas of mixed slough and necrosis.Edges macerated .Mild odor noted. (L)( 9cm x (W) 20cm.Periwound without erythema but L foot is edematous.Dorsal as[ pect of L foot noted to have dark brown discoloration. Full thickness pressure injury noted to distal/plantar aspect of L foot. Base of wound has 10% biofilm. 50% pink granulation with pink epithelial borders. Mild odor noted .Small amt seropurulent exudate noted. (L)1.4cm x (W)2cm. Full thickness pressure injury noted to plantar L hallux. Base of wound has 20% burgess slough with surrounding pink granulation. (+) maceration along borders. Small amt seropurulent exudate noted. Mild odor noted.(L)4.5cm x (W)2.5cm. Tx.Plan: Cleanse wounds L foot with Dakin's 0.125% daysi. Apply Dakin's moist gauze to wounds. Cover with ABD pads and wrap with Kerlix Twice daily and PRN. Cleanse wound R tibia with Dakin's 0.125% daysi.Apply Dakin's moist Gauze to wound. Apply Moisture Barrier periwound. Cover with Optifoam drsg Twice daily and prn. Cleanse wounds L trochanter,L ischium with Dakin's 0.125% daysi. Apply Dakin's moist 2-2 gauze into wound. Apply Moisture Barrier paste periwound. Cover with Optifoam drsg Twice daaily and prn. Apply Moisture Barrier to R ischium and sacrum. Cover each site with Optifoam drsg. Change every 3 days and prn. Cleanse L earlobe with Saline. Apply Therahoney with rolled Gauze. Cover with Optifoam drsg Daily and prn. APM/KAVON mattress overlay. Soft Pillow behind Knees to off-load heels. Reposition at least every 2hours or as tolerated. Rios Quiñones Jun 25, 2019 12:09
--- NOTE | 2019-06-25 13:00 | NUR ---
NURSE NOTES: vital signs stable, no co pain, repositioned, bed bath given, continue monitoring.
[2019-06-25] MEDS ORDERED: Lidocaine 1% Plain 30 ml INJ PRN (14:15)
[2019-06-25] MEDS ORDERED: Heparin1,000 units/500ml Premix(Conc:2 units/ml) IV PRN (14:15)
[2019-06-25] MEDS ORDERED: Tubing IV Secondary IV ONE (15:00)
[2019-06-25] MEDS ORDERED: 1/2 NS 1000ml IV ONE (15:00)
[2019-06-25 16:00] VITALS: BP 140/78
[2019-06-25] MEDS: Ascorbic Acid 500mg tab GT SCH (17:38)
--- NOTE | 2019-06-25 19:15 | NUR ---
HAND-OFF: Report given to PEYTON GARCIA, pt had 6PVS, aware.
--- NOTE | 2019-06-25 19:16 | NUR ---
NURSE NOTES: Received patient from Chery Ayala RN, patient is asleep, receiving oxygen via Nasal cannula at 2L/min, tolerating well, showing no signs of respiratory distress. Gtube is patent and receiving Gevity 1.2 at 60cc/hr, tolerating well, and no residuals. IV site is Right AC 18g, receiving 1/2 NS @50cc/hr. Bed is locked, palced in lowest position, side rails up x3, bed alarm on. Will continue to monitor.
[2019-06-25 20:00] VITALS: BP 129/86
[2019-06-25] MEDS ORDERED: Dyna-Hex 2% Top Sol 2oz TOPIC SCH (20:00)
[2019-06-25] MEDS: Dyna-Hex 2% Top Sol 2oz TOPIC SCH (20:52)
[2019-06-25] MEDS: Dakin's 0.125% Soln (Quarter Strength) 16oz TOPIC SCH (20:52)
[2019-06-25] MEDS: Colistin for inhalation INH SCH (22:36)
[2019-06-26 01:00] VITALS: BP 139/79
[2019-06-26] MEDS: Vancomycin 500mg/D5W 110ml IVPB SCH ×4 (02:28→14:35)
[2019-06-26] MEDS: Albuterol ud Inhalation HHN SCH ×6 (03:17→23:08)
[2019-06-26 04:00] VITALS: BP 119/98
--- NOTE | 2019-06-26 07:34 | NUR ---
HAND-OFF: Report given to Christopher GARCIA. Patient in stable condition.
[2019-06-26 08:00] VITALS: BP 136/70
--- NOTE | 2019-06-26 08:17 | Pulmonology Progress Note ---
Assessment/Plan Assessment/Plan Pulmonary Progress Note Assessment/Plan IMPRESSION: 1. Respiratory failure, acute on chronic. 2. Pneumonia, likely aspiration. 3. Chronic obstructive pulmonary disease, chronic. 4. Multiple decubitus. 5. Multiple contractures. 6. Severe protein-calorie malnutrition. 7. Recurrent urosepsis. 9. 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 on oxygen HEENT: Negative. NECK: Supple. The patient remains kyphotic. LUNGS: Coarse breath sounds. Moderate air entry. some rhonchi. CARDIAC: Normal S1 and S2. Regular rate and rhythm without murmurs, rubs, or gallops. ABDOMEN: Soft, nontender, nondistended. G-tube in place. EXTREMITIES: No cyanosis or clubbing. The patient is contracted and rigid. reviewed and examined Laboratory Tests noted Current Medications Medications (Trade) Dose Ordered Sig/Mckenzie Route PRN Reason Start Time Stop Time Status Last Admin Dose Admin Albuterol Sulfate (Proventil) 2.5 mg Q4HRT HHN 06/23/19 11:00 06/28/19 10:59 06/25/19 06:52 Heparin Sodium (Porcine) (Heparin 5000 units/ml) 5,000 units EVERY 12 HOURS SUBQ 06/22/19 09:00 07/22/19 08:59 06/24/19 21:22 Polymyxin B Sulfate 609277 units/Dextrose 275 ml @ 275 mls/hr EVERY 12 HOURS IV 06/24/19 14:00 07/01/19 13:59 06/24/19 21:20 Sodium Hypochlorite (Dakin's Quarter Strength) 1 applic BEDTIME TOPIC 06/24/19 21:00 07/23/19 08:59 06/24/19 21:21 Sodium Chloride 1,000 ml @ 50 mls/hr Q20H IV 06/22/19 04:15 07/22/19 04:14 06/24/19 16:33 Vancomycin HCl (Vanco rx to dose) 1 ea DAILY PRN MISC Per rx protocol 06/22/19 04:15 07/22/19 04:14 Vancomycin HCl 500 mg/Dextrose 110 ml @ 110 mls/hr Q12H IVPB 06/25/19 02:00 06/30/19 01:59 06/25/19 02:05 Subjective ROS Limited/Unobtainable: No Allergies: Coded Allergies: No Known Allergies (Unverified , 02/25/19) Objective Last 24 Hour Vital Signs Date Time Temp Pulse Resp B/P (MAP) Pulse Ox O2 Delivery O2 Flow Rate FiO2 06/26/19 07:10 91 21 99 Nasal Cannula 2.0 28 06/26/19 06:59 87 18 97 Nasal Cannula 3.0 32 06/26/19 06:59 97 Nasal Cannula 3.0 32 06/26/19 04:16 89 06/26/19 04:00 97.5 94 20 119/98 (105) 95 06/26/19 04:00 Nasal Cannula 2.0 06/26/19 03:25 95 20 99 Nasal Cannula 2.0 06/26/19 03:18 86 20 96 Nasal Cannula 2.0 06/26/19 01:00 98.4 99 24 139/79 (99) 98 06/26/19 00:00 Nasal Cannula 2.0 06/25/19 23:25 95 06/25/19 22:59 92 20 99 Nasal Cannula 2.0 06/25/19 22:48 95 20 98 Nasal Cannula 2.0 06/25/19 22:46 95 20 99 Nasal Cannula 2.0 06/25/19 22:39 90 20 97 Nasal Cannula 2.0 06/25/19 20:00 98.4 99 18 129/86 (100) 97 06/25/19 20:00 Nasal Cannula 2.0 06/25/19 19:37 98 06/25/19 19:10 99 20 100 Nasal Cannula 2.0 06/25/19 19:01 97 Nasal Cannula 2.0 06/25/19 19:00 92 20 97 Room Air 21 06/25/19 19:00 92 20 97 Nasal Cannula 2.0 06/25/19 16:07 82 06/25/19 16:00 97.6 86 20 140/78 (98) 98 06/25/19 16:00 Nasal Cannula 2.0 06/25/19 15:09 94 20 99 Nasal Cannula 2.0 28 06/25/19 15:03 86 20 99 Nasal Cannula 2.0 28 06/25/19 12:00 97.4 75 18 145/77 (99) 98 06/25/19 12:00 77 06/25/19 12:00 Nasal Cannula 2.0 06/25/19 10:40 73 20 100 Nasal Cannula 2.0 28 06/25/19 10:36 77 20 99 Nasal Cannula 2.0 28 Intake and Output 06/25/19 06/26/19 19:00 07:00 Intake Total 1305 ml 1320 ml Output Total 1500 ml 1100 ml Balance -195 ml 220 ml Free Water 300 ml IV Total 560 ml 600 ml Tube Feeding 445 ml 720 ml Output Urine Total 1500 ml 1100 ml # Bowel Movements 1 1 Current Medications Medications (Trade) Dose Ordered Sig/Mckenzie Route PRN Reason Start Time Stop Time Status Last Admin Dose Admin Albuterol Sulfate (Proventil) 2.5 mg Q4HRT HHN 06/23/19 11:00 06/28/19 10:59 06/26/19 06:59 Ascorbic Acid (Vitamin C) 250 mg BID GT 06/25/19 18:00 07/25/19 17:59 06/25/19 17:38 Chlorhexidine Gluconate (Liz-Hex 2%) 1 applic DAILY@2000 TOPIC 06/25/19 20:00 07/25/19 19:59 06/25/19 20:52 Colistimethate Sodium (Colistin *inhalation use only*) 75 mg Q12HR@10,22 INH 06/25/19 22:00 07/02/19 21:59 06/25/19 22:36 Heparin Sodium (Porcine) (Heparin 5000 units/ml) 5,000 units EVERY 12 HOURS SUBQ 06/22/19 09:00 07/22/19 08:59 06/25/19 20:52 Heparin Sodium/ Sodium Chloride (Heparin 1000 units/500ml Premix) 1,000 unit ONCE PRN IV picc line placement 06/25/19 14:15 06/27/19 14:14 Lidocaine HCl (Xylocaine 1% 30ml) 30 ml ONCE PRN INJ picc line placement 06/25/19 14:15 06/27/19 14:14 Sodium Hypochlorite (Dakin's Quarter Strength) 1 applic BEDTIME TOPIC 06/24/19 21:00 07/23/19 08:59 06/25/19 20:52 Sodium Chloride 1,000 ml @ 50 mls/hr Q20H IV 06/22/19 04:15 07/22/19 04:14 06/25/19 13:08 Vancomycin HCl (Vanco rx to dose) 1 ea DAILY PRN MISC Per rx protocol 06/22/19 04:15 07/22/19 04:14 Vancomycin HCl 500 mg/Dextrose 110 ml @ 110 mls/hr Q12H IVPB 06/25/19 02:00 06/30/19 01:59 06/26/19 02:28 Zinc Sulfate (Zinc Sulfate) 220 mg DAILY GT 06/26/19 09:00 07/26/19 08:59 Christopher Rogers MD Jun 26, 2019 08:17
[2019-06-26] MEDS: Zinc Sulfate 220mg cap GT SCH (09:06)
[2019-06-26] MEDS: Ascorbic Acid 500mg tab GT SCH ×2 (09:06→18:24)
[2019-06-26] MEDS: Heparin 5000 units/ml inj SUBQ SCH ×2 (09:17→20:58)
[2019-06-26] MEDS: Colistin for inhalation INH SCH ×2 (09:31→23:07)
--- NOTE | 2019-06-26 10:05 | NUR ---
NURSE NOTES: deep suctioned at the bedside by RT, thick white clear secretions suctioned from deep in the throat, patient completed colistin breathing treatment and remain on nasal cannula,
--- NOTE | 2019-06-26 10:20 | Infectious Diseases Prog Note ---
"Assessment/Plan Assessment/Plan antibiotics : vancomycin iv, colistin A 1. enterococcus | coag neg staph sepsis 2. acenitobacter pneumonia 3. leucocytosis resolved 4. dementia P 1. continue iv vancomycin 2. continue inhaled colistin 4 more days 3. blood culture 4. 2 d echo 5. will follow up cultures Subjective ROS Limited/Unobtainable: Yes Allergies: Coded Allergies: No Known Allergies (Unverified , 02/25/19) Objective Vital Signs Last 24 Hour Vital Signs Date Time Temp Pulse Resp B/P (MAP) Pulse Ox O2 Delivery O2 Flow Rate FiO2 06/26/19 09:41 94 22 98 Nasal Cannula 2.0 28 06/26/19 09:31 88 21 93 Nasal Cannula 2.0 28 06/26/19 08:00 97.3 93 26 136/70 (92) 97 06/26/19 07:10 91 21 99 Nasal Cannula 2.0 28 06/26/19 06:59 87 18 97 Nasal Cannula 3.0 32 06/26/19 06:59 97 Nasal Cannula 3.0 32 06/26/19 04:16 89 06/26/19 04:00 97.5 94 20 119/98 (105) 95 06/26/19 04:00 Nasal Cannula 2.0 06/26/19 03:25 95 20 99 Nasal Cannula 2.0 06/26/19 03:18 86 20 96 Nasal Cannula 2.0 06/26/19 01:00 98.4 99 24 139/79 (99) 98 06/26/19 00:00 Nasal Cannula 2.0 06/25/19 23:25 95 06/25/19 22:59 92 20 99 Nasal Cannula 2.0 06/25/19 22:48 95 20 98 Nasal Cannula 2.0 06/25/19 22:46 95 20 99 Nasal Cannula 2.0 06/25/19 22:39 90 20 97 Nasal Cannula 2.0 06/25/19 20:00 98.4 99 18 129/86 (100) 97 06/25/19 20:00 Nasal Cannula 2.0 06/25/19 19:37 98 06/25/19 19:10 99 20 100 Nasal Cannula 2.0 06/25/19 19:01 97 Nasal Cannula 2.0 06/25/19 19:00 92 20 97 Room Air 21 06/25/19 19:00 92 20 97 Nasal Cannula 2.0 28 06/25/19 16:07 82 06/25/19 16:00 97.6 86 20 140/78 (98) 98 06/25/19 16:00 Nasal Cannula 2.0 06/25/19 15:09 94 20 99 Nasal Cannula 2.0 28 06/25/19 15:03 86 20 99 Nasal Cannula 2.0 28 06/25/19 12:00 97.4 75 18 145/77 (99) 98 06/25/19 12:00 77 06/25/19 12:00 Nasal Cannula 2.0 06/25/19 10:40 73 20 100 Nasal Cannula 2.0 28 06/25/19 10:36 77 20 99 Nasal Cannula 2.0 28 Height (Feet): 5 Height (Inches): 6.00 Weight (Pounds): 124 Respiratory/Chest: lungs clear Cardiovascular: normal rate, regular rhythm, no gallop/murmur Abdomen: soft, non tender, other - GT Extremities: no edema Current Medications Medications (Trade) Dose Ordered Sig/Mckenzie Route PRN Reason Start Time Stop Time Status Last Admin Dose Admin Albuterol Sulfate (Proventil) 2.5 mg Q4HRT HHN 06/23/19 11:00 06/28/19 10:59 06/26/19 06:59 Ascorbic Acid (Vitamin C) 250 mg BID GT 06/25/19 18:00 07/25/19 17:59 06/26/19 09:06 Chlorhexidine Gluconate (Liz-Hex 2%) 1 applic DAILY@1999 TOPIC 06/25/19 20:00 07/25/19 19:59 06/25/19 20:52 Colistimethate Sodium (Colistin *inhalation use only*) 75 mg Q12HR@10,22 INH 06/25/19 22:00 07/02/19 21:59 06/26/19 09:31 Heparin Sodium (Porcine) (Heparin 5000 units/ml) 5,000 units EVERY 12 HOURS SUBQ 06/22/19 09:00 07/22/19 08:59 06/26/19 09:17 Heparin Sodium/ Sodium Chloride (Heparin 1000 units/500ml Premix) 1,000 unit ONCE PRN IV picc line placement 06/25/19 14:15 06/27/19 14:14 Lidocaine HCl (Xylocaine 1% 30ml) 30 ml ONCE PRN INJ picc line placement 06/25/19 14:15 06/27/19 14:14 Sodium Hypochlorite (Dakin's Quarter Strength) 1 applic BEDTIME TOPIC 06/24/19 21:00 07/23/19 08:59 06/25/19 20:52 Sodium Chloride 1,000 ml @ 50 mls/hr Q20H IV 06/22/19 04:15 07/22/19 04:14 06/26/19 09:06 Vancomycin HCl (Vanco rx to dose) 1 ea DAILY PRN MISC Per rx protocol 06/22/19 04:15 07/22/19 04:14 Vancomycin HCl 500 mg/Dextrose 110 ml @ 110 mls/hr Q12H IVPB 06/25/19 02:00 06/30/19 01:59 06/26/19 02:28 Zinc Sulfate (Zinc Sulfate) 220 mg DAILY GT 06/26/19 09:00 07/26/19 08:59 06/26/19 09:06 Manan Gomez MD Jun 26, 2019 10:20"
--- NOTE | 2019-06-26 10:22 | NUR ---
NURSE NOTES: Dr. Gomez notified of order to have another picc line placed, she will review chart and placed orders to have a blood culture blood draw and wait 24hrs to see if their is no growth, then placement of another picc line can be placed on 06/27/19.
--- NOTE | 2019-06-26 10:35 | NUR ---
NURSE NOTES: Blood cultures collected by shed workers supervisor and taken to laboratory for analysis,
--- NOTE | 2019-06-26 10:57 | General Progress Note ---
Assessment/Plan Assessment/Plan: Sepsis - BC E. Fecalis!!!. On broad-spectrum IV Abx per ID. Most likely due to infected decubiti, although pneumonia and Urosepsis are also potential sources. To clarify Code Status with Conservator. Left VM . No response.... Needs to change PICC line MARILOU!!! Subjective Allergies: Coded Allergies: No Known Allergies (Unverified , 02/25/19) Subjective Nonverbal. Objective Last 24 Hour Vital Signs Date Time Temp Pulse Resp B/P (MAP) Pulse Ox O2 Delivery O2 Flow Rate FiO2 06/26/19 09:41 94 22 98 Nasal Cannula 2.0 28 06/26/19 09:31 88 21 93 Nasal Cannula 2.0 28 06/26/19 08:00 Nasal Cannula 2.0 06/26/19 08:00 97.3 93 26 136/70 (92) 97 06/26/19 07:44 89 06/26/19 07:10 91 21 99 Nasal Cannula 2.0 28 06/26/19 06:59 87 18 97 Nasal Cannula 3.0 32 06/26/19 06:59 97 Nasal Cannula 3.0 32 06/26/19 04:16 89 06/26/19 04:00 97.5 94 20 119/98 (105) 95 06/26/19 04:00 Nasal Cannula 2.0 06/26/19 03:25 95 20 99 Nasal Cannula 2.0 28 06/26/19 03:18 86 20 96 Nasal Cannula 2.0 28 06/26/19 01:00 98.4 99 24 139/79 (99) 98 06/26/19 00:00 Nasal Cannula 2.0 06/25/19 23:25 95 06/25/19 22:59 92 20 99 Nasal Cannula 2.0 28 06/25/19 22:48 95 20 98 Nasal Cannula 2.0 28 06/25/19 22:46 95 20 99 Nasal Cannula 2.0 28 06/25/19 22:39 90 20 97 Nasal Cannula 2.0 28 06/25/19 20:00 98.4 99 18 129/86 (100) 97 06/25/19 20:00 Nasal Cannula 2.0 06/25/19 19:37 98 06/25/19 19:10 99 20 100 Nasal Cannula 2.0 28 06/25/19 19:01 97 Nasal Cannula 2.0 28 06/25/19 19:00 92 20 97 Room Air 21 06/25/19 19:00 92 20 97 Nasal Cannula 2.0 28 06/25/19 16:07 82 06/25/19 16:00 97.6 86 20 140/78 (98) 98 06/25/19 16:00 Nasal Cannula 2.0 06/25/19 15:09 94 20 99 Nasal Cannula 2.0 28 06/25/19 15:03 86 20 99 Nasal Cannula 2.0 28 06/25/19 12:00 97.4 75 18 145/77 (99) 98 06/25/19 12:00 77 06/25/19 12:00 Nasal Cannula 2.0 Intake and Output 06/25/19 06/26/19 19:00 07:00 Intake Total 1305 ml 1320 ml Output Total 1500 ml 1100 ml Balance -195 ml 220 ml Free Water 300 ml IV Total 560 ml 600 ml Tube Feeding 445 ml 720 ml Output Urine Total 1500 ml 1100 ml # Bowel Movements 1 1 Height (Feet): 5 Height (Inches): 6.00 Weight (Pounds): 124 Objective [place]. Cv RR Skin - multiple decubitus ulcers: Sacral, hip, heels. (see pictures). CV RR Lungs B Ronchi. Abd. SNT. BS + E Muscle wasting. No CCE. Neuro alert, nonverbal, nonfocal. Ervin Mario MD Jun 26, 2019 10:57
--- NOTE | 2019-06-26 11:00 | General Progress Note ---
Assessment/Plan Assessment/Plan: Sepsis - BC E. Fecalis!!!. On broad-spectrum IV Abx per ID. Most likely due to infected decubiti, although pneumonia and Urosepsis are also potential sources. To clarify Code Status with Conservator. Left VM . No response.... Needs to change PICC line Urgently as a life threatening condition!!! Subjective Allergies: Coded Allergies: No Known Allergies (Unverified , 02/25/19) Subjective Nonverbal. Objective Last 24 Hour Vital Signs Date Time Temp Pulse Resp B/P (MAP) Pulse Ox O2 Delivery O2 Flow Rate FiO2 06/26/19 09:41 94 22 98 Nasal Cannula 2.0 28 06/26/19 09:31 88 21 93 Nasal Cannula 2.0 28 06/26/19 08:00 Nasal Cannula 2.0 06/26/19 08:00 97.3 93 26 136/70 (92) 97 06/26/19 07:44 89 06/26/19 07:10 91 21 99 Nasal Cannula 2.0 28 06/26/19 06:59 87 18 97 Nasal Cannula 3.0 32 06/26/19 06:59 97 Nasal Cannula 3.0 32 06/26/19 04:16 89 06/26/19 04:00 97.5 94 20 119/98 (105) 95 06/26/19 04:00 Nasal Cannula 2.0 06/26/19 03:25 95 20 99 Nasal Cannula 2.0 06/26/19 03:18 86 20 96 Nasal Cannula 2.0 28 06/26/19 01:00 98.4 99 24 139/79 (99) 98 06/26/19 00:00 Nasal Cannula 2.0 06/25/19 23:25 95 06/25/19 22:59 92 20 99 Nasal Cannula 2.0 28 06/25/19 22:48 95 20 98 Nasal Cannula 2.0 28 06/25/19 22:46 95 20 99 Nasal Cannula 2.0 28 06/25/19 22:39 90 20 97 Nasal Cannula 2.0 28 06/25/19 20:00 98.4 99 18 129/86 (100) 97 06/25/19 20:00 Nasal Cannula 2.0 06/25/19 19:37 98 06/25/19 19:10 99 20 100 Nasal Cannula 2.0 28 06/25/19 19:01 97 Nasal Cannula 2.0 28 06/25/19 19:00 92 20 97 Room Air 21 06/25/19 19:00 92 20 97 Nasal Cannula 2.0 06/25/19 16:07 82 06/25/19 16:00 97.6 86 20 140/78 (98) 98 06/25/19 16:00 Nasal Cannula 2.0 06/25/19 15:09 94 20 99 Nasal Cannula 2.0 06/25/19 15:03 86 20 99 Nasal Cannula 2.0 28 06/25/19 12:00 97.4 75 18 145/77 (99) 98 06/25/19 12:00 77 06/25/19 12:00 Nasal Cannula 2.0 Intake and Output 06/25/19 06/26/19 19:00 07:00 Intake Total 1305 ml 1320 ml Output Total 1500 ml 1100 ml Balance -195 ml 220 ml Free Water 300 ml IV Total 560 ml 600 ml Tube Feeding 445 ml 720 ml Output Urine Total 1500 ml 1100 ml # Bowel Movements 1 1 Height (Feet): 5 Height (Inches): 6.00 Weight (Pounds): 124 Objective [place]. Cv RR Skin - multiple decubitus ulcers: Sacral, hip, heels. (see pictures). CV RR Lungs B Ronchi. Abd. SNT. BS + E Muscle wasting. No CCE. Neuro alert, nonverbal, nonfocal. Ervin Mario MD Jun 26, 2019 11:00
--- NOTE | 2019-06-26 11:09 | NUR ---
NURSE NOTES: Dr. Mario updated on patient status and recommendation placed by dr. tarango regarding placement of picc line, reviewed chart and ordered to have cbc, bmp and magnesium laboratory draws for 06/27/19 at 0400. mo further orders given at this time.
--- NOTE | 2019-06-26 11:31 | CDS Physician Query ---
"Clarification is required for compliance, coding accuracy, and to reflect severity of illness for this patient Dear Dr. Ervin Mario Date: 06/26/2019 [employer] Officer/CDS Name: Thu Benitez Clinical documentation states: 06/24 ID note: Bacteremia with gram-positive cocci , ? line infection 06/26 ID note: enterococcus | coag neg staph sepsis Blood culture on admission: Coag negative staph, E. faecalis Please respond to the following question: Is there a diagnosis specific to these symptoms or values? If so please state below. PHYSICIAN RESPONSE: [x] Sepsis due to line infection [] Bloodstream associated picc line infection [] Local line infection [] Other : [] Clinically Undetermined Present on Admission: [x] Yes [] No [] Clinically Undetermined Physician signature Date Please also document in your Progress Notes and/or Discharge Summary and indicate if the condition was present on admission. HUONG"
[2019-06-26 12:00] VITALS: BP 132/71
--- NOTE | 2019-06-26 13:00 | NUR ---
NURSE NOTES: Patient had a large BM with soft consistency and light brown color noted, sacral and lower buttocks changed since bm soiled dressings, wounds are noted to be pink white and clean, Optifoam dressing applied and repositioned patient.
--- NOTE | 2019-06-26 13:12 | NUR ---
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 97.3 HR 91 RR 24 B/P 132/71 3L NC IS: VANCO IV COLISTIN INH IVF NS @ 50ML/HR ALB HHN HEPARIN SUBC 2D ECHO STEP DOWN STATUS
--- NOTE | 2019-06-26 13:30 | NUR ---
NURSE NOTES: Left AC 22G peripheral IV placed with blood return present and no leaking at insertion site, right AC IV was removed due to infiltrations at the right arm.
--- NOTE | 2019-06-26 14:24 | Surgery Progress Note ---
Surgery Progress Note Subjective Additional Comments labs noted exam unchanged micro with e. facalis bacteremia needs line change Objective Last 24 Hour Vital Signs Date Time Temp Pulse Resp B/P (MAP) Pulse Ox O2 Delivery O2 Flow Rate FiO2 06/26/19 12:00 Nasal Cannula 2.0 06/26/19 12:00 97.3 91 24 132/71 (91) 100 06/26/19 12:00 92 06/26/19 11:13 93 20 99 Nasal Cannula 2.0 28 06/26/19 11:03 87 21 97 Nasal Cannula 2.0 28 06/26/19 09:41 94 22 98 Nasal Cannula 2.0 28 06/26/19 09:31 88 21 93 Nasal Cannula 2.0 28 06/26/19 08:00 Nasal Cannula 2.0 06/26/19 08:00 97.3 93 26 136/70 (92) 97 06/26/19 07:44 89 06/26/19 07:10 91 21 99 Nasal Cannula 2.0 28 06/26/19 06:59 87 18 97 Nasal Cannula 3.0 32 06/26/19 06:59 97 Nasal Cannula 3.0 32 06/26/19 04:16 89 06/26/19 04:00 97.5 94 20 119/98 (105) 95 06/26/19 04:00 Nasal Cannula 2.0 06/26/19 03:25 95 20 99 Nasal Cannula 2.0 06/26/19 03:18 86 20 96 Nasal Cannula 2.0 06/26/19 01:00 98.4 99 24 139/79 (99) 98 06/26/19 00:00 Nasal Cannula 2.0 06/25/19 23:25 95 06/25/19 22:59 92 20 99 Nasal Cannula 2.0 28 06/25/19 22:48 95 20 98 Nasal Cannula 2.0 28 06/25/19 22:46 95 20 99 Nasal Cannula 2.0 28 06/25/19 22:39 90 20 97 Nasal Cannula 2.0 06/25/19 20:00 98.4 99 18 129/86 (100) 97 06/25/19 20:00 Nasal Cannula 2.0 06/25/19 19:37 98 06/25/19 19:10 99 20 100 Nasal Cannula 2.0 28 06/25/19 19:01 97 Nasal Cannula 2.0 28 06/25/19 19:00 92 20 97 Room Air 21 06/25/19 19:00 92 20 97 Nasal Cannula 2.0 28 06/25/19 16:07 82 06/25/19 16:00 97.6 86 20 140/78 (98) 98 06/25/19 16:00 Nasal Cannula 2.0 06/25/19 15:09 94 20 99 Nasal Cannula 2.0 28 06/25/19 15:03 86 20 99 Nasal Cannula 2.0 28 I&O Intake and Output 06/25/19 06/26/19 19:00 07:00 Intake Total 1305 ml 1320 ml Output Total 1500 ml 1100 ml Balance -195 ml 220 ml Free Water 300 ml IV Total 560 ml 600 ml Tube Feeding 445 ml 720 ml Output Urine Total 1500 ml 1100 ml # Bowel Movements 1 1 Dressing: saturated Wound: other Drains: other Cardiovascular: RSR Respiratory: decreased breath sounds Abdomen: soft, present bowel sounds, other, non-distended Extremities: other Laboratory Tests Test 06/26/19 12:45 Vancomycin Level Trough 11.7 ug/mL (5.0-12.0) Plan Problems: (1) Respiratory distress (2) Sepsis Assessment & Plan: leukocytosis - now low abnormal labs on IV abx cxr noted trend labs micro with bacteremia e.f iv fluids in further evaluate the patient for the past few days it is likely that at some point he may need a lower extremity amputation. I sincerely agree with primary care's decision about considerations for change of CODE STATUS. Would exhaust all measures of working with social media marketing manager to stay and were most necessary to evaluate CODE STATUS prior to considerations of such aggressive intervention. (3) Decubitus ulcer of trochanteric region of left hip Assessment & Plan: Pt presented on admission with contractures,multiple pressure injuries. Full thickness pressure injury noted to L ear. Base of wound is pink-moist with macerated borders. Small amt. non-odorous exudate noted.(L) 1cm x (W)0.5cm x0.2cm. Full thickness sacral pressure injury noted. Base of wound 75% pink granulation ,25% slough .edges adherent to base of wound. Brown discoloration without fluctuance /induration noted periwound.(L)4cm x (W)6cm. Full thickness pressure injury with undermining L trochanter. Base of wound moist-pink , bone is palpable. Periwound is dark without erythema or induration. (L)5.5cm x (W)3cm x (D)0.8cm,undermining clockwise 12-12 by 4.1cm @11o'clock. Full thickness pressure injury L ischium .Base of wound 40% pink granulation ,60 % slough ,erythematous borders. Periwound dark and indurated. (L)2cm x (W)2cm. Scrotal area area red. Full thickness pressure injury base of scrotum. Base of wound has 75% slough ,25% moist and viable. Full thickness pressure injury base of scrotum. Base of wound has 75% slough ,25 % moist and viable. Full thickness wound idalia R tibia. [place] granulation at base of wound. Edges adherent. No odor or exudate noted. Periwound without erythema or elevation in skin temp.(L)4.5cm x (W)1.5cm. DTPI noted to lateral R heel. Base of wound purple and fluctuant with surrounding maroon borders.(L)2.3xcm x (W)3cm. Full thickness wound lateral/plantar L foot(L)7.4cm x (W)18.5cm x (D)1.4cm. [place] granulation at base of wound with scattered slough.Bone is palpable. Mild odor noted .Small amt seropurulent exudate noted. Edges macerated. Periwound is fluctuant. L st metatarsal flaccid. Full thickness ulcer noted to plantar L foot. Base of wound moist -viable with pink epithelial borders. Periwound is fluctuant. Small amt serous exudate noted. Full thickness wound medial L foot. 75% slough at base of wound,25% viable. Macerated borders. Mild odor noted. (L)3cm x (W)3cm. Stable dry eschar L hallux (L)0.6cm x (W)1cm. L 2nd -5th metatarsal are dusky in colour. Tx.Plan: Cleanse all wounds Buttocks with Dakin's 0.125% daysi. Apply Dakin's moist gauze to wounds. Cover with Optifoam drsgs. Cleanse wounds L foot with Dakin's 0.125% daysi. Apply Dakin's moist gauze to wounds. Cover with ABD pads and wrap with Kerlix daily and prn. Cleanse wounds R tibia, and R foot with Dakin's 0.125% daysi. Apply Dakin's moist gauze cover with Abd pads and wrap with Kerlix daily and prn. Apply Moisture Barrier Paste to wound on scrotum. Cover with Optifoam drsg. Daily and prn. APM/KAVON Mattress overlay. Reposition at least every 2hours or as tolerated. Place pillow between knees. Off-load heels with pillow. Rios Quiñones Jun 26, 2019 14:24
[2019-06-26 16:00] VITALS: BP 141/77
--- NOTE | 2019-06-26 16:00 | NUR ---
NURSE NOTES: Deep suctioned preformed by RT after breathing treatment, clear thick secretions suctioned from back of throat, patient remains on 2L.min nasal cannula with no distress noted,
--- NOTE | 2019-06-26 19:20 | NUR ---
HAND-OFF: Report given to JOSE Arango. awaiting for blood cultures for picc line placement, remains tolerating tube feeding at 60ml/hr with no residual noted, remains on nasal cannula at 2L/min with saturations at 98-99%. aguilera remains patent and draining straw colored urine, Left ac 22G remains patent and infusing 1/2NS at 50ml/hr. .
--- NOTE | 2019-06-26 19:23 | NUR ---
NURSE NOTES: Received patient from Christopher GARCIA, patient is awake and can trace with eyes, receiving oxygen via Nasal cannula at 2L/min, tolerating well, showing no signs of respiratory distress. Gtube is patent and receiving Jevity 1.2 at 60cc/hr, tolerating well, and no residuals. IV site is Right AC 18g, receiving 1/2 NS @50cc/hr. Bed is locked, placed in lowest position, side rails up x3, bed alarm on. Will continue to monitor. Addendum: 06/26/19 at 1932 by Nba Patel RN Right AC 18g is out, it was replaced with Left AC 22g, patent and asymptomatic receiving 1/2 NS @50cc/hr.
[2019-06-26 20:00] VITALS: BP 124/65
[2019-06-26] MEDS: Dyna-Hex 2% Top Sol 2oz TOPIC SCH (20:00)
[2019-06-26] MEDS: Dakin's 0.125% Soln (Quarter Strength) 16oz TOPIC SCH (20:56)
[2019-06-27] VITALS: BP 129/74
[2019-06-27] MEDS: Vancomycin 500mg/D5W 110ml IVPB SCH ×2 (02:17)
[2019-06-27] MEDS: Albuterol ud Inhalation HHN SCH ×6 (02:23→23:15)
[2019-06-27 04:00] VITALS: BP 126/71
[2019-06-27 05:37] LABS: BASOPHILS % (AUTO) 0.7 % (0.0-2.0); EOSINOPHILS % (AUTO) 2.2 % (0.0-3.0); HEMATOCRIT 28.9 % (42.0-52.0); HEMOGLOBIN 8.7 G/DL (14.2-18.0); LYMPHOCYTES % (AUTO) 21.7 % (20.0-45.0); MEAN CORPUSCULAR VOLUME 78 FL (80-99); MONOCYTES % (AUTO) 9.9 % (1.0-10.0); NEUTROPHILS % (AUTO) 65.5 % (45.0-75.0); PLATELET COUNT 327 K/UL (150-450); RED BLOOD COUNT 3.72 M/UL (4.70-6.10); RED CELL DISTRIBUTION WIDTH 22.7 % (11.6-14.8)
[2019-06-27 06:03] LABS: ANION GAP 4 mmol/L (5-15); BLOOD UREA NITROGEN 11 mg/dL (7-18); CALCIUM 8.4 MG/DL (8.5-10.1); CARBON DIOXIDE 27 MMOL/L (21-32); CHLORIDE 102 MMOL/L (98-107); CREATININE 0.4 MG/DL (0.55-1.30); POTASSIUM 3.9 MMOL/L (3.5-5.1); SODIUM 133 MMOL/L (136-145)
--- NOTE | 2019-06-27 07:20 | NUR ---
NURSE NOTES: Report received from JOSE Arango. Patient opens eyes to name, contracted. Multiple wound sites dressings intact. IN 2L NC. No SOB observed. Bed on lowest position, side rails upx3, brakes engaged. Call light within easy reach.
--- NOTE | 2019-06-27 07:42 | NUR ---
HAND-OFF: Report given to Jhon GARCIA. Patient in stable condition.
[2019-06-27 08:00] VITALS: BP 138/79
--- NOTE | 2019-06-27 08:34 | Pulmonology Progress Note ---
Assessment/Plan Assessment/Plan IMPRESSION: 1. Respiratory failure, acute on chronic. 2. Pneumonia, likely aspiration. 3. Chronic obstructive pulmonary disease, chronic. 4. Multiple decubitus. 5. Multiple contractures. 6. Severe protein-calorie malnutrition. 7. Recurrent urosepsis. 9. 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 cultures reviewed antibiotics noted oxygen low flow suction as needed neb therapy aspiration precautions; elevate head monitor secretions maintain meds monitor for change advanced directives off load nutrition dc planning impression, plan, and exam edited and reviewed in detail care discussed with RN Subjective ROS Limited/Unobtainable: Yes Allergies: Coded Allergies: No Known Allergies (Unverified , 02/25/19) Subjective in bed contracted respiratory care discussed RT care noted imaging reviewed Objective Last 24 Hour Vital Signs Date Time Temp Pulse Resp B/P (MAP) Pulse Ox O2 Delivery O2 Flow Rate FiO2 06/27/19 08:00 Nasal Cannula 2.0 Nasal Cannula 2.0 06/27/19 08:00 97.7 92 19 138/79 (98) 100 06/27/19 07:28 95 21 100 Nasal Cannula 2.0 28 06/27/19 07:19 99 Nasal Cannula 2.0 28 06/27/19 07:19 89 22 99 Nasal Cannula 2.0 28 06/27/19 04:00 Nasal Cannula 2.0 Nasal Cannula 2.0 06/27/19 04:00 97.8 80 20 126/71 (89) 100 06/27/19 03:25 102 06/27/19 02:33 96 20 100 Nasal Cannula 2.0 28 06/27/19 02:23 97 22 98 Nasal Cannula 2.0 28 06/27/19 00:00 97.7 102 24 129/74 (92) 97 06/27/19 00:00 Nasal Cannula 2.0 Nasal Cannula 2.0 06/26/19 23:27 94 06/26/19 23:16 91 20 100 Nasal Cannula 2.0 28 06/26/19 23:05 92 20 100 Nasal Cannula 2.0 28 06/26/19 23:05 93 22 100 Nasal Cannula 2.0 28 06/26/19 22:50 94 22 98 Nasal Cannula 2.0 28 06/26/19 20:00 97.9 89 24 124/65 (84) 100 06/26/19 20:00 Nasal Cannula 2.0 06/26/19 19:53 93 20 100 Nasal Cannula 2.0 28 06/26/19 19:45 98 Nasal Cannula 3.0 32 06/26/19 19:44 88 22 100 Nasal Cannula 2.0 28 06/26/19 19:01 94 06/26/19 16:00 Nasal Cannula 2.0 06/26/19 16:00 98 06/26/19 16:00 97.5 100 23 141/77 (98) 100 06/26/19 14:53 96 21 99 Nasal Cannula 2.0 28 06/26/19 14:42 89 18 97 Nasal Cannula 2.0 28 06/26/19 12:00 Nasal Cannula 2.0 06/26/19 12:00 97.3 91 24 132/71 (91) 100 06/26/19 12:00 92 06/26/19 11:13 93 20 99 Nasal Cannula 2.0 28 06/26/19 11:03 87 21 97 Nasal Cannula 2.0 28 06/26/19 09:41 94 22 98 Nasal Cannula 2.0 28 06/26/19 09:31 88 21 93 Nasal Cannula 2.0 28 Intake and Output 06/26/19 06/27/19 19:00 07:00 Intake Total 1465 ml 720 ml Output Total 1475 ml Balance -10 ml 720 ml Free Water 105 ml IV Total 660 ml Tube Feeding 660 ml 720 ml Other 40 ml Output Urine Total 1475 ml # Bowel Movements 2 1 Objective GENERAL: An ill-appearing male, overall nonresponsive. on oxygen HEENT: Negative. NECK: Supple. The patient remains kyphotic. LUNGS: Coarse breath sounds. Moderate air entry. some rhonchi. CARDIAC: Normal S1 and S2. Regular rate and rhythm without murmurs, rubs, or gallops. ABDOMEN: Soft, nontender, nondistended. G-tube in place. EXTREMITIES: No cyanosis or clubbing. The patient is contracted and rigid. reviewed and examined Laboratory Tests 06/26/19 12:45: Vancomycin Level Trough 11.7 06/27/19 03:30: White Blood Count 5.0, Red Blood Count 3.72L, Hemoglobin 8.7L, Hematocrit 28.9L , Mean Corpuscular Volume 78L, Mean Corpuscular Hemoglobin 23.3L, Mean Corpuscular Hemoglobin Concent 30.1L, Red Cell Distribution Width 22.7H, Platelet Count 327, Mean Platelet Volume 5.7L, Neutrophils (%) (Auto) 65.5, Lymphocytes (%) (Auto) 21.7, Monocytes (%) (Auto) 9.9, Eosinophils (%) (Auto) 2.2, Basophils (%) (Auto) 0.7, Sodium Level 133L, Potassium Level 3.9, Chloride Level 102, Carbon Dioxide Level 27, Anion Gap 4L, Blood Urea Nitrogen 11, Creatinine 0.4L, Estimat Glomerular Filtration Rate , Glucose Level 142H, Calcium Level 8.4L, Magnesium Level 1.6L Current Medications Medications (Trade) Dose Ordered Sig/Mckenzie Route PRN Reason Start Time Stop Time Status Last Admin Dose Admin Albuterol Sulfate (Proventil) 2.5 mg Q4HRT HHN 06/23/19 11:00 06/28/19 10:59 06/27/19 07:19 Ascorbic Acid (Vitamin C) 250 mg BID GT 06/25/19 18:00 07/25/19 17:59 06/26/19 18:24 Chlorhexidine Gluconate (Liz-Hex 2%) 1 applic DAILY@1999 TOPIC 06/25/19 20:00 07/25/19 19:59 06/25/19 20:52 Colistimethate Sodium (Colistin *inhalation use only*) 75 mg Q12HR@10,22 INH 06/25/19 22:00 07/02/19 21:59 06/26/19 23:07 Heparin Sodium (Porcine) (Heparin 5000 units/ml) 5,000 units EVERY 12 HOURS SUBQ 06/22/19 09:00 07/22/19 08:59 06/26/19 20:58 Heparin Sodium/ Sodium Chloride (Heparin 1000 units/500ml Premix) 1,000 unit ONCE PRN IV picc line placement 06/25/19 14:15 06/27/19 14:14 Lidocaine HCl (Xylocaine 1% 30ml) 30 ml ONCE PRN INJ picc line placement 06/25/19 14:15 06/27/19 14:14 Sodium Hypochlorite (Dakin's Quarter Strength) 1 applic BEDTIME TOPIC 06/24/19 21:00 07/23/19 08:59 06/26/19 20:56 Sodium Hypochlorite (Dakin's Quarter Strength) 1 applic DAILY TOPIC 06/27/19 09:00 07/27/19 08:59 Sodium Chloride 1,000 ml @ 50 mls/hr Q20H IV 06/22/19 04:15 07/22/19 04:14 06/27/19 04:12 Vancomycin HCl (Vanco rx to dose) 1 ea DAILY PRN MISC Per rx protocol 06/22/19 04:15 07/22/19 04:14 Vancomycin HCl 500 mg/Dextrose 110 ml @ 110 mls/hr Q12H IVPB 06/25/19 02:00 06/30/19 01:59 06/27/19 02:17 Zinc Sulfate (Zinc Sulfate) 220 mg DAILY GT 06/26/19 09:00 07/26/19 08:59 06/26/19 09:06 Tim Andrade MD Jun 27, 2019 08:34
[2019-06-27] MEDS: Ascorbic Acid 500mg tab GT SCH ×2 (08:46→17:19)
[2019-06-27] MEDS: Zinc Sulfate 220mg cap GT SCH (08:46)
[2019-06-27] MEDS: Heparin 5000 units/ml inj SUBQ SCH ×2 (08:49→20:23)
[2019-06-27] MEDS: Dakin's 0.125% Soln (Quarter Strength) 16oz TOPIC SCH ×2 (09:33→20:20)
[2019-06-27] MEDS: Colistin for inhalation INH SCH ×2 (09:34→21:14)
--- NOTE | 2019-06-27 10:48 | Surgery Progress Note ---
Surgery Progress Note Subjective Additional Comments leukocytosis resolved h/h stable electrolytes noted exam unchanged. Objective Last 24 Hour Vital Signs Date Time Temp Pulse Resp B/P (MAP) Pulse Ox O2 Delivery O2 Flow Rate FiO2 06/27/19 10:43 94 17 99 Nasal Cannula 2.0 28 06/27/19 09:43 94 20 100 Nasal Cannula 2.0 28 06/27/19 09:34 91 18 100 Nasal Cannula 2.0 28 06/27/19 08:00 Nasal Cannula 2.0 Nasal Cannula 2.0 06/27/19 08:00 97.7 92 19 138/79 (98) 100 06/27/19 08:00 89 06/27/19 07:28 95 21 100 Nasal Cannula 2.0 28 06/27/19 07:19 99 Nasal Cannula 2.0 28 06/27/19 07:19 89 22 99 Nasal Cannula 2.0 28 06/27/19 04:00 Nasal Cannula 2.0 Nasal Cannula 2.0 06/27/19 04:00 97.8 80 20 126/71 (89) 100 06/27/19 03:25 102 06/27/19 02:33 96 20 100 Nasal Cannula 2.0 28 06/27/19 02:23 97 22 98 Nasal Cannula 2.0 28 06/27/19 00:00 97.7 102 24 129/74 (92) 97 06/27/19 00:00 Nasal Cannula 2.0 Nasal Cannula 2.0 06/26/19 23:27 94 06/26/19 23:16 91 20 100 Nasal Cannula 2.0 28 06/26/19 23:05 92 20 100 Nasal Cannula 2.0 28 06/26/19 23:05 93 22 100 Nasal Cannula 2.0 28 06/26/19 22:50 94 22 98 Nasal Cannula 2.0 28 06/26/19 20:00 97.9 89 24 124/65 (84) 100 06/26/19 20:00 Nasal Cannula 2.0 06/26/19 19:53 93 20 100 Nasal Cannula 2.0 28 06/26/19 19:45 98 Nasal Cannula 3.0 32 06/26/19 19:44 88 22 100 Nasal Cannula 2.0 28 06/26/19 19:01 94 06/26/19 16:00 Nasal Cannula 2.0 06/26/19 16:00 98 06/26/19 16:00 97.5 100 23 141/77 (98) 100 06/26/19 14:53 96 21 99 Nasal Cannula 2.0 28 06/26/19 14:42 89 18 97 Nasal Cannula 2.0 28 06/26/19 12:00 Nasal Cannula 2.0 06/26/19 12:00 97.3 91 24 132/71 (91) 100 06/26/19 12:00 92 06/26/19 11:13 93 20 99 Nasal Cannula 2.0 28 06/26/19 11:03 87 21 97 Nasal Cannula 2.0 28 I&O Intake and Output 06/26/19 06/27/19 19:00 07:00 Intake Total 1465 ml 720 ml Output Total 1475 ml Balance -10 ml 720 ml Free Water 105 ml IV Total 660 ml Tube Feeding 660 ml 720 ml Other 40 ml Output Urine Total 1475 ml # Bowel Movements 2 1 Dressing: saturated Wound: other Drains: other Cardiovascular: RSR Respiratory: decreased breath sounds Abdomen: soft, present bowel sounds, other, non-distended Extremities: other Laboratory Tests Test 06/26/19 12:45 06/27/19 03:30 Vancomycin Level Trough 11.7 ug/mL (5.0-12.0) White Blood Count 5.0 K/UL (4.8-10.8) Red Blood Count 3.72 M/UL (4.70-6.10) L Hemoglobin 8.7 G/DL (14.2-18.0) L Hematocrit 28.9 % (42.0-52.0) L Mean Corpuscular Volume 78 FL (80-99) L Mean Corpuscular Hemoglobin 23.3 PG (27.0-31.0) L Mean Corpuscular Hemoglobin Concent 30.1 G/DL (32.0-36.0) L Red Cell Distribution Width 22.7 % (11.6-14.8) H Platelet Count 327 K/UL (150-450) Mean Platelet Volume 5.7 FL (6.5-10.1) L Neutrophils (%) (Auto) 65.5 % (45.0-75.0) Lymphocytes (%) (Auto) 21.7 % (20.0-45.0) Monocytes (%) (Auto) 9.9 % (1.0-10.0) Eosinophils (%) (Auto) 2.2 % (0.0-3.0) Basophils (%) (Auto) 0.7 % (0.0-2.0) Sodium Level 133 MMOL/L (136-145) L Potassium Level 3.9 MMOL/L (3.5-5.1) Chloride Level 102 MMOL/L (98-107) Carbon Dioxide Level 27 MMOL/L (21-32) Anion Gap 4 mmol/L (5-15) L Blood Urea Nitrogen 11 mg/dL (7-18) Creatinine 0.4 MG/DL (0.55-1.30) L Estimat Glomerular Filtration Rate mL/min (>60) Glucose Level 142 MG/DL (74-106) H Calcium Level 8.4 MG/DL (8.5-10.1) L Magnesium Level 1.6 MG/DL (1.8-2.4) L Plan Problems: (1) Respiratory distress (2) Sepsis Assessment & Plan: leukocytosis resoled abnormal labs improved on IV abx cxr noted trend labs micro with bacteremia e.f iv fluids in further evaluate the patient for the past few days it is likely that at some point he may need a lower extremity amputation. I sincerely agree with primary care's decision about considerations for change of CODE STATUS. Would exhaust all measures of working with social sciences department chair to stay and were most necessary to evaluate CODE STATUS prior to considerations of such aggressive intervention. (3) Decubitus ulcer of trochanteric region of left hip Assessment & Plan: Pt presented on admission with contractures,multiple pressure injuries. Full thickness pressure injury noted to L ear. Base of wound is pink-moist with macerated borders. Small amt. non-odorous exudate noted.(L) 1cm x (W)0.5cm x0.2cm. Full thickness sacral pressure injury noted. Base of wound 75% pink granulation ,25% slough .edges adherent to base of wound. Brown discoloration without fluctuance /induration noted periwound.(L)4cm x (W)6cm. Full thickness pressure injury with undermining L trochanter. Base of wound moist-pink , bone is palpable. Periwound is dark without erythema or induration. (L)5.5cm x (W)3cm x (D)0.8cm,undermining clockwise 12-12 by 4.1cm @11o'clock. Full thickness pressure injury L ischium .Base of wound 40% pink granulation ,60 % slough ,erythematous borders. Periwound dark and indurated. (L)2cm x (W)2cm. Scrotal area area red. Full thickness pressure injury base of scrotum. Base of wound has 75% slough ,25% moist and viable. Full thickness pressure injury base of scrotum. Base of wound has 75% slough ,25 % moist and viable. Full thickness wound idalia R tibia. [place] granulation at base of wound. Edges adherent. No odor or exudate noted. Periwound without erythema or elevation in skin temp.(L)4.5cm x (W)1.5cm. DTPI noted to lateral R heel. Base of wound purple and fluctuant with surrounding maroon borders.(L)2.3xcm x (W)3cm. Full thickness wound lateral/plantar L foot(L)7.4cm x (W)18.5cm x (D)1.4cm. [place] granulation at base of wound with scattered slough.Bone is palpable. Mild odor noted .Small amt seropurulent exudate noted. Edges macerated. Periwound is fluctuant. L st metatarsal flaccid. Full thickness ulcer noted to plantar L foot. Base of wound moist -viable with pink epithelial borders. Periwound is fluctuant. Small amt serous exudate noted. Full thickness wound medial L foot. 75% slough at base of wound,25% viable. Macerated borders. Mild odor noted. (L)3cm x (W)3cm. Stable dry eschar L hallux (L)0.6cm x (W)1cm. L 2nd -5th metatarsal are dusky in colour. Tx.Plan: Cleanse all wounds Buttocks with Dakin's 0.125% daysi. Apply Dakin's moist gauze to wounds. Cover with Optifoam drsgs. Cleanse wounds L foot with Dakin's 0.125% daysi. Apply Dakin's moist gauze to wounds. Cover with ABD pads and wrap with Kerlix daily and prn. Cleanse wounds R tibia, and R foot with Dakin's 0.125% daysi. Apply Dakin's moist gauze cover with Abd pads and wrap with Kerlix daily and prn. Apply Moisture Barrier Paste to wound on scrotum. Cover with Optifoam drsg. Daily and prn. APM/KAOVN Mattress overlay. Reposition at least every 2hours or as tolerated. Place pillow between knees. Off-load heels with pillow. Rios Quiñones Jun 27, 2019 10:48
[2019-06-27] MEDS ORDERED: 1/2 NS 1000ml IV ONE (10:55)
[2019-06-27] MEDS ORDERED: NS 275ml ONE (10:55)
--- NOTE | 2019-06-27 11:06 | General Progress Note ---
"Assessment/Plan Assessment/Plan: Sepsis - BC E. Fecalis!!!. On broad-spectrum IV Abx per ID. Most likely due to infected decubiti, although pneumonia and Urosepsis are also potential sources. To clarify Code Status with Conservator. Left VM . No response.... Needs to change PICC line Urgently as a life threatening condition!!! Enterococcus | coag neg staph sepsis Acenitobacter pneumonia Subjective Allergies: Coded Allergies: No Known Allergies (Unverified , 02/25/19) Subjective Nonverbal. Objective Last 24 Hour Vital Signs Date Time Temp Pulse Resp B/P (MAP) Pulse Ox O2 Delivery O2 Flow Rate FiO2 06/27/19 10:43 94 17 99 Nasal Cannula 2.0 28 06/27/19 09:43 94 20 100 Nasal Cannula 2.0 28 06/27/19 09:34 91 18 100 Nasal Cannula 2.0 28 06/27/19 08:00 Nasal Cannula 2.0 Nasal Cannula 2.0 06/27/19 08:00 97.7 92 19 138/79 (98) 100 06/27/19 08:00 89 06/27/19 07:28 95 21 100 Nasal Cannula 2.0 28 06/27/19 07:19 99 Nasal Cannula 2.0 28 06/27/19 07:19 89 22 99 Nasal Cannula 2.0 28 06/27/19 04:00 Nasal Cannula 2.0 Nasal Cannula 2.0 06/27/19 04:00 97.8 80 20 126/71 (89) 100 06/27/19 03:25 102 06/27/19 02:33 96 20 100 Nasal Cannula 2.0 28 06/27/19 02:23 97 22 98 Nasal Cannula 2.0 28 06/27/19 00:00 97.7 102 24 129/74 (92) 97 06/27/19 00:00 Nasal Cannula 2.0 Nasal Cannula 2.0 06/26/19 23:27 94 06/26/19 23:16 91 20 100 Nasal Cannula 2.0 28 06/26/19 23:05 92 20 100 Nasal Cannula 2.0 28 06/26/19 23:05 93 22 100 Nasal Cannula 2.0 28 06/26/19 22:50 94 22 98 Nasal Cannula 2.0 28 06/26/19 20:00 97.9 89 24 124/65 (84) 100 06/26/19 20:00 Nasal Cannula 2.0 06/26/19 19:53 93 20 100 Nasal Cannula 2.0 28 06/26/19 19:45 98 Nasal Cannula 3.0 32 06/26/19 19:44 88 22 100 Nasal Cannula 2.0 28 06/26/19 19:01 94 06/26/19 16:00 Nasal Cannula 2.0 06/26/19 16:00 98 06/26/19 16:00 97.5 100 23 141/77 (98) 100 06/26/19 14:53 96 21 99 Nasal Cannula 2.0 28 06/26/19 14:42 89 18 97 Nasal Cannula 2.0 28 06/26/19 12:00 Nasal Cannula 2.0 06/26/19 12:00 97.3 91 24 132/71 (91) 100 06/26/19 12:00 92 06/26/19 11:13 93 20 99 Nasal Cannula 2.0 28 Intake and Output 06/26/19 06/27/19 19:00 07:00 Intake Total 1465 ml 720 ml Output Total 1475 ml Balance -10 ml 720 ml Free Water 105 ml IV Total 660 ml Tube Feeding 660 ml 720 ml Other 40 ml Output Urine Total 1475 ml # Bowel Movements 2 1 Laboratory Tests 06/26/19 12:45: Vancomycin Level Trough 11.7 06/27/19 03:30: White Blood Count 5.0, Red Blood Count 3.72L, Hemoglobin 8.7L, Hematocrit 28.9L , Mean Corpuscular Volume 78L, Mean Corpuscular Hemoglobin 23.3L, Mean Corpuscular Hemoglobin Concent 30.1L, Red Cell Distribution Width 22.7H, Platelet Count 327, Mean Platelet Volume 5.7L, Neutrophils (%) (Auto) 65.5, Lymphocytes (%) (Auto) 21.7, Monocytes (%) (Auto) 9.9, Eosinophils (%) (Auto) 2.2, Basophils (%) (Auto) 0.7, Sodium Level 133L, Potassium Level 3.9, Chloride Level 102, Carbon Dioxide Level 27, Anion Gap 4L, Blood Urea Nitrogen 11, Creatinine 0.4L, Estimat Glomerular Filtration Rate , Glucose Level 142H, Calcium Level 8.4L, Magnesium Level 1.6L Height (Feet): 5 Height (Inches): 6.00 Weight (Pounds): 124 Objective [place]. Cv RR Skin - multiple decubitus ulcers: Sacral, hip, heels. (see pictures). CV RR Lungs B Ronchi. Abd. SNT. BS + E Muscle wasting. No CCE. Neuro alert, nonverbal, nonfocal. Ervin Mario MD Jun 27, 2019 11:06"
[2019-06-27 12:00] VITALS: BP 139/72
--- NOTE | 2019-06-27 12:13 | NUR ---
ICT PROGRAMMERLICENSED PHARMACIST SI: SEPSIS,PNA ACINETOBACTER 2L NC O2 SAT @ 98% NA 133 IS: IVF NS@50ML/HR VANCO IV COLISTIN INH HEPARIN SUBC STEP DOWN STATUS
--- NOTE | 2019-06-27 12:35 | Infectious Diseases Prog Note ---
Assessment/Plan Assessment/Plan IMPRESSION: 1.Bacteremia with Enterococcus & CoANS 2. Pneumonia with MDR Acinetobacter 3. Hematuria, we will try to rule out UTI. 4. Advanced dementia. 5. VRE colonization. 6. Anemia. 7. Pressure ulcer, generally improving. 8. COPD. 9. 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 RECOMMENDATIONS: continue Colistin inhaler Continue vancomycin Will f/u echocardiogram Subjective ROS Limited/Unobtainable: Yes Constitutional: Denies: fever Allergies: Coded Allergies: No Known Allergies (Unverified , 02/25/19) Objective Vital Signs Last 24 Hour Vital Signs Date Time Temp Pulse Resp B/P (MAP) Pulse Ox O2 Delivery O2 Flow Rate FiO2 06/27/19 10:55 96 22 100 Nasal Cannula 2.0 28 06/27/19 10:43 94 17 99 Nasal Cannula 2.0 28 06/27/19 09:43 94 20 100 Nasal Cannula 2.0 28 06/27/19 09:34 91 18 100 Nasal Cannula 2.0 28 06/27/19 08:00 Nasal Cannula 2.0 Nasal Cannula 2.0 06/27/19 08:00 97.7 92 19 138/79 (98) 100 06/27/19 08:00 89 06/27/19 07:28 95 21 100 Nasal Cannula 2.0 28 06/27/19 07:19 99 Nasal Cannula 2.0 28 06/27/19 07:19 89 22 99 Nasal Cannula 2.0 28 06/27/19 04:00 Nasal Cannula 2.0 Nasal Cannula 2.0 06/27/19 04:00 97.8 80 20 126/71 (89) 100 06/27/19 03:25 102 06/27/19 02:33 96 20 100 Nasal Cannula 2.0 28 06/27/19 02:23 97 22 98 Nasal Cannula 2.0 28 06/27/19 00:00 97.7 102 24 129/74 (92) 97 06/27/19 00:00 Nasal Cannula 2.0 Nasal Cannula 2.0 06/26/19 23:27 94 06/26/19 23:16 91 20 100 Nasal Cannula 2.0 28 06/26/19 23:05 92 20 100 Nasal Cannula 2.0 28 06/26/19 23:05 93 22 100 Nasal Cannula 2.0 28 06/26/19 22:50 94 22 98 Nasal Cannula 2.0 28 06/26/19 20:00 97.9 89 24 124/65 (84) 100 06/26/19 20:00 Nasal Cannula 2.0 06/26/19 19:53 93 20 100 Nasal Cannula 2.0 28 06/26/19 19:45 98 Nasal Cannula 3.0 32 06/26/19 19:44 88 22 100 Nasal Cannula 2.0 28 06/26/19 19:01 94 06/26/19 16:00 Nasal Cannula 2.0 06/26/19 16:00 98 06/26/19 16:00 97.5 100 23 141/77 (98) 100 06/26/19 14:53 96 21 99 Nasal Cannula 2.0 06/26/19 14:42 89 18 97 Nasal Cannula 2.0 28 Height (Feet): 5 Height (Inches): 6.00 Weight (Pounds): 124 General Appearance: no acute distress HEENT: mucous membranes moist Respiratory/Chest: lungs clear Cardiovascular: normal rate Abdomen: soft, non tender, other - GT feeding Genitourinary: other - Anderson catheter Extremities: no edema Skin: ulcers Neurologic/Psychiatric: aphasia Musculoskeletal: atrophy Laboratory Tests Test 06/26/19 12:45 06/27/19 03:30 Vancomycin Level Trough 11.7 ug/mL (5.0-12.0) White Blood Count 5.0 K/UL (4.8-10.8) Red Blood Count 3.72 M/UL (4.70-6.10) L Hemoglobin 8.7 G/DL (14.2-18.0) L Hematocrit 28.9 % (42.0-52.0) L Mean Corpuscular Volume 78 FL (80-99) L Mean Corpuscular Hemoglobin 23.3 PG (27.0-31.0) L Mean Corpuscular Hemoglobin Concent 30.1 G/DL (32.0-36.0) L Red Cell Distribution Width 22.7 % (11.6-14.8) H Platelet Count 327 K/UL (150-450) Mean Platelet Volume 5.7 FL (6.5-10.1) L Neutrophils (%) (Auto) 65.5 % (45.0-75.0) Lymphocytes (%) (Auto) 21.7 % (20.0-45.0) Monocytes (%) (Auto) 9.9 % (1.0-10.0) Eosinophils (%) (Auto) 2.2 % (0.0-3.0) Basophils (%) (Auto) 0.7 % (0.0-2.0) Sodium Level 133 MMOL/L (136-145) L Potassium Level 3.9 MMOL/L (3.5-5.1) Chloride Level 102 MMOL/L (98-107) Carbon Dioxide Level 27 MMOL/L (21-32) Anion Gap 4 mmol/L (5-15) L Blood Urea Nitrogen 11 mg/dL (7-18) Creatinine 0.4 MG/DL (0.55-1.30) L Estimat Glomerular Filtration Rate mL/min (>60) Glucose Level 142 MG/DL (74-106) H Calcium Level 8.4 MG/DL (8.5-10.1) L Magnesium Level 1.6 MG/DL (1.8-2.4) L Current Medications Medications (Trade) Dose Ordered Sig/Mckenzie Route PRN Reason Start Time Stop Time Status Last Admin Dose Admin Albuterol Sulfate (Proventil) 2.5 mg Q4HRT HHN 06/23/19 11:00 06/28/19 10:59 06/27/19 10:42 Ascorbic Acid (Vitamin C) 250 mg BID GT 06/25/19 18:00 07/25/19 17:59 06/27/19 08:46 Chlorhexidine Gluconate (Liz-Hex 2%) 1 applic DAILY@1999 TOPIC 06/25/19 20:00 07/25/19 19:59 06/25/19 20:52 Colistimethate Sodium (Colistin *inhalation use only*) 75 mg Q12HR@10,22 INH 06/25/19 22:00 07/02/19 21:59 06/27/19 09:34 Heparin Sodium (Porcine) (Heparin 5000 units/ml) 5,000 units EVERY 12 HOURS SUBQ 06/22/19 09:00 07/22/19 08:59 06/27/19 08:49 Heparin Sodium/ Sodium Chloride (Heparin 1000 units/500ml Premix) 1,000 unit ONCE PRN IV picc line placement 06/25/19 14:15 06/27/19 14:14 Lidocaine HCl (Xylocaine 1% 30ml) 30 ml ONCE PRN INJ picc line placement 06/25/19 14:15 06/27/19 14:14 Sodium Hypochlorite (Dakin's Quarter Strength) 1 applic BEDTIME TOPIC 06/24/19 21:00 07/23/19 08:59 06/26/19 20:56 Sodium Hypochlorite (Dakin's Quarter Strength) 1 applic DAILY TOPIC 06/27/19 09:00 07/27/19 08:59 06/27/19 09:33 Sodium Chloride 1,000 ml @ 50 mls/hr Q20H IV 06/22/19 04:15 07/22/19 04:14 06/27/19 04:12 Vancomycin HCl (Vanco rx to dose) 1 ea DAILY PRN MISC Per rx protocol 06/22/19 04:15 07/22/19 04:14 Vancomycin HCl 750 mg/Sodium Chloride 275 ml @ 183.333 mls/hr Q12HR@0000,1200 IVPB 06/27/19 12:00 07/02/19 11:59 Zinc Sulfate (Zinc Sulfate) 220 mg DAILY GT 06/26/19 09:00 07/26/19 08:59 06/27/19 08:46 Lev Pardo MD Jun 27, 2019 12:35
[2019-06-27] MEDS: Vancomycin 750mg/NS 275ml IVPB SCH ×2 (13:57)
--- NOTE | 2019-06-27 14:05 | NUR ---
HAND-OFF: Report given to JOSE Lopez.
--- NOTE | 2019-06-27 14:26 | NUR ---
NURSE NOTES: Received pt from JOSE Arechiga. Non-verbal, opens eyes spontaneously, unable to follow commands. 2LNC, spo2 100%, breathing even and unlabored. SR on site monitor. Severe contracture noted on left upper arm and bilateral lower extremities. on p200 mattress. PEG running jevity 1.2@60ml/hr, abdomen soft, non-distended, hob 35 degrees. LAC 22G running 1/2NS@50ml/hr. Pt ot have PICC today. Consent signed by conservator: Sheyla Mora . dressings clean and intact. Bed locked, alarmed and in lowest position.
[2019-06-27] MEDS ORDERED: Lidocaine 1% Plain 30 ml INJ PRN (14:30)
[2019-06-27] MEDS ORDERED: Heparin1,000 units/500ml Premix(Conc:2 units/ml) IV PRN (14:30)
--- NOTE | 2019-06-27 14:42 | NUR ---
Social Service Note SW spoke with PG February [phone]. While in SNF patient was in the process of request of DNR/DNI and hospice. Message left for Dr. Parks. Will arrange bioethics. Addendum: 06/28/19 at 1816 by COURTNEY PARNELL Message left for Public Guardian that patient is pending dc. SNF will need to follow up with code status change and hospice. Bioethics not available for consult this week.
--- NOTE | 2019-06-27 15:22 | NUR ---
LEFT UPPER ARM DUAL LUMEN PICC LINE PLACED BY DR. WING. FA
--- NOTE | 2019-06-27 15:35 | NUR ---
NURSE NOTES: PICC placed in left upper arm, waiting for placement verification. Addendum: 06/27/19 at 1846 by IVÁN BRUNSON RN placement verified by radiologist.
[2019-06-27 16:00] VITALS: BP 126/85
--- NOTE | 2019-06-27 17:25 | Diagnostic Imaging Report ---
Indications: Needs long-term IV access Technique: Procedure performed at bedside. Procedural timeout performed. Ultrasound confirms patent compressible left basilic vein. Total sterile technique, including sterile probe cover and sterile gel, sterile gloves, hand hygiene, hat, mask,, sterile gown, large sterile drape, and preparation with 2% chlorhexidine utilized. Local anesthesia with 1% lidocaine. Under real-time ultrasound guidance, puncture basilic vein using 21-gauge needle, passage 0.018 guidewire, exchange for 4 Yi peel-away sheath. 4 Yi Bard dual-lumen power PICC cut to 43 cm. It was inserted through the peel-away sheath. Peel-away sheath and guidewire removed. Catheter fixed to the skin. Both catheter ports aspirated and flushed. Patient tolerated procedure well, without immediate complication. Followup chest x-ray obtained, documents catheter tip position at the cavoatrial junction Impression: Successful bedside placement of left arm PICC under sonographic guidance, as described above.
--- NOTE | 2019-06-27 19:29 | NUR ---
HAND-OFF: Report given to Tyron Mesa RN.
--- NOTE | 2019-06-27 19:30 | NUR ---
NURSE NOTES: Received report from JOSE Lopez. Pt is resting in bed. In no acute distress. IV line intact and patent. GT site intact. HOB elevated. Bed in lowest position, call light within reach. Will continue plan of care.
[2019-06-27 20:00] VITALS: BP 136/81
[2019-06-27] MEDS: Dyna-Hex 2% Top Sol 2oz TOPIC SCH (20:20)
[2019-06-28] VITALS: BP 130/83
[2019-06-28] MEDS: Vancomycin 750mg/NS 275ml IVPB SCH ×4 (00:11→12:03)
[2019-06-28] MEDS: Albuterol ud Inhalation HHN SCH ×5 (02:45→18:55)
[2019-06-28 04:00] VITALS: BP 138/75
--- NOTE | 2019-06-28 07:20 | NUR ---
HAND-OFF: Report given to JOSE Sánchez.
--- NOTE | 2019-06-28 07:21 | NUR ---
NURSE NOTES: Received report from JOSE Ackerman. Patient is resting in bed in stable condition. No s/sx of SOB, breathing is even and unlabored, on 2 L NC. Bed is in lowest position, brakes engaged. Bed is in lowest position, brakes engaged. Call light is kept within easy reach. Will continue to monitor patient.
[2019-06-28 08:00] VITALS: BP 101/58
[2019-06-28] MEDS: Ascorbic Acid 500mg tab GT SCH ×2 (08:04→17:29)
[2019-06-28] MEDS: Zinc Sulfate 220mg cap GT SCH (08:05)
[2019-06-28] MEDS: Dakin's 0.125% Soln (Quarter Strength) 16oz TOPIC SCH ×2 (08:05→20:35)
[2019-06-28] MEDS: Heparin 5000 units/ml inj SUBQ SCH ×2 (08:06→20:36)
[2019-06-28] MEDS: Colistin for inhalation INH SCH ×2 (10:05→21:50)
--- NOTE | 2019-06-28 10:41 | Infectious Diseases Prog Note ---
"Assessment/Plan Assessment/Plan antibiotics : vancomycin iv 7..19- inhaled colistin A 1. enterococcus | coag neg staph sepsis 2. acenitobacter pneumonia 3. leucocytosis resolved 4. dementia P 1. continue iv vancomycin 7 more days 2. continue inhaled colistin 2 more days 3. will follow up cultures Subjective ROS Limited/Unobtainable: Yes Allergies: Coded Allergies: No Known Allergies (Unverified , 02/25/19) Objective Vital Signs Last 24 Hour Vital Signs Date Time Temp Pulse Resp B/P (MAP) Pulse Ox O2 Delivery O2 Flow Rate FiO2 06/28/19 10:30 94 20 99 Nasal Cannula 2.0 28 06/28/19 10:19 89 22 100 Nasal Cannula 2.0 28 06/28/19 10:05 98 23 99 Nasal Cannula 2.0 28 06/28/19 08:00 96 06/28/19 08:00 97.8 96 20 101/58 (72) 99 06/28/19 08:00 Nasal Cannula 2.0 Nasal Cannula 2.0 06/28/19 07:28 9 21 100 Nasal Cannula 2.0 28 06/28/19 07:19 96 17 100 Nasal Cannula 2.0 28 06/28/19 07:19 100 Nasal Cannula 2.0 28 06/28/19 04:00 Nasal Cannula 2.0 Nasal Cannula 2.0 06/28/19 04:00 96 06/28/19 04:00 97.9 96 22 138/75 (96) 98 06/28/19 02:52 84 20 100 Nasal Cannula 2.0 06/28/19 02:45 70 20 97 Nasal Cannula 2.0 06/28/19 00:00 97.7 99 22 130/83 (99) 98 06/28/19 00:00 Nasal Cannula 2.0 Nasal Cannula 2.0 06/28/19 00:00 99 06/27/19 23:21 86 20 100 Nasal Cannula 2.0 28 06/27/19 23:10 78 22 100 Nasal Cannula 2.0 28 06/27/19 21:24 88 20 99 Nasal Cannula 2.0 28 06/27/19 21:14 90 18 97 Nasal Cannula 2.0 28 06/27/19 20:00 97.7 110 24 136/81 (99) 98 06/27/19 20:00 Nasal Cannula 2.0 Nasal Cannula 2.0 06/27/19 20:00 110 06/27/19 18:36 88 20 100 Nasal Cannula 2.0 28 06/27/19 18:25 80 20 98 Nasal Cannula 2.0 28 06/27/19 18:25 98 Nasal Cannula 2.0 28 06/27/19 17:24 83 06/27/19 16:00 98.1 98 18 126/85 (99) 100 06/27/19 16:00 Nasal Cannula 2.0 Nasal Cannula 2.0 06/27/19 15:28 92 21 100 Nasal Cannula 2.0 28 06/27/19 15:19 94 23 96 Nasal Cannula 2.0 28 06/27/19 12:47 88 06/27/19 12:00 Nasal Cannula 2.0 Nasal Cannula 2.0 06/27/19 12:00 97.7 96 18 139/72 (94) 100 06/27/19 10:55 96 22 100 Nasal Cannula 2.0 28 06/27/19 10:43 94 17 99 Nasal Cannula 2.0 28 Height (Feet): 5 Height (Inches): 6.00 Weight (Pounds): 124 Respiratory/Chest: lungs clear Cardiovascular: normal rate, regular rhythm, no gallop/murmur Abdomen: soft, non tender, other - GT Extremities: no edema Microbiology Date/Time Source Procedure Growth Status 06/26/19 10:40 Blood Blood Culture - Preliminary NO GROWTH AFTER 24 HOURS Resulted Current Medications Medications (Trade) Dose Ordered Sig/Mckenzie Route PRN Reason Start Time Stop Time Status Last Admin Dose Admin Albuterol Sulfate (Proventil) 2.5 mg Q4HRT HHN 06/28/19 11:00 07/03/19 10:59 06/28/19 10:30 Ascorbic Acid (Vitamin C) 250 mg BID GT 06/25/19 18:00 07/25/19 17:59 06/28/19 08:04 Chlorhexidine Gluconate (Liz-Hex 2%) 1 applic DAILY@1999 TOPIC 06/27/19 20:00 07/27/19 19:59 06/27/19 20:20 Colistimethate Sodium (Colistin *inhalation use only*) 75 mg Q12HR@10,22 INH 06/25/19 22:00 07/02/19 21:59 06/28/19 10:05 Heparin Sodium (Porcine) (Heparin 5000 units/ml) 5,000 units EVERY 12 HOURS SUBQ 06/22/19 09:00 07/22/19 08:59 06/28/19 08:06 Heparin Sodium/ Sodium Chloride (Heparin 1000 units/500ml Premix) 1,000 unit ONCE PRN IV picc line placement 06/27/19 14:30 06/29/19 14:29 Lidocaine HCl (Xylocaine 1% 30ml) 30 ml ONCE PRN INJ picc line placement 06/27/19 14:30 06/29/19 14:29 Sodium Hypochlorite (Dakin's Quarter Strength) 1 applic BEDTIME TOPIC 06/24/19 21:00 07/23/19 08:59 06/27/19 20:20 Sodium Hypochlorite (Dakin's Quarter Strength) 1 applic DAILY TOPIC 06/27/19 09:00 07/27/19 08:59 06/28/19 08:05 Sodium Chloride 1,000 ml @ 50 mls/hr Q20H IV 06/22/19 04:15 07/22/19 04:14 06/28/19 04:41 Vancomycin HCl (Vanco rx to dose) 1 ea DAILY PRN MISC Per rx protocol 06/22/19 04:15 07/22/19 04:14 Vancomycin HCl 750 mg/Sodium Chloride 275 ml @ 183.333 mls/hr Q12HR@0000,1200 IVPB 06/27/19 12:00 07/02/19 11:59 06/28/19 00:11 Zinc Sulfate (Zinc Sulfate) 220 mg DAILY GT 06/26/19 09:00 07/26/19 08:59 06/28/19 08:05 Manan Gomez MD Jun 28, 2019 10:41"
[2019-06-28 12:00] VITALS: BP 124/68
--- NOTE | 2019-06-28 12:27 | Pulmonology Progress Note ---
Assessment/Plan Assessment/Plan Pulmonary Progress Note Assessment/Plan IMPRESSION: 1. Respiratory failure, acute on chronic. 2. Pneumonia, likely aspiration. 3. Chronic obstructive pulmonary disease, chronic. 4. Multiple decubitus. 5. Multiple contractures. 6. Severe protein-calorie malnutrition. 7. Recurrent urosepsis. 9. MDR sputum 10. VRE Stable overnight s/p PICC line PLAN isolation as is ID noted cultures reviewed antibiotics noted oxygen low flow suction as needed neb therapy aspiration precautions maintain meds monitor for change advanced directives off load nutrition dc planning impression, plan, and exam edited and reviewed in detail care discussed with RN Subjective ROS Limited/Unobtainable: Yes Allergies: Coded Allergies: No Known Allergies (Unverified , 02/25/19) Subjective in bed contracted respiratory care reviewed imaging reviewed Objective Vital Signs Noted Objective GENERAL: An ill-appearing male, overall nonresponsive. on oxygen HEENT: Negative. NECK: Supple. The patient remains kyphotic. LUNGS: Coarse breath sounds. Moderate air entry. some rhonchi. CARDIAC: Normal S1 and S2. Regular rate and rhythm without murmurs, rubs, or gallops. ABDOMEN: Soft, nontender, nondistended. G-tube in place. EXTREMITIES: No cyanosis or clubbing. The patient is contracted and rigid. reviewed and examined Laboratory Tests noted Subjective ROS Limited/Unobtainable: No Allergies: Coded Allergies: No Known Allergies (Unverified , 02/25/19) Objective Last 24 Hour Vital Signs Date Time Temp Pulse Resp B/P (MAP) Pulse Ox O2 Delivery O2 Flow Rate FiO2 06/28/19 10:42 95 21 100 Nasal Cannula 2.0 06/28/19 10:30 94 20 99 Nasal Cannula 2.0 06/28/19 10:19 89 22 100 Nasal Cannula 2.0 06/28/19 10:05 98 23 99 Nasal Cannula 2.0 06/28/19 08:00 96 06/28/19 08:00 97.8 96 20 101/58 (72) 99 06/28/19 08:00 Nasal Cannula 2.0 Nasal Cannula 2.0 06/28/19 07:28 93 21 100 Nasal Cannula 2.0 06/28/19 07:19 96 17 100 Nasal Cannula 2.0 06/28/19 07:19 100 Nasal Cannula 2.0 28 06/28/19 04:00 Nasal Cannula 2.0 Nasal Cannula 2.0 06/28/19 04:00 96 06/28/19 04:00 97.9 96 22 138/75 (96) 98 06/28/19 02:52 84 20 100 Nasal Cannula 2.0 28 06/28/19 02:45 70 20 97 Nasal Cannula 2.0 28 06/28/19 00:00 97.7 99 22 130/83 (99) 98 06/28/19 00:00 Nasal Cannula 2.0 Nasal Cannula 2.0 06/28/19 00:00 99 06/27/19 23:21 86 20 100 Nasal Cannula 2.0 28 06/27/19 23:10 78 22 100 Nasal Cannula 2.0 28 06/27/19 21:24 88 20 99 Nasal Cannula 2.0 28 06/27/19 21:14 90 18 97 Nasal Cannula 2.0 28 06/27/19 20:00 97.7 110 24 136/81 (99) 98 06/27/19 20:00 Nasal Cannula 2.0 Nasal Cannula 2.0 06/27/19 20:00 110 06/27/19 18:36 88 20 100 Nasal Cannula 2.0 28 06/27/19 18:25 80 20 98 Nasal Cannula 2.0 28 06/27/19 18:25 98 Nasal Cannula 2.0 28 06/27/19 17:24 83 06/27/19 16:00 98.1 98 18 126/85 (99) 100 06/27/19 16:00 Nasal Cannula 2.0 Nasal Cannula 2.0 06/27/19 15:28 92 21 100 Nasal Cannula 2.0 28 06/27/19 15:19 94 23 96 Nasal Cannula 2.0 28 06/27/19 12:47 88 Intake and Output 06/27/19 06/28/19 19:00 07:00 Intake Total 1380 ml 1505 ml Output Total 1000 ml Balance 1380 ml 505 ml Free Water 120 ml 120 ml IV Total 600 ml 725 ml Tube Feeding 660 ml 660 ml Output Urine Total 1000 ml # Bowel Movements 3 Microbiology Date/Time Source Procedure Growth Status 06/26/19 10:40 Blood Blood Culture - Preliminary NO GROWTH AFTER 24 HOURS Resulted Current Medications Medications (Trade) Dose Ordered Sig/Mckenzie Route PRN Reason Start Time Stop Time Status Last Admin Dose Admin Albuterol Sulfate (Proventil) 2.5 mg Q4HRT HHN 06/28/19 11:00 07/03/19 10:59 06/28/19 10:30 Ascorbic Acid (Vitamin C) 250 mg BID GT 06/25/19 18:00 07/25/19 17:59 06/28/19 08:04 Chlorhexidine Gluconate (Liz-Hex 2%) 1 applic DAILY@1999 TOPIC 06/27/19 20:00 07/27/19 19:59 06/27/19 20:20 Colistimethate Sodium (Colistin *inhalation use only*) 75 mg Q12HR@10,22 INH 06/25/19 22:00 07/02/19 21:59 06/28/19 10:05 Heparin Sodium (Porcine) (Heparin 5000 units/ml) 5,000 units EVERY 12 HOURS SUBQ 06/22/19 09:00 07/22/19 08:59 06/28/19 08:06 Heparin Sodium/ Sodium Chloride (Heparin 1000 units/500ml Premix) 1,000 unit ONCE PRN IV picc line placement 06/27/19 14:30 06/29/19 14:29 Lidocaine HCl (Xylocaine 1% 30ml) 30 ml ONCE PRN INJ picc line placement 06/27/19 14:30 06/29/19 14:29 Sodium Hypochlorite (Dakin's Quarter Strength) 1 applic BEDTIME TOPIC 06/24/19 21:00 07/23/19 08:59 06/27/19 20:20 Sodium Hypochlorite (Dakin's Quarter Strength) 1 applic DAILY TOPIC 06/27/19 09:00 07/27/19 08:59 06/28/19 08:05 Sodium Chloride 1,000 ml @ 50 mls/hr Q20H IV 06/22/19 04:15 07/22/19 04:14 06/28/19 04:41 Vancomycin HCl (Vanco rx to dose) 1 ea DAILY PRN MISC Per rx protocol 06/22/19 04:15 07/22/19 04:14 Vancomycin HCl 750 mg/Sodium Chloride 275 ml @ 183.333 mls/hr Q12HR@0000,1200 IVPB 06/27/19 12:00 07/02/19 11:59 06/28/19 12:03 Zinc Sulfate (Zinc Sulfate) 220 mg DAILY GT 06/26/19 09:00 07/26/19 08:59 06/28/19 08:05 Christopher Rogers MD Jun 28, 2019 12:27
--- NOTE | 2019-06-28 12:33 | Cardiology Report ---
APPROVED REPORT EXAM: Two-dimensional and M-mode echocardiogram with Doppler and color Doppler. INDICATION Endocarditis M-Mode DIMENSIONS IVSd1.4 (0.7-1.1cm)Left Atrium (MM)1.8 (1.6-4.0cm) LVDd4.0 (3.5-5.6cm)Aortic Root2.7 (2.0-3.7cm) PWd1.2 (0.7-1.1cm)Aortic Cusp Exc.1.4 (1.5-2.0cm) IVSs2.1 cm LVDs2.8 (2.5-4.0cm) PWs1.2 cm Normal left ventricular chamber size and systolic function. Anteroseptal hypokinesis. Left ventricular ejection fraction estimated to be 50-55%. Mild left ventricular hypertrophy. No evidence of pericardial effusion. All other cardiac chamber sizes are within normal limits. Aortic valve calcification with reduced cusp excursion . Mildly thickened mitral valve leaflets with normal excursion. Mild mitral annulus and aortic root calcification. Pulmonic valve not well visualized. IVC at normal size with physiologic collapse. A color flow and spectral Doppler study was performed and revealed: Mild aortic insufficiency . Mitral diastolic velocities suggest reduced left ventricular relaxation c/w mild LV diastolic dysfunction (Grade I ) Mild mitral regurgitation. Trace tricuspid regurgitation. Tricuspid systolic velocities suggests peak right ventricular systolic pressure of 10mmHg.
--- NOTE | 2019-06-28 12:43 | NUR ---
ELECTRICAL TIMING DEVICE CALIBRATORSITE HEAD SI: SEPSIS, PNA T. 97.8 HR 96 RR 20 B/P 101/58 2L NC IS: VANCO IV COLISTIN INH IVF NS @ 50ML/HR HEPARIN SUBC STEP DOWN STATUS
--- NOTE | 2019-06-28 14:18 | NUR ---
RD ASSESSMENT & RECOMMENDATIONS SEE CARE ACTIVITY FOR COMPLETE ASSESSMENT DAILY ESTIMATED NEEDS: Needs based on multiple wounds, underweight 51kg 30-35 kcals/kg 7355-8590 total kcals 1.5-2.0 g protein/kg 77-102 g total protein 25-30 mL/kg 3132-4731 total fluid mLs NUTRITION DIAGNOSIS: * Increased kcal/pro needs R/T wound healing and underweight status as evidenced by pt admittedw/ multiple full thickness wounds, refer to wound eval, pt @82% [place] Body Weight w/ severe wasting. * Swallowing difficulty R/T dysphagia as evidenced by pt GT dep for all nutritional needs. CURRENT TF:Jevity 1.2 @ 60ml/hr x 24 hrs + Prosource 1pkt daily ENTERAL NUTRITION RECOMMENDATIONS: Jevity 1.2 @ 60ml/hr x 24 hrs + Prosource 1pkt daily to provide 1440ml, 1728kcal, 80g+11g prot, 1162ml free water * REC TO INCREASE goal rate to 60ml/hr x 24 hrs * Add Prosource 1pkt daily to better meet protein needs * HOB over 30 degrees/ water flush per MD ADDITIONAL RECOMMENDATIONS: * Calibrated bedscale wt for accurate CBW * WOUND HEALING: OLY BID via GT + VIT C 250MG BID + ZN SO4 220mg daily x10 days * TF recs as above to better meet est needs * Monitor lytes, replete as needed .
--- NOTE | 2019-06-28 15:44 | Surgery Progress Note ---
Surgery Progress Note Subjective Symptoms: voiding well, passing flatus Objective Last 24 Hour Vital Signs Date Time Temp Pulse Resp B/P (MAP) Pulse Ox O2 Delivery O2 Flow Rate FiO2 06/28/19 14:33 102 20 100 Nasal Cannula 2.0 06/28/19 14:22 103 22 99 Nasal Cannula 2.0 28 06/28/19 12:00 Nasal Cannula 2.0 Nasal Cannula 2.0 06/28/19 12:00 97 06/28/19 12:00 98.7 99 20 124/68 (86) 99 06/28/19 10:42 95 21 100 Nasal Cannula 2.0 06/28/19 10:30 94 20 99 Nasal Cannula 2.0 06/28/19 10:19 89 22 100 Nasal Cannula 2.0 06/28/19 10:05 98 23 99 Nasal Cannula 2.0 06/28/19 08:00 96 06/28/19 08:00 97.8 96 20 101/58 (72) 99 06/28/19 08:00 Nasal Cannula 2.0 Nasal Cannula 2.0 06/28/19 07:28 93 21 100 Nasal Cannula 2.0 06/28/19 07:19 96 17 100 Nasal Cannula 2.0 06/28/19 07:19 100 Nasal Cannula 2.0 06/28/19 04:00 Nasal Cannula 2.0 Nasal Cannula 2.0 06/28/19 04:00 96 06/28/19 04:00 97.9 96 22 138/75 (96) 98 06/28/19 02:52 84 20 100 Nasal Cannula 2.0 06/28/19 02:45 70 20 97 Nasal Cannula 2.0 06/28/19 00:00 97.7 99 22 130/83 (99) 98 06/28/19 00:00 Nasal Cannula 2.0 Nasal Cannula 2.0 06/28/19 00:00 99 06/27/19 23:21 86 20 100 Nasal Cannula 2.0 06/27/19 23:10 78 22 100 Nasal Cannula 2.0 06/27/19 21:24 88 20 99 Nasal Cannula 2.0 28 06/27/19 21:14 90 18 97 Nasal Cannula 2.0 06/27/19 20:00 97.7 110 24 136/81 (99) 98 06/27/19 20:00 Nasal Cannula 2.0 Nasal Cannula 2.0 06/27/19 20:00 110 06/27/19 18:36 88 20 100 Nasal Cannula 2.0 28 06/27/19 18:25 80 20 98 Nasal Cannula 2.0 28 06/27/19 18:25 98 Nasal Cannula 2.0 28 06/27/19 17:24 83 06/27/19 16:00 98.1 98 18 126/85 (99) 100 06/27/19 16:00 Nasal Cannula 2.0 Nasal Cannula 2.0 I&O Intake and Output 06/27/19 06/28/19 19:00 07:00 Intake Total 1380 ml 1505 ml Output Total 1000 ml Balance 1380 ml 505 ml Free Water 120 ml 120 ml IV Total 600 ml 725 ml Tube Feeding 660 ml 660 ml Output Urine Total 1000 ml # Bowel Movements 3 Dressing: saturated Wound: other Drains: other Cardiovascular: RSR Respiratory: decreased breath sounds Abdomen: soft, present bowel sounds, non-distended Extremities: other Plan Problems: (1) Respiratory distress (2) Sepsis Assessment & Plan: leukocytosis resoled abnormal labs improved on IV abx cxr noted trend labs micro with bacteremia e.f iv fluids in further evaluate the patient for the past few days it is likely that at some point he may need a lower extremity amputation. I sincerely agree with primary care's decision about considerations for change of CODE STATUS. Would exhaust all measures of working with social and political studies professor to stay and were most necessary to evaluate CODE STATUS prior to considerations of such aggressive intervention. (3) Decubitus ulcer of trochanteric region of left hip Assessment & Plan: Pt presented on admission with contractures,multiple pressure injuries. Full thickness pressure injury noted to L ear. Base of wound is pink-moist with macerated borders. Small amt. non-odorous exudate noted.(L) 1cm x (W)0.5cm x0.2cm. Full thickness sacral pressure injury noted. Base of wound 75% pink granulation ,25% slough .edges adherent to base of wound. Brown discoloration without fluctuance /induration noted periwound.(L)4cm x (W)6cm. Full thickness pressure injury with undermining L trochanter. Base of wound moist-pink , bone is palpable. Periwound is dark without erythema or induration. (L)5.5cm x (W)3cm x (D)0.8cm,undermining clockwise 12-12 by 4.1cm @11o'clock. Full thickness pressure injury L ischium .Base of wound 40% pink granulation ,60 % slough ,erythematous borders. Periwound dark and indurated. (L)2cm x (W)2cm. Scrotal area area red. Full thickness pressure injury base of scrotum. Base of wound has 75% slough ,25% moist and viable. Full thickness pressure injury base of scrotum. Base of wound has 75% slough ,25 % moist and viable. Full thickness wound idalia R tibia. Armstrong granulation at base of wound. Edges adherent. No odor or exudate noted. Periwound without erythema or elevation in skin temp.(L)4.5cm x (W)1.5cm. DTPI noted to lateral R heel. Base of wound purple and fluctuant with surrounding maroon borders.(L)2.3xcm x (W)3cm. Full thickness wound lateral/plantar L foot(L)7.4cm x (W)18.5cm x (D)1.4cm. Armstrong granulation at base of wound with scattered slough.Bone is palpable. Mild odor noted .Small amt seropurulent exudate noted. Edges macerated. Periwound is fluctuant. L st metatarsal flaccid. Full thickness ulcer noted to plantar L foot. Base of wound moist -viable with pink epithelial borders. Periwound is fluctuant. Small amt serous exudate noted. Full thickness wound medial L foot. 75% slough at base of wound,25% viable. Macerated borders. Mild odor noted. (L)3cm x (W)3cm. Stable dry eschar L hallux (L)0.6cm x (W)1cm. L 2nd -5th metatarsal are dusky in colour. Tx.Plan: Cleanse all wounds Buttocks with Dakin's 0.125% daysi. Apply Dakin's moist gauze to wounds. Cover with Optifoam drsgs. Cleanse wounds L foot with Dakin's 0.125% daysi. Apply Dakin's moist gauze to wounds. Cover with ABD pads and wrap with Kerlix daily and prn. Cleanse wounds R tibia, and R foot with Dakin's 0.125% daysi. Apply Dakin's moist gauze cover with Abd pads and wrap with Kerlix daily and prn. Apply Moisture Barrier Paste to wound on scrotum. Cover with Optifoam drsg. Daily and prn. APM/KAVON Mattress overlay. Reposition at least every 2hours or as tolerated. Place pillow between knees. Off-load heels with pillow. Rios Quiñones Jun 28, 2019 15:44
[2019-06-28 16:00] VITALS: BP 135/82
--- NOTE | 2019-06-28 16:28 | General Progress Note ---
Assessment/Plan Assessment/Plan: Sepsis - resolving. IV Abx per ID. Filled out DNR forms [facility] DC to [facility] Subjective Allergies: Coded Allergies: No Known Allergies (Unverified , 02/25/19) Subjective Nonverbal. Objective Last 24 Hour Vital Signs Date Time Temp Pulse Resp B/P (MAP) Pulse Ox O2 Delivery O2 Flow Rate FiO2 06/28/19 16:00 Nasal Cannula 2.0 Nasal Cannula 2.0 06/28/19 14:33 102 20 100 Nasal Cannula 2.0 06/28/19 14:22 103 22 99 Nasal Cannula 2.0 28 06/28/19 12:00 Nasal Cannula 2.0 Nasal Cannula 2.0 06/28/19 12:00 97 06/28/19 12:00 98.7 99 20 124/68 (86) 99 06/28/19 10:42 95 21 100 Nasal Cannula 2.0 06/28/19 10:30 94 20 99 Nasal Cannula 2.0 06/28/19 10:19 89 22 100 Nasal Cannula 2.0 06/28/19 10:05 98 23 99 Nasal Cannula 2.0 06/28/19 08:00 96 06/28/19 08:00 97.8 96 20 101/58 (72) 99 06/28/19 08:00 Nasal Cannula 2.0 Nasal Cannula 2.0 06/28/19 07:28 93 21 100 Nasal Cannula 2.0 06/28/19 07:19 96 17 100 Nasal Cannula 2.0 06/28/19 07:19 100 Nasal Cannula 2.0 06/28/19 04:00 Nasal Cannula 2.0 Nasal Cannula 2.0 06/28/19 04:00 96 06/28/19 04:00 97.9 96 22 138/75 (96) 98 06/28/19 02:52 84 20 100 Nasal Cannula 2.0 06/28/19 02:45 70 20 97 Nasal Cannula 2.0 06/28/19 00:00 97.7 99 22 130/83 (99) 98 06/28/19 00:00 Nasal Cannula 2.0 Nasal Cannula 2.0 06/28/19 00:00 99 06/27/19 23:21 86 20 100 Nasal Cannula 2.0 06/27/19 23:10 78 22 100 Nasal Cannula 2.0 06/27/19 21:24 88 20 99 Nasal Cannula 2.0 28 06/27/19 21:14 90 18 97 Nasal Cannula 2.0 28 06/27/19 20:00 97.7 110 24 136/81 (99) 98 06/27/19 20:00 Nasal Cannula 2.0 Nasal Cannula 2.0 06/27/19 20:00 110 06/27/19 18:36 88 20 100 Nasal Cannula 2.0 28 06/27/19 18:25 80 20 98 Nasal Cannula 2.0 28 06/27/19 18:25 98 Nasal Cannula 2.0 28 06/27/19 17:24 83 Intake and Output 06/27/19 06/28/19 19:00 07:00 Intake Total 1380 ml 1505 ml Output Total 1000 ml Balance 1380 ml 505 ml Free Water 120 ml 120 ml IV Total 600 ml 725 ml Tube Feeding 660 ml 660 ml Output Urine Total 1000 ml # Bowel Movements 3 Height (Feet): 5 Height (Inches): 6.00 Weight (Pounds): 124 Objective [place]. Cv RR Skin - multiple decubitus ulcers: Sacral, hip, heels. (see pictures). CV RR Lungs B Ronchi. Abd. SNT. BS + E Muscle wasting. No CCE. Neuro alert, nonverbal, nonfocal. Ervin Mario MD Jun 28, 2019 16:28
[2019-06-28] MEDS ORDERED: DAKIN'S1 APPLI1 TOPIC (16:32)
[2019-06-28] MEDS ORDERED: HIBICLENS118 ML TOPIC (16:32)
--- NOTE | 2019-06-28 17:00 | NUR ---
NURSE NOTES: Followed up with Dr. Gomez regarding what antibiotics patient will bed discharged with going to nursing facility. Per Dr. Gomez patient will be discharged with Vancomycin IV per pharmacy x 7 days, discontinued Colistin inhaler. Also per Dr. 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 Noted.
--- NOTE | 2019-06-28 17:00 | NUR ---
NURSE NOTES: Placed third call to [facility], , no answer, unable to leave message. Made charge nurse aware.
--- NOTE | 2019-06-28 17:20 | NUR ---
NURSE NOTES: Placed fourth call to [facility], , placed on hold for 10 minutes, no answer. Will follow up.
--- NOTE | 2019-06-28 19:00 | NUR ---
NURSE NOTES: Placed tenth call to [facility], , no answer. Endorsed to night nurse accordingly. Charge nurse marie mason. Noted.
--- NOTE | 2019-06-28 19:28 | NUR ---
HAND-OFF: Report given to JOSE Bautista.
--- NOTE | 2019-06-28 19:29 | NUR ---
NURSE NOTES: Received patient from [facility]. Patient is is bed with no signs of acute distress. Patient is obtunded on 2L NC with G-tube feeding held before transport. Anderson is draining, left upper PICC double lumen is intact and patent. Wounds noted and pictures taken. and Bed at its lowest position and call light in reach. Will continue to monitor.
--- NOTE | 2019-06-28 19:30 | NUR ---
NURSE NOTES: Called [facility] to give report and was put on hold. Transportation called at 1915 and stated they will arrive in 45min. Will continue to hold.
[2019-06-28 20:00] VITALS: BP 152/84
[2019-06-28] MEDS: Dyna-Hex 2% Top Sol 2oz TOPIC SCH (20:18)
--- NOTE | 2019-06-28 20:45 | NUR ---
NURSE NOTES: On hold for RN to give report. At 2014 an SAUSAGE M[employer]ER picked up and stated RN will be get report and then was put on hold again. Will hold until needed on the floor.
[2019-06-28] MEDS ORDERED: NS 275ml ONE (22:33)
[2019-06-28] MEDS ORDERED: 1/2 NS 1000ml IV ONE (22:33)
--- NOTE | 2019-06-28 22:46 | NUR ---
INTER-FACILITY TRANSFER: Patient transferred to [facility], per Dr. Mario. Report given to Shana. Patient transferred with no valuables and medications. Belongings verified upon transfer and [facility]. Patient is stable with no acute distress. Family/S.O. notified of transfer.
--- NOTE | 2019-06-30 09:34 | Discharge Summary ---
Discharge Summary Discharge Summary _ DATE OF ADMISSION: 06/22/2019 DATE OF DISCHARGE: 06/28/2019 DISCHARGED BY: Dr. Ervin Mario CONSULTANTS: Dr. Rios Andrade BRIEF HOSPITAL COURSE: Patient is an 83-year-old male, who was going frequently between jail in the emergency room. The patient was referred many times to [facility] for admission due to recurrence of respiratory distress and septicemia. The patient is conserved. CODE STATUS full code. Attempts were made to make patient DNR. Patient was then transferred to the hospital for evaluation of altered level of consciousness and shortness of breath. He has medical history significant for COPD, organic pain syndrome, extreme marasmus, decubitus ulcers and recurrent urosepsis. On evaluation at ED, patient was on a nonrebreather mask saturating 96%. Blood work showed WBC elevated to 16. Hemoglobin was 10, hematocrit 31. Electrolytes were normal. BUN was elevated to 26, creatinine 0.8. Glucose 113. Calcium 8.1. Urinalysis with +5 blood, too many to count urine RBC, 5-10 urine WBC, negative leukocyte esterase, negative nitrite. Chest x-ray showed increased hazy opacity on the left perihilar region which was slightly worse compared to prior exam. Probable linear atelectasis at the right lung base. Septic work-up was initiated. He was started on wide spectrum antibiotics. Vancomycin was added to cover for MRSA because patient had a PICC line. A copious amount of green mucus was suctioned from his lungs. He was then admitted for evaluation of sepsis and respiratory distress. He was admitted to. He was given IV fluid rehydration. Home Insurance Agent, infectious disease specialist and surgeon were consulted. He was continued on supportive care. He was given O2 therapy. He was placed on aspiration precautions. Patient had multiple unhealing wounds present on admission with contractures. He was noted to have full-thickness pressure injury on the upper cleft of the left earlobe. Full-thickness pressure injury to the left ischium. Resolving pressure injury on the right ischium. Full-thickness pressure injury with undermining on the left trochanter. Full-thickness pressure injury on the anterior right tibial. Full-thickness pressure injury on the lateral left foot extending from the left heel to the distal/lateral foot. Full-thickness pressure injury to the distal/plantar aspect of the left foot. Full-thickness pressure injury to the plantar left hallux. He was given wound care. He was placed on APM/KAVON overlay mattress with frequent repositioning and offloading. Blood culture was growing gram-positive cocci, most likely due to infected decubiti, although pneumonia and urosepsis also potential sources. He was given IV vancomycin, Levaquin and cefepime. Blood culture showed enterococcus /coagulase-negative staph. Sputum culture showed growth of Acinetobcter MDR. He was placed on isolation. He was continued on IV vancomycin and was started on inhaled colistin. Old PICC line was then removed. A new PICC line was inserted to the left arm. Echocardiogram done showed EF 50 to 55% with no evidence of vegetations. Leukocytosis resolved. O2 was tapered down to nasal cannula. Patient was eventually discharged back to jail. FINAL DIAGNOSES: Sepsis from line infection, present on admission Enterococcus bacteremia MDR Acinetobacter pneumonia Acute on chronic respiratory failure COPD Multiple decubitus, as stated above, present on admission Multiple contractures Severe protein calorie malnutrition Recurrent urosepsis VRE DISPOSITION: Patient was discharged to a SNF. DISCHARGE MEDICATIONS: Refer to Discharge Medication List. I have been assigned to complete a discharge summary on this account, I was not involved with the patient's management.--LON Hough Jacqueline Robles NP Jun 30, 2019 09:34
== END 2019-06-28 22:34 | DRG 314 ==
LOC: EDBD 23:40 → EMR 23:48 → EDBEDREQ 06-22 00:59 → 2W 06-22 01:00 → EDBEDREQ 06-22 01:24 → 2W 06-25 20:50
PROC: 02HV33Z Insertion of Infusion Device into Superior Vena Cava, Percutaneous Approach (ICD-10-PCS; principal; 2019-06-27)
PROC: B548ZZA Ultrasonography of Superior Vena Cava, Guidance (ICD-10-PCS; principal; 2019-06-27)
DX: T80.211A Bloodstream infection due to central venous catheter, initial encounter (principal); A41.81 Sepsis due to Enterococcus; L89.223 Pressure ulcer of left hip, stage 3; L89.813 Pressure ulcer of head, stage 3; L89.893 Pressure ulcer of other site, stage 3; J69.0 Pneumonitis due to inhalation of food and vomit; J96.20 Acute and chronic respiratory failure, unspecified whether with hypoxia or hypercapnia; R53.2 Functional quadriplegia; R65.20 Severe sepsis without septic shock; J15.8 Pneumonia due to other specified bacteria; E43 Unspecified severe protein-calorie malnutrition; Z68.1 Body mass index [BMI] 19.9 or less, adult; N39.0 Urinary tract infection, site not specified; G30.9 Alzheimer's disease, unspecified; F02.80 Dementia in other diseases classified elsewhere, unspecified severity, without behavioral disturbance, psychotic disturbance, mood disturbance, and anxiety; R13.10 Dysphagia, unspecified; Z93.1 Gastrostomy status; J44.9 Chronic obstructive pulmonary disease, unspecified; N40.0 Benign prostatic hyperplasia without lower urinary tract symptoms; R31.9 Hematuria, unspecified
CPT/HCPCS: 36415; 36569; 71045; 76937; 80048; 80053; 80202; 81003; 82550; 82553; 83605; 83735; 84484; 85007; 85025; 87040; 87070; 87081; 87181; 87205; 93306; 94640; 94664; 96361; 96365; 96367; 99291

== ENCOUNTER 2019-07-12 23:27 | Inpatient (IN) | payer MEDICARE, OTHER ==
[~2019-07-12] VITALS: Ht 167.6 cm; Wt 56.8 kg
[~2019-07-12 23:27] MED LIST changes: +BACTRIM DS TAB1 EAC1 ORAL; +DAKIN'S1 APPLI1 TOPIC; +HIBICLENS118 ML TOPIC; +MEROPENEM-1 GM/50 ML IV; +MEROPENEM1 GM IV
[2019-07-12 23:30] VITALS: BP 137/80
[2019-07-13] VITALS (9 sets, daily range): BP systolic 105–160; BP diastolic 61–93
[2019-07-13 00:15] LABS: APPEARANCE,URINE CLOUDY; BILIRUBIN, URINE NEGATIVE (NEGATIVE); GLUCOSE, URINE (UA) NEGATIVE (NEGATIVE); KETONES,URINE NEGATIVE (NEGATIVE); LEUKOCYTE ESTERASE ,URINE 1+ (NEGATIVE); NITRITE,URINE NEGATIVE (NEGATIVE); PH,URINE 6.5 (4.5-8.0); PROTEIN,URINE 2+ (NEGATIVE); UROBILINOGEN,URINE NORMAL MG/DL (0.0-1.0)
[2019-07-13 00:16] LABS: COLOR,URINE YELLOW
[2019-07-13 00:21] LABS: BASOPHILS % (AUTO) 0.8 % (0.0-2.0); EOSINOPHILS % (AUTO) 0.1 % (0.0-3.0); HEMATOCRIT 33.4 % (42.0-52.0); HEMOGLOBIN 10.4 G/DL (14.2-18.0); LYMPHOCYTES % (AUTO) 9.8 % (20.0-45.0); MEAN CORPUSCULAR VOLUME 77 FL (80-99); MONOCYTES % (AUTO) 5.4 % (1.0-10.0); NEUTROPHILS % (AUTO) 83.9 % (45.0-75.0); PLATELET COUNT 389 K/UL (150-450); RED BLOOD COUNT 4.36 M/UL (4.70-6.10); RED CELL DISTRIBUTION WIDTH 20.5 % (11.6-14.8); WHITE BLOOD COUNT 13.7 K/UL (4.8-10.8)
[2019-07-13 00:29] LABS: ANION GAP 7 mmol/L (5-15); BLOOD UREA NITROGEN 23 mg/dL (7-18); CALCIUM 8.7 MG/DL (8.5-10.1); CARBON DIOXIDE 29 MMOL/L (21-32); CHLORIDE 105 MMOL/L (98-107); CREATININE 0.7 MG/DL (0.55-1.30); POTASSIUM 4.3 MMOL/L (3.5-5.1); SODIUM 141 MMOL/L (136-145)
--- NOTE | 2019-07-13 00:41 | Diagnostic Imaging Report ---
EXAM: XR Chest, 1 View CLINICAL HISTORY: SOB TECHNIQUE: Frontal view of the chest. COMPARISON: June 24, 2017 chest x-ray FINDINGS: Lungs: Patchy airspace opacity is present in the left lower lung. Pleural space: Unremarkable. No pneumothorax. Heart: Unremarkable. No cardiomegaly. Mediastinum: Unremarkable. Bones/joints: Unremarkable. IMPRESSION: Patchy airspace opacity is present in the left lower lung. This is suspicious for left lower lobe pneumonia.
--- NOTE | 2019-07-13 00:41 | Emergency Room Report ---
History of Present Illness General Chief Complaint: Abnormal Labs Source: Medical Record, EMS Present Illness HPI This is an unfortunate 83-year-old male who reside in a senior living. He has a history of sepsis, pneumonia, hypertension, diabetes who presents with chief complaint of abnormal labs and abnormal chest x-ray. Unable to get any history from this patient. Unfortunately there is no x-ray report or any significant labs sent with the patient. When I called the senior living, nursing staff does not know because of previous nurse has left already. Nurses that he appear to be congested. There is no reported fever chills but no reported nausea or vomiting. Unable to get any other history from this patient. Allergies: Coded Allergies: No Known Allergies (Unverified , 02/25/19) Patient History Past Medical History: see triage record, old chart reviewed, DM, HTN, COPD, pneumonia Past Surgical History: other Pertinent Family History: none Social History: Denies: smoking Immunizations: other Reviewed Nursing Documentation: PMH: Agreed; PSxH: Agreed Nursing Documentation-PMH Past Medical History: No History, Except For Hx Hypertension: Yes Hx Asthma: No - hx resp failure and asp pneumonia Hx COPD: Yes - pneumonia Hx Diabetes: Yes Hx Cancer: No Hx Dementia: Yes Hx Alzheimer's Disease: Yes Hx Memory Loss: Yes Hx Speech Problem: Yes Hx Dysphasia: Yes Hx Weakness: Yes Review of Systems Respiratory: Reports: cough, shortness of breath All Other Systems: limited - Patient is nonverbal Physical Exam Vital Signs Date Time Temp Pulse Resp B/P (MAP) Pulse Ox O2 Delivery O2 Flow Rate FiO2 07/12/19 23:27 113 18 122/71 (88) 07/12/19 23:30 98.4 100 Room Air Vitals with tachycardia Sp02 EP Interpretation: reviewed, normal General Appearance: cachetic, lethargic Head: normocephalic, atraumatic Eyes: bilateral eye PERRL, bilateral eye EOMI ENT: hearing grossly normal, dry mucus membranes Neck: full range of motion, supple, no meningismus Respiratory: chest non-tender, rhonchi Cardiovascular #1: regular rate, rhythm, no murmur, tachycardia Gastrointestinal: normal bowel sounds, non tender, no mass, no organomegaly, no bruit, non-distended, other - Tube intact Musculoskeletal: other - contracted. ulcers on left foot Procedures Critical Care Time Critical Care Time Critical care is mandated in this patient who presented with sepsis from pneumonia. Patient require my urgent intervention to attenuate the risks of metabolic collapse which may lead to cardiovascular collapse and . Critical care time is 35 minutes excluding any reportable procedure. Critical care time included evaluation, multiple reevaluation, looking at old charts, interpreting laboratory and diagnostic data, discussing case with patient and family and consultants, and charting. Medical Decision Making Diagnostic Impression: Primary Impression: Healthcare associated bacterial pneumonia Additional Impressions: Encephalopathy acute Sepsis Qualified Codes: A41.9 - Sepsis, unspecified organism Ulcer of lower extremity excluding decubitus ulcer ER Course This patient presents with pneumonia. Chest x-ray showed patchy left lower lobe infiltrate. Patient given wide spectrum antibiotics. On last admission, sputum culture grew out Citrobacter which is multidrug-resistant. He was treated with inhaled colistin and IV vancomycin. He still getting vancomycin at the senior living. Condition is serious and prognosis very poor. Patient will be admitted for IV antibiotics. I contacted Dr. Parks for admission. EKG Diagnostic Results Rate: tachycardiac Rhythm: NSR ST Segments: no acute changes Rhythm Strip Diag. Results EP Interpretation: yes Rate: 100 Rhythm: NSR, no PVC's, no ectopy Chest X-Ray Diagnostic Results Chest X-Ray Diagnostic Results : Chest X-Ray Ordered: Yes # of Views/Limited/Complete: 1 View Indication: Shortness of Breath EP Interpretation: Yes Interpretation: no effusion, no pneumothorax, other - Left lower lobe infiltrate Impression: Other - LLL infiltrate Electronically Signed by: Viet Hernandez MD Last Vital Signs Date Time Temp Pulse Resp B/P (MAP) Pulse Ox O2 Delivery O2 Flow Rate FiO2 07/12/19 23:30 98.4 113 18 137/80 100 Room Air Status: improved Disposition: ADMITTED INPATIENT Condition: Serious Referrals: Ervin Mario MD (PCP) Viet Hernandez MD Jul 13, 2019 00:41
[2019-07-13 00:43] LABS: ALANINE AMINOTRANSFERASE 22 U/L (12-78); ALBUMIN/GLOBULIN RATIO 0.4 (1.0-2.7); ALKALINE PHOSPHATASE 98 U/L (46-116); ASPARTATE AMINO TRANSFERASE 20 U/L (15-37); BILIRUBIN,TOTAL 0.5 MG/DL (0.2-1.0); CKMB 2.2 NG/ML (0.0-3.6); CREATINE KINASE 53 U/L (26-308)
[2019-07-13] MEDS ORDERED: Cefepime HCl 1 GM in D5W 55 ML IVPB ONE (00:45)
[2019-07-13] MEDS ORDERED: Ipratropium 0.02% Inh Soln 2.5ml UD HHN PRN (04:15)
[2019-07-13] MEDS: NovoLOG Insulin Flexpen SUBQ SCH ×3 (06:30→17:19)
[2019-07-13] MEDS: Metoprolol 25mg tab ORAL SCH ×2 (08:08→21:26)
[2019-07-13] MEDS: Ascorbic Acid 500mg tab GT SCH ×2 (08:08→17:19)
[2019-07-13] MEDS: Zinc Sulfate 220mg cap ORAL SCH (08:08)
[2019-07-13] MEDS: Heparin 5000 units/ml inj SUBQ SCH ×2 (08:08→21:55)
[2019-07-13 08:38] LABS: BASOPHILS % (AUTO) 0.5 % (0.0-2.0); HEMATOCRIT 30.2 % (42.0-52.0); HEMOGLOBIN 9.2 G/DL (14.2-18.0); LYMPHOCYTES % (AUTO) 9.8 % (20.0-45.0); MEAN CORPUSCULAR VOLUME 77 FL (80-99); MONOCYTES % (AUTO) 4.7 % (1.0-10.0); NEUTROPHILS % (AUTO) 84.9 % (45.0-75.0); PLATELET COUNT 336 K/UL (150-450); RED BLOOD COUNT 3.92 M/UL (4.70-6.10); RED CELL DISTRIBUTION WIDTH 20.8 % (11.6-14.8); WHITE BLOOD COUNT 11.5 K/UL (4.8-10.8)
[2019-07-13 08:54] LABS: ANION GAP 7 mmol/L (5-15); BLOOD UREA NITROGEN 21 mg/dL (7-18); CALCIUM 8.5 MG/DL (8.5-10.1); CARBON DIOXIDE 26 MMOL/L (21-32); CHLORIDE 109 MMOL/L (98-107); CREATININE 0.5 MG/DL (0.55-1.30); POTASSIUM 4.1 MMOL/L (3.5-5.1); SODIUM 142 MMOL/L (136-145)
--- NOTE | 2019-07-13 10:22 | History & Physical ---
History of Present Illness General Reason for Hospitalization: Abnormal Labs Present Illness Allergies: Coded Allergies: No Known Allergies (Unverified , 02/25/19) Medication History Scheduled Ascorbic Acid* (Ascorbic Acid*), 500 MG GT DAILY Chlorhexidine Gluconate* (Hibiclens*), 1 APPLIC TOPIC DAILY@2000 Sodium Hypochlorite (Dakin's), 1 APPLIC TOPIC DAILY Discontinued Medications Acetaminophen* (Tylenol Extra Strength*), 500 MG ORAL Q6H PRN for Mild Pain/ Temp > 100.5, (Reported) Discontinued Reason: Pt stopped taking med Docusate Sodium (Docusate Sodium), 100 MG GT DAILY, (Reported) Discontinued Reason: Pt stopped taking med Heparin Sod (Porcine) (Heparin Sodium*), 5,000 UNITS SUBQ EVERY 12 HOURS Discontinued Reason: Pt stopped taking med Ipratropium/Albuterol Sulfate (DuoNeb 0.5-3(2.5)mg/3ml), 3 ML HHN Q4H PRN Discontinued Reason: Pt stopped taking med Meropenem (Meropenem), 1 GM IV EVERY 8 HOURS, (Reported) Discontinued Reason: Pt stopped taking med Metoprolol Tartrate* (Metoprolol Tartrate*), 25 MG GT EVERY 12 HOURS, (Reported) Discontinued Reason: Pt stopped taking med Pantoprazole Sodium (Protonix), 40 MG GT ACBREAKFAST, (Reported) Discontinued Reason: Pt stopped taking med Trimethoprim/Sulfamethoxazole 160/800* (Bactrim Ds Tablet*), 1 TAB ORAL TWICE A DAY, (Reported) Discontinued Reason: Pt stopped taking med Patient History Healthcare decision maker Resuscitation status Do Not Resuscitate Advanced Directive on File No Review of Systems Review of Symptoms The patient is unresponsive/nonverbal Physical Exam Physical Exam General appearance: awake, eyes are open, unresponsive Head: Normocephalic, without obvious abnormality, atraumatic Eyes: conjunctivae/corneas clear. PERRL, EOM's intact. Fundi benign Throat: Lips, mucosa, and tongue dry. Neck: supple, symmetrical, trachea midline, no adenopathy, thyroid: not enlarged, symmetric, no tenderness/mass/nodules, no carotid bruit and no JVD Lungs: Bilateral rhonchi Heart: regular rate and rhythm, no murmur Abdomen: soft, non-tender, scaphoid, G-tube in place Extremities: contracted, muscle wasting Pulses: 1+ weak pedal pulses bilaterally Skin: Skin color, texture normal, thin skin (no skin tears noted), small L ulceration on the foot Neurologic: A&Ox0 Last 24 Hour Vital Signs Date Time Temp Pulse Resp B/P (MAP) Pulse Ox O2 Delivery O2 Flow Rate FiO2 07/13/19 09:00 Room Air 07/13/19 08:51 84 20 97 Room Air 21 07/13/19 08:08 107 130/71 07/13/19 07:56 99.1 107 20 130/71 (90) 98 07/13/19 04:00 99.6 107 20 105/61 (76) 98 07/13/19 04:00 107 07/13/19 02:53 Room Air 07/13/19 02:53 Room Air 07/13/19 02:03 115 07/13/19 02:00 97.9 123 30 137/82 99 Room Air 07/13/19 02:00 98.4 116 24 135/87 (103) 96 07/12/19 23:30 98.4 113 18 137/80 100 Room Air 07/12/19 23:27 113 18 122/71 (88) Intake and Output 07/12/19 07/13/19 19:00 07:00 Intake Total 2155 ml Output Total 350 ml Balance 1805 ml Intake Oral 0 ml IV Total 2155 ml Output Urine Total 350 ml # Bowel Movements 3 Laboratory Tests Test 07/13/19 00:00 07/13/19 00:10 07/13/19 06:43 White Blood Count 13.7 K/UL (4.8-10.8) H 11.5 K/UL (4.8-10.8) H Red Blood Count 4.36 M/UL (4.70-6.10) L 3.92 M/UL (4.70-6.10) L Hemoglobin 10.4 G/DL (14.2-18.0) L 9.2 G/DL (14.2-18.0) L Hematocrit 33.4 % (42.0-52.0) L 30.2 % (42.0-52.0) L Mean Corpuscular Volume 77 FL (80-99) L 77 FL (80-99) L Mean Corpuscular Hemoglobin 23.8 PG (27.0-31.0) L 23.5 PG (27.0-31.0) L Mean Corpuscular Hemoglobin Concent 31.0 G/DL (32.0-36.0) L 30.5 G/DL (32.0-36.0) L Red Cell Distribution Width 20.5 % (11.6-14.8) H 20.8 % (11.6-14.8) H Platelet Count 389 K/UL (150-450) 336 K/UL (150-450) Mean Platelet Volume 6.0 FL (6.5-10.1) L 6.0 FL (6.5-10.1) L Neutrophils (%) (Auto) 83.9 % (45.0-75.0) H 84.9 % (45.0-75.0) H Lymphocytes (%) (Auto) 9.8 % (20.0-45.0) L 9.8 % (20.0-45.0) L Monocytes (%) (Auto) 5.4 % (1.0-10.0) 4.7 % (1.0-10.0) Eosinophils (%) (Auto) 0.1 % (0.0-3.0) 0.0 % (0.0-3.0) Basophils (%) (Auto) 0.8 % (0.0-2.0) 0.5 % (0.0-2.0) Sodium Level 141 MMOL/L (136-145) 142 MMOL/L (136-145) Potassium Level 4.3 MMOL/L (3.5-5.1) 4.1 MMOL/L (3.5-5.1) Chloride Level 105 MMOL/L (98-107) 109 MMOL/L (98-107) H Carbon Dioxide Level 29 MMOL/L (21-32) 26 MMOL/L (21-32) Anion Gap 7 mmol/L (5-15) 7 mmol/L (5-15) Blood Urea Nitrogen 23 mg/dL (7-18) H 21 mg/dL (7-18) H Creatinine 0.7 MG/DL (0.55-1.30) 0.5 MG/DL (0.55-1.30) L Estimat Glomerular Filtration Rate mL/min (>60) mL/min (>60) Glucose Level 93 MG/DL (74-106) 91 MG/DL (74-106) Lactic Acid Level 1.90 mmol/L (0.4-2.0) Calcium Level 8.7 MG/DL (8.5-10.1) 8.5 MG/DL (8.5-10.1) Total Bilirubin 0.5 MG/DL (0.2-1.0) Aspartate Amino Transf (AST/SGOT) 20 U/L (15-37) Alanine Aminotransferase (ALT/SGPT) 22 U/L (12-78) Alkaline Phosphatase 98 U/L (46-116) Total Creatine Kinase 53 U/L (26-308) Creatine Kinase MB 2.2 NG/ML (0.0-3.6) Creatine Kinase MB Relative Index 4.1 Troponin I 0.003 ng/mL (0.000-0.056) Total Protein 7.6 G/DL (6.4-8.2) Albumin 2.0 G/DL (3.4-5.0) L Globulin 5.6 g/dL Albumin/Globulin Ratio 0.4 (1.0-2.7) L Urine Color Yellow Urine Appearance Cloudy Urine pH 6.5 (4.5-8.0) Urine Specific [place] 1.015 (1.005-1.035) Urine Protein 2+ (NEGATIVE) H Urine Glucose (UA) Negative (NEGATIVE) Urine Ketones Negative (NEGATIVE) Urine Blood 2+ (NEGATIVE) H Urine Nitrite Negative (NEGATIVE) Urine Bilirubin Negative (NEGATIVE) Urine Urobilinogen Normal MG/DL (0.0-1.0) Urine Leukocyte Esterase 1+ (NEGATIVE) H Urine RBC 2-4 /HPF (0 - 0) H Urine WBC 2-4 /HPF (0 - 0) Urine Squamous Epithelial Cells Occasional /LPF Urine Calcium Oxalate Crystals Many /LPF (NONE) Urine Bacteria Occasional /HPF (NONE) Urine Fine Granular Casts 0-2 /LPF (NONE) H Height (Feet): 5 Height (Inches): 6.00 Weight (Pounds): 80 Medications Current Medications Medications (Trade) Dose Ordered Sig/Mckenzie Route PRN Reason Start Time Stop Time Status Last Admin Dose Admin Ascorbic Acid (Vitamin C) 250 mg TWICE A DAY GT 07/13/19 09:00 08/12/19 08:59 07/13/19 08:08 Cefepime HCl 1 gm/ Dextrose 55 ml @ 110 mls/hr Q24H IVPB 07/14/19 02:00 07/21/19 01:59 Chlorhexidine Gluconate (Liz-Hex 2%) 1 applic DAILY@2000 TOPIC 07/13/19 20:00 08/12/19 19:59 Dextrose (Dextrose 50%) 25 ml Q30M PRN IV Hypoglycemia 07/13/19 04:00 08/12/19 03:59 Dextrose (Dextrose 50%) 50 ml Q30M PRN IV Hypoglycemia 07/13/19 04:00 08/12/19 03:59 Heparin Sodium (Porcine) (Heparin 5000 units/ml) 5,000 units EVERY 12 HOURS SUBQ 07/13/19 09:00 08/12/19 08:59 07/13/19 08:08 Insulin Aspart (NovoLOG) BEFORE MEALS AND HS SUBQ 07/13/19 06:30 08/12/19 06:29 Ipratropium [place] (Atrovent) 500 mcg Q4H PRN HHN Shortness of Breath 07/13/19 04:15 07/18/19 04:14 Lansoprazole (Prevacid) 30 mg ACBREAKFAST GT 07/14/19 06:30 08/12/19 06:29 Levofloxacin 50 ml @ 50 mls/hr Q24H IVPB 07/14/19 01:00 07/21/19 00:59 Metoprolol Tartrate (Lopressor) 25 mg Q12HR ORAL 07/13/19 09:00 08/12/19 08:59 07/13/19 08:08 Zinc Sulfate (Zinc Sulfate) 220 mg DAILY ORAL 07/13/19 09:00 08/12/19 08:59 07/13/19 08:08 Assessment/Plan Status: stable Status Narrative This is an 83 year old male from [facility] who was seen by me on 07/13 late afternoon during my rounds. The patient had intermittent low grade fevers. He had bilateral rhonchi/no cough. He is bedridden/pneumonia suspected then. Ordered labs and chest x-ray. Assessment/Plan: Continue Levofloxacin and Cefepime through duration of treatment. CBC, BMP tomorrow morning. MIPS Hospital declaration INPATIENT level of care is warranted for this patient because patient is a 89 year old with who presents with suspicion of . I have a high level of concern because . Patient is at high risk for . Plan of care/treatment include . Patient care is expected to be greater than 2 midnights. OBSERVATION level of care is warranted for this patient. Patient is a 89 year old with who presents with . Patient will be admitted for 1 midnight, but if additional night(s) is/are necessary, patient will be converted to inpatient status for the entire hospitalization Disposition: Once the patient is stable to leave the hospital, I anticipate the patient will likely be discharged to the following environment: Estimated discharge date: I spent 70 minutes on this patient's case, and minutes was dedicated to counseling and/or care coordination. MIPS (Merit-based Incentive Payment System) Applicable CPT: 39076, 64080 CHECK ALL THAT ARE MET: Measure #5 (CHF): All ages. Prescribe MOSES/ARB upon discharge for patients with left ventricular systolic dysfunction. If not, the reason is clearly documented in the medical chart. Measure #8 (CHF): All ages. Prescribe a beta abel upon discharge for patients with left ventricular systolic dysfunction. If not, the reason is clearly documented in the medical chart. Measure #47 Advance care plan or surrogate decision maker documented in the medical record. Measure #130 The provider has documented, updated, or reviewed the patients current medication list and has documented it in the patients note. Measure #374 (All): Send report to referring provider. Measure #407(Sepsis due to MSSA bacteremia): Age 18+ Patient treated with a beta-lactam antibiotic (Nafcillin, Oxacillin or Cefazolin) as definitive therapy. MEDICAL COMPLEXITY High complexity medical decision making (need 2/3 categories) Problem - need 4 points Acute/new problem with new plan for workup (4 points, 1 max) Acute/new problem without additional workup (3 points, 1 max) Unstable chronic problem actively being managed (2 point each, 2 max) Stable chronic problem actively being managed (1 point each, 2 max) Self-limited/transient process (constipation, muscle ache, etc) (1 point each , 2 max) Data - need 4 points Reviewed labs/imaging studies (1 points, 2 max) Independent review of imaging (EKG, xrays, etc) (2 points, 2 max) Discussed case with consult/other MD/RN (2 points, 2 max) High Risk - qualify if have one of the following: Severe exacerbation of acute problem, acute mental status change, IV narcotics , monitoring drug levels (vancomycin, INR, tacrolimus etc) Shira Bain N.P. Jul 13, 2019 10:22
[2019-07-13] MEDS ORDERED: Sterile Water Irrig 1000ml IRRIG ONE (17:05)
[2019-07-13] MEDS: Dyna-Hex 2% Top Sol 2oz TOPIC SCH (21:25)
[2019-07-14] MEDS: NovoLOG Insulin Flexpen SUBQ SCH ×4 (00:16→17:48)
[2019-07-14] MEDS: Cefepime HCl 1 GM in D5W 55 ML IVPB SCH (02:50)
[2019-07-14 04:00] VITALS: BP 134/80
[2019-07-14 08:00] VITALS: BP 129/63
[2019-07-14 08:43] LABS: BASOPHILS % (AUTO) 0.5 % (0.0-2.0); EOSINOPHILS % (AUTO) 0.2 % (0.0-3.0); HEMATOCRIT 28.7 % (42.0-52.0); HEMOGLOBIN 8.7 G/DL (14.2-18.0); LYMPHOCYTES % (AUTO) 17.3 % (20.0-45.0); MEAN CORPUSCULAR VOLUME 77 FL (80-99); MONOCYTES % (AUTO) 9.3 % (1.0-10.0); NEUTROPHILS % (AUTO) 72.6 % (45.0-75.0); PLATELET COUNT 368 K/UL (150-450); RED BLOOD COUNT 3.71 M/UL (4.70-6.10); RED CELL DISTRIBUTION WIDTH 20.7 % (11.6-14.8); WHITE BLOOD COUNT 7.3 K/UL (4.8-10.8)
[2019-07-14 09:06] LABS: ANION GAP 6 mmol/L (5-15); BLOOD UREA NITROGEN 17 mg/dL (7-18); CALCIUM 8.2 MG/DL (8.5-10.1); CARBON DIOXIDE 26 MMOL/L (21-32); CHLORIDE 103 MMOL/L (98-107); CREATININE 0.5 MG/DL (0.55-1.30); POTASSIUM 3.8 MMOL/L (3.5-5.1); SODIUM 135 MMOL/L (136-145)
[2019-07-14] MEDS ORDERED: Acetaminophen 650mg/20.3ml GT PRN ×2 (10:15→20:00)
[2019-07-14] MEDS: Metoprolol 25mg tab ORAL SCH ×2 (10:24→20:30)
[2019-07-14] MEDS: Zinc Sulfate 220mg cap ORAL SCH (10:24)
[2019-07-14] MEDS: Ascorbic Acid 500mg tab GT SCH ×2 (10:24→17:47)
[2019-07-14] MEDS: Heparin 5000 units/ml inj SUBQ SCH ×2 (10:33→20:34)
[2019-07-14 12:00] VITALS: BP 127/69
[2019-07-14 12:40] LABS: ALANINE AMINOTRANSFERASE 18 U/L (12-78); ALBUMIN 1.7 G/DL (3.4-5.0); ALBUMIN/GLOBULIN RATIO 0.3 (1.0-2.7); ALKALINE PHOSPHATASE 81 U/L (46-116); ANION GAP 6 mmol/L (5-15); ASPARTATE AMINO TRANSFERASE 17 U/L (15-37); BILIRUBIN,TOTAL 0.3 MG/DL (0.2-1.0); BLOOD UREA NITROGEN 18 mg/dL (7-18); CALCIUM 8.3 MG/DL (8.5-10.1); CARBON DIOXIDE 26 MMOL/L (21-32); CHLORIDE 107 MMOL/L (98-107); CREATININE 0.5 MG/DL (0.55-1.30); POTASSIUM 3.9 MMOL/L (3.5-5.1); SODIUM 139 MMOL/L (136-145)
--- NOTE | 2019-07-14 13:20 | Nephrology Progress Note ---
Assessment/Plan Assessment Pt dx: pneumonia Pt hx of sepsis, pneumonia, hypertension, and diabetes . Plan Continue Cefepime. D/C Levofloxacin. Sputum culture. Subjective ROS Limited/Unobtainable: Yes Constitutional: Reports: weakness HEENT: Reports: no symptoms Objective Objective Last 24 Hour Vital Signs Date Time Temp Pulse Resp B/P (MAP) Pulse Ox O2 Delivery O2 Flow Rate FiO2 07/14/19 10:24 99 129/63 07/14/19 09:00 Room Air 07/14/19 08:00 99.0 99 20 129/63 (85) 99 07/14/19 08:00 82 07/14/19 06:33 72 20 97 Nasal Cannula 2.0 28 07/14/19 04:00 98.7 98 22 134/80 (98) 92 07/14/19 04:00 96 07/14/19 00:00 91 07/13/19 23:56 97.6 97 22 138/81 (100) 99 07/13/19 21:37 126 24 98 Nasal Cannula 2.0 28 07/13/19 21:30 102 122/76 (91) 07/13/19 21:26 128 160/93 07/13/19 21:15 160/93 (115) 07/13/19 21:00 Room Air 07/13/19 20:00 100.0 121 20 127/87 (100) 94 07/13/19 20:00 122 07/13/19 16:00 96.5 79 20 136/76 (96) 96 07/13/19 16:00 103 Intake and Output 07/13/19 07/14/19 19:00 07:00 Intake Total 680 ml 1020 ml Output Total 1200 ml Balance -520 ml 1020 ml Free Water 270 ml 360 ml Tube Feeding 410 ml 660 ml Output Urine Total 1200 ml # Bowel Movements 1 Laboratory Tests 07/14/19 07:43: White Blood Count 7.3, Red Blood Count 3.71L, Hemoglobin 8.7L, Hematocrit 28.7L , Mean Corpuscular Volume 77L, Mean Corpuscular Hemoglobin 23.5L, Mean Corpuscular Hemoglobin Concent 30.3L, Red Cell Distribution Width 20.7H, Platelet Count 368, Mean Platelet Volume 5.8L, Neutrophils (%) (Auto) 72.6, Lymphocytes (%) (Auto) 17.3L, Monocytes (%) (Auto) 9.3, Eosinophils (%) (Auto) 0.2, Basophils (%) (Auto) 0.5, Sodium Level 135L, Potassium Level 3.8, Chloride Level 103, Carbon Dioxide Level 26, Anion Gap 6, Blood Urea Nitrogen 17, Creatinine 0.5L, Estimat Glomerular Filtration Rate , Glucose Level 118H, Calcium Level 8.2L 07/14/19 11:45: Sodium Level 139, Potassium Level 3.9, Chloride Level 107, Carbon Dioxide Level 26, Anion Gap 6, Blood Urea Nitrogen 18, Creatinine 0.5L, Estimat Glomerular Filtration Rate , Glucose Level 90, Calcium Level 8.3L, Total Bilirubin 0.3, Aspartate Amino Transf (AST/SGOT) 17, Alanine Aminotransferase (ALT/SGPT) 18, Alkaline Phosphatase 81, Total Protein 6.6, Albumin 1.7L, Globulin 4.9, Albumin/ Globulin Ratio 0.3L Height (Feet): 5 Height (Inches): 6.00 Weight (Pounds): 80 General Appearance: no apparent distress EENT: PERRL/EOMI Neck: non-tender, supple Cardiovascular: normal peripheral pulses, regular rhythm Respiratory/Chest: rhonchi - bilaterally Abdomen: decreased bowel sounds Extremities: non-tender Shira Bain N.P. Jul 14, 2019 13:19
[2019-07-14 15:46] LABS: ALANINE AMINOTRANSFERASE 17 U/L (12-78); ALBUMIN 1.7 G/DL (3.4-5.0); ALKALINE PHOSPHATASE 83 U/L (46-116); ASPARTATE AMINO TRANSFERASE 19 U/L (15-37); BILIRUBIN,DIRECT < 0.1 MG/DL (0.0-0.3); BILIRUBIN,TOTAL 0.2 MG/DL (0.2-1.0)
[2019-07-14 16:00] VITALS: BP 124/65
[2019-07-14] MEDS ORDERED: NS 275ml ONE (16:21)
[2019-07-14] MEDS ORDERED: Sterile Water Irrig 1000ml IRRIG ONE (16:21)
[2019-07-14] MEDS ORDERED: Tubing IV Secondary IV ONE (16:21)
[2019-07-14 20:00] VITALS: BP 124/65
[2019-07-14] MEDS: Dyna-Hex 2% Top Sol 2oz TOPIC SCH (20:28)
[2019-07-15] VITALS: BP 132/64
[2019-07-15] MEDS: Cefepime HCl 1 GM in D5W 55 ML IVPB SCH (02:05)
[2019-07-15 04:00] VITALS: BP 131/76
[2019-07-15] MEDS: NovoLOG Insulin Flexpen SUBQ SCH ×4 (06:00→18:05)
[2019-07-15 07:28] LABS: BASOPHILS % (AUTO) 0.9 % (0.0-2.0); HEMATOCRIT 28.4 % (42.0-52.0); HEMOGLOBIN 8.6 G/DL (14.2-18.0); MEAN CORPUSCULAR VOLUME 77 FL (80-99); MONOCYTES % (AUTO) 11.8 % (1.0-10.0); NEUTROPHILS % (AUTO) 64.4 % (45.0-75.0); PLATELET COUNT 327 K/UL (150-450); RED CELL DISTRIBUTION WIDTH 20.3 % (11.6-14.8); WHITE BLOOD COUNT 5.1 K/UL (4.8-10.8)
[2019-07-15 07:30] LABS: ALANINE AMINOTRANSFERASE 14 U/L (12-78); ALBUMIN 1.6 G/DL (3.4-5.0); ALBUMIN/GLOBULIN RATIO 0.3 (1.0-2.7); ALKALINE PHOSPHATASE 79 U/L (46-116); ANION GAP 6 mmol/L (5-15); ASPARTATE AMINO TRANSFERASE 16 U/L (15-37); BILIRUBIN,TOTAL 0.2 MG/DL (0.2-1.0); BLOOD UREA NITROGEN 14 mg/dL (7-18); CALCIUM 8.1 MG/DL (8.5-10.1); CARBON DIOXIDE 26 MMOL/L (21-32); CHLORIDE 107 MMOL/L (98-107); CREATININE 0.4 MG/DL (0.55-1.30); POTASSIUM 4.1 MMOL/L (3.5-5.1); SODIUM 139 MMOL/L (136-145)
[2019-07-15 08:00] VITALS: BP 141/72
[2019-07-15] MEDS: Metoprolol 25mg tab ORAL SCH (09:05)
[2019-07-15] MEDS: Zinc Sulfate 220mg cap ORAL SCH (09:05)
[2019-07-15] MEDS: Heparin 5000 units/ml inj SUBQ SCH ×2 (09:06→21:41)
[2019-07-15] MEDS: Ascorbic Acid 500mg tab GT SCH ×2 (09:06→18:03)
--- NOTE | 2019-07-15 10:49 | Consultation ---
History of Present Illness General Date patient seen: Jul 15, 2019 Chief Complaint: Abnormal Labs Present Illness HPI This is a 83-year-old male well-known to me from prior hospital admissions and care. Patient presents from half-way for abnormal labs and chest x-ray and presumed pneumonia. Patient currently admitted on IV antibiotics and under medical care and management. Patient with multiple medical comorbidities. Patient with known history of multiple decubitus ulcers requiring extensive care. Surgery called to evaluate and assist with care. Patient seen, patient evaluated, chart reviewed. Patient unable to provide history given medical condition. Allergies: Coded Allergies: No Known Allergies (Unverified , 02/25/19) Medication History Scheduled Ascorbic Acid* (Ascorbic Acid*), 500 MG GT DAILY Chlorhexidine Gluconate* (Hibiclens*), 1 APPLIC TOPIC DAILY@2000 Sodium Hypochlorite (Dakin's), 1 APPLIC TOPIC DAILY Discontinued Medications Acetaminophen* (Tylenol Extra Strength*), 500 MG ORAL Q6H PRN for Mild Pain/ Temp > 100.5, (Reported) Discontinued Reason: Pt stopped taking med Docusate Sodium (Docusate Sodium), 100 MG GT DAILY, (Reported) Discontinued Reason: Pt stopped taking med Heparin Sod (Porcine) (Heparin Sodium*), 5,000 UNITS SUBQ EVERY 12 HOURS Discontinued Reason: Pt stopped taking med Ipratropium/Albuterol Sulfate (DuoNeb 0.5-3(2.5)mg/3ml), 3 ML HHN Q4H PRN Discontinued Reason: Pt stopped taking med Meropenem (Meropenem), 1 GM IV EVERY 8 HOURS, (Reported) Discontinued Reason: Pt stopped taking med Metoprolol Tartrate* (Metoprolol Tartrate*), 25 MG GT EVERY 12 HOURS, (Reported) Discontinued Reason: Pt stopped taking med Pantoprazole Sodium (Protonix), 40 MG GT ACBREAKFAST, (Reported) Discontinued Reason: Pt stopped taking med Trimethoprim/Sulfamethoxazole 160/800* (Bactrim Ds Tablet*), 1 TAB ORAL TWICE A DAY, (Reported) Discontinued Reason: Pt stopped taking med Patient History Limited by: medical condition History Provided By: Medical Record, PMD Healthcare decision maker Resuscitation status Do Not Resuscitate Advanced Directive on File No Past Medical/Surgical History Past Medical/Surgical History: (1) Anemia (2) Sinus tachycardia (3) Hypokalemia (4) Hypokalemia (5) Alzheimer disease (6) Dysphagia (7) Pyelonephritis (8) Gastroparesis (9) Severe sepsis (10) Encounter for PEG (percutaneous endoscopic gastrostomy) (11) Malfunction of gastrostomy tube (12) Proteus septicemia (13) Decubitus ulcer of trochanteric region of left hip (14) Encephalopathy acute (15) Healthcare associated bacterial pneumonia (16) Sepsis (17) Pneumonia (18) Ulcer of lower extremity excluding decubitus ulcer Review of Systems ROS Narrative Unable to obtain given patient's medical condition Physical Exam General Appearance: no apparent distress Lines, tubes and drains: peripheral HEENT: mucous membranes moist Neck: normal inspection Respiratory/Chest: other Cardiovascular/Chest: regular rhythm Abdomen: soft, feeding tube, other Extremities: other Skin Exam: warm/dry Neurologic: unresponsiveness Last 24 Hour Vital Signs Date Time Temp Pulse Resp B/P (MAP) Pulse Ox O2 Delivery O2 Flow Rate FiO2 07/15/19 09:05 79 141/72 07/15/19 08:00 96.9 79 20 141/72 (95) 100 07/15/19 04:00 68 07/15/19 04:00 97.5 81 19 131/76 (94) 96 07/15/19 00:00 74 07/15/19 00:00 97.3 71 18 132/64 (86) 98 07/14/19 21:00 Room Air 07/14/19 20:30 85 124/65 07/14/19 20:00 67 07/14/19 20:00 97.5 85 17 124/65 (84) 99 07/14/19 19:40 84 20 98 Nasal Cannula 2.0 28 07/14/19 16:00 98.3 85 20 124/65 (84) 98 07/14/19 16:00 87 07/14/19 12:00 73 07/14/19 12:00 98.1 81 20 127/69 (88) 99 Intake and Output 07/14/19 07/15/19 19:00 07:00 Intake Total 1340 ml 900 ml Output Total 350 ml 300 ml Balance 990 ml 600 ml Free Water 360 ml 240 ml IV Total 500 ml Tube Feeding 480 ml 660 ml Output Urine Total 350 ml 300 ml Laboratory Tests Test 07/14/19 11:45 07/15/19 06:11 Sodium Level 139 MMOL/L (136-145) 139 MMOL/L (136-145) Potassium Level 3.9 MMOL/L (3.5-5.1) 4.1 MMOL/L (3.5-5.1) Chloride Level 107 MMOL/L (98-107) 107 MMOL/L (98-107) Carbon Dioxide Level 26 MMOL/L (21-32) 26 MMOL/L (21-32) Anion Gap 6 mmol/L (5-15) 6 mmol/L (5-15) Blood Urea Nitrogen 18 mg/dL (7-18) 14 mg/dL (7-18) Creatinine 0.5 MG/DL (0.55-1.30) L 0.4 MG/DL (0.55-1.30) L Estimat Glomerular Filtration Rate mL/min (>60) mL/min (>60) Glucose Level 90 MG/DL (74-106) 107 MG/DL (74-106) H Calcium Level 8.3 MG/DL (8.5-10.1) L 8.1 MG/DL (8.5-10.1) L Total Bilirubin 0.2 MG/DL (0.2-1.0) 0.2 MG/DL (0.2-1.0) Direct Bilirubin < 0.1 MG/DL (0.0-0.3) Aspartate Amino Transf (AST/SGOT) 19 U/L (15-37) 16 U/L (15-37) Alanine Aminotransferase (ALT/SGPT) 17 U/L (12-78) 14 U/L (12-78) Alkaline Phosphatase 83 U/L (46-116) 79 U/L (46-116) Total Protein 6.6 G/DL (6.4-8.2) 6.4 G/DL (6.4-8.2) Albumin 1.7 G/DL (3.4-5.0) L 1.6 G/DL (3.4-5.0) L Globulin 4.9 g/dL 4.8 g/dL Albumin/Globulin Ratio 0.3 (1.0-2.7) L 0.3 (1.0-2.7) L White Blood Count 5.1 K/UL (4.8-10.8) Red Blood Count 3.70 M/UL (4.70-6.10) L Hemoglobin 8.6 G/DL (14.2-18.0) L Hematocrit 28.4 % (42.0-52.0) L Mean Corpuscular Volume 77 FL (80-99) L Mean Corpuscular Hemoglobin 23.4 PG (27.0-31.0) L Mean Corpuscular Hemoglobin Concent 30.5 G/DL (32.0-36.0) L Red Cell Distribution Width 20.3 % (11.6-14.8) H Platelet Count 327 K/UL (150-450) Mean Platelet Volume 6.3 FL (6.5-10.1) L Neutrophils (%) (Auto) 64.4 % (45.0-75.0) Lymphocytes (%) (Auto) 22.0 % (20.0-45.0) Monocytes (%) (Auto) 11.8 % (1.0-10.0) H Eosinophils (%) (Auto) 1.0 % (0.0-3.0) Basophils (%) (Auto) 0.9 % (0.0-2.0) Height (Feet): 5 Height (Inches): 6.00 Weight (Pounds): 80 Medications Current Medications Medications (Trade) Dose Ordered Sig/Mckenzie Route PRN Reason Start Time Stop Time Status Last Admin Dose Admin Acetaminophen (Tylenol) 650 mg Q6H PRN GT Mild Pain/Temp > 100.5 07/14/19 20:00 08/13/19 19:59 Ascorbic Acid (Vitamin C) 250 mg TWICE A DAY GT 07/13/19 09:00 08/12/19 08:59 07/15/19 09:06 Cefepime HCl 1 gm/ Dextrose 55 ml @ 110 mls/hr Q24H IVPB 07/14/19 02:00 07/21/19 01:59 07/15/19 02:05 Chlorhexidine Gluconate (Liz-Hex 2%) 1 applic DAILY@2000 TOPIC 07/13/19 20:00 08/12/19 19:59 07/14/19 20:28 Dextrose (Dextrose 50%) 25 ml Q30M PRN IV Hypoglycemia 07/13/19 04:00 08/12/19 03:59 Dextrose (Dextrose 50%) 50 ml Q30M PRN IV Hypoglycemia 07/13/19 04:00 08/12/19 03:59 Heparin Sodium (Porcine) (Heparin 5000 units/ml) 5,000 units EVERY 12 HOURS SUBQ 07/13/19 09:00 08/12/19 08:59 07/15/19 09:06 Insulin Aspart (NovoLOG) Q6HR SUBQ 07/13/19 18:00 08/12/19 06:29 07/14/19 17:48 Ipratropium [place] (Atrovent) 500 mcg Q4H PRN HHN Shortness of Breath 07/13/19 04:15 07/18/19 04:14 Lansoprazole (Prevacid) 30 mg ACBREAKFAST GT 07/14/19 06:30 08/12/19 06:29 07/15/19 06:24 Metoprolol Tartrate (Lopressor) 25 mg Q12HR ORAL 07/13/19 09:00 08/12/19 08:59 07/15/19 09:05 Zinc Sulfate (Zinc Sulfate) 220 mg DAILY ORAL 07/13/19 09:00 08/12/19 08:59 07/15/19 09:05 Assessment/Plan Problem List: (1) Protein-calorie malnutrition, severe Assessment & Plan: DAILY ESTIMATED NEEDS: Needs based on multiple wounds, underweight 45.6kg 30-40 kcals/kg 1779-4177 total kcals 1.5-2.0 g protein/kg 68-91 g total protein 25-30ml/kcal mL/kg 0984-8621 total fluid mLs NUTRITION DIAGNOSIS: * Increased kcal/pro needs R/T wound healing and underweight status as evidenced by h/o multiple full thickness wounds, pending full wound eval, pt @74% [place] Body Weight w/ severe wasting and suspected continued wt loss x3 weeks from previous adm. * Swallowing difficulty R/T dysphagia as evidenced by pt GT dep for all nutritional needs. (CURRENT TF:Jevity 1.2 @ 60ml/hr x 20) ENTERAL NUTRITION RECOMMENDATIONS: Jevity 1.2 @ 60ml/hr x 24 hrs + Prosource 1pkt daily to provide 1440ml, 1728kcal, 80g+11g prot, 1162ml free water * REC TO INCREASE goal to 60ml/hr x 24 hrs * Add Prosource 1pkt daily to better meet protein needs * HOB over 30 degrees/ water flush per MD ADDITIONAL RECOMMENDATIONS: * Calibrated bedscale wt for accurate CBW * WOUND HEALING: OLY BID via GT + VIT C 250MG BID + ZN SO4 220mg daily x10 days * TF recs as above to better meet est needs * Monitor lytes, replete as needed . ICD Codes: E43 - Unspecified severe protein-calorie malnutrition SNOMED: 261139165, 747370710, [id number] (2) Ulcer of lower extremity excluding decubitus ulcer ICD Codes: L97.909 - Non-pressure chronic ulcer of unspecified part of unspecified lower leg with unspecified severity SNOMED: 818639867 (3) Decubitus ulcer of trochanteric region of left hip Assessment & Plan: Pt presented on admission with contractures and multiple pressure injuries as prior. Full thickness sacral pressure injury noted. Base of wound with some pink granulation and some slough .edges adherent to base of wound. Brown discoloration without fluctuance /induration noted periwound. 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 Base of wound moist-pink , bone is palpable. Periwound is dark without erythema or induration with undermining Full thickness stage 3 pressure injury L ischium .Base of wound some pink granulation and some slough ,erythematous borders. Periwound dark and indurated. Scrotal area area red. Full thickness pressure injury base of scrotum. Base of wound has sloth. Full thickness wound idalia R tibia. [place] granulation at base of wound. Edges adherent. No odor or exudate noted. Periwound without erythema or elevation in skin temp Full thickness wound lateral/plantar L foot. [place] granulation at base of wound with scattered slough.Bone is palpable. Mild odor noted .Small amt seropurulent exudate noted. Edges macerated. Periwound is fluctuant. L st metatarsal flaccid. Full thickness ulcer noted to plantar L foot. Base of wound moist -viable with pink epithelial borders. Periwound is fluctuant. Small amt serous exudate noted. Full thickness wound medial L foot. 75% slough at base of wound,25% viable. Macerated borders. Mild odor noted. Tx.Plan: Cleanse all wounds Buttocks with Dakin's 0.125% daysi. Apply Dakin's moist gauze to wounds. Cover with Optifoam drsgs. Cleanse wounds L foot with Dakin's 0.125% daysi. Apply Dakin's moist gauze to wounds. Cover with ABD pads and wrap with Kerlix daily and prn. Cleanse wounds R tibia, and R foot with Dakin's 0.125% daysi. Apply Dakin's moist gauze cover with Abd pads and wrap with Kerlix daily and prn. Apply Moisture Barrier Paste to wound on scrotum. Cover with Optifoam drsg. Daily and prn. APM/KAVON Mattress overlay. Reposition at least every 2hours or as tolerated. Place pillow between knees. Off-load heels with pillow. ICD Codes: L89.229 - Pressure ulcer of left hip, unspecified stage SNOMED: 357900742 IshmaelRios Jul 15, 2019 10:49
[2019-07-15 12:00] VITALS: BP 133/70
--- NOTE | 2019-07-15 12:04 | General Progress Note ---
Assessment/Plan Status: stable Assessment/Plan: Sepsis - IV Abx per ID DNR Subjective Allergies: Coded Allergies: No Known Allergies (Unverified , 02/25/19) Subjective Confused Objective Last 24 Hour Vital Signs Date Time Temp Pulse Resp B/P (MAP) Pulse Ox O2 Delivery O2 Flow Rate FiO2 07/15/19 09:05 79 141/72 07/15/19 09:00 Room Air 07/15/19 08:00 96.9 79 20 141/72 (95) 100 07/15/19 08:00 75 07/15/19 07:10 77 18 97 Nasal Cannula 2.0 28 07/15/19 04:00 68 07/15/19 04:00 97.5 81 19 131/76 (94) 96 07/15/19 00:00 74 07/15/19 00:00 97.3 71 18 132/64 (86) 98 07/14/19 21:00 Room Air 07/14/19 20:30 85 124/65 07/14/19 20:00 67 07/14/19 20:00 97.5 85 17 124/65 (84) 99 07/14/19 19:40 84 20 98 Nasal Cannula 2.0 28 07/14/19 16:00 98.3 85 20 124/65 (84) 98 07/14/19 16:00 87 Intake and Output 07/14/19 07/15/19 19:00 07:00 Intake Total 1340 ml 900 ml Output Total 350 ml 300 ml Balance 990 ml 600 ml Free Water 360 ml 240 ml IV Total 500 ml Tube Feeding 480 ml 660 ml Output Urine Total 350 ml 300 ml Laboratory Tests 07/15/19 06:11: White Blood Count 5.1, Red Blood Count 3.70L, Hemoglobin 8.6L, Hematocrit 28.4L , Mean Corpuscular Volume 77L, Mean Corpuscular Hemoglobin 23.4L, Mean Corpuscular Hemoglobin Concent 30.5L, Red Cell Distribution Width 20.3H, Platelet Count 327, Mean Platelet Volume 6.3L, Neutrophils (%) (Auto) 64.4, Lymphocytes (%) (Auto) 22.0, Monocytes (%) (Auto) 11.8H, Eosinophils (%) (Auto) 1.0, Basophils (%) (Auto) 0.9, Sodium Level 139, Potassium Level 4.1, Chloride Level 107, Carbon Dioxide Level 26, Anion Gap 6, Blood Urea Nitrogen 14, Creatinine 0.4L, Estimat Glomerular Filtration Rate , Glucose Level 107H, Calcium Level 8.1L, Total Bilirubin 0.2, Aspartate Amino Transf (AST/SGOT) 16, Alanine Aminotransferase (ALT/SGPT) 14, Alkaline Phosphatase 79, Total Protein 6.4, Albumin 1.6L, Globulin 4.8, Albumin/Globulin Ratio 0.3L Height (Feet): 5 Height (Inches): 6.00 Weight (Pounds): 80 Objective CV RR Lungs CTA Abd SNT. BS + E contractures Ervin Mario MD Jul 15, 2019 12:04
[2019-07-15] MEDS ORDERED: Vancomycin 1 GM in NS 275 ML IVPB SCH (13:00)
[2019-07-15 16:00] VITALS: BP 144/78
--- NOTE | 2019-07-15 17:00 | Consultation ---
DATE OF CONSULTATION: 07/15/2019 INFECTIOUS DISEASES CONSULTATION CONSULTING PHYSICIAN: Manan Gomez M.D. REFERRING PHYSICIAN: Ervin Mario M.D. REASON FOR CONSULTATION: Pneumonia. HISTORY OF PRESENTING ILLNESS: This is an 83-year-old gentleman with history of dementia, pyelonephritis, G-tube placement, Proteus sepsis, decubitus ulcers, contractures, pneumonia who comes in with abnormal chest x-ray and was found to have a pneumonia, and Infectious Diseases consultation has been obtained for antibiotics. PAST MEDICAL HISTORY: 1. History of dementia. 2. Pyelonephritis. 3. Status post G-tube placement. 4. Proteus sepsis. 5. Contractures. 6. Pneumonia. MEDICATIONS: As an inpatient, the patient is on Tylenol, Prevacid, cefepime, chlorhexidine gluconate, insulin, ascorbic acid, zinc sulfate, subcutaneous heparin, metoprolol, and ipratropium bromide. ALLERGIES: No known drug allergies. SOCIAL HISTORY: Unknown. FAMILY HISTORY: Unknown. REVIEW OF SYSTEMS: Unable to obtain currently. PHYSICAL EXAMINATION: VITAL SIGNS: Temperature of 96.9, T-max of 100, pulse of 79, respiratory 20, blood pressure 141/72, and O2 saturation of 100%. HEENT: Pupils equally reactive to light and accommodation. Mouth appears clean without thrush. NECK: Supple. No adenopathy. No JVD. CARDIOVASCULAR: Regular rate and rhythm. No murmurs. LUNGS: Clear to auscultation bilaterally. No crackles. No wheezes. ABDOMEN: Soft and nontender. G-tube site appears clean. EXTREMITIES: No cyanosis, no clubbing, no edema. Contracted. SKIN: He has a right leg ulcer, left hip ulcer, and left plantar foot ulcer, which is extensive. LABORATORY AND DIAGNOSTIC DATA: White count 13.7 on 07/13/2019, white count of 5.1 on 07/15/2019, hemoglobin 8.6, hematocrit 28.4, MCV 77, platelet count of 327,000 with neutrophils of 54%. Sodium 139, potassium 4.1, chloride 107, bicarbonate 26, BUN 14, creatinine 0.4, glucose 107, calcium 8.1, total bilirubin 0.2. AST 16, ALT 14, alkaline phosphatase 79, total protein 6.4. Albumin 1.6. UA is showing 2 to 4 white cells. Rectal swab was positive for VRE, nasal swab was negative for MRSA. Blood culture is growing gram-positive cocci and gram-negative rods. Chest x-ray is showing patchy airspace opacity in the left lower lung, suspicious for left lower lobe pneumonia. ASSESSMENT: This is an 83-year-old gentleman with history of dementia, decubitus ulcers, status post G-tube placement as well as contractures who comes in with. 1. Gram-positive sepsis and gram-negative sepsis. 2. He also has pneumonia. 3. Multiple decubitus ulcer. PLAN: 1. Continue cefepime. 2. We will start the patient on IV vancomycin. 3. We will order sputum for Gram stain and culture. 4. We will follow up cultures and adjust antibiotics accordingly. I would like to thank, Dr. Mario, for this consultation. Manan Gomez M.D. DR: PATRICK JOB#: [id number] CC: Ervin Mario M.D.; Fax#: [phone]
[2019-07-15] MEDS ORDERED: ASCORBIC ACID500 MG GT (19:10)
[2019-07-15] MEDS ORDERED: VANCOMYCIN750 MG/150 IV (19:13)
[2019-07-15] MEDS ORDERED: ZINC SULFATE220 M1 GT (19:14)
[2019-07-15] MEDS ORDERED: HEPARIN SO5000 UNIT2 SUBQ (19:15)
[2019-07-15] MEDS ORDERED: METOPROLOL TART25 MG GT (19:16)
[2019-07-15] MEDS ORDERED: IPRATROPIU0.2 MG/1 M HHN (19:16)
[2019-07-15] MEDS ORDERED: PANTOPRAZOLE SO40 MG GT (19:18)
[2019-07-15] MEDS ORDERED: MEROPENEM-1 GM/50 ML IV (19:19)
[2019-07-15] MEDS ORDERED: BACTRIM DS TAB1 EAC1 ORAL (19:19)
[2019-07-15] MEDS ORDERED: ALBUTEROL2.5 MG/3 M INH (19:21)
[2019-07-15 20:00] VITALS: BP 131/78
[2019-07-15] MEDS: Dyna-Hex 2% Top Sol 2oz TOPIC SCH (20:46)
--- NOTE | 2019-07-15 20:53 | Cardiology Progress Note ---
Assessment/Plan Assessment/Plan cachectic, very debilitating male with non sustained vtach. echo will be ordered. non agressive approach Subjective Subjective [id number] Objective Last 24 Hour Vital Signs Date Time Temp Pulse Resp B/P (MAP) Pulse Ox O2 Delivery O2 Flow Rate FiO2 07/15/19 16:00 96.3 88 20 144/78 (100) 97 07/15/19 16:00 75 07/15/19 12:00 72 07/15/19 12:00 96.5 73 20 133/70 (91) 98 07/15/19 09:05 79 141/72 07/15/19 09:00 Room Air 07/15/19 08:00 96.9 79 20 141/72 (95) 100 07/15/19 08:00 75 07/15/19 07:10 77 18 97 Nasal Cannula 2.0 28 07/15/19 04:00 68 07/15/19 04:00 97.5 81 19 131/76 (94) 96 07/15/19 00:00 74 07/15/19 00:00 97.3 71 18 132/64 (86) 98 07/14/19 21:00 Room Air Intake and Output 07/14/19 07/15/19 19:00 07:00 Intake Total 1340 ml 900 ml Output Total 350 ml 300 ml Balance 990 ml 600 ml Free Water 360 ml 240 ml IV Total 500 ml Tube Feeding 480 ml 660 ml Output Urine Total 350 ml 300 ml Laboratory Tests Test 07/15/19 06:11 White Blood Count 5.1 K/UL (4.8-10.8) Red Blood Count 3.70 M/UL (4.70-6.10) L Hemoglobin 8.6 G/DL (14.2-18.0) L Hematocrit 28.4 % (42.0-52.0) L Mean Corpuscular Volume 77 FL (80-99) L Mean Corpuscular Hemoglobin 23.4 PG (27.0-31.0) L Mean Corpuscular Hemoglobin Concent 30.5 G/DL (32.0-36.0) L Red Cell Distribution Width 20.3 % (11.6-14.8) H Platelet Count 327 K/UL (150-450) Mean Platelet Volume 6.3 FL (6.5-10.1) L Neutrophils (%) (Auto) 64.4 % (45.0-75.0) Lymphocytes (%) (Auto) 22.0 % (20.0-45.0) Monocytes (%) (Auto) 11.8 % (1.0-10.0) H Eosinophils (%) (Auto) 1.0 % (0.0-3.0) Basophils (%) (Auto) 0.9 % (0.0-2.0) Sodium Level 139 MMOL/L (136-145) Potassium Level 4.1 MMOL/L (3.5-5.1) Chloride Level 107 MMOL/L (98-107) Carbon Dioxide Level 26 MMOL/L (21-32) Anion Gap 6 mmol/L (5-15) Blood Urea Nitrogen 14 mg/dL (7-18) Creatinine 0.4 MG/DL (0.55-1.30) L Estimat Glomerular Filtration Rate mL/min (>60) Glucose Level 107 MG/DL (74-106) H Calcium Level 8.1 MG/DL (8.5-10.1) L Total Bilirubin 0.2 MG/DL (0.2-1.0) Aspartate Amino Transf (AST/SGOT) 16 U/L (15-37) Alanine Aminotransferase (ALT/SGPT) 14 U/L (12-78) Alkaline Phosphatase 79 U/L (46-116) Total Protein 6.4 G/DL (6.4-8.2) Albumin 1.6 G/DL (3.4-5.0) L Globulin 4.8 g/dL Albumin/Globulin Ratio 0.3 (1.0-2.7) L Microbiology Date/Time Source Procedure Growth Status 07/13/19 00:00 Blood Blood Culture - Preliminary Gram Positive Cocci Resulted 07/12/19 23:45 Blood Blood Culture - Preliminary Gram Negative Bacillus 1 Gram Positive Cocci Resulted 07/13/19 00:01 Nose MRSA Culture - Final NO METHICILLIN RESISTANT STAPH AUREUS... Complete 07/13/19 00:01 Rectum VRE Culture - Final Enterococcus Faecium - Vre Complete 07/13/19 00:01 Rectum - Final NO CARBAPENEM-RESISTANT ENTEROBACTERI... Complete Sally Doty MD Jul 15, 2019 20:53
[2019-07-15] MEDS: Metoprolol 25mg tab GT SCH (21:42)
--- NOTE | 2019-07-15 22:45 | Consultation ---
DATE OF CONSULTATION: 07/15/2019 CARDIOLOGY CONSULTATION CONSULTING PHYSICIAN: Sally Doty M.D. PATIENT ID: This is an 83-year-old male. REASON FOR EVALUATION: Ventricular tachycardia. HISTORY OF PRESENT ILLNESS: The patient was admitted here on 07/13/2019. [facility] with abnormal chest x-ray, abnormal labs. The patient is bedridden, nonverbal with advanced dementia and contractures of all extremities and multiple ulcers. He is treated for pneumonia. He is unable to give any history. He is nonverbal. According to the chart, the patient has history of diabetes, hypertension, and dementia. He also was febrile and there was apparently chest x-ray, which suggested for him to be having pneumonia. It was noted on his progress note on his telemetry bed that the patient had episodes of ventricular tachycardia. REVIEW OF SYSTEMS: Not obtainable, although the patient has a G-tube and he is bedridden and contracted. MEDICATIONS: All reviewed. His medications prior to admission included albuterol, ascorbic acid, heparin, ipratropium, metoprolol, pantoprazole, Bactrim, vancomycin, zinc sulfate. His current medications include cefepime, vancomycin, Tylenol, ascorbic acid, insulin sliding scale, Atrovent, Prevacid, metoprolol, vancomycin, zinc sulfate. ALLERGIES: Not documented. HABITS: Unknown. PHYSICAL EXAMINATION: GENERAL: Revealed elderly man, lying in bed. He is cachectic. He is all contracted. He is nonverbal. VITAL SIGNS: Blood pressure 140/70, his heart rate is 70, oxygen saturation on room air is 100%, temperature 96.9. HEENT: There is mild facial droop. NECK: Neck veins are not distended. LUNGS: Crackles, more on the left. HEART: Regular with distant sounds. ABDOMEN: Soft. There is a G-tube. EXTREMITIES: Lower extremities are contracted. Left arm is contracted. Right arm is moving slightly. DIAGNOSTIC DATA: His EKG shows sinus tachycardia and his telemetry showed 2 episodes of nonsustained ventricular tachycardia, one is 5 beats per minute, another one is 7 beats per minute, which are not very fast. Approximate rate is 140 beats per minute. His chest x-ray revealed pneumonia on the left side. LABORATORY DATA: Reviewed. His white count went down from 13.7 to 5.1. His hemoglobin 8.6. His platelets are 327. His chemistry revealed creatinine 0.4. His urinalysis also is reviewed. IMPRESSION AND RECOMMENDATION: The patient has short episodes of ventricular tachycardia that could be due to sepsis versus using of inhalers. He is getting Atrovent p.r.n. shortness of breath. I am going to order echocardiogram, although this patient probably should be on not very aggressive management due to his very debilitated state, cachexia, and poor prognosis. Thank you very much for your consultation. Sally Doty M.D. DR: BERNARDA JOB#: [id number] CC:
[2019-07-16] VITALS: BP 123/65
[2019-07-16] MEDS: Cefepime HCl 1 GM in D5W 55 ML IVPB SCH (02:00)
[2019-07-16 04:00] VITALS: BP 122/64
[2019-07-16] MEDS: NovoLOG Insulin Flexpen SUBQ SCH ×4 (06:22→17:28)
[2019-07-16 08:00] VITALS: BP 131/61
[2019-07-16] MEDS: Ascorbic Acid 500mg tab GT SCH ×2 (08:26→17:28)
[2019-07-16] MEDS: Dakin's 0.125% Soln (Quarter Strength) 16oz TOPIC SCH (08:26)
[2019-07-16] MEDS: Zinc Sulfate 220mg cap GT SCH (08:26)
[2019-07-16] MEDS: Metoprolol 25mg tab GT SCH ×2 (08:26→21:11)
[2019-07-16] MEDS: Heparin 5000 units/ml inj SUBQ SCH ×2 (08:29→21:15)
--- NOTE | 2019-07-16 10:57 | Cardiology Report ---
APPROVED REPORT EXAM: Two-dimensional and M-mode echocardiogram with Doppler and color Doppler. INDICATION Arrhythmia M-Mode DIMENSIONS IVSd1.0 (0.7-1.1cm)Left Atrium (MM)3.9 (1.6-4.0cm) LVDd4.4 (3.5-5.6cm)Aortic Root3.2 (2.0-3.7cm) PWd0.7 (0.7-1.1cm)Aortic Cusp Exc.1.7 (1.5-2.0cm) IVSs1.1 cm LVDs3.2 (2.5-4.0cm) PWs1.2 cm Technically difficult study due to pt's contracted body. Study quality precludes accurate assessment of regional wall motion. Global left ventricular hypokinesis . Normal left ventricular chamber size . Left ventricular ejection fraction estimated to be 40-45%. No evidence of left ventricular hypertrophy . No evidence of pericardial effusion. All other cardiac chamber sizes are within normal limits. Focal aortic valve sclerosis with adequate cusp excursion. Thickened mitral valve leaflets with normal excursion. Mitral annulus and aortic root calcification. Echogenic tissue noted inthe mid RV onthe apical views which are poorly defined likely the tricuspid valve leaflet , clinical correlation recommneded further testing may be considered. Normal pulmonic valve structure. Normal tricuspid valve structure. IVC at size 1.3 cm with physiologic collapse. A color flow and spectral Doppler study was performed and revealed: Mild aortic insufficiency. Trace mitral regurgitation. Mitral diastolic velocities suggest reduced left ventricular relaxation c/w mild LV diastolic dysfunction (Grade I ) Trace tricuspid regurgitation. Tricuspid systolic velocities suggests peak right ventricular systolic pressure of 19mmHg.
--- NOTE | 2019-07-16 10:59 | Infectious Diseases Prog Note ---
Assessment/Plan Assessment/Plan antibiotics : vancomycin iv, cefepime A 1. klebsiella esbl sepsis 2. + blood cultures with staph haemolyticus likely contaminated 3. gram negative pneumonia 4. leucocytosis improving 5. dementia 6. decubitus ulcers P 1. d/c iv vancomycin, cefepime 2. start meropenem 3. will follow up cultures Subjective ROS Limited/Unobtainable: Yes Allergies: Coded Allergies: No Known Allergies (Unverified , 02/25/19) Objective Vital Signs Last 24 Hour Vital Signs Date Time Temp Pulse Resp B/P (MAP) Pulse Ox O2 Delivery O2 Flow Rate FiO2 07/16/19 09:02 75 20 98 Nasal Cannula 2.0 28 07/16/19 09:00 Room Air 07/16/19 08:26 66 131/61 07/16/19 08:00 79 07/16/19 08:00 97.3 66 18 131/61 (84) 99 07/16/19 04:00 85 07/16/19 04:00 97.9 87 18 122/64 (83) 97 07/16/19 00:00 76 07/16/19 00:00 98.9 75 19 123/65 (84) 96 07/15/19 21:42 91 131/78 07/15/19 21:00 Room Air 07/15/19 20:05 81 18 98 Nasal Cannula 2.0 28 07/15/19 20:00 86 07/15/19 20:00 98.3 91 20 131/78 (95) 96 07/15/19 16:00 96.3 88 20 144/78 (100) 97 07/15/19 16:00 75 07/15/19 12:00 72 07/15/19 12:00 96.5 73 20 133/70 (91) 98 Height (Feet): 5 Height (Inches): 6.00 Weight (Pounds): 80 Respiratory/Chest: lungs clear Cardiovascular: normal rate, regular rhythm, no gallop/murmur Abdomen: soft, non tender, other - GT Extremities: no edema, other - contractures Microbiology Date/Time Source Procedure Growth Status 07/14/19 20:30 Sputum Gram Stain - Final Resulted 07/14/19 20:30 Sputum Culture - Preliminary Gram Negative Bacillus 1 Resulted Current Medications Medications (Trade) Dose Ordered Sig/Mckenzie Route PRN Reason Start Time Stop Time Status Last Admin Dose Admin Acetaminophen (Tylenol) 650 mg Q6H PRN GT Mild Pain/Temp > 100.5 07/14/19 20:00 08/13/19 19:59 Ascorbic Acid (Vitamin C) 250 mg TWICE A DAY GT 07/13/19 09:00 08/12/19 08:59 07/16/19 08:26 Cefepime HCl 1 gm/ Dextrose 55 ml @ 110 mls/hr Q24H IVPB 07/14/19 02:00 07/21/19 01:59 07/16/19 02:00 Chlorhexidine Gluconate (Liz-Hex 2%) 1 applic DAILY@2000 TOPIC 07/13/19 20:00 08/12/19 19:59 07/15/19 20:46 Dextrose (Dextrose 50%) 25 ml Q30M PRN IV Hypoglycemia 07/13/19 04:00 08/12/19 03:59 Dextrose (Dextrose 50%) 50 ml Q30M PRN IV Hypoglycemia 07/13/19 04:00 08/12/19 03:59 Heparin Sodium (Porcine) (Heparin 5000 units/ml) 5,000 units EVERY 12 HOURS SUBQ 07/13/19 09:00 08/12/19 08:59 07/16/19 08:29 Insulin Aspart (NovoLOG) Q6HR SUBQ 07/13/19 18:00 08/12/19 06:29 07/16/19 06:22 Ipratropium [place] (Atrovent) 500 mcg Q4H PRN HHN Shortness of Breath 07/13/19 04:15 07/18/19 04:14 Lansoprazole (Prevacid) 30 mg ACBREAKFAST GT 07/14/19 06:30 08/12/19 06:29 07/16/19 06:15 Metoprolol Tartrate (Lopressor) 25 mg Q12HR GT 07/15/19 21:00 08/12/19 08:59 07/16/19 08:26 Sodium Hypochlorite (Dakin's Quarter Strength) 1 applic DAILY TOPIC 07/16/19 09:00 08/15/19 08:59 07/16/19 08:26 Vancomycin HCl (Vanco rx to dose) 1 ea DAILY PRN MISC Per rx protocol 07/15/19 11:15 08/14/19 11:14 Vancomycin HCl 750 mg/Sodium Chloride 275 ml @ 183.333 mls/hr Q36H IVPB 07/17/19 01:00 07/22/19 00:59 Zinc Sulfate (Zinc Sulfate) 220 mg DAILY GT 07/16/19 09:00 08/12/19 08:59 07/16/19 08:26 Manan Gomez MD Jul 16, 2019 10:59
[2019-07-16] MEDS ORDERED: Meropenem 500 MG in NS 55 ML IVPB SCH (11:00)
--- NOTE | 2019-07-16 11:10 | Cardiology Report ---
APPROVED REPORT EKG Measurement Heart [id number] 130P57 [id number] Sinus tachycardia with occasional premature ventricular complexes Low voltage QRS Cannot rule out Anteroseptal infarct, age undetermined Abnormal ECG
--- NOTE | 2019-07-16 11:14 | Cardiology Report ---
APPROVED REPORT EKG Measurement Heart [id number] 130P68 [id number] Sinus tachycardia with occasional premature ventricular complexes Possible Inferior infarct, age undetermined Anteroseptal infarct, age undetermined Abnormal ECG
--- NOTE | 2019-07-16 11:40 | Nephrology Progress Note ---
Assessment/Plan Assessment Pt dx: pneumonia Pt hx of sepsis, pneumonia, hypertension, and diabetes . Plan CBC, CMP tomorrow. Sputum culture completed. ID, d/c'd vanc and cefepime, started Meropenem Subjective Constitutional: Reports: weakness Genitourinary: Reports: no symptoms Neurologic/Psychiatric: Reports: no symptoms Objective Objective Last 24 Hour Vital Signs Date Time Temp Pulse Resp B/P (MAP) Pulse Ox O2 Delivery O2 Flow Rate FiO2 07/16/19 09:02 75 20 98 Nasal Cannula 2.0 28 07/16/19 09:00 Room Air 07/16/19 08:26 66 131/61 07/16/19 08:00 79 07/16/19 08:00 97.3 66 18 131/61 (84) 99 07/16/19 04:00 85 07/16/19 04:00 97.9 87 18 122/64 (83) 97 07/16/19 00:00 76 07/16/19 00:00 98.9 75 19 123/65 (84) 96 07/15/19 21:42 91 131/78 07/15/19 21:00 Room Air 07/15/19 20:05 81 18 98 Nasal Cannula 2.0 28 07/15/19 20:00 86 07/15/19 20:00 98.3 91 20 131/78 (95) 96 07/15/19 16:00 96.3 88 20 144/78 (100) 97 07/15/19 16:00 75 07/15/19 12:00 72 07/15/19 12:00 96.5 73 20 133/70 (91) 98 Intake and Output 07/15/19 07/16/19 19:00 07:00 Output Total 325 ml 500 ml Balance -325 ml -500 ml Output Urine Total 325 ml 500 ml # Bowel Movements 5 Height (Feet): 5 Height (Inches): 6.00 Weight (Pounds): 80 General Appearance: lethargic, cachetic EENT: PERRL/EOMI Neck: non-tender, supple Cardiovascular: normal peripheral pulses, regular rhythm Respiratory/Chest: rhonchi - bilaterally Abdomen: normal bowel sounds, non tender Objective contracted limbs Shira Bain N.P. Jul 16, 2019 11:39
[2019-07-16 11:46] VITALS: BP 124/71
--- NOTE | 2019-07-16 11:53 | Surgery Progress Note ---
Surgery Progress Note Subjective Additional Comments no acute events comfortable stable echo noted Objective Last 24 Hour Vital Signs Date Time Temp Pulse Resp B/P (MAP) Pulse Ox O2 Delivery O2 Flow Rate FiO2 07/16/19 11:46 97.5 77 20 124/71 (88) 95 07/16/19 09:02 75 20 98 Nasal Cannula 2.0 28 07/16/19 09:00 Room Air 07/16/19 08:26 66 131/61 07/16/19 08:00 79 07/16/19 08:00 97.3 66 18 131/61 (84) 99 07/16/19 04:00 85 07/16/19 04:00 97.9 87 18 122/64 (83) 97 07/16/19 00:00 76 07/16/19 00:00 98.9 75 19 123/65 (84) 96 07/15/19 21:42 91 131/78 07/15/19 21:00 Room Air 07/15/19 20:05 81 18 98 Nasal Cannula 2.0 28 07/15/19 20:00 86 07/15/19 20:00 98.3 91 20 131/78 (95) 96 07/15/19 16:00 96.3 88 20 144/78 (100) 97 07/15/19 16:00 75 07/15/19 12:00 72 07/15/19 12:00 96.5 73 20 133/70 (91) 98 I&O Intake and Output 07/15/19 07/16/19 19:00 07:00 Output Total 325 ml 500 ml Balance -325 ml -500 ml Output Urine Total 325 ml 500 ml # Bowel Movements 5 Dressing: saturated Wound: other Drains: other Cardiovascular: RSR Respiratory: decreased breath sounds Abdomen: soft, present bowel sounds, other Extremities: no cyanosis Plan Problems: (1) Protein-calorie malnutrition, severe Assessment & Plan: DAILY ESTIMATED NEEDS: Needs based on multiple wounds, underweight 45.6kg 30-40 kcals/kg [id number] total kcals 1.5-2.0 g protein/kg 68-91 g total protein 25-30ml/kcal mL/kg 4136-7168 total fluid mLs NUTRITION DIAGNOSIS: * Increased kcal/pro needs R/T wound healing and underweight status as evidenced by h/o multiple full thickness wounds, pending full wound eval, pt @74% [place] Body Weight w/ severe wasting and suspected continued wt loss x3 weeks from previous adm. * Swallowing difficulty R/T dysphagia as evidenced by pt GT dep for all nutritional needs. (CURRENT TF:Jevity 1.2 @ 60ml/hr x 20) ENTERAL NUTRITION RECOMMENDATIONS: Jevity 1.2 @ 60ml/hr x 24 hrs + Prosource 1pkt daily to provide 1440ml, 1728kcal, 80g+11g prot, 1162ml free water * REC TO INCREASE goal to 60ml/hr x 24 hrs * Add Prosource 1pkt daily to better meet protein needs * HOB over 30 degrees/ water flush per MD ADDITIONAL RECOMMENDATIONS: * Calibrated bedscale wt for accurate CBW * WOUND HEALING: OLY BID via GT + VIT C 250MG BID + ZN SO4 220mg daily x10 days * TF recs as above to better meet est needs * Monitor lytes, replete as needed . (2) Ulcer of lower extremity excluding decubitus ulcer (3) Decubitus ulcer of trochanteric region of left hip Assessment & Plan: Pt presented on admission with contractures and multiple pressure injuries as prior. Full thickness sacral pressure injury noted. Base of wound with some pink granulation and some slough .edges adherent to base of wound. Brown discoloration without fluctuance /induration noted periwound. 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 Base of wound moist-pink , bone is palpable. Periwound is dark without erythema or induration with undermining Full thickness stage 3 pressure injury L ischium .Base of wound some pink granulation and some slough ,erythematous borders. Periwound dark and indurated. Scrotal area area red. Full thickness pressure injury base of scrotum. Base of wound has sloth. Full thickness wound idalia R tibia. [place] granulation at base of wound. Edges adherent. No odor or exudate noted. Periwound without erythema or elevation in skin temp Full thickness wound lateral/plantar L foot. [place] granulation at base of wound with scattered slough.Bone is palpable. Mild odor noted .Small amt seropurulent exudate noted. Edges macerated. Periwound is fluctuant. L st metatarsal flaccid. Full thickness ulcer noted to plantar L foot. Base of wound moist -viable with pink epithelial borders. Periwound is fluctuant. Small amt serous exudate noted. Full thickness wound medial L foot. 75% slough at base of wound,25% viable. Macerated borders. Mild odor noted. Tx.Plan: Cleanse all wounds Buttocks with Dakin's 0.125% daysi. Apply Dakin's moist gauze to wounds. Cover with Optifoam drsgs. Cleanse wounds L foot with Dakin's 0.125% daysi. Apply Dakin's moist gauze to wounds. Cover with ABD pads and wrap with Kerlix daily and prn. Cleanse wounds R tibia, and R foot with Dakin's 0.125% daysi. Apply Dakin's moist gauze cover with Abd pads and wrap with Kerlix daily and prn. Apply Moisture Barrier Paste to wound on scrotum. Cover with Optifoam drsg. Daily and prn. APM/KAVON Mattress overlay. Reposition at least every 2hours or as tolerated. Place pillow between knees. Off-load heels with pillow. Rios Quiñones Jul 16, 2019 11:53
[2019-07-16] MEDS: Meropenem 1gm/NS 110ml IVPB SCH ×4 (11:56→21:15)
[2019-07-16 14:05] LABS: ANION GAP 3 mmol/L (5-15); BLOOD UREA NITROGEN 10 mg/dL (7-18); CALCIUM 8.4 MG/DL (8.5-10.1); CARBON DIOXIDE 24 MMOL/L (21-32); CHLORIDE 105 MMOL/L (98-107); CREATININE 0.5 MG/DL (0.55-1.30); POTASSIUM 4.5 MMOL/L (3.5-5.1); SODIUM 132 MMOL/L (136-145)
[2019-07-16 16:00] VITALS: BP 144/78
[2019-07-16 20:00] VITALS: BP 148/85
[2019-07-16] MEDS: Dyna-Hex 2% Top Sol 2oz TOPIC SCH (20:00)
[2019-07-17] VITALS: BP 139/80
[2019-07-17] MEDS ORDERED: Vancomycin 750 MG in NS 275 ML IVPB SCH (01:00)
[2019-07-17 04:00] VITALS: BP 136/78
[2019-07-17] MEDS: NovoLOG Insulin Flexpen SUBQ SCH ×3 (06:00→12:00)
[2019-07-17 06:42] LABS: BASOPHILS % (AUTO) 1.2 % (0.0-2.0); EOSINOPHILS % (AUTO) 1.6 % (0.0-3.0); HEMATOCRIT 33.6 % (42.0-52.0); HEMOGLOBIN 10.1 G/DL (14.2-18.0); LYMPHOCYTES % (AUTO) 21.6 % (20.0-45.0); MEAN CORPUSCULAR VOLUME 77 FL (80-99); MONOCYTES % (AUTO) 10.3 % (1.0-10.0); NEUTROPHILS % (AUTO) 65.4 % (45.0-75.0); PLATELET COUNT 414 K/UL (150-450); RED BLOOD COUNT 4.37 M/UL (4.70-6.10); RED CELL DISTRIBUTION WIDTH 20.2 % (11.6-14.8); WHITE BLOOD COUNT 4.2 K/UL (4.8-10.8)
[2019-07-17 08:00] VITALS: BP 143/74
[2019-07-17] MEDS: Meropenem 1gm/NS 110ml IVPB SCH ×2 (09:04)
[2019-07-17] MEDS: Ascorbic Acid 500mg tab GT SCH (09:04)
[2019-07-17] MEDS: Metoprolol 25mg tab GT SCH (09:04)
[2019-07-17] MEDS: Zinc Sulfate 220mg cap GT SCH (09:05)
[2019-07-17] MEDS: Heparin 5000 units/ml inj SUBQ SCH (09:07)
[2019-07-17] MEDS: Dakin's 0.125% Soln (Quarter Strength) 16oz TOPIC SCH (09:08)
--- NOTE | 2019-07-17 09:51 | Nephrology Progress Note ---
Assessment/Plan Assessment Pt dx: pneumonia Pt hx of sepsis, pneumonia, hypertension, and diabetes . Plan Continue Meropenem Discharge today back to SNF Subjective ROS Limited/Unobtainable: Yes Subjective Pt is cachetic, nonverbal. He does respond to his name by directing his eyes and focusing his gaze. Objective Objective Last 24 Hour Vital Signs Date Time Temp Pulse Resp B/P (MAP) Pulse Ox O2 Delivery O2 Flow Rate FiO2 07/17/19 09:04 86 143/74 07/17/19 08:09 76 18 98 Nasal Cannula 2.0 28 07/17/19 04:00 98.7 81 18 136/78 (97) 99 07/17/19 04:00 81 07/17/19 00:00 98.0 76 18 139/80 (99) 100 07/17/19 00:00 76 07/16/19 21:50 74 18 98 Nasal Cannula 2.0 28 07/16/19 21:11 83 149/88 07/16/19 21:00 Room Air 07/16/19 20:00 97.9 90 20 148/85 (106) 98 07/16/19 20:00 90 07/16/19 16:00 97.4 86 20 144/78 (100) 97 07/16/19 16:00 82 07/16/19 12:00 76 07/16/19 11:46 97.5 77 20 124/71 (88) 95 Intake and Output 07/16/19 07/17/19 19:00 07:00 Intake Total 740 ml 700 ml Output Total 1100 ml Balance -360 ml 700 ml Free Water 150 ml 100 ml IV Total 110 ml Tube Feeding 480 ml 600 ml Output Urine Total 1100 ml # Bowel Movements 3 1 Laboratory Tests 07/16/19 13:30: Sodium Level 132L, Potassium Level 4.5, Chloride Level 105, Carbon Dioxide Level 24, Anion Gap 3L, Blood Urea Nitrogen 10, Creatinine 0.5L, Estimat Glomerular Filtration Rate , Glucose Level 91, Calcium Level 8.4L 07/17/19 06:19: White Blood Count 4.2L, Red Blood Count 4.37L, Hemoglobin 10.1L, Hematocrit 33.6L, Mean Corpuscular Volume 77L, Mean Corpuscular Hemoglobin 23.2L, Mean Corpuscular Hemoglobin Concent 30.2L, Red Cell Distribution Width 20.2H, Platelet Count 414, Mean Platelet Volume 5.3L, Neutrophils (%) (Auto) 65.4, Lymphocytes (%) (Auto) 21.6, Monocytes (%) (Auto) 10.3H, Eosinophils (%) (Auto) 1.6, Basophils (%) (Auto) 1.2 Height (Feet): 5 Height (Inches): 6.00 Weight (Pounds): 125 Neurologic: motor weakness Objective Neuro: nonverbal, cachetic HEENT: head atraumatic, PERRLA, nose/mouth pink/moist, natural teeth CVS: NSR w/ run of Vtach x1 (echo complete) Lungs: decreased bilat rhonchi tx meropenem for pneumonia Abd: no ttp, BS+4Q hypoactive GI/: gtube patent and feeding, aguil[place] cath approx 250-300 mls clear urine Extremities: contracted bilat lower, radial 2+, pop/pedal 1+ (cool/no cyanosis noted), generalized weakness Skin: normal for ethnicity, no jaundice Shira Bain N.P. Jul 17, 2019 09:51
[2019-07-17 12:00] VITALS: BP 130/75
--- NOTE | 2019-07-17 13:30 | Surgery Progress Note ---
Surgery Progress Note Subjective Additional Comments no acute events comfortable exam unchanged labs okay Objective Last 24 Hour Vital Signs Date Time Temp Pulse Resp B/P (MAP) Pulse Ox O2 Delivery O2 Flow Rate FiO2 07/17/19 09:04 86 143/74 07/17/19 09:00 Room Air 07/17/19 08:09 76 18 98 Nasal Cannula 2.0 28 07/17/19 08:00 87 07/17/19 08:00 96.4 86 20 143/74 (97) 100 07/17/19 04:00 98.7 81 18 136/78 (97) 99 07/17/19 04:00 81 07/17/19 00:00 98.0 76 18 139/80 (99) 100 07/17/19 00:00 76 07/16/19 21:50 74 18 98 Nasal Cannula 2.0 28 07/16/19 21:11 83 149/88 07/16/19 21:00 Room Air 07/16/19 20:00 97.9 90 20 148/85 (106) 98 07/16/19 20:00 90 07/16/19 16:00 97.4 86 20 144/78 (100) 97 07/16/19 16:00 82 I&O Intake and Output 07/16/19 07/17/19 19:00 07:00 Intake Total 740 ml 700 ml Output Total 1100 ml Balance -360 ml 700 ml Free Water 150 ml 100 ml IV Total 110 ml Tube Feeding 480 ml 600 ml Output Urine Total 1100 ml # Bowel Movements 3 1 Dressing: saturated Wound: other Drains: other Cardiovascular: RSR Respiratory: clear, decreased breath sounds Abdomen: soft, present bowel sounds Extremities: no cyanosis, other Laboratory Tests Test 07/16/19 13:30 07/17/19 06:19 Sodium Level 132 MMOL/L (136-145) L Potassium Level 4.5 MMOL/L (3.5-5.1) Chloride Level 105 MMOL/L (98-107) Carbon Dioxide Level 24 MMOL/L (21-32) Anion Gap 3 mmol/L (5-15) L Blood Urea Nitrogen 10 mg/dL (7-18) Creatinine 0.5 MG/DL (0.55-1.30) L Estimat Glomerular Filtration Rate mL/min (>60) Glucose Level 91 MG/DL (74-106) Calcium Level 8.4 MG/DL (8.5-10.1) L White Blood Count 4.2 K/UL (4.8-10.8) L Red Blood Count 4.37 M/UL (4.70-6.10) L Hemoglobin 10.1 G/DL (14.2-18.0) L Hematocrit 33.6 % (42.0-52.0) L Mean Corpuscular Volume 77 FL (80-99) L Mean Corpuscular Hemoglobin 23.2 PG (27.0-31.0) L Mean Corpuscular Hemoglobin Concent 30.2 G/DL (32.0-36.0) L Red Cell Distribution Width 20.2 % (11.6-14.8) H Platelet Count 414 K/UL (150-450) Mean Platelet Volume 5.3 FL (6.5-10.1) L Neutrophils (%) (Auto) 65.4 % (45.0-75.0) Lymphocytes (%) (Auto) 21.6 % (20.0-45.0) Monocytes (%) (Auto) 10.3 % (1.0-10.0) H Eosinophils (%) (Auto) 1.6 % (0.0-3.0) Basophils (%) (Auto) 1.2 % (0.0-2.0) Plan Problems: (1) Protein-calorie malnutrition, severe Assessment & Plan: DAILY ESTIMATED NEEDS: Needs based on multiple wounds, underweight 45.6kg 30-40 kcals/kg 0852-1475 total kcals 1.5-2.0 g protein/kg 68-91 g total protein 25-30ml/kcal mL/kg 2460-4159 total fluid mLs NUTRITION DIAGNOSIS: * Increased kcal/pro needs R/T wound healing and underweight status as evidenced by h/o multiple full thickness wounds, pending full wound eval, pt @74% [place] Body Weight w/ severe wasting and suspected continued wt loss x3 weeks from previous adm. * Swallowing difficulty R/T dysphagia as evidenced by pt GT dep for all nutritional needs. (CURRENT TF:Jevity 1.2 @ 60ml/hr x 20) ENTERAL NUTRITION RECOMMENDATIONS: Jevity 1.2 @ 60ml/hr x 24 hrs + Prosource 1pkt daily to provide 1440ml, 1728kcal, 80g+11g prot, 1162ml free water * REC TO INCREASE goal to 60ml/hr x 24 hrs * Add Prosource 1pkt daily to better meet protein needs * HOB over 30 degrees/ water flush per MD ADDITIONAL RECOMMENDATIONS: * Calibrated bedscale wt for accurate CBW * WOUND HEALING: OLY BID via GT + VIT C 250MG BID + ZN SO4 220mg daily x10 days * TF recs as above to better meet est needs * Monitor lytes, replete as needed . (2) Ulcer of lower extremity excluding decubitus ulcer (3) Decubitus ulcer of trochanteric region of left hip Assessment & Plan: Pt presented on admission with contractures, multiple pressure injuries. Hyperpigmentation noted to sacrum from previous pressure injury. Full thickness pressure injury L trochanteric with undermining. Base of wound has 90% burgess slough. Bone is palpable. Wound is malodorous.(L)6cm x (W)4cm x (D) 2cm , Undermining clockwise 12-12 by 3cm @6o'clock. Small amt of purulent brown exudate noted. Resolving pressure injury L ischium. Dry brown eschar with surrounding pink epithelial borders.(L)1cm x (W)1cm. DTPI R ischium . Base of wound is maroon ,fluctuant with red tinged margins. Wound is within previously resolved wound . surrounding hyperpigmentation with scarring. Resolving Full thickness pressure injury idalia R tibia . Base of wound has pink granulation. Edges are adherent and pink. No odor or exudate noted.(L) 5.5cm x (W)0.6cm. Resolving pressure injury plantar R hallux ,Base of wound moist-viable with surrounding pink epithelial. (L)1cm x (W)1.4cm. Full thickness wound lateral L foot extending from base of L 5th metatarsal to L heel and plantar L heel (L)4.5cm x (W)18.5cm. Base of wound has scattered slough ,90% pink granulation.Edges are macerated.Wound is malodorous. Full thickness pressure injury L hallux and plantar aspect. Base of wound has 100% soft necrosis. Wound is malodorous. (L)6.5cm x (W)5.5cm. Tips of L 2nd 3rd and 4th metatarsals has soft necrosis. Full thickness sacral pressure injury noted. Base of wound with some pink granulation and some slough .edges adherent to base of wound. Brown discoloration without fluctuance /induration noted periwound. 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 Base of wound moist-pink , bone is palpable. Periwound is dark without erythema or induration with undermining Full thickness stage 3 pressure injury L ischium .Base of wound some pink granulation and some slough ,erythematous borders. Periwound dark and indurated. Scrotal area area red. Full thickness pressure injury base of scrotum. Base of wound has sloth. Full thickness wound idalia R tibia. [place] granulation at base of wound. Edges adherent. No odor or exudate noted. Periwound without erythema or elevation in skin temp Full thickness wound lateral/plantar L foot. [place] granulation at base of wound with scattered slough.Bone is palpable. Mild odor noted .Small amt seropurulent exudate noted. Edges macerated. Periwound is fluctuant. L st metatarsal flaccid. Full thickness ulcer noted to plantar L foot. Base of wound moist -viable with pink epithelial borders. Periwound is fluctuant. Small amt serous exudate noted. Full thickness wound medial L foot. 75% slough at base of wound,25% viable. Macerated borders. Mild odor noted. Tx.Plan: Cleanse all wounds Buttocks with Dakin's 0.125% daysi. Apply Dakin's moist gauze to wounds. Cover with Optifoam drsgs. Cleanse wounds L foot with Dakin's 0.125% daysi. Apply Dakin's moist gauze to wounds. Cover with ABD pads and wrap with Kerlix daily and prn. Cleanse wounds R tibia, and R foot with Dakin's 0.125% daysi. Apply Dakin's moist gauze cover with Abd pads and wrap with Kerlix daily and prn. Apply Moisture Barrier Paste to wound on scrotum. Cover with Optifoam drsg. Daily and prn. APM/KAVON Mattress overlay. Reposition at least every 2hours or as tolerated. Place pillow between knees. Off-load heels with pillow. Rios Quiñones Jul 17, 2019 13:30
--- NOTE | 2019-07-17 16:32 | Cardiology Progress Note ---
Assessment/Plan Assessment/Plan cachectic, very debilitating male with non sustained vtach. on agressive approach Subjective Subjective the patient is not verbal Objective Last 24 Hour Vital Signs Date Time Temp Pulse Resp B/P (MAP) Pulse Ox O2 Delivery O2 Flow Rate FiO2 07/17/19 12:00 97.2 64 20 130/75 (93) 99 07/17/19 12:00 76 07/17/19 09:04 86 143/74 07/17/19 09:00 Room Air 07/17/19 08:09 76 18 98 Nasal Cannula 2.0 28 07/17/19 08:00 87 07/17/19 08:00 96.4 86 20 143/74 (97) 100 07/17/19 04:00 98.7 81 18 136/78 (97) 99 07/17/19 04:00 81 07/17/19 00:00 98.0 76 18 139/80 (99) 100 07/17/19 00:00 76 07/16/19 21:50 74 18 98 Nasal Cannula 2.0 28 07/16/19 21:11 83 149/88 07/16/19 21:00 Room Air 07/16/19 20:00 97.9 90 20 148/85 (106) 98 07/16/19 20:00 90 General Appearance: cachetic EENT: other - facial droop Neck: no JVD Rhythm: NSR Cardiovascular: regular rhythm Respiratory/Chest: rhonchi - left Abdomen: no organomegaly Extremities: other - contracted Intake and Output 07/16/19 07/17/19 19:00 07:00 Intake Total 740 ml 700 ml Output Total 1100 ml Balance -360 ml 700 ml Free Water 150 ml 100 ml IV Total 110 ml Tube Feeding 480 ml 600 ml Output Urine Total 1100 ml # Bowel Movements 3 1 Laboratory Tests Test 07/17/19 06:19 White Blood Count 4.2 K/UL (4.8-10.8) L Red Blood Count 4.37 M/UL (4.70-6.10) L Hemoglobin 10.1 G/DL (14.2-18.0) L Hematocrit 33.6 % (42.0-52.0) L Mean Corpuscular Volume 77 FL (80-99) L Mean Corpuscular Hemoglobin 23.2 PG (27.0-31.0) L Mean Corpuscular Hemoglobin Concent 30.2 G/DL (32.0-36.0) L Red Cell Distribution Width 20.2 % (11.6-14.8) H Platelet Count 414 K/UL (150-450) Mean Platelet Volume 5.3 FL (6.5-10.1) L Neutrophils (%) (Auto) 65.4 % (45.0-75.0) Lymphocytes (%) (Auto) 21.6 % (20.0-45.0) Monocytes (%) (Auto) 10.3 % (1.0-10.0) H Eosinophils (%) (Auto) 1.6 % (0.0-3.0) Basophils (%) (Auto) 1.2 % (0.0-2.0) Microbiology Date/Time Source Procedure Growth Status 07/14/19 20:30 Sputum Gram Stain - Final Resulted 07/14/19 20:30 Sputum Culture - Preliminary Acinetobacter Baumannii Complx Usual Respiratory Liana Resulted Sally Doty MD Jul 17, 2019 16:32
--- NOTE | 2019-07-18 07:35 | Discharge Summary ---
Discharge Summary Discharge Summary _ DATE OF ADMISSION: 07/13/2019 DATE OF DISCHARGE: 07/17/2019 DISCHARGED BY: Dr. Mraio REASON FOR ADMISSION: 83 years old male, resident of shelter facility with past medical history of diabetes mellitus, hypertension, pneumonia, DNR/DNI status, presented with abnormal labs and abnormal chest x-ray. Patient was unable to provide any history. According to shelter facility, no reported fever and chills, no reported nausea and vomiting. Patient was noted to be congested. Upon evaluation in emergency department patient was tachycardic with heart rate 113, pulse oximetry was stable on room air. Laboratory work-up revealed leukocytosis WBC 13.7, hemoglobin 10.4, hematocrit 33.4, platelet count 389. BUN 23, creatinine 0.7. Lactic acid 1.9. Troponin negative. EKG revealed sinus tachycardia, no acute ischemic changes. Urinalysis revealed +2 protein, no evidence of urinary tract infection. Chest x-ray demonstrated patchy airspace opacities in left lower lung, suspicious for left lower lobe pneumonia. In emergency department patient received fluid challenge, pancultured, started on broad-spectrum antibiotics and admitted for further management. CONSULTANTS: metal solderer Dr Doty ID specialist Dr. Gomez [facility] Dr. Quiñones [facility] COURSE: Patient admitted to telemetry floor. Patient was continued on empiric antibiotics. Supplemental oxygen titrated as needed to keep pulse oximetry above 92%. Pulmonary toilet provided as needed with bronchodilator via handheld nebulizing therapy. Head Of [employer] Ins[employer] followed. Echocardiogram revealed global left ventricular hypokinesis with reduced ejection fraction of 40 to 45%. No evidence of left ventricular hypertrophy. Right ventricular systolic pressure of 19. Head Of [employer] Ins[employer] recommended nonaggressive approach, given overall medical condition. According to metal solderer, short episodes of nonsustained ventricular tachycardia could be due to sepsis versus using bronchodilator. Patient was continued on beta-abel. DVT prophylaxis provided. Infectious disease disease specialist followed. Blood culture revealed Klebsiella pneumonia ESBL and Staphylococcus hemolyticus. Staphylococci hemolyticus was likely contaminant in blood, as per ID specialist. Sputum culture revealed Acinetobacter MDR. Antibiotic regimen provided as per infectious disease recommendation. Patient will need to continue antibiotics at the facility to complete the course as per ID specialist recommendation. Leukocytosis resolved. Patient remained afebrile . Blood sugar was managed with sliding scale of insulin. GI prophylaxis provided. Strict aspiration precautions were maintained. G-tube feeding was continued. Tube formula and protein supplement provided as per registered nurse behavioral health recommendation. General surgeon followed. Patient presented with multiply pressure injuries, including decubitus ulcer of the trochanteric region of left hip and ulcer of lower extremity excluding decubitus ulcer. Wound care provided as per general surgeon recommendation. Continue wound care at the facility. Supportive care provided. Patient was stabilized and transferred to shelter facility for continuation of care. FINAL DIAGNOSES: Klebsiella ESBL sepsis Acinetobacter MDR pneumonia Nonsustained ventricular tachycardia Hypertension Diabetes mellitus Severe protein calorie malnutrition Ulcer of lower extremity, excluding decubitus ulcer Decubitus ulcer of the trochanteric region of left hip DISCHARGE MEDICATIONS: See Medication Reconciliation list. DISCHARGE INSTRUCTIONS: Patient was discharged to the shelter facility. Follow up with medical doctor at the facility. I have been assigned to dictate discharge summary for this account. I was not involved in the patient's management. Chelsey Kumar NP Jul 18, 2019 07:35
== END 2019-07-17 15:44 | DRG 871 ==
LOC: EDBD 23:27 → EMR 23:48 → 2E 07-13 00:56 → EDBEDREQ 07-13 01:31
DX: A41.59 Other Gram-negative sepsis (principal); L89.323 Pressure ulcer of left buttock, stage 3; L89.224 Pressure ulcer of left hip, stage 4; E43 Unspecified severe protein-calorie malnutrition; J15.6 Pneumonia due to other Gram-negative bacteria; Z68.1 Body mass index [BMI] 19.9 or less, adult; L97.829 Non-pressure chronic ulcer of other part of left lower leg with unspecified severity; I47.2 Ventricular tachycardia; G93.49 Other encephalopathy; Z16.12 Extended spectrum beta lactamase (ESBL) resistance; Z16.24 Resistance to multiple antibiotics; I10 Essential (primary) hypertension; E11.9 Type 2 diabetes mellitus without complications; R13.10 Dysphagia, unspecified; F03.90 Unspecified dementia, unspecified severity, without behavioral disturbance, psychotic disturbance, mood disturbance, and anxiety; Z66 Do not resuscitate; M24.50 Contracture, unspecified joint
CPT/HCPCS: 36415; 71045; 80048; 80053; 80076; 81003; 82550; 82553; 82962; 83605; 84484; 85025; 87040; 87070; 87081; 87181; 87205; 93005; 93306; 94664; 96361; 96365; 96367; 99291; J1815

== ENCOUNTER 2019-08-03 01:15 | Emergency (ER) | payer MEDICARE, OTHER ==
[~2019-08-03] VITALS: Ht 162.6 cm; Wt 59.0 kg
[~2019-08-03 01:15] MED LIST changes: +ALBUTEROL2.5 MG/3 M INH; +ASCORBIC ACID500 MG GT; +IPRATROPIU0.2 MG/1 M HHN; +PANTOPRAZOLE SO40 MG GT; +VANCOMYCIN750 MG/150 IV; +ZINC SULFATE220 M1 GT
--- NOTE | 2019-08-03 01:19 | NUR ---
ED Nurse Note: pt brought in by MATILDE from [facility] c/c malfunctioning g-tube, clogged gtube. attempted flushing the gtube but unable to do it at this time, ERMD notified. abd soft nondistended.
--- NOTE | 2019-08-03 01:20 | NUR ---
ED Nurse Note: noted pt with multiple wounds, noted ilana sacral area, noted on left and right foot, noted right lower ext anterior side, noted wound behind left ear, wound care done. pt noted redness on back. noted pt with congestion, LS=rhonchi, suction done pt tolerated well. will cont monitor.
--- NOTE | 2019-08-03 01:40 | NUR ---
ED Nurse Note: ERMD at the bedside removed old g-tube and replaced w/ new one, 20fr, pt tolerated well, called xray for confirmation.
[2019-08-03 01:45] VITALS: BP 149/86
--- NOTE | 2019-08-03 01:48 | Emergency Room Report ---
History of Present Illness General Chief Complaint: Malfunctioning Gastric Tube Source: Medical Record, EMS Present Illness HPI Patient is an 83 year-old male who presented for malfunctioning Gtube. Tube had been noted to be clogged. Patient was sent in for evaluation and treatment. History limited by patient mental status. Allergies: Coded Allergies: No Known Allergies (Unverified , 02/25/19) Patient History Limited by: medical condition Past Medical History: see triage record Past Surgical History: unable to obtain Reviewed Nursing Documentation: PMH: Agreed; PSxH: Agreed Nursing Documentation-PMH Hx Hypertension: Yes Hx Asthma: No - hx resp failure and asp pneumonia Hx COPD: Yes - pneumonia Hx Diabetes: Yes Hx Cancer: No Hx Dementia: Yes Hx Alzheimer's Disease: Yes Hx Memory Loss: Yes Hx Speech Problem: Yes Hx Dysphasia: Yes Hx Weakness: Yes Review of Systems All Other Systems: limited - by mental status and poor historian Physical Exam Vital Signs Date Time Temp Pulse Resp B/P (MAP) Pulse Ox O2 Delivery O2 Flow Rate FiO2 08/03/19 01:25 97.7 89 16 125/74 (91) 98 Nasal Cannula 2.0 General Appearance: alert, thin, Chronically Ill ENT: dry mucus membranes Neck: limited range of motion Respiratory: lungs clear Cardiovascular #1: no edema Gastrointestinal: soft, other - stoma patent, Gtube present. Musculoskeletal: decreased range of mation Neurologic: alert, responsive Psychiatric: depressed affect Skin: other - ulcers to lower extremity, no drainage Medical Decision Making Diagnostic Impression: Primary Impression: Malfunction of percutaneous endoscopic gastrostomy (PEG) tube Additional Impression: Alzheimer disease ER Course Patient presented for malfunctioning G-tube. Differential diagnosis include is not limited to G-tube obstruction, malposition, among others. Patient's G-tube was replaced after deflating balloon. Patient's G-tube was replaced with a 20 [place] G-tube with sterile technique. Balloon was inflated with 20 cc and secured at 4 cm. Patient tolerated this well. X-ray imaging of the abdomen was ordered after G-tube was replaced. Post procedure x-ray showed adequate G- tube placement. [facility]. Last Vital Signs Date Time Temp Pulse Resp B/P (MAP) Pulse Ox O2 Delivery O2 Flow Rate FiO2 08/03/19 01:25 97.7 89 16 125/74 (91) 98 Nasal Cannula 2.0 Status: improved Disposition: XFER SNF Condition: Stable Jung Díaz MD Aug 03, 2019 01:48
--- NOTE | 2019-08-03 02:29 | NUR ---
Spoke with Cameron at [facility]- aware of patient going back.
[2019-08-03 02:50] VITALS: BP 135/80
--- NOTE | 2019-08-03 02:50 | NUR ---
ED Nurse Note: pt cleared to be d/c per ERMD, pt discharge and summary of care paperwork given to ambulance personnel, endorsed care to ems staff. pt left via [facility]. gtube intact.
--- NOTE | 2019-08-03 03:49 | Diagnostic Imaging Report ---
EXAM: XR Abdomen, 2 Views CLINICAL HISTORY: TUBE PLCMT TECHNIQUE: Frontal view of the abdomen/pelvis with upright view of the abdomen. COMPARISON: No relevant prior studies available. FINDINGS: Limitations: Markedly limited exam due to patient positioning and with their hand overlying the abdomen. Gastrointestinal tract: Unremarkable. No dilation. Bones/joints: Unremarkable. Tubes, lines and devices: Contrast is seen injected through a presumed gastric tube, filling the stomach and proximal duodenum. IMPRESSION: 1. Markedly limited exam due to patient positioning and with their hand overlying the abdomen. 2. Contrast is seen injected through a presumed gastric tube, filling the stomach and proximal duodenum. Evaluation for extravasation is not possible on this limited and single view exam.
== END 2019-08-03 02:50 ==
LOC: EDUNIT# 01:15 → EDBD 01:15 → EMR 01:50
DX: K94.23 Gastrostomy malfunction (principal); G30.9 Alzheimer's disease, unspecified; F02.80 Dementia in other diseases classified elsewhere, unspecified severity, without behavioral disturbance, psychotic disturbance, mood disturbance, and anxiety; I10 Essential (primary) hypertension; J44.9 Chronic obstructive pulmonary disease, unspecified; E11.9 Type 2 diabetes mellitus without complications
CPT/HCPCS: 74018; 99283

== ENCOUNTER 2019-08-15 07:01 | Inpatient (IN) | payer MEDICARE, OTHER ==
[~2019-08-15] VITALS: Ht 167.6 cm; Wt 58.1 kg
[2019-08-15] VITALS (15 sets, daily range): BP systolic 98–153; BP diastolic 59–84
--- NOTE | 2019-08-15 07:10 | Emergency Room Report ---
History of Present Illness General Chief Complaint: Dyspnea/Respdistress Source: Medical Record, EMS Present Illness HPI This patient is brought in by EMS from a [facility] facility. He has a history of multiple chronic medical problems to include a recent admission for sepsis last month. He has a history of recurrent pneumonia. He has brought in by ambulance with a report that the patient was getting G-tube feedings and then vomited shortly thereafter and then developed dyspnea. Per report, when EMS arrived, he had an oxygen saturation in the 70s. He was placed on a nonrebreather mask and transported here with saturations in the low 90s. The patient has severe dementia and is unable to give any type of history at this time. Allergies: Coded Allergies: No Known Allergies (Unverified , 02/25/19) Patient History Past Medical History: see triage record, old chart reviewed, DM, HTN, CAD, dementia Past Surgical History: other - G-tube Social History: Denies: smoking, alcohol use, drug use Reviewed Nursing Documentation: PMH: Agreed; PSxH: Agreed Nursing Documentation-PMH Hx Hypertension: Yes Hx Asthma: No - hx resp failure and asp pneumonia Hx COPD: Yes - pneumonia Hx Diabetes: Yes Hx Cancer: No Hx Dementia: Yes Hx Alzheimer's Disease: Yes Hx Memory Loss: Yes Hx Speech Problem: Yes Hx Dysphasia: Yes Hx Weakness: Yes Review of Systems All Other Systems: limited Physical Exam Vital Signs Date Time Temp Pulse Resp B/P (MAP) Pulse Ox O2 Delivery O2 Flow Rate FiO2 08/15/19 06:56 101.1 145 24 90 Non-Rebreather 15.0 Sp02 EP Interpretation: reviewed, abnormal General Appearance: moderate distress, cachetic, thin, Chronically Ill Head: normocephalic, atraumatic ENT: normal pharynx, no angioedema Neck: normal inspection Respiratory: lungs clear, no wheezing, respiratory distress, accessory muscle use, other - Tachypnea, Dyspnea Cardiovascular #1: tachycardia, systolic murmur Gastrointestinal: normal inspection, non-distended, other - G-tube in place Musculoskeletal: other - Contracted, at baseline Neurologic: alert, other - Non-verbal at baseline. Psychiatric: anxious Skin: Decubitus/Ulcer, other - See RN skin exam Medical Decision Making Diagnostic Impression: Primary Impression: Severe sepsis Additional Impressions: Respiratory distress Aspiration pneumonia Pyelonephritis Lactic acidosis ER Course This patient presented in severe sepsis. On arrival he was also in respiratory distress. Patient was found to have a fever with a temp of 102. He also was found to have pyelonephritis and pneumonia. He was given broad-spectrum antibiotics and aggressive IV fluid resuscitation. The patient also was tachycardic and tachypneic. He was given Ativan for anxiety and morphine for pain. He was placed on BiPAP for tachypnea and increased work of breathing and initially was hypoxemic. I considered rapid sequence intubation, however, given the patient oxygen saturation and improvement with Ativan and morphine, I felt that this was unnecessary at this time. Further, the patient's ABG had improved significantly with noninvasive ventilation. Patient is admitted to the ICU stepdown for severe sepsis. This patient is critically ill. This patient required complex medical decision- making, aggressive intervention, extensive laboratory workup and monitoring. Critical care time: 40 minutes. Laboratory Tests Test 08/15/19 07:02 08/15/19 07:05 08/15/19 07:30 08/15/19 08:54 Arterial Blood pH 7.442 (7.350-7.450) 7.463 (7.350-7.450) Arterial Blood Partial Pressure CO2 34.9 mmHg (35.0-45.0) L 28.9 mmHg (35.0-45.0) L Arterial Blood Partial Pressure O2 68.0 mmHg (75.0-100.0) L 192.9 mmHg (75.0-100.0) H Arterial Blood HCO3 23.3 mmol/L (22.0-26.0) 20.2 mmol/L (22.0-26.0) L Arterial Blood Oxygen Saturation 92.5 % (95-100) L % (95-100) Arterial Blood Base Excess -0.3 (-2-2) -2.2 (-2-2) L Rhett Test Positive Positive White Blood Count 13.4 K/UL (4.8-10.8) H Red Blood Count 5.39 M/UL (4.70-6.10) Hemoglobin 12.6 G/DL (14.2-18.0) L Hematocrit 41.0 % (42.0-52.0) L Mean Corpuscular Volume 76 FL (80-99) L Mean Corpuscular Hemoglobin 23.4 PG (27.0-31.0) L Mean Corpuscular Hemoglobin Concent 30.8 G/DL (32.0-36.0) L Red Cell Distribution Width 19.3 % (11.6-14.8) H Platelet Count 395 K/UL (150-450) Mean Platelet Volume 6.2 FL (6.5-10.1) L Neutrophils (%) (Auto) 84.1 % (45.0-75.0) H Lymphocytes (%) (Auto) 8.9 % (20.0-45.0) L Monocytes (%) (Auto) 6.5 % (1.0-10.0) Eosinophils (%) (Auto) 0.0 % (0.0-3.0) Basophils (%) (Auto) 0.5 % (0.0-2.0) Urine Color Yellow Urine Appearance Cloudy Urine pH 7 (4.5-8.0) Urine Specific [place] 1.015 (1.005-1.035) Urine Protein 2+ (NEGATIVE) H Urine Glucose (UA) Negative (NEGATIVE) Urine Ketones Negative (NEGATIVE) Urine Blood 3+ (NEGATIVE) H Urine Nitrite Positive (NEGATIVE) H Urine Bilirubin Negative (NEGATIVE) Urine Urobilinogen Normal MG/DL (0.0-1.0) Urine Leukocyte Esterase 3+ (NEGATIVE) H Urine RBC 5-10 /HPF (0 - 0) H Urine WBC Tntc /HPF (0 - 0) H Urine Squamous Epithelial Cells Occasional /LPF Urine Bacteria Many /HPF (NONE) H Sodium Level 143 MMOL/L (136-145) Potassium Level 4.7 MMOL/L (3.5-5.1) Chloride Level 105 MMOL/L (98-107) Carbon Dioxide Level 27 MMOL/L (21-32) Anion Gap 11 mmol/L (5-15) Blood Urea Nitrogen 27 mg/dL (7-18) H Creatinine 1.0 MG/DL (0.55-1.30) Estimate Glomerular Filtration Rate mL/min (>60) Glucose Level 204 MG/DL (74-106) H Lactic Acid Level 4.60 mmol/L (0.4-2.0) H Calcium Level 9.3 MG/DL (8.5-10.1) Total Bilirubin 0.3 MG/DL (0.2-1.0) Aspartate Amino Transferase (AST) 37 U/L (15-37) Alanine Aminotransferase (ALT) 50 U/L (12-78) Alkaline Phosphatase 114 U/L (46-116) Total Creatine Kinase 77 U/L (26-308) Creatine Kinase MB 1.8 NG/ML (0.0-3.6) Creatine Kinase MB Relative Index 2.3 Troponin I 0.000 ng/mL (0.000-0.056) Total Protein 8.4 G/DL (6.4-8.2) H Albumin 2.4 G/DL (3.4-5.0) L Globulin 6.0 g/dL Albumin/Globulin Ratio 0.4 (1.0-2.7) L Laboratory Tests Test 08/15/19 07:02 08/15/19 07:05 08/15/19 07:30 Arterial Blood pH 7.442 (7.350-7.450) Arterial Blood Partial Pressure CO2 34.9 mmHg (35.0-45.0) L Arterial Blood Partial Pressure O2 68.0 mmHg (75.0-100.0) L Arterial Blood HCO3 23.3 mmol/L (22.0-26.0) Arterial Blood Oxygen Saturation 92.5 % (95-100) L Arterial Blood Base Excess -0.3 (-2-2) Rhett Test Positive White Blood Count 13.4 K/UL (4.8-10.8) H Red Blood Count 5.39 M/UL (4.70-6.10) Hemoglobin 12.6 G/DL (14.2-18.0) L Hematocrit 41.0 % (42.0-52.0) L Mean Corpuscular Volume 76 FL (80-99) L Mean Corpuscular Hemoglobin 23.4 PG (27.0-31.0) L Mean Corpuscular Hemoglobin Concent 30.8 G/DL (32.0-36.0) L Red Cell Distribution Width 19.3 % (11.6-14.8) H Platelet Count 395 K/UL (150-450) Mean Platelet Volume 6.2 FL (6.5-10.1) L Neutrophils (%) (Auto) 84.1 % (45.0-75.0) H Lymphocytes (%) (Auto) 8.9 % (20.0-45.0) L Monocytes (%) (Auto) 6.5 % (1.0-10.0) Eosinophils (%) (Auto) 0.0 % (0.0-3.0) Basophils (%) (Auto) 0.5 % (0.0-2.0) Urine Color Yellow Urine Appearance Cloudy Urine pH 7 (4.5-8.0) Urine Specific [place] 1.015 (1.005-1.035) Urine Protein 2+ (NEGATIVE) H Urine Glucose (UA) Negative (NEGATIVE) Urine Ketones Negative (NEGATIVE) Urine Blood 3+ (NEGATIVE) H Urine Nitrite Positive (NEGATIVE) H Urine Bilirubin Negative (NEGATIVE) Urine Urobilinogen Normal MG/DL (0.0-1.0) Urine Leukocyte Esterase 3+ (NEGATIVE) H Urine RBC 5-10 /HPF (0 - 0) H Urine WBC Tntc /HPF (0 - 0) H Urine Squamous Epithelial Cells Occasional /LPF Urine Bacteria Many /HPF (NONE) H Sodium Level 143 MMOL/L (136-145) Potassium Level 4.7 MMOL/L (3.5-5.1) Chloride Level 105 MMOL/L (98-107) Carbon Dioxide Level 27 MMOL/L (21-32) Anion Gap 11 mmol/L (5-15) Blood Urea Nitrogen 27 mg/dL (7-18) H Creatinine 1.0 MG/DL (0.55-1.30) Estimate Glomerular Filtration Rate mL/min (>60) Glucose Level 204 MG/DL (74-106) H Lactic Acid Level 4.60 mmol/L (0.4-2.0) H Calcium Level 9.3 MG/DL (8.5-10.1) Total Bilirubin 0.3 MG/DL (0.2-1.0) Aspartate Amino Transferase (AST) 37 U/L (15-37) Alanine Aminotransferase (ALT) 50 U/L (12-78) Alkaline Phosphatase 114 U/L (46-116) Total Creatine Kinase 77 U/L (26-308) Creatine Kinase MB 1.8 NG/ML (0.0-3.6) Creatine Kinase MB Relative Index 2.3 Troponin I 0.000 ng/mL (0.000-0.056) Total Protein 8.4 G/DL (6.4-8.2) H Albumin 2.4 G/DL (3.4-5.0) L Globulin 6.0 g/dL Albumin/Globulin Ratio 0.4 (1.0-2.7) L EKG Diagnostic Results Rate: tachycardiac Rhythm: other - S.tachycardia ST Segments: no acute changes Other Impression Qwaves in II, III, avF, V1, V2, V3 Rhythm Strip Diag. Results EP Interpretation: yes Rate: 140's Rhythm: other - PVC's, S. tachycardia Chest X-Ray Diagnostic Results Chest X-Ray Diagnostic Results : Chest X-Ray Ordered: Yes # of Views/Limited/Complete: 1 View Indication: Shortness of Breath EP Interpretation: Yes Interpretation: other - L. lung: LML and LLL opacification. Impression: Other - See above Electronically Signed by: Kalpana Rosario DO Last Vital Signs Date Time Temp Pulse Resp B/P (MAP) Pulse Ox O2 Delivery O2 Flow Rate FiO2 08/15/19 06:56 101.1 145 24 90 Non-Rebreather 15.0 Disposition: ADMITTED INPATIENT Condition: Critical Kalpana Rosario DO Aug 15, 2019 07:10
[2019-08-15] MEDS ORDERED: Meropenem 1 GM in NS 55 ML IVPB ONE (07:15)
[2019-08-15] MEDS ORDERED: Vancomycin 1 GM in NS 275 ML IVPB ONE (07:15)
[2019-08-15] MEDS ORDERED: Sodium Chloride 1,900 ML IVLG ONE (07:15)
[2019-08-15 07:29] LABS: BASOPHILS % (AUTO) 0.5 % (0.0-2.0); HEMOGLOBIN 12.6 G/DL (14.2-18.0); LYMPHOCYTES % (AUTO) 8.9 % (20.0-45.0); MEAN CORPUSCULAR VOLUME 76 FL (80-99); MONOCYTES % (AUTO) 6.5 % (1.0-10.0); NEUTROPHILS % (AUTO) 84.1 % (45.0-75.0); PLATELET COUNT 395 K/UL (150-450); RED BLOOD COUNT 5.39 M/UL (4.70-6.10); RED CELL DISTRIBUTION WIDTH 19.3 % (11.6-14.8); WHITE BLOOD COUNT 13.4 K/UL (4.8-10.8)
[2019-08-15] MEDS ORDERED: LORazepam Inj 2mg/ml 1ml IV ONE ×2 (07:45→08:15)
[2019-08-15 07:48] LABS: APPEARANCE,URINE CLOUDY; BILIRUBIN, URINE NEGATIVE (NEGATIVE); GLUCOSE, URINE (UA) NEGATIVE (NEGATIVE); KETONES,URINE NEGATIVE (NEGATIVE); LEUKOCYTE ESTERASE ,URINE 3+ (NEGATIVE); NITRITE,URINE POSITIVE (NEGATIVE); PH,URINE 7 (4.5-8.0); PROTEIN,URINE 2+ (NEGATIVE); UROBILINOGEN,URINE NORMAL MG/DL (0.0-1.0)
[2019-08-15 07:57] LABS: COLOR,URINE YELLOW
[2019-08-15] MEDS ORDERED: Acetaminophen 650mg/20.3ml GT ONE (08:00)
[2019-08-15] MEDS ORDERED: Acetaminophen 500mg (ES) tab ORAL ONE (08:00)
[2019-08-15 08:15] LABS: ANION GAP 11 mmol/L (5-15); BLOOD UREA NITROGEN 27 mg/dL (7-18); CALCIUM 9.3 MG/DL (8.5-10.1); CARBON DIOXIDE 27 MMOL/L (21-32); CHLORIDE 105 MMOL/L (98-107); POTASSIUM 4.7 MMOL/L (3.5-5.1); SODIUM 143 MMOL/L (136-145)
[2019-08-15 08:29] LABS: ALANINE AMINOTRANSFERASE 50 U/L (12-78); ALBUMIN 2.4 G/DL (3.4-5.0); ALBUMIN/GLOBULIN RATIO 0.4 (1.0-2.7); ALKALINE PHOSPHATASE 114 U/L (46-116); ASPARTATE AMINO TRANSFERASE 37 U/L (15-37); BILIRUBIN,TOTAL 0.3 MG/DL (0.2-1.0); CKMB 1.8 NG/ML (0.0-3.6); CREATINE KINASE 77 U/L (26-308)
[2019-08-15] MEDS ORDERED: Morphine Sulfate 4mg/ml Inj (IV USE ONLY) IVP ONE (09:00)
--- NOTE | 2019-08-15 10:18 | Diagnostic Imaging Report ---
Indication: Dyspnea Comparison: 07/12/2019 A single view chest radiograph was obtained. Findings: Again there is infiltrate in the left perihilar and basilar region. This appears slightly worse than on the prior occasion. The heart is normal in size. Aorta is ectatic and calcified. Bones are osteopenic. IMPRESSION: Left pulmonary infiltrate slightly worse compared to last occasion
[2019-08-15] MEDS: Meropenem 1 GM in NS 55 ML IVPB SCH ×2 (14:00→22:06)
[2019-08-15] MEDS ORDERED: Morphine Sulfate 2mg/ml Inj(IV/IM USE ONLY) IVP PRN (14:30)
[2019-08-15] MEDS: Dakin's 0.125% Soln (Quarter Strength) 16oz TOPIC SCH (16:43)
[2019-08-15] MEDS ORDERED: Acetaminophen 650mg/20.3ml GT PRN (19:15)
[2019-08-15] MEDS: Vancomycin 750mg/NS 275ml IVPB SCH ×2 (20:20)
[2019-08-15] MEDS: NovoLOG Insulin Flexpen SUBQ SCH (21:00)
--- NOTE | 2019-08-15 21:00 | Consultation ---
DATE OF CONSULTATION: 08/15/2019 PULMONARY CONSULTATION CONSULTING PHYSICIAN: Tim Andrade M.D. REFERRING PHYSICIAN: Ervin Mario M.D. HISTORY OF PRESENT ILLNESS: This is an 83-year-old male, who is well known to me. The patient with history of chronic aspiration, chronic respiratory failure, and multiple intubations in the past. The patient is a G-tube fed. The patient was brought in by ambulance due to prominence of likely an acute aspiration. The patient was desaturated to 70%. The patient placed on non-rebreather and then thereafter on BiPAP. The patient with significant dementia, contractures, and essentially bedbound. The patient has had multiple admissions in the past for sepsis. Apparently had been on hospice for short period of time and now admitted for further care. The care discussed with the ER physician as well as with the primary care doctor. The patient overall appears to be somewhat tachypneic, but otherwise fairly stable. The patient was admitted to the ICU for further care and management and further evaluation. The patient seen in the emergency room and care was discussed. PAST MEDICAL HISTORY: Notable for history of respiratory failure, history of aspiration, history of sepsis, history of COPD, history of dementia, history of contractures, history of G-tube, and history significant of dysphagia. MEDICATIONS: Reviewed. ALLERGIES: Reviewed. REVIEW OF SYSTEMS: Unobtainable due to the patient's present state. PHYSICAL EXAMINATION: GENERAL: The patient is an ill-appearing male, chronically and acutely ill. VITAL SIGNS: Blood pressure 114/80, temperature is 98, saturations 99%, respiratory rate is 21 to 26. HEENT: Negative. Mucous membranes are dry. NECK: Supple. LUNGS: Coarse breath sounds, moderate air entry. CARDIAC: S1, S2. Somewhat tachycardic at present without murmurs, rubs, or gallops. ABDOMEN: Overall soft and nontender. G-tube in place. EXTREMITIES: No cyanosis or clubbing. No significant contractures. NEUROLOGICAL: Poorly responsive. SKIN: Noted and reviewed. LABORATORY AND DIAGNOSTIC DATA: Lab data reviewed. White count 13, hemoglobin 12.6, hematocrit 41, platelets of 395. Chemistry noted, BUN 27, creatinine 1. Albumin 2.4. Lactic acid elevated at 3.7. Arterial blood gases 7.46, 28, 192. Chest x-ray with evidence of a pulmonary infiltrate. IMPRESSION: 1. Respiratory failure, acute. 2. Hypoxemia. 3. Pneumonia, possible aspiration. 4. History of sepsis, possible recurrence of sepsis likely mild dehydration. 5. Severe protein-calorie malnutrition, G-tube. 6. Chronic encephalopathy. RECOMMENDATIONS: Supportive care. Consider advance directives. IV antibiotics. Respiratory care. BiPAP as needed. Monitor arterial blood gases. DVT prophylaxis. Close followup address with significant aspiration and deterioration. We will follow clinically and recommend further and assist with disposition. Pending followup care. iTm Andrade M.D. DR: MINNIE JOB#: [id number] CC: HUONG
[2019-08-15] MEDS: Pantoprazole Inj IVP SCH (21:14)
[2019-08-15] MEDS: Heparin 5000 units/ml inj SUBQ SCH (21:15)
[2019-08-15] MEDS: D5 1/2NS 1,000 ML IV SCH (22:07)
[2019-08-16] VITALS (18 sets, daily range): BP systolic 110–137; BP diastolic 49–71
[2019-08-16] MEDS: Albuterol/Ipratropium 3ml neb HHN SCH ×4 (01:34→19:49)
[2019-08-16 05:10] LABS: HEMOGLOBIN 8.7 G/DL (14.2-18.0); MEAN CORPUSCULAR VOLUME 77 FL (80-99); PLATELET COUNT 286 K/UL (150-450); RED BLOOD COUNT 3.78 M/UL (4.70-6.10); RED CELL DISTRIBUTION WIDTH 19.2 % (11.6-14.8); WHITE BLOOD COUNT 11.1 K/UL (4.8-10.8)
--- NOTE | 2019-08-16 05:15 | Consultation ---
DATE OF CONSULTATION: 08/15/2019 INFECTIOUS DISEASE CONSULTATION This consult is for coverage of Dr. Gomez. CONSULTING PHYSICIAN: Lev Pardo M.D. PRIMARY ATTENDING PHYSICIAN: Ervin Mario M.D. REASON FOR CONSULTATION: Sepsis, aspiration pneumonia, and UTI. HISTORY OF PRESENT ILLNESS: This is an 83-year-old white male who is a senior living resident, admitted today. According to the ER doctor note, after G-tube feeding, the patient has started vomiting and become hypoxic and transferred to the hospital. In the hospital, he had temperature of 101.2 and leukocytosis. He was hypoxic and started on BiPAP, and that subsequently changed to oxygen by a mask. The patient is not a source of history. PAST MEDICAL HISTORY: Significant for Alzheimer dementia, diabetes, hypertension, multiple pressure ulcers, functional quadriplegia, BPH, anemia, atrial fibrillation, history of multiple admissions to the hospital in recent months. ALLERGIES: No known drug allergies. MEDICATIONS: , lorazepam, Tylenol, got a dose of meropenem and vancomycin in the ER. SOCIAL HISTORY: skilled nursing resident, , had a conservator. REVIEW OF SYSTEMS: Unobtainable. PHYSICAL EXAMINATION: VITAL SIGNS: T-max 101.2, current temperature 97.1, pulse 109, blood pressure is 106/68. GENERAL APPEARANCE: Seems to be thin. HEAD AND NECK: Getting oxygen by nasal cannula. HEART: Tachycardic. LUNGS: Bilateral rhonchi. Seems to have labored breathing. ABDOMEN: Soft. G-tube in place. EXTREMITIES: Has no edema. He has muscle atrophy in legs. SKIN: Multiple pressure ulcers in the left lower extremity and back, compared to previous admission are improving. LABORATORY DATA: Lactic acid is 3.7. Sodium 143, potassium 4.7, chloride 105, bicarbonate 27, BUN 27, creatinine 1, and glucose 204. Albumin is 2.4. Chest x-ray, left pulmonary infiltrate is slightly worse compared to previous admission. WBC is 13.4, hemoglobin 2.6, hematocrit 41, platelet is 395,000. At the time of admission showed pO2 of 68. UA showed nitrite positive, leukocyte esterase 3+, wbc's too numerous to count, rbc's 5 to 10. IMPRESSION: Sepsis with leukocytosis, fever, tachycardia, tachypnea. Seems to have aspiration pneumonia and UTI. He has functional quadriplegia, BPH, multiple pressure ulcers that are healing, advanced dementia, diabetes mellitus, and hypertension. RECOMMENDATION: We will continue with vancomycin and meropenem. The patient has a history of Klebsiella and ESBL in the previous admission. We will follow up the cultures. At the end of my exam, I thank Dr. Mario for involving me in the care of this patient. Lev Pardo M.D. DR: VLAD JOB#: [id number] CC: HUONG
[2019-08-16 05:59] LABS: ALANINE AMINOTRANSFERASE 31 U/L (12-78); ALBUMIN 1.7 G/DL (3.4-5.0); ANION GAP 5 mmol/L (5-15); ASPARTATE AMINO TRANSFERASE 23 U/L (15-37); BLOOD UREA NITROGEN 18 mg/dL (7-18); CALCIUM 8.3 MG/DL (8.5-10.1); CARBON DIOXIDE 28 MMOL/L (21-32); CHLORIDE 114 MMOL/L (98-107); CREATININE 0.6 MG/DL (0.55-1.30); POTASSIUM 4.1 MMOL/L (3.5-5.1); SODIUM 147 MMOL/L (136-145)
[2019-08-16] MEDS: Meropenem 1 GM in NS 55 ML IVPB SCH ×3 (06:10→22:11)
[2019-08-16] MEDS: NovoLOG Insulin Flexpen SUBQ SCH ×3 (06:10→16:27)
[2019-08-16 06:21] LABS: ALKALINE PHOSPHATASE 78 U/L (46-116); BILIRUBIN,TOTAL 0.4 MG/DL (0.2-1.0); PHOSPHORUS 2.3 MG/DL (2.5-4.9)
--- NOTE | 2019-08-16 07:01 | Consultation ---
Consult Note Assessment/Plan A/ 1) Severe LE contractures 2) Extensive left foot and leg wounds 3) Bedbound 4) PAD P/ 1) Cont wound care. Nothing surgical from my standpoint. May benefit from above knee amputations, especially for LLE 2) Will follow Larry Mack DPM Aug 16, 2019 07:01
[2019-08-16] MEDS: Pantoprazole Inj IVP SCH ×2 (08:57→20:26)
[2019-08-16] MEDS: Dakin's 0.125% Soln (Quarter Strength) 16oz TOPIC SCH (08:57)
[2019-08-16] MEDS: Vancomycin 750mg/NS 275ml IVPB SCH ×2 (08:57)
[2019-08-16] MEDS: Heparin 5000 units/ml inj SUBQ SCH ×2 (08:59→20:28)
--- NOTE | 2019-08-16 10:51 | Consultation ---
History of Present Illness General Date patient seen: Aug 16, 2019 Chief Complaint: Dyspnea/Respdistress Present Illness HPI This is a 83-year-old male well-known to me with multiple medical comorbidities who is taking care of extensively in the past before that presents with sepsis respiratory distress and admitted to the intensive care unit for care. During this admission identified to have worsening wounds which she has had a history of and requires care and management. Surgery called to help assist with patient 's care and management. Patient seen, patient evaluated, chart reviewed Allergies: Coded Allergies: No Known Allergies (Unverified , 02/25/19) Medication History Scheduled Ascorbic Acid* (Ascorbic Acid*), 250 MG GT BID, (Reported) Chlorhexidine Gluconate* (Hibiclens*), 1 APPLIC TOPIC DAILY@2000 Heparin Sod (Porcine) (Heparin Sodium*), 5,000 UNITS SUBQ EVERY 12 HOURS, ( Reported) Meropenem-0.9% Sodium Chloride (Meropenem-0.9% NaCl 1 Gram/50), 1 GM IV Q8HR, ( Reported) Metoprolol Tartrate* (Metoprolol Tartrate*), 25 MG GT EVERY 12 HOURS, (Reported) Pantoprazole* (Pantoprazole*), 40 MG GT DAILY, (Reported) Sodium Hypochlorite (Dakin's), 1 APPLIC TOPIC DAILY Trimethoprim/Sulfamethoxazole 160/800* (Bactrim Ds Tablet*), 1 TAB ORAL TWICE A DAY, (Reported) Zinc Sulfate (Zinc Sulfate*), 220 MG GT DAILY, (Reported) Scheduled PRN Albuterol Sulfate* (Albuterol Sulfate Hhn*), 3 ML INH Q4H PRN for Shortness of Breath, (Reported) Ipratropium [place] 0.5MG/2.5ML (Ipratropium [place] 0.5MG/2.5ML), 0.5 MG HHN Q4HR PRN for Shortness of Breath, (Reported) Patient History Limited by: medical condition History Provided By: Medical Record, PMD Healthcare decision maker Resuscitation status Full Code Advanced Directive on File Past Medical/Surgical History Past Medical/Surgical History: (1) Sepsis (2) Sinus tachycardia (3) Hypokalemia (4) Hypokalemia (5) Anemia (6) Dysphagia (7) Gastroparesis (8) Encounter for PEG (percutaneous endoscopic gastrostomy) (9) Malfunction of gastrostomy tube (10) Proteus septicemia (11) Decubitus ulcer of trochanteric region of left hip (12) Ulcer of lower extremity excluding decubitus ulcer (13) Protein-calorie malnutrition, severe (14) Alzheimer disease (15) Aspiration pneumonia (16) Pyelonephritis (17) Severe sepsis (18) Pneumonia (19) Lactic acidosis (20) Respiratory distress Review of Systems ROS Narrative Unable to obtain given patient's medical condition he is nonverbal baseline currently Physical Exam General Appearance: mild distress Lines, tubes and drains: peripheral HEENT: mucous membranes moist Neck: other Respiratory/Chest: other Abdomen: feeding tube Extremities: inflammation, slow capillary refill - Directed multiple wounds slow cap refill contracted, other Skin Exam: other Neurologic: other Last 24 Hour Vital Signs Date Time Temp Pulse Resp B/P (MAP) Pulse Ox O2 Delivery O2 Flow Rate FiO2 08/16/19 10:00 80 22 120/58 (78) 99 80 08/16/19 09:00 89 22 120/58 (78) 99 89 08/16/19 08:00 98.1 90 22 114/49 (70) 99 90 08/16/19 08:00 Venturi Mask 8.0 08/16/19 07:15 87 19 99 Venturi Mask 8.0 40 83 23 99 08/16/19 07:05 99 Venturi Mask 8.0 40 08/16/19 07:00 90 21 130/60 (83) 99 08/16/19 06:00 83 24 113/50 (71) 99 08/16/19 05:00 98.0 87 24 120/63 (82) 99 08/16/19 04:00 98.0 88 24 123/63 (83) 99 08/16/19 04:00 Venturi Mask 8.0 08/16/19 04:00 88 08/16/19 03:00 90 22 113/60 (77) 99 08/16/19 02:00 93 21 112/61 (78) 100 08/16/19 01:30 92 21 100 Venturi Mask 12.0 50 91 23 100 08/16/19 01:00 83 24 131/69 (89) 99 08/16/19 00:00 97 08/16/19 00:00 Venturi Mask 8.0 08/16/19 00:00 98.2 97 24 110/57 (74) 99 08/15/19 23:00 97 24 110/60 (77) 99 08/15/19 23:00 97 24 109/72 (84) 99 08/15/19 22:00 104 24 109/72 (84) 99 08/15/19 21:00 104 24 109/72 (84) 99 08/15/19 20:15 100 Venturi Mask 12.0 50 08/15/19 20:00 106 08/15/19 20:00 98.2 106 24 126/65 (85) 99 08/15/19 20:00 Venturi Mask 8.0 08/15/19 19:00 108 24 112/72 (85) 99 08/15/19 18:00 102 21 119/60 (79) 100 08/15/19 17:00 98.0 107 26 117/72 (87) 99 08/15/19 16:00 110 26 111/59 (76) 97 08/15/19 16:00 Venturi Mask 8.0 08/15/19 16:00 122 08/15/19 15:55 98.0 08/15/19 15:00 118 21 153/74 (100) 92 08/15/19 14:00 118 29 145/84 (104) 96 08/15/19 13:00 98.0 112 29 99/59 (72) 96 08/15/19 12:00 112 08/15/19 11:44 116 08/15/19 11:30 98.0 114 24 138/70 (92) 94 08/15/19 11:30 Venturi Mask 8.0 08/15/19 11:15 109 08/15/19 11:00 108 22 99 Intake and Output 08/15/19 08/16/19 19:00 07:00 Intake Total 165 ml 930 ml Output Total 210 ml 490 ml Balance -45 ml 440 ml Intake IV Total 165 ml 930 ml Output Urine Total 210 ml 490 ml # Bowel Movements 2 Laboratory Tests Test 08/15/19 17:45 08/16/19 04:20 08/16/19 08:22 Lactic Acid Level 1.60 mmol/L (0.4-2.0) White Blood Count 11.1 K/UL (4.8-10.8) H Red Blood Count 3.78 M/UL (4.70-6.10) L Hemoglobin 8.7 G/DL (14.2-18.0) #L Hematocrit 29.0 % (42.0-52.0) L Mean Corpuscular Volume 77 FL (80-99) L Mean Corpuscular Hemoglobin 23.1 PG (27.0-31.0) L Mean Corpuscular Hemoglobin Concent 30.1 G/DL (32.0-36.0) L Red Cell Distribution Width 19.2 % (11.6-14.8) H Platelet Count 286 K/UL (150-450) Mean Platelet Volume 6.7 FL (6.5-10.1) Neutrophils (%) (Auto) % (45.0-75.0) Lymphocytes (%) (Auto) % (20.0-45.0) Monocytes (%) (Auto) % (1.0-10.0) Eosinophils (%) (Auto) % (0.0-3.0) Basophils (%) (Auto) % (0.0-2.0) Sodium Level 147 MMOL/L (136-145) H Potassium Level 4.1 MMOL/L (3.5-5.1) Chloride Level 114 MMOL/L (98-107) H Carbon Dioxide Level 28 MMOL/L (21-32) Anion Gap 5 mmol/L (5-15) Blood Urea Nitrogen 18 mg/dL (7-18) Creatinine 0.6 MG/DL (0.55-1.30) Estimat Glomerular Filtration Rate mL/min (>60) Glucose Level 90 MG/DL (74-106) # Calcium Level 8.3 MG/DL (8.5-10.1) L Phosphorus Level 2.3 MG/DL (2.5-4.9) L Magnesium Level 1.8 MG/DL (1.8-2.4) Total Bilirubin 0.4 MG/DL (0.2-1.0) Aspartate Amino Transf (AST/SGOT) 23 U/L (15-37) Alanine Aminotransferase (ALT/SGPT) 31 U/L (12-78) Alkaline Phosphatase 78 U/L (46-116) Total Protein 6.2 G/DL (6.4-8.2) L Albumin 1.7 G/DL (3.4-5.0) L Globulin 4.5 g/dL Arterial Blood pH 7.441 (7.350-7.450) Arterial Blood Partial Pressure CO2 39.7 mmHg (35.0-45.0) Arterial Blood Partial Pressure O2 95.0 mmHg (75.0-100.0) Arterial Blood HCO3 26.4 mmol/L (22.0-26.0) H Arterial Blood Oxygen Saturation 97.2 % (95-100) Arterial Blood Base Excess 2.2 (-2-2) H Rhett Test Positive Height (Feet): 5 Height (Inches): 6.00 Weight (Pounds): 110 Medications Current Medications Medications (Trade) Dose Ordered Sig/Mckenzie Route PRN Reason Start Time Stop Time Status Last Admin Dose Admin Acetaminophen (Tylenol) 500 mg Q6H PRN GT Mild Pain/Temp > 100.5 08/15/19 19:15 09/14/19 19:14 Albuterol/ Ipratropium (Albuterol/ Ipratropium) 3 ml Q6HRT HHN 08/16/19 01:00 08/21/19 00:59 08/16/19 07:05 Dextrose (Dextrose 50%) 25 ml Q30M PRN IV Hypoglycemia 08/15/19 19:15 09/14/19 19:14 Dextrose (Dextrose 50%) 50 ml Q30M PRN IV Hypoglycemia 08/15/19 19:15 09/14/19 19:14 Dextrose/Sodium Chloride 1,000 ml @ 75 mls/hr [id number] IV 08/15/19 21:45 09/14/19 21:44 08/15/19 22:07 Heparin Sodium (Porcine) (Heparin 5000 units/ml) 5,000 units EVERY 12 HOURS SUBQ 08/15/19 21:00 09/14/19 20:59 08/16/19 08:59 Insulin Aspart (NovoLOG) BEFORE MEALS AND HS SUBQ 08/15/19 21:00 09/14/19 20:59 Meropenem 1 gm/ Sodium Chloride 55 ml @ 110 mls/hr Q8HR IVPB 08/15/19 14:00 08/20/19 13:59 08/16/19 06:10 Morphine Sulfate (Morphine Sulfate) 2 mg Q2H PRN IVP For Pain 08/15/19 14:30 08/22/19 14:29 08/15/19 15:25 Pantoprazole (Protonix) 40 mg EVERY 12 HOURS IVP 08/15/19 21:00 09/14/19 20:59 08/16/19 08:57 Sodium Hypochlorite (Dakin's Quarter Strength) 1 applic DAILY TOPIC 08/15/19 15:00 09/14/19 14:59 08/16/19 08:57 Vancomycin HCl (Vanco rx to dose) 1 ea DAILY PRN MISC Per rx protocol 08/15/19 12:00 09/14/19 11:59 Vancomycin HCl 750 mg/Sodium Chloride 275 ml @ 183.333 mls/hr Q12HR@0800,1999 IVPB 08/15/19 20:00 08/20/19 19:59 08/16/19 08:57 Assessment/Plan Problem List: (1) Respiratory distress ICD Codes: R06.03 - Acute respiratory distress SNOMED: 761441659 (2) Sepsis Assessment & Plan: leukocytosis lactic acidosis anemia on abx in ICU cont current care cxr noted ICD Codes: A41.9 - Sepsis, unspecified organism SNOMED: 53593725 (3) Protein-calorie malnutrition, severe ICD Codes: E43 - Unspecified severe protein-calorie malnutrition SNOMED: 315717289, 362206642, 943928680 (4) Decubitus ulcer of trochanteric region of left hip Assessment & Plan: Pt presented on admission with contractures, multiple pressure injuries. Hyperpigmentation noted to sacrum from previous pressure injury. Full thickness pressure injury L trochanteric with undermining. Base of wound has 90% burgess slough. Bone is palpable. Wound is malodorous.(L)6cm x (W)4cm x (D) 2cm , Undermining clockwise 12-12 by 3cm @6o'clock. Small amt of purulent brown exudate noted. Resolving pressure injury L ischium. Dry brown eschar with surrounding pink epithelial borders.(L)1cm x (W)1cm. DTPI R ischium . Base of wound is maroon ,fluctuant with red tinged margins. Wound is within previously resolved wound . surrounding hyperpigmentation with scarring. Resolving Full thickness pressure injury idalia R tibia . Base of wound has pink granulation. Edges are adherent and pink. No odor or exudate noted.(L) 5.5cm x (W)0.6cm. Resolving pressure injury plantar R hallux ,Base of wound moist-viable with surrounding pink epithelial. (L)1cm x (W)1.4cm. Full thickness wound lateral L foot extending from base of L 5th metatarsal to L heel and plantar L heel (L)4.5cm x (W)18.5cm. Base of wound has scattered slough ,90% pink granulation.Edges are macerated.Wound is malodorous. Full thickness pressure injury L hallux and plantar aspect. Base of wound has 100% soft necrosis. Wound is malodorous. (L)6.5cm x (W)5.5cm. Tips of L 2nd 3rd and 4th metatarsals has soft necrosis. Full thickness sacral pressure injury noted. Base of wound with some pink granulation and some slough .edges adherent to base of wound. Brown discoloration without fluctuance /induration noted periwound. 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 Base of wound moist-pink , bone is palpable. Periwound is dark without erythema or induration with undermining Full thickness stage 4 pressure injury L ischium .Base of wound some pink granulation and some slough ,erythematous borders. Periwound dark and indurated. Scrotal area area red. Full thickness pressure injury base of scrotum. Base of wound has sloth. Full thickness wound idalia R tibia. [place] granulation at base of wound. Edges adherent. No odor or exudate noted. Periwound without erythema or elevation in skin temp Full thickness wound lateral/plantar L foot. [place] granulation at base of wound with scattered slough.Bone is palpable. Mild odor noted .Small amt seropurulent exudate noted. Edges macerated. Periwound is fluctuant. L st metatarsal flaccid. Full thickness ulcer noted to plantar L foot. Base of wound moist -viable with pink epithelial borders. Periwound is fluctuant. Small amt serous exudate noted. Full thickness wound medial L foot. slough at base of wound,. Macerated borders. Mild odor noted. Tx.Plan: Cleanse all wounds Buttocks with Dakin's 0.125% daysi. Apply Dakin's moist gauze to wounds. Cover with Optifoam drsgs. Cleanse wounds L foot with Dakin's 0.125% daysi. Apply Dakin's moist gauze to wounds. Cover with ABD pads and wrap with Kerlix daily and prn. Cleanse wounds R tibia, and R foot with Dakin's 0.125% daysi. Apply Dakin's moist gauze cover with Abd pads and wrap with Kerlix daily and prn. Apply Moisture Barrier Paste to wound on scrotum. Cover with Optifoam drsg. Daily and prn. APM/AKVON Mattress overlay. Reposition at least every 2hours or as tolerated. Place pillow between knees. Off-load heels with pillow. ICD Codes: L89.229 - Pressure ulcer of left hip, unspecified stage SNOMED: 795767881 (5) Ulcer of lower extremity excluding decubitus ulcer Assessment & Plan: appreciate podiatry input thank you ICD Codes: L97.909 - Non-pressure chronic ulcer of unspecified part of unspecified lower leg with unspecified severity SNOMED: 052215906 Rios Quiñones Aug 16, 2019 10:51
--- NOTE | 2019-08-16 11:19 | Infectious Diseases Prog Note ---
Assessment/Plan Assessment/Plan antibiotics : vancomycin iv meropenem A 1. gram negative UTI 2. aspiration pneumonia 3. leucocytosis improving 4. decubitus ulcers 5. diabetes mellitus 6. hypertension P 1. continue iv vancomycin, meropenem 2. will follow up cultures Subjective ROS Limited/Unobtainable: Yes Allergies: Coded Allergies: No Known Allergies (Unverified , 02/25/19) Objective Vital Signs Last 24 Hour Vital Signs Date Time Temp Pulse Resp B/P (MAP) Pulse Ox O2 Delivery O2 Flow Rate FiO2 08/16/19 10:00 80 22 120/58 (78) 99 80 08/16/19 09:00 89 22 120/58 (78) 99 89 08/16/19 08:00 98.1 90 22 114/49 (70) 99 90 08/16/19 08:00 Venturi Mask 8.0 08/16/19 07:15 87 19 99 Venturi Mask 8.0 40 83 23 99 08/16/19 07:05 99 Venturi Mask 8.0 40 08/16/19 07:00 90 21 130/60 (83) 99 08/16/19 06:00 83 24 113/50 (71) 99 08/16/19 05:00 98.0 87 24 120/63 (82) 99 08/16/19 04:00 98.0 88 24 123/63 (83) 99 08/16/19 04:00 Venturi Mask 8.0 08/16/19 04:00 88 08/16/19 03:00 90 22 113/60 (77) 99 08/16/19 02:00 93 21 112/61 (78) 100 08/16/19 01:30 92 21 100 Venturi Mask 12.0 50 91 23 100 08/16/19 01:00 83 24 131/69 (89) 99 08/16/19 00:00 97 08/16/19 00:00 Venturi Mask 8.0 08/16/19 00:00 98.2 97 24 110/57 (74) 99 08/15/19 23:00 97 24 110/60 (77) 99 08/15/19 23:00 97 24 109/72 (84) 99 08/15/19 22:00 104 24 109/72 (84) 99 08/15/19 21:00 104 24 109/72 (84) 99 08/15/19 20:15 100 Venturi Mask 12.0 50 08/15/19 20:00 106 08/15/19 20:00 98.2 106 24 126/65 (85) 99 08/15/19 20:00 Venturi Mask 8.0 08/15/19 19:00 108 24 112/72 (85) 99 08/15/19 18:00 102 21 119/60 (79) 100 08/15/19 17:00 98.0 107 26 117/72 (87) 99 08/15/19 16:00 110 26 111/59 (76) 97 08/15/19 16:00 Venturi Mask 8.0 08/15/19 16:00 122 08/15/19 15:55 98.0 08/15/19 15:00 118 21 153/74 (100) 92 08/15/19 14:00 118 29 145/84 (104) 96 08/15/19 13:00 98.0 112 29 99/59 (72) 96 08/15/19 12:00 112 08/15/19 11:44 116 08/15/19 11:30 98.0 114 24 138/70 (92) 94 08/15/19 11:30 Venturi Mask 8.0 08/15/19 11:15 109 Height (Feet): 5 Height (Inches): 6.00 Weight (Pounds): 110 Respiratory/Chest: lungs clear Cardiovascular: normal rate, no gallop/murmur Extremities: no edema, other - contracted Microbiology Date/Time Source Procedure Growth Status 08/15/19 07:30 Urine,Clean Catch Urine Culture - Preliminary Gram Negative Bacillus 1 Resulted Laboratory Tests Test 08/15/19 17:45 08/16/19 04:20 08/16/19 08:22 Lactic Acid Level 1.60 mmol/L (0.4-2.0) White Blood Count 11.1 K/UL (4.8-10.8) H Red Blood Count 3.78 M/UL (4.70-6.10) L Hemoglobin 8.7 G/DL (14.2-18.0) #L Hematocrit 29.0 % (42.0-52.0) L Mean Corpuscular Volume 77 FL (80-99) L Mean Corpuscular Hemoglobin 23.1 PG (27.0-31.0) L Mean Corpuscular Hemoglobin Concent 30.1 G/DL (32.0-36.0) L Red Cell Distribution Width 19.2 % (11.6-14.8) H Platelet Count 286 K/UL (150-450) Mean Platelet Volume 6.7 FL (6.5-10.1) Neutrophils (%) (Auto) % (45.0-75.0) Lymphocytes (%) (Auto) % (20.0-45.0) Monocytes (%) (Auto) % (1.0-10.0) Eosinophils (%) (Auto) % (0.0-3.0) Basophils (%) (Auto) % (0.0-2.0) Sodium Level 147 MMOL/L (136-145) H Potassium Level 4.1 MMOL/L (3.5-5.1) Chloride Level 114 MMOL/L (98-107) H Carbon Dioxide Level 28 MMOL/L (21-32) Anion Gap 5 mmol/L (5-15) Blood Urea Nitrogen 18 mg/dL (7-18) Creatinine 0.6 MG/DL (0.55-1.30) Estimat Glomerular Filtration Rate mL/min (>60) Glucose Level 90 MG/DL (74-106) # Calcium Level 8.3 MG/DL (8.5-10.1) L Phosphorus Level 2.3 MG/DL (2.5-4.9) L Magnesium Level 1.8 MG/DL (1.8-2.4) Total Bilirubin 0.4 MG/DL (0.2-1.0) Aspartate Amino Transf (AST/SGOT) 23 U/L (15-37) Alanine Aminotransferase (ALT/SGPT) 31 U/L (12-78) Alkaline Phosphatase 78 U/L (46-116) Total Protein 6.2 G/DL (6.4-8.2) L Albumin 1.7 G/DL (3.4-5.0) L Globulin 4.5 g/dL Arterial Blood pH 7.441 (7.350-7.450) Arterial Blood Partial Pressure CO2 39.7 mmHg (35.0-45.0) Arterial Blood Partial Pressure O2 95.0 mmHg (75.0-100.0) Arterial Blood HCO3 26.4 mmol/L (22.0-26.0) H Arterial Blood Oxygen Saturation 97.2 % (95-100) Arterial Blood Base Excess 2.2 (-2-2) H Rhett Test Positive Current Medications Medications (Trade) Dose Ordered Sig/Mckenzie Route PRN Reason Start Time Stop Time Status Last Admin Dose Admin Acetaminophen (Tylenol) 500 mg Q6H PRN GT Mild Pain/Temp > 100.5 08/15/19 19:15 09/14/19 19:14 Albuterol/ Ipratropium (Albuterol/ Ipratropium) 3 ml Q6HRT HHN 08/16/19 01:00 08/21/19 00:59 08/16/19 07:05 Dextrose (Dextrose 50%) 25 ml Q30M PRN IV Hypoglycemia 08/15/19 19:15 09/14/19 19:14 Dextrose (Dextrose 50%) 50 ml Q30M PRN IV Hypoglycemia 08/15/19 19:15 09/14/19 19:14 Dextrose/Sodium Chloride 1,000 ml @ 75 mls/hr [id number] IV 08/15/19 21:45 09/14/19 21:44 08/15/19 22:07 Heparin Sodium (Porcine) (Heparin 5000 units/ml) 5,000 units EVERY 12 HOURS SUBQ 08/15/19 21:00 09/14/19 20:59 08/16/19 08:59 Insulin Aspart (NovoLOG) BEFORE MEALS AND HS SUBQ 08/15/19 21:00 09/14/19 20:59 Meropenem 1 gm/ Sodium Chloride 55 ml @ 110 mls/hr Q8HR IVPB 08/15/19 14:00 08/20/19 13:59 08/16/19 06:10 Morphine Sulfate (Morphine Sulfate) 2 mg Q2H PRN IVP For Pain 08/15/19 14:30 08/22/19 14:29 08/15/19 15:25 Pantoprazole (Protonix) 40 mg EVERY 12 HOURS IVP 08/15/19 21:00 09/14/19 20:59 08/16/19 08:57 Sodium Hypochlorite (Dakin's Quarter Strength) 1 applic DAILY TOPIC 08/15/19 15:00 09/14/19 14:59 08/16/19 08:57 Vancomycin HCl (Vanco rx to dose) 1 ea DAILY PRN MISC Per rx protocol 08/15/19 12:00 09/14/19 11:59 Vancomycin HCl 750 mg/Sodium Chloride 275 ml @ 183.333 mls/hr Q12HR@0800,1999 IVPB 08/15/19 20:00 08/20/19 19:59 08/16/19 08:57 Manan Gomez MD Aug 16, 2019 11:19
[2019-08-16] MEDS: D5 1/2NS 1,000 ML IV SCH ×2 (11:22→17:15)
--- NOTE | 2019-08-16 13:24 | History & Physical ---
History of Present Illness General Reason for Hospitalization: Dyspnea/Respdistress Present Illness Allergies: Coded Allergies: No Known Allergies (Unverified , 02/25/19) Medication History Scheduled Ascorbic Acid* (Ascorbic Acid*), 250 MG GT BID, (Reported) Chlorhexidine Gluconate* (Hibiclens*), 1 APPLIC TOPIC DAILY@2000 Heparin Sod (Porcine) (Heparin Sodium*), 5,000 UNITS SUBQ EVERY 12 HOURS, ( Reported) Meropenem-0.9% Sodium Chloride (Meropenem-0.9% NaCl 1 Gram/50), 1 GM IV Q8HR, ( Reported) Metoprolol Tartrate* (Metoprolol Tartrate*), 25 MG GT EVERY 12 HOURS, (Reported) Pantoprazole* (Pantoprazole*), 40 MG GT DAILY, (Reported) Sodium Hypochlorite (Dakin's), 1 APPLIC TOPIC DAILY Trimethoprim/Sulfamethoxazole 160/800* (Bactrim Ds Tablet*), 1 TAB ORAL TWICE A DAY, (Reported) Zinc Sulfate (Zinc Sulfate*), 220 MG GT DAILY, (Reported) Scheduled PRN Albuterol Sulfate* (Albuterol Sulfate Hhn*), 3 ML INH Q4H PRN for Shortness of Breath, (Reported) Ipratropium [place] 0.5MG/2.5ML (Ipratropium [place] 0.5MG/2.5ML), 0.5 MG HHN Q4HR PRN for Shortness of Breath, (Reported) Patient History Healthcare decision maker Resuscitation status Full Code Advanced Directive on File Review of Systems Review of Symptoms Mr. Smith is nonverbal and unresponsive. Physical Exam Physical Exam General appearance: severely cachetic, responsive to [id number] voice/ confused/nonverbal Head: Normocephalic, without obvious abnormality, atraumatic Eyes: PERRLA Throat: Lips, mucosa, and tongue dry/mouth open. Venturi mask in place Neck: supple, symmetrical, trachea midline, no adenopathy, thyroid: not enlarged, symmetric, no tenderness/mass/nodules, no carotid bruit and no JVD Lungs: Bilateral coarse Rhonchi Heart: RRR (88), no murmur Abdomen: soft, non-tender, scaphoid, Gtube feeder (not feeding at this time) Nutrition has been consulted Extremities: Atraumatic, no cyanosis/nonedematous, grossly contracted and stiff lower limbs Pulses: 1+ weak pedal pulses Skin: Skin color normal for ethnicity, Multiple jaqueline prominence wounds and right hip wound. Dr. Quiñones consulted and Wound care started atraumatic, no cyanosis or edema Neurologic: TARE WEIGHER intact, A&OxO Last 24 Hour Vital Signs Date Time Temp Pulse Resp B/P (MAP) Pulse Ox O2 Delivery O2 Flow Rate FiO2 08/16/19 13:00 82 21 99 Venturi Mask 8.0 40 79 20 99 08/16/19 10:00 80 22 120/58 (78) 99 80 08/16/19 09:00 89 22 120/58 (78) 99 89 08/16/19 08:00 98.1 90 22 114/49 (70) 99 90 08/16/19 08:00 Venturi Mask 8.0 08/16/19 07:15 87 19 99 Venturi Mask 8.0 40 83 23 99 08/16/19 07:05 99 Venturi Mask 8.0 40 08/16/19 07:00 90 21 130/60 (83) 99 08/16/19 06:00 83 24 113/50 (71) 99 08/16/19 05:00 98.0 87 24 120/63 (82) 99 08/16/19 04:00 98.0 88 24 123/63 (83) 99 08/16/19 04:00 Venturi Mask 8.0 08/16/19 04:00 88 08/16/19 03:00 90 22 113/60 (77) 99 08/16/19 02:00 93 21 112/61 (78) 100 08/16/19 01:30 92 21 100 Venturi Mask 12.0 50 91 23 100 08/16/19 01:00 83 24 131/69 (89) 99 08/16/19 00:00 97 08/16/19 00:00 Venturi Mask 8.0 08/16/19 00:00 98.2 97 24 110/57 (74) 99 08/15/19 23:00 97 24 110/60 (77) 99 08/15/19 23:00 97 24 109/72 (84) 99 08/15/19 22:00 104 24 109/72 (84) 99 08/15/19 21:00 104 24 109/72 (84) 99 9/19/19 20:15 100 Venturi Mask 12.0 50 08/15/19 20:00 106 08/15/19 20:00 98.2 106 24 126/65 (85) 99 08/15/19 20:00 Venturi Mask 8.0 08/15/19 19:00 108 24 112/72 (85) 99 08/15/19 18:00 102 21 119/60 (79) 100 08/15/19 17:00 98.0 107 26 117/72 (87) 99 08/15/19 16:00 110 26 111/59 (76) 97 08/15/19 16:00 Venturi Mask 8.0 08/15/19 16:00 122 08/15/19 15:55 98.0 08/15/19 15:00 118 21 153/74 (100) 92 08/15/19 14:00 118 29 145/84 (104) 96 Intake and Output 08/15/19 08/16/19 19:00 07:00 Intake Total 165 ml 930 ml Output Total 210 ml 490 ml Balance -45 ml 440 ml Intake IV Total 165 ml 930 ml Output Urine Total 210 ml 490 ml # Bowel Movements 2 Laboratory Tests Test 08/15/19 17:45 08/16/19 04:20 08/16/19 08:22 Lactic Acid Level 1.60 mmol/L (0.4-2.0) White Blood Count 11.1 K/UL (4.8-10.8) H Red Blood Count 3.78 M/UL (4.70-6.10) L Hemoglobin 8.7 G/DL (14.2-18.0) #L Hematocrit 29.0 % (42.0-52.0) L Mean Corpuscular Volume 77 FL (80-99) L Mean Corpuscular Hemoglobin 23.1 PG (27.0-31.0) L Mean Corpuscular Hemoglobin Concent 30.1 G/DL (32.0-36.0) L Red Cell Distribution Width 19.2 % (11.6-14.8) H Platelet Count 286 K/UL (150-450) Mean Platelet Volume 6.7 FL (6.5-10.1) Neutrophils (%) (Auto) % (45.0-75.0) Lymphocytes (%) (Auto) % (20.0-45.0) Monocytes (%) (Auto) % (1.0-10.0) Eosinophils (%) (Auto) % (0.0-3.0) Basophils (%) (Auto) % (0.0-2.0) Sodium Level 147 MMOL/L (136-145) H Potassium Level 4.1 MMOL/L (3.5-5.1) Chloride Level 114 MMOL/L (98-107) H Carbon Dioxide Level 28 MMOL/L (21-32) Anion Gap 5 mmol/L (5-15) Blood Urea Nitrogen 18 mg/dL (7-18) Creatinine 0.6 MG/DL (0.55-1.30) Estimat Glomerular Filtration Rate mL/min (>60) Glucose Level 90 MG/DL (74-106) # Calcium Level 8.3 MG/DL (8.5-10.1) L Phosphorus Level 2.3 MG/DL (2.5-4.9) L Magnesium Level 1.8 MG/DL (1.8-2.4) Total Bilirubin 0.4 MG/DL (0.2-1.0) Aspartate Amino Transf (AST/SGOT) 23 U/L (15-37) Alanine Aminotransferase (ALT/SGPT) 31 U/L (12-78) Alkaline Phosphatase 78 U/L (46-116) Total Protein 6.2 G/DL (6.4-8.2) L Albumin 1.7 G/DL (3.4-5.0) L Globulin 4.5 g/dL Arterial Blood pH 7.441 (7.350-7.450) Arterial Blood Partial Pressure CO2 39.7 mmHg (35.0-45.0) Arterial Blood Partial Pressure O2 95.0 mmHg (75.0-100.0) Arterial Blood HCO3 26.4 mmol/L (22.0-26.0) H Arterial Blood Oxygen Saturation 97.2 % (95-100) Arterial Blood Base Excess 2.2 (-2-2) H Rhett Test Positive Height (Feet): 5 Height (Inches): 6.00 Weight (Pounds): 110 Medications Current Medications Medications (Trade) Dose Ordered Sig/Mckenzie Route PRN Reason Start Time Stop Time Status Last Admin Dose Admin Acetaminophen (Tylenol) 500 mg Q6H PRN GT Mild Pain/Temp > 100.5 08/15/19 19:15 09/14/19 19:14 Albuterol/ Ipratropium (Albuterol/ Ipratropium) 3 ml Q6HRT HHN 08/16/19 01:00 08/21/19 00:59 08/16/19 12:50 Dextrose (Dextrose 50%) 25 ml Q30M PRN IV Hypoglycemia 08/15/19 19:15 09/14/19 19:14 Dextrose (Dextrose 50%) 50 ml Q30M PRN IV Hypoglycemia 08/15/19 19:15 09/14/19 19:14 Dextrose/Sodium Chloride 1,000 ml @ 75 mls/hr [id number] IV 08/15/19 21:45 09/14/19 21:44 08/16/19 11:22 Heparin Sodium (Porcine) (Heparin 5000 units/ml) 5,000 units EVERY 12 HOURS SUBQ 08/15/19 21:00 09/14/19 20:59 08/16/19 08:59 Insulin Aspart (NovoLOG) BEFORE MEALS AND HS SUBQ 08/15/19 21:00 09/14/19 20:59 Meropenem 1 gm/ Sodium Chloride 55 ml @ 110 mls/hr Q8HR IVPB 08/15/19 14:00 08/20/19 13:59 08/16/19 06:10 Morphine Sulfate (Morphine Sulfate) 2 mg Q2H PRN IVP For Pain 08/15/19 14:30 08/22/19 14:29 08/15/19 15:25 Pantoprazole (Protonix) 40 mg EVERY 12 HOURS IVP 08/15/19 21:00 09/14/19 20:59 08/16/19 08:57 Sodium Hypochlorite (Dakin's Quarter Strength) 1 applic DAILY TOPIC 08/15/19 15:00 09/14/19 14:59 08/16/19 08:57 Vancomycin HCl (Vanco rx to dose) 1 ea DAILY PRN MISC Per rx protocol 08/15/19 12:00 09/14/19 11:59 Vancomycin HCl 750 mg/Sodium Chloride 275 ml @ 183.333 mls/hr Q12HR@0800,2000 IVPB 08/15/19 20:00 08/20/19 19:59 08/16/19 08:57 Assessment/Plan Status: stable Assessment/Plan: Pneumonia Sepsis UTI leukocytosis decubitus ulcers DM HTN Continue abx as ordered Wound Care continued Nutrition consulted (increase vit c/zinc) Pt DNR per Shelbi HAMILTON. RN to get POLST from SNF or create new POLST per family. CBC, BMP, abg tomorrow Resp titration of O2 --presently on 7L 02 Venturi Mask [facility] Hospital declaration INPATIENT level of care is warranted for this patient because patient is a 89 year old with who presents with suspicion of . I have a high level of concern because . Patient is at high risk for . Plan of care/treatment include . Patient care is expected to be greater than 2 midnights. OBSERVATION level of care is warranted for this patient. Patient is a 89 year old with who presents with . Patient will be admitted for 1 midnight, but if additional night(s) is/are necessary, patient will be converted to inpatient status for the entire hospitalization Disposition: Once the patient is stable to leave the hospital, I anticipate the patient will likely be discharged to the following environment: Estimated discharge date: I spent 70 minutes on this patient's case, and minutes was dedicated to counseling and/or care coordination. MIPS (Merit-based Incentive Payment System) Applicable CPT: 75720, 54504 CHECK ALL THAT ARE MET: Measure #5 (CHF): All ages. Prescribe MOSES/ARB upon discharge for patients with left ventricular systolic dysfunction. If not, the reason is clearly documented in the medical chart. Measure #8 (CHF): All ages. Prescribe a beta abel upon discharge for patients with left ventricular systolic dysfunction. If not, the reason is clearly documented in the medical chart. Measure #47 Advance care plan or surrogate decision maker documented in the medical record. Measure #130 The provider has documented, updated, or reviewed the patients current medication list and has documented it in the patients note. Measure #374 (All): Send report to referring provider. Measure #407(Sepsis due to MSSA bacteremia): Age 18+ Patient treated with a beta-lactam antibiotic (Nafcillin, Oxacillin or Cefazolin) as definitive therapy. MEDICAL COMPLEXITY High complexity medical decision making (need 2/3 categories) Problem - need 4 points Acute/new problem with new plan for workup (4 points, 1 max) Acute/new problem without additional workup (3 points, 1 max) Unstable chronic problem actively being managed (2 point each, 2 max) Stable chronic problem actively being managed (1 point each, 2 max) Self-limited/transient process (constipation, muscle ache, etc) (1 point each , 2 max) Data - need 4 points Reviewed labs/imaging studies (1 points, 2 max) Independent review of imaging (EKG, xrays, etc) (2 points, 2 max) Discussed case with consult/other MD/RN (2 points, 2 max) High Risk - qualify if have one of the following: Severe exacerbation of acute problem, acute mental status change, IV narcotics , monitoring drug levels (vancomycin, INR, tacrolimus etc) Shira Bain N.P. Aug 16, 2019 13:24
[2019-08-16] MEDS ORDERED: Sterile Water Irrig 1000ml IRRIG ONE ×2 (14:45→14:47)
[2019-08-16] MEDS ORDERED: NS 275ml ONE ×2 (14:45→14:47)
[2019-08-16] MEDS ORDERED: Tubing IV Secondary IV ONE ×2 (14:45→14:47)
[2019-08-16] MEDS ORDERED: D5 1/2NS 1000ml IV ONE (14:45)
--- NOTE | 2019-08-16 16:35 | Critical Care Progress Note ---
Assessment/Plan Assessment/Plan IMPRESSION: 1. Respiratory failure, acute. 2. Hypoxemia. 3. Pneumonia, possible aspiration. 4. History of sepsis, 5. Severe protein-calorie malnutrition, G-tube. 6. Chronic encephalopathy. 7. aspiration 9. contractures PLAN care noted respiratory care aspiration precautions iv antibiotics care as is wound care monitor abg monitor acid base impression, plan, and exam edited and reviewed in detail care discussed with power brake operator - Subjective Interval Events: off BIPAP appears more stable still obtunded on oxygen ROS Limited/Unobtainable: Yes Condition: critical EKG Rhythm: Sinus Rhythm I&O: Intake and Output 08/15/19 08/16/19 19:00 07:00 Intake Total 165 ml 930 ml Output Total 210 ml 490 ml Balance -45 ml 440 ml Intake IV Total 165 ml 930 ml Output Urine Total 210 ml 490 ml # Bowel Movements 2 Critical Care - Objective Last 24 Hour Vital Signs Date Time Temp Pulse Resp B/P (MAP) Pulse Ox O2 Delivery O2 Flow Rate FiO2 08/16/19 16:00 98.1 82 21 120/58 (78) 100 82 08/16/19 13:00 82 21 99 Venturi Mask 8.0 40 79 20 99 08/16/19 12:00 Venturi Mask 8.0 08/16/19 10:00 80 22 120/58 (78) 99 80 08/16/19 09:00 89 22 120/58 (78) 99 89 08/16/19 08:00 98.1 90 22 114/49 (70) 99 90 08/16/19 08:00 Venturi Mask 8.0 08/16/19 07:15 87 19 99 Venturi Mask 8.0 40 83 23 99 08/16/19 07:05 99 Venturi Mask 8.0 40 08/16/19 07:00 90 21 130/60 (83) 99 08/16/19 06:00 83 24 113/50 (71) 99 08/16/19 05:00 98.0 87 24 120/63 (82) 99 08/16/19 04:00 98.0 88 24 123/63 (83) 99 08/16/19 04:00 Venturi Mask 8.0 08/16/19 04:00 88 08/16/19 03:00 90 22 113/60 (77) 99 08/16/19 02:00 93 21 112/61 (78) 100 08/16/19 01:30 92 21 100 Venturi Mask 12.0 50 91 23 100 08/16/19 01:00 83 24 131/69 (89) 99 08/16/19 00:00 97 08/16/19 00:00 Venturi Mask 8.0 08/16/19 00:00 98.2 97 24 110/57 (74) 99 08/15/19 23:00 97 24 110/60 (77) 99 08/15/19 23:00 97 24 109/72 (84) 99 08/15/19 22:00 104 24 109/72 (84) 99 08/15/19 21:00 104 24 109/72 (84) 99 08/15/19 20:15 100 Venturi Mask 12.0 50 08/15/19 20:00 106 08/15/19 20:00 98.2 106 24 126/65 (85) 99 08/15/19 20:00 Venturi Mask 8.0 08/15/19 19:00 108 24 112/72 (85) 99 08/15/19 18:00 102 21 119/60 (79) 100 08/15/19 17:00 98.0 107 26 117/72 (87) 99 Labs: Labs Test 08/15/19 07:02 08/15/19 07:05 08/15/19 07:30 08/15/19 08:54 Arterial Blood pH 7.442 (7.350-7.450) 7.463 (7.350-7.450) Arterial Blood Partial Pressure CO2 34.9 mmHg (35.0-45.0) 28.9 mmHg (35.0-45.0) Arterial Blood Partial Pressure O2 68.0 mmHg (75.0-100.0) 192.9 mmHg (75.0-100.0) Arterial Blood HCO3 23.3 mmol/L (22.0-26.0) 20.2 mmol/L (22.0-26.0) Arterial Blood Oxygen Saturation 92.5 % (95-100) % (95-100) Arterial Blood Base Excess -0.3 (-2-2) -2.2 (-2-2) Rhett Test Positive Positive White Blood Count 13.4 K/UL (4.8-10.8) Red Blood Count 5.39 M/UL (4.70-6.10) Hemoglobin 12.6 G/DL (14.2-18.0) Hematocrit 41.0 % (42.0-52.0) Mean Corpuscular Volume 76 FL (80-99) Mean Corpuscular Hemoglobin 23.4 PG (27.0-31.0) Mean Corpuscular Hemoglobin Concent 30.8 G/DL (32.0-36.0) Red Cell Distribution Width 19.3 % (11.6-14.8) Platelet Count 395 K/UL (150-450) Mean Platelet Volume 6.2 FL (6.5-10.1) Neutrophils (%) (Auto) 84.1 % (45.0-75.0) Lymphocytes (%) (Auto) 8.9 % (20.0-45.0) Monocytes (%) (Auto) 6.5 % (1.0-10.0) Eosinophils (%) (Auto) 0.0 % (0.0-3.0) Basophils (%) (Auto) 0.5 % (0.0-2.0) Urine Color Yellow Urine Appearance Cloudy Urine pH 7 (4.5-8.0) Urine Specific [place] 1.015 (1.005-1.035) Urine Protein 2+ (NEGATIVE) Urine Glucose (UA) Negative (NEGATIVE) Urine Ketones Negative (NEGATIVE) Urine Blood 3+ (NEGATIVE) Urine Nitrite Positive (NEGATIVE) Urine Bilirubin Negative (NEGATIVE) Urine Urobilinogen Normal MG/DL (0.0-1.0) Urine Leukocyte Esterase 3+ (NEGATIVE) Urine RBC 5-10 /HPF (0 - 0) Urine WBC Tntc /HPF (0 - 0) Urine Squamous Epithelial Cells Occasional /LPF Urine Bacteria Many /HPF (NONE) Sodium Level 143 MMOL/L (136-145) Potassium Level 4.7 MMOL/L (3.5-5.1) Chloride Level 105 MMOL/L (98-107) Carbon Dioxide Level 27 MMOL/L (21-32) Anion Gap 11 mmol/L (5-15) Blood Urea Nitrogen 27 mg/dL (7-18) Creatinine 1.0 MG/DL (0.55-1.30) Estimat Glomerular Filtration Rate mL/min (>60) Glucose Level 204 MG/DL (74-106) Lactic Acid Level 4.60 mmol/L (0.4-2.0) Calcium Level 9.3 MG/DL (8.5-10.1) Total Bilirubin 0.3 MG/DL (0.2-1.0) Aspartate Amino Transf (AST/SGOT) 37 U/L (15-37) Alanine Aminotransferase (ALT/SGPT) 50 U/L (12-78) Alkaline Phosphatase 114 U/L (46-116) Total Creatine Kinase 77 U/L (26-308) Creatine Kinase MB 1.8 NG/ML (0.0-3.6) Creatine Kinase MB Relative Index 2.3 Troponin I 0.000 ng/mL (0.000-0.056) Total Protein 8.4 G/DL (6.4-8.2) Albumin 2.4 G/DL (3.4-5.0) Globulin 6.0 g/dL Albumin/Globulin Ratio 0.4 (1.0-2.7) Test 08/15/19 10:05 08/15/19 17:45 08/16/19 04:20 08/16/19 08:22 Lactic Acid Level 3.70 mmol/L (0.66-2.22) 1.60 mmol/L (0.4-2.0) White Blood Count 11.1 K/UL (4.8-10.8) Red Blood Count 3.78 M/UL (4.70-6.10) Hemoglobin 8.7 G/DL (14.2-18.0) Hematocrit 29.0 % (42.0-52.0) Mean Corpuscular Volume 77 FL (80-99) Mean Corpuscular Hemoglobin 23.1 PG (27.0-31.0) Mean Corpuscular Hemoglobin Concent 30.1 G/DL (32.0-36.0) Red Cell Distribution Width 19.2 % (11.6-14.8) Platelet Count 286 K/UL (150-450) Mean Platelet Volume 6.7 FL (6.5-10.1) Neutrophils (%) (Auto) % (45.0-75.0) Lymphocytes (%) (Auto) % (20.0-45.0) Monocytes (%) (Auto) % (1.0-10.0) Eosinophils (%) (Auto) % (0.0-3.0) Basophils (%) (Auto) % (0.0-2.0) Sodium Level 147 MMOL/L (136-145) Potassium Level 4.1 MMOL/L (3.5-5.1) Chloride Level 114 MMOL/L (98-107) Carbon Dioxide Level 28 MMOL/L (21-32) Anion Gap 5 mmol/L (5-15) Blood Urea Nitrogen 18 mg/dL (7-18) Creatinine 0.6 MG/DL (0.55-1.30) Estimat Glomerular Filtration Rate mL/min (>60) Glucose Level 90 MG/DL (74-106) Calcium Level 8.3 MG/DL (8.5-10.1) Phosphorus Level 2.3 MG/DL (2.5-4.9) Magnesium Level 1.8 MG/DL (1.8-2.4) Total Bilirubin 0.4 MG/DL (0.2-1.0) Aspartate Amino Transf (AST/SGOT) 23 U/L (15-37) Alanine Aminotransferase (ALT/SGPT) 31 U/L (12-78) Alkaline Phosphatase 78 U/L (46-116) Total Protein 6.2 G/DL (6.4-8.2) Albumin 1.7 G/DL (3.4-5.0) Globulin 4.5 g/dL Arterial Blood pH 7.441 (7.350-7.450) Arterial Blood Partial Pressure CO2 39.7 mmHg (35.0-45.0) Arterial Blood Partial Pressure O2 95.0 mmHg (75.0-100.0) Arterial Blood HCO3 26.4 mmol/L (22.0-26.0) Arterial Blood Oxygen Saturation 97.2 % (95-100) Arterial Blood Base Excess 2.2 (-2-2) Rhett Test Positive Objective: GENERAL: The patient is an ill-appearing male, chronically ill. HEENT: Negative. Mucous membranes are dry. NECK: Supple. LUNGS: Coarse breath sounds, moderate air entry. same CARDIAC: S1, S2. RRR without murmurs, rubs, or gallops. ABDOMEN: Overall soft and nontender. G-tube in place. no distention EXTREMITIES: No cyanosis or clubbing. No significant contractures. NEUROLOGICAL: Poorly responsive. rigid SKIN: Noted and reviewed. Micro: Microbiology Date/Time Source Procedure Growth Status 08/15/19 07:30 Urine,Clean Catch Urine Culture - Preliminary Gram Negative Bacillus 1 Resulted Accucheck: 102 Tim Andrade MD Aug 16, 2019 16:35
[2019-08-16] MEDS ORDERED: Acetaminophen 650mg/20.3ml GT PRN (17:30)
--- NOTE | 2019-08-16 18:15 | Consultation ---
DATE OF CONSULTATION: 08/16/2019 CONSULTING PHYSICIAN: Larry Mack D.P.M. REQUESTING PHYSICIAN: Ervin Mario M.D. REASON FOR CONSULTATION: Lower extremity ulcerations. HISTORY OF PRESENT ILLNESS: The patient is an 83-year-old male who was admitted to [facility] on 08/15/2019 for sepsis. The patient is nonverbal. History was obtained through chart review. Physical exam performed with nurse present. PAST MEDICAL HISTORY: Significant for history of chronic aspiration, respiratory failure, multiple intubations, G-tube placement, dementia, lower extremity contractures, COPD, history of dysphagia. ALLERGIES: No known drug allergies. FAMILY HISTORY: Noncontributory. MEDICATIONS: Per MAR. SOCIAL HISTORY: The patient [facility] in a [facility] facility. REVIEW OF SYSTEMS: Unobtainable. PHYSICAL EXAMINATION: VITAL SIGNS: Temperature is 98.1, pulse 90, respiration rate 20, saturating 99% on a Venturi mask on 8 L. LOWER EXTREMITIES: Vascular, nonpalpable pedal pulses noted bilaterally. Feet are equally warm. DERMATOLOGICAL: There is superficial ulcerations noted on the toes of the right foot. No signs of acute infection noted. On the left foot, there is extensive lateral foot ulcerations, some extending to muscle. Wound appears granular. No signs of infection noted. There is also ulceration noted on the first metatarsophalangeal joint on the anterior leg. Again, no signs of acute infection noted at these sites. MUSCULOSKELETAL: Severe contractures, rigid contractures are noted almost the bilateral knees and ankles. The patient is literally resting on his lower extremities. LABORATORY DATA: White blood cell count is 11.1, down from 13.4 on admission; hemoglobin and hematocrit 8.7 and 29.0; and platelet count is 286. Potassium is 4.1, BUN 18, creatinine is 0.6. Lactic acid is 1.6, down from 4.60 from admission. Albumin is 1.7. No lower extremity imaging. ASSESSMENT: 1. Extensive left lower extremity wounds. 2. 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 3. Bedbound. 4. Peripheral arterial disease. PLAN: 1. Continue wound care as ordered, nothing surgical from my standpoint. The patient may benefit from above-knee amputation, especially of the left lower extremity, simply because of the positioning of the foot, extensiveness of the wound and also the likeliness of osteomyelitis within the due to chronic nature of the wound. 2. We will follow. Thank you for the courtesy of this consultation. Larry Mack D.P.M. DR: Jennifer JOB#: [id number] CC:
[2019-08-16] MEDS ORDERED: Morphine Sulfate 2mg/ml Inj(IV/IM USE ONLY) IVP PRN (18:30)
[2019-08-16] MEDS: Vancomycin 750 MG in NS 275 ML IVPB SCH (20:36)
[2019-08-16] MEDS ORDERED: NovoLOG Insulin Flexpen SUBQ SCH (21:00)
[2019-08-17] VITALS: BP 121/59
[2019-08-17] MEDS: Albuterol/Ipratropium 3ml neb HHN SCH ×4 (01:15→19:47)
[2019-08-17] MEDS: D5 1/2NS 1,000 ML IV SCH ×3 (01:31→20:12)
[2019-08-17 04:00] VITALS: BP 131/66
[2019-08-17] MEDS: Meropenem 1 GM in NS 55 ML IVPB SCH (05:34)
[2019-08-17] MEDS: NovoLOG Insulin Flexpen SUBQ SCH ×6 (05:37→23:32)
[2019-08-17 05:43] LABS: BASOPHILS % (AUTO) 0.4 % (0.0-2.0); EOSINOPHILS % (AUTO) 0.5 % (0.0-3.0); HEMATOCRIT 27.5 % (42.0-52.0); HEMOGLOBIN 8.2 G/DL (14.2-18.0); LYMPHOCYTES % (AUTO) 13.3 % (20.0-45.0); MEAN CORPUSCULAR VOLUME 77 FL (80-99); MONOCYTES % (AUTO) 7.4 % (1.0-10.0); NEUTROPHILS % (AUTO) 78.4 % (45.0-75.0); PLATELET COUNT 227 K/UL (150-450); RED BLOOD COUNT 3.56 M/UL (4.70-6.10); RED CELL DISTRIBUTION WIDTH 18.9 % (11.6-14.8); WHITE BLOOD COUNT 8.1 K/UL (4.8-10.8)
[2019-08-17 06:22] LABS: ALANINE AMINOTRANSFERASE 30 U/L (12-78); ALBUMIN 1.6 G/DL (3.4-5.0); ALBUMIN/GLOBULIN RATIO 0.4 (1.0-2.7); ALKALINE PHOSPHATASE 73 U/L (46-116); ANION GAP 6 mmol/L (5-15); ASPARTATE AMINO TRANSFERASE 21 U/L (15-37); BILIRUBIN,TOTAL 0.2 MG/DL (0.2-1.0); CALCIUM 7.9 MG/DL (8.5-10.1); CARBON DIOXIDE 26 MMOL/L (21-32); CHLORIDE 110 MMOL/L (98-107); CREATININE 0.5 MG/DL (0.55-1.30); POTASSIUM 3.7 MMOL/L (3.5-5.1); SODIUM 142 MMOL/L (136-145)
[2019-08-17 06:38] LABS: BLOOD UREA NITROGEN 12 mg/dL (7-18)
[2019-08-17 08:00] VITALS: BP 140/79
[2019-08-17] MEDS: Pantoprazole Inj IVP SCH ×2 (08:26→20:08)
[2019-08-17] MEDS: Dakin's 0.125% Soln (Quarter Strength) 16oz TOPIC SCH (08:27)
[2019-08-17] MEDS: Heparin 5000 units/ml inj SUBQ SCH ×2 (08:28→20:10)
[2019-08-17] MEDS ORDERED: D5 1/2NS 1000ml IV ONE (08:34)
[2019-08-17] MEDS ORDERED: NS 275ml ONE (08:34)
--- NOTE | 2019-08-17 08:40 | Surgery Progress Note ---
Surgery Progress Note Subjective Additional Comments downgraded leukocytosis resolved labs improved exam unchanged. Objective Last 24 Hour Vital Signs Date Time Temp Pulse Resp B/P (MAP) Pulse Ox O2 Delivery O2 Flow Rate FiO2 08/17/19 07:41 98 Venturi Mask 8.0 40 08/17/19 07:35 79 21 99 Venturi Mask 8.0 40 82 20 97 08/17/19 04:00 97.5 81 20 131/66 (87) 99 08/17/19 04:00 Venturi Mask 8.0 08/17/19 04:00 77 08/17/19 01:30 81 20 100 Venturi Mask 8.0 40 08/17/19 01:15 76 20 98 Venturi Mask 8.0 40 08/17/19 00:00 69 08/17/19 00:00 Venturi Mask 8.0 08/17/19 00:00 97.9 74 20 121/59 (79) 100 08/16/19 20:04 79 20 99 Venturi Mask 8.0 40 08/16/19 20:00 Venturi Mask 8.0 08/16/19 20:00 75 08/16/19 20:00 97.2 79 20 135/71 (92) 100 08/16/19 19:49 75 20 97 Venturi Mask 8.0 40 08/16/19 19:48 97 Venturi Mask 8.0 40 08/16/19 16:00 Venturi Mask 8.0 08/16/19 16:00 98.1 82 21 120/58 (78) 100 82 08/16/19 16:00 72 08/16/19 15:00 87 21 137/70 (92) 100 87 08/16/19 14:00 89 22 123/57 (79) 100 89 08/16/19 13:00 89 21 118/51 (73) 100 89 08/16/19 13:00 82 21 99 Venturi Mask 8.0 40 79 20 99 08/16/19 12:00 Venturi Mask 8.0 08/16/19 12:00 83 08/16/19 12:00 97.9 84 22 124/58 (80) 100 84 08/16/19 11:00 84 22 123/63 (83) 100 84 08/16/19 10:00 80 22 120/58 (78) 99 80 9/20/19 09:00 89 22 120/58 (78) 99 89 I&O Intake and Output 08/16/19 08/17/19 18:59 06:59 Intake Total 1290.000 ml 1729.0 ml Output Total 675 ml 445 ml Balance 615.000 ml 1284.0 ml Intake IV Total 1230.000 ml 1269.0 ml Tube Feeding 60 ml 460 ml Output Urine Total 675 ml 445 ml Dressing: saturated Wound: other Drains: other Cardiovascular: RSR Respiratory: clear, decreased breath sounds Abdomen: soft, present bowel sounds, non-distended Extremities: other Laboratory Tests Test 08/16/19 19:00 08/17/19 04:20 Vancomycin Level Trough 13.8 ug/mL (5.0-12.0) H White Blood Count 8.1 K/UL (4.8-10.8) Red Blood Count 3.56 M/UL (4.70-6.10) L Hemoglobin 8.2 G/DL (14.2-18.0) L Hematocrit 27.5 % (42.0-52.0) L Mean Corpuscular Volume 77 FL (80-99) L Mean Corpuscular Hemoglobin 23.0 PG (27.0-31.0) L Mean Corpuscular Hemoglobin Concent 29.7 G/DL (32.0-36.0) L Red Cell Distribution Width 18.9 % (11.6-14.8) H Platelet Count 227 K/UL (150-450) Mean Platelet Volume 5.9 FL (6.5-10.1) L Neutrophils (%) (Auto) 78.4 % (45.0-75.0) H Lymphocytes (%) (Auto) 13.3 % (20.0-45.0) L Monocytes (%) (Auto) 7.4 % (1.0-10.0) Eosinophils (%) (Auto) 0.5 % (0.0-3.0) Basophils (%) (Auto) 0.4 % (0.0-2.0) Sodium Level 142 MMOL/L (136-145) Potassium Level 3.7 MMOL/L (3.5-5.1) Chloride Level 110 MMOL/L (98-107) H Carbon Dioxide Level 26 MMOL/L (21-32) Anion Gap 6 mmol/L (5-15) Blood Urea Nitrogen 12 mg/dL (7-18) Creatinine 0.5 MG/DL (0.55-1.30) L Estimat Glomerular Filtration Rate mL/min (>60) Glucose Level 99 MG/DL (74-106) Calcium Level 7.9 MG/DL (8.5-10.1) L Total Bilirubin 0.2 MG/DL (0.2-1.0) Aspartate Amino Transf (AST/SGOT) 21 U/L (15-37) Alanine Aminotransferase (ALT/SGPT) 30 U/L (12-78) Alkaline Phosphatase 73 U/L (46-116) Total Protein 5.9 G/DL (6.4-8.2) L Albumin 1.6 G/DL (3.4-5.0) L Globulin 4.3 g/dL Albumin/Globulin Ratio 0.4 (1.0-2.7) L Plan Problems: (1) Respiratory distress (2) Sepsis Assessment & Plan: leukocytosis - resolved lactic acidosis - resolved anemia on abx cont current care cxr noted (3) Protein-calorie malnutrition, severe (4) Decubitus ulcer of trochanteric region of left hip Assessment & Plan: Pt presented on admission with contractures, multiple pressure injuries. Hyperpigmentation noted to sacrum from previous pressure injury. Full thickness pressure injury L trochanteric with undermining. Base of wound has 90% burgess slough. Bone is palpable. Wound is malodorous.(L)6cm x (W)4cm x (D) 2cm , Undermining clockwise 12-12 by 3cm @6o'clock. Small amt of purulent brown exudate noted. Resolving pressure injury L ischium. Dry brown eschar with surrounding pink epithelial borders.(L)1cm x (W)1cm. DTPI R ischium . Base of wound is maroon ,fluctuant with red tinged margins. Wound is within previously resolved wound . surrounding hyperpigmentation with scarring. Resolving Full thickness pressure injury idalia R tibia . Base of wound has pink granulation. Edges are adherent and pink. No odor or exudate noted.(L) 5.5cm x (W)0.6cm. Resolving pressure injury plantar R hallux ,Base of wound moist-viable with surrounding pink epithelial. (L)1cm x (W)1.4cm. Full thickness wound lateral L foot extending from base of L 5th metatarsal to L heel and plantar L heel (L)4.5cm x (W)18.5cm. Base of wound has scattered slough ,90% pink granulation.Edges are macerated.Wound is malodorous. Full thickness pressure injury L hallux and plantar aspect. Base of wound has 100% soft necrosis. Wound is malodorous. (L)6.5cm x (W)5.5cm. Tips of L 2nd 3rd and 4th metatarsals has soft necrosis. Full thickness sacral pressure injury noted. Base of wound with some pink granulation and some slough .edges adherent to base of wound. Brown discoloration without fluctuance /induration noted periwound. 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 Base of wound moist-pink , bone is palpable. Periwound is dark without erythema or induration with undermining Full thickness stage 4 pressure injury L ischium .Base of wound some pink granulation and some slough ,erythematous borders. Periwound dark and indurated. Scrotal area area red. Full thickness pressure injury base of scrotum. Base of wound has sloth. Full thickness wound idalia R tibia. [place] granulation at base of wound. Edges adherent. No odor or exudate noted. Periwound without erythema or elevation in skin temp Full thickness wound lateral/plantar L foot. [place] granulation at base of wound with scattered slough.Bone is palpable. Mild odor noted .Small amt seropurulent exudate noted. Edges macerated. Periwound is fluctuant. L st metatarsal flaccid. Full thickness ulcer noted to plantar L foot. Base of wound moist -viable with pink epithelial borders. Periwound is fluctuant. Small amt serous exudate noted. Full thickness wound medial L foot. slough at base of wound,. Macerated borders. Mild odor noted. Tx.Plan: Cleanse all wounds Buttocks with Dakin's 0.125% daysi. Apply Dakin's moist gauze to wounds. Cover with Optifoam drsgs. Cleanse wounds L foot with Dakin's 0.125% daysi. Apply Dakin's moist gauze to wounds. Cover with ABD pads and wrap with Kerlix daily and prn. Cleanse wounds R tibia, and R foot with Dakin's 0.125% daysi. Apply Dakin's moist gauze cover with Abd pads and wrap with Kerlix daily and prn. Apply Moisture Barrier Paste to wound on scrotum. Cover with Optifoam drsg. Daily and prn. APM/KAVON Mattress overlay. Reposition at least every 2hours or as tolerated. Place pillow between knees. Off-load heels with pillow. (5) Ulcer of lower extremity excluding decubitus ulcer Assessment & Plan: appreciate podiatry input cont with wound care as above thank you Rios Quiñones Aug 17, 2019 08:40
[2019-08-17] MEDS: Vancomycin 750 MG in NS 275 ML IVPB SCH (08:55)
--- NOTE | 2019-08-17 09:35 | General Progress Note ---
Assessment/Plan Status: stable Assessment/Plan: Septicemia - UTI, Pneumonia, Infected decubiti - IV Abx. IVF. IV AVx. Wound Care. COPD - Per Pulm. Subjective Allergies: Coded Allergies: No Known Allergies (Unverified , 02/25/19) Subjective Obtunded, confused. Objective Last 24 Hour Vital Signs Date Time Temp Pulse Resp B/P (MAP) Pulse Ox O2 Delivery O2 Flow Rate FiO2 08/17/19 08:00 97.9 99 20 140/79 (99) 98 08/17/19 08:00 85 08/17/19 08:00 Venturi Mask 8.0 08/17/19 07:41 98 Venturi Mask 8.0 40 08/17/19 07:35 79 21 99 Venturi Mask 8.0 40 82 20 97 08/17/19 04:00 97.5 81 20 131/66 (87) 99 08/17/19 04:00 Venturi Mask 8.0 08/17/19 04:00 77 08/17/19 01:30 81 20 100 Venturi Mask 8.0 40 08/17/19 01:15 76 20 98 Venturi Mask 8.0 40 08/17/19 00:00 69 08/17/19 00:00 Venturi Mask 8.0 08/17/19 00:00 97.9 74 20 121/59 (79) 100 08/16/19 20:04 79 20 99 Venturi Mask 8.0 40 08/16/19 20:00 Venturi Mask 8.0 08/16/19 20:00 75 08/16/19 20:00 97.2 79 20 135/71 (92) 100 08/16/19 19:49 75 20 97 Venturi Mask 8.0 40 08/16/19 19:48 97 Venturi Mask 8.0 40 08/16/19 16:00 Venturi Mask 8.0 08/16/19 16:00 98.1 82 21 120/58 (78) 100 82 08/16/19 16:00 72 08/16/19 15:00 87 21 137/70 (92) 100 87 08/16/19 14:00 89 22 123/57 (79) 100 89 08/16/19 13:00 89 21 118/51 (73) 100 89 08/16/19 13:00 82 21 99 Venturi Mask 8.0 40 79 20 99 08/16/19 12:00 Venturi Mask 8.0 08/16/19 12:00 83 08/16/19 12:00 97.9 84 22 124/58 (80) 100 84 08/16/19 11:00 84 22 123/63 (83) 100 84 08/16/19 10:00 80 22 120/58 (78) 99 80 Intake and Output 08/16/19 08/17/19 18:59 06:59 Intake Total 1290.000 ml 1729.0 ml Output Total 675 ml 445 ml Balance 615.000 ml 1284.0 ml Intake IV Total 1230.000 ml 1269.0 ml Tube Feeding 60 ml 460 ml Output Urine Total 675 ml 445 ml Laboratory Tests 08/16/19 19:00: Vancomycin Level Trough 13.8H 08/17/19 04:20: White Blood Count 8.1, Red Blood Count 3.56L, Hemoglobin 8.2L, Hematocrit 27.5L , Mean Corpuscular Volume 77L, Mean Corpuscular Hemoglobin 23.0L, Mean Corpuscular Hemoglobin Concent 29.7L, Red Cell Distribution Width 18.9H, Platelet Count 227, Mean Platelet Volume 5.9L, Neutrophils (%) (Auto) 78.4H, Lymphocytes (%) (Auto) 13.3L, Monocytes (%) (Auto) 7.4, Eosinophils (%) (Auto) 0.5, Basophils (%) (Auto) 0.4, Sodium Level 142, Potassium Level 3.7, Chloride Level 110H, Carbon Dioxide Level 26, Anion Gap 6, Blood Urea Nitrogen 12, Creatinine 0.5L, Estimat Glomerular Filtration Rate , Glucose Level 99, Calcium Level 7.9L, Total Bilirubin 0.2, Aspartate Amino Transf (AST/SGOT) 21, Alanine Aminotransferase (ALT/SGPT) 30, Alkaline Phosphatase 73, Total Protein 5.9L, Albumin 1.6L, Globulin 4.3, Albumin/Globulin Ratio 0.4L Height (Feet): 5 Height (Inches): 6.00 Weight (Pounds): 112 Objective [place]. CV RR Lungs B ronchi + wheezes. E contractures, muscle wasting. Skin Sacral decubitus, Ankle decubiti. Ervin Mario MD Aug 17, 2019 09:35
--- NOTE | 2019-08-17 10:14 | Infectious Diseases Prog Note ---
Assessment/Plan Assessment/Plan antibiotics : vancomycin iv, meropenem A 1. proteus UTI 2. aspiration pneumonia 3. leucocytosis resolved 4. decubitus ulcers 5. diabetes mellitus 6. hypertension P 1. d/c iv vancomycin, meropenem 2. start and continue ceftriaxone 4 more days 3. will follow up cultures Subjective ROS Limited/Unobtainable: Yes Allergies: Coded Allergies: No Known Allergies (Unverified , 02/25/19) Objective Vital Signs Last 24 Hour Vital Signs Date Time Temp Pulse Resp B/P (MAP) Pulse Ox O2 Delivery O2 Flow Rate FiO2 08/17/19 08:00 97.9 99 20 140/79 (99) 98 08/17/19 08:00 85 08/17/19 08:00 Venturi Mask 8.0 08/17/19 07:41 98 Venturi Mask 8.0 40 08/17/19 07:35 79 21 99 Venturi Mask 8.0 40 82 20 97 08/17/19 04:00 97.5 81 20 131/66 (87) 99 08/17/19 04:00 Venturi Mask 8.0 08/17/19 04:00 77 08/17/19 01:30 81 20 100 Venturi Mask 8.0 40 08/17/19 01:15 76 20 98 Venturi Mask 8.0 40 08/17/19 00:00 69 08/17/19 00:00 Venturi Mask 8.0 08/17/19 00:00 97.9 74 20 121/59 (79) 100 08/16/19 20:04 79 20 99 Venturi Mask 8.0 40 08/16/19 20:00 Venturi Mask 8.0 08/16/19 20:00 75 08/16/19 20:00 97.2 79 20 135/71 (92) 100 08/16/19 19:49 75 20 97 Venturi Mask 8.0 40 08/16/19 19:48 97 Venturi Mask 8.0 40 08/16/19 16:00 Venturi Mask 8.0 08/16/19 16:00 98.1 82 21 120/58 (78) 100 82 08/16/19 16:00 72 08/16/19 15:00 87 21 137/70 (92) 100 87 08/16/19 14:00 89 22 123/57 (79) 100 89 08/16/19 13:00 89 21 118/51 (73) 100 89 08/16/19 13:00 82 21 99 Venturi Mask 8.0 40 79 20 99 08/16/19 12:00 Venturi Mask 8.0 08/16/19 12:00 83 08/16/19 12:00 97.9 84 22 124/58 (80) 100 84 08/16/19 11:00 84 22 123/63 (83) 100 84 Height (Feet): 5 Height (Inches): 6.00 Weight (Pounds): 112 Respiratory/Chest: lungs clear Cardiovascular: normal rate, regular rhythm, no gallop/murmur Abdomen: soft, non tender, other - GT Extremities: no edema, other - contracted Microbiology Date/Time Source Procedure Growth Status 08/15/19 07:05 Blood Blood Culture - Preliminary NO GROWTH AFTER 24 HOURS Resulted 08/15/19 06:50 Blood Blood Culture - Preliminary NO GROWTH AFTER 24 HOURS Resulted 08/15/19 08:39 Nasal Nares MRSA Culture - Final NO METHICILLIN RESISTANT STAPH AUREUS... Complete 08/15/19 07:30 Urine,Clean Catch Urine Culture - Preliminary Proteus Mirabilis Resulted 08/15/19 08:39 Rectum VRE Culture - Final NO VANCOMYCIN RESISTANT ENTEROCOCCUS ... Complete 08/15/19 08:39 Rectum - Final NO CARBAPENEM-RESISTANT ENTEROBACTERI... Complete Laboratory Tests Test 08/16/19 19:00 08/17/19 04:20 Vancomycin Level Trough 13.8 ug/mL (5.0-12.0) H White Blood Count 8.1 K/UL (4.8-10.8) Red Blood Count 3.56 M/UL (4.70-6.10) L Hemoglobin 8.2 G/DL (14.2-18.0) L Hematocrit 27.5 % (42.0-52.0) L Mean Corpuscular Volume 77 FL (80-99) L Mean Corpuscular Hemoglobin 23.0 PG (27.0-31.0) L Mean Corpuscular Hemoglobin Concent 29.7 G/DL (32.0-36.0) L Red Cell Distribution Width 18.9 % (11.6-14.8) H Platelet Count 227 K/UL (150-450) Mean Platelet Volume 5.9 FL (6.5-10.1) L Neutrophils (%) (Auto) 78.4 % (45.0-75.0) H Lymphocytes (%) (Auto) 13.3 % (20.0-45.0) L Monocytes (%) (Auto) 7.4 % (1.0-10.0) Eosinophils (%) (Auto) 0.5 % (0.0-3.0) Basophils (%) (Auto) 0.4 % (0.0-2.0) Sodium Level 142 MMOL/L (136-145) Potassium Level 3.7 MMOL/L (3.5-5.1) Chloride Level 110 MMOL/L (98-107) H Carbon Dioxide Level 26 MMOL/L (21-32) Anion Gap 6 mmol/L (5-15) Blood Urea Nitrogen 12 mg/dL (7-18) Creatinine 0.5 MG/DL (0.55-1.30) L Estimat Glomerular Filtration Rate mL/min (>60) Glucose Level 99 MG/DL (74-106) Calcium Level 7.9 MG/DL (8.5-10.1) L Total Bilirubin 0.2 MG/DL (0.2-1.0) Aspartate Amino Transf (AST/SGOT) 21 U/L (15-37) Alanine Aminotransferase (ALT/SGPT) 30 U/L (12-78) Alkaline Phosphatase 73 U/L (46-116) Total Protein 5.9 G/DL (6.4-8.2) L Albumin 1.6 G/DL (3.4-5.0) L Globulin 4.3 g/dL Albumin/Globulin Ratio 0.4 (1.0-2.7) L Current Medications Medications (Trade) Dose Ordered Sig/Mckenzie Route PRN Reason Start Time Stop Time Status Last Admin Dose Admin Acetaminophen (Tylenol) 500 mg Q6H PRN GT Mild Pain/Temp > 100.5 08/16/19 17:30 09/14/19 17:29 Albuterol/ Ipratropium (Albuterol/ Ipratropium) 3 ml Q6HRT HHN 08/16/19 19:00 08/21/19 00:59 08/17/19 07:35 Dextrose (Dextrose 50%) 25 ml Q30M PRN IV Hypoglycemia 08/16/19 17:15 09/14/19 19:14 Dextrose (Dextrose 50%) 50 ml Q30M PRN IV Hypoglycemia 08/16/19 17:15 09/14/19 19:14 Dextrose/Sodium Chloride 1,000 ml @ 35 mls/hr Q24H IV 08/17/19 10:00 09/14/19 09:59 08/17/19 10:06 Heparin Sodium (Porcine) (Heparin 5000 units/ml) 5,000 units EVERY 12 HOURS SUBQ 08/16/19 21:00 09/14/19 20:59 08/17/19 08:28 Insulin Aspart (NovoLOG) Q6HR SUBQ 08/17/19 00:00 09/14/19 20:59 08/17/19 05:37 Meropenem 1 gm/ Sodium Chloride 55 ml @ 110 mls/hr Q8HR IVPB 08/16/19 22:00 08/20/19 13:59 08/17/19 05:34 Morphine Sulfate (Morphine Sulfate) 2 mg Q2H PRN IVP PAIN 4-10 08/16/19 18:30 08/22/19 14:29 Pantoprazole (Protonix) 40 mg EVERY 12 HOURS IVP 08/16/19 21:00 09/14/19 20:59 08/17/19 08:26 Sodium Hypochlorite (Dakin's Quarter Strength) 1 applic DAILY TOPIC 08/17/19 09:00 09/14/19 14:59 08/17/19 08:27 Vancomycin HCl (Vanco rx to dose) 1 ea DAILY PRN MISC Per rx protocol 08/16/19 17:30 09/15/19 17:29 Vancomycin HCl 750 mg/Sodium Chloride 275 ml @ 183.333 mls/hr Q12HR@0800,2000 IVPB 08/16/19 20:00 08/20/19 19:59 08/17/19 08:55 Manan Gomez MD Aug 17, 2019 10:14
[2019-08-17 12:00] VITALS: BP 148/81
[2019-08-17] MEDS ORDERED: cefTRIAXone 1 GM in D5W 55 ML IVPB SCH (12:00)
--- NOTE | 2019-08-17 15:53 | Critical Care Progress Note ---
Assessment/Plan Assessment/Plan IMPRESSION: 1. Respiratory failure, acute. 2. Hypoxemia. 3. Pneumonia, possible aspiration. 4. History of sepsis, 5. Severe protein-calorie malnutrition, G-tube. 6. Chronic encephalopathy. 7. aspiration 9. 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 with coke handling supervisor - Subjective Interval Events: needs suctioning off BIPAP ROS Limited/Unobtainable: Yes Condition: grave EKG Rhythm: Sinus Rhythm Residuals: minimal Tube Feeding Tolerated: yes I&O: Intake and Output 08/16/19 08/17/19 19:00 07:00 Intake Total 1245.000 ml 1824.0 ml Output Total 660 ml 400 ml Balance 585.000 ml 1424.0 ml Intake IV Total 1155.000 ml 1344.0 ml Tube Feeding 90 ml 480 ml Output Urine Total 660 ml 400 ml Critical Care - Objective Last 24 Hour Vital Signs Date Time Temp Pulse Resp B/P (MAP) Pulse Ox O2 Delivery O2 Flow Rate FiO2 08/17/19 12:53 95 21 100 Venturi Mask 8.0 40 89 21 97 08/17/19 12:00 91 08/17/19 12:00 98.9 94 20 148/81 (103) 99 08/17/19 12:00 Venturi Mask 8.0 08/17/19 08:00 97.9 99 20 140/79 (99) 98 08/17/19 08:00 85 08/17/19 08:00 Venturi Mask 8.0 08/17/19 07:41 98 Venturi Mask 8.0 40 08/17/19 07:35 79 21 99 Venturi Mask 8.0 40 82 20 97 08/17/19 04:00 97.5 81 20 131/66 (87) 99 08/17/19 04:00 Venturi Mask 8.0 08/17/19 04:00 77 08/17/19 01:30 81 20 100 Venturi Mask 8.0 40 08/17/19 01:15 76 20 98 Venturi Mask 8.0 40 08/17/19 00:00 69 08/17/19 00:00 Venturi Mask 8.0 08/17/19 00:00 97.9 74 20 121/59 (79) 100 08/16/19 20:04 79 20 99 Venturi Mask 8.0 40 08/16/19 20:00 Venturi Mask 8.0 08/16/19 20:00 75 08/16/19 20:00 97.2 79 20 135/71 (92) 100 08/16/19 19:49 75 20 97 Venturi Mask 8.0 40 08/16/19 19:48 97 Venturi Mask 8.0 40 08/16/19 16:00 Venturi Mask 8.0 08/16/19 16:00 98.1 82 21 120/58 (78) 100 82 08/16/19 16:00 72 Labs: Laboratory Tests Test 08/16/19 19:00 08/17/19 04:20 Vancomycin Level Trough 13.8 ug/mL (5.0-12.0) H White Blood Count 8.1 K/UL (4.8-10.8) Red Blood Count 3.56 M/UL (4.70-6.10) L Hemoglobin 8.2 G/DL (14.2-18.0) L Hematocrit 27.5 % (42.0-52.0) L Mean Corpuscular Volume 77 FL (80-99) L Mean Corpuscular Hemoglobin 23.0 PG (27.0-31.0) L Mean Corpuscular Hemoglobin Concent 29.7 G/DL (32.0-36.0) L Red Cell Distribution Width 18.9 % (11.6-14.8) H Platelet Count 227 K/UL (150-450) Mean Platelet Volume 5.9 FL (6.5-10.1) L Neutrophils (%) (Auto) 78.4 % (45.0-75.0) H Lymphocytes (%) (Auto) 13.3 % (20.0-45.0) L Monocytes (%) (Auto) 7.4 % (1.0-10.0) Eosinophils (%) (Auto) 0.5 % (0.0-3.0) Basophils (%) (Auto) 0.4 % (0.0-2.0) Sodium Level 142 MMOL/L (136-145) Potassium Level 3.7 MMOL/L (3.5-5.1) Chloride Level 110 MMOL/L (98-107) H Carbon Dioxide Level 26 MMOL/L (21-32) Anion Gap 6 mmol/L (5-15) Blood Urea Nitrogen 12 mg/dL (7-18) Creatinine 0.5 MG/DL (0.55-1.30) L Estimat Glomerular Filtration Rate mL/min (>60) Glucose Level 99 MG/DL (74-106) Calcium Level 7.9 MG/DL (8.5-10.1) L Total Bilirubin 0.2 MG/DL (0.2-1.0) Aspartate Amino Transf (AST/SGOT) 21 U/L (15-37) Alanine Aminotransferase (ALT/SGPT) 30 U/L (12-78) Alkaline Phosphatase 73 U/L (46-116) Total Protein 5.9 G/DL (6.4-8.2) L Albumin 1.6 G/DL (3.4-5.0) L Globulin 4.3 g/dL Albumin/Globulin Ratio 0.4 (1.0-2.7) L Objective: GENERAL: The patient is an ill-appearing male, chronically ill. HEENT: Negative. Mucous membranes are dry. NECK: Supple. LUNGS: Coarse breath sounds, moderate air entry. same CARDIAC: S1, S2. RRR without murmurs, rubs, or gallops. ABDOMEN: Overall soft and nontender. G-tube in place. no distention EXTREMITIES: No cyanosis or clubbing. No significant contractures. NEUROLOGICAL: Poorly responsive. rigid SKIN: Noted and reviewed. Micro: Microbiology Date/Time Source Procedure Growth Status 08/15/19 07:05 Blood Blood Culture - Preliminary NO GROWTH AFTER 24 HOURS Resulted 08/15/19 06:50 Blood Blood Culture - Preliminary NO GROWTH AFTER 24 HOURS Resulted 08/15/19 08:39 Nasal Nares MRSA Culture - Final NO METHICILLIN RESISTANT STAPH AUREUS... Complete 08/15/19 07:30 Urine,Clean Catch Urine Culture - Preliminary Proteus Mirabilis Resulted 08/15/19 08:39 Rectum VRE Culture - Final NO VANCOMYCIN RESISTANT ENTEROCOCCUS ... Complete 08/15/19 08:39 Rectum - Final NO CARBAPENEM-RESISTANT ENTEROBACTERI... Complete Accucheck: 116 Tim Andrade MD Aug 17, 2019 15:53
[2019-08-17 16:00] VITALS: BP 151/75
[2019-08-17 20:00] VITALS: BP 150/69
[2019-08-18] VITALS: BP 150/77
[2019-08-18] MEDS: Albuterol/Ipratropium 3ml neb HHN SCH ×4 (00:59→20:17)
[2019-08-18 04:00] VITALS: BP_SYST 133; BP_SYST 155; BP_DIAS 70; BP_DIAS 87
[2019-08-18] MEDS: NovoLOG Insulin Flexpen SUBQ SCH ×4 (05:49→23:51)
[2019-08-18 08:00] VITALS: BP 148/83
[2019-08-18] MEDS: Pantoprazole Inj IVP SCH ×2 (08:22→20:41)
[2019-08-18] MEDS: Heparin 5000 units/ml inj SUBQ SCH ×2 (08:23→20:44)
[2019-08-18] MEDS: Dakin's 0.125% Soln (Quarter Strength) 16oz TOPIC SCH (08:23)
--- NOTE | 2019-08-18 08:46 | Critical Care Progress Note ---
Assessment/Plan Assessment/Plan IMPRESSION: 1. Respiratory failure, acute. 2. Hypoxemia. 3. Pneumonia, possible aspiration. 4. History of sepsis, 5. Severe protein-calorie malnutrition, G-tube. 6. Chronic encephalopathy. 7. aspiration 9. contractures PLAN care noted and reviewed in detail respiratory care and suctioning reviewed- still with congestion iv antibiotics reviewed care as is for now wound care monitor abg for change repeat imaging off load elevate head/aspiration precautions monitor acid base remains guarded and at risk for intubation impression, plan, and exam edited and reviewed in detail care discussed with teachers' assistant - Subjective Interval Events: care noted still with congestion on oxygen ROS Limited/Unobtainable: Yes Condition: critical EKG Rhythm: Sinus Rhythm Residuals: minimal Tube Feeding Tolerated: yes I&O: Intake and Output 08/17/19 08/18/19 18:59 06:59 Intake Total 1571.500 ml 920 ml Output Total 1100 ml 700 ml Balance 471.500 ml 220 ml Intake Free Water 100 ml 140 ml IV Total 871.500 ml 420 ml Tube Feeding 600 ml 360 ml Output Urine Total 1100 ml 700 ml Critical Care - Objective Last 24 Hour Vital Signs Date Time Temp Pulse Resp B/P (MAP) Pulse Ox O2 Delivery O2 Flow Rate FiO2 08/18/19 08:00 97.7 84 22 148/83 (104) 100 08/18/19 08:00 Venturi Mask 8.0 08/18/19 04:00 Venturi Mask 8.0 08/18/19 04:00 97.9 76 22 133/70 (91) 99 08/18/19 03:45 80 08/18/19 00:57 79 24 100 Venturi Mask 8.0 40 81 20 100 08/18/19 00:00 85 08/18/19 00:00 Venturi Mask 8.0 08/18/19 00:00 97.9 80 22 150/77 (101) 100 08/17/19 20:00 Venturi Mask 8.0 08/17/19 20:00 98.1 78 24 150/69 (96) 100 08/17/19 19:47 77 22 100 Venturi Mask 8.0 40 80 22 100 08/17/19 19:47 100 Venturi Mask 8.0 40 08/17/19 19:26 79 08/17/19 16:00 Venturi Mask 8.0 08/17/19 16:00 97.5 95 20 151/75 (100) 99 08/17/19 16:00 87 08/17/19 12:53 95 21 100 Venturi Mask 8.0 40 89 21 97 08/17/19 12:00 91 08/17/19 12:00 98.9 94 20 148/81 (103) 99 08/17/19 12:00 Venturi Mask 8.0 Objective: GENERAL: The patient is an ill-appearing male, chronically ill. HEENT: Negative. Mucous membranes are dry. NECK: Supple. LUNGS: Coarse breath sounds, moderate air entry. same CARDIAC: S1, S2. RRR without murmurs, rubs, or gallops. ABDOMEN: Overall soft and nontender. G-tube in place. no distention EXTREMITIES: No cyanosis or clubbing. No significant contractures. NEUROLOGICAL: Poorly responsive. rigid SKIN: Noted and reviewed. Accucheck: 106 Tim Andrade MD Aug 18, 2019 08:46
--- NOTE | 2019-08-18 10:01 | General Progress Note ---
Assessment/Plan Status: stable Assessment/Plan: Septicemia - -Proteus UTI, -Aspiration Pneumonia, -Infected decubiti - IV Abx.Per ID -IVF. IV AVx. Wound Care. COPD - Per Pulm. Pt. is DNI/DNR Subjective Allergies: Coded Allergies: No Known Allergies (Unverified , 02/25/19) Subjective Obtunded, confused. Objective Last 24 Hour Vital Signs Date Time Temp Pulse Resp B/P (MAP) Pulse Ox O2 Delivery O2 Flow Rate FiO2 08/18/19 09:48 97 Venturi Mask 8.0 40 08/18/19 09:48 88 20 99 Venturi Mask 8.0 40 84 20 97 08/18/19 08:00 97.7 84 22 148/83 (104) 100 08/18/19 08:00 Venturi Mask 8.0 08/18/19 07:54 85 08/18/19 04:00 Venturi Mask 8.0 08/18/19 04:00 97.9 76 22 133/70 (91) 99 08/18/19 03:45 80 08/18/19 00:57 79 24 100 Venturi Mask 8.0 40 81 20 100 08/18/19 00:00 85 08/18/19 00:00 Venturi Mask 8.0 08/18/19 00:00 97.9 80 22 150/77 (101) 100 08/17/19 20:00 Venturi Mask 8.0 08/17/19 20:00 98.1 78 24 150/69 (96) 100 08/17/19 19:47 77 22 100 Venturi Mask 8.0 40 80 22 100 08/17/19 19:47 100 Venturi Mask 8.0 40 08/17/19 19:26 79 08/17/19 16:00 Venturi Mask 8.0 08/17/19 16:00 97.5 95 20 151/75 (100) 99 08/17/19 16:00 87 08/17/19 12:53 95 21 100 Venturi Mask 8.0 40 89 21 97 08/17/19 12:00 91 08/17/19 12:00 98.9 94 20 148/81 (103) 99 08/17/19 12:00 Venturi Mask 8.0 Intake and Output 08/17/19 08/18/19 18:59 06:59 Intake Total 1571.500 ml 920 ml Output Total 1100 ml 700 ml Balance 471.500 ml 220 ml Intake Free Water 100 ml 140 ml IV Total 871.500 ml 420 ml Tube Feeding 600 ml 360 ml Output Urine Total 1100 ml 700 ml Height (Feet): 5 Height (Inches): 6.00 Weight (Pounds): 115 Objective [place]. CV RR Lungs B ronchi + wheezes. E contractures, muscle wasting. Skin Sacral decubitus, Ankle decubiti. Ervin Mario MD Aug 18, 2019 10:01
--- NOTE | 2019-08-18 10:36 | Infectious Diseases Prog Note ---
Assessment/Plan Assessment/Plan A 1. proteus/ Klebsiella UTI 2. aspiration pneumonia 3. leucocytosis resolved 4. decubitus ulcers 5. diabetes mellitus 6. hypertension P 1. Change ceftriaxone to meropenem 2. CXR Subjective ROS Limited/Unobtainable: Yes Constitutional: Denies: fever Allergies: Coded Allergies: No Known Allergies (Unverified , 02/25/19) Objective Vital Signs Last 24 Hour Vital Signs Date Time Temp Pulse Resp B/P (MAP) Pulse Ox O2 Delivery O2 Flow Rate FiO2 08/18/19 09:48 97 Venturi Mask 8.0 40 08/18/19 09:48 88 20 99 Venturi Mask 8.0 40 84 20 97 08/18/19 08:00 97.7 84 22 148/83 (104) 100 08/18/19 08:00 Venturi Mask 8.0 08/18/19 07:54 85 08/18/19 04:00 Venturi Mask 8.0 08/18/19 04:00 97.9 76 22 133/70 (91) 99 08/18/19 03:45 80 08/18/19 00:57 79 24 100 Venturi Mask 8.0 40 81 20 100 08/18/19 00:00 85 08/18/19 00:00 Venturi Mask 8.0 08/18/19 00:00 97.9 80 22 150/77 (101) 100 08/17/19 20:00 Venturi Mask 8.0 08/17/19 20:00 98.1 78 24 150/69 (96) 100 08/17/19 19:47 77 22 100 Venturi Mask 8.0 40 80 22 100 08/17/19 19:47 100 Venturi Mask 8.0 40 08/17/19 19:26 79 08/17/19 16:00 Venturi Mask 8.0 08/17/19 16:00 97.5 95 20 151/75 (100) 99 08/17/19 16:00 87 08/17/19 12:53 95 21 100 Venturi Mask 8.0 40 89 21 97 08/17/19 12:00 91 08/17/19 12:00 98.9 94 20 148/81 (103) 99 08/17/19 12:00 Venturi Mask 8.0 Height (Feet): 5 Height (Inches): 6.00 Weight (Pounds): 115 General Appearance: cachetic HEENT: mucous membranes moist Respiratory/Chest: lungs clear, other - oxygen by mask Cardiovascular: normal rate Abdomen: soft, non tender, other - GT feeding Extremities: no edema Skin: ulcers Neurologic/Psychiatric: aphasia Musculoskeletal: atrophy Current Medications Medications (Trade) Dose Ordered Sig/Mckenzie Route PRN Reason Start Time Stop Time Status Last Admin Dose Admin Acetaminophen (Tylenol) 500 mg Q6H PRN GT Mild Pain/Temp > 100.5 08/16/19 17:30 09/14/19 17:29 Albuterol/ Ipratropium (Albuterol/ Ipratropium) 3 ml Q6HRT HHN 08/16/19 19:00 08/21/19 00:59 08/18/19 09:57 Ceftriaxone Sodium 1 gm/ Dextrose 55 ml @ 110 mls/hr Q24H IVPB 08/17/19 12:00 08/24/19 11:59 08/17/19 12:05 Dextrose (Dextrose 50%) 25 ml Q30M PRN IV Hypoglycemia 08/16/19 17:15 09/14/19 19:14 Dextrose (Dextrose 50%) 50 ml Q30M PRN IV Hypoglycemia 08/16/19 17:15 09/14/19 19:14 Dextrose/Sodium Chloride 1,000 ml @ 35 mls/hr Q24H IV 08/17/19 10:00 09/14/19 09:59 08/17/19 20:12 Heparin Sodium (Porcine) (Heparin 5000 units/ml) 5,000 units EVERY 12 HOURS SUBQ 08/16/19 21:00 09/14/19 20:59 08/18/19 08:23 Insulin Aspart (NovoLOG) Q6HR SUBQ 08/17/19 00:00 09/14/19 20:59 08/17/19 17:36 Morphine Sulfate (Morphine Sulfate) 2 mg Q2H PRN IVP PAIN 4-10 08/16/19 18:30 08/22/19 14:29 Pantoprazole (Protonix) 40 mg EVERY 12 HOURS IVP 08/16/19 21:00 09/14/19 20:59 08/18/19 08:22 Sodium Hypochlorite (Dakin's Quarter Strength) 1 applic DAILY TOPIC 08/17/19 09:00 09/14/19 14:59 08/18/19 08:23 Lev Pardo MD Aug 18, 2019 10:36
[2019-08-18] MEDS ORDERED: Meropenem 500 MG in NS 55 ML IVPB SCH (10:45)
[2019-08-18] MEDS: Meropenem 1gm/NS 110ml IVPB SCH ×4 (11:40→20:41)
[2019-08-18 12:00] VITALS: BP 146/87
--- NOTE | 2019-08-18 13:37 | Surgery Progress Note ---
Surgery Progress Note Subjective Additional Comments no acute events labs noted exam stable no plans for acute surgical intervention Objective Last 24 Hour Vital Signs Date Time Temp Pulse Resp B/P (MAP) Pulse Ox O2 Delivery O2 Flow Rate FiO2 08/18/19 12:00 98.0 99 22 146/87 (106) 98 08/18/19 12:00 Venturi Mask 8.0 08/18/19 09:48 97 Venturi Mask 8.0 40 08/18/19 09:48 88 20 99 Venturi Mask 8.0 40 84 20 97 08/18/19 08:00 97.7 84 22 148/83 (104) 100 08/18/19 08:00 Venturi Mask 8.0 08/18/19 07:54 85 08/18/19 04:00 Venturi Mask 8.0 08/18/19 04:00 97.9 76 22 133/70 (91) 99 08/18/19 03:45 80 08/18/19 00:57 79 24 100 Venturi Mask 8.0 40 81 20 100 08/18/19 00:00 85 08/18/19 00:00 Venturi Mask 8.0 08/18/19 00:00 97.9 80 22 150/77 (101) 100 08/17/19 20:00 Venturi Mask 8.0 08/17/19 20:00 98.1 78 24 150/69 (96) 100 08/17/19 19:47 77 22 100 Venturi Mask 8.0 40 80 22 100 08/17/19 19:47 100 Venturi Mask 8.0 40 08/17/19 19:26 79 08/17/19 16:00 Venturi Mask 8.0 08/17/19 16:00 97.5 95 20 151/75 (100) 99 08/17/19 16:00 87 I&O Intake and Output 08/17/19 08/18/19 18:59 06:59 Intake Total 1571.500 ml 920 ml Output Total 1100 ml 700 ml Balance 471.500 ml 220 ml Intake Free Water 100 ml 140 ml IV Total 871.500 ml 420 ml Tube Feeding 600 ml 360 ml Output Urine Total 1100 ml 700 ml Dressing: saturated Wound: other Drains: other Cardiovascular: RSR Respiratory: decreased breath sounds Abdomen: soft, present bowel sounds Extremities: other Plan Problems: (1) Respiratory distress (2) Sepsis Assessment & Plan: leukocytosis - resolved lactic acidosis - resolved anemia on abx cont current care cxr noted (3) Protein-calorie malnutrition, severe (4) Decubitus ulcer of trochanteric region of left hip Assessment & Plan: Pt presented on admission with contractures, multiple pressure injuries. Hyperpigmentation noted to sacrum from previous pressure injury. Full thickness pressure injury L trochanteric with undermining. Base of wound has 90% burgess slough. Bone is palpable. Wound is malodorous.(L)6cm x (W)4cm x (D) 2cm , Undermining clockwise 12-12 by 3cm @6o'clock. Small amt of purulent brown exudate noted. Resolving pressure injury L ischium. Dry brown eschar with surrounding pink epithelial borders.(L)1cm x (W)1cm. DTPI R ischium . Base of wound is maroon ,fluctuant with red tinged margins. Wound is within previously resolved wound . surrounding hyperpigmentation with scarring. Resolving Full thickness pressure injury idalia R tibia . Base of wound has pink granulation. Edges are adherent and pink. No odor or exudate noted.(L) 5.5cm x (W)0.6cm. Resolving pressure injury plantar R hallux ,Base of wound moist-viable with surrounding pink epithelial. (L)1cm x (W)1.4cm. Full thickness wound lateral L foot extending from base of L 5th metatarsal to L heel and plantar L heel (L)4.5cm x (W)18.5cm. Base of wound has scattered slough ,90% pink granulation.Edges are macerated.Wound is malodorous. Full thickness pressure injury L hallux and plantar aspect. Base of wound has 100% soft necrosis. Wound is malodorous. (L)6.5cm x (W)5.5cm. Tips of L 2nd 3rd and 4th metatarsals has soft necrosis. Full thickness sacral pressure injury noted. Base of wound with some pink granulation and some slough .edges adherent to base of wound. Brown discoloration without fluctuance /induration noted periwound. 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 Base of wound moist-pink , bone is palpable. Periwound is dark without erythema or induration with undermining Full thickness stage 4 pressure injury L ischium .Base of wound some pink granulation and some slough ,erythematous borders. Periwound dark and indurated. Scrotal area area red. Full thickness pressure injury base of scrotum. Base of wound has sloth. Full thickness wound idalia R tibia. [place] granulation at base of wound. Edges adherent. No odor or exudate noted. Periwound without erythema or elevation in skin temp Full thickness wound lateral/plantar L foot. [place] granulation at base of wound with scattered slough.Bone is palpable. Mild odor noted .Small amt seropurulent exudate noted. Edges macerated. Periwound is fluctuant. L st metatarsal flaccid. Full thickness ulcer noted to plantar L foot. Base of wound moist -viable with pink epithelial borders. Periwound is fluctuant. Small amt serous exudate noted. Full thickness wound medial L foot. slough at base of wound,. Macerated borders. Mild odor noted. Tx.Plan: Cleanse all wounds Buttocks with Dakin's 0.125% daysi. Apply Dakin's moist gauze to wounds. Cover with Optifoam drsgs. Cleanse wounds L foot with Dakin's 0.125% daysi. Apply Dakin's moist gauze to wounds. Cover with ABD pads and wrap with Kerlix daily and prn. Cleanse wounds R tibia, and R foot with Dakin's 0.125% daysi. Apply Dakin's moist gauze cover with Abd pads and wrap with Kerlix daily and prn. Apply Moisture Barrier Paste to wound on scrotum. Cover with Optifoam drsg. Daily and prn. APM/KAVON Mattress overlay. Reposition at least every 2hours or as tolerated. Place pillow between knees. Off-load heels with pillow. (5) Ulcer of lower extremity excluding decubitus ulcer Assessment & Plan: appreciate podiatry input cont with wound care as above thank you Additional Comments patient dnr/dni no plans for surgery Rios Quiñones Aug 18, 2019 13:37
[2019-08-18] MEDS ORDERED: NS 275ml ONE (13:41)
[2019-08-18] MEDS ORDERED: D5 1/2NS 1000ml IV ONE (13:41)
[2019-08-18] MEDS ORDERED: Tubing IV Secondary IV ONE (13:41)
[2019-08-18 16:00] VITALS: BP 133/72
[2019-08-18 20:00] VITALS: BP 152/84
[2019-08-19] VITALS: BP 152/89
[2019-08-19] MEDS: D5 1/2NS 1,000 ML IV SCH (00:05)
[2019-08-19] MEDS: Albuterol/Ipratropium 3ml neb HHN SCH ×4 (01:27→19:29)
[2019-08-19 04:00] VITALS: BP 139/73
[2019-08-19] MEDS: NovoLOG Insulin Flexpen SUBQ SCH ×4 (06:00→23:56)
[2019-08-19 08:00] VITALS: BP 148/80
--- NOTE | 2019-08-19 08:07 | Critical Care Progress Note ---
Assessment/Plan Assessment/Plan IMPRESSION: 1. Respiratory failure, acute. 2. Hypoxemia. 3. Pneumonia, possible aspiration. 4. History of sepsis, 5. Severe protein-calorie malnutrition, G-tube. 6. Chronic encephalopathy. 7. aspiration 9. contractures PLAN care noted and reviewed in detail respiratory care -still requires suctioning unable to cough iv antibiotics reviewed care as is for now wound care monitor abg for change repeat imaging- pending off load elevate head/aspiration precautions monitor acid base remains guarded and at risk for intubation not ready for dc to snf impression, plan, and exam edited and reviewed in detail care discussed with process checker - Subjective Interval Events: still with congestion currently on oxygen only poor LOC ROS Limited/Unobtainable: Yes Condition: unchanged EKG Rhythm: Sinus Rhythm Residuals: minimal Tube Feeding Tolerated: yes I&O: Intake and Output 08/18/19 08/19/19 19:00 07:00 Intake Total 870 ml 715 ml Output Total 2100 ml 800 ml Balance -1230 ml -85 ml Intake Free Water 90 ml 100 ml IV Total 420 ml 285 ml Tube Feeding 360 ml 330 ml Output Urine Total 2100 ml 800 ml Critical Care - Objective Last 24 Hour Vital Signs Date Time Temp Pulse Resp B/P (MAP) Pulse Ox O2 Delivery O2 Flow Rate FiO2 08/19/19 08:00 98.2 91 20 148/80 (102) 100 08/19/19 08:00 Venturi Mask 8.0 08/19/19 07:20 92 18 100 Venturi Mask 6.0 35 90 18 99 08/19/19 07:20 99 Venturi Mask 6.0 35 08/19/19 04:00 98.1 74 20 139/73 (95) 100 08/19/19 04:00 Venturi Mask 8.0 08/19/19 03:43 80 08/19/19 01:28 94 20 99 Venturi Mask 6.0 35 91 18 98 08/19/19 00:00 97.9 88 20 152/89 (110) 100 08/19/19 00:00 Venturi Mask 8.0 08/18/19 23:28 90 08/18/19 20:00 91 20 100 Venturi Mask 6.0 35 89 18 94 08/18/19 20:00 98.1 90 20 152/84 (106) 100 08/18/19 20:00 97 Venturi Mask 6.0 35 9/22/19 20:00 Venturi Mask 8.0 08/18/19 19:54 82 08/18/19 16:00 97.9 94 22 133/72 (92) 97 08/18/19 16:00 Venturi Mask 8.0 08/18/19 15:33 97 08/18/19 13:50 83 20 99 Venturi Mask 8.0 40 85 20 96 08/18/19 12:00 98.0 99 22 146/87 (106) 98 08/18/19 12:00 Venturi Mask 8.0 08/18/19 11:52 95 08/18/19 09:48 97 Venturi Mask 8.0 40 08/18/19 09:48 88 20 99 Venturi Mask 8.0 40 84 20 97 Labs: Labs Test 08/16/19 08:22 08/16/19 19:00 08/17/19 04:20 Arterial Blood pH 7.441 (7.350-7.450) Arterial Blood Partial Pressure CO2 39.7 mmHg (35.0-45.0) Arterial Blood Partial Pressure O2 95.0 mmHg (75.0-100.0) Arterial Blood HCO3 26.4 mmol/L (22.0-26.0) Arterial Blood Oxygen Saturation 97.2 % (95-100) Arterial Blood Base Excess 2.2 (-2-2) Rhett Test Positive Vancomycin Level Trough 13.8 ug/mL (5.0-12.0) White Blood Count 8.1 K/UL (4.8-10.8) Red Blood Count 3.56 M/UL (4.70-6.10) Hemoglobin 8.2 G/DL (14.2-18.0) Hematocrit 27.5 % (42.0-52.0) Mean Corpuscular Volume 77 FL (80-99) Mean Corpuscular Hemoglobin 23.0 PG (27.0-31.0) Mean Corpuscular Hemoglobin Concent 29.7 G/DL (32.0-36.0) Red Cell Distribution Width 18.9 % (11.6-14.8) Platelet Count 227 K/UL (150-450) Mean Platelet Volume 5.9 FL (6.5-10.1) Neutrophils (%) (Auto) 78.4 % (45.0-75.0) Lymphocytes (%) (Auto) 13.3 % (20.0-45.0) Monocytes (%) (Auto) 7.4 % (1.0-10.0) Eosinophils (%) (Auto) 0.5 % (0.0-3.0) Basophils (%) (Auto) 0.4 % (0.0-2.0) Sodium Level 142 MMOL/L (136-145) Potassium Level 3.7 MMOL/L (3.5-5.1) Chloride Level 110 MMOL/L (98-107) Carbon Dioxide Level 26 MMOL/L (21-32) Anion Gap 6 mmol/L (5-15) Blood Urea Nitrogen 12 mg/dL (7-18) Creatinine 0.5 MG/DL (0.55-1.30) Estimat Glomerular Filtration Rate mL/min (>60) Glucose Level 99 MG/DL (74-106) Calcium Level 7.9 MG/DL (8.5-10.1) Total Bilirubin 0.2 MG/DL (0.2-1.0) Aspartate Amino Transf (AST/SGOT) 21 U/L (15-37) Alanine Aminotransferase (ALT/SGPT) 30 U/L (12-78) Alkaline Phosphatase 73 U/L (46-116) Total Protein 5.9 G/DL (6.4-8.2) Albumin 1.6 G/DL (3.4-5.0) Globulin 4.3 g/dL Albumin/Globulin Ratio 0.4 (1.0-2.7) Objective: GENERAL: The patient is an ill-appearing male, chronically ill. HEENT: Negative. Mucous membranes are dry. NECK: Supple. LUNGS: Coarse breath sounds, moderate air entry. same with scattered rhonchi CARDIAC: S1, S2. RRR without murmurs, rubs, or gallops. ABDOMEN: Overall soft and nontender. G-tube in place. no distention EXTREMITIES: No cyanosis or clubbing. No significant contractures. NEUROLOGICAL: Poorly responsive. rigid SKIN: Noted and reviewed. Accucheck: 93 Tim Andrade MD Aug 19, 2019 08:07
[2019-08-19] MEDS: Dakin's 0.125% Soln (Quarter Strength) 16oz TOPIC SCH (08:18)
[2019-08-19] MEDS: Meropenem 1gm/NS 110ml IVPB SCH ×4 (08:18→21:26)
[2019-08-19] MEDS: Pantoprazole Inj IVP SCH ×2 (08:18→21:26)
[2019-08-19] MEDS: Heparin 5000 units/ml inj SUBQ SCH ×2 (08:20→21:30)
--- NOTE | 2019-08-19 11:24 | Diagnostic Imaging Report ---
Indication: Dyspnea Comparison: 08/15/2019 A single view chest radiograph was obtained. Findings: Left pulmonary infiltrate again demonstrated involving the perihilar and basilar part of the lung. New infiltrate now demonstrated at the right lung base. Heart size is stable. Lung volumes are low. IMPRESSION: Suspected new area of infiltrate right lung base. Persistent left pulmonary infiltrate.
--- NOTE | 2019-08-19 11:36 | Infectious Diseases Prog Note ---
Assessment/Plan Assessment/Plan A 1. proteus/ Klebsiella UTI 2. aspiration pneumonia 3. leucocytosis resolved 4. decubitus ulcers 5. diabetes mellitus 6. hypertension P 1. Continue meropenem 2. Frequent suctioning Subjective ROS Limited/Unobtainable: Yes Respiratory: Reports: productive cough Allergies: Coded Allergies: No Known Allergies (Unverified , 02/25/19) Objective Vital Signs Last 24 Hour Vital Signs Date Time Temp Pulse Resp B/P (MAP) Pulse Ox O2 Delivery O2 Flow Rate FiO2 08/19/19 08:00 96 08/19/19 08:00 98.2 91 20 148/80 (102) 100 08/19/19 08:00 Venturi Mask 8.0 08/19/19 07:20 92 18 100 Venturi Mask 6.0 35 90 18 99 08/19/19 07:20 99 Venturi Mask 6.0 35 08/19/19 04:00 98.1 74 20 139/73 (95) 100 08/19/19 04:00 Venturi Mask 8.0 08/19/19 03:43 80 08/19/19 01:28 94 20 99 Venturi Mask 6.0 35 91 18 98 08/19/19 00:00 97.9 88 20 152/89 (110) 100 08/19/19 00:00 Venturi Mask 8.0 08/18/19 23:28 90 08/18/19 20:00 91 20 100 Venturi Mask 6.0 35 89 18 94 08/18/19 20:00 98.1 90 20 152/84 (106) 100 08/18/19 20:00 97 Venturi Mask 6.0 35 08/18/19 20:00 Venturi Mask 8.0 08/18/19 19:54 82 08/18/19 16:00 97.9 94 22 133/72 (92) 97 08/18/19 16:00 Venturi Mask 8.0 08/18/19 15:33 97 08/18/19 13:50 83 20 99 Venturi Mask 8.0 40 85 20 96 08/18/19 12:00 98.0 99 22 146/87 (106) 98 08/18/19 12:00 Venturi Mask 8.0 08/18/19 11:52 95 Height (Feet): 5 Height (Inches): 6.00 Weight (Pounds): 114 HEENT: mucous membranes moist Respiratory/Chest: rhonchi - bilaterally, other - oxygen by mask Cardiovascular: normal rate Abdomen: soft, non tender, other - GT feeding Extremities: no edema, other - contracted legs Skin: ulcers Neurologic/Psychiatric: aphasia, other - opens eyes Musculoskeletal: atrophy Laboratory Tests Test 08/19/19 09:08 Arterial Blood pH 7.480 (7.350-7.450) Arterial Blood Partial Pressure CO2 36.5 mmHg (35.0-45.0) Arterial Blood Partial Pressure O2 86.4 mmHg (75.0-100.0) Arterial Blood HCO3 26.6 mmol/L (22.0-26.0) H Arterial Blood Oxygen Saturation 86.4 % (95-100) *L Arterial Blood Base Excess 3.0 (-2-2) H Rhett Test Positive Current Medications Medications (Trade) Dose Ordered Sig/Mckenzie Route PRN Reason Start Time Stop Time Status Last Admin Dose Admin Acetaminophen (Tylenol) 500 mg Q6H PRN GT Mild Pain/Temp > 100.5 08/16/19 17:30 09/14/19 17:29 Albuterol/ Ipratropium (Albuterol/ Ipratropium) 3 ml Q6HRT HHN 08/16/19 19:00 08/21/19 00:59 08/19/19 07:19 Dextrose (Dextrose 50%) 25 ml Q30M PRN IV Hypoglycemia 08/16/19 17:15 09/14/19 19:14 Dextrose (Dextrose 50%) 50 ml Q30M PRN IV Hypoglycemia 08/16/19 17:15 09/14/19 19:14 Dextrose/Sodium Chloride 1,000 ml @ 35 mls/hr Q24H IV 08/17/19 10:00 09/14/19 09:59 08/19/19 00:05 Heparin Sodium (Porcine) (Heparin 5000 units/ml) 5,000 units EVERY 12 HOURS SUBQ 08/16/19 21:00 09/14/19 20:59 08/19/19 08:20 Insulin Aspart (NovoLOG) Q6HR SUBQ 08/17/19 00:00 09/14/19 20:59 08/18/19 11:47 Meropenem 1 gm/ Sodium Chloride 110 ml @ 220 mls/hr Q12HR IVPB 08/18/19 12:00 08/23/19 11:59 08/19/19 08:18 Morphine Sulfate (Morphine Sulfate) 2 mg Q2H PRN IVP PAIN 4-10 08/16/19 18:30 08/22/19 14:29 Pantoprazole (Protonix) 40 mg EVERY 12 HOURS IVP 08/16/19 21:00 09/14/19 20:59 08/19/19 08:18 Sodium Hypochlorite (Dakin's Quarter Strength) 1 applic DAILY TOPIC 08/17/19 09:00 09/14/19 14:59 08/19/19 08:18 Lev Pardo MD Aug 19, 2019 11:36
[2019-08-19 12:00] VITALS: BP 143/77
--- NOTE | 2019-08-19 12:10 | General Progress Note ---
Assessment/Plan Status: stable Assessment/Plan: Septicemia - -Proteus UTI, -Aspiration Pneumonia, -Infected decubiti - IV Abx.Per ID -IVF. IV AVx. Wound Care. COPD - Per Pulm. Pt. is DNI/DNR Subjective Allergies: Coded Allergies: No Known Allergies (Unverified , 02/25/19) Subjective Obtunded, confused. Objective Last 24 Hour Vital Signs Date Time Temp Pulse Resp B/P (MAP) Pulse Ox O2 Delivery O2 Flow Rate FiO2 08/19/19 08:00 96 08/19/19 08:00 98.2 91 20 148/80 (102) 100 08/19/19 08:00 Venturi Mask 8.0 08/19/19 07:20 92 18 100 Venturi Mask 6.0 35 90 18 99 08/19/19 07:20 99 Venturi Mask 6.0 35 08/19/19 04:00 98.1 74 20 139/73 (95) 100 08/19/19 04:00 Venturi Mask 8.0 08/19/19 03:43 80 08/19/19 01:28 94 20 99 Venturi Mask 6.0 35 91 18 98 08/19/19 00:00 97.9 88 20 152/89 (110) 100 08/19/19 00:00 Venturi Mask 8.0 08/18/19 23:28 90 08/18/19 20:00 91 20 100 Venturi Mask 6.0 35 89 18 94 08/18/19 20:00 98.1 90 20 152/84 (106) 100 08/18/19 20:00 97 Venturi Mask 6.0 35 08/18/19 20:00 Venturi Mask 8.0 08/18/19 19:54 82 08/18/19 16:00 97.9 94 22 133/72 (92) 97 08/18/19 16:00 Venturi Mask 8.0 08/18/19 15:33 97 08/18/19 13:50 83 20 99 Venturi Mask 8.0 40 85 20 96 Intake and Output 08/18/19 08/19/19 18:59 06:59 Intake Total 870 ml 780 ml Output Total 2100 ml 800 ml Balance -1230 ml -20 ml Intake Free Water 90 ml 100 ml IV Total 420 ml 320 ml Tube Feeding 360 ml 360 ml Output Urine Total 2100 ml 800 ml Laboratory Tests 08/19/19 09:08: Arterial Blood pH 7.480H, Arterial Blood Partial Pressure CO2 36.5, Arterial Blood Partial Pressure O2 86.4, Arterial Blood HCO3 26.6H, Arterial Blood Oxygen Saturation 86.4*L, Arterial Blood Base Excess 3.0H, Rhett Test Positive Height (Feet): 5 Height (Inches): 6.00 Weight (Pounds): 114 Objective [place]. CV RR Lungs B ronchi + wheezes. E contractures, muscle wasting. Skin Sacral decubitus, Ankle decubiti. Ervin Mario MD Aug 19, 2019 12:10
--- NOTE | 2019-08-19 12:56 | Surgery Progress Note ---
Surgery Progress Note Subjective Additional Comments Patient seen and examined bedside. No acute events. Contracted resting comfortably with all bony prominences well-padded. Dressings intact. Objective Last 24 Hour Vital Signs Date Time Temp Pulse Resp B/P (MAP) Pulse Ox O2 Delivery O2 Flow Rate FiO2 08/19/19 12:45 90 18 100 Venturi Mask 6.0 35 89 18 100 08/19/19 12:00 97.7 86 20 143/77 (99) 99 08/19/19 12:00 Venturi Mask 8.0 08/19/19 08:00 96 08/19/19 08:00 98.2 91 20 148/80 (102) 100 08/19/19 08:00 Venturi Mask 8.0 08/19/19 07:20 92 18 100 Venturi Mask 6.0 35 90 18 99 08/19/19 07:20 99 Venturi Mask 6.0 35 08/19/19 04:00 98.1 74 20 139/73 (95) 100 08/19/19 04:00 Venturi Mask 8.0 08/19/19 03:43 80 08/19/19 01:28 94 20 99 Venturi Mask 6.0 35 91 18 98 08/19/19 00:00 97.9 88 20 152/89 (110) 100 08/19/19 00:00 Venturi Mask 8.0 08/18/19 23:28 90 08/18/19 20:00 91 20 100 Venturi Mask 6.0 35 89 18 94 08/18/19 20:00 98.1 90 20 152/84 (106) 100 08/18/19 20:00 97 Venturi Mask 6.0 35 08/18/19 20:00 Venturi Mask 8.0 08/18/19 19:54 82 08/18/19 16:00 97.9 94 22 133/72 (92) 97 08/18/19 16:00 Venturi Mask 8.0 08/18/19 15:33 97 08/18/19 13:50 83 20 99 Venturi Mask 8.0 40 85 20 96 I&O Intake and Output 08/18/19 08/19/19 18:59 06:59 Intake Total 870 ml 780 ml Output Total 2100 ml 800 ml Balance -1230 ml -20 ml Intake Free Water 90 ml 100 ml IV Total 420 ml 320 ml Tube Feeding 360 ml 360 ml Output Urine Total 2100 ml 800 ml Dressing: dry Wound: other Drains: other Cardiovascular: RSR Respiratory: decreased breath sounds Abdomen: soft, present bowel sounds, other Extremities: other Laboratory Tests Test 08/19/19 09:08 Arterial Blood pH 7.480 (7.350-7.450) Arterial Blood Partial Pressure CO2 36.5 mmHg (35.0-45.0) Arterial Blood Partial Pressure O2 86.4 mmHg (75.0-100.0) Arterial Blood HCO3 26.6 mmol/L (22.0-26.0) H Arterial Blood Oxygen Saturation 86.4 % (95-100) *L Arterial Blood Base Excess 3.0 (-2-2) H Rhett Test Positive Plan Problems: (1) Respiratory distress (2) Sepsis Assessment & Plan: leukocytosis - resolved lactic acidosis - resolved anemia on abx cont current care cxr noted (3) Protein-calorie malnutrition, severe (4) Decubitus ulcer of trochanteric region of left hip Assessment & Plan: Pt presented on admission with contractures, multiple pressure injuries. Hyperpigmentation noted to sacrum from previous pressure injury. Full thickness pressure injury L trochanteric with undermining. Base of wound has 90% burgess slough. Bone is palpable. Wound is malodorous.(L)6cm x (W)4cm x (D) 2cm , Undermining clockwise 12-12 by 3cm @6o'clock. Small amt of purulent brown exudate noted. Resolving pressure injury L ischium. Dry brown eschar with surrounding pink epithelial borders.(L)1cm x (W)1cm. DTPI R ischium . Base of wound is maroon ,fluctuant with red tinged margins. Wound is within previously resolved wound . surrounding hyperpigmentation with scarring. Resolving Full thickness pressure injury idalia R tibia . Base of wound has pink granulation. Edges are adherent and pink. No odor or exudate noted.(L) 5.5cm x (W)0.6cm. Resolving pressure injury plantar R hallux ,Base of wound moist-viable with surrounding pink epithelial. (L)1cm x (W)1.4cm. Full thickness wound lateral L foot extending from base of L 5th metatarsal to L heel and plantar L heel (L)4.5cm x (W)18.5cm. Base of wound has scattered slough ,90% pink granulation.Edges are macerated.Wound is malodorous. Full thickness pressure injury L hallux and plantar aspect. Base of wound has 100% soft necrosis. Wound is malodorous. (L)6.5cm x (W)5.5cm. Tips of L 2nd 3rd and 4th metatarsals has soft necrosis. Full thickness sacral pressure injury noted. Base of wound with some pink granulation and some slough .edges adherent to base of wound. Brown discoloration without fluctuance /induration noted periwound. 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 Base of wound moist-pink , bone is palpable. Periwound is dark without erythema or induration with undermining Full thickness stage 4 pressure injury L ischium .Base of wound some pink granulation and some slough ,erythematous borders. Periwound dark and indurated. Scrotal area area red. Full thickness pressure injury base of scrotum. Base of wound has sloth. Full thickness wound idalia R tibia. [place] granulation at base of wound. Edges adherent. No odor or exudate noted. Periwound without erythema or elevation in skin temp Full thickness wound lateral/plantar L foot. [place] granulation at base of wound with scattered slough.Bone is palpable. Mild odor noted .Small amt seropurulent exudate noted. Edges macerated. Periwound is fluctuant. L st metatarsal flaccid. Full thickness ulcer noted to plantar L foot. Base of wound moist -viable with pink epithelial borders. Periwound is fluctuant. Small amt serous exudate noted. Full thickness wound medial L foot. slough at base of wound,. Macerated borders. Mild odor noted. Tx.Plan: Cleanse all wounds Buttocks with Dakin's 0.125% daysi. Apply Dakin's moist gauze to wounds. Cover with Optifoam drsgs. Cleanse wounds L foot with Dakin's 0.125% daysi. Apply Dakin's moist gauze to wounds. Cover with ABD pads and wrap with Kerlix daily and prn. Cleanse wounds R tibia, and R foot with Dakin's 0.125% daysi. Apply Dakin's moist gauze cover with Abd pads and wrap with Kerlix daily and prn. Apply Moisture Barrier Paste to wound on scrotum. Cover with Optifoam drsg. Daily and prn. APM/KAVON Mattress overlay. Reposition at least every 2hours or as tolerated. Place pillow between knees. Off-load heels with pillow. (5) Ulcer of lower extremity excluding decubitus ulcer Assessment & Plan: appreciate podiatry input cont with wound care as above thank you Rios Quiñones Aug 19, 2019 12:56
[2019-08-19 15:51] VITALS: BP 152/84
[2019-08-19 20:00] VITALS: BP 146/78
[2019-08-20] VITALS: BP 139/72
[2019-08-20] MEDS: Albuterol/Ipratropium 3ml neb HHN SCH ×4 (01:08→19:45)
[2019-08-20 04:00] VITALS: BP 141/80
[2019-08-20 04:58] LABS: BASOPHILS % (AUTO) 0.6 % (0.0-2.0); EOSINOPHILS % (AUTO) 4.2 % (0.0-3.0); HEMATOCRIT 31.4 % (42.0-52.0); HEMOGLOBIN 9.7 G/DL (14.2-18.0); LYMPHOCYTES % (AUTO) 31.7 % (20.0-45.0); MEAN CORPUSCULAR VOLUME 75 FL (80-99); MONOCYTES % (AUTO) 10.8 % (1.0-10.0); NEUTROPHILS % (AUTO) 52.9 % (45.0-75.0); PLATELET COUNT 265 K/UL (150-450); RED BLOOD COUNT 4.17 M/UL (4.70-6.10); RED CELL DISTRIBUTION WIDTH 18.6 % (11.6-14.8); WHITE BLOOD COUNT 4.3 K/UL (4.8-10.8)
[2019-08-20 05:01] LABS: ANION GAP 5 mmol/L (5-15); BLOOD UREA NITROGEN 9 mg/dL (7-18); CALCIUM 8.1 MG/DL (8.5-10.1); CARBON DIOXIDE 29 MMOL/L (21-32); CHLORIDE 104 MMOL/L (98-107); CREATININE 0.5 MG/DL (0.55-1.30); POTASSIUM 3.8 MMOL/L (3.5-5.1); SODIUM 138 MMOL/L (136-145)
[2019-08-20] MEDS: NovoLOG Insulin Flexpen SUBQ SCH ×4 (05:21→23:43)
[2019-08-20 08:00] VITALS: BP 138/88
--- NOTE | 2019-08-20 08:11 | Critical Care Progress Note ---
Assessment/Plan Assessment/Plan IMPRESSION: 1. Respiratory failure, acute. 2. Hypoxemia. 3. Pneumonia, possible aspiration. 4. History of sepsis, 5. Severe protein-calorie malnutrition, G-tube. 6. Chronic encephalopathy. 7. aspiration 9. contractures PLAN care noted and reviewed in detail respiratory care -PRN suctioning oxygen as is iv antibiotics reviewed care as is for now wound care BIPAP PRN monitor abg for change repeat imaging- pending off load elevate head/aspiration precautions monitor acid base remains guarded and at risk for intubation not ready for dc to snf likely needs airway impression, plan, and exam edited and reviewed in detail care discussed with machine fancy stitcher - Subjective Interval Events: still with congestion overnight events reviewed ROS Limited/Unobtainable: Yes Condition: unchanged EKG Rhythm: Sinus Rhythm Residuals: minimal Tube Feeding Tolerated: yes I&O: Intake and Output 08/19/19 08/20/19 19:00 07:00 Intake Total 480 ml 975 ml Output Total 1200 ml 1000 ml Balance -720 ml -25 ml Intake Free Water 150 ml 150 ml IV Total 495 ml Tube Feeding 330 ml 330 ml Output Urine Total 1200 ml 1000 ml Critical Care - Objective Last 24 Hour Vital Signs Date Time Temp Pulse Resp B/P (MAP) Pulse Ox O2 Delivery O2 Flow Rate FiO2 08/20/19 07:14 85 18 98 Venturi Mask 6.0 35 80 18 96 08/20/19 07:14 96 Venturi Mask 6.0 35 08/20/19 04:00 Venturi Mask 8.0 08/20/19 04:00 84 08/20/19 04:00 97.8 83 19 141/80 (100) 99 08/20/19 01:08 87 18 100 Venturi Mask 6.0 35 86 18 98 08/20/19 00:00 Venturi Mask 8.0 08/20/19 00:00 98.0 83 19 139/72 (94) 99 08/20/19 00:00 87 08/19/19 20:00 97.9 94 19 146/78 (100) 100 08/19/19 20:00 Venturi Mask 8.0 08/19/19 19:31 84 18 100 Venturi Mask 6.0 35 81 18 100 08/19/19 19:29 98 Venturi Mask 6.0 35 08/19/19 19:02 88 08/19/19 16:00 Venturi Mask 8.0 08/19/19 16:00 95 08/19/19 15:51 97.5 95 20 152/84 (106) 100 08/19/19 12:45 90 18 100 Venturi Mask 6.0 35 89 18 100 08/19/19 12:00 97.7 86 20 143/77 (99) 99 08/19/19 12:00 Venturi Mask 8.0 08/19/19 12:00 89 Labs: Labs Test 08/19/19 09:08 08/20/19 03:35 Arterial Blood pH 7.480 (7.350-7.450) Arterial Blood Partial Pressure CO2 36.5 mmHg (35.0-45.0) Arterial Blood Partial Pressure O2 86.4 mmHg (75.0-100.0) Arterial Blood HCO3 26.6 mmol/L (22.0-26.0) Arterial Blood Oxygen Saturation 86.4 % (95-100) Arterial Blood Base Excess 3.0 (-2-2) Rhett Test Positive White Blood Count 4.3 K/UL (4.8-10.8) Red Blood Count 4.17 M/UL (4.70-6.10) Hemoglobin 9.7 G/DL (14.2-18.0) Hematocrit 31.4 % (42.0-52.0) Mean Corpuscular Volume 75 FL (80-99) Mean Corpuscular Hemoglobin 23.2 PG (27.0-31.0) Mean Corpuscular Hemoglobin Concent 30.7 G/DL (32.0-36.0) Red Cell Distribution Width 18.6 % (11.6-14.8) Platelet Count 265 K/UL (150-450) Mean Platelet Volume 6.2 FL (6.5-10.1) Neutrophils (%) (Auto) 52.9 % (45.0-75.0) Lymphocytes (%) (Auto) 31.7 % (20.0-45.0) Monocytes (%) (Auto) 10.8 % (1.0-10.0) Eosinophils (%) (Auto) 4.2 % (0.0-3.0) Basophils (%) (Auto) 0.6 % (0.0-2.0) Sodium Level 138 MMOL/L (136-145) Potassium Level 3.8 MMOL/L (3.5-5.1) Chloride Level 104 MMOL/L (98-107) Carbon Dioxide Level 29 MMOL/L (21-32) Anion Gap 5 mmol/L (5-15) Blood Urea Nitrogen 9 mg/dL (7-18) Creatinine 0.5 MG/DL (0.55-1.30) Estimat Glomerular Filtration Rate mL/min (>60) Glucose Level 100 MG/DL (74-106) Calcium Level 8.1 MG/DL (8.5-10.1) Objective: GENERAL: The patient is an ill-appearing male, chronically ill. poorly alert HEENT: Negative. Mucous membranes are dry. NECK: Supple. LUNGS: Coarse breath sounds, moderate air entry. same with scattered rhonchi- not yet improved CARDIAC: S1, S2. RRR without murmurs, rubs, or gallops. ABDOMEN: Overall soft and nontender. G-tube in place. no distention. no HSM EXTREMITIES: No cyanosis or clubbing. No significant contractures. NEUROLOGICAL: Poorly responsive. rigid SKIN: Noted and reviewed. reviewed and examined Accucheck: 114 Tim Andrade MD Aug 20, 2019 08:11
[2019-08-20] MEDS ORDERED: Tubing IV Secondary IV ONE (09:55)
[2019-08-20] MEDS ORDERED: D5 1/2NS 1000ml IV ONE (09:55)
[2019-08-20] MEDS ORDERED: NS 275ml ONE (09:55)
[2019-08-20] MEDS: Pantoprazole Inj IVP SCH ×2 (10:05→20:38)
[2019-08-20] MEDS: Dakin's 0.125% Soln (Quarter Strength) 16oz TOPIC SCH (10:06)
[2019-08-20] MEDS: Meropenem 1gm/NS 110ml IVPB SCH ×4 (10:06→20:38)
[2019-08-20] MEDS: Heparin 5000 units/ml inj SUBQ SCH ×2 (10:08→20:37)
[2019-08-20] MEDS: D5 1/2NS 1,000 ML IV SCH (10:11)
--- NOTE | 2019-08-20 10:50 | Infectious Diseases Prog Note ---
"Assessment/Plan Assessment/Plan antibiotics : meropenem A 1. proteus | klebsiella UTI 2. aspiration pneumonia 3. leucocytosis resolved 4. decubitus ulcers 5. diabetes mellitus 6. hypertension P 1. continue meropenem 1 more day 2. will follow up cultures Subjective ROS Limited/Unobtainable: Yes Allergies: Coded Allergies: No Known Allergies (Unverified , 02/25/19) Objective Vital Signs Last 24 Hour Vital Signs Date Time Temp Pulse Resp B/P (MAP) Pulse Ox O2 Delivery O2 Flow Rate FiO2 08/20/19 07:14 85 18 98 Venturi Mask 6.0 35 80 18 96 08/20/19 07:14 96 Venturi Mask 6.0 35 08/20/19 04:00 Venturi Mask 8.0 08/20/19 04:00 84 08/20/19 04:00 97.8 83 19 141/80 (100) 99 08/20/19 01:08 87 18 100 Venturi Mask 6.0 35 86 18 98 08/20/19 00:00 Venturi Mask 8.0 08/20/19 00:00 98.0 83 19 139/72 (94) 99 08/20/19 00:00 87 08/19/19 20:00 97.9 94 19 146/78 (100) 100 08/19/19 20:00 Venturi Mask 8.0 08/19/19 19:31 84 18 100 Venturi Mask 6.0 35 81 18 100 08/19/19 19:29 98 Venturi Mask 6.0 35 08/19/19 19:02 88 08/19/19 16:00 Venturi Mask 8.0 08/19/19 16:00 95 08/19/19 15:51 97.5 95 20 152/84 (106) 100 08/19/19 12:45 90 18 100 Venturi Mask 6.0 35 89 18 100 08/19/19 12:00 97.7 86 20 143/77 (99) 99 08/19/19 12:00 Venturi Mask 8.0 08/19/19 12:00 89 Height (Feet): 5 Height (Inches): 6.00 Weight (Pounds): 114 Respiratory/Chest: lungs clear Cardiovascular: normal rate, regular rhythm, no gallop/murmur Abdomen: soft, non tender, other - GT Extremities: no edema Laboratory Tests Test 08/20/19 03:35 White Blood Count 4.3 K/UL (4.8-10.8) L Red Blood Count 4.17 M/UL (4.70-6.10) L Hemoglobin 9.7 G/DL (14.2-18.0) L Hematocrit 31.4 % (42.0-52.0) L Mean Corpuscular Volume 75 FL (80-99) L Mean Corpuscular Hemoglobin 23.2 PG (27.0-31.0) L Mean Corpuscular Hemoglobin Concent 30.7 G/DL (32.0-36.0) L Red Cell Distribution Width 18.6 % (11.6-14.8) H Platelet Count 265 K/UL (150-450) Mean Platelet Volume 6.2 FL (6.5-10.1) L Neutrophils (%) (Auto) 52.9 % (45.0-75.0) Lymphocytes (%) (Auto) 31.7 % (20.0-45.0) Monocytes (%) (Auto) 10.8 % (1.0-10.0) H Eosinophils (%) (Auto) 4.2 % (0.0-3.0) H Basophils (%) (Auto) 0.6 % (0.0-2.0) Sodium Level 138 MMOL/L (136-145) Potassium Level 3.8 MMOL/L (3.5-5.1) Chloride Level 104 MMOL/L (98-107) Carbon Dioxide Level 29 MMOL/L (21-32) Anion Gap 5 mmol/L (5-15) Blood Urea Nitrogen 9 mg/dL (7-18) Creatinine 0.5 MG/DL (0.55-1.30) L Estimat Glomerular Filtration Rate mL/min (>60) Glucose Level 100 MG/DL (74-106) Calcium Level 8.1 MG/DL (8.5-10.1) L Current Medications Medications (Trade) Dose Ordered Sig/Mckenzie Route PRN Reason Start Time Stop Time Status Last Admin Dose Admin Acetaminophen (Tylenol) 500 mg Q6H PRN GT Mild Pain/Temp > 100.5 08/16/19 17:30 09/14/19 17:29 Albuterol/ Ipratropium (Albuterol/ Ipratropium) 3 ml Q6HRT HHN 08/16/19 19:00 08/21/19 00:59 08/20/19 07:13 Dextrose (Dextrose 50%) 25 ml Q30M PRN IV Hypoglycemia 08/16/19 17:15 09/14/19 19:14 Dextrose (Dextrose 50%) 50 ml Q30M PRN IV Hypoglycemia 08/16/19 17:15 09/14/19 19:14 Dextrose/Sodium Chloride 1,000 ml @ 35 mls/hr Q24H IV 08/17/19 10:00 09/14/19 09:59 08/20/19 10:11 Heparin Sodium (Porcine) (Heparin 5000 units/ml) 5,000 units EVERY 12 HOURS SUBQ 08/16/19 21:00 09/14/19 20:59 08/20/19 10:08 Insulin Aspart (NovoLOG) Q6HR SUBQ 08/17/19 00:00 09/14/19 20:59 08/20/19 05:21 Meropenem 1 gm/ Sodium Chloride 110 ml @ 220 mls/hr Q12HR IVPB 08/18/19 12:00 08/23/19 11:59 08/20/19 10:06 Morphine Sulfate (Morphine Sulfate) 2 mg Q2H PRN IVP PAIN 4-10 08/16/19 18:30 08/22/19 14:29 Pantoprazole (Protonix) 40 mg EVERY 12 HOURS IVP 08/16/19 21:00 09/14/19 20:59 08/20/19 10:05 Sodium Hypochlorite (Dakin's Quarter Strength) 1 applic DAILY TOPIC 08/17/19 09:00 09/14/19 14:59 08/20/19 10:06 Manan Gomez MD Aug 20, 2019 10:50"
[2019-08-20 12:00] VITALS: BP 147/79
--- NOTE | 2019-08-20 13:21 | Nephrology Progress Note ---
Assessment/Plan Assessment hypertension DM UTI aspiration pneumonia leukocytosis resolution post sepsis Continued decubitus ulcers bilateral lower limb severe contraction cachexia/weakness Plan CBC, BMP in am Continue to monitor WBC, urine and renal function Subjective Subjective No new events. Objective Objective Last 24 Hour Vital Signs Date Time Temp Pulse Resp B/P (MAP) Pulse Ox O2 Delivery O2 Flow Rate FiO2 08/20/19 08:00 75 08/20/19 08:00 Venturi Mask 8.0 08/20/19 08:00 96.8 102 19 138/88 (105) 99 08/20/19 07:14 85 18 98 Venturi Mask 6.0 35 80 18 96 08/20/19 07:14 96 Venturi Mask 6.0 35 08/20/19 04:00 Venturi Mask 8.0 08/20/19 04:00 84 08/20/19 04:00 97.8 83 19 141/80 (100) 99 08/20/19 01:08 87 18 100 Venturi Mask 6.0 35 86 18 98 08/20/19 00:00 Venturi Mask 8.0 08/20/19 00:00 98.0 83 19 139/72 (94) 99 08/20/19 00:00 87 08/19/19 20:00 97.9 94 19 146/78 (100) 100 08/19/19 20:00 Venturi Mask 8.0 08/19/19 19:31 84 18 100 Venturi Mask 6.0 35 81 18 100 08/19/19 19:29 98 Venturi Mask 6.0 35 08/19/19 19:02 88 08/19/19 16:00 Venturi Mask 8.0 08/19/19 16:00 95 08/19/19 15:51 97.5 95 20 152/84 (106) 100 Intake and Output 08/19/19 08/20/19 19:00 07:00 Intake Total 480 ml 975 ml Output Total 1200 ml 1000 ml Balance -720 ml -25 ml Intake Free Water 150 ml 150 ml IV Total 495 ml Tube Feeding 330 ml 330 ml Output Urine Total 1200 ml 1000 ml Laboratory Tests 08/20/19 03:35: White Blood Count 4.3L, Red Blood Count 4.17L, Hemoglobin 9.7L, Hematocrit 31.4L , Mean Corpuscular Volume 75L, Mean Corpuscular Hemoglobin 23.2L, Mean Corpuscular Hemoglobin Concent 30.7L, Red Cell Distribution Width 18.6H, Platelet Count 265, Mean Platelet Volume 6.2L, Neutrophils (%) (Auto) 52.9, Lymphocytes (%) (Auto) 31.7, Monocytes (%) (Auto) 10.8H, Eosinophils (%) (Auto) 4.2H, Basophils (%) (Auto) 0.6, Sodium Level 138, Potassium Level 3.8, Chloride Level 104, Carbon Dioxide Level 29, Anion Gap 5, Blood Urea Nitrogen 9, Creatinine 0.5L, Estimat Glomerular Filtration Rate , Glucose Level 100, Calcium Level 8.1L Height (Feet): 5 Height (Inches): 6.00 Weight (Pounds): 114 Objective Observed resting, nonverbal, noninteractive, head atraumatic, cachectic/thin mech/vent dependent RRR, no murmur no resp distress/lungs clear g-tube feeder/patent aguilera/clear yellow urine bilateral lower limbs severely contracted wounds/Yamilex covered, no saturation or exudate noted afebrile Shira Bain N.P. Aug 20, 2019 13:21
--- NOTE | 2019-08-20 14:36 | Surgery Progress Note ---
Surgery Progress Note Subjective Additional Comments no acute events exam stable labs noted and slightly improved Objective Last 24 Hour Vital Signs Date Time Temp Pulse Resp B/P (MAP) Pulse Ox O2 Delivery O2 Flow Rate FiO2 08/20/19 13:34 94 18 98 Venturi Mask 6.0 35 08/20/19 13:34 92 18 100 Venturi Mask 6.0 35 94 18 98 08/20/19 12:00 96.8 97 19 147/79 (101) 100 08/20/19 12:00 100 08/20/19 12:00 Venturi Mask 8.0 08/20/19 08:00 75 08/20/19 08:00 Venturi Mask 8.0 08/20/19 08:00 96.8 102 19 138/88 (105) 99 08/20/19 07:14 85 18 98 Venturi Mask 6.0 35 80 18 96 08/20/19 07:14 96 Venturi Mask 6.0 35 08/20/19 04:00 Venturi Mask 8.0 08/20/19 04:00 84 08/20/19 04:00 97.8 83 19 141/80 (100) 99 08/20/19 01:08 87 18 100 Venturi Mask 6.0 35 86 18 98 08/20/19 00:00 Venturi Mask 8.0 08/20/19 00:00 98.0 83 19 139/72 (94) 99 08/20/19 00:00 87 08/19/19 20:00 97.9 94 19 146/78 (100) 100 08/19/19 20:00 Venturi Mask 8.0 08/19/19 19:31 84 18 100 Venturi Mask 6.0 35 81 18 100 08/19/19 19:29 98 Venturi Mask 6.0 35 08/19/19 19:02 88 08/19/19 16:00 Venturi Mask 8.0 08/19/19 16:00 95 08/19/19 15:51 97.5 95 20 152/84 (106) 100 I&O Intake and Output 08/19/19 08/20/19 19:00 07:00 Intake Total 480 ml 975 ml Output Total 1200 ml 1000 ml Balance -720 ml -25 ml Intake Free Water 150 ml 150 ml IV Total 495 ml Tube Feeding 330 ml 330 ml Output Urine Total 1200 ml 1000 ml Dressing: saturated Wound: other Drains: other Cardiovascular: RSR Respiratory: clear Abdomen: soft, flat Extremities: cyanosis, no tenderness, pulses, other Laboratory Tests Test 08/20/19 03:35 White Blood Count 4.3 K/UL (4.8-10.8) L Red Blood Count 4.17 M/UL (4.70-6.10) L Hemoglobin 9.7 G/DL (14.2-18.0) L Hematocrit 31.4 % (42.0-52.0) L Mean Corpuscular Volume 75 FL (80-99) L Mean Corpuscular Hemoglobin 23.2 PG (27.0-31.0) L Mean Corpuscular Hemoglobin Concent 30.7 G/DL (32.0-36.0) L Red Cell Distribution Width 18.6 % (11.6-14.8) H Platelet Count 265 K/UL (150-450) Mean Platelet Volume 6.2 FL (6.5-10.1) L Neutrophils (%) (Auto) 52.9 % (45.0-75.0) Lymphocytes (%) (Auto) 31.7 % (20.0-45.0) Monocytes (%) (Auto) 10.8 % (1.0-10.0) H Eosinophils (%) (Auto) 4.2 % (0.0-3.0) H Basophils (%) (Auto) 0.6 % (0.0-2.0) Sodium Level 138 MMOL/L (136-145) Potassium Level 3.8 MMOL/L (3.5-5.1) Chloride Level 104 MMOL/L (98-107) Carbon Dioxide Level 29 MMOL/L (21-32) Anion Gap 5 mmol/L (5-15) Blood Urea Nitrogen 9 mg/dL (7-18) Creatinine 0.5 MG/DL (0.55-1.30) L Estimat Glomerular Filtration Rate mL/min (>60) Glucose Level 100 MG/DL (74-106) Calcium Level 8.1 MG/DL (8.5-10.1) L Plan Problems: (1) Respiratory distress (2) Sepsis Assessment & Plan: leukocytosis - resolved lactic acidosis - resolved anemia on abx cont current care cxr noted (3) Protein-calorie malnutrition, severe (4) Decubitus ulcer of trochanteric region of left hip Assessment & Plan: Pt presented on admission with contractures, multiple pressure injuries. Hyperpigmentation noted to sacrum from previous pressure injury. Full thickness pressure injury L trochanteric with undermining. Base of wound has 90% burgess slough. Bone is palpable. Wound is malodorous.(L)6cm x (W)4cm x (D) 2cm , Undermining clockwise 12-12 by 3cm @6o'clock. Small amt of purulent brown exudate noted. Resolving pressure injury L ischium. Dry brown eschar with surrounding pink epithelial borders.(L)1cm x (W)1cm. DTPI R ischium . Base of wound is maroon ,fluctuant with red tinged margins. Wound is within previously resolved wound . surrounding hyperpigmentation with scarring. Resolving Full thickness pressure injury idalia R tibia . Base of wound has pink granulation. Edges are adherent and pink. No odor or exudate noted.(L) 5.5cm x (W)0.6cm. Resolving pressure injury plantar R hallux ,Base of wound moist-viable with surrounding pink epithelial. (L)1cm x (W)1.4cm. Full thickness wound lateral L foot extending from base of L 5th metatarsal to L heel and plantar L heel (L)4.5cm x (W)18.5cm. Base of wound has scattered slough ,90% pink granulation.Edges are macerated.Wound is malodorous. Full thickness pressure injury L hallux and plantar aspect. Base of wound has 100% soft necrosis. Wound is malodorous. (L)6.5cm x (W)5.5cm. Tips of L 2nd 3rd and 4th metatarsals has soft necrosis. Full thickness sacral pressure injury noted. Base of wound with some pink granulation and some slough .edges adherent to base of wound. Brown discoloration without fluctuance /induration noted periwound. 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 Base of wound moist-pink , bone is palpable. Periwound is dark without erythema or induration with undermining Full thickness stage 4 pressure injury L ischium .Base of wound some pink granulation and some slough ,erythematous borders. Periwound dark and indurated. Scrotal area area red. Full thickness pressure injury base of scrotum. Base of wound has sloth. Full thickness wound idalia R tibia. [place] granulation at base of wound. Edges adherent. No odor or exudate noted. Periwound without erythema or elevation in skin temp Full thickness wound lateral/plantar L foot. [place] granulation at base of wound with scattered slough.Bone is palpable. Mild odor noted .Small amt seropurulent exudate noted. Edges macerated. Periwound is fluctuant. L st metatarsal flaccid. Full thickness ulcer noted to plantar L foot. Base of wound moist -viable with pink epithelial borders. Periwound is fluctuant. Small amt serous exudate noted. Full thickness wound medial L foot. slough at base of wound,. Macerated borders. Mild odor noted. Tx.Plan: Cleanse all wounds Buttocks with Dakin's 0.125% daysi. Apply Dakin's moist gauze to wounds. Cover with Optifoam drsgs. Cleanse wounds L foot with Dakin's 0.125% daysi. Apply Dakin's moist gauze to wounds. Cover with ABD pads and wrap with Kerlix daily and prn. Cleanse wounds R tibia, and R foot with Dakin's 0.125% daysi. Apply Dakin's moist gauze cover with Abd pads and wrap with Kerlix daily and prn. Apply Moisture Barrier Paste to wound on scrotum. Cover with Optifoam drsg. Daily and prn. APM/KAVON Mattress overlay. Reposition at least every 2hours or as tolerated. Place pillow between knees. Off-load heels with pillow. (5) Ulcer of lower extremity excluding decubitus ulcer Assessment & Plan: appreciate podiatry input cont with wound care as above thank you Rios Quiñones Aug 20, 2019 14:35
[2019-08-20 16:00] VITALS: BP 140/80
[2019-08-20 20:00] VITALS: BP 128/75
[2019-08-21] VITALS: BP 146/78
[2019-08-21 04:00] VITALS: BP 145/87
[2019-08-21 05:03] LABS: BASOPHILS % (AUTO) 0.7 % (0.0-2.0); EOSINOPHILS % (AUTO) 4.9 % (0.0-3.0); HEMATOCRIT 31.8 % (42.0-52.0); HEMOGLOBIN 9.7 G/DL (14.2-18.0); LYMPHOCYTES % (AUTO) 33.1 % (20.0-45.0); MEAN CORPUSCULAR VOLUME 75 FL (80-99); MONOCYTES % (AUTO) 10.4 % (1.0-10.0); NEUTROPHILS % (AUTO) 50.9 % (45.0-75.0); PLATELET COUNT 299 K/UL (150-450); RED BLOOD COUNT 4.22 M/UL (4.70-6.10); RED CELL DISTRIBUTION WIDTH 18.8 % (11.6-14.8); WHITE BLOOD COUNT 4.6 K/UL (4.8-10.8)
[2019-08-21 05:24] LABS: ANION GAP 5 mmol/L (5-15); BLOOD UREA NITROGEN 11 mg/dL (7-18); CALCIUM 8.1 MG/DL (8.5-10.1); CARBON DIOXIDE 27 MMOL/L (21-32); CHLORIDE 105 MMOL/L (98-107); CREATININE 0.5 MG/DL (0.55-1.30); POTASSIUM 3.9 MMOL/L (3.5-5.1); SODIUM 137 MMOL/L (136-145)
[2019-08-21] MEDS: NovoLOG Insulin Flexpen SUBQ SCH ×3 (05:33→17:55)
[2019-08-21 08:00] VITALS: BP 142/76
[2019-08-21] MEDS: Dakin's 0.125% Soln (Quarter Strength) 16oz TOPIC SCH (09:07)
[2019-08-21] MEDS: Meropenem 1gm/NS 110ml IVPB SCH ×2 (09:07)
[2019-08-21] MEDS: Pantoprazole Inj IVP SCH ×2 (09:07→20:49)
[2019-08-21] MEDS: Heparin 5000 units/ml inj SUBQ SCH ×2 (09:10→20:49)
[2019-08-21] MEDS: D5 1/2NS 1,000 ML IV SCH ×2 (10:00→17:22)
[2019-08-21 12:00] VITALS: BP 144/79
--- NOTE | 2019-08-21 13:51 | Nephrology Progress Note ---
Assessment/Plan Assessment hypertension DM UTI aspiration pneumonia leukocytosis resolution post sepsis Continued decubitus ulcers bilateral lower limb severe contraction cachexia/weakness Plan CBC, BMP in am Continue to monitor WBC, urine and renal function Subjective Subjective No new events. Objective Objective Last 24 Hour Vital Signs Date Time Temp Pulse Resp B/P (MAP) Pulse Ox O2 Delivery O2 Flow Rate FiO2 08/21/19 12:00 98.0 91 22 144/79 (100) 99 08/21/19 12:00 Nasal Cannula 3.0 08/21/19 08:00 80 08/21/19 08:00 98.0 84 21 142/76 (98) 99 08/21/19 08:00 Nasal Cannula 3.0 08/21/19 07:32 97 Venturi Mask 6.0 35 08/21/19 07:15 97 Nasal Cannula 2.0 28 08/21/19 04:00 97.5 87 20 145/87 (106) 97 08/21/19 04:00 110 08/21/19 04:00 Venturi Mask 8.0 08/21/19 00:00 Venturi Mask 8.0 08/21/19 00:00 97.7 100 20 146/78 (100) 99 08/21/19 00:00 110 08/20/19 20:00 98.0 90 20 128/75 (92) 97 08/20/19 20:00 Venturi Mask 8.0 08/20/19 20:00 90 08/20/19 19:45 98 18 100 Venturi Mask 6.0 35 100 18 97 08/20/19 19:45 97 Venturi Mask 6.0 35 08/20/19 16:00 97.0 93 20 140/80 (100) 95 08/20/19 16:00 Venturi Mask 8.0 08/20/19 15:44 90 Intake and Output 08/20/19 08/21/19 19:00 07:00 Intake Total 915 ml 1290 ml Output Total 1000 ml Balance -85 ml 1290 ml Intake Free Water 200 ml 400 ml IV Total 385 ml 530 ml Tube Feeding 330 ml 360 ml Output Urine Total 1000 ml Laboratory Tests 08/21/19 04:15: White Blood Count 4.6L, Red Blood Count 4.22L, Hemoglobin 9.7L, Hematocrit 31.8L , Mean Corpuscular Volume 75L, Mean Corpuscular Hemoglobin 23.1L, Mean Corpuscular Hemoglobin Concent 30.7L, Red Cell Distribution Width 18.8H, Platelet Count 299, Mean Platelet Volume 6.0L, Neutrophils (%) (Auto) 50.9, Lymphocytes (%) (Auto) 33.1, Monocytes (%) (Auto) 10.4H, Eosinophils (%) (Auto) 4.9H, Basophils (%) (Auto) 0.7, Sodium Level 137, Potassium Level 3.9, Chloride Level 105, Carbon Dioxide Level 27, Anion Gap 5, Blood Urea Nitrogen 11, Creatinine 0.5L, Estimat Glomerular Filtration Rate , Glucose Level 110H, Calcium Level 8.1L Height (Feet): 5 Height (Inches): 6.00 Weight (Pounds): 113 General Appearance: confused EENT: PERRL/EOMI Neck: normal alignment Cardiovascular: normal peripheral pulses, regular rhythm Respiratory/Chest: no respiratory distress Abdomen: non tender, soft Objective Observed resting, nonverbal, noninteractive, head atraumatic, cachectic/thin mech/vent dependent RRR, no murmur no resp distress/lungs clear g-tube feeder/patent aguilera/clear yellow urine bilateral lower limbs severely contracted wounds/Yamilex covered, no saturation or exudate noted afebrile Shira Bain N.P. Aug 21, 2019 13:51
--- NOTE | 2019-08-21 15:42 | Pulmonology Progress Note ---
Assessment/Plan Assessment/Plan Pulmonary Progress Note Assessment/Plan IMPRESSION: 1. Respiratory failure, acute. 2. Hypoxemia. 3. Pneumonia, possible aspiration. 4. History of sepsis, 5. Severe protein-calorie malnutrition, G-tube. 6. Chronic encephalopathy. 7. aspiration 9. contractures PLAN care noted and reviewed in detail respiratory care -PRN suctioning oxygen as is iv antibiotics reviewed care as is for now wound care BIPAP PRN monitor abg for change repeat imaging- pending off load elevate head/aspiration precautions monitor acid base remains guarded not ready for dc to snf likely needs airway impression, plan, and exam edited and reviewed in detail care discussed with senior production supervisor - Subjective Interval Events: overnight events reviewed, improving pulmonary status ROS Limited/Unobtainable: Yes Condition: unchanged EKG Rhythm: Sinus Rhythm Residuals: minimal Tube Feeding Tolerated: yes Objective Vital Signs Noted Labs Test 08/19/19 09:08 08/20/19 03:35 Arterial Blood pH 7.480 (7.350-7.450) Arterial Blood Partial Pressure CO2 36.5 mmHg (35.0-45.0) Arterial Blood Partial Pressure O2 86.4 mmHg (75.0-100.0) Arterial Blood HCO3 26.6 mmol/L (22.0-26.0) Arterial Blood Oxygen Saturation 86.4 % (95-100) Arterial Blood Base Excess 3.0 (-2-2) Rhett Test Positive White Blood Count 4.3 K/UL (4.8-10.8) Red Blood Count 4.17 M/UL (4.70-6.10) Hemoglobin 9.7 G/DL (14.2-18.0) Hematocrit 31.4 % (42.0-52.0) Mean Corpuscular Volume 75 FL (80-99) Mean Corpuscular Hemoglobin 23.2 PG (27.0-31.0) Mean Corpuscular Hemoglobin Concent 30.7 G/DL (32.0-36.0) Red Cell Distribution Width 18.6 % (11.6-14.8) Platelet Count 265 K/UL (150-450) Mean Platelet Volume 6.2 FL (6.5-10.1) Neutrophils (%) (Auto) 52.9 % (45.0-75.0) Lymphocytes (%) (Auto) 31.7 % (20.0-45.0) Monocytes (%) (Auto) 10.8 % (1.0-10.0) Eosinophils (%) (Auto) 4.2 % (0.0-3.0) Basophils (%) (Auto) 0.6 % (0.0-2.0) Sodium Level 138 MMOL/L (136-145) Potassium Level 3.8 MMOL/L (3.5-5.1) Chloride Level 104 MMOL/L (98-107) Carbon Dioxide Level 29 MMOL/L (21-32) Anion Gap 5 mmol/L (5-15) Blood Urea Nitrogen 9 mg/dL (7-18) Creatinine 0.5 MG/DL (0.55-1.30) Estimat Glomerular Filtration Rate mL/min (>60) Glucose Level 100 MG/DL (74-106) Calcium Level 8.1 MG/DL (8.5-10.1) Objective: GENERAL: The patient is chronically ill. poorly alert HEENT: Negative. Mucous membranes are dry. NECK: Supple. LUNGS: Coarse breath sounds, moderate air entry. same with scattered rhonchi- not yet improved CARDIAC: S1, S2. RRR without murmurs, rubs, or gallops. ABDOMEN: Overall soft and nontender. G-tube in place. no distention. no HSM EXTREMITIES: No cyanosis or clubbing. No significant contractures. NEUROLOGICAL: Poorly responsive. rigid SKIN: Noted and reviewed. reviewed and examined Subjective ROS Limited/Unobtainable: No Allergies: Coded Allergies: No Known Allergies (Unverified , 02/25/19) Objective Last 24 Hour Vital Signs Date Time Temp Pulse Resp B/P (MAP) Pulse Ox O2 Delivery O2 Flow Rate FiO2 08/21/19 12:00 98.0 91 22 144/79 (100) 99 08/21/19 12:00 88 08/21/19 12:00 Nasal Cannula 3.0 08/21/19 08:00 80 08/21/19 08:00 98.0 84 21 142/76 (98) 99 08/21/19 08:00 Nasal Cannula 3.0 08/21/19 07:32 97 Venturi Mask 6.0 35 08/21/19 07:15 97 Nasal Cannula 2.0 28 08/21/19 04:00 97.5 87 20 145/87 (106) 97 08/21/19 04:00 110 08/21/19 04:00 Venturi Mask 8.0 08/21/19 00:00 Venturi Mask 8.0 08/21/19 00:00 97.7 100 20 146/78 (100) 99 08/21/19 00:00 110 08/20/19 20:00 98.0 90 20 128/75 (92) 97 08/20/19 20:00 Venturi Mask 8.0 08/20/19 20:00 90 08/20/19 19:45 98 18 100 Venturi Mask 6.0 35 100 18 97 08/20/19 19:45 97 Venturi Mask 6.0 35 08/20/19 16:00 97.0 93 20 140/80 (100) 95 08/20/19 16:00 Venturi Mask 8.0 08/20/19 15:44 90 Intake and Output 08/20/19 08/21/19 19:00 07:00 Intake Total 915 ml 1290 ml Output Total 1000 ml Balance -85 ml 1290 ml Intake Free Water 200 ml 400 ml IV Total 385 ml 530 ml Tube Feeding 330 ml 360 ml Output Urine Total 1000 ml Laboratory Tests 08/21/19 04:15: White Blood Count 4.6L, Red Blood Count 4.22L, Hemoglobin 9.7L, Hematocrit 31.8L , Mean Corpuscular Volume 75L, Mean Corpuscular Hemoglobin 23.1L, Mean Corpuscular Hemoglobin Concent 30.7L, Red Cell Distribution Width 18.8H, Platelet Count 299, Mean Platelet Volume 6.0L, Neutrophils (%) (Auto) 50.9, Lymphocytes (%) (Auto) 33.1, Monocytes (%) (Auto) 10.4H, Eosinophils (%) (Auto) 4.9H, Basophils (%) (Auto) 0.7, Sodium Level 137, Potassium Level 3.9, Chloride Level 105, Carbon Dioxide Level 27, Anion Gap 5, Blood Urea Nitrogen 11, Creatinine 0.5L, Estimat Glomerular Filtration Rate , Glucose Level 110H, Calcium Level 8.1L Current Medications Medications (Trade) Dose Ordered Sig/Mckenzie Route PRN Reason Start Time Stop Time Status Last Admin Dose Admin Acetaminophen (Tylenol) 500 mg Q6H PRN GT Mild Pain/Temp > 100.5 08/16/19 17:30 09/14/19 17:29 Dextrose (Dextrose 50%) 25 ml Q30M PRN IV Hypoglycemia 08/16/19 17:15 09/14/19 19:14 Dextrose (Dextrose 50%) 50 ml Q30M PRN IV Hypoglycemia 08/16/19 17:15 09/14/19 19:14 Dextrose/Sodium Chloride 1,000 ml @ 35 mls/hr Q24H IV 08/17/19 10:00 09/14/19 09:59 08/20/19 10:11 Docusate Sodium (Colace) 100 mg TWICE A DAY GT 08/21/19 18:00 09/20/19 17:59 Heparin Sodium (Porcine) (Heparin 5000 units/ml) 5,000 units EVERY 12 HOURS SUBQ 08/16/19 21:00 09/14/19 20:59 08/21/19 09:10 Insulin Aspart (NovoLOG) Q6HR SUBQ 08/17/19 00:00 09/14/19 20:59 08/20/19 23:43 Meropenem 1 gm/ Sodium Chloride 110 ml @ 220 mls/hr Q12HR IVPB 08/18/19 12:00 08/23/19 11:59 08/21/19 09:07 Morphine Sulfate (Morphine Sulfate) 2 mg Q2H PRN IVP PAIN 4-10 08/16/19 18:30 08/22/19 14:29 Pantoprazole (Protonix) 40 mg EVERY 12 HOURS IVP 08/16/19 21:00 09/14/19 20:59 08/21/19 09:07 Sodium Hypochlorite (Dakin's Quarter Strength) 1 applic DAILY TOPIC 08/17/19 09:00 09/14/19 14:59 08/21/19 09:07 Christopher Rogers MD Aug 21, 2019 15:42
[2019-08-21 16:00] VITALS: BP 148/78
[2019-08-21] MEDS ORDERED: Acetaminophen 650mg/20.3ml GT PRN (17:22)
[2019-08-21] MEDS ORDERED: Morphine Sulfate 2mg/ml Inj(IV/IM USE ONLY) IVP PRN (17:23)
[2019-08-21] MEDS: Docusate 100mg/10ml Liq GT SCH (17:54)
[2019-08-21] MEDS ORDERED: Docusate 100mg/10ml Liq GT SCH (18:00)
[2019-08-21] MEDS ORDERED: Sterile Water Irrig 1000ml IRRIG ONE (18:16)
[2019-08-21] MEDS ORDERED: D5 1/2NS 1000ml IV ONE (18:16)
[2019-08-21 20:00] VITALS: BP 157/94
[2019-08-21] MEDS: Meropenem 1 GM in NS 110 ML IVPB SCH (20:50)
--- NOTE | 2019-08-21 21:12 | Surgery Progress Note ---
Surgery Progress Note Subjective Symptoms: improved Objective Last 24 Hour Vital Signs Date Time Temp Pulse Resp B/P (MAP) Pulse Ox O2 Delivery O2 Flow Rate FiO2 08/21/19 16:00 98.0 97 21 148/78 (101) 98 08/21/19 16:00 Nasal Cannula 3.0 08/21/19 16:00 101 08/21/19 12:00 98.0 91 22 144/79 (100) 99 08/21/19 12:00 88 08/21/19 12:00 Nasal Cannula 3.0 08/21/19 08:00 80 08/21/19 08:00 98.0 84 21 142/76 (98) 99 08/21/19 08:00 Nasal Cannula 3.0 08/21/19 07:32 97 Venturi Mask 6.0 35 08/21/19 07:15 97 Nasal Cannula 2.0 28 08/21/19 04:00 97.5 87 20 145/87 (106) 97 08/21/19 04:00 110 08/21/19 04:00 Venturi Mask 8.0 08/21/19 00:00 Venturi Mask 8.0 08/21/19 00:00 97.7 100 20 146/78 (100) 99 08/21/19 00:00 110 I&O Intake and Output 08/20/19 08/21/19 19:00 07:00 Intake Total 915 ml 1290 ml Output Total 1000 ml Balance -85 ml 1290 ml Intake Free Water 200 ml 400 ml IV Total 385 ml 530 ml Tube Feeding 330 ml 360 ml Output Urine Total 1000 ml Dressing: saturated Wound: other Drains: other Cardiovascular: RSR Respiratory: decreased breath sounds Abdomen: soft, present bowel sounds, non-distended Extremities: no cyanosis, other Laboratory Tests Test 08/21/19 04:15 White Blood Count 4.6 K/UL (4.8-10.8) L Red Blood Count 4.22 M/UL (4.70-6.10) L Hemoglobin 9.7 G/DL (14.2-18.0) L Hematocrit 31.8 % (42.0-52.0) L Mean Corpuscular Volume 75 FL (80-99) L Mean Corpuscular Hemoglobin 23.1 PG (27.0-31.0) L Mean Corpuscular Hemoglobin Concent 30.7 G/DL (32.0-36.0) L Red Cell Distribution Width 18.8 % (11.6-14.8) H Platelet Count 299 K/UL (150-450) Mean Platelet Volume 6.0 FL (6.5-10.1) L Neutrophils (%) (Auto) 50.9 % (45.0-75.0) Lymphocytes (%) (Auto) 33.1 % (20.0-45.0) Monocytes (%) (Auto) 10.4 % (1.0-10.0) H Eosinophils (%) (Auto) 4.9 % (0.0-3.0) H Basophils (%) (Auto) 0.7 % (0.0-2.0) Sodium Level 137 MMOL/L (136-145) Potassium Level 3.9 MMOL/L (3.5-5.1) Chloride Level 105 MMOL/L (98-107) Carbon Dioxide Level 27 MMOL/L (21-32) Anion Gap 5 mmol/L (5-15) Blood Urea Nitrogen 11 mg/dL (7-18) Creatinine 0.5 MG/DL (0.55-1.30) L Estimat Glomerular Filtration Rate mL/min (>60) Glucose Level 110 MG/DL (74-106) H Calcium Level 8.1 MG/DL (8.5-10.1) L Plan Problems: (1) Respiratory distress (2) Sepsis Assessment & Plan: leukocytosis - resolved lactic acidosis - resolved anemia on abx cont current care cxr noted (3) Protein-calorie malnutrition, severe (4) Decubitus ulcer of trochanteric region of left hip Assessment & Plan: Pt presented on admission with contractures, multiple pressure injuries. Hyperpigmentation noted to sacrum from previous pressure injury. Full thickness pressure injury L trochanteric with undermining. Base of wound has 90% burgess slough. Bone is palpable. Wound is malodorous.(L)6cm x (W)4cm x (D) 2cm , Undermining clockwise 12-12 by 3cm @6o'clock. Small amt of purulent brown exudate noted. Resolving pressure injury L ischium. Dry brown eschar with surrounding pink epithelial borders.(L)1cm x (W)1cm. DTPI R ischium . Base of wound is maroon ,fluctuant with red tinged margins. Wound is within previously resolved wound . surrounding hyperpigmentation with scarring. Resolving Full thickness pressure injury idalia R tibia . Base of wound has pink granulation. Edges are adherent and pink. No odor or exudate noted.(L) 5.5cm x (W)0.6cm. Resolving pressure injury plantar R hallux ,Base of wound moist-viable with surrounding pink epithelial. (L)1cm x (W)1.4cm. Full thickness wound lateral L foot extending from base of L 5th metatarsal to L heel and plantar L heel (L)4.5cm x (W)18.5cm. Base of wound has scattered slough ,90% pink granulation.Edges are macerated.Wound is malodorous. Full thickness pressure injury L hallux and plantar aspect. Base of wound has 100% soft necrosis. Wound is malodorous. (L)6.5cm x (W)5.5cm. Tips of L 2nd 3rd and 4th metatarsals has soft necrosis. Full thickness sacral pressure injury noted. Base of wound with some pink granulation and some slough .edges adherent to base of wound. Brown discoloration without fluctuance /induration noted periwound. 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 Base of wound moist-pink , bone is palpable. Periwound is dark without erythema or induration with undermining Full thickness stage 4 pressure injury L ischium .Base of wound some pink granulation and some slough ,erythematous borders. Periwound dark and indurated. Scrotal area area red. Full thickness pressure injury base of scrotum. Base of wound has sloth. Full thickness wound idalia R tibia. [place] granulation at base of wound. Edges adherent. No odor or exudate noted. Periwound without erythema or elevation in skin temp Full thickness wound lateral/plantar L foot. [place] granulation at base of wound with scattered slough.Bone is palpable. Mild odor noted .Small amt seropurulent exudate noted. Edges macerated. Periwound is fluctuant. L st metatarsal flaccid. Full thickness ulcer noted to plantar L foot. Base of wound moist -viable with pink epithelial borders. Periwound is fluctuant. Small amt serous exudate noted. Full thickness wound medial L foot. slough at base of wound,. Macerated borders. Mild odor noted. Tx.Plan: Cleanse all wounds Buttocks with Dakin's 0.125% daysi. Apply Dakin's moist gauze to wounds. Cover with Optifoam drsgs. Cleanse wounds L foot with Dakin's 0.125% daysi. Apply Dakin's moist gauze to wounds. Cover with ABD pads and wrap with Kerlix daily and prn. Cleanse wounds R tibia, and R foot with Dakin's 0.125% daysi. Apply Dakin's moist gauze cover with Abd pads and wrap with Kerlix daily and prn. Apply Moisture Barrier Paste to wound on scrotum. Cover with Optifoam drsg. Daily and prn. APM/KAVON Mattress overlay. Reposition at least every 2hours or as tolerated. Place pillow between knees. Off-load heels with pillow. (5) Ulcer of lower extremity excluding decubitus ulcer Assessment & Plan: appreciate podiatry input cont with wound care as above thank you Rios Quiñones Aug 21, 2019 21:12
[2019-08-22] VITALS: BP 146/93
[2019-08-22] MEDS: NovoLOG Insulin Flexpen SUBQ SCH ×4 (00:50→18:00)
[2019-08-22 04:00] VITALS: BP 131/76
[2019-08-22 07:21] LABS: BASOPHILS % (AUTO) 0.5 % (0.0-2.0); EOSINOPHILS % (AUTO) 3.4 % (0.0-3.0); HEMATOCRIT 32.6 % (42.0-52.0); LYMPHOCYTES % (AUTO) 24.6 % (20.0-45.0); MEAN CORPUSCULAR VOLUME 74 FL (80-99); NEUTROPHILS % (AUTO) 63.5 % (45.0-75.0); PLATELET COUNT 304 K/UL (150-450); RED BLOOD COUNT 4.38 M/UL (4.70-6.10); RED CELL DISTRIBUTION WIDTH 18.4 % (11.6-14.8); WHITE BLOOD COUNT 6.1 K/UL (4.8-10.8)
[2019-08-22 07:58] LABS: ANION GAP 7 mmol/L (5-15); BLOOD UREA NITROGEN 12 mg/dL (7-18); CALCIUM 8.3 MG/DL (8.5-10.1); CARBON DIOXIDE 26 MMOL/L (21-32); CHLORIDE 105 MMOL/L (98-107); CREATININE 0.5 MG/DL (0.55-1.30); POTASSIUM 4.1 MMOL/L (3.5-5.1); SODIUM 138 MMOL/L (136-145)
[2019-08-22 08:00] VITALS: BP 156/92
--- NOTE | 2019-08-22 08:19 | Critical Care Progress Note ---
Assessment/Plan Assessment/Plan IMPRESSION: 1. Respiratory failure, acute. 2. Hypoxemia. 3. Pneumonia, possible aspiration. 4. History of sepsis, 5. Severe protein-calorie malnutrition, G-tube. 6. Chronic encephalopathy. 7. aspiration 9. contractures PLAN care noted and reviewed in detail overnight respiratory care -PRN suctioning still needed oxygen as is iv antibiotics reviewed care as is for now wound care BIPAP PRN follow up CXR for change off load elevate head/aspiration precautions monitor acid base remains guarded and at risk for intubation dc planning impression, plan, and exam edited and reviewed in detail care discussed with tail board worker - Subjective Interval Events: care noted bed elevated some mild congestion needs suctioning ROS Limited/Unobtainable: Yes Condition: stable EKG Rhythm: Sinus Rhythm Residuals: minimal Tube Feeding Tolerated: yes I&O: Intake and Output 08/21/19 08/22/19 18:59 06:59 Intake Total 35 ml 450 ml Balance 35 ml 450 ml Intake Free Water 150 ml IV Total 35 ml Tube Feeding 300 ml Critical Care - Objective Last 24 Hour Vital Signs Date Time Temp Pulse Resp B/P (MAP) Pulse Ox O2 Delivery O2 Flow Rate FiO2 08/22/19 04:00 92 08/22/19 04:00 98.5 92 20 131/76 (94) 100 08/22/19 00:00 104 08/22/19 00:00 98.9 104 22 146/93 (110) 94 08/21/19 21:00 94 Nasal Cannula 2.0 28 08/21/19 20:00 Nasal Cannula 3.0 08/21/19 20:00 104 08/21/19 20:00 98.9 104 22 157/94 (115) 93 08/21/19 16:00 98.0 97 21 148/78 (101) 98 08/21/19 16:00 Nasal Cannula 3.0 08/21/19 16:00 101 08/21/19 12:00 98.0 91 22 144/79 (100) 99 08/21/19 12:00 88 08/21/19 12:00 Nasal Cannula 3.0 Labs: Labs Test 08/19/19 09:08 08/20/19 03:35 08/21/19 04:15 08/22/19 06:05 Arterial Blood pH 7.480 (7.350-7.450) Arterial Blood Partial Pressure CO2 36.5 mmHg (35.0-45.0) Arterial Blood Partial Pressure O2 86.4 mmHg (75.0-100.0) Arterial Blood HCO3 26.6 mmol/L (22.0-26.0) Arterial Blood Oxygen Saturation 86.4 % (95-100) Arterial Blood Base Excess 3.0 (-2-2) Rhett Test Positive White Blood Count 4.3 K/UL (4.8-10.8) 4.6 K/UL (4.8-10.8) 6.1 K/UL (4.8-10.8) Red Blood Count 4.17 M/UL (4.70-6.10) 4.22 M/UL (4.70-6.10) 4.38 M/UL (4.70-6.10) Hemoglobin 9.7 G/DL (14.2-18.0) 9.7 G/DL (14.2-18.0) 10.0 G/DL (14.2-18.0) Hematocrit 31.4 % (42.0-52.0) 31.8 % (42.0-52.0) 32.6 % (42.0-52.0) Mean Corpuscular Volume 75 FL (80-99) 75 FL (80-99) 74 FL (80-99) Mean Corpuscular Hemoglobin 23.2 PG (27.0-31.0) 23.1 PG (27.0-31.0) 22.8 PG (27.0-31.0) Mean Corpuscular Hemoglobin Concent 30.7 G/DL (32.0-36.0) 30.7 G/DL (32.0-36.0) 30.7 G/DL (32.0-36.0) Red Cell Distribution Width 18.6 % (11.6-14.8) 18.8 % (11.6-14.8) 18.4 % (11.6-14.8) Platelet Count 265 K/UL (150-450) 299 K/UL (150-450) 304 K/UL (150-450) Mean Platelet Volume 6.2 FL (6.5-10.1) 6.0 FL (6.5-10.1) 5.7 FL (6.5-10.1) Neutrophils (%) (Auto) 52.9 % (45.0-75.0) 50.9 % (45.0-75.0) 63.5 % (45.0-75.0) Lymphocytes (%) (Auto) 31.7 % (20.0-45.0) 33.1 % (20.0-45.0) 24.6 % (20.0-45.0) Monocytes (%) (Auto) 10.8 % (1.0-10.0) 10.4 % (1.0-10.0) 8.0 % (1.0-10.0) Eosinophils (%) (Auto) 4.2 % (0.0-3.0) 4.9 % (0.0-3.0) 3.4 % (0.0-3.0) Basophils (%) (Auto) 0.6 % (0.0-2.0) 0.7 % (0.0-2.0) 0.5 % (0.0-2.0) Sodium Level 138 MMOL/L (136-145) 137 MMOL/L (136-145) 138 MMOL/L (136-145) Potassium Level 3.8 MMOL/L (3.5-5.1) 3.9 MMOL/L (3.5-5.1) 4.1 MMOL/L (3.5-5.1) Chloride Level 104 MMOL/L (98-107) 105 MMOL/L (98-107) 105 MMOL/L (98-107) Carbon Dioxide Level 29 MMOL/L (21-32) 27 MMOL/L (21-32) 26 MMOL/L (21-32) Anion Gap 5 mmol/L (5-15) 5 mmol/L (5-15) 7 mmol/L (5-15) Blood Urea Nitrogen 9 mg/dL (7-18) 11 mg/dL (7-18) 12 mg/dL (7-18) Creatinine 0.5 MG/DL (0.55-1.30) 0.5 MG/DL (0.55-1.30) 0.5 MG/DL (0.55-1.30) Estimat Glomerular Filtration Rate mL/min (>60) mL/min (>60) mL/min (>60) Glucose Level 100 MG/DL (74-106) 110 MG/DL (74-106) 105 MG/DL (74-106) Calcium Level 8.1 MG/DL (8.5-10.1) 8.1 MG/DL (8.5-10.1) 8.3 MG/DL (8.5-10.1) Objective: GENERAL: The patient is an ill-appearing male, chronically ill. poorly alert HEENT: Negative. Mucous membranes are dry. NECK: Supple. LUNGS: Coarse breath sounds, moderate air entry. occasional rhonchi- CARDIAC: S1, S2. RRR without murmurs, rubs, or gallops. ABDOMEN: Overall soft and nontender. G-tube in place. no distention. no HSM EXTREMITIES: No cyanosis or clubbing. noted contractures. NEUROLOGICAL: Poorly responsive. rigid SKIN: Noted and reviewed. reviewed and examined Accucheck: 102 Tim Andrade MD Aug 22, 2019 08:19
[2019-08-22] MEDS: Docusate 100mg/10ml Liq GT SCH ×2 (08:51→18:19)
[2019-08-22] MEDS: Meropenem 1 GM in NS 110 ML IVPB SCH (08:52)
[2019-08-22] MEDS: Pantoprazole Inj IVP SCH (08:52)
[2019-08-22] MEDS: Heparin 5000 units/ml inj SUBQ SCH (08:57)
[2019-08-22] MEDS ORDERED: Dakin's 0.125% Soln (Quarter Strength) 16oz TOPIC SCH (09:00)
--- NOTE | 2019-08-22 09:48 | Infectious Diseases Prog Note ---
Assessment/Plan Assessment/Plan A 1. proteus/ Klebsiella UTI 2. aspiration pneumonia 3. leucocytosis resolved 4. decubitus ulcers 5. diabetes mellitus 6. hypertension P 1. discontinue meropenem 2. observe off antibiotic Subjective ROS Limited/Unobtainable: Yes Constitutional: Denies: fever Allergies: Coded Allergies: No Known Allergies (Unverified , 02/25/19) Objective Vital Signs Last 24 Hour Vital Signs Date Time Temp Pulse Resp B/P (MAP) Pulse Ox O2 Delivery O2 Flow Rate FiO2 08/22/19 09:00 Nasal Cannula 3.0 08/22/19 08:23 96 Venturi Mask 6.0 35 08/22/19 08:00 97.9 89 20 156/92 (113) 96 08/22/19 04:00 92 08/22/19 04:00 98.5 92 20 131/76 (94) 100 08/22/19 00:00 104 08/22/19 00:00 98.9 104 22 146/93 (110) 94 08/21/19 21:00 94 Nasal Cannula 2.0 28 08/21/19 20:00 Nasal Cannula 3.0 08/21/19 20:00 104 08/21/19 20:00 98.9 104 22 157/94 (115) 93 08/21/19 16:00 98.0 97 21 148/78 (101) 98 08/21/19 16:00 Nasal Cannula 3.0 08/21/19 16:00 101 08/21/19 12:00 98.0 91 22 144/79 (100) 99 08/21/19 12:00 88 08/21/19 12:00 Nasal Cannula 3.0 Height (Feet): 5 Height (Inches): 6.00 Weight (Pounds): 128 General Appearance: no acute distress HEENT: mucous membranes moist Respiratory/Chest: lungs clear, other - oxygen by nasal cannula Cardiovascular: normal rate Abdomen: soft, non tender, other - GT feeding Extremities: no edema, other - contracture Skin: ulcers Neurologic/Psychiatric: aphasia Musculoskeletal: atrophy Laboratory Tests Test 08/22/19 06:05 White Blood Count 6.1 K/UL (4.8-10.8) Red Blood Count 4.38 M/UL (4.70-6.10) L Hemoglobin 10.0 G/DL (14.2-18.0) L Hematocrit 32.6 % (42.0-52.0) L Mean Corpuscular Volume 74 FL (80-99) L Mean Corpuscular Hemoglobin 22.8 PG (27.0-31.0) L Mean Corpuscular Hemoglobin Concent 30.7 G/DL (32.0-36.0) L Red Cell Distribution Width 18.4 % (11.6-14.8) H Platelet Count 304 K/UL (150-450) Mean Platelet Volume 5.7 FL (6.5-10.1) L Neutrophils (%) (Auto) 63.5 % (45.0-75.0) Lymphocytes (%) (Auto) 24.6 % (20.0-45.0) Monocytes (%) (Auto) 8.0 % (1.0-10.0) Eosinophils (%) (Auto) 3.4 % (0.0-3.0) H Basophils (%) (Auto) 0.5 % (0.0-2.0) Sodium Level 138 MMOL/L (136-145) Potassium Level 4.1 MMOL/L (3.5-5.1) Chloride Level 105 MMOL/L (98-107) Carbon Dioxide Level 26 MMOL/L (21-32) Anion Gap 7 mmol/L (5-15) Blood Urea Nitrogen 12 mg/dL (7-18) Creatinine 0.5 MG/DL (0.55-1.30) L Estimat Glomerular Filtration Rate mL/min (>60) Glucose Level 105 MG/DL (74-106) Calcium Level 8.3 MG/DL (8.5-10.1) L Current Medications Medications (Trade) Dose Ordered Sig/Mckenzie Route PRN Reason Start Time Stop Time Status Last Admin Dose Admin Acetaminophen (Tylenol) 500 mg Q6H PRN GT Mild Pain/Temp > 100.5 08/21/19 17:22 09/20/19 17:21 Dextrose (Dextrose 50%) 25 ml Q30M PRN IV Hypoglycemia 08/21/19 17:45 09/14/19 19:14 Dextrose (Dextrose 50%) 50 ml Q30M PRN IV Hypoglycemia 08/21/19 17:45 09/14/19 19:14 Dextrose/Sodium Chloride 1,000 ml @ 35 mls/hr Q24H IV 08/21/19 17:22 09/20/19 17:21 Docusate Sodium (Colace) 100 mg TWICE A DAY GT 08/21/19 18:00 09/20/19 17:59 08/22/19 08:51 Heparin Sodium (Porcine) (Heparin 5000 units/ml) 5,000 units EVERY 12 HOURS SUBQ 08/21/19 21:00 09/14/19 20:59 08/22/19 08:57 Insulin Aspart (NovoLOG) Q6HR SUBQ 08/21/19 18:00 09/14/19 20:59 08/22/19 00:50 Meropenem 1 gm/ Sodium Chloride 110 ml @ 220 mls/hr Q12HR IVPB 08/21/19 21:00 08/23/19 11:59 08/22/19 08:52 Morphine Sulfate (Morphine Sulfate) 2 mg Q2H PRN IVP PAIN 4-10 08/21/19 17:23 08/28/19 17:22 Pantoprazole (Protonix) 40 mg EVERY 12 HOURS IVP 08/21/19 21:00 09/14/19 20:59 08/22/19 08:52 Sodium Hypochlorite (Dakin's Quarter Strength) 1 applic DAILY TOPIC 08/22/19 09:00 09/14/19 14:59 08/22/19 08:52 Lev Pardo MD Aug 22, 2019 09:48
--- NOTE | 2019-08-22 10:12 | Diagnostic Imaging Report ---
Indication: Dyspnea Comparison: 08/19/2019 A single view chest radiograph was obtained. Findings: Patchy infiltrates again noted without significant change. Heart is mildly enlarged. IMPRESSION: No significant change from the previous exam
[2019-08-22 12:00] VITALS: BP 124/59
[2019-08-22 16:00] VITALS: BP 141/80
[2019-08-22] MEDS: D5 1/2NS 1,000 ML IV SCH (17:22)
--- NOTE | 2019-08-22 17:37 | Surgery Progress Note ---
Surgery Progress Note Subjective Symptoms: tolerating diet, voiding well, BM, other Objective Last 24 Hour Vital Signs Date Time Temp Pulse Resp B/P (MAP) Pulse Ox O2 Delivery O2 Flow Rate FiO2 08/22/19 12:00 83 08/22/19 12:00 98.1 61 18 124/59 (80) 98 08/22/19 09:00 Nasal Cannula 3.0 08/22/19 08:23 96 Venturi Mask 6.0 35 08/22/19 08:00 97.9 89 20 156/92 (113) 96 08/22/19 08:00 85 08/22/19 04:00 92 08/22/19 04:00 98.5 92 20 131/76 (94) 100 08/22/19 00:00 104 08/22/19 00:00 98.9 104 22 146/93 (110) 94 08/21/19 21:00 94 Nasal Cannula 2.0 28 08/21/19 20:00 Nasal Cannula 3.0 08/21/19 20:00 104 08/21/19 20:00 98.9 104 22 157/94 (115) 93 I&O Intake and Output 08/21/19 08/22/19 19:00 07:00 Intake Total 480 ml Balance 480 ml Intake Free Water 150 ml Tube Feeding 330 ml Dressing: other Wound: other Drains: other Cardiovascular: RSR Respiratory: decreased breath sounds Abdomen: soft, present bowel sounds, other Extremities: no cyanosis, other Laboratory Tests Test 08/22/19 06:05 White Blood Count 6.1 K/UL (4.8-10.8) Red Blood Count 4.38 M/UL (4.70-6.10) L Hemoglobin 10.0 G/DL (14.2-18.0) L Hematocrit 32.6 % (42.0-52.0) L Mean Corpuscular Volume 74 FL (80-99) L Mean Corpuscular Hemoglobin 22.8 PG (27.0-31.0) L Mean Corpuscular Hemoglobin Concent 30.7 G/DL (32.0-36.0) L Red Cell Distribution Width 18.4 % (11.6-14.8) H Platelet Count 304 K/UL (150-450) Mean Platelet Volume 5.7 FL (6.5-10.1) L Neutrophils (%) (Auto) 63.5 % (45.0-75.0) Lymphocytes (%) (Auto) 24.6 % (20.0-45.0) Monocytes (%) (Auto) 8.0 % (1.0-10.0) Eosinophils (%) (Auto) 3.4 % (0.0-3.0) H Basophils (%) (Auto) 0.5 % (0.0-2.0) Sodium Level 138 MMOL/L (136-145) Potassium Level 4.1 MMOL/L (3.5-5.1) Chloride Level 105 MMOL/L (98-107) Carbon Dioxide Level 26 MMOL/L (21-32) Anion Gap 7 mmol/L (5-15) Blood Urea Nitrogen 12 mg/dL (7-18) Creatinine 0.5 MG/DL (0.55-1.30) L Estimat Glomerular Filtration Rate mL/min (>60) Glucose Level 105 MG/DL (74-106) Calcium Level 8.3 MG/DL (8.5-10.1) L Plan Problems: (1) Respiratory distress (2) Sepsis Assessment & Plan: leukocytosis - resolved lactic acidosis - resolved anemia on abx cont current care cxr noted (3) Protein-calorie malnutrition, severe (4) Decubitus ulcer of trochanteric region of left hip Assessment & Plan: Pt presented on admission with contractures, multiple pressure injuries. Hyperpigmentation noted to sacrum from previous pressure injury. Full thickness pressure injury L trochanteric with undermining. Base of wound has 90% burgess slough. Bone is palpable. Wound is malodorous.(L)6cm x (W)4cm x (D) 2cm , Undermining clockwise 12-12 by 3cm @6o'clock. Small amt of purulent brown exudate noted. Resolving pressure injury L ischium. Dry brown eschar with surrounding pink epithelial borders.(L)1cm x (W)1cm. DTPI R ischium . Base of wound is maroon ,fluctuant with red tinged margins. Wound is within previously resolved wound . surrounding hyperpigmentation with scarring. Resolving Full thickness pressure injury idalia R tibia . Base of wound has pink granulation. Edges are adherent and pink. No odor or exudate noted.(L) 5.5cm x (W)0.6cm. Resolving pressure injury plantar R hallux ,Base of wound moist-viable with surrounding pink epithelial. (L)1cm x (W)1.4cm. Full thickness wound lateral L foot extending from base of L 5th metatarsal to L heel and plantar L heel (L)4.5cm x (W)18.5cm. Base of wound has scattered slough ,90% pink granulation.Edges are macerated.Wound is malodorous. Full thickness pressure injury L hallux and plantar aspect. Base of wound has 100% soft necrosis. Wound is malodorous. (L)6.5cm x (W)5.5cm. Tips of L 2nd 3rd and 4th metatarsals has soft necrosis. Full thickness sacral pressure injury noted. Base of wound with some pink granulation and some slough .edges adherent to base of wound. Brown discoloration without fluctuance /induration noted periwound. 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 Base of wound moist-pink , bone is palpable. Periwound is dark without erythema or induration with undermining Full thickness stage 4 pressure injury L ischium .Base of wound some pink granulation and some slough ,erythematous borders. Periwound dark and indurated. Scrotal area area red. Full thickness pressure injury base of scrotum. Base of wound has sloth. Full thickness wound idalia R tibia. [place] granulation at base of wound. Edges adherent. No odor or exudate noted. Periwound without erythema or elevation in skin temp Full thickness wound lateral/plantar L foot. [place] granulation at base of wound with scattered slough.Bone is palpable. Mild odor noted .Small amt seropurulent exudate noted. Edges macerated. Periwound is fluctuant. L st metatarsal flaccid. Full thickness ulcer noted to plantar L foot. Base of wound moist -viable with pink epithelial borders. Periwound is fluctuant. Small amt serous exudate noted. Full thickness wound medial L foot. slough at base of wound,. Macerated borders. Mild odor noted. Tx.Plan: Cleanse all wounds Buttocks with Dakin's 0.125% daysi. Apply Dakin's moist gauze to wounds. Cover with Optifoam drsgs. Cleanse wounds L foot with Dakin's 0.125% daysi. Apply Dakin's moist gauze to wounds. Cover with ABD pads and wrap with Kerlix daily and prn. Cleanse wounds R tibia, and R foot with Dakin's 0.125% daysi. Apply Dakin's moist gauze cover with Abd pads and wrap with Kerlix daily and prn. Apply Moisture Barrier Paste to wound on scrotum. Cover with Optifoam drsg. Daily and prn. APM/KAVON Mattress overlay. Reposition at least every 2hours or as tolerated. Place pillow between knees. Off-load heels with pillow. (5) Ulcer of lower extremity excluding decubitus ulcer Assessment & Plan: appreciate podiatry input cont with wound care as above thank you Rios Quiñones Aug 22, 2019 17:37
[2019-08-22 20:00] VITALS: BP 135/84
--- NOTE | 2019-08-23 10:24 | Discharge Summary ---
Discharge Summary Discharge Summary _ Discharge summary DATE OF ADMISSION: 08/14/2019 DATE OF DISCHARGE: 08/22/2019 DISCHARGED BY: Dr. Mario REASON FOR ADMISSION: [] 83 years old male, resident of alf facility, with past medical history of hypertension, coronary artery disease, diabetes mellitus, dementia, history of respiratory failure and aspiration pneumonia, dysphagia, G-tube, transferred by EMS for evaluation. Patient had an episode of emesis and then developed dyspnea. Pulse oximetry was in 70 when paramedics arrived. Patient was placed on nonrebreather mask and transported to the emergency department with a saturation reaching the low 90s. Patient by himself was unable to provide any information given severe dementia. Upon evaluation patient had leukocytosis WBC 13.4 hemoglobin 12.6 hematocrit 41. ABG patient was placed on the BiPAP. ABG revealed O2 sat 92% 100% of FiO2. Lactic acid 4.6, repeated 3.7. Stable electrolytes. BUN 27, creatinine 1.0. Glucose 204. Troponin negative. EKG revealed sinus tachycardia. Albumin 2.4. Urinalysis revealed +2 protein, +3 leukocyte esterase, pyuria and bacteria. Chest x-ray demonstrated left pulmonary infiltrate worse compared to the prior exam laboratory work panel vital signs revealed fever 101.1 tachycardia with heart rate 145 tachypnea with respiratory rate 24 and hypoxia with pulse oximetry 90% on 100% FiO2 In emergency department patient pancultured started on empiric antibiotics and IV fluids. Patient was medicated for anxiety and pain placed on the BiPAP and admitted for further management CONSULTANTS: pulmonary Dr. Andrade ID specialist Dr. Gomez surgery Dr. Quiñones podiatry Dr. Valentino [facility]: Patient admitted and continued on IV fluids and empiric antibiotic. Patient initially was on BiPAP. Respiratory care provided with meticulous pulmonary toilet with bronchodilator; patient was suctioned as needed. Patient was followed-up with ABG and chest x-ray. DVT prophylaxis provided. Strict aspiration precaution maintained. Antibiotics provided as per ID specialist recommendations. Blood cultures were negative. Urine culture revealed Proteus mirabilis and Klebsiella pneumonia. Antibiotic regimen optimized as per ID specialist recommendation. Leukocytosis and fever resolved. Patient completed antibiotics for UTI and pneumonia while in the hospital. Surgeon followed for multiply pressure injuries, present on admission. Wound care provided as per surgeon recommendation. Continue wound care at the facility. Web Developer seen and evaluated patient for extensive left lower extremity wounds. Web Developer recommended continue wound care as per general surgeon recommendation. No need for surgical intervention requiring podiatry. Patient will be followed at the facility. Aspiration precautions were maintained. G-tube feeding continued. Tube feeding formula and protein supplements implemented in plan of care as per registered vascular technologist (rvt) recommendation. SNF medication continued. Blood pressure and blood sugar were closely monitored and managed . Initial hypotension resolved. DVT and GI prophylaxis provided. Pain management was addressed as needed. Supportive care provided. Patient eventually was able to be weaned from BiPAP, first to Venturi mask, and then to oxygen via nasal cannula. Patient clinically stabilized and was ready for transfer back to alf [facility] for continuation of care. 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 DISCHARGE INSTRUCTIONS: Patient was discharged to the alf facility. Follow up with medical doctor at the facility. I have been assigned to dictate discharge summary for this account. I was not involved in the patient's management. Chelsey Kumar NP Aug 23, 2019 10:24
== END 2019-08-22 21:30 | DRG 871 ==
LOC: EDBD 07:01 → EMR 07:35 → ICU 09:00 → EDBEDREQ 10:03 → ICU 10:31 → 2W 08-16 16:45 → 2E 08-21 17:40
DX: A41.9 Sepsis, unspecified organism (principal); L89.324 Pressure ulcer of left buttock, stage 4; L89.224 Pressure ulcer of left hip, stage 4; L89.624 Pressure ulcer of left heel, stage 4; J69.0 Pneumonitis due to inhalation of food and vomit; J96.01 Acute respiratory failure with hypoxia; E43 Unspecified severe protein-calorie malnutrition; R53.2 Functional quadriplegia; Z68.1 Body mass index [BMI] 19.9 or less, adult; N39.0 Urinary tract infection, site not specified; G93.40 Encephalopathy, unspecified; Z43.1 Encounter for attention to gastrostomy; E11.9 Type 2 diabetes mellitus without complications; I10 Essential (primary) hypertension; I25.10 Atherosclerotic heart disease of native coronary artery without angina pectoris; B96.4 Proteus (mirabilis) (morganii) as the cause of diseases classified elsewhere; B96.1 Klebsiella pneumoniae [K. pneumoniae] as the cause of diseases classified elsewhere; G30.9 Alzheimer's disease, unspecified; F02.80 Dementia in other diseases classified elsewhere, unspecified severity, without behavioral disturbance, psychotic disturbance, mood disturbance, and anxiety; N40.0 Benign prostatic hyperplasia without lower urinary tract symptoms; M24.50 Contracture, unspecified joint; Z66 Do not resuscitate
CPT/HCPCS: 36415; 36600; 71045; 80048; 80053; 80202; 81003; 82550; 82553; 82803; 82962; 83605; 83735; 84100; 84484; 85025; 87040; 87081; 87086; 87181; 93005; 94640; 94660; 94664; 96361; 96365; 96368; 96375; 99291; J1815; J7620